=== PATIENT | male | born 1940 | race Caucasian/White ===

== ENCOUNTER 2023-03-18 13:53 | Inpatient (IN) | payer MEDICARE, OTHER, SELFPAY ==
[2023-03-18 13:54] VITALS: BP 126/62; PULSE 81; RESP 16; TEMP 36.4; O2SAT 98; BMI 31.6
--- NOTE | 2023-03-18 14:28 | EDS_ITS ---
HPI History of Present Illness Chief Complaint: Lower Extremity Injury Narrative Narrative: 82-year-old male past medical history of chronic left knee pain, states he is supposed to have surgery by Dr. Marroquin that keeps getting put off, was discharged from rehab in [place] yesterday afternoon. He had been there for few weeks after hospitalization. He states he has chronic left knee pain that is worse with weightbearing. He presents with his nephew because he had called his nephew because he was unable to ambulate and get off the toilet this morning. He denies any fevers or chills, but states he has so much pain in his left knee that he has been having problems even using his walker. While he states that he thinks home health care might be coming tomorrow, there are safety concerns regarding him being at home alone and being able to perform his activities of daily living secondary to his chronic left knee pain. [facility] Medical History (Updated 03/18/23 @ 16:43 by Zechariah Post MD) Asthma Benign prostate hyperplasia Chronic kidney disease COPD (chronic obstructive pulmonary disease) Emphysema lung GERD (gastroesophageal reflux disease) HTN (hypertension) Hypothyroid Major depression Muscle weakness Obesity Obstructive sleep apnea Pulmonary disease Pulmonary fibrosis Pulmonary HTN Home Medications albuterol sulfate 90 mcg/actuation aerosol inhaler 2 puff inhalation Q6H PRN ASTHMA 03/18/23 [History Last Taken Unknown] alfuzosin 10 mg tablet,extended release 24 hr 10 mg PO DAILY 03/18/23 [History Last Taken 03/18/23] atorvastatin 10 mg tablet 10 mg PO QHS 03/18/23 [History Last Taken 03/17/23] carboxymethylcellulose sodium 0.5 % eye drops in a dropperette 1 drp EACH EYE DAILY PRN dry eye(s) 03/18/23 [History Last Taken Unknown] cyanocobalamin (vitamin B-12) 1,000 mcg capsule 2,000 mcg PO DAILY 03/18/23 [History Last Taken 03/18/23] diclofenac sodium 1 % topical gel (Voltaren Arthritis Pain) 2 g topical DAILY 03/18/23 [History Last Taken 03/18/23] ergocalciferol (vitamin D2) 1,250 mcg (50,000 unit) capsule (Drisdol) 1,250 mcg PO QWEEK 03/18/23 [History Last Taken Unknown] finasteride 5 mg tablet 5 mg PO DAILY 03/18/23 [History Last Taken 03/18/23] fluticasone propionate 110 mcg/actuation HFA aerosol inhaler (Flovent HFA) 2 inh inhalation BID 03/18/23 [History Last Taken 03/18/23] hydrochlorothiazide 25 mg tablet 25 mg PO DAILY 03/18/23 [History Last Taken 03/17/23] ipratropium bromide 42 mcg (0.06 %) nasal spray 2 spray intranasal DAILY 03/18/23 [History Last Taken 03/18/23] levothyroxine 50 mcg tablet 50 mcg PO DAILY 03/18/23 [History Last Taken 03/18/23] loratadine 10 mg tablet (Allerclear) 10 mg PO DAILY 03/18/23 [History Last Taken 03/18/23] magnesium hydroxide 400 mg/5 mL oral suspension (Pritchard Milk of MagnEventMama) 30 ml PO DAILY PRN constipation 03/18/23 [History Last Taken Unknown] omeprazole 20 mg capsule,delayed release 20 mg PO DAILY 03/18/23 [History Last Taken 03/18/23] ondansetron 4 mg disintegrating tablet 4 mg PO Q8H PRN nausea and vomiting 03/18/23 [History Last Taken Unknown] polyethylene glycol 3350 17 gram/dose oral powder (ClearLax) 17 g PO DAILY 03/18/23 [History Last Taken 03/18/23] tramadol 50 mg tablet 50 mg PO Q8H PRN pain 03/18/23 [History Last Taken Unknown] Allergy/AdvReac Type Severity Reaction Status Date / Time allopurinol Allergy PT UNSURE Verified 03/18/23 15:10 OF REACTION ciprofloxacin Allergy PT UNSURE Verified 03/18/23 15:10 OF REACTION erythromycin base Allergy PT UNSURE Verified 03/18/23 15:10 OF REACTION levofloxacin Allergy PT UNSURE Verified 03/18/23 15:10 OF REACTION paroxetine Allergy PT UNSURE Verified 03/18/23 15:10 OF REACTION Penicillins Allergy PT UNSURE Verified 03/18/23 15:10 OF REACTION Sulfa (Sulfonamide Allergy PT UNSURE Verified 03/18/23 15:10 Antibiotics) OF REACTION Tetracyclines Allergy PT UNSURE Verified 03/18/23 15:10 OF REACTION Social History Smoking Status: Never smoker ROS ROS ED ROS Narrative Constitutional: No fever, no chills. HEENT: No sore throat. No neck pain. No loss of vision. No rhinorrhea. Cardiovascular: No chest pain. No palpitations. No pedal edema. Respiratory: No cough, no shortness of breath. Abdominal: No abdominal pain. No nausea. No vomiting. Genitourinary: No dysuria. No hematuria. Musculoskeletal: No myalgias. Left knee pain worse with standing and weightbearing. Neurologic: No headaches. No dizziness. No lightheadedness. Skin: No rash. No change in color. Psychiatric: No depression. No anxiety. EXAM Physical Exam Narrative Exam Narrative: Afebrile. Vital signs noted. HEENT: Normocephalic. Atraumatic. PERRL, EOMI. Neck soft and supple. No point tenderness or step off. Cardiovascular: Regular rate and rhythm. No murmurs, rubs, or gallops appreciated. Respiratory: No tachypnea. Lungs clear to auscultation bilaterally. Gastrointestinal: Abdomen soft, nontender, with normoactive bowel sounds. No rebound or guarding. Neurological: Awake. Alert. Nonfocal, nonlateralizing. Skin: No rash. Normal color. No pallor. Musculoskeletal: No pedal edema. Full range of motion extremities. However, range of motion of left knee limited secondary to pain. Flexion extension mechanisms intact bilaterally. Const Vital Signs: 03/18/23 13:54 Temperature 97.5 F L Temperature Source Temporal Pulse Rate 81 Respiratory Rate 16 Blood Pressure 126/62 H Blood Pressure Mean 83 Pulse Ox 98 Oxygen Delivery Method Room Air MDM MDM MDM Narrative Medical decision making narrative: I had a lengthy discussion with the patient and his nephew. They are very concerned about him being at home alone, at least overnight. He is willing to be placed in assisted living or in a rehab facility again. We will check baseline laboratories insofar as a CBC, BMP, and urinalysis. I will also obtain an EKG. Patient will be discussed with the hospitalist for observation. Social work is not available in the emergency department currently. I reviewed his laboratory work from today and he has a leukocytosis slightly elevated at 13.4 with hemoglobin normal at 13.8, platelet count slightly elevated at 552 which may be an acute phase reactant. His electrolyte panel is grossly unremarkable except for anion gap low at 3. BUN and creatinine are normal. Urinalysis is positive for urinary tract infection with 25-50 WBCs. I do not feel x-rays of the knee are indicated as he has had chronic pain. However, given his inability to ambulate and generalized weakness, I do feel that he requires admission. He has multiple allergies to multiple antibiotics. His urine will be sent for culture and he was started on aztreonam intravenously. I discussed patient with Dr. Bridges for admission as he will require placement. He would like him placed on the medical surgical floor full admit given his generalized weakness as well. Disposition is admit in stable condition. History & Record Review Discussion w/independent historian: Patient and Family (Nephew) Additional record(s) reviewed:: Prior ED visit Lab Data Attestation: I reviewed the patient's lab results. Labs: Laboratory Results - last 24 hr 03/18/23 03/18/23 15:15 15:23 WBC 13.4 H RBC 4.73 Hgb 13.8 Hct 42.4 MCV 89.6 MCH 29.2 MCHC 32.5 RDW Std Deviation 43.8 RDW Coeff of Josue 13.2 Plt Count 552 H MPV 8.8 Immature Gran % (Auto) 1.500 H Neut % (Auto) 65.7 Lymph % (Auto) 20.7 [place] % (Auto) 9.5 Eos % (Auto) 1.6 Baso % (Auto) 1.0 Absolute Neuts (auto) 8.8 H Absolute Lymphs (auto) 2.78 Nucleated RBC % 0 Sodium 138 Potassium 3.6 Chloride 105 Carbon Dioxide 30.0 Anion Gap 3 L BUN 14 Creatinine 0.87 Estim Creat Clear Calc 45.50 Est GFR (MDRD) Af Amer 107 Est GFR (MDRD) Non-Af 89 BUN/Creatinine Ratio 16.0 Glucose 91 Calcium 10.0 Urine Color Yellow Urine Clarity Cloudy Urine pH 6.0 Ur Specific [place] 1.015 Urine Protein 100 H Urine Glucose (UA) Normal Urine Ketones Negative Urine Occult Blood 50 H Urine Nitrite Positive H Urine Bilirubin Negative Urine Urobilinogen Normal Ur Leukocyte Esterase 500 H Urine RBC 0-5 SEEN Urine WBC 25-50 SEEN Ur Squamous Epith Cells 0 SEEN Urine Bacteria 1+ Urine Mucus 0 SEEN Discharge Plan Dx/Rx/DC Orders Clinical Impression: Inability to perform activities of daily living, UTI (urinary tract infection), Chronic pain of left knee, Weakness, At risk for falls Disposition Disposition: Acute Care [facility]
--- NOTE | 2023-03-18 14:31 | EKG12_ITS ---
Test Reason : Blood Pressure : / mmHG Vent. Rate : 078 BPM Atrial Rate : 078 BPM P-R Int : 212 ms QRS Dur : 130 ms QT Int : 402 ms P-R-T Axes : 023 -78 019 degrees QTc Int : 458 ms Sinus rhythm with 1st degree A-V block Right bundle branch block Left anterior fascicular block Bifascicular block Abnormal ECG Confirmed by JOHNATHON MOODY, LUCY ([id number]), graphic editor AKIKO ORTEGA ([id number]) on 03/19/2023 10:57:24 AM Referred By: Confirmed By:LUCY DIEGO MD
[2023-03-18 15:23] LABS: Absolute Lymphocyte Count 2.78 X10^3/uL (0.83-4.51); Absolute Neutrophil Count 8.8 X10^3/uL (2.0-7.7); Basophil# 0.13 X10^3/uL; Eosinophil# 0.21 X10^3/uL; Eosinophils% 1.6 % (0-5); Hematocrit 42.4 % (40-54); Hemoglobin 13.8 g/dL (13.0-16.5); Lymphocyte # 2.78 X10^3/ul (0.83-4.51); Lymphocyte % 20.7 % (19-41); Mean Corp Hgb Conc 32.5 g/dL (32-36); Mean Corpuscular Hgb 29.2 pg (27.0-32.0); Mean Corpuscular Volume 89.6 fL (80-94); Mean Platelet Vol. 8.8 fl (6.2-12.0); Monocyte# 1.28 X10^3/uL; Monocyte% 9.5 % (0-10); NRBC Flagged by Analyzer 0 % (0-5); Neutrophil # 8.83 X10^3/uL (2.7-7.7); Neutrophil % 65.7 % (47-70); Platelet Count 552 K/mm3 (150-450); RBC Distribution Width CV 13.2 % (11.6-14.6); RBC Distribution Width SD 43.8 fl (35.1-43.9); Red Blood Count 4.73 M/mm3 (4.6-6.2); White Blood Count 13.4 K/mm3 (4.4-11.0)
[2023-03-18 15:26] LABS: Mucous, Urine 0 SEEN /hpf (<or=2+); Squamous Epithelial Cells - UA 0 SEEN /hpf (0-5)
[2023-03-18 15:29] LABS: Color, Urine Yellow (Yellow); Glucose, Dipstick Normal (Normal); Ketone-Dipstick Negative (Negative); Leukocyte Esterase-Dipstick 500 /ul (Negative); Nitrite-Dipstick Positive (Negative); Occult Blood-Urine 50 /ul (Negative); Protein-Dipstick 100 mg/dl (Negative); Specific Gravity, Urine 1.015 (1.002-1.030); Urine Bilirubin Dipstick Negative (Negative); Urine Clarity Cloudy (Clear); Urine Urobilinogen Normal (Normal)
[2023-03-18 15:37] LABS: Red Blood Cells-Urine 0-5 SEEN /hpf (0-5); White Blood Cells 25-50 SEEN /hpf (0-5)
[2023-03-18 15:38] LABS: Anion Gap 3 (5-15); BUN 14 mg/dL (7-18); Chloride 105 mmol/L (98-107); Creatinine, Serum 0.87 mg/dL (0.70-1.30); EST Glomerular Filtration Rate 89 mL/min (>60); Est Glom Filt Rate - Afr Amer 107 mL/min (>60); Glucose 91 mg/dL (74-106); Potassium 3.6 mmol/L (3.5-5.1); Sodium Level 138 mmol/L (136-145)
[2023-03-18 15:39] LABS: Bacteria 1+ /hpf (None Seen)
[2023-03-18] MEDS: Aztreonam 2 GM in 0.9% Normal Saline (100mL MB+) 100 ML IV (16:19)
--- NOTE | 2023-03-18 16:37 | PCM.HP.STD ---
HPI - General General Date of Admission: 03/18/23 Date of Service: 03/18/23 Chief Complaint: Weakness, left knee pain HPI Narrative VIRAJ CROOKS, is a 82 M who presented to [facility] ED on 03/18/2023 from home with worsening left knee pain and debility. Patient seen at bedside in ED. Sitting comfortably in bed, conversing normally, no acute distress. Patient states that he lives at home by himself. Has had a few recent admissions over at [facility] for his chronic knee pain, was seen by orthopedics there at the end of January and current plan is for left knee replacement in May. States he did need to go to a longterm facility on his most recent discharge from [facility], was released home from there about 1 week ago. States he has continued to feel fairly weak at baseline and continues to have severe knee pain with ambulation, has not been able to do much for himself at home. His nephew brought him to the emergency department today because nephew did not feel comfortable with him being at home by himself. Patient currently reports mild left knee pain at rest. Takes primarily Tylenol to help with the pain, occasionally will take tramadol but limits this as best he can. He also uses Voltaren gel on a daily basis and this is helpful. Patient denies any fevers or chills. Denies any difficulty with urinating or decreased urine output. However, he notes that he has required a catheter on both recent admissions, and he went home with a catheter after his last admission. States he saw urology in the office and they were able to take the catheter out a few weeks ago. He denies any suprapubic pain or discomfort. He denies any chest pain, shortness of breath, abdominal pain or discomfort. No other acute concerns this time. [facility] Medical History Asthma Benign prostate hyperplasia Chronic kidney disease COPD (chronic obstructive pulmonary disease) Emphysema lung GERD (gastroesophageal reflux disease) HTN (hypertension) Hypothyroid Major depression Muscle weakness Obesity Obstructive sleep apnea Pulmonary disease Pulmonary fibrosis Pulmonary HTN Home Medications albuterol sulfate 90 mcg/actuation aerosol inhaler 2 puff inhalation Q6H PRN ASTHMA 03/18/23 [History Last Taken Unknown] alfuzosin 10 mg tablet,extended release 24 hr 10 mg PO DAILY urinary retention 03/18/23 [History Last Taken 03/18/23] atorvastatin 10 mg tablet 10 mg PO QHS cholesterol 03/18/23 [History Last Taken 03/17/23] carboxymethylcellulose sodium 0.5 % eye drops in a dropperette 1 drp EACH EYE DAILY PRN dry eye(s) 03/18/23 [History Last Taken Unknown] cyanocobalamin (vitamin B-12) 1,000 mcg capsule 2,000 mcg PO DAILY suppliment 03/18/23 [History Last Taken 03/18/23] diclofenac sodium 1 % topical gel (Voltaren Arthritis Pain) 2 g topical DAILY 03/18/23 [History Last Taken 03/18/23] ergocalciferol (vitamin D2) 1,250 mcg (50,000 unit) capsule (Drisdol) 1,250 mcg PO QWEEK supplement 03/18/23 [History Last Taken Unknown] finasteride 5 mg tablet 5 mg PO DAILY prostate 03/18/23 [History Last Taken 03/18/23] fluticasone propionate 110 mcg/actuation HFA aerosol inhaler (Flovent HFA) 2 inh inhalation BID asthma 03/18/23 [History Last Taken 03/18/23] hydrochlorothiazide 25 mg tablet 25 mg PO DAILY water pill 03/18/23 [History Last Taken 03/17/23] ipratropium bromide 42 mcg (0.06 %) nasal spray 2 spray intranasal DAILY 03/18/23 [History Last Taken 03/18/23] levothyroxine 50 mcg tablet 50 mcg PO DAILY thyroid 03/18/23 [History Last Taken 03/18/23] loratadine 10 mg tablet (Allerclear) 10 mg PO DAILY allergies 03/18/23 [History Last Taken 03/18/23] magnesium hydroxide 400 mg/5 mL oral suspension (Pritchard Milk of Magnesia) 30 ml PO DAILY PRN constipation 03/18/23 [History Last Taken Unknown] omeprazole 20 mg capsule,delayed release 20 mg PO DAILY gerd 03/18/23 [History Last Taken 03/18/23] ondansetron 4 mg disintegrating tablet 4 mg PO Q8H PRN nausea and vomiting 03/18/23 [History Last Taken Unknown] polyethylene glycol 3350 17 gram/dose oral powder (ClearLax) 17 g PO DAILY laxative 03/18/23 [History Last Taken 03/18/23] tramadol 50 mg tablet 50 mg PO Q8H PRN pain 03/18/23 [History Last Taken Unknown] Allergy/AdvReac Type Severity Reaction Status Date / Time allopurinol Allergy PT UNSURE Verified 03/18/23 15:10 OF REACTION ciprofloxacin Allergy PT UNSURE Verified 03/18/23 15:10 OF REACTION erythromycin base Allergy PT UNSURE Verified 03/18/23 15:10 OF REACTION levofloxacin Allergy PT UNSURE Verified 03/18/23 15:10 OF REACTION paroxetine Allergy PT UNSURE Verified 03/18/23 15:10 OF REACTION Penicillins Allergy PT UNSURE Verified 03/18/23 15:10 OF REACTION Sulfa (Sulfonamide Allergy PT UNSURE Verified 03/18/23 15:10 Antibiotics) OF REACTION Tetracyclines Allergy PT UNSURE Verified 03/18/23 15:10 OF REACTION Social History (Updated 03/18/23 @ 18:06 by Cathy Jensen) history of recent travel: No sexually active: No do you think of yourself as: straight/heterosexual current gender identity: male Smoking Status: Never smoker substance use type: does not use ROS Constitutional Constitutional: Reports fatigue and weakness; Denies change in weight, chills or fever(s) Eyes Eyes: Denies change in vision Cardiovascular Cardiovascular: Denies chest pain, dyspnea on exertion or edema Respiratory/Chest Respiratory/Chest: Denies cough, shortness of breath at rest or wheezing Gastrointestinal Gastrointestinal: Denies abdominal pain, constipation, diarrhea, nausea or vomiting Genitourinary Genitourinary: Denies burning urination, difficulty urinating, dysuria, urinary frequency, urinary hesitancy or urinary urgency Musculoskeletal Musculoskeletal: Reports joint pain and joint stiffness; Denies arthralgias, back pain or joint swelling Neurologic Neurologic: Reports abnormal gait; Denies dizziness, focal weakness, headache(s), numbness or paresthesias Vital Signs Vital Signs Vital Signs: 03/18/23 13:54 Temperature 97.5 F L Temperature Source Temporal Pulse Rate 81 Respiratory Rate 16 Blood Pressure 126/62 H Blood Pressure Mean 83 Pulse Ox 98 Oxygen Delivery Method Room Air Weight Weight: 73.482 kg Body Mass Index (BMI) 31.6 Physical Exam Const alert, oriented x3 and no apparent distress Constitutional Narrative: Elderly male, fairly flat affect, sitting up in bed, conversing normally, no acute distress. General Appearance: cooperative and comfortable HEENT normocephalic, head/scalp atraumatic, hearing grossly normal bilaterally, nasal mucous membranes and turbinates normal and moist oral mucous membranes Eyes PERRL, EOMs intact bilaterally and conjunctivae normal Neck full ROM, no lymphadenopathy and supple Lymph Lymphatic: no lymphadenopathy noted Chest inspection of chest normal Resp normal respiratory effort, normal air movement, no use of accessory muscles and clear to auscultation bilaterally Cardio regular rate, regular rhythm, no murmurs and peripheral pulses 2+ throughout GI normal to inspection, nondistended, normoactive bowel sounds, soft to palpation, non-tender and non-distended Negative for no CVA tenderness or external exam normal Bladder / Kidney Exam: No catheter in place and No bladder normal to palpation Back/Spine normal ROM Extremity normal to inspection and no pedal edema Extremity Narrative: Left knee appears grossly normal, no swelling, erythema or tenderness to palpation. Skin no rashes or lesions noted Neuro moves all extremities and no focal motor deficits Speech: speech normal Psych mental status grossly normal Results Lab / Micro Data 03/18/23 15:15 03/18/23 15:15 Labs: Laboratory Results - last 24 hr 03/18/23 15:15: WBC 13.4 H, RBC 4.73, Hgb 13.8, Hct 42.4, MCV 89.6, MCH 29.2, MCHC 32.5, RDW Std Deviation 43.8, RDW Coeff of Josue 13.2, Plt Count 552 H, MPV 8.8, Immature Gran % (Auto) 1.500 H, Neut % (Auto) 65.7, Lymph % (Auto) 20.7, [place] % (Auto) 9.5, Eos % (Auto) 1.6, Baso % (Auto) 1.0, Absolute Neuts (auto) 8.8 H, Absolute Lymphs (auto) 2.78, Nucleated RBC % 0, Sodium 138, Potassium 3.6, Chloride 105, Carbon Dioxide 30.0, Anion Gap 3 L, BUN 14, Creatinine 0.87, Estim Creat Clear Calc 45.50, Est GFR (MDRD) Af Amer 107, Est GFR (MDRD) Non-Af 89, BUN/Creatinine Ratio 16.0, Glucose 91, Calcium 10.0 03/18/23 15:23: Urine Color Yellow, Urine Clarity Cloudy, Urine pH 6.0, Ur Specific [place] 1.015, Urine Protein 100 H, Urine Glucose (UA) Normal, Urine Ketones Negative, Urine Occult Blood 50 H, Urine Nitrite Positive H, Urine Bilirubin Negative, Urine Urobilinogen Normal, Ur Leukocyte Esterase 500 H, Urine RBC 0-5 SEEN, Urine WBC 25-50 SEEN, Ur Squamous Epith Cells 0 SEEN, Urine Bacteria 1+, Urine Mucus 0 SEEN Assessment & Plan Assessment/Plan (1) Weakness: (2) Chronic pain of left knee: (3) UTI (urinary tract infection): PLAN: Plan Patient is an 82-year-old male who presented to [facility] ED on 03/18/2023 from home with worsening left knee pain and debility. 1. Debility, severe left knee osteoarthritis with chronic pain Patient lives at home by himself in [place]. On review of [facility] records, has had 2 admissions in the past 3 to 4 months, both at [facility] for worsening knee pain and functional decline. Required SNF placement after each admission. Nephew brought him to the ED today because he could not get out of bed. Left knee XR at [facility] in January showed tricompartmental OA worst in the medial compartment and moderate in degree, with diffuse osteopenia. Orthopedics followed there, recommendation was for knee replacement; patient states that is currently scheduled for early May. Pain control for the knee has been adequate but he generally feels weak at baseline. ? Admit under inpatient status to [facility]. PT/OT/case management consulted. Anticipate patient will need SNF placement on discharge. Continue tramadol 50 mg every 8 hours as needed, Tylenol as needed, Voltaren gel daily for pain control for knee. 2. Suspected UTI, history of urinary retention, BPH Patient follows with urology at [facility]. Has required Perry catheter on both recent admissions noted above, and was discharged with Perry catheter in place in late January. Apparently passed voiding trial in outpatient setting, Perry has been out for about 2 weeks now. UA on admit showed 500 leukocyte esterase, positive nitrates, 25-50 WBCs, 1+ bacteria. WBC count 13, otherwise afebrile and hemodynamically stable. Unable to find any urine culture data from previous admissions. ? Patient given 1 dose of aztreonam in the ED due to multiple listed allergies. Will start ceftriaxone tomorrow morning, low concern for severe allergy to cephalosporins. Urine culture pending. Trend CBC. Monitor bladder scans every 8 hours for now, have strong suspicion patient will need a Perry catheter during his admission. Renal/bladder ultrasound ordered. Continue home alfuzosin, finasteride. 3. Asthma/COPD on intermittent 2L NC at home, RICKY on 2L at night, pulmonary fibrosis Information obtained from documentation from recent [facility] admission. Satting in mid 90s on room air in the ED, no increased work of breathing noted. Notably intolerant of CPAP for RICKY per history. ? Continue home 2 L nasal cannula as needed here. Continue home albuterol as needed, fluticasone inhaler twice daily, loratadine. Chronic medical conditions: ? Hypertension: Continue home hydrochlorothiazide. ? Hyperlipidemia: Continue on statin. ? GERD: Continue PPI. ? Hand tremor: Left hand greater than right at baseline. Not on medication for this. ? Obesity: BMI 31 on admit. Complicates care, recovery and prognosis. ? Hypothyroidism: Continue home Synthroid. ? Vitamin B12 deficiency: Continue home supplement. DVT prophylaxis: Lovenox CODE STATUS: Full code, verified Expected disposition: SNF, TBD Total clinical time spent by myself addressing the patient's medical issues, reviewing all the data, and collaborating with patient's care team: 55 minutes. Charges/Coding Visit Charges Inpatient E&M: 90219 Init Hosp L2
[2023-03-18 16:45] VITALS: BP 107/53; PULSE 73; RESP 18; TEMP 36.3; O2SAT 94
[2023-03-18 17:52] VITALS: BMI 31.0
[2023-03-18 18:15] VITALS: BP 135/69; PULSE 80; RESP 14; TEMP 36.4; O2SAT 95
[2023-03-18 20:17] VITALS: BP 124/74; PULSE 78; RESP 16; TEMP 36.9; O2SAT 96
[2023-03-18] MEDS: Fluticasone Propionate 110 MCG AER.W.ADAP 2 PUFF INHALATION (22:05)
[2023-03-18] MEDS: Atorvastatin Calcium 10 MG Tablet PO (22:05)
[2023-03-18] MEDS: Albuterol 2.5 MG/3 ML VIAL.NEB. INHALATION (22:39)
[2023-03-18 22:40] VITALS: PULSE 71; RESP 20
[2023-03-19 01:55] VITALS: BP 121/69; PULSE 80; RESP 16; TEMP 36.7; O2SAT 97
--- NOTE | 2023-03-19 06:00 | US_ITS ---
STUDY: RENAL ULTRASOUND - COMPLETE REASON FOR EXAM: Male, 82 years old. h/o BPH, r/o hydronephrosis TECHNIQUE: Ultrasound evaluation of the kidneys was performed with real-time and static grimaldo-scale imaging. COMPARISON: None. FINDINGS: RIGHT KIDNEY: Normal location of the right kidney, which is normal in size. The right kidney measures 10.6 x 3.7 x 4.9 cm. There is a normal cortex of the right kidney. The renal cortex measures 1.6 cm. There is no right renal mass or cyst. There are no right renal calculi. There is mild hydronephrosis of the right kidney. DISTAL RIGHT URETER: There is non-visualization of the distal right ureter. There is no demonstrated right ureterovesical junction calculus. There is a visualized right ureteral jet. LEFT KIDNEY: Normal location of the left kidney, which is normal in size. The left kidney measures 11.5 x 4.6 x 5.7 cm. There is diffuse thinning of the renal cortex. The renal cortex measures 1.5 cm. There is no left renal mass or cyst. There are no left renal calculi. There is mild hydronephrosis of the left kidney. DISTAL LEFT URETER: There is non-visualization of the distal left ureter. There is no demonstrated left ureterovesical junction calculus. There is a visualized left ureteral jet. BLADDER: The distended urinary bladder has a volume of 461 ml. A small to moderate amount of soft tissue is present in the bladder floor most likely representing debris, however herniated components of the prostate gland can also have a similar appearance. The soft tissue is not vascular and does not appear to represent a malignancy, however urologic evaluation or cystoscopy may be required for definitive diagnosis. There is a normal wall thickness of the distended urinary bladder. There is no demonstrated mass within the urinary bladder. There are no demonstrated bladder calculi. US/Kidney and Bladder IMPRESSION: 1. A small to moderate amount of soft tissue is present in the bladder floor most likely representing debris, however herniated components of the prostate gland can also have a similar appearance. The soft tissue is not vascular and does not appear to represent a malignancy, however urologic evaluation or cystoscopy may be required for definitive diagnosis. 2. Mild bilateral hydronephrosis. Electronically Signed: Dariel Snell MD at 10:00 EST ,
[2023-03-19] MEDS: Levothyroxine 50 MCG Tablet PO (06:37)
[2023-03-19 06:44] LABS: Hematocrit 39.1 % (40-54); Hemoglobin 12.6 g/dL (13.0-16.5); Mean Corp Hgb Conc 32.2 g/dL (32-36); Mean Corpuscular Hgb 29.6 pg (27.0-32.0); Mean Platelet Vol. 8.8 fl (6.2-12.0); Platelet Count 503 K/mm3 (150-450); RBC Distribution Width CV 13.3 % (11.6-14.6); RBC Distribution Width SD 45.6 fl (35.1-43.9); Red Blood Count 4.25 M/mm3 (4.6-6.2)
[2023-03-19 07:21] LABS: Anion Gap 5 (5-15); BUN 15 mg/dL (7-18); BUN/Creat Ratio 18.9 RATIO (10-20); Calcium,Total 9.6 mg/dL (8.5-10.1); Chloride 105 mmol/L (98-107); Creatinine, Serum 0.79 mg/dL (0.70-1.30); EST Glomerular Filtration Rate 99 mL/min (>60); Est Glom Filt Rate - Afr Amer 120 mL/min (>60); Estimated Creatinine Clearance 39.58 ml/min; Glucose 100 mg/dL (74-106); Potassium 4.3 mmol/L (3.5-5.1); Sodium Level 140 mmol/L (136-145)
[2023-03-19 09:54] VITALS: BP 109/77; PULSE 79; RESP 18; TEMP 36.8; O2SAT 96
[2023-03-19] MEDS: Cyanocobalamin 500 MCG Tablet 2000 MCG PO (10:03)
[2023-03-19] MEDS: Loratadine 10 MG Tablet PO (10:03)
[2023-03-19] MEDS: Enoxaparin 40 MG/0.4 ML Syringe SC (10:03)
[2023-03-19] MEDS: Pantoprazole Sodium 20 MG Tablet PO (10:03)
[2023-03-19] MEDS: Tamsulosin HCl 0.4 MG Capsule PO (10:04)
[2023-03-19] MEDS: Fluticasone Propionate 110 MCG AER.W.ADAP 2 PUFF INHALATION ×2 (10:04→21:31)
[2023-03-19] MEDS: Polyethylene Glycol 3350 17 GM PACKET PO (10:05)
[2023-03-19] MEDS: Finasteride 5 MG Tablet PO (10:05)
[2023-03-19] MEDS: hydroCHLOROthiazide 25 MG Tablet PO (10:48)
[2023-03-19] MEDS: 0.9% Saline Lock 10 ML Syringe IV (10:48)
[2023-03-19] MEDS: Ceftriaxone 1 GM/50 ML BAG IV (10:48)
--- NOTE | 2023-03-19 10:50 | NURSING ---
This RN bladder scanned pt around 1015 after pt attempted to void and only voided around 40cc. Pt states he still feels like he has to void. PVR was 547cc. This RN informed Dr. Nurys Schofield and she ordered pt to be st. cathed x1 and lets see if flomax helps. Pt agreeable. This RN st. Cathed pt and obtained 500cc.
--- NOTE | 2023-03-19 12:40 | CASEMGMT ---
RN?CM?BODYBUILDER?CM?to room to meet with patient for initial transition planning/care coordination?assessment.?RN?CM?introduced self and role at [facility].? Pt voices understanding and consents to?assessment?at this time.? Pt sitting up in chair in room in no distress at this time.? Pt is A/O at this time and answers all questions appropriately.?? Care providers, pharmacy, and demographics verified/updated at this time. PCP: Dr Kev Newman Specialists: [facility] B[facility]. Dr Miles/ortho- [facility]. Pt has an appt on 03/27 to discuss upcoming surgery on 05/21. Dr Del Real[facility]. Preferred Pharmacy: [facility] Retail Insurance: [facility], [employer] Prescription Benefit:?Yes, [employer] Living Will/HPOA:?Has done LW and HCPOA, who is his nephewCarlos Eduardo LNOK: Nephew/Carlos Eduardo KEE Living Arrangements: Lives alone in one-story home w/5 steps to enter. Pt states he has been in/out of the hospital and has been to [facility] SNF x 2. He just discharged from [facility] to home on Sunday and was admitted to [facility] on Sunday. Pt states he normally can get around well @ home on his own, but when his knee acts up, then he has a difficult time getting up from chair and walking around. Pt states he generally is able to bath and dress himself and he manages his own medications. His groceries are delivered by [employer]. Transportation:?nephew or lady friend DME: ?States has the following DME:?extended tub bench, walker, rollator (he does not use), nebulizer, pulse ox, O2 @ 2 l/m @ HS from [facility]. ?Pt states no need for further DME at this time.? HHC/SNF: Pt was @ [facility] last year and has been to [facility] twice recently. He states he was just discharged home Sunday afternoon. He states [facility] set up HHC, but he was not sure what agency. He had RN CM check the paperwork from [facility]. Noted pt was set up with [facility]: [phone]. He states they also set up aides to come to his home during the day from [facility]: [phone]. He thinks going to an AL would be beneficial and he is aware it would be private-pay. He states he is a Alphonso prefers to go to [facility], stating, If I run out of money, the Alphonso's will pay the difference but was told they do not have any open AL rooms at this time. He states he keeps pushing the date of the surgery out, as he has been having to go to SNF's and he has been trying to schedule the surgeries to 60 days from last SNF stay for benefits. He states he does not know what to do, stating he does not feel he is safe to return home alone. Fatmata KAMARA, made aware of above. PLAN:??TBD. Redd BSN?RN?CM
[2023-03-19 16:08] VITALS: BP 128/72; PULSE 81; RESP 16; TEMP 36.8; O2SAT 97
--- NOTE | 2023-03-19 16:15 | PCM.PN.HOSP ---
Reason for Visit Reason for Visit: Knee pain/falls Subjective Subjective Mr. Gong is an 82 old white male who presents emergency department at [facility] on 03/18/2023 from home with worsening left knee pain and debility. [facility]. The patient reports he was released yesterday or the day prior and was doing quite well however when he got home he had considerable knee pain with ambulation and felt weak. He had not been able to do much for himself. His nephew brought him into the emergency department on the day of admission as he did not feel comfortable with him being at home by himself. Patient reported mild left knee pain at rest. He is scheduled for total knee arthroplasty to be done in May. He denies any difficulty with urinating or decreased urine output however he has had recent Perry catheters at both admission due to urinary retention. He saw urology as an outpatient and they were able to take his catheter out a few weeks ago. In the emergency department his vital signs were unremarkable. He had an elevated white count at 13.4 with thrombocytosis at 552,000. No left shift was present. His chemistry panel was unremarkable. His UA was suggestive of infection showing positive nitrites, leuk esterase, white cells, and 1+ bacteria. Cultures were sent and he was started on antibiotics for suspected urinary tract infection and admitted to the hospital for placement due to stability with decreased independence at home. This morning he is having some urinary retention. He does indicate he was on Flomax previously but it was not on his admitting med reconciliation. I did discuss with him reinitiating this and he thought this would be a good idea. He is unclear as to why this was discontinued previously. Objective Data Objective Data Vital Signs: Vital Signs Temp Pulse Resp BP Pulse Ox O2 Del Method O2 Flow Rate 98.2 F 81 16 128/72 H 97 Room Air 2 03/19/23 16:08 03/19/23 16:08 03/19/23 16:08 03/19/23 16:08 03/19/23 16:08 03/19/23 16:08 03/19/23 02:00 Oxygen Flow Rate (L/min) 2 Oxygen Delivery Method Room Air Weight: 72.121 kg Body Mass Index (BMI) 31.0 Intake & Output: Intake and Output for Last 24 Hours 12/02/23 12/03/23 12/04/23 23:59 23:59 23:59 Intake Total 340 / 590 860 / 860 Output Total 580 / 580 Balance 340 / 590 280 / 280 Lab / Micro Data 03/19/23 05:50 03/19/23 05:50 Labs: Laboratory Results - last 24 hr 03/19/23 05:50: WBC 12.0 H, RBC 4.25 L, Hgb 12.6 L, Hct 39.1 L, MCV 92.0, MCH 29.6, MCHC 32.2, RDW Std Deviation 45.6 H, RDW Coeff of Josue 13.3, Plt Count 503 H, MPV 8.8, Sodium 140, Potassium 4.3, Chloride 105, Carbon Dioxide 30.0, Anion Gap 5, BUN 15, Creatinine 0.79, Estim Creat Clear Calc 39.58, Est GFR (MDRD) Af Amer 120, Est GFR (MDRD) Non-Af 99, BUN/Creatinine Ratio 18.9, Glucose 100, Calcium 9.6 Micro: Microbiology 03/18/23 15:23 Urine, Clean Catch Urine Culture - Preliminary GNR lactose home management supervisor Radiography Diagnostic Testing: Radiology Impression Renal Ultrasound 03/19/23 06:00 IMPRESSION: 1. A small to moderate amount of soft tissue is present in the bladder floor most likely representing debris, however herniated components of the prostate gland can also have a similar appearance. The soft tissue is not vascular and does not appear to represent a malignancy, however urologic evaluation or cystoscopy may be required for definitive diagnosis. 2. Mild bilateral hydronephrosis. Electronically Signed: Dariel Snell MD at 10:00 EST Reading Location ID and State: [address] [place] [address] , Service support , Physical Exam Const alert, oriented x3, no apparent distress, healthy appearing and well nourished Constitutional Narrative: Obese, elderly, white male, sitting up in bed, nursing at bedside, patient appears comfortable and nontoxic, currently trying to urinate HEENT head/scalp atraumatic and moist oral mucous membranes HEENT Narrative: No thrush Head and Scalp: normocephalic Resp normal respiratory effort, no retractions, no use of accessory muscles and clear to auscultation bilaterally Auscultation: Negative for rales, rhonchi or wheezes Cardio regular rate, regular rhythm, S1 normal heart sound, S2 normal heart sound, no murmurs, no rub, no gallops and no clicks GI normal to inspection, nondistended, normoactive bowel sounds, soft to palpation and non-tender Extremity no clubbing, cyanosis or edema Extremity Narrative: Pedal pulses are 2+ Neuro oriented x3, moves all extremities and no focal motor deficits Neuro Narrative: Increased pain with movement of left lower extremity at the knee joint Speech: speech normal Psych affect normal Psych Narrative: Eye contact is good, patient interacts appropriately Assessment & Plan Assessment/Plan (1) At risk for falls: (2) Weakness: (3) Chronic pain of left knee: (4) UTI (urinary tract infection): (5) Inability to perform activities of daily living: PLAN: Plan Suspected urinary tract infection with urinary retention -Start home Flomax -Continue home Proscar -May need Perry catheter depending on urine output and retention -Continue antibiotics -Urine cultures are pending--> await sensitivities and identification and will narrow antibiotics as able with transition to oral Falls/debility -This seems all related to his left lower extremity knee pain -PT/OT following -Case management/social work following -Patient will need placement at discharge and will need a 3 midnight hospitalization with the earliest date of discharge if medically stable being 03/21/2023 Severe left knee osteoarthritis -Plan is for operative intervention with total knee arthroplasty in May -Encourage patient to keep this scheduled History of asthma/COPD/pulmonary fibrosis -Intermittently uses 2 L nasal cannula at home -As needed a aerosols -Continue home loratadine RICKY -Patient's been intolerant of CPAP previously -Continue nocturnal oxygen at 2 L Hypertension -Continue home hydrochlorothiazide Hyperlipidemia -Continue home statin GERD -Continue PPI Hypothyroidism -Continue home Synthroid Vitamin B12 deficiency -Continue home supplement Constipation -Continue home MiraLAX Obesity -BMI is 31.1 -Recommend weight loss -Complicates treatment, prognosis, outcomes DVT prophylaxis -Continue Lovenox CODE STATUS Full code Charges/Coding Visit Charges Inpatient E&M: 20046 Subs Hosp L2
--- NOTE | 2023-03-19 16:18 | CHAPLAIN ---
Type of Pastoral Visit _x__ Initial Visit ___ Follow-up Visit ___ On-call Visit ___ General Patient Visit ___ Spiritual Assessment ___ Family Conference ___ Bereavement ___ Rapid Response ___ Code Blue ___ Other (describe below) Pastoral Care Referral From _x__ Patient ___ Family ___ Nurse ___ Physician ___ Tree [employer] Sh[employer] Worker ___ Ekg Tech ___ Other (describe below) Sacrament/Intervention _x__ Active listening ___ Anointing ___ Nondenominational ___ Bereavement ___ Communion _x__ Dolores exploration ___ _x__ Life review _x__ Prayer ___ Reconciliation ___ Sacrament of Sick _x__ Supportive presence ___ Wedding ___ Other (describe below) Pastoral Comments patient is welcoming, answers questions, and asks questions; patient relates some life experiences and dolores encounters; pt welcomes presence for someone to talk with and for the prayers
[2023-03-19] MEDS: Acetaminophen 325 MG Tablet 650 MG PO (16:35)
--- NOTE | 2023-03-19 17:30 | CASEMGMT ---
Social Work Handoff received from Latasha TREVINO CM of likely need for placement at time of discharge. Discussions occurred regarding SNF and assisted living. Concern present as patient is within a 100 day benefit period and was just discharged from [facility] on Sunday03.17.23. This mortgage or loan underwriter spoke with Barbara at [facility]. Patient's original admit date was 01.04.23. Used 26 days the first episode, and 27 days the second episode, discharging home on 03.17.23. Patient has 47 days left of 100 day benefit period. Per Barbara, there are no skilled beds available, half-way care is full, as well as assisted living. Patient was given an application for the independent living while he was a skilled resident, but patient did not follow through with the application. Barbara discussed that once someone is part of the living community, those individuals do have some president over community based referrals. Met with patient to review discharge planning. Reviewed what found about about patient's available SNF benefits. Patient reports to be aware of this, but still not sure what to do, as wants to have surgery and would like to have full benefit period for the upcoming surgery. Educated patient to get a new benefit period will need to be out of the hospital as an inpatient or a SNF for 60 days. Discussed assisted living, which patient reports to have money for but reports is not ready to spend it as feels might need the money in the future for intermediate accountant assisted care needs. Broached the independent living application for the [facility], which patient reports to have but has not gotten around to doing as wants someone to scribe for the patient. Patient appeared to have a hard time with making a decision on what to do, but did take the list of SNF options this mortgage or loan underwriter provided from [facility]. Patient's nephew Carlos Eduardo Weir arrived to the room and joined conversation. Carlos Eduardo also looked at the list. Reviewed with Carlos Eduardo the education this mortgage or loan underwriter provided to patient. This mortgage or loan underwriter discussed with patient that is is easy to worry about intermediate accountant needs, but to help make current decision making easier, encouraged the focus to be on the here and now; what does patient feel to need to be safe at time of discharge. Reinforced that cannot change Medicare Rules, and have to work within the constraints of what is available. Patient and Carlos Eduardo indicated need to further discuss. Informed patient would be back tomorrow for choices as will need to continue with discharge planning. Plan: SW to follow up again with patient on 03.20.23 to determine referrals to SNF vs Assisted Living. -CAMERON Minor
[2023-03-19] MEDS: Glycerin/Hypromellose/PEG400 15 ml Bottle 1 DRP EACH EYE ×2 (17:55→21:31)
[2023-03-19] MEDS: Menthol/Lanolin/Calamine/Znox 113 GM Tube 1 APPLIC TOPICAL (21:31)
[2023-03-19] MEDS: Atorvastatin Calcium 10 MG Tablet PO (21:31)
[2023-03-19 21:49] VITALS: BP 112/72; PULSE 78; RESP 18; TEMP 36.5; O2SAT 95
[2023-03-20] MEDS: Glycerin/Hypromellose/PEG400 15 ml Bottle 1 DRP EACH EYE ×6 (02:08→23:40)
[2023-03-20 03:49] VITALS: BP 120/68; PULSE 73; RESP 16; TEMP 36.6; O2SAT 94
[2023-03-20] MEDS: Levothyroxine 50 MCG Tablet PO (05:40)
[2023-03-20 07:29] LABS: Absolute Lymphocyte Count 2.34 X10^3/uL (0.83-4.51); Absolute Neutrophil Count 5.5 X10^3/uL (2.0-7.7); Basophil# 0.08 X10^3/uL; Basophil% 0.9 % (0-1); Eosinophil# 0.29 X10^3/uL; Eosinophils% 3.1 % (0-5); Hematocrit 39.5 % (40-54); Hemoglobin 12.8 g/dL (13.0-16.5); Lymphocyte # 2.34 X10^3/ul (0.83-4.51); Lymphocyte % 25.2 % (19-41); Mean Corp Hgb Conc 32.4 g/dL (32-36); Mean Corpuscular Hgb 29.3 pg (27.0-32.0); Mean Corpuscular Volume 90.4 fL (80-94); Mean Platelet Vol. 8.3 fl (6.2-12.0); Monocyte# 0.94 X10^3/uL; Monocyte% 10.1 % (0-10); NRBC Flagged by Analyzer 0 % (0-5); Neutrophil # 5.54 X10^3/uL (2.7-7.7); Neutrophil % 59.5 % (47-70); Platelet Count 461 K/mm3 (150-450); RBC Distribution Width CV 13.3 % (11.6-14.6); RBC Distribution Width SD 44.6 fl (35.1-43.9); Red Blood Count 4.37 M/mm3 (4.6-6.2); White Blood Count 9.3 K/mm3 (4.4-11.0)
[2023-03-20 08:25] VITALS: BP 110/70; PULSE 77; RESP 18; TEMP 36.9; O2SAT 93
[2023-03-20] MEDS: Enoxaparin 40 MG/0.4 ML Syringe SC (08:29)
[2023-03-20] MEDS: Finasteride 5 MG Tablet PO (08:30)
[2023-03-20] MEDS: Loratadine 10 MG Tablet PO (08:30)
[2023-03-20] MEDS: Menthol/Lanolin/Calamine/Znox 113 GM Tube 1 APPLIC TOPICAL ×2 (08:30→21:04)
[2023-03-20] MEDS: Acetaminophen 325 MG Tablet 650 MG PO ×3 (08:30→21:03)
[2023-03-20] MEDS: Pantoprazole Sodium 20 MG Tablet PO (08:30)
[2023-03-20] MEDS: Polyethylene Glycol 3350 17 GM PACKET PO (08:30)
[2023-03-20] MEDS: hydroCHLOROthiazide 25 MG Tablet PO (08:30)
[2023-03-20] MEDS: Cyanocobalamin 500 MCG Tablet 2000 MCG PO (08:30)
[2023-03-20] MEDS: Tamsulosin HCl 0.4 MG Capsule PO (08:30)
[2023-03-20] MEDS: 0.9% Saline Lock 10 ML Syringe IV ×2 (09:53→16:41)
[2023-03-20] MEDS: Ceftriaxone 1 GM/50 ML BAG IV (09:53)
[2023-03-20] MEDS: Fluticasone Propionate 110 MCG AER.W.ADAP 2 PUFF INHALATION ×2 (10:04→21:03)
--- NOTE | 2023-03-20 10:33 | CASEMGMT ---
RN SHIMA NOTE: Call placed to [facility] @ [phone]. They were notified pt has been admitted to [facility] and that SNF is anticipated @ discharge, but not confirmed. She asks that they be notified once final d/c plan is confirmed. Call placed to [facility] and spoke w/Jade. She states she spoke w/pt on Mar 16 and talked about their rates, but they had not heard back from pt, so no services were set up. Redd BUCKLEY RN CM
--- NOTE | 2023-03-20 11:10 | CASEMGMT ---
Social Work Presented to patient's room to obtain preferences for aftercare. Patient reports has made no choices. Gently reminded patient of the plan for patient and his nephew to discuss choices and this personal lines underwriter would be back today to get said choices. Patient voiced would have to be later today as the nephew is working, and had not had a chance to discuss. Reminded patient this personal lines underwriter left patient and nephew last evening with list and directions to discuss further. Patient agreed this did happen. Patient reported would call the nephew and discuss, and this personal lines underwriter can come back after noon. Patient did comment this is happening fast. Educated that have to work on discharge planning, so it is an expectation that referrals need to be started today. [facility]. During social work visit, patient talkative, quite reflective on life experiences and where patient's purpose in life is at now. Patient processed what it is like to age, and worries about the future. This personal lines underwriter did explore whether patient has thought of suicide. Patient reported has thought of suicide, but not my thing and would not be something patient has an intent to do. Patient denies any history of suicide attempts or intent. Reports to know his nephew and a few cousins would be upset if patient by suicide and would not want to do this to the family. Discussed with patient finding lori in small things each day, which patient reports to still feel able to do. Patient reports though, is at the age where deciding whether would want to be resuscitated if heart stopped beating. Much emotional support provided to patient this visit. Patient voiced knowing that has things to offer others and stated I even fascinated you during the conversation about patient's life and hobbies. Plan: Working on SNF placement and patient knows to provide choices today. -CAMERON Minor
--- NOTE | 2023-03-20 11:29 | PN.HOSP_ITS ---
Reason for Visit Reason for Visit: Debility Subjective Subjective No issues overnight. We did require Perry placement yesterday afternoon secondary to urinary retention. I suspect this is chronic and based on his history he has frequent issues with urinary retention and follows with Dr. Shelly rivas at [facility] for urological issues. Objective Data Objective Data Vital Signs: Vital Signs Temp Pulse Resp BP Pulse Ox O2 Del Method O2 Flow Rate 98.5 F 77 18 110/70 93 Room Air 2 03/20/23 08:25 03/20/23 08:25 03/20/23 08:25 03/20/23 08:25 03/20/23 08:25 03/20/23 08:25 03/19/23 02:00 Oxygen Flow Rate (L/min) 2 Oxygen Delivery Method Room Air Weight: 72.121 kg Body Mass Index (BMI) 31.0 Intake & Output: Intake and Output for Last 24 Hours 03/18/23 03/19/23 03/20/23 23:59 23:59 23:59 Intake Total 340 / 590 1100 / 1100 50 / 50 Output Total 780 / 780 1150 / 1150 Balance 340 / 590 320 / 320 -1100 / -1100 Lab / Micro Data 03/20/23 07:22 03/19/23 05:50 Labs: Laboratory Results - last 24 hr 03/20/23 07:22: WBC 9.3, RBC 4.37 L, Hgb 12.8 L, Hct 39.5 L, MCV 90.4, MCH 29.3, MCHC 32.4, RDW Std Deviation 44.6 H, RDW Coeff of Josue 13.3, Plt Count 461 H, MPV 8.3, Immature Gran % (Auto) 1.200 H, Neut % (Auto) 59.5, Lymph % (Auto) 25.2, Gibson % (Auto) 10.1 H, Eos % (Auto) 3.1, Baso % (Auto) 0.9, Absolute Neuts (auto) 5.5, Absolute Lymphs (auto) 2.34, Nucleated RBC % 0 Micro: Microbiology 03/18/23 15:23 Urine, Clean Catch Urine Culture - Preliminary GNR lactose sap abap developer Physical Exam Const alert, oriented x3, no apparent distress, healthy appearing and well nourished Constitutional Narrative: Obese, elderly, white male, sitting up in bed, watching television, patient appears comfortable and nontoxic HEENT normocephalic, head/scalp atraumatic, hearing grossly normal bilaterally and moist oral mucous membranes Resp normal respiratory effort, normal air movement, no retractions, no use of accessory muscles and clear to auscultation bilaterally Auscultation: Negative for rales, rhonchi or wheezes Cardio regular rate, regular rhythm, S1 normal heart sound, S2 normal heart sound, no murmurs, no rub, no gallops and no clicks GI normal to inspection, nondistended, normoactive bowel sounds, soft to palpation and non-tender Extremity normal to inspection, no clubbing, cyanosis or edema and no pedal edema Extremity Narrative: Pedal pulses are 2+ Neuro oriented x3, moves all extremities and no focal motor deficits Speech: speech normal Psych mental status grossly normal and affect normal Psych Narrative: Eye contact is good, patient interacts appropriately Assessment & Plan Assessment/Plan (1) At risk for falls: (2) Weakness: (3) Chronic pain of left knee: (4) UTI (urinary tract infection): (5) Inability to perform activities of daily living: PLAN: Plan Gram-negative urinary tract infection with urinary retention -Continue Flomax -Continue home Proscar -Perry placed and will discharge with Perry and have him follow-up with Dr. Rashaun cassidy after discharge--> his urologist -Ultrasound did show some mild bilateral hydro with catheter not in place -Cultures thus far growing gram-negative madison lactose sap abap developer with sensitivities and identification is pending -Continue antibiotics as ordered Falls/debility -This seems all related to his left lower extremity knee pain -PT/OT following -Case management/social work following -Patient will need placement at discharge and will need a 3 midnight hospitalization with the earliest date of discharge if medically stable being 03/21/2023 Severe left knee osteoarthritis -Plan is for operative intervention with total knee arthroplasty in May -Encourage patient to keep this scheduled History of asthma/COPD/pulmonary fibrosis -Intermittently uses 2 L nasal cannula at home -As needed a aerosols -Continue home loratadine RICKY -Patient's been intolerant of CPAP previously -Continue nocturnal oxygen at 2 L Hypertension -Continue home hydrochlorothiazide Hyperlipidemia -Continue home statin GERD -Continue PPI Hypothyroidism -Continue home Synthroid Vitamin B12 deficiency -Continue home supplement Constipation -Continue home MiraLAX Obesity -BMI is 31.1 -Recommend weight loss -Complicates treatment, prognosis, outcomes DVT prophylaxis -Continue Lovenox CODE STATUS Full code Charges/Coding Visit Charges Inpatient E&M: 35897 Subs Hosp L2
--- NOTE | 2023-03-20 14:00 | CASEMGMT ---
Social Work - Discharge Planning Received call from Daylin with [facility] inquiring whether patient will be returning home or to a SNF. Informed that DC planning is still in process. Daylin reports will not close out patient's referral with [facility] just yet then. Daylin asks for update on final decision. Call back number is [phone]. Note, during conversation with patient and patient's nephew on 03.19.23, both asked about [facility] and this option for rehab. Updated at that time unsure what bed availability would be like, but this curriculum writer can check. Reinforced at that time, this would be a short term option only. Message left for Radha in TCU of inquiry. This curriculum writer heard back from Radha at [facility] today and patient can be accepted, with a bed available on 03.21.23. Returned to patient's room to finalize choices for SNF. Patient reports talked with the nephew and it would be closer for patient's nephew if patient chose to go with a [place] facility, but patient also thinking of the aftercare needs, and being closer to [place] might be better for follow up. Educated that patient can be accepted to [facility], but reinforced this is short term. Patient vacillated back and forth on this option, initially wanting to do this, and then changing mind that maybe wants to go somewhere and settle in until has surgery in May. Patient reported that he nor the nephew have a lot of knowledge of the facilities and wishes this curriculum writer knew more, such as if the food is good. After discussion, patient asked this curriculum writer to start at the top of the list. Choices are as follows: [facility], [facility] in [place], and then [facility]. Patient does want to know if either of the community based SNFs provide for transportation to appointments. Agreed to inquire on this, but if not would be patient's responsibility to pay for ambulette services. Patient reports to be familiar with this from prior stays at [facility]. Patient reports to have money to pay for things, but trying to be smart with financial choices. Patient talkative and admits to going in tangents in conversation. Patient expressed appreciation for giving patient time to sort through thoughts. Gently discussed with patient that it is a positive thing to be future focused, and wanting to ensure stability for self, but there can be tipping point where this become ruminations and worry, turning into anxiety. Patient agreed that tends to worry. Encouraged patient to focus on one thing at at time, and on most immediate need when thoughts start to become overwhelming with uncertainly on what choices to make. Updated DC medical billing assistant to community based SNF choices, and question about transportation. Plan: Working on SNF and referrals are being sent out today. [facility] but patient's third choice. -CAMERON Minor
--- NOTE | 2023-03-20 14:09 | CASEMGMT ---
Addendum entered by Jaylny Patten 03/20/23 16:54: Discharge Planning Patient has been accepted by [facility]. SW updated. Jaylyn Patten, Discharge Planning Asst. Original Note: [facility] Jaylyn Patten, Discharge Planning Asst.
[2023-03-20 14:31] VITALS: BP 93/67; PULSE 79; RESP 18; TEMP 36.9; O2SAT 95
[2023-03-20 18:44] VITALS: BP 106/64; PULSE 79
[2023-03-20 20:15] VITALS: BP 129/73; PULSE 76; RESP 16; TEMP 36.6; O2SAT 95
[2023-03-20] MEDS: Atorvastatin Calcium 10 MG Tablet PO (21:03)
[2023-03-20] MEDS: traMADol 50 MG Tablet PO (23:57)
[2023-03-21 02:30] VITALS: BP 119/71; PULSE 71; RESP 16; TEMP 36.8; O2SAT 98
[2023-03-21] MEDS: Glycerin/Hypromellose/PEG400 15 ml Bottle 1 DRP EACH EYE ×4 (02:54→14:33)
[2023-03-21] MEDS: Levothyroxine 50 MCG Tablet PO (05:31)
[2023-03-21] MEDS: Acetaminophen 325 MG Tablet 650 MG PO ×2 (05:31→20:16)
[2023-03-21 07:22] VITALS: O2SAT 98
[2023-03-21 07:30] VITALS: BP 139/60; BP 139/80; PULSE 65; RESP 18; TEMP 36.5; O2SAT 100
[2023-03-21 08:48] LABS: Absolute Lymphocyte Count 2.57 X10^3/uL (0.83-4.51); Absolute Neutrophil Count 5.3 X10^3/uL (2.0-7.7); Basophil# 0.08 X10^3/uL; Basophil% 0.8 % (0-1); Eosinophil# 0.32 X10^3/uL; Eosinophils% 3.4 % (0-5); Hematocrit 39.1 % (40-54); Hemoglobin 12.5 g/dL (13.0-16.5); Lymphocyte # 2.57 X10^3/ul (0.83-4.51); Mean Corpuscular Hgb 29.2 pg (27.0-32.0); Mean Corpuscular Volume 91.4 fL (80-94); Mean Platelet Vol. 9.3 fl (6.2-12.0); Monocyte% 11.6 % (0-10); NRBC Flagged by Analyzer 0 % (0-5); Neutrophil # 5.28 X10^3/uL (2.7-7.7); Neutrophil % 55.4 % (47-70); Platelet Count 497 K/mm3 (150-450); RBC Distribution Width CV 13.4 % (11.6-14.6); RBC Distribution Width SD 45.1 fl (35.1-43.9); Red Blood Count 4.28 M/mm3 (4.6-6.2); White Blood Count 9.5 K/mm3 (4.4-11.0)
[2023-03-21 09:17] LABS: Anion Gap 6 (5-15); BUN 12 mg/dL (7-18); Calcium,Total 9.1 mg/dL (8.5-10.1); Chloride 103 mmol/L (98-107); Creatinine, Serum 0.63 mg/dL (0.70-1.30); EST Glomerular Filtration Rate 129 mL/min (>60); Est Glom Filt Rate - Afr Amer 156 mL/min (>60); Estimated Creatinine Clearance 39.58 ml/min; Glucose 95 mg/dL (74-106); Potassium 3.9 mmol/L (3.5-5.1); Sodium Level 135 mmol/L (136-145)
--- NOTE | 2023-03-21 09:25 | TREXTCAR_ITS ---
Diet Diet Order/Speech Therapy: 03/18/23 17:44 Diet: Cardiac - Heart Healthy Food consistency:: Easy to Chew Liquid Consistency:: Regular/Thin Is pt able to select menu?: Yes Routine Orders/Code Status Suppository Type: Dulcolax 10mg Suppository Frequency: Daily PRN Wound(s) Rt swift: Wound Type: Abrasion coccyx: Wound Type: Pressure Injury Therapies Weight Bearing: Weight bearing as tolerated Extremity Affected:: Left Lower Physical Therapy: Eval and Treat Occupational Therapy: Eval and Treat Speech Therapy: Eval and Treat Problem/Diagnosis (1) UTI (urinary tract infection): Status: Acute Code(s): N39.0 - Urinary tract infection, site not specified Allergies/Procedures Done in Hospital Allergies allopurinol Allergy (Verified 03/18/23 15:10) PT UNSURE OF REACTION ciprofloxacin Allergy (Verified 03/18/23 15:10) PT UNSURE OF REACTION erythromycin base Allergy (Verified 03/18/23 15:10) PT UNSURE OF REACTION levofloxacin Allergy (Verified 03/18/23 15:10) PT UNSURE OF REACTION paroxetine Allergy (Verified 03/18/23 15:10) PT UNSURE OF REACTION Penicillins Allergy (Verified 03/18/23 15:10) PT UNSURE OF REACTION Sulfa (Sulfonamide Antibiotics) Allergy (Verified 03/18/23 15:10) PT UNSURE OF REACTION Tetracyclines Allergy (Verified 03/18/23 15:10) PT UNSURE OF REACTION Type of Care/Length of Stay Estimated LOS: Convalescent Care Less Than 30 days Type of Care Needed: Skilled Rehab Potential: Good Prognosis: Good Additional Orders/Day of Discharge Day of Discharge: 03/21/23 Discharge Plan Admission Admit Date/Time: 03/18/23 16:50 Primary Reason for Your Visit: Asymptomatic bacteriuria. Debility due to severe knee arthritis Attending Provider: Yusuf Nelson Primary Care Provider: CARMEN HEAD Consulting Providers: Channing Bridges; Radha Schofield; Will Roque Instructions Additional Instructions / Restrictions: Discharge with Perry catheter. Patient on Flomax. Follow-up outpatient urologi st Dr. Bravo for BPH at [facility] for spontaneous voiding trial. Discharge Orders/Prescriptions Prescriptions: New acetaminophen 325 mg Tablet 650 mg PO Q6H PRN PRN (Reason: Pain 1-10 Or Fever>100.7) Qty: 0 0RF tamsulosin 0.4 mg Capsule 0.4 mg PO DAILY@0830 Qty: 0 0RF Continued albuterol sulfate 90 mcg/actuation HFA aerosol inhaler 2 puff INHALATION Q6H PRN (Reason: ASTHMA) atorvastatin 10 mg tablet 10 mg PO QHS finasteride 5 mg tablet 5 mg PO DAILY ipratropium bromide 42 mcg (0.06 %) spray,non-aerosol 2 spray INTRANASAL DAILY levothyroxine 50 mcg tablet 50 mcg PO DAILY omeprazole 20 mg capsule,delayed release(DR/EC) 20 mg PO DAILY tramadol 50 mg tablet 50 mg PO Q8H PRN (Reason: pain) hydrochlorothiazide 25 mg tablet 25 mg PO DAILY fluticasone propionate [Flovent HFA] 110 mcg/actuation HFA aerosol inhaler 2 inh inhalation BID loratadine [Allerclear] 10 mg tablet 10 mg PO DAILY polyethylene glycol 3350 [ClearLax] 17 gram/dose powder 17 g PO DAILY cyanocobalamin (vitamin B-12) 1,000 mcg capsule 2,000 mcg PO DAILY ergocalciferol (vitamin D2) [Drisdol] 1,250 mcg (50,000 unit) capsule 1,250 mcg PO QWEEK diclofenac sodium [Voltaren Arthritis Pain] 1 % gel 2 g topical DAILY Rx Instructions: TO LEFT KNEE ondansetron 4 mg tablet,disintegrating 4 mg PO Q8H PRN (Reason: nausea and vomiting) carboxymethylcellulose sodium 0.5 % dropperette 1 drp EACH EYE DAILY PRN (Reason: dry eye(s)) Discontinued alfuzosin 10 mg tablet extended release 24 hr 10 mg PO DAILY magnesium hydroxide [Pritchard Milk of Magnesia] 400 mg/5 mL suspension 30 ml PO DAILY PRN (Reason: constipation) Referrals / Follow Up: CARMEN HEAD [Other] - In 1 Week CARMEN HEAD [Other] Disposition Disposition (needs filled in before D/C Order can be placed): [facility]
[2023-03-21] MEDS: Tamsulosin HCl 0.4 MG Capsule PO (09:45)
[2023-03-21] MEDS: Menthol/Lanolin/Calamine/Znox 113 GM Tube 1 APPLIC TOPICAL ×2 (09:45→20:13)
[2023-03-21] MEDS: Fluticasone Propionate 110 MCG AER.W.ADAP 2 PUFF INHALATION ×2 (09:46→20:13)
[2023-03-21] MEDS: Loratadine 10 MG Tablet PO (09:46)
[2023-03-21] MEDS: Enoxaparin 40 MG/0.4 ML Syringe SC (09:47)
[2023-03-21] MEDS: hydroCHLOROthiazide 25 MG Tablet PO (09:47)
[2023-03-21] MEDS: Finasteride 5 MG Tablet PO (09:48)
[2023-03-21] MEDS: Pantoprazole Sodium 20 MG Tablet PO (09:48)
[2023-03-21] MEDS: Polyethylene Glycol 3350 17 GM PACKET PO (09:48)
[2023-03-21] MEDS: Cyanocobalamin 500 MCG Tablet 2000 MCG PO (09:49)
[2023-03-21] MEDS: Ceftriaxone 1 GM/50 ML BAG IV (10:06)
--- NOTE | 2023-03-21 10:42 | CASEMGMT ---
Social Work SW met with pt to discuss advance directives.? Pt confirms he has completed a living will and health care POA naming his nephew Carlos Eduardo Weir.? Pt notified that documents are not on file at [facility] and SW requested they be brought in for scanning into the EMR.? YURI Barajas
--- NOTE | 2023-03-21 10:55 | CASEMGMT ---
Social Work SW met with pt and introduced self and role of SW. SW updated pt that [facility] is able to accept and provide transportation to needed appointments. Pt is agreeable to go to [facility] at time of discharge. Physician updated that pt has an accepting facility and can dc when medically ready. Plan: [facility], when medically ready YURI Barajas
--- NOTE | 2023-03-21 13:22 | CON.PCM.ID_ITS ---
Assessment & Plan Assessment/Plan (1) UTI (urinary tract infection): PLAN: Patient with asymptomatic bacteriuria, at this point be reasonable to hold off on antimicrobial therapy and observe off antibiotics. HPI Consult Data Date of Consult: 03/21/23 HPI Narrative Reason for Consultation: Concern of urinary tract infection with ESBL positive E. coli in the urine HPI Narrative: VIRAJ CROOKS, is a 82 M who presents past medical history of osteoarthritis, BPH with history of urinary retention who was admitted earlier this week with knee pain exacerbation of his osteoarthritis. No fevers or chills. No significant constitutional symptoms. Patient was found to have urinary retention and a Perry catheter was placed. Patient does have underlying BPH and has had Perry catheters in place in the recent past and sees a urologist in [place]. Denies any fevers or chills. No urinary symptoms such as dysuria prior to come to the hospital. Patient is relatively asymptomatic from a standpoint other than his urinary retention. He currently has a Perry catheter still in place since admission. Currently on ceftriaxone. Microbiology data reviewed [facility] Medical History Asthma Benign prostate hyperplasia Chronic kidney disease COPD (chronic obstructive pulmonary disease) Emphysema lung GERD (gastroesophageal reflux disease) HTN (hypertension) Hypothyroid Major depression Muscle weakness Obesity Obstructive sleep apnea Pulmonary disease Pulmonary fibrosis Pulmonary HTN Home Medications albuterol sulfate 90 mcg/actuation aerosol inhaler 2 puff inhalation Q6H PRN ASTHMA 03/18/23 [History Last Taken Unknown] alfuzosin 10 mg tablet,extended release 24 hr 10 mg PO DAILY urinary retention 03/18/23 [History Last Taken 03/18/23] atorvastatin 10 mg tablet 10 mg PO QHS cholesterol 03/18/23 [History Last Taken 03/17/23] carboxymethylcellulose sodium 0.5 % eye drops in a dropperette 1 drp EACH EYE DAILY PRN dry eye(s) 03/18/23 [History Last Taken Unknown] cyanocobalamin (vitamin B-12) 1,000 mcg capsule 2,000 mcg PO DAILY suppliment 03/18/23 [History Last Taken 03/18/23] diclofenac sodium 1 % topical gel (Voltaren Arthritis Pain) 2 g topical DAILY 03/18/23 [History Last Taken 03/18/23] ergocalciferol (vitamin D2) 1,250 mcg (50,000 unit) capsule (Drisdol) 1,250 mcg PO QWEEK supplement 03/18/23 [History Last Taken Unknown] finasteride 5 mg tablet 5 mg PO DAILY prostate 03/18/23 [History Last Taken 07/06] fluticasone propionate 110 mcg/actuation HFA aerosol inhaler (Flovent HFA) 2 inh inhalation BID asthma 03/18/23 [History Last Taken 03/18/23] hydrochlorothiazide 25 mg tablet 25 mg PO DAILY water pill 03/18/23 [History Last Taken 03/17/23] ipratropium bromide 42 mcg (0.06 %) nasal spray 2 spray intranasal DAILY 03/18/23 [History Last Taken 03/18/23] levothyroxine 50 mcg tablet 50 mcg PO DAILY thyroid 03/18/23 [History Last Taken 03/18/23] loratadine 10 mg tablet (Allerclear) 10 mg PO DAILY allergies 03/18/23 [History Last Taken 03/18/23] magnesium hydroxide 400 mg/5 mL oral suspension (Pritchard Milk of [employer] [employer]) 30 ml PO DAILY PRN constipation 03/18/23 [History Last Taken Unknown] omeprazole 20 mg capsule,delayed release 20 mg PO DAILY gerd 03/18/23 [History Last Taken 03/18/23] ondansetron 4 mg disintegrating tablet 4 mg PO Q8H PRN nausea and vomiting 03/18/23 [History Last Taken Unknown] polyethylene glycol 3350 17 gram/dose oral powder (ClearLax) 17 g PO DAILY laxative 03/18/23 [History Last Taken 03/18/23] tramadol 50 mg tablet 50 mg PO Q8H PRN pain 03/18/23 [History Last Taken Unknown] Allergy/AdvReac Type Severity Reaction Status Date / Time allopurinol Allergy PT UNSURE Verified 03/18/23 15:10 OF REACTION ciprofloxacin Allergy PT UNSURE Verified 03/18/23 15:10 OF REACTION erythromycin base Allergy PT UNSURE Verified 03/18/23 15:10 OF REACTION levofloxacin Allergy PT UNSURE Verified 03/18/23 15:10 OF REACTION paroxetine Allergy PT UNSURE Verified 03/18/23 15:10 OF REACTION Penicillins Allergy PT UNSURE Verified 03/18/23 15:10 OF REACTION Sulfa (Sulfonamide Allergy PT UNSURE Verified 03/18/23 15:10 Antibiotics) OF REACTION Tetracyclines Allergy PT UNSURE Verified 03/18/23 15:10 OF REACTION Social History (Updated 03/18/23 @ 18:06 by Cathy Jensen) history of recent travel: No sexually active: No do you think of yourself as: straight/heterosexual current gender identity: male Smoking Status: Never smoker substance use type: does not use ROS ROS Narrative As stated in history of present illness otherwise negative Physical Exam Narrative Alert responsive does not appear toxic lungs are clear heart exam S1-S2 abdomen soft nontender. Perry catheter is in place Lab / Micro Data 03/21/23 07:11 03/21/23 07:11 Labs: Laboratory Results - last 24 hr 03/21/23 07:11: WBC 9.5, RBC 4.28 L, Hgb 12.5 L, Hct 39.1 L, MCV 91.4, MCH 29.2, MCHC 32.0, RDW Std Deviation 45.1 H, RDW Coeff of Josue 13.4, Plt Count 497 H, MPV 9.3, Immature Gran % (Auto) 1.800 H, Neut % (Auto) 55.4, Lymph % (Auto) 27.0, [place] % (Auto) 11.6 H, Eos % (Auto) 3.4, Baso % (Auto) 0.8, Absolute Neuts (auto) 5.3, Absolute Lymphs (auto) 2.57, Nucleated RBC % 0, Sodium 135 L, Potassium 3.9, Chloride 103, Carbon Dioxide 26.0, Anion Gap 6, BUN 12, Creatinine 0.63 L, Estim Creat Clear Calc 39.58, Est GFR (MDRD) Af Amer 156, Est GFR (MDRD) Non-Af 129, BUN/Creatinine Ratio 19.0, Glucose 95, Calcium 9.1 Micro: Microbiology 03/18/23 15:23 Urine, Clean Catch Urine Culture - Final ESBL Klebsiella pneumoniae pne
[2023-03-21 14:13] VITALS: BP 118/70; PULSE 88; RESP 20; TEMP 36.6; O2SAT 95
--- NOTE | 2023-03-21 16:32 | DS.PCM_ITS ---
Providers Date of Admission: 03/18/23 Date of Discharge: 03/21/23 Primary Care Physician: CARMEN HEAD Consultations 03/21/23 12:59 Consult: Infectious Disease Routine Consulting Provider: Will Roque Reason for Consult: ESBL E coli UTI EMERGENT Consult: No MD Notified: Yes Date Notified: 03/21/23 Time Notified: 12:59 Method of Notification: Text Reason For Visit: DEBILITY, UTI Diagnosis Discharge Diagnosis (1) Chronic pain of left knee: Status: Chronic Code(s): M25.562 - Pain in left knee; G89.29 - Other chronic pain (2) Asymptomatic bacteriuria: Status: Acute Code(s): R82.71 - Bacteriuria Plan 82-year-old gentleman with history of chronic left knee pain was supposed to have surgery as an outpatient was admitted for debility for severe left knee pain with weightbearing. Acute on chronic urine retention: Patient required Perry catheter on both recent admission and went home with Perry catheter. He follows outpatient urologist Dr. Bravo. Did he denied fever or decreased urine output with increased frequency or urgency prior to Perry catheterization. No suprapubic discomfort or pain. Urine culture shows more than 100,000 colonies of ESBL E. coli. ID was consulted. Patient does not have symptoms therefore it is asymptomatic bacteriuria and ID suggested against antibiotic/no indication of antibiotic therefore patient was not discharged on antibiotic. Patient on Flomax and Proscar. Patient discharged with Perry catheter and advised to follow-up with urologist. Falls/debility -This seems all related to his left lower extremity knee pain -PT/OT following -Case management/social work following -Patient will need placement at discharge and will need a 3 midnight hospitalization with the earliest date of discharge if medically stable being 03/21/2023 Severe left knee osteoarthritis -Plan is for operative intervention with total knee arthroplasty in May -Encourage patient to keep this scheduled History of asthma/COPD/pulmonary fibrosis -Intermittently uses 2 L nasal cannula at home -As needed a aerosols -Continue home loratadine RICKY -Patient's been intolerant of CPAP previously -Continue nocturnal oxygen at 2 L Hypertension -Continue home hydrochlorothiazide Hyperlipidemia -Continue home statin GERD -Continue PPI Hypothyroidism -Continue home Synthroid Vitamin B12 deficiency -Continue home supplement Constipation -Continue home MiraLAX Obesity -BMI is 31.1 -Recommend weight loss -Complicates treatment, prognosis, outcomes DVT prophylaxis -Continue Lovenox CODE STATUS Full code Discharge medication reconciliation done. Discharge follow-up instructions completed. Discharge process discussed with the patient and all questions were answered to patient's satisfaction. Follow with PCP in 1 to 2 weeks Total time spent, exact 35 minutes on discharge meds reconciliation, examination, coordination of care with nurses and ancillary staff, review of imaging and blood test and discussion with the patient on follow-up instructions. Medications at Discharge Home Medications albuterol sulfate 90 mcg/actuation aerosol inhaler 2 puff inhalation Q6H PRN ASTHMA 03/18/23 atorvastatin 10 mg tablet 10 mg PO QHS cholesterol 03/18/23 carboxymethylcellulose sodium 0.5 % eye drops in a dropperette 1 drp EACH EYE DAILY PRN dry eye(s) 03/18/23 cyanocobalamin (vitamin B-12) 1,000 mcg capsule 2,000 mcg PO DAILY suppliment 03/18/23 diclofenac sodium 1 % topical gel (Voltaren Arthritis Pain) 2 g topical DAILY 03/18/23 ergocalciferol (vitamin D2) 1,250 mcg (50,000 unit) capsule (Drisdol) 1,250 mcg PO QWEEK supplement 03/18/23 finasteride 5 mg tablet 5 mg PO DAILY prostate 03/18/23 fluticasone propionate 110 mcg/actuation HFA aerosol inhaler (Flovent HFA) 2 inh inhalation BID asthma 03/18/23 hydrochlorothiazide 25 mg tablet 25 mg PO DAILY water pill 03/18/23 ipratropium bromide 42 mcg (0.06 %) nasal spray 2 spray intranasal DAILY 03/18/23 levothyroxine 50 mcg tablet 50 mcg PO DAILY thyroid 03/18/23 loratadine 10 mg tablet (Allerclear) 10 mg PO DAILY allergies 03/18/23 omeprazole 20 mg capsule,delayed release 20 mg PO DAILY gerd 03/18/23 ondansetron 4 mg disintegrating tablet 4 mg PO Q8H PRN nausea and vomiting 03/18/23 polyethylene glycol 3350 17 gram/dose oral powder (ClearLax) 17 g PO DAILY laxative 03/18/23 tramadol 50 mg tablet 50 mg PO Q8H PRN pain 03/18/23 acetaminophen 325 mg tablet 650 mg (2 x 325 mg) PO Q6H PRN PRN Pain 1-10 Or Fever>100.7 #0 tabs 03/21/23 tamsulosin 0.4 mg capsule 0.4 mg PO DAILY@0830 #0 caps 03/21/23 Physical Exam Narrative Seen and examined. No acute symptoms of increased frequency urgency burning micturition prior to Perry catheterization. Patient has history of chronic urinary retention and BP H Physical exam General: Alert, Oriented x3, Cooperative HEENT: Atraumatic, PERRLA, EOMI, Normocephalic Oral: No Gingival or Mucosal Lesions/ Ulcerations Neck: Supple, No JVD, Negative Carotid Bruits Lungs: Air entry diminished in bilateral lung bases. No crepitation/rhonchi Cardiovascular: Regular rate, Regular Rhythm, Normal S1, Normal S2, systolic murmur Abdomen: Bowel Sounds Present, Soft, Non Tender, Non-Distended : No dysuria. Perry catheter. Clear urine. No renal angle tenderness. No suprapubic tenderness. Extremities: No edema, Capillary Refill Less than 3 Seconds Skin: No rashes, No breakdown Musculoskeletal: Bilateral degenerative arthritis, left worse than right. ROM restricted. Mild tenderness to deep palpation of left knee. Neurological: Cranial nerves II-XII grossly intact, DTR 2+/4. No acute focal neurological deficit. Psych/Mental Status: Normal Affect, Appropriate. Weight / BMI Weight Weight: 159 lb Body Mass Index (BMI) 31.0 ABG / Lab / Microbiology Data 03/21/23 07:11 03/21/23 07:11 Laboratory: Laboratory Results - last 24 hr 03/21/23 07:11: WBC 9.5, RBC 4.28 L, Hgb 12.5 L, Hct 39.1 L, MCV 91.4, MCH 29.2, MCHC 32.0, RDW Std Deviation 45.1 H, RDW Coeff of Josue 13.4, Plt Count 497 H, MPV 9.3, Immature Gran % (Auto) 1.800 H, Neut % (Auto) 55.4, Lymph % (Auto) 27.0, [place] % (Auto) 11.6 H, Eos % (Auto) 3.4, Baso % (Auto) 0.8, Absolute Neuts (auto) 5.3, Absolute Lymphs (auto) 2.57, Nucleated RBC % 0, Sodium 135 L, Potassium 3.9, Chloride 103, Carbon Dioxide 26.0, Anion Gap 6, BUN 12, Creatinine 0.63 L, Estim Creat Clear Calc 39.58, Est GFR (MDRD) Af Amer 156, Est GFR (MDRD) Non-Af 129, BUN/Creatinine Ratio 19.0, Glucose 95, Calcium 9.1 Microbiology: Microbiology 03/18/23 15:23 Urine, Clean Catch Urine Culture - Final ESBL Klebsiella pneumoniae pne Meaningful Use Info Meaningful Use Diagnoses (Choose all that apply): None applicable Discharge Plan Admission Admit Date/Time: 03/18/23 16:50 Primary Reason for Your Visit: Asymptomatic bacteriuria. Debility due to severe knee arthritis Attending Provider: Yusuf Nelson Primary Care Provider: CARMEN HEAD Consulting Providers: Channing Bridges; Radha Schofield; Will Roque Instructions Additional Instructions / Restrictions: Discharge with Perry catheter. Patient on Flomax. Follow-up outpatient urologist Dr. Bravo for BPH at [facility] for spontaneous voiding trial. Discharge Orders/Prescriptions Prescriptions: New acetaminophen 325 mg Tablet 650 mg PO Q6H PRN PRN (Reason: Pain 1-10 Or Fever>100.7) Qty: 0 0RF tamsulosin 0.4 mg Capsule 0.4 mg PO DAILY@0830 Qty: 0 0RF Continued albuterol sulfate 90 mcg/actuation HFA aerosol inhaler 2 puff INHALATION Q6H PRN (Reason: ASTHMA) atorvastatin 10 mg tablet 10 mg PO QHS finasteride 5 mg tablet 5 mg PO DAILY ipratropium bromide 42 mcg (0.06 %) spray,non-aerosol 2 spray INTRANASAL DAILY levothyroxine 50 mcg tablet 50 mcg PO DAILY omeprazole 20 mg capsule,delayed release(DR/EC) 20 mg PO DAILY tramadol 50 mg tablet 50 mg PO Q8H PRN (Reason: pain) hydrochlorothiazide 25 mg tablet 25 mg PO DAILY fluticasone propionate [Flovent HFA] 110 mcg/actuation HFA aerosol inhaler 2 inh inhalation BID loratadine [Allerclear] 10 mg tablet 10 mg PO DAILY polyethylene glycol 3350 [ClearLax] 17 gram/dose powder 17 g PO DAILY cyanocobalamin (vitamin B-12) 1,000 mcg capsule 2,000 mcg PO DAILY ergocalciferol (vitamin D2) [Drisdol] 1,250 mcg (50,000 unit) capsule 1,250 mcg PO QWEEK diclofenac sodium [Voltaren Arthritis Pain] 1 % gel 2 g topical DAILY Rx Instructions: TO LEFT KNEE ondansetron 4 mg tablet,disintegrating 4 mg PO Q8H PRN (Reason: nausea and vomiting) carboxymethylcellulose sodium 0.5 % dropperette 1 drp EACH EYE DAILY PRN (Reason: dry eye(s)) Discontinued alfuzosin 10 mg tablet extended release 24 hr 10 mg PO DAILY magnesium hydroxide [Pritchard Milk of Magnesia] 400 mg/5 mL suspension 30 ml PO DAILY PRN (Reason: constipation) Referrals / Follow Up: CARMEN HEAD [Other] - In 1 Week CARMEN HEAD [Other] Disposition Disposition (needs filled in before D/C Order can be placed): Detention Facility Charges/Coding Visit Charges Inpatient E&M: 62946 Disch Hosp >30min
[2023-03-21 19:40] VITALS: BP 115/60; PULSE 101; RESP 18; TEMP 36.9; O2SAT 96
[2023-03-21] MEDS: Atorvastatin Calcium 10 MG Tablet PO (20:13)
[2023-03-22 02:13] VITALS: BP 132/84; PULSE 70; RESP 18; TEMP 37.1; O2SAT 97
[2023-03-22] MEDS: Acetaminophen 325 MG Tablet 650 MG PO (04:42)
[2023-03-22] MEDS: Levothyroxine 50 MCG Tablet PO (04:42)
== END 2023-03-22 05:14 | disposition skilled nursing facility (03) | DRG 554 ==
LOC: ED 16:43 → MS3 17:13
PROVIDERS: Internal Medicine; Admitting Provider Hospitalist; Emergency Provider Emergency Medicine; Visit Provider Internal Medicine
DX: M17.12 Unilateral primary osteoarthritis, left knee (principal); Z16.12 Extended spectrum beta lactamase (ESBL) resistance; E03.9 Hypothyroidism, unspecified; J43.9 Emphysema, unspecified; N18.9 Chronic kidney disease, unspecified; I12.9 Hypertensive chronic kidney disease with stage 1 through stage 4 chronic kidney disease, or unspecified chronic kidney disease; J45.909 Unspecified asthma, uncomplicated; E53.8 Deficiency of other specified B group vitamins; E78.5 Hyperlipidemia, unspecified; G47.33 Obstructive sleep apnea (adult) (pediatric); K21.9 Gastro-esophageal reflux disease without esophagitis; K59.00 Constipation, unspecified; E66.9 Obesity, unspecified; R82.71 Bacteriuria; G89.29 Other chronic pain; M85.80 Other specified disorders of bone density and structure, unspecified site; R33.8 Other retention of urine; N40.1 Benign prostatic hyperplasia with lower urinary tract symptoms; R53.81 Other malaise; Z68.31 Body mass index [BMI] 31.0-31.9, adult; Z79.891 Long term (current) use of opiate analgesic; Z79.51 Long term (current) use of inhaled steroids; Z88.1 Allergy status to other antibiotic agents
CPT/HCPCS: 36415; 76770; 80048; 81001; 85025; 85027; 87077; 87086; 87088; 87186; 93005; 94640; 94668; 97116; 97162; 97166; 97530; 97535; 99252; 99284; A4216; G0463

== ENCOUNTER → 2024-07-15 | Outpatient (REF) | payer MEDICARE, SELFPAY ==
[2024-07-15 09:21] LABS: Hematocrit 38.2 % (40-54); Hemoglobin 12.8 g/dL (13.0-16.5); Mean Corp Hgb Conc 33.5 g/dL (32-36); Mean Corpuscular Hgb 28.3 pg (27.0-32.0); Mean Corpuscular Volume 84.5 fL (80-94); Mean Platelet Vol. 9.5 fl (6.2-12.0); Platelet Count 530 K/mm3 (150-450); RBC Distribution Width CV 13.6 % (11.6-14.6); RBC Distribution Width SD 42.1 fl (35.1-43.9); Red Blood Count 4.52 M/mm3 (4.6-6.2); White Blood Count 10.7 K/mm3 (4.4-11.0)
[2024-07-15 09:42] LABS: Anion Gap 10 (5-15); BUN 20 mg/dL (4-19); BUN/Creat Ratio 29.2 RATIO (10-20); Calcium,Total 9.5 mg/dL (7.6-11.0); Carbon Dioxide 27.1 mmol/L (21.0-32.0); Chloride 101 mmol/L (98-108); Creatinine, Serum 0.68 mg/dL (0.70-1.20); EST Glomerular Filtration Rate 92 (>60); Glucose 92 mg/dL (70-99); Potassium 3.7 mmol/L (3.3-5.1); Sodium Level 138 mmol/L (133-145)
== END ==
LOC: OLS.ACH 04:00
PROVIDERS: Referring Provider Internal Medicine; Visit Provider Internal Medicine
DX: E78.5 Hyperlipidemia, unspecified (principal); E03.9 Hypothyroidism, unspecified
CPT/HCPCS: 36415; 80048; 85027

== ENCOUNTER → 2024-08-20 05:00 | Outpatient (REF) | payer MEDICARE, OTHER, SELFPAY ==
[2024-08-20 09:16] LABS: Hematocrit 38.4 % (40-54); Hemoglobin 12.6 g/dL (13.0-16.5); Mean Corp Hgb Conc 32.8 g/dL (32-36); Mean Corpuscular Hgb 27.3 pg (27.0-32.0); Mean Corpuscular Volume 83.1 fL (80-94); Mean Platelet Vol. 9.7 fl (6.2-12.0); Platelet Count 480 K/mm3 (150-450); RBC Distribution Width CV 14.2 % (11.6-14.6); RBC Distribution Width SD 42.4 fl (35.1-43.9); Red Blood Count 4.62 M/mm3 (4.6-6.2); White Blood Count 10.8 K/mm3 (4.4-11.0)
[2024-08-20 09:36] LABS: AST(SGOT) 22 U/L (<=37); Alanine Aminotransfer ALT/SGPT 11 U/L (<=46); Albumin, Serum 3.3 g/dL (3.4-4.8); Alkaline Phosphatase 89 U/L (40-129); Anion Gap 10 (5-15); BUN 14 mg/dL (4-19); BUN/Creat Ratio 24.7 RATIO (10-20); Calcium,Total 9.2 mg/dL (7.6-11.0); Carbon Dioxide 25.9 mmol/L (21.0-32.0); Chloride 98 mmol/L (98-108); Creatinine, Serum 0.56 mg/dL (0.70-1.20); EST Glomerular Filtration Rate 97 (>60); Globulin 3.2 g/dL (2.2-4.2); Glucose 89 mg/dL (70-99); Potassium 3.8 mmol/L (3.3-5.1); Protein, Total 6.5 g/dL (5.9-8.4); Sodium Level 134 mmol/L (133-145); Total Bilirubin 0.45 mg/dL (0.00-1.30)
== END ==
LOC: OLS.ACH 05:00
PROVIDERS: Visit Provider Internal Medicine
DX: J44.9 Chronic obstructive pulmonary disease, unspecified (principal)
CPT/HCPCS: 36415; 80053; 85027

== ENCOUNTER → 2024-09-11 05:00 | Outpatient (REF) | payer MEDICARE, OTHER, SELFPAY ==
[2024-09-11 08:16] LABS: Hematocrit 38.7 % (40-54); Hemoglobin 12.9 g/dL (13.0-16.5); Mean Corp Hgb Conc 33.3 g/dL (32-36); Mean Corpuscular Hgb 27.4 pg (27.0-32.0); Mean Corpuscular Volume 82.3 fL (80-94); Mean Platelet Vol. 9.6 fl (6.2-12.0); Platelet Count 532 K/mm3 (150-450); RBC Distribution Width CV 15.2 % (11.6-14.6); RBC Distribution Width SD 45.1 fl (35.1-43.9); White Blood Count 18.7 K/mm3 (4.4-11.0)
[2024-09-11 08:21] LABS: ALB/GLOB Ratio 1.1 RATIO (0.9-2.4); AST(SGOT) 17 U/L (<=37); Alanine Aminotransfer ALT/SGPT 9 U/L (<=46); Albumin, Serum 3.4 g/dL (3.4-4.8); Alkaline Phosphatase 95 U/L (40-129); Anion Gap 10 (5-15); BUN 14 mg/dL (4-19); BUN/Creat Ratio 22.6 RATIO (10-20); Calcium,Total 9.4 mg/dL (7.6-11.0); Carbon Dioxide 25.5 mmol/L (21.0-32.0); Chloride 99 mmol/L (98-108); EST Glomerular Filtration Rate 95 (>60); Globulin 3.2 g/dL (2.2-4.2); Glucose 104 mg/dL (70-99); Potassium 4.2 mmol/L (3.3-5.1); Protein, Total 6.6 g/dL (5.9-8.4); Sodium Level 134 mmol/L (133-145); Total Bilirubin 0.88 mg/dL (0.00-1.30)
== END ==
LOC: OLS.ACH 05:00
PROVIDERS: Visit Provider Internal Medicine
DX: J44.9 Chronic obstructive pulmonary disease, unspecified (principal); J20.9 Acute bronchitis, unspecified
CPT/HCPCS: 36415; 80053; 85027

== ENCOUNTER → 2024-10-27 04:00 | Outpatient (REF) | payer MEDICARE, OTHER, SELFPAY ==
--- OUTSIDE RECORDS SUMMARY | 2024-10-27 04:11 | XMS RPT_ITS | CCD ---
Author Organization [facility] ion [facility] Care Team Providers Care Dross Puller Name Role Phone Roopa Madera Attending Unavailable Trent, Roopa Referring Unavailable Trent, Roopa Primary Care Unavailable Kathy Ordonez Attending Unavailable Trent, Roopa Referring Unavailable Trent, Roopa Primary Care Unavailable Kathy Ordonez Attending Unavailable Trent, Roopa Referring Unavailable Trent, Roopa Primary Care Unavailable Trent, Roopa Attending Unavailable Trent, Roopa Referring Unavailable Trent, Roopa Primary Care Unavailable Roopa Madera Primary Care Provider Roopa Madera Primary Care Provider Roopa Madera MD Primary Care Provider Roopa Madera MD Primary Care Provider Roopa Madera MD Primary Care Provider Roopa Madera MD Primary Care Provider Roopa Madera MD Primary Care Provider Kathy Ordonez MD Unavailable SAIGE RUSHING Attending Unavailable Roopa Madera MD Primary Care Provider Kathy Ordonez MD Unavailable MD Zechariah Post Emergency Provider ROOPA MADERA Primary Care Provider Dr. Channing Bridges Admit Provider [phone] Dr. Channing Bridges Other Provider [phone] Dr. Radha Schofield Attending Provider Dr. Radha Schofield Other Provider Dr. Yusuf Nelson Attending Provider Dr. Yusuf Nelson Other Provider Dr. Will Roque Other Provider [phone] Shelly MOODY, Kathy Unavailable Roopa Madrea MD Primary Care Provider [phone] ROOPA MADERA Attending Unavailable ROOPA MADERA Primary Care Unavailable Roopa Madera MD Primary Care Provider Yenifer Dc DO Unavailable ANA BLAKE Attending Unavailable TRENT, ROOPA Primary Care Unavailable KATHY ORDONEZ Attending Unavailable TRENT, ROOPA Primary Care Unavailable KATHY JACOME Attending Unavailable TRENT, ROOPA Primary Care Unavailable MARYBETH GLASER Referring Unavailable TRENT, ROOPA Primary Care Unavailable TRENT, ROOPA Primary Care Unavailable CHELLE ENRIQUE Admitting Unavailable YENIFER DC Unavailable YISSEL EASON Attending Unavailable Town Doctor, Out of Primary Care Provider Elvira Ortiz MD, Castillo Attending Provider Unavailable Angel MOODY, Castillo Referring Provider Unavailable Angel OLS, Castillo Attending Unavailable Town Doctor, Out of Primary Care Unavailable Angel HURLEY, Castillo Referring Unavailable Angel HURLEY, Castillo Attending Unavailable Town Doctor, Out of Primary Care Unavailable Angel HURLEY, Castillo Attending Unavailable Town Doctor, Out of Primary Care Unavailable Angel HURLEY, Castillo Referring Unavailable Angel HURLEY, Castillo Attending Unavailable Town Doctor, Out of Primary Care Unavailable Allergies Allergy Classification Reported Allergen(s) Allergy Type Date of Onset Reaction(s) Facility Doxycycline (1 source) Doxycycline Drug Allergy 07-27-19 17 [facility] Macrolides (antibiotic) (1 source) Erythromycin Drug Allergy 07-27-19 17 [facility] Minocycline (1 source) Minocycline Drug Allergy 07-27-19 17 [facility] Penicillins (antibiotic) (1 source) Penicillins Drug Allergy 07-27-19 17 [facility] Quinolones (antibiotic) (1 source) Ciprofloxacin Drug Allergy 05-26-19 20 [facility] Sulfonamides (antibiotic) (1 source) Sulfonamides (Antibiotic) Drug Allergy 07-27-19 17 [facility] (11 sources) Doxycycline Drug Allergy 07-27-19 17 [place], [place] (20 sources) Erythromycin; Translations: [ERYTHROMYCIN] Drug Allergy 11-14-19 13 Unknown [place] (11 sources) Minocycline Drug Allergy 07-27-19 17 [place] (13 sources) Penicillins; Translations: [PENICILLINS] Propensity to adverse reactions to drug 11-14-19 13 [place] (11 sources) Sulfonamides (Antibiotic) Propensity to adverse reactions to drug 07-27-19 17 [place] (12 sources) Tetracyclines & Related Propensity to adverse reactions to drug 07-27-19 17 [place] (20 sources) Ciprofloxacin; Translations: [CIPROFLOXACIN] Drug Allergy 05-26-19 20 Unknown [facility] Work Phone: (20 sources) Allopurinol; Translations: [ALLOPURINOL] Drug Allergy 07-09-[address] [facility] (20 sources) Doxycycline; Translations: [DOXYCYCLINE] Drug Allergy 11-14-19 13 [facility] (20 sources) levoFLOXacin; Translations: [LEVOFLOXACIN] Drug Allergy 10-01-19 21 Other: See Comments, Other [facility] (20 sources) Minocycline; Translations: [MINOCYCLINE] Drug Allergy 07-09-19 14 [facility] (20 sources) PARoxetine; Translations: [PAROXETINE] Drug Allergy 10-01-19 21 Other: See Comments, [facility] (3 sources) Penicillins Drug Allergy 11-14-19 13 [facility] (20 sources) Simvastatin; Translations: [SIMVASTATIN] Drug Allergy 10-01-19 21 Rash, Itching [facility] (20 sources) Sulfacetamide; Translations: [SULFACETAMIDE] Drug Allergy 09-03-19 15 [facility] (20 sources) Sulfonamides (Antibiotic); Translations: [SULFA (SULFONAMIDE ANTIBIOTICS)] Drug Allergy 09-03-19 15 [facility] (20 sources) Tetracycline; Translations: [TETRACYCLINE] Drug Allergy 11-14-[address] [facility] (18 sources) Penicillins Drug Allergy 11-14-19 [address] [facility] (20 sources) Penicillins Drug Allergy 11-14-19 13 Unknown [facility] (20 sources) Tetracycline (class of antibiotic) Drug Intolerance 11-14-19 13 Unknown [facility] (2 sources) Penicillins Allergy to substance 12-03-20 23 PT UNSURE OF REACTION [facility] (2 sources) Sulfonamides (Antibiotic) Allergy to substance 03-18-20 PT UNSURE OF REACTION [facility] (2 sources) Tetracyclines Allergy to substance 03-18-20 PT UNSURE OF REACTION [facility] (9 sources) Omeprazole Drug Allergy 04-07-20 [facility] (1 source) Allopurinol Drug Allergy 03-18-20 [facility] (1 source) Ciprofloxacin Drug Allergy 03-18-20 [facility] (1 source) Erythromycin Drug Allergy 03-18-20 [facility] (1 source) levoFLOXacin Drug Allergy 03-18-20 [facility] (1 source) PARoxetine Drug Allergy 03-18-20 [facility] (1 source) Penicillins Drug allergy (disorder) 03-18-20 [facility] (1 source) Sulfonamides (Antibiotic) Drug allergy (disorder) 03-18-20 [facility] (1 source) Tetracyclines Drug allergy (disorder) 03-18-20 [facility] Medications Current Medications Medication Drug Class(es) Dates Sig (Normalized) Sig (Original) albuterol sulfate HFA 108 (90 Base) MCG/ACT inhaler (6 sources) take 2 puff(s) by inhalation every six hours as needed for wheezing albuterol sulfate HFA 108 (90 Base) MCG/ACT inhaler Inhale 2 puffs into the lungs every 6 hours as needed for Wheezing 0 Active albuterol sulfate HFA 108 (90 Base) MCG/ACT inhaler 2 puff (1 source) Start: take 2 puff(s) by inhalation every six hours as needed for wheezing 2 puff, Inhalation, EVERY 6 HOURS PRN, Wheezing, Starting Sun06/20/19 at 0920 benzocaine 6 mg / menthol 10 mg oral lozenge (1 source) Standardized Chemical Allergen Start: Benzocaine-Menthol (CEPACOL) 1 lozenge carboxymethylcellulose sodium 5 mg/ml ophthalmic solution (20 sources) Start: 024 take 1 drop(s) into the eye(s) twice daily as needed carboxymethylcellulose (Refresh Plus) 0.5 % ophthalmic solution Administer 1 drop into both eyes 2 times daily as needed for dry eyes. 30 mL 2 04/10/2024 Active Start: 03-18-2023 Carboxymethylc ellulose Sodium Active 1 DRP EACH EYE DAILY March 18, 2023 12:00am Start: 02-14-2023 End: 02-19-2023 carboxymethylcellulose PF (R efresh Plus) 0.5 % ophthalmic solution 1 drop End: 04-07-2024 carboxymethylcellulose (Refr esh Plus) 0.5 % ophthalmic solution Administer 1 drop into both eyes if needed for dry eyes. 04/07/2024 Discontinued (Therapy completed) Carboxymethylcellulose Sodium 0.5 % dropperette (1 source) Start: 03-18-2023 Carboxymethylcellulose Sodium 0.5 % dropperette Active 1 NMA EACH EYE DAILY as needed for dry eye(s) March 18, 2023 1:00am chlorpheniramine maleate 4 mg oral tablet (20 sources) Histamine-1 Receptor Antagonist Start: 06-20-2019 End: 10-09-2020 take 4 mg by mouth every six hours as needed 4 mg, Oral, EVERY 6 HOURS PRN, Allergies, for drainage, Starting Sun06/20/19 at 1038 take 4 mg by mouth twice daily C HLORPHENIRAMINE MALEATE ORAL Take 4 mg by mouth twice daily. 0 Active Comment on above: Take 4 mg by mouth t wice daily. chlorpheniramine maleate 4 mg / pseudoephedrine hydrochloride 60 mg oral tablet (5 sources) alpha-Adrenergic Agonist, Histamine-1 Receptor Antagonist take 4-60 mg by mouth once chlorpheniramine-p seudoephedrine 4-60 MG TABS per tablet Take 1 tablet by mouth 3 times daily 0 Active diclofenac sodium 0.01 mg/mg topical gel (20 sources) Nonsteroidal Anti-inflammatory Drug Start: 03-18-20 Diclofenac Sodium (Voltaren Arthritis Pain) 1 % gel Active 2 g TOPICAL DAILY March 18, 2023 1:00am TO LEFT KNEE Start: 02-19-2023 End: 03-05-2023 Diclofenac Sodium (Voltaren) 1 % gel Apply 2 g topically 2 times daily for 7 days. Left knee. 0 02/19/2023 03/05/2023 Start: 02-18-2023 End: 02-19-2023 Diclofenac Sodium (Voltaren) 1 % gel 2 g Start: 11-02-2021 apply 4 g topically four times daily diclofenac (VOLTAREN ARTHRITIS PAIN) 1 % topical gel Apply 4 g to affected area four times daily. 100 g 3 11/02/2021 Active Comment on above: Apply 4 g to affecte d area four times daily. DM-APAP-CPM 10-325-2 MG TABS 1 tablet (1 source) Start: 06-20-2019 take 1 tablet by mouth every twelve hours as needed for cough 1 tablet, Oral, EVERY 12 HOURS PRN, Cough, Starting Sun06/20/19 at 1038 This product is non-formulary Patient/family must supply if needed. doxycycline hyclate 100 mg oral tablet (2 sources) Tetracycline-class Drug Start: 06-22-2019 End: 06-27-2019 take 1 tablet by mouth twice daily doxycycline hyclate (VIBRA-TABS) 100 MG tablet Take 1 tablet by mouth 2 times daily for 5 days 10 tablet 0 06/22/2019 06/27/2019 Active Start: 06-21-2019 End: 06-22-2019 doxycycline hyclate (VIBRAMY AMANDA) capsule 100 mg ergocalciferol 1.25 mg oral capsule (20 sources) Provitamin D2 Compound Start: 04-10-2024 take 1 capsule by mouth every week ergocalciferol (Vitamin D-2) 1.25 MG (01813 UT) capsule Take 1 capsule (1.25 mg) by mouth 1 (one) time per week. 12 capsule 04/10/2024 Active Start: 03-18-2023 Ergocalciferol (Vitamin D2) (Drisdol) 1,250 mcg (50,000 unit) capsule Active 1250 ug PO EVERY WEEK March 18, 2023 1:00am Start: 02-24-2023 End: 04-15-2023 take 1 capsule by mouth every week ergocalciferol (Vitamin D2) 1.25 MG (69828 UT) capsule Take 1 capsule (1.25 mg) by mouth 1 (one) time per week for 8 doses. 0 02/24/2023 04/15/2023 Active Start: 02-17-2023 End: 02-19-2023 ergocalciferol (Vitamin D2) capsule 1.25 mg End: 04-10-2024 take 1 capsule by mouth once daily ergocalciferol (Vitamin D-2) 1.25 MG (76729 UT) capsule Take 1.25 mg by mouth daily. 04/10/2024 Discontinued febuxostat 40 mg oral tablet (5 sources) Xanthine Oxidase Inhibitor Start: 06-20-2019 End: 06-20-2019 take 40 mg by mouth once daily 40 mg, Oral, DAILY, First dose on Sun06/20/19 at 1000 finasteride 5 mg oral tablet (20 sources) 5-alpha Reductase Inhibitor Start: 12-24-2020 End: 04-11-2024 take 1 tablet by mouth once daily Finasteride 5 mg tablet Active 5 mg PO DAILY March 18, 2023 1:00am Start: 10-06-2020 take 1 tablet by alejandro th once daily 5 mg, Oral, DAILY, First dose on Sun10/06/20 at 0900 Women should not handle crushed or broken finasteride tablets when they are or may potentially be , due to potential risk to the fetus. Start: 06-20-2019 End: 06-20-2019 take 1 tablet by mouth once daily 5 mg, Oral, DAILY, First dose on Sun06/20/19 at 1000 Women should not handle crushed or broken finasteride tablets when they are or may potentially be , due to potential risk to the fetus. Comment on above: TAKE 1 TABLET BY ALEJANDRO TH EVERY DAY Fluticasone Propionate (Flovent Hfa) 110 mcg/actuation HFA aerosol inhaler (2 sources) Start: 03-18-2023 Fluticasone Propionate (Flovent Hfa) 110 mcg/actuation HFA aerosol inhaler Active 2 NMA INHALATION TWICE A DAY March 18, 2023 1:00am Start: 03-18-2023 Fluticasone Pr opionate (Flovent Hfa) 110 mcg/actuation HFA aerosol inhaler Active 2 INH INHALATION TWICE A DAY March 18, 2023 12:00am 60 actuat formoterol fumarate 0.005 mg/actuat / mometasone furoate 0.1 mg/actuat metered dose inhaler (2 sources) Corticosteroid, beta2-Adrenergic Agonist Start: 10-09-2020 take 2 puff(s) by inhalation twice daily mometasone-formoterol (DULERA) 100-5 MCG/ACT inhaler Inhale 2 puffs into the lungs 2 times daily 1 Inhaler 3 10/09/2020 Active Start: 10-08-2020 mometasone-for moterol (DULERA) 100-5 MCG/ACT inhaler 2 puff hydroCHLOROthiazide 25 mg oral tablet (20 sources) Thiazide Diuretic Start: 03-05-2021 End: 04-11-2024 take 1 tablet by mouth once daily Hydrochlorothiazide 25 mg tablet Active 25 mg PO DAILY March 18, 2023 1:00am Start: 02-03-2021 take 1 tablet by alejandro th once daily in the morning hydroCHLOROthiazide (HYDRODIURIL) 25 MG tablet Take 1 tablet by mouth every morning 30 tablet 5 02/03/2021 Active ketoconazole 20 mg/ml medicated shampoo (16 sources) Azole Antifungal Start: 11-02-2021 ketoconazole (NIZORAL) 2 % shampoo Apply to affected area three times a week. 120 mL 3 11/02/2021 Active Comment on above: Apply to affected ar ea three times a week. levothyroxine sodium 0.05 mg oral tablet (20 sources) l-Thyroxine Start: 11-22-2021 End: 04-11-2024 take 1 tablet by mouth once daily Levothyroxine 50 mcg tablet Active 50 ug PO DAILY March 18, 2023 1:00am Start: 06-20-2019 levothyroxine (SYNTHROID) 50 mcg tablet TAKE 1 TABLET EVERY DAY 90 tablet 2 02/19/2021 Active Comment on above: TAKE 1 TABLET EVERY DAY TAKE 1 TABLET BY ALEJANDRO TH EVERY DAY loratadine 10 mg oral tablet (16 sources) Start: 03-18-20 take 1 tablet by mouth once daily Loratadine (Allerclear) 10 mg tablet Active 10 mg PO DAILY March 18, 2023 1:00am mecobalamin (20 sources) mecobalamin (B12 ACTIVE ORAL) Take by mouth. 0 Active Comment on above: Take by mouth. melatonin 3 mg / vitamin b6 10 mg oral tablet (7 sources) take 1 tablet by mouth once daily Melatonin 3-10 MG tablet Take 3 mg by mouth Nightly. Active mirtazapine 15 mg oral tablet (2 sources) take 1 tablet by mouth once daily mirtazapine (REMERON) 15 MG tablet Take 15 mg by mouth nightly 0 Active montelukast 10 mg oral tablet (5 sources) Leukotriene Receptor Antagonist Start: 06-20-19 End: 06-20-19 take 10 mg by mouth once daily 10 mg, Oral, NIGHTLY, First dose on Sun06/20/19 at 2100 Naproxen (1 source) Nonsteroidal Anti-inflammatory Drug Naproxen Sodium (ALEVE PO) Take by mouth 0 Active nitrofurantoin, macrocrystals 25 mg / nitrofurantoin, monohydrate 75 mg oral capsule (7 sources) Nitrofuran Antibacterial take 1 capsule by mouth every twelve hours nitrofurantoin, macrocrystal-monohy drate, (Macrobid) 100 MG capsule Take 100 mg by mouth every 12 hours. Active omeprazole 20 mg delayed release oral capsule (20 sources) Proton Pump Inhibitor Start: 03-14-20 take 1 capsule by mouth once daily Omeprazole 20 mg capsule,delayed release(DR/EC) Active 20 mg PO DAILY March 18, 2023 1:00am take 1 capsule by mouth once corey ly omeprazole (PRILOSEC) 20 MG delayed release capsule Take 20 mg by mouth daily 0 Active Comment on above: Take 1 capsule by mo [facility] once daily. ondansetron (ZOFRAN-ODT) disintegrating tablet 4 mg (1 source) Start: ondansetron (ZOFRAN-ODT) disintegrating tablet 4 mg oseltamivir 75 mg oral capsule (4 sources) Neuraminidase Inhibitor Start: End: take 1 capsule by mouth twice daily oseltamivir (TAMIFLU) 75 MG capsule Take 1 capsule by mouth 2 times daily for 10 days 20 capsule 0 06/22/2019 07/02/2019 Active Polyethylene Glycols (5 sources) Polyethylene Gly col 3350 (MIRALAX PO) Take by mouth daily 0 Active predniSONE 20 mg oral tablet (12 sources) Start: 023 End: take 2 tablets by mouth once daily predniSONE (Deltasone) 20 MG tablet Take 2 tablets (40 mg) by mouth daily for 3 doses. Do not start before January 05, 2023. 6 tablet 0 01/05/2023 01/08/2023 Active Start: 01-03-2023 End: 01-04-2023 predniSONE (Deltasone) table t 40 mg Start: 06-22-2019 predniSONE (DE LTASONE) 10 MG tablet Prednisone 40 mg daily for three days, 20 mg daily for three days, 10 mg daily for three days and stop, take with food # 21 tabs of 10 mg 21 tablet 0 06/22/2019 Active Start: 06-22-2019 predniSONE (DE LTASONE) tablet 60 mg Start: 06-20-2019 End: 06-20-2019 predniSONE (DELTASONE) table t 60 mg End: 06-20-2019 take 1 tablet by mouth once daily predniSONE (DELTASONE) 20 MG tablet Take 20 mg by mouth daily 0 06/20/2019 Discontinued (Therapy completed) Promethazine (1 source) Phenothiazine Start: 06-20-2019 promethazine ( PHENERGAN) tablet 12.5 mg sodium chloride flush 0.9 % injection 3 mL (2 sources) Start: 06-05-2021 sodium chlorid e flush 0.9 % injection 3 mL Start: 10-05-2020 sodium chlorid e flush 0.9 % injection 3 mL Completed/Discontinued Medications Medication Drug Class(es) Dates Sig (Normalized) Sig (Original) Acetaminophen (20 sources) Start: 04-07-2024 End: 04-11-2024 take 1 tablet by mouth every six hours as needed for pain and fever acetaminophen (Tylenol) tablet 650 mg Start: 03-21-2023 take 1-10 tablets by mouth every six hours as needed for pain Acetaminophen 325 mg Tablet Active 650 mg PO EVERY 6 HOURS NEEDED as needed for Pain 1-10 Or Fever>100.7 0 March 21, 2023 1:00am Start: 03-21-2023 take 650 mg by mouth every six hours as needed Acetaminophen Active 650 MG PO EVERY 6 HOURS NEEDED 0 March 21, 2023 12:00am Start: 02-19-2023 End: 03-05-2023 take 2 tablets by mouth three times daily acetaminophen (Tylenol) 500 MG tablet Take 2 tablets (1,000 mg) by mouth 3 times daily for 14 days. 0 02/19/2023 03/05/2023 Start: 02-13-2023 End: 02-19-2023 acetaminophen (Tylenol) tabl et 1,000 mg Start: 01-03-2023 End: 01-04-2023 take 1 tablet by mouth every six hours as needed for pain acetaminophen (Tylenol) tablet 650 mg Start: 12-31-2022 End: 12-31-2022 acetaminophen (Tylenol) tabl et 1,000 mg Start: 12-13-2022 End: 12-13-2022 acetaminophen (Tylenol) tabl et 650 mg Start: 10-06-2020 acetaminophen (TYLENOL) tablet 650 mg Start: 10-05-2020 take 1000 mg by mout h every eight hours as needed for pain, then take 4000 mg by mouth every twenty-four hours as needed for pain 1,000 mg, Oral, EVERY 8 HOURS PRN, Pain Mild (1-3), Pain Moderate (4-6), Starting on Sun10/05/20 at 2327 Maximum dose of acetaminophen is 4000 mg from all sources in 24 hours. Start: 06-20-2019 acetaminophen (TYLENOL) tablet 650 mg acetaminophen (T ylenol) 325 MG tablet Take 650 mg by mouth. Active End: 02-19-2023 take 1 tablet by mouth every eight hours as needed acetaminophen 650 mg CR tablet Take 650 mg by mouth every 8 hours as needed. 0 Active take 1 tablet by alejandro th every six hours as needed for pain acetaminophen (TYLENOL) 500 MG tablet Take 500 mg by mouth every 6 hours as needed for Pain 0 Active Comment on above: Take 650 mg by mouth every 8 hours as needed. acetaminophen 325 mg / HYDROcodone bitartrate 5 mg oral tablet (16 sources) Opioid Agonist Start: 12-31-2022 End: 01-04-2023 take 1 tablet by mouth every six hours as needed for pain HYDROcodone-acet aminophen (Floyd) 5-325 MG per tablet 1 tablet Start: 06-05-2021 End: 06-08-2021 take 1 tablet by mouth every six hours as needed for pain HYDROcodone-acetaminophen (NORCO) 5-325 mg per tablet TAKE 1 TABLET BY MOUTH EVERY 6 HOURS NEEDED FOR PAIN FOR UP TO 3 DAYS. 0 06/05/2021 Active Start: 06-20-2019 End: 06-20-2019 take 1 tablet by mouth every six hours as needed for pain 1 tablet, Oral, EVERY 6 HOURS PRN, Pain Severe (7-10), Starting Sun06/20/19 at 0921 Maximum dose of acetaminophen is 4000 mg from all sources in 24 hours. Comment on above: TAKE 1 TABLET BY ALEJANDRO TH EVERY 6 HOURS NEEDED FOR PAIN FOR UP TO 3 DAYS. [id number] 200 actuat albuter ol 0.09 mg/actuat metered dose inhaler (20 sources) beta2-Adrenergic Agonist Start: 04-07-2024 End: 04-11-2024 Start: 03-18-2023 Albuterol Sulf ate 90 mcg/actuation HFA aerosol inhaler Active 2 NMA INHALATION EVERY 6 HOURS as needed for ASTHMA March 18, 2023 1:00am Start: 03-18-2023 take 1 puff(s) by in halation every six hours Albuterol Sulfate Active 2 PUFF INHALATION EVERY 6 HOURS March 18, 2023 12:00am Start: 12-13-2021 End: 02-19-2023 take 2 puff(s) by inhalation every six hours as needed albuterol 108 (90 Base) MCG/ACT inhaler Inhale 2 puffs every 6 hours as needed. 12/13/2021 Active Start: 01-31-2021 End: 01-31-2021 albuterol sulfate HFA 108 (9 0 Base) MCG/ACT inhaler 4 puff Start: 01-19-2021 albuterol (PRO VENTIL) 2.5 mg /3 mL (0.083 %) nebulizer solution Indications: Mild intermittent asthma, uncomplicated Use 3 mL via nebulizer every 6 hours as needed for wheezing/shortness of breath. 150 mL 1 01/19/2021 Active Start: 10-05-2020 take 2 puff(s) by in halation every six hours as needed for wheezing 2 puff, Inhalation, EVERY 6 HOURS PRN, Wheezing, Starting on Sun10/05/20 at 2327 Start: 10-05-2020 2.5 mg, Nebuli zation, EVERY 4 HOURS PRN, Wheezing, Starting on Sun10/05/20 at 2327 take 2 puff(s) by in halation every four to six hours as needed albuterol HFA 90 mcg/actuation HFA Inhale 2 Puffs as instructed. Every 4 to 6 hours prn 0 Active albuterol (PROVE NTIL) (2.5 MG/3ML) 0.083% nebulizer solution Take 2.5 mg by nebulization every 6 hours as needed for Wheezing 0 Active Comment on above: Use 3 mL via nebuliz er every 6 hours as needed for wheezing/shortness of breath. Inhale 2 Puffs as in structed. Every 4 to 6 hours prn albuterol 0.833 mg/ml / ipratropium bromide 0.167 mg/ml inhalation solution (9 sources) Anticholinergic, beta2-Adrenergic Agonist Start: 02-13-2023 End: 02-13-2023 ipratropium-albutero l (Duo-Neb) 0.5-2.5 mg/3 mL nebulizer solution 3 mL Start: 12-31-2022 End: 01-04-2023 ipratropium-albuterol (Duo-N eb) 0.5-2.5 mg/3 mL nebulizer solution 3 mL Start: 12-31-2022 End: 12-31-2022 3 mL (1 ampule), Nebulizatio n, Every 4 hours while awake, First dose on 12/31/22 at 0800 Start: 06-20-2019 1 ampule, Inha lation, EVERY 4 HOURS WHILE AWAKE, First dose on Sun06/20/19 at 1200 Start: 06-20-2019 End: 06-20-2019 ipratropium-albuterol (DUONE B) nebulizer solution 1 ampule 24 hr alfuzosin hydrochloride 10 mg extended release oral tablet (20 sources) alpha-Adrenergic Nick Start: 03-16-2021 End: 03-21-2023 take 1 tablet by mouth once daily Alfuzosin 10 mg tablet extended release 24 hr Discontinued 10 mg PO DAILY March 18, 2023 1:00am March 21, 2023 5:27pm Start: 03-16-2021 End: 09-28-2022 take 1 tablet by mouth every twenty-four hours in the morning alfuzosin ER (Uroxatral) 10 MG 24 hr tablet Take 1 tablet by mouth in the morning. 0 03/16/2021 09/28/2022 Discontinued (Reorder) End: 06-22-2019 take 1 tablet by mouth once daily alfuzosin (UROXATRAL ) 10 MG extended release tablet Take 10 mg by mouth daily 0 Active Comment on above: TAKE 1 TABLET EVERY DAY atorvastatin 10 mg oral tablet (20 sources) HMG-CoA Reductase Inhibitor Start: 03-18-2023 End: 04-11-2024 take 10 mg by mouth once daily 10 mg, Oral, Nightly, First dose (after last modification) on Sun04/07/24 at 2100 Start: 02-13-2023 End: 02-19-2023 10 mg, Oral, Daily, First do se on Tu02/13/23 at 1630, Substituted for simvastatin (Zocor). Start: 10-06-2020 End: 01-04-2023 atorvastatin (Lipitor) table t 10 mg benzonatate 100 mg oral capsule (4 sources) Non-narcotic Antitussive End: 06-20-2019 take 1 capsule by mouth three times daily as needed for cough benzonatate (TESSALON) 100 MG capsule Take 100 mg by mouth 3 times daily as needed for Cough 0 06/20/2019 Discontinued (Therapy completed) bisacodyl 0.333 mg/ml enema (17 sources) Stimulant Laxative End: 02-19-2023 take 10 mg rectal route once bisacodyl (Fleet Bisacodyl) 10 MG/30ML enema Insert 10 mg into the rectum Once. 0 02/19/2023 Discontinued (Stop taking at discharge) 60 actuat budesonide 0.16 mg/actuat / formoterol fumarate 0.0045 mg/actuat metered dose inhaler (7 sources) Corticosteroid, beta2-Adrenergic Agonist Start: 03-16-2021 SYMBICORT 160-4.5 mcg/actuation inhaler Start: 02-03-2021 take 2 puff(s) by in halation twice daily budesonide-formoterol (SYMBICORT) 160-4.5 MCG/ACT AERO Indications: Moderate persistent asthma without complication , Shortness of breath Inhale 2 puffs into the lungs 2 times daily 1 each 3 02/03/2021 Active Start: 11-04-2020 take 2 puff(s) by in halation twice daily budesonide-formoterol (SYMBICORT) 160-4.5 MCG/ACT AERO Indications: Shortness of breath , Moderate persistent asthma without complication Inhale 2 puffs into the lungs 2 times daily 1 Inhaler 3 11/04/2020 Active cefTRIAXone (2 sources) Cephalosporin Antibacterial Start: 04-10-2024 End: 04-11-2024 take 50 mL intravenously every twenty-four hours cefTRIAXone (Rocephin) IVPB 1 g in 50 mL (Mini-Bag Plus) in NS Infuse 1,000 mg into a venous catheter Every 24 hours for 1 day. 1 each 04/10/2024 04/11/2024 Discontinued (Stop taking at discharge) cefTRIAXone (Rocephin) 1,000 mg in sodium chloride 0.9 % 50 mL IVPB Mini-Bag Plus (6 sources) Start: 04-08-2024 End: 04-11-2024 1,000 mg, IntraVENous, at 100 mL/hr, Administer over 30 Minutes, Every 24 hours, First dose (after last reorder) on Sun04/08/24 at 0630, Mini-Bag Plus bag, Suspected Indication (Select all that apply): Urinary Tract Infection Start: 04-07-2024 End: 04-07-2024 1,000 mg, IntraVENous, at 10 0 mL/hr, Administer over 30 Minutes, Once, On Sun04/07/24 at 0540, For 1 dose, Mini-Bag Plus bag, Suspected Indication (Select all that apply): Urinary Tract Infection Start: 02-14-2023 End: 02-18-2023 cefTRIAXone (Rocephin) 1,000 mg in sodium chloride 0.9 % 50 mL IVPB Mini-Bag Plus cetirizine hydrochloride 10 mg oral tablet (4 sources) Histamine-1 Receptor Antagonist Start: 04-07-2024 End: 04-11-2024 5 mg, Oral, Daily, First dose on Sun04/07/24 at 1430, Substituted for Loratadine (CLARITIN). Start: 10-06-2020 take 5 mg by mouth once daily 5 mg, Oral, DAILY, First dose on Sun10/06/20 at 0945 Substituted for Loratadine (CLARITIN). Start: 06-20-2019 cetirizine (ZY RTEC) tablet 10 mg ciprofloxacin 500 mg oral tablet (2 sources) Quinolone Antimicrobial End: 05-26-2019 take 1 tablet by mouth twice daily ciprofloxacin (CIPRO) 500 MG tablet Take 500 mg by mouth 2 times daily 0 05/26/2019 Discontinued (LIST CLEANUP) 1 ml dexamethasone phosphate 4 mg/ml injection (2 sources) Corticosteroid Start: 02-13-2023 End: 02-13-2023 dexAMETHasone (Decadron) injection 4 mg 12 hr dextromethorphan hydrobromide 30 mg / guaiFENesin 600 mg extended release oral tablet (12 sources) Uncompetitive C-zqperb-O-aspartat e Receptor Antagonist, Sigma-1 Agonist Start: 12-31-2022 End: 01-04-2023 take 1 tablet by mouth every twelve hours 1 tablet, Oral, Every 12 hours, First dose on 12/31/22 at 0900 Do not crush, chew, or split. Start: 03-27-2022 End: 01-04-2023 take 1 tablet by mouth every twelve hours Dextromethorphan-guaiFENesin (Mucinex DM ) 30-600 MG tablet sustained-release 12 hour Take 1 tablet by mouth in the morning and 1 tablet in the evening. 28 tablet 0 03/27/2022 01/04/2023 Discontinued (Stop taking at discharge) DM-APAP-CPM (CORICIDIN HBP P O) (3 sources) End: 06-22-2019 DM-APAP-CPM (CORICIDIN HBP P O) Take by mouth every 12 hours as needed 0 06/22/2019 Discontinued (Stop Taking at Discharge) DM-APAP-CPM (COR ICIDIN HBP PO) Take by mouth every 12 hours as needed 0 Active docusate sodium 100 mg oral capsule (7 sources) Start: 06-05-2021 take 1 capsule by mouth twice daily docusate sodium (COLACE) 100 mg capsule Take 100 mg by mouth twice daily. 0 06/05/2021 Active Comment on above: Take 100 mg by mouth twice daily. docusate sodium 50 mg / sennosides, half-way 8.6 mg oral tablet (2 sources) Start: 01-03-2023 End: 01-04-2023 senna-docusate sodium (Senokot-S) 8.6-50 MG tablet 2 tablet 0.4 ml enoxaparin sodium 100 mg/ml prefilled syringe (8 sources) Low Molecular Weight Heparin Start: 04-07-2024 End: 04-11-2024 inject 40 mg by subcutaneous injection every twenty-four hours 40 mg, SubCUTAneous, Every 24 hours scheduled (Daily), First dose on Sun04/07/24 at 1215, Indication of Use: Prophylaxis-DVT/PE, Indications: Prophylaxis of Venous Thromboembolism Start: 02-13-2023 End: 02-19-2023 inject 40 mg by subcutaneous injection every twenty-four hours 40 mg, SubCUTAneous, Every 24 hours scheduled (Daily), First dose on Sun02/13/23 at 1700, Indication of Use: Prophylaxis-DVT/PE, Indications: Prophylaxis of Venous Thromboembolism Start: 12-31-2022 End: 01-04-2023 inject 40 mg by subcutaneous injection every twenty-four hours 40 mg, SubCUTAneous, Every 24 hours scheduled (Daily), First dose on Sun12/31/22 at 0900 Indication of Use: Prophylaxis-DVT/PE Indications: Prophylaxis of Venous Thromboembolism Start: 10-06-2020 inject 40 mg by subc utaneous injection once daily 40 mg, Subcutaneous, DAILY, First dose on Sun10/06/20 at 0945 Start: 06-20-2019 inject 40 mg by subc utaneous injection once daily 40 mg, Subcutaneous, DAILY, First dose on Sun06/20/19 at 1000 escitalopram 20 mg oral tablet (20 sources) Serotonin Reuptake Inhibitor Start: 02-13-2023 End: 02-19-2023 take 10 mg by mouth once daily 10 mg, Oral, Daily, First dose on Sun02/13/23 at 1630 Start: 06-20-2019 End: 06-20-2019 take 5 mg by mouth once daily 5 mg, Oral, DAILY, First dose on Sun06/20/19 at 1000 End: 04-07-2024 take 1 tablet by mouth once daily escitalopram (Lexapro) 10 MG tablet Take 10 mg by mouth daily. 04/07/2024 Discontinued (Therapy completed) End: 06-20-2019 take 5 mg by mouth once daily escitalopram (LEXAPRO) 1 0 MG tablet Take 5 mg by mouth daily 0 06/20/2019 Discontinued (Therapy completed) 120 actuat fluticasone propionate 0.11 mg/actuat metered dose inhaler (20 sources) Corticosteroid Start: 04-07-2024 End: 04-11-2024 take 2 puff(s) by mouth twice daily 2 puff, Inhalation, 2 times daily, First dose on Sun04/07/24 at 2000, Rinse mouth with water after use to reduce aftertaste and incidence of candidiasis. Do not swallow. Start: 01-02-2023 End: 01-04-2023 fluticasone (Flonase) nasal spray 2 spray Start: 05-20-2021 End: 09-06-2022 take 2 puff(s) by inhalation in the morning fluticasone (Flovent) 110 MCG/ACT inhaler Inhale 2 puffs in the morning and 2 puffs before bedtime. 05/20/2021 Active Start: 05-20-2021 End: 01-04-2023 take 2 puff(s) by inhalation twice daily FLOVENT HFA 110 mcg/actuation inhaler Inhale 2 Puffs as instructed twice daily. 0 05/20/2021 Active Start: 05-20-2021 take 2 puff(s) by in halation twice daily FLOVENT HFA 110 mcg/actuation inhaler INHALE 2 PUFFS INTO THE LUNGS TWICE A DAY 0 05/20/2021 Active Start: 04-13-2021 End: 04-13-2022 take 2 puff(s) by inhalation twice daily fluticasone (FLOVENT HFA) 110 MCG/ACT inhaler Inhale 2 puffs into the lungs 2 times daily 12 g 3 04/13/2021 04/13/2022 Active Start: 06-20-2019 fluticasone (F LONASE) 50 MCG/ACT nasal spray 2 spray Comment on above: INHALE 2 PUFFS INTO THE LUNGS TWICE A DAY Inhale 2 Puffs as in structed twice daily. 4 ml furosemide 10 mg/ml injection (3 sources) Loop Diuretic Start: 02-13-2023 End: 02-13-2023 furosemide (Lasix) injection 40 mg Start: 10-06-2020 End: 10-06-2020 furosemide (LASIX) injection 20 mg 12 hr guaiFENesin 600 mg extended release oral tablet (20 sources) Start: 02-14-2023 End: 02-19-2023 guaiFENesin (Mucinex) 12 hr tablet 600 mg Start: 06-20-2019 take 600 mg by mouth twice daily 600 mg, Oral, 2 TIMES DAILY, First dose on Sun06/20/19 at 1100 Start: 02-15-2016 guaiFENesin 20 0 mg tablet GUAIFENESIN TABS as needed GUAIFENESIN TABS [id number] 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 0 02/15/2016 Active End: 06-22-2019 take 10 mg by mouth every twelve hours as needed GUAIFENESIN PO Take 10 mg by mouth every 12 hours as needed 0 06/22/2019 Discontinued (Stop Taking at Discharge) take 10 mg by mouth every twelve hours as needed GUAIFENESIN PO Take 10 mg by mouth every 12 hours as needed 0 Active Comment on above: GUAIFENESIN TABS as needed GUAIFENESIN TABS [id number] 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 ibuprofen 400 mg oral tablet (2 sources) Nonsteroidal Anti-inflammatory Drug Start: End: ibuprofen tablet 200 mg iopamidol (ISOVUE-370) 76 % injection 75 mL (1 source) Start: End: iopamidol (ISOVUE-370) 76 % injection 75 mL iopamidol (Isovue-370) 76 % injection 75 mL (2 sources) Start: End: take 75 mL intravenously once as needed 75 mL, IntraVENous, IMG once PRN, contrast, Starting on Sun04/07/24 at 0540, For 1 dose ipratropium bromide 0.042 mg/actuat metered dose nasal spray (20 sources) Anticholinergic Start: End: take 2 spray(s) nasal route four times daily 2 spray, Each Nostril, 4 times daily, First dose on Sun04/07/24 at 1300 Start: 03-18-2023 Ipratropium Br omide 42 mcg (0.06 %) spray,non-aerosol Active 2 NMA INTRANASAL DAILY March 18, 2023 1:00am Start: 03-18-2023 Ipratropium Br omide Active 2 SPRAY INTRANASAL DAILY March 18, 2023 12:00am Start: 06-15-2021 ipratropium (A trovent) 0.06 % nasal spray Administer 2 sprays into affected nostril(s). 06/15/2021 Active Start: 06-15-2021 End: 11-24-2022 take 2 spray(s) nasal route three times daily ipratropium bromide (ATROVENT) 42 mcg (0.06 %) nasal spray INHALE 2 SPRAYS INTO EACH NOSTRIL THREE TIMES DAILY 45 mL 3 11/24/2022 Active Start: 10-06-2020 2 spray, Nasal , 4 TIMES DAILY, First dose on Sun10/06/20 at 2130 Start: 06-20-2019 2 spray, Nasal , 4 TIMES DAILY, First dose on Sun06/20/19 at 1300 ipratropium (ATR OVENT) 0.06 % nasal spray 2 sprays by Nasal route 4 times daily 0 Active Comment on above: 2 SPRAYS INTO EACH N OSTRIL THREE TIMES DAILY INHALE 2 SPRAYS INTO EACH NOSTRIL THREE TIMES DAILY lidocaine 0.04 mg/mg medicated patch (11 sources) Antiarrhythmic, Amide Local Anesthetic Start: End: apply 1 dose topically once daily, then apply 1 dose topically every twelve hours 1 patch, Topical, Administer over 12 Hours, Daily, First dose on Sun04/07/24 at 1430, Apply patch to back. Patch may remain in place for up to 12 hours in any 24 hour period. Start: 02-13-2023 End: 02-13-2023 lidocaine (Xylocaine) 1 % injection 20 mL apply 1 dose transde rmal route twice daily Lidocaine 4 % patch Place 1 patch on the skin 2 times daily. Removed at bed time Active loperamide hydrochloride 2 mg oral capsule (2 sources) Opioid Agonist Start: 12-31-2022 End: 01-04-2023 loperamide (Imodium) capsule 2 mg Magnesium Hydroxide (20 sources) Start: 03-18-2023 End: 03-21-2023 take 1 mL by mouth once daily as needed for constipation Magnesium Hydroxide ([place] Milk Of Magnesia) 400 mg/5 mL suspension Discontinued 30 mL PO DAILY as needed for constipation March 18, 2023 1:00am March 21, 2023 5:28pm Start: 03-18-2023 End: 03-21-2023 take 1 mL by mouth once daily Magnesium Hydroxide ([place] Milk Of Magnesia) 400 mg/5 mL suspension Discontinued 30 ML PO DAILY March 18, 2023 12:00am March 21, 2023 4:28pm magnesium hydrox charleen (Milk of Magnesia) 800 MG/5ML suspension Take by mouth Daily as needed for constipation. Active melatonin 3 mg oral tablet (4 sources) Start: 04-07-2024 End: 04-11-2024 take 3 mg by mouth once daily 3 mg, Oral, Nightly, First dose on 04/07/24 at 2100 Start: 02-14-2023 End: 02-19-2023 melatonin tablet 5 mg meloxicam (3 sources) Nonsteroidal Anti-inflammatory Drug End: 06-20-2019 MELOXICAM PO Take by mouth every 6 hours as needed 0 06/20/2019 Discontinued (Therapy completed) MELOXICAM PO Myke e by mouth every 6 hours as needed 0 Active methocarbamol 500 mg oral tablet (2 sources) Muscle Relaxant Start: 04-09-2024 End: 04-11-2024 take 1 tablet by mouth every eight hours as needed 500 mg, Oral, Every 8 hours PRN, muscle spasms, Pain, Starting on Sun04/09/24 at 1732 methylPREDNISolone 40 mg injection (2 sources) Corticosteroid Start: 12-31-2022 End: 01-02-2023 take 20 mg intravenously every eight hours methylPREDNISolone sod suc (PF) (SOLU-Medrol) 40 MG injection 20 mg metroNIDAZOLE 500 mg oral tablet (4 sources) Nitroimidazole Antimicrobial End: 06-20-2019 take 1 tablet by mouth three times daily metroNIDAZOLE (FLAGYL) 500 MG tablet Take 500 mg by mouth 3 times daily 0 06/20/2019 Discontinued (Therapy completed) mineral oil 0.319 mg/mg / petrolatum 0.577 mg/mg ophthalmic ointment (2 sources) Start: 04-07-2024 End: 04-11-2024 mometasone furoate 0.05 mg/actuat metered dose nasal spray (4 sources) Corticosteroid End: 06-20-2019 mometasone (NASONEX) 50 MCG/ACT nasal spray 2 sprays by Nasal route daily 0 06/20/2019 Discontinued (Therapy completed) 1 ml morphine sulfate 4 mg/ml injection (1 source) Opioid Agonist Start: 06-05-2021 End: 06-05-2021 morphine sulfate (PF) injection 4 mg 1 ml naloxone hydrochloride 0.4 mg/ml injection (2 sources) Opioid Antagonist Start: 04-07-2024 End: 04-11-2024 0.4 mg, IntraVENous, Every 5 min PRN, opioid reversal, respiratory depression, Starting on Sun04/07/24 at 1423, +++ For RR 2 ml ondansetron 2 mg/ml injection (20 sources) Serotonin-3 Receptor Antagonist Start: 04-07-2024 End: 04-07-2024 4 mg, IntraVENous, Once, On Sun04/07/24 at 0925, For 1 dose Start: 04-07-2024 End: 04-07-2024 4 mg, IntraVENous, Once, On Sun04/07/24 at 0925, For 1 dose Start: 03-18-2023 take 1 tablet by alejandro th every eight hours as needed for nausea and vomiting Ondansetron 4 mg tablet,disintegrating Active 4 mg PO Q8H as needed for nausea and vomiting March 18, 2023 1:00am Start: 06-05-2021 End: 06-05-2021 ondansetron (ZOFRAN) injecti on 4 mg ondansetron ODT (Zofran-ODT) disintegrating tablet 4 mg (6 sources) Start: 04-07-2024 End: 04-11-2024 take 1 tablet by mouth every eight hours as needed for nausea and vomiting ondansetron ODT (Zofran-ODT) disintegrating tablet 4 mg Start: 02-13-2023 End: 02-19-2023 take 1 tablet by mouth every eight hours as needed for nausea and vomiting ondansetron ODT (Zofran-ODT) disintegrating tablet 4 mg Start: 12-31-2022 End: 01-04-2023 take 1 tablet by mouth every eight hours as needed for nausea and vomiting ondansetron ODT (Zofran-ODT) disintegrating tablet 4 mg pantoprazole 40 mg delayed release oral tablet (20 sources) Proton Pump Inhibitor Start: 04-08-2024 End: 04-11-2024 take 40 mg by mouth once daily before breakfast 40 mg, Oral, Daily before breakfast, First dose on Sun04/08/24 at 0600, Substituted for omeprazole (Prilosec). Do not crush, chew, or split. Start: 09-13-2021 End: 02-19-2023 take 1 tablet by mouth once daily pantoprazole (ProtoNix) 40 MG EC tablet TAKE 1 TABLET BY MOUTH ONCE DAILY. 30 MINUTES BEFORE EATING. 0 01/07/2022 02/19/2023 Discontinued (Stop taking at discharge) Start: 04-18-2021 End: 07-17-2021 take 1 tablet by mouth once daily pantoprazole DR (PROTONIX) 40 mg tablet Take 1 tablet by mouth once daily. 30 minutes before eating. 90 tablet 1 04/18/2021 Active Start: 10-06-2020 take 40 mg by mouth once daily before breakfast 40 mg, Oral, DAILY BEFORE BREAKFAST, First dose on Sun10/06/20 at 0700 Do not crush or break. Substituted for Omeprazole (PRILOSEC). Start: 06-20-2019 pantoprazole ( PROTONIX) tablet 20 mg Comment on above: Take 1 tablet by alejandro th once daily. 30 minutes before eating. perflutren lipid microspheres (DEFINITY) injection 1.65 mg (1 source) Start: 1 End: 1 perflutren lipid microspheres (DEFINITY) injection 1.65 mg phenazopyridine hydrochloride 100 mg oral tablet (9 sources) Start: 4 End: 4 take 100 mg by mouth three times daily at mealtime 100 mg, Oral, 3 times daily with meals, First dose on Sun04/07/24 at 1700 take 1 tablet by mouth twice corey ly phenazopyridine (Pyridium) 100 MG tablet Take 100 mg by mouth 2 times daily. Active polyethylene glycol 3350 44683 mg powder for oral solution (20 sources) Osmotic Laxative Start: 03-18-2023 End: 04-11-2024 17 g, Oral, Daily, First dose (after last reorder) on Sun04/07/24 at 1215 Start: 02-13-2023 End: 02-19-2023 take 17 g by mouth every twenty-four hours as needed for constipation 17 g, Oral, Daily PRN, constipation, Starting on Sun02/13/23 at 1616, 1st line for treatment of constipation - give scheduled if no bowel movement in past 24 hours. Start: 12-31-2022 End: 01-04-2023 polyethylene glycol (PEG) 33 50 (Miralax) packet 17 g Start: 10-06-2020 17 g, Oral, DA KEENAN, First dose on Sun10/06/20 at 0945 Start: 06-20-2019 End: 06-22-2019 polyethylene glycol (GLYCOLA X) packet 17 g 100 ml potassium chloride 0. 1 meq/ml injection (8 sources) Start: 04-11-2024 End: 04-11-2024 10 mEq, IntraVENous, at 100 mL/hr, Administer over 1 Hours, Every 1 hour, First dose on Sun04/11/24 at 0815, For 2 doses, Total dose: 20 mEq Start: 04-09-2024 End: 04-09-2024 10 mEq, IntraVENous, at 100 mL/hr, Administer over 1 Hours, Every 1 hour, First dose on Sun04/09/24 at 1800, For 2 doses, Total dose is 20 mEq of potassium chloride Start: 12-31-2022 End: 12-31-2022 potassium chloride CR (Klor- Con M10) ER tablet 10 mEq Start: 12-31-2022 End: 12-31-2022 potassium chloride (Klor-Con ) packet 40 mEq psyllium 3400 mg powder for oral suspension (9 sources) Start: 04-07-2024 End: 04-11-2024 take 3.4 g by mouth once daily 3.4 g of fiber, Oral, Daily, First dose on Sun04/07/24 at 1430 take 1 capsule by mouth once corey ly psyllium (Metamucil) 0.52 g capsule Take 1 capsule by mouth daily. Active sertraline 25 mg oral tablet (9 sources) Serotonin Reuptake Inhibitor Start: 04-08-2024 End: 04-11-2024 take 25 mg by mouth once daily in the morning 25 mg, Oral, Every morning, First dose on Sun04/08/24 at 0900 simethicone 80 mg chewable tablet (2 sources) Start: 04-09-2024 End: 04-11-2024 take 80 mg by mouth four times daily as needed 80 mg, Oral, 4 times daily PRN, flatulence, Starting on Sun04/09/24 at 1733 simvastatin 20 mg oral tablet (20 sources) HMG-CoA Reductase Inhibitor Start: 06-20-2019 End: 04-07-2024 take 1 tablet by mouth in the morning simvastatin (Zocor) 20 MG tablet Take 20 mg by mouth in the morning. 12/08/2021 04/07/2024 Discontinued (Therapy completed) Comment on above: TAKE 1 TABLET EVERY DAY TAKE 1 TABLET BY ALEJANDRO TH EVERY DAY 1000 ml sodium chloride 9 mg/ml injection (20 sources) Start: 04-07-2024 End: 04-11-2024 take 100 mL intravenously every hour 100 mL/hr, IntraVENous, Continuous, Starting on Sun04/07/24 at 1215 Start: 02-13-2023 End: 02-19-2023 10 mL, IntraVENous, Every 12 hours scheduled (2 times per day), First dose on Sun02/13/23 at 2100 Start: 02-13-2023 End: 02-19-2023 take 100 mL intravenously every hour as needed, then take 20 mL intravenously every hour as needed 5-250 mL/hr, IntraVENous, PRN, if patient receiving piggyback infusions and maintenance fluids are not ordered OR KVO fluids to protect IV site / prevent frequent line interruptions/ long duration, Starting on Sun02/13/23 at 1616, For piggyback infusion, administer at same rate as piggyback for a total of 25 mL. Enter 25 mL into dose field and piggyback rate into rate field of order. If piggyback is infusing at a rate less than 100 mL/hr, enter 25 mL into dose field and 100 mL/hr into rate field of order. For KVO fluids, enter rate of 20 mL/hr or less into rate field of order. Start: 02-13-2023 End: 02-19-2023 take 10 mL intravenously once as needed 10 mL, IntraVENous, PRN, line care, Starting on Sun02/13/23 at 1616, After every IV line use Start: 12-31-2022 End: 01-04-2023 10 mL, IntraVENous, Every 12 hours scheduled (2 times per day), First dose on Sun12/31/22 at 0900 Start: 12-31-2022 End: 01-04-2023 5-250 mL/hr, IntraVENous, ID N, if patient receiving piggyback infusions and maintenance fluids are not ordered OR KVO fluids to protect IV site / prevent frequent line interruptions/ long duration, Starting on Sun12/31/22 at 0204 For piggyback infusion, administer at same rate as piggyback for a total of 25 mL. Enter 25 mL into dose field and piggyback rate into rate field of order. If piggyback is infusing at a rate less than 100 mL/hr, enter 25 mL into dose field and 100 mL/hr into rate field of order. For KVO fluids, enter rate of 20 mL/hr or less into rate field of order. Start: 12-31-2022 End: 01-04-2023 take 10 mL intravenously once 10 mL, IntraVENous, PRN, line care, Starting on Sun12/31/22 at 0204 After every IV line use Start: 06-05-2021 0.9 % sodium c hloride infusion Start: 10-06-2020 take 1 dose intraven ously twice daily 5-40 mL, Intravenous, EVERY 12 HOURS SCHEDULED (2 times per day), First dose on Sun10/06/20 at 0945 For Line Patency: Peripheral IV = 5 mL; Midline or Central Line = 10 mL/lumen. If following IV push medication, administer flush at same rate as the IV push. Flush volume is determined by type of infusion therapy being given. For non-viscous solutions use: Peripheral IV = 5 mL Midline or Central Line = 10 mL/lumen For viscous solutions (i.e. blood components, parenteral nutrition, contrast media, or after obtaining blood sample) use: Peripheral IV = 10 mL Midline or Central Line = 20 mL/lumen Start: 10-06-2020 take 25 mL intraveno usly every hour as needed 25 mL, Intravenous, at 100 mL/hr, PRN, If patient receiving piggyback infusions without ordered maintenance IV fluids or with frequent/long duration piggyback infusions, Starting on Sun10/06/20 at 0919 Administer at the same rate as the piggyback being infused. Start: 10-06-2020 take 5-40 mL intrave nously once as needed 5-40 mL, Intravenous, PRN, Line Care, After every IV line use, Starting on Sun10/06/20 at 0919 For Line Patency: Peripheral IV = 5 mL; Midline or Central Line = 10 mL/lumen. If following IV push medication, administer flush at same rate as the IV push. Flush volume is determined by type of infusion therapy being given. For non-viscous solutions use: Peripheral IV = 5 mL Midline or Central Line = 10 mL/lumen For viscous solutions (i.e. blood components, parenteral nutrition, contrast media, or after obtaining blood sample) use: Peripheral IV = 10 mL Midline or Central Line = 20 mL/lumen Start: 06-22-2019 sodium chlorid e (Inhalant) 3 % nebulizer solution 4 mL Start: 06-20-2019 10 mL, Intrave nous, EVERY 12 HOURS SCHEDULED (2 times per day), First dose on Sun06/20/19 at 0945 Start: 06-20-2019 take 10 mL intraveno us route once as needed 10 mL, Intravenous, PRN, Line Care, After every IV line use, Starting Sun06/20/19 at 0924 Start: 05-26-2019 End: 05-26-2019 0.9 % sodium chloride bolus stomahesive in petrolatum (E T Mix) (4 sources) Start: 04-08-2024 End: 04-11-2024 Topical, 3 times daily, Firs t dose on Sun04/08/24 at 1400, Bilateral buttocks: MASD due to bodily fluids -Cleanse with soap and water, pat dry, apply ET mix and leave BUSINESS INTELLIGENCE ENGINEER TID and PRN Start: 04-08-2024 End: 04-11-2024 Topical, PRN, buttocks, Star ting on Sun04/08/24 at 1231, Bilateral buttocks: MASD due to bodily fluids -Cleanse with soap and water, pat dry, apply ET mix and leave MADDISON TID and PRN tamsulosin hydrochloride 0.4 mg oral capsule (20 sources) alpha-Adrenergic Nick Start: 03-21-2023 End: 04-11-2024 take 0.4 mg by mouth once daily 0.4 mg, Oral, Daily, First dose on Sun04/07/24 at 1200, Do not crush, chew, or split. Start: 02-13-2023 End: 11-06-2023 take 0.4 mg by mouth once daily 0.4 mg, Oral, Daily, F irst dose on Tu02/13/23 at 1630, Do not crush, chew, or split. Start: 06-20-2019 End: 01-04-2023 tamsulosin (Flomax) 24 hr ca psule 0.4 mg traMADol hydrochloride 50 mg oral tablet (20 sources) Opioid Agonist Start: 03-18-2023 End: 04-11-2024 take 1 tablet by mouth every eight hours as needed for pain 50 mg, Oral, Every 8 hours PRN, severe pain (7-10), Starting on Sun04/07/24 at 1420, Max of 300 mg daily for patients > 75 years of age. Start: 02-13-2023 End: 02-22-2023 take 1 tablet by mouth every eight hours as needed for pain traMADol (Ultram) 50 MG tablet Indications: Chronic pain of left knee Take 1 tablet (50 mg) by mouth every 8 hours as needed for moderate pain (4-6) or severe pain (7-10) for up to 3 days. 8 tablet 0 02/19/2023 02/22/2023 Start: 07-12-2022 End: 07-19-2022 take 1-2 tablets by mouth every six hours as needed for pain traMADol (ULTRAM) 50 mg tablet Indications: Primary osteoarthritis of left knee Take 1-2 tablets by mouth every 6 hours as needed for pain for up to 7 days. 28 tablet 1 07/12/2022 07/19/2022 Active Start: 06-20-2019 End: 06-20-2019 take 50 mg by mouth every six hours as needed for pain 50 mg, Oral, EVERY 6 HOURS PRN, Pain Moderate (4-6), Starting Sun06/20/19 at 0923 Comment on above: Take 1-2 tablets by mouth every 6 hours as needed for pain for up to 7 days. 1 ml triamcinolone acetonide 40 mg/ml injection (5 sources) Corticosteroid Start: 02-13-2023 End: 02-13-2023 triamcinolone acetonide (Kenalog-40) injection 10 mg Start: 10-23-2022 End: 10-23-2022 triamcinolone acetonide 40 m g injection (KeNALog 40) Start: 06-12-2022 End: 06-12-2022 triamcinolone acetonide 80 m g injection (KeNALog 40) Start: 10-10-2021 End: 10-10-2021 triamcinolone acetonide 80 m g injection (KeNALog 40) vitamin b12 1 mg oral tablet (20 sources) Vitamin B12 Start: 04-07-2024 End: 04-11-2024 take 1000 ug by mouth once daily 1,000 mcg, Oral, Daily, First dose on Sun04/07/24 at 1200 Start: 03-18-2023 take 2 capsules by m outh once daily Cyanocobalamin (Vitamin B-12) 1,000 mcg capsule Active 2000 ug PO DAILY March 18, 2023 1:00am Start: 03-18-2023 take 2000 ug by mout h once daily Cyanocobalamin (Vitamin B-12) Active 2000 MCG PO DAILY March 18, 2023 12:00am Start: 02-13-2023 End: 02-14-2023 take 1000 ug by mouth once daily 1,000 mcg, Oral, Daily, First dose on Sun02/13/23 at 1630 Start: 12-31-2022 End: 01-04-2023 take 1000 ug by mouth once daily 1,000 mcg, Oral, Daily, First dose on 12/31/22 at 0900 Start: 10-07-2020 take 1000 ug by mout h once daily 1,000 mcg, Oral, DAILY, First dose on Debbi 10/07/20 at 0900 Cyanocobalamin ( VITAMIN B-12 PO) Take 1,000 mcg by mouth 0 Active End: 06-22-2019 take 1000 ug by mouth once daily Cyanocobalamin (VITAMIN B 12 PO) Take 1,000 mcg by mouth daily 0 06/22/2019 Discontinued (Stop Taking at Discharge) take 1000 ug by mout h once daily Cyanocobalamin (VITAMIN B 12 PO) Take 1,000 mcg by mouth daily 0 Active Problems Active Problems Problem Classification Problem Date Documented Da te Episodic/Chronic Acute bronchitis (1 source) Acute bronchitis, unspecified; Translations: [Acute bronchitis, unspecified] Onset: 10-03-2024 Episodic Administrative/social admission (2 sources) Patient encounter status; Translations: [Other specified counseling] 06-04-2023 Episodic Anxiety disorders (1 source) Anxiety; Translations: [Anxiety disorder, unspecified] 06-04-2023 Chronic Asthma (20 sources) Unspecified asthma, uncomplicated; Translations: [Acute exacerbation of asthma] Onset: 12-19-2017 06-20-2019 Chronic Calculus of urinary tract (20 sources) Calculus of ureter; Translations: [Calculus of kidney] Onset: 09-28-2016 09-28-2016 Episodic Chronic obstructive pulmonary disease and bronchiectasis (8 sources) Pulmonary emphysema; Translations: [Emphysema, unspecified] Onset: 05-21-2023 Chronic Congestive heart failure; nonhypertensive (2 sources) Chronic diastolic heart failure; Translations: [Chronic diastolic (congestive) heart failure] Onset: 03-08-2021 Resolved: 04-25-2021 04-25-2021 Chronic Disorders of lipid metabolism (3 sources) Hyperlipidemia, unspecified; Translations: [Hyperlipidemia, unspecified] Onset: 12-19-2017 Chronic Diverticulosis and diverticulitis (2 sources) Diverticulosis of intestine, part unspecified, without perforation or abscess without bleeding; Translations: [Dvrtclos of intest, part unsp, w/o perf or abscess w/o bleed] Onset: 11-22-2017 Chronic Esophageal disorders (2 sources) Gastro-esophageal reflux disease without esophagitis; Translations: [Gastro-esophageal reflux disease without esophagitis] Onset: 12-19-2017 Chronic Genitourinary congenital anomalies (20 sources) Hydronephrosis with ureteropelvic junction obstruction; Translations: [Congenital occlusion of ureteropelvic junction] Onset: 09-28-2016 09-28-2016 Chronic Genitourinary symptoms and ill-defined conditions (10 sources) Retention of urine; Translations: [Retention of urine, unspecified] Onset: 02-27-2024 Episodic Hyperplasia of prostate (20 sources) Benign prostatic hyperplasia without lower urinary tract symptoms; Translations: [Benign prostatic hypertrophy with outflow obstruction] Onset: 01-18-2017 08-02-2017 Chronic Malaise and fatigue (20 sources) Asthenia; Translations: [Weakness] Onset: 02-14-2023 12-13-2022 Episodic Nutritional deficiencies (8 sources) Malnutrition (calorie); Translations: [Moderate protein-calorie malnutrition] Onset: 04-09-2024 04-09-2024 Chronic Osteoarthritis (10 sources) Unspecified osteoarthritis, unspecified site; Translations: [Osteoarthritis of left knee joint] Onset: 12-19-2017 Chronic Other aftercare (1 source) Post-discharge follow-up; Translations: [Encounter for follow-up examination after completed treatment for conditions other than malignant neoplasm] 01-18-2023 Episodic Other circulatory disease (2 sources) History of atrial flutter; Translations: [Personal history of other diseases of the circulatory system] 03-05-2023 Episodic Other connective tissue disease (2 sources) Presence of unspecified orthopedic joint implant; Translations: [Presence of unspecified orthopedic joint implant] Onset: 12-19-2017 Chronic Other connective tissue disease (1 source) Pain in hallux; Translations: [Pain in right toe(s)] Episodic Other diseases of kidney and ureters (2 sources) Other specified disorders of kidney and ureter; Translations: [Other specified disorders of kidney and ureter] Onset: 11-22-2017 Chronic Other diseases of kidney and ureters (2 sources) Other obstructive and reflux uropathy; Translations: [Other obstructive and reflux uropathy] Onset: 01-29-2022 Episodic Other infections; including parasitic (1 source) Personal history of other infectious and parasitic diseases; Translations: [History of COVID-19] 05-21-2023 Episodic Other injuries and conditions due to external causes (1 source) Aspiration into respiratory tract; Translations: [Unspecified foreign body in respiratory tract, part unspecified causing other injury, initial encounter] Episodic Other injuries and conditions due to external causes (2 sources) At risk for falls ; Translations: [History of falling] 03-18-2023 Episodic Other injuries and conditions due to external causes (1 source) History of falling; Translations: [History of fall] 03-22-2023 Episodic Other liver diseases (2 sources) Liver disease, unspecified; Translations: [Liver disease, unspecified] Onset: 11-22-2017 Chronic Other lower respiratory disease (1 source) Fibrosis of lung; Translations: [Pulmonary fibrosis, unspecified] Chronic Other lower respiratory disease (2 sources) Interstitial lung disease; Translations: [Interstitial pulmonary disease, unspecified] Chronic Other lower respiratory disease (1 source) Chronic cough; Translations: [Chronic cough] 02-27-2023 Episodic Other lower respiratory disease (1 source) Restrictive lung disease; Translations: [Other disorders of lung] 05-21-2023 Episodic Other nervous system disorders (2 sources) Other chronic pain; Translations: [Other chronic pain] Onset: 12-19-2017 Chronic Other nervous system disorders (1 source) Difficulty walking; Translations: [Difficulty in walking, not elsewhere classified] 12-13-2022 Chronic Other nervous system disorders (20 sources) Unable to walk; Translations: [Difficulty in walking, not elsewhere classified] Onset: 02-13-2023 02-13-2023 Chronic Other non-traumatic joint disorders (5 sources) Pain in left knee; Translations: [Pain in joint, lower leg] 02-13-2023 Episodic Other nutritional; endocrine; and metabolic disorders (2 sources) Body mass index (BMI) 36.0-36.9, adult; Translations: [Body mass index (BMI) 36.0-36.9, adult] Onset: 12-19-2017 Chronic Other nutritional; endocrine; and metabolic disorders (2 sources) Obesity, unspecified; Translations: [Obesity, unspecified] Onset: 12-19-2017 Chronic Other nutritional; endocrine; and metabolic disorders (12 sources) Obesity; Translations: [Other obesity due to excess calories] Onset: 11-04-2020 11-04-2020 Chronic Other nutritional; endocrine; and metabolic disorders (20 sources) Obesity caused by energy imbalance; Translations: [Other obesity due to excess calories] Onset: 11-04-2020 01-29-2022 Chronic Other skin disorders (1 source) Foot callus; Translations: [Corns and callosities] 10-23-2022 Episodic Other upper respiratory disease (1 source) Chronic rhinitis; Translations: [Chronic rhinitis] 02-27-2023 Chronic Pulmonary heart disease (3 sources) Pulmonary hypertension; Translations: [Pulmonary hypertension, unspecified] Onset: 05-21-2023 05-21-2023 Chronic Residual codes; unclassified (4 sources) Obstructive sleep apnea (adult) (pediatric); Translations: [Obstructive sleep apnea (adult) (pediatric)] Onset: 12-19-2017 Chronic Residual codes; unclassified (20 sources) Obstructive sleep apnea syndrome; Translations: [Obstructive sleep apnea (adult) (pediatric)] Onset: 11-04-2020 11-04-2020 Chronic Residual codes; unclassified (2 sources) Edema of lower extremity; Translations: [Localized edema] 12-31-2022 Episodic Residual codes; unclassified (2 sources) Bilateral lower limb edema; Translations: [Localized edema] 02-13-2023 Episodic Residual codes; unclassified (2 sources) Activity of daily living (ADL) alteration; Translations: [Other specified health status] 03-18-2023 Episodic Residual codes; unclassified (1 source) Other specified health status; Translations: [Other specified conditions influencing health status] 03-22-2023 Episodic Residual codes; unclassified (1 source) At risk for constipation; Translations: [Other specified personal risk factors, not elsewhere classified] 06-04-2023 Episodic Respiratory failure; insufficiency; arrest (adult) (6 sources) Dependence on nocturnal oxygen therapy; Translations: [Dependence on supplemental oxygen] Onset: 05-21-2023 03-05-2023 Chronic Spondylosis; intervertebral disc disorders; other back problems (2 sources) Other specified inflammatory spondylopathies, thoracolumbar region; Translations: [Oth inflammatory spondylopathies, thoracolumbar region] Onset: 05-02-2018 Chronic Spondylosis; intervertebral disc disorders; other back problems (2 sources) Acute low back pain; Translations: [Acute left-sided low back pain without sciatica] Episodic Thyroid disorders (1 source) Hypothyroidism, unspecified; Translations: [Hypothyroidism, unspecified] Onset: 09-24-2024 Chronic Unclassified (1 source) Personal history of COVID-19; Translations: [Personal history of COVID-19] Onset: 05-21-2023 Urinary tract infections (20 sources) Urinary tract infectious disease; Translations: [Urinary tract infection, site not specified] Onset: 02-23-2022 06-12-2022 Episodic Past or Other Problems Problem Classification Problem Date Documented Da te Episodic/Chronic Abdominal pain (20 sources) Flank pain; Translations: [Generalized abdominal pain] Onset: 09-28-2016 09-28-2016 Episodic Allergic reactions (6 sources) Allergy status to other drugs, medicaments and biological substances status; Translations: [Allergy status to sulfonamides status] Onset: 12-19-2017 Episodic E Codes: Fall (20 sources) Fall; Translations: [Unspecified fall, initial encounter] Onset: 02-22-2022 02-22-2022 Episodic Genitourinary congenital anomalies (7 sources) Hydronephrosis with ureteropelvic junction obstruction; Translations: [Hydronephrosis with ureteropelvic junction (UPJ) obstruction] Onset: 09-28-2016 09-28-2016 Episodic Influenza (20 sources) Influenza; Translations: [Influenza due to Influenza A virus] Onset: 06-20-2019 06-20-2019 Episodic Other aftercare (20 sources) Polypharmacy ; Translations: [Other middle or intermediate school principal (current) drug therapy] Onset: 02-14-2023 02-14-2023 Episodic Other circulatory disease (2 sources) Personal history of other diseases of the circulatory system; Translations: [Personal history of other diseases of the circulatory system] Onset: 05-21-2023 Episodic Other gastrointestinal disorders (20 sources) Oropharyngeal dysphagia; Translations: [Dysphagia, oropharyngeal phase] Onset: 04-25-2021 04-25-2021 Episodic Other lower respiratory disease (20 sources) Hypoxia; Translations: [Hypoxemia] Onset: 11-04-2020 11-04-2020 Episodic Other lower respiratory disease (20 sources) Dyspnea; Translations: [Shortness of breath] Onset: 10-05-2020 Episodic Other lower respiratory disease (2 sources) Other disorders of lung; Translations: [Other disorders of lung] Onset: 05-21-2023 Episodic Other skin disorders (1 source) Corns and callosities; Translations: [Callus of foot] Onset: 10-23-2022 Episodic Residual codes; unclassified (2 sources) Patient's noncompliance with other medical treatment and regimen; Translations: [Patient's noncompliance w oth medical treatment and regimen] Onset: 12-12-2017 Episodic Residual codes; unclassified (2 sources) Acquired absence of other specified parts of digestive tract; Translations: [Acquired absence of other specified parts of digestive tract] Onset: 12-19-2017 Episodic Residual codes; unclassified (1 source) Procedure and treatment not carried out due to patient leaving prior to being seen by health care provider; Translations: [Patient left after triage] Onset: 01-20-2019 Episodic Residual codes; unclassified (20 sources) H/O: urinary disease; Translations: [Personal history of other specified conditions] Onset: 02-14-2023 02-14-2023 Episodic Residual codes; unclassified (20 sources) At risk of delirium; Translations: [Other specified personal risk factors, not elsewhere classified] Onset: 02-14-2023 02-14-2023 Episodic Thyroid disorders (2 sources) Disorder of thyroid, unspecified; Translations: [Disorder of thyroid, unspecified] Onset: 12-19-2017 Episodic Unclassified (1 source) Personal history of COVID-19; Translations: [Personal history of COVID-19] Onset: 05-21-2023 Results Test Name Value Interpretation Reference Range Facility CBC-Complete Blood Cnt No Di ffon 09-11-2024 Erythrocyte distribution width (RBC) [Ratio] 15.2 % High 11.6-14.6 [facility] Comment on above: Order Comment: 306.1 Performed By: #### L [id number], L100.0500 #### [facility] [address] [place], [address] Hematocrit (Bld) [Volume fraction] 38.7 % Low 40-54 [facility] Comment on above: Order Comment: 306.1 Performed By: #### L [id number], L100.0500 #### [facility] [address] [place], [address] Hemoglobin (Bld) [Mass/Vol] 12.9 g/dL Low 13.0-16.5 [facility] Comment on above: Order Comment: 306.1 Performed By: #### L [id number], L100.0500 #### [facility] [address] [place], [address] MCH (RBC) [Entitic mass] 27.4 pg Normal 27.0-32.0 [facility] Comment on above: Order Comment: 306.1 Performed By: #### L [id number], L100.0500 #### [facility] [address] [place], [address] MCHC (RBC) [Mass/Vol] 33.3 g/dL Normal 32-36 [facility] Comment on above: Order Comment: 306.1 Performed By: #### L [id number], L100.0500 #### [facility] [address] [place], [address] MCV (RBC) [Entitic vol] 82.3 fL Normal 80-94 [facility] Comment on above: Order Comment: 306.1 Performed By: #### L [id number], L100.0500 #### [facility] [address] [place], [address] Platelet mean volume (Bld) [Entitic vol] 9.6 fL Normal 6.2-12.0 [facility] Comment on above: Order Comment: 306.1 Performed By: #### L [id number], L100.0500 #### [facility] [address] [place], [address] Platelets (Bld) [#/Vol] 532 10*3/uL High 150-450 [facility] Comment on above: Order Comment: 306.1 Performed By: #### L [id number], L100.0500 #### [facility] [address] [place], [address] RBC (Bld) [#/Vol] 4.70 10*6/uL Normal 4.6-6.2 [facility] Comment on above: Order Comment: 306.1 Performed By: #### L [id number], L100.0500 #### [facility] [address] [place], [address] RDW SD 45.1 fl High 35.1-43.9 [facility] Comment on above: Order Comment: 306.1 Performed By: #### L [id number], L100.0500 #### [facility] [address] [place], [address] WBC (Bld) [#/Vol] 18.7 10*3/uL High 4.4-11.0 [facility] Comment on above: Order Comment: 306.1 Performed By: #### L [id number], L100.0500 #### [facility] [address] [place], [address] Comprehensive Metabolic Prof nvon 09-11-2024 Albumin [Mass/Vol] 3.4 g/dL Normal 3.4-4.8 [facility] Comment on above: Order Comment: 306.1 Performed By: #### L [id number], L100.0500 #### [facility] [address] [place], [address] Albumin/Globulin [Mass ratio] 1.1 {ratio} Normal 0.9-2.4 [facility] Comment on above: Order Comment: 306.1 Performed By: #### L [id number], L100.0500 #### [facility] [address] [place], [address] ALK PHOS 95 U/L Normal 40-129 [facility] Comment on above: Order Comment: 306.1 Performed By: #### L [id number], L100.0500 #### [facility] [address] [place], [address] ALT [Catalytic activity/Vol] 9 U/L Normal <=46 [facility] Comment on above: Order Comment: 306.1 Performed By: #### L [id number], L100.0500 #### [facility] [address] [place], [address] AST [Catalytic activity/Vol] 17 U/L Normal <=37 [facility] Comment on above: Order Comment: 306.1 Performed By: #### L [id number], L100.0500 #### [facility] [address] [place], [address] Bilirubin [Mass/Vol] 0.88 mg/dL Normal 0.00-1.30 [facility] Comment on above: Order Comment: 306.1 Performed By: #### L [id number], L100.0500 #### [facility] [address] [place], [address] BUN/CRE 22.6 RATIO High 10-20 [facility] Comment on above: Order Comment: 306.1 Performed By: #### L [id number], L100.0500 #### [facility] [address] [place], [address] Calcium [Mass/Vol] 9.4 mg/dL Normal 7.6-11.0 [facility] Comment on above: Order Comment: 306.1 Performed By: #### L [id number], L100.0500 #### [facility] [address] [place], [address] Chloride [Moles/Vol] 99 mmol/L Normal 98-108 [facility] Comment on above: Order Comment: 306.1 Performed By: #### L [id number], L100.0500 #### [facility] [address] [place], [address] CO2 [Moles/Vol] 25.5 mmol/L Normal 21.0-32.0 [facility] Comment on above: Order Comment: 306.1 Performed By: #### L [id number], L100.0500 #### [facility] [address] [place], [address] Creatinine [Mass/Vol] 0.60 mg/dL Low 0.70-1.20 [facility] Comment on above: Order Comment: 306.1 Performed By: #### L [id number], L100.0500 #### [facility] [address] [place], [address] GAP 10 Normal 5-15 [facility] Comment on above: Order Comment: 306.1 Performed By: #### L [id number], L100.0500 #### [facility] [address] [place], [address] GFR/1.73 sq M.predicted among non-blacks MDRD (S/P/Bld) [Vol rate/Area] 95 mL/min/{1.73_m2} Normal >60 [facility] Comment on above: Order Comment: 306.1 Result Comment: mL/m in/1.73m2 CKD-EPI Creatinine Equation (2020) Performed By: #### L [id number], L100.0500 #### [facility] [address] [place], [address] Globulin (S) [Mass/Vol] 3.2 g/dL Normal 2.2-4.2 [facility] Comment on above: Order Comment: 306.1 Performed By: #### L [id number], L100.0500 #### [facility] [address] [place], [address] Glucose [Mass/Vol] 104 mg/dL High 70-99 [facility] Comment on above: Order Comment: 306.1 Performed By: #### L [id number], L100.0500 #### [facility] [address] [place], [address] Potassium [Moles/Vol] 4.2 mmol/L Normal 3.3-5.1 [facility] Comment on above: Order Comment: 306.1 Performed By: #### L [id number], L100.0500 #### [facility] [address] [place], [address] Sodium [Moles/Vol] 134 mmol/L Normal 133-145 [facility] Comment on above: Order Comment: 306.1 Performed By: #### L [id number], L100.0500 #### [facility] [address] [place], [address] T PROT 6.6 g/dL Normal 5.9-8.4 [facility] Comment on above: Order Comment: 306.1 Performed By: #### L [id number], L100.0500 #### [facility] [address] [place], [address] Urea nitrogen [Mass/Vol] 14 mg/dL Normal 4-19 [facility] Comment on above: Order Comment: 306.1 Performed By: #### L [id number], L100.0500 #### [facility] [address] [place], [address] CBC-Complete Blood Cnt No Di ffon 08-20-2024 Erythrocyte distribution width (RBC) [Ratio] 14.2 % Normal 11.6-14.6 [facility] Comment on above: Order Comment: 306.1 Performed By: #### L 100.0500, [id number] #### [facility] [address] [place], [address] Hematocrit (Bld) [Volume fraction] 38.4 % Low 40-54 [facility] Comment on above: Order Comment: 306.1 Performed By: #### L 100.0500, [id number] #### [facility] [address] [place], [address] Hemoglobin (Bld) [Mass/Vol] 12.6 g/dL Low 13.0-16.5 [facility] Comment on above: Order Comment: 306.1 Performed By: #### L 100.0500, [id number] #### [facility] [address] [place], [address] MCH (RBC) [Entitic mass] 27.3 pg Normal 27.0-32.0 [facility] Comment on above: Order Comment: 306.1 Performed By: #### L 100.0500, [id number] #### [facility] [address] [place], [address] MCHC (RBC) [Mass/Vol] 32.8 g/dL Normal 32-36 [facility] Comment on above: Order Comment: 306.1 Performed By: #### L 100.0500, [id number] #### [facility] [address] [place], [address] MCV (RBC) [Entitic vol] 83.1 fL Normal 80-94 [facility] Comment on above: Order Comment: 306.1 Performed By: #### L 100.0500, [id number] #### [facility] [address] [place], [address] Platelet mean volume (Bld) [Entitic vol] 9.7 fL Normal 6.2-12.0 [facility] Comment on above: Order Comment: 306.1 Performed By: #### L 100.0500, [id number] #### [facility] [address] [place], [address] Platelets (Bld) [#/Vol] 480 10*3/uL High 150-450 [facility] Comment on above: Order Comment: 306.1 Performed By: #### L 100.0500, [id number] #### [facility] Laboratory [address] [place], [address] RBC (Bld) [#/Vol] 4.62 10*6/uL Normal 4.6-6.2 [facility] Comment on above: Order Comment: 306.1 Performed By: #### L 100.0500, L500.4050 #### [facility] Laboratory [address] [place], [address] RDW SD 42.4 fl Normal 35.1-43.9 [facility] Comment on above: Order Comment: 306.1 Performed By: #### L 100.0500, L500.4050 #### [facility] Laboratory [address] [place], [address] WBC (Bld) [#/Vol] 10.8 10*3/uL Normal 4.4-11.0 [facility] Comment on above: Order Comment: 306.1 Performed By: #### L 100.0500, L500.4050 #### [facility] Laboratory [address] [place], [address] Comprehensive Metabolic Prof ilon 08-20-2024 Albumin [Mass/Vol] 3.3 g/dL Low 3.4-4.8 [facility] Comment on above: Order Comment: 306.1 Performed By: #### L 100.0500, L500.4050 #### [facility] Laboratory [address] [place], [address] Albumin/Globulin [Mass ratio] 1.0 {ratio} Normal 0.9-2.4 [facility] Comment on above: Order Comment: 306.1 Performed By: #### L 100.0500, L500.4050 #### [facility] Laboratory [address] [place], [address] ALK PHOS 89 U/L Normal 40-129 [facility] Comment on above: Order Comment: 306.1 Performed By: #### L 100.0500, L500.4050 #### [facility] Laboratory [address] [place], [address] ALT [Catalytic activity/Vol] 11 U/L Normal <=46 [facility] Comment on above: Order Comment: 306.1 Performed By: #### L 100.0500, L500.4050 #### [facility] Laboratory [address] [place], [address] AST [Catalytic activity/Vol] 22 U/L Normal <=37 [facility] Comment on above: Order Comment: 306.1 Performed By: #### L 100.0500, L500.4050 #### [facility] Laboratory [address] [place], [address] Bilirubin [Mass/Vol] 0.45 mg/dL Normal 0.00-1.30 [facility] Comment on above: Order Comment: 306.1 Performed By: #### L 100.0500, L500.4050 #### [facility] Laboratory [address] [place], [address] BUN/CRE 24.7 RATIO High 10-20 [facility] Comment on above: Order Comment: 306.1 Performed By: #### L 100.0500, L500.4050 #### [facility] Laboratory [address] [place], [address] Calcium [Mass/Vol] 9.2 mg/dL Normal 7.6-11.0 [facility] Comment on above: Order Comment: 306.1 Performed By: #### L 100.0500, L500.4050 #### [facility] Laboratory [address] [place], [address] Chloride [Moles/Vol] 98 mmol/L Normal 98-108 [facility] Comment on above: Order Comment: 306.1 Performed By: #### L 100.0500, L500.4050 #### [facility] Laboratory [address] [place], [address] CO2 [Moles/Vol] 25.9 mmol/L Normal 21.0-32.0 [facility] Comment on above: Order Comment: 306.1 Performed By: #### L 100.0500, L500.4050 #### [facility] Laboratory [address] [place], [address] Creatinine [Mass/Vol] 0.56 mg/dL Low 0.70-1.20 [facility] Comment on above: Order Comment: 306.1 Performed By: #### L 100.0500, L500.4050 #### [facility] Laboratory [address] [place], [address] GAP 10 Normal 5-15 [facility] Comment on above: Order Comment: 306.1 Performed By: #### L 100.0500, L500.4050 #### [facility] Laboratory [address] [place], [address] GFR/1.73 sq M.predicted among non-blacks MDRD (S/P/Bld) [Vol rate/Area] 97 mL/min/{1.73_m2} Normal >60 [facility] Comment on above: Order Comment: 306.1 Result Comment: mL/m in/1.73m2 CKD-EPI Creatinine Equation (2020) Performed By: #### L 100.0500, L500.4050 #### [facility] Laboratory [address] [place], [address] Globulin (S) [Mass/Vol] 3.2 g/dL Normal 2.2-4.2 [facility] Comment on above: Order Comment: 306.1 Performed By: #### L 100.0500, L500.4050 #### [facility] Laboratory [address] [place], [address] Glucose [Mass/Vol] 89 mg/dL Normal 70-99 [facility] Comment on above: Order Comment: 306.1 Performed By: #### L 100.0500, L500.4050 #### [facility] Laboratory [address] [place], [address] Potassium [Moles/Vol] 3.8 mmol/L Normal 3.3-5.1 [facility] Comment on above: Order Comment: 306.1 Performed By: #### L 100.0500, L500.4050 #### [facility] Laboratory [address] [place], [address] Sodium [Moles/Vol] 134 mmol/L Normal 133-145 [facility] Comment on above: Order Comment: 306.1 Performed By: #### L 100.0500, L500.4050 #### [facility] Laboratory [address] [place], [address] T PROT 6.5 g/dL Normal 5.9-8.4 [facility] Comment on above: Order Comment: 306.1 Performed By: #### L 100.0500, L500.4050 #### [facility] Laboratory [address] [place], [address] Urea nitrogen [Mass/Vol] 14 mg/dL Normal 4-19 [facility] Comment on above: Order Comment: 306.1 Performed By: #### L 100.0500, L500.4050 #### [facility] Laboratory [address] [place], [address] Anion gap in Serum or Plasma Ordered By: Castillo Ortiz on 07-15-2024 Anion gap [Moles/Vol] 10 mmol/L 5-15 [facility] BUN/creatinine ratioOrdered By: Castillo Ortiz on 07-15-2024 Urea nitrogen/Creatinine [Mass ratio] 29.2 mg/mg High 10-20 [facility] Basic Metabolic Profile (BMP )on 07-15-2024 BUN/CRE 29.2 RATIO High 10-20 [facility] Comment on above: Order Comment: 306.1 Performed By: #### L 100.0500, L500.2500 #### [facility] Laboratory [address] [place], [address] Calcium [Mass/Vol] 9.5 mg/dL Normal 7.6-11.0 [facility] Comment on above: Order Comment: 306.1 Performed By: #### L 100.0500, L500.2500 #### [facility] Laboratory [address] [place], [address] Chloride [Moles/Vol] 101 mmol/L Normal 98-108 [facility] Comment on above: Order Comment: 306.1 Performed By: #### L 100.0500, L500.2500 #### [facility] Laboratory [address] [place], [address] CO2 [Moles/Vol] 27.1 mmol/L Normal 21.0-32.0 [facility] Comment on above: Order Comment: 306.1 Performed By: #### L 100.0500, L500.2500 #### [facility] Laboratory [address] [place], [address] Creatinine [Mass/Vol] 0.68 mg/dL Low 0.70-1.20 [facility] Comment on above: Order Comment: 306.1 Performed By: #### L 100.0500, L500.2500 #### [facility] Laboratory [address] [place], [address] GAP 10 Normal 5-15 [facility] Comment on above: Order Comment: 306.1 Performed By: #### L 100.0500, L500.2500 #### [facility] Laboratory [address] [place], [address] GFR/1.73 sq M.predicted among non-blacks MDRD (S/P/Bld) [Vol rate/Area] 92 mL/min/{1.73_m2} Normal >60 [facility] Comment on above: Order Comment: 306.1 Result Comment: mL/m in/1.73m2 CKD-EPI Creatinine Equation (2020) Performed By: #### L 100.0500, L500.2500 #### [facility] Laboratory [address] [place], [address] Glucose [Mass/Vol] 92 mg/dL Normal 70-99 [facility] Comment on above: Order Comment: 306.1 Performed By: #### L 100.0500, L500.2500 #### [facility] Laboratory [address] [place], [address] Potassium [Moles/Vol] 3.7 mmol/L Normal 3.3-5.1 [facility] Comment on above: Order Comment: 306.1 Performed By: #### L 100.0500, L500.2500 #### [facility] Laboratory [address] [place], [address] Sodium [Moles/Vol] 138 mmol/L Normal 133-145 [facility] Comment on above: Order Comment: 306.1 Performed By: #### L 100.0500, L500.2500 #### [facility] Laboratory [address] [place], [address] Urea nitrogen [Mass/Vol] 20 mg/dL High 4-19 [facility] Comment on above: Order Comment: 306.1 Performed By: #### L 100.0500, L500.2500 #### [facility] Laboratory [address] [place], [address] CBC-Complete Blood Cnt No Di ffon 07-15-2024 Erythrocyte distribution width (RBC) [Ratio] 13.6 % Normal 11.6-14.6 [facility] Comment on above: Order Comment: 306.1 Performed By: #### L 100.0500, L500.2500 #### [facility] Laboratory [address] [place], [address] Hematocrit (Bld) [Volume fraction] 38.2 % Low 40-54 [facility] Comment on above: Order Comment: 306.1 Performed By: #### L 100.0500, L500.2500 #### [facility] Laboratory [address] [place], [address] Hemoglobin (Bld) [Mass/Vol] 12.8 g/dL Low 13.0-16.5 [facility] Comment on above: Order Comment: 306.1 Performed By: #### L 100.0500, L500.2500 #### [facility] Laboratory [address] [place], [address] MCH (RBC) [Entitic mass] 28.3 pg Normal 27.0-32.0 [facility] Comment on above: Order Comment: 306.1 Performed By: #### L 100.0500, L500.2500 #### [facility] Laboratory [address] [place], [address] MCHC (RBC) [Mass/Vol] 33.5 g/dL Normal 32-36 [facility] Comment on above: Order Comment: 306.1 Performed By: #### L 100.0500, L500.2500 #### [facility] Laboratory [address] [place], [address] MCV (RBC) [Entitic vol] 84.5 fL Normal 80-94 [facility] Comment on above: Order Comment: 306.1 Performed By: #### L 100.0500, L500.2500 #### [facility] Laboratory [address] [place], [address] Platelet mean volume (Bld) [Entitic vol] 9.5 fL Normal 6.2-12.0 [facility] Comment on above: Order Comment: 306.1 Performed By: #### L 100.0500, L500.2500 #### [facility] Laboratory [address] [place], [address] Platelets (Bld) [#/Vol] 530 10*3/uL High 150-450 [facility] Comment on above: Order Comment: 306.1 Performed By: #### L 100.0500, L500.2500 #### [facility] Laboratory [address] [place], [address] RBC (Bld) [#/Vol] 4.52 10*6/uL Low 4.6-6.2 [facility] Comment on above: Order Comment: 306.1 Performed By: #### L 100.0500, L500.2500 #### [facility] Laboratory [address] [place], [address] RDW SD 42.1 fl Normal 35.1-43.9 [facility] Comment on above: Order Comment: 306.1 Performed By: #### L 100.0500, L500.2500 #### [facility] Laboratory [address] [place], [address] WBC (Bld) [#/Vol] 10.7 10*3/uL Normal 4.4-11.0 [facility] Comment on above: Order Comment: 306.1 Performed By: #### L 100.0500, L500.2500 #### [facility] Laboratory [address] [place], [address] Carbon dioxide, total [Moles /volume] in Central venous bloodOrdered By: Castillo Ortiz on 07-15-2024 CO2 [Moles/Vol] 27.1 mmol/L 21.0-32.0 [facility] Chloride assayOrdered By: Espinoza on 07-15-2024 Chloride [Moles/Vol] 101 mmol/L 98-108 [facility] Erythrocyte distribution wid th (RBC) [Ratio]Ordered By: Castillo Ortiz on 07-15-2024 Erythrocyte distribution width (RBC) [Entitic vol] 42.1 fL 35.1-43.9 [facility] Erythrocyte distribution wid th ratioOrdered By: Castillo Ortiz on 07-15-2024 Erythrocyte distribution width (RBC) [Ratio] 13.6 % 11.6-14.6 [facility] GFR/1.73 sq M.predicted kat g non-blacks MDRD (S/P/Bld) [Vol rate/Area]Ordered By: Castillo Ortiz on 07-15-2024 Estimated GFR (MDRD) Non-Af Amer 92 >60 [facility] Comment on above: mL/min/1.73m2 CKD-EP I Creatinine Equation (2020) Hematocrit Auto (Bld) [Volum e fraction]Ordered By: Castillo Ortiz on 07-15-2024 Hematocrit (Bld) [Volume fraction] 38.2 % Low 40-54 [facility] Hemoglobin measurementOrdere d By: Castillo Ortiz on 07-15-2024 Hemoglobin (Bld) [Mass/Vol] 12.8 g/dL Low 13.0-16.5 [facility] MCV (mean corpuscular volume ) determinationOrdered By: Castillo Ortiz on 07-15-2024 MCV (RBC) [Entitic vol] 84.5 fL 80-94 [facility] Mean corpuscular hemoglobin (MCH) determinationOrdered By: Castillo Ortiz on 07-15-2024 MCH (RBC) [Entitic mass] 28.3 pg 27.0-32.0 [facility] Mean corpuscular hemoglobin concentration (MCHC) determinationOrdered By: Castillo Ortiz on 07-15-2024 MCHC (RBC) [Mass/Vol] 33.5 g/dL 32-36 [facility] Mean platelet volume determi nationOrdered By: Castillo Ortiz on 07-15-2024 Platelet mean volume (Bld) [Entitic vol] 9.5 fL 6.2-12.0 [facility] Platelet countOrdered By: Espinoza on 07-15-2024 Platelets (Bld) [#/Vol] 530 10*3/uL High 150-450 [facility] Potassium (Unsp spec) [Mass/ Vol]Ordered By: Castillo Ortiz on 07-15-2024 Potassium [Moles/Vol] 3.7 mmol/L 3.3-5.1 [facility] RBC Auto (Bld) [#/Vol]Ordere d By: Castillo Ortiz on 07-15-2024 RBC (Bld) [#/Vol] 4.52 10*6/uL Low 4.6-6.2 [facility] Serum creatinine measurement (mass/volume)Ordered By: Castillo Ortiz on 07-15-2024 Creatinine [Mass/Vol] 0.68 mg/dL Low 0.70-1.20 [facility] Serum glucose measurement (m ass/volume)Ordered By: Castillo Ortiz on 07-15-2024 Glucose [Mass/Vol] 92 mg/dL 70-99 [facility] Serum or plasma calcium vinicio urement (mass/volume)Ordered By: Castlilo Ortiz on 07-15-2024 Calcium [Mass/Vol] 9.5 mg/dL 7.6-11.0 [facility] Serum or plasma urea nitroge n measurement (mass/volume)Ordered By: Castillo Ortiz on 07-15-2024 Urea nitrogen [Mass/Vol] 20 mg/dL High 4-19 [facility] Sodium levelOrdered By: Castillo Ortiz on 07-15-2024 Sodium [Moles/Vol] 138 mmol/L 133-145 [facility] White blood cell (WBC) count Ordered By: Castillo Ortiz on 07-15-2024 WBC (Bld) [#/Vol] 10.7 10*3/uL 4.4-11.0 [facility] 29on 04-28-2024 29 Addended by: KATHY JACOME on: 04/28/2024 01:57 PM Modules accepted: Orders Normal [facility] Office Visiton 04-28-2024 Follow-up visit [id number] Crystal Gong 1940 M Date Provider Department Center 04/28/2024 9537-KATHY JACOME [facility] URO None Family History Problem Relation Age of Onset Heart failure Mother Diabetes Mother Family Status - Relation Status Age at Mother Level of Service:21565 ID OFFICE/OUTPATIENT ESTABLISHED MOD MDM 30 MIN Reason for Visit and Comments: Follow-up [519260] - Hospital follow up for retention. Has schwartz in place, denies any issues since catheter placement Normal [facility] Progress Noteon 04-28-2024 Progress Note Kathy Jacome, MSN, PAYROLL REPRESENTATIVE, AGNP-C 04/28/2024 Urology Office Visit [facility] [address] [place] [address], [address] [facility] [id number] PATIENT NAME: Doroteo Gong DATE OF : 1940 REFERRING PROVIDER: No ref. provider found PCP: Roopa Madera MD TODAY'S DATE: 04/28/2024 Visit type: Established patient HPI: Doroteo is a 83 y.o. male who presents today with chief complaints of: incomplete bladder emptying, hydronephrosis, acute cystitis Schwartz placed 04/07/2024 for retention and cystitis in the hospital. Schwartz exchanged 04/28/2023. Urine culture completed. - Treated with Ertapenem 1gm IM x 7 days from 04/28 - 05/05 - Was on Macrobid 100mg BID from 04/22 to 04/29 and Macrobid 100mg BID from 04/09 to 04/11 - Treated with Macrobid, cefuroxime, and Macrobid in the hospital - Culture 04/22 with ESBL Klebsiella PNE Patient is wheelchair bound. Patient resides at the [facility]. 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 Had schwartz removed since and was voiding. Catheter replaced earlier in 2023 for retention. In a wheelchair for mobility. Cystoscopy next appointment. At [facility]. Catheter/voiding trial this appointment. 01/30/2023: Pau OV - follow up for ER visit for SOB and 850ml urine retention. PVR 331ml this day. Review of Systems: All pertinent positives and negatives per HPI as stated above. Past Medical History: Diagnosis Date Arthritis knees hands Asthma Chronic pain GERD (gastroesophageal reflux disease) Hyperlipidemia Kidney stone 2012 Prostate disease Sleep apnea Thyroid disease Past Surgical History: Procedure Laterality Date APPENDECTOMY BACK SURGERY 2014 slipped disc CATARACT EXTRACTION CHOLECYSTECTOMY JOINT REPLACEMENT Right 2014 LITHOTRIPSY 3-4 times OTHER SURGICAL HISTORY hemorroid removed OTHER SURGICAL HISTORY Left 12/19/2017 stent placement, cystoscopy and pyelogram, Laser Lithotripsy SINUS SURGERY Allergies Allergen Reactions Allopurinol Unknown Erythromycin Unknown Penicillins Unknown Patient tolerates cephalosporins Sulfa Antibiotics Unknown Pt does not know reaction Tetracyclines & Related Unknown Levofloxacin Other jittery Omeprazole Ciprofloxacin Unknown Paroxetine Other Fatigue Physical Exam: BP (!) 107/44 Pulse 82 Ht 5' (1.524 m) Wt 156 lb (70.8 kg) BMI 30.47 kg/m? Physical Exam Vitals and nursing note reviewed. Constitutional: General: He is not in acute distress. Appearance: Normal appearance. He is not ill-appearing or toxic-appearing. Pulmonary: Effort: Pulmonary effort is normal. Neurological: Mental Status: He is alert and oriented to person, place, and time. Psychiatric: Behavior: Behavior normal. Judgment: Judgment normal. Pertinent Labs: CBC: Lab Results Component Value Date WBC 7.1 04/11/2024 HGB 9.9 (L) 04/11/2024 HCT 30.4 (L) 04/11/2024 MCV 86.9 04/11/2024 PLT 388 04/11/2024 CMP: Lab Results Component Value Date NA 144 04/11/2024 K 2.8 (L) 04/11/2024 CL 114 (H) 04/11/2024 CO2 20 (L) 04/11/2024 BUN 7 (L) 04/11/2024 CREATININE 0.52 (L) 04/11/2024 GLUCOSE 77 (L) 04/11/2024 ALT 6 04/11/2024 AST 25 04/11/2024 ALKPHOS 53 04/11/2024 Urinalysis: Lab Results Component Value Date COLORU Dark Yellow (A) 04/07/2024 CLARITYU Extra Turbid (A) 04/07/2024 GLUCOSEUR neg 07/01/2020 BILIRUBINUR Negative 06/05/2021 KETONESU Trace (A) 04/07/2024 SPECGRAV 1.020 07/01/2020 RBCUR neg 07/01/2020 PHUR 6.5 07/01/2020 PROTUR 200 (A) 04/07/2024 UROBILINOGEN 3 (A) 04/07/2024 LEUKOCYTESUR 75 (A) 06/05/2021 NITRITE neg 07/01/2020 Urine Culture: Lab Results Component Value Date URINECX 04/07/2024 Multiple species present; probable contamination; repeat suggested Imaging and results/record review: Imaging: === 04/07/24 === CT ABDOMEN PELVIS W CONTRAST - Impression - Impression: 1. Significant nonspecific irregular bladder wall thickening, trabeculation and several diverticula. Underlying obstructive uropathy or bladder wall malignancy not excluded. There is mild distal left hydroureter. Recommend consultation with urology to determine the need for biopsy. 2. Mild nonspecific prostate enlargement with some mass effect on the bladder more inferiorly. This could be a source of obstruction. 3. Multiple hepatic cysts. Some geographic hypodensity within the left hepatic lobe more centrally thought to likely represent focal fatty infiltration. 4. Mild gaseous distention of the large bowel with suggestion of constipation along the sigmoid colon and rectum. 5. Bilateral nonobstructing renal calculi with extrarenal pelvis large in size on the right. Loose calculi within the renal pelvis on the right are at risk for obstruction and measures (more content not included)... Normal [facility] 36on 04-18-2024 36 Okay Normal [facility] PSA,Total - Annual Screenon 04-18-2024 PSA,TOT SCREEN 1.14 ng/mL Normal 0.00-4.00 [facility] Comment on above: Result Comment: This test was performed using the TPSA assay method for the Pressable chemistry system. Values obtained with different assay methods cannot be used interchangably. When changing PSA assays in the course of monitoring a patient, additional sequential testing should be carried out to confirm baseline values. Performed By: #### L 501.9910 #### [facility] Laboratory [address] [place], [address] Screening prostate specific antigen (PSA) measurementOrdered By: Castillo Ortiz on 04-18-2024 Prostate Specific Antigen Screen 1.14 ng/mL 0.00-4.00 [facility] Comment on above: This test was perfor med using the TPSA assay method for thePressable chemistry system. Values obtained with differentassay methods cannot be used interchangably.When changing PSA assays in the course of monitoring apatient, additional sequential testing should be carriedout to confirm baseline values. 36on 04-17-2024 36 Called Micheline back at [facility] ([phone]), this facility has assumed care over the patient after his dc from [facility]. Schwartz placed 04/04 for retention. Given address and apt date/time. Facility doc declined the void trail until pt has his follow up apt with our office. [facility] 36 Name of Caller: Nadya leach- [facility] Contact Reason for Appointment: Micheline is asking if the office wants her staff to do a voiding trial prior to pt's appt Office Name: Uro Medication Refills need, if any: NA Medication Name: NA [facility] [id number] 04-14-2024 [id number] Patient Choice Patient Name: DOROTEO GONG Date of : 1940 [facility] 30on 04-11-2024 30 Problem: Knowledge Deficit Goal: Patient/family/caregive r demonstrates understanding of disease process, treatment plan, medications, and discharge instructions Outcome: Progressing Problem: Potential for Compromised Skin Integrity Goal: Skin Integrity is Maintained or Improved Outcome: Progressing Goal: Nutritional status is improving Outcome: Progressing Problem: Urinary Incontinence Goal: Perineal skin integrity is maintained or improved Outcome: Progressing Problem: Pain - Adult Goal: Verbalizes/displays adequate comfort level or baseline comfort level Outcome: Progressing Problem: Safety - Adult Goal: Free from fall injury Outcome: Progressing Problem: Discharge Planning Goal: Discharge to home or other facility with appropriate resources Outcome: Progressing Problem: Chronic Conditions and Co-morbidities Goal: Patient's chronic conditions and co-morbidity symptoms are monitored and maintained or improved Outcome: Progressing Problem: Problem Interventions Goal: Dietary Supplements Outcome: Progressing Goal: Promote nutritional intake Outcome: Progressing Normal [facility] [id number] 04-11-2024 [id number] Next Site of Care Admission Date: 04/07/2024 04:42 AM Patient Name: DOROTEO GONG Location: [address] Date of : 1940 - Placement Information - Referral Type:Snf/SNF - Return Referral ID:[id number] Provider Name: Address 1: Phone Number: Address 2: Fax Number: City: Selection Factors: State: Referral Type:Snf/SNF - New Referral ID:[id number] Provider Name:[facility] CoSchedule. Address 1:[address] [facility] Address 2: City:[place] Selection Factors:Patient/Family Choice State:[facility] [phone] Discharge med list transmitted to [facility] via Careport per TCC request. [id number] was entered into [employer] for the SNF- Facility is aware [facility] [phone] Asked by [facility] to set transport to [facility]. The [employer] Vehicle you requested for Doroteo Mora in unit/room [facility] [id number] on 04/11/2024 is scheduled to arrive at 1:30pm EST! [employer] is handling this ride and you can contact them at . Pt, Friend Solange, nurse, unit sec, TCC, and facility informed of time. [facility] CBC W Auto Differential pane l (Bld)on 04-11-2024 Basophils (Bld) [#/Vol] 0 10*3/uL 0.0 - 0.2 10*3/[facility] Bas[facility] WBC (Bld) 0.6 % 0.0 - 2.0 % [facility] Eosinophils (Bld) [#/Vol] 0.2 10*3/uL 0.0 - 0.5 10*3/uL [facility] Eosinophils/100 WBC (Bld) 2.7 % 0.0 - 6.0 % [facility] Erythrocyte distribution width (RBC) [Ratio] 14.9 % 11.5 - 15.0 % [facility] Hematocrit (Bld) [Volume fraction] 30.4 % Low 40.0 - 52.0 % [facility] Hemoglobin (Bld) [Mass/Vol] 9.9 g/dL Low 13.0 - 18.0 g/dL [facility] Immature granulocytes (Bld) [#/Vol] 0.1 10*3/uL High NINF - 0.1 10*3/uL [facility] Immature granulocytes/100 WBC (Bld) 1.4 % 0.0 - 2.0 % [facility] Interpretation and review of laboratory results Abnormal [facility] Lymphocytes (Bld) [#/Vol] 1.9 10*3/uL 1.0 - 4.3 10*3/uL [facility] Lymphocytes/100 WBC (Bld) 26.3 % 15.0 - 45.0 % [facility] MCH (RBC) [Entitic mass] 28.3 pg 26. 0 - 34.0 pg [facility] MCHC (RBC) [Mass/Vol] 32.6 % 30.5 - 36.0 % [facility] MCV (RBC) [Entitic vol] 86.9 fL 77.0 - 99.0 fL [facility] Monocytes (Bld) [#/Vol] 0.8 10*3/uL 0.0 - 0.9 10*3/uL [facility] Monocytes/100 WBC (Bld) 10.5 % 5.0 - 13.0 % [facility] Neutrophils (Bld) [#/Vol] 4.2 10*3/uL 1.8 - 7.5 10*3/uL [facility] Neutrophils/100 WBC (Bld) 58.5 % 38.0 - 82.0 % [facility] Nucleated RBC/100 WBC (Bld) [Ratio] 0 % [facility] [employer] Platelet mean volume (Bld) [Entitic vol] 8.9 fL Low 9.0 - 12.7 fL [facility] Platelets (Bld) [#/Vol] 388 10*3/uL 140 - 440 10*3/uL [facility] RBC (Bld) [#/Vol] 3.5 10*6/uL Low 4.40 - 5.9 0 10*6/uL [facility] WBC (Bld) [#/Vol] 7.1 10*3/uL 3.6 - 10.7 10*3/uL [facility] CBC WITH AUTO DIFFERENTIALon 04-11-2024 Basophils (Bld) [#/Vol] 0.0 10*3/uL Normal 0.0-0.2 [facility] Comment on above: Performed By: #### L [id number] ####Black Studies Professor: MAMTA BILLY ([id number])[facility] ([facility])[address] Basophils/100 WBC (Bld) 0.6 % Normal 0.0-2.0 [facility] Comment on above: Performed By: #### L [id number] ####Black Studies Professor: MAMTA BILLY ([id number])[facility] [place] ([facility])[address] Eosinophils (Bld) [#/Vol] 0.2 10*3/uL Normal 0.0-0.5 [facility] Comment on above: Performed By: #### L [id number] ####Black Studies Professor: MAMTA BILLY ([id number])[facility] [place] ([facility])[address] Eosinophils/100 WBC (Bld) 2.7 % Normal 0.0-6.0 [facility] Comment on above: Performed By: #### L [id number] ####Black Studies Professor: MAMTA BILLY ([id number])[facility] [place] ([facility])[address] Erythrocyte distribution width (RBC) [Ratio] 14.9 % Normal 11.5-15.0 [facility] Comment on above: Performed By: #### L [id number] ####Black Studies Professor: MAMTA BILLY ([id number])[facility] [place] ([facility])[address] Hematocrit (Bld) [Volume fraction] 30.4 % Low 40.0-52.0 [facility] Comment on above: Performed By: #### L [id number] ####Black Studies Professor: MAMTA BILLY ([id number])[facility] ([facility])[address] Hemoglobin (Bld) [Mass/Vol] 9.9 g/dL Low 13.0-18.0 [facility] Comment on above: Performed By: #### L [id number] ####Black Studies Professor: MAMTA BILLY ([id number])[facility] ([facility])[address] IMMATURE GRANS % 1.4 % Normal 0.0-2.0 [facility] Comment on above: Performed By: #### L [id number] ####Black Studies Professor: MAMTA BILLY ([id number])[facility] IMMATURE GRANS ABSOLUTE 0.1 10*3/uL High <0.1 [facility] Comment on above: Performed By: #### L [id number] ####Black Studies Professor: MAMTA BILLY ([id number])[facility] (SBAB)[address] [place] [address] [place] Lymphocytes (Bld) [#/Vol] 1.9 10*3/uL Normal 1.0-4.3 [facility] Comment on above: Performed By: #### L [id number] ####Black Studies Professor: MAMTA BILLY ([id number])[facility] ([facility])[address] [place] [address] [place] Lymphocytes/100 WBC (Bld) 26.3 % Normal 15.0-45.0 [facility] Comment on above: Performed By: #### L [id number] ####Black Studies Professor: MAMTA BILLY ([id number])[facility] ([facility])[address] MCH (RBC) [Entitic mass] 28.3 pg Normal 26.0-34.0 [facility] Comment on above: Performed By: #### L [id number] ####Black Studies Professor: MAMTA BILLY ([id number])[facility] ([facility])[address] MCHC 32.6 % Normal 30.5-36.0 [facility] Comment on above: Performed By: #### L [id number] ####Black Studies Professor: MAMTA BILLY ([id number])[facility] ([facility])[address] MCV (RBC) [Entitic vol] 86.9 fL Normal 77.0-99.0 [facility] Comment on above: Performed By: #### L [id number] ####Black Studies Professor: MAMTA BILLY ([id number])[facility] ([facility])[address] Monocytes (Bld) [#/Vol] 0.8 10*3/uL Normal 0.0-0.9 [facility] Comment on above: Performed By: #### L [id number] ####Black Studies Professor: MAMTA BILLY ([id number])[facility] ([facility])[address] [place] [address] Monocytes/100 WBC (Bld) 10.5 % Normal 5.0-13.0 [facility] Comment on above: Performed By: #### L [id number] ####Black Studies Professor: MAMTA BILLY ([id number])[facility] ([facility])[address] [place] [address] NEUTROPHILS ABSOLUTE 4.2 10*3/uL Normal 1.8-7.5 [facility] Comment on above: Performed By: #### L [id number] ####Black Studies Professor: MAMTA BILLY ([id number])[facility] ([facility])[address] Neutrophils/100 WBC (Bld) 58.5 % Normal 38.0-82.0 [facility] Comment on above: Performed By: #### L [id number] ####Black Studies Professor: MAMTA BILLY ([id number])[facility] ([facility])[address] NRBC 0.0 /100 WBCs Normal 0.0-2.0 [facility] Comment on above: Performed By: #### L [id number] ####Black Studies Professor: MAMTA BILLY ([id number])[facility] ([facility])[address] Platelet mean volume (Bld) [Entitic vol] 8.9 fL Low 9.0-12.7 [facility] Comment on above: Performed By: #### L [id number] ####Black Studies Professor: MAMTA BILLY ([id number])[facility] ([facility])[address] Platelets (Bld) [#/Vol] 388 10*3/uL Normal 140-440 [facility] Comment on above: Performed By: #### L [id number] ####Black Studies Professor: MAMTA BILLY ([id number])[facility] ([facility])[address] RBC (Bld) [#/Vol] 3.50 10*6/uL Low 4.40-5.90 [facility] Comment on above: Performed By: #### L [id number] ####Black Studies Professor: MAMTA BILLY ([id number])[facility] ([facility])[address] [place] [address] WBC (Bld) [#/Vol] 7.1 10*3/uL Normal 3.6-10.7 [facility] Comment on above: Performed By: #### L [id number] ####Black Studies Professor: MAMTA BILLY ([id number])[facility] ([facility])[address] COMPREHENSIVE METABOLIC PANE Khris 04-11-2024 Albumin [Mass/Vol] 1.5 g/dL Low 3.4-4.8 [facility] Comment on above: Performed By: #### L [id number] ####Black Studies Professor: MAMTA BILLY ([id number])[facility] ([facility])[address] ALP [Catalytic activity/Vol] 53 U/L Normal 40-150 [facility] Comment on above: Performed By: #### L AB17 ####Black Studies Professor: MAMTA ALBARRANDEBRA ([id number])[facility] ([facility])[address] ALT [Catalytic activity/Vol] 6 U/L Normal <40 [facility] Comment on above: Performed By: #### L AB17 ####Black Studies Professor: MAMTA RAECER ([id number])[facility] ([facility])[address] Anion gap [Moles/Vol] 10 mmol/L Normal 3-13 [facility] Comment on above: Performed By: #### L AB17 ####Black Studies Professor: MAMTA BILLY ([id number])[facility] ([facility])[address] AST [Catalytic activity/Vol] 25 U/L Normal <34 [facility] Comment on above: Performed By: #### L AB17 ####Black Studies Professor: MAMTA ALBARRANDEBRA ([id number])[facility] ([facility])[address] Bilirubin [Mass/Vol] 0.3 mg/dL Normal <1.2 [facility] Comment on above: Performed By: #### L AB17 ####Black Studies Professor: MAMTA BILLY ([id number])[facility] ([facility])[address] Calcium [Mass/Vol] 6.5 mg/dL Low 8.8-10.0 [facility] Comment on above: Performed By: #### L AB17 ####Black Studies Professor: MAMTA BILLY ([id number])[facility] ([facility])[address] [place] [address] [place] Chloride [Moles/Vol] 114 mmol/L High 98-107 [facility] Comment on above: Performed By: #### L AB17 ####Black Studies Professor: MAMTA BILLY ([id number])[facility] ([facility])[address] CO2 [Moles/Vol] 20 mmol/L Low 23-31 [facility] Comment on above: Performed By: #### L AB17 ####Black Studies Professor: MAMTA BILLY ([id number])[facility] (HLAB)[address] Creatinine [Mass/Vol] 0.52 mg/dL Low 0.72-1.25 [facility] Comment on above: Performed By: #### L [id number] ####Black Studies Professor: MAMTA BILLY ([id number])[facility] ([facility])[address] GLOMERULAR FILTRATION RATE ML/MIN/1.73 SQ M.PREDICTED >90.0 Normal >60.0 [facility] Comment on above: Result Comment: Calc ulation based on the Chronic Kidney Disease Epidemiology Collaboration (CKD-EPI) equation refit without adjustment for race Performed By: #### L [id number] ####Black Studies Professor: MAMTA BILLY ([id number])[facility] (HL[facility])[address] Glucose [Mass/Vol] 77 mg/dL Low 82-115 [facility] Comment on above: Performed By: #### L [id number] ####Black Studies Professor: MAMTA BILLY ([id number])[facility] [place] [address] [place] Potassium [Moles/Vol] 2.8 mmol/L Low 3.5-5.1 [facility] Comment on above: Result Comment: [facility] potassium values may be up to 0.5 mmol/L lower than serum values. Performed By: #### L AB17 ####Black Studies Professor: MAMTA BILLY ([id number])[facility] [place] ([facility])[address] Protein [Mass/Vol] 4.2 g/dL Low 6.4-8.3 [facility] Comment on above: Performed By: #### L [id number] ####Black Studies Professor: MAMTA BILLY ([id number])[facility] [place] ([facility])[address] Sodium [Moles/Vol] 144 mmol/L Normal 136-145 [facility] Comment on above: Performed By: #### L [id number] ####Black Studies Professor: MAMTA MARIAJOSE ([id number])[facility] [place] ([facility])[address] Urea nitrogen [Mass/Vol] 7 mg/dL Low 9-23 [facility] Comment on above: Performed By: #### L [id number] ####Black Studies Professor: MAMTA MARIAJOSE ([id number])[facility] (SB[facility])[address] Comprehensive metabolic 1998 panelon 04-11-2024 Albumin [Mass/Vol] 1.5 g/dL Low 3.4 - 4.8 g/dL [facility] ALP [Catalytic activity/Vol] 53 U/L 40 - 150 U/L [facility] ALT [Catalytic activity/Vol] 6 U/L NINF - 40 U/L [facility] Anion gap [Moles/Vol] 10 mmol/L 3 - 13 mmol/L [facility] AST [Catalytic activity/Vol] 25 U/L NINF - 34 U/L [facility] Bilirubin [Mass/Vol] 0.3 mg/dL NINF - 1.2 mg/dL [facility] Calcium [Mass/Vol] 6.5 mg/dL Low 8.8 - 10. 0 mg/dL [facility] Chloride [Moles/Vol] 114 mmol/L High 98 - 10 7 mmol/L [facility] CO2 [Moles/Vol] 20 mmol/L Low 23 - 31 mmol/L [facility] Creatinine [Mass/Vol] 0.52 mg/dL Low 0.72 - 1.25 mg/dL [facility] GFR/1.73 sq M.predicted (S/P/Bld) [Vol rate/Area] - PINF [facility] Comment on above: Calculation based on the Chronic Kidney Disease Epidemiology Collaboration (CKD-EPI) equation refit without adjustment for race Glucose [Mass/Vol] 77 mg/dL Low 82 - 115 mg/dL [facility] Interpretation and review of laboratory results Abnormal [facility] Potassium [Moles/Vol] 2.8 mmol/L Low 3.5 - 5.1 mmol/L [facility] Comment on above: Plasma potassium mera ues may be up to 0.5 mmol/L lower than serum values. Protein [Mass/Vol] 4.2 g/dL Low 6.4 - 8.3 g/dL [facility] Sodium [Moles/Vol] 144 mmol/L 136 - 145 mmol/L [facility] Urea nitrogen [Mass/Vol] 7 mg/dL Low 9 - 23 mg/dL [facility] Nursing Noteon 04-11-2024 Nursing Note Report given to Bishop sultana at [facility]. Normal [facility] Progress Noteon 04-11-2024 Progress Note OCCUPATIONAL THERAPY [facility] Treatment Note Name/MRN: Doroteo Gong ([id number]) Date of : 1940 Age: 83 y.o. Room/Bed: B4461/B4461 A Visit #: 1 out of 7 visits Discharge Recommendation: Intermediate Facility Equipment Needed: No Prior Level of Function Prior Level of ADL Function: Independent (pt questionable historian) per CM note, requires assist Prior Level of Mobility: Independent (pt questionable historian); Device: Front wheeled walker Prior Level of Transfers: Independent (pt questionable historian) Assessment Pt seen for OT this date with a focus on bed mobility and ADL task completion. Pt completed bed mobility with rolling left to right with Max A, Mod A to maintain side lying position. He performed grooming tasks with SBA after set up, Mod A for UE dressing, and dependent for toileting tasks. Pt initially agreeable to OOB activity but then declined after initiating bed mobility. He is limited by increased fatigue, weakness, and confusion this date. Pt would benefit from continued skilled OT services to address the below. OT rec is for SNF upon planned discharge. Subjective Pt supine in bed upon arrival, pleasant and agreeable. Per RN, pt okay to see. Pt initially agreeable to OOB activity, then declines after initiating bed mobility. Pain: Pt denies any current pain. Medical Precautions: No active isolations Proper PPE donned/doffed in accordance with facility standards. Fall Risk: Villanueva Fall Risk Score: 95 (High Risk) Precautions/Restriction s: N/A Family/Caregiver Present: none Objective ADLs Toileting: Dependent Grooming: SBA, after setup UE Dressing: Mod Assist Pt completed grooming tasks while supine in bed with SBA after set up. Mod A for UE dressing to doff/don gown, he required assist for sleeve mgmt. Pt was dependent for bed level toileting hygiene, he completed rolling L/R for draw pad change and hygiene. Pt required constant VC's for initiation/sequencing of tasks throughout all ADL task completion. Bed Mobility Rolling to right: Max Assist Rolling to left: Max Assist Pt performed bed mobility rolling L/R with Max A, he required Max A to initiate and complete roll to each side. Once in side lying position, pt able to assist slightly more with use of bed rail and required Mod A to maintain side lying position. VC's fro sequencing and positioning. Cognition Exceptions - Following commands: follows one step commands with increased time and follows one step commands with repetition - Memory: decreased recall of recent events and decreased short term memory - Safety judgement: decreased awareness of need for assistance and decreased awareness of need for safety - Problem solving: assistance required to generate solutions, assistance required to implement solutions, assistance required to identify errors made, assistance required to correct errors made, and decreased awareness of errors - Insights: decreased awareness of deficits - Initiation: requires cues for some - Sequencing: requires cues for some Plan Continue acute OT per plan of care. Safety/Education Safety Safety Devices in place: All fall risk precautions in place, call light within reach, left in bed, bed alarm in place, gait belt, patient at risk for falls, nurse notified, and no alarms engaged upon entry Restraints: No Education Education Given To: patient Education Provided: OT Role, Plan of Care, ADL Adaptive Strategies, Fall Prevention Education, Discharge Recommendations, and Benefits of Increasing Activity Education Method: Verbal, Demonstration, and Teach Back Barriers to Learning: Cognition Education Outcome: Verbalized Understanding, Demonstrated Understanding, and Continued Education Needed AM-PAC AM-PAC Inpatient Daily Activity Raw Score: 11 ADL Inpatient CMS G-Code Modifier: CL Goals Patient Stated Goal: none stated at this time. Encounter Problems Encounter Problems (Active) Dressing Upper Extremities Patient will complete upper body dressing SBA (Progressing) Start: 04/09/24 Expected End: 04/19/24 Dressings Lower Extremities Patient will dress lower body MIN A (Not Addressed) Start: 04/09/24 Expected End: 04/19/24 Mobility Patient will demonstrate functional mobility as appropraite with FWW and MOD A (Not Addressed) Start: 04/09/24 Expected End: 04/19/24 Toileting Patient will complete toileting tasks at bedside commode with mod assist. (Not Addressed) Start: 04/09/24 Expected End: 04/19/24 Transfers Patient will complete functional transfer with least restrictive device with mod assist in order to prepare for ambulation. (Not Addressed) Start: 04/09/24 Expected End: 04/19/24 Therapy Time Individual Co-treatment Time In 1017 Time Out 1030 Minutes 13 Timed Code Treatment Minutes: 13 Minutes (1 THER ACT) EMY Huerta/Louisa [facility] Progress Note Speech-Language Pathology SPEECH LANGUAGE PATHOLOGY [facility] Dysphagia Treatment Note Patient Name: Doroteo Gong Evaluation Date: 04/11/2024 Date of : 1940 Admission Date: 04/07/2024 4:42 AM Age: 83 y.o. Room[facility] Subjective Patient alert and cooperative. Seen upright in bed. Answers all basic questions with clear vocal quality. Follows all basic commands. No visitors at bedside. Spoke with BELINDA Weller who cleared pt for treatment. Current Diet: Dietary Orders (From admission, onward) Start Ordered 04/09/24 1227 Supplement:Breakfast; Vanilla Ensure Plus Until discontinued Question Answer Comment Frequency Breakfast Select supplement: Vanilla Ensure Plus 04/09/24 1226 04/09/24 1227 Supplement:Lunch; Chocolate Ensure Plus Until discontinued Question Answer Comment Frequency Lunch Select supplement: Chocolate Ensure Plus 04/09/24 1226 04/09/24 1227 Supplement:Dinner; Dorr Ensure Plus Until discontinued Question Answer Comment Frequency Dinner Select supplement: Dorr Ensure Plus 04/09/24 1226 04/09/24 1150 Adult diet Dysphagia - Soft and Bite Sized Diet effective now Question: Diet type Answer: Dysphagia - Soft and Bite Sized 04/09/24 1149 Aspiration Precautions: - Upright positioning for all PO intake - Slow rate of intake - Small bites/sips - 1:1 Assistance Oxygen: Oxygen Therapy: Supplemental oxygen O2 Delivery Method: Nasal cannula O2 Flow Rate (L/min): 2 L/min Pain: Reports Pain everywhere PPE Worn: gloves Objective & Assessment Dysphagia Treatment Dysphagia Activity 1: Assess tolerance of current diet. Patient seen with breakfast tray consisting of scrambled egg and oatmeal. Patient does not have dentures and reports that dentures are ill fitting so that he does not use them at baseline. Patient is receptive for each bolus. Mastication efforts are limited - patient spits textures out onto the napkin - ~ 25% of each bolus. Attempted to offer a liquid chaser bolus. Patient is only partially receptive to same. Noted that the swallow is at times audible with straw drinks of juice. Also noted clinically reduced hyolaryngeal excursion. Posterior lingual tone is subjectively reduced. Patient coughs with oatmeal and scrambled egg particles. Question incomplete oropharyngeal clearance. Even noted mild coating on the soft palate after patient drinking Ensure. Cued patient to use a re-swallow and did eventually clear. Patient had a MBSS in 2021 that did report reduced epiglottic deflection and vallecular residue. Will initiate oropharyngeal strengthening if patient is cooperative. Plan & Recommendations Plan: Please change the diet to Minced and Moist with Thin liquids. Will continue the dysphagia plan of care to ensure patient tolerance of same and introduce oropharyngeal strengthening. Small bolus size Alternate food with liquid Assist with feeding Re-swallow D/C Recommendations: ongoing speech therapy at next level of care Education Education Given: swallowing strategies, diet recommendations Given To: patient, caregiver, and RN Response: patient needs reinforcement Goals Patient Stated Goal: None stated. 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 Time In: 0735 Time Out: 0755 Minutes: 20 JUICE Fowler Normal [facility] 30on 04-10-2024 30 Problem: Knowledge Deficit Goal: Patient/family/caregive r demonstrates understanding of disease process, treatment plan, medications, and discharge instructions Outcome: Progressing Problem: Potential for Compromised Skin Integrity Goal: Skin Integrity is Maintained or Improved Outcome: Progressing Goal: Nutritional status is improving Outcome: Progressing Problem: Urinary Incontinence Goal: Perineal skin integrity is maintained or improved Outcome: Progressing Problem: Pain - Adult Goal: Verbalizes/displays adequate comfort level or baseline comfort level Outcome: Progressing Problem: Safety - Adult Goal: Free from fall injury Outcome: Progressing Problem: Discharge Planning Goal: Discharge to home or other facility with appropriate resources Outcome: Progressing Problem: Chronic Conditions and Co-morbidities Goal: Patient's chronic conditions and co-morbidity symptoms are monitored and maintained or improved Outcome: Progressing Problem: Problem Interventions Goal: Dietary Supplements Outcome: Progressing Goal: Promote nutritional intake Outcome: Progressing Normal [facility] CBC W Auto Differential pane l (Bld)on 04-10-2024 Basophils (Bld) [#/Vol] 0 10*3/uL 0.0 - 0.2 10*3/uL [facility] Basophils/100 WBC (Bld) 0.4 % 0.0 - 2.0 % [facility] Eosinophils (Bld) [#/Vol] 0.2 10*3/uL 0.0 - 0.5 10*3/uL [facility] Eosinophils/100 WBC (Bld) 2.5 % 0.0 - 6.0 % [facility] Erythrocyte distribution width (RBC) [Ratio] 14.6 % 11.5 - 15.0 % [facility] Hematocrit (Bld) [Volume fraction] 32 % Low 40.0 - 52.0 % [facility] Hemoglobin (Bld) [Mass/Vol] 10.5 g/dL Low 13.0 - 18.0 g/dL [facility] Immature granulocytes (Bld) [#/Vol] 0.1 10*3/uL High NINF - 0.1 10*3/uL [facility] [employer] Immature granulocytes/100 WBC (Bld) 1.1 % 0.0 - 2.0 % [facility] Interpretation and review of laboratory results Abnormal [facility] Lymphocytes (Bld) [#/Vol] 1.4 10*3/uL 1.0 - 4.3 10*3/uL [facility] Lymphocytes/100 WBC (Bld) 16.1 % 15.0 - 45.0 % [facility] MCH (RBC) [Entitic mass] 28.5 pg 26. 0 - 34.0 pg [facility] MCHC (RBC) [Mass/Vol] 32.8 % 30.5 - 36.0 % [facility] MCV (RBC) [Entitic vol] 87 fL 77.0 - 99.0 fL [facility] Monocytes (Bld) [#/Vol] 0.9 10*3/uL 0.0 - 0.9 10*3/uL [facility] Monocytes/100 WBC (Bld) 10.4 % 5.0 - 13.0 % [facility] Neutrophils (Bld) [#/Vol] 6.2 10*3/uL 1.8 - 7.5 10*3/uL [facility] Neutrophils/100 WBC (Bld) 69.5 % 38.0 - 82.0 % [facility] Nucleated RBC/100 WBC (Bld) [Ratio] 0 % [facility] Platelet mean volume (Bld) [Entitic vol] 9 fL 9.0 - 12.7 fL [facility] Platelets (Bld) [#/Vol] 429 10*3/uL 140 - 440 10*3/uL [facility] RBC (Bld) [#/Vol] 3.68 10*6/uL Low 4.40 - 5.9 0 10*6/uL [facility] WBC (Bld) [#/Vol] 8.9 10*3/uL 3.6 - 10.7 10*3/uL [facility] CBC WITH AUTO DIFFERENTIALon 04-10-2024 Basophils (Bld) [#/Vol] 0.0 10*3/uL Normal 0.0-0.2 [facility] Comment on above: Performed By: #### L [id number] ####Black Studies Professor: MAMTA BILLY ([id number])[facility] ([facility])[address] [place] [address] Basophils/100 WBC (Bld) 0.4 % Normal 0.0-2.0 [facility] Comment on above: Performed By: #### L [id number] ####Black Studies Professor: MAMTA BILLY ([id number])[facility] [place] ([facility])[address] Eosinophils (Bld) [#/Vol] 0.2 10*3/uL Normal 0.0-0.5 [facility] Comment on above: Performed By: #### L [id number] ####Black Studies Professor: MAMTA ALBARRANDEBRA ([id number])[facility] ([facility])[address] Eosinophils/100 WBC (Bld) 2.5 % Normal 0.0-6.0 [facility] Comment on above: Performed By: #### L [id number] ####Black Studies Professor: MAMTA ALBARRANDEBRA ([id number])[facility] [place] ([facility])[address] Erythrocyte distribution width (RBC) [Ratio] 14.6 % Normal 11.5-15.0 [facility] Comment on above: Performed By: #### L [id number] ####Black Studies Professor: MAMTA ALBARRANDEBRA ([id number])[facility] ([facility])[address] Hematocrit (Bld) [Volume fraction] 32.0 % Low 40.0-52.0 [facility] Comment on above: Performed By: #### L [id number] ####Black Studies Professor: MAMTA BILLY ([id number])[facility] Hemoglobin (Bld) [Mass/Vol] 10.5 g/dL Low 13.0-18.0 [facility] Comment on above: Performed By: #### L [id number] ####Black Studies Professor: MAMTA BILLY ([id number])[facility])[address] IMMATURE GRANS % 1.1 % Normal 0.0-2.0 [facility] Comment on above: Performed By: #### L [id number] ####Black Studies Professor: MAMTA BILLY ([id number])[facility] ([facility])[address] IMMATURE GRANS ABSOLUTE 0.1 10*3/uL High <0.1 [facility] Comment on above: Performed By: #### L [id number] ####Black Studies Professor: MAMTA BILLY ([id number])[facility] ATK[facility] ([facility])[address] Lymphocytes (Bld) [#/Vol] 1.4 10*3/uL Normal 1.0-4.3 [facility] Comment on above: Performed By: #### L [id number] ####Black Studies Professor: MAMTA BILLY ([id number])[facility] ALDANAKarl ([facility])[address] Lymphocytes/100 WBC (Bld) 16.1 % Normal 15.0-45.0 [facility] Comment on above: Performed By: #### L [id number] ####Black Studies Professor: MAMTA BILLY ([id number])[facility] ALDANAK[facility] ([facility])[address] MCH (RBC) [Entitic mass] 28.5 pg Normal 26.0-34.0 [facility] Comment on above: Performed By: #### L [id number] ####Black Studies Professor: MAMTA BILLY ([id number])[facility] ATK[facility] ([facility])[address] MCHC 32.8 % Normal 30.5-36.0 [facility] Comment on above: Performed By: #### L [id number] ####Black Studies Professor: MAMTA BILLY ([id number])[facility] ATKINSEDWARDO ([facility])[address] MCV (RBC) [Entitic vol] 87.0 fL Normal 77.0-99.0 [facility] Comment on above: Performed By: #### L [id number] ####Black Studies Professor: MAMTA BILLY ([id number])[facility] ([facility])[address] Monocytes (Bld) [#/Vol] 0.9 10*3/uL Normal 0.0-0.9 [facility] Comment on above: Performed By: #### L [id number] ####Black Studies Professor: MAMTA BILLY ([id number])[facility] ([facility])[address] Monocytes/100 WBC (Bld) 10.4 % Normal 5.0-13.0 [facility] Comment on above: Performed By: #### L [id number] ####Black Studies Professor: MAMTA BILLY ([id number])[facility] [place] ([facility])[address] NEUTROPHILS ABSOLUTE 6.2 10*3/uL Normal 1.8-7.5 [facility] Comment on above: Performed By: #### L [id number] ####Black Studies Professor: MAMTA BILLY ([id number])[facility] [place] ([facility])[address] Neutrophils/100 WBC (Bld) 69.5 % Normal 38.0-82.0 [facility] Comment on above: Performed By: #### L [id number] ####Black Studies Professor: MAMTA BILLY ([id number])[facility] [place] ([facility])[address] NRBC 0.0 /100 WBCs Normal 0.0-2.0 [facility] Comment on above: Performed By: #### L [id number] ####Black Studies Professor: MAMTA BILLY ([id number])[facility] [place] ([facility])[address] Platelet mean volume (Bld) [Entitic vol] 9.0 fL Normal 9.0-12.7 [facility] Comment on above: Performed By: #### L [id number] ####Black Studies Professor: MAMTA BILLY ([id number])[facility] [place] ([facility])[address] Platelets (Bld) [#/Vol] 429 10*3/uL Normal 140-440 [facility] Comment on above: Performed By: #### L [id number] ####Black Studies Professor: MAMTA BILLY ([id number])[facility] ([facility])[address] RBC (Bld) [#/Vol] 3.68 10*6/uL Low 4.40-5.90 [facility] Comment on above: Performed By: #### L [id number] ####Black Studies Professor: MAMTA BILLY ([id number])[facility] [place] ([facility])[address] WBC (Bld) [#/Vol] 8.9 10*3/uL Normal 3.6-10.7 [facility] Comment on above: Performed By: #### L [id number] ####Black Studies Professor: MAMTA BILLY ([id number])[facility] MILLYNEW [facility] ([facility])[address] COMPREHENSIVE METABOLIC PANE Khris 04-10-2024 Albumin [Mass/Vol] 1.8 g/dL Low 3.4-4.8 [facility] Comment on above: Performed By: #### L [id number] ####Black Studies Professor: MAMTA BILLY ([id number])[facility] [place] ([facility])[address] ALP [Catalytic activity/Vol] 65 U/L Normal 40-150 [facility] Comment on above: Performed By: #### L [id number] ####Black Studies Professor: MAMTA BILLY ([id number])[facility] [place] ([facility])[address] ALT [Catalytic activity/Vol] 10 U/L Normal <40 [facility] Comment on above: Performed By: #### L [id number] ####Black Studies Professor: MAMTA BILLY ([id number])[facility] ([facility])[address] Anion gap [Moles/Vol] 4 mmol/L Normal 3-13 [facility] Comment on above: Performed By: #### L [id number] ####Black Studies Professor: MAMTA BILLY ([id number])[facility] [place] ([facility])[address] AST [Catalytic activity/Vol] 31 U/L Normal <34 [facility] Comment on above: Performed By: #### L [id number] ####Black Studies Professor: MAMTA BILLY ([id number])[facility] ([facility])[address] Bilirubin [Mass/Vol] 0.2 mg/dL Normal <1.2 [facility] Comment on above: Performed By: #### L [id number] ####Black Studies Professor: MAMTA BILLY ([id number])[facility] ([facility])[address] Calcium [Mass/Vol] 7.9 mg/dL Low 8.8-10.0 [facility] Comment on above: Performed By: #### L [id number] ####Black Studies Professor: MAMTA BILLY ([id number])[facility] ([facility])[address] Chloride [Moles/Vol] 111 mmol/L High 98-107 [facility] Comment on above: Performed By: #### L [id number] ####Black Studies Professor: MAMTA BILLY ([id number])[facility] ([facility])[address] [place] [address] [place] CO2 [Moles/Vol] 23 mmol/L Normal 23-31 [facility] Comment on above: Performed By: #### L [id number] ####Black Studies Professor: MAMTA BILLY ([id number])[facility] ([facility])[address] Creatinine [Mass/Vol] 0.62 mg/dL Low 0.72-1.25 [facility] Comment on above: Performed By: #### L [id number] ####Black Studies Professor: MAMTA BILLY ([id number])[facility] ([facility])[address] [place] [address] GLOMERULAR FILTRATION RATE ML/MIN/1.73 SQ M.PREDICTED >90.0 Normal >60.0 [facility] Comment on above: Result Comment: Calc ulation based on the Chronic Kidney Disease Epidemiology Collaboration (CKD-EPI) equation refit without adjustment for race Performed By: #### L [id number] ####Black Studies Professor: MAMTA BILLY ([id number])[facility] ([facility])[address] [place] [address] Glucose [Mass/Vol] 96 mg/dL Normal 82-115 [facility] Comment on above: Performed By: #### L [id number] ####Black Studies Professor: MAMTA BILLY ([id number])[facility] ([facility])[address] [place] [address] Potassium [Moles/Vol] 3.7 mmol/L Normal 3.5-5.1 [facility] Comment on above: Result Comment: [facility] potassium values may be up to 0.5 mmol/L lower than serum values. Performed By: #### L [id number] ####Black Studies Professor: MAMTA BILLY ([id number])[facility] [place] [address] Protein [Mass/Vol] 4.5 g/dL Low 6.4-8.3 [facility] Comment on above: Performed By: #### L [id number] ####Black Studies Professor: MAMTA BILLY ([id number])[facility] [place] [address] Sodium [Moles/Vol] 138 mmol/L Normal 136-145 [facility] Comment on above: Performed By: #### L [id number] ####Black Studies Professor: MAMTA BILLY ([id number])[facility] ([facility])[address] Urea nitrogen [Mass/Vol] 8 mg/dL Low 9-23 [facility] Comment on above: Performed By: #### L [id number] ####Black Studies Professor: MAMTA BILLY ([id number])[facility] ([facility])[address] Comprehensive metabolic 1998 panelon 04-10-2024 Albumin [Mass/Vol] 1.8 g/dL Low 3.4 - 4.8 g/dL [facility] ALP [Catalytic activity/Vol] 65 U/L 40 - 150 U/L [facility] ALT [Catalytic activity/Vol] 10 U/L NINF - 40 U/L [facility] Anion gap [Moles/Vol] 4 mmol/L 3 - 13 mmol/L [facility] AST [Catalytic activity/Vol] 31 U/L NINF - 34 U/L [facility] Bilirubin [Mass/Vol] 0.2 mg/dL NINF - 1.2 mg/dL [facility] Calcium [Mass/Vol] 7.9 mg/dL Low 8.8 - 10. 0 mg/dL [facility] Chloride [Moles/Vol] 111 mmol/L High 98 - 10 7 mmol/L [facility] CO2 [Moles/Vol] 23 mmol/L 23 - 31 mmol/L [facility] Creatinine [Mass/Vol] 0.62 mg/dL Low 0.72 - 1.25 mg/dL [facility] GFR/1.73 sq M.predicted (S/P/Bld) [Vol rate/Area] - PINF [facility] Comment on above: Calculation based on the Chronic Kidney Disease Epidemiology Collaboration (CKD-EPI) equation refit without adjustment for race Glucose [Mass/Vol] 96 mg/dL 82 - 115 mg/dL [facility] Interpretation and review of laboratory results Abnormal [facility] Potassium [Moles/Vol] 3.7 mmol/L 3.5 - 5.1 mmol/L [facility] Comment on above: Plasma potassium mera ues may be up to 0.5 mmol/L lower than serum values. Protein [Mass/Vol] 4.5 g/dL Low 6.4 - 8.3 g/dL [facility] Sodium [Moles/Vol] 138 mmol/L 136 - 145 mmol/L [facility] Urea nitrogen [Mass/Vol] 8 mg/dL Low 9 - 23 mg/dL [facility] Nursing Noteon 04-10-2024 Nursing Note Via secure chat, rep eat urine culture is not needed. Normal [facility] Progress Noteon 04-10-2024 Progress Note Speech-Language Pathology SPEECH LANGUAGE PATHOLOGY [facility] Dysphagia Treatment Note Patient Name: Doroteo Gong Evaluation Date: 04/10/2024 Date of : 1940 Admission Date: 04/07/2024 4:42 AM Age: 83 y.o. [facility] A Subjective Patient alert and not cooperative. Seen semi-upright in bed. Answers all basic questions with clear vocal quality with periods of wettness. Follows some basic commands. No visitors at bedside. Spoke with BELINDA Weller who cleared pt for treatment. Current Diet: Dietary Orders (From admission, onward) Start Ordered 04/09/24 1227 Supplement:Breakfast; Vanilla Ensure Plus Until discontinued Question Answer Comment Frequency Breakfast Select supplement: Vanilla Ensure Plus 04/09/24 1226 04/09/24 1227 Supplement:Lunch; Chocolate Ensure Plus Until discontinued Question Answer Comment Frequency Lunch Select supplement: Chocolate Ensure Plus 04/09/24 1226 04/09/24 1227 Supplement:Dinner; Dorr Ensure Plus Until discontinued Question Answer Comment Frequency Dinner Select supplement: Dorr Ensure Plus 04/09/24 1226 04/09/24 1150 Adult diet Dysphagia - Soft and Bite Sized Diet effective now Question: Diet type Answer: Dysphagia - Soft and Bite Sized 04/09/24 1149 Aspiration Precautions: - Upright positioning for all PO intake - Slow rate of intake - Small bites/sips - 1:1 Assistance Oxygen: Oxygen Therapy: Supplemental oxygen O2 Delivery Method: Nasal cannula O2 Flow Rate (L/min): 2 L/min I can't sit up because my coccyx hurts Pain: Pain in coccyx, RN aware and did previously medicate. Pt was repositioned at end of session. PPE Worn: gloves Objective & Assessment Dysphagia Treatment # of Activities: 1 Dysphagia Activity 1: Assess tolerance of current diet. Advanced diet trials if dentures present. Pt indicated that he does not have his dentures. He thinks they are in the closet or at the previous rehab facility. Noted: they are loose, I've lost weight. Pt took very limited po, only sips of water. Noted some baseline intermittent cough/wetness. Pt deferred any solid textures at this time. No additional information or report on tolerance of current recommended diet of soft and bite sized. Suggest further assessment. Will attempt prandial assessment as pt willing. Plan & Recommendations Plan: Continue assessment of current diet of soft and bite sized. Advanced diet trials if dentures are available. Continue acute [employer]IAL ART[employer] INSTRU[employer] therapy per initial plan of care and established goals. D/C Recommendations: to be determined Education Education Given: swallowing strategies, diet recommendations/availab ility of dentures Given To: patient Response: needs reinforcement Goals Patient Stated Goal: To get comfortable. Encounter Problems Encounter Problems (Active) Swallowing Patient will tolerate the least restrictive diet consistency to allow for safe consumption of daily meals (Initiated) Start: 04/09/24 Expected End: 04/23/24 Patient will tolerate recommended food and liquid consistencies without clinical signs and symptoms of aspirations (Initiated) Start: 04/09/24 Expected End: 04/23/24 Therapy Time [employer] INSTRUCTOR Individual Minutes Time In: 1410 Time Out: 1419 Minutes: 9 Izzy Chavez, [employer] INSTRUCTOR Normal [facility] Bacteria identified Cx Nom ( U)Ordered By: Jaclyn Swanson on 04-09-2024 Interpretation and review of laboratory results Normal [facility] CBC W Auto Differential pane l (Bld)on 04-09-2024 Basophils (Bld) [#/Vol] 0 10*3/uL 0.0 - 0.2 10*3/uL [facility] Basophils/100 WBC (Bld) 0.2 % 0.0 - 2.0 % [facility] Eosinophils (Bld) [#/Vol] 0.1 10*3/uL 0.0 - 0.5 10*3/uL [facility] Eosinophils/100 WBC (Bld) 1.3 % 0.0 - 6.0 % [facility] Erythrocyte distribution width (RBC) [Ratio] 14.4 % 11.5 - 15.0 % [facility] Hematocrit (Bld) [Volume fraction] 32.4 % Low 40.0 - 52.0 % [facility] Hemoglobin (Bld) [Mass/Vol] 10.6 g/dL Low 13.0 - 18.0 g/dL [facility] [employer] Immature granulocytes (Bld) [#/Vol] 0.1 10*3/uL High NINF - 0.1 10*3/uL [facility] Immature granulocytes/100 WBC (Bld) 0.8 % 0.0 - 2.0 % [facility] Interpretation and review of laboratory results Abnormal [facility] Lymphocytes (Bld) [#/Vol] 1.4 10*3/uL 1.0 - 4.3 10*3/uL [facility] Lymphocytes/100 WBC (Bld) 14.6 % Low 15.0 - 45.0 % [facility] MCH (RBC) [Entitic mass] 28.5 pg 26. 0 - 34.0 pg [facility] MCHC (RBC) [Mass/Vol] 32.7 % 30.5 - 36.0 % [facility] MCV (RBC) [Entitic vol] 87.1 fL 77.0 - 99.0 fL [facility] Monocytes (Bld) [#/Vol] 0.9 10*3/uL 0.0 - 0.9 10*3/uL [facility] Monocytes/100 WBC (Bld) 9.2 % 5.0 - 13.0 % [facility] Neutrophils (Bld) [#/Vol] 7.2 10*3/uL 1.8 - 7.5 10*3/uL [facility] Neutrophils/100 WBC (Bld) 73.9 % 38.0 - 82.0 % [facility] Nucleated RBC/100 WBC (Bld) [Ratio] 0 % [facility] Platelet mean volume (Bld) [Entitic vol] 9 fL 9.0 - 12.7 fL [facility] Platelets (Bld) [#/Vol] 447 10*3/uL High 140 - 440 10*3/uL [facility] RBC (Bld) [#/Vol] 3.72 10*6/uL Low 4.40 - 5.9 0 10*6/uL [facility] WBC (Bld) [#/Vol] 9.7 10*3/uL 3.6 - 10.7 10*3/uL [facility] CBC WITH AUTO DIFFERENTIALon 04-09-2024 Basophils (Bld) [#/Vol] 0.0 10*3/uL Normal 0.0-0.2 [facility] Comment on above: Performed By: #### L [id number] ####Black Studies Professor: MAMTA BILLY ([id number])[facility] ([facility])[address] Basophils/100 WBC (Bld) 0.2 % Normal 0.0-2.0 S [facility] Comment on above: Performed By: #### L [id number] ####Black Studies Professor: MAMTA BILLY ([id number])[facility] ([facility])[address] Eosinophils (Bld) [#/Vol] 0.1 10*3/uL Normal 0.0-0.5 [facility] Comment on above: Performed By: #### L [id number] ####Black Studies Professor: MAMTA ALBARRANDEBRA ([id number])[facility] ([facility])[address] Eosinophils/100 WBC (Bld) 1.3 % Normal 0.0-6.0 [facility] Comment on above: Performed By: #### L [id number] ####Black Studies Professor: MAMTA BILLY ([id number])[facility] ([facility])[address] [place] [address] Erythrocyte distribution width (RBC) [Ratio] 14.4 % Normal 11.5-15.0 [facility] Comment on above: Performed By: #### L [id number] ####Black Studies Professor: MAMTA BILLY ([id number])[facility] ([facility])[address] [place] [address] Hematocrit (Bld) [Volume fraction] 32.4 % Low 40.0-52.0 [facility] Comment on above: Performed By: #### L [id number] ####Black Studies Professor: MAMTA BILLY ([id number])[facility] ([facility])[address] [place] [address] Hemoglobin (Bld) [Mass/Vol] 10.6 g/dL Low 13.0-18.0 [facility] Comment on above: Performed By: #### L [id number] ####Black Studies Professor: MATMA BILLY ([id number])[facility] ([facility])[address] IMMATURE GRANS % 0.8 % Normal 0.0-2.0 [facility] Comment on above: Performed By: #### L [id number] ####Black Studies Professor: MAMTA BILLY ([id number])[facility] [place] ([facility])[address] IMMATURE GRANS ABSOLUTE 0.1 10*3/uL High <0.1 [facility] Comment on above: Performed By: #### L [id number] ####Black Studies Professor: MAMTA BILLY ([id number])[facility] ([facility])[address] Lymphocytes (Bld) [#/Vol] 1.4 10*3/uL Normal 1.0-4.3 [facility] Comment on above: Performed By: #### L [id number] ####Black Studies Professor: MAMTA BILLY ([id number])[facility] ([facility])[address] Lymphocytes/100 WBC (Bld) 14.6 % Low 15.0-45.0 [facility] Comment on above: Performed By: #### L [id number] ####Black Studies Professor: MAMTA BILLY ([id number])[facility] ([facility])[address] MCH (RBC) [Entitic mass] 28.5 pg Normal 26.0-34.0 [facility] Comment on above: Performed By: #### L [id number] ####Black Studies Professor: MAMTA BILLY ([id number])[facility] ([facility])[address] MCHC 32.7 % Normal 30.5-36.0 [facility] Comment on above: Performed By: #### L [id number] ####Black Studies Professor: MAMTA BILLY ([id number])[facility] ([facility])[address] MCV (RBC) [Entitic vol] 87.1 fL Normal 77.0-99.0 [facility] Comment on above: Performed By: #### L [id number] ####Black Studies Professor: MAMTA BILLY ([id number])[facility] ([facility])[address] Monocytes (Bld) [#/Vol] 0.9 10*3/uL Normal 0.0-0.9 [facility] Comment on above: Performed By: #### L [id number] ####Black Studies Professor: MAMTA BILLY ([id number])[facility] ([facility])[address] Monocytes/100 WBC (Bld) 9.2 % Normal 5.0-13.0 [facility] Comment on above: Performed By: #### L [id number] ####Black Studies Professor: MAMTA BILLY ([id number])[facility] (SBHLAB)[address] NEUTROPHILS ABSOLUTE 7.2 10*3/uL Normal 1.8-7.5 [facility] Comment on above: Performed By: #### L [id number] ####Black Studies Professor: MAMTA BILLY ([id number])[facility] [place] (SBHLAB)[address] Neutrophils/100 WBC (Bld) 73.9 % Normal 38.0-82.0 [facility] Comment on above: Performed By: #### L [id number] ####Black Studies Professor: MAMTA BILLY ([id number])[facility] (SB[facility])[address] NRBC 0.0 /100 WBCs Normal 0.0-2.0 [facility] Comment on above: Performed By: #### L [id number] ####Black Studies Professor: MAMTA BILLY ([id number])[facility] (SBHLAB)[address] Platelet mean volume (Bld) [Entitic vol] 9.0 fL Normal 9.0-12.7 [facility] Comment on above: Performed By: #### L [id number] ####Black Studies Professor: MAMTA BILLY ([id number])[facility] (SBHLAB)[address] Platelets (Bld) [#/Vol] 447 10*3/uL High 140-440 [facility] Comment on above: Performed By: #### L [id number] ####Black Studies Professor: MAMTA BILLY ([id number])[facility] (SBHLAB)[address] RBC (Bld) [#/Vol] 3.72 10*6/uL Low 4.40-5.90 [facility] Comment on above: Performed By: #### L [id number] ####Black Studies Professor: MAMTA BILLY ([id number])[facility] (SBHLAB)[address] WBC (Bld) [#/Vol] 9.7 10*3/uL Normal 3.6-10.7 [facility] Comment on above: Performed By: #### L [id number] ####Black Studies Professor: MAMTA BILLY ([id number])[facility] ([facility])[address] COMPREHENSIVE METABOLIC PANE Khris 04-09-2024 Albumin [Mass/Vol] 2.0 g/dL Low 3.4-4.8 [facility] Comment on above: Performed By: #### L [id number] ####Black Studies Professor: MAMTA BILLY ([id number])[facility] ([facility])[address] ALP [Catalytic activity/Vol] 76 U/L Normal 40-150 [facility] Comment on above: Performed By: #### L [id number] ####Black Studies Professor: MAMTA BILLY ([id number])[facility] (SB[facility])[address] ALT [Catalytic activity/Vol] 10 U/L Normal <40 [facility] Comment on above: Performed By: #### L AB17 ####Black Studies Professor: MAMTA BILLY ([id number])[facility] (SB[facility]AB)[address] Anion gap [Moles/Vol] 6 mmol/L Normal 3-13 [facility] Comment on above: Performed By: #### L AB17 ####Black Studies Professor: MAMTA BILLY ([id number])[facility] (SBHLAB)[address] AST [Catalytic activity/Vol] 31 U/L Normal <34 [facility] Comment on above: Performed By: #### L [id number] ####Black Studies Professor: MAMTA BILLY ([id number])[facility] (SB[facility])[address] Bilirubin [Mass/Vol] 0.2 mg/dL Normal <1.2 [facility] Comment on above: Performed By: #### L AB17 ####Black Studies Professor: MAMTA BILLY ([id number])[facility] (SBHLAB)[address] Calcium [Mass/Vol] 8.0 mg/dL Low 8.8-10.0 [facility] Comment on above: Performed By: #### L [id number] ####Black Studies Professor: MAMTA BILLY ([id number])[facility] ([facility])[address] Chloride [Moles/Vol] 107 mmol/L Normal 98-107 [facility] Comment on above: Performed By: #### L [id number] ####Black Studies Professor: MAMTA BILLY ([id number])[facility] (SBHLAB)[address] CO2 [Moles/Vol] 22 mmol/L Low 23-31 [facility] Comment on above: Performed By: #### L [id number] ####Black Studies Professor: MAMTA BILLY ([id number])[facility] (SB[facility])[address] Creatinine [Mass/Vol] 0.67 mg/dL Low 0.72-1.25 [facility] Comment on above: Performed By: #### L [id number] ####Black Studies Professor: MAMTA BILLY ([id number])[facility] (SBHLAB)[address] GLOMERULAR FILTRATION RATE ML/MIN/1.73 SQ M.PREDICTED >90.0 Normal >60.0 [facility] Comment on above: Result Comment: Calc ulation based on the Chronic Kidney Disease Epidemiology Collaboration (CKD-EPI) equation refit without adjustment for race Performed By: #### L [id number] ####Black Studies Professor: MAMTA BILLY ([id number])[facility] (SB[facility])[address] Glucose [Mass/Vol] 108 mg/dL Normal 82-115 [facility] Comment on above: Performed By: #### L [id number] ####Black Studies Professor: MAMTA BILLY ([id number])[facility] (SBHLAB)[address] Potassium [Moles/Vol] 3.2 mmol/L Low 3.5-5.1 [facility] Comment on above: Result Comment: [facility] potassium values may be up to 0.5 mmol/L lower than serum values. Performed By: #### L [id number] ####Black Studies Professor: MAMTA BILLY ([id number])[facility] ATKINSNEW [facility] (SBHLAB)[address] Protein [Mass/Vol] 4.9 g/dL Low 6.4-8.3 [facility] Comment on above: Performed By: #### L [id number] ####Black Studies Professor: MAMTA BILLY ([id number])[facility] (SBHLAB)[address] Sodium [Moles/Vol] 135 mmol/L Low 136-145 [facility] Comment on above: Performed By: #### L [id number] ####Black Studies Professor: MAMTA BILLY ([id number])[facility] (SBHLAB)[address] Urea nitrogen [Mass/Vol] 12 mg/dL Normal 9- [facility] Comment on above: Performed By: #### L [id number] ####Black Studies Professor: MAMTA ALBARRANDEBRA ([id number])[facility] (SBAB)[address] [place] [address] Comprehensive metabolic 1998 panelon 04-09-2024 Albumin [Mass/Vol] 2 g/dL Low 3.4 - 4.8 g/dL [facility] ALP [Catalytic activity/Vol] 76 U/L 40 - 150 U/L [facility] ALT [Catalytic activity/Vol] 10 U/L [facility] U/L [facility] Anion gap [Moles/Vol] 6 mmol/L 3 - 13 mmol/L [facility] AST [Catalytic activity/Vol] 31 U/L [facility] - 34 U/L [facility] Bilirubin [Mass/Vol] 0.2 mg/dL NINF - 1.2 mg/dL [facility] Calcium [Mass/Vol] 8 mg/dL Low 8.8 - 10. 0 mg/dL [facility] Chloride [Moles/Vol] 107 mmol/L 98 - 10 7 mmol/L [facility] CO2 [Moles/Vol] 22 mmol/L Low 23 - 31 mmol/L [facility] Creatinine [Mass/Vol] 0.67 mg/dL Low 0.72 - 1.25 mg/dL [facility] GFR/1.73 sq M.predicted (S/P/Bld) [Vol rate/Area] - PINF [facility] Comment on above: Calculation based on the Chronic Kidney Disease Epidemiology Collaboration (CKD-EPI) equation refit without adjustment for race Glucose [Mass/Vol] 108 mg/dL 82 - 115 mg/dL [facility] Interpretation and review of laboratory results Abnormal [facility] Potassium [Moles/Vol] 3.2 mmol/L Low 3.5 - 5.1 mmol/L [facility] Comment on above: Plasma potassium mera ues may be up to 0.5 mmol/L lower than serum values. Protein [Mass/Vol] 4.9 g/dL Low 6.4 - 8.3 g/dL [facility] Sodium [Moles/Vol] 135 mmol/L Low 136 - 145 mmol/L [facility] Urea nitrogen [Mass/Vol] 12 mg/dL 9 - 23 mg/dL [facility] - Microbiology an d Antimicrobial susceptibilityOrdered By: Jaclyn Swanson on 04-09-2024 Bacteria identified Cx Nom (U) Multiple species present; probable contamination; repeat suggested [facility] Progress Noteon 04-09-2024 Progress Note Nutrition Assessment Type and Reason for Visit: Initial, Wound Nutrition Recommendations/Plan: Continue Soft and Bite Sized diet with meds crushed in Puree as recommended by MARTIAL ARTS INSTRUCTOR- Assist in room service participation, and encourage to order nutrient dense meals Per MNT Protocol, added Ensure TID with meals (+350 kcal, 20 g protein, 240 mL/serving) Please document all oral intake in EMR for most accurate nutrient intake assessment As able, please obtain weekly standing scale weights for most accurate anthropometric data and calculation of macronutrient and fluid needs RDN to continue to monitor weekly: fluid accumulation, weight, skin integrity, trends in lab values, tolerance of PO and ONS, changes in clinical status, discharge planning. Malnutrition Assessment: Malnutrition Status: Moderate malnutrition Context: Chronic Illness Findings of the 6 clinical characteristics of malnutrition: Energy Intake: 75% or less estimated energy requirements for 1 month or longer (predicted, per pallaitive care note poor PO x six weeks and relying on Ensure for primary source of nutrition) Weight Loss: Mild weight loss (specify amount and time period) (-13% over 1 year) Body Fat Loss: Severe body fat loss (observed) Orbital, Buccal region Muscle Mass Loss: Severe muscle mass loss (observed) Temples (temporalis), Clavicles (pectoralis & deltoids) Fluid Accumulation: Unable to assess Professor Of Visual Arts Strength: Not Performed Nutrition Assessment: 83 year old man with PMHx: UTIs, nephrolithiasis, GERD, chronic pain, HTN, interstitial lung disease, RICKY, COPD with asthma. Presented to [facility] ED via EMS from SNF with ?altered mental status? and ?repeatedly pressing call light too many times?. A+Ox4 for EMS, patient cites abdominal pain/discomfort. He was most recently on cefuroxime last week, and has been on Macrobid for two days for UTI. Significant labs on admit: Na+(130), K+(3.4), BUN(25), WBC(15.4), Hgb(12.9), Hct(37.5). Adbominal CT showed: ?irregular bladder wall thickening along with some obstructive uropathy- unable to exclude bladder wall malignancy and left hydroureter? suggested gaseous distention of the large bowel suggestive of constipation and bilateral nonobstructing renal calculi?. Urology consulted for obstructive uropathy- checked schwartz placement, felt not in the proper place as + purulent urine drainage after repositioning. Planning to discharge with schwartz. Palliative care consulted and following for GOC, requested DNR-CCA-DNI. Sleeping at time of assesment, did not wake. Bed scale weight obtained: 138.2#, unsure of UBW. MARTIAL ARTS INSTRUCTOR recommending Soft and Bite sized diet. Estimated Daily Nutrient Needs: Energy Requirements Based On: Kcal/kg Weight Used for Energy Requirements: [place] Weight for Energy Calculation (kg): 48 kg Total Energy Requirements (kcals/day): 5397-9963 (25-30 kcal/kg IBW) Weight Used for Protein Requirements: [place] Weight in Kg Used for Protein Requirements: 48 kg Estimated Total Protein (g/day): 48-72 (1.0-1.5 g protein/kg IBW) Estimated Daily Total Fluid (ml/day): per MD Nutrition Related Findings: A+Ox4. +MASD to buttocks, +bm 04/07 and 04/08. PO <50%. Meds: Lipitor, rocephin, synthroid, zoloft, B12, PPI, metamucil. Labs reviewed Wound Type: Moisture Associate Skin Damage (buttocks) Current Nutrition Therapies: Adult diet Dysphagia - Soft and Bite Sized Current Oral Intake Average Meal Intake: 26-50% Average Supplements Intake: None Ordered Anthropometric Measures: Height: 152.4 cm (5') Current Body Weight: 62.7 kg (138 lb 3.7 oz) Weight Source: Bed Scale Admission Body Weight: (NA) Usual Body Weight: 72.1 kg (159 lb) (per EMR 03/18/23) % Weight Change (Calculated): -13.1 [place] Body Weight (lbs) (Calculated): 106 lbs [place] Body Weight (Kg) (Calculated): 48 kg % [place] Body Weight (Calculated): 130.4 % BMI (kg/m2) (Calculated): 27 Weight Adjustment For: No Adjustment Nutrition Diagnosis: Moderate malnutrition, In context of chronic illness related to inadequate protein-energy intake as evidenced by poor intake prior to admission, moderate muscle loss related to as evidenced by Nutrition Interventions: Nutrition Education/Counseling: Education not indicated Coordination of Nutrition Care: Speech Therapy, Continue to monitor while inpatient Plan of Care discussed with: NA Goals: Goals: PO intake 50% or greater Nutrition Monitoring and Evaluation: Behavioral-Environmenta l Outcomes: None Identified Food/Nutrient Intake Outcomes: Food and Nutrient Intake, Supplement Intake Physical Signs/Symptoms Outcomes: Biochemical Data, Chewing or Swallowing, GI Status, Nausea or Vomiting, Fluid Status or Edema, Weight, Skin, Hemodynamic Status, Meal Time Behavior, Nutrition Focused Physical Findings Discharge Planning: Continue current diet, Continue Oral Nutrition Supplement Teri Mar RDN, LDN, Contact: *[phone] [facility] Progress Note Speech-Language Pathology SPEECH LANGUAGE PATHOLOGY [facility] Bedside Swallow Evaluation Patient Name: Doroteo Gong Evaluation Date: 04/09/2024 Date of : 1940 Admission Date: 04/07/2024 4:42 AM Age: 83 y.o. [facility]Bed: [facility] A IMPRESSION: S/s oropharyngeal dysphagia. No overt clinical s/s pulmonary compromise with PO. Risk factors for aspiration include lacking dentition, confusion, abdominal discomfort, patient reports of modified diet at baseline. RECOMMENDATION: Recommend Soft and bite-sized solids and Thin liquids and meds crushed in puree and the following precautions: - Upright positioning for all PO intake - Slow rate of intake - Small bites/sips - 1:1 Assistance Dysphagia NOMS: Level 5: Swallowing is safe with minimal diet restrictions and/or occasionally requires minimal cues to use compensatory strategies. The individual may occasionally self-cue. All nutrition and hydration needs are met by mouth. Pt would benefit from skilled acute MARTIAL ARTS INSTRUCTOR services to address diet tolerance and to determine safest, least restrictive diet. Frequency: 3 days/wk for 2 weeks Barriers: Confusion and discomfort Prognosis: fair D/C Recommendations: to be determined Subjective Patient alert but confused and cooperative. Seen semi-upright in bed - patient would not allow ST to sit him up greater than ~45 degrees due to leg pain and abdominal discomfort. Answers all basic questions with clear, strong vocal quality. Follows some basic commands. No visitors at bedside. Spoke with BELINDA Patterson who cleared pt to be evaluated. Dysphagia History: No history of MARTIAL ARTS INSTRUCTOR services in EMR with retrospective chart review Baseline Diet: Per patient, soft solids. Current Diet: Dietary Orders (From admission, onward) Start Ordered 04/07/24 1200 Adult diet Regular Diet effective now Question: Diet type Answer: Regular 04/07/24 1200 Tube Feeding: no Tracheostomy: no Recent Chest Xray/CT of Chest: XR chest 2 views 04/08/2024 Impression Limited examination. No consolidation. No large pleural effusion. Report Dictated on Electronically Signed By: Roger Cervantes MD Electronically Signed Date/Time: 04/08/2024 8:04 PM EST Oxygen: Oxygen Therapy: Supplemental oxygen O2 Delivery Method: Nasal cannula O2 Flow Rate (L/min): 2 L/min Past Medical History: Past Medical History: Diagnosis Date Arthritis knees hands Asthma Chronic pain GERD (gastroesophageal reflux disease) Hyperlipidemia Kidney stone 2012 Prostate disease Sleep apnea Thyroid disease Past Surgical History: Past Surgical History: Procedure Laterality Date APPENDECTOMY BACK SURGERY 2014 slipped disc CATARACT EXTRACTION CHOLECYSTECTOMY JOINT REPLACEMENT Right 2014 LITHOTRIPSY 3-4 times OTHER SURGICAL HISTORY hemorroid removed OTHER SURGICAL HISTORY Left 12/19/2017 stent placement, cystoscopy and pyelogram, Laser Lithotripsy SINUS SURGERY Admission Diagnosis: Patient Active Problem List Diagnosis Date Noted Urinary tract infection without hematuria, site unspecified 04/07/2024 Debility 02/14/2023 Declining functional status 02/14/2023 History of urinary retention 02/14/2023 At risk for delirium 02/14/2023 Polypharmacy 02/14/2023 Inability to walk 02/13/2023 Influenza A 03/21/2022 UTI (urinary tract infection) 02/23/2022 Fall, initial encounter 02/22/2022 Oropharyngeal dysphagia 04/25/2021 Hypoxia 11/04/2020 RICKY (obstructive sleep apnea) 11/04/2020 Class 2 obesity due to excess calories without serious comorbidity with body mass index (BMI) of 36.0 to 36.9 in adult 11/04/2020 Moderate persistent asthma without complication 11/04/2020 Shortness of breath 10/05/2020 Upper respiratory tract infection due to influenza A virus 06/23/2019 Acute asthma exacerbation 06/20/2019 Ureteral calculus 12/19/2017 Hypertrophy of prostate with urinary obstruction 08/02/2017 Renal calculi 09/28/2016 Hydronephrosis with ureteropelvic junction (UPJ) obstruction 09/28/2016 Flank pain 09/28/2016 History of Present Illness: Doroteo is a 83 y.o. male with past medical history below who presents with chief complaint listed above. Doroteo Gong is a 83 y.o. male with past medical history significant for UTIs, nephrolithiasis, GERD, chronic pain, pulmonary hypertension, interstitial lung disease, RICKY, COPD with asthma who presents to the emergency department per EMS with reported history of altered mental status. He arrived here from [facility], because he was pressing the call light too many times SNF reported the patient was confused, however patient was alert and oriented x 4 for EMS with stable vital signs He complained of abdominal discomfort since today morning which is diffuse and associated with nausea but no vomiting.. Denies any melena or hematochezia. He has had follow-ups with Dr. Ordonez from urology service and (more content not included)... Normal [facility] 30on 04-08-2024 30 Problem: Knowledge Deficit Goal: Patient/family/caregive r demonstrates understanding of disease process, treatment plan, medications, and discharge instructions Outcome: Progressing Problem: Potential for Compromised Skin Integrity Goal: Skin Integrity is Maintained or Improved Outcome: Progressing Normal [facility] [id number] 04-08-2024 [id number] Received a message kenroy VACA that pt's family would like for him to go to [facility] rather than return to [facility]. Referral sent, [facility] is able to accept. Does not need auth, does need 3MN inpatient stay. TCC will continue to follow. [facility] [phone] IA completed with pt at BS. From [facility]. Has cane, WW, and handicapped accessible bathroom. Facility assists with ADLs and IADLs. 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 Awaiting answer from SNF. TCC will continue to follow. The time of this note does not reflect the actual time patient was seen and assessed but instead the time of this documentation. [facility] 36on 04-08-2024 36 PT phone # doesn't work. [phone] Pt admitted to [place] currently. Called pt at hospital in his room. Got new phone # [phone] Scheduled for follow up 04/28/24 @ 130pm with Emory Jacome Sending letter with appt information to patient [facility] BASIC METABOLIC PANELon 03-17 Anion gap [Moles/Vol] 7 mmol/L Normal 3-13 [facility] Comment on above: Performed By: #### L AB15 ####Black Studies Professor: MAMTA BILLY ([id number])[facility] ([facility])[address] [place] [address] Calcium [Mass/Vol] 8.9 mg/dL Normal 8.8-10.0 [facility] Comment on above: Performed By: #### L AB15 ####Black Studies Professor: MAMTA BILLY ([id number])[facility] ([facility])[address] [place] [address] [place] Chloride [Moles/Vol] 100 mmol/L Normal 98-107 [facility] Comment on above: Performed By: #### L AB15 ####Black Studies Professor: MAMTA BILLY ([id number])[facility] ([facility])[address] [place] [address] [place] CO2 [Moles/Vol] 26 mmol/L Normal 23-31 [facility] Comment on above: Performed By: #### L AB15 ####Black Studies Professor: MAMTA BILLY ([id number])[facility] (SBHLAB)[address] Creatinine [Mass/Vol] 0.88 mg/dL Normal 0.72-1.25 [facility] Comment on above: Performed By: #### L AB15 ####Black Studies Professor: MAMTA BILLY ([id number])[facility] (SBHLAB)[address] GLOMERULAR FILTRATION RATE ML/MIN/1.73 SQ M.PREDICTED 84.8 mL/min/1.73m*2 Normal >60.0 [facility] Comment on above: Result Comment: Calc ulation based on the Chronic Kidney Disease Epidemiology Collaboration (CKD-EPI) equation refit without adjustment for race Performed By: #### L AB15 ####Black Studies Professor: MAMTA BILLY ([id number])[facility] (SBHL[facility])[address] Glucose [Mass/Vol] 91 mg/dL Normal 82-115 [facility] Comment on above: Performed By: #### L AB15 ####Black Studies Professor: MAMTA BILLY ([id number])[facility] (HLAB)[address] Potassium [Moles/Vol] 3.8 mmol/L Normal 3.5-5.1 [facility] Comment on above: Result Comment: [facility] potassium values may be up to 0.5 mmol/L lower than serum values. Performed By: #### L AB15 ####Black Studies Professor: MAMTA BILLY ([id number])[facility] (SBHLAB)[address] [place] [address] [place] Sodium [Moles/Vol] 133 mmol/L Low 136-145 [facility] Comment on above: Performed By: #### L AB15 ####Black Studies Professor: MAMTA BILLY ([id number])[facility] (SBHL[facility])[address] [place] [address] [place] Urea nitrogen [Mass/Vol] 28 mg/dL High 9-23 [facility] Comment on above: Performed By: #### L AB15 ####Black Studies Professor: MAMTA BILLY ([id number])[facility] ([facility])[address] [place] [address] Basic metabolic 1998 panelon 04-08-2024 Anion gap [Moles/Vol] 7 mmol/L 3 - 13 mmol/L [facility] Calcium [Mass/Vol] 8.9 mg/dL 8.8 - 10. 0 mg/dL [facility] Chloride [Moles/Vol] 100 mmol/L 98 - 10 7 mmol/L [facility] CO2 [Moles/Vol] 26 mmol/L 23 - 31 mmol/L [facility] Creatinine [Mass/Vol] 0.88 mg/dL 0.72 - 1.25 mg/dL [facility] GFR/1.73 sq M.predicted (S/P/Bld) [Vol rate/Area] 84.8 mL/min - PINF [facility] Comment on above: Calculation based on the Chronic Kidney Disease Epidemiology Collaboration (CKD-EPI) equation refit without adjustment for race Glucose [Mass/Vol] 91 mg/dL 82 - 115 mg/dL [facility] Interpretation and review of laboratory results Abnormal [facility] Potassium [Moles/Vol] 3.8 mmol/L 3.5 - 5.1 mmol/L [facility] Comment on above: Plasma potassium mera ues may be up to 0.5 mmol/L lower than serum values. Sodium [Moles/Vol] 133 mmol/L Low 136 - 145 mmol/L [facility] Urea nitrogen [Mass/Vol] 28 mg/dL High 9 - 23 mg/dL [facility] CBC W Auto Differential pane l (Bld)Ordered By: Valery Claros on 04-08-2024 Erythrocyte distribution width (RBC) [Ratio] 14.1 % 11.5 - 15.0 % [facility] Hematocrit (Bld) [Volume fraction] 36.3 % Low 40.0 - 52.0 % [facility] Hemoglobin (Bld) [Mass/Vol] 12 g/dL Low 13.0 - 18.0 g/dL [facility] MCH (RBC) [Entitic mass] 28.5 pg 26. 0 - 34.0 pg [facility] MCHC (RBC) [Mass/Vol] 33.1 % 30.5 - 36.0 % [facility] MCV (RBC) [Entitic vol] 86.2 fL 77.0 - 99.0 fL [facility] Platelet mean volume (Bld) [Entitic vol] 9.3 fL 9.0 - 12.7 fL [facility] Platelets (Bld) [#/Vol] 524 10*3/uL High 140 - 440 10*3/uL [facility] RBC (Bld) [#/Vol] 4.21 10*6/uL Low 4.40 - 5.9 0 10*6/uL [facility] WBC (Bld) [#/Vol] 20 10*3/uL High 3.6 - 10.7 10*3/uL [facility] CBC WITH AUTO DIFFERENTIALon 04-08-2024 Erythrocyte distribution width (RBC) [Ratio] 14.1 % Normal 11.5-15.0 [facility] Comment on above: Performed By: #### Louisa [id number], [id number] ####Black Studies Professor: MAMTA BILLY ([id number])[facility] ([facility])[address] [place] [address] Hematocrit (Bld) [Volume fraction] 36.3 % Low 40.0-52.0 [facility] Comment on above: Performed By: #### Louisa [id number], [id number] ####Black Studies Professor: MAMTA BILLY ([id number])[facility] ([facility])[address] [place] [address] Hemoglobin (Bld) [Mass/Vol] 12.0 g/dL Low 13.0-18.0 [facility] Comment on above: Performed By: #### L [id number], [id number] ####Black Studies Professor: MAMTA BILLY ([id number])[facility] ([facility])[address] [place] [address] MCH (RBC) [Entitic mass] 28.5 pg Normal 26.0-34.0 [facility] Comment on above: Performed By: #### L [id number], [id number] ####Black Studies Professor: MAMTA BILLY ([id number])[facility] ([facility])[address] MCHC 33.1 % Normal 30.5-36.0 [facility] Comment on above: Performed By: #### L [id number], [id number] ####Black Studies Professor: MAMTA BILLY ([id number])[facility] ([facility])[address] MCV (RBC) [Entitic vol] 86.2 fL Normal 77.0-99.0 [facility] Comment on above: Performed By: #### L [id number], [id number] ####Black Studies Professor: MAMTA ALBARRANDEBRA ([id number])[facility] ([facility])[address] [place] [address] Platelet mean volume (Bld) [Entitic vol] 9.3 fL Normal 9.0-12.7 [facility] Comment on above: Performed By: #### L [id number], [id number] ####Black Studies Professor: MAMTA BILLY ([id number])[facility] ([facility])[address] Platelets (Bld) [#/Vol] 524 10*3/uL High 140-440 [facility] Comment on above: Performed By: #### L [id number], [id number] ####Black Studies Professor: MAMTA BILLY ([id number])[facility] ([facility])[address] RBC (Bld) [#/Vol] 4.21 10*6/uL Low 4.40-5.90 [facility] Comment on above: Performed By: #### L [id number], [id number] ####Black Studies Professor: MAMTA BILLY ([id number])[facility] ([facility])[address] [place] [address] [place] WBC (Bld) [#/Vol] 20.0 10*3/uL High 3.6-10.7 [facility] Comment on above: Performed By: #### L [id number], [id number] ####Black Studies Professor: MAMTA BILLY ([id number])[facility] ([facility])[address] Consulton 04-08-2024 Consult Palliative Care Init ial Consult Chief Complaint: Doroteo Gong is a 83 y.o. male with chief complaint of altered mentation. Palliative Care will follow peripherally, please contact on-call provider for urgent needs Assessment/Plan UTI/obstructive uropathy - schwartz placed, seen by Urology today, note appreciated - per primary: ceftriaxone, tamsulosin HX COPD - O2 2L - mgmt per primary: ipratropium nebs Risk for constipation/hx diarrhea - CT A/P with evidence of constipation - had 2 BM overnight - per primary: polyethylene glycol, psyllium Debility - has resided at [facility] since March 2023 Chronic back pain - prn tramadol with relief, would not adjust this medication as helpful Reduced appetite - tells me better since he is not at the [facility] - albumin marginally low at 2.6 - ate quarter of breakfast today Palliative Care Encounter -full code - consulted for pain and goals of care - Introduced the palliative care service to the patient and/or family. Discussed that we see patients with serious illnesses. Our role is to assist with pain and symptom management and to support the patient and family to promote quality of life. We at times also assist in discussions regarding goals of care and clinical decisions. - tells me he is okay with current medical care, aware treating UTI, does repeat himself, when discussed code status, tells me he would not want chest compressions, defibrillation, intubation or life support and if that happens to make sure he is comfortable and not in any pain. Discussed what DNRCCA-DNI, okay for ICU means here at [facility], agrees with this. Will place order in epic. Asked if he and Harshil talked about that, tells me Harshil doesn't want to talk about that aware I will call him today, thankful - only family is nephew Harshil and cousin Solange - no family at bedside, call to Harshil Murguia at [phone], did not answer times 2, voice mail box is full and cannot accept any more messages - will continue to follow for ongoing monitoring of progression of Anorexia - will continue to evaluate test results related to uti , medication effectiveness for Anorexia, response to treatment of uti -follow peripherally until get in touch with nephew, known to our service at [facility], upon dc if returns there our team can follow there as well, no true need to follow here once I talk with family Total of 60 minutes spent on this encounter including Chart review, Patient visit and exam, Documentation in EHR, Care coordination, Communicating with primary attending or other consultants, Electronic cut order hand of medications, tests or procedures, and Counseling and educating patient/family/caregive r. Discharge planning: Ready for discharge from Palliative Care perspective, outpatient/home/ECF follow-up arranged Patient meets criteria for general inpatient hospice care including the following: N/A - Palliative Care Patient Referrals to: known to ECF palliative care Discussed patient and the plan of care with the other interdisciplinary team (IDT) members of Palliative Care Team, and with Primary Attending, Patient, and Floor Nurse Insert attestation statement here if applicable (.disupervision) or (.npattest) Subjective: Hospital days prior to consult: 0 Trauma Consult: no. (If yes, please add .traumapall dotphrase for tracking purposes.) Subjective/Events Doroteo Gong is a 83 y.o. male living at [facility] for 24 hour care and supervision, PMHx includes: chronic pain, GERD, COPD, HLD, kidney stones, BPH, RICKY, interstitial lung disease, HTN, frequent UTI, prior chronic schwartz removed in February, had been recommended for cystoscopy but refused. Brought to [facility] with abdominal pain. CT A/P 04/07/24: Impression: 1. Significant nonspecific irregular bladder wall thickening, trabeculation and several diverticula. Underlying obstructive uropathy or bladder wall malignancy not excluded. There is mild distal left hydroureter. Recommend consultation with urology to determine the need for biopsy. 2. Mild nonspecific prostate enlargement with some mass effect on the bladder more inferiorly. This could be a source of obstruction. 3. Multiple hepatic cysts. Some geographic hypodensity within the left hepatic lobe more centrally thought to likely represent focal fatty infiltration. 4. Mild gaseous distention of the large bowel with suggestion of constipation along the sigmoid colon and rectum. 5. Bilateral nonobstructing renal calculi with extrarenal pelvis large in size on the right. Loose calculi within the renal pelvis on the right are at risk for obstruction and measures up to 0.4 cm on the right. Admitted with IV abx, urology consult. Since seen by palliative care at [facility] we are consulted for pain and goals of care. Patient awake in bed in NAD, did have back pain and L shoulder pain that is improved post tra (more content not included)... Normal [facility] Consult Yenifer Dc DO 04/08/2024 at 9:22 AM [facility] Urology Inpatient Consultation PATIENT NAME: Doroteo Gong DATE OF : 1940 ADMISSION DATE: 04/07/2024 4:42 AM TODAY'S DATE: 04/08/2024 Reason for Consult: Obstructive uropathy IMPRESSION: Incomplete bladder emptying Left hydroureteronephrosis Gross hematuria Bladder trabeculations, diverticula Leukocytosis PLAN Schwartz catheter position was checked by deflating the balloon and advancing and reinflating. I do believe that the catheter was not quite in the bladder all of the way as there was purulent urine drainage after repositioning Maintain catheter to drainage, he will go home with Schwartz catheter upon discharge Follow-up on cultures, adjust antibiotics as necessary He has previously declined office cystoscopy, due to age and comorbidities it is reasonable to forego cystoscopy (no shiraz hematuria at this time) He has had numerous instances of incomplete emptying, retention requiring Schwartz catheter insertion therefore I do feel that he will likely require indwelling catheter upon discharge We can follow-up in the office to discuss catheter care after he recovers from this hospitalization Thank you for this consultation and allow for participation in this patient's care. Please call /page with questions concerns or changes in patient's urologic status. To contact urology, please use On-Call Finder to locate the appropriate provider on-call Yenifer Dc DO 04/08/24 9:22 AM HISTORY OF PRESENT ILLNESS: Mr. Gong is a 83 y.o. male being seen for obstructive uropathy. Doroteo is known to urology for history of BPH, retention requiring indwelling catheter. He was last seen by Dr. Ordonez on 02/27/2024. Dr. Ordonez recommended he undergo an office cystoscopy at his next visit. Due to his age and other medical conditions he had declined further follow-up Plan as of February 2024 was to continue alfuzosin and Proscar for BPH He underwent catheter removal on 02/27/2024. At that visit he was not able to fully explain why he had a catheter. Per previous encounters and reports it appears that he has had intermittent incomplete bladder emptying with recurrent urinary tract infections. Urology was consulted yesterday 04/07/2024. I did speak with the patient's nurse and also medicine attending and explained that urology would not be able to see him on that date. We discussed placing a catheter secondary to the significant bladder distention seen on his imaging Today 04/08/2024 his white blood cell count is 20,000, up from 15,000 Creatinine is stable at 0.88 from 0.78 Urinalysis was performed which reveals turbid urine with leukocytes, Blood, bacteria and mucus, culture is currently in progress Today he reports he is having penile pain. He is having some bladder pain as well. Catheter is draining Pyridium stained urine that is also quite purulent Catheter catheter position was checked by deflating the balloon, advancing and reinflating the balloon. There was an immediate drainage of purulent urine noted Catheter was secured to the patient's left thigh so that the catheter was no longer on tension Review of Systems: Review of Systems Constitutional: Positive for activity change, appetite change and fatigue. Gastrointestinal: Negative. Genitourinary: Positive for difficulty urinating, dysuria, enuresis, frequency, hematuria and urgency. Musculoskeletal: Positive for arthralgias, back pain and gait problem. Past Medical History: Past Medical History: Diagnosis Date Arthritis knees hands Asthma Chronic pain GERD (gastroesophageal reflux disease) Hyperlipidemia Kidney stone 2013 Prostate disease Sleep apnea Thyroid disease Past Surgical History: Past Surgical History: Procedure Laterality Date APPENDECTOMY BACK SURGERY 2014 slipped disc CATARACT EXTRACTION CHOLECYSTECTOMY JOINT REPLACEMENT Right 2013 LITHOTRIPSY 3-4 times OTHER SURGICAL HISTORY hemorroid removed OTHER SURGICAL HISTORY Left 12/19/2017 stent placement, cystoscopy and pyelogram, Laser Lithotripsy SINUS SURGERY Current Medications: Current Facility-Administered Medications: acetaminophen (Tylenol) tablet 650 mg, 650 mg, Oral, q6h PRN, 650 mg at 04/07/24 1337 OR acetaminophen (Tylenol) suppository 650 mg, 650 mg, Rectal, q6h PRN, Ann-Marie Rodriguez MD albuterol 108 (90 Base) MCG/ACT inhaler 2 puff, 2 puff, Inhalation, q6h PRN, Ann-Marie Rodriguez MD artificial tears (Stye) ophthalmic ointment, , Both Eyes, PRN, Ann-Marie Rodriguez MD atorvastatin (Lipitor) tablet 10 mg, 10 mg, Oral, Nightly, Ann-Marie Rodriguez MD, 10 mg at 04/07/24 2019 cefTRIAXone (Rocephin) 1,000 mg in sodium chloride 0.9 % 50 mL IVPB Mini-Bag Plus, 1,000 mg, IntraVENous, q24h, Ann-Marie Rodriguez MD, Stopped at 04/08/24 0611 cetirizine (ZyrTEC) tablet 5 mg, 5 mg, Oral, Daily, [facility] (more content not included)... Normal [facility] Consult [facility] Wound Care CONSULT Note Doroteo Gong AGE: 83 y.o. GENDER: male : 1940 Subjective: HISTORY of PRESENT ILLNESS HPI Doroteo Gong is a 83 y.o. male who presents for a wound consult for pressure injury. HPI: Patient presented to the emergency department on 04/07 per EMS with reported history of altered mental status. Per EMS and the patient, he was sent to the emergency department because he was pressing his call light too many times at the SNF. SNF reported the patient was confused, however patient was alert and oriented x 4 for EMS with stable vital signs. Upon obtaining further history, patient states he was on his call light because he could not get comfortable and was trying to get the nurse. Reports he has been having abdominal pain since this morning. Pain is diffuse and associated with nausea but no vomiting. Urology consult pending. Patient resting in bed at time of visit. RN at bedside and assisted in turning patient for evaluation of buttocks. He has schwartz catheter. PAST MEDICAL HISTORY Active Ambulatory Problems Diagnosis Date Noted Renal calculi 09/28/2016 Hydronephrosis with ureteropelvic junction (UPJ) obstruction 09/28/2016 Flank pain 09/28/2016 Ureteral calculus 12/19/2017 Upper respiratory tract infection due to influenza A virus 06/23/2019 Acute asthma exacerbation 06/20/2019 Hypoxia 11/04/2020 Shortness of breath 10/05/2020 RICKY (obstructive sleep apnea) 11/04/2020 Class 2 obesity due to excess calories without serious comorbidity with body mass index (BMI) of 36.0 to 36.9 in adult 11/04/2020 Moderate persistent asthma without complication 11/04/2020 Oropharyngeal dysphagia 04/25/2021 Hypertrophy of prostate with urinary obstruction 08/02/2017 Fall, initial encounter 02/22/2022 UTI (urinary tract infection) 02/23/2022 Influenza A 03/21/2022 Inability to walk 02/13/2023 Debility 02/14/2023 Declining functional status 02/14/2023 History of urinary retention 02/14/2023 At risk for delirium 02/14/2023 Polypharmacy 02/14/2023 Resolved Ambulatory Problems Diagnosis Date Noted No Resolved Ambulatory Problems Past Medical History: Diagnosis Date Arthritis Asthma Chronic pain GERD (gastroesophageal reflux disease) Hyperlipidemia Kidney stone 2013 Prostate disease Sleep apnea Thyroid disease PAST SURGICAL HISTORY Past Surgical History: Procedure Laterality Date APPENDECTOMY BACK SURGERY 2014 slipped disc CATARACT EXTRACTION CHOLECYSTECTOMY JOINT REPLACEMENT Right 2014 LITHOTRIPSY 3-4 times OTHER SURGICAL HISTORY hemorroid removed OTHER SURGICAL HISTORY Left 12/19/2017 stent placement, cystoscopy and pyelogram, Laser Lithotripsy SINUS SURGERY FAMILY HISTORY Family History Problem Relation Name Age of Onset Heart failure Mother Diabetes Mother SOCIAL HISTORY Social History Tobacco Use Smoking status: Never Smokeless tobacco: Never Vaping Use Vaping status: Never Used Substance Use Topics Alcohol use: No Drug use: No ALLERGIES Allergies Allergen Reactions Allopurinol Unknown Erythromycin Unknown Penicillins Unknown Patient tolerates cephalosporins Sulfa Antibiotics Unknown Pt does not know reaction Tetracyclines & Related Unknown Levofloxacin Other jittery Omeprazole Ciprofloxacin Unknown Paroxetine Other Fatigue MEDICATIONS No current facility-administered medications on file prior to encounter. Current Outpatient Medications on File Prior to Encounter Medication Sig Dispense Refill atorvastatin (Lipitor) 10 MG tablet Take 10 mg by mouth Nightly. acetaminophen (Tylenol) 325 MG tablet Take 650 mg by mouth. albuterol 108 (90 Base) MCG/ACT inhaler Inhale 2 puffs every 6 hours as needed. alfuzosin ER (Uroxatral) 10 MG 24 hr tablet Take 1 tablet (10 mg) by mouth daily. 90 tablet 3 cyanocobalamin ([employer] Vitamin B-12) 1000 MCG tablet Take 1,000 mcg by mouth. Diclofenac Sodium (Voltaren) 1 % gel Apply topically daily. ergocalciferol (Vitamin D-2) 1.25 MG (48826 UT) capsule Take 1.25 mg by mouth daily. finasteride (Proscar) 5 MG tablet Take 1 tablet (5 mg) by mouth daily. 90 tablet 3 fluticasone (Flovent) 110 MCG/ACT inhaler Inhale 2 puffs in the morning and 2 puffs before bedtime. hydroCHLOROthiazide (HYDRODiuril) 25 MG tablet Take 25 mg by mouth every morning. ipratropium (Atrovent) 0.06 % nasal spray Administer 2 sprays into affected nostril(s). levothyroxine (Synthroid, Levoxyl) 50 MCG tablet Take 50 mcg by mouth in the morning. Lidocaine 4 % patch Place 1 patch on the skin 2 times daily. Removed at bed time loratadine (Claritin) 10 MG tablet Take 10 mg by mouth daily. magnesium hydroxide (Milk of Magnesia) 800 MG/5ML suspension Take by mouth Daily as needed for constipation. Melatonin 3-10 MG tablet Take 3 mg by mouth Nightly. nitrofurantoin, macrocrystal-monohydrat e, (Macrobid) 1 (more content not included)... Normal [facility] Laboratory - Hematology and Cell countson 04-08-2024 Lymphocytes (Bld) [#/Vol] 2 10*3/uL 1.0 - 4.3 10*3/uL [facility] Lymphocytes/100 WBC (Bld) 10 % Low 15 - 45 % [facility] Monocytes (Bld) [#/Vol] 0.8 10*3/uL 0.0 - 0.9 10*3/uL [facility] Monocytes/100 WBC (Bld) 4 % Low 5 - 13 % [facility] Neutrophils (Bld) [#/Vol] 16.8 10*3/uL High 1.8 - 7.5 10*3/uL [facility] Ovalocytes LM Ql (Bld) Slight Abnormal (none) [facility] Poikilocytosis LM Ql (Bld) Slight Abnormal (none) [facility] RBC morphology finding Nom (Bld) abnormal [facility] Segmented neutrophils/100 WBC (Bld) 84 % High 38 - 82 % [facility] Variant lymphocytes (Bld) [#/Vol] 0.4 10*3/uL High NINF - 0.0 10*3/uL [facility] Variant lymphocytes/100 WBC (Bld) 2 % High NINF - 0 % [facility] MANUAL DIFFERENTIAL (CELLAVI LATOSHA)on 04-08-2024 BAND NEUTROPHILS TOTAL PER COUNTED LEUKOCYTES BY MANUAL COUNT Normal [facility] Comment on above: Performed By: #### L [id number], [id number] ####Black Studies Professor: MAMTA BILLY ([id number])[facility] ([facility])[address] [place] [address] [place] BASOPHILS TOTAL PER COUNTED LEUKOCYTES BY MANUAL COUNT Normal [facility] Comment on above: Performed By: #### L [id number], [id number] ####Black Studies Professor: MAMTA BILLY ([id number])[facility] ([facility])[address] [place] [address] [place] BLASTS TOTAL PER COUNTED LEUKOCYTES BY MANUAL COUNT Normal [facility] Comment on above: Performed By: #### L [id number], [id number] ####Black Studies Professor: MAMTA BILLY ([id number])[facility] ([facility])[address] [place] [address] [place] EOSINOPHILS TOTAL PER COUNTED LEUKOCYTES BY MANUAL COUNT Normal [facility] Comment on above: Performed By: #### L [id number], [id number] ####Black Studies Professor: MAMTA BILLY ([id number])[facility] ([facility])[address] [place] [address] [place] LYMPHOCYTE VARIANT/100 LEUKOCYTES IN BLOOD- CELLAVISION 2 % High <=0 [facility] Comment on above: Performed By: #### L [id number], [id number] ####Black Studies Professor: MAMTA BILLY ([id number])[facility] ([facility])[address] [place] [address] [place] LYMPHOCYTES (10*3/UL) IN BLOOD-CELLAVISION 2.0 10*3/uL Normal 1.0-4.3 [facility] Comment on above: Performed By: #### L [id number], [id number] ####Black Studies Professor: MAMTA BILLY ([id number])[facility] ([facility])[address] LYMPHOCYTES TOTAL PER COUNTED LEUKOCYTES BY MANUAL COUNT 10 Normal [facility] Comment on above: Performed By: #### L [id number], [id number] ####Black Studies Professor: MAMTA ALBARRANDBERA ([id number])[facility] ([facility])[address] [place] [address] [place] LYMPHOCYTES/100 LEUKOCYTES IN BLOOD-CELLAVISION 10 % Low 15-45 [facility] Comment on above: Performed By: #### L [id number], [id number] ####Black Studies Professor: MAMTA BILLY ([id number])[facility] ([facility])[address] METAMYELOCYTES TOTAL PER COUNTED LEUKOCYTES BY MANUAL COUNT [facility] Comment on above: Performed By: #### L [id number], [id number] ####Black Studies Professor: MAMTA BILLY ([id number])[facility] ([facility])[address] [place] [address] [place] MONOCYTES (10*3/UL) IN BLOOD-CELLAVISION 0.8 10*3/uL Normal 0.0-0.9 [facility] Comment on above: Performed By: #### L [id number], [id number] ####Black Studies Professor: MAMTA BILLY ([id number])[facility] ([facility])[address] [place] [address] [place] MONOCYTES TOTAL PER COUNTED LEUKOCYTES BY MANUAL COUNT 4 [facility] Comment on above: Performed By: #### L [id number], [id number] ####Black Studies Professor: MAMTA BILLY ([id number])[facility] ([facility])[address] [place] [address] [place] MONOCYTES/100 LEUKOCYTES IN BLOOD-MELODY 4 % Low 5-13 [facility] Comment on above: Performed By: #### L [id number], [id number] ####Black Studies Professor: MAMTA BILLY ([id number])[facility] ([facility])[address] [place] [address] [place] MYELOCYTES COUNTED BY MANUAL COUNT Normal [facility] Comment on above: Performed By: #### L [id number], [id number] ####Black Studies Professor: MAMTA BILLY ([id number])[facility] ([facility])[address] [place] [address] [place] NEUTROPHILS TOTAL PER COUNTED LEUKOCYTES BY MANUAL COUNT 85 Normal [facility] Comment on above: Performed By: #### L [id number], [id number] ####Black Studies Professor: MAMTA BILLY ([id number])[facility] ([facility])[address] [place] [address] [place] OVALOCYTES PRESENCE IN BLOOD BY LIGHT MICROSCOPY Slight Abnormal (none) [facility] Comment on above: Performed By: #### L [id number], [id number] ####Black Studies Professor: MAMTA BILLY ([id number])[facility] ([facility])[address] [place] [address] [place] POIKILOCYTOSIS (PRESENCE) IN BLOOD BY LIGHT MICROSCOPY Slight Abnormal (none) [facility] Comment on above: Performed By: #### L [id number], [id number] ####Black Studies Professor: MAMTA BILLY ([id number])[facility] ([facility])[address] [place] [address] [place] PROMYELOCYTES TOTAL PER COUNTED LEUKOCYTES BY MANUAL COUNT [facility] Comment on above: Performed By: #### L [id number], [id number] ####Black Studies Professor: MAMTA BILLY ([id number])[facility] ([facility])[address] [place] [address] [place] RBC MORPHOLOGY IN BLOOD abnormal Normal [facility] Comment on above: Performed By: #### L [id number], [id number] ####Black Studies Professor: MAMTA BILLY ([id number])[facility] ([facility])[address] [place] [address] [place] SEGMENTED NEUTROPHILS (10*3/UL) IN BLOOD-CELLAVISION 16.8 10*3/uL High 1.8-7.5 [facility] Comment on above: Performed By: #### L [id number], [id number] ####Black Studies Professor: MAMTA BILLY ([id number])[facility] ([facility])[address] [place] [address] [place] SEGMENTED NEUTROPHILS/100 LEUKOCYTES-CE 84 % High 38-82 [facility] Comment on above: Performed By: #### L [id number], [id number] ####Black Studies Professor: MAMTA BILLY ([id number])[facility] ([facility])[address] UNCLASSIFIED CELLS TOTAL PER COUNTED LEUKOCYTES BY MANUAL COUNT Normal [facility] Comment on above: Performed By: #### L [id number], [id number] ####Black Studies Professor: MAMTA BILLY ([phone])[facility] ([facility])[address] VARIANT LYMPHOCYTES (10*3/UL) IN BLOOD-CELLAVISION 0.4 10*3/uL High <=0.0 [facility] Comment on above: Performed By: #### L [id number], [id number] ####Black Studies Professor: MAMTA BILLY ([phone])[facility] ([facility])[address] [place] [address] [place] VARIANT LYMPHOCYTES TOTAL PER COUNTED LEUKOCYTES BY MANUAL COUNT 2 Normal [facility] Comment on above: Performed By: #### L [id number], [id number] ####Black Studies Professor: MAMTA BILLY ([phone])[facility] ([facility])[address] No Panel Informationon 04-08 Atypical Lymphocytes Manual 2 [facility] Bands Manual [facility] Basophils Manual [facility] Blasts [facility] Eosinophils Manual [facility] Lymphocytes Manual 10 [facility] Metamyelocytes Manual [facility] Monocytes Manual 4 [facility] Myelocytes Manual [facility] H ealth Neutrophils Manual 85 [facility] Promyelocytes Manual [facility] Unclassified Cells, Manual [facility] No Panel InformationOrdered By: Valery Claros on 04-08-2024 Interpretation and review of laboratory results Abnormal [facility] XR Chest 2 Viewson Limited examination. No consolidation. No large pleural effusion. Report Dictated on Electronically Signed By: Roger Cervantes MD Electronically Signed Date/Time: 04/08/2024 8:04 PM EST [facility] Patient Name: DOROTEO GNOG : 1940 Exam Date/Time: 04/08/2024 15:01 Procedure: XR CHEST 2 VIEWS Ordering Provider: RODRIGUEZ PADMAJA Reason For Exam: COUGH AND NASAL CONGESTION CHEST: CLINICAL INDICATION: Cough and congestion TECHNIQUE: PA and Lateral COMPARISON: 02/12/[address] abdomen pelvis from one day ago FINDINGS: Lateral view is limited due to underpenetration.The heart is normal in size. There is atherosclerotic calcification and tortuosity of the thoracic aorta. No consolidation or atelectasis clearly identified. Evaluate for pleural effusion is limited on the lateral view. Degenerative change of the thoracic spine is noted. [facility] Roger Cervantes MD - 04/08/2024 Patient Name: DOROTEO GONG : 1940 Exam Date/Time: 04/08/2024 15:01 Procedure: XR CHEST 2 VIEWS Ordering Provider: RODRIGUEZ PADMAJA Reason For Exam: COUGH AND NASAL CONGESTION CHEST: CLINICAL INDICATION: Cough and congestion TECHNIQUE: PA and Lateral COMPARISON: 02/12/[address] abdomen pelvis from one day ago FINDINGS: Lateral view is limited due to underpenetration.The heart is normal in size. There is atherosclerotic calcification and tortuosity of the thoracic aorta. No consolidation or atelectasis clearly identified. Evaluate for pleural effusion is limited on the lateral view. Degenerative change of the thoracic spine is noted. IMPRESSION: Limited examination. No consolidation. No large pleural effusion. Report Dictated on Electronically Signed By: Roger Cervantes MD Electronically Signed Date/Time: 04/08/2024 8:04 PM EST [facility] Radiology Study observation (narrative) [facility]th XR Chest 2 ViewsOrdered By: Rgoer Cervantes on 04-08-2024 [facility] [employer] Work Phone: 30on 04-07-2024 30 Problem: Pain - Adul t Goal: Verbalizes/displays adequate comfort level or baseline comfort level Outcome: Progressing met Flowsheets (Taken 04/07/20241842) Verbalizes/displays adequate comfort level or baseline comfort level: Encourage patient to monitor pain and request assistance Assess pain using appropriate pain scale Problem: Safety - Adult Goal: Free from fall injury Outcome: Progressing met Flowsheets (Taken 04/07/20241842) Free from fall injury: Instruct family/caregiver on patient safety Based on caregiver fall risk screen, instruct family/caregiver to ask for assistance with transferring infant if caregiver noted to have fall risk factors Normal [facility] BLOOD CULTUREon 04-07-2024 Bacteria identified Cx Nom (Bld) BLOOD CULTURE Reference No growth at 5 days ORDER COMMENTS: Blood Collection Site: Right Forearm [ S = SUSCEPTIBLE R = RESISTANT I = INTERMEDIATE S-DD = Susceptible-dose dependent NS = Non-susceptible NO = No Interpretation ] Normal [facility] Comment on above: Performed By: #### L [id number] ####Black Studies Professor: IZZY LIZ ([phone])[address] Bacteria identified Cx Nom (Bld) BLOOD CULTURE Reference No growth at 5 days ORDER COMMENTS: Blood Collection Site: Left Forearm [ S = SUSCEPTIBLE R = RESISTANT I = INTERMEDIATE S-DD = Susceptible-dose dependent NS = Non-susceptible NO = No Interpretation ] Normal [facility] Comment on above: Performed By: #### L [id number] ####Black Studies Professor: IZZY LIZ ([phone])[facility] (SACLAB)[address] [place] [address] CBC W Auto Differential pane l (Bld)on 04-07-2024 Basophils (Bld) [#/Vol] 0 10*3/uL 0.0 - 0.2 10*3/uL [facility] Basophils/100 WBC (Bld) 0.3 % 0.0 - 2.0 % [facility] Eosinophils (Bld) [#/Vol] 0.2 10*3/uL 0.0 - 0.5 10*3/uL [facility] Eosinophils/100 WBC (Bld) 1 % 0.0 - 6.0 % [facility] Erythrocyte distribution width (RBC) [Ratio] 13.6 % 11.5 - 15.0 % [facility] Hematocrit (Bld) [Volume fraction] 37.5 % Low 40.0 - 52.0 % [facility] Hemoglobin (Bld) [Mass/Vol] 12.9 g/dL Low 13.0 - 18.0 g/dL [facility] Immature granulocytes (Bld) [#/Vol] 0.1 10*3/uL High NINF - 0.1 10*3/uL [facility] Immature granulocytes/100 WBC (Bld) 0.5 % 0.0 - 2.0 % [facility] Interpretation and review of laboratory results Abnormal [facility] Lymphocytes (Bld) [#/Vol] 2 10*3/uL 1.0 - 4.3 10*3/uL [facility] Lymphocytes/100 WBC (Bld) 13.1 % Low 15.0 - 45.0 % [facility] MCH (RBC) [Entitic mass] 29 pg 26. 0 - 34.0 pg [facility] MCHC (RBC) [Mass/Vol] 34.4 % 30.5 - 36.0 % [facility] MCV (RBC) [Entitic vol] 84.3 fL 77.0 - 99.0 fL [facility] Monocytes (Bld) [#/Vol] 1.4 10*3/uL High 0.0 - 0.9 10*3/uL [facility] Monocytes/100 WBC (Bld) 9.1 % 5.0 - 13.0 % [facility] Neutrophils (Bld) [#/Vol] 11.7 10*3/uL High 1.8 - 7.5 10*3/uL [facility] Neutrophils/100 WBC (Bld) 76 % 38.0 - 82.0 % [facility] Nucleated RBC/100 WBC (Bld) [Ratio] 0 % [facility] Platelet mean volume (Bld) [Entitic vol] 9.6 fL 9.0 - 12.7 fL [facility] Comment on above: MPV is a calculated measurement using platelet volume ratio Platelets (Bld) [#/Vol] 552 10*3/uL High 140 - 440 10*3/uL [facility] RBC (Bld) [#/Vol] 4.45 10*6/uL 4.40 - 5.9 0 10*6/uL [facility] WBC (Bld) [#/Vol] 15.4 10*3/uL High 3.6 - 10.7 10*3/uL [facility] CBC WITH AUTO DIFFERENTIALon 04-07-2024 Basophils (Bld) [#/Vol] 0.0 10*3/uL Normal 0.0-0.2 [facility] Comment on above: Performed By: #### L [id number] ####Black Studies Professor: IZZY LIZ ([id number])[facility] (SWRLAB)[address] [place] [address] [place] Basophils/100 WBC (Bld) 0.3 % Normal 0.0-2.0 S [facility] Comment on above: Performed By: #### L [id number] ####Black Studies Professor: IZZY LIZ ([phone])[facility] CALLESILYA [facility] (SWRLAB)[address] [place] [address] [place] Eosinophils (Bld) [#/Vol] 0.2 10*3/uL Normal 0.0-0.5 [facility] Comment on above: Performed By: #### L [id number] ####Black Studies Professor: IZZY LIZ ([id number])[facility] ZAVALAILYA [place] (SWRLAB)[address] [place] [address] [place] Eosinophils/100 WBC (Bld) 1.0 % Normal 0.0-6.0 [facility] Comment on above: Performed By: #### L [id number] ####Black Studies Professor: IZZY LIZ ([phone])MIGUELINA CARABALLO [facility] (SWRLAB)[address] [place] [address] Erythrocyte distribution width (RBC) [Ratio] 13.6 % Normal 11.5-15.0 [facility] Comment on above: Performed By: #### L [id number] ####Black Studies Professor: IZZY LIZ ([id number])[facility] CARABALLO [facility] (SWRLAB)[address] [place] [address] Hematocrit (Bld) [Volume fraction] 37.5 % Low 40.0-52.0 [facility] Comment on above: Performed By: #### L [id number] ####Black Studies Professor: IZZY LIZ ([id number])[facility]O [facility] (SWRLAB)[address] [place] [address] Hemoglobin (Bld) [Mass/Vol] 12.9 g/dL Low 13.0-18.0 [facility] Comment on above: Performed By: #### L [id number] ####Black Studies Professor: IZZY LIZ ([id number])[facility]IGUELINA CAR[facility]ALLO [facility] (SWRLAB)[address] [place] [address] IMMATURE GRANS % 0.5 % Normal 0.0-2.0 [facility] Comment on above: Performed By: #### L [id number] ####Black Studies Professor: IZZY LIZ ([id number])[facility] [place]ALLO [facility] (SWRLAB)[address] [place] [address] IMMATURE GRANS ABSOLUTE 0.1 10*3/uL High <0.1 [facility] Comment on above: Performed By: #### L [id number] ####Black Studies Professor: IZZY LIZ ([id number])[facility] (SWRLAB)[address] [place] [address] Lymphocytes (Bld) [#/Vol] 2.0 10*3/uL Normal 1.0-4.3 [facility] Comment on above: Performed By: #### L [id number] ####Black Studies Professor: IZZY LIZ ([id number])MIGUELINA CARABALLO [facility] (SWRLAB)[address] [place] [address] [place] Lymphocytes/100 WBC (Bld) 13.1 % Low 15.0-45.0 [facility] Comment on above: Performed By: #### L [id number] ####Black Studies Professor: IZZY LIZ ([id number])[facility] CARABALLO [facility] (SWRLAB)[address] [place] [address] MCH (RBC) [Entitic mass] 29.0 pg Normal 26.0-34.0 [facility] Comment on above: Performed By: #### L [id number] ####Black Studies Professor: IZZY LIZ ([id number])[facility] [place]O [facility] (SWRLAB)[address] [place] [address] MCHC 34.4 % Normal 30.5-36.0 [facility] Comment on above: Performed By: #### L [id number] ####Black Studies Professor: IZZY LIZ ([id number])[facility] CARABALLO [facility] (SWRLAB)[address] [place] [address] MCV (RBC) [Entitic vol] 84.3 fL Normal 77.0-99.0 S [facility] Comment on above: Performed By: #### L [id number] ####Black Studies Professor: IZZY LIZ ([phone])[facility] [place] (SWRLAB)[address] [place] [address] [place] Monocytes (Bld) [#/Vol] 1.4 10*3/uL High 0.0-0.9 [facility] Comment on above: Performed By: #### L [id number] ####Black Studies Professor: IZZY LIZ ([id number])[facility] [place]ALLO [facility] (SWRLAB)[address] [place] [address] [place] Monocytes/100 WBC (Bld) 9.1 % Normal 5.0-13.0 S [facility] Comment on above: Performed By: #### L [id number] ####Black Studies Professor: IZZY LIZ ([id number])MIGUELINA CARABALLO [facility] (SWRLAB)[address] [place] [address] NEUTROPHILS ABSOLUTE 11.7 10*3/uL High 1.8-7.5 [facility] Comment on above: Performed By: #### L [id number] ####Black Studies Professor: IZZY LIZ ([id number])[facility] CARABALLO [facility] (SWRLAB)[address] [place] [address] Neutrophils/100 WBC (Bld) 76.0 % Normal 38.0-82.0 [facility] Comment on above: Performed By: #### L [id number] ####Black Studies Professor: IZZY LIZ ([id number])[facility] [place] (SWRLAB)[address] [place] [address] NRBC 0.0 /100 WBCs Normal 0.0-2.0 [facility] Comment on above: Performed By: #### L [id number] ####Black Studies Professor: IZZY LIZ ([id number])[facility] [place] (SWRL[facility])[address] [place] [address] Platelet mean volume (Bld) [Entitic vol] 9.6 fL Normal 9.0-12.7 [facility] Comment on above: Result Comment: MPV is a calculated measurement using platelet volume ratio Performed By: #### L [id number] ####Black Studies Professor: IZZY LIZ ([id number])[facility] (SWRL[facility])[address] [place] [address] [place] Platelets (Bld) [#/Vol] 552 10*3/uL High 140-440 [facility] Comment on above: Performed By: #### L [id number] ####Black Studies Professor: IZZY LIZ ([id number])[facility] [place] (SWRLAB)[address] RBC (Bld) [#/Vol] 4.45 10*6/uL Normal 4.40-5.90 [facility] Comment on above: Performed By: #### L [id number] ####Black Studies Professor: IZZY LIZ ([id number])[facility] (SWRL[facility])[address] [place] [address] WBC (Bld) [#/Vol] 15.4 10*3/uL High 3.6-10.7 [facility] Comment on above: Performed By: #### L [id number] ####Black Studies Professor: IZZY LIZ ([id number])[facility] (SWRLAB)[address] [place] [address] COMPLETE URINALYSISon 2023 BACTERIA (#/HPF) IN URINE Many Abnormal Negative [facility] Comment on above: Performed By: #### L [id number] ####Black Studies Professor: IZZY LIZ ([id number])[facility] (SAC[facility])[address] [place] [address] [place]#### [id number] ####Black Studies Professor: IZZY LIZ ([id number])[facility] (SWRLAB)[address] [place] [address] BILIRUBIN, TOTAL PRESENCE IN URINE Negative Normal Negative [facility] Comment on above: Performed By: #### L [id number] ####Black Studies Professor: IZZY LIZ ([id number])[facility] ([facility])[address] [place] [address] [place]#### [id number] ####Black Studies Professor: IZZY LIZ ([id number])[facility] PAETTMAN (SWRLAB)[address] [place] [address] Clarity (U) Extra Turbid Abnormal Clear [facility] Comment on above: Performed By: #### L [id number] ####Black Studies Professor: IZZY LIZ ([id number])[facility] ([facility])[address] [place] [address] [place]#### [id number] ####Black Studies Professor: IZZY LIZ ([id number])[facility] PATETMAN (SWRLAB)[address] [place] [address] Color (U) Dark Yellow Abnormal Lt. Yellow [facility] Comment on above: Performed By: #### L [id number] ####Black Studies Professor: IZZY LIZ ([id number])[facility] ([facility]AC[facility])[address] [place] [address]#### [id number] ####Black Studies Professor: IZZY LIZ ([id number])[facility] ILYA PATETMAN (SWRLAB)[address] [place] [address] GLUCOSE (MG/DL) IN URINE Normal Normal Nor mal (<70) [facility] Comment on above: Performed By: #### L [id number] ####Black Studies Professor: IZZY LIZ ([id number])[facility] ([facility])[address] [place] [address]#### [id number] ####Black Studies Professor: IZZY LIZ ([phone])[facility] ILYA PATETMAN (SWRLAB)[address] [place] [address] HEMOGLOBIN PRESENCE IN URINE 0.03 mg/dL Abnormal Negative [facility] Comment on above: Performed By: #### L [id number] ####Black Studies Professor: IZZY LIZ ([id number])[facility] ([facility])[address] [place] [address] [place]#### [id number] ####Black Studies Professor: IZZY LIZ ([id number])[facility] ILYA PATETMAN (SWRLAB)[address] [place] [address] Ketones Ql (U) Trace Abnormal Negative [facility] Comment on above: Performed By: #### L [id number] ####Black Studies Professor: IZZY LIZ ([id number])[facility] ([facility])[address] [place] [address] [place]#### [id number] ####Black Studies Professor: IZZY LIZ ([id number])[facility] IL[facility] (SWRLAB)[address] [place] [address] LEUKOCYTE ESTERASE PRESENCE IN URINE BY TEST STRIP 500 Pennie/uL Abnormal Negative [facility] Comment on above: Performed By: #### L [id number] ####Black Studies Professor: IZZY LIZ ([id number])[facility] ([facility])[address] [place] [address]#### [id number] ####Black Studies Professor: IZZY LIZ ([id number])[facility] ([facility])[address] [place] [address] MUCUS (#/LPF) IN URINE SEDIMENT Moderate Abnormal Negative [facility] Comment on above: Performed By: #### L [id number] ####Black Studies Professor: IZZY LIZ ([id number])[facility] ([facility])[address] [place] [address]#### [id number] ####Black Studies Professor: IZZY LIZ ([id number])[facility] ([facility]RL[facility])[address] [place] [address] NITRITE PRESENCE IN URINE Negative Normal Negative [facility] Comment on above: Performed By: #### L [id number] ####Black Studies Professor: IZZY LIZ ([id number])[facility] ([facility])[address] [place] [address]#### [id number] ####Black Studies Professor: IZZY LIZ ([phone])[facility] ILYA RITTMAN (SWRLAB)[address] [place] [address] pH (U) 7.5 [pH] Normal 5.0-8.0 [facility] Comment on above: Performed By: #### L [id number] ####Black Studies Professor: IZZY LIZ ([id number])[facility] ([facility])[address] [place] [address]#### [id number] ####Black Studies Professor: IZZY LIZ ([id number])[facility] (SWRL[facility])[address] Protein (U) [Mass/Vol] 200 mg/dL Abnormal Negative [facility] Comment on above: Performed By: #### L [id number] ####Black Studies Professor: IZZY LIZ ([id number])[facility] ([facility])[address] [place] [address]#### [id number] ####Black Studies Professor: IZZY LIZ ([id number])[facility] ILYA [facility]OT[facility] (SWRLAB)[address] [place] [address] RBC (#/HPF) IN URINE SEDIMENT 0-2 Normal 0-2 [facility] Comment on above: Performed By: #### L [id number] ####Black Studies Professor: IZZY LIZ ([id number])[facility] ([facility])[address] [place] [address]#### [id number] ####Black Studies Professor: IZZY LIZ ([id number])[facility] ILYA [facility] (SWRLAB)[address] [place] [address] Specific gravity (U) [Rel density] 1.017 Normal 1.005-1.030 [facility] Comment on above: Performed By: #### L [id number] ####Black Studies Professor: IZZY LIZ ([id number])[facility] ([facility])[address] [place] [address]#### [id number] ####Black Studies Professor: IZZY LIZ ([id number])[facility] (SWRLAB)[address] [place] [address] Specimen volume (U) 12 mL Normal [facility] Comment on above: Performed By: #### L [id number] ####Black Studies Professor: IZZY LIZ ([id number])[facility] ([facility])[address] [place] [address] [place]#### [id number] ####Black Studies Professor: IZZY LIZ ([id number])[facility] ZAVALAILYA R[facility]TMAN (SWRLAB)[address] SQUAMOUS EPITHELIAL CELLS (#/HPF) IN URINE SEDIMENT 0-2 Normal 3-5 [facility] Comment on above: Performed By: #### L [id number] ####Black Studies Professor: IZZY LIZ ([id number])[facility] ([facility])[address] [place] [address]#### [id number] ####Black Studies Professor: IZZY LIZ ([id number])[facility] ILYA [facility]AN (SWRLAB)[address] [place] [address] UROBILINOGEN (MG/DL) IN URINE 3 mg/dL Abnormal Normal (0-1) [facility] Comment on above: Performed By: #### L [id number] ####Black Studies Professor: IZZY LIZ ([id number])[facility] ([facility])[address] [place] [address]#### [id number] ####Black Studies Professor: IZZY LIZ ([id number])[facility] ILYA [facility] (SWRLAB)[address] [place] [address] WBC (LEUKOCYTE) (#/HPF) IN URINE SEDIMENT >100 Abnormal 0-5 [facility] Comment on above: Performed By: #### L [id number] ####Black Studies Professor: IZZY LIZ ([id number])[facility] ([facility])[address] [place] [address]#### [id number] ####Black Studies Professor: IZZY LIZ ([id number])[facility] IL[facility] (SWRLAB)[address] [place] [address] COMPREHENSIVE METABOLIC PANE Khris 04-07-2024 Albumin [Mass/Vol] 2.6 g/dL Low 3.4-4.8 [facility] Comment on above: Performed By: #### L AB99, LAB17 ####Black Studies Professor: IZZY LIZ ([id number])[facility] ILYA [facility]TMAN (SWRLAB)[address] [place] [address] [place] ALP [Catalytic activity/Vol] 103 U/L Normal 40-150 [facility] Comment on above: Performed By: #### L AB99, LAB17 ####Black Studies Professor: IZZY LIZ ([id number])[facility] CARABALLO RITTMAN (SWRLAB)[address] [place] [address] [place] ALT [Catalytic activity/Vol] 6 U/L Normal <40 [facility] Comment on above: Performed By: #### L AB99, LAB17 ####Black Studies Professor: IZZY LIZ ([id number])[facility] CARABALLO R[facility]TM[facility] (SWRLAB)[address] Anion gap [Moles/Vol] 11 mmol/L Normal 3-13 [facility] Comment on above: Performed By: #### L 99, LAB17 ####Black Studies Professor: IZZY LIZ ([phone])[facility] CARABALLO R[facility]TMAN (SWRLAB)[address] [place] [address] [place] AST [Catalytic activity/Vol] 28 U/L Normal <34 [facility] Comment on above: Performed By: #### L AB99, LAB17 ####Black Studies Professor: IZZY LIZ ([id number])[facility] CARABALLO RITTMAN (SWRLAB)[address] [place] [address] [place] Bilirubin [Mass/Vol] 0.6 mg/dL Normal <1.2 [facility] Comment on above: Performed By: #### L AB99, LAB17 ####Black Studies Professor: IZZY LIZ ([id number])[facility] CARABALLO RITTMAN (SWRLAB)[address] [place] [address] [place] Calcium [Mass/Vol] 9.6 mg/dL Normal 8.8-10.0 [facility] Comment on above: Performed By: #### L AB99, LAB17 ####Black Studies Professor: IZZY LIZ ([id number])[facility] ZAVALAILYA RITTMAN (SWRLAB)[address] [place] [address] [place] Chloride [Moles/Vol] 96 mmol/L Low 98-107 [facility] Comment on above: Performed By: #### L 99, LAB17 ####Black Studies Professor: IZZY LIZ ([id number])[facility] CARABALLO RITTMAN (SWRLAB)[address] [place] [address] [place] CO2 [Moles/Vol] 23 mmol/L Normal 23-31 [facility] Comment on above: Performed By: #### L DEBI, LAB17 ####Black Studies Professor: IZZY LIZ ([id number])[facility] CARABALLO RITTMAN (SWRLAB)[address] [place] [address] [place] Creatinine [Mass/Vol] 0.78 mg/dL Normal 0.72-1.25 [facility] Comment on above: Performed By: #### Louisa CARRERA, LAB17 ####Black Studies Professor: IZZY LIZ ([id number])[facility] [address] [employer] (SWRLAB)[address] [place] [address] [place] GLOMERULAR FILTRATION RATE ML/MIN/1.73 SQ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 Discussion participants: pt and provider Interventions reviewed: CPR and life supports Advance Care Planning Documents: Healthcare Power of Aqua Ammonia Operator: Yes Financial Power of Aqua Ammonia Operator: No Living Will: Yes Code Status: Full Code 15 minutes of this encounter was spent in discussion of goals and coordination of care as documented above. Past Medical History: Diagnosis Date Arthritis knees hands Asthma Chronic pain GERD (gastroesophageal reflux disease) Hyperlipidemia Kidney stone 2012 Prostate disease Sleep apnea Thyroid disease Past Surgical History: Procedure Laterality Date APPENDECTOMY BACK SURGERY 2014 slipped disc CATARACT EXTRACTION CHOLECYSTECTOMY JOINT REPLACEMENT Right 2014 LITHOTRIPSY 3-4 times OTHER SURGICAL HISTORY hemorroid removed OTHER SURGICAL HISTORY Left 12/19/2017 stent placement, cystoscopy and pyelogram, Laser Lithotripsy SINUS SURGERY Family History Problem Relation Name Age of Onset Heart failure Mother Diabetes Mother Social History Tobacco Use Smoking status: Never Smokeless tobacco: Never Vaping Use Vaping Use: Never used Substance Use Topics Alcohol use: No Drug use: No Outpatient Med (more content not included)... Normal [facility] 36on 07-03-2023 36 Pt lvm wanting d/t/l of appt. I called the pt and the voice mail box was full, so unable to lvm Normal [facility] Progress Noteon 05-31-2023 Progress Note [facility] Palliative Care Site of Care: [facility] Chief Complaint: Doroteo Gong is a 82 y.o. male with chief complaint of No chief complaint on file.. Assessment/Plan Goals of care Pt is alert and oriented x3 Introduced myself and my role in his care. Explained palliative medicine and how we help with goals and symptoms of chronic disease Full code - did explain to him what a full code is and the potential complications that can arise with the use of CPR. He verbalizes understanding and wishes to remain a full code Goals - he would like to look into getting back home with care givers coming to his home. He is a vet - I will ask SW if he is connected to receive benefits. Left knee pain Using tylenol and tramadol Finds good relief with the current regimen Working with PT/OT 2x week to regain strength Anxiety Is worried he will not get back to him home He understands he would need a caregiver to help him with his needs in the home Reports is a vet but uncertain if he is connected. Will ask SW to look into this. He has a nephew as his only relative - he lives in [place] [facility] At risk for constipation Debility and use of pain medication Miralax po q day prn available to him Debility Working with PT/OT few times a week Sitting in wheelchair Transfers with a 1 assist Discussed the plan of care including addressing questions and concerns with patient 70 minutes in counseling and coordination of care at the bedside regarding goals of care, symptom management, and see above. Follow-up: 6-8 weeks I have discussed the patient's case and plan of care with my collaborating physician Dr. Thomas. Subjective: HPI: 82 year old male in [facility] for therapy seen today in his room. He is sitting up to the wheelchair just finishing his breakfast. He has eaten 90% of meal and drank 100% fluids. I introduced myself and my role in his care. I have explained palliative medicine and the reason for this consult. He shared his knee pains that he has been dealing with for years now. He stated the tylenol and tramadol are effective pain control for him. He reports good bowel movements but will have intermittent constipation. Uses OTC Miralax. He shared his anxiety regarding getting back to his home. He is worried and tells me he looses sleep over not being able to return. He stated he is a vet - unsure if he is connected or not. Will ask SW for help on this to see if there is a plan for him to be able to return home. He is willing to have caregivers come into his home - also uncertain what the finances look like should he require caregiver supports for more than a few hours a day. He does have 1 nephew but he lives in [place] [facility] and not able to live up here with him per pt. I will reach to him to seek more information. He has no sob with talking - currently does not have O2 on and saturating 98%. Appetite is good - had slept well at home but worries a lot here and has not had good sleep. Message left for Harshil pts nephew. Pain Assessment (If Pain Scale >0) Description: aching Nonverbal patients: Grimacing Duration: year(s) Frequency:Daily and Irregularly Location: left knee Alleviating Factors: pain medication Exacerbating Factors: unable to associate with any factor Effect:Interference with Activities Current Symptom Management Medications: tramadol Non-Opiate Adjuvants: Tylenol Non-Medication Treatments: Physical Therapy Previous Medications Trialed: Referrals/Second Opinions if >50 MED: Patient recently discharged from: N/A Nutrition: Weight stable and Good appetite Functional Status: Dependent for ADLs Falls: No Current Interventions: PT and OT Current Assistive Devices: w/c and walker ROS: See palliative care ROS/ESAS below, all other ROS are negative except as noted. Arabi Symptom Assessment Score Arabi Score Pain Score 3 Tiredness Score 0 Nausea Score 0 Depression Score 0 Anxiety Score 1-2 Drowsiness Score 0 Anorexia Score (0= eating well,10= not eating) 0 Wellbeing Score (10= worst sense of well-being) 0 Constipation 0 Dyspnea Score (0= no shortness of breath) 0 Assessed By: patient Goals of care Goals of care: return home with caregiver help, continue current medical tx Code status: full code Advance directives: Health Care Proxy Surrogate: Extended Family Prognosis: unknown Spiritual assessment: No spiritual distress identified Bereavement and grief: Grief Issues Not Identified Social history: Marital status: single, never Children: 0 Living status: alone Work history: worked in a [employer] status: 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 Discussion participants (more content not included)... Normal [facility] Office Visiton 05-21-2023 Follow-up visit [id number] Crystal Gong is Nurys 1940 M Date Provider Department Center 05/21/2023 [id number] None Family History Problem Relation Age of Onset Heart failure Mother Diabetes Mother Family Status - Relation Status Age at Mother Level of Service:[id number] ID OFFICE/OUTPATIENT ESTABLISHED MOD MDM 30 MIN Reason for Visit and Comments: Follow-up [280839] Sleep Apnea [348] Asthma [148] - RICKY Sx -Clearance For Knee Replacement [facility] PATINSon 05-21-2023 PATINS YOUR APPOINTMENT TOJey CASTRO WAS WITH THE [facility] LUNG NODULE CLINIC, COPD CLINIC, PULMONARY AND SLEEP MEDICINE OFFICE. PLEASE CALL OUR OFFICE AT [phone] for our [place] office location or [phone] for our [place] location, IF YOU HAVE NOT RECEIVED YOUR TEST RESULTS 7 DAYS AFTER TESTING IS COMPLETED. PLEASE REMEMBER TO REQUEST REFILLS AT YOUR OFFICE VISITS. PHONE/FAX REQUESTS REQUIRE 48-72 HOURS FOR RESPONSE. A FRIENDLY REMINDER COPAYS ARE DUE AT TIME OF SERVICE. THANK YOU. Our Patients Are Important! We want to improve and you can help. After your visit we want you to feel: Listened to, Respected and have your health care explained. You may receive a survey asking you about your visit. Please complete the survey. We will use your feedback to make improvements. COVID-19 VACCINATION INFORMATION: PH. [phone] [email or web address] VACCINE [facility] Central Scheduling [phone] [facility] Sleep Scheduling [phone] Normal [facility] Progress Noteon 05-21-2023 Progress Note [facility] Pulmonary Medicine [address] [facility] [address] Dept: [phone] Dept Loc: [phone] Date of Service: 05/21/2023 Visit type: An Established patient Chief Complaint/Reason for Referral: Surgery clearance SUBJECTIVE History of Present Illness: Doroteo Gong ( 1940) is a 82 y.o. male patient, with significant PMH of COPD with asthma, obstructive sleep apnea (intolerant of PAP), nocturnal oxygen, pulmonary hypertension, interstitial lung disease, and GERD, being seen for surgery clearance. Doroteo reports he is seeking surgical clearance to undergo knee replacement surgery. He says he has not yet seen his surgeon, but will be seeing Dr. Leigh later this week to discuss his wishes to pursue surgery for left knee replacement. He reports his dyspnea has been stable. Does have some nasal drainage, but denies SOB. Reports he had COVID -19 in the nursing facility about 1-2 months ago, but symptoms were managed outpatient. Functional ability is limited, he says he has been pretty confined to a wheelchair for the last 3 years due to hip and knee issues. Transfers in and out of the wheel chair are difficult. He reports he currently takes Flovent BID as needed, and usually uses albuterol BID which he feels does help his breathing. He is intolerant of PAP therapy, so he uses supplemental O2 while asleep currently. He was previously referred to cardiology during his last OV, but he has not yet been seen. OBJECTIVE MEDICAL HISTORY: Past Medical History: Diagnosis Date Arthritis knees hands Asthma Chronic pain GERD (gastroesophageal reflux disease) Hyperlipidemia Kidney stone 2012 Prostate disease Sleep apnea Thyroid disease SURGICAL HISTORY: Past Surgical History: Procedure Laterality Date APPENDECTOMY BACK SURGERY 2014 slipped disc CATARACT EXTRACTION CHOLECYSTECTOMY JOINT REPLACEMENT Right 2014 LITHOTRIPSY 3-4 times OTHER SURGICAL HISTORY hemorroid removed OTHER SURGICAL HISTORY Left 12/19/2017 stent placement, cystoscopy and pyelogram, Laser Lithotripsy SINUS SURGERY ALLERGIES: Allergies Allergen Reactions Allopurinol Unknown Erythromycin Unknown Penicillins Unknown Patient tolerates cephalosporins Sulfa Antibiotics Unknown Pt does not know reaction Tetracyclines & Related Unknown Levofloxacin Other jittery Ciprofloxacin Unknown Paroxetine Other Fatigue MEDICATIONS: Current Outpatient Medications: acetaminophen (Tylenol) 325 MG tablet, Take 650 mg by mouth., Disp: , Rfl: albuterol 108 (90 Base) MCG/ACT inhaler, Inhale 2 puffs every 6 hours as needed., Disp: , Rfl: alfuzosin ER (Uroxatral) 10 MG 24 hr tablet, Take 1 tablet (10 mg) by mouth daily., Disp: 90 tablet, Rfl: 3 atorvastatin (Lipitor) 10 MG tablet, Take 10 mg by mouth daily., Disp: , Rfl: carboxymethylcellulose (Refresh Plus) 0.5 % ophthalmic solution, Administer 1 drop into both eyes if needed for dry eyes., Disp: , Rfl: cyanocobalamin ([employer] Vitamin B-12) 1000 MCG tablet, Take 1,000 mcg by mouth., Disp: , Rfl: escitalopram (Lexapro) 10 MG tablet, Take 10 mg by mouth daily., Disp: , Rfl: finasteride (Proscar) 5 MG tablet, Take 1 tablet (5 mg) by mouth daily., Disp: 90 tablet, Rfl: 3 hydroCHLOROthiazide (HYDRODiuril) 25 MG tablet, Take 25 mg by mouth every morning., Disp: , Rfl: ipratropium (Atrovent) 0.06 % nasal spray, Administer 2 sprays into affected nostril(s)., Disp: , Rfl: levothyroxine (Synthroid, Levoxyl) 50 MCG tablet, Take 50 mcg by mouth in the morning., Disp: , Rfl: magnesium hydroxide (Milk of Magnesia) 800 MG/5ML suspension, Take by mouth Daily as needed for constipation., Disp: , Rfl: omeprazole (PriLOSEC) [address] capsule, Take 20 mg by mouth in the morning., Disp: , Rfl: ondansetron ODT (Zofran-ODT) 4 MG disintegrating tablet, Take 4 mg by mouth every 8 hours as needed for nausea or vomiting., Disp: , Rfl: polyethylene glycol, PEG, 3350 (Glycolax) 17 GM/SCOOP powder, Take by mouth., Disp: , Rfl: simvastatin (Zocor) 20 MG tablet, Take 20 mg by mouth in the morning., Disp: , Rfl: fluticasone (Flovent) 110 MCG/ACT inhaler, Inhale 2 puffs in the morning and 2 puffs before bedtime., Disp: , Rfl: SOCIAL HISTORY: Social History Tobacco Use Smoking status: Never Smokeless tobacco: Never Substance Use Topics Alcohol use: No FAMILY HISTORY: Family History Problem Relation Name Age of Onset Heart failure Mother Diabetes Mother REVIEW OF SYSTEMS: Review of Systems Constitutional: Positive for activity change and fatigue. HENT: Positive for congestion. Nasal congestion Respiratory: Positive for shortness of breath. Negative for cough, chest tightness and wheezing. Cardiovascular: Positive for leg swelling. Negative for chest pain. Musculoskeletal: Positive for arthralgias, back pain and gait problem. Negative for myalgias. Skin: Negative fo (more content not included)... Normal [facility] 36on 05-11-2023 36 Yasemin with [facility] facility states the patient received a letter from us asking for him to call and schedule an appointment to be seen. Pt is scheduled for 08/06/23 for 6 mos follow up appt. Reconfirmed the appt d/t/l. Yasemin indicated the pt is doing well and didn't need to be seen any time sooner. [facility] DOROTEO GONG ([id number]) 1940 M Date Time Provider Department 04/03/23 ROOPA MADERA [facility] During your visit today, we recorded the following information about you: Kalyani Silveira 04/03/2023 3:47 PM Signed Harshil carr nephew called today. [phone] Reason for call: patient is in the [facility] and feels he is getting pneum. The nephew told him he would call and see if you can call anything in or if you could call him [phone]. They dont have a doctor on staff and one only comes around once in a while. Patient: Doroteo Gong Date of : 1940 (home) ALLERGIES Allergen Reactions Allopurinol Unknown Doxycycline Unknown Erythromycin Unknown Minocycline Unknown Penicillins Unknown Sulfacetamide Unknown Tetracycline Unknown Levaquin [Levofloxa* Other: See Comments jittery Zocor [Simvastatin] Rash, Itching Ciprofloxacin Unknown Paxil [Paroxetine] Other: See Comments Fatigue Sulfa (Sulfonamide * Unknown Last Office Visit Date: 10/23/2022 Last [facility] Visit: Visit date not found Future Appointment: Visit date not found The patients preferred pharmacy has been captured for this encounter? not asked Roopa Márquez MD 04/03/2023 4:14 PM Signed Attempted to call both numbers and got voicemail. Left voice messages on both voicemails and suggested patient be transferred to the emergency room Kalyani Silveira 04/03/2023 4:16 PM Signed Spoke to the Harshil , the nephew and gave him the advice Dr. Madera had given Kalyani Silveira Allergies As of Date: 04/03/2023 Noted Allergy Reaction ALLOPURINOL 07/08/2013 16 - Unknown DOXYCYCLINE 11/13/2012 16 - Unknown ERYTHROMYCIN 11/13/2012 16 - Unknown MINOCYCLINE 07/08/2013 16 - Unknown PENICILLINS 11/13/2012 16 - Unknown SULFACETAMIDE 09/02/2014 16 - Unknown TETRACYCLINE 11/13/2012 16 - Unknown LEVAQUIN (LEVOFLOXACIN) 09/30/2020 14 - Other: See Comments Comments: prince PAIZCOR (SIMVASTATIN) 09/30/2020 2 - Rash 9 - Itching CIPROFLOXACIN 05/26/2019 16 - Unknown PAXIL (PAROXETINE) 09/30/2020 14 - Other: See Comments Comments: Fatigue SULFA (SULFONAMIDE ANTIBIOTICS) 07/26/2016 16 - Unknown Date Reviewed: 10/23/2022 Reviewed by: Adele Landa MA - Fully Assessed Reason for Visit: Patient Question [1477] Prescriptions as of 04/03/2023 - levothyroxine (SYNTHROID) 50 mcg tablet take 1 tablet by mouth every day - ipratropium bromide (ATROVENT) 42 mcg (0.06 %) nasal spray INHALE 2 SPRAYS INTO EACH NOSTRIL THREE TIMES DAILY - omeprazole (PRILOSEC) 20 mg capsule Take 1 capsule by mouth once daily. - simvastatin (ZOCOR) 20 mg tablet TAKE 1 TABLET BY MOUTH EVERY DAY - albuterol HFA 90 mcg/actuation HFA Inhale 2 Puffs as instructed. Every 4 to 6 hours prn - CHLORPHENIRAMINE MALEATE ORAL Take 4 mg by mouth twice daily. - diclofenac (VOLTAREN ARTHRITIS PAIN) 1 % topical gel Apply 4 g to affected area four times daily. - ketoconazole (NIZORAL) 2 % shampoo Apply to affected area three times a week. - FLOVENT HFA 110 mcg/actuation inhaler Inhale 2 Puffs as instructed twice daily. - guaiFENesin 200 mg tablet GUAIFENESIN TABS as needed GUAIFENESIN TABS [id number] 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 - acetaminophen 650 mg CR tablet Take 650 mg by mouth every 8 hours as needed. - mecobalamin (B12 ACTIVE ORAL) Take by mouth. - alfuzosin SR (UROXATRAL) 10 mg 24 hr tablet TAKE 1 TABLET EVERY DAY - albuterol (PROVENTIL) 2.5 mg /3 mL (0.083 %) nebulizer solution Use 3 mL via nebulizer every 6 hours as needed for wheezing/shortness of breath. - finasteride (PROSCAR) 5 mg tablet TAKE 1 TABLET BY MOUTH EVERY DAY Problem List As Of Date 04/03/2023 Noted Resolved Hypertrophy of prostate with urinary obstructio*08/02/2017 Upper respiratory tract infection due to influe*06/23/2019 UTI (urinary tract infection) [N39.0] 02/23/2022 Encounter Status:Closed by KALYANI SILVEIRA on 04/03/23 [facility] Absolute lymphocyte countOrd ered By: Radha Schofield on 03-21-2023 Lymphocytes Auto (Unsp spec) [#/Vol] 2.57 10*3/uL 0.83-4.51 [facility] Basophil percentageOrdered B y: Radha Schofield on 03-21-2023 Basophils/100 WBC (Bld) 0.8 % 0-1 [facility] Chloride [Moles/Vol] 103 mmol/L 98-107 [facility] Eosinophils/100 WBC (Bld) 3.4 % 0-5 [facility] Glucose [Mass/Vol] 95 mg/dL 74-106 [facility] Neutrophils (Bld) [#/Vol] 5.3 10*3/uL 2.0-7.7 [facility] Neutrophils/100 WBC (Bld) 55.4 % 47-70 [facility] Potassium [Moles/Vol] 3.9 mmol/L 3.5-5.1 [facility] Sodium [Moles/Vol] 135 mmol/L 136-145 [facility] WBC (Bld) [#/Vol] 9.5 10*3/uL 4.4-11.0 [facility] Blood erythrocytes count (nu mber/volume)Ordered By: Radha Schofield on 03-21-2023 RBC (Bld) [#/Vol] 4.28 10*6/uL 4.6-6.2 [facility] Blood hemoglobin measurement (mass/volume)Ordered By: Radha Schofield on 03-21-2023 Hemoglobin (Bld) [Mass/Vol] 12.5 g/dL 13.0-16.5 [facility] Blood lymphocytes/100 leukoc ytesOrdered By: Radha Schofield on 12-06-2023 Lymphocytes/100 WBC (Bld) 27.0 % 19-41 [facility] Blood monocytes/100 leukocyt esOrdered By: Radha Schofield on 03-21-2023 Monocytes/100 WBC (Bld) 11.6 % 0-10 [facility] Blood platelet mean volumeOr dered By: Radha Schofield on 03-21-2023 Platelet mean volume (Bld) [Entitic vol] 9.3 fL 6.2-12.0 [facility] Determination of erythrocyte mean corpuscular volume (MCV)Ordered By: Radha Schofield on 03-21-2023 MCV (RBC) [Entitic vol] 91.4 fL 80-94 [facility] Hematocrit Auto (Bld) [Volum e fraction]Ordered By: Radha Schofield on 03-21-2023 Hematocrit (Bld) [Volume fraction] 39.1 % 40-54 [facility] Laboratory - Chemistry and C hemistry - challengeOrdered By: Radha Schofield on 03-21-2023 CO2 [Moles/Vol] 26.0 mmol/L 21.0-32.0 [facility] Urea nitrogen/Creatinine [Mass ratio] 19.0 mg/mg 10-20 [facility] Laboratory - Hematology and Cell countsOrdered By: Radha Schofield on 03-21-2023 Erythrocyte distribution width (RBC) [Entitic vol] 45.1 fL 35.1-43.9 [facility] Erythrocyte distribution width (RBC) [Ratio] 13.4 % 11.6-14.6 [facility] Immature granulocytes/100 WBC (Bld) 1.800 % 0.0-0.9 [facility] Comment on above: IG% - Immature Granu locytes (promyelocytes, myelocytes and metamyelocytes) > 1% indicates that a LEFT SHIFT is Present. MCH (RBC) [Entitic mass] 29.2 pg 27.0-32.0 [facility] Nucleated RBC/100 WBC (Bld) [Ratio] 0 % 0-5 [facility] MCHC Auto (RBC) [Mass/Vol]Or dered By: Radha Schofield on 03-21-2023 MCHC (RBC) [Mass/Vol] 32.0 g/dL 32-36 [facility] No Panel InformationOrdered By: Radha Schofield on 03-21-2023 Estimated Creatinine Clearance Calc 39.58 ml/min [facility] Estimated GFR (MDRD) Amer 156 mL/min >60 [facility] Comment on above: GFR Calc Estimated GFR (MDRD) Non-Af Amer 129 mL/min >60 [facility] Comment on above: Non- GFR Calc Platelets bldOrdered By: Whit Schofield on 03-21-2023 Platelets (Bld) [#/Vol] 497 10*3/uL 150-450 [facility] Serum or plasma calcium vinicio urement (mass/volume)Ordered By: Radha Schofield on 03-21-2023 Calcium [Mass/Vol] 9.1 mg/dL 8.5-10.1 [facility] Serum or plasma creatinine m easurement (mass/volume)Ordered By: Radha Schofield on 03-21-2023 Creatinine [Mass/Vol] 0.63 mg/dL 0.70-1.30 [facility] Comment on above: The validity of the calculated GFR & GFRAA in patients over 70 years has not been determined. Clinical correlation is essential. Serum or plasma urea nitroge n measurement (mass/volume)Ordered By: Radha Schofield on 03-21-2023 Urea nitrogen [Mass/Vol] 12 mg/dL 7-18 [facility] Thin prep Papanicolaou smear with manual screeningOrdered By: Radha Schofield on 03-21-2023 Thin prep Papanicolaou smear with manual screening 6 5-15 [facility] Basophil percentageOrdered B y: Zechariah Post on 03-18-2023 Basophil percentage 25-50 SEEN /hpf 0-5 [facility] Bilirubin Test strip Ql (U)O rdered By: Zechariah Post on 03-18-2023 Bilirubin Ql (U) Negative Negative [facility] [facility] Culture, urineOrdered By: Pedro Post on 03-18-2023 Bacteria identified Cx Nom (U) ESBL Klebsiella pneumoniae pne [facility] Ketones Test strip Ql (U)Ord ered By: Zechariah Post on 03-18-2023 Ketones Ql (U) Negative Negative [facility] Mucus LM Ql (Urine sed)Order ed By: Zechariah Post on 03-18-2023 Mucus Ql (Urine sed) 0 SEEN /hpf [facility] Nitrite Test strip Ql (U)Ord ered By: Zechariah Post on 03-18-2023 Nitrite Ql (U) Positive Negative [facility] Protein Test strip Ql (U)Ord ered By: Zechariah Post on 03-18-2023 Protein Ql (U) 100 mg/dl Negative [facility] Squamous epithelial cells de tection in urine sediment by light microscopyOrdered By: Zechariah Post on 03-18-2023 Epithelial cells.squamous LM Ql (Urine sed) 0 SEEN /hpf 0-5 [facility] Urine blood detectionOrdered By: Zechariah Pots on 03-18-2023 RBC Ql (U) 50 /ul Negative [facility] RBC Ql (U) 0-5 SEEN /hpf 0-5 [facility] Urine clarityOrdered By: Brina Post on 03-18-2023 Clarity (U) Cloudy Clear [facility] Urine color determinationOrd ered By: Zechariah Post on 03-18-2023 Color (U) Yellow Yellow [facility] Urine glucose detectionOrder ed By: Zechariah Post on 03-18-2023 Glucose Ql (U) Normal mg/dl Normal [facility] Urine leukocyte esterase det ection by dipstickOrdered By: Zechariah Post on 03-18-2023 Leukocyte esterase Test strip Ql (U) 500 /ul Negative [facility] Urine pHOrdered By: Zechariah ibarra on 03-18-2023 pH (U) 6.0 [pH] 5.0 - 8.0 [facility] Urine sediment bacteria coun t by microscopy (number/high power field)Ordered By: Zechariah Post on 03-18-2023 Bacteria LM.HPF (Urine sed) [#/Area] 1 /[HPF] None Seen [facility] Urine specific gravity measu rementOrdered By: Zechariah Post on 03-18-2023 Specific gravity (U) [Rel density] 1.015 1.002-1.030 [facility] Urobilinogen Auto test strip Ql (U)Ordered By: Zechariah Post on 03-18-2023 Urobilinogen Ql (U) Normal mg/dl Normal [facility] Bacteria identified Cx Nom ( U)Ordered By: Jennifer August on 02-17-2023 Interpretation and review of laboratory results Abnormal [facility] Basic metabolic 1998 panelon 02-17-2023 Anion gap [Moles/Vol] 9 mmol/L 3 - 13 mmol/L [facility] Calcium [Mass/Vol] 9.4 mg/dL 8.4 - 10. 4 mg/dL [facility] Chloride [Moles/Vol] 98 mmol/L 98 - 10 7 mmol/L [facility] CO2 [Moles/Vol] 27 mmol/L 22 - 30 mmol/L [facility] Creatinine [Mass/Vol] 0.70 mg/dL 0.66 - 1.25 mg/dL [facility] GFR/1.73 sq M.predicted MDRD (S/P/Bld) [Vol rate/Area] - [facility] Comment on above: Calculation based on the Chronic Kidney Disease Epidemiology Collaboration (CKD-EPI) equation refit without adjustment for race Glucose [Mass/Vol] 99 mg/dL 70 - 100 mg/dL [facility] Interpretation and review of laboratory results Abnormal [facility] Potassium [Moles/Vol] 4.5 mmol/L 3.5 - 5.1 mmol/L [facility] Sodium [Moles/Vol] 135 mmol/L 135 - 145 mmol/L [facility] Urea nitrogen [Mass/Vol] 24 mg/dL High 9 - 20 mg/dL [facility] Laboratory - Microbiology an d Antimicrobial susceptibilityOrdered By: Jennifer August on 02-17-2023 Bacteria identified Cx Nom (U) >100,000 CFU/mL Proteus mirabilis Abnormal [facility] metabolic 1998 panelon 02-16-2023 Anion gap [Moles/Vol] 9 mmol/L 3 - 13 mmol/L [facility] Calcium [Mass/Vol] 9.4 mg/dL 8.4 - 10. 4 mg/dL [facility] Chloride [Moles/Vol] 100 mmol/L 98 - 10 7 mmol/L [facility] CO2 [Moles/Vol] 25 mmol/L 22 - 30 mmol/L [facility] Creatinine [Mass/Vol] 0.66 mg/dL 0.66 - 1.25 mg/dL [facility] GFR/1.73 sq M.predicted MDRD (S/P/Bld) [Vol rate/Area] - PINF [facility] Comment on above: Calculation based on the Chronic Kidney Disease Epidemiology Collaboration (CKD-EPI) equation refit without adjustment for race Glucose [Mass/Vol] 120 mg/dL High 70 - 100 mg/dL [facility] Interpretation and review of laboratory results Abnormal [facility] Potassium [Moles/Vol] 4.4 mmol/L 3.5 - 5.1 mmol/L [facility] Sodium [Moles/Vol] 134 mmol/L Low 135 - 145 mmol/L [facility] Urea nitrogen [Mass/Vol] 21 mg/dL High 9 - 20 mg/dL [facility] CNPNon 02-16-2023 CNPN Telephone ([facility]) DOROTEO GONG ([id number]) 1940 M Date Time Provider Department 02/16/23 ROOPA MADERA [facility] During your visit today, we recorded the following information about you: Maximiliano Draper MA 02/16/2023 9:50 AM Signed Kenia ARROYO from [facility] called. They were calling patient to come out to the home. Patient said his left leg was going out and he was going to hospital, so he better not have therapy and hung up phone. Patient went to [facility]. Records are in Care Everywhere. Maximiliano Draper MA Allergies As of Date: 02/16/2023 Noted Allergy Reaction ALLOPURINOL 07/08/2013 16 - Unknown DOXYCYCLINE 11/13/2012 16 - Unknown ERYTHROMYCIN 11/13/2012 16 - Unknown MINOCYCLINE 07/08/2013 16 - Unknown PENICILLINS 11/13/2012 16 - Unknown SULFACETAMIDE 09/02/2014 16 - Unknown TETRACYCLINE 11/13/2012 16 - Unknown LEVAQUIN (LEVOFLOXACIN) 09/30/2020 14 - Other: See Comments Comments: jittery ZOCOR (SIMVASTATIN) 09/30/2020 2 - Rash 9 - Itching CIPROFLOXACIN 05/26/2019 16 - Unknown PAXIL (PAROXETINE) 09/30/2020 14 - Other: See Comments Comments: Fatigue SULFA (SULFONAMIDE ANTIBIOTICS) 07/26/2016 16 - Unknown Date Reviewed: 10/23/2022 Reviewed by: Adele Landa MA - Fully Assessed Reason for Visit: Patient Update [1234] Cmt: Therapy Prescriptions as of 02/19/2023 - levothyroxine (SYNTHROID) 50 mcg tablet take 1 tablet by mouth every day - ipratropium bromide (ATROVENT) 42 mcg (0.06 %) nasal spray INHALE 2 SPRAYS INTO EACH NOSTRIL THREE TIMES DAILY - omeprazole (PRILOSEC) 20 mg capsule Take 1 capsule by mouth once daily. - simvastatin (ZOCOR) 20 mg tablet TAKE 1 TABLET BY MOUTH EVERY DAY - albuterol HFA 90 mcg/actuation HFA Inhale 2 Puffs as instructed. Every 4 to 6 hours prn - CHLORPHENIRAMINE MALEATE ORAL Take 4 mg by mouth twice daily. - diclofenac (VOLTAREN ARTHRITIS PAIN) 1 % topical gel Apply 4 g to affected area four times daily. - ketoconazole (NIZORAL) 2 % shampoo Apply to affected area three times a week. - FLOVENT HFA 110 mcg/actuation inhaler Inhale 2 Puffs as instructed twice daily. - guaiFENesin 200 mg tablet GUAIFENESIN TABS as needed GUAIFENESIN TABS [id number] 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 - acetaminophen 650 mg CR tablet Take 650 mg by mouth every 8 hours as needed. - mecobalamin (B12 ACTIVE ORAL) Take by mouth. - alfuzosin SR (UROXATRAL) 10 mg 24 hr tablet TAKE 1 TABLET EVERY DAY - albuterol (PROVENTIL) 2.5 mg /3 mL (0.083 %) nebulizer solution Use 3 mL via nebulizer every 6 hours as needed for wheezing/shortness of breath. 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 4 mg/dL [facility] Chloride [Moles/Vol] 102 mmol/L 98 - 10 7 mmol/L [facility] CO2 [Moles/Vol] 25 mmol/L 22 - 30 mmol/L [facility] Creatinine [Mass/Vol] 0.64 mg/dL Low 0.66 - 1.25 mg/dL [facility] GFR/1.73 sq M.predicted MDRD (S/P/Bld) [Vol rate/Area] - PIN[facility] Comment on above: Calculation based on the Chronic Kidney Disease Epidemiology Collaboration (CKD-EPI) equation refit without adjustment for race Glucose [Mass/Vol] 120 mg/dL High 70 - 100 mg/dL [facility] Interpretation and review of laboratory results Abnormal [facility] Potassium [Moles/Vol] 4.4 mmol/L 3.5 - 5.1 mmol/L [facility] Sodium [Moles/Vol] 135 mmol/L 135 - 145 mmol/L [facility] Urea nitrogen [Mass/Vol] 22 mg/dL High 9 - 20 mg/dL [facility] 25-hydroxyvitamin D3 [Mass/V ol]on 02-14-2023 Interpretation and review of laboratory results Abnormal [facility] Therapy is based on measurement of Total 25-OHD with the following classification levels: Less than 20 ng/mL: Indicative of Vit D deficiency 20-30 ng/mL: Suggests Vit D insufficiency Optimal: Greater than or equal to 30 ng/mL Test performed by [employer] Immunoassay, measuring Total Vitamin D, not individual fractions. [facility] Basic metabolic 1998 panelon 02-14-2023 Anion gap [Moles/Vol] 10 mmol/L 3 - 13 mmol/L [facility] Calcium [Mass/Vol] 9.2 mg/dL 8.4 - 10. 4 mg/dL [facility] Chloride [Moles/Vol] 104 mmol/L 98 - 10 7 mmol/L [facility] CO2 [Moles/Vol] 22 mmol/L 22 - 30 mmol/L [facility] Creatinine [Mass/Vol] 0.71 mg/dL 0.66 - 1.25 mg/dL [facility] GFR/1.73 sq M.predicted MDRD (S/P/Bld) [Vol rate/Area] - PINF [facility] Comment on above: Calculation based on the Chronic Kidney Disease Epidemiology Collaboration (CKD-EPI) equation refit without adjustment for race Glucose [Mass/Vol] 126 mg/dL High 70 - 100 mg/dL [facility] Interpretation and review of laboratory results Abnormal [facility] Potassium [Moles/Vol] 4.6 mmol/L 3.5 - 5.1 mmol/L [facility] Sodium [Moles/Vol] 136 mmol/L 135 - 145 mmol/L [facility] Urea nitrogen [Mass/Vol] 17 mg/dL 9 - 20 mg/dL [facility] CBC W Auto Differential pane l (Bld)Ordered By: Roopa Randall on 02-14-2023 Basophils (Bld) [#/Vol] 0.0 10*3/uL 0.0 - 0.2 10*3/uL [facility] Basophils/100 WBC (Bld) 0.3 % 0.0 - 2.0 % [facility] Eosinophils (Bld) [#/Vol] 0.0 10*3/uL 0.0 - 0.5 10*3/uL [facility] Eosinophils/100 WBC (Bld) 0.1 % Low 1.0 - 6.0 % [facility] Erythrocyte distribution width (RBC) [Ratio] 13.9 % 11.5 - 14.5 % [facility] Hematocrit (Bld) [Volume fraction] 39.0 % Low 40.0 - 52.0 % [facility] Hemoglobin (Bld) [Mass/Vol] 12.7 g/dL Low 13.0 - 18.0 g/dL [facility] Interpretation and review of laboratory results Abnormal [facility] Lymphocytes (Bld) [#/Vol] 1.8 10*3/uL 1.0 - 4.3 10*3/uL [facility] Lymphocytes/100 WBC (Bld) 18.7 % Low 20.0 - 40.0 % [facility] MCH (RBC) [Entitic mass] 30.0 pg 26. 0 - 34.0 pg [facility] MCHC (RBC) [Mass/Vol] 32.5 % 32.0 - 36.0 % [facility] MCV (RBC) [Entitic vol] 92.2 fL 80.0 - 98.0 fL [facility] Monocytes (Bld) [#/Vol] 0.7 10*3/uL 0.0 - 0.8 10*3/uL [facility] Monocytes/100 WBC (Bld) 7.3 % 2.0 - 10.0 % [facility] Neutrophils (Bld) [#/Vol] 7.2 10*3/uL High 1.8 - 7.0 10*3/uL [facility] Neutrophils/100 WBC (Bld) 73.6 % 40.0 - 80.0 % [facility] Nucleated RBC/100 WBC (Bld) [Ratio] 0.0 % [facility] Platelet mean volume (Bld) [Entitic vol] 7.7 fL 7.4 - 12.4 fL [facility] Platelets (Bld) [#/Vol] 406 10*3/uL 140 - 440 10*3/uL [facility] RBC (Bld) [#/Vol] 4.23 10*6/uL Low 4.40 - 5.9 0 10*6/uL [facility] WBC (Bld) [#/Vol] 9.8 10*3/uL 3.6 - 10.7 10*3/uL [facility] Cobalamin (Vitamin B12) [Mas s/Vol]on 02-14-2023 Interpretation and review of laboratory results Abnormal [facility] Folate [Mass/Vol]on 02-15-20 23 Interpretation and review of laboratory results Normal [facility] Free T4 [Mass/Vol]on 023 Free T4 Dialysis [Mass/Vol] 1.01 ng/dL 0.78 - 2.19 ng/dL [facility] Interpretation and review of laboratory results Normal [facility] Laboratory - Chemistry and C hemistry - challengeon 02-14-2023 25-hydroxyvitamin D3 [Mass/Vol] ng/mL Low 30 - 100 ng/mL [facility] Cobalamin (Vitamin B12) [Mass/Vol] 974 pg/mL High 239 - 931 pg/mL [facility] Folate [Mass/Vol] 5.0 ng/mL 2.9 - PINF ng/mL [facility] TSH Qn 0.616 m[IU]/L [facility] No Panel Informationon 02-14 No evidence of deep vein or superficial vein thrombosis in the right lower extremity. Vessels demonstrate normal compressibility, color filling, and phasic and spontaneous flow. No evidence of deep vein or superficial vein thrombosis in the left lower extremity. Vessels demonstrate normal compressibility, color filling, and phasic and spontaneous flow. Right Lower Venous No evidence of deep vein or superficial vein thrombosis. The common femoral, saphenofemoral junction, femoral, popliteal, gastrocnemius, soleal, greater saphenous, posterior tibial, and peroneal veins were imaged in the transverse view and showed normal compressibility. The common femoral, middle femoral, and popliteal veins were imaged in the longitudinal view and showed normal color filling and normal phasic and spontaneous flow. Left Lower Venous No evidence of deep vein or superficial vein thrombosis. The common femoral, saphenofemoral junction, femoral, popliteal, gastrocnemius, soleal, greater saphenous, posterior tibial, and peroneal veins were imaged in the transverse view and showed normal compressibility. The common femoral, middle femoral, and popliteal veins were imaged in the longitudinal view and showed normal color filling and normal phasic and spontaneous flow. [employer] A boyd scale, color Doppler imaging and spectral Doppler analysis ultrasound was performed. During the study longitudinal and transverse views were obtained. Pulsed wave doppler was performed. The exam was performed with the patient in the supine position. Overall the study quality was adequate. Study was technically difficult due to: Slightly limited visualization in both calves. Some lymphedema noted, fabiana in left leg. . CV CPACS [facility] TSH Qnon 02-14-2023 Interpretation and review of laboratory results Normal [facility] Urinalysis complete panel (U )Ordered By: Candi Zamorano on 02-14-2023 Bacteria LM.HPF (Urine sed) [#/Area] Moderate Abnormal Negative /HPF [facility] Bilirubin Ql (U) Negative Negative mg/dL [facility] Clarity (U) Extra Turbid Abnormal Clear [facility] h Color (U) Light Yellow Lt. Yellow [facility] Epithelial cells.squamous LM.HPF (Urine sed) [#/Area] 0-2 [facility] Glucose Ql (U) Normal Normal (<70) mg/dL [facility] Hemoglobin Ql (U) 1.0 mg/dL [facility] Hyaline casts Auto (Urine sed) [#/Area] Negative Negative /LPF [facility] Interpretation and review of laboratory results Abnormal [facility] Ketones (U) [Mass/Vol] Negative Negat stephen mg/dL [facility] Leukocyte esterase Test strip Ql (U) 500 Abnormal Negative Pennie/uL [facility] Mucus LM.HPF (Urine sed) [#/Area] Few Negative /LPF [facility] Nitrite Ql (U) Positive Abnormal Negative [facility] pH (U) 7.5 [pH] 5.0 - 8.0 pH [facility] Protein (U) [Mass/Vol] 100 mg/dL Abnormal Negative [facility] RBC LM.HPF (Urine sed) [#/Area] 6-10 Abnormal [facility] Specific gravity (U) [Rel density] 1.013 1.005 - 1.030 [facility] Urobilinogen (U) [Mass/Vol] Normal Normal (0-1) mg/dL [facility] WBC LM.HPF (Urine sed) [#/Area] /[HPF] Abnormal [facility] Basic metabolic 1998 panelon 02-13-2023 Anion gap [Moles/Vol] 10 mmol/L 3 - 13 mmol/L [facility] Calcium [Mass/Vol] 8.9 mg/dL 8.4 - 10. 4 mg/dL [facility] Chloride [Moles/Vol] 106 mmol/L 98 - 10 7 mmol/L [facility] CO2 [Moles/Vol] 22 mmol/L 22 - 30 mmol/L [facility] Creatinine [Mass/Vol] 0.89 mg/dL 0.66 - 1.25 mg/dL [facility] GFR/1.73 sq M.predicted MDRD (S/P/Bld) [Vol rate/Area] 85.0 mL/min/{1.73_m2} - PINF [facility] Comment on above: Calculation based on the Chronic Kidney Disease Epidemiology Collaboration (CKD-EPI) equation refit without adjustment for race Glucose [Mass/Vol] 114 mg/dL High 70 - 100 mg/dL [facility] Interpretation and review of laboratory results Abnormal [facility] Potassium [Moles/Vol] 4.3 mmol/L 3.5 - 5.1 mmol/L [facility] Sodium [Moles/Vol] 138 mmol/L 135 - 145 mmol/L [facility] Urea nitrogen [Mass/Vol] 17 mg/dL 9 - 20 mg/dL [facility] CBC W Auto Differential pane l (Bld)Ordered By: Erica Marrero on 02-13-2023 Basophils (Bld) [#/Vol] 0.1 10*3/uL 0.0 - 0.2 10*3/uL [facility] Basophils/100 WBC (Bld) 0.8 % 0.0 - 2.0 % [facility] Eosinophils (Bld) [#/Vol] 0.4 10*3/uL 0.0 - 0.5 10*3/uL [facility] Eosinophils/100 WBC (Bld) 4.0 % 1.0 - 6.0 % [facility] Erythrocyte distribution width (RBC) [Ratio] 13.8 % 11.5 - 14.5 % [facility] Hematocrit (Bld) [Volume fraction] 38.8 % Low 40.0 - 52.0 % [facility] Hemoglobin (Bld) [Mass/Vol] 13.1 g/dL 13.0 - 18.0 g/dL [facility] Immature granulocytes (Bld) [#/Vol] 0.0 10*3/uL NINF - 0.0 10*3/uL [facility] Immature granulocytes/100 WBC (Bld) 0.3 % High NINF - 0.0 % [facility] Interpretation and review of laboratory results Abnormal [facility] Lymphocytes (Bld) [#/Vol] 2.1 10*3/uL 1.0 - 4.3 10*3/uL [facility] Lymphocytes/100 WBC (Bld) 21.6 % 20.0 - 40.0 % [facility] MCH (RBC) [Entitic mass] 30.4 pg 26. 0 - 34.0 pg [facility] MCHC (RBC) [Mass/Vol] 33.8 % 32.0 - 36.0 % [facility] MCV (RBC) [Entitic vol] 90.0 fL 80.0 - 98.0 fL [facility] Monocytes (Bld) [#/Vol] 1.2 10*3/uL High 0.0 - 0.8 10*3/uL [facility] Monocytes/100 WBC (Bld) 12.8 % High 2.0 - 10.0 % [facility] Neutrophils (Bld) [#/Vol] 5.8 10*3/uL 1.8 - 7.0 10*3/uL [facility] Neutrophils/100 WBC (Bld) 60.5 % 40.0 - 80.0 % [facility] Platelet mean volume (Bld) [Entitic vol] 9.9 fL 7.4 - 12.4 fL [facility] Comment on above: MPV is a calculated measurement using platelet volume ratio Platelets (Bld) [#/Vol] 455 10*3/uL High 140 - 440 10*3/uL [facility] RBC (Bld) [#/Vol] 4.31 10*6/uL Low 4.40 - 5.9 0 10*6/uL [facility] WBC (Bld) [#/Vol] 9.6 10*3/uL 3.6 - 10.7 10*3/uL [facility] Laboratory - Chemistry and C hemistry - challengeon 02-13-2023 CK [Catalytic activity/Vol] 43 U/L 30 - 170 U/L [facility] Magnesium [Mass/Vol] 2.0 mg/dL 1.6 - 2 .3 mg/dL [facility] Troponin I.cardiac [Mass/Vol] ng/mL NINF - 0.034 ng/mL [facility] Natriuretic peptide B [Mass/ Vol]on 02-13-2023 Natriuretic peptide B (Bld) [Mass/Vol] 223 pg/mL <20 - 300 [facility] No Panel Informationon 02-13 P [place] degrees [facility] ID Interval ms [facility] QRS [place] -82 degrees [facility] QRSD Interval 140 ms [facility] QT Interval 408 ms [facility] QTC Interval 453 ms [facility] T Wave [place] 42 degrees [facility] EKG shows rate controlled atrial flutter with sawtooth wave appearance between QRS complexes. Left axis deviation. Cannot calculate ID interval. QRS prolonged, QTc within normal limits. No STEMI, no LVH, no SVT. Previous EKG showed sinus rhythm. Electronically Signed On 02-13-2023 2:31:22 EDT by Ramiro Rodríguez MD - 02/13/2023 IMPRESSION: EKG shows rate controlled atrial flutter with sawtooth wave appearance between QRS complexes. Left axis deviation. Cannot calculate ID interval. QRS prolonged, QTc within normal limits. No STEMI, no LVH, no SVT. Previous EKG showed sinus rhythm. Electronically Signed On 02-13-2023 2:31:22 EDT by Ramiro Baird [facility] Interpretation and review of laboratory results Normal [facility] Slight Hemolysis [facility] Troponin I.cardiac [Mass/Vol ]on 02-13-2023 Patients with high levels of Biotin oral intake (ie >5 mg/day) may have falsely decreased Troponin levels. [facility] Vital signson 02-13-2023 Heart rate 74 /min bpm [facility] XR Chest Single viewon 02-13 See findings. Report Dictated on Electronically Signed By: Kranthi Uribe MD Electronically Signed Date/Time: 02/13/2023 1:42 AM EDT [facility] [employer] [facility] Patient Name: DOROTEO GONG : 1940 Exam Date/Time: 02/13/2023 01:29 Procedure: XR CHEST 1 VIEW Ordering Provider: BAIRD DOUGLAS Reason For Exam: bibasilar crackles. bilateral leg edema. off lasix. chf or copd or both CHEST RADIOGRAPH CLINICAL INDICATION: Congestive heart failure TECHNIQUE: AP COMPARISON: 12/30/2022 chest radiograph FINDINGS: Cardiomediastinal: Cardiomediastinal silhouette is normal in size and configuration. Lungs: Increased interstitial lung markings bilaterally likely representing chronic lung changes, superimposed edema or inflammatory/infectious process is not entirely excluded. No sizable pleural effusion, focal consolidation or pneumothorax. Osseous structures: No acute osseous abnormality. [facility] Kranthi Uribe MD - 02/13/2023 Patient Name: DOROTEO GONG : 1940 Exam Date/Time: 02/13/2023 01:29 Procedure: XR CHEST 1 VIEW Ordering Provider: BAIRD DOUGLAS Reason For Exam: bibasilar crackles. bilateral leg edema. off lasix. chf or copd or both CHEST RADIOGRAPH CLINICAL INDICATION: Congestive heart failure TECHNIQUE: AP COMPARISON: 12/30/2022 chest radiograph FINDINGS: Cardiomediastinal: Cardiomediastinal silhouette is normal in size and configuration. Lungs: Increased interstitial lung markings bilaterally likely representing chronic lung changes, superimposed edema or inflammatory/infectious process is not entirely excluded. No sizable pleural effusion, focal consolidation or pneumothorax. Osseous structures: No acute osseous abnormality. IMPRESSION: See findings. 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 Diffuse osteopenia. Report Dictated on Electronically Signed By: Kranthi Uribe MD Electronically Signed Date/Time: 02/13/2023 1:44 AM EDT [employer] Patient Name: DOROTEO GONG : 1940 Exam Date/Time: 02/13/2023 01:30 Procedure: XR KNEE 1-2 VIEWS LEFT Ordering Provider: BAIRD DOUGLAS Reason For Exam: left knee pain, stiff. fracture vs arthritis LEFT KNEE: CLINICAL INDICATION: Pain. TECHNIQUE: Two views of the left knee were obtained. COMPARISON: None FINDINGS: There is no evidence for fracture or dislocation. 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 Diffuse osteopenia. Diffuse vascular calcifications. No significant suprapatellar joint effusion. [facility] Kranthi Uribe MD - 02/13/2023 Patient Name: DOROTEO GONG : 1940 Exam Date/Time: 02/13/2023 01:30 Procedure: XR KNEE 1-2 VIEWS LEFT Ordering Provider: BAIRD DOUGLAS Reason For Exam: left knee pain, stiff. fracture vs arthritis LEFT KNEE: CLINICAL INDICATION: Pain. TECHNIQUE: Two views of the left knee were obtained. COMPARISON: None FINDINGS: There is no evidence for fracture or dislocation. 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 Diffuse osteopenia. Diffuse vascular calcifications. No significant suprapatellar joint effusion. 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 Diffuse osteopenia. Report Dictated on Electronically Signed By: Kranthi Uribe MD Electronically Signed Date/Time: 02/13/2023 1:44 AM EDT [facility] Radiology Study observation (narrative) [facility] XR Knee - left 1 or 2 ViewsO rdered By: Kranthi Uribe on 02-13-2023 [facility] Work Phone: Bacteria identified Cx Nom ( U)Ordered By: Jennifer August on 01-04-2023 Interpretation and review of laboratory results Normal [facility] CBC W Auto Differential pane l (Bld)on 01-04-2023 Basophils (Bld) [#/Vol] 0.1 10*3/uL 0.0 - 0.2 10*3/uL [facility] Basophils/100 WBC (Bld) 0.5 % 0.0 - 2.0 % [facility] Eosinophils (Bld) [#/Vol] 0.0 10*3/uL 0.0 - 0.5 10*3/uL [facility] Eosinophils/100 WBC (Bld) 0.2 % Low 1.0 - 6.0 % [facility] Erythrocyte distribution width (RBC) [Ratio] 13.4 % 11.5 - 14.5 % [facility] Hematocrit (Bld) [Volume fraction] 40.7 % 40.0 - 52.0 % [facility] Hemoglobin (Bld) [Mass/Vol] 13.7 g/dL 13.0 - 18.0 g/dL [facility] Interpretation and review of laboratory results Abnormal [facility] Lymphocytes (Bld) [#/Vol] 1.8 10*3/uL 1.0 - 4.3 10*3/uL [facility] Lymphocytes/100 WBC (Bld) 14.7 % Low 20.0 - 40.0 % [facility] MCH (RBC) [Entitic mass] 30.3 pg 26. 0 - 34.0 pg [facility] MCHC (RBC) [Mass/Vol] 33.6 % 32.0 - 36.0 % [facility] MCV (RBC) [Entitic vol] 90.0 fL 80.0 - 98.0 fL [facility] Monocytes (Bld) [#/Vol] 1.5 10*3/uL High 0.0 - 0.8 10*3/uL [facility] Monocytes/100 WBC (Bld) 12.1 % High 2.0 - 10.0 % [facility] Neutrophils (Bld) [#/Vol] 8.8 10*3/uL High 1.8 - 7.0 10*3/uL [facility] Neutrophils/100 WBC (Bld) 72.5 % 40.0 - 80.0 % [facility] Nucleated RBC/100 WBC (Bld) [Ratio] 0.1 % [facility] Platelet mean volume (Bld) [Entitic vol] 7.8 fL 7.4 - 12.4 fL [facility] Platelets (Bld) [#/Vol] 398 10*3/uL 140 - 440 10*3/uL [facility] RBC (Bld) [#/Vol] 4.52 10*6/uL 4.40 - 5.9 0 10*6/uL [facility] WBC (Bld) [#/Vol] 12.2 10*3/uL High 3.6 - 10.7 10*3/uL [facility] CNP[facility] 01-04-2023 [facility] Telephone ([facility]) DOROTEO GONG ([id number]) 1940 M Date Time Provider Department 01/04/23 ROOPA MADERA [facility] During your visit today, we recorded the following information about you: Tasha Ottoa 01/04/2023 12:59 PM Signed FYI: Pt called to say he was admitted to [facility] December 30 and [facility] being [facility] Roopa Bingham MD 01/04/2023 3:27 PM Signed Message reviewed. Roopa Madera MD Allergies As of Date: 01/04/2023 Noted Allergy Reaction ALLOPURINOL 07/08/2013 16 - Unknown DOXYCYCLINE 11/13/2012 16 - Unknown ERYTHROMYCIN 11/13/2012 16 - Unknown MINOCYCLINE 07/08/2013 16 - Unknown PENICILLINS 11/13/2012 16 - Unknown SULFACETAMIDE 09/02/2014 16 - Unknown TETRACYCLINE 11/13/2012 16 - Unknown LEVAQUIN (LEVOFLOXACIN) 09/30/2020 14 - Other: See Comments Comments: jittery ZOCOR (SIMVASTATIN) 09/30/2020 2 - Rash 9 - Itching CIPROFLOXACIN 05/26/2019 16 - Unknown PAXIL (PAROXETINE) 09/30/2020 14 - Other: See Comments Comments: Fatigue SULFA (SULFONAMIDE ANTIBIOTICS) 07/26/2016 16 - Unknown Date Reviewed: 10/23/2022 Reviewed by: Adele Landa MA - Fully Assessed Reason for Visit: Patient Update [1234] Prescriptions as of 01/15/2023 - simvastatin (ZOCOR) 20 mg tablet TAKE 1 TABLET BY MOUTH EVERY DAY - ipratropium bromide (ATROVENT) 42 mcg (0.06 %) nasal spray INHALE 2 SPRAYS INTO EACH NOSTRIL THREE TIMES DAILY - omeprazole (PRILOSEC) 20 mg capsule Take 1 capsule by mouth once daily. - levothyroxine (SYNTHROID) 50 mcg tablet TAKE 1 TABLET BY MOUTH EVERY DAY - albuterol HFA 90 mcg/actuation HFA Inhale 2 Puffs as instructed. Every 4 to 6 hours prn - CHLORPHENIRAMINE MALEATE ORAL Take 4 mg by mouth twice daily. - diclofenac (VOLTAREN ARTHRITIS PAIN) 1 % topical gel Apply 4 g to affected area four times daily. - ketoconazole (NIZORAL) 2 % shampoo Apply to affected area three times a week. - FLOVENT HFA 110 mcg/actuation inhaler Inhale 2 Puffs as instructed twice daily. - guaiFENesin 200 mg tablet GUAIFENESIN TABS as needed GUAIFENESIN TABS [id number] 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 - acetaminophen 650 mg CR tablet Take 650 mg by mouth every 8 hours as needed. - mecobalamin (B12 ACTIVE ORAL) Take by mouth. - alfuzosin SR (UROXATRAL) 10 mg 24 hr tablet TAKE 1 TABLET EVERY DAY - albuterol (PROVENTIL) 2.5 mg /3 mL (0.083 %) nebulizer solution Use 3 mL via nebulizer every 6 hours as needed for wheezing/shortness of breath. 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 Upper respiratory tract infection due to influe*06/23/2019 UTI (urinary tract infection) [N39.0] 02/23/2022 Encounter Status:Closed by RIRI OTTO on 01/15/23 Normal [facility] Comprehensive metabolic 1998 panelon 01-04-2023 Albumin [Mass/Vol] 3.8 g/dL 3.5 - 5.0 g/dL [facility] ALP [Catalytic activity/Vol] 48 U/L 38 - 126 U/L [facility] ALT [Catalytic activity/Vol] 19 U/L 0 - 49 U/L [facility] Anion gap [Moles/Vol] 8 mmol/L 3 - 13 mmol/L [facility] AST [Catalytic activity/Vol] 28 U/L 15 - 46 U/L [facility] Bilirubin [Mass/Vol] 0.4 mg/dL 0.2 - 1 .3 mg/dL [facility] Calcium [Mass/Vol] 9.3 mg/dL 8.4 - 10. 4 mg/dL [facility] Chloride [Moles/Vol] 100 mmol/L 98 - 10 7 mmol/L [facility] CO2 [Moles/Vol] 27 mmol/L 22 - 30 mmol/L [facility] Creatinine [Mass/Vol] 0.67 mg/dL 0.66 - 1.25 mg/dL [facility] GFR/1.73 sq M.predicted MDRD (S/P/Bld) [Vol rate/Area] - PINF [facility] Comment on above: Calculation based on the Chronic Kidney Disease Epidemiology Collaboration (CKD-EPI) equation refit without adjustment for race Glucose [Mass/Vol] 114 mg/dL High 70 - 100 mg/dL [facility] Interpretation and review of laboratory results Abnormal [facility] Potassium [Moles/Vol] 4.2 mmol/L 3.5 - 5.1 mmol/L [facility] Protein [Mass/Vol] 6.4 g/dL 6.3 - 8.2 g/dL [facility] Sodium [Moles/Vol] 135 mmol/L 135 - 145 mmol/L [facility] Urea nitrogen [Mass/Vol] 27 mg/dL High 9 - 20 mg/dL [facility] Laboratory - Microbiology an d Antimicrobial susceptibilityOrdered By: Jennifer August on 01-04-2023 Bacteria identified Cx Nom (U) Insignificant growth based on current clinical guidelines [facility] CBC W Auto Differential pane l (Bld)on 01-03-2023 Erythrocyte distribution width (RBC) [Ratio] 13.4 % 11.5 - 14.5 % [facility] Hematocrit (Bld) [Volume fraction] 42.4 % 40.0 - 52.0 % [facility] Hemoglobin (Bld) [Mass/Vol] 14.0 g/dL 13.0 - 18.0 g/dL [facility] MCH (RBC) [Entitic mass] 30.5 pg 26. 0 - 34.0 pg [facility] MCHC (RBC) [Mass/Vol] 33.0 % 32.0 - 36.0 % [facility] MCV (RBC) [Entitic vol] 92.3 fL 80.0 - 98.0 fL [facility] Nucleated RBC/100 WBC (Bld) [Ratio] 0.1 % [facility] Platelet mean volume (Bld) [Entitic vol] 8.0 fL 7.4 - 12.4 fL [facility] Platelets (Bld) [#/Vol] 429 10*3/uL 140 - 440 10*3/uL [facility] RBC (Bld) [#/Vol] 4.59 10*6/uL 4.40 - 5.9 0 10*6/uL [facility] WBC (Bld) [#/Vol] 17.0 10*3/uL High 3.6 - 10.7 10*3/uL [facility] Comprehensive metabolic 1998 panelon 01-03-2023 Albumin [Mass/Vol] 3.9 g/dL 3.5 - 5.0 g/dL [facility] ALP [Catalytic activity/Vol] 49 U/L 38 - 126 U/L [facility] ALT [Catalytic activity/Vol] 14 U/L 0 - 49 U/L [facility] Anion gap [Moles/Vol] 5 mmol/L 3 - 13 mmol/L [facility] AST [Catalytic activity/Vol] 28 U/L 15 - 46 U/L [facility] Bilirubin [Mass/Vol] 0.6 mg/dL 0.2 - 1 .3 mg/dL [facility] Calcium [Mass/Vol] 9.8 mg/dL 8.4 - 10. 4 mg/dL [facility] Chloride [Moles/Vol] 103 mmol/L 98 - 10 7 mmol/L [facility] CO2 [Moles/Vol] 26 mmol/L 22 - 30 mmol/L [facility] Creatinine [Mass/Vol] 0.84 mg/dL 0.66 - 1.25 mg/dL [facility] GFR/1.73 sq M.predicted MDRD (S/P/Bld) [Vol rate/Area] 86.5 mL/min/{1.73_m2} - PINF [facility] Comment on above: Calculation based on the Chronic Kidney Disease Epidemiology Collaboration (CKD-EPI) equation refit without adjustment for race Glucose [Mass/Vol] 100 mg/dL 70 - 100 mg/dL [facility] Interpretation and review of laboratory results Abnormal [facility] Potassium [Moles/Vol] 4.0 mmol/L 3.5 - 5.1 mmol/L [facility] Protein [Mass/Vol] 6.5 g/dL 6.3 - 8.2 g/dL [facility] Sodium [Moles/Vol] 135 mmol/L 135 - 145 mmol/L [facility] Urea nitrogen [Mass/Vol] 29 mg/dL High 9 - 20 mg/dL [facility] Laboratory - Chemistry and C hemistry - challengeon 01-03-2023 Alpha 1 antitrypsin [Mass/Vol] 143 mg/dL 90 - 200 mg/dL [facility] Comment on above: To convert to umol/L , multiply mg/dL by 0.185 Performed By: [employer] [address] [place] [id number] Wharf Worker: Chelle Hewitt MD, PhD [place] Number: [id number] Manual differential performe d Ql (Bld)on 01-03-2023 Basophils (Bld) [#/Vol] 0.0 10*3/uL 0.0 - 0.2 10*3/uL [facility] [employer] Basophils Manual 0 [facility] alth Basophils/100 WBC (Bld) 0 % 0 - 2 % [facility] Cells Counted Total (Bld) [#] 99 {cells} [facility] [employer] Differential Method Automated differenti al reported after manual slide review [facility] [employer] Eosinophils (Bld) [#/Vol] 0.0 10*3/uL 0.0 - 0.5 10*3/uL [facility] [employer] Eosinophils Manual 0 0 - 1 [facility] [employer] Eosinophils/100 WBC (Bld) 0 % Low 1 - 6 % [facility] Leukocyte morphology finding Nom (Bld) Normal [facility] [employer] Lymphocytes (Bld) [#/Vol] 2.6 10*3/uL 1.0 - 4.3 10*3/uL [facility] [employer] Lymphocytes Manual 15 [facility] Lymphocytes/100 WBC (Bld) 15 % Low 20 - 40 % [facility] [employer] Monocytes (Bld) [#/Vol] 1.9 10*3/uL High 0.0 - 0.8 10*3/uL [facility] [employer] Monocytes Manual 11 [facility] Monocytes/100 WBC (Bld) 11 % High 2 - 10 % [facility] Neutrophils (Bld) [#/Vol] 12.5 10*3/uL High 1.8 - 7.0 10*3/uL [facility] [employer] Neutrophils Manual 73 [facility] [employer] Platelet morphology finding Nom (Bld) Normal [facility] [employer] RBC morphology finding Nom (Bld) Normal [facility] Segmented neutrophils/100 WBC (Bld) 74 % 40 - 80 % [facility] [employer] WBC corrected for nucl RBC (Bld) [#/Vol] 17.0 10*3/uL High 3.6 - 10.7 10*3/uL [facility] No Panel Informationon 01-03 [facility] [employer] Interpretation and review of laboratory results Abnormal [facility] [facility] US Retroperitoneumon 023 No hydronephrosis. Left-sided nephrolithiasis. Enlarged prostate. Report Dictated on Electronically Signed By: Dennise Canchola MD Electronically Signed Date/Time: 01/03/2023 12:33 PM EDT [facility] Patient Name: DOROTEO GONG : 1940 Exam Date/Time: 01/03/2023 12:25 Procedure: US RETROPERITONEAL Ordering Provider: VERNON MELISSA Reason For Exam: urinary retention Exam type: Ultrasound Renal Complete EXAM DATE AND TIME: 01/03/2023 12:25 PM EDT INDICATION: 82 years Male with urinary retention COMPARISON: Retroperitoneal ultrasound from 06/30/2021. Technique: Grayscale sonographic images were obtained of the kidneys and bladder. Color Doppler was utilized. FINDINGS: RIGHT KIDNEY: Size: 9.3 cm in craniocaudal dimension Echogenicity: Normal Parenchymal thickness: Normal Contour: Smooth Pelvicalyceal dilatation: Stable moderate fullness of the right extrarenal pelvis. No caliectasis. Calculus: none Mass: none Cyst: none LEFT KIDNEY: Size: 10.9 cm in craniocaudal dimension Echogenicity: Normal Parenchymal thickness: Normal Contour: Smooth Pelvicalyceal dilatation: Stable mild fullness of the left extrarenal pelvis. No caliectasis. Calculus: Nonobstructing left renal calculi, measuring up to 4 mm. Mass: none Cyst: none Bladder: Incompletely distended. Schwartz catheter within the bladder lumen. No definite bladder filling defect. The prostate bulges into the base of the urinary bladder. Prostate measures 5.3 x 3.8 x 3.9 cm. [facility] Dennise Canchola M D - 01/03/2023 Patient Name: DOROTEO GONG : 1940 Exam Date/Time: 01/03/2023 12:25 Procedure: US RETROPERITONEAL Ordering Provider: VERNON MELISSA Reason For Exam: urinary retention Exam type: Ultrasound Renal Complete EXAM DATE AND TIME: 01/03/2023 12:25 PM EDT INDICATION: 82 years Male with urinary retention COMPARISON: Retroperitoneal ultrasound from 06/30/2021. Technique: Grayscale sonographic images were obtained of the kidneys and bladder. Color Doppler was utilized. FINDINGS: RIGHT KIDNEY: Size: 9.3 cm in craniocaudal dimension Echogenicity: Normal Parenchymal thickness: Normal Contour: Smooth Pelvicalyceal dilatation: Stable moderate fullness of the right extrarenal pelvis. No caliectasis. Calculus: none Mass: none Cyst: none LEFT KIDNEY: Size: 10.9 cm in craniocaudal dimension Echogenicity: Normal Parenchymal thickness: Normal Contour: Smooth Pelvicalyceal dilatation: Stable mild fullness of the left extrarenal pelvis. No caliectasis. Calculus: Nonobstructing left renal calculi, measuring up to 4 mm. Mass: none Cyst: none Bladder: Incompletely distended. Schwartz catheter within the bladder lumen. No definite bladder filling defect. The prostate bulges into the base of the urinary bladder. Prostate measures 5.3 x 3.8 x 3.9 cm. IMPRESSION: No hydronephrosis. Left-sided nephrolithiasis. Enlarged prostate. Report Dictated on Electronically Signed By: Dennise Canchola MD Electronically Signed Date/Time: 01/03/2023 12:33 PM EDT [facility] Radiology Study observation (narrative) [facility]th US RetroperitoneumOrdered By : Dennise Canchola on 01-03-2023 [facility] [employer] Work Phone: Bacteria identified Aer cx N om (Lower resp)Ordered By: Ricardo Fleming on 01-02-2023 Gram Stain Result Moderate Epithelial cells per low power field Abnormal [facility] Gram Stain Result Few Polymorphonuclea r leukocytes per low power field Abnormal [facility] Gram Stain Result Positive Abnormal [facility] ealth Gram Stain Result Negative Abnormal [facility] ealt Gram Stain Result Smear contains >= 15 squamous cells per low power field, suggestive of poor quality. Culture not performed. Please re-collect if clinically indicated. Abnormal [facility] Interpretation and review of laboratory results Abnormal [facility] CBC W Auto Differential pane l (Bld)Ordered By: Anni Llanes on 01-02-2023 Basophils (Bld) [#/Vol] 0.1 10*3/uL 0.0 - 0.2 10*3/uL [facility] Basophils/100 WBC (Bld) 0.3 % 0.0 - 2.0 % [facility] Eosinophils (Bld) [#/Vol] 0.0 10*3/uL 0.0 - 0.5 10*3/uL [facility] Eosinophils/100 WBC (Bld) 0.0 % Low 1.0 - 6.0 % [facility] Erythrocyte distribution width (RBC) [Ratio] 13.8 % 11.5 - 14.5 % [facility] Hematocrit (Bld) [Volume fraction] 41.1 % 40.0 - 52.0 % [facility] Hemoglobin (Bld) [Mass/Vol] 13.9 g/dL 13.0 - 18.0 g/dL [facility] Interpretation and review of laboratory results Abnormal [facility] Lymphocytes (Bld) [#/Vol] 1.0 10*3/uL 1.0 - 4.3 10*3/uL [facility] Lymphocytes/100 WBC (Bld) 4.9 % Low 20.0 - 40.0 % [facility] MCH (RBC) [Entitic mass] 30.9 pg 26. 0 - 34.0 pg [facility] MCHC (RBC) [Mass/Vol] 33.8 % 32.0 - 36.0 % [facility] MCV (RBC) [Entitic vol] 91.4 fL 80.0 - 98.0 fL [facility] Monocytes (Bld) [#/Vol] 0.4 10*3/uL 0.0 - 0.8 10*3/uL [facility] Monocytes/100 WBC (Bld) 2.2 % 2.0 - 10.0 % [facility] Neutrophils (Bld) [#/Vol] 18.8 10*3/uL High 1.8 - 7.0 10*3/uL [facility] Neutrophils/100 WBC (Bld) 92.6 % High 40.0 - 80.0 % [facility] Nucleated RBC/100 WBC (Bld) [Ratio] 0.0 % [facility] Platelet mean volume (Bld) [Entitic vol] 7.5 fL 7.4 - 12.4 fL [facility] Platelets (Bld) [#/Vol] 437 10*3/uL 140 - 440 10*3/uL [facility] RBC (Bld) [#/Vol] 4.50 10*6/uL 4.40 - 5.9 0 10*6/uL [facility] WBC (Bld) [#/Vol] 20.3 10*3/uL High 3.6 - 10.7 10*3/uL [facility] Comprehensive metabolic 1998 panelon 01-02-2023 Albumin [Mass/Vol] 4.1 g/dL 3.5 - 5.0 g/dL [facility] ALP [Catalytic activity/Vol] 50 U/L 38 - 126 U/L [facility] ALT [Catalytic activity/Vol] 14 U/L 0 - 49 U/L [facility] Anion gap [Moles/Vol] 10 mmol/L 3 - 13 mmol/L [facility] AST [Catalytic activity/Vol] 21 U/L 15 - 46 U/L [facility] Bilirubin [Mass/Vol] 0.2 mg/dL 0.2 - 1 .3 mg/dL [facility] Calcium [Mass/Vol] 10.0 mg/dL 8.4 - 10. 4 mg/dL [facility] Chloride [Moles/Vol] 104 mmol/L 98 - 10 7 mmol/L [facility] CO2 [Moles/Vol] 24 mmol/L 22 - 30 mmol/L [facility] Creatinine [Mass/Vol] 0.82 mg/dL 0.66 - 1.25 mg/dL [facility] GFR/1.73 sq M.predicted MDRD (S/P/Bld) [Vol rate/Area] 87.2 mL/min/{1.73_m2} [facility] Comment on above: Calculation based on the Chronic Kidney Disease Epidemiology Collaboration (CKD-EPI) equation refit without adjustment for race Glucose [Mass/Vol] 161 mg/dL High 70 - 100 mg/dL [facility] Interpretation and review of laboratory results Abnormal [facility] Potassium [Moles/Vol] 4.5 mmol/L 3.5 - 5.1 mmol/L [facility] Protein [Mass/Vol] 6.8 g/dL 6.3 - 8.2 g/dL [facility] Sodium [Moles/Vol] 138 mmol/L 135 - 145 mmol/L [facility] Urea nitrogen [Mass/Vol] 22 mg/dL High 9 - 20 mg/dL [facility] - Microbiology an d Antimicrobial susceptibilityOrdered By: Ricardo Fleming on 01-02-2023 Bacteria identified Aer cx Nom (Lower resp) Culture canceled due to poor specimen quality. Recollect if clinically indicated. [facility] Urinalysis complete panel (U )Ordered By: Kathy Shah on 01-02-2023 Bacteria LM.HPF (Urine sed) [#/Area] Negative Negative /HPF [facility] Bilirubin Ql (U) Negative Negative mg/dL [facility] Clarity (U) Clear Clear [facility] Color (U) Light Yellow Lt. Yellow [facility] Epithelial cells.squamous LM.HPF (Urine sed) [#/Area] Negative [facility] h Glucose Ql (U) Normal Normal (<70) mg/dL [facility] Hemoglobin Ql (U) >1.0 Abnormal Negative mg/dL [facility] Hyaline casts Auto (Urine sed) [#/Area] 0-2 Abnormal Negative /LPF [facility] Interpretation and review of laboratory results Abnormal [facility] Ketones (U) [Mass/Vol] Negative Negat stephen mg/dL [facility] Leukocyte esterase Test strip Ql (U) 25 Abnormal Negative Pennie/uL [facility] Mucus LM.HPF (Urine sed) [#/Area] Few Negative /LPF [facility] Nitrite Ql (U) Negative Negative [facility] th pH (U) 6.0 [pH] 5.0 - 8.0 pH [facility] Protein (U) [Mass/Vol] Negative Negat stephen mg/dL [facility] RBC LM.HPF (Urine sed) [#/Area] 26-50 Abnormal [facility] Specific gravity (U) [Rel density] 1.010 1.005 - 1.030 [facility] Urobilinogen (U) [Mass/Vol] Normal Normal (0-1) mg/dL [facility] WBC LM.HPF (Urine sed) [#/Area] 6-10 Abnormal [facility] CBC W Auto Differential pane l (Bld)Ordered By: Zechariah Francis on 01-01-2023 Basophils (Bld) [#/Vol] 0.0 10*3/uL 0.0 - 0.2 10*3/uL [facility] Basophils/100 WBC (Bld) 0.5 % 0.0 - 2.0 % [facility] Eosinophils (Bld) [#/Vol] 0.0 10*3/uL 0.0 - 0.5 10*3/uL [facility] Eosinophils/100 WBC (Bld) 0.0 % Low 1.0 - 6.0 % [facility] Erythrocyte distribution width (RBC) [Ratio] 13.7 % 11.5 - 14.5 % [facility] Hematocrit (Bld) [Volume fraction] 42.6 % 40.0 - 52.0 % [facility] Hemoglobin (Bld) [Mass/Vol] 14.4 g/dL 13.0 - 18.0 g/dL [facility] Interpretation and review of laboratory results Abnormal [facility] Lymphocytes (Bld) [#/Vol] 0.6 10*3/uL Low 1.0 - 4.3 10*3/uL [facility] Lymphocytes/100 WBC (Bld) 9.3 % Low 20.0 - 40.0 % [facility] MCH (RBC) [Entitic mass] 30.9 pg 26. 0 - 34.0 pg [facility] MCHC (RBC) [Mass/Vol] 33.8 % 32.0 - 36.0 % [facility] MCV (RBC) [Entitic vol] 91.5 fL 80.0 - 98.0 fL [facility] Monocytes (Bld) [#/Vol] 0.1 10*3/uL 0.0 - 0.8 10*3/uL [facility] Monocytes/100 WBC (Bld) 1.1 % Low 2.0 - 10.0 % [facility] Neutrophils (Bld) [#/Vol] 6.1 10*3/uL 1.8 - 7.0 10*3/uL [facility] Neutrophils/100 WBC (Bld) 89.1 % High 40.0 - 80.0 % [facility] Nucleated RBC/100 WBC (Bld) [Ratio] 0.0 % [facility] Platelet mean volume (Bld) [Entitic vol] 7.8 fL 7.4 - 12.4 fL [facility] Platelets (Bld) [#/Vol] 423 10*3/uL 140 - 440 10*3/uL [facility] RBC (Bld) [#/Vol] 4.66 10*6/uL 4.40 - 5.9 0 10*6/uL [facility] WBC (Bld) [#/Vol] 6.8 10*3/uL 3.6 - 10.7 10*3/uL [facility] Comprehensive metabolic 1998 panelOrdered By: Valery Claros on 01-01-2023 Albumin [Mass/Vol] 4.4 g/dL 3.5 - 5.0 g/dL [facility] ALP [Catalytic activity/Vol] 48 U/L 38 - 126 U/L [facility] ALT [Catalytic activity/Vol] 17 U/L 0 - 49 U/L [facility] Anion gap [Moles/Vol] 12 mmol/L 3 - 13 mmol/L [facility] AST [Catalytic activity/Vol] 29 U/L 15 - 46 U/L [facility] Bilirubin [Mass/Vol] 0.5 mg/dL 0.2 - 1 .3 mg/dL [facility] Calcium [Mass/Vol] 9.9 mg/dL 8.4 - 10. 4 mg/dL [facility] Chloride [Moles/Vol] 103 mmol/L 98 - 10 7 mmol/L [facility] CO2 [Moles/Vol] 22 mmol/L 22 - 30 mmol/L [facility] Creatinine [Mass/Vol] 0.71 mg/dL 0.66 - 1.25 mg/dL [facility] GFR/1.73 sq M.predicted MDRD (S/P/Bld) [Vol rate/Area] - PINF [facility] Comment on above: Calculation based on the Chronic Kidney Disease Epidemiology Collaboration (CKD-EPI) equation refit without adjustment for race Glucose [Mass/Vol] 149 mg/dL High 70 - 100 mg/dL [facility] Interpretation and review of laboratory results Abnormal [facility] Potassium [Moles/Vol] 4.7 mmol/L 3.5 - 5.1 mmol/L [facility] Protein [Mass/Vol] 7.1 g/dL 6.3 - 8.2 g/dL [facility] Sodium [Moles/Vol] 137 mmol/L 135 - 145 mmol/L [facility] Urea nitrogen [Mass/Vol] 12 mg/dL 9 - 20 mg/dL [facility] No Panel Informationon 01-01 No evidence of deep vein and superficial thrombosis in the right lower extremity. No evidence of deep vein or superficial vein thrombosis in the left lower extremity. Vessels demonstrate normal compressibility, color filling, and phasic and spontaneous flow. Right Lower Venous No evidence of deep vein and superficial thrombosis in the right lower extremity. Common Femoral Vein: Continuous flow and fully compressible. Greater Saphenous Vein: Fully compressible. Small Saphenous Vein: Fully compressible. Proximal Femoral Vein: Fully compressible. Middle Femoral Vein: Continuous flow and fully compressible. Distal Femoral Vein: Fully compressible. Popliteal Vein: Continuous flow and fully compressible. Gastrocnemius Vein: Fully compressible. Soleal Vein: Fully compressible. Posterior Tibial Vein: Fully compressible. Peroneal Vein: Fully compressible. Left Lower Venous No evidence of deep vein or superficial vein thrombosis. The common femoral, saphenofemoral junction, femoral, popliteal, gastrocnemius, soleal, greater saphenous, posterior tibial, and peroneal veins were imaged in the transverse view and showed normal compressibility. The common femoral, middle femoral, and popliteal veins were imaged in the longitudinal view and showed normal color filling and normal phasic and spontaneous flow. [employer] Details A boyd scale, color Doppler imaging and spectral Doppler analysis ultrasound was performed. During the study longitudinal and transverse views were obtained. Pulsed wave doppler was performed. The exam was performed with the patient in the supine position. Overall the study quality was good. CV CPA Comprehensive metabolic 1998 panelon 12-31-2022 Albumin [Mass/Vol] 3.6 g/dL 3.5 - 5.0 g/dL [facility] ALP [Catalytic activity/Vol] 37 U/L Low 38 - 126 U/L [facility] ALT [Catalytic activity/Vol] 12 U/L 0 - 49 U/L [facility] Anion gap [Moles/Vol] 6 mmol/L 3 - 13 mmol/L [facility] AST [Catalytic activity/Vol] 23 U/L 15 - 46 U/L [facility] Bilirubin [Mass/Vol] 0.4 mg/dL 0.2 - 1 .3 mg/dL [facility] Calcium [Mass/Vol] 8.9 mg/dL 8.4 - 10. 4 mg/dL [facility] Chloride [Moles/Vol] 108 mmol/L High 98 - 10 7 mmol/L [facility] CO2 [Moles/Vol] 26 mmol/L 22 - 30 mmol/L [facility] Creatinine [Mass/Vol] 0.56 mg/dL Low 0.66 - 1.25 mg/dL [facility] GFR/1.73 sq M.predicted MDRD (S/P/Bld) [Vol rate/Area] - PINF [facility] Comment on above: Calculation based on the Chronic Kidney Disease Epidemiology Collaboration (CKD-EPI) equation refit without adjustment for race Glucose [Mass/Vol] 86 mg/dL 70 - 100 mg/dL [facility] Interpretation and review of laboratory results Abnormal [facility] Potassium [Moles/Vol] 3.4 mmol/L Low 3.5 - 5.1 mmol/L [facility] Protein [Mass/Vol] 6.0 g/dL Low 6.3 - 8.2 g/dL [facility] Sodium [Moles/Vol] 140 mmol/L 135 - 145 mmol/L [facility] Urea nitrogen [Mass/Vol] 14 mg/dL 9 - 20 mg/dL [facility] Fibrin D-dimer FEU (PPP) [Ma ss/Vol]on 12-31-2022 Interpretation and review of laboratory results Normal [facility] D-Dimer values of <0.50 mg/L FEU can be used in combination with a pre-test probability model (e.g. Well's) to exclude pulmonary embolism (PE) disease, as well as an aid in the diagnosis of deep vein thrombosis (DVT). [facility] - Chemistry and C hemistry - challengeon 12-31-2022 Magnesium [Mass/Vol] 1.9 mg/dL 1.6 - 2 .3 mg/dL [facility] Troponin I.cardiac [Mass/Vol] ng/mL 0.000 - 0.034 ng/mL [facility] Troponin I.cardiac [Mass/Vol] ng/mL 0.000 - 0.034 ng/mL [facility] - Coagulationon 0 12-31-2022 Fibrin D-dimer FEU (PPP) [Mass/Vol] 0.47 mg/L NINF - 0.50 mg/L [facility] - Microbiology an d Antimicrobial susceptibilityon 12-31-2022 FLUAV RNA JANIE+probe Ql (Resp) Not detected Not Detected [facility] FLUBV RNA JANIE+probe Ql (Resp) Not detected Not Detected [facility] RSV RNA JANIE+probe Ql (Resp) Not detected Not Detected [facility] SARS-CoV-2 (COVID-19) RNA JANIE+probe Ql (Resp) Not detected Not Detected [facility] SARS-CoV-2 (COVID-19) RNA JANIE+probe Ql (Unsp spec) Methodology: real-time, RT-PCR The SARS-CoV-2, Flu A/B, and RSV Combo assay is intended for in vitro diagnostic use under the FDA Emergency Use Authorization (EUA). This test has not been FDA cleared or approved. In compliance with this authorization, please visit www.fda.gov/media/43255 5/download or www.fda.gov/media/02934 6/download to access the applicable information sheets. [employer] Magnesium [Mass/Vol]on 12-31 Interpretation and review of laboratory results Normal [facility] [employer] No Panel InformationOrdered By: Darlene Valiente on 12-31-2022 Interpretation and review of laboratory results Normal [facility] [employer] Legionella pneumophila Ag Not detected Not Detected [facility] [employer] Streptococcus pneumoniae Ag Not detected Not Detected [facility] [employer] Methodology: Lateral flow enzyme immunoassay This assay is approved for detection of antigens to Streptococcus pneumoniae and Legionella pneumophila serogroup 1; however, other L. pneumophila serogroups may also be detected. [facility] [employer] No Panel Informationon 12-31 Extra Tube Hold for add-ons. [facility] ealt Comment on above: Auto resulted. [facility] [employer] P [place] 2 degrees [facility] ID Interval 209 ms [facility] [employer] QRS [place] -77 degrees [facility] [employer] QRSD [facility]val [facility]val 432 ms [facility] [employer] QTC Interval 441 ms [facility] [employer] T Wave [place] -5 degrees [facility] Sinus rhythm RBBB and LAFB Compared to ECG 12/12/2022 23:46:27 No significant changes compared to 12/12/2022 Electronically Signed On 12-31-2022 0:48:46 EDT by Tara Ames MD - 12/31/2022 IMPRESSION: Sinus rhythm RBBB and LAFB Compared to ECG 12/12/2022 23:46:27 No significant changes compared to 12/12/2022 Electronically Signed On 12-31-2022 0:48:46 EDT by Tara Burns [facility] Respiratory pathogens DNA an d RNA panel JANIE+non-probe (Nph)on 12-31-2022 Adenovirus Not detected Not Detected [facility] B. pertussis DNA JANIE+probe Ql (Unsp spec) Not detected Not Detected [facility] Bordetella parapertussis Not detected Not Detected [facility] Chlamydia pneumoniae Not detected Not Detected [facility] Coronavirus 229E Not detected Not Detected [facility] Coronavirus HKU1 Not detected Not Detected [facility] Coronavirus NL63 Not detected Not Detected [facility] Coronavirus OC43 Not detected Not Detected [facility] FLUAV RNA JANIE+non-probe Ql (Nph) Not detected Not Detected [facility] FLUBV RNA JANIE+non-probe Ql (Nph) Not detected Not Detected [facility] Human Metapneumovirus Not detected Not Detected [facility] Human Rhinovirus/Enterovirus Not detected Not Detected [facility] Interpretation and review of laboratory results Normal [facility] Mycoplasma pneumoniae Not detected Not Detected [facility] Parainfluenza 1 Not detected Not Detected [facility] Parainfluenza 2 Not detected Not Detected [facility] Parainfluenza 3 Not detected Not Detected [facility] Parainfluenza 4 Not detected Not Detected [facility] Respiratory Syncytial Virus Not detected Not Detected [facility] SARS-CoV-2 (COVID-19) RNA JANIE+non-probe Ql (Nph) Not detected Not Detected [facility] Methodology: Multipl ex PCR [facility] SARS-CoV-2, Flu A/B, and RSV Comboon 12-31-2022 Interpretation and review of laboratory results Normal [facility] Troponin I.cardiac [Mass/Vol ]on 12-31-2022 Interpretation and review of laboratory results Normal [facility] Patients with high levels of Biotin oral intake (ie >5 mg/day) may have falsely decreased Troponin levels. [facility] Interpretation and review of laboratory results Normal [facility] Patients with high levels of Biotin oral intake (ie >5 mg/day) may have falsely decreased Troponin levels. [facility] Vital signson 12-31-2022 Heart rate 63 /min bpm [facility] XR Foot - left 2 Viewson Patient Name: DOROTEO GONG : 1940 Exam Date/Time: 12/31/2022 18:04 Procedure: XR FOOT 1-2 VIEWS LEFT Ordering Provider: ENCINAS MAHAVEER Reason For Exam: Foot pain, chronic, osseous injury suspected LEFT FOOT 2 VIEWS CLINICAL INDICATION: Foot pain, chronic, osseous injury suspected TECHNIQUE: 2 views of the left foot. COMPARISON: None. FINDINGS: Dorsiflexion and valgus angulation of great toe, which is superimposed on structures limit its visualization or evaluation. Underlying fracture not excluded. Diffuse osteopenia. No other acute fracture or dislocation. Degenerative change in the great toe MTP joint. Mild, diffuse dorsal soft tissue edema. Peripheral vascular calcifications noted. [facility] Michele Briseno MD - 12/31/2022 Patient Name: DOROTE[facility]ONG : 1940 [id number] Exam Date/Time: 12/31/2022 18:04 Procedure: XR FOOT 1-2 VIEWS LEFT Ordering Provider: ENCINAS MAHAVEER Reason For Exam: Foot pain, chronic, osseous injury suspected LEFT FOOT 2 VIEWS CLINICAL INDICATION: Foot pain, chronic, osseous injury suspected TECHNIQUE: 2 views of the left foot. COMPARISON: None. FINDINGS: Dorsiflexion and valgus angulation of great toe, which is superimposed on structures limit its visualization or evaluation. Underlying fracture not excluded. Diffuse osteopenia. No other acute fracture or dislocation. Degenerative change in the great toe MTP joint. Mild, diffuse dorsal soft tissue edema. Peripheral vascular calcifications noted. IMPRESSION: 1. Limited visualization or evaluation of great toe distal phalanx, as reported. Follow-up as indicated. 2. No other, acute osseous abnormality. 3. Degenerative change and soft tissue edema. Report Dictated on Electronically Signed By: Michele Briseno MD Electronically Signed Date/Time: 12/31/2022 6:48 PM EDT [facility] Radiology Study observation (narrative) [facility] frida Basic metabolic 1998 panelon 12-30-2022 Anion gap [Moles/Vol] 7 mmol/L 3 - 13 mmol/L [facility] Calcium [Mass/Vol] 9.7 mg/dL 8.4 - 10. 4 mg/dL [facility] Chloride [Moles/Vol] 105 mmol/L 98 - 10 7 mmol/L [facility] [employer] CO2 [Moles/Vol] 27 mmol/L 22 - 30 mmol/L [facility] [employer] Creatinine [Mass/Vol] 0.62 mg/dL Low 0.66 - 1.25 mg/dL [facility] GFR/1.73 sq M.predicted MDRD (S/P/Bld) [Vol rate/Area] - PINF [facility] Comment on above: Calculation based on the Chronic Kidney Disease Epidemiology Collaboration (CKD-EPI) equation refit without adjustment for race Glucose [Mass/Vol] 90 mg/dL 70 - 100 mg/dL [facility] Interpretation and review of laboratory results Abnormal [facility] Potassium [Moles/Vol] 4.1 mmol/L 3.5 - 5.1 mmol/L [facility] Sodium [Moles/Vol] 139 mmol/L 135 - 145 mmol/L [facility] Urea nitrogen [Mass/Vol] 18 mg/dL 9 - 20 mg/dL [facility] CBC W Auto Differential pane l (Bld)Ordered By: Natalya Lucas on 12-30-2022 Basophils (Bld) [#/Vol] 0.1 10*3/uL 0.0 - 0.2 10*3/uL [facility] Basophils/100 WBC (Bld) 1.2 % 0.0 - 2.0 % [facility] Eosinophils (Bld) [#/Vol] 0.5 10*3/uL 0.0 - 0.5 10*3/uL [facility] Eosinophils/100 WBC (Bld) 6.5 % High 1.0 - 6.0 % [facility] Erythrocyte distribution width (RBC) [Ratio] 13.7 % 11.5 - 14.5 % [facility] Hematocrit (Bld) [Volume fraction] 42.5 % 40.0 - 52.0 % [facility] Hemoglobin (Bld) [Mass/Vol] 14.7 g/dL 13.0 - 18.0 g/dL [facility] Interpretation and review of laboratory results Abnormal [facility] Lymphocytes (Bld) [#/Vol] 2.6 10*3/uL 1.0 - 4.3 10*3/uL [facility] Lymphocytes/100 WBC (Bld) 31.0 % 20.0 - 40.0 % [facility] MCH (RBC) [Entitic mass] 31.6 pg 26. 0 - 34.0 pg [facility] MCHC (RBC) [Mass/Vol] 34.6 % 32.0 - 36.0 % [facility] MCV (RBC) [Entitic vol] 91.4 fL 80.0 - 98.0 fL [facility] Monocytes (Bld) [#/Vol] 0.9 10*3/uL High 0.0 - 0.8 10*3/uL [facility] Monocytes/100 WBC (Bld) 10.6 % High 2.0 - 10.0 % [facility] Neutrophils (Bld) [#/Vol] 4.2 10*3/uL 1.8 - 7.0 10*3/uL [facility] Neutrophils/100 WBC (Bld) 50.7 % 40.0 - 80.0 % [facility] Nucleated RBC/100 WBC (Bld) [Ratio] 0.1 % [facility] Platelet mean volume (Bld) [Entitic vol] 7.7 fL 7.4 - 12.4 fL [facility] Platelets (Bld) [#/Vol] 427 10*3/uL 140 - 440 10*3/uL [facility] RBC (Bld) [#/Vol] 4.65 10*6/uL 4.40 - 5.9 0 10*6/uL [facility] WBC (Bld) [#/Vol] 8.3 10*3/uL 3.6 - 10.7 10*3/uL [facility] - Chemistry and C hemistry - challengeon 12-30-2022 Troponin I.cardiac [Mass/Vol] ng/mL 0.000 - 0.034 ng/mL [facility] Magnesium [Mass/Vol] 2.1 mg/dL 1.6 - 2 .3 mg/dL [facility] Magnesium [Mass/Vol]on 12-30 Interpretation and review of laboratory results Normal [facility] Natriuretic peptide B [Mass/ Vol]on 12-30-2022 Natriuretic peptide B (Bld) [Mass/Vol] 260 pg/mL <20 - 300 [facility] No Panel Informationon 12-30 Interpretation and review of laboratory results Normal [facility] Troponin I.cardiac [Mass/Vol ]on 12-30-2022 Patients with high levels of Biotin oral intake (ie >5 mg/day) may have falsely decreased Troponin levels. [facility] XR Chest Single viewon 12-30 1. No acute findings. Report Dictated on Electronically Signed By: Michele Briseno MD Electronically Signed Date/Time: 12/30/2022 10:45 PM EDT [facility] Patient Name: DOROTEO GONG : 1940 Exam Date/Time: 12/30/2022 22:44 Procedure: XR CHEST 1 VIEW Ordering Provider: FRAZIER PRISCA Reason For Exam: sob CHEST PORTABLE CLINICAL INDICATION: sob TECHNIQUE: Portable chest x-ray(s). COMPARISON: November,. FINDINGS: Cardiac and mediastinal silhouette within normal limits. Tortuous thoracic aorta again noted. Lungs are grossly clear. No significant vascular congestion. No apparent pneumothorax. Degenerative change again noted in the thoracic spine. [facility] Michele Briseno MD - 12/30/2022 Patient Name: DOROTEO GONG : 1940 Exam Date/Time: 12/30/2022 22:44 Procedure: XR CHEST 1 VIEW Ordering Provider: FRAIZER PRISCA Reason For Exam: sob CHEST PORTABLE CLINICAL INDICATION: sob TECHNIQUE: Portable chest x-ray(s). COMPARISON: November,. FINDINGS: Cardiac and mediastinal silhouette within normal limits. Tortuous thoracic aorta again noted. Lungs are grossly clear. No significant vascular congestion. No apparent pneumothorax. Degenerative change again noted in the thoracic spine. IMPRESSION: 1. No acute findings. Report Dictated on Electronically Signed By: Michele Briseno MD Electronically Signed Date/Time: 12/30/2022 10:45 PM EDT [facility] Radiology Study observation (narrative) [facility] XR Chest Single viewOrdered By: Michele Briseno on 12-30-2022 [facility] [employer] Work Phone: Idris 12-25-2022 [facility] Telephone ([facility]) DOROTEO GONG ([id number]) 1940 M Date Time Provider Department 12/25/22 ROOPA MADERA [facility] During your visit today, we recorded the following information about you: Riri Otto 12/25/2022 10:24 AM Signed Pt called requesting a return call. He has three issues/concerns. 1) Medicine discussion 2) At home physical therapy 3) And what vaccines is he due for Pt's phone number is: [phone] Roopa Bingham MD 12/25/2022 11:08 AM Signed Please call patient to obtain more information. I did review his chart and I would recommend in addition to a flu shot this year that he get the latest COVID booster that is going to be coming out in a few weeks and an updated pneumonia shot called Prevnar 20. Riri Otto 12/25/2022 2:40 PM Signed Called pt back. He was a little more forthcoming this time around. 1) Medicine discussion Side effect to the tramadol. He normally doesn't take it before bedtime. He woke up foggy minded AND dizzy - a little surreal feeling. It took several hours to wear off. It only has happened once, but really concerned him. 2) Pt has an appt with a [facility] surgeon in two weeks to discuss hip/knee surgeries. He is not walking well. He is requesting help at home as he feels he is loosing ground. So physical therapy or any type of assistance would be helpful. 3) Advised him to go to the pharmacy to get the recommending shots due to his insurance. Roopa Bingham MD 12/25/2022 3:[address] order for home health visit to assess for physical therapy. Diagnosis DJD knees DJD hips Adele Landa MA 12/25/2022 4:19 PM Signed Order placed SID Naik Nicole, MA 12/26/2022 11:27 AM Signed Spoke with patiet: All info and demo sheet and orders/office notes [facility] (P) [phone] (F) [phone] He didn't have anything to write info down- he said he will call back if he doesn't hear anything or wants the info Adele Landa CMA Allergies As of Date: 12/25/2022 Noted Allergy Reaction ALLOPURINOL 07/08/2013 16 - Unknown DOXYCYCLINE 11/13/2012 16 - Unknown ERYTHROMYCIN 11/13/2012 16 - Unknown MINOCYCLINE 07/08/2013 16 - Unknown PENICILLINS 11/13/2012 16 - Unknown SULFACETAMIDE 09/02/2014 16 - Unknown TETRACYCLINE 11/13/2012 16 - Unknown LEVAQUIN (LEVOFLOXACIN) 09/30/2020 14 - Other: See Comments Comments: jittery ZOCOR (SIMVASTATIN) 09/30/2020 2 - Rash 9 - Itching CIPROFLOXACIN 05/26/2019 16 - Unknown PAXIL (PAROXETINE) 09/30/2020 14 - Other: See Comments Comments: Fatigue SULFA (SULFONAMIDE ANTIBIOTICS) 07/26/2016 16 - Unknown Date Reviewed: 10/23/2022 Reviewed by: Adele Landa MA - Fully Assessed Reason for Visit: Patient Question [1267] Primary Visit Diagnosis:Osteoarthriti s of both knees, unspecified osteoarthritis type [M17.0] Other Visit Diagnosis:Osteoarthriti s of both hips, unspecified osteoarthritis type [M16.0] Order(s):CONSULT TO HOME HEALTH CARE [2583256] Order #: [id number]: 1 Prescriptions as of 12/26/2022 - simvastatin (ZOCOR) 20 mg tablet TAKE 1 TABLET BY MOUTH EVERY DAY - ipratropium bromide (ATROVENT) 42 mcg (0.06 %) nasal spray INHALE 2 SPRAYS INTO EACH NOSTRIL THREE TIMES DAILY - omeprazole (PRILOSEC) 20 mg capsule Take 1 capsule by mouth once daily. - levothyroxine (SYNTHROID) 50 mcg tablet TAKE 1 TABLET BY MOUTH EVERY DAY - albuterol HFA 90 mcg/actuation HFA Inhale 2 Puffs as instructed. Every 4 to 6 hours prn - CHLORPHENIRAMINE MALEATE ORAL Take 4 mg by mouth twice daily. - diclofenac (VOLTAREN ARTHRITIS PAIN) 1 % topical gel Apply 4 g to affected area four times daily. - ketoconazole (NIZORAL) 2 % shampoo Apply to affected area three times a week. - FLOVENT HFA 110 mcg/actuation inhaler Inhale 2 Puffs as instructed twice daily. - guaiFENesin 200 mg tablet GUAIFENESIN TABS as needed GUAIFENESIN TABS [id number] Anny Lloydloni 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 - acetaminophen 650 mg CR tablet Take 650 mg by mouth every 8 hours as needed. - mecobalamin (B12 ACTIVE ORAL) Take by mouth. - alfuzosin SR (UROXATRAL) 10 mg 24 hr tablet TAKE 1 TABLET EVERY DAY - albuterol (PROVENTIL) 2.5 mg /3 mL (0.083 %) nebulizer solution Use 3 mL via nebulizer every 6 hours as needed for wheezing/shortness of breath. 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 4 mg/dL [facility] [employer] Chloride [Moles/Vol] 105 mmol/L 98 - 10 7 mmol/L [facility] CO2 [Moles/Vol] 28 mmol/L 22 - 30 mmol/L [facility] Creatinine [Mass/Vol] 0.64 mg/dL Low 0.66 - 1.25 mg/dL [facility] GFR/1.73 sq M.predicted MDRD (S/P/Bld) [Vol rate/Area] - PINF [facility] Comment on above: Calculation based on the Chronic Kidney Disease Epidemiology Collaboration (CKD-EPI) equation refit without adjustment for race Glucose [Mass/Vol] 87 mg/dL 70 - 100 mg/dL [facility] Interpretation and review of laboratory results Abnormal [facility] Potassium [Moles/Vol] 3.7 mmol/L 3.5 - 5.1 mmol/L [facility] Sodium [Moles/Vol] 138 mmol/L 135 - 145 mmol/L [facility] Urea nitrogen [Mass/Vol] 21 mg/dL High 9 - 20 mg/dL [facility] CBC W Auto Differential pane l (Bld)Ordered By: Anni Llanes on 12-13-2022 Basophils (Bld) [#/Vol] 0.1 10*3/uL 0.0 - 0.2 10*3/uL [facility] Basophils/100 WBC (Bld) 1.2 % 0.0 - 2.0 % [facility] Eosinophils (Bld) [#/Vol] 0.4 10*3/uL 0.0 - 0.5 10*3/uL [facility] Eosinophils/100 WBC (Bld) 6.6 % High 1.0 - 6.0 % [facility] Erythrocyte distribution width (RBC) [Ratio] 13.5 % 11.5 - 14.5 % [facility] Hematocrit (Bld) [Volume fraction] 39.7 % Low 40.0 - 52.0 % [facility] Hemoglobin (Bld) [Mass/Vol] 13.5 g/dL 13.0 - 18.0 g/dL [facility] Interpretation and review of laboratory results Abnormal [facility] Lymphocytes (Bld) [#/Vol] 1.9 10*3/uL 1.0 - 4.3 10*3/uL [facility] Lymphocytes/100 WBC (Bld) 29.8 % 20.0 - 40.0 % [facility] MCH (RBC) [Entitic mass] 31.1 pg 26. 0 - 34.0 pg [facility] MCHC (RBC) [Mass/Vol] 33.9 % 32.0 - 36.0 % [facility] MCV (RBC) [Entitic vol] 91.7 fL 80.0 - 98.0 fL [facility] Monocytes (Bld) [#/Vol] 0.8 10*3/uL 0.0 - 0.8 10*3/uL [facility] Monocytes/100 WBC (Bld) 12.6 % High 2.0 - 10.0 % [facility] Neutrophils (Bld) [#/Vol] 3.2 10*3/uL 1.8 - 7.0 10*3/uL [facility] Neutrophils/100 WBC (Bld) 49.8 % 40.0 - 80.0 % [facility] Nucleated RBC/100 WBC (Bld) [Ratio] 0.1 % [facility] Platelet mean volume (Bld) [Entitic vol] 7.8 fL 7.4 - 12.4 fL [facility] Platelets (Bld) [#/Vol] 352 10*3/uL 140 - 440 10*3/uL [facility] RBC (Bld) [#/Vol] 4.33 10*6/uL Low 4.40 - 5.9 0 10*6/uL [facility] WBC (Bld) [#/Vol] 6.4 10*3/uL 3.6 - 10.7 10*3/uL [facility] ECG 12 leadOrdered By: Pierre Walden on 12-13-2022 Heart rate 67 /min bpm [facility] Work Phone: P [place] 9 degrees [facility] Work Phone: ID Interval 205 ms [facility] Work Phone: QRS [place] -69 degrees [facility] Work Phone: QRSD Interval [address] [facility] Work Phone: QT Interval 444 ms [facility] Work Phone: QTC Interval 469 ms [facility] Work Phone: T Wave [place] 9 degrees [facility] Work Phone: [facility] Work Phone: ECG 12 leadon 12-13-2022 Sinus rhythm RBBB Electronically Signed On 12-13-2022 7:54:53 EDT by Jaya Tanner, - 12/13/2022 IMPRESSION: Sinus rhythm RBBB Electronically Signed On 12-13-2022 7:54:53 EDT by Jaya Walden [facility] Troponin Ion 12-13-2022 Troponin I.cardiac [Mass/Vol] ng/mL 0.000 - 0.034 ng/mL [facility] Troponin I.cardiac [Mass/Vol ]on 12-13-2022 Interpretation and review of laboratory results Normal [facility] Patients with high levels of Biotin oral intake (ie >5 mg/day) may have falsely decreased Troponin levels. [facility] XR Chest Single viewon 12-13 No acute cardiopulmonary abnormality. Report Dictated on Electronically Signed By: Dennise Canchola MD Electronically Signed Date/Time: 12/13/2022 2:17 AM EDT [facility] Patient Name: DOROTEO GONG DOB: 1940 Exam Date/Time: 12/13/2022 00:25 Procedure: XR CHEST 1 VIEW Ordering Provider: DALY JOSHUA Reason For Exam: EXTREMITY WEAKNESS CHEST CLINICAL INDICATION: EXTREMITY WEAKNESS TECHNIQUE: AP portable chest COMPARISON: Chest radiograph from 03/21/2022 FINDINGS: SUPPORT DEVICES: None HEART AND MEDIASTINUM: Calcification of the thoracic aorta. Cardiac silhouette is normal in size. LUNGS AND PLEURA: No focal consolidation. No sizable pleural effusion . No pneumothorax is identified. OSSEOUS STRUCTURES: Degenerative change of the spine. Bilateral acromioclavicular joint DJD.. [facility] Dennise Canchola M D - 12/13/2022 Patient Name: DOROTEO GONG : 1940 Exam Date/Time: 12/13/2022 00:25 Procedure: XR CHEST 1 VIEW Ordering Provider: DALY JOSHUA Reason For Exam: EXTREMITY WEAKNESS CHEST CLINICAL INDICATION: EXTREMITY WEAKNESS TECHNIQUE: AP portable chest COMPARISON: Chest radiograph from 03/21/2022 FINDINGS: SUPPORT DEVICES: None HEART AND MEDIASTINUM: Calcification of the thoracic aorta. Cardiac silhouette is normal in size. LUNGS AND PLEURA: No focal consolidation. No sizable pleural effusion . No pneumothorax is identified. OSSEOUS STRUCTURES: Degenerative change of the spine. Bilateral acromioclavicular joint DJD.. IMPRESSION: No acute cardiopulmonary abnormality. Report Dictated on Electronically Signed By: Dennise Canchola MD Electronically Signed Date/Time: 12/13/2022 2:17 AM EDT [facility] Radiology [facility]narrative[facility] Single viewOrdered By: Dennise Canchola on 12-13-2022 [employer] Work Phone: CNPNon [facility] DOROTEO GONG ([id number]) 1940 M Date Time Provider Department 11/20/22 ROOPA MADERA [facility] During your visit today, we recorded the following information about you: Riri Otto 11/20/2022 10:46 AM Signed Pt called requesting a return call. He wants to discuss medication. Pt's phone number is: [phone] Roopa Bingham MD 11/20/2022 11:51 AM Signed Spoke with patient. He has noticed some tremor that he wondered if it was due to switching brands of omeprazole. I suggest that is probably more likely due to his albuterol. Allergies As of Date: 11/20/2022 Noted Allergy Reaction ALLOPURINOL 07/08/2013 16 - Unknown DOXYCYCLINE 11/13/2012 16 - Unknown ERYTHROMYCIN 11/13/2012 16 - Unknown MINOCYCLINE 07/08/2013 16 - Unknown PENICILLINS 11/13/2012 16 - Unknown SULFACETAMIDE 09/02/2014 16 - Unknown TETRACYCLINE 11/13/2012 16 - Unknown LEVAQUIN (LEVOFLOXACIN) 09/30/2020 14 - Other: See Comments Comments: prince JAMISON (SIMVASTATIN) 09/30/2020 2 - Rash 9 - Itching CIPROFLOXACIN 05/26/2019 16 - Unknown PAXIL (PAROXETINE) 09/30/2020 14 - Other: See Comments Comments: Fatigue SULFA (SULFONAMIDE ANTIBIOTICS) 07/26/2016 16 - Unknown Date Reviewed: 10/23/2022 Reviewed by: Adele Landa MA - Fully Assessed Reason for Visit: Patient Question [9427] Prescriptions as of 11/20/2022 - simvastatin (ZOCOR) 20 mg tablet TAKE 1 TABLET BY MOUTH EVERY DAY - omeprazole (PRILOSEC) 20 mg capsule Take 1 capsule by mouth once daily. - levothyroxine (SYNTHROID) 50 mcg tablet TAKE 1 TABLET BY MOUTH EVERY DAY - albuterol HFA 90 mcg/actuation HFA Inhale 2 Puffs as instructed. Every 4 to 6 hours prn - CHLORPHENIRAMINE MALEATE ORAL Take 4 mg by mouth twice daily. - diclofenac (VOLTAREN ARTHRITIS PAIN) 1 % topical gel Apply 4 g to affected area four times daily. - ketoconazole (NIZORAL) 2 % shampoo Apply to affected area three times a week. - FLOVENT HFA 110 mcg/actuation inhaler Inhale 2 Puffs as instructed twice daily. - guaiFENesin 200 mg tablet GUAIFENESIN TABS as needed GUAIFENESIN TABS [id number] 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 - ipratropium bromide (ATROVENT) 42 mcg (0.06 %) nasal spray 2 SPRAYS INTO EACH NOSTRIL THREE TIMES DAILY - acetaminophen 650 mg CR tablet Take 650 mg by mouth every 8 hours as needed. - mecobalamin (B12 ACTIVE ORAL) Take by mouth. - alfuzosin SR (UROXATRAL) 10 mg 24 hr tablet TAKE 1 TABLET EVERY DAY - albuterol (PROVENTIL) 2.5 mg /3 mL (0.083 %) nebulizer solution Use 3 mL via nebulizer every 6 hours as needed for wheezing/shortness of breath. - finasteride (PROSCAR) 5 mg tablet TAKE 1 TABLET BY MOUTH EVERY DAY Problem List As Of Date 11/20/2022 Noted Resolved Hypertrophy of prostate with urinary obstructio*08/02/2017 Upper respiratory tract infection due to influe*06/23/2019 UTI (urinary tract infection) [N39.0] 02/23/2022 Encounter Status:Closed by RIRI OTTO on 11/20/22 [facility] 11-08-2022 [facility] Telephone ([facility]) DOROTEO GONG ([id number]) 1940 M Date Time Provider Department 11/08/22 ROOPA MADERA [facility] During your visit today, we recorded the following information about you: Maximiliano Draper MA 11/08/2022 2:00 PM Signed Patient called stating that he was having some irregular heart beats. He felt it thumping like 1,2,3,4 ... 1,2,3,4. No other symptoms, his pulse ox is 94-97. He could not explain any other details to me. Explained Dr. Madera is out of the office. He called the cardiology department he had been to in the past. And they were no help to him. What to do? BREA Lindo Michael Alex, MD 11/08/2022 2:27 PM Signed Okay for appointment, however if he is experiencing any chest pain lightheadedness or shortness of breath, I would direct him to the ER Maximiliano Draper MA 11/08/2022 4:11 PM Signed Spoke to patient. He is not having any of those symptoms, but he did understand that he will need to go to ER if they do develop. He states symptoms come and go. If he can find a ride and someone to bring him he will try to get in. Maximiliano Draper MA Allergies As of Date: 11/08/2022 Noted Allergy Reaction ALLOPURINOL 07/08/2013 16 - Unknown DOXYCYCLINE 11/13/2012 16 - Unknown ERYTHROMYCIN 11/13/2012 16 - Unknown MINOCYCLINE 07/08/2013 16 - Unknown PENICILLINS 11/13/2012 16 - Unknown SULFACETAMIDE 09/02/2014 16 - Unknown TETRACYCLINE 11/13/2012 16 - Unknown LEVAQUIN (LEVOFLOXACIN) 09/30/2020 14 - Other: See Comments Comments: prnice PAIZCOR (SIMVASTATIN) 09/30/2020 2 - Rash 9 - Itching CIPROFLOXACIN 05/26/2019 16 - Unknown PAXIL (PAROXETINE) 09/30/2020 14 - Other: See Comments Comments: Fatigue SULFA (SULFONAMIDE ANTIBIOTICS) 07/26/2016 16 - Unknown Date Reviewed: 10/23/2022 Reviewed by: Adele Landa MA - Fully Assessed Reason for Visit: Patient Question [1477] Prescriptions as of 11/08/2022 - simvastatin (ZOCOR) 20 mg tablet TAKE 1 TABLET BY MOUTH EVERY DAY - omeprazole (PRILOSEC) 20 mg capsule Take 1 capsule by mouth once daily. - levothyroxine (SYNTHROID) 50 mcg tablet TAKE 1 TABLET BY MOUTH EVERY DAY - albuterol HFA 90 mcg/actuation HFA Inhale 2 Puffs as instructed. Every 4 to 6 hours prn - CHLORPHENIRAMINE MALEATE ORAL Take 4 mg by mouth twice daily. - diclofenac (VOLTAREN ARTHRITIS PAIN) 1 % topical gel Apply 4 g to affected area four times daily. - ketoconazole (NIZORAL) 2 % shampoo Apply to affected area three times a week. - FLOVENT HFA 110 mcg/actuation inhaler Inhale 2 Puffs as instructed twice daily. - guaiFENesin 200 mg tablet GUAIFENESIN TABS as needed GUAIFENESIN TABS [id number] 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 - ipratropium bromide (ATROVENT) 42 mcg (0.06 %) nasal spray 2 SPRAYS INTO EACH NOSTRIL THREE TIMES DAILY - acetaminophen 650 mg CR tablet Take 650 mg by mouth every 8 hours as needed. - mecobalamin (B12 ACTIVE ORAL) Take by mouth. - alfuzosin SR (UROXATRAL) 10 mg 24 hr tablet TAKE 1 TABLET EVERY DAY - albuterol (PROVENTIL) 2.5 mg /3 mL (0.083 %) nebulizer solution Use 3 mL via nebulizer every 6 hours as needed for wheezing/shortness of breath. 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 Gong is a 81 year old male who presents for chief complaint of some left hip left knee and right foot pain. The hip and knee pain is intermittent and previously diagnosed as osteoarthritis. The right toe pain is more recent and is on the medial aspect of the great toe. He does see a assembly machine tool setter for nail care. Review of Systems noncontributory PAST MEDICAL HISTORY Diagnosis Date Allergic rhinitis Anxiety and depression Arthritis Asthma B12 deficiency Elevated PSA Hiatal hernia Hyperlipidemia IBS (irritable bowel syndrome) Kidney stones RICKY (obstructive sleep apnea) Osteoarthritis of right hip Rosacea Thyroid condition PAST SURGICAL HISTORY Procedure Laterality Date CHOLECYSTECTOMY 2009 PAST SURGICAL HISTORY OF Sinus Surgery PAST SURGICAL HISTORY OF 2014,2018 Kidney Stones PAST SURGICAL HISTORY OF 2013 Back; Disc Removed PAST SURGICAL HISTORY OF 2013 Right Hip Replacement FAMILY HISTORY Problem Relation Age of Onset Hypothyroidism Other Social History Tobacco Use Smoking status: Never Passive exposure: Never Smokeless tobacco: Never Vaping Use Vaping Use: Never used Substance Use Topics Alcohol use: Never Drug use: Never Current Meds simvastatin (ZOCOR) 20 mg tablet TAKE 1 TABLET BY MOUTH EVERY DAY omeprazole (PRILOSEC) 20 mg capsule Take 1 capsule by mouth once daily. levothyroxine (SYNTHROID) 50 mcg tablet TAKE 1 TABLET BY MOUTH EVERY DAY albuterol HFA 90 mcg/actuation HFA Inhale 2 Puffs as instructed. Every 4 to 6 hours prn CHLORPHENIRAMINE MALEATE ORAL Take 4 mg by mouth twice daily. diclofenac (VOLTAREN ARTHRITIS PAIN) 1 % topical gel Apply 4 g to affected area four times daily. ketoconazole (NIZORAL) 2 % shampoo Apply to affected area three times a week. FLOVENT HFA 110 mcg/actuation inhaler Inhale 2 Puffs as instructed twice daily. guaiFENesin 200 mg tablet GUAIFENESIN TABS as needed GUAIFENESIN TABS [id number] 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 ipratropium bromide (ATROVENT) 42 mcg (0.06 %) nasal spray 2 SPRAYS INTO EACH NOSTRIL THREE TIMES DAILY acetaminophen 650 mg CR tablet Take 650 mg by mouth every 8 hours as needed. mecobalamin (B12 ACTIVE ORAL) Take by mouth. alfuzosin SR (UROXATRAL) 10 mg 24 hr tablet TAKE 1 TABLET EVERY DAY albuterol (PROVENTIL) 2.5 mg /3 mL (0.083 %) nebulizer solution Use 3 mL via nebulizer every 6 hours as needed for wheezing/shortness of breath. finasteride (PROSCAR) 5 mg tablet TAKE 1 TABLET BY MOUTH EVERY DAY BP 130/70 Pulse 71 Temp 98.4 Ht 5' 2 (1.58m) SpO2 96% Physical Exam Patient is afebrile and well-appearing. Examination of the right great toe reveals a very large callus with the posterior inferior aspect partially torn away from the underlying skin. PROCEDURE NOTE: With verbal informed consent we carefully shaved down the callus including the torn area until we got down to normal skin. We saw no evidence of underlying infection or purulence. Examination of the left knee reveals some tenderness and mild swelling but no warmth or erythema PROCEDURE NOTE: With verbal informed consent we injected 2 cc of Kenalog and 1 of lidocaine into the left knee using sterile anterolateral approach. The patient tolerated the procedure well No visits with results within 1 Day(s) from this visit. Latest known visit with results is: Office Visit on 03/18/2021 Component Date Value Ref Range Status Protein, Total 03/18/2021 6.7 6.3 - 8.0 g/dL Final Albumin 03/18/2021 4.4 3.9 - 4.9 g/dL Final Calcium, Total 03/18/2021 9.6 8.5 - 10.2 mg/dL Final Bilirubin, Total 03/18/2021 0.6 0.2 - 1.3 mg/dL Final Alkaline Phosphatase 03/18/2021 57 38 - 113 U/L Final AST 03/18/2021 23 14 - 40 U/L Final ALT 03/18/2021 22 10 - 54 U/L Final Glucose 03/18/2021 95 74 - 99 mg/dL Final The [place] [employer] (ADA) provides guidance for cutoff values for fasting glucose and random glucose. The ADA defines fasting as no caloric intake for at least 8 hours. Fasting plasma glucose results between 100 to 125 mg/dL indicate increased risk for diabetes (prediabetes). Fasting plasma glucose results greater than or equal to 126 mg/dL meet the criteria for diagnosis of diabetes. In the absence of unequivocal hyperglycemia, results should be confirmed by repeat testing. In a patient with classic symptoms of hyperglycemia or hyperglycemic crisis, random plasma glucose results greater than or equal to 200 mg/dL meet the criteria for diagnosis of diabetes. Re (more content not included)... Normal [facility] 09-08-2022 [facility] Telephone ([facility]) DOROTEO GONG ([id number]) 1940 M Date Time Provider Department 09/08/22 ROOPA MADERA [facility] During your visit today, we recorded the following information about you: iRri Otto 09/08/2022 1:16 PM Signed Pt knows Dr Madera out until September 12. This can wait until then. Pt called with an update on his arm as you requested. He advised his arm is much better. Riri Madera MD 09/11/2022 8:09 AM Signed Message reviewed. Roopa Madera MD Allergies As of Date: 09/08/2022 Noted Allergy Reaction ALLOPURINOL 07/08/2013 16 - Unknown DOXYCYCLINE 11/13/2012 16 - Unknown ERYTHROMYCIN 11/13/2012 16 - Unknown MINOCYCLINE 07/08/2013 16 - Unknown PENICILLINS 11/13/2012 16 - Unknown SULFACETAMIDE 09/02/2014 16 - Unknown TETRACYCLINE 11/13/2012 16 - Unknown LEVAQUIN (LEVOFLOXACIN) 09/30/2020 14 - Other: See Comments Comments: jittery ZOCOR (SIMVASTATIN) 09/30/2020 2 - Rash 9 - Itching CIPROFLOXACIN 05/26/2019 16 - Unknown PAXIL (PAROXETINE) 09/30/2020 14 - Other: See Comments Comments: Fatigue SULFA (SULFONAMIDE ANTIBIOTICS) 07/26/2016 16 - Unknown Date Reviewed: 07/31/2022 Reviewed by: Adele Landa MA - Fully Assessed Reason for Visit: Patient Update [1234] Prescriptions as of 09/18/2022 - simvastatin (ZOCOR) 20 mg tablet TAKE 1 TABLET BY MOUTH EVERY DAY - pantoprazole DR (PROTONIX) 40 mg tablet TAKE 1 TABLET BY MOUTH ONCE DAILY. 30 MINUTES BEFORE EATING. - levothyroxine (SYNTHROID) 50 mcg tablet TAKE 1 TABLET BY MOUTH EVERY DAY - albuterol HFA 90 mcg/actuation HFA Inhale 2 Puffs as instructed. Every 4 to 6 hours prn - CHLORPHENIRAMINE MALEATE ORAL Take 4 mg by mouth twice daily. - diclofenac (VOLTAREN ARTHRITIS PAIN) 1 % topical gel Apply 4 g to affected area four times daily. - ketoconazole (NIZORAL) 2 % shampoo Apply to affected area three times a week. - FLOVENT HFA 110 mcg/actuation inhaler Inhale 2 Puffs as instructed twice daily. - guaiFENesin 200 mg tablet GUAIFENESIN TABS as needed GUAIFENESIN TABS [id number] 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 - ipratropium bromide (ATROVENT) 42 mcg (0.06 %) nasal spray 2 SPRAYS INTO EACH NOSTRIL THREE TIMES DAILY - acetaminophen 650 mg CR tablet Take 650 mg by mouth every 8 hours as needed. - mecobalamin (B12 ACTIVE ORAL) Take by mouth. - alfuzosin SR (UROXATRAL) 10 mg 24 hr tablet TAKE 1 TABLET EVERY DAY - albuterol (PROVENTIL) 2.5 mg /3 mL (0.083 %) nebulizer solution Use 3 mL via nebulizer every 6 hours as needed for wheezing/shortness of breath. - finasteride (PROSCAR) 5 mg tablet TAKE 1 TABLET BY MOUTH EVERY DAY Problem List As Of Date 09/08/2022 Noted Resolved Hypertrophy of prostate with urinary obstructio*08/02/2017 Upper respiratory tract infection due to influe*06/23/2019 UTI (urinary tract infection) [N39.0] 02/23/2022 Encounter Status:Closed by RIRI OTTO on 09/18/22 [facility] 09-01-2022 [facility] Telephone ([facility]) DOROTEO GONG ([id number]) 1940 M Date Time Provider Department 09/01/22 ROOPA MADERA [facility] During your visit today, we recorded the following information about you: Kalyani Silveira 09/01/2022 11:42 AM Signed Patient called today. Reason for call: patient would like to speak to you he has some right arm pain , no SOB or other sx. He didn't pull it that he remembers tried to get more info. However he stated you know the right questions to ask to determine an idea of what is going on. Patient: Doroteo Gong Date of : 1940 (home) ALLERGIES Allergen Reactions Allopurinol Unknown Doxycycline Unknown Erythromycin Unknown Minocycline Unknown Penicillins Unknown Sulfacetamide Unknown Tetracycline Unknown Levaquin [Levofloxa* Other: See Comments jittery Zocor [Simvastatin] Rash, Itching Ciprofloxacin Unknown Paxil [Paroxetine] Other: See Comments Fatigue Sulfa (Sulfonamide * Unknown Last Office Visit Date: 07/31/2022 Last [facility] Visit: Visit date not found Future Appointment: Visit date not found The patients preferred pharmacy has been captured for this encounter? not asked Kalyani Madera MD 09/01/2022 5:03 PM Signed Called patient to discuss he does have some pain with placing his hand behind his head or his hand behind the small of his back. No history of trauma. We will treat him as a possible rotator cuff tendinitis 2 Aleve twice daily with food watch for GI upset call in a week either way. Allergies As of Date: 09/01/2022 Noted Allergy Reaction ALLOPURINOL 07/08/2013 16 - Unknown DOXYCYCLINE 11/13/2012 16 - Unknown ERYTHROMYCIN 11/13/2012 16 - Unknown MINOCYCLINE 07/08/2013 16 - Unknown PENICILLINS 11/13/2012 16 - Unknown SULFACETAMIDE 09/02/2014 16 - Unknown TETRACYCLINE 11/13/2012 16 - Unknown LEVAQUIN (LEVOFLOXACIN) 09/30/2020 14 - Other: See Comments Comments: jittery ZOCOR (SIMVASTATIN) 09/30/2020 2 - Rash 9 - Itching CIPROFLOXACIN 05/26/2019 16 - Unknown PAXIL (PAROXETINE) 09/30/2020 14 - Other: See Comments Comments: Fatigue SULFA (SULFONAMIDE ANTIBIOTICS) 07/26/2016 16 - Unknown Date Reviewed: 07/31/2022 Reviewed by: Adele Landa MA - Fully Assessed Reason for Visit: Patient Question [8497] Prescriptions as of 09/05/2022 - simvastatin (ZOCOR) 20 mg tablet TAKE 1 TABLET BY MOUTH EVERY DAY - pantoprazole DR (PROTONIX) 40 mg tablet TAKE 1 TABLET BY MOUTH ONCE DAILY. 30 MINUTES BEFORE EATING. - levothyroxine (SYNTHROID) 50 mcg tablet TAKE 1 TABLET BY MOUTH EVERY DAY - albuterol HFA 90 mcg/actuation HFA Inhale 2 Puffs as instructed. Every 4 to 6 hours prn - CHLORPHENIRAMINE MALEATE ORAL Take 4 mg by mouth twice daily. - diclofenac (VOLTAREN ARTHRITIS PAIN) 1 % topical gel Apply 4 g to affected area four times daily. - ketoconazole (NIZORAL) 2 % shampoo Apply to affected area three times a week. - FLOVENT HFA 110 mcg/actuation inhaler Inhale 2 Puffs as instructed twice daily. - guaiFENesin 200 mg tablet GUAIFENESIN TABS as needed GUAIFENESIN TABS [id number] 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 - ipratropium bromide (ATROVENT) 42 mcg (0.06 %) nasal spray 2 SPRAYS INTO EACH NOSTRIL THREE TIMES DAILY - acetaminophen 650 mg CR tablet Take 650 mg by mouth every 8 hours as needed. - mecobalamin (B12 ACTIVE ORAL) Take by mouth. - alfuzosin SR (UROXATRAL) 10 mg 24 hr tablet TAKE 1 TABLET EVERY DAY - albuterol (PROVENTIL) 2.5 mg /3 mL (0.083 %) nebulizer solution Use 3 mL via nebulizer every 6 hours as needed for wheezing/shortness of breath. - finasteride (PROSCAR) 5 mg tablet TAKE 1 TABLET BY MOUTH EVERY DAY Problem List As Of Date 09/01/2022 Noted Resolved Hypertrophy of prostate with urinary obstructio*08/02/2017 Upper respiratory tract infection due to influe*06/23/2019 UTI (urinary tract infection) [N39.0] 02/23/2022 Encounter Status:Closed by KALYANI SILVEIRA on 09/05/[address] [facility] [address] Chest WO contraston 07-11 Addendum by Roger Villalta MD on 07/14/2022 3:50 PM EDT Patient Name: DOROTEO GONG : 1940 Exam Date/Time: 07/07/2022 12:20 Procedure: CT CHEST WO IV CONTRAST Ordering Provider: MADERA DAVID Reason For Exam: interstitial lung disease ADDENDUM #1 Additional prone images are now acquired. No dependent pulmonary changes are appreciated. No change from the previous report. Report Dictated on Electronically Signed By: Roger Villalta Electronically Signed Date/Time: 07/14/2022 3:50 PM EDT ORIGINAL REPORT CLINICAL INFORMATION: Shortness of breath. Interstitial lung disease. 1 mm cuts are obtained through the chest without IV contrast. Dose reduction was employed with automated exposure control. The examination is compared to a previous study dated 10/08/2020. FINDINGS: Mild emphysematous changes are noted diffusely. Subpleural fibrosis is evident in both lung bases, slightly more pronounced on the left than that seen on the right. The pattern is unchanged. There are no focal infiltrates. There are no pathologic pulmonary nodules. The heart size is normal. 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 This courses posterior to both the trachea and esophagus. The pulmonary arteries are enlarged consistent with chronic pulmonary hypertension. There is no significant mediastinal lymphadenopathy. Stable hepatic cysts are present. Upper cuts of the abdomen included on the examination are otherwise grossly normal on this unenhanced scan. IMPRESSION: 1. COPD is evidence of chronic pulmonary hypertension. 2. 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 3. No pathologic pulmonary nodules. Report Dictated on Electronically Signed By: Roger Villalta Electronically Signed Date/Time: 07/11/2022 4:08 PM T [facility] [employer] 1. COPD is evidence of chronic pulmonary hypertension. 2. 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 3. No pathologic pulmonary nodules. Report Dictated on Electronically Signed By: Roger Villalta Electronically Signed Date/Time: 07/11/2022 4:08 PM [facility] [employer] RADIOLOGY SYSTEM Patient Name: DOROTEO GONG : 1940 Exam Date/Time: 07/07/2022 12:20 Procedure: CT CHEST WO IV CONTRAST Ordering Provider: MADERA DAVID Reason For Exam: interstitial lung disease CLINICAL INFORMATION: Shortness of breath. Interstitial lung disease. 1 mm cuts are obtained through the chest without IV contrast. Dose reduction was employed with automated exposure control. The examination is compared to a previous study dated 10/08/2020. FINDINGS: Mild emphysematous changes are noted diffusely. Subpleural fibrosis is evident in both lung bases, slightly more pronounced on the left than that seen on the right. The pattern is unchanged. There are no focal infiltrates. There are no pathologic pulmonary nodules. The heart size is normal. 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 This courses posterior to both the trachea and esophagus. The pulmonary arteries are enlarged consistent with chronic pulmonary hypertension. There is no significant mediastinal lymphadenopathy. Stable hepatic cysts are present. Upper cuts of the abdomen included on the examination are otherwise grossly normal on this unenhanced scan. [facility] Roger Villalta MD - 07/11/2022 Patient Name: DOROTEO GONG : 1940 Exam Date/Time: 07/07/2022 12:20 Procedure: CT CHEST WO IV CONTRAST Ordering Provider: MADERA DAVID Reason For Exam: interstitial lung disease CLINICAL INFORMATION: Shortness of breath. Interstitial lung disease. 1 mm cuts are obtained through the chest without IV contrast. Dose reduction was employed with automated exposure control. The examination is compared to a previous study dated 10/08/2020. FINDINGS: Mild emphysematous changes are noted diffusely. Subpleural fibrosis is evident in both lung bases, slightly more pronounced on the left than that seen on the right. The pattern is unchanged. There are no focal infiltrates. There are no pathologic pulmonary nodules. The heart size is normal. 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 This courses posterior to both the trachea and esophagus. The pulmonary arteries are enlarged consistent with chronic pulmonary hypertension. There is no significant mediastinal lymphadenopathy. Stable hepatic cysts are present. Upper cuts of the abdomen included on the examination are otherwise grossly normal on this unenhanced scan. IMPRESSION: 1. COPD is evidence of chronic pulmonary hypertension. 2. 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 3. No pathologic pulmonary nodules. Report Dictated on Electronically Signed By: Roger Villalta Electronically Signed Date/Time: 07/11/2022 4:[address] [address] Chest WO contrastOrdered By: Roger Villalta on 07-11-2022 [employer] Work Phone: CT Chest WO contraston 07-07 Radiology Study observation (narrative) [facility] CR Abdomen APon 09-02-2021 CR Abdomen AP Patient Name: DOROTEO GONG Diagnostic Radiology ACCESSION EXAM DATE/TIME PROCEDURE ORDERING PROVIDER [id number] 09/02/2021 14:45 EDT CR Abdomen AP WENDY LEGGETT, NERY L CPT code 87461 Reason For Exam (CR Abdomen AP) renal calculi Report Examination: Abdomen 1 view, 2 images Indication: renal calculi Comparison: CT from May 2021 Findings: There are no significantly dilated small bowel bowel loops. Probable small lower pole renal calculus is present on the right Small to moderate osteophytes of the spine are present at multiple levels, with minimal scoliosis. There is posterior spinal [place] and pedicle screw fixation at L4/L5 with laminectomy. Total right hip arthroplasty is present. 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 Impression: Small lower pole renal calculus on the right. Report Dictated on Final Dictating Physician: MD AKBAR KRIKOR Signed Date and Time: 09/04/2021 7:39 pm Signed by: MD AKBAR KRIKOR Transcribed Date and Time: 09/04/2021 7:40 Normal [facility] US RETROPERITONEAL COMPLETEo n 06-30-2021 Patient Name: DOROTEO GONG Ultrasound ACCESSION EXAM DATE/TIME PROCEDURE ORDERING PROVIDER [id number] 06/30/2021 14:08 EDT US Retroperitoneal WENDY LEGGETT, Complete NERY L CPT code 87249 Reason For Exam (US Retroperitoneal Complete) Calculus of kidney Report CLINICAL INFORMATION: Renal stone. Retroperitoneal ultrasound exam. The right kidney measures 11.9 x 6.0 x 5.4 cm. 5 mm lower pole nonobstructing renal stone. 9 mm cystic lesion in the superior pole of the right kidney is too small to characterize further. There is a prominent extrarenal pelves. No caliectasis The left kidney measures 10.0 x 6.4 x 5.4 cm. Prominent extrarenal pelves noted. No caliectasis. No hydronephrosis of either kidney. No perirenal fluid collections. Renal parenchymal echotexture is within normal limits. Survey of the urinary bladder shows no urinary bladder stones. There is elevation of the bladder floor related to prostatic enlargement. IMPRESSION: Normal size kidneys without hydronephrosis. 9 mm cystic lesion in the superior pole of the right kidney is too small to characterize further. 5 mm nonobstructing right renal stone noted. Prostatic enlargement with elevation of the bladder floor. Report Dictated on --- Final --- Dictating Physician: MD ROBERTS LAURA Signed Date and Time: 06/30/2021 4:11 pm Signed by: MD ROBERTS LAURA Transcribed Date and Time: 06/30/2021 4:12 [facility] RAD Mamta Roberts MD - 06/30/2021 Patient Name: DOROTEO GONG Ultrasound ACCESSION EXAM DATE/TIME PROCEDURE ORDERING PROVIDER [id number] 06/30/2021 14:08 EDT US Retroperitoneal WENDY LEGGETT, Complete NERY L CPT code 56324 Reason For Exam (US Retroperitoneal Complete) Calculus of kidney Report CLINICAL INFORMATION: Renal stone. Retroperitoneal ultrasound exam. The right kidney measures 11.9 x 6.0 x 5.4 cm. 5 mm lower pole nonobstructing renal stone. 9 mm cystic lesion in the superior pole of the right kidney is too small to characterize further. There is a prominent extrarenal pelves. No caliectasis The left kidney measures 10.0 x 6.4 x 5.4 cm. Prominent extrarenal pelves noted. No caliectasis. No hydronephrosis of either kidney. No perirenal fluid collections. Renal parenchymal echotexture is within normal limits. Survey of the urinary bladder shows no urinary bladder stones. There is elevation of the bladder floor related to prostatic enlargement. IMPRESSION: Normal size kidneys without hydronephrosis. 9 mm cystic lesion in the superior pole of the right kidney is too small to characterize further. 5 mm nonobstructing right renal stone noted. Prostatic enlargement with elevation of the bladder floor. Report Dictated on --- Final --- Dictating Physician: MD ROBERTS LAURA Signed Date and Time: 06/30/2021 4:11 pm Signed by: MD ROBERTS LAURA Transcribed Date and Time: 06/30/2021 4:12 [facility] Work Phone: Radiology Study observation (narrative) [facility] Work Phone: US RETROPERITONEAL COMPLETEO rdered By: Mamta Roberts on 06-30-2021 [facility] Work Phone: US Retroperitoneal Completeo n 06-30-2021 US Retroperitoneal Complete Patient Name: DOROTEO GONG Ultrasound ACCESSION EXAM DATE/TIME PROCEDURE ORDERING PROVIDER [id number] 06/30/2021 14:08 EDT US Retroperitoneal WENDY LEGGETT, Complete NERY L CPT code 22497 Reason For Exam (US Retroperitoneal Complete) Calculus of kidney Report CLINICAL INFORMATION: Renal stone. Retroperitoneal ultrasound exam. The right kidney measures 11.9 x 6.0 x 5.4 cm. 5 mm lower pole nonobstructing renal stone. 9 mm cystic lesion in the superior pole of the right kidney is too small to characterize further. There is a prominent extrarenal pelves. No caliectasis The left kidney measures 10.0 x 6.4 x 5.4 cm. Prominent extrarenal pelves noted. No caliectasis. No hydronephrosis of either kidney. No perirenal fluid collections. Renal parenchymal echotexture is within normal limits. Survey of the urinary bladder shows no urinary bladder stones. There is elevation of the bladder floor related to prostatic enlargement. IMPRESSION: Normal size kidneys without hydronephrosis. 9 mm cystic lesion in the superior pole of the right kidney is too small to characterize further. 5 mm nonobstructing right renal stone noted. Prostatic enlargement with elevation of the bladder floor. Report Dictated on Final Dictating Physician: MD ROBERTS LAURA Signed Date and Time: 06/30/2021 4:11 pm Signed by: MD ROBERTS LAURA Transcribed Date and Time: 06/30/2021 4:12 Normal [facility] CULTURE URINEon 06-07-2021 CULTURE URINE CULTURE URINE --> Status: F Normal urogenital alex present. Normal [facility] Comment on above: Performed By: #### C /UR #### [facility] [address] [place] [address] NM Myocardial Perf Imaging M ulti Specton 06-07-2021 NM Myocardial Perf Imaging Multi Spect Patient Name: DOROTEO GONG Nuclear Medicine ACCESSION EXAM DATE/TIME PROCEDURE ORDERING PROVIDER [id number] 06/07/2021 10:50 EST NM Myocardial Perf [employer] Imaging Multi Spect CPT code 47573 [id number] [id number] Reason For Exam (NM Myocardial Perf Imaging Multi Spect) Shortness of breath Report Nuclear Stress Myocardial Perfusion Study Regadenoson Protocol Gated SPECT Patient: Doroteo Gong Height: (60 in) Weight: (190.1 lb) : 1940 Age: 80 Gender: M Study Date: 06/07/2021 Accession#: Patient Room #: *ORDERING PHYSICIAN: * Lawson Law MD *SUPERVISING PHYSICIAN: * Yifan, *RN: * Petty Sawyer,RN Wili *RADIOLOGIST: * Tk Mauro MD *NUCLEAR TECH: * Good Nieto V. *READING PHYSICIAN: * Chelle Rubio MD -- Indications: Sob. -- Summary: 1. Stress ECG conclusions: The sensitivity of this test is limited by baseline right bundle branch block. No stress induced ECG changes suggestive of ischemia. 2. Myocardial Perfusion Imaging: No inducible ischemic changes. Radiologist Confirmation: This is a combined report. The ECG portion of the study was interpreted and reported by the multimedia author and the perfusion imaging portion of the study was interpreted and reported by Tk Mauro MD on 06/07/2021 02:39 PM. -- History: RICKY on CPAP. Exertional dyspnea. Medications: Albuterol. Simvastatin (Zocor). Allergies: See EPIC allergy. Dyslipidemia. Nuclear Medicine Report Asthma. Medication list reviewed with patient and no contraindicated medications have been taken. -- Study data: Bra or chest circumference is 46 in. The patient's lungs are clear to auscultation. Heart auscultation by RN revealed a regular rate and rhythm. Pre pain assessment is 0 out of 10. Post pain assessment is 0 out of 10. Patient status: Outpatient. Gated SPECT; rest/stress. One-day Sestamibi. Consent: The procedure was reviewed with the patient and the patient voices understanding. Study completion: The patient tolerated the procedure well. There were no complications. Administered medications: Regadenoson. Discharge: Discharge instruction given. The patient was discharged to home while ambulatory. -- Procedure data: Initial setup. The patient was brought to the laboratory. A baseline ECG was recorded. Surface ECG leads and blood pressure measurements were monitored. 1 attempts for IV access. IV access per Magalys Sawyer. IV access verified #[id number] RAC. IV patent, site benign. IV discontinued, site benign. Regadenoson stress test. Stress testing was performed, with regadenoson by intravenous bolus at one minute into the protocol, for a total dose of 0.4mgover 10.00 sec, followed by a 5 ml saline flush. Exercise for 4 minutes completed by hand cafe assistant. The infusion was terminated due to end of protocol. A pharmacologic approach was used because the patient was physically unable to exercise. -- Baseline ECG: Normal sinus rhythm with right bundle branch block. No ST segment changes. Stress protocol: + +--+----- -------+ + +Stage +HR+BP +Symptoms + + +--+----- -------+ + +Rest +75+148/90 (109)+No symptoms.+ + +--+----- -------+ + +Peak stress +90+120/71 (87) +No symptoms.+ + +--+----- -------+ + +Recovery +91+127/72 (90) +No symptoms.+ + +--+----- -------+ + +Late recovery+89+133/74 (94) +No symptoms.+ + +--+----- -------+ + Stress results: Peak heart rate during stress was 91 bpm. (65% of maximal predicted heart rate). The maximal predicted heart rate was 139 bpm.The heart rate response to stress is normal. There is resting hypertension with an appropriate response to stress. Peak blood pressure achieved during test: 120/71 The rate-pressure product for the peak heart rate and blood pressure was 57209 mm Hg/min. Stress testing did not produce any symptoms suggestive of coronary artery disease. Stress ECG: There are no stress arrhythmias or conduction abnormalities. The sensitivity of this test is limited by baseline right bundle branch block. No stress induced ECG changes suggestive of ischemia. Isotope administration: + +------- ---------+ + +Stage +Rest +Stress + + +------- ---------+ + +Agent +Tc-99m sestamibi+Tc-99m sestamibi + + +------- ---------+-------- (more content not included)... Normal [facility] [employer] [facility] Rad Signatureon 2 [place] Rad Signature Patient Name: DOROTEO GONG Nuclear Medicine ACCESSION EXAM DATE/TIME PROCEDURE ORDERING PROVIDER [id number] 06/07/2021 12:35 EST NM Rad Signature SIGNATURE, RAD [place] Reason For Exam ([place] Rad Signature) rad signature Report _ Indications: Sob. -- Summary: 1. Stress ECG conclusions: The sensitivity of this test is limited by baseline right bundle branch block. No stress induced ECG changes suggestive of ischemia. 2. Myocardial Perfusion Imaging: No inducible ischemic changes. Radiologist Confirmation: This is a combined report. The ECG portion of the study was interpreted and reported by the multimedia author and the perfusion imaging portion of the study was interpreted and reported by Tk Mauro MD on 06/07/2021 02:39 PM. -- History: RICKY on CPAP. Exertional dyspnea. Medications: Albuterol. Simvastatin (Zocor). Allergies: See EPIC allergy. Dyslipidemia. Asthma. Medication list reviewed with patient and no contraindicated medications have been taken. -- Study data: Bra or chest circumference is 46 in. The patient's lungs are clear to auscultation. Heart auscultation by RN revealed a regular rate and rhythm. Pre pain assessment is 0 out of 10. Post pain assessment is 0 out of 10. Patient status: Outpatient. Gated SPECT; rest/stress. One-day Sestamibi. Consent: The procedure was reviewed with the patient and the patient voices understanding. Study completion: The patient tolerated the procedure well. There were no complications. Administered medications: Regadenoson. Discharge: Discharge instruction given. The patient was discharged to home while ambulatory. -- Procedure data: Initial setup. The patient was brought to the laboratory. A baseline ECG was recorded. Surface ECG leads and blood pressure measurements were monitored. 1 attempts for IV access. IV access per Magalys Sawyer. IV access verified #22 RAC. IV patent, site benign. IV discontinued, site benign. Regadenoson stress test. Stress testing was performed, with regadenoson by intravenous bolus at one minute into the protocol, for a total dose of 0.4mgover 10.00 sec, followed by a 5 ml saline flush. Exercise for 4 minutes completed by hand cafe assistant. The infusion was terminated due to end of protocol. A pharmacologic approach was used because the patient was physically unable to exercise. -- Baseline ECG: Normal sinus rhythm with right bundle branch block. No ST segment changes. Nuclear Medicine Report Stress protocol: + +--+----- -------+ + +Stage +HR+BP +Symptoms + + +--+----- -------+ + +Rest +75+148/90 (109)+No symptoms.+ + +--+----- -------+ + +Peak stress +90+120/71 (87) +No symptoms.+ + +--+----- -------+ + +Recovery +91+127/72 (90) +No symptoms.+ + +--+----- -------+ + +Late recovery+89+133/74 (94) +No symptoms.+ + +--+----- -------+ + Stress results: Peak heart rate during stress was 91 bpm. (65% of maximal predicted heart rate). The maximal predicted heart rate was 139 bpm.The heart rate response to stress is normal. There is resting hypertension with an appropriate response to stress. Peak blood pressure achieved during test: 120/71 The rate-pressure product for the peak heart rate and blood pressure was 95903 mm Hg/min. Stress testing did not produce any symptoms suggestive of coronary artery disease. Stress ECG: There are no stress arrhythmias or conduction abnormalities. The sensitivity of this test is limited by baseline right bundle branch block. No stress induced ECG changes suggestive of ischemia. Isotope administration: + +------- ---------+ + +Stage +Rest +Stress + + +------- ---------+ + +Agent +Tc-99m sestamibi+Tc-99m sestamibi + + +------- ---------+ + +Injected dose +9.2 mCi +33.0 mCi + + +------- ---------+ + +Date +06/07/2021 +06/07/2021 + + +------- ---------+ + +Injection time+08:07 AM +09:23 AM + + +------- ---------+ + +Injection at + +Peak pharmacologic stress+ + +------- ---------+ + +Injected by +B Maco FRUIT BUYING GRADER +Divine Nieto FRUIT BUYING GRADER + + +------- ---------+ + Image properties: Imaging information: The study was gated and motion correction used. The patient was (more content not included)... [facility] RF Swallowing Function w/ Vi andrew 06-07-2021 RF Swallowing Function w/ Video Patient Name: DOROTEO GONG Fluoroscopy ACCESSION EXAM DATE/TIME PROCEDURE ORDERING PROVIDER [id number] 06/07/2021 11:20 EST RF Swallowing Function [employer] w/ Video CPT code 58795 Reason For Exam (RF Swallowing Function w/ Video) dysphagia Report MODIFIED BARIUM SWALLOW (COOKIE SWALLOW) Clinical indications: Dysphagia. Fluoroscopy time: 1.50 minutes Fluoroscopy loops obtained: 17 Technique: The procedure was performed in conjunction with speech therapy. Barium mixtures of various consistencies were given under fluoroscopy with the patient in the sitting lateral position. FINDINGS: Preparatory and oral phases of swallowing are within functional limits. Pharyngeal phase shows increased residuals in the valleculae with thin, nectar, pudding and barium cookie consistencies. There is coating of the pharyngeal guajardo with pudding and thin barium consistencies. There is decreased epiglottic deflection with no vocal cord penetration or airway aspiration. Upper esophageal sphincter is difficult to visualize due to patient shoulders. The remaining esophagus is also not visualized for proper evaluation. IMPRESSION: Abnormal findings as described above. Please refer to the speech pathologist's report for additional comments and recommendations. Report Dictated on Final Dictating Physician: MD JOHNSON AHMAD Signed Date and Time: 06/07/2021 2:03 pm Signed by: MD JOHNSON AHMAD Transcribed Date and Time: 06/07/2021 2:04 Normal [facility] MARTIAL ARTS INSTRUCTOR Modified Barium Swallow Studyon 06-07-2021 MARTIAL ARTS INSTRUCTOR Modified Barium Swallow Study Patient [facility]: [id number] Fluoroscopy ACCESSION EXAM DATE/TIME PROCEDURE ORDERING PROVIDER [id number] 06/07/2021 11:20 EST MARTIAL ARTS INSTRUCTOR Modified Barium [employer] Swallow Study Reason For Exam (MARTIAL ARTS INSTRUCTOR Modified Barium Swallow Study) Shortness of breath Report Patient Date of : 1940 Date: 06/07/2021 2:14 PM EST Onset Date: Approximately February 2021 Diagnosis: Oral pharyngeal dysphagia Reason for Referral: Patient with complaint of food sticking on the left in my throat. Pills sometimes get stuck and he indicates that he has to bring them back up in swallow them again. PMHX: Shortness of breath, obstructive sleep apnea, restrictive lung disease, diverticulosis. Patient with recent increased left back/left flank pain. Patient continues to complain of same. Recent visits to ER recently. Patient noted increased weakness over the last month or 2, as well as right-sided lip/facial droop with some drooling, weakness in protecting his voice, increased difficulty with mobility. Any medication allergies, food allergy to corn Oxygen Requirement: Room air Current Diet: Regular Thickness of liquid: Thin Textures tested: Varibar pudding, yelena cracker coated with Varibar pudding Varibar Loomis presented via cup. Varibar Thin Liquid presented via cup/straw Patient position: Seated/Lateral; difficulty with visualizing top of airway and esophagus due to shoulder occlusion despite repositioning. Subjective: Patient alert and pleasant. Provided history for today's evaluation. Concern with increased weakness. CURRENT TEST RESULTS: Oral Phase: Oral phase of swallow is grossly unremarkable. Patient with mildly prolonged mastication however functional oral clearing in control. Pharyngeal Phase: Noted decreased epiglottic deflection, decreased pharyngeal wall constriction and anterior rocking of the hyolaryngeal complex; these deficits resulted in consistent vallecular residuals with thin, nectar thick, pudding, cracker consistency. Increase viscosity resulted in greater residual. Trace to mild residuals with thin and nectar, mild to moderate with puree and Fluoroscopy Report cracker. Reswallows were effective to reduce residual as well as alternating liquids and solids. Patient did present with lateral and posterior pharyngeal wall residuals after pudding and intermittently with thin liquid chasers. Patient did not demonstrate any airway penetration or aspiration during the study. Consideration for decreased epiglottic deflection related to close proximity of epiglottis and posterior pharyngeal wall. Pharyngeal Weakness/Impairment: Reduced epiglottic deflection, decreased anterior rocking of hyolaryngeal complex, reduced pharyngeal wall constriction. Esophageal Phase: No esophageal deficits observed, not clearly visualized due to shoulder occlusion for evaluation (even at level of UES). General Impressions: Oral phase of swallow is grossly unremarkable. Patient demonstrates decreased epiglottic deflection, reduced pharyngeal wall constriction and reduced anterior hyoid laryngeal excursion resulting in increased residuals with increased viscosity mild with liquids mild to moderate with solids. Patient did benefit and reduce residuals with a re-swallow and/or liquid chaser. Limited area results were discussed with patient at conclusion of evaluation. Patient indicated he has been alternating liquids throughout meals. He has attempted meds in food but will revisit this. Patient also indicated concern with right-sided lip droop and weakness resulting in some drooling. Did not visualize during this evaluation. Diet Recommendations / Strategies: Regular/thin. Alternate liquids and solids. Reswallows. Trial. If medications in food or liquid chaser. Recommended Consultations / Follow Up: Consideration for neurological follow-up with patient's concern for right-sided facial weakness and drooling, concern for increased ability. Goals: Patient will tolerate recommended diet without evidence of dysphagia or airway penetration. Patient will implement swallowing strategies with minimal cues. Patient will improve swallowing function through oropharyngeal strengthening exercises. Prior MBS date and results: not applicable Radiologist: Dr. Radha Johnson MD Radiologist Senior Manufacturing Technician: ILSA Yost Report Dictated on Final Dictating Physician: BREA CHAVEZ, GERBER/IZZY BOSE Signed Date and Time: 06/07/2021 2:44 pm Signed by: BREA CHAVEZ, GERBER/IZZY BOSE Transcribed Date and Time: 06/07/2021 2:45 Normal [facility] CBC with Auto Differentialon 06-05-2021 Absolute Baso # 0.1 10*3/uL 0.0 - 0.2 10*3/uL [facility] Absolute Neut # 6.1 10*3/uL 1.8 - 7.0 10*3/uL [facility] Basophils/100 WBC (Bld) 1.0 % 0.0 - 2.0 % [facility] Eosinophils (Bld) [#/Vol] 0.3 10*3/uL 0.0 - 0.5 10*3/uL [facility] Eosinophils/100 WBC (Bld) 2.6 % 1.0 - 6.0 % [facility] Granulocytes/100 WBC (Bld) 62.6 % 40.0 - 80.0 % [facility] Hematocrit (Bld) [Volume fraction] 43.4 % 40.0 - 52.0 % [facility] Hemoglobin.gastrointesti nal spec 1 Ql (Stl) 14.8 g/dL 13.0 - 18.0 g/dL [facility] Interpretation and review of laboratory results Abnormal [facility] Lymphocytes (Bld) [#/Vol] 2.1 10*3/uL 1.0 - 4.3 10*3/uL [facility] Lymphocytes/100 WBC (Bld) 22.0 % 20.0 - 40.0 % [facility] MCH (RBC) [Entitic mass] 30.2 pg 26. 0 - 34.0 pg [facility] MCHC (RBC) [Mass/Vol] 34.0 % 32.0 - 36.0 % [facility] MCV (RBC) [Entitic vol] 88.8 fL 80.0 - 98.0 fL [facility] Monocytes (Bld) [#/Vol] 1.1 10*3/uL High 0.0 - 0.8 10*3/uL [facility] Monocytes/100 WBC (Bld) 11.8 % High 2.0 - 10.0 % [facility] Platelet distribution width (Bld) [Ratio] 13.8 % 11.5 - 14.5 % [facility] Platelet mean volume (Bld) [Entitic vol] 7.6 fL 7.4 - 10.4 fL [facility] Platelets (Bld) [#/Vol] 417 10*3/uL 140 - 440 10*3/uL [facility] RBC (Bld) [#/Vol] 4.88 10*6/uL 4.40 - 5.9 0 10*6/uL [facility] WBC (Bld) [#/Vol] 9.7 10*3/uL 3.6 - 10.7 10*3/uL [facility] Test Performed by [facility], [address] [place], [place] [id number] [place] [address] [facility] [address] Abdomen Pelvis Wo Contras ton 06-05-2021 Patient Name: DOROTEO GONG Computed Tomography ACCESSION EXAM DATE/TIME PROCEDURE ORDERING PROVIDER [id number] 06/05/2021 19:[address] Abdomen/Pelvis (No LITO, AIRCRAFT LAUNCH AND REC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, TONO M PO, No IV) CPT code 98752 Reason For Exam (CT Abdomen/Pelvis (No PO, No IV)) left flank pain Report CT ABDOMEN AND PELVIS WITHOUT CONTRAST CLINICAL INDICATION: left flank pain TECHNIQUE: CT scan of the abdomen and pelvis, without IV contrast. Multiplanar reformations. COMPARISON: May,. FINDINGS: Abdomen: Solid organ evaluation limited due to lack of IV contrast. Visualized lung bases grossly unremarkable. Gallbladder surgically absent. 2-3 mm calcification again noted in the right kidney. Moderate right pelviectasis or extrarenal pelvis, about the same. Mild left pelviectasis or extra-axial pelvis, also similar. No significant hydronephrosis or abnormal perinephric fluid collection. Multiple round and ovoid, hypoattenuating foci scattered in the liver suggesting cysts. Largest is located in the medial segment measuring 2.7 cm, unchanged. Remainder of abdominal parenchyma grossly unremarkable. Pelvis: No apparent calcifications or significant dilatation in the distal ureters. Marked, nonspecific prostatic enlargement. Diverticular change scattered about the colon, most pronounced in the sigmoid region. Remainder of bowel grossly unremarkable. Appendix not confidently identified. No significant, free peritoneal fluid or loculated fluid collection. Abdominal aorta is nonaneurysmal. Computed Tomography Report Degenerative change in the thoracic and lumbar spine. Postsurgical change and fixation hardware noted in the lumbar spine. Status post right total hip arthroplasty and associated beam hardening artifact again noted and obscures surrounding soft tissues. Small, fat-containing umbilical hernia. IMPRESSION: 1. Nonobstructing, right renal calcification. No significant hydronephrosis 2. Nonspecific prostatomegaly. 3. Probable hepatic cysts. 4. Colonic diverticulosis without evidence of diverticulitis. Report Dictated on Workstation: [id number] --- Final --- Dictating Physician: MD BRISENO WENDELL Signed Date and Time: 06/05/2021 7:31 pm Signed by: MD BRISENO WENDELL Transcribed Date and Time: 06/05/2021 7:32 [facility] Michele Briseno MD - 06/05/2021 Patient Name: DOROTEO GONG Computed Tomography ACCESSION EXAM DATE/TIME PROCEDURE ORDERING PROVIDER [id number] 06/05/2021 19:[address] Abdomen/Pelvis (No LITO, KENDRICK, TONO M PO, No IV) CPT code 67093 Reason For Exam (CT Abdomen/Pelvis (No PO, No IV)) left flank pain Report CT ABDOMEN AND PELVIS WITHOUT CONTRAST CLINICAL INDICATION: left flank pain TECHNIQUE: CT scan of the abdomen and pelvis, without IV contrast. Multiplanar reformations. COMPARISON: May,. FINDINGS: Abdomen: Solid organ evaluation limited due to lack of IV contrast. Visualized lung bases grossly unremarkable. Gallbladder surgically absent. 2-3 mm calcification again noted in the right kidney. Moderate right pelviectasis or extrarenal pelvis, about the same. Mild left pelviectasis or extra-axial pelvis, also similar. No significant hydronephrosis or abnormal perinephric fluid collection. Multiple round and ovoid, hypoattenuating foci scattered in the liver suggesting cysts. Largest is located in the medial segment measuring 2.7 cm, unchanged. Remainder of abdominal parenchyma grossly unremarkable. Pelvis: No apparent calcifications or significant dilatation in the distal ureters. Marked, nonspecific prostatic enlargement. Diverticular change scattered about the colon, most pronounced in the sigmoid region. Remainder of bowel grossly unremarkable. Appendix not confidently identified. No significant, free peritoneal fluid or loculated fluid collection. Abdominal aorta is nonaneurysmal. Computed Tomography Report Degenerative change in the thoracic and lumbar spine. Postsurgical change and fixation hardware noted in the lumbar spine. Status post right total hip arthroplasty and associated beam hardening artifact again noted and obscures surrounding soft tissues. Small, fat-containing umbilical hernia. IMPRESSION: 1. Nonobstructing, right renal calcification. No significant hydronephrosis 2. Nonspecific prostatomegaly. 3. Probable hepatic cysts. 4. Colonic diverticulosis without evidence of diverticulitis. Report Dictated on Workstation: [id number] --- Final --- Dictating Physician: MD BRISENO WENDELL Signed Date and Time: 06/05/2021 7:31 pm Signed by: MD BRISENO WENDELL Transcribed Date and Time: 06/05/2021 7:32 [facility] Work Phone: Radiology Study observation (narrative) [facility] Work Phone: CT Abdomen Pelvis Wo Contras tOrdered By: Michele Briseno on 06-05-2021 [facility] Work Phone: CT Abdomen/Pelvis w/o Contra ston 06-05-2021 CT Abdomen/Pelvis w/o Contrast Patient Name: DOROTEO GONG Computed Tomography ACCESSION EXAM DATE/TIME PROCEDURE ORDERING PROVIDER [id number] 06/05/2021 19:[address] Abdomen/Pelvis (No LITO, 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, TONO M PO, No IV) CPT code 55238 Reason For Exam (CT Abdomen/Pelvis (No PO, No IV)) left flank pain Report CT ABDOMEN AND PELVIS WITHOUT CONTRAST CLINICAL INDICATION: left flank pain TECHNIQUE: CT scan of the abdomen and pelvis, without IV contrast. Multiplanar reformations. COMPARISON: May,. FINDINGS: Abdomen: Solid organ evaluation limited due to lack of IV contrast. Visualized lung bases grossly unremarkable. Gallbladder surgically absent. 2-3 mm calcification again noted in the right kidney. Moderate right pelviectasis or extrarenal pelvis, about the same. Mild left pelviectasis or extra-axial pelvis, also similar. No significant hydronephrosis or abnormal perinephric fluid collection. Multiple round and ovoid, hypoattenuating foci scattered in the liver suggesting cysts. Largest is located in the medial segment measuring 2.7 cm, unchanged. Remainder of abdominal parenchyma grossly unremarkable. Pelvis: No apparent calcifications or significant dilatation in the distal ureters. Marked, nonspecific prostatic enlargement. Diverticular change scattered about the colon, most pronounced in the sigmoid region. Remainder of bowel grossly unremarkable. Appendix not confidently identified. No significant, free peritoneal fluid or loculated fluid collection. Abdominal aorta is nonaneurysmal. Computed Tomography Report Degenerative change in the thoracic and lumbar spine. Postsurgical change and fixation hardware noted in the lumbar spine. Status post right total hip arthroplasty and associated beam hardening artifact again noted and obscures surrounding soft tissues. Small, fat-containing umbilical hernia. IMPRESSION: 1. Nonobstructing, right renal calcification. No significant hydronephrosis 2. Nonspecific prostatomegaly. 3. Probable hepatic cysts. 4. Colonic diverticulosis without evidence of diverticulitis. Report Dictated on Workstation: [id number] Final Dictating Physician: MD BRISENO WENDELL Signed Date and Time: 06/05/2021 7:31 pm Signed by: MD BRISENO WENDELL Transcribed Date and Time: 06/05/2021 7:32 Normal [facility] Comp Metabolic Panelon 06-05 Calcium [Mass/Vol] 9.8 mg/dL Normal 8.4-10.4 [facility] Comment on above: Performed By: #### H EMOG #### [facility] [address] [place] [address] ALP [Catalytic activity/Vol] 53 U/L Normal 38-126 [facility] Comment on above: Performed By: #### H EMOG #### [facility] [address] [place] [address] ALT [Catalytic activity/Vol] 20 U/L Normal 0-49 [facility] Comment on above: Result Comment: The ALT test is performed by an updated assay method. Please note that the reference intervals have been changed and are now sex specific. Performed By: #### H EMOG #### [facility] [address] [place] [address] Anion gap [Moles/Vol] 9 mmol/L Normal 3-13 [facility] Comment on above: Performed By: #### H EMOG #### [facility] [address] [place] [address] AST [Catalytic activity/Vol] 35 U/L Normal 15-46 [facility] Comment on above: Performed By: #### H EMOG #### [facility] [address] [place] [address] Bilirubin [Mass/Vol] 0.9 mg/dL Normal 0.2-1.3 [facility] Comment on above: Performed By: #### H EMOG #### [facility] [address] [place] [address] CO2 [Moles/Vol] 24 mmol/L Normal 22-30 [facility] Comment on above: Performed By: #### H EMOG #### [facility] [address] [place] [address] Creatinine [Mass/Vol] 0.92 mg/dL Normal 0.52-1.25 [facility] Comment on above: Performed By: #### H EMOG #### [place] [address] [place] [address] GFR/1.73 sq M.predicted among blacks MDRD (S/P/Bld) [Vol rate/Area] 89.7 mL/min/{1.73_m2} Normal >60 [facility] Comment on above: Performed By: #### H EMOG #### [facility] [address] [place] [address] GFR/1.73 sq M.predicted among non-blacks MDRD (S/P/Bld) [Vol rate/Area] 77.4 mL/min/{1.73_m2} Normal >60 [facility] Comment on above: Result Comment: KDIG O guidelines provide the following GFR categories: Stage GFR(ml/min/1.73 m2) Terms G1 >=90 Normal or high G2 60-89 Mildly decreased* G3a 45-59 Mildly to moderately decreased G3b 30-44 Moderately to severely decreased G4 15-29 Severely decreased G5 <15 Kidney failure *Relative to young adult level. In the absence of evidence of kidney damage, neither GFR category G1 nor G2 fulfill the criteria for CKD. The CKD-EPI equation is validated in individuals 18 years of age and older. Currently the best equation for estimating glomerular filtration rate (GFR) from serum creatinine in children is the Bedside Adorno equation. It is less accurate in patients with extremes of muscle mass, restriction of dietary protein, ingestion of creatine, extra-renal metabolism of creatinine, or treatment with medications that affect renal tubular creatinine secretion. Performed By: #### H EMOG #### [facility] [address] [place] [address] Glucose [Mass/Vol] 98 mg/dL Normal 70-100 [facility] Comment on above: Performed By: #### H EMOG #### [facility] [address] [place] [address] Protein [Mass/Vol] 7.1 g/dL Normal 6.3-8.2 [facility] Comment on above: Performed By: #### H EMOG #### [facility] [address] [place] [address] Urea nitrogen [Mass/Vol] 9 mg/dL Normal 7-17 [facility] Comment on above: Performed By: #### H EMOG #### [facility] [address] [place] [address] Potassium [Moles/Vol] 4.0 mmol/L Normal 3.5-5.1 [facility] Comment on above: Performed By: #### H EMOG #### [facility] [address] [place] [address] Albumin [Mass/Vol] 4.2 g/dL Normal 3.5-5.0 [facility] Comment on above: Performed By: #### H EMOG #### [facility] [address] [place] [address] Chloride [Moles/Vol] 101 mmol/L Normal 98-107 [facility] Comment on above: Performed By: #### H EMOG #### [facility] [address] [place] [address] Sodium [Moles/Vol] 134 mmol/L Low 135-145 [facility] Comment on above: Performed By: #### H EMOG #### [facility] [address] [place] [address] Complete Urinalysison 2021 Appearance (U) Clear Normal [facility] Comment on above: Result Comment: . Performed By: #### C UA2 #### [facility] [address] [place] [address] Bacteria LM.HPF (Urine sed) [#/Area] Negative Normal Negative [facility] Comment on above: Result Comment: . Performed By: #### C UA2 #### [facility] [address] [place] [address] Bilirubin,Urine Negative Normal Negative [facility] Comment on above: Result Comment: . Performed By: #### C UA2 #### [facility] [address] [place] [address] Cast, Hyaline 11 - 25 Abnormal Negative [facility] Comment on above: Result Comment: . Performed By: #### C UA2 #### [facility] [address] [place] [address] Color (U) Light-Yellow Normal Lt. Yellow [facility] Comment on above: Result Comment: . Performed By: #### C UA2 #### [facility] [address] [place] [address] Glucose Ql (U) Normal Normal Normal (<70) [facility] Comment on above: Result Comment: . Performed By: #### C UA2 #### [facility] [address] [place] [address] Ketone,Urine Negative Normal Negative [facility] Comment on above: Result Comment: . Performed By: #### C UA2 #### [facility] [address] [place] [address] Leukocytes,Urine 75 Pennie/uL Abnormal Negative [facility] Comment on above: Result Comment: . Performed By: #### C UA2 #### [facility] [address] [place] [address] Mucous Threads Few Normal [facility] Comment on above: Result Comment: . Performed By: #### C UA2 #### [place] [address] [place] [address] Nitrites,Urine Negative Normal Negative [facility] Comment on above: Result Comment: . Performed By: #### C UA2 #### [facility] [address] [place] [address] Occult Blood,Urine Negative Normal Negative [facility] Comment on above: Result Comment: . Performed By: #### C UA2 #### [facility] [address] [place] [address] pH,Urine 6.5 Normal 5.0-8.0 [facility] Comment on above: Result Comment: . Performed By: #### C UA2 #### [place] [address] [place] [address] Protein (U) [Mass/Vol] 20 mg/dL Abnormal Negative [facility] Comment on above: Result Comment: . Performed By: #### C UA2 #### [place] [address] [place] [address] RBC, Urine 0 - 2 Normal 0-2 [facility] Comment on above: Result Comment: . Performed By: #### C UA2 #### [place] [address] [place] [address] Specific [place],Urine 1.014 Normal 1.005 - 1.030 [facility] Comment on above: Result Comment: . Performed By: #### C UA2 #### [facility] [address] [place] [address] Squamous Epithelial 0 - 2 Normal 3-5 [facility] Comment on above: Result Comment: . Performed By: #### C UA2 #### [facility] [address] [place] [address] Urobilinogen,Urine Normal Normal Normal (0-1) [facility] Comment on above: Result Comment: . Performed By: #### C UA2 #### [facility] [address] [place] [address] WBC, Urine 3 - 5 Normal 0-5 [facility] Comment on above: Result Comment: . Performed By: #### C UA2 #### [facility] [address] [place] [address] Comprehensive Metabolic Pane khris 06-05-2021 Albumin [Mass/Vol] 4.2 g/dL 3.5 - 5.0 g/dL [facility] ALP (Bld) [Catalytic activity/Vol] 53 U/L 38 - 126 U/L [facility] ALT [Catalytic activity/Vol] 20 U/L 0 - 49 U/L [facility] Comment on above: The ALT test is perf ormed by an updated assay method. Please note that the reference intervals have been changed and are now sex specific. Anion gap [Moles/Vol] 9 mmol/L 3 - 13 mmol/L [facility] AST [Catalytic activity/Vol] 35 U/L 15 - 46 U/L [facility] Bilirubin [Mass/Vol] 0.9 mg/dL 0.2 - 1 .3 mg/dL [facility] Calcium [Mass/Vol] 9.8 mg/dL 8.4 - 10. 4 mg/dL [facility] Chloride [Moles/Vol] 101 mmol/L 98 - 10 7 mmol/L [facility] CO2 [Moles/Vol] 24 mmol/L 22 - 30 mmol/L [facility] Creatinine [Mass/Vol] 0.92 mg/dL 0.52 - 1.25 mg/dL [facility] EGFR IF NonAfrican Georgian 77.4 mL/min >60 [facility] Comment on above: KDIGO guidelines pro vide the following GFR categories: Stage GFR(ml/min/1.73 m2) Terms G1 >=90 Normal or high G2 60-89 Mildly decreased* G3a 45-59 Mildly to moderately decreased G3b 30-44 Moderately to severely decreased G4 15-29 Severely decreased G5 <15 Kidney failure *Relative to young adult level. In the absence of evidence of kidney damage, neither GFR category G1 nor G2 fulfill the criteria for CKD. The CKD-EPI equation is validated in individuals 18 years of age and older. Currently the best equation for estimating glomerular filtration rate (GFR) from serum creatinine in children is the Bedside Adorno equation. It is less accurate in patients with extremes of muscle mass, restriction of dietary protein, ingestion of creatine, extra-renal metabolism of creatinine, or treatment with medications that affect renal tubular creatinine secretion. Free PSA/Total PSA [Mass fraction] 7.1 g/dL 6.3 - 8.2 g/dL [facility] GFR/1.73 sq M.predicted among blacks MDRD (S/P/Bld) [Vol rate/Area] 89.7 mL/min/{1.73_m2} >60 [facility] Glucose [Mass/Vol] 98 mg/dL 70 - 100 mg/dL [facility] Interpretation and review of laboratory results Abnormal [facility] Potassium [Moles/Vol] 4.0 mmol/L 3.5 - 5.1 mmol/L [facility] Sodium [Moles/Vol] 134 mmol/L Low 135 - 145 mmol/L [facility] Urea nitrogen (BldV) [Mass/Vol] 9 mg/dL 7 - 17 mg/dL [facility] ED Provider Noteon ED Provider Note Emergency Department Encounter [facility] Patient: Doroteo Gong : 1940 Date of Evaluation: 06/05/2021 ED Supervising Physician: DAIANA SCHREIBER MD I independently examined and evaluated Doroteo Gong. I wore a N95 mask, gloves, and goggles for the entirety of this encounter. In brief, Doroteo Gong is a 80 y.o. male that presents to the emergency department for evaluation of left-sided back pain. Patient states that he started having this pain on Sunday but it is gotten worse since around noon today. Goes up towards the left flank. States it is worse whenever he bends over. Whenever he is laying and not moving he rates it at most a 1 out of 10. He is able to walk with his cane without difficulty up until today when it became more difficult. States that he feels that most whenever he tries to sit up or move. Denies any pain down the legs. Denies loss of bowel or bladder control. Denies numbness or tingling in the groin. Denies abdominal pain nausea vomiting fevers or chills. Denies chest pain or shortness of breath. Patient states he has had some noticed decreased urine output over the weekend. Focused exam: General appearance: Well-appearing, no acute distress. Psych: Awake alert and oriented ?3. Pleasant and cooperative. Skin: Warm and dry. Neck: Supple. Cardiovascular: Regular rate and rhythm, normal S1-S2 no murmurs rubs or gallops. Lungs: Clear to auscultation bilaterally, no accessory muscle use, tachypnea, or retractions. Abdomen: Soft, nontender, and nondistended, no rebound, rigidity, or guarding, positive bowel sounds 4 quadrants. No CVA tenderness no pulsatile mass Back: No midline tenderness step-offs or crepitus there is left paraspinal tenderness reproducing patient's pain in the lumbar region Extremities: Warm and well perfused. NROM and SILT throughout upper and lower extermities. Negative straight leg raise 5 out of 5 musculoskeletal strength to plantar flexion dorsiflexion knee flexion extension and hip flexion Brief ED course/MDM: Patient evaluated with blood work urinalysis was CT scan of the abdomen pelvis. Patient appears well hemodynamically stable All diagnostic, treatment, and disposition decisions were made by myself in conjunction with the KEREN/Resident. I also supervised carrizales portions of any procedures performed by the KEREN/Resident. For all further details of the patient's emergency department visit, please see their documentation. This will serve as my supervisory note and shared attestation. I did perform a substantial portion of the visit including all aspects of the medical decision making. (Please note that portions of this note may have been completed with a voice recognition program. Efforts were made to edit the dictations but occasionally words are mis-transcribed.) DAIANA SCHREIBER MD Acute Care [facility] Daiana Schreiber MD 06/05/212005 [facility] ED Provider Note [facility] ED eMERGENCY dEPARTMENT eNCOUnter Pt Name: Doroteo Gong Birthdate 1940 Date of evaluation: 06/05/2021 Provider: Tono Lassiter APRN - KENDRICK This patient was seen in conjunction with Dr. Schreiber CHIEF COMPLAINT Chief Complaint Patient presents with ? Flank Pain left kidney/flank pain that began sunday, no n/v, some problems urinating. hx of kidney stones. HISTORY OF PRESENT ILLNESS (Location/Symptom, Timing/Onset,Context/Se tting, Quality, Duration, Modifying Factors, Severity) Note limiting factors. HPI Doroteo Gong is a 80 y.o. male who presents to the emergency department with left flank pain and left-sided low back pain. Patient's had this for the last 3 to 4 days feels kind of similar to when he had a kidney stone in the past. Tells me has had multiple kidney stones in the past has had had lithotripsy and had stone removed in the past. Denies nausea vomiting or diarrhea denies any urinary symptoms. He states he did have back surgery about 10 years ago because he had a herniated disc states this does not feel like that. Denies bowel or bladder incontinence saddle anesthesia or difficulty moving the bowel or bladder. Denies radicular symptoms on the leg denies any falls or injury. Nursing Notes were reviewed. REVIEW OF SYSTEMS (2+ for4; 10+ for level 5) Review of Systems Constitutional: Negative for activity change, appetite change, chills and fever. HENT: Negative for congestion, ear discharge, ear pain, hearing loss, postnasal drip, rhinorrhea and sore throat. Eyes: Negative for discharge and redness. Respiratory: Negative for chest tightness and shortness of breath. Cardiovascular: Negative for chest pain. Gastrointestinal: Negative for abdominal pain, diarrhea, nausea and vomiting. Genitourinary: Positive for flank pain. Negative for dysuria, genital sores, hematuria, penile pain, penile swelling, scrotal swelling, testicular pain and urgency. Musculoskeletal: Negative for arthralgias and myalgias. Skin: Negative for color change. Neurological: Negative for dizziness, tremors, weakness, light-headedness and headaches. Hematological: Negative for adenopathy. Psychiatric/Behavioral: Negative for agitation and confusion. All other systems reviewed and are negative. PAST MEDICAL HISTORY Past Medical History: Diagnosis Date ? Arthritis knees hands ? Asthma ? Chronic pain ? GERD (gastroesophageal reflux disease) ? Hyperlipidemia ? Kidney stone 2012 ? Prostate disease ? Sleep apnea ? Thyroid disease SURGICALHISTORY Past Surgical History: Procedure Laterality Date ? APPENDECTOMY ? BACK SURGERY 2013 slipped disc ? CHOLECYSTECTOMY ? JOINT REPLACEMENT Right 2013 ? LITHOTRIPSY 3-4 times ? OTHER SURGICAL HISTORY hemorroid removed ? OTHER SURGICAL HISTORY Left 12/19/2017 stent placement, cystoscopy and pyelogram, Laser Lithotripsy ? SINUS SURGERY CURRENT MEDICATIONS Previous Medications ACETAMINOPHEN (TYLENOL) 500 MG TABLET Take 500 mg by mouth every 6 hours as needed for Pain ALBUTEROL (PROVENTIL) (2.5 MG/3ML) 0.083% NEBULIZER SOLUTION Take 2.5 mg by nebulization every 6 hours as needed for Wheezing ALBUTEROL SULFATE HFA 108 (90 BASE) MCG/ACT INHALER Inhale 2 puffs into the lungs every 6 hours as needed for Wheezing ALFUZOSIN (UROXATRAL) 10 MG EXTENDED RELEASE TABLET Take 10 mg by mouth daily CHLORPHENIRAMINE-PSEUDO EPHEDRINE 4-60 MG TABS PER TABLET Take 1 tablet by mouth 3 times daily CYANOCOBALAMIN (VITAMIN B-12 PO) Take 1,000 mcg by mouth FINASTERIDE (PROSCAR) 5 MG TABLET Take 5 mg by mouth daily FLUTICASONE (FLOVENT HFA) 110 MCG/ACT INHALER Inhale 2 puffs into the lungs 2 times daily IPRATROPIUM (ATROVENT) 0.06 % NASAL SPRAY 2 sprays by Nasal route 4 times daily LEVOTHYROXINE (SYNTHROID) 50 MCG TABLET Take 50 mcg by mouth Daily PANTOPRAZOLE (PROTONIX) 40 MG TABLET Take 40 mg by mouth daily POLYETHYLENE GLYCOL 3350 (MIRALAX PO) Take by mouth daily SIMVASTATIN (ZOCOR) 20 MG TABLET Take 20 mg by mouth nightly TAMSULOSIN (FLOMAX) 0.4 MG CAPSULE Take 0.4 mg by mouth daily as needed Ciprofloxacin, Erythromycin, Minocin [minocycline hcl], Penicillins, Sulfa antibiotics, Tetracyclines & related, and Vibramycin [doxycycline calcium] FAMILY HISTORY Family History Problem Relation Age of Onset ? Diabetes Mother ? Heart Failure Mother SOCIAL HISTORY Social History Socioeconomic History ? Marital status: Single Spouse name: None ? Number of children: None ? Years of education: None ? Highest education level: None Occupational History ? None Tobacco Use ? Smoking status: Never Smoker ? Smokeless tobacco: Never Used Vaping Use ? Vaping Use: Never used Substance and Sexual Activity ? Alcohol use: No Comment: gave up 1995 ? Drug use: No Comment: Caffeine use: occasional cola ? Sexual activity: None Other Topics Concern ? None Social History (more content not included)... Normal [facility] Hemogram w/ Autodiffon 06-05 Abs Baso Cnt 0.1 10*3/uL Normal 0.0-0.2 [facility] Comment on above: Performed By: #### H EMOG #### [facility] [address] [place] [address] Abs Neutrophile Cnt 6.1 10*3/uL Normal 1.8-7.0 [facility] Comment on above: Performed By: #### H EMOG #### [facility] [address] [place] [address] Basophils/100 WBC (Bld) 1.0 % Normal 0.0-2.0 [facility] Comment on above: Performed By: #### H EMOG #### [facility] [address] [place] [address] Eosinophils (Bld) [#/Vol] 0.3 10*3/uL Normal 0.0-0.5 [facility] Comment on above: Performed By: #### H EMOG #### [facility] [address] [place] [address] Eosinophils/100 WBC (Bld) 2.6 % Normal 1.0-6.0 [facility] Comment on above: Performed By: #### H EMOG #### [facility] [address] [place] [address] Erythrocyte distribution width (RBC) [Ratio] 13.8 % Normal 11.5-14.5 [facility] Comment on above: Performed By: #### H EMOG #### [facility] [address] [place] [address] Granulocytes/100 WBC (Bld) 62.6 % Normal 40.0-80.0 [facility] Comment on above: Performed By: #### H EMOG #### [facility] [address] [place] [place] [address] Hematocrit (Bld) [Volume fraction] 43.4 % Normal 40.0-52.0 [facility] Comment on above: Performed By: #### H EMOG #### [facility] [address] [place] [address] Hemoglobin (Bld) [Mass/Vol] 14.8 g/dL Normal 13.0-18.0 [facility] Comment on above: Performed By: #### H EMOG #### [facility] [address] [place] [address] Lymphocytes (Bld) [#/Vol] 2.1 10*3/uL Normal 1.0-4.3 [facility] Comment on above: Performed By: #### H EMOG #### [facility] [address] [place] [address] Lymphocytes/100 WBC (Bld) 22.0 % Normal 20.0-40.0 [facility] Comment on above: Performed By: #### H EMOG #### [facility] [address] [place] [address] MCH (RBC) [Entitic mass] 30.2 pg Normal 26.0-34.0 [facility] Comment on above: Performed By: #### H EMOG #### [facility] [address] [place] [address] MCHC 34.0 % Normal 32.0-36.0 [facility] Comment on above: Performed By: #### H EMOG #### [facility] [address] [place] [address] MCV (RBC) [Entitic vol] 88.8 fL Normal 80.0-98.0 S [facility] Comment on above: Performed By: #### H EMOG #### [facility] [address] [place] [address] Monocytes (Bld) [#/Vol] 1.1 10*3/uL High 0.0-0.8 [facility] Comment on above: Performed By: #### H EMOG #### [facility] [address] [place] [address] Monocytes/100 WBC (Bld) 11.8 % High 2.0-10.0 [facility] Comment on above: Performed By: #### H EMOG #### [facility] [address] [place] [address] Platelet mean volume (Bld) [Entitic vol] 7.6 fL Normal 7.4-10.4 [facility] Comment on above: Performed By: #### H EMOG #### [facility] [address] [place] [address] Platelets (Bld) [#/Vol] 417 10*3/uL Normal 140-440 [facility] Comment on above: Performed By: #### H EMOG #### [facility] [address] [place] [address] RBC (Bld) [#/Vol] 4.88 10*6/uL Normal 4.40-5.90 [facility] Comment on above: Performed By: #### H EMOG #### [facility] [address] [place] [address] WBC (Bld) [#/Vol] 9.7 10*3/uL Normal 3.6-10.7 [facility] Comment on above: Performed By: #### H [facility] #### [facility] [address] [place] [address] Lipaseon 06-05-2021 Lipase [Catalytic activity/Vol] 40 U/L Normal 23-300 [facility] Comment on above: Performed By: #### H EMO #### [facility] [address] [place] [address] Lipase [Catalytic activity/Vol] 40 U/L 23 - 300 U/L [facility] No Panel Informationon 06-05 Test Performed by [facility], [address] [place], [place] [address] [facility] Urinalysison 06-05-2021 Appearance (U) Clear Clear NA [facility] Comment on above: . Bacteria, UA Negative Negative /[HPF] [facility] Comment on above: . Bilirubin Urine Negative Negative mg/dL [facility] Comment on above: . Color (U) Light-Yellow Lt. Yellow NA [facility] Comment on above: . Glucose, Ur Normal Normal (<70) mg/dL [facility] Comment on above: . Hyaline Casts, UA 11-25 Abnormal Negative /[LPF] [facility] Comment on above: . Interpretation and review of laboratory results Abnormal [facility] Ketones Ql (U) Negative Negative mg/dL [facility] Comment on above: . LEUKOCYTES, UA 75 Abnormal Negative Pennie/uL [facility] Comment on above: . Mucous Threads Few Negative /[LPF] [facility] Comment on above: . Nitrite, Urine Negative Negative NA [facility] Comment on above: . Occult Blood,Urine Negative Negative mg/dL [facility] Comment on above: . pH (U) 6.5 [pH] [facility] Comment on above: . Protein (U) [Mass/Vol] 20 mg/dL Abnormal Negative [facility] Comment on above: . RBC, UA 0-2 0 - 2 /[HPF] [facility] Comment on above: . Specific [place], Urine [address] [facility] Comment on above: . Squam Epithel, UA 0-2 3 - 5 /[HPF] [facility] Comment on above: . Urobilinogen, Urine Normal Normal (0-1) mg/dL [facility] Comment on above: . WBC, UA 3-5 0 - 5 /[HPF] [facility] Comment on above: . Test Performed by [facility], [address], [place], [place] [id number] [place] [address] LAB [facility] CR Chest PA/LATon 02-25-2021 CR Chest PA/LAT Patient Name: DOROTEO GONG Diagnostic Radiology ACCESSION EXAM DATE/TIME PROCEDURE ORDERING PROVIDER [id number] 02/25/2021 11:47 EST CR Chest PA and LAT [id number] -SUSANNE THRASHER CPT code 10448 Reason For Exam (CR Chest PA and LAT) aspirated foreign body Report EXAMINATION: PA and Lateral Chest. COMPARISON: 02/11/2021. REASON FOR STUDY: Aspirated foreign body. FINDINGS: Cardiac silhouette is enlarged. Aorta is atherosclerotic and ectatic. Lungs are diminished in volume. No abnormal pleuroparenchymal opacity is observed. No radiopaque foreign body is identified. Osseous structures appear intact. There is a right convex curvature of the thoracic spine with associated multilevel degenerative changes. CONCLUSION(S): 1. No evidence of acute chest pathology or radiopaque foreign body. 2. Cardiomegaly. 3. Atherosclerotic and ectatic aorta. Report Dictated on Final Dictating Physician: MD BARRETT B NELSON Signed Date and Time: 02/25/2021 12:21 pm Signed by: MD BARRETT B NELSON Transcribed Date and Time: 02/25/2021 12:22 Normal [facility] ED Provider Noteon ED Provider Note [facility] ED eMERGENCY dEPARTMENT eNCOUnter Pt Name: Doroteo Gong Birthdate 1940 Date of evaluation: 02/25/2021 Provider: Susanne Thrasher MD CHIEF COMPLAINT No chief complaint on file. HISTORY OF PRESENT ILLNESS (Location/Symptom, Timing/Onset,Context/Se tting, Quality, Duration, Modifying Factors, Severity) Note limiting factors. HPI Doroteo Gong is a 80 y.o. male who presents to the emergency department complaining of shortness of breath after possibly aspirating a hydrochlorothiazide tablet. Patient states he had coughing and shortness of breath after swallowing the tablet. Nursing Notes were reviewed. REVIEW OF SYSTEMS (2+ for4; 10+ for level 5) Review of Systems Constitutional: Negative for chills and fever. HENT: Negative for congestion, sinus pain, sore throat and trouble swallowing. Eyes: Negative for photophobia, pain, redness and visual disturbance. Respiratory: Positive for shortness of breath. Negative for cough, chest tightness, wheezing and stridor. Cardiovascular: Negative for chest pain, palpitations and leg swelling. Gastrointestinal: Negative for abdominal distention, abdominal pain, diarrhea, nausea and vomiting. Genitourinary: Negative for decreased urine volume, difficulty urinating, dysuria, flank pain, frequency and urgency. Musculoskeletal: Negative for back pain and neck pain. Skin: Negative for pallor, rash and wound. Neurological: Negative for seizures, syncope, speech difficulty, weakness, light-headedness, numbness and headaches. Psychiatric/Behavioral: Negative for confusion, hallucinations and self-injury. PAST MEDICAL HISTORY Past Medical History: Diagnosis Date ? Arthritis knees hands ? Asthma ? Chronic pain ? GERD (gastroesophageal reflux disease) ? Hyperlipidemia ? Kidney stone 2012 ? Prostate disease ? Sleep apnea ? Thyroid disease SURGICALHISTORY Past Surgical History: Procedure Laterality Date ? APPENDECTOMY ? BACK SURGERY 2013 slipped disc ? CHOLECYSTECTOMY ? JOINT REPLACEMENT Right 2013 ? LITHOTRIPSY 3-4 times ? OTHER SURGICAL HISTORY hemorroid removed ? OTHER SURGICAL HISTORY Left 12/19/2017 stent placement, cystoscopy and pyelogram, Laser Lithotripsy ? SINUS SURGERY CURRENT MEDICATIONS Discharge Medication List as of 02/25/2021 1:16 PM CONTINUE these medications which have NOT CHANGED Details budesonide-formoterol (SYMBICORT) 160-4.5 MCG/ACT AERO Inhale 2 puffs into the lungs 2 times daily, Disp-1 each, R-3Normal hydroCHLOROthiazide (HYDRODIURIL) 25 MG tablet Take 1 tablet by mouth every morning, Disp-30 tablet, R-5Normal !! acetaminophen (TYLENOL) 500 MG tablet Take 500 mg by mouth every 6 hours as neededHistorical Med chlorpheniramine-pseudo ephedrine 4-60 MG TABS per tablet Take 1 tablet by mouth 3 times dailyHistorical Med alfuzosin (UROXATRAL) 10 MG extended release tablet Take 10 mg by mouth dailyHistorical Med Polyethylene Glycol 3350 (MIRALAX PO) Take by mouth daily Historical Med Cyanocobalamin (VITAMIN B-12 PO) Take 1,000 mcg by mouthHistorical Med albuterol (PROVENTIL) (2.5 MG/3ML) 0.083% nebulizer solution Take 2.5 mg by nebulization every 6 hours as needed for WheezingHistorical Med finasteride (PROSCAR) 5 MG tablet Take 5 mg by mouth dailyHistorical Med tamsulosin (FLOMAX) 0.4 MG capsule Take 0.4 mg by mouth daily as neededHistorical Med albuterol sulfate HFA 108 (90 Base) MCG/ACT inhaler Inhale 2 puffs into the lungs every 6 hours as needed for WheezingHistorical Med !! acetaminophen (TYLENOL) 500 MG tablet Take 500 mg by mouth every 6 hours as needed for PainHistorical Med simvastatin (ZOCOR) 20 MG tablet Take 20 mg by mouth nightlyHistorical Med levothyroxine (SYNTHROID) 50 MCG tablet Take 50 mcg by mouth DailyHistorical Med ipratropium (ATROVENT) 0.06 % nasal spray 2 sprays by Nasal route 4 times dailyHistorical Med omeprazole (PRILOSEC) 20 MG delayed release capsule Take 20 mg by mouth dailyHistorical Med !! - Potential duplicate medications found. Please discuss with provider. Ciprofloxacin, Erythromycin, Minocin [minocycline hcl], Penicillins, Sulfa antibiotics, Tetracyclines & related, and Vibramycin [doxycycline calcium] FAMILY HISTORY Family History Problem Relation Age of Onset ? Diabetes Mother ? Heart Failure Mother SOCIAL HISTORY Social History Socioeconomic History ? Marital status: Single Spouse name: None ? Number of children: None ? Years of education: None ? Highest education level: None Occupational History ? None Tobacco Use ? Smoking status: Never Smoker ? Smokeless tobacco: Never Used Vaping Use ? Vaping Use: Never used Substance and Sexual Activity ? Alcohol use: No ? Drug use: No ? Sexual activity: None Other Topics Concern ? None Social History Narrative ? None Social Determinants of Health Financial Resource Strain: ? Difficulty of Paying Living Expen (more content not included)... Normal [facility] [employer] XR CHEST (2 VW)on 02-25-2021 Patient Name: DOROTEO BELTRÁN Diagnostic Radiology ACCESSION EXAM DATE/TIME PROCEDURE ORDERING PROVIDER [id number] 02/25/2021 11:47 EST CR Chest PA & LAT [id number] -SUSANNE THRASHER CPT code 81698 Reason For Exam (CR Chest PA & LAT) aspirated foreign body Report EXAMINATION: PA and Lateral Chest. COMPARISON: 02/11/2021. REASON FOR STUDY: Aspirated foreign body. FINDINGS: Cardiac silhouette is enlarged. Aorta is atherosclerotic and ectatic. Lungs are diminished in volume. No abnormal pleuroparenchymal opacity is observed. No radiopaque foreign body is identified. Osseous structures appear intact. There is a right convex curvature of the thoracic spine with associated multilevel degenerative changes. CONCLUSION(S): 1. No evidence of acute chest pathology or radiopaque foreign body. 2. Cardiomegaly. 3. Atherosclerotic and ectatic aorta. Report Dictated on --- Final --- Dictating Physician: MD BARRETT B NELSON Signed Date and Time: 02/25/2021 12:21 pm Signed by: MD BARRETT B NELSON Transcribed Date and Time: 02/25/2021 12:22 [facility] Teddy Barrett M D - 02/25/2021 Patient Name: DOROTEO GONG Diagnostic Radiology ACCESSION EXAM DATE/TIME PROCEDURE ORDERING PROVIDER [id number] 02/25/2021 11:47 EST CR Chest PA & LAT [id number] -SUSANNE THRASHER CPT code 86162 Reason For Exam (CR Chest PA & LAT) aspirated foreign body Report EXAMINATION: PA and Lateral Chest. COMPARISON: 02/11/2021. REASON FOR STUDY: Aspirated foreign body. FINDINGS: Cardiac silhouette is enlarged. Aorta is atherosclerotic and ectatic. Lungs are diminished in volume. No abnormal pleuroparenchymal opacity is observed. No radiopaque foreign body is identified. Osseous structures appear intact. There is a right convex curvature of the thoracic spine with associated multilevel degenerative changes. CONCLUSION(S): 1. No evidence of acute chest pathology or radiopaque foreign body. 2. Cardiomegaly. 3. Atherosclerotic and ectatic aorta. Report Dictated on --- Final --- Dictating Physician: MD BARRETT B NELSON Signed Date and Time: 02/25/2021 12:21 pm Signed by: MD BARRETT B NELSON Transcribed Date and Time: 02/25/2021 12:22 [facility] Work Phone: Radiology Study observation (narrative) [facility] Work Phone: XR CHEST (2 VW)Ordered By: Pia Barrett on 02-25-2021 [facility] Work Phone: CR Chest PA/LATon 02-11-2021 CR Chest PA/LAT [facility]: [id number] Diagnostic Radiology ACCESSION EXAM DATE/TIME PROCEDURE ORDERING PROVIDER [id number] 02/11/2021 16:29 EDT CR Chest PA and LAT JOANN KLINE CPT code 95329 Reason For Exam (CR Chest PA and LAT) sob Report CHEST (Frontal and lateral) History: Dyspnea, chest pain Comparison: 10/05/2020 Findings: Frontal and lateral chest views show mild hyperaeration with interstitial prominence and small bilateral basal linear atelectasis. There are no acute infiltrate or congestion. The heart is normal in size. There are atherosclerotic calcifications. There is no mediastinal widening or pleural effusion. There is spondylosis. IMPRESSION: Chronic changes. No acute pulmonary process. . Report Dictated on Final Dictating Physician: MD JOHNSON AHMAD Signed Date and Time: 02/11/2021 5:13 pm Signed by: MD JOHNSON AHMAD Transcribed Date and Time: 02/11/2021 5:14 Normal [facility] Complete PFT Study Pre and P ost BronchodilatorOrdered By: Joann Kline on 01-31-2021 Name: DOROTEO GONG PatientID: [id number] Gender: Male Birthdate: 1940 Study Date: 01/31/2021 1:07:45 Age: 80 Race: White or Height: 60.0 in, 152.4 cm Weight: 189.0 lbs, 85.9 kg Smoke Status: Never Pack Years: Tbco Prod: Cigarettes Ordering Physician: [id number] Interpreting Physician: [id number] Clinical Team Manager: GABI Han Location: [facility] Diagnosis: SOB Spirometry Units Pred PreDrug Pre%Pred Post Post%Pred %Change FVC L,btps 2.42 1.75 72. 1.92 79. 10. FEV1 L,btps 1.64 1.31 80. 1.45 88. 10. FEV1/FVC (%) % 71. 75. 105. 75. 106. 0. UOA84-60% L/s 1.06 0.98 93. 1.20 114. 23. FEFmax L/s 5.01 4.95 99. 5.40 108. 9. MVV in,btps 77.69 49.76 64. Lung Volumes (Body Box) Units Pred PreDrug Pre%Pred TLC L,btps 4.97 VC L,btps 2.42 IC L,btps 1.77 FRC L,btps 3.21 ERV L,btps 0.66 RV L,btps 2.55 RV/TLC (%) % 51. VTG L,btps RAW H2O/L/s 1.44 SGaw cmH2O/L 0.22 Diffusion (DLCO) Units Pred PreDrug Pre%Pred DLCO ml/min/mmHg,stpd 19.64 11.41 58. DLCOHb ml/min/mmHg,stpd 19.64 11.41 58. VAsb L,btps 4.86 2.63 54. D/VAsb ml/min/mmHg/L,stpd 4.04 4.34 107. D/VAsbHb ml/min/mmHg/L,stpd 4.04 4.34 107. VInsp L 2.02 Hgb g/dl 14.60 COHb % Nitrogen Washout Units Pred PreDrug Pre%Pred TLC L,btps 4.97 4.14 83. VC L,btps 2.42 2.34 97. FRC L,btps 3.21 2.16 67. IC L,btps 1.77 1.98 112. ERV L,btps 0.66 0.36 54. RV L,btps 2.55 1.80 71. RV/TLC (%) % 51. 43. 85. Lung Mechanics Units Pred PreDrug Pre%Pred PImax /MIP cmH2O -58.57 PEmax /MEP cmH2O 106.29 [facility] NOTES Good Patient effort. Consistent results. Best results reported.Persistent coughing throughout testing.Calibration check passed with acceptable system performance. The patient performed all pre-test requirements. Not all quality indicators met for acceptability during N2 Washout testing. Effort with largest TLC selected. Pt has sob with any exertion. Pt has a moist pc through out the day frequently. Pt needed several breaks to rest due to coughing. Pt was given an Albuterol MDI x4 puffs via a spacer that was instructed and dispensed. [address]- PRE/[place] [address]- DLCO 61345- FRC GAS Tests to perform: [id number] - FULL PFT STUDY WITH BRONCHODILATOR PHYSICIAN INTERPRETATION Mild restrictive ventilatory impairment with moderately decrease in gas Exchange may be compatible with the Dx of restrictive lung disease Total lung Capacity is normal Border line response to BD therapy [facility] Work Phone: [place], [facility] Incoming Cardiology Results From [facility] - 01/31/2021 10:34 PM EDT Name: DOROTEO GONG PatientID: [id number] Gender: Male Birthdate: 1940 Study Date: 01/31/2021 1:07:45 Age: 80 Race: White or Height: 60.0 in, 152.4 cm Weight: 189.0 lbs, 85.9 kg Smoke Status: Never Pack Years: Tbco Prod: Cigarettes Ordering Physician: [id number] Interpreting Physician: [id number] Clinical Team Manager: GABI Testing Location: [facility] Diagnosis: SOB Spirometry Units Pred PreDrug Pre%Pred Post Post%Pred %Change FVC L,btps 2.42 1.75 72. 1.92 79. 10. FEV1 L,btps 1.64 1.31 80. 1.45 88. 10. FEV1/FVC (%) % 71. 75. 105. 75. 106. 0. EVB84-64% L/s 1.06 0.98 93. 1.20 114. 23. FEFmax L/s 5.01 4.95 99. 5.40 108. 9. MVV in,btps 77.69 49.76 64. Lung Volumes (Body Box) Units Pred PreDrug Pre%Pred TLC L,btps 4.97 VC L,btps 2.42 IC L,btps 1.77 FRC L,btps 3.21 ERV L,btps 0.66 RV L,btps 2.55 RV/TLC (%) % 51. VTG L,btps RAW H2O/L/s 1.44 SGaw cmH2O/L 0.22 Diffusion (DLCO) Units Pred PreDrug Pre%Pred DLCO ml/min/mmHg,stpd 19.64 11.41 58. DLCOHb ml/min/mmHg,stpd 19.64 11.41 58. VAsb L,btps 4.86 2.63 54. D/VAsb ml/min/mmHg/L,stpd 4.04 4.34 107. D/VAsbHb ml/min/mmHg/L,stpd 4.04 4.34 107. VInsp L 2.02 Hgb g/dl 14.60 COHb % Nitrogen Washout Units Pred PreDrug Pre%Pred TLC L,btps 4.97 4.14 83. VC L,btps 2.42 2.34 97. FRC L,btps 3.21 2.16 67. IC L,btps 1.77 1.98 112. ERV L,btps 0.66 0.36 54. RV L,btps 2.55 1.80 71. RV/TLC (%) % 51. 43. 85. Lung Mechanics Units Pred PreDrug Pre%Pred PImax /MIP cmH2O -58.57 PEmax /MEP cmH2O 106.29 [employer] NOTES Good Patient effort. Consistent results. Best results reported.Persistent coughing throughout testing.Calibration check passed with acceptable system performance. The patient performed all pre-test requirements. Not all quality indicators met for acceptability during N2 Washout testing. Effort with largest TLC selected. Pt has sob with any exertion. Pt has a moist pc through out the day frequently. Pt needed several breaks to rest due to coughing. Pt was given an Albuterol MDI x4 puffs via a spacer that was instructed and dispensed. 18808- PRE/[place] [address]- DLCO 99003- FRC GAS Tests to perform: [id number] - FULL PFT STUDY WITH BRONCHODILATOR PHYSICIAN INTERPRETATION Mild restrictive ventilatory impairment with moderately decrease in gas Exchange may be compatible with the Dx of restrictive lung disease Total lung Capacity is normal Border line response to BD therapy [facility] Work Phone: [facility] Work Phone: CT CHEST W CONTRASTOrdered B y: Jesse Sobia on 10-08-2020 Patient [facility]: [facility] [id number] Computed Tomography ACCESSION EXAM DATE/TIME PROCEDURE ORDERING PROVIDER [id number] 10/08/2020 10:[address] Thorax w/ Contrast MD RAMSAY ARIFA CPT code 15696 Q9967 Reason For Exam (CT Thorax w/ Contrast) SOB/ Pulmonary fibrosis Report Indication: Pulmonary fibrosis. Shortness of breath. CT examination of thorax with contrast. 75 mL of Isovue-370 contrast agent utilized. COMPARISON: Chest radiograph dated 06/20/2019. Linear markings the right and left lower lungs are compatible with linear atelectasis or scarring. Mild peribronchial thickening of the right and left lower lungs. No focal areas of consolidation. No pleural effusions. Right and left upper lungs appear normally aerated. No mediastinal, hilar or axillary adenopathy. An apparent right subclavian artery noted. Atherosclerotic calcifications of the thoracic aorta and coronary arteries noted. Normal heart size. No pericardial effusion. Images of the upper abdomen show no adrenal lesions. Fatty infiltration of the liver parenchyma noted. 1.7 x 0.9 cm low-density lesion in the medial inferior aspect right lobe is similar to the prior examination dated 05/26/2019. 2.7 cm low-density lesion in the left lobe of the liver is stable Bridging anterior osteophytes noted in the dorsal spine. IMPRESSION: Mild linear fibrotic changes versus linear atelectasis in the right and left lower lungs. Peribronchial thickening in the right and left lower lungs. Upper lungs are normally aerated. Report Dictated on --- Final --- Dictating Physician: MD ROBERTS LAURA Signed Date and Time: 10/08/2020 10:59 am Signed by: MD ROBERTS LAURA Transcribed Date and Time: 10/08/2020 11:00 [facility] Work Phone: [place], [facility] Incoming Radiology Results From [facility] - 10/08/2020 11:00 AM EDT Patient Name: [facility] [id number] Computed Tomography ACCESSION EXAM DATE/TIME PROCEDURE ORDERING PROVIDER [id number] 10/08/2020 10:[address] Thorax w/ Contrast MD SOBIA, [facility] CPT code 56946 Q9967 Reason For Exam (CT Thorax w/ Contrast) SOB/ Pulmonary fibrosis Report Indication: Pulmonary fibrosis. Shortness of breath. CT examination of thorax with contrast. 75 mL of Isovue-370 contrast agent utilized. COMPARISON: Chest radiograph dated 06/20/2019. Linear markings the right and left lower lungs are compatible with linear atelectasis or scarring. Mild peribronchial thickening of the right and left lower lungs. No focal areas of consolidation. No pleural effusions. Right and left upper lungs appear normally aerated. No mediastinal, hilar or axillary adenopathy. An apparent right subclavian artery noted. Atherosclerotic calcifications of the thoracic aorta and coronary arteries noted. Normal heart size. No pericardial effusion. Images of the upper abdomen show no adrenal lesions. Fatty infiltration of the liver parenchyma noted. 1.7 x 0.9 cm low-density lesion in the medial inferior aspect right lobe is similar to the prior examination dated 05/26/2019. 2.7 cm low-density lesion in the left lobe of the liver is stable Bridging anterior osteophytes noted in the dorsal spine. IMPRESSION: Mild linear fibrotic changes versus linear atelectasis in the right and left lower lungs. Peribronchial thickening in the right and left lower lungs. Upper lungs are normally aerated. Report Dictated on --- Final --- Dictating Physician: MD ROBERTS LAURA Signed Date and Time: 10/08/2020 10:59 am Signed by: MD ROBERTS LAURA Transcribed Date and Time: 10/08/2020 11:00 [facility] Work Phone: [facility] Work Phone: CT Chest w/ Contraston 10-08 CT Chest w/ Contrast Patient Name: DOROTEO BELTRÁN [facility]#: [id number] Computed Tomography ACCESSION EXAM DATE/TIME PROCEDURE ORDERING PROVIDER [id number] 10/08/2020 10:[address] Thorax w/ Contrast MD SOBIA, JESSE CPT code 44618 Q9967 Reason For Exam (CT Thorax w/ Contrast) SOB/ Pulmonary fibrosis Report Indication: Pulmonary fibrosis. Shortness of breath. CT examination of thorax with contrast. 75 mL of Isovue-370 contrast agent utilized. COMPARISON: Chest radiograph dated 06/20/2019. Linear markings the right and left lower lungs are compatible with linear atelectasis or scarring. Mild peribronchial thickening of the right and left lower lungs. No focal areas of consolidation. No pleural effusions. Right and left upper lungs appear normally aerated. No mediastinal, hilar or axillary adenopathy. An apparent right subclavian artery noted. Atherosclerotic calcifications of the thoracic aorta and coronary arteries noted. Normal heart size. No pericardial effusion. Images of the upper abdomen show no adrenal lesions. Fatty infiltration of the liver parenchyma noted. 1.7 x 0.9 cm low-density lesion in the medial inferior aspect right lobe is similar to the prior examination dated 05/26/2019. 2.7 cm low-density lesion in the left lobe of the liver is stable Bridging anterior osteophytes noted in the dorsal spine. IMPRESSION: Mild linear fibrotic changes versus linear atelectasis in the right and left lower lungs. Peribronchial thickening in the right and left lower lungs. Upper lungs are normally aerated. Report Dictated on Final Dictating Physician: MD ROBERTS LAURA Signed Date and Time: 10/08/2020 10:59 am Signed by: MD ROBERTS LAURA Transcribed Date and Time: 10/08/2020 11:00 Normal [facility] CBCOrdered By: Tono figueroa 10-07-2020 Hematocrit (Bld) [Volume fraction] 43.5 % 40.0 - 52.0 % [facility] Work Phone: Hemoglobin.gastrointesti nal spec 1 Ql (Stl) 15.2 g/dL 13.0 - 18.0 g/dL [facility] Work Phone: MCH (RBC) [Entitic mass] 30.7 pg 26. 0 - 34.0 pg [facility] Work Phone: MCHC (RBC) [Mass/Vol] 35.0 % 32.0 - 36.0 % [facility] Work Phone: MCV (RBC) [Entitic vol] 87.7 fL 80.0 - 98.0 fL [facility] Work Phone: Platelet distribution width (Bld) [Ratio] 14.3 % 11.5 - 14.5 % [facility] Work Phone: Platelet mean volume (Bld) [Entitic vol] 7.8 fL 7.4 - 10.4 fL [facility] Work Phone: Platelets (Bld) [#/Vol] 390 10*3/uL 140 - 440 10*3/uL [facility] Work Phone: RBC (Bld) [#/Vol] 4.96 10*6/uL 4.40 - 5.9 0 10*6/uL [facility] Work Phone: WBC (Bld) [#/Vol] 7.6 10*3/uL 3.6 - 10.7 10*3/uL [facility] Work Phone: Test Performed by [address] [address] [facility] Work Phone: [facility] Work Phone: CBC Auto DifferentialOrdered By: Tono Strong on 10-07-2020 Absolute Baso # 0.1 10*3/uL 0.0 - 0.2 10*3/uL [facility] Work Phone: Absolute Neut # 3.3 10*3/uL 1.8 - 7.0 10*3/uL [facility] Work Phone: Basophils/100 WBC (Bld) 1.2 % 0.0 - 2.0 % [facility] Work Phone: Eosinophils (Bld) [#/Vol] 0.4 10*3/uL 0.0 - 0.5 10*3/uL [facility] Work Phone: 1 Eosinophils/100 WBC (Bld) 5.5 % 1.0 - 6.0 % [facility] Work Phone: 1 Granulocytes/100 WBC (Bld) 44.4 % 40.0 - 80.0 % [facility] Work Phone: Hematocrit (Bld) [Volume fraction] 43.2 % 40.0 - 52.0 % [facility] Work Phone: Hemoglobin.gastrointesti nal spec 1 Ql (Stl) 15.1 g/dL 13.0 - 18.0 g/dL [facility] Work Phone: 1 Interpretation and review of laboratory results Abnormal [facility] Work Phone: Lymphocytes (Bld) [#/Vol] 2.6 10*3/uL 1.0 - 4.3 10*3/uL [facility] Work Phone: Lymphocytes/100 WBC (Bld) 34.3 % 20.0 - 40.0 % [facility] Work Phone: 1 MCH (RBC) [Entitic mass] 30.5 pg 26. 0 - 34.0 pg [facility] Work Phone: MCHC (RBC) [Mass/Vol] 34.8 % 32.0 - 36.0 % [facility] Work Phone: MCV (RBC) [Entitic vol] 87.5 fL 80.0 - 98.0 fL [facility] Work Phone: Monocytes (Bld) [#/Vol] 1.1 10*3/uL High 0.0 - 0.8 10*3/uL [facility] Work Phone: 1 Monocytes/100 WBC (Bld) 14.6 % High 2.0 - 10.0 % [facility] Work Phone: Platelet distribution width (Bld) [Ratio] 14.3 % 11.5 - 14.5 % [facility] Work Phone: Platelet mean volume (Bld) [Entitic vol] 7.6 fL 7.4 - 10.4 fL [facility] Work Phone: [phone] Platelets (Bld) [#/Vol] 410 10*3/uL 140 - 440 10*3/uL [facility] Work Phone: [phone] RBC (Bld) [#/Vol] 4.94 10*6/uL 4.40 - 5.9 0 10*6/uL [facility] Work Phone: [phone] WBC (Bld) [#/Vol] 7.5 10*3/uL 3.6 - 10.7 10*3/uL [facility] Work Phone: [phone] Test Performed by [facility], [address] [place] [address] [facility] Work Phone: [phone] [facility] Work Phone: [phone] Comp Metabolic Panelon 10-07 ALP [Catalytic activity/Vol] 45 U/L Normal 38-126 [facility] Comment on above: Performed By: #### H EMOG #### [facility] [address] [place] [address] ALT [Catalytic activity/Vol] 21 U/L Normal 0-49 [facility] Comment on above: Result Comment: The ALT test is performed by an updated assay method. Please note that the reference intervals have been changed and are now sex specific. Performed By: #### H EMOG #### [facility] [address] [place] [address] Anion gap [Moles/Vol] 6 mmol/L Normal 3-13 [facility] Comment on above: Performed By: #### H EMOG #### [facility] [address] [place] [address] AST [Catalytic activity/Vol] 38 U/L Normal 15-46 [facility] Comment on above: Performed By: #### H EMOG #### [facility] [address] [place] [address] Calcium [Mass/Vol] 9.4 mg/dL Normal 8.4-10.4 [facility] Comment on above: Performed By: #### H EMOG #### [facility] [address] [place] [address] CO2 [Moles/Vol] 24 mmol/L Normal 22-30 [facility] Comment on above: Performed By: #### H EMOG #### [facility] [address] [place] [address] Glucose [Mass/Vol] 91 mg/dL Normal 70-100 [facility] Comment on above: Performed By: #### H EMOG #### [facility] [address] [place] [address] Protein [Mass/Vol] 6.5 g/dL Normal 6.3-8.2 [facility] Comment on above: Performed By: #### H EMOG #### [facility] [address] [place] [address] Urea nitrogen [Mass/Vol] 9 mg/dL Normal 7-20 [facility] Comment on above: Performed By: #### H EMOG #### [facility] [address] [place] [address] Bilirubin [Mass/Vol] 1.0 mg/dL Normal 0.2-1.3 [facility] Comment on above: Performed By: #### H EMOG #### [facility] [address] [place] [address] Creatinine [Mass/Vol] 0.69 mg/dL Normal 0.52-1.25 [facility] Comment on above: Performed By: #### H EMOG #### [facility] [address] [place] [address] GFR/1.73 sq M.predicted among blacks MDRD (S/P/Bld) [Vol rate/Area] mL/min/{1.73_m2} Normal >60 [facility] Comment on above: Performed By: #### H EMOG #### [facility] [address] [place] [address] GFR/1.73 sq M.predicted among non-blacks MDRD (S/P/Bld) [Vol rate/Area] 89.1 mL/min/{1.73_m2} Normal >60 [facility] Comment on above: Result Comment: KDIG O guidelines provide the following GFR categories: Stage GFR(ml/min/1.73 m2) Terms G1 >=90 Normal or high G2 60-89 Mildly decreased* G3a 45-59 Mildly to moderately decreased G3b 30-44 Moderately to severely decreased G4 15-29 Severely decreased G5 <15 Kidney failure *Relative to young adult level. In the absence of evidence of kidney damage, neither GFR category G1 nor G2 fulfill the criteria for CKD. The CKD-EPI equation is validated in individuals 18 years of age and older. Currently the best equation for estimating glomerular filtration rate (GFR) from serum creatinine in children is the Bedside Adorno equation. It is less accurate in patients with extremes of muscle mass, restriction of dietary protein, ingestion of creatine, extra-renal metabolism of creatinine, or treatment with medications that affect renal tubular creatinine secretion. Performed By: #### H EMOG #### [facility] [address] [place] [address] Albumin [Mass/Vol] 4.0 g/dL Normal 3.5-5.0 [facility] Comment on above: Performed By: #### H EMOG #### [facility] [address] [place] [address] Chloride [Moles/Vol] 98 mmol/L Normal 98-107 [facility] Comment on above: Performed By: #### H EMOG #### [facility] [address] [place] [address] Potassium [Moles/Vol] 3.9 mmol/L Normal 3.5-5.1 [facility] Comment on above: Performed By: #### H EMOG #### [facility] [address] [place] [address] Sodium [Moles/Vol] 129 mmol/L Low 135-145 [facility] Comment on above: Performed By: #### H EMOG #### [facility] [address] [place] [address] Comprehensive Metabolic Pane lOrdered By: Tono Strong on 10-07-2020 Albumin [Mass/Vol] 4.0 g/dL 3.5 - 5.0 g/dL [facility] Work Phone: ALP (Bld) [Catalytic activity/Vol] 45 U/L 38 - 126 U/L [facility] Work Phone: ALT [Catalytic activity/Vol] 21 U/L 0 - 49 U/L [facility] Work Phone: Comment on above: The ALT test is perf ormed by an updated assay method. Please note that the reference intervals have been changed and are now sex specific. Anion gap [Moles/Vol] 6 mmol/L 3 - 13 mmol/L [facility] Work Phone: AST [Catalytic activity/Vol] 38 U/L 15 - 46 U/L [facility] Work Phone: Bilirubin [Mass/Vol] 1.0 mg/dL 0.2 - 1 .3 mg/dL [facility] Work Phone: Calcium [Mass/Vol] 9.4 mg/dL 8.4 - 10. 4 mg/dL [facility] Work Phone: Chloride [Moles/Vol] 98 mmol/L 98 - 10 7 mmol/L [facility] Work Phone: CO2 [Moles/Vol] 24 mmol/L 22 - 30 mmol/L [facility] Work Phone: Creatinine [Mass/Vol] 0.69 mg/dL 0.52 - 1.25 mg/dL [facility] Work Phone: EGFR IF NonAfrican [place]ian 89.1 mL/min >60 [facility] Work Phone: Comment on above: KDIGO guidelines pro vide the following GFR categories: Stage GFR(ml/min/1.73 m2) Terms G1 >=90 Normal or high G2 60-89 Mildly decreased* G3a 45-59 Mildly to moderately decreased G3b 30-44 Moderately to severely decreased G4 15-29 Severely decreased G5 <15 Kidney failure *Relative to young adult level. In the absence of evidence of kidney damage, neither GFR category G1 nor G2 fulfill the criteria for CKD. The CKD-EPI equation is validated in individuals 18 years of age and older. Currently the best equation for estimating glomerular filtration rate (GFR) from serum creatinine in children is the Bedside Adorno equation. It is less accurate in patients with extremes of muscle mass, restriction of dietary protein, ingestion of creatine, extra-renal metabolism of creatinine, or treatment with medications that affect renal tubular creatinine secretion. Free PSA/Total PSA [Mass fraction] 6.5 g/dL 6.3 - 8.2 g/dL [facility] Work Phone: GFR/1.73 sq M.predicted among blacks MDRD (S/P/Bld) [Vol rate/Area] mL/min/{1.73_m2} >60 mL/min [facility] Work Phone: Glucose [Mass/Vol] 91 mg/dL 70 - 100 mg/dL [facility] Work Phone: Interpretation and review of laboratory results Abnormal [facility] Work Phone: Potassium [Moles/Vol] 3.9 mmol/L 3.5 - 5.1 mmol/L [facility] Work Phone: Sodium [Moles/Vol] 129 mmol/L Low 135 - 145 mmol/L [facility] Work Phone: Urea nitrogen (BldV) [Mass/Vol] 9 mg/dL 7 - 20 mg/dL [facility] Work Phone: ECHO Complete 2D W Doppler W ColorOrdered By: Tono Strong on 10-07-2020 TRANSTHORACIC ECHOCARDIOGRAM PATIENT: Doroteo Gong STUDY DATE: 10/07/2020 : 1940 AGE: 79 HT/WT: 152.4 cm (60 81.7 kg in) (179.6 lb) GENDER: M BP: 133 / 78 LOCATION: [facility] PATIENT [facility] STATUS: *ORDERING PHYSICIAN: * Tono Strong *READING PHYSICIAN: * Lawson Guy, *MARKETING CONTENT COORDINATOR: * Jenni Mo MD -- INDICATIONS: Suspected CHF. -- CONCLUSIONS SUMMARY: 1. Left ventricle: Systolic function is normal by visual assessment. The estimated ejection fraction is 55%. There are no regional wall motion abnormalities. Doppler parameters are consistent with abnormal left ventricular relaxation (grade 1 diastolic dysfunction). 2. Right ventricle: The cavity size is normal. Systolic function is mildly decreased by visual assessment. Right ventricular systolic pressure is within the normal range. The RV pressure during systole by Doppler is 29 mm Hg. 3. Right atrium: Central venous pressure (est): 3 mm Hg. 4. No significant valve disease. -- STUDY DATA: Complete transthoracic echocardiogram. Procedure: Image quality was poor. The study was technically limited due to poor acoustic window availability, body habitus, and respiratory interference. Intravenous imaging enhancement (Definity) was administered to opacify the chamber. Definity lot #: [id number]. M-mode, complete 2D, complete spectral Doppler, and color flow Doppler images were acquired and archived for permanent storage and are available for subsequent review. Study status: Routine. Patient status: Inpatient. ECG RHYTHM: NSR -- FINDINGS LEFT VENTRICLE: Not well visualized. The cavity size is normal. Wall thickness is normal. Systolic function is normal by visual assessment. The estimated ejection fraction is 55%. There are no regional wall motion abnormalities. There is an increased relative contribution of atrial contraction to ventricular filling. The tissue Doppler parameters are abnormal. Doppler parameters are consistent with abnormal left ventricular relaxation (grade 1 diastolic dysfunction). E/e' average: 9.9 RIGHT VENTRICLE: Not well visualized. The cavity size is normal. Systolic function is mildly decreased by visual assessment. Right ventricular systolic pressure is within the normal range. VENTRICULAR SEPTUM: There is no evidence of a ventricular septal defect. LEFT ATRIUM: Not well visualized. The atrium is normal in size. RIGHT ATRIUM: Not well visualized. ATRIAL SEPTUM: Color Doppler shows no shunt. MITRAL VALVE: Structurally normal valve. Doppler: There is no significant regurgitation. AORTIC VALVE: Not well visualized. Probably trileaflet; mildly thickened leaflets. Doppler: There is no significant regurgitation. The peak systolic gradient is 5 mm Hg. The peak systolic velocity is 1.1 m/sec. TRICUSPID VALVE: Structurally normal valve. Doppler: There is trivial, less than 1+ regurgitation. PULMONIC VALVE: Structurally normal valve. Doppler: There is trivial, less than 1+ regurgitation. AORTA: The aorta is poorly visualized and normal. PULMONARY ARTERY: Main pulmonary artery: Normal. PERICARDIUM: There is no pericardial effusion. SYSTEMIC VEINS: Inferior vena cava: The vessel is normal. The IVC collapses by greater than 50% with inspiration. -- Measurements Value Reference Aortic root ID 3.6 cm <4.1 Aortic root ID, STJ, ED 2.9 cm 2.3 - 3.5 Aortic root ID/bsa, STJ, ED 1.5 cm/m^2 1.1 - 1.9 Value Reference Ascending aorta ID 3.6 cm 2.2 - 3.8 Ascending aorta ID/bsa, A-P 1.9 cm/m^2 1.1 - 1.9 Ascending aorta ID, A-P, S 3.6 cm Ascending aorta ID/bsa, A-P, S 1.9 cm/m^2 Left ventricle Value Reference Stroke volume/bsa, 1-p A2C 15.7 ml/m^2 LV end-diastolic volume, 1-p A4C 74 ml 69 - 185 LV end-systolic volume, 1-p A4C 42 ml 22 - 78 LV end-diastolic volume, 2-p 65 ml 62 - 150 LV end-systolic volume, 2-p 35 ml 21 - 61 LV ejection fraction, 2-p (L) 47 % 52 - 72 LV E/e', lateral 7.9 LV E/e', medial (more content not included)... [facility] Work Phone: [place], [facility] Incoming Cardiology Results From Kadeem/Andrew - 10/07/2020 1:27 PM EDT TRANSTHORACIC ECHOCARDIOGRAM PATIENT: Doroteo Gong STUDY DATE: 10/07/2020 : 1940 AGE: 79 HT/WT: 152.4 cm (60 81.7 kg in) (179.6 lb) GENDER: M BP: 133 / 78 LOCATION: [facility] PATIENT Inpatient [facility] STATUS: *ORDERING PHYSICIAN: * Tono Strong *READING PHYSICIAN: * Lawson Guy, *MARKETING CONTENT COORDINATOR: * Jenni Mo MD -- INDICATIONS: Suspected CHF. -- CONCLUSIONS SUMMARY: 1. Left ventricle: Systolic function is normal by visual assessment. The estimated ejection fraction is 55%. There are no regional wall motion abnormalities. Doppler parameters are consistent with abnormal left ventricular relaxation (grade 1 diastolic dysfunction). 2. Right ventricle: The cavity size is normal. Systolic function is mildly decreased by visual assessment. Right ventricular systolic pressure is within the normal range. The RV pressure during systole by Doppler is 29 mm Hg. 3. Right atrium: Central venous pressure (est): 3 mm Hg. 4. No significant valve disease. -- STUDY DATA: Complete transthoracic echocardiogram. Procedure: Image quality was poor. The study was technically limited due to poor acoustic window availability, body habitus, and respiratory interference. Intravenous imaging enhancement (Definity) was administered to opacify the chamber. Definity lot #: [id number]. M-mode, complete 2D, complete spectral Doppler, and color flow Doppler images were acquired and archived for permanent storage and are available for subsequent review. Study status: Routine. Patient status: Inpatient. ECG RHYTHM: NSR -- FINDINGS LEFT VENTRICLE: Not well visualized. The cavity size is normal. Wall thickness is normal. Systolic function is normal by visual assessment. The estimated ejection fraction is 55%. There are no regional wall motion abnormalities. There is an increased relative contribution of atrial contraction to ventricular filling. The tissue Doppler parameters are abnormal. Doppler parameters are consistent with abnormal left ventricular relaxation (grade 1 diastolic dysfunction). E/e' average: 9.9 RIGHT VENTRICLE: Not well visualized. The cavity size is normal. Systolic function is mildly decreased by visual assessment. Right ventricular systolic pressure is within the normal range. VENTRICULAR SEPTUM: There is no evidence of a ventricular septal defect. LEFT ATRIUM: Not well visualized. The atrium is normal in size. RIGHT ATRIUM: Not well visualized. ATRIAL SEPTUM: Color Doppler shows no shunt. MITRAL VALVE: Structurally normal valve. Doppler: There is no significant regurgitation. AORTIC VALVE: Not well visualized. Probably trileaflet; mildly thickened leaflets. Doppler: There is no significant regurgitation. The peak systolic gradient is 5 mm Hg. The peak systolic velocity is 1.1 m/sec. TRICUSPID VALVE: Structurally normal valve. Doppler: There is trivial, less than 1+ regurgitation. PULMONIC VALVE: Structurally normal valve. Doppler: There is trivial, less than 1+ regurgitation. AORTA: The aorta is poorly visualized and normal. PULMONARY ARTERY: Main pulmonary artery: Normal. PERICARDIUM: There is no pericardial effusion. SYSTEMIC VEINS: Inferior vena cava: The vessel is normal. The IVC collapses by greater than 50% with inspiration. -- Measurements Value Reference Aortic root ID 3.6 cm <4.1 Aortic root ID, STJ, ED 2.9 cm 2.3 - 3.5 Aortic root ID/bsa, STJ, ED 1.5 cm/m^2 1.1 - 1.9 Value Reference Ascending aorta ID 3.6 cm 2.2 - 3.8 Ascending aorta ID/bsa, A-P 1.9 cm/m^2 1.1 - 1.9 Ascending aorta ID, A-P, S 3.6 cm Ascending aorta ID/bsa, A-P, S 1.9 cm/m^2 Left ventricle Value Reference Stroke volume/bsa, 1-p A2C 15.7 ml/m^2 LV end-diastolic volume, 1-p A4C 74 ml 69 - 185 LV end-systolic volume, 1-p A4C 42 ml 22 - 78 LV end-diastolic volume, 2-p 65 ml 62 - 150 LV end-systolic volume, 2-p 35 ml 21 - 61 LV ejection fraction, 2-p (L) 47 % 52 - 72 LV E/e', lateral 7.9 LV E/e', medial 13.3 LV E/e', average 9.9 LVOT Value Reference LVOT ID, A-P 1.9 cm LVOT mean velocity, S 0.7 m/sec LVOT peak gradient, S 5 mm Hg Stroke volume (SV), LVOT DP 64 ml Stroke index (SV/bsa), LVOT DP 34 ml/m^2 Aortic valve Value Reference Aortic valve peak v (more content not included)... [facility] Work Phone: [facility] Work Phone: Echo Complete w/wo Contrasto n 10-07-2020 Echo Complete w/wo Contrast Patient Name: DOROTEO GONG Ultrasound ACCESSION EXAM DATE/TIME PROCEDURE ORDERING PROVIDER [id number] 10/07/2020 11:25 EDT Echo Complete w/wo [id number] -TONO STRONG Reason For Exam (Echo Complete w/wo Contrast) suspected chf Report TRANSTHORACIC ECHOCARDIOGRAM PATIENT: Doroteo Gong STUDY DATE: 10/07/2020 : 1940 AGE: 79 HT/WT: 152.4 cm (60 81.7 kg in) (179.6 lb) GENDER: M BP: 133 / 78 LOCATION: [facility] PATIENT [facility] STATUS: *ORDERING PHYSICIAN: * Tono Strong *READING PHYSICIAN: * Lawson Guy, *MARKETING CONTENT COORDINATOR: * Jenni Mo MD -- INDICATIONS: Suspected CHF. -- CONCLUSIONS SUMMARY: 1. Left ventricle: Systolic function is normal by visual assessment. The estimated ejection fraction is 55%. There are no regional wall motion abnormalities. Doppler parameters are consistent with abnormal left ventricular relaxation (grade 1 diastolic dysfunction). 2. Right ventricle: The cavity size is normal. Systolic function is mildly decreased by visual assessment. Right ventricular systolic pressure is within the normal range. The RV pressure during systole by Doppler is 29 mm Hg. 3. Right atrium: Central venous pressure (est): 3 mm Hg. 4. No significant valve disease. -- STUDY DATA: Complete transthoracic echocardiogram. Procedure: Image quality was poor. The study was technically limited due to poor acoustic window availability, body habitus, and respiratory interference. Intravenous imaging enhancement (Definity) was administered to opacify the chamber. Definity lot #: [id number]. M-mode, complete 2D, complete spectral Doppler, and color flow Doppler images were acquired and archived for permanent storage and are available for subsequent review. Study status: Routine. Patient status: Inpatient. ECG RHYTHM: NSR Ultrasound Report -- FINDINGS LEFT VENTRICLE: Not well visualized. The cavity size is normal. Wall thickness is normal. Systolic function is normal by visual assessment. The estimated ejection fraction is 55%. There are no regional wall motion abnormalities. There is an increased relative contribution of atrial contraction to ventricular filling. The tissue Doppler parameters are abnormal. Doppler parameters are consistent with abnormal left ventricular relaxation (grade 1 diastolic dysfunction). E/e' average: 9.9 RIGHT VENTRICLE: Not well visualized. The cavity size is normal. Systolic function is mildly decreased by visual assessment. Right ventricular systolic pressure is within the normal range. VENTRICULAR SEPTUM: There is no evidence of a ventricular septal defect. LEFT ATRIUM: Not well visualized. The atrium is normal in size. RIGHT ATRIUM: Not well visualized. ATRIAL SEPTUM: Color Doppler shows no shunt. MITRAL VALVE: Structurally normal valve. Doppler: There is no significant regurgitation. AORTIC VALVE: Not well visualized. Probably trileaflet; mildly thickened leaflets. Doppler: There is no significant regurgitation. The peak systolic gradient is 5 mm Hg. The peak systolic velocity is 1.1 m/sec. TRICUSPID VALVE: Structurally normal valve. Doppler: There is trivial, less than 1+ regurgitation. PULMONIC VALVE: Structurally normal valve. Doppler: There is trivial, less than 1+ regurgitation. AORTA: The aorta is poorly visualized and normal. PULMONARY ARTERY: Main pulmonary artery: Normal. PERICARDIUM: There is no pericardial effusion. SYSTEMIC VEINS: Inferior vena cava: The vessel is normal. The IVC collapses by greater than 50% with inspiration. -- Measurements Value Reference Aortic root ID 3.6 cm <4.1 Aortic root ID, STJ, ED 2.9 cm 2.3 - 3.5 Aortic root ID/bsa, STJ, ED 1.5 cm/m^2 1.1 - 1.9 Value Reference Ascending aorta ID 3.6 cm 2.2 - 3.8 Ascending aorta ID/bsa, A-P 1.9 cm/m^2 1.1 - 1.9 Ascending aorta ID, A-P, S 3.6 cm Ascending aorta ID/bsa, A-P, S 1.9 cm/m^2 Left ventricle Value Reference Stroke volume/bsa, 1-p A2C 15.7 ml/m^2 LV end-diastolic volume, 1-p A4C 74 ml 69 - 185 LV end-systolic volume, 1-p A4C 42 ml 22 - 78 LV end-diastolic volume, 2-p 65 ml 62 - 150 LV end-systolic volume, 2-p 35 ml 21 - 61 LV ejection fraction, 2-p (L) 47 % 52 - 72 LV E/e', lateral 7.9 LV E/e', medial 13.3 LV E/e', average 9.9 LVOT Value Reference Ultrasound Report LVOT ID, A-P 1.9 cm LVOT mean velocity, S 0.7 m/sec LVOT peak (more content not included)... Normal [facility] Glucose,Bedsideon 10-07-2020 Glucose [Mass/Vol] 98 mg/dL Normal 70-100 [facility] Comment on above: Result Comment: Test performed by glucose meter. Results may be 10%-15% lower than serum/plasma values. (CLIA ID [id number]) Performed By: #### H EMOG #### [facility] [address] [place] [address] Hemogramon 10-07-2020 Erythrocyte distribution width (RBC) [Ratio] 14.3 % Normal 11.5-14.5 [facility] Comment on above: Performed By: #### H EMOG #### [facility] [address] [place] [address] Hematocrit (Bld) [Volume fraction] 43.5 % Normal 40.0-52.0 [facility] Comment on above: Performed By: #### H EMOG #### [facility] [address] [place] [address] Hemoglobin (Bld) [Mass/Vol] 15.2 g/dL Normal 13.0-18.0 [facility] Comment on above: Performed By: #### H EMOG #### [facility] [address] [place] [address] MCH (RBC) [Entitic mass] 30.7 pg Normal 26.0-34.0 [facility] Comment on above: Performed By: #### H EMOG #### [facility] [address] [place] [address] MCHC 35.0 % Normal 32.0-36.0 [facility] Comment on above: Performed By: #### H EMOG #### [facility] [address] [place] [address] MCV (RBC) [Entitic vol] 87.7 fL Normal 80.0-98.0 S [facility] Comment on above: Performed By: #### H EMOG #### [facility] [address] [place] [address] Platelet mean volume (Bld) [Entitic vol] 7.8 fL Normal 7.4-10.4 [facility] Comment on above: Performed By: #### H EMOTriston #### [facility] [address] [place] [address] Platelets (Bld) [#/Vol] 390 10*3/uL Normal 140-440 [facility] Comment on above: Performed By: #### H EMOTriston #### [facility] [address] [place] [address] RBC (Bld) [#/Vol] 4.96 10*6/uL Normal 4.40-5.90 [facility] Comment on above: Performed By: #### H EMOTriston #### [place] [address] [place] [address] WBC (Bld) [#/Vol] 7.6 10*3/uL Normal 3.6-10.7 [facility] Comment on above: Performed By: #### H EMOTriston #### [facility] [address] [place] [address] Hemogram w/ Autodiffon 10-07 Abs Baso Cnt 0.1 10*3/uL Normal 0.0-0.2 [facility] Comment on above: Performed By: #### C MP3, HEMDF, TROPN #### [facility] [address] [place] [address] Abs Neutrophile Cnt 3.3 10*3/uL Normal 1.8-7.0 [facility] Comment on above: Performed By: #### C MP3, HEMDF, TROPN #### [facility] [address] [place] [address] Basophils/100 WBC (Bld) 1.2 % Normal 0.0-2.0 S [facility] Comment on above: Performed By: #### C MP3, HEMDF, TROPN #### [facility] [address] [place] [address] Eosinophils (Bld) [#/Vol] 0.4 10*3/uL Normal 0.0-0.5 [facility] Comment on above: Performed By: #### C MP3, HEMDF, TROPN #### [facility] [address] [place] [address] Eosinophils/100 WBC (Bld) 5.5 % Normal 1.0-6.0 [facility] Comment on above: Performed By: #### C MP3, HEMDF, TROPN #### [facility] [address] [place] [address] Erythrocyte distribution width (RBC) [Ratio] 14.3 % Normal 11.5-14.5 [facility] Comment on above: Performed By: #### C MP3, HEMDF, TROPN #### [facility] [address] [place] [address] Granulocytes/100 WBC (Bld) 44.4 % Normal 40.0-80.0 [facility] Comment on above: Performed By: #### C MP3, HEMDF, TROPN #### [facility] [address] [place] [address] Hematocrit (Bld) [Volume fraction] 43.2 % Normal 40.0-52.0 [facility] Comment on above: Performed By: #### C MP3, HEMDF, TROPN #### [facility] [address] [place] [address] Hemoglobin (Bld) [Mass/Vol] 15.1 g/dL Normal 13.0-18.0 [facility] Comment on above: Performed By: #### C MP3, HEMDF, TROPN #### [facility] [address] [place] [address] Lymphocytes (Bld) [#/Vol] 2.6 10*3/uL Normal 1.0-4.3 [facility] Comment on above: Performed By: #### C MP3, HEMDF, TROPN #### [facility] [address] [place] [address] Lymphocytes/100 WBC (Bld) 34.3 % Normal 20.0-40.0 [facility] Comment on above: Performed By: #### C MP3, HEMDF, TROPN #### [facility] [address] [place] [address] MCH (RBC) [Entitic mass] 30.5 pg Normal 26.0-34.0 [facility] Comment on above: Performed By: #### C MP3, HEMDF, TROPN #### [facility] [address] [place] [address] MCHC 34.8 % Normal 32.0-36.0 [facility] Comment on above: Performed By: #### C MP3, HEMDF, TROPN #### [facility] [address] [place] [address] MCV (RBC) [Entitic vol] 87.5 fL Normal 80.0-98.0 [facility] Comment on above: Performed By: #### C MP3, HEMDF, TROPN #### [facility] [address] [place] [address] Monocytes (Bld) [#/Vol] 1.1 10*3/uL High 0.0-0.8 [facility] Comment on above: Performed By: #### C MP3, HEMDF, TROPN #### [facility] [address] [place] [address] Monocytes/100 WBC (Bld) 14.6 % High 2.0-10.0 S [facility] Comment on above: Performed By: #### C MP3, HEMDF, TROPN #### [facility] [address] [place] [address] Platelet mean volume (Bld) [Entitic vol] 7.6 fL Normal 7.4-10.4 [facility] Comment on above: Performed By: #### C MP3, HEMDF, TROPN #### [facility] [address] [place] [address] Platelets (Bld) [#/Vol] 410 10*3/uL Normal 140-440 [facility] Comment on above: Performed By: #### C MP3, HEMDF, TROPN #### [facility] [address] [place] [address] RBC (Bld) [#/Vol] 4.94 10*6/uL Normal 4.40-5.90 [facility] Comment on above: Performed By: #### C MP3, HEMDF, TROPN #### [facility] [address] [place] [address] WBC (Bld) [#/Vol] 7.5 10*3/uL Normal 3.6-10.7 [facility] Comment on above: Performed By: #### C MP3, HEMDF, TROPN #### [facility] [address] [place] [address] MAGNESIUMOrdered By: Tono Strong on 10-07-2020 Magnesium [Mass/Vol] 1.7 mg/dL 1.6 - 2 .3 mg/dL [facility] Work Phone: Magnesiumon 10-07-2020 Magnesium [Mass/Vol] 1.7 mg/dL Normal 1.6-2.3 [facility] Comment on above: Performed By: #### H EMOG #### [facility] [address] [place] [address] No Panel InformationOrdered By: Tono Strong on 10-07-2020 Test Performed by [facility], [facility] [address] [place] [address] [facility] Work Phone: [facility] Work Phone: POCT GlucoseOrdered By: Emory Daly on 10-07-2020 Glucose [Mass/Vol] 98 mg/dL 70 - 100 mg/dL [facility] Work Phone: Comment on above: Test performed by ucose meter. Results may be 10%-15% lower than serum/plasma values. (CLIA ID [id number]) Test Performed by [facility], [address] [place] [address] [facility] Work Phone: [facility] Work Phone: Brain Natriuretic PeptideOrd ered By: Tono Strong on 10-06-2020 Natriuretic peptide B (Bld) [Mass/Vol] 79 pg/mL 0 - 450 pg/mL [facility] Work Phone: COVID and Resp PCR Panelon 0 10-06-2020 SARS-CoV-2 (COVID-19) RNA JANIE+probe Ql (Unsp spec) COVID and Resp PCR Panel --> Status: F NEGATIVE: No targets were detected by the [employer] Upper Respiratory Pathogens PCR Panel. _ Expected Result: Not Detected The [employer] Upper Respiratory Pathogens PCR Panel can detect the following targets: SARS-CoV-2, Adenovirus, Coronavirus 229E, Coronavirus HKU1, Coronavirus NL63, Coronavirus OC43, Human Metapneumovirus, Human Rhinovirus/Enterovirus, Influenza A, Influenza B, Parainfluenza Virus 1, Parainfluenza Virus 2, Parainfluenza Virus 3, Parainfluenza Virus 4, Respiratory Syncytial Virus, Bordetella pertussis, Bordetella parapertussis, Chlamydia pneumoniae, Mycoplasma pneumoniae. Negative results do not preclude SARS-CoV-2 infection and should not be used as the sole basis for treatment or other patient management decisions. This assay was developed by [employer] and distributed under an Emergency Use Authorization (EUA) granted by the FDA for the qualitative detection of SARS-CoV-2 nucleic acid. Provider and patient fact sheets can be found at https://www.fda.gov/med ia/295778/download and https://www.fda.gov/med ia/903284/download. Respiratory Pathogens PCR Panel. _ Expected Result: Not Detected The [employer] Upper Respiratory Pathogens PCR Panel can detect the following targets: SARS-CoV-2, Adenovirus, Coronavirus 229E, Coronavirus HKU1, Coronavirus NL63, Coronavirus OC43, Human Metapneumovirus, Human Rhinovirus/Enterovirus, Influenza A, Influenza B, Parainfluenza Virus 1, Parainfluenza Virus 2, Parainfluenza Virus 3, Parainfluenza Virus 4, Respiratory Syncytial Virus, Bordetella pertussis, Bordetella parapertussis, Chlamydia pneumoniae, Mycoplasma pneumoniae. Negative results do not preclude SARS-CoV-2 infection and should not be used as the sole basis for treatment or other patient management decisions. This assay was developed by [employer] and distributed under an Emergency Use Authorization (EUA) granted by the FDA for the qualitative detection of SARS-CoV-2 nucleic acid. Provider and patient fact sheets can be found at https://www.fda.gov/med ia/155974/download and https://www.fda.gov/med ia/390391/download. Normal [facility] Comment on above: Performed By: #### B FRP2 #### [address] [address] CR Abdomen APon 10-06-2020 CR Abdomen AP Patient Name: DOROTEO GONG Diagnostic Radiology ACCESSION EXAM DATE/TIME PROCEDURE ORDERING PROVIDER [id number] 10/06/2020 05:04 EDT CR Abdomen AP Alonso QUEZADAANDAROOPA CPT code 46601 Reason For Exam (CR Abdomen AP) constipation Report Indication: Constipation. Findings and impression: Frontal abdomen. There is increased gas within bowel, nonspecific. No free air. Lung bases clear. The findings may reflect constipation in the appropriate setting. Consider follow-up. Report Dictated on Workstation: [employer] Final Dictating Physician: MD MAURO JOHN Signed Date and Time: 10/06/2020 5:46 am Signed by: MD MAURO JOHN Transcribed Date and Time: 10/06/2020 5:47 Normal [facility] EKG 12 Lead - Chest PainOrde red By: Garima Rivero on 10-06-2020 [facility] Test Date: 2020-10-05 Pat Name: DOROTEO GONG Department: 01 Room: 254 Gender: M Clinical Team Manager: TODD : 1940 Requested By: GARIMA RIVERO Order Number: [id number] Reading MD: Mark Marrero Measurements Intervals [place] Rate: 88 P: 20 ID: [id number] QRS: -87 QRSD: 138 T: 1 QT: 388 QTc: 470 Interpretive Statements SINUS RHYTHM RIGHT BUNDLE BRANCH BLOCK LAFB Electronically Signed On 10-06-2020 13:42:23 EDT by Mark MCINTYRE Work Phone: [place], [facility] Incoming Cardiology Results From [facility] - 10/06/2020 1:43 PM EDT [facility] Test Date: 2020-10-05 Pat Name: DOROTEO GONG Department: 01 Room: 254 Gender: M Clinical Team Manager: TODD : 1940 Requested By: GARIMA RIVERO Order Number: [id number] Reading MD: Mark Marrero Measurements Intervals [place] Rate: 88 P: 20 ID: [id number] QRS: -87 QRSD: 138 T: 1 QT: 388 QTc: 470 Interpretive Statements SINUS RHYTHM RIGHT BUNDLE BRANCH BLOCK LAFB Electronically Signed On 10-06-2020 13:42:23 EDT by Mark Marrero [facility] Work Phone: [phone] [facility] Work Phone: [phone] NT pro BNPon 10-06-2020 Natriuretic peptide B (Bld) [Mass/Vol] 79 pg/mL Normal 0-450 [facility] Comment on above: Order Comment: SLIGH T HEMOLYSIS Performed By: #### C MP3, HEMDF, TROPN #### [facility] [address] [place] [address] No Panel InformationOrdered By: Tono Strong on 10-06-2020 Test Performed by [facility], [address] [place], [place] [address] SLIGHT HEMOLYSIS [facility] Work Phone: [phone] [facility] Work Phone: [phone] Respiratory Panel, Molecular , with COVID-19 (Restricted: peds pts or suitable admitted adults)Ordered By: Garima Rivero on 10-06-2020 Respiratory Panel Molecular, with COVID NEGATIVE: No targets were detected by the [employer] Upper Respiratory Pathogens PCR Panel. _ Expected Result: Not Detected The [employer] Upper Respiratory Pathogens PCR Panel can detect the following targets: SARS-CoV-2, Adenovirus, Coronavirus 229E, Coronavirus HKU1, Coronavirus NL63, Coronavirus OC43, Human Metapneumovirus, Human Rhinovirus/Enterovirus, Influenza A, Influenza B, Parainfluenza Virus 1, Parainfluenza Virus 2, Parainfluenza Virus 3, Parainfluenza Virus 4, Respiratory Syncytial Virus, Bordetella pertussis, Bordetella parapertussis, Chlamydia pneumoniae, Mycoplasma pneumoniae. Negative results do not preclude SARS-CoV-2 infection and should not be used as the sole basis for treatment or other patient management decisions. This assay was developed by [employer] and distributed under an Emergency Use Authorization (EUA) granted by the FDA for the qualitative detection of SARS-CoV-2 nucleic acid. Provider and patient fact sheets can be found at https://www.fda.gov/med ia/795130/download and https://www.fda.gov/med ia/939809/download. [employer] Work Phone: Test Performed by [address] [address] [facility] Work Phone: [facility] Work Phone: TroponinOrdered By: Tono oliver on 10-06-2020 Troponin I.cardiac [Mass/Vol] ng/mL 0.000 - 0.034 ng/mL [facility] Work Phone: Comment on above: . Troponin Ion 10-06-2020 Troponin I.cardiac [Mass/Vol] ng/mL Normal 0.000-0.034 [facility] Comment on above: Order Comment: SLIGH T HEMOLYSIS Result Comment: . Performed By: #### C MP3, HEMDF, TROPN #### [facility] [address] [place] [address] XR ABDOMEN (KUB) (SINGLE AP VIEW)Ordered By: Roopa Alegria on 10-06-2020 Patient Name: DOROTEO GONG Diagnostic Radiology ACCESSION EXAM DATE/TIME PROCEDURE ORDERING PROVIDER [id number] 10/06/2020 05:04 EDT CR Abdomen AP 5816 -ROOPA ALEGRIA CPT code 63187 Reason For Exam (CR Abdomen AP) constipation Report Indication: Constipation. Findings and impression: Frontal abdomen. There is increased gas within bowel, nonspecific. No free air. Lung bases clear. The findings may reflect constipation in the appropriate setting. Consider follow-up. Report Dictated on Workstation: [employer] --- Final --- Dictating Physician: MD MAURO JOHN Signed Date and Time: 10/06/2020 5:46 am Signed by: MD MAURO JOHN Transcribed Date and Time: 10/06/2020 5:47 [facility] Work Phone: [place], [facility] Incoming Radiology Results From [facility] - 10/06/2020 5:47 AM EDT Patient Name: DOROTEO GONG Diagnostic Radiology ACCESSION EXAM DATE/TIME PROCEDURE ORDERING PROVIDER [id number] 10/06/2020 05:04 EDT CR Abdomen AP ROOPA BACON CPT code 42305 Reason For Exam (CR Abdomen AP) constipation Report Indication: Constipation. Findings and impression: Frontal abdomen. There is increased gas within bowel, nonspecific. No free air. Lung bases clear. The findings may reflect constipation in the appropriate setting. Consider follow-up. Report Dictated on --- Final --- Dictating Physician: MD MAURO JOHN Signed Date and Time: 10/06/2020 5:46 am Signed by: MD MAURO JOHN Transcribed Date and Time: 10/06/2020 5:47 [facility] Work Phone: [facility] Work Phone: COVID-19, RapidOrdered By: Donald Rivero on 10-05-2020 SARS-CoV-2 (COVID-19) RNA JANIE+probe Ql (Unsp spec) see below [facility] Work Phone: Comment on above: Not Detected Expected Result: Not Detected _ Isothermal nucleic acid amplification performed on the [employer] Now System by the [facility] Laboratory Negative results do not preclude SARS-CoV-2 infection and should not be used as the sole basis for treatment or other patient management decisions. This assay was developed by [employer] and distributed under an Emergency Use Authorization (EUA) granted by the FDA for the qualitative detection of SARS-CoV-2 nucleic acid. Provider and patient fact sheets can be found at https://www.fda.gov/media/773025/download and https://www.[employer]azmir.gov/media/694430/download. Test Performed by [facility], [address] [place], [place] [address] ORDER WAS CANCELLED 10/05/20 19:51, lab will order. [facility] Work Phone: [phone] [facility] Work Phone: CR Chest Portableon 10-06-19 21 CR Chest Portable Patient Name: [facility]ONG [facility] Rapid[facility]#: [id number] Diagnostic Radiology ACCESSION EXAM DATE/TIME PROCEDURE ORDERING PROVIDER [id number] 10/05/2020 17:46 EDT CR Chest Portable [id number] GARIMA LEÓN CPT code 17769 Reason For Exam (CR Chest Portable) Shortness of breath Report EXAM TYPE: RADIOLOGIC EXAMINATION, CHEST, SINGLE VIEW FRONTAL (CXR SINGLE VIEW) EXAM DATE AND TIME: 10/05/2020 5:46 PM EDT INDICATION: Shortness of breath COMPARISON: Chest radiograph on 06/20/2019 TECHNIQUE: A single frontal view of the thorax was obtained and reviewed. Special views: None. FINDINGS/IMPRESSION: 1. Lines/Tubes/Devices/Mane dware: None. 2. Lungs: Low lung volumes. Bibasilar atelectasis. Mild interstitial prominence, may be on the basis of mild edema, chronic fibrotic change or interstitial pneumonitis. No focal consolidation. 3. Pleura: No pneumothorax or large pleural effusions. 4. Heart and mediastinum: Normal heart size. Tortuous, atheromatous aorta. Report Dictated on Final Dictating Physician: MD MCCORMICK NEIL Signed Date and Time: 10/05/2020 6:05 pm Signed by: MD MCCORMCIK NEIL Transcribed Date and Time: 10/05/2020 6:06 Normal [facility] Comp Metabolic Panelon 10-05 ALP [Catalytic activity/Vol] 45 U/L Normal 38-126 [facility] Comment on above: Performed By: #### C MP3, HEMDF, TROPN #### [facility] [address] [place] [address] ALT [Catalytic activity/Vol] 22 U/L Normal 0-49 [facility] Comment on above: Result Comment: The ALT test is performed by an updated assay method. Please note that the reference intervals have been changed and are now sex specific. Performed By: #### C MP3, HEMDF, TROPN #### [facility] [address] [place] [address] Calcium [Mass/Vol] 9.8 mg/dL Normal 8.4-10.4 [facility] Comment on above: Performed By: #### C MP3, HEMDF, TROPN #### [facility] [address] [place] [address] Glucose [Mass/Vol] 82 mg/dL Normal 70-100 [facility] Comment on above: Performed By: #### C MP3, HEMDF, TROPN #### [facility] [address] [place] [address] Urea nitrogen [Mass/Vol] 9 mg/dL Normal 7-20 [facility] Comment on above: Performed By: #### C MP3, HEMDF, TROPN #### [facility] [address] [place] [address] Anion gap [Moles/Vol] 8 mmol/L Normal 3-13 [facility] Comment on above: Performed By: #### C MP3, HEMDF, TROPN #### [facility] [address] [place] [address] AST [Catalytic activity/Vol] 36 U/L Normal 15-46 [facility] Comment on above: Performed By: #### C MP3, HEMDF, TROPN #### [facility] [address] [place] [address] Bilirubin [Mass/Vol] 1.1 mg/dL Normal 0.2-1.3 [facility] Comment on above: Performed By: #### C MP3, HEMDF, TROPN #### [facility] [address] [place] [address] CO2 [Moles/Vol] 22 mmol/L Normal 22-30 [facility] Comment on above: Performed By: #### C MP3, HEMDF, TROPN #### [facility] [address] [place] [address] Creatinine [Mass/Vol] 0.81 mg/dL Normal 0.52-1.25 [facility] Comment on above: Performed By: #### C MP3, HEMDF, TROPN #### [facility] [address] [place] [address] GFR/1.73 sq M.predicted among blacks MDRD (S/P/Bld) [Vol rate/Area] mL/min/{1.73_m2} Normal >60 [facility] Comment on above: Performed By: #### C MP3, HEMDF, TROPN #### [facility] [address] [place] [address] GFR/1.73 sq M.predicted among non-blacks MDRD (S/P/Bld) [Vol rate/Area] 83.4 mL/min/{1.73_m2} Normal >60 [facility] Comment on above: Result Comment: KDIG O guidelines provide the following GFR categories: Stage GFR(ml/min/1.73 m2) Terms G1 >=90 Normal or high G2 60-89 Mildly decreased* G3a 45-59 Mildly to moderately decreased G3b 30-44 Moderately to severely decreased G4 15-29 Severely decreased G5 <15 Kidney failure *Relative to young adult level. In the absence of evidence of kidney damage, neither GFR category G1 nor G2 fulfill the criteria for CKD. The CKD-EPI equation is validated in individuals 18 years of age and older. Currently the best equation for estimating glomerular filtration rate (GFR) from serum creatinine in children is the Bedside Adorno equation. It is less accurate in patients with extremes of muscle mass, restriction of dietary protein, ingestion of creatine, extra-renal metabolism of creatinine, or treatment with medications that affect renal tubular creatinine secretion. Performed By: #### C MP3, HEMDF, TROPN #### [facility] [address] [place] [address] Protein [Mass/Vol] 7.2 g/dL Normal 6.3-8.2 [facility] Comment on above: Performed By: #### C MP3, HEMDF, TROPN #### [facility] [address] [place] [address] Chloride [Moles/Vol] 100 mmol/L Normal 98-107 [facility] Comment on above: Performed By: #### C MP3, HEMDF, TROPN #### [facility] [address] [place] [address] Potassium [Moles/Vol] 4.2 mmol/L Normal 3.5-5.1 [facility] Comment on above: Performed By: #### C MP3, HEMDF, TROPN #### [facility] [address] [place] [address] Sodium [Moles/Vol] 130 mmol/L Low 135-145 [facility] Comment on above: Performed By: #### C MP3, HEMDF, TROPN #### [facility] [address] [place] [address] Albumin [Mass/Vol] 4.5 g/dL Normal 3.5-5.0 [facility] Comment on above: Performed By: #### C MP3, HEMDF, TROPN #### [facility] [address] [place] [address] Comprehensive Metabolic Pane lOrdered By: Garima Rivero on 10-05-2020 Albumin [Mass/Vol] 4.5 g/dL 3.5 - 5.0 g/dL [facility] Work Phone: [phone] ALP (Bld) [Catalytic activity/Vol] 45 U/L 38 - 126 U/L [facility] Work Phone: [phone] ALT [Catalytic activity/Vol] 22 U/L 0 - 49 U/L [facility] Work Phone: [phone] Comment on above: The ALT test is perf ormed by an updated assay method. Please note that the reference intervals have been changed and are now sex specific. Anion gap [Moles/Vol] 8 mmol/L 3 - 13 mmol/L [facility] Work Phone: [phone] AST [Catalytic activity/Vol] 36 U/L 15 - 46 U/L [facility] Work Phone: [phone] Bilirubin [Mass/Vol] 1.1 mg/dL 0.2 - 1 .3 mg/dL [facility] Work Phone: [phone] Calcium [Mass/Vol] 9.8 mg/dL 8.4 - 10. 4 mg/dL [facility] Work Phone: [phone] Chloride [Moles/Vol] 100 mmol/L 98 - 10 7 mmol/L [facility] Work Phone: [phone] [Moles/Vol] 22 mmol/L 22 - 30 mmol/L [facility] Work Phone: [phone] Creatinine [Mass/Vol] 0.81 mg/dL 0.52 - 1.25 mg/dL [facility] Work Phone: [phone] EGFR IF NonAfrican [place]ian 83.4 mL/min >60 [facility] Work Phone: [phone] Comment on above: KDIGO guidelines pro vide the following GFR categories: Stage GFR(ml/min/1.73 m2) Terms G1 >=90 Normal or high G2 60-89 Mildly decreased* G3a 45-59 Mildly to moderately decreased G3b 30-44 Moderately to severely decreased G4 15-29 Severely decreased G5 <15 Kidney failure *Relative to young adult level. In the absence of evidence of kidney damage, neither GFR category G1 nor G2 fulfill the criteria for CKD. The CKD-EPI equation is validated in individuals 18 years of age and older. Currently the best equation for estimating glomerular filtration rate (GFR) from serum creatinine in children is the Bedside Adorno equation. It is less accurate in patients with extremes of muscle mass, restriction of dietary protein, ingestion of creatine, extra-renal metabolism of creatinine, or treatment with medications that affect renal tubular creatinine secretion. Free PSA/Total PSA [Mass fraction] 7.2 g/dL 6.3 - 8.2 g/dL [facility] Work Phone: [phone] GFR/1.73 sq M.predicted among blacks MDRD (S/P/Bld) [Vol rate/Area] mL/min/{1.73_m2} >60 mL/min [facility] Work Phone: [phone] Glucose [Mass/Vol] 82 mg/dL 70 - 100 mg/dL [facility] Work Phone: [phone] Interpretation and review of laboratory results Abnormal [facility] Work Phone: [phone] Potassium [Moles/Vol] 4.2 mmol/L 3.5 - 5.1 mmol/L [facility] Work Phone: [phone] Sodium [Moles/Vol] 130 mmol/L Low 135 - 145 mmol/L [facility] Work Phone: Urea nitrogen (BldV) [Mass/Vol] 9 mg/dL 7 - 20 mg/dL [facility] Work Phone: [phone] Test Performed by [facility], [address], [place], [place] [address] [facility] Work Phone: [facility] Work Phone: ED Provider Noteon 1 ED Provider Note Emergency DepartmentEncounter [facility] ED Patient: Doroteo Gong : 1940 Date of Evaluation: 10/05/2020 ED KEREN Provider: ABEBA Michel EDcare was supervised by Dr. Kathy Daly MD who independently examined and evaluated the patient. Please see their attestation note for further details. Chief Complaint Chief Complaint Patient presents with ? Shortness of Breath RAMPART I was wearing a N95 mask, gloves, surgical mask for the entirety of this encounter. Does this patient come from an ECF, SNF, Rehab, Custodial or other Congregate setting: no (If yes to above patient needs a Covid-19 test) Doroteo Gong is a 79 y.o. male whopresents to the emergency department for shortness of breath. Patient states that he has chronic shortness of breath over the years however states that it is worsening over the last month. Patient states that nothing happened significantly today that made him come in states overall it is worsening. Patient states that he does have asthma does use albuterol inhalers as needed has been using his albuterol inhalers. Patient states that he is not having any fevers. Patient states that he has been vaccinated for COVID-19 states his second dose of the Covid vaccine was in May. Patient denies any cough congestion. Patient states that shortness of breath is worse with ambulating. States shortness of breath is not positional. Patient states he is not having any chest pain today. However intermittently has had chest pain the last month. Patient states that he does have hyperlipidemia no history of heart attacks no hypertension no history of diabetes mellitus does not smoke. States that he does not have renal failure. Does not take any water pills. States that he does not have CHF Patient denies fevers, fatigue, chills, sweats, headaches, dizziness, lightheadedness, palpitations, leg swelling, abdominal pain, nausea, vomiting, constipation, diarrhea, dysuria, hematuria. ROS: At least 10 systems reviewed and otherwise acutely negative except as in the RAMPART. Past History Past Medical History: Diagnosis Date ? Arthritis knees hands ? Asthma ? Chronic pain ? GERD (gastroesophageal reflux disease) ? Hyperlipidemia ? Kidney stone 2012 ? Prostate disease ? Sleep apnea ? Thyroid disease Past Surgical History: Procedure Laterality Date ? APPENDECTOMY ? BACK SURGERY 2014 slipped disc ? CHOLECYSTECTOMY ? JOINT REPLACEMENT Right 2013 ? LITHOTRIPSY 3-4 times ? OTHER SURGICAL HISTORY hemorroid removed ? OTHER SURGICAL HISTORY Left 12/19/2017 stent placement, cystoscopy and pyelogram, Laser Lithotripsy ? SINUS SURGERY Social History Socioeconomic History ? Marital status: Single Spouse name: None ? Number of children: None ? Years of education: None ? Highest education level: None Occupational History ? None Tobacco Use ? Smoking status: Never Smoker ? Smokeless tobacco: Never Used Vaping Use ? Vaping Use: Never used Substance and Sexual Activity ? Alcohol use: No ? Drug use: No ? Sexual activity: None Other Topics Concern ? None Social History Narrative ? None Social Determinants of Health Financial Resource Strain: ? Difficulty of Paying Living Expenses: Food Insecurity: ? Worried About Running Out of Food in the Last Year: ? Ran Out of Food in the Last Year: Transportation Needs: ? Lack of Transportation (Medical): ? Lack of Transportation (Non-Medical): Physical Activity: ? Days of Exercise per Week: ? Minutes of Exercise per Session: Stress: ? Feeling of Stress : Social Connections: ? Frequency of Communication with Friends and Family: ? Frequency of Social Gatherings with Friends and Family: ? Attends Jainism Services: ? Active Member of Clubs or Organizations: ? Attends Club or Organization Meetings: ? Marital Status: Intimate Partner Violence: ? Fear of Current or Ex-Partner: ? Emotionally Abused: ? Physically Abused: ? Sexually Abused: Medications/Allergies Previous Medications ACETAMINOPHEN (TYLENOL) 500 MG TABLET Take 500 mg by mouth every 6 hours as needed for Pain ALBUTEROL (PROVENTIL) (2.5 MG/3ML) 0.083% NEBULIZER SOLUTION Take 2.5 mg by nebulization every 6 hours as needed for Wheezing ALBUTEROL SULFATE HFA 108 (90 BASE) MCG/ACT INHALER Inhale 2 puffs into the lungs every 6 hours as needed for Wheezing ALFUZOSIN (UROXATRAL) 10 MG EXTENDED RELEASE TABLET Take 10 mg by mouth daily CHLORPHENIRAMINE (CHLOR-TRIMETON) 4 MG TABLET Take 4 mg by mouth every 6 hours as needed for Allergies (for drainage) CYANOCOBALAMIN (VITAMIN B-12 PO) Take 1,000 mcg by mouth FINASTERIDE (PROSCAR) 5 MG TABLET Take 5 mg by mouth daily IPRATROPIUM (ATROVENT) 0.06 % NASAL SPRAY 2 sprays by Nasal route 4 times daily LEVOTHYROXINE (SYNTHROID) 50 MCG TABLET Take 50 mcg by mouth Daily LORATADINE (CLARITIN) 10 MG TABLET Take 10 mg by alejandro (more content not included)... Normal [facility] ED Provider Note Emergency Department Encounter [facility] ED Patient: Doroteo Gong : 1940 Date of Evaluation: 10/05/2020 ED Supervising Physician: Kathy Daly MD I independently examined and evaluated Doroteo Gong. In brief, Doroteo Gong is a 79 y.o. male that presents to the emergency department complaining of worsening shortness of breath over the last 30 days. Patient states that he has chronic shortness of breath due to chronic asthma. He states he does not normally wear oxygen at home. He denies cough, chest pain, fever. No recent injuries or illnesses. He states that the shortness of breath is exacerbated with minimal exertion to include ambulation. He states he has been using his albuterol inhalers more frequently but they only help momentarily. Focused exam: Awake, alert, in no apparent distress. Resting comfortably bed. Heart and lung sounds are normal. Abdomen is soft, nondistended, nontender with no masses. Brief ED course/MDM: Patient presents complaining of worsening shortness of breath over the last 30 days and increase use of his albuterol inhalers at home. Denies any cough or systemic symptoms. Work-up in the ED shows no clear etiology. Patient was ambulated in the ED and desaturated to 90 to 91% on room air. Given his subjective shortness of breath and desaturation he will be admitted for continued observation. All diagnostic, treatment, and disposition decisions were made by myself in conjunction with the KEREN. For all further details of the patient's emergency department visit, please see their documentation. (Please note that portions of this note may have been completed with a voice recognition program. Efforts were made to edit the dictations but occasionally words are mis-transcribed.) Kathy Daly MD Acute [facility] Kathy Daly MD 10/05/20 2351 Normal [facility] Hemogram (CBC) w/Auto DiffOr dered By: Garima Rivero on 10-05-2020 Absolute Baso # 0.1 10*3/uL 0.0 - 0.2 10*3/uL [facility] Work Phone: [phone] Absolute Neut # 3.8 10*3/uL 1.8 - 7.0 10*3/uL [facility] Work Phone: 1 Basophils/100 WBC (Bld) 1.2 % 0.0 - 2.0 % [facility] Work Phone: Eosinophils (Bld) [#/Vol] 0.2 10*3/uL 0.0 - 0.5 10*3/uL [facility] Work Phone: 1 22 Eosinophils/100 WBC (Bld) 3.1 % 1.0 - 6.0 % [facility] Work Phone: 1 22 Granulocytes/100 WBC (Bld) 54.3 % 40.0 - 80.0 % [facility] Work Phone: Hematocrit (Bld) [Volume fraction] 46.7 % 40.0 - 52.0 % [facility] Work Phone: 22 Hemoglobin.gastrointesti nal spec 1 Ql (Stl) 16.3 g/dL 13.0 - 18.0 g/dL [facility] Work Phone: [phone] Interpretation and review of laboratory results Abnormal [facility] Work Phone: 22 Lymphocytes (Bld) [#/Vol] 2.0 10*3/uL 1.0 - 4.3 10*3/uL [facility] Work Phone: 1 22 Lymphocytes/100 WBC (Bld) 28.1 % 20.0 - 40.0 % [facility] Work Phone: 1( MCH (RBC) [Entitic mass] 30.9 pg 26. 0 - 34.0 pg [facility] Work Phone: MCHC (RBC) [Mass/Vol] 34.9 % 32.0 - 36.0 % [facility] Work Phone: MCV (RBC) [Entitic vol] 88.4 fL 80.0 - 98.0 fL [facility] Work Phone: Monocytes (Bld) [#/Vol] 0.9 10*3/uL High 0.0 - 0.8 10*3/uL [facility] Work Phone: Monocytes/100 WBC (Bld) 13.3 % High 2.0 - 10.0 % [facility] Work Phone: Platelet distribution width (Bld) [Ratio] 14.2 % 11.5 - 14.5 % [facility] Work Phone: Platelet mean volume (Bld) [Entitic vol] 7.5 fL 7.4 - 10.4 fL [facility] Work Phone: Platelets (Bld) [#/Vol] 416 10*3/uL 140 - 440 10*3/uL [facility] Work Phone: RBC (Bld) [#/Vol] 5.28 10*6/uL 4.40 - 5.9 0 10*6/uL [facility] Work Phone: WBC (Bld) [#/Vol] 7.1 10*3/uL 3.6 - 10.7 10*3/uL [facility] Work Phone: Test Performed by [facility] [employer], [address], [place], [place] [address] [facility] Work Phone: [facility] Work Phone: Hemogram w/ Autodiffon 10-05 Abs Baso Cnt 0.1 10*3/uL Normal 0.0-0.2 [facility] Comment on above: Performed By: #### C MP3, HEMDF, TROPN #### [facility] [address] [place] [address] Abs Neutrophile Cnt 3.8 10*3/uL Normal 1.8-7.0 [facility] Comment on above: Performed By: #### C MP3, HEMDF, TROPN #### [facility] [address] [place] [address] Basophils/100 WBC (Bld) 1.2 % Normal 0.0-2.0 S [facility] Comment on above: Performed By: #### C MP3, HEMDF, TROPN #### [facility] [address] [place] [address] Eosinophils (Bld) [#/Vol] 0.2 10*3/uL Normal 0.0-0.5 [facility] Comment on above: Performed By: #### C MP3, HEMDF, TROPN #### [facility] [address] [place] [address] Eosinophils/100 WBC (Bld) 3.1 % Normal 1.0-6.0 [facility] Comment on above: Performed By: #### C MP3, HEMDF, TROPN #### [facility] [address] [place] [address] Erythrocyte distribution width (RBC) [Ratio] 14.2 % Normal 11.5-14.5 [facility] Comment on above: Performed By: #### C MP3, HEMDF, TROPN #### [facility] [address] [place] [address] Granulocytes/100 WBC (Bld) 54.3 % Normal 40.0-80.0 [facility] Comment on above: Performed By: #### C MP3, HEMDF, TROPN #### [facility] [address] [place] [address] Hematocrit (Bld) [Volume fraction] 46.7 % Normal 40.0-52.0 [facility] Comment on above: Performed By: #### C MP3, HEMDF, TROPN #### [facility] [address] [place] [address] Hemoglobin (Bld) [Mass/Vol] 16.3 g/dL Normal 13.0-18.0 [facility] Comment on above: Performed By: #### C MP3, HEMDF, TROPN #### [facility] [address] [place] [address] Lymphocytes (Bld) [#/Vol] 2.0 10*3/uL Normal 1.0-4.3 [facility] Comment on above: Performed By: #### C MP3, HEMDF, TROPN #### [facility] [address] [place] [address] Lymphocytes/100 WBC (Bld) 28.1 % Normal 20.0-40.0 [facility] Comment on above: Performed By: #### C MP3, HEMDF, TROPN #### [facility] [address] [place] [address] MCH (RBC) [Entitic mass] 30.9 pg Normal 26.0-34.0 [facility] Comment on above: Performed By: #### C MP3, HEMDF, TROPN #### [facility] [address] [place] [address] MCHC 34.9 % Normal 32.0-36.0 [facility] Comment on above: Performed By: #### C MP3, HEMDF, TROPN #### [facility] [address] [place] [address] MCV (RBC) [Entitic vol] 88.4 fL Normal 80.0-98.0 [facility] Comment on above: Performed By: #### C MP3, HEMDF, TROPN #### [facility] [address] [place] [address] Monocytes (Bld) [#/Vol] 0.9 10*3/uL High 0.0-0.8 [facility] Comment on above: Performed By: #### C MP3, HEMDF, TROPN #### [facility] [address] [place] [address] Monocytes/100 WBC (Bld) 13.3 % High 2.0-10.0 [facility] Comment on above: Performed By: #### C MP3, HEMDF, TROPN #### [facility] [address] [place] [address] Platelet mean volume (Bld) [Entitic vol] 7.5 fL Normal 7.4-10.4 [facility] Comment on above: Performed By: #### C MP3, HEMDF, TROPN #### [facility] [address] [place] [address] Platelets (Bld) [#/Vol] 416 10*3/uL Normal 140-440 [facility] Comment on above: Performed By: #### C MP3, HEMDF, TROPN #### [facility] [address] [place] [address] RBC (Bld) [#/Vol] 5.28 10*6/uL Normal 4.40-5.90 [facility] Comment on above: Performed By: #### C MP3, HEMDF, TROPN #### [facility] [address] [place] [address] WBC (Bld) [#/Vol] 7.1 10*3/uL Normal 3.6-10.7 [facility] Comment on above: Performed By: #### C MP3, HEMDF, TROPN #### [facility] [address] [place] [address] SARS-CoV-2 (LAB DEPT)on 09-15 SARS-CoV-2 (COVID-19) RNA JANIE+probe Ql (Unsp spec) see below Normal [facility] Comment on above: Order Comment: ORDER WAS CANCELLED 10/05/20 19:51, lab will order. Result Comment: Not Detected Expected Result: Not Detected _ Isothermal nucleic acid amplification performed on the [employer] Now System by the [facility] Laboratory Negative results do not preclude SARS-CoV-2 infection and should not be used as the sole basis for treatment or other patient management decisions. This assay was developed by [employer] and distributed under an Emergency Use Authorization (EUA) granted by the FDA for the qualitative detection of SARS-CoV-2 nucleic acid. Provider and patient fact sheets can be found at https://www.fda.gov/media/526346/download and https://www.fda.gov/media/303912/download. Performed By: #### C VCCL #### [facility] [address] [place] [address] Troponin Ion 10-05-2020 Troponin I.cardiac [Mass/Vol] ng/mL Normal 0.000-0.034 [facility] Comment on above: Result Comment: . Performed By: #### C MP3, HEMDF, TROPN #### [facility] [address] [place] [address] Troponin [id number] By: Jose Rivero on 10-05-2020 Troponin I.cardiac [Mass/Vol] ng/mL 0.000 - 0.034 ng/mL [facility] Work Phone: [phone] Comment on above: . Test Performed by [facility], [address] [place], [place] [address] [facility] Work Phone: [phone] [facility] Work Phone: XR CHEST PORTABLEOrdered By: Garima Rivero on 10-05-2020 [id number] Diagnostic Radiology ACCESSION EXAM DATE/TIME PROCEDURE ORDERING PROVIDER [id number] 10/05/2020 17:46 EDT CR Chest Portable [id number] GARIMA LEÓN CPT code 52706 Reason For Exam (CR Chest Portable) Shortness of breath Report EXAM TYPE: RADIOLOGIC EXAMINATION, CHEST, SINGLE VIEW FRONTAL (CXR SINGLE VIEW) EXAM DATE AND TIME: 10/05/2020 5:46 PM EDT INDICATION: Shortness of breath COMPARISON: Chest radiograph on 06/20/2019 TECHNIQUE: A single frontal view of the thorax was obtained and reviewed. Special views: None. FINDINGS/IMPRESSION: 1. Lines/Tubes/Devices/Mane dware: None. 2. Lungs: Low lung volumes. Bibasilar atelectasis. Mild interstitial prominence, may be on the basis of mild edema, chronic fibrotic change or interstitial pneumonitis. No focal consolidation. 3. Pleura: No pneumothorax or large pleural effusions. 4. Heart and mediastinum: Normal heart size. Tortuous, atheromatous aorta. Report Dictated on --- Final --- Dictating Physician: MD MCCORMICK NEIL Signed Date and Time: 10/05/2020 6:05 pm Signed by: MD MCCORMICK NEIL Transcribed Date and Time: 10/05/2020 6:06 [facility] Work Phone: [place], [facility] Incoming Radiology Results From [facility] - 10/05/2020 6:07 PM EDT [facility]: [id number] Diagnostic Radiology ACCESSION EXAM DATE/TIME PROCEDURE ORDERING PROVIDER [id number] 10/05/2020 17:46 EDT CR Chest Portable [id number] CristianJOSE RIVEROEN CPT code 27206 Reason For Exam (CR Chest Portable) Shortness of breath Report EXAM TYPE: RADIOLOGIC EXAMINATION, CHEST, SINGLE VIEW FRONTAL (CXR SINGLE VIEW) EXAM DATE AND TIME: 10/05/2020 5:46 PM EDT INDICATION: Shortness of breath COMPARISON: Chest radiograph on 06/20/2019 TECHNIQUE: A single frontal view of the thorax was obtained and reviewed. Special views: None. FINDINGS/IMPRESSION: 1. Lines/Tubes/Devices/Mane dware: None. 2. Lungs: Low lung volumes. Bibasilar atelectasis. Mild interstitial prominence, may be on the basis of mild edema, chronic fibrotic change or interstitial pneumonitis. No focal consolidation. 3. Pleura: No pneumothorax or large pleural effusions. 4. Heart and mediastinum: Normal heart size. Tortuous, atheromatous aorta. Report Dictated on --- Final --- Dictating Physician: MD MCCORMICK NEIL Signed Date and Time: 10/05/2020 6:05 pm Signed by: MD MCCORMICK NEIL Transcribed Date and Time: 10/05/2020 6:06 [facility] Work Phone: [facility] Work Phone: CT LUMBAR SPINE WO CONTRASTo n 10-10-2019 Patient Name: DOROTEO GONG ---CT--- Exam Date/Time 10/10/2019 15:27:[address] Spine Lumbar w/o Contrast Ordering Physician KENDRICK AUGUSTINE BRANDY M Accession Number [id number] CPT4 Codes 10924 () Reason For Exam lumbar stenosis Report Reasons for examination: Bilateral leg pain. Axial scans of the lumbar spine performed from T11 to the sacrum, with sagittal and coronal reconstructions. There is normal alignment of the lumbar vertebral bodies on the sagittal reconstructions with mild scoliosis coronal reconstructions. There is no evidence of fracture or subluxation in the lumbar spine. The paravertebral soft-tissues show dilated right renal pelvis and two a lesser degree left (both were present on MRI in 2015) with small calyceal calculus on the right with aortoiliac atherosclerosis. Distended urinary bladder with mild wall thickening. Right THR Degenerative disc disease changes are seen at every level with asymmetric disc space collapse at L3-L4 (right greater than left). Prior fusion at L4-L5 with pedicle screws and large laminectomy defect L3- L4 to L4-L5 IMPRESSION: 1. Degenerative disc disease at every level with posterior ridging and bulging throughout the lower lumbar spine with mild scoliosis. No definite bony central canal stenosis is seen, however soft tissue detail is limited in this patient with prior surgery with lack of epidural fat and large patient size. Consider MRI to compare to prior exam in 2015 for further evaluation as clinically dictated 2. No evidence of lumbar spine fracture or dislocation. 3. Chronic dilatations of renal pelvis bilaterally with small nonobstructing right renal calculus, generalized calcific atherosclerosis, prostatic enlargement with distended slightly thick-walled urinary bladder, right THR with degenerative joint disease left hip Report Dictated on --- Final --- Dictating Physician: MD CARBALLO WILLIAM Signed Date and Time: 10/10/2019 8:51 pm Signed by: MD CARBALLO WILLIAM Transcribed Date and Time: 10/10/2019 8:52 [facility], [place] [facility] Incoming Radiology Results From [facility] - 10/10/2019 8:52 PM EDT Patient Name: DOROTEO GONG ---CT--- Exam Date/Time 10/10/2019 15:27:[address] Spine Lumbar w/o Contrast Ordering Physician KENDRICK AUGUSTINE BRANDY M Accession Number [id number] CPT4 Codes 45887 () Reason For Exam lumbar stenosis Report Reasons for examination: Bilateral leg pain. Axial scans of the lumbar spine performed from T11 to the sacrum, with sagittal and coronal reconstructions. There is normal alignment of the lumbar vertebral bodies on the sagittal reconstructions with mild scoliosis coronal reconstructions. There is no evidence of fracture or subluxation in the lumbar spine. The paravertebral soft-tissues show dilated right renal pelvis and two a lesser degree left (both were present on MRI in 2015) with small calyceal calculus on the right with aortoiliac atherosclerosis. Distended urinary bladder with mild wall thickening. Right THR Degenerative disc disease changes are seen at every level with asymmetric disc space collapse at L3-L4 (right greater than left). Prior fusion at L4-L5 with pedicle screws and large laminectomy defect L3- L4 to L4-L5 IMPRESSION: 1. Degenerative disc disease at every level with posterior ridging and bulging throughout the lower lumbar spine with mild scoliosis. No definite bony central canal stenosis is seen, however soft tissue detail is limited in this patient with prior surgery with lack of epidural fat and large patient size. Consider MRI to compare to prior exam in 2015 for further evaluation as clinically dictated 2. No evidence of lumbar spine fracture or dislocation. 3. Chronic dilatations of renal pelvis bilaterally with small nonobstructing right renal calculus, generalized calcific atherosclerosis, prostatic enlargement with distended slightly thick-walled urinary bladder, right THR with degenerative joint disease left hip Report Dictated on --- Final --- Dictating Physician: MD CARBALLO WILLIAM Signed Date and Time: 10/10/2019 8:51 pm Signed by: MD CARBALLO WILLIAM Transcribed Date and Time: 10/10/2019 8:52 [place], [place] XR HIP LEFT (2-3 VIEWS)on Patient Name: DOROTEO GONG ---Diagnostic Radiology--- Exam Date/Time 09/24/2019 13:25:00 EDT Exam CR Hip w/ Pelvis 2 or 3 Views Left n Ordering Physician MD TRENT, ROOPA EISENBERG Accession Number [id number] CPT4 Codes 21107 () Reason For Exam djd left hip Report LEFT HIP JOINT History: Hip pain Findings: Two views of the left hip joint and additional frontal view of the pelvis were obtained. The left hip joint shows mild osteoarthritic changes with narrowed joint space and marginal spurs without acute fracture, dislocation, or periosteal reaction. There is incompletely visualized right hip arthroplasty of unremarkable alignment as shown. The bilateral sacroiliac joints spaces are maintained. The ischiopubic bones are unremarkable. There is spondylosis with partial laminectomy and surgical hardware the partially visualized lower lumbar spine. There are atherosclerotic calcifications. IMPRESSION: Mild left hip osteoarthritis. No acute process. Spondylosis. Postsurgical changes. Report Dictated on Workstation: [facility] --- Final --- Dictating Physician: MD JOHNSON AHMAD Signed Date and Time: 09/24/2019 3:55 pm Signed by: MD JOHNSON AHMAD Transcribed Date and Time: 09/24/2019 3:56 [place], [place] [facility], [facility] Incoming Radiology Results From [facility] - 09/24/2019 3:56 PM EDT Patient Name: DOROTEO GONG ---Diagnostic Radiology--- Exam Date/Time 09/24/2019 13:25:00 EDT Exam CR Hip w/ Pelvis 2 or 3 Views Left n Ordering Physician MD TRENT, ROOPA EISENBERG Accession Number [id number] CPT4 Codes 47977 () Reason For Exam djd left hip Report LEFT HIP JOINT History: Hip pain Findings: Two views of the left hip joint and additional frontal view of the pelvis were obtained. The left hip joint shows mild osteoarthritic changes with narrowed joint space and marginal spurs without acute fracture, dislocation, or periosteal reaction. There is incompletely visualized right hip arthroplasty of unremarkable alignment as shown. The bilateral sacroiliac joints spaces are maintained. The ischiopubic bones are unremarkable. There is spondylosis with partial laminectomy and surgical hardware the partially visualized lower lumbar spine. There are atherosclerotic calcifications. IMPRESSION: Mild left hip osteoarthritis. No acute process. Spondylosis. Postsurgical changes. Report Dictated on --- Final --- Dictating Physician: MD JOHNSON AHMAD Signed Date and Time: 09/24/2019 3:55 pm Signed by: MD JOHNSON AHMAD Transcribed Date and Time: 09/24/2019 3:56 [place], [place] XR Spine Thoracic 3 VWon Patient Name: DOROTEO GONG ---Diagnostic Radiology--- Exam Date/Time 06/27/2019 14:54:06 EDT Exam CR Spine Thoracic 3 Views Ordering Physician MD MADERA DAVID LANCE Accession Number [id number] CPT4 Codes 23408 () Reason For Exam thoracic spine pain Report THORACIC SPINE 3 VIEWS CLINICAL INDICATION: thoracic spine pain TECHNIQUE: Three views of the thoracic spine. COMPARISON: 05/02/2018 FINDINGS: Mild disc space narrowing and extensive endplate osteophytes throughout the thoracic spine. No acute fracture seen. No focal malalignment. Partially visualized lumbar fusion. IMPRESSION: 1. Multilevel degenerative changes. No acute finding. Report Dictated on --- Final --- Dictating Physician: MD MATTHEWS JOHN R Signed Date and Time: 06/27/2019 7:40 pm Signed by: MD MATTHEWS JOHN R Transcribed Date and Time: 06/27/2019 7:41 [facility], [place] Incoming Radiology Results From [facility] - 06/27/2019 7:41 PM EDT Patient Name: DOROTEO GONG ---Diagnostic Radiology--- Exam Date/Time 06/27/2019 14:54:06 EDT Exam CR Spine Thoracic 3 Views Ordering Physician MD MADERA DAVID LANCE Accession Number [id number] CPT4 Codes 31850 () Reason For Exam thoracic spine pain Report THORACIC SPINE 3 VIEWS CLINICAL INDICATION: thoracic spine pain TECHNIQUE: Three views of the thoracic spine. COMPARISON: 05/02/2018 FINDINGS: Mild disc space narrowing and extensive endplate osteophytes throughout the thoracic spine. No acute fracture seen. No focal malalignment. Partially visualized lumbar fusion. IMPRESSION: 1. Multilevel degenerative changes. No acute finding. Report Dictated on --- Final --- Dictating Physician: MD MATTHEWS JOHN R Signed Date and Time: 06/27/2019 7:40 pm Signed by: MD MATTHEWS JOHN R Transcribed Date and Time: 06/27/2019 7:41 [place], [place] Basic Metabolic Panel w/ Ref castro to MGon 06-22-2019 Anion gap [Moles/Vol] 13 mmol/L [place] Calcium [Mass/Vol] 9.6 mg/dL 8.4 - 10. 4 mg/dL [place] Chloride [Moles/Vol] 99 mmol/L 98 - 10 7 mmol/L [place] CO2 [Moles/Vol] 23 mmol/L 22 - 30 mmol/L [place] Creatinine [Mass/Vol] 0.81 mg/dL 0.52 - 1.25 mg/dL [place] EGFR IF NonAfrican Georgian >60.0 >60 mL/min [place] Comment on above: Source- MDRD equatio n with creatinine calibration to IDMS(NKDEP) eGFR not recommended for drug dose adjustment GFR/1.73 sq M predicted among blacks MDRD (S/P/Bld) [Vol rate/Area] mL/min/{1.73_m2} >60 mL/min [place] Glucose [Mass/Vol] 151 mg/dL High 70 - 100 mg/dL [place] Interpretation and review of laboratory results Abnormal [place] Potassium [Moles/Vol] 4.2 mmol/L 3.5 - 5.1 mmol/L [place] Sodium [Moles/Vol] 135 mmol/L 135 - 145 mmol/L [place] Urea nitrogen [Mass/Vol] 17 mg/dL 7 - 20 mg/dL [place] Test Performed by [facility], [address] [place], [place] [address] [place] CBCon 06-22-2019 Erythrocyte distribution width (RBC) [Ratio] 14.5 % 11.5 - 14.5 % [place] Hematocrit (Bld) [Volume fraction] 44.7 % 40 - 52 % [place] Hemoglobin (Bld) [Mass/Vol] 14.9 g/dL 13 - 18 g/dL [place] Interpretation and review of laboratory results Abnormal [place] MCH (RBC) [Entitic mass] 28.5 pg 26 - 34 pg [place] MCHC (RBC) [Mass/Vol] 33.3 % 32 - 36 % [place] MCV (RBC) [Entitic vol] 85.6 fL 80 - 98 fL [place], [place] Platelet mean volume (Bld) [Entitic vol] 8.1 fL 7.4 - 10.4 fL [place] Platelets (Bld) [#/Vol] 418 10*3/uL 140 - 440 10*3/uL [place] RBC (Bld) [#/Vol] 5.21 10*6/uL 4.4 - 5.9 10*6/uL [place] WBC (Bld) [#/Vol] 20.2 10*3/uL High 3.6 - 10.7 10*3/uL [place] Test Performed by [facility], [address] [place], [place] [id number] [place] [address] Basic Metabolic Panel w/ Ref castro to MGon 06-21-2019 Anion gap [Moles/Vol] 13 mmol/L [place] Calcium [Mass/Vol] 9.9 mg/dL 8.4 - 10. 4 mg/dL [place] Chloride [Moles/Vol] 95 mmol/L Low 98 - 10 7 mmol/L [place] CO2 [Moles/Vol] 26 mmol/L 22 - 30 mmol/L [place] Creatinine [Mass/Vol] 0.69 mg/dL 0.52 - 1.25 mg/dL [place] EGFR IF NonAfrican Georgian >60.0 >60 mL/min [place] Comment on above: Source- MDRD equatio n with creatinine calibration to IDMS(NKDEP) eGFR not recommended for drug dose adjustment GFR/1.73 sq M predicted among blacks MDRD (S/P/Bld) [Vol rate/Area] mL/min/{1.73_m2} >60 mL/min [place] Glucose [Mass/Vol] 167 mg/dL High 70 - 100 mg/dL [place] Interpretation and review of laboratory results Abnormal [place] Potassium [Moles/Vol] 5.1 mmol/L 3.5 - 5.1 mmol/L [place] Sodium [Moles/Vol] 134 mmol/L Low 135 - 145 mmol/L [place] Urea nitrogen [Mass/Vol] 9 mg/dL 7 - 20 mg/dL [place] Test Performed by [facility], [address] [place], [place], [place] [id number] [place] [address] CBCon 06-21-2019 Erythrocyte distribution width (RBC) [Ratio] 14.5 % 11.5 - 14.5 % [place] Hematocrit (Bld) [Volume fraction] 47.0 % 40 - 52 % [place] Hemoglobin (Bld) [Mass/Vol] 15.9 g/dL 13 - 18 g/dL [place] MCH (RBC) [Entitic mass] 28.7 pg 26 - 34 pg [place] MCHC (RBC) [Mass/Vol] 33.8 % 32 - 36 % [place] MCV (RBC) [Entitic vol] 85.1 fL 80 - 98 fL [place], [place] Platelet mean volume (Bld) [Entitic vol] 7.7 fL 7.4 - 10.4 fL [place] Platelets (Bld) [#/Vol] 409 10*3/uL 140 - 440 10*3/uL [place] RBC (Bld) [#/Vol] 5.52 10*6/uL 4.4 - 5.9 10*6/uL [place] WBC (Bld) [#/Vol] 10.5 10*3/uL 3.6 - 10.7 10*3/uL [place] Test Performed by [facility], [address] [place], [place], [place] [address] [place] Basic Metabolic Panelon Anion gap [Moles/Vol] 13 mmol/L [place] Calcium [Mass/Vol] 9.0 mg/dL 8.4 - 10. 4 mg/dL [place] Chloride [Moles/Vol] 99 mmol/L 98 - 10 7 mmol/L [place] CO2 [Moles/Vol] 23 mmol/L 22 - 30 mmol/L [place] Creatinine [Mass/Vol] 0.67 mg/dL 0.52 - 1.25 mg/dL [place] EGFR IF NonAfrican Georgian >60.0 >60 mL/min [place] Comment on above: Source- MDRD equatio n with creatinine calibration to IDMS(NKDEP) eGFR not recommended for drug dose adjustment GFR/1.73 sq M predicted among blacks MDRD (S/P/Bld) [Vol rate/Area] mL/min/{1.73_m2} >60 mL/min [place] Glucose [Mass/Vol] 107 mg/dL High 70 - 100 mg/dL [place] Interpretation and review of laboratory results Abnormal [place] Potassium [Moles/Vol] 4.1 mmol/L 3.5 - 5.1 mmol/L [place] Sodium [Moles/Vol] 134 mmol/L Low 135 - 145 mmol/L [place] Urea nitrogen [Mass/Vol] 7 mg/dL 7 - 20 mg/dL [place] Test Performed by [facility], [address] [place], [place] [address] [place] CBC Auto Differentialon 03-0 Absolute Baso # 0.0 10*3/uL 0 - 0.2 10*3/uL [place] Absolute Neut # 1.9 10*3/uL 1.8 - 7 10*3/uL [place] Basophils/100 WBC (Bld) 0.6 % 0 - 2 % [place] Eosinophils (Bld) [#/Vol] 0.3 10*3/uL 0 - 0.5 10*3/uL [place] Eosinophils/100 WBC (Bld) 5.2 % 1 - 6 % [place] Erythrocyte distribution width (RBC) [Ratio] 14.6 % High 11.5 - 14.5 % [place] Granulocytes/100 WBC (Bld) 35.4 % Low 40 - 80 % [place] Hematocrit (Bld) [Volume fraction] 46.0 % 40 - 52 % [place] Hemoglobin (Bld) [Mass/Vol] 15.5 g/dL 13 - 18 g/dL [place] Interpretation and review of laboratory results Abnormal [place] Lymphocytes (Bld) [#/Vol] 2.5 10*3/uL 1 - 4.3 10*3/uL [place] Lymphocytes/100 WBC (Bld) 47.1 % High 20 - 40 % [place] MCH (RBC) [Entitic mass] 28.7 pg 26 - 34 pg [place] MCHC (RBC) [Mass/Vol] 33.6 % 32 - 36 % [place] MCV (RBC) [Entitic vol] 85.5 fL 80 - 98 fL [place] Monocytes (Bld) [#/Vol] 0.6 10*3/uL 0 - 0.8 10*3/uL [place] Monocytes/100 WBC (Bld) 11.7 % High 2 - 10 % [place] Platelet mean volume (Bld) [Entitic vol] 8.0 fL 7.4 - 10.4 fL [place] Platelets (Bld) [#/Vol] 345 10*3/uL 140 - 440 10*3/uL [place] RBC (Bld) [#/Vol] 5.39 10*6/uL 4.4 - 5.9 10*6/uL [place] WBC (Bld) [#/Vol] 5.3 10*3/uL 3.6 - 10.7 10*3/uL [place] EKG 12 Leadon 06-20-2019 [facility], [facility] Incoming Cardiology Results From [facility] - 06/20/2019 2:12 PM [facility] Test Date: 2019-06-20 Pat Name: Doroteo Gong Department: Room: 257 Gender: M Clinical Team Manager: HC : 1940 Requested By: MICHAEL GILES Order Number: [id number] Reading : Jaya Montoya Measurements Intervals [place] Rate: 87 P: 47 ID: [id number] QRS: -78 QRSD: 144 T: 34 QT: 404 QTc: 486 Interpretive Statements SINUS 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 Electronically Signed On 06-20-2019 14:11:49 EST by [facility] Test Date: 2019-06-20 Pat Name: Doroteo Gong Department: 01 Room: 257 Gender: M Clinical Team Manager: HC : 1940 Requested By: MICHAEL GILES Order Number: [id number] Reading : Jaya Montoya Measurements Intervals [place] Rate: 87 P: 47 ID: [id number] QRS: -78 QRSD: 144 T: 34 QT: 404 QTc: 486 Interpretive Statements SINUS 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, [place], [place] [address] [place] RBC MORPHOLOGYon 06-20-2019 Anisocytosis Ql (Bld) Slight [place], [place] RBC morphology finding Nom (Bld) ABNORMAL [place] Rapid influenza A/B antigens on 06-20-2019 INFLUENZA A Detected Abnormal Not Detected NA [place] INFLUENZA B Not Detected Not Detected NA [place] Comment on above: Method: Isothermal n ucleic acid amplification technology. Interpretation and review of laboratory results Abnormal [place] Test Performed by [facility], [address], [place], [place] [address] [place] Respiratory Virus PCR Panelo n 06-20-2019 Respiratory Panel PCR NEGATIVE: No targe ts were detected by the [employer] Upper Respiratory Pathogens PCR Panel. PLEASE NOTE: This assay DOES NOT detect SARS-CoV-2/COVID-19. _ The [employer] Upper Respiratory Pathogens PCR Panel can detect the following targets: Adenovirus, Coronavirus 229E, Coronavirus HKU1, Coronavirus NL63, Coronavirus OC43, Human Metapneumovirus, Human Rhinovirus/Enterovirus, Influenza A, Influenza B, Parainfluenza Virus 1, Parainfluenza Virus 2, Parainfluenza Virus 3, Parainfluenza Virus 4, Respiratory Syncytial Virus, Bordetella pertussis, Bordetella parapertussis, Chlamydia pneumoniae, Mycoplasma pneumoniae [place] Test Performed by [facility], [address] [place] [address] Specimen Source Comment:Nasopharyngeal [place] Interpretation and review of laboratory results Abnormal [place] Respiratory Panel PCR POSITIVE: Influenz a A DETECTED. PLEASE NOTE: This assay DOES NOT detect SARS-CoV-2/COVID-19. _ The [employer] Upper Respiratory Pathogens PCR Panel can detect the following targets: Adenovirus, Coronavirus 229E, Coronavirus HKU1, Coronavirus NL63, Coronavirus OC43, Human Metapneumovirus, Human Rhinovirus/Enterovirus, Influenza A, Influenza B, Parainfluenza Virus 1, Parainfluenza Virus 2, Parainfluenza Virus 3, Parainfluenza Virus 4, Respiratory Syncytial Virus, Bordetella pertussis, Bordetella parapertussis, Chlamydia pneumoniae, Mycoplasma pneumoniae Abnormal [place] Test Performed by [facility], [address] [place] [address] Specimen Source Comment:Nasopharyngeal [place] Troponinon 06-20-2019 Troponin I.cardiac [Mass/Vol] ng/mL 0 - 0.034 ng/mL [place] Comment on above: . Test Performed by [facility], [address], [place] [id number] [place] [address] XR CHEST PORTABLEon 06-20-19 20 [facility] Incoming Radiology Results From [facility] - 06/20/2019 6:25 AM EST Patient Name: DOROTEO GONG ---Diagnostic Radiology--- Exam Date/Time 06/20/2019 05:47:11 EST Exam CR Chest Portable Ordering Physician MICHAEL PABON Accession Number [id number] CPT4 Codes 97671 () Reason For Exam SOB, h/o asthma, also some chronic leg edema Report PORTABLE CHEST CLINICAL INDICATION: Shortness of breath, history of asthma TECHNIQUE: Portable AP COMPARISON: 08/25/2018 FINDINGS: No focal consolidation or pulmonary edema. No pleural effusions or pneumothorax. The heart is normal in size. There is calcification and tortuosity of the thoracic aorta. Degenerative change of the thoracic spine is noted. IMPRESSION: No focal consolidation or pulmonary edema. Report Dictated on Workstation: [id number] --- Final --- Dictating Physician: MD KELLEY KEVIN Signed Date and Time: 06/20/2019 6:24 am Signed by: MD KELLEY KEVIN Transcribed Date and Time: 06/20/2019 6:25 [place] Patient Name: DOROTEO GONG ---Diagnostic Radiology--- Exam Date/Time 06/20/2019 05:47:11 EST Exam CR Chest Portable Ordering Physician MICHAEL PABON Accession Number [id number] CPT4 Codes 86875 () Reason For Exam SOB, h/o asthma, also some chronic leg edema Report PORTABLE CHEST CLINICAL INDICATION: Shortness of breath, history of asthma TECHNIQUE: Portable AP COMPARISON: 08/25/2018 FINDINGS: No focal consolidation or pulmonary edema. No pleural effusions or pneumothorax. The heart is normal in size. There is calcification and tortuosity of the thoracic aorta. Degenerative change of the thoracic spine is noted. IMPRESSION: No focal consolidation or pulmonary edema. Report Dictated on Workstation: [id number] --- Final --- Dictating Physician: MD KELLEY KEVIN Signed Date and Time: 06/20/2019 6:24 am Signed by: MD KELLEY KEVIN Transcribed Date and Time: 06/20/2019 6:25 [place] XR ABDOMEN (KUB) (SINGLE AP VIEW)on 06-09-2019 Patient Name: DOROTEO GONG ---Diagnostic Radiology--- Exam Date/Time 06/09/2019 14:49:24 EST Exam CR Abdomen AP Ordering Physician MD ORDONEZ JOSHUA B Accession Number [id number] CPT4 Codes 30723 () Reason For Exam Calculus of kidney Report EXAM: CR Abdomen AP INDICATION: Calculus of kidney VIEWS: AP COMPARISON: 07/08/2018; CT abdomen and pelvis 05/26/2019 TIME: 14:44 FINDINGS: Right total hip arthroplasty, partially visualized. L4-L5 bipedicle screw fixation with posterior laminectomy, stable. The bone mineralization is decreased. The bowel gas pattern is nonspecific and nonobstructive. There is a 1.0 cm oval radiopaque density overlying the left upper quadrant likely representing an intraluminal bowel process. IMPRESSION: 1. Postsurgical changes, as above. 2. Nonspecific bowel gas pattern. 3. The punctate right renal nonobstructive calculus on imaging performed 14 days ago is not well characterized on this exam. Report Dictated on --- Final --- Dictating Physician: MD SNIDER JENNIFER R Signed Date and Time: 06/09/2019 8:13 pm Signed by: MD SNIDER JENNIFER R Transcribed Date and Time: 06/09/2019 8:14 [facility], [place] Incoming Radiology Results From [facility] - 06/09/2019 8:14 PM EST Patient Name: DOROTEO GONG ---Diagnostic Radiology--- Exam Date/Time 06/09/2019 14:49:24 EST Exam CR Abdomen AP Ordering Physician MD ORDONEZ JOSHUA B Accession Number [id number] CPT4 Codes 04343 () Reason For Exam Calculus of kidney Report EXAM: CR Abdomen AP INDICATION: Calculus of kidney VIEWS: AP COMPARISON: 07/08/2018; CT abdomen and pelvis 05/26/2019 TIME: 14:44 FINDINGS: Right total hip arthroplasty, partially visualized. L4-L5 bipedicle screw fixation with posterior laminectomy, stable. The bone mineralization is decreased. The bowel gas pattern is nonspecific and nonobstructive. There is a 1.0 cm oval radiopaque density overlying the left upper quadrant likely representing an intraluminal bowel process. IMPRESSION: 1. Postsurgical changes, as above. 2. Nonspecific bowel gas pattern. 3. The punctate right renal nonobstructive calculus on imaging performed 14 days ago is not well characterized on this exam. Report Dictated on --- Final --- Dictating Physician: MD SNIDER JENNIFER R Signed Date and Time: 06/09/2019 8:13 pm Signed by: MD SNIDER JENNIFER R Transcribed Date and Time: 06/09/2019 8:14 [facility], [place] CBC Auto Differentialon 05-17 Absolute Baso # 0.1 10*3/uL 0 - 0.2 10*3/uL [facility] Work Phone: 1 [phone] Absolute Neut # 5.5 10*3/uL 1.8 - 7 10*3/uL [facility] Work Phone: 1 [phone] Basophils/100 WBC (Bld) 1.3 % 0 - 2 % [facility] Work Phone: 1 Eosinophils (Bld) [#/Vol] 0.2 10*3/uL 0 - 0.5 10*3/uL [facility] Work Phone: 1 [phone] Eosinophils/100 WBC (Bld) 2.5 % 1 - 6 % [facility] Work Phone: 1 Erythrocyte distribution width (RBC) [Ratio] 14.3 % 11.5 - 14.5 % [facility] Work Phone: 1 22 Granulocytes/100 WBC (Bld) 64.6 % 40 - 80 % [facility] Work Phone: Hematocrit (Bld) [Volume fraction] 46.0 % 40 - 52 % [facility] Work Phone: 1 22 Hemoglobin (Bld) [Mass/Vol] 15.8 g/dL 13 - 18 g/dL [facility] Work Phone: [phone] Interpretation and review of laboratory results Abnormal [facility] Work Phone: [phone] Lymphocytes (Bld) [#/Vol] 1.4 10*3/uL 1 - 4.3 10*3/uL [facility] Work Phone: 1 [phone] Lymphocytes/100 WBC (Bld) 17.1 % Low 20 - 40 % [facility] Work Phone: [phone] MCH (RBC) [Entitic mass] 29.1 pg 26 - 34 pg [facility] Work Phone: [phone] MCHC (RBC) [Mass/Vol] 34.4 % 32 - 36 % [facility] Work Phone: [phone] MCV (RBC) [Entitic vol] 84.8 fL 80 - [address] [facility] Work Phone: [phone] Monocytes (Bld) [#/Vol] 1.2 10*3/uL High 0 - 0.8 10*3/uL [facility] Work Phone: [phone] Monocytes/100 WBC (Bld) 14.5 % High 2 - 10 % [facility] Work Phone: [phone] Platelet mean volume (Bld) [Entitic vol] 7.7 fL 7.4 - 10.4 fL [facility] Work Phone: [phone] Platelets (Bld) [#/Vol] 450 10*3/uL High 140 - 440 10*3/uL [facility] Work Phone: [phone] RBC (Bld) [#/Vol] 5.43 10*6/uL 4.4 - 5.9 10*6/uL [facility] Work Phone: [phone] WBC (Bld) [#/Vol] 8.5 10*3/uL 3.6 - 10.7 10*3/uL [facility] Work Phone: [phone] Test Performed by [facility], [address] [place] [id number] [place] [address] Work Phone: [phone] CT Abdomen Pelvis Wo Contras ton 05-26-2019 [place] Incoming Radiology Results From [facility] - 05/26/2019 9:18 AM EST Patient Name: DOROTEO GONG ---CT--- Exam Date/Time 05/26/2019 09:02:[address] Abdomen/Pelvis (No PO, No IV) Ordering Physician MD ELIDA, KEE Silva Accession Number [id number] CPT4 Codes 99171 (CT Abdomen/Pelvis (No PO, No IV)) Reason For Exam Abdominal pain and flank pain right-sided Report CT ABDOMEN AND PELVIS WITHOUT CONTRAST CLINICAL INDICATION: Abdominal pain and flank pain right-sided Serial axial CT images of the abdomen and pelvis were acquired without intravenous contrast. Oral contrast was not given for this study. COMPARISON: CT abdomen and pelvis dated 08/25/2018 FINDINGS: There is a tiny 2 mm nonobstructive stone within the lower pole of the right kidney which is unchanged when compared to the prior examination. No ureteral stones are seen. There is dilatation of the right and left renal pelvis series, which is similar to the prior examination. There is no hydroureter or hydronephrosis. The urinary bladder appears grossly normal. The prostate appears enlarged, with the apex of the prostate likely bulging into the inferior aspect of the urinary bladder, similar to the prior examination. Evaluation of the solid organs is limited by the lack of intravenous contrast. There are several hypodense lesions scattered within the liver which likely represent cysts, similar in size and number to the contrast-enhanced examination dated 08/25/2018. The gallbladder has been removed. The spleen, pancreas, and adrenal glands appear grossly normal on this noncontrast study. The abdominal aorta is normal in caliber. Scattered vascular calcium dictation is present. There is no retroperitoneal, pelvic, or inguinal lymphadenopathy. The appendix has been removed. Large and small bowel loops otherwise appear within normal limits without evidence of wall thickening or dilatation. There is no free fluid within the abdomen or the pelvis. There is no free air under the diaphragm. The visualized portion of the lung bases are grossly clear. No lytic or blastic lesions are seen on the bone windows. A right hip arthroplasty is noted. There is also laminectomy and fusion changes within the lower lumbar spine. The right L5 transpedicular screw is fractured, not significantly changed when compared with prior plain films dating back to at least 2014. IMPRESSION: Tiny nonobstructive right renal calculus. No ureteral stones are seen. There is no hydronephrosis or hydroureter. Enlarged prostate. Multiple hypodensities within the liver likely represent cysts, similar to the prior examination. The right L5 transpedicular screw is fractured, not appreciably changed when compared with plain films dating back to at least 2014. Report Dictated on --- Final --- Dictating Physician: MD RASHEED JONATHAN R Signed Date and Time: 05/26/2019 9:17 am Signed by: MD RASHEED JONATHAN R Transcribed Date and Time: 05/26/2019 9:18 [facility] Work Phone: Patient Name: DOROTEO GONG ---CT--- Exam Date/Time 05/26/2019 09:02:[address] Abdomen/Pelvis (No PO, No IV) Ordering Physician MD MARRERO GREGORY M Accession Number [id number] CPT4 Codes 72537 (CT Abdomen/Pelvis (No PO, No IV)) Reason For Exam Abdominal pain and flank pain right-sided Report CT ABDOMEN AND PELVIS WITHOUT CONTRAST CLINICAL INDICATION: Abdominal pain and flank pain right-sided Serial axial CT images of the abdomen and pelvis were acquired without intravenous contrast. Oral contrast was not given for this study. COMPARISON: CT abdomen and pelvis dated 08/25/2018 FINDINGS: There is a tiny 2 mm nonobstructive stone within the lower pole of the right kidney which is unchanged when compared to the prior examination. No ureteral stones are seen. There is dilatation of the right and left renal pelvis series, which is similar to the prior examination. There is no hydroureter or hydronephrosis. The urinary bladder appears grossly normal. The prostate appears enlarged, with the apex of the prostate likely bulging into the inferior aspect of the urinary bladder, similar to the prior examination. Evaluation of the solid organs is limited by the lack of intravenous contrast. There are several hypodense lesions scattered within the liver which likely represent cysts, similar in size and number to the contrast-enhanced examination dated 08/25/2018. The gallbladder has been removed. The spleen, pancreas, and adrenal glands appear grossly normal on this noncontrast study. The abdominal aorta is normal in caliber. Scattered vascular calcium dictation is present. There is no retroperitoneal, pelvic, or inguinal lymphadenopathy. The appendix has been removed. Large and small bowel loops otherwise appear within normal limits without evidence of wall thickening or dilatation. There is no free fluid within the abdomen or the pelvis. There is no free air under the diaphragm. The visualized portion of the lung bases are grossly clear. No lytic or blastic lesions are seen on the bone windows. A right hip arthroplasty is noted. There is also laminectomy and fusion changes within the lower lumbar spine. The right L5 transpedicular screw is fractured, not significantly changed when compared with prior plain films dating back to at least 2014. IMPRESSION: Tiny nonobstructive right renal calculus. No ureteral stones are seen. There is no hydronephrosis or hydroureter. Enlarged prostate. Multiple hypodensities within the liver likely represent cysts, similar to the prior examination. The right L5 transpedicular screw is fractured, not appreciably changed when compared with plain films dating back to at least 2014. Report Dictated on --- Final --- Dictating Physician: MD RASHEED JONATHAN R Signed Date and Time: 05/26/2019 9:17 am Signed by: MD RASHEED JONATHAN R Transcribed Date and Time: 05/26/2019 9:18 [facility] Work Phone: [phone] Comprehensive Metabolic Pane khris 05-26-2019 Albumin [Mass/Vol] 4.3 g/dL 3.5 - 5 g/dL [facility] Work Phone: [phone] ALP [Catalytic activity/Vol] 55 U/L 38 - 126 U/L [facility] Work Phone: [phone] ALT [Catalytic activity/Vol] 34 U/L 13 - 69 U/L [facility] Work Phone: [phone] Anion gap [Moles/Vol] 13 mmol/L [facility] Work Phone: [phone] AST [Catalytic activity/Vol] 32 U/L 15 - 46 U/L [facility] Work Phone: [phone] Bilirubin Ql (U) 0.9 mg/dL 0.2 - 1.3 mg/dL [facility] Work Phone: [phone] Calcium [Mass/Vol] 9.7 mg/dL 8.4 - 10. 4 mg/dL [facility] Work Phone: [phone] Chloride [Moles/Vol] 92 mmol/L Low 98 - 10 7 mmol/L [facility] Work Phone: [phone] [Moles/Vol] 22 mmol/L 22 - 30 mmol/L [facility] Work Phone: [phone] Creatinine [Mass/Vol] 0.75 mg/dL 0.52 - 1.25 mg/dL [facility] Work Phone: EGFR IF NonAfrican Georgian >60.0 >60 mL/min [facility] Work Phone: [phone] Comment on above: Source- MDRD equatio n with creatinine calibration to IDMS(NKDEP) eGFR not recommended for drug dose adjustment GFR/1.73 sq M predicted among blacks MDRD (S/P/Bld) [Vol rate/Area] mL/min/{1.73_m2} >60 mL/min [facility] Work Phone: 1 Glucose [Mass/Vol] 108 mg/dL High 70 - 100 mg/dL [facility] Work Phone: [phone] Interpretation and review of laboratory results Abnormal [facility] Work Phone: 1 Potassium [Moles/Vol] 3.9 mmol/L 3.5 - 5.1 mmol/L [facility] Work Phone: 1 Protein [Mass/Vol] 7.2 g/dL 6.3 - 8.2 g/dL [facility] Work Phone: 1 Sodium [Moles/Vol] 127 mmol/L Low 135 - 145 mmol/L [facility] Work Phone: 1 Urea nitrogen [Mass/Vol] 6 mg/dL Low 7 - 20 mg/dL [facility] Work Phone: 1 Test Performed by [facility] [employer] [facility], [address] [place], [place] [address] [employer] Work Phone: [phone] Lipaseon 05-26-2019 Lipase [Catalytic activity/Vol] 73 U/L 23 - 300 U/L [facility] Work Phone: [phone] Test Performed by [facility] [employer] [facility], [address] [place], [place] [address] [employer] Work Phone: [phone] Influenza A/B Antigens on 05-26-2019 INFLUENZA A Not Detected Not Detected NA [employer] Work Phone: [phone] INFLUENZA B Not Detected Not Detected NA [facility] Work Phone: [phone] Comment on above: Method: Isothermal n ucleic acid amplification technology. Test Performed by [facility] [employer] [facility], [address] [place], [place] [address] [employer] Work Phone: [phone] Urinalysison 05-26-2019 Appearance (U) Clear Clear NA [employer] Work Phone: [phone] Bilirubin Urine Negative Negative mg/dL [facility] Work Phone: [phone] Color (U) Light-Yellow Lt. Yellow NA [employer] Work Phone: [phone] Glucose, Ur Normal Normal (<70) mg/dL [facility] Work Phone: [phone] Ketones Ql (U) Negative Negative mg/dL [facility] Work Phone: [phone] LEUKOCYTES, UA Negative Negative Pennie/uL [facility] Work Phone: [phone] Nitrite, Urine Negative Negative NA [employer] Work Phone: [phone] Occult Blood,Urine Negative Negative mg/dL [facility] Work Phone: [phone] pH (U) 7.0 [pH] [facility] Work Phone: [phone] Protein (U) [Mass/Vol] Negative Negat stephen mg/dL [facility] Work Phone: [phone] Specific [place], Urine 1.007 S [facility] Work Phone: [phone] Urobilinogen, Urine Normal Normal (0-1) mg/dL [facility] Work Phone: [phone] Test Performed by [facility], [address] [place] [id number] [place], [place] [address] Work Phone: CT SINUS LIMITED WO CONTRAST on 12-26-2018 Patient Name: DOROTEO GONG ---CT--- Exam Date/Time 12/26/2018 13:48:[address] Sinus Study Limited Ordering Physician DO HARRY CASSIE N Accession Number [id number] CPT4 Codes 03520 () Reason For Exam chronic sinusitis Report CT scan sinus: 12/26/2018. CLINICAL INFORMATION: Chronic sinusitis. FINDINGS: CT scans of the paranasal sinuses were performed at thin section imaging in the axial plane with sagittal and coronal reconstructions. Comparison was made to a prior study 6 04/30. There has been a right antrectomy. There is minimal mucosal thickening along the right maxillary antrum. There is minimal mucosal thickening along the floor of each maxillary sinus. The paranasal sinuses are otherwise well aerated without mucosal thickening or air-fluid levels. IMPRESSION: Minimal mucosal thickening as described above. Prior right antrectomy. No other abnormalities identified. Report Dictated on --- Final --- Dictated: 12/26/2018 1:51 pm Dictating Physician: MD KENNEDY RISA Signed Date and Time: 12/26/2018 1:53 pm Signed by: MD KENNEDY RISA Transcribed Date and Time: 12/26/2018 1:51 [facility], [place], [facility] Incoming Radiology Results From [facility] - 12/26/2018 1:54 PM EDT Patient Name: DOROTEO GONG ---CT--- Exam Date/Time 12/26/2018 13:48:[address] Sinus Study Limited Ordering Physician DO HARRY CASSIE N Accession Number [id number] CPT4 Codes 76148 () Reason For Exam chronic sinusitis Report CT scan sinus: 12/26/2018. CLINICAL INFORMATION: Chronic sinusitis. FINDINGS: CT scans of the paranasal sinuses were performed at thin section imaging in the axial plane with sagittal and coronal reconstructions. Comparison was made to a prior study 6 04/30. There has been a right antrectomy. There is minimal mucosal thickening along the right maxillary antrum. There is minimal mucosal thickening along the floor of each maxillary sinus. The paranasal sinuses are otherwise well aerated without mucosal thickening or air-fluid levels. IMPRESSION: Minimal mucosal thickening as described above. Prior right antrectomy. No other abnormalities identified. Report Dictated on --- Final --- Dictated: 12/26/2018 1:51 pm Dictating Physician: MD KENNEDY RISA Signed Date and Time: 12/26/2018 1:53 pm Signed by: MD KENNEDY RISA Transcribed Date and Time: 12/26/2018 1:51 [facility], [facility] CT Sinus Study Limitedon CT Sinus Study Limited Patient Name: DOROTEO GRAY CT Exam Date/Time 12/26/2018 13:48:[address] Sinus Study Limited Ordering Physician DO HARRY CASSIE N Accession Number [id number] CPT4 Codes 32120 () Reason For Exam chronic sinusitis Report CT scan sinus: 12/26/2018. CLINICAL INFORMATION: Chronic sinusitis. FINDINGS: CT scans of the paranasal sinuses were performed at thin section imaging in the axial plane with sagittal and coronal reconstructions. Comparison was made to a prior study 6 04/30. There has been a right antrectomy. There is minimal mucosal thickening along the right maxillary antrum. There is minimal mucosal thickening along the floor of each maxillary sinus. The paranasal sinuses are otherwise well aerated without mucosal thickening or air-fluid levels. IMPRESSION: Minimal mucosal thickening as described above. Prior right antrectomy. No other abnormalities identified. Report Dictated on Final Dictated: 12/26/2018 1:51 pm Dictating Physician: MD KENNEDY RISA Signed Date and Time: 12/26/2018 1:53 pm Signed by: MD KENNEDY RISA Transcribed Date and Time: 12/26/2018 1:51 Normal [facility] CR Spine Lumbosacral Complet e w/ Bending min 6 vwson 11-05-2018 CR Spine Lumbosacral Complete w/ Bending min 6 vws Patient Name: DOROTEO GONG Diagnostic Radiology Exam Date/Time 11/04/2018 16:17:06 EDT Exam CR Spine Lumbosacral Complete w/ Bending Ordering Physician MD ARSALAN, ANALY Accession Number [id number] CPT4 Codes 96101 () Reason For Exam intervetebral degeneration Report CLINICAL INFORMATION: Low back pain. Frontal, bilateral oblique , L5/S1 spot view and lateral views of the lumbar spine were obtained. Flexion and extension lateral views also performed. There are 5 lumbar type vertebrae. Bone density appears normal. The vertebral heights are within normal limits. Evidence of lumbar fusion at L4 and L5 with intrapedicular screws and posterior stabilization bars. With flexion, there is 0.4 cm of anterolisthesis of L4 in reference to L5. Alignment is maintained with neutral and extension lateral views. Severe disc space narrowing L2-L3 and L3-L4. Moderate disc space narrowing at L4-L5 and L5-S1. Laminectomy defect at L4. Hardware is intact. Right hip arthroplasty noted. No acute fracture is noted. IMPRESSION: Posterior fusion of L4 and L5. Mild anterolisthesis of L4 in reference L5 with flexion only. Multilevel degenerative disc and endplate changes. Report Dictated on Final Dictated: 11/05/2018 9:11 am Dictating Physician: MD ROEBRTS LAURA Signed Date and Time: 11/05/2018 9:16 am Signed by: MD ROBERTS LAURA Transcribed Date and Time: 11/05/2018 9:11 Normal [facility] CR Sacroiliac Joints 3+ View son 11-04-2018 CR Sacroiliac Joints 3+ Views Patient Name: DOROTEO GONG Diagnostic Radiology Exam Date/Time 11/04/2018 16:16:56 EDT Exam CR Sacroiliac Joints 3+ Views Ordering Physician MD ARSALAN, ANALY Accession Number [id number] CPT4 Codes 38240 () Reason For Exam intervetebral degeneration Report Indication: Bilateral leg pain. AP and oblique views of the sacroiliac joints. Sacroiliac joints are symmetrical and normal in width. There is mild sclerosis along the iliac aspects of the sacroiliac joints. Mild erosive changes are present on the right sacroiliac joint. Osseous structures are demineralized. Right hip arthroplasty noted. 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 Suspect mild erosive changes of the right sacroiliac joint. Report Dictated on Final Dictated: 11/04/2018 4:44 pm Dictating Physician: MD ROBERTS LAURA Signed Date and Time: 11/04/2018 4:46 pm Signed by: MD ROBERTS LAURA Transcribed Date and Time: 11/04/2018 4:44 Normal [facility] CR Spine Thoracic 2 Viewson 05-02-2018 CR Spine Thoracic 2 Views Patient Name: DOROTEO GONG Diagnostic Radiology Exam Date/Time 05/02/2018 14:56:21 EST Exam CR Spine Thoracic 2 Views Ordering Physician MD TRENT, ROOPA EISENBERG Accession Number [id number] CPT4 Codes 43291 () Reason For Exam mid thoracic pain Report THORACIC SPINE: INDICATION: Mid thoracic spine pain COMPARISON: No previous studies are available for comparison. AP, swimmers and lateral views of the thoracic spine demonstrate no evidence of acute fracture or subluxation. The intervertebral discs are well maintained. The bone mineral density is normal. The pedicles are intact. There is no paraspinal mass. IMPRESSION: Arthritic changes of the thoracolumbar spine. Report Dictated on Final Dictated: 05/02/2018 3:06 pm Dictating Physician: DO CARRANZA ALFRED Signed Date and Time: 05/02/2018 3:06 pm Signed by: DO CARRANZA ALFRED Transcribed Date and Time: 05/02/2018 3:06 Normal [facility] Vital Signs Date Time Vital Sign Value Performing Clinician Facility 04-28-2024 13:25-0500 Body height 152.4 cm Kathy Jacome [employer]YROLL REPRESENTATIVE - [employer]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 Work Phone: [facility] [employer] 04-28-2024 13:25-0500 Body mass index (BMI) [Ratio] 30.47 kg/m2 Kathy Jacome PAYROLL REPRESENTATIVE - [employer]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 Work Phone: [facility] [employer] 04-28-2024 13:25-0500 Body weight 70.76 kg Kathy Jacome PAYROLL REPRESENTATIVE - [employer] REC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 Work Phone: [facility] 04-28-2024 13:25-0500 Diastolic blood pressure 44 mm[Hg] Kathy Jacome PAYROLL REPRESENTATIVE - [employer] REC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 Work Phone: [facility] [employer] 04-28-2024 13:25-0500 Heart rate 82 /min Kathy Jacome PAYROLL REPRESENTATIVE - [employer] REC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 Work Phone: [facility] [employer] 04-28-2024 13:25-0500 Systolic blood pressure 107 mm[Hg] Kathy Jacome PAYROLL REPRESENTATIVE - [employer] REC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 Work Phone: [facility] [employer] 04-11-2024 07:56-0500 Body temperature 97.59 [degF] Marybeth Glaser DO Work Phone: [facility] [employer] 04-11-2024 07:56-0500 Diastolic blood pressure 66 mm[Hg] Marybeth Glaser DO Work Phone: [facility] [employer] 04-11-2024 07:56-0500 Heart rate 71 /min Marybeth Glaser DO Work Phone: [facility] [employer] 04-11-2024 07:56-0500 Respiratory rate 18 /min Marybeth Glaser DO Work Phone: [facility] [employer] 04-11-2024 07:56-0500 SaO2% (BldA) [Mass fraction] 94 % Marybeth Glaser DO Work Phone: [facility] [employer] 04-11-2024 07:56-0500 Systolic blood pressure 122 mm[Hg] Marybeth Glaser DO Work Phone: [facility] [employer] 04-09-2024 12:11-0500 Body height 152.4 cm Marybeth Glaser DO Work Phone: [facility] [employer] 05-21-2023 10:25-0500 Body height 152.4 cm Ana Blake APRN Work Phone: [facility] [employer] 05-21-2023 10:25-0500 Body temperature 97.81 [degF] Ana Blake APRN Work Phone: [employer] 05-21-2023 10:25-0500 Diastolic blood pressure 63 mm[Hg] Ana Blake APRN Work Phone: [employer] 05-21-2023 10:25-0500 Heart rate 78 /min Ana Blake APRN Work Phone: [employer] 05-21-2023 10:25-0500 SaO2% (BldA) [Mass fraction] 93 % Ana Blake APRN Work Phone: [employer] 05-21-2023 10:25-0500 Systolic blood pressure 106 mm[Hg] Ana Hayden PAYROLL REPRESENTATIVE Work Phone: [facility] 03-22-2023 02:13-0500 Body temperature 98.8 [degF] MD Zechariah Post Work Phone: [facility] 03-22-2023 02:13-0500 Diastolic blood pressure 84 mm[Hg] MD Zechariah Post Work Phone: [facility] 03-22-2023 02:13-0500 Heart rate 70 /min MD Zechariah Post Work Phone: [facility] 03-22-2023 02:13-0500 Respiratory rate 18 /min MD Zechariah Post Work Phone: [facility] 03-22-2023 02:13-0500 SaO2% (BldA) [Mass fraction] 97 % MD Zechariah Post Work Phone: [facility] 03-22-2023 02:13-0500 Systolic blood pressure 132 mm[Hg] MD Zechariah Post Work Phone: [facility] 03-21-2023 07:30-0500 Inhaled oxygen flow rate 2 L/min MD Zechariah Post Work Phone: [facility] 03-18-2023 17:52-0500 Body height 152.4 cm MD Zechariah Post Work Phone: [facility] 03-18-2023 17:52-0500 Body mass index (BMI) [Ratio] 31 kg/m2 MD Zechariah Post Work Phone: [facility] 03-18-2023 17:52-0500 Body weight 72.12 kg MD Zechariah Post Work Phone: [facility] 03-05-2023 13:22-0500 Body height 152.4 cm Jaylyn Ortiz PAYROLL REPRESENTATIVE - [employer]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 Work Phone: [facility] 03-05-2023 13:22-0500 Body mass index (BMI) [Ratio] 30.58 kg/m2 Jaylyn Ortiz PAYROLL REPRESENTATIVE - [employer] REC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 Work Phone: [facility] 03-05-2023 13:22-0500 Body temperature 96.8 [degF] Jaylyn Ortiz PAYROLL REPRESENTATIVE - [employer] REC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 Work Phone: [facility] [employer] 03-05-2023 13:22-0500 Body weight 71.03 kg Jaylyn Salazarat PAYROLL REPRESENTATIVE - [employer] REC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 Work Phone: [facility] [employer] 03-05-2023 13:22-0500 Diastolic blood pressure 80 mm[Hg] Jaylyn Salazarat PAYROLL REPRESENTATIVE - [employer] REC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 Work Phone: [facility] [employer] 03-05-2023 13:22-0500 Heart rate 76 /min Jaylyn Salazarat PAYROLL REPRESENTATIVE - [employer] REC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 Work Phone: [facility] [employer] 03-05-2023 13:22-0500 SaO2% (BldA) [Mass fraction] 94 % Jaylyn Salazarat PAYROLL REPRESENTATIVE - [employer] REC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 Work Phone: [facility] [employer] 03-05-2023 13:22-0500 Systolic blood pressure 129 mm[Hg] Jaylyn Ortiz PAYROLL REPRESENTATIVE - [employer] REC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 Work Phone: [facility] [employer] 02-27-2023 11:45-0500 Body height 152.4 cm Bipin Pierson DO Work Phone: [facility] [employer] 02-27-2023 11:45-0500 Body mass index (BMI) [Ratio] 32.22 kg/m2 Bipin Pierson DO Work Phone: [facility] [employer] 02-27-2023 11:45-0500 Body weight 74.84 kg Bipin Pierson DO Work Phone: [facility] [employer] 02-19-2023 08:05-0500 Body temperature 97.39 [degF] Ramiro Baird MD Work Phone: [facility] [employer] 02-19-2023 08:05-0500 Diastolic blood pressure 70 mm[Hg] Ramiro Baird MD Work Phone: [facility] [employer] 02-19-2023 08:05-0500 Heart rate 63 /min Ramiro Baird MD Work Phone: [facility] [employer] 02-19-2023 08:05-0500 Respiratory rate 18 /min Ramiro Baird MD Work Phone: [facility] [employer] 02-19-2023 08:05-0500 SaO2% (BldA) [Mass fraction] 96 % Ramiro Baird MD Work Phone: [facility] [employer] 02-19-2023 08:05-0500 Systolic blood pressure 145 mm[Hg] Ramiro Baird MD Work Phone: [facility] [employer] 01-30-2023 11:32-0400 Body height 152.4 cm Kimberley Rorar PAYROLL REPRESENTATIVE - [employer] REC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 Work Phone: [facility] [employer] 01-30-2023 11:32-0400 Body mass index (BMI) [Ratio] 32.22 kg/m2 Kimberley Guzmánar PAYROLL REPRESENTATIVE - [employer] REC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 Work Phone: [facility] [employer] 01-30-2023 11:32-0400 Body weight 74.84 kg Kimberleymonika Guzmánar PAYROLL REPRESENTATIVE - [employer] REC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 Work Phone: [facility] [employer] 01-30-2023 11:32-0400 Diastolic blood pressure 53 mm[Hg] Kimberley Guzmánar PAYROLL REPRESENTATIVE - [employer] REC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 Work Phone: [facility] [employer] 01-30-2023 11:32-0400 Heart rate 79 /min Kimberley Guzmánar PAYROLL REPRESENTATIVE - [employer] REC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 Work Phone: [facility] [employer] 01-30-2023 11:32-0400 Systolic blood pressure 98 mm[Hg] Kimberley Rorar PAYROLL REPRESENTATIVE - [employer] REC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 Work Phone: [facility] [employer] 01-18-2023 08:49-0400 Body height 152.4 cm Jaylyn Falat PAYROLL REPRESENTATIVE - [employer] REC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 Work Phone: [facility] [employer] 01-18-2023 08:49-0400 Body temperature 97.7 [degF] Jaylyn Falat PAYROLL REPRESENTATIVE - [employer] REC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 Work Phone: [facility] [employer] 01-18-2023 08:49-0400 Diastolic blood pressure 71 mm[Hg] Jaylyn Falat PAYROLL REPRESENTATIVE - [employer] REC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 Work Phone: [facility] [employer] 01-18-2023 08:49-0400 Heart rate 71 /min Jaylyn Ortiz PAYROLL REPRESENTATIVE - [employer] REC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 Work Phone: [facility] [employer] 01-18-2023 08:49-0400 SaO2% (BldA) [Mass fraction] 93 % Jaylyn Ortiz PA[employer]ROLL REPRESENTATIVE - [employer] REC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 Work Phone: [facility] [employer] 01-18-2023 08:49-0400 Systolic blood pressure 114 mm[Hg] Jaylyn Ortiz PAYROLL REPRESENTATIVE - [employer] REC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 Work Phone: [facility] [employer] 01-04-2023 09:18-0400 Heart rate 78 /min Tara Frazier MD Work Phone: [facility] [employer] 01-04-2023 09:18-0400 Respiratory rate 18 /min Tara Frazier MD Work Phone: [facility] [employer] 01-04-2023 09:18-0400 SaO2% (BldA) [Mass fraction] 97 % Tara Frazier MD Work Phone: [facility] [employer] 01-04-2023 08:47-0400 Body temperature 97.59 [degF] Tara Frazier MD Work Phone: [facility] [employer] 01-04-2023 08:47-0400 Diastolic blood pressure 74 mm[Hg] Tara Frazier MD Work Phone: [facility] [employer] 01-04-2023 08:47-0400 Systolic blood pressure 131 mm[Hg] Tara Frazier MD Work Phone: [facility] [employer] 12-31-2022 03:11-0400 Body height 152.4 cm Tara Frazier MD Work Phone: [facility] [employer] 12-31-2022 03:11-0400 Body mass index (BMI) [Ratio] 32.33 kg/m2 Tara Frazier MD Work Phone: [facility] [employer] 12-31-2022 03:11-0400 Body weight 75.1 kg Tara Frazire MD Work Phone: [facility] [employer] 12-13-2022 10:30-0400 Diastolic blood pressure 56 mm[Hg] Kathy Daly MD Work Phone: [facility] [employer] 12-13-2022 10:30-0400 Heart rate 84 /min Kathy Daly MD Work Phone: [facility] [employer] 12-13-2022 10:30-0400 Respiratory rate 18 /min Kathy Daly MD Work Phone: [facility] [employer] 12-13-2022 10:30-0400 SaO2% (BldA) [Mass fraction] 96 % Kathy Daly MD Work Phone: [facility] [employer] 12-13-2022 10:30-0400 Systolic blood pressure 146 mm[Hg] Kathy Daly MD Work Phone: [facility] [employer] 12-13-2022 06:43-0400 Body temperature 97.5 [degF] Kathy Daly MD Work Phone: [facility] [employer] 12-12-2022 23:26-0400 Body height 152.4 cm Kathy Daly MD Work Phone: [facility] [employer] 12-12-2022 23:26-0400 Body mass index (BMI) [Ratio] 32.61 kg/m2 Kathy Daly MD Work Phone: [facility] [employer] 12-12-2022 23:26-0400 Body weight 75.75 kg Kathy Daly MD Work Phone: [facility] 10-23-2022 14:38-0400 Body height 157.5 cm Roopa Madera MD Work Phone: [facility] 10-23-2022 14:38-0400 Body temperature 98.4 [degF] Roopa Mdaera MD Work Phone: [facility] 10-23-2022 14:38-0400 Diastolic blood pressure 70 mm[Hg] Roopa Madera MD Work Phone: [facility] 10-23-2022 14:38-0400 Heart rate 71 /min Roopa Madera MD Work Phone: [facility] 10-23-2022 14:38-0400 SaO2% (BldA) [Mass fraction] 96 % Roopa Madera MD Work Phone: [facility] 10-23-2022 14:38-0400 Systolic blood pressure 130 mm[Hg] Roopa Madera MD Work Phone: [facility] 07-31-2022 15:37-0400 Body height 157.5 cm Roopa Madera MD Work Phone: [facility] 07-31-2022 15:37-0400 Body temperature 97.9 [degF] Roopa Madera MD Work Phone: [facility] 07-31-2022 15:37-0400 Body weight 78.02 kg Roopa Madera MD Work Phone: [facility] 07-31-2022 15:37-0400 Diastolic blood pressure 60 mm[Hg] Roopa Madera MD Work Phone: [facility] 07-31-2022 15:37-0400 Systolic blood pressure 120 mm[Hg] Roopa Madera MD Work Phone: [facility] 06-12-2022 13:37-0500 Body height 157.5 cm Roopa Madera MD Work Phone: [facility] 06-12-2022 13:37-0500 Body temperature 96.8 [degF] Roopa Madera MD Work Phone: [facility] 06-12-2022 13:37-0500 Body weight 72.58 kg Roopa Madera MD Work Phone: [facility] 06-12-2022 13:37-0500 Diastolic blood pressure 68 mm[Hg] Roopa Madera MD Work Phone: [facility] 06-12-2022 13:37-0500 Systolic blood pressure 130 mm[Hg] Roopa Madera MD Work Phone: [facility] 10-10-2021 13:59-0400 Body height 157.5 cm Roopa Madera MD Work Phone: [facility] 10-10-2021 13:59-0400 Body temperature 97.59 [degF] Roopa Madera MD Work Phone: [facility] 10-10-2021 13:59-0400 Body weight 79.83 kg Roopa Madera MD Work Phone: [facility] 10-10-2021 13:59-0400 Diastolic blood pressure 70 mm[Hg] Roopa Madera MD Work Phone: [facility] 10-10-2021 13:59-0400 Systolic blood pressure 114 mm[Hg] Roopa Madera MD Work Phone: [facility] 06-05-2021 20:45-0500 Diastolic blood pressure 65 mm[Hg] Daiana Schreiber MD Work Phone: [facility] 06-05-2021 20:45-0500 Heart rate 94 /min Daiana Schreiber MD Work Phone: [facility] 06-05-2021 20:45-0500 Respiratory rate 18 /min Daiana Schreiber MD Work Phone: [facility] 06-05-2021 20:45-0500 SaO2% (BldA) [Mass fraction] 95 % Daiana Schreiber MD Work Phone: [facility] 06-05-2021 20:45-0500 Systolic blood pressure 126 mm[Hg] Daiana Schreiber MD Work Phone: [facility] 06-05-2021 17:51-0500 Body temperature 98.29 [degF] Daiana Schreiber MD Work Phone: [facility] 02-25-2021 13:42-0500 Diastolic blood pressure 78 mm[Hg] Susanne Thrasher MD Work Phone: [facility] 02-25-2021 13:42-0500 Heart rate 87 /min Susanne Thrasher MD Work Phone: [facility] 02-25-2021 13:42-0500 Respiratory rate 18 /min Susanne Thrasher MD Work Phone: [facility] 02-25-2021 13:42-0500 SaO2% (BldA) [Mass fraction] 98 % Susanne Thrasher MD Work Phone: [facility] 02-25-2021 13:42-0500 Systolic blood pressure 127 mm[Hg] Susanne Thrasher MD Work Phone: [facility] 02-25-2021 11:36-0500 Body temperature 98.1 [degF] Susanne Thrasher MD Work Phone: [facility] 01-31-2021 13:07-0400 Heart rate 86 /min Joann Kline MD Work Phone: [facility] Work Phone: 01-31-2021 13:07-0400 Respiratory rate 20 /min Joann Kline MD Work Phone: [facility] Work Phone: 01-31-2021 13:07-0400 SaO2% (BldA) [Mass fraction] 96 % Joann Kline MD Work Phone: [facility] Work Phone: 10-09-2020 08:20-0400 Body temperature 96.4 [degF] Kathy Daly MD Work Phone: [facility] Work Phone: 10-09-2020 08:20-0400 Diastolic blood pressure 76 mm[Hg] Kathy Daly MD Work Phone: [facility] Work Phone: 10-09-2020 08:20-0400 Heart rate 64 /min Kathy Daly MD Work Phone: [facility] Work Phone: 10-09-2020 08:20-0400 Respiratory rate 22 /min Kathy Daly MD Work Phone: [facility] Work Phone: 10-09-2020 08:20-0400 SaO2% (BldA) [Mass fraction] 94 % Kathy Daly MD Work Phone: [employer] Work Phone: 10-09-2020 08:20-0400 Systolic blood pressure 144 mm[Hg] Kathy Daly MD Work Phone: [facility] Work Phone: 10-06-2020 08:00-0400 Body height 152.4 cm Kathy Daly MD Work Phone: [facility] Work Phone: 10-06-2020 07:59-0400 Body mass index (BMI) [Ratio] 35.15 kg/m2 Kathy Daly MD Work Phone: [facility] Work Phone: 10-06-2020 07:59-0400 Body weight 81.65 kg Kathy Daly MD Work Phone: [employer] Work Phone: 06-22-2019 09:00-0400 Pulse Oximetry 93 % [facility] , [place] 06-22-2019 09:00-0400 Respiratory Rate 20 /min [facility], [place] 06-22-2019 07:57-0400 BP Diastolic 74 mm[Hg] [facility] , [place] 06-22-2019 07:57-0400 BP Systolic 132 mm[Hg] [facility] , [place] 06-22-2019 07:57-0400 Pulse (Heart Rate) 74 /min [facility], [place] 06-21-2019 23:19-0500 Body Temperature 97.9 [degF] [facility] [place] 06-20-2019 08:32-0500 BMI (Body Mass Index) 35.51 kg/m2 [facility], [place] 06-20-2019 08:32-0500 Body weight 82.46 kg [facility] , [place] 06-20-2019 05:45-0500 Height 152.4 cm Michael [facility] , [place] 05-26-2019 10:53-0500 BP Diastolic 78 mm[Hg] Kee MCINTYRE Work Phone: 05-26-2019 10:53-0500 BP Systolic 141 mm[Hg] Kee MCINTYRE Work Phone: 05-26-2019 10:53-0500 Pulse (Heart Rate) 81 /min Kee MCINTYRE Work Phone: 05-26-2019 10:53-0500 Pulse Oximetry 94 % Kee MCINTYRE Work Phone: 05-26-2019 10:53-0500 Respiratory Rate 20 /min Kee MCINTYRE Work Phone: 05-26-2019 07:32-0500 Body Temperature 97.59 [degF] Kee MCINTYRE Work Phone: Encounters Encounter Date Encounter Type Care Provider Facility Start: 09-11-2024 ambulatory Castillo Palacios ty:[facility] Start: 08-20-2024 ambulatory Castillo Palacios ty:[facility] Start: 07-15-2024 End: 07-15-2024 ambulatory Out of Town Doctor [facility] Work Phone: Start: 07-15-2024 End: 07-15-2024 Departed Referred Castillo Ortiz MD 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); Incomplete bladder emptying; Nephrolithiasis Start: 04-28-2024 End: 04-28-2024 ambulatory [facility] Start: 04-18-2024 ambulatory Castillo Palacios ty:[facility] Start: 04-18-2024 Registered Referred Castillo Angel [facility] Start: 04-17-2024 End: 04-17-2024 Telephone encounter Kathy Foster CNP [facility] Comment on above: Other (Patient updat e, apt confirmation) Start: 04-08-2024 End: 04-08-2024 Telephone encounter Yenifer A Dao DO Work Phone: [facility] [place] Comment on above: Hospital Follow-up Start: 04-07-2024 End: 04-07-2024 Subsequent hospital visit by physician [facility] [address] Exam Room [address] [facility] [address] Comment on above: Arrived Start: 04-07-2024 End: 04-07-2024 Emergency department patient visit MARYBETHGERMAN GLASER [facility] Start: 04-07-2024 End: 04-11-2024 Evaluation and management of inpatient Marybeth Glaser DO Work Phone: [facility] Medical Surgical Unit MSU 4S Comment on above: Urinary tract infect ion without hematuria, site unspecified (Primary Dx) Start: 02-27-2024 End: 02-27-2024 ambulatory KATHYCRISTINA AGUILARPACAR [facility] Start: 02-27-2024 End: 02-27-2024 Office outpatient visit 25 minutes Kathy Ordonez MD Work Phone: [facility] Ilya Comment on above: 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); Incomplete bladder emptying Start: 12-27-2023 End: 12-27-2023 Office outpatient visit 25 minutes Lashawn Figueroa PAYROLL REPRESENTATIVE - [employer]CH AND REC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 Work Phone: [facility] [place] Start: 08-30-2023 Office outpatient vi sit 10 minutes Lashawnninfa Figueroa PAYROLL REPRESENTATIVE - AIRCRA[employer] LAUNCH AND REC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 Work Phone: [facility] Start: 08-10-2023 Telephone encounter Roopa Espinoza MD Work Phone: [facility] Comment on above: Referral Request Start: 07-12-2023 Office outpatient vi sit 40 minutes Lashawnninfa Skinneryre PAYROLL REPRESENTATIVE - AIRCRA[employer] LAUNCH AND REC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 Work Phone: [facility] Start: 07-03-2023 Telephone encounter Kimberley Mai PAYROLL REPRESENTATIVE - [employer]UNCH AND REC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 Work Phone: [facility] Comment on above: Appointment Request Start: 05-31-2023 Office outpatient vi sit 40 minutes Lashawn Figueroa PAYROLL REPRESENTATIVE - AIR[employer] LAUNCH AND REC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 Work Phone: [facility] Comment on above: Goals of care, couns eling/discussion (Primary Dx); Anxiety; Debility; At risk for constipation; Palliative care encounter Start: 05-21-2023 End: 05-21-2023 Office outpatient visit 25 minutes Ana Hayden ORLANDO Work Phone: [facility] Comment on above: Encounter for preope rative pulmonary examination (Primary Dx); Pulmonary emphysema, unspecified emphysema type (HCC); Restrictive lung disease; RICKY (obstructive sleep apnea); Chronic hypoxic respiratory failure, on home oxygen therapy (HCC); Pulmonary HTN (HCC); History of atrial flutter; History of COVID-19 Start: 05-21-2023 End: 05-21-2023 Patient encounter status Ana Blake DARION Work Phone: [facility] [employer] Work Phone: Start: 05-21-2023 End: 05-21-20[facility] Start: 05-21-2023 End: 05-21-2023 Encounter for preprocedural respiratory examination ANA BLAKE [facility] Start: 05-11-2023 Telephone encounter Kimberley Mai PAYROLL REPRESENTATIVE - [employer]CH AND REC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 Work Phone: [facility] Start: 03-21-2023 Non-patient / Non-visit MD Brina Post Work Phone: [facility] Work Phone: Start: 03-20-2023 Non-patient / Non-visit MD Brina Post Work Phone: [facility] Work Phone: Start: 03-19-2023 Non-patient / Non-visit MD Brina Post Work Phone: [facility] Work Phone: Start: 03-18-2023 End: 03-22-2023 Evaluation and management of inpatient MD [facility]iah [facility] Work Phone: Start: 03-05-2023 End: 03-05-2023 Office outpatient visit 25 minutes Jaylyn Ortiz PAYROLL REPRESENTATIVE - AIR[employer] LAUNCH AND REC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 Work Phone: [facility] Comment on above: History of atrial fl utter (Primary Dx); 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) ; RICKY (obstructive sleep apnea); Dependence on nocturnal oxygen therapy Start: 02-27-2023 End: 02-27-2023 Office outpatient new 30 minutes Bipin Pierson DO Work Phone: [facility] ENT Comment on above: Chronic cough (Prima ry Dx); Chronic rhinitis Start: 02-19-2023 Telephone encounter Tk ulloa MD Work Phone: [facility] Start: 02-16-2023 Telephone encounter Roopa Espinoza MD Work Phone: [facility] Comment on above: Patient Update (Ther apy) Start: 02-13-2023 End: 02-13-2023 Subsequent hospital visit by physician [facility] [employer] [facility] Radiology Comment on above: Arrived Start: 02-12-2023 End: 02-19-2023 Evaluation and management of inpatient Ramiro Baird MD Work Phone: [facility] Medical Unit 4N Comment on above: Inability to walk (P rimary Dx); Chronic pain of left knee; Bilateral leg edema; Chronic obstructive pulmonary disease, unspecified COPD type (HCC); Osteoarthritis of left knee, unspecified osteoarthritis type Start: 02-09-2023 End: 02-09-2023 Subsequent hospital visit by physician Kimberley Mai PAYROLL REPRESENTATIVE - [employer] LA[employer]CH AND REC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 Work Phone: [facility] Comment on above: 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 Start: 02-03-2023 Refill Roopa reynoso MD Work Phone: [facility] Comment on above: Refill Request Start: 01-30-2023 End: 01-30-2023 Office outpatient visit 15 minutes Kimberley Mai PAYROLL REPRESENTATIVE - [employer] LA[employer]CH AND REC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 Work Phone: [facility] Comment on above: 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 Start: 01-18-2023 End: 01-18-2023 Office outpatient visit 40 minutes Jaylyn Ortiz PAYROLL REPRESENTATIVE - [employer] LAUNCH AND REC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 Work Phone: [facility] Comment on above: Moderate persistent asthma without complication (Primary Dx); Hospital discharge follow-up; RICKY (obstructive sleep apnea) Start: 12-30-2022 End: 01-04-2023 Evaluation and management of inpatient Tara Frazier MD Work Phone: [facility] 4S TELEMETRY Comment on above: Shortness of breath (Primary Dx); Edema leg Start: 12-12-2022 End: 12-13-2022 Emergency department patient visit Kathy Daly MD Work Phone: [facility] ED Comment on above: Difficulty in walkin g (Primary Dx); Generalized weakness Start: 11-23-2022 Refill Roopa reynoso MD Work Phone: [facility] Comment on above: Refill Request Start: 11-08-2022 Telephone encounter Roopa Espinoza MD Work Phone: [facility] Comment on above: Patient Question Start: 10-23-2022 End: 10-23-2022 ambulatory ROOPA MADERA Facility:[facility] Start: 10-23-2022 End: 10-23-2022 Patient encounter procedure Roopa Madera MD Work Phone: [facility] Comment on above: Primary osteoarthrit is of both knees (Primary Dx); Callus of foot Start: 09-30-2022 Refill Roopa reynoso MD Work Phone: [facility] Comment on above: Med Change Request Start: 09-28-2022 End: 09-28-2022 Office outpatient visit 15 minutes Denise Holley PAYROLL REPRESENTATIVE - [employer] LA[employer]CH AND REC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 Work Phone: [facility] Comment on above: 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) Start: 09-15-2022 End: 09-15-2022 Subsequent hospital visit by physician Kathy Ordonez MD Work Phone: [facility] Radiology Comment on above: Kidney stone Start: 09-08-2022 Telephone encounter Roopa Espinoza MD Work Phone: [facility] Comment on above: Patient Update Start: 07-31-2022 End: 07-31-2022 Patient encounter procedure Roopa Madera MD Work Phone: [facility] Comment on above: Pulmonary emphysema, unspecified emphysema type (HCC) (Primary Dx); Osteoarthritis, unspecified osteoarthritis type, unspecified site; Pain of right great toe Start: 07-24-2022 Refill Roopa reynoso MD Work Phone: [facility] Comment on above: Refill Request Start: 07-21-2022 Telephone encounter Roopa Espinoza MD Work Phone: [facility] Comment on above: Results (CT) Start: 07-17-2022 Telephone encounter Denise Holley PAYROLL REPRESENTATIVE - AIR[employer] LAUNCH AND REC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 Work Phone: [facility] Start: 07-14-2022 Refill Roopa reynoso MD Work Phone: [facility] Comment on above: Refill Request Start: 02-28-2023 Transcribe Orders Roopa salazar MD Work Phone: [facility] Comment on above: Interstitial lung di sease (HCC) (Primary Dx) Start: 06-12-2022 End: 06-12-2022 Patient encounter procedure Roopa Madera MD Work Phone: [facility] Comment on above: Pulmonary fibrosis ( HCC) (Primary Dx); Interstitial pulmonary disease (HCC); Primary osteoarthritis of left knee Start: 12-16-2021 Telephone encounter Roopa Espinoza MD Work Phone: [facility] Comment on above: Patient Question Start: 11-24-2021 Telephone encounter Roopa Espinoza MD Work Phone: [facility] Comment on above: Patient Update Start: 11-21-2021 Refill Roopa reynoso MD Work Phone: [facility] Comment on above: Refill Request Start: 10-21-2021 Telephone encounter Roopa Espinoza MD Work Phone: [facility] Comment on above: Patient Update Start: 10-10-2021 End: 10-10-2021 Patient encounter procedure Roopa Madera MD Work Phone: [facility] Comment on above: Primary osteoarthrit is of left knee (Primary Dx); Primary osteoarthritis of right knee Start: 09-12-2021 Refill Roopa reynoso MD Work Phone: [facility] Comment on above: Refill Request Start: 08-30-2021 Telephone encounter Roopa Espinoza MD Work Phone: [facility] Comment on above: Constipation Start: 07-19-2021 Refill Roopa reynoso MD Work Phone: [facility] Comment on above: Refill Request Start: 06-30-2021 End: 06-30-2021 Subsequent hospital visit by physician Nery Leggett PA-C Work Phone: [facility] Comment on above: Renal calculi; Incomplete bladder emptying Start: 06-05-2021 End: 06-05-2021 Emergency department patient visit Daiana Schreiber MD Work Phone: [facility] ED Comment on above: Left flank pain (Veronique ian Dx); Acute left-sided low back pain without sciatica; Retention of urine; Benign prostatic hyperplasia with urinary hesitancy Start: 02-25-2021 End: 02-25-2021 Emergency department patient visit Susanne Thrasher MD Work Phone: [facility] ED Comment on above: Aspiration of foreig n body, initial encounter (Primary Dx) Start: 01-31-2021 End: 01-31-2021 Subsequent hospital visit by physician Joann Kline MD Work Phone: [facility] Pulm Function Test Comment on above: Shortness of breath Start: 10-05-2020 End: 10-09-2020 Evaluation and management of inpatient Kathy Daly MD Work Phone: [facility] 2E TELEMETRY Comment on above: Shortness of breath (Primary Dx) Start: 10-10-2019 End: 10-10-2019 Subsequent hospital visit by physician Lnida Augustine Work Phone: [facility] Comment on above: Arrived Start: 09-24-2019 End: 09-24-2019 Subsequent hospital visit by physician Roopa Madera Work Phone: [facility] Start: 06-27-2019 End: 06-27-2019 Subsequent hospital visit by physician Roopa Madera Work Phone: [facility] Start: 06-20-2019 End: 06-22-2019 Evaluation and management of inpatient Michael Giles Work Phone: [facility] 2E TELEMETRY Comment on above: Influenza with respi ratory manifestation other than pneumonia (Primary Dx); Exacerbation of asthma, unspecified asthma severity, unspecified whether persistent; Hypoxia Start: 06-09-2019 End: 06-09-2019 Subsequent hospital visit by physician Kathy Ordonez Work Phone: [facility] Comment on above: Renal calculi Start: 05-26-2019 End: 05-26-2019 Emergency department patient visit Kee Marrero Work Phone: [facility] Comment on above: Generalized abdomina l pain (Primary Dx); Acute low back pain without sciatica, unspecified back pain laterality Start: 01-20-2019 End: 01-21-2019 ambulatory SAIGE RUSHING [facility] Start: 12-26-2018 End: 12-26-2018 Subsequent hospital visit by physician Elissa Harry Work Phone: [facility] Comment on above: Arrived Start: 05-02-2018 Patient encounter procedure [facility] Start: 12-19-2017 Patient encounter procedure [facility] Start: 12-12-2017 Encounter for other preprocedural examination [facility] Start: 12-12-2017 Patient encounter procedure [facility] Start: 11-22-2017 Patient encounter procedure [facility] Encounter for other preprocedural examination [facility] Procedures Date Procedure Procedure Detail Performing Clinician Start: 04-11-2024 Comprehensive metabo lic panel Yissel Eason MD Work Phone: Start: 04-10-2024 Comprehensive metabo lic panel Yissel Eason MD Work Phone: Start: 04-09-2024 Comprehensive metabo lic panel Yissel Eason MD Work Phone: Start: 04-08-2024 Radiologic exam ches t 2 views Ann-Marie Rodriguez MD Work Phone: Start: 04-08-2024 Basic metabolic pane l calcium total Ann-Marie Rodriguez MD Work Phone: Start: 04-08-2024 Manual Differential panel - Blood Ann-Marie Rodriguez MD Work Phone: Start: 04-07-2024 Radex hip unilateral with pelvis 2-3 views Ann-Marie Rodriguez MD Work Phone: Start: 04-07-2024 Ct abdomen & pelvis w/contrast material Marybeth Glaser DO Work Phone: Start: 04-07-2024 Bacteria identified in Blood by Culture Marybeth Glaser DO Work Phone: Start: 04-07-2024 Culture bacterial quanttative colony count urine Marybeth Glaser DO Work Phone: Start: 04-07-2024 Urinalysis complete panel - Urine Marybeth Glaser DO Work Phone: Start: 04-07-2024 End: 04-07-2024 Comprehensive metabolic panel Marybeth Glaser DO Work Phone: Start: 06-15-2023 Thyrotropin [Units/v olume] in Serum or Plasma [facility] 1 Start: 03-19-2023 US urinary tract MD Brina Post Work Phone: Start: 03-18-2023 Urine culture MD Zechariah mcfadden Work Phone: Start: 02-17-2023 OXYGEN THERAPY Ramiro Baird MD Work Phone: Start: 02-17-2023 OXYGEN THERAPY Ramiro Baird MD Work Phone: Start: 02-17-2023 Basic metabolic pane l calcium total Channing Jjalia Work Phone: Start: 02-16-2023 OXYGEN THERAPY Ramiro Baird MD Work Phone: Start: 02-16-2023 Basic metabolic pane l calcium total Channing Diana Jjalia Work Phone: Start: 02-15-2023 OXYGEN THERAPY Ramiro Baird MD Work Phone: Start: 02-15-2023 Basic metabolic pane l calcium total Channing Diana Jjalia Work Phone: Start: 02-14-2023 Culture bacterial quanttative colony count urine Channing Bridges Work Phone: Start: 02-14-2023 Urinalysis complete panel - Urine Channing Bridges Work Phone: Start: 02-14-2023 Dup-scan xtr veins c omplete bilateral study Jose Alfredo Chambers DO Work Phone: Start: 02-14-2023 Thyrotropin [Units/v olume] in Serum or Plasma [facility] Port[facility] Start: 02-14-2023 Basic metabolic pane l calcium total Jose Alfredo Chambers DO Work Phone: Start: 02-13-2023 OXYGEN THERAPY Ramiro Baird MD Work Phone: Start: 02-13-2023 OXYGEN THERAPY Ramiro Baird MD Work Phone: Start: 02-13-2023 OXYGEN THERAPY Ramiro Baird MD Work Phone: Start: 02-13-2023 Radiologic examinati on knee 1/2 views Ramiro Baird MD Work Phone: Start: 02-13-2023 Radiologic exam ches t single view Ramiro Baird MD Work Phone: Start: 02-13-2023 Basic metabolic pane l calcium total Ramiro Baird MD Work Phone: Start: 02-13-2023 Ecg routine ecg w/le ast 12 lds trcg only w/o i&r Ramiro Baird MD Work Phone: Start: 01-04-2023 Comprehensive metabo lic panel Jonathan Nickerson MD Work Phone: Start: 01-03-2023 Us retroperitoneal r eal time w/image complete Anni Vernon PAYROLL REPRESENTATIVE - [employer]CH AND REC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 Work Phone: Start: 01-03-2023 Comprehensive metabo lic panel Jonathan Nickerson MD Work Phone: Start: 01-03-2023 Manual differential performed [Presence] in Blood Jonathan Nickerson MD Work Phone: Start: 01-02-2023 Urinalysis complete panel - Urine Jonathan Nickerson MD Work Phone: Start: 01-02-2023 End: 01-02-2023 Culture bacterial quanttative colony count urine Jeanie Doyle MD Work Phone: Start: 01-02-2023 Smr prim src gram/gi emsa stain bct fungi/cell Jonathan Nickerson MD Work Phone: Start: 01-02-2023 Comprehensive metabo lic panel Jonathan Nickerson MD Work Phone: Start: 01-01-2023 Dup-scan xtr veins c omplete bilateral study Jonathan Nickerson MD Work Phone: Start: 01-01-2023 Comprehensive metabo lic panel Jonathan Nickerson MD Work Phone: Start: 12-31-2022 Radiologic examinati on foot 2 views Unique Encinas MD Work Phone: Start: 12-31-2022 Comprehensive metabo lic panel Jonathan Nickerson MD Work Phone: Start: 12-31-2022 EXTRA TUBES Jonathan echols MD Work Phone: Start: 12-31-2022 Fibrin dgradj produc ts d-dimer quantitative Jonathan Nickerson MD Work Phone: Start: 12-31-2022 Iaad ia mult step me thod nos each organism Jonathan Nickerson MD Work Phone: Start: 12-31-2022 LIGHT GREEN TOP Jonathan Nickerson MD Work Phone: Start: 12-30-2022 Iadna respiratry pro be & rev trnscr 12-25 target Jonathan Nickerson MD Work Phone: Start: 12-30-2022 SARS-COV-2, FLU A/B, AND RSV COMBO Tara Frazier MD Work Phone: Start: 12-30-2022 Basic metabolic pane l calcium total Tara Frazier MD Work Phone: Start: 12-30-2022 Ecg routine ecg w/le ast 12 lds trcg only w/o i&r Tara Frazier MD Work Phone: Start: 12-30-2022 Radiologic exam ches t single view Tara Frazier MD Work Phone: Start: 12-13-2022 Radiologic exam ches t single view Kathy Daly MD Work Phone: Start: 12-12-2022 Basic metabolic pane l calcium total Kathy Daly MD Work Phone: Start: 12-12-2022 Ecg routine ecg w/le ast 12 lds trcg only w/o i&r Kathy Daly MD Work Phone: Start: 02-24-2022 Thyrotropin [Units/v olume] in Serum or Plasma Denise Holley PAYROLL REPRESENTATIVE - [employer] REC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 Work Phone: Start: 06-30-2021 Us retroperitoneal r eal time w/image complete Nery Leggett PA-C Work Phone: Start: 06-05-2021 Urnls dip stick/tabl et rgnt auto w/o microscopy Tono Lassiter APRN - [facility] Work Phone: Start: 06-05-2021 Comprehensive metabo lic panel Tono Lassiter APRN - [employer]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 Work Phone: Start: 06-05-2021 Ct abdomen & pelvis w/o contrast material Tono Lassiter APRN - [facility] Work Phone: Start: 02-25-2021 Radiologic exam ches t 2 views Susanne Thrasher MD Work Phone: Start: 02-25-2021 Ecg routine ecg w/le ast 12 lds w/i&r Susanne Thrasher MD Work Phone: Start: 01-31-2021 Brncdilat rspse spmt ry pre&post-brncdilat admn Joann Kline MD Work Phone: Start: 10-09-2020 HOME O2 EVAL (DESATU RATION SCREEN) Jesse Ramsay MD Work Phone: Start: 10-08-2020 Ct thorax w/contrast material Jesse Ramsay MD Work Phone: Start: 10-07-2020 Echo tthrc r-t 2d w/wom-mode compl spec&colr d Tono Strong MD Work Phone: Start: 10-07-2020 Gluc bld gluc mntr d ev cleared fda spec home use Kathy Daly MD Work Phone: Start: 10-07-2020 End: 10-07-2020 Comprehensive metabolic panel Tono Strong MD Work Phone: Start: 10-06-2020 Natriuretic peptide Juan Manuel thomasl Donald Strong MD Work Phone: Start: 10-06-2020 Radiologic exam abdo men 1 view Roopa Alegria MD Work Phone: Start: 10-05-2020 COVID-19, RAPID [facility] Start: 10-05-2020 RESPIRATORY PANEL, MOLECULAR, WITH COVID-19 [facility] Start: 10-05-2020 Comprehensive metabo lic panel [facility] Start: 10-05-2020 Radiologic exam ches t single view [facility] Start: 10-05-2020 Ecg routine ecg w/le ast 12 lds w/i&r [facility] Start: 10-10-2019 Ct lumbar spine w/o contrast material Linda Augustine Work Phone: Start: 09-24-2019 Radex hip unilateral with pelvis 2-3 views Roopa Madera Work Phone: Start: 06-27-2019 Radex spine thoracic 3 views Roopa Madera Work Phone: Start: 06-22-2019 HOME O2 EVAL (DESATU RATION SCREEN) [facility] Work Phone: Start: 06-22-2019 BASIC METABOLIC PANE L W/ REFLEX TO MG FOR LOW K [facility] Work Phone: Start: 06-22-2019 Blood count complete automated [facility] Work Phone: Start: 06-21-2019 BASIC METABOLIC PANE L W/ REFLEX TO MG FOR LOW K [employer] [facility] Work Phone: Start: 06-21-2019 Blood count complete automated [facility] Work Phone: Start: 06-20-2019 Iadna respiratry pro be & rev trnscr 12-25 target [employer] Work Phone: Start: 06-20-2019 Iaadiadoo influenza Ingrid nt D Tisha Work Phone: Start: 06-20-2019 Iadna respiratry pro be & rev trnscr 12-25 target Michael D Tisha Work Phone: Start: 06-20-2019 Assay of troponin quantitative Michael Jey Tisha Work Phone: Start: 06-20-2019 Basic metabolic pane l calcium total Michael D Tisha Work Phone: Start: 06-20-2019 Blood count complete auto&auto difrntl wbc Michael D Tisha Work Phone: Start: 06-20-2019 RBC morphology findi ng Nom (Bld) Michael Jey Giles Work Phone: Start: 06-20-2019 Radiologic exam ches t single view Michael D Tisha Work Phone: Start: 06-20-2019 Ecg routine ecg w/le ast 12 lds w/i&r Michael D Tisha Work Phone: Start: 06-09-2019 Radiologic exam abdo men 1 view Kathy Stephanhicar Work Phone: Start: 05-26-2019 Iaadiadoo influenza Gre radha Marrero Work Phone: Start: 05-26-2019 Urnls dip stick/tabl et rgnt auto w/o microscopy Kee Marrero Work Phone: Start: 05-26-2019 Ct abdomen & pelvis w/o contrast material Kee Marrero Work Phone: Start: 05-26-2019 Assay of lipase Kee Marrero Work Phone: Start: 05-26-2019 Blood count complete auto&auto difrntl wbc Kee Marrero Work Phone: Start: 05-26-2019 Comprehensive metabo lic panel Kee Marrero Work Phone: Start: 12-26-2018 Ct maxillofacial w/o contrast material Elissa Harry Work Phone: Plan of Treatment Date Care Activity Detail Author Start: 02-17-2026 Diabetes Screening Diabetes Screening [facility] Start: 04-11-2025 [email or web address] Start: 04-11-2025 Potassium measurement Potassium Level [facility] Start: 04-08-2025 Creatinine measurement Creatinine Level [facility] Start: 04-08-2025 Potassium measurement Potassium Level [facility] Start: 10-26-2024 End: 04-28-2025 XR Abdomen Single view XR abdomen 1 view Imaging Routine Nephrolithiasis Expected: 10/26/2024, Expires: 04/28/2025 [facility] Work Phone: Comment on above: Expected: 10/26/2024, Expires: Start: 06-14-2024 Thyroid stimulating hormone measurement TSH Level [facility] Start: 04-28-2024 End: 04-28-2024 Patient encounter procedure 04/28/2024 1:30 PM EST Office Visit [facility] [place] [address] [place] [phone] Kathy Jacome APRN - [employer] REC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 [address] [place] [address] [facility] [place] Start: 03-18-2024 DIABETES SCREEN DIABETES SCREEN [facility] Start: 03-18-2024 Diabetes Screening Diabetes Screening [facility] Start: 02-18-2024 Creatinine measurement Creatinine Level [facility] Start: 02-18-2024 Potassium measurement Potassium Level [facility] Start: 02-15-2024 Creatinine measurement Creatinine Level [facility] Start: 02-15-2024 Potassium measurement Potassium Level [facility] Start: 02-15-2024 Thyroid stimulating hormone measurement TSH Level [facility] Start: 01-05-2024 Creatinine measurement Creatinine Level [facility] Start: 01-05-2024 Potassium measurement Potassium Level [facility] Start: 12-16-2023 COVID-19 Vaccine ( season) COVID-19 Vaccine () [facility] Start: 12-16-2023 COVID-19 Vaccine () COVID-19 Vaccine () [facility] Start: 12-16-2023 COVID-19 Vaccine () COVID-19 Vaccine () [facility] Start: 12-16-2023 Influenza vaccination Influenza Vaccine (#1) [facility] Start: 12-13-2023 Creatinine measurement Creatinine Level [facility] Start: 12-13-2023 Potassium measurement Potassium Level [facility] Start: 10-09-2023 End: 10-09-2023 Patient encounter procedure 10/09/2023 1:00 PM EDT Office Visit [facility] [address] [place] [address] Denise Holley, PAYROLL REPRESENTATIVE - [employer]CH AND REC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 [address] [place] [address] [facility] Start: 10-09-2023 End: 10-09-2023 Telemedicine consultation with patient 10/09/2023 1:00 PM EDT Telemedicine [facility] [address] [place] [address] Denise Holley, PAYROLL REPRESENTATIVE - [employer]CH AND REC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 [address] [place] [address] [facility] Start: 09-20-2023 End: 09-20-2023 Patient encounter procedure 09/20/2023 1:40 PM EDT Office Visit [facility] [address] [place] [phone] Brenda Andrade PAYROLL REPRESENTATIVE - [employer]CH AND REC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 [address] [place] [address] [facility] Start: 08-06-2023 End: 08-06-2023 Patient encounter procedure 08/06/2023 1:40 PM EDT Office Visit [facility] [address] [place] [phone] Kimberley Mai, PAYROLL REPRESENTATIVE - [employer] REC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 [address] [place] [address] [facility] Start: 06-25-2023 End: 06-25-2023 Patient encounter procedure 06/25/2023 10:30 AM EDT Office Visit [facility] Pulmonary Medicine [address] [place] [address] [place] [address] Joann Kline MD [address] [place] [address] [facility] Start: 05-21-2023 End: 05-21-2024 XR Chest 2 Views XR chest 2 views Imaging Routine History of COVID-19 Expected: 05/21/2023, Expires: 05/21/2024 [facility] Work Phone: Comment on above: Expected: 05/21/2023, Expires: Start: 05-10-2023 End: 05-10-2023 Patient encounter procedure 05/10/2023 11:45 AM EST Office Visit [facility] [address] [place], [place] [id number] Joann Kline MD [address] [place], [place] [id number] [facility] Start: 04-16-2023 Advance Directive Discussion Advance Directive Discussion [facility] Start: 04-16-2023 Behavioral Health Screening Behavioral Health Screening [facility] Start: 03-27-2023 Creatinine measurement Creatinine Level [facility] Start: 03-27-2023 Potassium measurement Potassium Level [facility] Start: 03-21-2023 Consultation [facility] Start: 03-21-2023 Patient discharge [facility] Start: 03-19-2023 Introduction of urinary catheter [facility] Start: 03-18-2023 Following clinical pathway protocol [facility] Start: 03-18-2023 Ambulation without limitation [facility] Start: 03-18-2023 Assessment of risk of venous thromboembolism [facility] Start: 03-18-2023 Insertion of catheter into peripheral vein [facility] Start: 03-18-2023 Oxygen therapy [facility] Start: 03-18-2023 Providing care according to standard [facility] Start: 03-18-2023 Referral to occupational therapist [facility] Start: 03-18-2023 Referral to service [facility] Start: 03-18-2023 [facility] Start: 03-18-2023 Admission procedure [facility] Start: 03-18-2023 Inhalation therapy procedure [facility] Start: 03-05-2023 End: 03-05-2023 Patient encounter procedure 03/05/2023 1:20 PM EST Office Visit [facility] [address] [place] [address] Jaylyn Ortiz, PAYROLL REPRESENTATIVE - [facility] [address] [place] [address] [facility] Start: 02-27-2023 End: 02-27-2023 Patient encounter procedure 02/27/2023 11:15 AM EST Office Visit [facility] ENT [address] [place] [phone] Bipin Pierson DO [address] [place] [address] [facility] Start: 02-24-2023 Thyroid stimulating hormone measurement TSH Level [facility] Start: 02-09-2023 End: 02-09-2023 Patient encounter procedure 02/09/2023 2:30 PM EDT Appointment [facility] [address] [place] [phone] Kimberley Mai, PAYROLL REPRESENTATIVE - [employer] AND REC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 [address] [place] [address] [facility] Start: 01-30-2023 End: 01-31-2024 Creatinine [Mass/volume] in Serum or Plasma Creatinine, Serum Lab Routine Hypertrophy of prostate with urinary obstruction Expected: 01/30/2023 (Approximate), Expires: 01/31/2024 [facility] Work Phone: Comment on above: Expected: 01/30/2023 (Approximate), Expi res: 01/31/2024 Start: 01-30-2023 End: 01-31-2024 US Retroperitoneum US retroperitoneum Imaging Routine Hypertrophy of prostate with urinary obstruction Expected: 01/30/2023, Expires: 01/31/2024 [facility] Comment on above: Expected: 01/30/2023, Expires: Start: 01-30-2023 End: 01-30-2023 Patient encounter procedure 01/30/2023 11:30 AM EDT Office Visit [facility] [address] [place] [phone] Kimberley Mai, PAYROLL REPRESENTATIVE - [employer] AND REC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 [address] [place] [address] [facility] Start: 01-09-2023 End: 01-09-2023 Patient encounter procedure 01/09/2023 10:45 AM EDT Office Visit [facility] [address] [place] [address] Joann Kline MD [address] [place] [address] [facility] Start: 12-15-2022 Covid-19 Vaccine ( season) Covid-19 Vaccine () [facility] Start: 12-15-2022 Influenza vaccination [facility] Start: 09-28-2022 End: 09-28-2022 Patient encounter procedure 09/28/2022 Office Visit Urology [facility] Robertson, PAYROLL REPRESENTATIVE - [employer] AND REC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 [address] [place] [address] [facility] Start: 06-13-2022 COVID-19 VACCINE (6 - Moderna series) COVID-19 VACCINE (6 - Moderna series) [facility] Start: 04-16-2022 ADVANCE DIRECTIVE DISCUSSION ADVANCE DIRECTIVE DISCUSSION [facility] Start: 04-16-2022 DEPRESSION ASSESSMENT DEPRESSION ASSESSMENT [facility] Start: 03-08-2022 Depression Screen Depression Screen [facility] Start: 12-15-2021 Influenza vaccination INFLUENZA (#1) [facility] Start: 10-07-2021 Creatinine measurement Creatinine monitoring [facility] Start: 10-07-2021 Potassium monitoring Potassium monitoring [facility] Start: 09-13-2021 End: 09-13-2021 Patient encounter [facility] Start: 08-11-2021 COVID-19 VACCINE (4 - Booster for Moderna series) COVID-19 VACCINE (4 - Booster for Moderna series) [facility] Start: 07-07-2021 End: 07-07-2021 Patient encounter procedure [facility] Start: 06-30-2021 End: 06-30-2021 Patient encounter procedure [facility] Start: 06-07-2021 End: 06-07-2021 Patient encounter procedure 06/07/2021 Appointment Radiology [facility] Start: 06-07-2021 Subsequent hospital visit by physician 06/07/2021 Hospital Encounter Radiology Lawson Law MD [address] [place] [address] [facility] Start: 04-16-2021 ADVANCE DIRECTIVE DISCUSSION ADVANCE DIRECTIVE DISCUSSION [facility] Start: 03-08-2021 End: 03-08-2021 Patient encounter procedure 03/08/2021 Office Visit Pulmonology Joann Kline MD [address] [place] [address] [facility] Start: 02-03-2021 End: 02-03-2021 Patient encounter procedure 02/03/2021 Office Visit Pulmonology Joann Kline MD [address] [place] [address] [phone] [facility] Start: 12-15-2020 Influenza vaccination Flu vaccine (Season Ended) [facility] Work Phone: Start: 12-08-2020 COVID-19 Vaccine (3 - Booster for Moderna series) COVID-19 Vaccine (3 - Booster for Moderna series) [facility] Start: 11-07-2020 COVID-19 Vaccine (3 - Booster for Moderna series) COVID-19 Vaccine (3 - Booster for Moderna series) [facility] Start: 01-30-2020 Pneumococcal 65+ years Vaccine (2 of 2 - PPSV23) Pneumococcal 65+ years Vaccine (2 of 2 - PPSV23) [facility] Start: 01-30-2020 Pneumococcal Vaccine: 65+ (2 - PPSV23 or PCV20) Pneumococcal Vaccine: 65+ (2 - PPSV23 or PCV20) [facility] Start: 01-30-2020 Pneumococcal Vaccine: 65+ (2 of 2 - PPSV23 or PCV20) Pneumococcal Vaccine: 65+ (2 of 2 - PPSV23 or PCV20) [facility] Start: 01-30-2020 Pneumococcal Vaccine: 65+ Years (2 - PPSV23 if available, else PCV20) Pneumococcal Vaccine: 65+ Years (2 - PPSV23 if available, else PCV20) [facility] Start: 01-30-2020 PNEUMOCOCCAL: 65+ (2 - PPSV23 if available, else PCV20) PNEUMOCOCCAL: 65+ (2 - PPSV23 if available, else PCV20) [facility] Start: 01-30-2020 PNEUMOCOCCAL: 65+ (2 - PPSV23 or PCV20) PNEUMOCOCCAL: 65+ (2 - PPSV23 or PCV20) [facility] Start: 12-18-2019 End: 12-18-2019 Office Visit 12/18/2019 Office Visit Deborah Oviedo PA-C [address] [place] [address] [phone] [facility] Start: 12-16-2019 Influenza vaccination Flu vaccine (Season Ended) [facility] Start: 07-17-2019 End: 07-17-2019 Office Visit 07/17/2019 Office Visit Deborah Oviedo PA-C [address] [place] [address] [phone] [facility] Start: 06-12-2019 End: 06-12-2019 Office Visit 06/12/2019 Office Visit Deborah Oviedo PA-C [address] [place] [address] [phone] [facility] Start: 03-26-2019 Pneumococcal Vaccine: 50+ Years (2 of 2 - PPSV23) Pneumococcal Vaccine: 50+ Years (2 of 2 - PPSV23) [facility] Start: 03-26-2019 Pneumococcal Vaccine: 65+ Years (2 - PPSV23 if available, else PCV20) Pneumococcal Vaccine: 65+ Years (2 - PPSV23 if available, else PCV20) [facility] Start: 03-26-2019 Pneumococcal Vaccine: 65+ Years (2 - PPSV23 or PCV20) Pneumococcal Vaccine: 65+ Years (2 - PPSV23 or PCV20) [facility] Start: 03-26-2019 Pneumococcal Vaccine: 65+ Years (2 of 2 - PPSV23 or PCV20) Pneumococcal Vaccine: 65+ Years (2 of 2 - PPSV23 or PCV20) [facility] Start: 12-15-2018 Influenza vaccination Flu vaccine (#1) [facility] Start: 10-06-2018 Annual Wellness Visit (AWV) Annual Wellness Visit (AWV) [facility] Start: 11-09-2014 RSV Immunization for Adults (1 - 1-dose 75+ series) RSV Immunization for Adults (1 - 1-dose 75+ series) [facility] Start: 11-09-2004 Pneumococcal 65+ years Vaccine (1 of 1 - PPSV23) Pneumococcal 65+ years Vaccine (1 of 1 - PPSV23) [facility] Work Phone: Start: 11-09-2004 Pneumococcal 65+ years Vaccine (1 of 2 - PCV13) Pneumococcal 65+ years Vaccine (1 of 2 - PCV13) [place] Start: 11-09-2004 Pneumococcal 65+ years Vaccine (2 of 2 - PPSV23) Pneumococcal 65+ years Vaccine (2 of 2 - PPSV23) [facility] Work Phone: Start: 11-09-2004 PNEUMOVAX AGE 65 AND OVER WITH 5YR LOOKBACK (#1) PNEUMOVAX AGE 65 AND OVER WITH 5YR LOOKBACK (#1) [facility] Start: 1999 RSV Immunization aged 60 or older (1 - 1-dose 60+ series) RSV Immunization aged 60 or older (1 - 1-dose 60+ series) [facility] Start: 1999 RSV Vaccine (1 - 1-dose 60+ series) RSV Vaccine (1 - 1-dose 60+ series) [facility] Start: 11-09-1989 Shingles Vaccine (1 of 2) Shingles Vaccine (1 of 2) [facility] Start: 11-09-1989 SHINGRIX VACCINE (1 of 2) SHINGRIX VACCINE (1 of 2) [facility] Start: 11-09-1989 Zoster Vaccines (1 of 2) Zoster Vaccines (1 of 2) [facility] Start: 11-09-1958 DTaP/Tdap/Td vaccine (1 - Tdap) DTaP/Tdap/Td vaccine (1 - Tdap) [facility] Start: 11-09-1958 DTaP/Tdap/Td Vaccines (1 - Tdap) DTaP/Tdap/Td Vaccines (1 - Tdap) [facility] Start: 11-09-1958 Urine microalbumin profile [facility] Start: 11-09-1957 Diabetes mellitus screening Diabetes Screening [facility] Start: 1951 Depression Monitoring Depression Monitoring [facility] Start: 1951 Depression Screening Depression Screening [facility] Start: 11-09-1950 DTaP/Tdap/Td vaccine (1 - Tdap) DTaP/Tdap/Td vaccine (1 - Tdap) [facility] Work Phone: Start: 11-09-1949 Lipid panel Lipid screen [facility] Start: 11-09-1949 Lipid screen Lipid screen [facility] Work Phone: Start: 1939 Echocardiography Echocardiogram [facility] Start: 1939 Hepatitis B Vaccines (1 of 3 - 3-dose series) Hepatitis B Vaccines (1 of 3 - 3-dose series) [facility] Start: 1939 Lipid panel Lipid Panel [facility] Start: 1939 Medicare Annual Wellness (AWV) Medicare Annual Wellness (AWV) [facility] Bacteria [facility] Work Phone: End: 04-10-2024 Bacteria identified in Urine by Culture [facility] Work Phone: Comment on above: Once (Lab) for 1 Occurrences starting until 04/10/2024 Once for 1 Occurrenc es starting 04/10/2024 until 04/10/2024 End: 06-25-2019 Basic Metabolic Panel w/ Reflex to MG Basic Metabolic Panel w/ Reflex to MG Lab Routine Daily for 5 Occurrences starting 06/21/2019 until 06/25/2019, 2 completed [facility] Comment on above: Daily for 5 Occurrences starting 020 until 06/25/2019, 2 completed End: 06-25-2019 CBC CBC Lab Routine Daily for 5 Occurrences starting 06/21/2019 until 06/25/2019, 2 completed [facility] Comment on above: Daily for 5 Occurrences starting 020 until 06/25/2019, 2 completed End: 02-25-2021 Comprehensive metabolic 2000 panel - Serum or Plasma Comprehensive Metabolic Panel Lab STAT One Time for 1 Occurrences starting 02/25/2021 until 02/25/2021 [facility] Work Phone: Comment on above: One Time for 1 Occurrences starting 02/14 until 02/25/2021 End: 07-12-2023 Ct thorax w/o contrast material CT CHEST WO IVCON Radiology Routine Interstitial pulmonary disease (HCC) 1 Occurrences starting 06/12/2022 until 07/12/2023 [facility] Work Phone: Comment on above: 1 Occurrences starting 06/12/2022 until 07/12/2023 End: 06-21-2019 Culture, Respiratory Culture, Respiratory Microbiology Routine One Time for 1 Occurrences starting 06/21/2019 until 06/21/2019 [facility] Comment on above: One Time for 1 Occurrences starting 10/2019 until 06/21/2019 End: 06-05-2021 Culture, Urine [facility] Work Phone: Comment on above: One Time for 1 Occurrences starting 05/18 until 06/05/2021 EKG 12 Lead - Chest Pain EKG 12 Lead - Chest Pain ECG STAT 02/25/2021 11:29 AM EST [facility] Work Phone: End: 02-25-2021 Hemogram (CBC) w/Auto Diff Hemogram (CBC) w/Auto Diff Lab STAT One Time for 1 Occurrences starting 02/25/2021 until 02/25/2021 [facility] Work Phone: Comment on above: One Time for 1 Occurrences starting 02/14 until 02/25/2021 HHN Treatment HHN Treatment Respiratory Care Routine BID until discontinued starting 06/22/2019 [facility] Comment on above: BID until discontinued starting 06/22/19 20 Initiate Oxygen Ther apy Protocol Initiate Oxygen Therapy Protocol Respiratory Care Routine Daily until discontinued starting 06/20/2019 [facility] Comment on above: Daily until discontinued starting 2019 End: 06-21-2019 Microscopic observation Gram stain Nom (Unsp spec) Gram Stain Microbiology Routine One Time for 1 Occurrences starting 06/21/2019 until 06/21/2019 [facility] Comment on above: One Time for 1 Occurrences starting 10/2019 until 06/21/2019 OUTSIDE PROCEDURE SCAN OUTSIDE P ROCEDURE SCAN Procedures Ordered: 09/15/2022 [facility] Comment on above: Ordered: 09/15/2022 OUTSIDE PROCEDURE SCAN OUTSIDE P ROCEDURE SCAN Procedures Ordered: 02/08/2023 [facility] Comment on above: Ordered: 02/08/2023 Oxygen therapy [[facility] Data Set] Initiate Oxygen Therapy Protocol Respiratory Care Routine Daily until discontinued starting 10/06/2020 Obvious Work Phone: Comment on above: Daily until discontinued starting 2020 Patient referral [facility] Work Phone: End: 12-31-2022 Respiratory pathogens DNA and RNA panel - Nasopharynx by JANIE with non-probe detection SARS-CoV-2 and Respiratory PCR Panel Microbiology STAT Once (Lab) for 1 Occurrences starting 12/31/2022 until 12/31/2022 [facility] [employer] Work Phone: Comment on above: Once (Lab) for 1 Occurrences starting until 12/31/2022 End: 04-10-2024 Urine Hold Cup Urine Hold Cup Lab Routine Once for 1 Occurrences starting 04/10/2024 until 04/10/2024 [facility] [employer] Comment on above: Once for 1 Occurrences starting 04/10/20 until 04/10/2024 End: 02-09-2023 US Retroperitoneum [facility] [employer] [facility] Work Phone: Comment on above: Once for 1 Occurrences starting 02/10/20 until 02/09/2023 End: 09-15-2022 [facility]R [facility]domen [email or web address] Work Phone: Comment on above: Once for 1 Occurrences starting 09/16/19 until 09/15/2022 End: 11-09-2022 XR KNEE GENERAL 4V AP BOTH/PA BOTH/LAT/MERC LEFT XR KNEE GENERAL 4V AP BOTH/PA BOTH/LAT/MERC LEFT Radiology Routine Primary osteoarthritis of left knee 1 Occurrences starting 10/10/2021 until 11/09/2022 [facility] Work Phone: Comment on above: 1 Occurrences starting 10/10/2021 until 11/09/2022 [facility] Immunizations Immunization Date Immunization Notes Care Provider Joann patricio 04-08-2024 influenza vaccine A& B surf ant adjuvanted (Fluad) HIGH-DOSE injection 0.5 mL Marybeth Glaser DO Work Phone: [facility] 02-23-2023 Influenza, high dose seasonal [place] Doctor [facility] 02-23-2023 influenza, high dose seasonal, preservative-free MD Zechariah Post Work Phone: [facility] 02-23-2023 influenza virus vaccine, unspecified formulation Lashawn Figueroa PAYROLL REPRESENTATIVE - AIRCRAFT LAUNCH AND REC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 Work Phone: [facility] 01-04-2023 pneumococcal vaccine , unspecified formulation Tara Frazier MD Work Phone: [facility] 04-12-2021 COVID-19 vaccine, booster dose (MODERNA) Ropoa Madera MD Work Phone: [facility] 12-27-2020 influenza, high-dose , quadrivalent vaccine (FLUZONE HIGH DOSE QUADRIVALENT) Roopa Madera MD Work Phone: [facility] 12-27-2020 influenza virus vaccine, unspecified formulation Hugobruno Kishan PAYROLL REPRESENTATIVE - AIRCRAFT LAUNCH AND REC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 Work Phone: [facility] 06-10-2020 COVID-19, Moderna, P F, 100mcg/0.5mL Kathy Daly MD Work Phone: [facility] 05-13-2020 COVID-19, Moderna, P F, 100mcg/0.5mL Kathy Daly MD Work Phone: [facility] 01-29-2019 pneumococcal conjuga te vaccine, 13 valent Roopa Madera MD Work Phone: [facility] NEGATED: Highlighted row has not occurred!02-17-2023 Influenza, Seasonal, Quadrivalent, Adjuvanted Tk Wynne MD Work Phone: [facility] Comment on above: Deferred: Patient Re fused NEGATED: Highlighted row has not occurred!01-04-2023 Influenza, Seasonal, Quadrivalent, Adjuvanted Tara Frazier MD Work Phone: [facility] Comment on above: Deferred: Other - Dc d, modified Payers Date Payer Category Payer Self-pay 2021 Medicare supplementa l policy (as second payer) MMO MEDICARE SUPPLEMENT [id number] 2019 Unknown 2019 Unknown MMO MMO MEDICARE SUPPLEMENT [id number] 2019-Present [phone] [address] [place] [address] Indemnity [id number] 2014 Medicare MEDICARE MEDICAR E PART A AND B xxxxxxxxxxx 2014-Present [phone] [place] [address] xxxxxxxxxxx [id number] 2014 Unknown MEDICAL MUTUAL M EDICAL MUTUAL [employer] - EXCHANGE xxxxxxxxxxxx 2014-Present [phone] [address] [place] [address] xxxxxxxxxxxx [id number] 2014 Unknown [id number] 2004 Medicare 2004 Medicare MEDICARE MEDICAR E A AND B [id number] 2004-Present [phone] [place] [address] Medicare [id number] 2004 Medicare [id number] 1939 Unknown [id number] 1940 Unknown [id number] 1940 Unknown [id number] 1940 Unknown [id number] Unknown [id number] Unknown [id number] Unknown [id number] Social History Date Type Detail Facility Start: 08-25-2018 End: 03-18-2023 Tobacco smoking status NHIS Never smoker [place], [place] Start: 08-25-2018 End: 12-31-2022 Alcohol intake No [facility] Start: 1940 Sex Assigned At Not on file [place] Start: 05-26-2019 End: 04-28-2024 Alcohol intake Current non-drinker of alcohol (finding) [facility] Work Phone: Start: 10-08-2020 End: 10-23-2022 Tobacco use and exposure Never used [facility] Start: 09-30-2021 End: 12-31-2022 Exposure to SARS-CoV-2 (event) Not sure [facility] Start: 04-25-2021 History SDOH Alcohol Comment gave up 1995 [facility] Work Phone: Start: 06-16-2021 End: 10-23-2022 Alcohol intake Lifetime non-drinker (finding) [facility] Start: 01-20-2019 End: 03-23-2022 History SDOH Alcohol Frequency [address] [facility] Start: 03-23-2022 History SDOH Alcohol Std Drinks 0 [facility] Start: 03-23-2022 History SDOH IPV Fear 2 [facility] Start: 03-23-2022 End: 12-31-2022 History of Social function [facility] Within the last year , have you been afraid of your partner or ex-partner? No [facility] How often to you hav e a drink containing alcohol? Never [facility] How many standard drinks containing alcohol do you have on a typical day? Patient does not drink [facility] Within the last year , have you been afraid of your partner or ex-partner? Yes [facility] Start: 03-18-2023 Tobacco smoking stat us FLIS Unknown if ever smoked [facility] Start: 1940 Sex Assigned At Male W [facility] Start: 11-14-2021 End: 08-05-2024 Sex Male (finding) [facility] NEGATED: Highlighted rowStart: NINF History of tobacco use Passive smoker [facility] Goals Date Patient Goal Desired Activity /State Functional Status Date Assessment Result Facility 03-22-2023 Functional status Chair [facility] Work Phone: 02-24-2022 Are you deaf, or do you have serious difficulty hearing No 02/24/2022 3:56 PM Dinah Agustin RN No [facility] 02-24-2022 Are you blind, or do you have serious difficulty seeing, even when wearing glasses No 02/24/2022 3:56 PM Dinah Agustin RN No [facility] 02-24-2022 Do you have serious difficulty walking or climbing stairs No 02/24/2022 3:56 PM Dinah Agustin RN No [facility] 02-24-2022 Do you have difficul ty dressing or bathing No 02/24/2022 3:56 PM Dinah Agustin RN No [facility] 02-24-2022 Because of a physica l, mental, or emotional condition, do you have difficulty doing errands alone such as visiting a physician's office or shopping No 02/24/2022 3:56 PM Dinah Agustin RN No [facility] Mental Status Date Assessment Result Facility 03-22-2023 Cognitive function Level Of Cons ciousness Drowsy [facility] Work Phone: 03-21-2023 Cognitive function Appropriate;Cooperativ e [facility] Work Phone: 03-21-2023 Cognitive function Arousable To Voice/Nam e [facility] Work Phone: 02-24-2022 Because of a physica l, mental, or emotional condition, do you have serious difficulty concentrating, remembering, or making decisions No 02/24/2022 3:56 PM JORGE Becerril DinahBELINDA No [facility] Clinical Notes 10-09-2020 to 04-28-2024 Kathy Jacome APRN - [facility] - 04/28/2024 1:30 PM ESTAddendum Note - Kathy Jacome APRN - [place] - 04/28/2024 1:30 PM ESTAddendum Note - Kathy Jacome APRN - [facility] - 04/28/2024 1:30 PM ESTDischarge Instr - HARDEEP Note Date & Type Note Facility 04-28-2024 History of Present illness Narrative Images from the original note were not included. Kathy Jacome, MSN, PAYROLL REPRESENTATIVE, AGNP-C 04/28/[address] [facility] [address] [facility] [address] [facility] [address] PATIENT NAME: Doroteo Gong DATE OF : 1940 REFERRING PROVIDER: No ref. provider found PCP: Roopa Madera MD TODAY'S DATE: 04/28/2024 Visit type: Established patient HPI: Doroteo is a 83 y.o. male who presents today with chief complaints of: incomplete bladder emptying, hydronephrosis, acute cystitis Schwartz placed 04/07/2024 for retention and cystitis in the hospital. Schwartz exchanged 04/28/2023. Urine culture completed. - Treated with Ertapenem 1gm IM x 7 days from 04/28 - 05/05 - Was on Macrobid 100mg BID from 04/22 to 04/29 and Macrobid 100mg BID from 04/09 to 04/11 - Treated with Macrobid, cefuroxime, and Macrobid in the hospital - Culture 04/22 with ESBL Klebsiella PNE Patient is wheelchair bound. Patient resides at the [facility]. 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 Had schwartz removed since and was voiding. Catheter replaced earlier in 2023 for retention. In a wheelchair for mobility. Cystoscopy next appointment. At [facility]. Catheter/voiding trial this appointment. 01/30/2023: Pau OV - follow up for ER visit for SOB and 850ml urine retention. PVR 331ml this day. Review of Systems: All pertinent positives and negatives per HPI as stated above. Past Medical History: Diagnosis Date Arthritis knees hands Asthma Chronic pain GERD (gastroesophageal reflux disease) Hyperlipidemia Kidney stone 2012 Prostate disease Sleep apnea Thyroid disease Past Surgical History: Procedure Laterality Date APPENDECTOMY BACK SURGERY 2013 slipped disc CATARACT EXTRACTION CHOLECYSTECTOMY JOINT REPLACEMENT Right 2014 LITHOTRIPSY 3-4 times OTHER SURGICAL HISTORY hemorroid removed OTHER SURGICAL HISTORY Left 12/19/2017 stent placement, cystoscopy and pyelogram, Laser Lithotripsy SINUS SURGERY Allergies Allergen Reactions Allopurinol Unknown Erythromycin Unknown Penicillins Unknown Patient tolerates cephalosporins Sulfa Antibiotics Unknown Pt does not know reaction Tetracyclines & Related Unknown Levofloxacin Other jittery Omeprazole Ciprofloxacin Unknown Paroxetine Other Fatigue Physical Exam: BP (!) 107/44 Pulse 82 Ht 5' (1.524 m) Wt 156 lb (70.8 kg) BMI 30.47 kg/m Physical Exam Vitals and nursing note reviewed. Constitutional: General: He is not in acute distress. Appearance: Normal appearance. He is not ill-appearing or toxic-appearing. Pulmonary: Effort: Pulmonary effort is normal. Neurological: Mental Status: He is alert and oriented to person, place, and time. Psychiatric: Behavior: Behavior normal. Judgment: Judgment normal. Pertinent Labs: CBC: Lab Results Component Value Date WBC 7.1 04/11/2024 HGB 9.9 (L) 04/11/2024 HCT 30.4 (L) 04/11/2024 MCV 86.9 04/11/2024 PLT 388 04/11/2024 CMP: Lab Results Component Value Date NA 144 04/11/2024 K 2.8 (L) 04/11/2024 CL 114 (H) 04/11/2024 CO2 20 (L) 04/11/2024 BUN 7 (L) 04/11/2024 CREATININE 0.52 (L) 04/11/2024 GLUCOSE 77 (L) 04/11/2024 ALT 6 04/11/2024 AST 25 04/11/2024 ALKPHOS 53 04/11/2024 Urinalysis: Lab Results Component Value Date COLORU Dark Yellow (A) 04/07/2024 CLARITYU Extra Turbid (A) 04/07/2024 GLUCOSEUR neg 07/01/2020 BILIRUBINUR Negative 06/05/2021 KETONESU Trace (A) 04/07/2024 SPECGRAV 1.020 07/01/2020 RBCUR neg 07/01/2020 PHUR 6.5 07/01/2020 PROTUR 200 (A) 04/07/2024 UROBILINOGEN 3 (A) 04/07/2024 LEUKOCYTESUR 75 (A) 06/05/2021 NITRITE neg 07/01/2020 Urine Culture: Lab Results Component Value Date URINECX 04/07/2024 Multiple species present; probable contamination; repeat suggested Imaging and results/record review: Imaging: === 04/07/24 === CT ABDOMEN PELVIS W CONTRAST - Impression - Impression: 1. Significant nonspecific irregular bladder wall thickening, trabeculation and several diverticula. Underlying obstructive uropathy or bladder wall malignancy not excluded. There is mild distal left hydroureter. Recommend consultation with urology to determine the need for biopsy. 2. Mild nonspecific prostate enlargement with some mass effect on the bladder more inferiorly. This could be a source of obstruction. 3. Multiple hepatic cysts. Some geographic hypodensity within the left hepatic lobe more centrally thought to likely represent focal fatty infiltration. 4. Mild gaseous distention of the large bowel with suggestion of constipation along the sigmoid colon and rectum. 5. Bilateral nonobstructing renal calculi with extrarenal pelvis large in size on the right. Loose calculi within the renal pelvis on the right are at risk for obstruction and measures up to 0.4 cm on the right. Report Dictated on Electronically Signed By: Storm Yepez MD Electronically Signed Date/Time: 04/07/2024 7:23 AM EST ---- === 02/09/23 === US RETROPERITONEAL - Impression - 1. No shiraz hydronephrosis with mild dilatation renal pelvis bilaterally (similar to CT of 06/05/2021). 2. Renal size: RIGHT: 10.3 x 6.3 x 4.8 cm. 0.9 cm cortical cyst (small renal calculus was seen on CT of 06/05/2021) LEFT: 12.4 x 4.7 x 5.5 cm. Probable small renal calculi. 3. Moderate prostatic enlargement with calcifications with mild generalized bladder wall thickening with some irregularity. Report Dictated on Electronically Signed By: Axel Carballo MD Electronically Signed Date/Time: 02/11/2023 3:51 PM EDT Other results/records reviewed: ER records Assessment and Plan: Diagnosis Plan 1. Hypertrophy of prostate with urinary obstruction 2. Incomplete bladder emptying 3. Nephrolithiasis Diagnosis 1: Obstructive uropathy/BPH/incomplete emptying (chronic/unstable/progression) Patient needs scheduled for in office cystoscopy with Dr. Ordonez. Given patient has had multiple chronic bouts of retention. Patient has historically denied cystoscopy. Discussed with patient that malignancy can not be excluded based off of imaging. Discussed with patient if he wants to do cystoscopy to have facility reach out. Would need to be on COT. Change catheter every 30 days with similar catheter. To be done at facility he resides at. Hand irrigation - Flush catheter with saline (60ml) every other day, and as needed for sediment/blood. Hand irrigation should be done by disconnecting catheter from drainage tubing. Once disconnected, using a piston/Chelle syringe (60mL), sterile water should be used to irrigate bladder through catheter tubing. This can be done 2-3 times in one setting. Would avoid treated asymptomatic bacteruria per guidelines. Would not culture, just to culture. Diagnosis 2: Non-obstructing kidney stones (acute/stable) Largest stone measures 4mm. Give that patient is asymptomatic at this point. Would elect to monitor these stones. KUB in 6 months. Can be done at facility patient resides at. Send results to us. Discussed emergent kidney stone symptoms - fever over 100.4, severe flank pain, flank swelling. All patient questions answered. Patient voiced understanding. Patient agreed with treatment plan. Discussed adverse effects and side effects of medication treatment. Follow Up: Follow up if symptoms worsen or fail to improve. Kathy Jacome, MSN, PAYROLL REPRESENTATIVE, AGNP-C [facility] Urology Please note that portions of this chart were dictated using [employer] voice recognition software. It is possible that typos and/or omissions and/or substitutions of words and/or phrases may exist, which may alter the intended meaning of the dictating provider. documented in this encounter [facility] [employer] 04-28-2024 Miscellaneous Notes Addended by: KATHY JACOME on: 04/28/2024 01:57 PM Modules accepted: Orders documented in this encounter [facility] [employer] 04-28-2024 Note Addended by: KATHY JACOME on: 04/28/2024 01:57 PM Modules accepted: Orders [facility] [employer] 04-28-2024 Note Addended by: KATHY JACOME on: 04/28/2024 01:57 PM Modules accepted: Orders [facility] [employer] 04-18-2024 Telephone encounter Note Dana [facility] [employer] Work Phone: 04-18-2024 Miscellaneous Notes Okay Called Micheline back at [facility] ([phone]), this facility has assumed care over the patient after his dc from [place] admission. Schwartz placed 04/04 for retention. Given address and apt date/time. Facility doc declined the void trail until pt has his follow up apt with our office. [facility] Reason for Appointment: Micheline is asking if the office wants her staff to do a voiding trial prior to pt's appt Office Name: Uro Medication Refills need, if any: NA Medication Name: NA documented in this encounter [facility] 04-17-2024 Telephone encounter Note Called Micheline back at [facility] ([phone]), this facility has assumed care over the patient after his dc from [place] admission. Schwartz placed 04/04 for retention. Given address and apt date/time. Facility doc declined the void trail until pt has his follow up apt with our office. [facility] 04-17-2024 Telephone encounter Note [facility] Reason for Appointment: Micheline is asking if the office wants her staff to do a voiding trial prior to pt's appt Office Name: Uro Medication Refills need, if any: NA Medication Name: NA [facility] 04-11-2024 Nurse Note Report given to Katty at [facility]. [facility] 04-11-2024 Nurse Note Report given to Katty at [facility]. Via secure chat, repeat urine culture is not needed. documented in this encounter [facility] 04-11-2024 Miscellaneous Notes Patient Choice Patient Name: DOROTEO GONG Date of : 1940 All Providers Sent [facility]: [phone] Address: [address] [place] [address] Discharge med list transmitted to [facility] via Careport per TCC request. [id number] was entered into [facility] for the SNF- Facility is aware Asked by [facility] to set transport to [facility]. The [employer] Vehicle you requested for Doroteo Mora in unit/room [facility] [id number] on 04/11/2024 is scheduled to arrive at 1:30pm EST! [employer] is handling this ride and you can contact them at . Pt, Friend Solange, nurse, unit sec, TCC, and facility informed of time. Problem: Knowledge Deficit Goal: Patient/family/caregiver demonstrates understanding of disease process, treatment plan, medications, and discharge instructions Outcome: Progressing Problem: Potential for Compromised Skin Integrity Goal: Skin Integrity is Maintained or Improved Outcome: Progressing Goal: Nutritional status is improving Outcome: Progressing Problem: Urinary Incontinence Goal: Perineal skin integrity is maintained or improved Outcome: Progressing Problem: Pain - Adult Goal: Verbalizes/displays adequate comfort level or baseline comfort level Outcome: Progressing Problem: Safety - Adult Goal: Free from fall injury Outcome: Progressing Problem: Discharge Planning Goal: Discharge to home or other facility with appropriate resources Outcome: Progressing Problem: Chronic Conditions and Co-morbidities Goal: Patient's chronic conditions and co-morbidity symptoms are monitored and maintained or improved Outcome: Progressing Problem: Problem Interventions Goal: Dietary Supplements Outcome: Progressing Goal: Promote nutritional intake Outcome: Progressing Problem: Knowledge Deficit Goal: Patient/family/caregiver demonstrates understanding of disease process, treatment plan, medications, and discharge instructions Outcome: Progressing Problem: Potential for Compromised Skin Integrity Goal: Skin Integrity is Maintained or Improved Outcome: Progressing Goal: Nutritional status is improving Outcome: Progressing Problem: Urinary Incontinence Goal: Perineal skin integrity is maintained or improved Outcome: Progressing Problem: Pain - Adult Goal: Verbalizes/displays adequate comfort level or baseline comfort level Outcome: Progressing Problem: Safety - Adult Goal: Free from fall injury Outcome: Progressing Problem: Discharge Planning Goal: Discharge to home or other facility with appropriate resources Outcome: Progressing Problem: Chronic Conditions and Co-morbidities Goal: Patient's chronic conditions and co-morbidity symptoms are monitored and maintained or improved Outcome: Progressing Problem: Problem Interventions Goal: Dietary Supplements Outcome: Progressing Goal: Promote nutritional intake Outcome: Progressing Received a message from Rene VACA that pt's family would like for him to go to [facility] rather than return to [facility]. Referral sent, [facility] is able to accept. Does not need auth, does need 3MN inpatient stay. TCC will continue to follow. Referral placed to [facility] via Careport per TCC request. Await review and response regarding ability to accept. TCC notified. Family Communication Number Called: [phone] Name of Designated Family School Social Worker: Harshil Murguia nephstevenson I spoke with the individual listed above Family School Social Worker Updated on the Following: medical updates, confirms Solange is HCPOA, they do not want him to return to , but at [place] go to [facility] for care. Agrees with DNRCCA-DNI. At facility he had CP, was treated for covid/pna 6 weeks ago, continues with congestion, worried if needs treated for this as well, aware I will update primary team. Asked me to call Solange and provided her number will add to contacts Family Communication Number Called: [phone] Name of Designated Family School Social Worker: Solange Cousin/HCPOA I spoke with the individual listed above Family School Social Worker Updated on the Following: medical updates, confirms Solange is HCPOA she will email me this and I told her I would print and place on chart, they do not want him to return to , but at [place] go to [facility] for care. Agrees with DNRCCA-DNI. At facility he had CP, was treated for covid/pna 6 weeks ago, continues with congestion, worried if needs treated for this as well, aware I will update primary team. He has had diarrhea for weeks, had only been taking in ensure at facility it sounds like per Doroteo. Thankful for call and care IA completed with pt at [facility]. From [facility]. Has cane, WW, and handicapped accessible bathroom. Facility assists with ADLs and IADLs. 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 Awaiting answer from SNF. TCC will continue to follow. The time of this note does not reflect the actual time patient was seen and assessed but instead the time of this documentation. Referral placed to return back to [facility] via Careport per TCC request. Await review and response regarding ability to accept. TCC notified. Problem: Knowledge Deficit Goal: Patient/family/caregiver demonstrates understanding of disease process, treatment plan, medications, and discharge instructions Outcome: Progressing Problem: Potential for Compromised Skin Integrity Goal: Skin Integrity is Maintained or Improved Outcome: Progressing Problem: Pain - Adult Goal: Verbalizes/displays adequate comfort level or baseline comfort level Outcome: Progressing met Flowsheets (Taken 04/07/2024 1843) Verbalizes/displays adequate comfort level or baseline comfort level: Encourage patient to monitor pain and request assistance Assess pain using appropriate pain scale Problem: Safety - Adult Goal: Free from fall injury Outcome: Progressing met Flowsheets (Taken 04/07/2024 1843) Free from fall injury: Instruct family/caregiver on patient safety Based on caregiver fall risk screen, instruct family/caregiver to ask for assistance with transferring if caregiver noted to have fall risk factors documented in this encounter [facility] 04-11-2024 Note Formatting of this n ote might be different from the original. Patient Choice Patient Name: DOROTEO GONG Date of : 1940 All Providers Sent Referral Name: Citra Style. Phone: [phone] Address: [address] [place] [id number] [facility] 04-11-2024 Note Formatting of this n ote might be different from the original. Patient Choice Patient Name: DOROTEO GONG Date of : 1940 All Providers Sent Referral Name: Citra Style. Phone: [phone] Address: [address] [place] [id number] [facility] 04-11-2024 Note Formatting of this n ote might be different from the original. Discharge med list transmitted to [facility] via [facility]port per TCC request. 7000 was entered into [facility] for the [facility]- Facility is aware [facility] 04-11-2024 Note Formatting of this n ote might be different from the original. Discharge med list transmitted to [facility] via [facility]port per TCC request. 7000 was entered into [facility] for the [facility]- Facility is aware [facility] 04-11-2024 Note Discharge Summary Doroteo Gong : 1940 ADMIT DATE: 04/07/2024 DISCHARGE DATE: 04/12/2024 PRIMARY CARE PHYSICIAN: Roopa Madera VISIT STATUS: Admission CODE STATUS: Prior DISCHARGE DIAGNOSES: Principal Problem: Urinary tract infection without hematuria, site unspecified Active Problems: Moderate malnutrition (CMS/HCC) (FORMERLY [facility]) HOSPITAL COURSE: Doroteo Gong is a 83 y.o. male with past medical history significant for UTIs, nephrolithiasis, GERD, chronic pain, pulmonary hypertension, interstitial lung disease, RICKY, COPD with asthma who presents to the emergency department per EMS with reported history of altered mental status. Pt arrived from [facility], because he was pressing the call light too many times SNF reported the patient was confused, however patient was alert and oriented x 4 for EMS with stable vital signs He complained of abdominal discomfort associated with nausea but no vomiting.. CT scan of the abdomen showed irregular bladder wall thickening along with some obstructive uropathy with unable to exclude bladder wall malignancy and left hydroureter. Pt was started on IV Ceftriaxone. Urology consulted who recommended maintaining schwartz catheter to drainage and to go home with Schwartz catheter upon discharge MARTIAL ARTS INSTRUCTOR cleared the pt for Soft and bite-sized solids and Thin liquids and meds crushed in puree with precautions. On 04/11, the pt completed the Ceftriaxone course and was deemed ready for DC. SIGNIFICANT DIAGNOSTIC STUDIES: CT A\P CONSULTANTS: Urology Pal Med ([facility]) RECOMMENDED NEXT STEPS: Follow up with PCP Physical Exam Vitals and nursing note reviewed. HENT: Mouth/Throat: Pharynx: Oropharynx is clear. Eyes: Conjunctiva/sclera: Conjunctivae normal. Cardiovascular: Rate and Rhythm: Normal rate. Pulmonary: Effort: Pulmonary effort is normal. No respiratory distress. Abdominal: General: Bowel sounds are normal. Skin: General: Skin is warm. Capillary Refill: Capillary refill takes less than 2 seconds. Neurological: Mental Status: Pt is alert. DISCHARGE MEDICATIONS: Medication List CHANGE how you take these medications carboxymethylcellulose 0.5 % ophthalmic solution Commonly known as: Refresh Plus Administer 1 drop into both eyes 2 times daily as needed for dry eyes. What changed: when to take this ergocalciferol 1.25 MG (02187 UT) capsule Commonly known as: Vitamin D-2 Take 1 capsule (1.25 mg) by mouth 1 (one) time per week. What changed: when to take this CONTINUE taking these medications acetaminophen 325 MG tablet Commonly known as: Tylenol albuterol 108 (90 Base) MCG/ACT inhaler alfuzosin ER 10 MG 24 hr tablet Commonly known as: Uroxatral Take 1 tablet (10 mg) by mouth daily. atorvastatin 10 MG tablet Commonly known as: Lipitor [facility] Vitamin B-12 1000 MCG tablet Generic drug: cyanocobalamin Diclofenac Sodium 1 % gel Commonly known as: Voltaren finasteride 5 MG tablet Commonly known as: Proscar Take 1 tablet (5 mg) by mouth daily. fluticasone 110 MCG/ACT inhaler Commonly known as: Flovent hydroCHLOROthiazide 25 MG tablet Commonly known as: HYDRODiuril ipratropium 0.06 % nasal spray Commonly known as: Atrovent levothyroxine 50 MCG tablet Commonly known as: Synthroid, Levoxyl Lidocaine 4 % patch loratadine 10 MG tablet Commonly known as: Claritin magnesium hydroxide 800 MG/5ML suspension Commonly known as: Milk of Magnesia Melatonin 3-10 MG tablet nitrofurantoin (macrocrystal-monohydrate) 100 MG capsule Commonly known as: Macrobid omeprazole [address] capsule Commonly known as: PriLOSEC ondansetron ODT 4 MG disintegrating tablet Commonly known as: Zofran-ODT phenazopyridine 100 MG tablet Commonly known as: Pyridium polyethylene glycol (PEG) 3350 17 GM/SCOOP powder Commonly known as: Glycolax psyllium 0.52 g capsule Commonly known as: Metamucil sertraline 25 MG tablet Commonly known as: Zoloft tamsulosin 0.4 MG 24 hr capsule Commonly known as: Flomax traMADol 50 MG tablet Commonly known as: Ultram Where to Get Your Medications You can get these medications from any pharmacy Bring a paper prescription for each of these medications carboxymethylcellulose 0.5 % ophthalmic solution ergocalciferol 1.25 MG (30104 UT) capsule DIET: No diet orders on file ACTIVITY: Up with assist COMPLEXITY OF FOLLOW UP: [] Moderate Complexity: follow up within 7-14 calendar days (29953) [] Severe Complexity: follow up within 7 calendar days (54563) FOLLOW UP TESTING, PENDING RESULTS OR REFERRALS AT TRANSITIONAL CARE VISIT: [] Yes [] No PENDING STUDIES: None DISPOSITION: Skilled Facility FACILITY/HOME CARE AGENCY NAME: [facility] Follow up with Roopa Madera MD [id number] [place] [phone] [place] (more content not included)... [facility] 04-11-2024 History of Present illness Narrative Images from the original note were not included. OCCUPATIONAL THERAPY [facility] Treatment Note Name/MRN: Doroteo Gong ([id number]) Date of : 1940 Age: 83 y.o. Room/Bed: B4461/B4461 A Visit #: 1 out of 7 visits Discharge Recommendation: Intermediate Facility Equipment Needed: No Prior Level of Function Prior Level of ADL Function: Independent (pt questionable historian) per CM note, requires assist Prior Level of Mobility: Independent (pt questionable historian); Device: Front wheeled walker Prior Level of Transfers: Independent (pt questionable historian) Assessment Pt seen for OT this date with a focus on bed mobility and ADL task completion. Pt completed bed mobility with rolling left to right with Max A, Mod A to maintain side lying position. He performed grooming tasks with SBA after set up, Mod A for UE dressing, and dependent for toileting tasks. Pt initially agreeable to OOB activity but then declined after initiating bed mobility. He is limited by increased fatigue, weakness, and confusion this date. Pt would benefit from continued skilled OT services to address the below. OT rec is for SNF upon planned discharge. Subjective Pt supine in bed upon arrival, pleasant and agreeable. Per RN, pt okay to see. Pt initially agreeable to OOB activity, then declines after initiating bed mobility. Pain: Pt denies any current pain. Medical Precautions: No active isolations Proper PPE donned/doffed in accordance with facility standards. Fall Risk: Villanueva Fall Risk Score: 95 (High Risk) Precautions/Restrictions: N/A Family/Caregiver Present: none Objective ADLs Toileting: Dependent Grooming: SBA, after setup UE Dressing: Mod Assist Pt completed grooming tasks while supine in bed with SBA after set up. Mod A for UE dressing to doff/don gown, he required assist for sleeve mgmt. Pt was dependent for bed level toileting hygiene, he completed rolling L/R for draw pad change and hygiene. Pt required constant VC's for initiation/sequencing of tasks throughout all ADL task completion. Bed Mobility Rolling to right: Max Assist Rolling to left: Max Assist Pt performed bed mobility rolling L/R with Max A, he required Max A to initiate and complete roll to each side. Once in side lying position, pt able to assist slightly more with use of bed rail and required Mod A to maintain side lying position. VC's fro sequencing and positioning. Cognition Exceptions - Following commands: follows one step commands with increased time and follows one step commands with repetition - Memory: decreased recall of recent events and decreased short term memory - Safety judgement: decreased awareness of need for assistance and decreased awareness of need for safety - Problem solving: assistance required to generate solutions, assistance required to implement solutions, assistance required to identify errors made, assistance required to correct errors made, and decreased awareness of errors - Insights: decreased awareness of deficits - Initiation: requires cues for some - Sequencing: requires cues for some Plan Continue acute OT per plan of care. Safety/Education Safety Safety Devices in place: All fall risk precautions in place, call light within reach, left in bed, bed alarm in place, gait belt, patient at risk for falls, nurse notified, and no alarms engaged upon entry Restraints: No Education Education Given To: patient Education Provided: OT Role, Plan of Care, ADL Adaptive Strategies, Fall Prevention Education, Discharge Recommendations, and Benefits of Increasing Activity Education Method: Verbal, Demonstration, and Teach Back Barriers to Learning: Cognition Education Outcome: Verbalized Understanding, Demonstrated Understanding, and Continued Education Needed AM-PAC AM-PAC Inpatient Daily Activity Raw Score: 11 ADL Inpatient CMS G-Code Modifier: CL Goals Patient Stated Goal: none stated at this time. Encounter Problems Encounter Problems (Active) Dressing Upper Extremities Patient will complete upper body dressing SBA (Progressing) Start: 04/09/24 Expected End: 04/19/24 Dressings Lower Extremities Patient will dress lower body MIN A (Not Addressed) Start: 04/09/24 Expected End: 04/19/24 Mobility Patient will demonstrate functional mobility as appropraite with FWW and MOD A (Not Addressed) Start: 04/09/24 Expected End: 04/19/24 Toileting Patient will complete toileting tasks at bedside commode with mod assist. (Not Addressed) Start: 04/09/24 Expected End: 04/19/24 Transfers Patient will complete functional transfer with least restrictive device with mod assist in order to prepare for ambulation. (Not Addressed) Start: 04/09/24 Expected End: 04/19/24 Therapy Time Individual Co-treatment Time In 1017 Time Out 1030 Minutes 13 Timed Code Treatment Minutes: 13 Minutes (1 THER ACT) TACO Huerta Cosigned by Mike Lemon OT at 04/11/2024 1:02 PM EST Images from the original note were not included. Speech-Language Pathology SPEECH LANGUAGE PATHOLOGY [facility] Dysphagia Treatment Note Patient Name: Doroteo Gong Evaluation Date: 04/11/2024 Date of : 1940 Admission Date: 04/07/2024 4:42 AM Age: 83 y.o. Room[facility]: [facility] Subjective Patient alert and cooperative. Seen upright in bed. Answers all basic questions with clear vocal quality. Follows all basic commands. No visitors at bedside. Spoke with BELINDA Weller who cleared pt for treatment. Current Diet: Dietary Orders (From admission, onward) Start Ordered 04/09/24 1227 Supplement:Breakfast; Vanilla Ensure Plus Until discontinued Question Answer Comment Frequency Breakfast Select supplement: Vanilla Ensure Plus 04/09/24 1226 04/09/24 1227 Supplement:Lunch; Chocolate Ensure Plus Until discontinued Question Answer Comment Frequency Lunch Select supplement: Chocolate Ensure Plus 04/09/24 1226 04/09/24 1227 Supplement:Dinner; Dorr Ensure Plus Until discontinued Question Answer Comment Frequency Dinner Select supplement: Dorr Ensure Plus 04/09/24 1226 04/09/24 1150 Adult diet Dysphagia - Soft and Bite Sized Diet effective now Question: Diet type Answer: Dysphagia - Soft and Bite Sized 04/09/24 1149 Aspiration Precautions: - Upright positioning for all PO intake - Slow rate of intake - Small bites/sips - 1:1 Assistance Oxygen: Oxygen Therapy: Supplemental oxygen O2 Delivery Method: Nasal cannula O2 Flow Rate (L/min): 2 L/min Pain: Reports Pain everywhere PPE Worn: gloves Objective & Assessment Dysphagia Treatment Dysphagia Activity 1: Assess tolerance of current diet. Patient seen with breakfast tray consisting of scrambled egg and oatmeal. Patient does not have dentures and reports that dentures are ill fitting so that he does not use them at baseline. Patient is receptive for each bolus. Mastication efforts are limited - patient spits textures out onto the napkin - ~ 25% of each bolus. Attempted to offer a liquid chaser bolus. Patient is only partially receptive to same. Noted that the swallow is at times audible with straw drinks of juice. Also noted clinically reduced hyolaryngeal excursion. Posterior lingual tone is subjectively reduced. Patient coughs with oatmeal and scrambled egg particles. Question incomplete oropharyngeal clearance. Even noted mild coating on the soft palate after patient drinking Ensure. Cued patient to use a re-swallow and did eventually clear. Patient had a MBSS in 2021 that did report reduced epiglottic deflection and vallecular residue. Will initiate oropharyngeal strengthening if patient is cooperative. Plan & Recommendations Plan: Please change the diet to Minced and Moist with Thin liquids. Will continue the dysphagia plan of care to ensure patient tolerance of same and introduce oropharyngeal strengthening. Small bolus size Alternate food with liquid Assist with feeding Re-swallow D/C Recommendations: ongoing speech therapy at next level of care Education Education Given: swallowing strategies, diet recommendations Given To: patient, caregiver, and RN Response: patient needs reinforcement Goals Patient Stated Goal: None stated. 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 Time In: 734 Time Out: 0755 Minutes: 20 JUICE Fowler Images from the original note were not included. Speech-Language Pathology SPEECH LANGUAGE PATHOLOGY [facility] Dysphagia Treatment Note Patient Name: Doroteo Gong Evaluation Date: 04/10/2024 Date of : 1940 Admission Date: 04/07/2024 4:42 AM Age: 83 y.o. Room[facility]Bed: [facility] A Subjective Patient alert and not cooperative. Seen semi-upright in bed. Answers all basic questions with clear vocal quality with periods of wettness. Follows some basic commands. No visitors at bedside. Spoke with BELINDA Weller who cleared pt for treatment. Current Diet: Dietary Orders (From admission, onward) Start Ordered 04/09/24 1227 Supplement:Breakfast; Vanilla Ensure Plus Until discontinued Question Answer Comment Frequency Breakfast Select supplement: Vanilla Ensure Plus 04/09/24 1226 04/09/24 1227 Supplement:Lunch; Chocolate Ensure Plus Until discontinued Question Answer Comment Frequency Lunch Select supplement: Chocolate Ensure Plus 04/09/24 1226 04/09/24 1227 Supplement:Dinner; Dorr Ensure Plus Until discontinued Question Answer Comment Frequency Dinner Select supplement: Dorr Ensure Plus 04/09/24 1226 04/09/24 1150 Adult diet Dysphagia - Soft and Bite Sized Diet effective now Question: Diet type Answer: Dysphagia - Soft and Bite Sized 04/09/24 1149 Aspiration Precautions: - Upright positioning for all PO intake - Slow rate of intake - Small bites/sips - 1:1 Assistance Oxygen: Oxygen Therapy: Supplemental oxygen O2 Delivery Method: Nasal cannula O2 Flow Rate (L/min): 2 L/min I can't sit up because my coccyx hurts Pain: Pain in coccyx, RN aware and did previously medicate. Pt was repositioned at end of session. PPE Worn: gloves Objective & Assessment Dysphagia Treatment # of Activities: 1 Dysphagia Activity 1: Assess tolerance of current diet. Advanced diet trials if dentures present. Pt indicated that he does not have his dentures. He thinks they are in the closet or at the previous rehab facility. Noted: they are loose, I've lost weight. Pt took very limited po, only sips of water. Noted some baseline intermittent cough/wetness. Pt deferred any solid textures at this time. No additional information or report on tolerance of current recommended diet of soft and bite sized. Suggest further assessment. Will attempt prandial assessment as pt willing. Plan & Recommendations Plan: Continue assessment of current diet of soft and bite sized. Advanced diet trials if dentures are available. Continue acute MARTIAL ARTS INSTRUCTOR therapy per initial plan of care and established goals. D/C Recommendations: to be determined Education Education Given: swallowing strategies, diet recommendations/availability of dentures Given To: patient Response: needs reinforcement Goals Patient Stated Goal: To get comfortable. Encounter Problems Encounter Problems (Active) Swallowing Patient will tolerate the least restrictive diet consistency to allow for safe consumption of daily meals (Initiated) Start: 04/09/24 Expected End: 04/23/24 Patient will tolerate recommended food and liquid consistencies without clinical signs and symptoms of aspirations (Initiated) Start: 04/09/24 Expected End: 04/23/24 Therapy Time MARTIAL ARTS INSTRUCTOR Individual Minutes Time In: 1410 Time Out: 1419 Minutes: 9 JUICE Mckeon Hospitalist Progress Note 04/10/2024 [phone]: Please page me ([phone]) for patient care issues. [phone]: Please page [facility] Hospitalist for any issues. Subjective: Admit Date: 04/07/2024 PCP: Roopa Madera MD Room#: B4-400/B4-393 Jak Gong is a 83 y.o. male who presents with Urinary tract infection without hematuria, site unspecified Interval History: Pt was seen and examined at bedside No acute events overnight Pt feels better today and reports that his stomach discomfort is mild this AM Pt remains HDS, afebrile, satting well on 2L NC - BLCX are [employer]GT[employer] sponsorship manager the pt for ECF with PT. OT skilled the pt for SNF MARTIAL ARTS INSTRUCTOR cleared the pt for Soft and bite-sized solids and Thin liquids and meds crushed in puree with precautions. Case and plan discussed with patient and the assigned nurse. All questions answered. Adult diet Dysphagia - Soft and Bite Sized 24HR INTAKE/OUTPUT: Intake/Output Summary (Last 24 hours) at 04/10/2024 1238 Last data filed at 04/10/2024 0627 Gross per 24 hour Intake 3226.67 ml Output 850 ml Net 2376.67 ml LABS: CBC: Recent Labs 04/08/24 0109 04/09/24 1614 04/10/24 0644 WBC 20.0* 9.7 8.9 RBC 4.21* 3.72* 3.68* HGB 12.0* 10.6* 10.5* HCT 36.3* 32.4* 32.0* MCV 86.2 87.1 87.0 RDW 14.1 14.4 14.6 PLT 524* 447* 429 BMP: Recent Labs 04/08/24 0109 04/09/24 1614 04/10/24 0644 NA 133* 135* 138 K 3.8 3.2* 3.7 CL 100 107 111* CO2 26 22* 23 BUN 28* 12 8* CREATININE 0.88 0.67* 0.62* GLUCOSE 91 108 96 CALCIUM 8.9 8.0* 7.9* ANIONGAP 7 6 4 LIVER PROFILE: Recent Labs 04/09/24 1614 04/10/24 0644 AST 31 31 ALT 10 10 BILITOT 0.2 0.2 ALKPHOS 76 65 PROT 4.9* 4.5* PT/INR: No results for input(s): PROTIME, INR in the last 72 hours. CARDIAC ENZYMES: No results for input(s): TROPONINI in the last 72 hours. Procalcitonin: No results found for: PROCAL @RISRSLTSPECIALTY@ Objective: Vitals: BP 110/53 Pulse 71 Temp 36.2 C (97.2 F) (Temporal) Resp 20 Ht 5' (1.524 m) SpO2 93% BMI 30.58 kg/m Pulse Ox: SpO2 Av.5 % Min: 93 % Max: 96 % Supplemental O2: O2 Flow Rate (L/min): 2 L/min 04/10/2024 General appearance: Appears in anxious and mild distress, appears stated age, AAOX3 Oral: Tongue is semi-moist Cardiovascular: S1/S2 heard, RRR Respiratory: Diminished breath sounds abdomen: Soft, obese, non-tender, non-distended bowel sounds positive Musculoskeletal: No obvious deformities seen, mild ankle edema Skin: No rash no lesions Medications: sodium chloride, 100 mL/hr, Last Rate: 100 mL/hr (04/10/24 0559) atorvastatin, 10 mg, Oral, Nightly cefTRIAXone, 1,000 mg, IntraVENous, q24h cetirizine, 5 mg, Oral, Daily cyanocobalamin, 1,000 mcg, Oral, Daily enoxaparin, 40 mg, SubCUTAneous, Daily finasteride, 5 mg, Oral, Daily fluticasone, 2 puff, Inhalation, BID [Held by provider] hydroCHLOROthiazide, 25 mg, Oral, q AM influenza, 0.5 mL, IntraMUSCular, Prior to discharge ipratropium, 2 spray, Each Nostril, 4x daily levothyroxine, 50 mcg, Oral, Daily Lidocaine, 1 patch, Topical, Daily melatonin, 3 mg, Oral, Nightly pantoprazole, 40 mg, Oral, qAM AC phenazopyridine, 100 mg, Oral, TID WC polyethylene glycol (PEG) 3350, 17 g, Oral, Daily psyllium, 3.4 g of fiber, Oral, Daily sertraline, 25 mg, Oral, q AM stomahesive in petrolatum, , Topical, TID tamsulosin, 0.4 mg, Oral, Daily PRN medications: acetaminophen OR acetaminophen, albuterol, artificial tears, methocarbamol, naloxone, ondansetron ODT OR ondansetron, polyethylene glycol (PEG) 3350, simethicone, stomahesive in petrolatum, traMADol Assessment Left hydroureter and bladder wall thickening with abdominal pain-previously declined cystoscopy, Schwartz catheter was replaced Benign prostatic hypertrophy-continue alfuzosin Bilateral nonobstructing renal calculi, Possible UTI-cover with ceftriaxone, await urine culture Hypokalemia Chronic problems Asthma-albuterol as needed GERD Hyperlipidemia-continue atorvastatin Sleep apnea, noncompliant with CPAP Anxiety-continue sertraline Hypothyroidism-continue levothyroxine Obesity (BMI 30 - 39) Moderate malnutrition Plan Reviewed CBC BMP and ordered CBC BMP in a.m. Continue ceftriaxone (one more dose needed, it ends on 04/11) Will check with the facility if the pt could go there with PIV while still need one more dose of IV Abx Continue Robaxin prn & Simethicone prn Patient's family does not want him to go back to [facility]. Instead they would like him to go to [facility], for which he needs 3 midnight stay -am labs, replace lytes prn -increase activity Diet Adult diet Dysphagia - Soft and Bite Sized DVT Prophylaxis [x] Lovenox, [] Heparin, [] SCDs, [] Ambulation [] Already on Anticoagulation GI Prophylaxis [x] PPI, [] H2 Nick, [] Carafate, [] Diet/Tube Feeds Code Status DNR-CCA Disposition Patient requires continued admission due to hematuria and left hydroureter MDM [] Low, [] Moderate,[x] High Patient's risk as above Total time spent (which include face to face and non face to face encounters) : 50 minutes Toxic drug monitoring/narrow therapeutic index drug monitoring : # Drug name : Ceftriaxone # Route administered : Intravenous # Method of monitoring : Daily labs Extended Emergency Contact Information Primary Emergency Contact: Solange Rodriguez Relation: Other Secondary Emergency Contact: Harshil Murguia Mobile Relation: Nephew Advance Directive: DNR-CCA Discharge planning: TBD Yissel Eason MD Division of Hospitalist Medicine Inpatient Medical Services/[facility] [place] \ Images from the original note were not included. [facility] Wound Care Progress Note Doroteo Gong AGE: 83 y.o. GENDER: male : 1940 Subjective: HISTORY of PRESENT ILLNESS HPI Doroteo Gong is a 83 y.o. male who presents for a wound care follow up. HPI: Patient presented to the emergency department on 04/07 per EMS with reported history of altered mental status. Per EMS and the patient, he was sent to the emergency department because he was pressing his call light too many times at the SNF. SNF reported the patient was confused, however patient was alert and oriented x 4 for EMS with stable vital signs. Upon obtaining further history, patient states he was on his call light because he could not get comfortable and was trying to get the nurse. Reports he has been having abdominal pain since this morning. Pain is diffuse and associated with nausea but no vomiting. Urology consult pending. Patient resting in bed at time of visit. Treatment applied. Denies further needs. PAST MEDICAL HISTORY Active Ambulatory Problems Diagnosis Date Noted Renal calculi 09/28/2016 Hydronephrosis with ureteropelvic junction (UPJ) obstruction 09/28/2016 Flank pain 09/28/2016 Ureteral calculus 12/19/2017 Upper respiratory tract infection due to influenza A virus 06/23/2019 Acute asthma exacerbation 06/20/2019 Hypoxia 11/04/2020 Shortness of breath 10/05/2020 RICKY (obstructive sleep apnea) 11/04/2020 Class 2 obesity due to excess calories without serious comorbidity with body mass index (BMI) of 36.0 to 36.9 in adult 11/04/2020 Moderate persistent asthma without complication 11/04/2020 Oropharyngeal dysphagia 04/25/2021 Hypertrophy of prostate with urinary obstruction 08/02/2017 Fall, initial encounter 02/22/2022 UTI (urinary tract infection) 02/23/2022 Influenza A 03/21/2022 Inability to walk 02/13/2023 Debility 02/14/2023 Declining functional status 02/14/2023 History of urinary retention 02/14/2023 At risk for delirium 02/14/2023 Polypharmacy 02/14/2023 Resolved Ambulatory Problems Diagnosis Date Noted No Resolved Ambulatory Problems Past Medical History: Diagnosis Date Arthritis Asthma Chronic pain GERD (gastroesophageal reflux disease) Hyperlipidemia Kidney stone 2012 Prostate disease Sleep apnea Thyroid disease PAST SURGICAL HISTORY Past Surgical History: Procedure Laterality Date APPENDECTOMY BACK SURGERY 2014 slipped disc CATARACT EXTRACTION CHOLECYSTECTOMY JOINT REPLACEMENT Right 2014 LITHOTRIPSY 3-4 times OTHER SURGICAL HISTORY hemorroid removed OTHER SURGICAL HISTORY Left 12/19/2017 stent placement, cystoscopy and pyelogram, Laser Lithotripsy SINUS SURGERY FAMILY HISTORY Family History Problem Relation Name Age of Onset Heart failure Mother Diabetes Mother SOCIAL HISTORY Social History Tobacco Use Smoking status: Never Smokeless tobacco: Never Vaping Use Vaping status: Never Used Substance Use Topics Alcohol use: No Drug use: No ALLERGIES Allergies Allergen Reactions Allopurinol Unknown Erythromycin Unknown Penicillins Unknown Patient tolerates cephalosporins Sulfa Antibiotics Unknown Pt does not know reaction Tetracyclines & Related Unknown Levofloxacin Other jittery Omeprazole Ciprofloxacin Unknown Paroxetine Other Fatigue MEDICATIONS No current facility-administered medications on file prior to encounter. Current Outpatient Medications on File Prior to Encounter Medication Sig Dispense Refill atorvastatin (Lipitor) 10 MG tablet Take 10 mg by mouth Nightly. acetaminophen (Tylenol) 325 MG tablet Take 650 mg by mouth. albuterol 108 (90 Base) MCG/ACT inhaler Inhale 2 puffs every 6 hours as needed. alfuzosin ER (Uroxatral) 10 MG 24 hr tablet Take 1 tablet (10 mg) by mouth daily. 90 tablet 3 cyanocobalamin ([employer] Vitamin B-12) 1000 MCG tablet Take 1,000 mcg by mouth. Diclofenac Sodium (Voltaren) 1 % gel Apply topically daily. ergocalciferol (Vitamin D-2) 1.25 MG (62019 UT) capsule Take 1.25 mg by mouth daily. finasteride (Proscar) 5 MG tablet Take 1 tablet (5 mg) by mouth daily. 90 tablet 3 fluticasone (Flovent) 110 MCG/ACT inhaler Inhale 2 puffs in the morning and 2 puffs before bedtime. hydroCHLOROthiazide (HYDRODiuril) 25 MG tablet Take 25 mg by mouth every morning. ipratropium (Atrovent) 0.06 % nasal spray Administer 2 sprays into affected nostril(s). levothyroxine (Synthroid, Levoxyl) 50 MCG tablet Take 50 mcg by mouth in the morning. Lidocaine 4 % patch Place 1 patch on the skin 2 times daily. Removed at bed time loratadine (Claritin) 10 MG tablet Take 10 mg by mouth daily. magnesium hydroxide (Milk of Magnesia) 800 MG/5ML suspension Take by mouth Daily as needed for constipation. Melatonin 3-10 MG tablet Take 3 mg by mouth Nightly. nitrofurantoin, macrocrystal-monohydrate, (Macrobid) 100 MG capsule Take 100 mg by mouth every 12 hours. omeprazole (PriLOSEC) [address] capsule Take 20 mg by mouth in the morning. ondansetron ODT (Zofran-ODT) 4 MG disintegrating tablet Take 4 mg by mouth every 8 hours as needed for nausea or vomiting. phenazopyridine (Pyridium) 100 MG tablet Take 100 mg by mouth 2 times daily. polyethylene glycol, PEG, 3350 (Glycolax) 17 GM/SCOOP powder Take by mouth. psyllium (Metamucil) 0.52 g capsule Take 1 capsule by mouth daily. sertraline (Zoloft) 25 MG tablet Take 25 mg by mouth every morning. tamsulosin (Flomax) 0.4 MG 24 hr capsule Take 0.4 mg by mouth Nightly. traMADol (Ultram) 50 MG tablet Take 50 mg by mouth every 8 hours as needed for severe pain (7-10). [DISCONTINUED] carboxymethylcellulose (Refresh Plus) 0.5 % ophthalmic solution Administer 1 drop into both eyes if needed for dry eyes. [DISCONTINUED] escitalopram (Lexapro) 10 MG tablet Take 10 mg by mouth daily. [DISCONTINUED] simvastatin (Zocor) 20 MG tablet Take 20 mg by mouth in the morning. REVIEW OF SYSTEMS Pertinent items are noted in HPI. Objective: BP 110/53 Pulse 71 Temp 36.2 C (97.2 F) (Temporal) Resp 20 Ht 1.524 m (5') SpO2 93% BMI 30.58 kg/m PHYSICAL EXAM General appearance: in no apparent distress, in no respiratory distress and acyanotic, alert, and cooperative Skin: warm and dry Pulmonary: Normal effort, no respiratory distress, no cyanosis, O2 via NC Extremities: no cyanosis, clubbing or edema, heel foams in place Bilateral buttocks: Dark pink, blanchable erythema. No open areas nor drainage noted. (Photo 04/08/24) LABS CBC: Lab Results Component Value Date WBC 8.9 04/10/2024 HGB 10.5 (L) 04/10/2024 HCT 32.0 (L) 04/10/2024 MCV 87.0 04/10/2024 PLT 429 04/10/2024 BMP: Lab Results Component Value Date NA 138 04/10/2024 K 3.7 04/10/2024 CL 111 (H) 04/10/2024 CO2 23 04/10/2024 BUN 8 (L) 04/10/2024 CREATININE 0.62 (L) 04/10/2024 PT/INR: No results found for: PROTIME, INR Prealbumin: No results found for: PREALBUMIN Albumin:No components found for: LABALBU Sed Rate:No results found for: SEDRATE Micro: No components found for: BC Assessment/Plan: Bilateral buttocks: MASD due to bodily fluids -Cleanse with soap and water, pat dry, apply ET mix and leave BUSINESS INTELLIGENCE ENGINEER TID and PRN -Turn and reposition [id number] -Incontinence checks [id number] Nutritional support Wound care to follow Recommend to follow up at [facility] Outpatient wound care center after hospital discharge. Thank you for the consult! I personally obtained the carrizales and critical portions of the history and physical exam. I reviewed the labs, imaging studies, and electronic medical record. I reviewed the chart documentation and discussed the patient with treatment team members. I have edited the note to reflect my clinical findings and my assessment and plan. Please note, the time of this note does not reflect the time I saw this patient today, but the time of this documentaton. Portions of this note including HPI, ROS, impression/plan, and examination may have been copied forward from admission to today as to provide important historical information essential in contributing to medical decision making. Documentation has been reviewed and edited as necessary to support clinical decision making for today's visit and to reflect my own independent evaluation of this patient. Decision making for today's visit and to reflect my own independent evaluation of this patient. Images from the original note were not included. Palliative Care Progress Note Chief Complaint: Doroteo Gong is a 83 y.o. male with chief complaint of altered mentation. Palliative Care is signing off, please re-consult if needed. (add SIGNOFFTRANSITION dotphrase below) Assessment/Plan UTI/obstructive uropathy - schwartz placed, seen by Urology today, note appreciated - per primary: ceftriaxone--to complete tomorrow, tamsulosin HX COPD - O2 2L - mgmt per primary: ipratropium nebs Risk for constipation/hx diarrhea - CT A/P with evidence of constipation - last BM 04/10/24 - per primary: polyethylene glycol, psyllium Debility - has resided at [facility] since March 2023--[facility] [place] Chronic back pain - prn tramadol with relief, would not adjust this medication as helpful Reduced appetite - tells me better since he is not at the [facility] - albumin marginally low at 2.6 - per documentation eating half of meals Palliative Care Encounter -DNRCCA-DNI - filled out [place] DNR form and placed on chart, also emailed copy to SIMBA Rodriguez, she had emailed me SIMBA paperwork, printed and placed on paper chart today - consulted for pain and goals of care - goals clear, without symptoms will sign off at this time - call to [employer] at [phone], provided updates, she received and printed the dnr form and has it with all her paperwork, aware upon dc will go to [facility], thankful for call and care Doroteo Gong has been seen in consultation by [facility] Palliative Care during their admission to [facility]. They currently have no uncontrolled symptoms and have established goals of care and we have signed off of their case. The patient has established follow-up with [facility] . Total of 30 minutes spent on this encounter including Chart review, Patient visit and exam, Documentation in EHR, Care coordination, Communicating with primary attending or other consultants, and Counseling and educating patient/family/caregiver. Discharge planning: Signing off, discharge disposition per primary team Patient meets criteria for general inpatient hospice care including the following: N/A - Palliative Care Patient Referrals to: none Discussed patient and the plan of care with the other interdisciplinary team (IDT) members of Palliative Care Team, and with Primary Attending, Patient, Family, and Floor Nurse Insert attestation statement here if applicable (.disupervision) or (.npattest) Subjective: Subjective/Events Since last seen: plan to complete abx. Appetite appears improved eating about half of meals, awake in bed in NAD, last BM 04/08/24 Doroteo Gong is a 83 y.o. male living at [facility] for 24 hour care and supervision, PMHx includes: chronic pain, GERD, COPD, HLD, kidney stones, BPH, RICKY, interstitial lung disease, HTN, frequent UTI, prior chronic schwartz removed in February, had been recommended for cystoscopy but refused. Brought to [facility] with abdominal pain. CT A/P 04/07/24: Impression: 1. Significant nonspecific irregular bladder wall thickening, trabeculation and several diverticula. Underlying obstructive uropathy or bladder wall malignancy not excluded. There is mild distal left hydroureter. Recommend consultation with urology to determine the need for biopsy. 2. Mild nonspecific prostate enlargement with some mass effect on the bladder more inferiorly. This could be a source of obstruction. 3. Multiple hepatic cysts. Some geographic hypodensity within the left hepatic lobe more centrally thought to likely represent focal fatty infiltration. 4. Mild gaseous distention of the large bowel with suggestion of constipation along the sigmoid colon and rectum. 5. Bilateral nonobstructing renal calculi with extrarenal pelvis large in size on the right. Loose calculi within the renal pelvis on the right are at risk for obstruction and measures up to 0.4 cm on the right. Admitted with IV abx, urology consult. Since seen by palliative care at [facility] we are consulted for pain and goals of care. Goals of care:Continue Current Management Functional Assessment: PPS: 40% Advance Directives: DNR-CCA Surrogate: SIMBA Prognosis: uncertain at this time Spiritual assessment: No spiritual distress identified Bereavement and grief: Grief Issues Not Identified Review of Systems ROS: See palliative care ROS/ESAS below; All other systems were reviewed and are negative. Arabi Symptom Assessment Score Arabi Score Pain Score 2 Tiredness Score 0 Nausea Score 0 Depression Score 0 Anxiety Score 0 Drowsiness Score 0 Anorexia Score (0= eating well, 10= not eating) 5 Wellbeing Score (10= worst sense of well-being) 0 Constipation 0 Dyspnea Score (0= no shortness of breath) 0 FLACC Scale (For Pain Assessment of the Non-Verbal Patient) Patient is verbal Assessed by: patient and provider. 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 Constitutional: Appearance: He is ill-appearing. HENT: Head: Normocephalic and atraumatic. Mouth/Throat: Mouth: Mucous membranes are moist. Eyes: General: Right eye: No discharge. Left eye: No discharge. Pulmonary: Effort: Pulmonary effort is normal. Genitourinary: Comments: Schwartz to gravity Neurological: Mental Status: He is confused. Psychiatric: Comments: No agitation Current Medications: Inpatient medications reviewed: yes Home medications reviewed: yes OARRS Reviewed: see initial consult 24 Hour PRN Meds: tylenol times 1, tramadol times 1 Results/Verification of Data Review Objective data reviewed (be specific which labs, imaging reports with dates reviewed): MAR/vitals/labs reviewed 04/10/24 Data in Support of Terminal Illness: Is patient hospice appropriate? No Hospitalist Progress Note 04/09/[phone]: Please page wa ([phone]) for patient care issues. [phone]: Please page [facility] Hospitalist for any issues. Subjective: Admit Date: 04/07/2024 PCP: Roopa Madera MD Room#: [id number] Jak Gong is a 83 y.o. male who presents with Urinary tract infection without hematuria, site unspecified Interval History: Pt was seen and examined at bedside No acute events overnight Pt reports diffuse joints pain and stomach pain sponsorship manager the pt for ECF with PT. OT skilled the pt for SNF MARTIAL ARTS INSTRUCTOR cleared the pt for Soft and bite-sized solids and Thin liquids and meds crushed in puree with precautions. - Ucx and BLCX are NGTD Case and plan discussed with patient and the assigned nurse. All questions answered. Adult diet Dysphagia - Soft and Bite Sized 24HR INTAKE/OUTPUT: Intake/Output Summary (Last 24 hours) at 04/09/2024 1734 Last data filed at 04/09/2024 1300 Gross per 24 hour Intake 420 ml Output 1200 ml Net -780 ml LABS: CBC: Recent Labs 04/07/24 0453 04/08/24 0109 04/09/24 1614 WBC 15.4* 20.0* 9.7 RBC 4.45 4.21* 3.72* HGB 12.9* 12.0* 10.6* HCT 37.5* 36.3* 32.4* MCV 84.3 86.2 87.1 RDW 13.6 14.1 14.4 PLT 552* 524* 447* BMP: Recent Labs 04/07/24 0453 04/08/24 0109 04/09/24 1614 NA 130* 133* 135* K 3.4* 3.8 3.2* CL 96* 100 107 CO2 23 26 22* BUN 25* 28* 12 CREATININE 0.78 0.88 0.67* GLUCOSE 93 91 108 CALCIUM 9.6 8.9 8.0* ANIONGAP 11 7 6 LIVER PROFILE: Recent Labs 04/07/24 0453 04/09/24 1614 AST 28 31 ALT 6 10 BILITOT 0.6 0.2 ALKPHOS 103 76 PROT 6.6 4.9* PT/INR: No results for input(s): PROTIME, INR in the last 72 hours. CARDIAC ENZYMES: No results for input(s): TROPONINI in the last 72 hours. Procalcitonin: No results found for: PROCAL @RISRSLTSPECIALTY@ Objective: Vitals: BP (!) 104/49 Pulse 67 Temp 36.4 C (97.6 F) (Temporal) Resp 16 Ht 5' (1.524 m) SpO2 94% BMI 30.58 kg/m Pulse Ox: SpO2 Av % Min: 94 % Max: 96 % Supplemental O2: O2 Flow Rate (L/min): 2 L/min 04/09/2024 General appearance: Appears in anxious and mild distress, appears stated age, AAOX3 Oral: Tongue is semi-moist Cardiovascular: S1/S2 heard, RRR Respiratory: Diminished breath sounds abdomen: Soft, obese, non-tender, non-distended bowel sounds positive Musculoskeletal: No obvious deformities seen, mild ankle edema Skin: No rash no lesions Medications: sodium chloride, 100 mL/hr, Last Rate: 100 mL/hr (04/09/24 0537) atorvastatin, 10 mg, Oral, Nightly cefTRIAXone, 1,000 mg, IntraVENous, q24h cetirizine, 5 mg, Oral, Daily cyanocobalamin, 1,000 mcg, Oral, Daily enoxaparin, 40 mg, SubCUTAneous, Daily finasteride, 5 mg, Oral, Daily fluticasone, 2 puff, Inhalation, BID [Held by provider] hydroCHLOROthiazide, 25 mg, Oral, q AM influenza, 0.5 mL, IntraMUSCular, Prior to discharge ipratropium, 2 spray, Each Nostril, 4x daily levothyroxine, 50 mcg, Oral, Daily Lidocaine, 1 patch, Topical, Daily melatonin, 3 mg, Oral, Nightly pantoprazole, 40 mg, Oral, qAM AC phenazopyridine, 100 mg, Oral, TID WC polyethylene glycol (PEG) 3350, 17 g, Oral, Daily psyllium, 3.4 g of fiber, Oral, Daily sertraline, 25 mg, Oral, q AM stomahesive in petrolatum, , Topical, TID tamsulosin, 0.4 mg, Oral, Daily PRN medications: acetaminophen OR acetaminophen, albuterol, artificial tears, methocarbamol, naloxone, ondansetron ODT OR ondansetron, polyethylene glycol (PEG) 3350, simethicone, stomahesive in petrolatum, traMADol Assessment Left hydroureter and bladder wall thickening with abdominal pain-previously declined cystoscopy, Schwartz catheter was replaced Benign prostatic hypertrophy-continue alfuzosin Bilateral nonobstructing renal calculi, Possible UTI-cover with ceftriaxone, await urine culture Hypokalemia Chronic problems Asthma-albuterol as needed GERD Hyperlipidemia-continue atorvastatin Sleep apnea, noncompliant with CPAP Anxiety-continue sertraline Hypothyroidism-continue levothyroxine Plan Reviewed CBC BMP and ordered CBC BMP in a.m. Robaxin prn Simethicone prn IV KCL Continue ceftriaxone and await urine cultures, patient will go home with Schwartz catheter and follow-up Patient's family does not want him to go back to [facility]. Instead they would like him to go to [facility], for which he needs 3 midnight stay -am labs, replace lytes prn -increase activity Diet Adult diet Dysphagia - Soft and Bite Sized DVT Prophylaxis [x] Lovenox, [] Heparin, [] SCDs, [] Ambulation [] Already on Anticoagulation GI Prophylaxis [x] PPI, [] H2 Nick, [] Carafate, [] Diet/Tube Feeds Code Status DNR-CCA Disposition Patient requires continued admission due to hematuria and left hydroureter MDM [] Low, [] Moderate,[x] High Patient's risk as above Total time spent (which include face to face and non face to face encounters) : 45 minutes Toxic drug monitoring/narrow therapeutic index drug monitoring : # Drug name : Ceftriaxone # Route administered : Intravenous # Method of monitoring : Daily labs Extended Emergency Contact Information Primary Emergency Contact: Solange Rodriguez Relation: Other Secondary Emergency Contact: Harshil Murguia Mobile Relation: Nephew Advance Directive: DNR-CCA Discharge planning: TBD Yissel Eason MD Division of Hospitalist Medicine Inpatient Medical Services/[facility] [place] \ Nutrition Assessment Type and Reason for Visit: Initial, Wound Nutrition Recommendations/Plan: Continue Soft and Bite Sized diet with meds crushed in Puree as recommended by MARTIAL ARTS INSTRUCTOR- Assist in room service participation, and encourage to order nutrient dense meals Per MNT Protocol, added Ensure TID with meals (+350 kcal, 20 g protein, 240 mL/serving) Please document all oral intake in EMR for most accurate nutrient intake assessment As able, please obtain weekly standing scale weights for most accurate anthropometric data and calculation of macronutrient and fluid needs RDN to continue to monitor weekly: fluid accumulation, weight, skin integrity, trends in lab values, tolerance of PO and ONS, changes in clinical status, discharge planning. Malnutrition Assessment: Malnutrition Status: Moderate malnutrition Context: Chronic Illness Findings of the 6 clinical characteristics of malnutrition: Energy Intake: 75% or less estimated energy requirements for 1 month or longer (predicted, per pallaitive care note poor PO x six weeks and relying on Ensure for primary source of nutrition) Weight Loss: Mild weight loss (specify amount and time period) (-13% over 1 year) Body Fat Loss: Severe body fat loss (observed) Orbital, Buccal region Muscle Mass Loss: Severe muscle mass loss (observed) Temples (temporalis), Clavicles (pectoralis & deltoids) Fluid Accumulation: Unable to assess Professor Of Visual Arts Strength: Not Performed Nutrition Assessment: 83 year old man with PMHx: UTIs, nephrolithiasis, GERD, chronic pain, HTN, interstitial lung disease, RICKY, COPD with asthma. Presented to [facility] ED via EMS from SNF with altered mental status and repeatedly pressing call light too many times . A+Ox4 for EMS, patient cites abdominal pain/discomfort. He was most recently on cefuroxime last week, and has been on Macrobid for two days for UTI. Significant labs on admit: Na+(130), K+(3.4), BUN(25), WBC(15.4), Hgb(12.9), Hct(37.5). Adbominal CT showed: irregular bladder wall thickening along with some obstructive uropathy- unable to exclude bladder wall malignancy and left hydroureter suggested gaseous distention of the large bowel suggestive of constipation and bilateral nonobstructing renal calculi . Urology consulted for obstructive uropathy- checked schwartz placement, felt not in the proper place as + purulent urine drainage after repositioning. Planning to discharge with schwartz. Palliative care consulted and following for GOC, requested DNR-CCA-DNI. Sleeping at time of assesment, did not wake. Bed scale weight obtained: 138.2#, unsure of UBW. MARTIAL ARTS INSTRUCTOR recommending Soft and Bite sized diet. Estimated Daily Nutrient Needs: Energy Requirements Based On: Kcal/kg Weight Used for Energy Requirements: [place] Weight for Energy Calculation (kg): 48 kg Total Energy Requirements (kcals/day): 4020-6256 (25-30 kcal/kg IBW) Weight Used for Protein Requirements: [place] Weight in Kg Used for Protein Requirements: 48 kg Estimated Total Protein (g/day): 48-72 (1.0-1.5 g protein/kg IBW) Estimated Daily Total Fluid (ml/day): per MD Nutrition Related Findings: A+Ox4. +MASD to buttocks, +bm 04/07 and 04/08. PO <50%. Meds: Lipitor, rocephin, synthroid, zoloft, B12, PPI, metamucil. Labs reviewed Wound Type: Moisture Associate Skin Damage (buttocks) Current Nutrition Therapies: Adult diet Dysphagia - Soft and Bite Sized Current Oral Intake Average Meal Intake: 26-50% Average Supplements Intake: None Ordered Anthropometric Measures: Height: 152.4 cm (5') Current Body Weight: 62.7 kg (138 lb 3.7 oz) Weight Source: Bed Scale Admission Body Weight: (NA) Usual Body Weight: 72.1 kg (159 lb) (per EMR 03/18/23) % Weight Change (Calculated): -13.1 [place] Body Weight (lbs) (Calculated): 106 lbs [place] Body Weight (Kg) (Calculated): 48 kg % [place] Body Weight (Calculated): 130.4 % BMI (kg/m2) (Calculated): 27 Weight Adjustment For: No Adjustment Nutrition Diagnosis: Moderate malnutrition, In context of chronic illness related to inadequate protein-energy intake as evidenced by poor intake prior to admission, moderate muscle loss related to as evidenced by Nutrition Interventions: Nutrition Education/Counseling: Education not indicated Coordination of Nutrition Care: Speech Therapy, Continue to monitor while inpatient Plan of Care discussed with: LEO Goals: Goals: PO intake 50% or greater Nutrition Monitoring and Evaluation: Behavioral-Environmental Outcomes: None Identified Food/Nutrient Intake Outcomes: Food and Nutrient Intake, Supplement Intake Physical Signs/Symptoms Outcomes: Biochemical Data, Chewing or Swallowing, GI Status, Nausea or Vomiting, Fluid Status or Edema, Weight, Skin, Hemodynamic Status, Meal Time Behavior, Nutrition Focused Physical Findings Discharge Planning: Continue current diet, Continue Oral Nutrition Supplement Teri Mar RDN, LDN, Contact: *[phone] Images from the original note were not included. Speech-Language Pathology SPEECH LANGUAGE PATHOLOGY [facility] Bedside Swallow Evaluation Patient Name: Doroteo Gong Evaluation Date: 04/09/2024 Date of : 1940 Admission Date: 04/07/2024 4:42 AM Age: 83 y.o. [facility]: [facility] IMPRESSION: S/s oropharyngeal dysphagia. No overt clinical s/s pulmonary compromise with PO. Risk factors for aspiration include lacking dentition, confusion, abdominal discomfort, patient reports of modified diet at baseline. RECOMMENDATION: Recommend Soft and bite-sized solids and Thin liquids and meds crushed in puree and the following precautions: - Upright positioning for all PO intake - Slow rate of intake - Small bites/sips - 1:1 Assistance Dysphagia NOMS: Level 5: Swallowing is safe with minimal diet restrictions and/or occasionally requires minimal cues to use compensatory strategies. The individual may occasionally self-cue. All nutrition and hydration needs are met by mouth. Pt would benefit from skilled acute [employer] services to address diet tolerance and to determine safest, least restrictive diet. Frequency: 3 days/wk for 2 weeks Barriers: Confusion and discomfort Prognosis: fair D/C Recommendations: to be determined Subjective Patient alert but confused and cooperative. Seen semi-upright in bed - patient would not allow ST to sit him up greater than ~45 degrees due to leg pain and abdominal discomfort. Answers all basic questions with clear, strong vocal quality. Follows some basic commands. No visitors at bedside. Spoke with BELINDA Patterson who cleared pt to be evaluated. Dysphagia History: No history of [employer] services in EMR with retrospective chart review Baseline Diet: Per patient, soft solids. Current Diet: Dietary Orders (From admission, onward) Start Ordered 04/07/24 1200 Adult diet Regular Diet effective now Question: Diet type Answer: Regular 04/07/24 1200 Tube Feeding: no Tracheostomy: no Recent Chest Xray/CT of Chest: XR chest 2 views 04/08/2024 Impression Limited examination. No consolidation. No large pleural effusion. Report Dictated on Electronically Signed By: Roger Cervantes MD Electronically Signed Date/Time: 04/08/2024 8:04 PM EST Oxygen: Oxygen Therapy: Supplemental oxygen O2 Delivery Method: Nasal cannula O2 Flow Rate (L/min): 2 L/min Past Medical History: Past Medical History: Diagnosis Date Arthritis knees hands Asthma Chronic pain GERD (gastroesophageal reflux disease) Hyperlipidemia Kidney stone 2012 Prostate disease Sleep apnea Thyroid disease Past Surgical History: Past Surgical History: Procedure Laterality Date APPENDECTOMY BACK SURGERY 2014 slipped disc CATARACT EXTRACTION CHOLECYSTECTOMY JOINT REPLACEMENT Right 2014 LITHOTRIPSY 3-4 times OTHER SURGICAL HISTORY hemorroid removed OTHER SURGICAL HISTORY Left 12/19/2017 stent placement, cystoscopy and pyelogram, Laser Lithotripsy SINUS SURGERY Admission Diagnosis: Patient Active Problem List Diagnosis Date Noted Urinary tract infection without hematuria, site unspecified 04/07/2024 Debility 02/14/2023 Declining functional status 02/14/2023 History of urinary retention 02/14/2023 At risk for delirium 02/14/2023 Polypharmacy 02/14/2023 Inability to walk 02/13/2023 Influenza A 03/21/2022 UTI (urinary tract infection) 02/23/2022 Fall, initial encounter 02/22/2022 Oropharyngeal dysphagia 04/25/2021 Hypoxia 11/04/2020 RICKY (obstructive sleep apnea) 11/04/2020 Class 2 obesity due to excess calories without serious comorbidity with body mass index (BMI) of 36.0 to 36.9 in adult 11/04/2020 Moderate persistent asthma without complication 11/04/2020 Shortness of breath 10/05/2020 Upper respiratory tract infection due to influenza A virus 06/23/2019 Acute asthma exacerbation 06/20/2019 Ureteral calculus 12/19/2017 Hypertrophy of prostate with urinary obstruction 08/02/2017 Renal calculi 09/28/2016 Hydronephrosis with ureteropelvic junction (UPJ) obstruction 09/28/2016 Flank pain 09/28/2016 History of Present Illness: Doroteo is a 83 y.o. male with past medical history below who presents with chief complaint listed above. Doroteo Gong is a 83 y.o. male with past medical history significant for UTIs, nephrolithiasis, GERD, chronic pain, pulmonary hypertension, interstitial lung disease, RICKY, COPD with asthma who presents to the emergency department per EMS with reported history of altered mental status. He arrived here from [facility], because he was pressing the call light too many times SNF reported the patient was confused, however patient was alert and oriented x 4 for EMS with stable vital signs He complained of abdominal discomfort since today morning which is diffuse and associated with nausea but no vomiting.. Denies any melena or hematochezia. He has had follow-ups with Dr. Ordonez from urology service and has been refusing cystoscopy. . He did have a CT scan of the abdomen today which showed irregular bladder wall thickening along with some obstructive uropathy with unable to exclude bladder wall malignancy and left hydroureter. CT also suggested gaseous distention of the large bowel suggestive of constipation and bilateral nonobstructing renal calculi. Hence the inpatient admission Has multiple UTIs in the past and had a Schwartz catheter which was removed couple of weeks ago. And he has refused cystoscopy for surveillance Denies chest pain, sob, , diarrhea, constipation, fevers, or chills. Will admit for further evaluation and management. Patient Complaint: Feels like he needs to have a bowel movement but is unable to. Pain: RN managing pain. 0-10 pain scale: 3/10 Location: leg, abdomen PPE Worn: gloves Objective Bedside swallow eval completed. Oral Motor Mechanism Adequate structure, strength, and ROM in lingual, labial, and buccal musculature. Timely volitional swallow. Edentulous at time of evaluation, however states he does have dentures. Oral Hygiene: moist, clean Swallowing Examination PO Trials - thin liquid, (cup edge, straw) - puree, (teaspoon) - soft and bite sized solids Oral Phase Patient presents with adequate oral receipt of each bolus. There is no anterior bolus loss. There is appropriate bolus containment for each tested texture in the oral cavity. Mastication appeared complete, organized, and prolonged. Oral transit time appears WFL. There is mild oral residue which clears with a liquid wash. Pharyngeal Phase Hyolaryngeal excursion clinically appears adequate and timely per palpation. 1-2 swallows palpated per bolus, likely indicative of adequate pharyngeal clearance. No overt clinical s/s airway penetration as evidenced by no cough, no throat clear, and no change in vocal quality. Education Education Given: safety, swallowing strategies, diet recommendations Given To: patient and RN Response: verbalizes understanding Goals Patient Stated Goal: To lay back down and to have a bowel movement soon. Encounter Problems Encounter Problems (Active) Swallowing Patient will tolerate the least restrictive diet consistency to allow for safe consumption of daily meals (Initiated) Start: 04/09/24 Expected End: 04/23/24 Patient will tolerate recommended food and liquid consistencies without clinical signs and symptoms of aspirations (Initiated) Start: 04/09/24 Expected End: 04/23/24 Therapy Time [employer] Individual Minutes Time In: 1104 Time Out: 1116 Minutes: 12 Aleisha Zurita CCC-[employer]STRUCTOR Images from the original note were not included. OCCUPATIONAL THERAPY [facility] Initial Evaluation Name/MRN: Doroteo Gong ([id number]) Evaluation Date: 04/09/2024 Date of : 1940 Admission Date: 04/07/2024 4:42 AM Age: 83 y.o. Room[facility]Bed: [facility] A Discharge Recommendation: Intermediate Facility Equipment Needed: No Assessment IMPRESSION: Pt in 04/07 with c/o confusion, abdominal discomfort, and UTI. Patient is a questionable historian this date however reports he was previously independent for functional transfer/mobility and ADL tasks. He is currently max to dependent for lower body ADLs, mod assist to min assist for upper body ADLs, and max assist for bed mobility this date. Patient unsafe to attempt transfers at this time secondary to poor static sitting balance. He is limited by increased fatigue, weakness, and confusion this date. He would benefit from skilled OT services to address the below. Recommend plan discharge for SNF at this time. Admitting Diagnosis: Confusion, abdominal discomfort, UTI Performance Deficits /Impairments: Decreased Functional Mobility, Decreased ADL status, Decreased Strength, Decreased Endurance, Decreased Balance, and Decreased High Level IADLs Prognosis: Fair Decision Making: Medium Complexity Subjective Cooperative with OT evaluation. Okay to see per RN. Agreeable to therapy evaluation Pain: Pt denies any current pain. Past Medical History: Past Medical History: Diagnosis Date Arthritis knees hands Asthma Chronic pain GERD (gastroesophageal reflux disease) Hyperlipidemia Kidney stone 2012 Prostate disease Sleep apnea Thyroid disease Past Surgical History: Past Surgical History: Procedure Laterality Date APPENDECTOMY BACK SURGERY 2013 slipped disc CATARACT EXTRACTION CHOLECYSTECTOMY JOINT REPLACEMENT Right 2014 LITHOTRIPSY 3-4 times OTHER SURGICAL HISTORY hemorroid removed OTHER SURGICAL HISTORY Left 12/19/2017 stent placement, cystoscopy and pyelogram, Laser Lithotripsy SINUS SURGERY Admission Diagnosis: Patient Active Problem List Diagnosis Date Noted Urinary tract infection without hematuria, site unspecified 04/07/2024 Debility 02/14/2023 Declining functional status 02/14/2023 History of urinary retention 02/14/2023 At risk for delirium 02/14/2023 Polypharmacy 02/14/2023 Inability to walk 02/13/2023 Influenza A 03/21/2022 UTI (urinary tract infection) 02/23/2022 Fall, initial encounter 02/22/2022 Oropharyngeal dysphagia 04/25/2021 Hypoxia 11/04/2020 RICKY (obstructive sleep apnea) 11/04/2020 Class 2 obesity due to excess calories without serious comorbidity with body mass index (BMI) of 36.0 to 36.9 in adult 11/04/2020 Moderate persistent asthma without complication 11/04/2020 Shortness of breath 10/05/2020 Upper respiratory tract infection due to influenza A virus 06/23/2019 Acute asthma exacerbation 06/20/2019 Ureteral calculus 12/19/2017 Hypertrophy of prostate with urinary obstruction 08/02/2017 Renal calculi 09/28/2016 Hydronephrosis with ureteropelvic junction (UPJ) obstruction 09/28/2016 Flank pain 09/28/2016 Medical Precautions: No active isolations Proper PPE donned/doffed in accordance with facility standards. Fall Risk: Villanueva Fall Risk Score: 75 (High Risk) Precautions/Restrictions: N/A Family/Caregiver Present: none Overall Cognitive Status: Exceptions - Following commands: follows one step commands with increased time and follows one step commands with repetition - Memory: decreased recall of recent events and decreased short term memory - Safety judgement: decreased awareness of need for assistance and decreased awareness of need for safety - Problem solving: assistance required to generate solutions, assistance required to implement solutions, assistance required to identify errors made, assistance required to correct errors made, and decreased awareness of errors - Insights: decreased awareness of deficits - Initiation: requires cues for some - Sequencing: requires cues for some Overall Orientation Status: Oriented to Place, Oriented to Time, and Oriented to Person Social/Functional History [facility] . Assistive Equipment: front wheeled walker Prior Level of Function Prior Level of ADL Function: Independent (pt questionable historian) per CM note, requires assist Prior Level of Mobility: Independent (pt questionable historian); Device: Front wheeled walker Prior Level of Transfers: Independent (pt questionable historian) Objective ADLs LE Dressing: Dependent UE Dressing: Mod Assist Patient limited by increased fatigue, weakness, instability, and poor static sitting balance at this time for dissipation ADL tasks. He requires dependent level assist to don bilateral socks both in sitting and in supine this date. No true loss of balance noted with static sitting balance however patient does demo heavy right sided lean during static sitting balance. Patient requires min to mod assist overall to maintain static balance. While in sitting at edge of bed RN providing trunk support while therapist assisting with upper body dressing requiring mod assist overall secondary to increased weakness and limited functional mobility of left upper extremity. Patient declined further ADLs at this time. Upper Extremity Assessment AROM: Exceptions: RUE grossly WFL this date, LUE < 90 shoulder flexion, WFL elbow flexion / extension PROM: Not assessed this session Strength: Exceptions: RUE grossly 4-/5, LUE 3+/5 within observed range. BUE gross corporate administrator strength 4/5 Vision: not assessed this session Hearing: appears WFL Bed Mobility Supine to sit: Max Assist Sit to supine: Max Assist Scooting: Max Assist Head of bed elevated. Denies dizziness with positional changes. Max assist overall for supine to sit and sit to supine mobility this date with increased assist for trunk control and bilateral lower extreme management at this time. Denies dizziness or positional changes. Once in sitting patient requires min to mod assist for static sitting balance with noted right sided lean throughout. Heavy reliance on bed rails this date to maintain upright sitting at edge of bed. Transfers/Functional Mobility Unsafe to attempt transfers this date secondary to poor static sitting balance and increased fatigue and weakness this date. Device(s) used: N/T AM-PAC AM-PAC Inpatient Daily Activity Raw Score: 11 ADL Inpatient CMS G-Code Modifier: CL Plan Pt would benefit from skilled acute OT services to address Strengthening, Balance Training, Self-Care/ADL Training, Functional Mobility Training, Endurance Training, Safety Education and Training, Pain Management, Equipment Evaluation/Education, and Patient/Caregiver Training. Frequency: 7 visits during current hospital admission or until additional recommendations are made Barriers: Impaired balance, Lower extremity weakness, Upper extremity weakness, Decreased endurance, Limited safety awareness, Confusion, Cognitive deficit, and Limited participation Safety/Education Safety Safety Devices in place: All fall risk precautions in place, call light within reach, left in bed, bed alarm in place, gait belt, patient at risk for falls, and nurse notified Restraints: No Education Education Given To: patient Education Provided: OT Role, Plan of Care, ADL Adaptive Strategies, Transfer Training, Equipment, Fall Prevention Education, Discharge Recommendations, and Benefits of Increasing Activity Education Method: Verbal, Demonstration, and Teach Back Barriers to Learning: Cognition Education Outcome: Continued Education Needed Goals Patient Stated Goal: none stated at this time. Encounter Problems Encounter Problems (Active) Dressing Upper Extremities Patient will complete upper body dressing SBA Start: 04/09/24 Expected End: 04/19/24 Dressings Lower Extremities Patient will dress lower body MIN A Start: 04/09/24 Expected End: 04/19/24 Mobility Patient will demonstrate functional mobility as appropraite with FWW and MOD A Start: 04/09/24 Expected End: 04/19/24 Toileting Patient will complete toileting tasks at bedside commode with mod assist. Start: 04/09/24 Expected End: 04/19/24 Transfers Patient will complete functional transfer with least restrictive device with mod assist in order to prepare for ambulation. Start: 04/09/24 Expected End: 04/19/24 Therapy Time Individual Co-Treatment Co-Evaluation Time In 0839 Time Out 0900 Minutes 21 Mike Lemon OT Patient's Occupational Therapy Plan of Care supervision is transferred to a [facility] Occupational Therapist. Goals and/or treatment plan was established in collaboration with patient/family/other representatives. Hospitalist Progress Note 04/08/[id number]: Please page me ([phone]) for patient care issues. [phone]: Please page [facility] Hospitalist for any issues. Subjective: Admit Date: 04/07/2024 PCP: Roopa Madera MD Room#: B4-461/B4-461 Jak Gong is a 83 y.o. male who presents with Urinary tract infection without hematuria, site unspecified Interval History: Sitting at bedside, awake alert oriented x 2 Complains of pain in the lower back from a pressure wound Denies chest pain, sob, abdominal pain, nausea, vomiting, diarrhea, constipation, fevers, or chills. Adult diet Regular 24HR INTAKE/OUTPUT: Intake/Output Summary (Last 24 hours) at 04/08/2024 1418 Last data filed at 04/08/2024 0845 Gross per 24 hour Intake 1183.33 ml Output -- Net 1183.33 ml LABS: CBC: Recent Labs 04/07/24 0453 04/08/24 0109 WBC 15.4* 20.0* RBC 4.45 4.21* HGB 12.9* 12.0* HCT 37.5* 36.3* MCV 84.3 86.2 RDW 13.6 14.1 PLT 552* 524* BMP: Recent Labs 04/07/24 0453 04/08/24 0109 NA 130* 133* K 3.4* 3.8 CL 96* 100 CO2 23 26 BUN 25* 28* CREATININE 0.78 0.88 GLUCOSE 93 91 CALCIUM 9.6 8.9 ANIONGAP 11 7 LIVER PROFILE: Recent Labs 04/07/24 0453 AST 28 ALT 6 BILITOT 0.6 ALKPHOS 103 PROT 6.6 PT/INR: No results for input(s): PROTIME, INR in the last 72 hours. CARDIAC ENZYMES: No results for input(s): TROPONINI in the last 72 hours. Procalcitonin: No results found for: PROCAL @RISRSLTSPECIALTY@ Objective: Vitals: BP (!) 91/48 (BP Location: Left arm, Patient Position: Lying) Pulse 74 Temp 36.4 C (97.6 F) (Temporal) Resp 16 SpO2 97% Pulse Ox: SpO2 Av.3 % Min: 96 % Max: 97 % Supplemental O2: O2 Flow Rate (L/min): 2 L/min 04/08/2024 General appearance: Appears in anxious and mild distress, appears stated age, AAOX3 Oral: Tongue is semi-moist Cardiovascular: S1/S2 heard, RRR Respiratory: Diminished breath sounds abdomen: Soft, obese, non-tender, non-distended bowel sounds positive Musculoskeletal: No obvious deformities seen, mild ankle edema Skin: No rash no lesions Medications: sodium chloride, 100 mL/hr, Last Rate: 100 mL/hr (04/08/24 1010) atorvastatin, 10 mg, Oral, Nightly cefTRIAXone, 1,000 mg, IntraVENous, q24h cetirizine, 5 mg, Oral, Daily cyanocobalamin, 1,000 mcg, Oral, Daily enoxaparin, 40 mg, SubCUTAneous, Daily finasteride, 5 mg, Oral, Daily fluticasone, 2 puff, Inhalation, BID [Held by provider] hydroCHLOROthiazide, 25 mg, Oral, q AM influenza, 0.5 mL, IntraMUSCular, Prior to discharge ipratropium, 2 spray, Each Nostril, 4x daily levothyroxine, 50 mcg, Oral, Daily Lidocaine, 1 patch, Topical, Daily melatonin, 3 mg, Oral, Nightly pantoprazole, 40 mg, Oral, qAM AC phenazopyridine, 100 mg, Oral, TID WC polyethylene glycol (PEG) 3350, 17 g, Oral, Daily psyllium, 3.4 g of fiber, Oral, Daily sertraline, 25 mg, Oral, q AM stomahesive in petrolatum, , Topical, TID tamsulosin, 0.4 mg, Oral, Daily PRN medications: acetaminophen OR acetaminophen, albuterol, artificial tears, naloxone, ondansetron ODT OR ondansetron, polyethylene glycol (PEG) 3350, stomahesive in petrolatum, traMADol Assessment Left hydroureter and bladder wall thickening with abdominal pain-previously declined cystoscopy, Schwartz catheter was replaced Benign prostatic hypertrophy-continue alfuzosin Bilateral nonobstructing renal calculi, Possible UTI-cover with ceftriaxone, await urine culture Chronic problems Asthma-albuterol as needed GERD Hyperlipidemia-continue atorvastatin Sleep apnea, noncompliant with CPAP Anxiety-continue sertraline Hypothyroidism-continue levothyroxine Plan Reviewed CBC BMP and ordered CBC BMP in a.m. Continue ceftriaxone and await urine cultures, patient will go home with Schwartz catheter and follow-up Patient's family does not want him to go back to [facility]. Instead they would like him to go to [facility], for which he needs 3 midnight stay -am labs, replace lytes prn -increase activity Diet Adult diet Regular DVT Prophylaxis [x] Lovenox, [] Heparin, [] SCDs, [] Ambulation [] Already on Anticoagulation GI Prophylaxis [x] PPI, [] H2 Nick, [] Carafate, [] Diet/Tube Feeds Code Status DNR-CCA Disposition Patient requires continued admission due to hematuria and left hydroureter MDM [] Low, [] Moderate,[x] High Patient's risk as above Total time spent (which include face to face and non face to face encounters) : minutes Toxic drug monitoring/narrow therapeutic index drug monitoring : # Drug name : Ceftriaxone # Route administered : Intravenous # Method of monitoring : Daily labs Extended Emergency Contact Information Primary Emergency Contact: Solange Rodriguez Relation: Other Secondary Emergency Contact: Harshil Murguia Mobile Relation: Nephew Advance Directive: DNR-CCA Discharge planning: TBD Ann-Marie Rodriguez MD Division of Hospitalist Medicine Inpatient Medical Services/[facility] [place] \ Images from the original note were not included. PHYSICAL THERAPY [facility] Initial Evaluation Name/MRN: Doroteo Gong ([id number]) Evaluation Date: 04/08/2024 Date of : 1940 Admission Date: 04/07/2024 4:42 AM Age: 83 y.o. Room/Bed: B4461/B4461 A Discharge Recommendation: ECF with PT Equipment Needed: No Assessment IMPRESSION: Pt is an 83 y.o. male admitted 04/07 with AMS. Found to have Left hydroureter and bladder wall thickening with abdominal pain. Pt questionable historian, reports he was independent with functional mobility with FWW however RN reports pt w/c bound. Pt is currently requiring max A x1 for bed mobility, CGA to min A for sitting balance. Pt is currently limited by weakness, fatigue and will benefit from acute skilled PT to address current deficits. Recommend return to ECF with PT. Admitting Diagnosis: admitted 04/07 with AMS. Found to have Left hydroureter and bladder wall thickening with abdominal pain Prognosis: fair Performance Deficits /Impairments: Increased Pain, Decreased Functional Mobility, Decreased Strength, Decreased Endurance, Decreased Balance, and Decreased ROM Decision Making: Medium Complexity Subjective Pt agreeable to therapy session Per RN okay for therapy Pain: pt reports central line pain does not rate Past Medical History: Past Medical History: Diagnosis Date Arthritis knees hands Asthma Chronic pain GERD (gastroesophageal reflux disease) Hyperlipidemia Kidney stone 2012 Prostate disease Sleep apnea Thyroid disease Past Surgical History: Past Surgical History: Procedure Laterality Date APPENDECTOMY BACK SURGERY 2014 slipped disc CATARACT EXTRACTION CHOLECYSTECTOMY JOINT REPLACEMENT Right 2014 LITHOTRIPSY 3-4 times OTHER SURGICAL HISTORY hemorroid removed OTHER SURGICAL HISTORY Left 12/19/2017 stent placement, cystoscopy and pyelogram, Laser Lithotripsy SINUS SURGERY Admission Diagnosis: Patient Active Problem List Diagnosis Date Noted Urinary tract infection without hematuria, site unspecified 04/07/2024 Debility 02/14/2023 Declining functional status 02/14/2023 History of urinary retention 02/14/2023 At risk for delirium 02/14/2023 Polypharmacy 02/14/2023 Inability to walk 02/13/2023 Influenza A 03/21/2022 UTI (urinary tract infection) 02/23/2022 Fall, initial encounter 02/22/2022 Oropharyngeal dysphagia 04/25/2021 Hypoxia 11/04/2020 RICKY (obstructive sleep apnea) 11/04/2020 Class 2 obesity due to excess calories without serious comorbidity with body mass index (BMI) of 36.0 to 36.9 in adult 11/04/2020 Moderate persistent asthma without complication 11/04/2020 Shortness of breath 10/05/2020 Upper respiratory tract infection due to influenza A virus 06/23/2019 Acute asthma exacerbation 06/20/2019 Ureteral calculus 12/19/2017 Hypertrophy of prostate with urinary obstruction 08/02/2017 Renal calculi 09/28/2016 Hydronephrosis with ureteropelvic junction (UPJ) obstruction 09/28/2016 Flank pain 09/28/2016 Medical Precautions: No active isolations Proper PPE donned/doffed in accordance with facility standards. Fall Risk: Villanueva Fall Risk Score: 75 (High Risk) Precautions/Restrictions: N/A Family/Caregiver Present: none Overall Cognitive Status: Exceptions - Following commands: follows one step commands with increased time and follows one step commands with repetition - Memory: decreased recall of recent events and decreased short term memory - Safety judgement: decreased awareness of need for assistance and decreased awareness of need for safety - Problem solving: assistance required to generate solutions, assistance required to implement solutions, assistance required to identify errors made, assistance required to correct errors made, and decreased awareness of errors - Insights: decreased awareness of deficits - Initiation: requires cues for some - Sequencing: requires cues for some Overall Orientation Status: Oriented to Place, Oriented to Time, and Oriented to Person Vision: not assessed this session Hearing: normal Social/Functional History [facility] . Assistive Equipment: front wheeled walker Prior Level of Function Prior Level of ADL Function: Other- per CM note, requires assist Prior Level of Mobility: Independent (however pt questionable historian); Device: Front wheeled walker Prior Level of Transfers: Independent (however, pt questionable historian) Objective Lower Extremity Assessment AROM: Exceptions: L knee flexion contracture noted Strength: Exceptions: decreased in BLE noted with functional mobility Bed Mobility: Supine to sit: Max Assist Sit to supine: Max Assist Pt completes supine->sit requiring max A x1 for trunk and BLE management. Cues provided for technique with limited carryover. Pt requires max A x1 for trunk and BLE management to return to supine. Transfers Unsafe to attempt-poor sitting tolerance Ambulation Did not assess this session. Balance During Session: Posture: fair Sitting - Static: SBA, Min Assist Pt sits EOB ~2 minutes requiring cues for upright posture and initial min A for lateral weightshift to midline. Pt able to progress to SBA however requests return to supine. Outcome Measures AM-PAC How much HELP from another person do you currently need Turning from your back to your side while in a flat bed without using bedrails?: A Lot Moving from lying on your back to sitting on the side of a flat bed without using bedrails?: A Lot Moving to and from a bed to a chair (including a wheelchair)?: Total Standing up from a chair using your arms (wheelchair or bedside chair)?: Total Walking in a hospital room?: Total Stair climbing assessed?: No AM-PAC Inpatient Mobility Raw Score (No Stairs) : 7 Plan Pt would benefit from skilled acute PT services to address Strengthening, ROM, Gait Training, Balance Training, Functional Mobility Training, Endurance Training, Safety Education and Training, Pain Management, Equipment Evaluation/Education, Patient/Caregiver Training, and Positioning. Frequency: 5 visits during current hospital admission or until additional recommendations are made Barriers: Pain, Impaired balance, Lower extremity weakness, Upper extremity weakness, Decreased endurance, and Limited participation Safety/Education Safety Safety Devices in place: All fall risk precautions in place, call light within reach, left in bed, bed alarm in place, patient at risk for falls, and nurse notified Restraints: N/A Education Education Given To: patient Education Provided: PT Role, PT Goals, Plan of Care, and Benefits of Increasing Activity Education Method: Verbal and Demonstration Barriers to Learning: Cognition Education Outcome: Verbalized Understanding and Continued Education Needed Goals Patient Stated Goal: Pt did not state Encounter Problems Encounter Problems (Active) Exercise Patient will complete lower extremity exercises for 1-2 sets / 5-10 reps in order to improve strength and activity tolerance for mobility. Start: 04/08/24 Expected End: 04/15/24 Mobility Patient will ambulate 5 feet with mod assist and rolling walker in order to improve safety and independence with mobility. Start: 04/08/24 Expected End: 04/15/24 Pain - Adult Transfers Patient will perform bed mobility with min A in order to improve independence and prepare for out of bed mobility. Start: 04/08/24 Expected End: 04/15/24 Patient will complete functional transfer with least restrictive device with mod assist in order to prepare for ambulation. Start: 04/08/24 Expected End: 04/15/24 Therapy Time Individual Co-Treatment Co-Evaluation Time In 1221 Time Out 1230 Minutes 9 Lolis Carballo PT Patient's Physical Therapy Plan of Care supervision is transferred to a [facility] Physical Therapist. Goals and/or treatment plan was established in collaboration with patient/family/other representatives. documented in this encounter [facility] 04-11-2024 Note Formatting of this n ote might be different from the original. Asked by [facility] to set transport to [facility]. The BLS Vehicle you requested for Doroteo Mora in unit/room [place] [id number] on 04/11/2024 is scheduled to arrive at 1:30pm EST! Jeff Kahn is handling this ride and you can contact them at . Pt, Alisha Narvaez, nurse, unit sec, TCC, and facility informed of time. [facility] 04-11-2024 Note Formatting of this n ote might be different from the original. Asked by [facility] to set transport to [facility]. The BLS Vehicle you requested for Doroteo Mora in unit/room [place] [id number] on 04/11/2024 is scheduled to arrive at 1:30pm EST! Jeff Kahn is handling this ride and you can contact them at . Pt, Alisha Narvaez, nurse, unit sec, TCC, and facility informed of time. [facility] 04-11-2024 Plan of care note Problem: Knowledge Deficit Goal: Patient/family/caregiver demonstrates understanding of disease process, treatment plan, medications, and discharge instructions Outcome: Progressing Problem: Potential for Compromised Skin Integrity Goal: Skin Integrity is Maintained or Improved Outcome: Progressing Goal: Nutritional status is improving Outcome: Progressing Problem: Urinary Incontinence Goal: Perineal skin integrity is maintained or improved Outcome: Progressing Problem: Pain - Adult Goal: Verbalizes/displays adequate comfort level or baseline comfort level Outcome: Progressing Problem: Safety - Adult Goal: Free from fall injury Outcome: Progressing Problem: Discharge Planning Goal: Discharge to home or other facility with appropriate resources Outcome: Progressing Problem: Chronic Conditions and Co-morbidities Goal: Patient's chronic conditions and co-morbidity symptoms are monitored and maintained or improved Outcome: Progressing Problem: Problem Interventions Goal: Dietary Supplements Outcome: Progressing Goal: Promote nutritional intake Outcome: Progressing [facility] 04-10-2024 Plan of care note Problem: Knowledge Deficit Goal: Patient/family/caregiver demonstrates understanding of disease process, treatment plan, medications, and discharge instructions Outcome: Progressing Problem: Potential for Compromised Skin Integrity Goal: Skin Integrity is Maintained or Improved Outcome: Progressing Goal: Nutritional status is improving Outcome: Progressing Problem: Urinary Incontinence Goal: Perineal skin integrity is maintained or improved Outcome: Progressing Problem: Pain - Adult Goal: Verbalizes/displays adequate comfort level or baseline comfort level Outcome: Progressing Problem: Safety - Adult Goal: Free from fall injury Outcome: Progressing Problem: Discharge Planning Goal: Discharge to home or other facility with appropriate resources Outcome: Progressing Problem: Chronic Conditions and Co-morbidities Goal: Patient's chronic conditions and co-morbidity symptoms are monitored and maintained or improved Outcome: Progressing Problem: Problem Interventions Goal: Dietary Supplements Outcome: Progressing Goal: Promote nutritional intake Outcome: Progressing [facility] 04-10-2024 Nurse Note Via secure chat, repeat urine culture is not needed. [facility] 04-10-2024 Hospital Discharge instructions Janee Roland RN - 04/10/2024 1:02 PM EST Images from the original note were not included. Continuity of Care Form Patient Name: Doroteo Gong : 1940 Admit date: 04/07/2024 Discharge date: 04/11/2024 Code Status Order: DNR-CCA Advance Directives: N Admitting Physician: Chelle Enrique DO PCP: Roopa Madera MD Discharging Nurse: Janee Discharging Hospital Unit/Room#: B4-461/B4-461 A Discharging Unit Phone Number: [phone] Emergency Contact: Extended Emergency Contact Information Primary Emergency Contact: Solange Rodriguez Relation: Other Secondary Emergency Contact: Harshil Murguia Mobile Relation: Nephew Past Surgical History: Past Surgical History: Procedure Laterality Date APPENDECTOMY BACK SURGERY 2014 slipped disc CATARACT EXTRACTION CHOLECYSTECTOMY JOINT REPLACEMENT Right 2014 LITHOTRIPSY 3-4 times OTHER SURGICAL HISTORY hemorroid removed OTHER SURGICAL HISTORY Left 12/19/2017 stent placement, cystoscopy and pyelogram, Laser Lithotripsy SINUS SURGERY Immunization History: Immunization History Administered Date(s) Administered Moderna SARS-CoV-2 Vaccination 05/13/2020, 06/10/2020, 04/12/2021, 11/07/2021 Active Problems: Medical Problems Problem List * (Principal) Urinary tract infection without hematuria, site unspecified Fall, initial encounter UTI (urinary tract infection) Influenza A Inability to walk Debility Declining functional status History of urinary retention At risk for delirium Polypharmacy Moderate malnutrition (CMS/HCC) (HCC) (Chronic) Renal calculi Hydronephrosis with ureteropelvic junction (UPJ) obstruction Flank pain Ureteral calculus Upper respiratory tract infection due to influenza A virus Acute asthma exacerbation Hypoxia Shortness of breath RICKY (obstructive sleep apnea) Class 2 obesity due to excess calories without serious comorbidity with body mass index (BMI) of 36.0 to 36.9 in adult Moderate persistent asthma without complication Oropharyngeal dysphagia Hypertrophy of prostate with urinary obstruction Overview Signed 01/29/2022 10:19 AM by Interface, Incoming Problems- [facility] Conversion Updating Deprecated Diagnoses Isolation/Infection: No active isolations No active infections Nurse Assessment: Last Vital Signs: BP 110/53 Pulse 71 Temp 36.2 C (97.2 F) (Temporal) Resp 20 Ht 1.524 m (5') SpO2 93% BMI 30.58 kg/m Last documented pain score (0-10 scale): Last Weight: Wt Readings from Last 1 Encounters: 03/05/23 71 kg (156 lb 9.6 oz) Mental Status: HARDEEP Patient Mental Status: oriented IV Access: HARDEEP IV Access: None Nursing Mobility/ADLs: Walking Total assistance Transfer Total assistance Bathing Total assistance Dressing Total assistance Toileting Total assistance Feeding Minimal assistance Dining Room Coordinator Minimal assistance Med Delivery yes Wound Care Documentation and Therapy: Wound/Incision 04/07/24 Pressure Injury Buttock Medial (Active) Site Assessment [place];Red 04/09/24 0800 Orly-Wound Assessment Intact 04/09/24 0800 Odor None 04/09/24 0800 Drainage Amount None 04/09/24 0800 Treatments Moisture barrier ointment 04/09/24 0800 Primary Dressing Open to air 04/09/24 1940 Number of days: 3 Elimination: Continence: Bowel: no Bladder: no Urinary Catheter: Insertion date: 04/07/24 Indication for use of catheter: Acute urinary retention/obstruction Colostomy/Ileostomy/Ileal Conduit: None Date of Last BM: 04/10/24 Intake/Output Summary (Last 24 hours) at 04/10/2024 1300 Last data filed at 04/10/2024 0627 Gross per 24 hour Intake 3106.67 ml Output 500 ml Net 2606.67 ml I/O last 3 completed shifts: In: 3286.7 [P.O.:300; I.V.:2936.7; IV Piggyback:50] Out: 1250 [Urine:1250] Safety Concerns: at risk for falls and aspiration risk Impairments/Disabilities: none Nutrition Therapy: Current Nutrition Therapy: Oral diet: dysphagia 2 mechanically altered Routes of Feeding: oral Liquids: thin liquids Daily Fluid Restriction: no Last Modified Barium Swallow with Video (Video Swallowing Test): not done Treatments at the Time of Hospital Discharge: Respiratory Treatments: PRN Oxygen Therapy: is on oxygen at 2 L/min per nasal cannula. Ventilator: No ventilator support Rehab Therapies: nursing and aide Weight Bearing Status/Restrictions: no restriction Other Medical Equipment (for information only, NOT a DME order): wheelchair Other Treatments: NA Patient's personal belongings (please select all that are sent with patient): clothes RN SIGNATURE: MANAGEMENT/SOCIAL WORK SECTION Inpatient Status Date: Discharging to Facility/ Agency Name: [facility] Address: [address] Fax: Dialysis Facility (if applicable) Name: Address: Dialysis Schedule: Phone: Fax: Senior Lead Developer/Social Sciences Lecturer signature: ICIAN SECTION Name: Doroteo Gong Prognosis: good Condition at Discharge: stable Rehab Potential (if transferring to Rehab): good Recommended Labs or Other Treatments After Discharge: CMP CBC The individual is being admitted to a nursing facility directly from an [facility] or a unit of a [facility] that is not operated by or licensed by [facility] under section 5119.14 or 5160-3-15.1 5 The individual requires the level of services provided by a nursing facility for the condition for which he or she was treated in the hospital and, Physician Certification: I certify the above information and transfer of Doroteo Gong is necessary for the continuing treatment of the diagnosis listed and that he requires [facility] facility for less than 30 days. Update Admission H&P: No change in H&P PHYSICIAN SIGNATURE: documented in this encounter [facility] 04-10-2024 Note Hospitalist Progress Note 04/10/2024 [phone]: Please page me ([phone]) for patient care issues. [phone]: Please page [facility] night Hospitalist for any issues. Subjective: Admit Date: 04/07/2024 PCP: Roopa Madera MD Room#: O0-461/S7-465 Jak Gong is a 83 y.o. male who presents with Urinary tract infection without hematuria, site unspecified Interval History: Pt was seen and examined at bedside No acute events overnight Pt feels better today and reports that his stomach discomfort is mild this AM Pt remains HDS, afebrile, satting well on 2L NC - BLCX are NGT[employer] sponsorship manager the pt for ECF with PT. OT skilled the pt for SNF MARTIAL ARTS INSTRUCTOR cleared the pt for Soft and bite-sized solids and Thin liquids and meds crushed in puree with precautions. Case and plan discussed with patient and the assigned nurse. All questions answered. Adult diet Dysphagia - Soft and Bite Sized 24HR INTAKE/OUTPUT: Intake/Output Summary (Last 24 hours) at 04/10/2024 1238 Last data filed at 04/10/2024 0627 Gross per 24 hour Intake 3226.67 ml Output 850 ml Net 2376.67 ml LABS: CBC: Recent Labs 04/08/24 0109 04/09/24 1614 04/10/24 0644 WBC 20.0* 9.7 8.9 RBC 4.21* 3.72* 3.68* HGB 12.0* 10.6* 10.5* HCT 36.3* 32.4* 32.0* MCV 86.2 87.1 87.0 RDW 14.1 14.4 14.6 PLT 524* 447* 429 BMP: Recent Labs 04/08/24 01004/09/24 1614 04/10/24 0644 NA 133* 135* 138 K 3.8 3.2* 3.7 CL 100 107 111* CO2 26 22* 23 BUN 28* 12 8* CREATININE 0.88 0.67* 0.62* GLUCOSE 91 108 96 CALCIUM 8.9 8.0* 7.9* ANIONGAP 7 6 4 LIVER PROFILE: Recent Labs 04/09/24 1614 04/10/24 0644 AST 31 31 ALT 10 10 BILITOT 0.2 0.2 ALKPHOS 76 65 PROT 4.9* 4.5* PT/INR: No results for input(s): PROTIME, INR in the last 72 hours. CARDIAC ENZYMES: No results for input(s): TROPONINI in the last 72 hours. Procalcitonin: No results found for: PROCAL @RISRSLTSPECIALTY@ Objective: Vitals: BP 110/53 Pulse 71 Temp 36.2 ?C (97.2 ?F) (Temporal) Resp 20 Ht 5' (1.524 m) SpO2 93% BMI 30.58 kg/m? Pulse Ox: SpO2 Av.5 % Min: 93 % Max: 96 % Supplemental O2: O2 Flow Rate (L/min): 2 L/min 04/10/2024 General appearance: Appears in anxious and mild distress, appears stated age, AAOX3 Oral: Tongue is semi-moist Cardiovascular: S1/S2 heard, RRR Respiratory: Diminished breath sounds abdomen: Soft, obese, non-tender, non-distended bowel sounds positive Musculoskeletal: No obvious deformities seen, mild ankle edema Skin: No rash no lesions Medications: sodium chloride, 100 mL/hr, Last Rate: 100 mL/hr (04/10/24 0559) atorvastatin, 10 mg, Oral, Nightly cefTRIAXone, 1,000 mg, IntraVENous, q24h cetirizine, 5 mg, Oral, Daily cyanocobalamin, 1,000 mcg, Oral, Daily enoxaparin, 40 mg, SubCUTAneous, Daily finasteride, 5 mg, Oral, Daily fluticasone, 2 puff, Inhalation, BID [Held by provider] hydroCHLOROthiazide, 25 mg, Oral, q AM influenza, 0.5 mL, IntraMUSCular, Prior to discharge ipratropium, 2 spray, Each Nostril, 4x daily levothyroxine, 50 mcg, Oral, Daily Lidocaine, 1 patch, Topical, Daily melatonin, 3 mg, Oral, Nightly pantoprazole, 40 mg, Oral, qAM AC phenazopyridine, 100 mg, Oral, TID WC polyethylene glycol (PEG) 3350, 17 g, Oral, Daily psyllium, 3.4 g of fiber, Oral, Daily sertraline, 25 mg, Oral, q AM stomahesive in petrolatum, , Topical, TID tamsulosin, 0.4 mg, Oral, Daily PRN medications: acetaminophen OR acetaminophen, albuterol, artificial tears, methocarbamol, naloxone, ondansetron ODT OR ondansetron, polyethylene glycol (PEG) 3350, simethicone, stomahesive in petrolatum, traMADol Assessment Left hydroureter and bladder wall thickening with abdominal pain-previously declined cystoscopy, Schwartz catheter was replaced Benign prostatic hypertrophy-continue alfuzosin Bilateral nonobstructing renal calculi, Possible UTI-cover with ceftriaxone, await urine culture Hypokalemia Chronic problems Asthma-albuterol as needed GERD Hyperlipidemia-continue atorvastatin Sleep apnea, noncompliant with CPAP Anxiety-continue sertraline Hypothyroidism-continue levothyroxine Obesity (BMI 30 - 39) Moderate malnutrition Plan Reviewed CBC BMP and ordered CBC BMP in a.m. Continue ceftriaxone (one more dose needed, it ends on 04/11) Will check with the facility if the pt could go there with PIV while still need one more dose of IV Abx Continue Robaxin prn & Simethicone prn Patient's family does not want him to go back to [facility]. Instead they would like him to go to [facility], for which he needs 3 midnight stay -am labs, replace lytes prn -increase activity Diet Adult diet Dysphagia - Soft and Bite Sized DVT Prophylaxis [x] Lovenox, [] Heparin, [] SCDs, [] Ambulation [] Already on Anticoagulation GI Prophylaxis [x] PPI, [] H2 Nick, [] Carafate, [] Diet/Tube Feeds Code Status DNR-CCA Disposition Patient require (more content not included)... [facility] 04-10-2024 Note [facility] Wound Care Progress Note Doroteo Gong AGE: 83 y.o. GENDER: male : 1940 Subjective: HISTORY of PRESENT ILLNESS HPI Doroteo Gong is a 83 y.o. male who presents for a wound care follow up. HPI: Patient presented to the emergency department on 04/07 per EMS with reported history of altered mental status. Per EMS and the patient, he was sent to the emergency department because he was pressing his call light too many times at the SNF. SNF reported the patient was confused, however patient was alert and oriented x 4 for EMS with stable vital signs. Upon obtaining further history, patient states he was on his call light because he could not get comfortable and was trying to get the nurse. Reports he has been having abdominal pain since this morning. Pain is diffuse and associated with nausea but no vomiting. Urology consult pending. Patient resting in bed at time of visit. Treatment applied. Denies further needs. PAST MEDICAL HISTORY Active Ambulatory Problems Diagnosis Date Noted Renal calculi 09/28/2016 Hydronephrosis with ureteropelvic junction (UPJ) obstruction 09/28/2016 Flank pain 09/28/2016 Ureteral calculus 12/19/2017 Upper respiratory tract infection due to influenza A virus 06/23/2019 Acute asthma exacerbation 06/20/2019 Hypoxia 11/04/2020 Shortness of breath 10/05/2020 RICKY (obstructive sleep apnea) 11/04/2020 Class 2 obesity due to excess calories without serious comorbidity with body mass index (BMI) of 36.0 to 36.9 in adult 11/04/2020 Moderate persistent asthma without complication 11/04/2020 Oropharyngeal dysphagia 04/25/2021 Hypertrophy of prostate with urinary obstruction 08/02/2017 Fall, initial encounter 02/22/2022 UTI (urinary tract infection) 02/23/2022 Influenza A 03/21/2022 Inability to walk 02/13/2023 Debility 02/14/2023 Declining functional status 02/14/2023 History of urinary retention 02/14/2023 At risk for delirium 02/14/2023 Polypharmacy 02/14/2023 Resolved Ambulatory Problems Diagnosis Date Noted No Resolved Ambulatory Problems Past Medical History: Diagnosis Date Arthritis Asthma Chronic pain GERD (gastroesophageal reflux disease) Hyperlipidemia Kidney stone 2012 Prostate disease Sleep apnea Thyroid disease PAST SURGICAL HISTORY Past Surgical History: Procedure Laterality Date APPENDECTOMY BACK SURGERY 2014 slipped disc CATARACT EXTRACTION CHOLECYSTECTOMY JOINT REPLACEMENT Right 2014 LITHOTRIPSY 3-4 times OTHER SURGICAL HISTORY hemorroid removed OTHER SURGICAL HISTORY Left 12/19/2017 stent placement, cystoscopy and pyelogram, Laser Lithotripsy SINUS SURGERY FAMILY HISTORY Family History Problem Relation Name Age of Onset Heart failure Mother Diabetes Mother SOCIAL HISTORY Social History Tobacco Use Smoking status: Never Smokeless tobacco: Never Vaping Use Vaping status: Never Used Substance Use Topics Alcohol use: No Drug use: No ALLERGIES Allergies Allergen Reactions Allopurinol Unknown Erythromycin Unknown Penicillins Unknown Patient tolerates cephalosporins Sulfa Antibiotics Unknown Pt does not know reaction Tetracyclines & Related Unknown Levofloxacin Other jittery Omeprazole Ciprofloxacin Unknown Paroxetine Other Fatigue MEDICATIONS No current facility-administered medications on file prior to encounter. Current Outpatient Medications on File Prior to Encounter Medication Sig Dispense Refill atorvastatin (Lipitor) 10 MG tablet Take 10 mg by mouth Nightly. acetaminophen (Tylenol) 325 MG tablet Take 650 mg by mouth. albuterol 108 (90 Base) MCG/ACT inhaler Inhale 2 puffs every 6 hours as needed. alfuzosin ER (Uroxatral) 10 MG 24 hr tablet Take 1 tablet (10 mg) by mouth daily. 90 tablet 3 cyanocobalamin ([employer] Vitamin B-12) 1000 MCG tablet Take 1,000 mcg by mouth. Diclofenac Sodium (Voltaren) 1 % gel Apply topically daily. ergocalciferol (Vitamin D-2) 1.25 MG (08316 UT) capsule Take 1.25 mg by mouth daily. finasteride (Proscar) 5 MG tablet Take 1 tablet (5 mg) by mouth daily. 90 tablet 3 fluticasone (Flovent) 110 MCG/ACT inhaler Inhale 2 puffs in the morning and 2 puffs before bedtime. hydroCHLOROthiazide (HYDRODiuril) 25 MG tablet Take 25 mg by mouth every morning. ipratropium (Atrovent) 0.06 % nasal spray Administer 2 sprays into affected nostril(s). levothyroxine (Synthroid, Levoxyl) 50 MCG tablet Take 50 mcg by mouth in the morning. Lidocaine 4 % patch Place 1 patch on the skin 2 times daily. Removed at bed time loratadine (Claritin) 10 MG tablet Take 10 mg by mouth daily. magnesium hydroxide (Milk of Magnesia) 800 MG/5ML suspension Take by mouth Daily as needed for constipation. Melatonin 3-10 MG tablet Take 3 mg by mouth Nightly. nitrofurantoin, macrocrystal-monohydrate, (Macrobid) 100 MG capsule Take 100 mg by mouth every 12 hours. omeprazole (Veronique (more content not included)... [facility] 04-10-2024 Note Palliative Care Prog ress Note Chief Complaint: Doroteo Gong is a 83 y.o. male with chief complaint of altered mentation. Palliative Care is signing off, please re-consult if needed. (add SIGNOFFTRANSITION dotphrase below) Assessment/Plan UTI/obstructive uropathy - schwartz placed, seen by Urology today, note appreciated - per primary: ceftriaxone--to complete tomorrow, tamsulosin HX COPD - O2 2L - mgmt per primary: ipratropium nebs Risk for constipation/hx diarrhea - CT A/P with evidence of constipation - last BM 04/10/24 - per primary: polyethylene glycol, psyllium Debility - has resided at [facility] since March 2023--[facility] [place] Chronic back pain - prn tramadol with relief, would not adjust this medication as helpful Reduced appetite - tells me better since he is not at the [facility] - albumin marginally low at 2.6 - per documentation eating half of meals Palliative Care Encounter -DNRCCA-DNI - filled out [place] DNR form and placed on chart, also emailed copy to SIMBA Rodriguez, she had emailed me SIMBA paperwork, printed and placed on paper chart today - consulted for pain and goals of care - goals clear, without symptoms will sign off at this time - call to Solange at [phone], provided updates, she received and printed the dnr form and has it with all her paperwork, aware upon dc [facility], thankful for call and care Doroteo K Beltran has been seen in consultation by [facility]iative [facility] during their admission to [facility]. They currently have no uncontrolled symptoms and have established goals of care and we have signed off of their case. The patient has established follow-up with [facility] . Total of 30 minutes spent on this encounter including Chart review, Patient visit and exam, Documentation in EHR, Care coordination, Communicating with primary attending or other consultants, and Counseling and educating patient/family/caregiver. Discharge planning: Signing off, discharge disposition per primary team Patient meets criteria for general inpatient hospice care including the following: N/A - Palliative Care Patient Referrals to: none Discussed patient and the plan of care with the other interdisciplinary team (IDT) members of Palliative Care Team, and with Primary Attending, Patient, Family, and Floor Nurse Insert attestation statement here if applicable (.disupervision) or (.npattest) Subjective: Subjective/Events Since last seen: plan to complete abx. Appetite appears improved eating about half of meals, awake in bed in NAD, last BM 04/08/24 Doroteo Gong is a 83 y.o. male living at [facility] for 24 hour care and supervision, PMHx includes: chronic pain, GERD, COPD, HLD, kidney stones, BPH, RICKY, interstitial lung disease, HTN, frequent UTI, prior chronic schwartz removed in February, had been recommended for cystoscopy but refused. Brought to [facility] with abdominal pain. CT A/P 04/07/24: Impression: 1. Significant nonspecific irregular bladder wall thickening, trabeculation and several diverticula. Underlying obstructive uropathy or bladder wall malignancy not excluded. There is mild distal left hydroureter. Recommend consultation with urology to determine the need for biopsy. 2. Mild nonspecific prostate enlargement with some mass effect on the bladder more inferiorly. This could be a source of obstruction. 3. Multiple hepatic cysts. Some geographic hypodensity within the left hepatic lobe more centrally thought to likely represent focal fatty infiltration. 4. Mild gaseous distention of the large bowel with suggestion of constipation along the sigmoid colon and rectum. 5. Bilateral nonobstructing renal calculi with extrarenal pelvis large in size on the right. Loose calculi within the renal pelvis on the right are at risk for obstruction and measures up to 0.4 cm on the right. Admitted with IV abx, urology consult. Since seen by palliative care at [facility] we are consulted for pain and goals of care. Goals of care:Continue Current Management Functional Assessment: PPS: 40% Advance Directives: DNR-CCA Surrogate: HCPOA Prognosis: uncertain at this time Spiritual assessment: No spiritual distress identified Bereavement and grief: Grief Issues Not Identified Review of Systems ROS: See palliative care ROS/ESAS below; All other systems were reviewed and are negative. Arabi Symptom Assessment Score Arabi Score Pain Score 2 Tiredness Score 0 Nausea Score 0 Depression Score 0 Anxiety Score 0 Drowsiness Score 0 Anorexia Score (0= eating well, 10= not eating) 5 Wellbeing Score (10= worst sense of well-being) 0 Constipation 0 Dyspnea Score (0= no shortness of breath) 0 FLACC Scale (For Pain Assessment of the Non-Verbal Patient) Patient is verbal Assessed by: patient and provider. Social history: [place] status: yes- (more content not included)... [facility] 04-09-2024 Note Hospitalist Progress Note 04/09/2024 [phone]: Please page me ([phone]) for patient care issues. [phone]: Please page [facility] Hospitalist for any issues. Subjective: Admit Date: 04/07/2024 PCP: Roopa Madera MD Room#: [id number] Jak Gong is a 83 y.o. male who presents with Urinary tract infection without hematuria, site unspecified Interval History: Pt was seen and examined at bedside No acute events overnight Pt reports diffuse joints pain and stomach pain sponsorship manager the pt for ECF with PT. OT skilled the pt for SNF [employer] IN[employer] cleared the pt for Soft and bite-sized solids and Thin liquids and meds crushed in puree with precautions. - Ucx and BLCX are NGTD Case and plan discussed with patient and the assigned nurse. All questions answered. Adult diet Dysphagia - Soft and Bite Sized 24HR INTAKE/OUTPUT: Intake/Output Summary (Last 24 hours) at 04/09/2024 1734 Last data filed at 04/09/2024 1300 Gross per 24 hour Intake 420 ml Output 1200 ml Net -780 ml LABS: CBC: Recent Labs 04/07/24 0453 04/08/24 0109 04/09/24 1614 WBC 15.4* 20.0* 9.7 RBC 4.45 4.21* 3.72* HGB 12.9* 12.0* 10.6* HCT 37.5* 36.3* 32.4* MCV 84.3 86.2 87.1 RDW 13.6 14.1 14.4 PLT 552* 524* 447* BMP: Recent Labs 04/07/24 0453 04/08/24 0109 04/09/24 1614 NA 130* 133* 135* K 3.4* 3.8 3.2* CL 96* 100 107 CO2 23 26 22* BUN 25* 28* 12 CREATININE 0.78 0.88 0.67* GLUCOSE 93 91 108 CALCIUM 9.6 8.9 8.0* ANIONGAP 11 7 6 LIVER PROFILE: Recent Labs 04/07/24 0453 04/09/24 1614 AST 28 31 ALT 6 10 BILITOT 0.6 0.2 ALKPHOS 103 76 PROT 6.6 4.9* PT/INR: No results for input(s): PROTIME, INR in the last 72 hours. CARDIAC ENZYMES: No results for input(s): TROPONINI in the last 72 hours. Procalcitonin: No results found for: PROCAL @RISRSLTSPECIALTY@ Objective: Vitals: BP (!) 104/49 Pulse 67 Temp 36.4 ?C (97.6 ?F) (Temporal) Resp 16 Ht 5' (1.524 m) SpO2 94% BMI 30.58 kg/m? Pulse Ox: SpO2 Av % Min: 94 % Max: 96 % Supplemental O2: O2 Flow Rate (L/min): 2 L/min 04/09/2024 General appearance: Appears in anxious and mild distress, appears stated age, AAOX3 Oral: Tongue is semi-moist Cardiovascular: S1/S2 heard, RRR Respiratory: Diminished breath sounds abdomen: Soft, obese, non-tender, non-distended bowel sounds positive Musculoskeletal: No obvious deformities seen, mild ankle edema Skin: No rash no lesions Medications: sodium chloride, 100 mL/hr, Last Rate: 100 mL/hr (04/09/24 0537) atorvastatin, 10 mg, Oral, Nightly cefTRIAXone, 1,000 mg, IntraVENous, q24h cetirizine, 5 mg, Oral, Daily cyanocobalamin, 1,000 mcg, Oral, Daily enoxaparin, 40 mg, SubCUTAneous, Daily finasteride, 5 mg, Oral, Daily fluticasone, 2 puff, Inhalation, BID [Held by provider] hydroCHLOROthiazide, 25 mg, Oral, q AM influenza, 0.5 mL, IntraMUSCular, Prior to discharge ipratropium, 2 spray, Each Nostril, 4x daily levothyroxine, 50 mcg, Oral, Daily Lidocaine, 1 patch, Topical, Daily melatonin, 3 mg, Oral, Nightly pantoprazole, 40 mg, Oral, qAM AC phenazopyridine, 100 mg, Oral, TID WC polyethylene glycol (PEG) 3350, 17 g, Oral, Daily psyllium, 3.4 g of fiber, Oral, Daily sertraline, 25 mg, Oral, q AM stomahesive in petrolatum, , Topical, TID tamsulosin, 0.4 mg, Oral, Daily PRN medications: acetaminophen OR acetaminophen, albuterol, artificial tears, methocarbamol, naloxone, ondansetron ODT OR ondansetron, polyethylene glycol (PEG) 3350, simethicone, stomahesive in petrolatum, traMADol Assessment Left hydroureter and bladder wall thickening with abdominal pain-previously declined cystoscopy, Schwartz catheter was replaced Benign prostatic hypertrophy-continue alfuzosin Bilateral nonobstructing renal calculi, Possible UTI-cover with ceftriaxone, await urine culture Hypokalemia Chronic problems Asthma-albuterol as needed GERD Hyperlipidemia-continue atorvastatin Sleep apnea, noncompliant with CPAP Anxiety-continue sertraline Hypothyroidism-continue levothyroxine Plan Reviewed CBC BMP and ordered CBC BMP in a.m. Robaxin prn Simethicone prn IV KCL Continue ceftriaxone and await urine cultures, patient will go home with Schwartz catheter and follow-up Patient's family does not want him to go back to [facility]. Instead they would like him to go to [facility], for which he needs 3 midnight stay -am labs, replace lytes prn -increase activity Diet Adult diet Dysphagia - Soft and Bite Sized DVT Prophylaxis [x] Lovenox, [] Heparin, [] SCDs, [] Ambulation [] Already on Anticoagulation GI Prophylaxis [x] PPI, [] H2 Nick, [] Carafate, [] Diet/Tube Feeds Code Status DNR-CCA Disposition Patient requires continued admission due to hematuria and left hydroureter MDM [] Low, [] Moderate,[x] High Patient's risk as above Total time spent (which include face to face and non face to fa (more content not included)... [facility] 04-09-2024 Note OCCUPATIONAL THERAPY [facility] Initial Evaluation Name/MRN: Doroteo Gong ([id number]) Evaluation Date: 04/09/2024 Date of : 1940 Admission Date: 04/07/2024 4:42 AM Age: 83 y.o. Room/Bed: B4461/B4461 A Discharge Recommendation: Intermediate Facility Equipment Needed: No Assessment IMPRESSION: Pt in 04/07 with c/o confusion, abdominal discomfort, and UTI. Patient is a questionable historian this date however reports he was previously independent for functional transfer/mobility and ADL tasks. He is currently max to dependent for lower body ADLs, mod assist to min assist for upper body ADLs, and max assist for bed mobility this date. Patient unsafe to attempt transfers at this time secondary to poor static sitting balance. He is limited by increased fatigue, weakness, and confusion this date. He would benefit from skilled OT services to address the below. Recommend plan discharge for SNF at this time. Admitting Diagnosis: Confusion, abdominal discomfort, UTI Performance Deficits /Impairments: Decreased Functional Mobility, Decreased ADL status, Decreased Strength, Decreased Endurance, Decreased Balance, and Decreased High Level IADLs Prognosis: Fair Decision Making: Medium Complexity Subjective Cooperative with OT evaluation. Okay to see per RN. Agreeable to therapy evaluation Pain: Pt denies any current pain. Past Medical History: Past Medical History: Diagnosis Date Arthritis knees hands Asthma Chronic pain GERD (gastroesophageal reflux disease) Hyperlipidemia Kidney stone 2012 Prostate disease Sleep apnea Thyroid disease Past Surgical History: Past Surgical History: Procedure Laterality Date APPENDECTOMY BACK SURGERY 2014 slipped disc CATARACT EXTRACTION CHOLECYSTECTOMY JOINT REPLACEMENT Right 2013 LITHOTRIPSY 3-4 times OTHER SURGICAL HISTORY hemorroid removed OTHER SURGICAL HISTORY Left 12/19/2017 stent placement, cystoscopy and pyelogram, Laser Lithotripsy SINUS SURGERY Admission Diagnosis: Patient Active Problem List Diagnosis Date Noted Urinary tract infection without hematuria, site unspecified 04/07/2024 Debility 02/14/2023 Declining functional status 02/14/2023 History of urinary retention 02/14/2023 At risk for delirium 02/14/2023 Polypharmacy 02/14/2023 Inability to walk 02/13/2023 Influenza A 03/21/2022 UTI (urinary tract infection) 02/23/2022 Fall, initial encounter 02/22/2022 Oropharyngeal dysphagia 04/25/2021 Hypoxia 11/04/2020 RICKY (obstructive sleep apnea) 11/04/2020 Class 2 obesity due to excess calories without serious comorbidity with body mass index (BMI) of 36.0 to 36.9 in adult 11/04/2020 Moderate persistent asthma without complication 11/04/2020 Shortness of breath 10/05/2020 Upper respiratory tract infection due to influenza A virus 06/23/2019 Acute asthma exacerbation 06/20/2019 Ureteral calculus 12/19/2017 Hypertrophy of prostate with urinary obstruction 08/02/2017 Renal calculi 09/28/2016 Hydronephrosis with ureteropelvic junction (UPJ) obstruction 09/28/2016 Flank pain 09/28/2016 Medical Precautions: No active isolations Proper PPE donned/doffed in accordance with facility standards. Fall Risk: Villanueva Fall Risk Score: 75 (High Risk) Precautions/Restrictions: N/A Family/Caregiver Present: none Overall Cognitive Status: Exceptions - Following commands: follows one step commands with increased time and follows one step commands with repetition - Memory: decreased recall of recent events and decreased short term memory - Safety judgement: decreased awareness of need for assistance and decreased awareness of need for safety - Problem solving: assistance required to generate solutions, assistance required to implement solutions, assistance required to identify errors made, assistance required to correct errors made, and decreased awareness of errors - Insights: decreased awareness of deficits - Initiation: requires cues for some - Sequencing: requires cues for some Overall Orientation Status: Oriented to Place, Oriented to Time, and Oriented to Person Social/Functional History [facility] from [facility] . Assistive Equipment: front wheeled walker Prior Level of Function Prior Level of ADL Function: Independent (pt questionable historian) per CM note, requires assist Prior Level of Mobility: Independent (pt questionable historian); Device: Front wheeled walker Prior Level of Transfers: Independent (pt questionable historian) Objective ADLs LE Dressing: Dependent UE Dressing: Mod Assist Patient limited by increased fatigue, weakness, instability, and poor static sitting balance at this time for dissipation ADL tasks. He requires dependent level assist to don bilateral socks both in sitting and in supine this date. No true loss of balance noted with static sitting balance however patient does demo heavy right sided lean during (more content not included)... [facility] 04-08-2024 Note Formatting of this n ote might be different from the original. Received a message from Rene VACA that pt's family would like for him to go to [facility] rather than return to [facility]. Referral sent, [facility] is able to accept. Does not need auth, does need 3MN inpatient stay. TCC will continue to follow. [facility] 04-08-2024 Note Formatting of this n ote might be different from the original. Received a message from Rene VACA that pt's family would like for him to go to [facility] rather than return to [facility]. Referral sent, [facility] is able to accept. Does not need auth, does need 3MN inpatient stay. TCC will continue to follow. [facility] 04-08-2024 Note Hospitalist Progress Note 04/08/2024 [phone]: Please page wa ([phone]) for patient care issues. [phone]: Please page [facility] Hospitalist for any issues. Subjective: Admit Date: 04/07/2024 PCP: Roopa Madera MD Room#: [facility] Jak Gong is a 83 y.o. male who presents with Urinary tract infection without hematuria, site unspecified Interval History: Sitting at bedside, awake alert oriented x 2 Complains of pain in the lower back from a pressure wound Denies chest pain, sob, abdominal pain, nausea, vomiting, diarrhea, constipation, fevers, or chills. Adult diet Regular 24HR INTAKE/OUTPUT: Intake/Output Summary (Last 24 hours) at 04/08/2024 1418 Last data filed at 04/08/2024 0845 Gross per 24 hour Intake 1183.33 ml Output -- Net 1183.33 ml LABS: CBC: Recent Labs 04/07/24 0453 04/08/24 0109 WBC 15.4* 20.0* RBC 4.45 4.21* HGB 12.9* 12.0* HCT 37.5* 36.3* MCV 84.3 86.2 RDW 13.6 14.1 PLT 552* 524* BMP: Recent Labs 04/07/24 0453 04/08/24 0109 NA 130* 133* K 3.4* 3.8 CL 96* 100 CO2 23 26 BUN 25* 28* CREATININE 0.78 0.88 GLUCOSE 93 91 CALCIUM 9.6 8.9 ANIONGAP 11 7 LIVER PROFILE: Recent Labs 04/07/24 0453 AST 28 ALT 6 BILITOT 0.6 ALKPHOS 103 PROT 6.6 PT/INR: No results for input(s): PROTIME, INR in the last 72 hours. CARDIAC ENZYMES: No results for input(s): TROPONINI in the last 72 hours. Procalcitonin: No results found for: PROCAL @RISRSLTSPECIALTY@ Objective: Vitals: BP (!) 91/48 (BP Location: Left arm, Patient Position: Lying) Pulse 74 Temp 36.4 ?C (97.6 ?F) (Temporal) Resp 16 SpO2 97% Pulse Ox: SpO2 Av.3 % Min: 96 % Max: 97 % Supplemental O2: O2 Flow Rate (L/min): 2 L/min 04/08/2024 General appearance: Appears in anxious and mild distress, appears stated age, AAOX3 Oral: Tongue is semi-moist Cardiovascular: S1/S2 heard, RRR Respiratory: Diminished breath sounds abdomen: Soft, obese, non-tender, non-distended bowel sounds positive Musculoskeletal: No obvious deformities seen, mild ankle edema Skin: No rash no lesions Medications: sodium chloride, 100 mL/hr, Last Rate: 100 mL/hr (04/08/24 1010) atorvastatin, 10 mg, Oral, Nightly cefTRIAXone, 1,000 mg, IntraVENous, q24h cetirizine, 5 mg, Oral, Daily cyanocobalamin, 1,000 mcg, Oral, Daily enoxaparin, 40 mg, SubCUTAneous, Daily finasteride, 5 mg, Oral, Daily fluticasone, 2 puff, Inhalation, BID [Held by provider] hydroCHLOROthiazide, 25 mg, Oral, q AM influenza, 0.5 mL, IntraMUSCular, Prior to discharge ipratropium, 2 spray, Each Nostril, 4x daily levothyroxine, 50 mcg, Oral, Daily Lidocaine, 1 patch, Topical, Daily melatonin, 3 mg, Oral, Nightly pantoprazole, 40 mg, Oral, qAM AC phenazopyridine, 100 mg, Oral, TID WC polyethylene glycol (PEG) 3350, 17 g, Oral, Daily psyllium, 3.4 g of fiber, Oral, Daily sertraline, 25 mg, Oral, q AM stomahesive in petrolatum, , Topical, TID tamsulosin, 0.4 mg, Oral, Daily PRN medications: acetaminophen OR acetaminophen, albuterol, artificial tears, naloxone, ondansetron ODT OR ondansetron, polyethylene glycol (PEG) 3350, stomahesive in petrolatum, traMADol Assessment Left hydroureter and bladder wall thickening with abdominal pain-previously declined cystoscopy, Schwartz catheter was replaced Benign prostatic hypertrophy-continue alfuzosin Bilateral nonobstructing renal calculi, Possible UTI-cover with ceftriaxone, await urine culture Chronic problems Asthma-albuterol as needed GERD Hyperlipidemia-continue atorvastatin Sleep apnea, noncompliant with CPAP Anxiety-continue sertraline Hypothyroidism-continue levothyroxine Plan Reviewed CBC BMP and ordered CBC BMP in a.m. Continue ceftriaxone and await urine cultures, patient will go home with Schwartz catheter and follow-up Patient's family does not want him to go back to [facility]. Instead they would like him to go to [facility], for which he needs 3 midnight stay -am labs, replace lytes prn -increase activity Diet Adult diet Regular DVT Prophylaxis [x] Lovenox, [] Heparin, [] SCDs, [] Ambulation [] Already on Anticoagulation GI Prophylaxis [x] PPI, [] H2 Nick, [] Carafate, [] Diet/Tube Feeds Code Status DNR-CCA Disposition Patient requires continued admission due to hematuria and left hydroureter MDM [] Low, [] Moderate,[x] High Patient's risk as above Total time spent (which include face to face and non face to face encounters) : minutes Toxic drug monitoring/narrow therapeutic index drug monitoring : # Drug name : Ceftriaxone # Route administered : Intravenous # Method of monitoring : Daily labs Extended Emergency Contact Information Primary Emergency Contact: Solange Rodriguez Relation: Other Secondary Emergency Contact: DestinHarshil Mobile Relation: Nephew Advance Directive: DNR-CCA Discha (more content not included)... [facility] 04-08-2024 Note Formatting of this n ote might be different from the original. Referral placed to [facility] via [facility] per [facility] request. Await review and response regarding ability to accept. TCC notified. [facility] 04-08-2024 Note Formatting of this n ote might be different from the original. Referral placed to [facility] via [facility] per [facility] request. Await review and response regarding ability to accept. TCC notified. [facility] 04-08-2024 Note Referral placed to [facility] via [facility] per [facility] request. Await review and response regarding ability to accept. TCC notified. [facility] 04-08-2024 Note PHYSICAL THERAPY [facility] Initial Evaluation Name/MRN: Doroteo Gong ([id number]) Evaluation Date: 04/08/2024 Date of : 1940 Admission Date: 04/07/2024 4:42 AM Age: 83 y.o. Room/Bed: [facility] A Discharge Recommendation: ECF with PT Equipment Needed: No Assessment IMPRESSION: Pt is an 83 y.o. male admitted 04/07 with AMS. Found to have Left hydroureter and bladder wall thickening with abdominal pain. Pt questionable historian, reports he was independent with functional mobility with FWW however RN reports pt w/c bound. Pt is currently requiring max A x1 for bed mobility, CGA to min A for sitting balance. Pt is currently limited by weakness, fatigue and will benefit from acute skilled PT to address current deficits. Recommend return to ECF with PT. Admitting Diagnosis: admitted 04/07 with AMS. Found to have Left hydroureter and bladder wall thickening with abdominal pain Prognosis: fair Performance Deficits /Impairments: Increased Pain, Decreased Functional Mobility, Decreased Strength, Decreased Endurance, Decreased Balance, and Decreased ROM Decision Making: Medium Complexity Subjective Pt agreeable to therapy session Per RN okay for therapy Pain: pt reports central line pain does not rate Past Medical History: Past Medical History: Diagnosis Date Arthritis knees hands Asthma Chronic pain GERD (gastroesophageal reflux disease) Hyperlipidemia Kidney stone 2012 Prostate disease Sleep apnea Thyroid disease Past Surgical History: Past Surgical History: Procedure Laterality Date APPENDECTOMY BACK SURGERY 2013 slipped disc CATARACT EXTRACTION CHOLECYSTECTOMY JOINT REPLACEMENT Right 2014 LITHOTRIPSY 3-4 times OTHER SURGICAL HISTORY hemorroid removed OTHER SURGICAL HISTORY Left 12/19/2017 stent placement, cystoscopy and pyelogram, Laser Lithotripsy SINUS SURGERY Admission Diagnosis: Patient Active Problem List Diagnosis Date Noted Urinary tract infection without hematuria, site unspecified 04/07/2024 Debility 02/14/2023 Declining functional status 02/14/2023 History of urinary retention 02/14/2023 At risk for delirium 02/14/2023 Polypharmacy 02/14/2023 Inability to walk 02/13/2023 Influenza A 03/21/2022 UTI (urinary tract infection) 02/23/2022 Fall, initial encounter 02/22/2022 Oropharyngeal dysphagia 04/25/2021 Hypoxia 11/04/2020 RICKY (obstructive sleep apnea) 11/04/2020 Class 2 obesity due to excess calories without serious comorbidity with body mass index (BMI) of 36.0 to 36.9 in adult 11/04/2020 Moderate persistent asthma without complication 11/04/2020 Shortness of breath 10/05/2020 Upper respiratory tract infection due to influenza A virus 06/23/2019 Acute asthma exacerbation 06/20/2019 Ureteral calculus 12/19/2017 Hypertrophy of prostate with urinary obstruction 08/02/2017 Renal calculi 09/28/2016 Hydronephrosis with ureteropelvic junction (UPJ) obstruction 09/28/2016 Flank pain 09/28/2016 Medical Precautions: No active isolations Proper PPE donned/doffed in accordance with facility standards. Fall Risk: Villanueva Fall Risk Score: 75 (High Risk) Precautions/Restrictions: N/A Family/Caregiver Present: none Overall Cognitive Status: Exceptions - Following commands: follows one step commands with increased time and follows one step commands with repetition - Memory: decreased recall of recent events and decreased short term memory - Safety judgement: decreased awareness of need for assistance and decreased awareness of need for safety - Problem solving: assistance required to generate solutions, assistance required to implement solutions, assistance required to identify errors made, assistance required to correct errors made, and decreased awareness of errors - Insights: decreased awareness of deficits - Initiation: requires cues for some - Sequencing: requires cues for some Overall Orientation Status: Oriented to Place, Oriented to Time, and Oriented to Person Vision: not assessed this session Hearing: normal Social/Functional History Patient admitted from [facility] . Assistive Equipment: front wheeled walker Prior Level of Function Prior Level of ADL Function: Other- per CM note, requires assist Prior Level of Mobility: Independent (however pt questionable historian); Device: Front wheeled walker Prior Level of Transfers: Independent (however, pt questionable historian) Objective Lower Extremity Assessment AROM: Exceptions: L knee flexion contracture noted Strength: Exceptions: decreased in BLE noted with functional mobility Bed Mobility: Supine to sit: Max Assist Sit to supine: Max Assist Pt completes supine->sit requiring max A x1 for trunk and BLE management. Cues provided for technique with limited carryover. Pt requires max A x1 for trunk and BLE management to return to supine. Transfers Unsafe to attempt-poor sitting tolerance Ambulation (more content not included)... [facility] 04-08-2024 Note Formatting of this n ote might be different from the original. Family Communication Number Called: [phone] Name of Designated Family School Social Worker: Harshil Murguia nephew I spoke with the individual listed above Family School Social Worker Updated on the Following: medical updates, confirms Solange is HCPOA, they do not want him to return to , but at [place] go to [facility] for care. Agrees with DNRCCA-DNI. At facility he had CP, was treated for covid/pna 6 weeks ago, continues with congestion, worried if needs treated for this as well, aware I will update primary team. Asked me to call Solange and provided her number will add to contacts Family Communication Number Called: [phone] Name of Designated Family School Social Worker: Solange Cousin/HCPOA I spoke with the individual listed above Family School Social Worker Updated on the Following: medical updates, confirms Solange is HCPOA she will email me this and I told her I would print and place on chart, they do not want him to return to [facility], but at dc go to [facility] for care. Agrees with DNRCCA-DNI. At facility he had CP, was treated for covid/pna 6 weeks ago, continues with congestion, worried if needs treated for this as well, aware I will update primary team. He has had diarrhea for weeks, had only been taking in ensure at facility it sounds like per Doroteo. Thankful for call and care [facility] 04-08-2024 Note Formatting of this n ote might be different from the original. Family Communication Number Called: [phone] Name of Designated Family School Social Worker: Harshil Murguia nephew I spoke with the individual listed above Family School Social Worker Updated on the Following: medical updates, confirms Solange is HCPOA, they do not want him to return to , but at [place] go to [facility] for care. Agrees with DNRCCA-DNI. At facility he had CP, was treated for covid/pna 6 weeks ago, continues with congestion, worried if needs treated for this as well, aware I will update primary team. Asked me to call Solange and provided her number will add to contacts Family Communication Number Called: [phone] Name of Designated Family School Social Worker: Solange Cousin/HCPOA I spoke with the individual listed above Family School Social Worker Updated on the Following: medical updates, confirms Solange is HCPOA she will email me this and I told her I would print and place on chart, they do not want him to return to [facility], but at [place] go to [facility] for care. Agrees with DNRCCA-DNI. At facility he had CP, was treated for covid/pna 6 weeks ago, continues with congestion, worried if needs treated for this as well, aware I will update primary team. He has had diarrhea for weeks, had only been taking in ensure at facility it sounds like per Doroteo. Thankful for call and care [facility] 04-08-2024 Note Family Communication Number Called: [phone] Name of Designated Family School Social Worker: Harshil Murguia nephew I spoke with the individual listed above Family School Social Worker Updated on the Following: medical updates, confirms Solange is HCPOA, they do not want him to return to , but [place] [facility]. Agrees with DNRCCA-DNI. At facility he had CP, was treated for covid/pna 6 weeks ago, continues with congestion, worried if needs treated for this as well, aware I will update primary team. Asked me to call Solange and provided her number will add to contacts Family Communication Number Called: [phone] Name of Designated Family School Social Worker: Solange Cousin/HCPOA I spoke with the individual listed above Family School Social Worker Updated on the Following: medical updates, confirms Solange is HCPOA she will email me this and I told her I would print and place on chart, they do not want him to return to , but [facility] [place] [facility]. Agrees with DNRCCA-DNI. At facility he had CP, was treated for covid/pna 6 weeks ago, continues with congestion, worried if needs treated for this as well, aware I will update primary team. He has had diarrhea for weeks, had only been taking in ensure at facility it sounds like per Doroteo. Thankful for call and care [facility] 04-08-2024 Note Formatting of this n ote might be different from the original. IA completed with pt at [facility]. From [facility]/ECF. Has cane, WW, and handicapped accessible bathroom. Facility assists with ADLs and IADLs. 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 Awaiting answer from SNF. TCC will continue to follow. The time of this note does not reflect the actual time patient was seen and assessed but instead the time of this documentation. [facility] 04-08-2024 Note Formatting of this n ote might be different from the original. IA completed with pt at . From [facility]. Has cane, WW, and handicapped accessible bathroom. Facility assists with ADLs and IADLs. 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 Awaiting answer from SNF. TCC will continue to follow. The time of this note does not reflect the actual time patient was seen and assessed but instead the time of this documentation. [facility] 04-08-2024 Note Formatting of this n ote might be different from the original. Referral placed to return back to [facility] via [facility] per TCC request. Await review and response regarding ability to accept. TCC notified. [facility] 04-08-2024 Note Formatting of this n ote might be different from the original. Referral placed to return back to [facility] via [facility] per TCC request. Await review and response regarding ability to accept. TCC notified. [facility] 04-08-2024 Note Referral placed to r eturn back to [facility] via [facility] per TCC request. Await review and response regarding ability to accept. TCC notified. [facility] 04-08-2024 Telephone encounter Note PT phone # doesn't work. [phone] Pt admitted to [facility] currently. Called pt at hospital in his room. Got new phone # [phone] Scheduled for follow up 04/28/24 @ 130pm with Emory Jacome Sending letter with appt information to patient [facility] 04-08-2024 Miscellaneous Notes PT phone # doesn't work. [phone] Pt admitted to [facility] currently. Called pt at hospital in his room. Got new phone # [phone] Scheduled for follow up 04/28/24 @ 130pm with Emory Jacome Sending letter with appt information to patient Patient was seen on consultation at [facility] on 04/08/2024 He is known to the practice, last seen by Dr. Ordonez approximately 1 month ago At that time catheter had been removed He presented with incomplete emptying, acute cystitis, hydronephrosis He will be discharged home with a catheter Please schedule follow-up visit with KEREN or Dr. Ordonez, routine follow-up can be in several weeks documented in this encounter [facility] 04-08-2024 Consult note Associated Order (s): IP CONSULT TO PALLIATIVE CARE Images from the original note were not included. Palliative Care Initial Consult Chief Complaint: Doroteo Gong is a 83 y.o. male with chief complaint of altered mentation. Palliative Care will follow peripherally, please contact on-call provider for urgent needs Assessment/Plan UTI/obstructive uropathy - schwartz placed, seen by Urology today, note appreciated - per primary: ceftriaxone, tamsulosin HX COPD - O2 2L - mgmt per primary: ipratropium nebs Risk for constipation/hx diarrhea - CT A/P with evidence of constipation - had 2 BM overnight - per primary: polyethylene glycol, psyllium Debility - has resided at [facility] since March 2023 Chronic back pain - prn tramadol with relief, would not adjust this medication as helpful Reduced appetite - tells me better since he is not [facility] - albumin marginally low at 2.6 - ate quarter of breakfast today Palliative Care Encounter -full code - consulted for pain and goals of care - Introduced the palliative care service to the patient and/or family. Discussed that we see patients with serious illnesses. Our role is to assist with pain and symptom management and to support the patient and family to promote quality of life. We at times also assist in discussions regarding goals of care and clinical decisions. - tells me he is okay with current medical care, aware treating UTI, does repeat himself, when discussed code status, tells me he would not want chest compressions, defibrillation, intubation or life support and if that happens to make sure he is comfortable and not in any pain. Discussed what DNRCCA-DNI, okay for ICU means here at [facility], agrees with this. Will place order in epic. Asked if he and Harshil talked about that, tells me Harshil doesn't want to talk about that aware I will call him today, thankful - only family is nephew Harshil and cousin Solange - no family at bedside, call to Harshil Murguia at [phone], did not answer times 2, voice mail box is full and cannot accept any more messages - will continue to follow for ongoing monitoring of progression of Anorexia - will continue to evaluate test results related to uti , medication effectiveness for Anorexia, response to treatment of uti -follow peripherally until get in touch with nephew, known to our service at [facility], upon dc if returns there our team can follow there as well, no true need to follow here once I talk with family Total of 60 minutes spent on this encounter including Chart review, Patient visit and exam, Documentation in EHR, Care coordination, Communicating with primary attending or other consultants, Electronic cut order hand of medications, tests or procedures, and Counseling and educating patient/family/caregiver. Discharge planning: Ready for discharge from Palliative Care perspective, outpatient/home/ECF follow-up arranged Patient meets criteria for general inpatient hospice care including the following: N/A - Palliative Care Patient Referrals to: known to ECF palliative care Discussed patient and the plan of care with the other interdisciplinary team (IDT) members of Palliative Care Team, and with Primary Attending, Patient, and Floor Nurse Insert attestation statement here if applicable (.disupervision) or (.npattest) Subjective: Hospital days prior to consult: 0 Trauma Consult: no. (If yes, please add .joyce chang for tracking purposes.) Subjective/Events Doroteo Gong is a 83 y.o. male living at [facility] for 24 hour care and supervision, PMHx includes: chronic pain, GERD, COPD, HLD, kidney stones, BPH, RICKY, interstitial lung disease, HTN, frequent UTI, prior chronic schwartz removed in February, had been recommended for cystoscopy but refused. Brought to [facility] with abdominal pain. CT A/P 04/07/24: Impression: 1. Significant nonspecific irregular bladder wall thickening, trabeculation and several diverticula. Underlying obstructive uropathy or bladder wall malignancy not excluded. There is mild distal left hydroureter. Recommend consultation with urology to determine the need for biopsy. 2. Mild nonspecific prostate enlargement with some mass effect on the bladder more inferiorly. This could be a source of obstruction. 3. Multiple hepatic cysts. Some geographic hypodensity within the left hepatic lobe more centrally thought to likely represent focal fatty infiltration. 4. Mild gaseous distention of the large bowel with suggestion of constipation along the sigmoid colon and rectum. 5. Bilateral nonobstructing renal calculi with extrarenal pelvis large in size on the right. Loose calculi within the renal pelvis on the right are at risk for obstruction and measures up to 0.4 cm on the right. Admitted with IV abx, urology consult. Since seen by palliative care at [facility] we are consulted for pain and goals of care. Patient awake in bed in NAD, did have back pain and L shoulder pain that is improved post tramadol given this morning, no CP, abdominal pain, did have bladder cramping but subsided since schwartz repositioning, breathing easy, no nausea, vomiting, had 2 BM overnight. Pain Assessment (If Pain Scale >0) Description: aching and dull Nonverbal patients: none Duration: year(s) Frequency:Daily--intermittent Location: back, L shoulder Alleviating Factors: pain medication Exacerbating Factors: unable to associate with any factor Effect:Change in Function, Interference with Activities, and Mood Goals of care:Continue Current Management Functional Assessment: PPS: 30% Advance Directives: DNR-CCA Surrogate: Extended Family Prognosis: uncertain at this time Spiritual assessment: No spiritual distress identified Bereavement and grief: Grief Issues Not Identified Past Medical History: Diagnosis Date Arthritis knees hands Asthma Chronic pain GERD (gastroesophageal reflux disease) Hyperlipidemia Kidney stone 2013 Prostate disease Sleep apnea Thyroid disease Past Surgical History: Procedure Laterality Date APPENDECTOMY BACK SURGERY 2014 slipped disc CATARACT EXTRACTION CHOLECYSTECTOMY JOINT REPLACEMENT Right 2014 LITHOTRIPSY 3-4 times OTHER SURGICAL HISTORY hemorroid removed OTHER SURGICAL HISTORY Left 12/19/2017 stent placement, cystoscopy and pyelogram, Laser Lithotripsy SINUS SURGERY Family History Problem Relation Name Age of Onset Heart failure Mother Diabetes Mother Unable to obtain family history due to N/A- family history available Allergies Allergen Reactions Allopurinol Unknown Erythromycin Unknown Penicillins Unknown Patient tolerates cephalosporins Sulfa Antibiotics Unknown Pt does not know reaction Tetracyclines & Related Unknown Levofloxacin Other jittery Omeprazole Ciprofloxacin Unknown Paroxetine Other Fatigue Review of Systems ROS: See palliative care ROS/ESAS below; All other systems were reviewed and are negative. Arabi Symptom Assessment Score Arabi Score Pain Score 2 Tiredness Score 0 Nausea Score 0 Depression Score 0 Anxiety Score 0 Drowsiness Score 0 Anorexia Score (0= eating well, 10= not eating) 5 Wellbeing Score (10= worst sense of well-being) 0 Constipation 0 Dyspnea Score (0= no shortness of breath) 1 FLACC Scale (For Pain Assessment of the Non-Verbal Patient) Patient is verbal Assessed by: patient and provider. 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 Constitutional: Appearance: He is ill-appearing. HENT: Head: Normocephalic and atraumatic. Nose: Nose normal. Mouth/Throat: Mouth: Mucous membranes are moist. Eyes: General: Right eye: No discharge. Left eye: No discharge. Pupils: Pupils are equal, round, and reactive to light. Cardiovascular: Rate and Rhythm: Normal rate and regular rhythm. Pulses: Normal pulses. Heart sounds: Normal heart sounds. No murmur heard. Comments: No edema B post tib/dorsalis pedis palpable Pulmonary: Effort: Pulmonary effort is normal. Breath sounds: Normal breath sounds. Abdominal: General: Bowel sounds are normal. There is no distension. Palpations: Abdomen is soft. There is no mass. Genitourinary: Comments: Schwartz to gravity Musculoskeletal: Cervical back: Normal range of motion and neck supple. Right lower leg: No edema. Left lower leg: No edema. Skin: General: Skin is warm and dry. Comments: fragile Neurological: General: No focal deficit present. Mental Status: He is alert and oriented to person, place, and time. Comments: Makes confused statement at times Psychiatric: Mood and Affect: Mood normal. Behavior: Behavior normal. Behavior is cooperative. Comments: No agitation Current Medications: Inpatient medications reviewed: yes Home medications reviewed: yes OARRS Reviewed: Yes-tramadol 24 Hour PRN Meds: tramadol times 2 Results/Verification of Data Review Objective data reviewed (be specific which labs, imaging reports with dates reviewed): MAR/vitals/labs reviewed 04/08/24 As above Data in Support of Terminal Illness: Is patient hospice appropriate? No Transition Note Initiated: yes. Cosigned by Janeth Catalan MD at 04/08/2024 12:25 PM EST [facility] 04-08-2024 Consult note Associated Order (s): IP CONSULT TO PALLIATIVE CARE Images from the original note were not included. Palliative Care Initial Consult Chief Complaint: Doroteo Gong is a 83 y.o. male with chief complaint of altered mentation. Palliative Care will follow peripherally, please contact on-call provider for urgent needs Assessment/Plan UTI/obstructive uropathy - schwartz placed, seen by Urology today, note appreciated - per primary: ceftriaxone, tamsulosin HX COPD - O2 2L - mgmt per primary: ipratropium nebs Risk for constipation/hx diarrhea - CT A/P with evidence of constipation - had 2 BM overnight - per primary: polyethylene glycol, psyllium Debility - has resided at [facility] since March 2023 Chronic back pain - prn tramadol with relief, would not adjust this medication as helpful Reduced appetite - tells me better since [facility] - albumin marginally low at 2.6 - ate quarter of breakfast today Palliative Care Encounter -full code - consulted for pain and goals of care - Introduced the palliative care service to the patient and/or family. Discussed that we see patients with serious illnesses. Our role is to assist with pain and symptom management and to support the patient and family to promote quality of life. We at times also assist in discussions regarding goals of care and clinical decisions. - tells me he is okay with current medical care, aware treating UTI, does repeat himself, when discussed code status, tells me he would not want chest compressions, defibrillation, intubation or life support and if that happens to make sure he is comfortable and not in any pain. Discussed what DNRCCA-DNI, okay for ICU means here at [facility], agrees with this. Will place order in [place]. Asked if he and Harshil talked about that, tells me Harshil doesn't want to talk about that aware I will call him today, thankful - only family is nephew Harshil and cousin Solange - no family at bedside, call to Harshil Murguia at [phone], did not answer times 2, voice mail box is full and cannot accept any more messages - will continue to follow for ongoing monitoring of progression of Anorexia - will continue to evaluate test results related to uti , medication effectiveness for Anorexia, response to treatment of uti -follow peripherally until get in touch with nephew, known to our service at [facility], upon dc if returns there our team can follow there as well, no true need to follow here once I talk with family Total of 60 minutes spent on this encounter including Chart review, Patient visit and exam, Documentation in EHR, Care coordination, Communicating with primary attending or other consultants, Electronic cut order hand of medications, tests or procedures, and Counseling and educating patient/family/caregiver. Discharge planning: Ready for discharge from Palliative Care perspective, outpatient/home/ECF follow-up arranged Patient meets criteria for general inpatient hospice care including the following: N/A - Palliative Care Patient Referrals to: known to [facility] palliative care Discussed patient and the plan of care with the other interdisciplinary team (IDT) members of Palliative Care Team, and with Primary Attending, Patient, and Floor Nurse Insert attestation statement here if applicable (.disupervision) or (.npattest) Subjective: Hospital days prior to consult: 0 Trauma Consult: no. (If yes, please add .[email or web address] chang for tracking purposes.) Subjective/Events Doroteo Gong is a 83 y.o. male living at [facility] for 24 hour care and supervision, PMHx includes: chronic pain, GERD, COPD, HLD, kidney stones, BPH, RICKY, interstitial lung disease, HTN, frequent UTI, prior chronic schwartz removed in February, had been recommended for cystoscopy but refused. Brought to [facility] with abdominal pain. CT A/P 04/07/24: Impression: 1. Significant nonspecific irregular bladder wall thickening, trabeculation and several diverticula. Underlying obstructive uropathy or bladder wall malignancy not excluded. There is mild distal left hydroureter. Recommend consultation with urology to determine the need for biopsy. 2. Mild nonspecific prostate enlargement with some mass effect on the bladder more inferiorly. This could be a source of obstruction. 3. Multiple hepatic cysts. Some geographic hypodensity within the left hepatic lobe more centrally thought to likely represent focal fatty infiltration. 4. Mild gaseous distention of the large bowel with suggestion of constipation along the sigmoid colon and rectum. 5. Bilateral nonobstructing renal calculi with extrarenal pelvis large in size on the right. Loose calculi within the renal pelvis on the right are at risk for obstruction and measures up to 0.4 cm on the right. Admitted with IV abx, urology consult. Since seen by palliative care at [facility] we are consulted for pain and goals of care. Patient awake in bed in NAD, did have back pain and L shoulder pain that is improved post tramadol given this morning, no CP, abdominal pain, did have bladder cramping but subsided since schwartz repositioning, breathing easy, no nausea, vomiting, had 2 BM overnight. Pain Assessment (If Pain Scale >0) Description: aching and dull Nonverbal patients: none Duration: year(s) Frequency:Daily--intermittent Location: back, L shoulder Alleviating Factors: pain medication Exacerbating Factors: unable to associate with any factor Effect:Change in Function, Interference with Activities, and Mood Goals of care:Continue Current Management Functional Assessment: PPS: 30% Advance Directives: DNR-CCA Surrogate: Extended Family Prognosis: uncertain at this time Spiritual assessment: No spiritual distress identified Bereavement and grief: Grief Issues Not Identified Past Medical History: Diagnosis Date Arthritis knees hands Asthma Chronic pain GERD (gastroesophageal reflux disease) Hyperlipidemia Kidney stone 2013 Prostate disease Sleep apnea Thyroid disease Past Surgical History: Procedure Laterality Date APPENDECTOMY BACK SURGERY 2014 slipped disc CATARACT EXTRACTION CHOLECYSTECTOMY JOINT REPLACEMENT Right 2014 LITHOTRIPSY 3-4 times OTHER SURGICAL HISTORY hemorroid removed OTHER SURGICAL HISTORY Left 12/19/2017 stent placement, cystoscopy and pyelogram, Laser Lithotripsy SINUS SURGERY Family History Problem Relation Name Age of Onset Heart failure Mother Diabetes Mother Unable to obtain family history due to N/A- family history available Allergies Allergen Reactions Allopurinol Unknown Erythromycin Unknown Penicillins Unknown Patient tolerates cephalosporins Sulfa Antibiotics Unknown Pt does not know reaction Tetracyclines & Related Unknown Levofloxacin Other jittery Omeprazole Ciprofloxacin Unknown Paroxetine Other Fatigue Review of Systems ROS: See palliative care ROS/ESAS below; All other systems were reviewed and are negative. Arabi Symptom Assessment Score Arabi Score Pain Score 2 Tiredness Score 0 Nausea Score 0 Depression Score 0 Anxiety Score 0 Drowsiness Score 0 Anorexia Score (0= eating well, 10= not eating) 5 Wellbeing Score (10= worst sense of well-being) 0 Constipation 0 Dyspnea Score (0= no shortness of breath) 1 FLACC Scale (For Pain Assessment of the Non-Verbal Patient) Patient is verbal Assessed by: patient and provider. 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 Constitutional: Appearance: He is ill-appearing. HENT: Head: Normocephalic and atraumatic. Nose: Nose normal. Mouth/Throat: Mouth: Mucous membranes are moist. Eyes: General: Right eye: No discharge. Left eye: No discharge. Pupils: Pupils are equal, round, and reactive to light. Cardiovascular: Rate and Rhythm: Normal rate and regular rhythm. Pulses: Normal pulses. Heart sounds: Normal heart sounds. No murmur heard. Comments: No edema B post tib/dorsalis pedis palpable Pulmonary: Effort: Pulmonary effort is normal. Breath sounds: Normal breath sounds. Abdominal: General: Bowel sounds are normal. There is no distension. Palpations: Abdomen is soft. There is no mass. Genitourinary: Comments: Schwartz to gravity Musculoskeletal: Cervical back: Normal range of motion and neck supple. Right lower leg: No edema. Left lower leg: No edema. Skin: General: Skin is warm and dry. Comments: fragile Neurological: General: No focal deficit present. Mental Status: He is alert and oriented to person, place, and time. Comments: Makes confused statement at times Psychiatric: Mood and Affect: Mood normal. Behavior: Behavior normal. Behavior is cooperative. Comments: No agitation Current Medications: Inpatient medications reviewed: yes Home medications reviewed: yes OARRS Reviewed: Yes-tramadol 24 Hour PRN Meds: tramadol times 2 Results/Verification of Data Review Objective data reviewed (be specific which labs, imaging reports with dates reviewed): MAR/vitals/labs reviewed 04/08/24 As above Data in Support of Terminal Illness: Is patient hospice appropriate? No Transition Note Initiated: yes. Cosigned by Janeth Catalan MD at 04/08/2024 12:25 PM EST Associated Order(s): IP CONSULT TO UROLOGY Images from the original note were not included. Yenifer Dc DO 04/08/2024 at 9:22 AM [facility] Urology Inpatient Consultation PATIENT NAME: Doroteo Gong DATE OF : 1940 ADMISSION DATE: 04/07/2024 4:42 AM TODAY'S DATE: 04/08/2024 Reason for Consult: Obstructive uropathy IMPRESSION: Incomplete bladder emptying Left hydroureteronephrosis Gross hematuria Bladder trabeculations, diverticula Leukocytosis PLAN Schwartz catheter position was checked by deflating the balloon and advancing and reinflating. I do believe that the catheter was not quite in the bladder all of the way as there was purulent urine drainage after repositioning Maintain catheter to drainage, he will go home with Schwartz catheter upon discharge Follow-up on cultures, adjust antibiotics as necessary He has previously declined office cystoscopy, due to age and comorbidities it is reasonable to forego cystoscopy (no shiraz hematuria at this time) He has had numerous instances of incomplete emptying, retention requiring Schwartz catheter insertion therefore I do feel that he will likely require indwelling catheter upon discharge We can follow-up in the office to discuss catheter care after he recovers from this hospitalization Thank you for this consultation and allow for participation in this patient's care. Please call /page with questions concerns or changes in patient's urologic status. To contact urology, please use On-Call Finder to locate the appropriate provider on-call Yenifer Dc DO 04/08/24 9:22 AM HISTORY OF PRESENT ILLNESS: Mr. Gong is a 83 y.o. male being seen for obstructive uropathy. Doroteo is known to urology for history of BPH, retention requiring indwelling catheter. He was last seen by Dr. Ordonez on 02/27/2024. Dr. Ordonez recommended he undergo an office cystoscopy at his next visit. Due to his age and other medical conditions he had declined further follow-up Plan as of February 2024 was to continue alfuzosin and Proscar for BPH He underwent catheter removal on 02/27/2024. At that visit he was not able to fully explain why he had a catheter. Per previous encounters and reports it appears that he has had intermittent incomplete bladder emptying with recurrent urinary tract infections. Urology was consulted yesterday 04/07/2024. I did speak with the patient's nurse and also medicine attending and explained that urology would not be able to see him on that date. We discussed placing a catheter secondary to the significant bladder distention seen on his imaging Today 04/08/2024 his white blood cell count is 20,000, up from 15,000 Creatinine is stable at 0.88 from 0.78 Urinalysis was performed which reveals turbid urine with leukocytes, Blood, bacteria and mucus, culture is currently in progress Today he reports he is having penile pain. He is having some bladder pain as well. Catheter is draining Pyridium stained urine that is also quite purulent Catheter catheter position was checked by deflating the balloon, advancing and reinflating the balloon. There was an immediate drainage of purulent urine noted Catheter was secured to the patient's left thigh so that the catheter was no longer on tension Review of Systems: Review of Systems Constitutional: Positive for activity change, appetite change and fatigue. Gastrointestinal: Negative. Genitourinary: Positive for difficulty urinating, dysuria, enuresis, frequency, hematuria and urgency. Musculoskeletal: Positive for arthralgias, back pain and gait problem. Past Medical History: Past Medical History: Diagnosis Date Arthritis knees hands Asthma Chronic pain GERD (gastroesophageal reflux disease) Hyperlipidemia Kidney stone 2012 Prostate disease Sleep apnea Thyroid disease Past Surgical History: Past Surgical History: Procedure Laterality Date APPENDECTOMY BACK SURGERY 2013 slipped disc CATARACT EXTRACTION CHOLECYSTECTOMY JOINT REPLACEMENT Right 2013 LITHOTRIPSY 3-4 times OTHER SURGICAL HISTORY hemorroid removed OTHER SURGICAL HISTORY Left 12/19/2017 stent placement, cystoscopy and pyelogram, Laser Lithotripsy SINUS SURGERY Current Medications: Current Facility-Administered Medications: acetaminophen (Tylenol) tablet 650 mg, 650 mg, Oral, q6h PRN, 650 mg at 04/07/24 1337 OR acetaminophen (Tylenol) suppository 650 mg, 650 mg, Rectal, q6h PRN, Ann-Marie Rodriguez MD albuterol 108 (90 Base) MCG/ACT inhaler 2 puff, 2 puff, Inhalation, q6h PRN, Ann-Marie Rodriguez MD artificial tears (Stye) ophthalmic ointment, , Both Eyes, PRN, Ann-Marie Rodriguez MD atorvastatin (Lipitor) tablet 10 mg, 10 mg, Oral, Nightly, Ann-Marie Rodriguez MD, 10 mg at 04/07/242018 cefTRIAXone (Rocephin) 1,000 mg in sodium chloride 0.9 % 50 mL IVPB Mini-Bag Plus, 1,000 mg, IntraVENous, q24h, Ann-Marie Rodriguez MD, Stopped at 04/08/24 0611 cetirizine (ZyrTEC) tablet 5 mg, 5 mg, Oral, Daily, Ann-Marie Rodriguez MD, 5 mg at 04/08/24 09 cyanocobalamin (Vitamin B-12) tablet 1,000 mcg, 1,000 mcg, Oral, Daily, Ann-Marie Rodriguez MD, 1,000 mcg at 04/08/24 0905 enoxaparin (Lovenox) syringe 40 mg, 40 mg, SubCUTAneous, Daily, Ann-Marie Rodriguez MD, 40 mg at 04/08/24 09 finasteride (Proscar) tablet 5 mg, 5 mg, Oral, Daily, Ann-Marie Rodriguez MD, 5 mg at 04/08/24 09 fluticasone (Flovent) 110 MCG/ACT inhaler 2 puff, 2 puff, Inhalation, BID, Ann-Marie Rodriguez MD, 2 puff at 04/08/24 09 [Held by provider] hydroCHLOROthiazide (HYDRODiuril) tablet 25 mg, 25 mg, Oral, q AM, Ann-Marie Rodriguez MD influenza vaccine A&B surf ant adjuvanted (Fluad) HIGH-DOSE injection 0.5 mL, 0.5 mL, IntraMUSCular, Prior to discharge, Ann-Marie Rodriguez MD ipratropium (Atrovent) 0.06 % nasal spray 2 spray, 2 spray, Each Nostril, 4x daily, Ann-Marie Rodriguez MD, 2 spray at 04/08/24 09 levothyroxine (Synthroid, Levoxyl) tablet 50 mcg, 50 mcg, Oral, Daily, Ann-Marie Rodriguez MD, 50 mcg at 04/08/24 09 Lidocaine 4 % patch 1 patch, 1 patch, Topical, Daily, Ann-Marie Rodriguez MD, 1 patch at 04/08/24 0908 melatonin tablet 3 mg, 3 mg, Oral, Nightly, Ann-Marie Rodriguez MD, 3 mg at 04/07/24 2019 naloxone (Narcan) injection 0.4 mg, 0.4 mg, IntraVENous, q5 min PRN, Ann-Marie Rodriguez MD ondansetron ODT (Zofran-ODT) disintegrating tablet 4 mg, 4 mg, Oral, q8h PRN OR ondansetron (Zofran) injection 4 mg, 4 mg, IntraVENous, q6h PRN, Ann-Marie Rodriguez MD pantoprazole (ProtoNix) EC tablet 40 mg, 40 mg, Oral, qAM AC, Ann-Marie Rodriguez MD, 40 mg at 04/08/24 0535 phenazopyridine (Pyridium) tablet 100 mg, 100 mg, Oral, TID WC, Ann-Marie Rodriguez MD, 100 mg at 04/08/24 0911 polyethylene glycol (PEG) 3350 (Miralax) packet 17 g, 17 g, Oral, Daily PRN, Ann-Marie Rodriguez MD polyethylene glycol (PEG) 3350 (Miralax) packet 17 g, 17 g, Oral, Daily, Ann-Marie Rodriguez MD psyllium (Metamucil) 51.7 % packet 3.4 g of fiber, 3.4 g of fiber, Oral, Daily, Ann-Marie Rodriguez MD, 3.4 g of fiber at 04/07/24 1528 sertraline (Zoloft) tablet 25 mg, 25 mg, Oral, q AM, Ann-Marie Rodriguez MD, 25 mg at 04/08/24 0905 sodium chloride 0.9 % infusion, 100 mL/hr, IntraVENous, Continuous, Ann-Marie Rodriguez MD, Last Rate: 100 mL/hr at 04/08/24 0024, 100 mL/hr at 04/08/24 0024 tamsulosin (Flomax) 24 hr capsule 0.4 mg, 0.4 mg, Oral, Daily, Ann-Marie Rodriguez MD, 0.4 mg at 04/08/24 0905 traMADol (Ultram) tablet 50 mg, 50 mg, Oral, q8h PRN, Ann-Marie Rodriguez MD, 50 mg at 04/08/24 0535 Allergies: Allopurinol, Erythromycin, Penicillins, Sulfa antibiotics, Tetracyclines & related, Levofloxacin, Omeprazole, Ciprofloxacin, and Paroxetine Social History: Social History Socioeconomic History Marital status: Single Spouse name: Not on file Number of children: Not on file Years of education: Not on file Highest education level: Not on file Occupational History Not on file Tobacco Use Smoking status: Never Smokeless tobacco: Never Vaping Use Vaping status: Never Used Substance and Sexual Activity Alcohol use: No Drug use: No Sexual activity: Not on file Other Topics Concern Not on file Social History Narrative Not on file Social Drivers of Health Financial Resource Strain: Not on file Food Insecurity: Not on file Transportation Needs: Unmet Transportation Needs (12/31/2022) PRAPARE - Transportation Lack of Transportation (Medical): Yes Lack of Transportation (Non-Medical): Yes Physical Activity: Not on file Stress: Not on file Social Connections: Not on file Intimate Partner Violence: Not At Risk (04/07/2024) Humiliation, Afraid, Rape, and Kick questionnaire Fear of Current or Ex-Partner: No Emotionally Abused: No Physically Abused: No Sexually Abused: No Housing Stability: Unknown (12/31/2022) Housing Stability Vital Sign Unable to Pay for Housing in the Last Year: No Number of Places Lived in the Last Year: Not on file Unstable Housing in the Last Year: No Family History: Family History Problem Relation Name Age of Onset Heart failure Mother Diabetes Mother PHYSICAL EXAM: VITALS: BP (!) 91/48 (BP Location: Left arm, Patient Position: Lying) Pulse 74 Temp 36.4 C (97.6 F) (Temporal) Resp 16 SpO2 97% Physical Exam Constitutional: General: He is not in acute distress. Appearance: He is ill-appearing. He is not toxic-appearing or diaphoretic. Pulmonary: Effort: Pulmonary effort is normal. Abdominal: General: There is no distension. Palpations: Abdomen is soft. Genitourinary: Comments: Circumcised, hidden penis, Schwartz catheter in place with Pyridium stained urine. Schwartz catheter advanced into bladder, secured to left thigh. Testicles descended bilaterally no masses nontender Neurological: Mental Status: He is alert. 24HR INTAKE/OUTPUT: I/O last 3 completed shifts: In: 1063.3 [I.V.:1063.3] Out: - DATA: CBC: Recent Labs 04/07/24 0453 04/08/24 0109 WBC 15.4* 20.0* HGB 12.9* 12.0* HCT 37.5* 36.3* PLT 552* 524* BMP: Recent Labs 04/07/24 0453 04/08/24 0109 NA 130* 133* K 3.4* 3.8 CL 96* 100 CO2 23 26 BUN 25* 28* CREATININE 0.78 0.88 GLUCOSE 93 91 Hepatic: Recent Labs 04/07/24 0453 AST 28 ALT 6 BILITOT 0.6 ALKPHOS 103 Mag: No results for input(s): MG in the last 72 hours. Phos: No results for input(s): PHOS in the last 72 hours. INR: No results for input(s): INR in the last 72 hours. PSA: @LASTLABX(psa)@ UC: No components found for: LABURIN Radiology Review: === 04/07/24 === CT ABDOMEN PELVIS W CONTRAST - Impression - Impression: 1. Significant nonspecific irregular bladder wall thickening, trabeculation and several diverticula. Underlying obstructive uropathy or bladder wall malignancy not excluded. There is mild distal left hydroureter. Recommend consultation with urology to determine the need for biopsy. 2. Mild nonspecific prostate enlargement with some mass effect on the bladder more inferiorly. This could be a source of obstruction. 3. Multiple hepatic cysts. Some geographic hypodensity within the left hepatic lobe more centrally thought to likely represent focal fatty infiltration. 4. Mild gaseous distention of the large bowel with suggestion of constipation along the sigmoid colon and rectum. 5. Bilateral nonobstructing renal calculi with extrarenal pelvis large in size on the right. Loose calculi within the renal pelvis on the right are at risk for obstruction and measures up to 0.4 cm on the right. Report Dictated on Electronically Signed By: Storm Yepez MD Electronically Signed Date/Time: 04/07/2024 7:23 AM EST Independent review of imaging reveals significantly distended bladder, enlarged prostate indenting the base of the bladder. Bladder wall is severely thickened with trabeculations and diverticula. There is a left hydroureteronephrosis down to the level of the bladder. 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 The right ureter is not dilated. documented in this encounter [facility] 04-08-2024 Note Patient was seen on consultation at [facility] on 04/08/2024 He is known to the practice, last seen by Dr. Ordonez approximately 1 month ago At that time catheter had been removed He presented with incomplete emptying, acute cystitis, hydronephrosis He will be discharged home with a catheter Please schedule follow-up visit with EKREN or Dr. Ordonez, routine follow-up can be in several weeks [facility] 04-08-2024 Telephone encounter Note Patient was seen on consultation at [facility] on 04/08/2024 He is known to the practice, last seen by Dr. Ordonez approximately 1 month ago At that time catheter had been removed He presented with incomplete emptying, acute cystitis, hydronephrosis He will be discharged home with a catheter Please schedule follow-up visit with KEREN or Dr. Ordonez, routine follow-up can be in several weeks [facility] 04-08-2024 Consult note Associated Order (s): IP CONSULT TO UROLOGY Images from the original note were not included. Yenifer Dc DO 04/08/2024 at 9:22 AM [facility] Urology Inpatient Consultation PATIENT NAME: Doroteo Gong DATE OF : 1940 ADMISSION DATE: 04/07/2024 4:42 AM TODAY'S DATE: 04/08/2024 Reason for Consult: Obstructive uropathy IMPRESSION: Incomplete bladder emptying Left hydroureteronephrosis Gross hematuria Bladder trabeculations, diverticula Leukocytosis PLAN Schwartz catheter position was checked by deflating the balloon and advancing and reinflating. I do believe that the catheter was not quite in the bladder all of the way as there was purulent urine drainage after repositioning Maintain catheter to drainage, he will go home with Schwartz catheter upon discharge Follow-up on cultures, adjust antibiotics as necessary He has previously declined office cystoscopy, due to age and comorbidities it is reasonable to forego cystoscopy (no shiraz hematuria at this time) He has had numerous instances of incomplete emptying, retention requiring Schwartz catheter insertion therefore I do feel that he will likely require indwelling catheter upon discharge We can follow-up in the office to discuss catheter care after he recovers from this hospitalization Thank you for this consultation and allow for participation in this patient's care. Please call /page with questions concerns or changes in patient's urologic status. To contact urology, please use On-Call Finder to locate the appropriate provider on-call Yenifer Dc DO 04/08/24 9:22 AM HISTORY OF PRESENT ILLNESS: Mr. Gong is a 83 y.o. male being seen for obstructive uropathy. Doroteo is known to urology for history of BPH, retention requiring indwelling catheter. He was last seen by Dr. Ordonez on 02/27/2024. Dr. Ordonez recommended he undergo an office cystoscopy at his next visit. Due to his age and other medical conditions he had declined further follow-up Plan as of February 2024 was to continue alfuzosin and Proscar for BPH He underwent catheter removal on 02/27/2024. At that visit he was not able to fully explain why he had a catheter. Per previous encounters and reports it appears that he has had intermittent incomplete bladder emptying with recurrent urinary tract infections. Urology was consulted yesterday 04/07/2024. I did speak with the patient's nurse and also medicine attending and explained that urology would not be able to see him on that date. We discussed placing a catheter secondary to the significant bladder distention seen on his imaging Today 04/08/2024 his white blood cell count is 20,000, up from 15,000 Creatinine is stable at 0.88 from 0.78 Urinalysis was performed which reveals turbid urine with leukocytes, Blood, bacteria and mucus, culture is currently in progress Today he reports he is having penile pain. He is having some bladder pain as well. Catheter is draining Pyridium stained urine that is also quite purulent Catheter catheter position was checked by deflating the balloon, advancing and reinflating the balloon. There was an immediate drainage of purulent urine noted Catheter was secured to the patient's left thigh so that the catheter was no longer on tension Review of Systems: Review of Systems Constitutional: Positive for activity change, appetite change and fatigue. Gastrointestinal: Negative. Genitourinary: Positive for difficulty urinating, dysuria, enuresis, frequency, hematuria and urgency. Musculoskeletal: Positive for arthralgias, back pain and gait problem. Past Medical History: Past Medical History: Diagnosis Date Arthritis knees hands Asthma Chronic pain GERD (gastroesophageal reflux disease) Hyperlipidemia Kidney stone 2012 Prostate disease Sleep apnea Thyroid disease Past Surgical History: Past Surgical History: Procedure Laterality Date APPENDECTOMY BACK SURGERY 2014 slipped disc CATARACT EXTRACTION CHOLECYSTECTOMY JOINT REPLACEMENT Right 2014 LITHOTRIPSY 3-4 times OTHER SURGICAL HISTORY hemorroid removed OTHER SURGICAL HISTORY Left 12/19/2017 stent placement, cystoscopy and pyelogram, Laser Lithotripsy SINUS SURGERY Current Medications: Current Facility-Administered Medications: acetaminophen (Tylenol) tablet 650 mg, 650 mg, Oral, q6h PRN, 650 mg at 04/07/24 1337 OR acetaminophen (Tylenol) suppository 650 mg, 650 mg, Rectal, q6h PRN, Ann-Marie Rodriguez MD albuterol 108 (90 Base) MCG/ACT inhaler 2 puff, 2 puff, Inhalation, q6h PRN, Ann-Marie Rodriguez MD artificial tears (Stye) ophthalmic ointment, , Both Eyes, PRN, Ann-Marie Rodriguez MD atorvastatin (Lipitor) tablet 10 mg, 10 mg, Oral, Nightly, Ann-Marie Rodriguez MD, 10 mg at 04/07/242018 cefTRIAXone (Rocephin) 1,000 mg in sodium chloride 0.9 % 50 mL IVPB Mini-Bag Plus, 1,000 mg, IntraVENous, q24h, Ann-Marie Rodriguez MD, Stopped at 04/08/24 0611 cetirizine (ZyrTEC) tablet 5 mg, 5 mg, Oral, Daily, Ann-Marie Rodriguez MD, 5 mg at 04/08/24 0905 cyanocobalamin (Vitamin B-12) tablet 1,000 mcg, 1,000 mcg, Oral, Daily, Ann-Marie Rodriguez MD, 1,000 mcg at 04/08/24 0905 enoxaparin (Lovenox) syringe 40 mg, 40 mg, SubCUTAneous, Daily, Ann-Marie Rodriguez MD, 40 mg at 04/08/24 0907 finasteride (Proscar) tablet 5 mg, 5 mg, Oral, Daily, Ann-Marie Rodriguez MD, 5 mg at 04/08/24 0905 fluticasone (Flovent) 110 MCG/ACT inhaler 2 puff, 2 puff, Inhalation, BID, Ann-Marie Rodriguez MD, 2 puff at 04/08/24 0908 [Held by provider] hydroCHLOROthiazide (HYDRODiuril) tablet 25 mg, 25 mg, Oral, q AM, Ann-Marie Rodriguez MD influenza vaccine A&B surf ant adjuvanted (Fluad) HIGH-DOSE injection 0.5 mL, 0.5 mL, IntraMUSCular, Prior to discharge, Ann-Marie Rodriguez MD ipratropium (Atrovent) 0.06 % nasal spray 2 spray, 2 spray, Each Nostril, 4x daily, Ann-Marie Rodriguez MD, 2 spray at 04/08/24 0907 levothyroxine (Synthroid, Levoxyl) tablet 50 mcg, 50 mcg, Oral, Daily, Ann-Marie Rodriguez MD, 50 mcg at 04/08/24 0905 Lidocaine 4 % patch 1 patch, 1 patch, Topical, Daily, Ann-Marie Rodriguez MD, 1 patch at 04/08/24 0908 melatonin tablet 3 mg, 3 mg, Oral, Nightly, Ann-Marie Rodriguez MD, 3 mg at 04/07/242018 naloxone (Narcan) injection 0.4 mg, 0.4 mg, IntraVENous, q5 min PRN, Ann-Marie Rodriguez MD ondansetron ODT (Zofran-ODT) disintegrating tablet 4 mg, 4 mg, Oral, q8h PRN OR ondansetron (Zofran) injection 4 mg, 4 mg, IntraVENous, q6h PRN, Ann-Marie Rodriguez MD pantoprazole (ProtoNix) EC tablet 40 mg, 40 mg, Oral, qAM AC, Ann-Marie Rodriguez MD, 40 mg at 04/08/24 0535 phenazopyridine (Pyridium) tablet 100 mg, 100 mg, Oral, TID WC, Ann-Marie Rodriguez MD, 100 mg at 04/08/24 0911 polyethylene glycol (PEG) 3350 (Miralax) packet 17 g, 17 g, Oral, Daily PRN, Ann-Marie Rodriguez MD polyethylene glycol (PEG) 3350 (Miralax) packet 17 g, 17 g, Oral, Daily, Ann-Marie Rodriguez MD psyllium (Metamucil) 51.7 % packet 3.4 g of fiber, 3.4 g of fiber, Oral, Daily, Ann-Marie Rodriguez MD, 3.4 g of fiber at 04/07/24 1528 sertraline (Zoloft) tablet 25 mg, 25 mg, Oral, q AM, Ann-Marie Rodriguez MD, 25 mg at 04/08/24 0905 sodium chloride 0.9 % infusion, 100 mL/hr, IntraVENous, Continuous, Ann-Marie Rodriguez MD, Last Rate: 100 mL/hr at 04/08/24 0024, 100 mL/hr at 04/08/24 0024 tamsulosin (Flomax) 24 hr capsule 0.4 mg, 0.4 mg, Oral, Daily, Ann-Marie Rodriguez MD, 0.4 mg at 04/08/24 0905 traMADol (Ultram) tablet 50 mg, 50 mg, Oral, q8h PRN, Ann-Marie Rodriguez MD, 50 mg at 04/08/24 0535 Allergies: Allopurinol, Erythromycin, Penicillins, Sulfa antibiotics, Tetracyclines & related, Levofloxacin, Omeprazole, Ciprofloxacin, and Paroxetine Social History: Social History Socioeconomic History Marital status: Single Spouse name: Not on file Number of children: Not on file Years of education: Not on file Highest education level: Not on file Occupational History Not on file Tobacco Use Smoking status: Never Smokeless tobacco: Never Vaping Use Vaping status: Never Used Substance and Sexual Activity Alcohol use: No Drug use: No Sexual activity: Not on file Other Topics Concern Not on file Social History Narrative Not on file Social Drivers of Health Financial Resource Strain: Not on file Food Insecurity: Not on file Transportation Needs: Unmet Transportation Needs (12/31/2022) PRAPARE - Transportation Lack of Transportation (Medical): Yes Lack of Transportation (Non-Medical): Yes Physical Activity: Not on file Stress: Not on file Social Connections: Not on file Intimate Partner Violence: Not At Risk (04/07/2024) Humiliation, Afraid, Rape, and Kick questionnaire Fear of Current or Ex-Partner: No Emotionally Abused: No Physically Abused: No Sexually Abused: No Housing Stability: Unknown (12/31/2022) Housing Stability Vital Sign Unable to Pay for Housing in the Last Year: No Number of Places Lived in the Last Year: Not on file Unstable Housing in the Last Year: No Family History: Family History Problem Relation Name Age of Onset Heart failure Mother Diabetes Mother PHYSICAL EXAM: VITALS: BP (!) 91/48 (BP Location: Left arm, Patient Position: Lying) Pulse 74 Temp 36.4 C (97.6 F) (Temporal) Resp 16 SpO2 97% Physical Exam Constitutional: General: He is not in acute distress. Appearance: He is ill-appearing. He is not toxic-appearing or diaphoretic. Pulmonary: Effort: Pulmonary effort is normal. Abdominal: General: There is no distension. Palpations: Abdomen is soft. Genitourinary: Comments: Circumcised, hidden penis, Schwartz catheter in place with Pyridium stained urine. Schwartz catheter advanced into bladder, secured to left thigh. Testicles descended bilaterally no masses nontender Neurological: Mental Status: He is alert. 24HR INTAKE/OUTPUT: I/O last 3 completed shifts: In: 1063.3 [I.V.:1063.3] Out: - DATA: CBC: Recent Labs 04/07/24 0453 04/08/24 0109 WBC 15.4* 20.0* HGB 12.9* 12.0* HCT 37.5* 36.3* PLT 552* 524* BMP: Recent Labs 04/07/24 0453 04/08/24 0109 NA 130* 133* K 3.4* 3.8 CL 96* 100 CO2 23 26 BUN 25* 28* CREATININE 0.78 0.88 GLUCOSE 93 91 Hepatic: Recent Labs 04/07/24 0453 AST 28 ALT 6 BILITOT 0.6 ALKPHOS 103 Mag: No results for input(s): MG in the last 72 hours. Phos: No results for input(s): PHOS in the last 72 hours. INR: No results for input(s): INR in the last 72 hours. PSA: @LASTLABX(psa)@ UC: No components found for: LABURIN Radiology Review: === 04/07/24 === CT ABDOMEN PELVIS W CONTRAST - Impression - Impression: 1. Significant nonspecific irregular bladder wall thickening, trabeculation and several diverticula. Underlying obstructive uropathy or bladder wall malignancy not excluded. There is mild distal left hydroureter. Recommend consultation with urology to determine the need for biopsy. 2. Mild nonspecific prostate enlargement with some mass effect on the bladder more inferiorly. This could be a source of obstruction. 3. Multiple hepatic cysts. Some geographic hypodensity within the left hepatic lobe more centrally thought to likely represent focal fatty infiltration. 4. Mild gaseous distention of the large bowel with suggestion of constipation along the sigmoid colon and rectum. 5. Bilateral nonobstructing renal calculi with extrarenal pelvis large in size on the right. Loose calculi within the renal pelvis on the right are at risk for obstruction and measures up to 0.4 cm on the right. Report Dictated on Electronically Signed By: Storm Yepez MD Electronically Signed Date/Time: 04/07/2024 7:23 AM EST Independent review of imaging reveals significantly distended bladder, enlarged prostate indenting the base of the bladder. Bladder wall is severely thickened with trabeculations and diverticula. There is a left hydroureteronephrosis down to the level of the bladder. 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 The right ureter is not dilated. [employer] Work Phone: 04-08-2024 Plan of care note Problem: Knowledge Deficit Goal: Patient/family/caregiver demonstrates understanding of disease process, treatment plan, medications, and discharge instructions Outcome: Progressing Problem: Potential for Compromised Skin Integrity Goal: Skin Integrity is Maintained or Improved Outcome: Progressing [facility] 04-07-2024 Plan of care note Problem: Pain - Adult Goal: Verbalizes/displays adequate comfort level or baseline comfort level Outcome: Progressing met Flowsheets (Taken 04/07/20241842) Verbalizes/displays adequate comfort level or baseline comfort level: Encourage patient to monitor pain and request assistance Assess pain using appropriate pain scale Problem: Safety - Adult Goal: Free from fall injury Outcome: Progressing met Flowsheets (Taken 04/07/2024 1843) Free from fall injury: Instruct family/caregiver on patient safety Based on caregiver fall risk screen, instruct family/caregiver to ask for assistance with transferring infant if caregiver noted to have fall risk factors [facility] 04-07-2024 History and physical note Attending History and Physical Admit Date: 04/07/2024 PCP: Roopa Madera MD CHIEF COMPLAINT: Abdominal pain Reason for Admission: Hydronephrosis History Obtained From: patient HISTORY OF PRESENT ILLNESS: Doroteo is a 83 y.o. male with past medical history below who presents with chief complaint listed above. Doroteo Gong is a 83 y.o. male with past medical history significant for UTIs, nephrolithiasis, GERD, chronic pain, pulmonary hypertension, interstitial lung disease, RICKY, COPD with asthma who presents to the emergency department per EMS with reported history of altered mental status. He arrived here from [facility], because he was pressing the call light too many times SNF reported the patient was confused, however patient was alert and oriented x 4 for EMS with stable vital signs He complained of abdominal discomfort since today morning which is diffuse and associated with nausea but no vomiting.. Denies any melena or hematochezia. He has had follow-ups with Dr. Ordonez from urology service and has been refusing cystoscopy. . He did have a CT scan of the abdomen today which showed irregular bladder wall thickening along with some obstructive uropathy with unable to exclude bladder wall malignancy and left hydroureter. CT also suggested gaseous distention of the large bowel suggestive of constipation and bilateral nonobstructing renal calculi. Hence the inpatient admission Has multiple UTIs in the past and had a Schwartz catheter which was removed couple of weeks ago. And he has refused cystoscopy for surveillance Denies chest pain, sob, , diarrhea, constipation, fevers, or chills. Will admit for further evaluation and management. Past Medical History: Past Medical History: Diagnosis Date Arthritis knees hands Asthma Chronic pain GERD (gastroesophageal reflux disease) Hyperlipidemia Kidney stone 2012 Prostate disease Sleep apnea Thyroid disease Past Surgical History: Past Surgical History: Procedure Laterality Date APPENDECTOMY BACK SURGERY 2014 slipped disc CATARACT EXTRACTION CHOLECYSTECTOMY JOINT REPLACEMENT Right 2014 LITHOTRIPSY 3-4 times OTHER SURGICAL HISTORY hemorroid removed OTHER SURGICAL HISTORY Left 12/19/2017 stent placement, cystoscopy and pyelogram, Laser Lithotripsy SINUS SURGERY Social History: Social History Socioeconomic History Marital status: Single Spouse name: Not on file Number of children: Not on file Years of education: Not on file Highest education level: Not on file Occupational History Not on file Tobacco Use Smoking status: Never Smokeless tobacco: Never Vaping Use Vaping status: Never Used Substance and Sexual Activity Alcohol use: No Drug use: No Sexual activity: Not on file Other Topics Concern Not on file Social History Narrative Not on file Social Drivers of Health Financial Resource Strain: Not on file Food Insecurity: Not on file Transportation Needs: Unmet Transportation Needs (12/31/2022) PRAPARE - Transportation Lack of Transportation (Medical): Yes Lack of Transportation (Non-Medical): Yes Physical Activity: Not on file Stress: Not on file Social Connections: Not on file Intimate Partner Violence: Not At Risk (04/07/2024) Humiliation, Afraid, Rape, and Kick questionnaire Fear of Current or Ex-Partner: No Emotionally Abused: No Physically Abused: No Sexually Abused: No Housing Stability: Unknown (12/31/2022) Housing Stability Vital Sign Unable to Pay for Housing in the Last Year: No Number of Places Lived in the Last Year: Not on file Unstable Housing in the Last Year: No Family History: Family History Problem Relation Name Age of Onset Heart failure Mother Diabetes Mother Medications Prior to Admission: No current facility-administered medications on file prior to encounter. Current Outpatient Medications on File Prior to Encounter Medication Sig Dispense Refill acetaminophen (Tylenol) 325 MG tablet Take 650 mg by mouth. albuterol 108 (90 Base) MCG/ACT inhaler Inhale 2 puffs every 6 hours as needed. alfuzosin ER (Uroxatral) 10 MG 24 hr tablet Take 1 tablet (10 mg) by mouth daily. 90 tablet 3 atorvastatin (Lipitor) 10 MG tablet Take 10 mg by mouth daily. carboxymethylcellulose (Refresh Plus) 0.5 % ophthalmic solution Administer 1 drop into both eyes if needed for dry eyes. cyanocobalamin ([employer] Vitamin B-12) 1000 MCG tablet Take 1,000 mcg by mouth. escitalopram (Lexapro) 10 MG tablet Take 10 mg by mouth daily. finasteride (Proscar) 5 MG tablet Take 1 tablet (5 mg) by mouth daily. 90 tablet 3 fluticasone (Flovent) 110 MCG/ACT inhaler Inhale 2 puffs in the morning and 2 puffs before bedtime. hydroCHLOROthiazide (HYDRODiuril) 25 MG tablet Take 25 mg by mouth every morning. ipratropium (Atrovent) 0.06 % nasal spray Administer 2 sprays into affected nostril(s). levothyroxine (Synthroid, Levoxyl) 50 MCG tablet Take 50 mcg by mouth in the morning. magnesium hydroxide (Milk of Magnesia) 800 MG/5ML suspension Take by mouth Daily as needed for constipation. omeprazole (PriLOSEC) [address] capsule Take 20 mg by mouth in the morning. ondansetron ODT (Zofran-ODT) 4 MG disintegrating tablet Take 4 mg by mouth every 8 hours as needed for nausea or vomiting. polyethylene glycol, PEG, 3350 (Glycolax) 17 GM/SCOOP powder Take by mouth. simvastatin (Zocor) 20 MG tablet Take 20 mg by mouth in the morning. Allergies: Allergies Allergen Reactions Allopurinol Unknown Erythromycin Unknown Penicillins Unknown Patient tolerates cephalosporins Sulfa Antibiotics Unknown Pt does not know reaction Tetracyclines & Related Unknown Levofloxacin Other jittery Ciprofloxacin Unknown Paroxetine Other Fatigue REVIEW OF SYSTEMS: Constitutional: Negative for fever, chills, positive for activity change HEENT: Negative for congestion, postnasal drip and sneezing. , Has hearing aids but does not have them with him Eyes: Negative for itching and visual disturbance. Respiratory: Negative for apnea, cough, choking, chest tightness, shortness of breath, wheezing and stridor. Cardiovascular: Negative for chest pain. Gastrointestinal: Positive for nausea and vomiting, and positive for abdominal discomfort genitourinary: Negative for dysuria, frequency and flank pain. Denies any hematuria Musculoskeletal: Negative for myalgias and joint swelling. Skin: Negative for rash. Neurological: Negative for dizziness, tremors, seizures, syncope, facial asymmetry, speech difficulty, weakness, numbness and headaches. Psychiatric/Behavioral: Negative for suicidal ideas, behavioral problems, self-injury and dysphoric mood. Vitals: BP 93/64 (BP Location: Left arm, Patient Position: Lying) Pulse 114 Temp 36.9 C (98.4 F) (Temporal) Resp 16 SpO2 94% BMI Classification: Morbidly Obese (>40.0) Pulse Ox: SpO2 Av.5 % Min: 92 % Max: 100 % Supplemental O2: O2 Flow Rate (L/min): 2 L/min PHYSICAL EXAM: General appearance: No apparent distress, appears stated age and cooperative with exam. HEENT: Normal cephalic, atraumatic without obvious deformity. Pupils equal, round, and reactive to light. Extra ocular muscles intact. Conjunctivae/corneas clear. Neck: Supple, with full range of motion. Respiratory: Diminished breath sounds bilaterally aterally without Rales/Wheezes/Rhonchi. Cardiovascular: Regular rate and rhythm with normal S1/S2 without murmurs, rubs or gallops. Abdomen: Soft, mild abdominal discomfort no rebound or guarding. Musculoskeletal: No clubbing, cyanosis or edema bilaterally. Full range of motion without deformity, +2 peripheral pulses in all extremities. Skin: Skin color, texture, turgor normal. No rashes or lesions. Neurologic: Neurovascularly intact without any focal sensory/motor deficits. Cranial nerves: II-XII intact, grossly non-focal. Psychiatric: Alert and oriented, thought content appropriate, normal insight. DATA: CBC: Recent Labs 04/07/24 0453 WBC 15.4* RBC 4.45 HGB 12.9* HCT 37.5* MCV 84.3 RDW 13.6 PLT 552* BMP: Recent Labs 04/07/24 0453 NA 130* K 3.4* CL 96* CO2 23 BUN 25* CREATININE 0.78 GLUCOSE 93 CALCIUM 9.6 ANIONGAP 11 LIVER PROFILE: Recent Labs 04/07/24 0453 AST 28 ALT 6 BILITOT 0.6 ALKPHOS 103 PROT 6.6 PT/INR: No results for input(s): PROTIME, INR in the last 72 hours. CARDIAC ENZYMES: No results for input(s): TROPONINI in the last 72 hours. Procalcitonin: No results found for: PROCAL Urine Culture: Results for orders placed or performed during the hospital encounter of 02/12/23 Urine culture Collection Time: 02/14/23 1:48 PM Specimen: Urine, Clean Catch Result Value Ref Range Urine Culture >100,000 CFU/mL Proteus mirabilis (A) Susceptibility Proteus mirabilis - BROTH MICRODILUTION Amoxicillin / Clavulanate <=2 Susceptible ug/ml Ampicillin <=2 Susceptible ug/ml Ampicillin / Sulbactam <=2 Susceptible ug/ml Aztreonam <=1 Susceptible ug/ml Cefazolin <=4 Susceptible ug/ml Cefepime <=1 Susceptible ug/ml Ceftriaxone <=1 Susceptible ug/ml Ciprofloxacin <=0.25 Susceptible ug/ml Gentamicin <=1 Susceptible ug/ml Meropenem <=0.25 Susceptible ug/ml Nitrofurantoin Resistant Piperacillin / Tazobactam <=4 Susceptible ug/ml Trimethoprim / Sulfamethoxazole <=20 Susceptible ug/ml COVID-19 PCR: No results for input(s): COVID19 in the last 72 hours. I reviewed: [x] laboratory results [x] radiographic results At the time of today's encounter. Pt was advised of the results. IMPRESSION: Left hydroureter and bladder wall thickening with abdominal pain Benign prostatic hypertrophy-continue alfuzosin Bilateral nonobstructing renal calculi Possible UTI-cover with ceftriaxone Asthma-albuterol as needed GERD Hyperlipidemia-continue atorvastatin Sleep apnea, noncompliant with CPAP Anxiety-continue sertraline Hypothyroidism-continue levothyroxine Medical Decision Making: -83-year-old male admitted from a halfway with history of altered mental state but on admission appears awake alert oriented x 4 Patient complains of abdominal discomfort and a CT of the abdomen done shows bladder wall thickening and left hydroureter with some nonobstructing renal calculi. He has been following up with urology service as outpatient and has refused cystoscopy in the past . He is unsure of his CODE STATUS and would like to have me leave it at full code, he does follow-up with palliative care in the halfway so would get a palliative consult Discussed with the ER physician and agree with inpatient admission Will place Schwartz catheter, urology consult and cover UTI with ceftriaxone and get a urine culture Will also get a palliative care consult since they were following as outpatient -PT/OT eval/increase activity -am labs, replace lytes prn -vitals per routine -home meds as ordered -DVT prophylaxis: [] Lovenox [] Heparin [] SCDs [x] Encourage ambulation [] Already on Anticoagulation Anticipated Discharge - Date - 04/09/2024 - Location - Skilled Facility - Pending the following -improvement in the hydroureter and urology workup Total time spent (which include face to face and non face to face encounters) : minutes Toxic drug monitoring/narrow therapeutic index drug monitoring : # Drug name : Ceftriaxone # Route administered : IV # Method of monitoring : Daily monitoring Extended Emergency Contact Information Primary Emergency Contact: Harshil Murguia Mobile Relation: Nephew Code status: Full Code -see below for additional orders, further recommendations to follow Orders Placed This Encounter Procedures Urine culture Blood culture Site #1 - Suspected Infection Blood culture Site #2 - Suspected Infection CT abdomen pelvis w contrast Comprehensive metabolic panel CBC auto differential Urinalysis complete with reflex to Culture Lipase Complete Urinalysis Lactic acid with reflex CBC auto differential Basic Metabolic Panel w/ Mg Reflex Adult diet Regular Straight cath if unable to void Vital Signs Notify patient's primary care provider of admission Activity Up With Assistance Full code Initiate Oxygen Therapy Protocol Admit to inpatient Please forward a copy of this H&P to the patient's PCP. Thank you. [facility] Doroteo Gong : 1940 Primary Care Physician: Roopa Madera MD The patient and/or family/surrogate voluntarily agreed to participate in ACP services. Patient s cognitive capacity: Alert and oriented Code Status: [x] [FULL CODE - Continue all advanced life support: CPR,intubation,invasive procedures] [_] [DNR-CCA - DO NOT do CPR, intubation] [_] [DNR-JOB CHECKER - Comfort care only] [_] DNR form [was/was not] signed Summary of discussion: The patient health care POA/ surrogate is the following: He is not sure, but thinks it could be his nephew Harshil. [Condition that instigated the ACP on this DOS, relevant PMH, functional status, goals of care, and whom this was discussed with including names and relationship to the patient, and any relevant advance care documentation discussion] I answered all the patient/family questions that I could within the range and scope of the current medical situation. We discussed the medical conditions, risks, benefits, outcomes, and goals of care at this time for the patient's medical issues at hand in the face of the patient's chronic issues and current presentation. Total time spent: minutes were spent discussing the patient's resuscitation status, advance care planning, and end of life care, with patient and/or family/surrogate. Ann-Marie Rodriguez MD Acute care [facility] 04/07/2024, 5:45 PM [facility] 04-07-2024 History and physical note Attending History and Physical Admit Date: 04/07/2024 PCP: Roopa Madera MD CHIEF COMPLAINT: Abdominal pain Reason for Admission: Hydronephrosis History Obtained From: patient HISTORY OF PRESENT ILLNESS: Dortoeo is a 83 y.o. male with past medical history below who presents with chief complaint listed above. Doroteo Gong is a 83 y.o. male with past medical history significant for UTIs, nephrolithiasis, GERD, chronic pain, pulmonary hypertension, interstitial lung disease, RICKY, COPD with asthma who presents to the emergency department per EMS with reported history of altered mental status. He arrived here from [facility], because he was pressing the call light too many times SNF reported the patient was confused, however patient was alert and oriented x 4 for EMS with stable vital signs He complained of abdominal discomfort since today morning which is diffuse and associated with nausea but no vomiting.. Denies any melena or hematochezia. He has had follow-ups with Dr. Ordonez from urology service and has been refusing cystoscopy. . He did have a CT scan of the abdomen today which showed irregular bladder wall thickening along with some obstructive uropathy with unable to exclude bladder wall malignancy and left hydroureter. CT also suggested gaseous distention of the large bowel suggestive of constipation and bilateral nonobstructing renal calculi. Hence the inpatient admission Has multiple UTIs in the past and had a Schwartz catheter which was removed couple of weeks ago. And he has refused cystoscopy for surveillance Denies chest pain, sob, , diarrhea, constipation, fevers, or chills. Will admit for further evaluation and management. Past Medical History: Past Medical History: Diagnosis Date Arthritis knees hands Asthma Chronic pain GERD (gastroesophageal reflux disease) Hyperlipidemia Kidney stone 2012 Prostate disease Sleep apnea Thyroid disease Past Surgical History: Past Surgical History: Procedure Laterality Date APPENDECTOMY BACK SURGERY 2014 slipped disc CATARACT EXTRACTION CHOLECYSTECTOMY JOINT REPLACEMENT Right 2014 LITHOTRIPSY 3-4 times OTHER SURGICAL HISTORY hemorroid removed OTHER SURGICAL HISTORY Left 12/19/2017 stent placement, cystoscopy and pyelogram, Laser Lithotripsy SINUS SURGERY Social History: Social History Socioeconomic History Marital status: Single Spouse name: Not on file Number of children: Not on file Years of education: Not on file Highest education level: Not on file Occupational History Not on file Tobacco Use Smoking status: Never Smokeless tobacco: Never Vaping Use Vaping status: Never Used Substance and Sexual Activity Alcohol use: No Drug use: No Sexual activity: Not on file Other Topics Concern Not on file Social History Narrative Not on file Social Drivers of Health Financial Resource Strain: Not on file Food Insecurity: Not on file Transportation Needs: Unmet Transportation Needs (12/31/2022) PRAPARE - Transportation Lack of Transportation (Medical): Yes Lack of Transportation (Non-Medical): Yes Physical Activity: Not on file Stress: Not on file Social Connections: Not on file Intimate Partner Violence: Not At Risk (04/07/2024) Humiliation, Afraid, Rape, and Kick questionnaire Fear of Current or Ex-Partner: No Emotionally Abused: No Physically Abused: No Sexually Abused: No Housing Stability: Unknown (12/31/2022) Housing Stability Vital Sign Unable to Pay for Housing in the Last Year: No Number of Places Lived in the Last Year: Not on file Unstable Housing in the Last Year: No Family History: Family History Problem Relation Name Age of Onset Heart failure Mother Diabetes Mother Medications Prior to Admission: No current facility-administered medications on file prior to encounter. Current Outpatient Medications on File Prior to Encounter Medication Sig Dispense Refill acetaminophen (Tylenol) 325 MG tablet Take 650 mg by mouth. albuterol 108 (90 Base) MCG/ACT inhaler Inhale 2 puffs every 6 hours as needed. alfuzosin ER (Uroxatral) 10 MG 24 hr tablet Take 1 tablet (10 mg) by mouth daily. 90 tablet 3 atorvastatin (Lipitor) 10 MG tablet Take 10 mg by mouth daily. carboxymethylcellulose (Refresh Plus) 0.5 % ophthalmic solution Administer 1 drop into both eyes if needed for dry eyes. cyanocobalamin ([employer] Vitamin B-12) 1000 MCG tablet Take 1,000 mcg by mouth. escitalopram (Lexapro) 10 MG tablet Take 10 mg by mouth daily. finasteride (Proscar) 5 MG tablet Take 1 tablet (5 mg) by mouth daily. 90 tablet 3 fluticasone (Flovent) 110 MCG/ACT inhaler Inhale 2 puffs in the morning and 2 puffs before bedtime. hydroCHLOROthiazide (HYDRODiuril) 25 MG tablet Take 25 mg by mouth every morning. ipratropium (Atrovent) 0.06 % nasal spray Administer 2 sprays into affected nostril(s). levothyroxine (Synthroid, Levoxyl) 50 MCG tablet Take 50 mcg by mouth in the morning. magnesium hydroxide (Milk of Magnesia) 800 MG/5ML suspension Take by mouth Daily as needed for constipation. omeprazole (PriLOSEC) [address] capsule Take 20 mg by mouth in the morning. ondansetron ODT (Zofran-ODT) 4 MG disintegrating tablet Take 4 mg by mouth every 8 hours as needed for nausea or vomiting. polyethylene glycol, PEG, 3350 (Glycolax) 17 GM/SCOOP powder Take by mouth. simvastatin (Zocor) 20 MG tablet Take 20 mg by mouth in the morning. Allergies: Allergies Allergen Reactions Allopurinol Unknown Erythromycin Unknown Penicillins Unknown Patient tolerates cephalosporins Sulfa Antibiotics Unknown Pt does not know reaction Tetracyclines & Related Unknown Levofloxacin Other jittery Ciprofloxacin Unknown Paroxetine Other Fatigue REVIEW OF SYSTEMS: Constitutional: Negative for fever, chills, positive for activity change HEENT: Negative for congestion, postnasal drip and sneezing. , Has hearing aids but does not have them with him Eyes: Negative for itching and visual disturbance. Respiratory: Negative for apnea, cough, choking, chest tightness, shortness of breath, wheezing and stridor. Cardiovascular: Negative for chest pain. Gastrointestinal: Positive for nausea and vomiting, and positive for abdominal discomfort genitourinary: Negative for dysuria, frequency and flank pain. Denies any hematuria Musculoskeletal: Negative for myalgias and joint swelling. Skin: Negative for rash. Neurological: Negative for dizziness, tremors, seizures, syncope, facial asymmetry, speech difficulty, weakness, numbness and headaches. Psychiatric/Behavioral: Negative for suicidal ideas, behavioral problems, self-injury and dysphoric mood. Vitals: BP 93/64 (BP Location: Left arm, Patient Position: Lying) Pulse 114 Temp 36.9 C (98.4 F) (Temporal) Resp 16 SpO2 94% BMI Classification: Morbidly Obese (>40.0) Pulse Ox: SpO2 Av.5 % Min: 92 % Max: 100 % Supplemental O2: O2 Flow Rate (L/min): 2 L/min PHYSICAL EXAM: General appearance: No apparent distress, appears stated age and cooperative with exam. HEENT: Normal cephalic, atraumatic without obvious deformity. Pupils equal, round, and reactive to light. Extra ocular muscles intact. Conjunctivae/corneas clear. Neck: Supple, with full range of motion. Respiratory: Diminished breath sounds bilaterally aterally without Rales/Wheezes/Rhonchi. Cardiovascular: Regular rate and rhythm with normal S1/S2 without murmurs, rubs or gallops. Abdomen: Soft, mild abdominal discomfort no rebound or guarding. Musculoskeletal: No clubbing, cyanosis or edema bilaterally. Full range of motion without deformity, +2 peripheral pulses in all extremities. Skin: Skin color, texture, turgor normal. No rashes or lesions. Neurologic: Neurovascularly intact without any focal sensory/motor deficits. Cranial nerves: II-XII intact, grossly non-focal. Psychiatric: Alert and oriented, thought content appropriate, normal insight. DATA: CBC: Recent Labs 04/07/24 0453 WBC 15.4* RBC 4.45 HGB 12.9* HCT 37.5* MCV 84.3 RDW 13.6 PLT 552* BMP: Recent Labs 04/07/24 0453 NA 130* K 3.4* CL 96* CO2 23 BUN 25* CREATININE 0.78 GLUCOSE 93 CALCIUM 9.6 ANIONGAP 11 LIVER PROFILE: Recent Labs 04/07/24 0453 AST 28 ALT 6 BILITOT 0.6 ALKPHOS 103 PROT 6.6 PT/INR: No results for input(s): PROTIME, INR in the last 72 hours. CARDIAC ENZYMES: No results for input(s): TROPONINI in the last 72 hours. Procalcitonin: No results found for: PROCAL Urine Culture: Results for orders placed or performed during the hospital encounter of 02/12/23 Urine culture Collection Time: 02/14/23 1:48 PM Specimen: Urine, Clean Catch Result Value Ref Range Urine Culture >100,000 CFU/mL Proteus mirabilis (A) Susceptibility Proteus mirabilis - BROTH MICRODILUTION Amoxicillin / Clavulanate <=2 Susceptible ug/ml Ampicillin <=2 Susceptible ug/ml Ampicillin / Sulbactam <=2 Susceptible ug/ml Aztreonam <=1 Susceptible ug/ml Cefazolin <=4 Susceptible ug/ml Cefepime <=1 Susceptible ug/ml Ceftriaxone <=1 Susceptible ug/ml Ciprofloxacin <=0.25 Susceptible ug/ml Gentamicin <=1 Susceptible ug/ml Meropenem <=0.25 Susceptible ug/ml Nitrofurantoin Resistant Piperacillin / Tazobactam <=4 Susceptible ug/ml Trimethoprim / Sulfamethoxazole <=20 Susceptible ug/ml COVID-19 PCR: No results for input(s): COVID19 in the last 72 hours. I reviewed: [x] laboratory results [x] radiographic results At the time of today's encounter. Pt was advised of the results. IMPRESSION: Left hydroureter and bladder wall thickening with abdominal pain Benign prostatic hypertrophy-continue alfuzosin Bilateral nonobstructing renal calculi Possible UTI-cover with ceftriaxone Asthma-albuterol as needed GERD Hyperlipidemia-continue atorvastatin Sleep apnea, noncompliant with CPAP Anxiety-continue sertraline Hypothyroidism-continue levothyroxine Medical Decision Making: -83-year-old male admitted from a halfway with history of altered mental state but on admission appears awake alert oriented x 4 Patient complains of abdominal discomfort and a CT of the abdomen done shows bladder wall thickening and left hydroureter with some nonobstructing renal calculi. He has been following up with urology service as outpatient and has refused cystoscopy in the past . He is unsure of his CODE STATUS and would like to have me leave it at full code, he does follow-up with palliative care in the halfway so would get a palliative consult Discussed with the ER physician and agree with inpatient admission Will place Schwartz catheter, urology consult and cover UTI with ceftriaxone and get a urine culture Will also get a palliative care consult since they were following as outpatient -PT/OT eval/increase activity -am labs, replace lytes prn -vitals per routine -home meds as ordered -DVT prophylaxis: [] Lovenox [] Heparin [] SCDs [x] Encourage ambulation [] Already on Anticoagulation Anticipated Discharge - Date - 04/09/2024 - Location - Skilled Facility - Pending the following -improvement in the hydroureter and urology workup Total time spent (which include face to face and non face to face encounters) : minutes Toxic drug monitoring/narrow therapeutic index drug monitoring : # Drug name : Ceftriaxone # Route administered : IV # Method of monitoring : Daily monitoring Extended Emergency Contact Information Primary Emergency Contact: Harshil Murguia Mobile Relation: Nephew Code status: Full Code -see below for additional orders, further recommendations to follow Orders Placed This Encounter Procedures Urine culture Blood culture Site #1 - Suspected Infection Blood culture Site #2 - Suspected Infection CT abdomen pelvis w contrast Comprehensive metabolic panel CBC auto differential Urinalysis complete with reflex to Culture Lipase Complete Urinalysis Lactic acid with reflex CBC auto differential Basic Metabolic Panel w/ Mg Reflex Adult diet Regular Straight cath if unable to void Vital Signs Notify patient's primary care provider of admission Activity Up With Assistance Full code Initiate Oxygen Therapy Protocol Admit to inpatient Please forward a copy of this H&P to the patient's PCP. Thank you. [facility] Doroteo Gong : 1940 Primary Care Physician: Roopa Madera MD The patient and/or family/surrogate voluntarily agreed to participate in ACP services. Patient s cognitive capacity: Alert and oriented Code Status: [x] [FULL CODE - Continue all advanced life support: CPR,intubation,invasive procedures] [_] [DNR-CCA - DO NOT do CPR, intubation] [_] [DNR-JOB CHECKER - Comfort care only] [_] DNR form [was/was not] signed Summary of discussion: The patient health care POA/ surrogate is the following: He is not sure, but thinks it could be his nephew Harshil. [Condition that instigated the ACP on this DOS, relevant PMH, functional status, goals of care, and whom this was discussed with including names and relationship to the patient, and any relevant advance care documentation discussion] I answered all the patient/family questions that I could within the range and scope of the current medical situation. We discussed the medical conditions, risks, benefits, outcomes, and goals of care at this time for the patient's medical issues at hand in the face of the patient's chronic issues and current presentation. Total time spent: minutes were spent discussing the patient's resuscitation status, advance care planning, and end of life care, with patient and/or family/surrogate. Ann-Marie Rodriguez MD Acute care [facility] 04/07/2024, 5:45 PM documented in this encounter [facility] 04-07-2024 Note Attending History an d Physical Admit Date: 04/07/2024 PCP: Roopa Madera MD CHIEF COMPLAINT: Abdominal pain Reason for Admission: Hydronephrosis History Obtained From: patient HISTORY OF PRESENT ILLNESS: Doroteo is a 83 y.o. male with past medical history below who presents with chief complaint listed above. Doroteo Gong is a 83 y.o. male with past medical history significant for UTIs, nephrolithiasis, GERD, chronic pain, pulmonary hypertension, interstitial lung disease, RICKY, COPD with asthma who presents to the emergency department per EMS with reported history of altered mental status. He arrived here from [facility], because he was pressing the call light too many times SNF reported the patient was confused, however patient was alert and oriented x 4 for EMS with stable vital signs He complained of abdominal discomfort since today morning which is diffuse and associated with nausea but no vomiting.. Denies any melena or hematochezia. He has had follow-ups with Dr. Ordonez from urology service and has been refusing cystoscopy. . He did have a CT scan of the abdomen today which showed irregular bladder wall thickening along with some obstructive uropathy with unable to exclude bladder wall malignancy and left hydroureter. CT also suggested gaseous distention of the large bowel suggestive of constipation and bilateral nonobstructing renal calculi. Hence the inpatient admission Has multiple UTIs in the past and had a Schwartz catheter which was removed couple of weeks ago. And he has refused cystoscopy for surveillance Denies chest pain, sob, , diarrhea, constipation, fevers, or chills. Will admit for further evaluation and management. Past Medical History: Past Medical History: Diagnosis Date Arthritis knees hands Asthma Chronic pain GERD (gastroesophageal reflux disease) Hyperlipidemia Kidney stone 2012 Prostate disease Sleep apnea Thyroid disease Past Surgical History: Past Surgical History: Procedure Laterality Date APPENDECTOMY BACK SURGERY 2014 slipped disc CATARACT EXTRACTION CHOLECYSTECTOMY JOINT REPLACEMENT Right 2014 LITHOTRIPSY 3-4 times OTHER SURGICAL HISTORY hemorroid removed OTHER SURGICAL HISTORY Left 12/19/2017 stent placement, cystoscopy and pyelogram, Laser Lithotripsy SINUS SURGERY Social History: Social History Socioeconomic History Marital status: Single Spouse name: Not on file Number of children: Not on file Years of education: Not on file Highest education level: Not on file Occupational History Not on file Tobacco Use Smoking status: Never Smokeless tobacco: Never Vaping Use Vaping status: Never Used Substance and Sexual Activity Alcohol use: No Drug use: No Sexual activity: Not on file Other Topics Concern Not on file Social History Narrative Not on file Social Drivers of Health Financial Resource Strain: Not on file Food Insecurity: Not on file Transportation Needs: Unmet Transportation Needs (12/31/2022) PRAPARE - Transportation Lack of Transportation (Medical): Yes Lack of Transportation (Non-Medical): Yes Physical Activity: Not on file Stress: Not on file Social Connections: Not on file Intimate Partner Violence: Not At Risk (04/07/2024) Humiliation, Afraid, Rape, and Kick questionnaire Fear of Current or Ex-Partner: No Emotionally Abused: No Physically Abused: No Sexually Abused: No Housing Stability: Unknown (12/31/2022) Housing Stability Vital Sign Unable to Pay for Housing in the Last Year: No Number of Places Lived in the Last Year: Not on file Unstable Housing in the Last Year: No Family History: Family History Problem Relation Name Age of Onset Heart failure Mother Diabetes Mother Medications Prior to Admission: No current facility-administered medications on file prior to encounter. Current Outpatient Medications on File Prior to Encounter Medication Sig Dispense Refill acetaminophen (Tylenol) 325 MG tablet Take 650 mg by mouth. albuterol 108 (90 Base) MCG/ACT inhaler Inhale 2 puffs every 6 hours as needed. alfuzosin ER (Uroxatral) 10 MG 24 hr tablet Take 1 tablet (10 mg) by mouth daily. 90 tablet 3 atorvastatin (Lipitor) 10 MG tablet Take 10 mg by mouth daily. carboxymethylcellulose (Refresh Plus) 0.5 % ophthalmic solution Administer 1 drop into both eyes if needed for dry eyes. cyanocobalamin ([employer] Vitamin B-12) 1000 MCG tablet Take 1,000 mcg by mouth. escitalopram (Lexapro) 10 MG tablet Take 10 mg by mouth daily. finasteride (Proscar) 5 MG tablet Take 1 tablet (5 mg) by mouth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 SOAPP given no SOAPP score: Red Flags for Abuse or Diversion: Results/Verification of Data Review Objective data reviewed: reviewed provider notes from 03-18-2023 to date Documentation in Support of Terminal Illness Is patient hospice appropriate? no documented in this encounter [facility] 07-12-2023 Telephone encounter Note Name of Caller: Doroteo Contact Reason for Appointment: pt is asking if he can be seen sooner at the same office. Please assist. Thank you Office Name: urology [facility] 07-12-2023 Miscellaneous Notes Name of Caller: Doroteo Contact Reason for Appointment: pt is asking if he can be seen sooner at the same office. Please assist. Thank you Office Name: urology Pt lvm wanting d/t/l of appt. I called the pt and the voice mail box was full, so unable to lvm documented in this encounter [facility] 07-03-2023 Telephone encounter Note Pt lvm wanting d/t/l of appt. I called the pt and the voice mail box was full, so unable to lvm [facility] 07-03-2023 Miscellaneous Notes Pt lvm wanting d/t/l of appt. I called the pt and the voice mail box was full, so unable to lvm documented in this encounter [facility] 05-31-2023 History of Present illness Narrative Images from the original note were not included. [facility] Palliative Care Site of Care: [facility] Chief Complaint: Doroteo Gong is a 82 y.o. male with chief complaint of No chief complaint on file.. Assessment/Plan Goals of care Pt is alert and oriented x3 Introduced myself and my role in his care. Explained palliative medicine and how we help with goals and symptoms of chronic disease Full code - did explain to him what a full code is and the potential complications that can arise with the use of CPR. He verbalizes understanding and wishes to remain a full code Goals - he would like to look into getting back home with care givers coming to his home. He is a vet - I will ask SW if he is connected to receive benefits. Left knee pain Using tylenol and tramadol Finds good relief with the current regimen Working with PT/OT 2x week to regain strength Anxiety Is worried he will not get back to him home He understands he would need a caregiver to help him with his needs in the home Reports is a vet but uncertain if he is connected. Will ask SW to look into this. He has a nephew as his only relative - he lives in [facility] At risk for constipation Debility and use of pain medication Miralax po q day prn available to him Debility Working with PT/OT few times a week Sitting in wheelchair Transfers with a 1 assist Discussed the plan of care including addressing questions and concerns with patient 70 minutes in counseling and coordination of care at the bedside regarding goals of care, symptom management, and see above. Follow-up: 6-8 weeks I have discussed the patient's case and plan of care with my collaborating physician Dr. Thomas. Subjective: HPI: 82 year old male in [facility] for therapy seen today in his room. He is sitting up to the wheelchair just finishing his breakfast. He has eaten 90% of meal and drank 100% fluids. I introduced myself and my role in his care. I have explained palliative medicine and the reason for this consult. He shared his knee pains that he has been dealing with for years now. He stated the tylenol and tramadol are effective pain control for him. He reports good bowel movements but will have intermittent constipation. Uses OTC Miralax. He shared his anxiety regarding getting back to his home. He is worried and tells me he looses sleep over not being able to return. He stated he is a vet - unsure if he is connected or not. Will ask SW for help on this to see if there is a plan for him to be able to return home. He is willing to have caregivers come into his home - also uncertain what the finances look like should he require caregiver supports for more than a few hours a day. He does have 1 nephew but he lives in [facility] and not able to live up here with him per pt. I will reach to him to seek more information. He has no sob with talking - currently does not have O2 on and saturating 98%. Appetite is good - had slept well at home but worries a lot here and has not had good sleep. Message left for Harshil pts nephew. Pain Assessment (If Pain Scale >0) Description: aching Nonverbal patients: Grimacing Duration: year(s) Frequency:Daily and Irregularly Location: left knee Alleviating Factors: pain medication Exacerbating Factors: unable to associate with any factor Effect:Interference with Activities Current Symptom Management Medications: tramadol Non-Opiate Adjuvants: Tylenol Non-Medication Treatments: Physical Therapy Previous Medications Trialed: Referrals/Second Opinions if >50 MED: Patient recently discharged from: N/A Nutrition: Weight stable and Good appetite Functional Status: Dependent for ADLs Falls: No Current Interventions: PT and OT Current Assistive Devices: w/c and walker ROS: See palliative care ROS/ESAS below, all other ROS are negative except as noted. Arabi Symptom Assessment Score Arabi Score Pain Score 3 Tiredness Score 0 Nausea Score 0 Depression Score 0 Anxiety Score 1-2 Drowsiness Score 0 Anorexia Score (0= eating well,10= not eating) 0 Wellbeing Score (10= worst sense of well-being) 0 Constipation 0 Dyspnea Score (0= no shortness of breath) 0 Assessed By: patient Goals of care Goals of care: return home with caregiver help, continue current medical tx Code status: full code Advance directives: Health Care Proxy Surrogate: Extended Family Prognosis: unknown Spiritual assessment: No spiritual distress identified Bereavement and grief: Grief Issues Not Identified Social history: Marital status: single, never Children: 0 Living status: alone Work history: worked in a [employer] status: 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 Discussion participants: pt and provider Interventions reviewed: CPR and life supports Advance Care Planning Documents: Healthcare Power of Aqua Ammonia Operator: Yes Financial Power of Aqua Ammonia Operator: No Living Will: Yes Code Status: Full Code 15 minutes of this encounter was spent in discussion of goals and coordination of care as documented above. Past Medical History: Diagnosis Date Arthritis knees hands Asthma Chronic pain GERD (gastroesophageal reflux disease) Hyperlipidemia Kidney stone 2012 Prostate disease Sleep apnea Thyroid disease Past Surgical History: Procedure Laterality Date APPENDECTOMY BACK SURGERY 2014 slipped disc CATARACT EXTRACTION CHOLECYSTECTOMY JOINT REPLACEMENT Right 2014 LITHOTRIPSY 3-4 times OTHER SURGICAL HISTORY hemorroid removed OTHER SURGICAL HISTORY Left 12/19/2017 stent placement, cystoscopy and pyelogram, Laser Lithotripsy SINUS SURGERY Family History Problem Relation Name Age of Onset Heart failure Mother Diabetes Mother Social History Tobacco Use Smoking status: Never Smokeless tobacco: Never Vaping Use Vaping Use: Never used Substance Use Topics Alcohol use: No Drug use: No Outpatient Medications Prior to Visit Medication Sig Dispense Refill acetaminophen (Tylenol) 325 MG tablet Take 650 mg by mouth. albuterol 108 (90 Base) MCG/ACT inhaler Inhale 2 puffs every 6 hours as needed. alfuzosin ER (Uroxatral) 10 MG 24 hr tablet Take 1 tablet (10 mg) by mouth daily. 90 tablet 3 atorvastatin (Lipitor) 10 MG tablet Take 10 mg by mouth daily. carboxymethylcellulose (Refresh Plus) 0.5 % ophthalmic solution Administer 1 drop into both eyes if needed for dry eyes. cyanocobalamin ([employer]S Vitamin B-12) 1000 MCG tablet Take 1,000 mcg by mouth. escitalopram (Lexapro) 10 MG tablet Take 10 mg by mouth daily. finasteride (Proscar) 5 MG tablet Take 1 tablet (5 mg) by mouth daily. 90 tablet 3 fluticasone (Flovent) 110 MCG/ACT inhaler Inhale 2 puffs in the morning and 2 puffs before bedtime. hydroCHLOROthiazide (HYDRODiuril) 25 MG tablet Take 25 mg by mouth every morning. ipratropium (Atrovent) 0.06 % nasal spray Administer 2 sprays into affected nostril(s). levothyroxine (Synthroid, Levoxyl) 50 MCG tablet Take 50 mcg by mouth in the morning. magnesium hydroxide (Milk of Magnesia) 800 MG/5ML suspension Take by mouth Daily as needed for constipation. omeprazole (PriLOSEC) [address] capsule Take 20 mg by mouth in the morning. ondansetron ODT (Zofran-ODT) 4 MG disintegrating tablet Take 4 mg by mouth every 8 hours as needed for nausea or vomiting. polyethylene glycol, PEG, 3350 (Glycolax) 17 GM/SCOOP powder Take by mouth. simvastatin (Zocor) 20 MG tablet Take 20 mg by mouth in the morning. No facility-administered medications prior to visit. Allergies Allergen Reactions Allopurinol Unknown Erythromycin Unknown Penicillins Unknown Patient tolerates cephalosporins Sulfa Antibiotics Unknown Pt does not know reaction Tetracyclines & Related Unknown Levofloxacin Other jittery Ciprofloxacin Unknown Paroxetine Other Fatigue Objective: 161/80, 74, 18, 98% room air Physical Exam Vitals reviewed. Constitutional: General: He is awake. Appearance: He is well-developed. HENT: Head: Atraumatic. Right Ear: External ear normal. Left Ear: External ear normal. Nose: Nose normal. Mouth/Throat: Mouth: Mucous membranes are moist. Pharynx: Oropharynx is clear. Eyes: General: Right eye: No discharge. Left eye: No discharge. Conjunctiva/sclera: Conjunctivae normal. Cardiovascular: Rate and Rhythm: Normal rate. Pulses: Normal pulses. Pulmonary: Effort: Pulmonary effort is normal. Breath sounds: Normal breath sounds. Abdominal: General: Bowel sounds are normal. Palpations: Abdomen is soft. Comments: 4 bowel sounds, reports daily bowel movements Musculoskeletal: Cervical back: Normal range of motion. Right lower leg: No edema. Left lower leg: No edema. Skin: General: Skin is warm and dry. Neurological: Mental Status: He is alert and oriented to person, place, and time. Psychiatric: Mood and Affect: Mood normal. Behavior: Behavior normal. Behavior is cooperative. Thought Content: Thought content normal. Judgment: Judgment normal. Opiate Prescribing (If prescribing, add dot phrase .OPIATEPRESCRIBING) Opiate Risk Assessment Tool SOAPP given no SOAPP score: Red Flags for Abuse or Diversion: Results/Verification of Data Review Objective data reviewed: reviewed provider notes from 03-18-2023 to date Documentation in Support of Terminal Illness Is patient hospice appropriate? no documented in this encounter [facility] 05-21-2023 History of Present illness Narrative Images from the original note were not included. [facility] Pulmonary Medicine [address] [facility] [address] Dept: [phone] Dept Loc: [phone] Date of Service: 05/21/2023 Visit type: An Established patient Chief Complaint/Reason for Referral: Surgery clearance SUBJECTIVE History of Present Illness: Doroteo Gong ( 1940) is a 82 y.o. male patient, with significant PMH of COPD with asthma, obstructive sleep apnea (intolerant of PAP), nocturnal oxygen, pulmonary hypertension, interstitial lung disease, and GERD, being seen for surgery clearance. Doroteo reports he is seeking surgical clearance to undergo knee replacement surgery. He says he has not yet seen his surgeon, but will be seeing Dr. Leigh later this week to discuss his wishes to pursue surgery for left knee replacement. He reports his dyspnea has been stable. Does have some nasal drainage, but denies SOB. Reports he had COVID -19 in the nursing facility about 1-2 months ago, but symptoms were managed outpatient. Functional ability is limited, he says he has been pretty confined to a wheelchair for the last 3 years due to hip and knee issues. Transfers in and out of the wheel chair are difficult. He reports he currently takes Flovent BID as needed, and usually uses albuterol BID which he feels does help his breathing. He is intolerant of PAP therapy, so he uses supplemental O2 while asleep currently. He was previously referred to cardiology during his last OV, but he has not yet been seen. OBJECTIVE MEDICAL HISTORY: Past Medical History: Diagnosis Date Arthritis knees hands Asthma Chronic pain GERD (gastroesophageal reflux disease) Hyperlipidemia Kidney stone 2012 Prostate disease Sleep apnea Thyroid disease SURGICAL HISTORY: Past Surgical History: Procedure Laterality Date APPENDECTOMY BACK SURGERY 2013 slipped disc CATARACT EXTRACTION CHOLECYSTECTOMY JOINT REPLACEMENT Right 2013 LITHOTRIPSY 3-4 times OTHER SURGICAL HISTORY hemorroid removed OTHER SURGICAL HISTORY Left 12/19/2017 stent placement, cystoscopy and pyelogram, Laser Lithotripsy SINUS SURGERY ALLERGIES: Allergies Allergen Reactions Allopurinol Unknown Erythromycin Unknown Penicillins Unknown Patient tolerates cephalosporins Sulfa Antibiotics Unknown Pt does not know reaction Tetracyclines & Related Unknown Levofloxacin Other jittery Ciprofloxacin Unknown Paroxetine Other Fatigue MEDICATIONS: Current Outpatient Medications: acetaminophen (Tylenol) 325 MG tablet, Take 650 mg by mouth., Disp: , Rfl: albuterol 108 (90 Base) MCG/ACT inhaler, Inhale 2 puffs every 6 hours as needed., Disp: , Rfl: alfuzosin ER (Uroxatral) 10 MG 24 hr tablet, Take 1 tablet (10 mg) by mouth daily., Disp: 90 tablet, Rfl: 3 atorvastatin (Lipitor) 10 MG tablet, Take 10 mg by mouth daily., Disp: , Rfl: carboxymethylcellulose (Refresh Plus) 0.5 % ophthalmic solution, Administer 1 drop into both eyes if needed for dry eyes., Disp: , Rfl: cyanocobalamin ([employer] Vitamin B-12) 1000 MCG tablet, Take 1,000 mcg by mouth., Disp: , Rfl: escitalopram (Lexapro) 10 MG tablet, Take 10 mg by mouth daily., Disp: , Rfl: finasteride (Proscar) 5 MG tablet, Take 1 tablet (5 mg) by mouth daily., Disp: 90 tablet, Rfl: 3 hydroCHLOROthiazide (HYDRODiuril) 25 MG tablet, Take 25 mg by mouth every morning., Disp: , Rfl: ipratropium (Atrovent) 0.06 % nasal spray, Administer 2 sprays into affected nostril(s)., Disp: , Rfl: levothyroxine (Synthroid, Levoxyl) 50 MCG tablet, Take 50 mcg by mouth in the morning., Disp: , Rfl: magnesium hydroxide (Milk of Magnesia) 800 MG/5ML suspension, Take by mouth Daily as needed for constipation., Disp: , Rfl: omeprazole (PriLOSEC) [address] capsule, Take 20 mg by mouth in the morning., Disp: , Rfl: ondansetron ODT (Zofran-ODT) 4 MG disintegrating tablet, Take 4 mg by mouth every 8 hours as needed for nausea or vomiting., Disp: , Rfl: polyethylene glycol, PEG, 3350 (Glycolax) 17 GM/SCOOP powder, Take by mouth., Disp: , Rfl: simvastatin (Zocor) 20 MG tablet, Take 20 mg by mouth in the morning., Disp: , Rfl: fluticasone (Flovent) 110 MCG/ACT inhaler, Inhale 2 puffs in the morning and 2 puffs before bedtime., Disp: , Rfl: SOCIAL HISTORY: Social History Tobacco Use Smoking status: Never Smokeless tobacco: Never Substance Use Topics Alcohol use: No FAMILY HISTORY: Family History Problem Relation Name Age of Onset Heart failure Mother Diabetes Mother REVIEW OF SYSTEMS: Review of Systems Constitutional: Positive for activity change and fatigue. HENT: Positive for congestion. Nasal congestion Respiratory: Positive for shortness of breath. Negative for cough, chest tightness and wheezing. Cardiovascular: Positive for leg swelling. Negative for chest pain. Musculoskeletal: Positive for arthralgias, back pain and gait problem. Negative for myalgias. Skin: Negative for color change and rash. Psychiatric/Behavioral: The patient is not nervous/anxious. All other systems reviewed and are negative. VITAL SIGNS: BP 106/63 Pulse 78 Temp 36.6 C (97.8 F) (Temporal) Ht 5' (1.524 m) SpO2 93% BMI 30.58 kg/m PHYSICAL EXAM: Physical Exam Vitals reviewed. Constitutional: General: He is not in acute distress. Appearance: He is obese. Comments: Sitting in wheelchair HENT: Head: Normocephalic and atraumatic. Nose: Nose normal. Eyes: Pupils: Pupils are equal, round, and reactive to light. Cardiovascular: Rate and Rhythm: Normal rate and regular rhythm. Heart sounds: Normal heart sounds. No murmur heard. No friction rub. Pulmonary: Effort: Pulmonary effort is normal. No respiratory distress. Breath sounds: Decreased air movement present. No stridor. No wheezing, rhonchi or rales. Musculoskeletal: Right lower leg: Edema (2+) present. Left lower leg: Edema (2+) present. Skin: General: Skin is warm and dry. Capillary Refill: Capillary refill takes less than 2 seconds. Neurological: Mental Status: He is alert and oriented to person, place, and time. Motor: Tremor present. Psychiatric: Thought Content: Thought content normal. DATA REVIEWED: PFT's--01/2021 Units Pred PreDrug Pre%Pred Post Post%Pred %Change FVC L,btps 2.42 1.75 72. 1.92 79. 10. FEV1 L,btps 1.64 1.31 80. 1.45 88. 10. FEV1/FVC (%) % 71. 75. 105. 75. 106. 0. EQT38-23% L/s 1.06 0.98 93. 1.20 114. 23. FEFmax L/s 5.01 4.95 99. 5.40 108. 9. MVV in,btps 77.69 49.76 64. Lung Volumes (Body Box) Units Pred PreDrug Pre%Pred TLC L,btps 4.97 VC L,btps 2.42 IC L,btps 1.77 FRC L,btps 3.21 ERV L,btps 0.66 RV L,btps 2.55 RV/TLC (%) % 51. VTG L,btps RAW H2O/L/s 1.44 SGaw cmH2O/L 0.22 Diffusion (DLCO) Units Pred PreDrug Pre%Pred DLCO ml/min/mmHg,stpd 19.64 11.41 58. DLCOHb ml/min/mmHg,stpd 19.64 11.41 58. VAsb L,btps 4.86 2.63 54. D/VAsb ml/min/mmHg/L,stpd 4.04 4.34 107. D/VAsbHb ml/min/mmHg/L,stpd 4.04 4.34 107. VInsp L 2.02 Hgb g/dl 14.60 COHb % Nitrogen Washout Units Pred PreDrug Pre%Pred TLC L,btps 4.97 4.14 83. VC L,btps 2.42 2.34 97. FRC L,btps 3.21 2.16 67. IC L,btps 1.77 1.98 112. ERV L,btps 0.66 0.36 54. RV L,btps 2.55 1.80 71. RV/TLC (%) % 51. 43. 85. PHYSICIAN INTERPRETATION Mild restrictive ventilatory impairment with moderately decrease in gas Exchange may be compatible with the Dx of restrictive lung disease Total lung Capacity is normal Border line response to BD therapy CT chest--07/07/22 ADDENDUM #1 Additional prone images are now acquired. No dependent pulmonary changes are appreciated. No change from the previous report. ORIGINAL REPORT CLINICAL INFORMATION: Shortness of breath. Interstitial lung disease. 1 mm cuts are obtained through the chest without IV contrast. Dose reduction was employed with automated exposure control. The examination is compared to a previous study dated 10/08/2020. FINDINGS: Mild emphysematous changes are noted diffusely. Subpleural fibrosis is evident in both lung bases, slightly more pronounced on the left than that seen on the right. The pattern is unchanged. There are no focal infiltrates. There are no pathologic pulmonary nodules. The heart size is normal. 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 This courses posterior to both the trachea and esophagus. The pulmonary arteries are enlarged consistent with chronic pulmonary hypertension. There is no significant mediastinal lymphadenopathy. Stable hepatic cysts are present. Upper cuts of the abdomen included on the examination are otherwise grossly normal on this unenhanced scan. IMPRESSION: 1. COPD is evidence of chronic pulmonary hypertension. 2. 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 3. No pathologic pulmonary nodules. ECHO--09/2020 1. Left ventricle: Systolic function is normal by visual assessment. The estimated ejection fraction is 55%. There are no regional wall motion abnormalities. Doppler parameters are consistent with abnormal left ventricular relaxation (grade 1 diastolic dysfunction). 2. Right ventricle: The cavity size is normal. Systolic function is mildly decreased by visual assessment. Right ventricular systolic pressure is within the normal range. The RV pressure during systole by Doppler is 29 mm Hg. 3. Right atrium: Central venous pressure (est): 3 mm Hg. 4. No significant valve disease. ASSESSMENT and PLAN Encounter for preoperative pulmonary examination -patient is high risk for pulmonary complications if proceeding with knee replacement surgery. I encouraged patient to discuss non-surgical options to treat his knee pain and mobility issues Emphysema in non-smoker -Mild findings on CT chest. PFTs without obstruction. His Alpha-1 was normal. -Continue to monitor oxygenation. Keep SPO2 88% or greater. Use supplemental O2 to keep pulse ox >88% Restrictive lung disease/ILD -Chronic interstitial changes on imaging, PFT from 2020 with mild restrictive impairment. Consider this is from chronic aspiration? however MBS 2021 was negative for aspiration. Recommend ongoing aspiration precautions -No dyspnea complaints but his activity is essentially limited Obesity/RICKY, intolerant of CPAP -intolerant of CPAP. Continue nocturnal O2. We discussed that supplemental O2 is not treatment for RICKY, but can help to decrease severity of hypoxic episodes. Suspected Pulmonary hypertension -Evidence of enlarged PA on imaging, could be group 2 or 3? -ECHO from 2020 RV pressure 29 -referral to cardiology placed again Aflutter -Noted on EKG in ED, looks rate controlled. -referral to cardiology was placed, but patient has not been seen -may be secondary to untreated RICKY -referral to cardiology placed again COVID-19 Patient reports having COVID-19 about 1-2 months ago. Recommended CXR to follow up, however, patient reports he had CXR done at the nursing facility. I have requested records to review imaging that was done. Clinically stable. FOLLOW UP: [address] Darrel Blake APRN Pulmonary & Sleep Medicine documented in this encounter [facility] 05-21-2023 Instructions Shazia Aguilar - 05/21/2023 10:40 AM EST YOUR APPOINTMENT TODAY WAS WITH THE [facility] L[facility]G [facility], COPD CLINIC, PULMONARY AND SLEEP MEDICINE OFFICE. PLEASE CALL OUR OFFICE AT [phone] for our [place] office location or [phone] for our [place] location, IF YOU HAVE NOT RECEIVED YOUR TEST RESULTS 7 DAYS AFTER TESTING IS COMPLETED. PLEASE REMEMBER TO REQUEST REFILLS AT YOUR OFFICE VISITS. PHONE/FAX REQUESTS REQUIRE 48-72 HOURS FOR RESPONSE. A FRIENDLY REMINDER COPAYS ARE DUE AT TIME OF SERVICE. THANK YOU. Our Patients Are Important! We want to improve and you can help. After your visit we want you to feel: Listened to, Respected and have your health care explained. You may receive a survey asking you about your visit. Please complete the survey. We will use your feedback to make improvements. COVID-19 VACCINATION INFORMATION: . [phone] [email or web address] [facility] Central Scheduling [phone] [facility] Sleep Scheduling [phone] documented in this encounter [facility] 05-11-2023 Telephone encounter Note Yasemin with [facility] facility states the patient received a letter from us asking for him to call and schedule an appointment to be seen. Pt is scheduled for 08/06/23 for 6 mos follow up appt. Reconfirmed the appt d/t/calvin Hazel indicated the pt is doing well and didn't need to be seen any time sooner. [facility] 05-11-2023 Miscellaneous Notes Yasemin with [facility] facility states the patient received a letter from us asking for him to call and schedule an appointment to be seen. Pt is scheduled for 08/06/23 for 6 mos follow up appt. Reconfirmed the appt d/t/calvin Hazel indicated the pt is doing well and didn't need to be seen any time sooner. documented in this encounter [facility] 03-30-2023 Telephone encounter Note Called pt. No answer. Mailing appt letter with office info. Closing this TE. [facility] 03-30-2023 Miscellaneous Notes Called pt. No answer. Mailing appt letter with office info. Closing this TE. Called pt and LM informing pt we have been trying to reach him to sched an appt for a VT. Informed on vmail to please call the office either way and let us know if he has a cath or not still. Informed on vmail that we are sending pt a letter as well. Called pt and LM to call back to sched VT appointment. Also informed pt to please call back either way if he doesn't have the catheter so we are aware. Called pt and LVM to return office call to schedule VT if still needed Called pt and LM to call back for VT Patient was seen in the hospital with acute urinary retention. He has had multiple episodes of this over the past several months and always required a schwartz for resolution. Needs to be seen for void trial and then will also need an appointment for discussions of future management of chronic retention. documented in this encounter [facility] 03-29-2023 Telephone encounter Note Called pt and LM informing pt we have been trying to reach him to sched an appt for a VT. Informed on vmail to please call the office either way and let us know if he has a cath or not still. Informed on vmail that we are sending pt a letter as well. [facility] 03-29-2023 Miscellaneous Notes Called pt and LM informing pt we have been trying to reach him to sched an appt for a VT. Informed on vmail to please call the office either way and let us know if he has a cath or not still. Informed on vmail that we are sending pt a letter as well. Called pt and LM to call back to sched VT appointment. Also informed pt to please call back either way if he doesn't have the catheter so we are aware. Called pt and LVM to return office call to schedule VT if still needed Called pt and LM to call back for VT Patient was seen in the hospital with acute urinary retention. He has had multiple episodes of this over the past several months and always required a schwartz for resolution. Needs to be seen for void trial and then will also need an appointment for discussions of future management of chronic retention. documented in this encounter [facility] 03-28-2023 Telephone encounter Note Called pt and LM to call back to sched VT appointment. Also informed pt to please call back either way if he doesn't have the catheter so we are aware. [facility] 03-28-2023 Miscellaneous Notes Called pt and LM to call back to sched VT appointment. Also informed pt to please call back either way if he doesn't have the catheter so we are aware. Called pt and LVM to return office call to schedule VT if still needed Called pt and LM to call back for VT Patient was seen in the hospital with acute urinary retention. He has had multiple episodes of this over the past several months and always required a schwartz for resolution. Needs to be seen for void trial and then will also need an appointment for discussions of future management of chronic retention. documented in this encounter [facility] 03-27-2023 Telephone encounter Note Called pt and LVM to return office call to schedule VT if still needed [facility] 03-27-2023 Miscellaneous Notes Called pt and LVM to return office call to schedule VT if still needed Called pt and LM to call back for VT Patient was seen in the hospital with acute urinary retention. He has had multiple episodes of this over the past several months and always required a schwartz for resolution. Needs to be seen for void trial and then will also need an appointment for discussions of future management of chronic retention. documented in this encounter [facility] 03-21-2023 Discharge summary Note Date/Time March 21, 2023 4:38pm [facility] Medical Records Department [address] [place] [address] Discharge Summary 03/21/23 1632 MR#: [id number] Acct: [id number] Name: DOROTEO GONG Rep #:[id number] : 1940 82 From: Yusuf Khanna PCP: ROOPA MADERA Status:ADM IN Location: [facility] [id number] Providers Date of Admission: 03/18/23 Date of Discharge: 03/21/23 Primary Care Physician: ROOPA MADERA Consultations 03/21/23 12:59 Consult: Infectious Disease Routine Consulting Provider: Will Roque Reason for Consult: ESBL E coli UTI EMERGENT Consult: No MD Notified: Yes Date Notified: 03/21/23 Time Notified: 12:59 Method of Notification: Text Reason For Visit: DEBILITY, UTI Diagnosis Discharge Diagnosis (1) Chronic pain of left knee: Status: Chronic Code(s): M25.562 - Pain in left knee; G89.29 - Other chronic pain (2) Asymptomatic bacteriuria: Status: Acute Code(s): R82.71 - Bacteriuria Plan 82-year-old gentleman with history of chronic left knee pain was supposed to have surgery as an outpatient was admitted for debility for severe left knee pain with weightbearing. Acute on chronic urine retention: Patient required Schwartz catheter on both recentadmission and went home with Schwartz catheter. He follows outpatient urologist Dr. Ordonez. Did he denied fever or decreased urine output with increased frequency or urgency prior to Schwartz catheterization. No suprapubic discomfort or pain. Urine culture shows more than 100,000 colonies of ESBL E. coli. ID was consulted. Patient does not have symptoms therefore it is asymptomatic bacteriuria and ID suggested against antibiotic/no indication of antibiotic therefore patient was not discharged on antibiotic. Patient on Flomax and Proscar. Patient discharged with Schwartz catheter and advised to follow-up with urologist. Falls/debility -This seems all related to his left lower extremity knee pain -PT/OT following -Case management/social work following -Patient will need placement at discharge and will need a 3 midnight hospitalization with the earliest date of discharge if medically stable being 03/21/2023 Severe left knee osteoarthritis -Plan is for operative intervention with total knee arthroplasty in May -Encourage patient to keep this scheduled History of asthma/COPD/pulmonary fibrosis -Intermittently uses 2 L nasal cannula at home -As needed a aerosols -Continue home loratadine RICKY -Patient's been intolerant of CPAP previously -Continue nocturnal oxygen at 2 L Hypertension -Continue home hydrochlorothiazide Hyperlipidemia -Continue home statin GERD -Continue PPI Hypothyroidism -Continue home Synthroid Vitamin B12 deficiency -Continue home supplement Constipation -Continue home MiraLAX Obesity -BMI is 31.1 -Recommend weight loss -Complicates treatment, prognosis, outcomes DVT prophylaxis -Continue Lovenox CODE STATUS Full code Discharge medication reconciliation done. Discharge follow-up instructions completed. Discharge process discussed with the patient and all questions wereanswered to patient's satisfaction. Follow with PCP in 1 to 2 weeks Total time spent, exact 35 minutes on discharge meds reconciliation, examination, coordination of care with nurses and ancillary staff, review of imaging and blood test and discussion with the patient on follow-up instructions. Medications at Discharge Home Medications albuterol sulfate 90 mcg/actuation aerosol inhaler 2 puff inhalation Q6H PRN ASTHMA 03/18/23 atorvastatin 10 mg tablet 10 mg PO QHS cholesterol 03/18/23 carboxymethylcellulose sodium 0.5 % eye drops in a dropperette 1 drp EACH EYE DAILY PRN dry eye(s) 03/18/23 cyanocobalamin (vitamin B-12) 1,000 mcg capsule 2,000 mcg PO DAILY suppliment 03/18/23 diclofenac sodium 1 % topical gel (Voltaren Arthritis Pain) 2 g topical DAILY 03/18/23 ergocalciferol (vitamin D2) 1,250 mcg (50,000 unit) capsule (Drisdol) 1,250 mcg PO QWEEK supplement 03/18/23 finasteride 5 mg tablet 5 mg PO DAILY prostate 03/18/23 fluticasone propionate 110 mcg/actuation HFA aerosol inhaler (Flovent HFA) 2 inhinhalation BID asthma 03/18/23 hydrochlorothiazide 25 mg tablet 25 mg PO DAILY water pill 03/18/23 ipratropium bromide 42 mcg (0.06 %) nasal spray 2 spray intranasal DAILY 03/18/23 levothyroxine 50 mcg tablet 50 mcg PO DAILY thyroid 03/18/23 loratadine 10 mg tablet (Allerclear) 10 mg PO DAILY allergies 03/18/23 omeprazole 20 mg capsule,delayed release 20 mg PO DAILY gerd 03/18/23 ondansetron 4 mg disintegrating tablet 4 mg PO Q8H PRN nausea and vomiting 03/18/23 polyethylene glycol 3350 17 gram/dose oral powder (ClearLax) 17 g PO DAILY laxative 03/18/23 tramadol 50 mg tablet 50 mg PO Q8H PRN pain 03/18/23 acetaminophen 325 mg tablet 650 mg (2 x 325 mg) PO Q6H PRN PRN Pain 1-10 Or Fever>100.7 #0 tabs 03/21/23 tamsulosin 0.4 mg capsule 0.4 mg PO DAILY@0830 #0 caps 03/21/23 Physical Exam Narrative Seen and examined. No acute symptoms of increased frequency urgency burning micturition prior to Schwartz catheterization. Patient has history of chronic urinary retention and BPH Physical exam General: Alert, Oriented x3, Cooperative HEENT: Atraumatic, PERRLA, EOMI, Normocephalic Oral: No Gingival or Mucosal Lesions/ Ulcerations Neck: Supple, No JVD, Negative Carotid Bruits Lungs: Air entry diminished in bilateral lung bases. No crepitation/rhonchi Cardiovascular: Regular rate, Regular Rhythm, Normal S1, Normal S2, systolic murmur Abdomen: Bowel Sounds Present, Soft, Non Tender, Non-Distended : No dysuria. Schwartz catheter. Clear urine. No renal angle tenderness. No suprapubic tenderness. Extremities: No edema, Capillary Refill Less than 3 Seconds Skin: No rashes, No breakdown Musculoskeletal: Bilateral degenerative arthritis, left worse than right. ROM restricted. Mild tenderness to deep palpation of left knee. Neurological: Cranial nerves II-XII grossly intact, DTR 2+/4. No acute focal neurological deficit. Psych/Mental Status: Normal Affect, Appropriate. Weight / BMI Weight Weight: 159 lb Body Mass Index (BMI) 31.0 ABG / Lab / Microbiology Data 03/21/23 07:11 03/21/23 07:11 Laboratory: Laboratory Results - last 24 hr 03/21/23 07:11: WBC 9.5, RBC 4.28 L, Hgb 12.5 L, Hct 39.1 L, MCV 91.4, MCH 29.2,MCHC 32.0, RDW Std Deviation 45.1 H, RDW Coeff of Josue 13.4, Plt Count 497 H, MPV9.3, Immature Gran % (Auto) 1.800 H, Neut % (Auto) 55.4, Lymph % (Auto) 27.0, Nuckolls % (Auto) 11.6 H, Eos % (Auto) 3.4, Baso % (Auto) 0.8, Absolute Neuts (auto)5.3, Absolute Lymphs (auto) 2.57, Nucleated RBC % 0, Sodium 135 L, Potassium 3.9, Chloride 103, Carbon Dioxide 26.0, Anion Gap 6, BUN 12, Creatinine 0.63 L, Estim Creat Clear Calc 39.58, Est GFR (MDRD) Af Amer 156, Est GFR (MDRD) Non-Af 129, BUN/Creatinine Ratio 19.0, Glucose 95, Calcium 9.1 Microbiology: Microbiology 03/18/23 15:23 Urine, Clean Catch Urine Culture - Final ESBL Klebsiella pneumoniae pne Meaningful Use Info Meaningful Use Diagnoses (Choose all that apply): None applicable Discharge Plan Admission Admit Date/Time: 03/18/23 16:50 Primary Reason for Your Visit: Asymptomatic bacteriuria. Debility due to severeknee arthritis Attending Provider: Yusuf Nelson Primary Care Provider: ROOPA MADERA Consulting Providers: Channing Bridges; Radha Schofield; Will Roque Instructions Additional Instructions / Restrictions: Discharge with Schwartz catheter. Patient on Flomax. Follow-up outpatient urologist Dr. Ordonez for BPH at [facility] for spontaneous voiding trial. Discharge Orders/Prescriptions Prescriptions: New acetaminophen 325 mg Tablet 650 mg PO Q6H PRN PRN (Reason: Pain 1-10 Or Fever>100.7) Qty: 0 0RF tamsulosin 0.4 mg Capsule 0.4 mg PO DAILY@0830 Qty: 0 0RF Continued albuterol sulfate 90 mcg/actuation HFA aerosol inhaler 2 puff INHALATION Q6H PRN (Reason: ASTHMA) atorvastatin 10 mg tablet 10 mg PO QHS finasteride 5 mg tablet 5 mg PO DAILY ipratropium bromide 42 mcg (0.06 %) spray,non-aerosol 2 spray INTRANASAL DAILY levothyroxine 50 mcg tablet 50 mcg PO DAILY omeprazole 20 mg capsule,delayed release(DR/EC) 20 mg PO DAILY tramadol 50 mg tablet 50 mg PO Q8H PRN (Reason: pain) hydrochlorothiazide 25 mg tablet 25 mg PO DAILY fluticasone propionate [Flovent HFA] 110 mcg/actuation HFA aerosol inhaler 2 inh inhalation BID loratadine [Allerclear] 10 mg tablet 10 mg PO DAILY polyethylene glycol 3350 [ClearLax] 17 gram/dose powder 17 g PO DAILY cyanocobalamin (vitamin B-12) 1,000 mcg capsule 2,000 mcg PO DAILY ergocalciferol (vitamin D2) [Drisdol] 1,250 mcg (50,000 unit) capsule 1,250 mcg PO QWEEK diclofenac sodium [Voltaren Arthritis Pain] 1 % gel 2 g topical DAILY Rx Instructions: TO LEFT KNEE ondansetron 4 mg tablet,disintegrating 4 mg PO Q8H PRN (Reason: nausea and vomiting) carboxymethylcellulose sodium 0.5 % dropperette 1 drp EACH EYE DAILY PRN (Reason: dry eye(s)) Discontinued alfuzosin 10 mg tablet extended release 24 hr 10 mg PO DAILY magnesium hydroxide [Pritchard Milk of Magnesia] 400 mg/5 mL suspension 30 ml PO DAILY PRN (Reason: constipation) Referrals / Follow Up: ROOPA MADERA [Other] - In 1 Week ROOPA MADERA [Other] Disposition Disposition (needs filled in before D/C Order can be placed): Intermediate Facility Charges/Coding Visit Charges Inpatient E&M: 65973 Disch Hosp >30min 03/21/23 1638 <Electronically signed by Yusuf Nelson MD> Cosigner Signature (if applicable): CC: ROOPA MADERA; Dr. Yusuf Nelson MD~ Signed [facility] Work Phone: [phone]) 183-218012-06-2023 Discharge summary Author Yusuf Nelson [facility] March 21, 2023 4:31pm Note Date/Time March 21, 2023 4 :26pm [facility] Medical Records Department [address] [place] [address] Transfer to [facility] MR#: [id number] Acct: [id number] Name: BELTRANDOROTEO METZITH Rep #:[id number] : 1940 82 From: Yusuf Khanna PCP: ROOPA MADERA Status:ADM IN Certification of patient admission REQUIRED AT TIME OF ADMISSION. I CERTIFY THAT POST-HOSPITAL ECF SERVICES ARE REQUIRED TO BE GIVEN ON AN IN-PATIENT BASIS BECAUSE OF THE ABOVE NAMED PATIENT'S NEED FOR SENIOR CARE CARE ON A CONTINUING BASIS FOR THE CONDITION(S) FOR WHICH HE/SHE WAS RECEIVING IN-PATIENT HOSPITAL SERVICES PRIOR TO HIS/HER TRANSFER TO THE ECF. 03/21/23 1631<Electronically signed by Yusuf Nelson MD> Diet Diet Order/Speech Therapy: 03/18/23 17:44 Diet: Cardiac - Heart Healthy Food consistency:: Easy to Chew Liquid Consistency:: Regular/Thin Is pt able to select menu?: Yes Routine Orders/Code Status Suppository Type: Dulcolax 10mg Suppository Frequency: Daily PRN Wound(s) Rt swift: Wound Type: Abrasion coccyx: Wound Type: Pressure Injury Therapies Weight Bearing: Weight bearing as tolerated Extremity Affected:: Left Lower Physical Therapy: Eval and Treat Occupational Therapy: Eval and Treat Speech Therapy: Eval and Treat Problem/Diagnosis (1) UTI (urinary tract infection): Status: Acute Code(s): N39.0 - Urinary tract infection, site not specified Allergies/Procedures Done in Hospital Allergies allopurinol Allergy (Verified 03/18/23 15:10) PT UNSURE OF REACTION ciprofloxacin Allergy (Verified 03/18/23 15:10) PT UNSURE OF REACTION erythromycin base Allergy (Verified 03/18/23 15:10) PT UNSURE OF REACTION levofloxacin Allergy (Verified 03/18/23 15:10) PT UNSURE OF REACTION paroxetine Allergy (Verified 03/18/23 15:10) PT UNSURE OF REACTION Penicillins Allergy (Verified 03/18/23 15:10) PT UNSURE OF REACTION Sulfa (Sulfonamide Antibiotics) Allergy (Verified 03/18/23 15:10) PT UNSURE OF REACTION Tetracyclines Allergy (Verified 03/18/23 15:10) PT UNSURE OF REACTION Type of Care/Length of Stay Estimated LOS: Convalescent Care Less Than 30 days Type of Care Needed: Skilled Rehab Potential: Good Prognosis: Good Additional Orders/Day of Discharge Day of Discharge: 03/21/23 Discharge Plan Admission Admit Date/Time: 03/18/23 16:50 Primary Reason for Your Visit: Asymptomatic bacteriuria. Debility due to severeknee arthritis Attending Provider: Yusuf Nelson Primary Care Provider: ROOPA MADERA Consulting Providers: Channing Bridges; Radha Schofield; Will Roque Instructions Additional Instructions / Restrictions: Discharge with Schwartz catheter. Patient on Flomax. Follow-up outpatient urologist Dr. Ordonez for BPH at [facility] for spontaneous voiding trial. Discharge Orders/Prescriptions Prescriptions: New acetaminophen 325 mg Tablet 650 mg PO Q6H PRN PRN (Reason: Pain 1-10 Or Fever>100.7) Qty: 0 0RF tamsulosin 0.4 mg Capsule 0.4 mg PO DAILY@0830 Qty: 0 0RF Continued albuterol sulfate 90 mcg/actuation HFA aerosol inhaler 2 puff INHALATION Q6H PRN (Reason: ASTHMA) atorvastatin 10 mg tablet 10 mg PO QHS finasteride 5 mg tablet 5 mg PO DAILY ipratropium bromide 42 mcg (0.06 %) spray,non-aerosol 2 spray INTRANASAL DAILY levothyroxine 50 mcg tablet 50 mcg PO DAILY omeprazole 20 mg capsule,delayed release(DR/EC) 20 mg PO DAILY tramadol 50 mg tablet 50 mg PO Q8H PRN (Reason: pain) hydrochlorothiazide 25 mg tablet 25 mg PO DAILY fluticasone propionate [Flovent HFA] 110 mcg/actuation HFA aerosol inhaler 2 inh inhalation BID loratadine [Allerclear] 10 mg tablet 10 mg PO DAILY polyethylene glycol 3350 [ClearLax] 17 gram/dose powder 17 g PO DAILY cyanocobalamin (vitamin B-12) 1,000 mcg capsule 2,000 mcg PO DAILY ergocalciferol (vitamin D2) [Drisdol] 1,250 mcg (50,000 unit) capsule 1,250 mcg PO QWEEK diclofenac sodium [Voltaren Arthritis Pain] 1 % gel 2 g topical DAILY Rx Instructions: TO LEFT KNEE ondansetron 4 mg tablet,disintegrating 4 mg PO Q8H PRN (Reason: nausea and vomiting) carboxymethylcellulose sodium 0.5 % dropperette 1 drp EACH EYE DAILY PRN (Reason: dry eye(s)) Discontinued alfuzosin 10 mg tablet extended release 24 hr 10 mg PO DAILY magnesium hydroxide [Pritchard Milk of Magnesia] 400 mg/5 mL suspension 30 ml PO DAILY PRN (Reason: constipation) Referrals / Follow Up: ROOPA MADERA [Other] - In 1 Week ROOPA MADERA [Other] Disposition Disposition (needs filled in before D/C Order can be placed): Intermediate Facility 03/21/23 1631 <Electronically signed by Yusuf Nelson MD> Cosigner Signature (if applicable): CC: ROOPA MADERA; Dr. Channing Bridges DO; Dr. Radha Schofield DO; Dr. Will Roque MD ~ [facility] Work Phone: [phone] Consult note Author Will Roque [facility] March 21, 2023 1:24pm Note Date/Time March 21, 2023 1 :25pm [facility] Medical Records Department [address] [place] [address] Consultation - Infectious Dx 03/21/23 1322 MR#: [id number] Acct: [id number] Name: DOROTEO GONG Rep #:[id number] : 1940 82 From: Will Roque MD PCP: ROOPA MADERA Status:ADM IN Location: [place] [address] Assessment & Plan Assessment/Plan (1) UTI (urinary tract infection): PLAN: Patient with asymptomatic bacteriuria, at this point be reasonable to holdoff on antimicrobial therapy and observe off antibiotics. HPI Consult Data Date of Consult: 03/21/23 HPI Narrative Reason for Consultation: Concern of urinary tract infection with ESBL positive E. coli in the urine HPI Narrative: DOROTEO GONG, is a 82 M who presents past medical history of osteoarthritis, BPH with history of urinary retention who was admitted earlier this week with knee pain exacerbation of his osteoarthritis. No fevers or chills. No significant constitutional symptoms. Patient was found to have urinary retention and a Schwartz catheter was placed. Patient does have underlying BPH andhas had Schwartz catheters in place in the recent past and sees a urologist in [place]. Denies any fevers or chills. No urinary symptoms such as dysuria prior to come to the hospital. Patient is relatively asymptomatic from a standpoint other than his urinary retention. He currently has a Schwartz catheter still in place since admission. Currently on ceftriaxone. Microbiology data reviewed [facility] Medical History Asthma Benign prostate hyperplasia Chronic kidney disease COPD (chronic obstructive pulmonary disease) Emphysema lung GERD (gastroesophageal reflux disease) HTN (hypertension) Hypothyroid Major depression Muscle weakness Obesity Obstructive sleep apnea Pulmonary disease Pulmonary fibrosis Pulmonary HTN Home Medications albuterol sulfate 90 mcg/actuation aerosol inhaler 2 puff inhalation Q6H PRN ASTHMA 03/18/23 [History Last Taken Unknown] alfuzosin 10 mg tablet,extended release 24 hr 10 mg PO DAILY urinary retention 03/18/23 [History Last Taken 03/18/23] atorvastatin 10 mg tablet 10 mg PO QHS cholesterol 03/18/23 [History Last Taken 03/17/23] carboxymethylcellulose sodium 0.5 % eye drops in a dropperette 1 drp EACH EYE DAILY PRN dry eye(s) 03/18/23 [History Last Taken Unknown] cyanocobalamin (vitamin B-12) 1,000 mcg capsule 2,000 mcg PO DAILY suppliment 03/18/23 [History Last Taken 03/18/23] diclofenac sodium 1 % topical gel (Voltaren Arthritis Pain) 2 g topical DAILY 03/18/23 [History Last Taken 03/18/23] ergocalciferol (vitamin D2) 1,250 mcg (50,000 unit) capsule (Drisdol) 1,250 mcg PO QWEEK supplement 03/18/23 [History Last Taken Unknown] finasteride 5 mg tablet 5 mg PO DAILY prostate 03/18/23 [History Last Taken 03/18/23] fluticasone propionate 110 mcg/actuation HFA aerosol inhaler (Flovent HFA) 2 inhinhalation BID asthma 03/18/23 [History Last Taken 03/18/23] hydrochlorothiazide 25 mg tablet 25 mg PO DAILY water pill 03/18/23 [History Last Taken 03/17/23] ipratropium bromide 42 mcg (0.06 %) nasal spray 2 spray intranasal DAILY 03/18/23 [History Last Taken 03/18/23] levothyroxine 50 mcg tablet 50 mcg PO DAILY thyroid 03/18/23 [History Last Taken 03/18/23] loratadine 10 mg tablet (Allerclear) 10 mg PO DAILY allergies 03/18/23 [History Last Taken 03/18/23] magnesium hydroxide 400 mg/5 mL oral suspension (Pritchard Milk of Magnesia) 30 ml PO DAILY PRN constipation 03/18/23 [History Last Taken Unknown] omeprazole 20 mg capsule,delayed release 20 mg PO DAILY gerd 03/18/23 [History Last Taken 03/18/23] ondansetron 4 mg disintegrating tablet 4 mg PO Q8H PRN nausea and vomiting 03/18/23 [History Last Taken Unknown] polyethylene glycol 3350 17 gram/dose oral powder (ClearLax) 17 g PO DAILY laxative 03/18/23 [History Last Taken 03/18/23] tramadol 50 mg tablet 50 mg PO Q8H PRN pain 03/18/23 [History Last Taken Unknown] Allergy/AdvReac Type Severity Reaction Status Date / Time allopurinol Allergy PT UNSURE Verified 03/18/23 15:10 OF REACTION ciprofloxacin Allergy PT UNSURE Verified 03/18/23 15:10 OF REACTION erythromycin base Allergy PT UNSURE Verified 03/18/23 15:10 OF REACTION levofloxacin Allergy PT UNSURE Verified 03/18/23 15:10 OF REACTION paroxetine Allergy PT UNSURE Verified 03/18/23 15:10 OF REACTION Penicillins Allergy PT UNSURE Verified 03/18/23 15:10 OF REACTION Sulfa (Sulfonamide Allergy PT UNSURE Verified 03/18/23 15:10 Antibiotics) OF REACTION Tetracyclines Allergy PT UNSURE Verified 03/18/23 15:10 OF REACTION Social History (Updated 03/18/23 @ 18:06 by Cathy Jensen) history of recent travel: No sexually active: No do you think of yourself as: straight/heterosexual current gender identity: male Smoking Status: Never smoker substance use type: does not use ROS ROS Narrative As stated in history of present illness otherwise negative Physical Exam Narrative Alert responsive does not appear toxic lungs are clear heart exam S1-S2 abdomen soft nontender. Schwartz catheter is in place Lab / Micro Data 03/21/23 07:11 03/21/23 07:11 Labs: Laboratory Results - last 24 hr 03/21/23 07:11: WBC 9.5, RBC 4.28 L, Hgb 12.5 L, Hct 39.1 L, MCV 91.4, MCH 29.2,MCHC 32.0, RDW Std Deviation 45.1 H, RDW Coeff of Josue 13.4, Plt Count 497 H, MPV9.3, Immature Gran % (Auto) 1.800 H, Neut % (Auto) 55.4, Lymph % (Auto) 27.0, Nuckolls % (Auto) 11.6 H, Eos % (Auto) 3.4, Baso % (Auto) 0.8, Absolute Neuts (auto)5.3, Absolute Lymphs (auto) 2.57, Nucleated RBC % 0, Sodium 135 L, Potassium 3.9, Chloride 103, Carbon Dioxide 26.0, Anion Gap 6, BUN 12, Creatinine 0.63 L, Estim Creat Clear Calc 39.58, Est GFR (MDRD) Af Amer 156, Est GFR (MDRD) Non-Af 129, BUN/Creatinine Ratio 19.0, Glucose 95, Calcium 9.1 Micro: Microbiology 03/18/23 15:23 Urine, Clean Catch Urine Culture - Final ESBL Klebsiella pneumoniae pne 03/21/23 1324 <Electronically signed by Will Roque MD> Cosigner Signature (if applicable): CC: ROOPA MADERA; Dr. Channing Bridges DO; Dr. Radha Schofield DO; Dr. Will Roque MD~ Signed [facility] Work Phone: [phone]) 688-175412-05-2023 Progress note Author Radha Schofield [facility] March 20, 2023 11:39am Note Date/Time March 20, 2023 1 1:33am [facility] Medical Records Department [address] [place] [id number] Progress Note - Hospitalist 03/20/23 1129 MR#: [id number] Acct: [id number] Name: DOROTEO GONG Rep #:[id number] : 1940 82 From: Radha Schofield DO PCP: ROOPA MADERA Status:ADM IN [facility] Reason for Visit Reason for Visit: Debility Subjective Subjective No issues overnight. We did require Schwartz placement yesterday afternoon secondary to urinary retention. I suspect this is chronic and based on his history he has frequent issues with urinary retention and follows with Dr. Shelly rivas at [facility] for urological issues. Objective Data Objective Data Vital Signs: Vital Signs Temp Pulse Resp BP Pulse Ox O2 Del Method O2 Flow Rate 98.5 F 77 18 110/70 93 Room Air 2 03/20/23 08:25 03/20/23 08:25 03/20/23 08:25 03/20/23 08:25 03/20/23 08:25 03/20/23 08:25 03/19/23 02:00 Oxygen Flow Rate (L/min) 2 Oxygen Delivery Method Room Air Weight: 72.121 kg Body Mass Index (BMI) 31.0 Intake & Output: Intake and Output for Last 24 Hours 03/18/23 03/19/23 03/20/23 23:59 23:59 23:59 Intake Total 340 / 590 1100 / 1100 50 / 50 Output Total 780 / 780 1150 / 1150 Balance 340 / 590 320 / 320 -1100 / -1100 Lab / Micro Data 03/20/23 07:22 03/19/23 05:50 Labs: Laboratory Results - last 24 hr 03/20/23 07:22: WBC 9.3, RBC 4.37 L, Hgb 12.8 L, Hct 39.5 L, MCV 90.4, MCH 29.3,MCHC 32.4, RDW Std Deviation 44.6 H, RDW Coeff of Josue 13.3, Plt Count 461 H, MPV8.3, Immature Gran % (Auto) 1.200 H, Neut % (Auto) 59.5, Lymph % (Auto) 25.2, Nuckolls % (Auto) 10.1 H, Eos % (Auto) 3.1, Baso % (Auto) 0.9, Absolute Neuts (auto)5.5, Absolute Lymphs (auto) 2.34, Nucleated RBC % 0 Micro: Microbiology 03/18/23 15:23 Urine, Clean Catch Urine Culture - Preliminary GNR lactose thread separator Physical Exam Const alert, oriented x3, no apparent distress, healthy appearing and well nourished Constitutional Narrative: Obese, elderly, white male, sitting up in bed, watching television, patient appears comfortable and nontoxic HEENT normocephalic, head/scalp atraumatic, hearing grossly normal bilaterally and moist oral mucous membranes Resp normal respiratory effort, normal air movement, no retractions, no use of accessory muscles and clear to auscultation bilaterally Auscultation: Negative for rales, rhonchi or wheezes Cardio regular rate, regular rhythm, S1 normal heart sound, S2 normal heart sound, no murmurs, no rub, no gallops and no clicks GI normal to inspection, nondistended, normoactive bowel sounds, soft to palpation and non-tender Extremity normal to inspection, no clubbing, cyanosis or edema and no pedal edema Extremity Narrative: Pedal pulses are 2+ Neuro oriented x3, moves all extremities and no focal motor deficits Speech: speech normal Psych mental status grossly normal and affect normal Psych Narrative: Eye contact is good, patient interacts appropriately Assessment & Plan Assessment/Plan (1) At risk for falls: (2) Weakness: (3) Chronic pain of left knee: (4) UTI (urinary tract infection): (5) Inability to perform activities of daily living: PLAN: Plan Gram-negative urinary tract infection with urinary retention -Continue Flomax -Continue home Proscar -Schwartz placed and will discharge with Schwartz and have him follow-up with Dr. Ordonez after discharge--> his urologist -Ultrasound did show some mild bilateral hydro with catheter not in place -Cultures thus far growing gram-negative madison lactose thread separator with sensitivities and identification is pending -Continue antibiotics as ordered Falls/debility -This seems all related to his left lower extremity knee pain -PT/OT following -Case management/social work following -Patient will need placement at discharge and will need a 3 midnight hospitalization with the earliest date of discharge if medically stable being 03/21/2023 Severe left knee osteoarthritis -Plan is for operative intervention with total knee arthroplasty in May -Encourage patient to keep this scheduled History of asthma/COPD/pulmonary fibrosis -Intermittently uses 2 L nasal cannula at home -As needed a aerosols -Continue home loratadine RICKY -Patient's been intolerant of CPAP previously -Continue nocturnal oxygen at 2 L Hypertension -Continue home hydrochlorothiazide Hyperlipidemia -Continue home statin GERD -Continue PPI Hypothyroidism -Continue home Synthroid Vitamin B12 deficiency -Continue home supplement Constipation -Continue home MiraLAX Obesity -BMI is 31.1 -Recommend weight loss -Complicates treatment, prognosis, outcomes DVT prophylaxis -Continue Lovenox CODE STATUS Full code Charges/Coding Visit Charges Inpatient E&M: 95413 Subs Hosp L2 03/20/23 6739 <Electronically signed by Radha Schofield DO> Cosigner Signature (if applicable): CC: ~ Signed [facility] Work Phone: 1(164) 491-185812-04-2023 Progress note Author Radha Schofield [facility] March 19, 2023 4:23pm Note Date/Time March 19, 2023 4 :23pm [facility] Medical Records Department [address] [place] [address] Progress Note - Hospitalist 03/19/23 1615 MR#: [id number] Acct: [id number] Name: DOROTEO GONG Rep #:[id number] : 1940 82 From: Radha Schofield DO PCP: ROOPA MADERA Status:ADM IN Location: [id number] Reason for Visit Reason for Visit: Knee pain/falls Subjective Subjective Mr. Gong is an 82 old white male who presents emergency department at [facility] on 03/18/2023 from home with worsening left knee pain and debility. Patient had a recent hospitalization over at [facility] and was sent to a nursing facility over in [place]. The patient reports he was released yesterdayor the day prior and was doing quite well however when he got home he had considerable knee pain with ambulation and felt weak. He had not been able to do much for himself. His nephew brought him into the emergency department on the day of admission as he did not feel comfortable with him being at home by himself. Patient reported mild left knee pain at rest. He is scheduled for total knee arthroplasty to be done in May. He denies any difficulty with urinating or decreased urine output however [facility]. He saw urology as an outpatient and they were able to take his catheter out a few weeks ago. In the emergency department his vital signs were unremarkable. He had an elevated white count at13.4 with thrombocytosis at 552,000. No left shift was present. His chemistry panel was unremarkable. His UA was suggestive of infection showing positive nitrites, leuk esterase, white cells, and 1+ bacteria. Cultures were sent and he was started on antibiotics for suspected urinary tract infection and admittedto the hospital for placement due to stability with decreased independence at home. This morning he is having some urinary retention. He does indicate he was on Flomax previously but it was not on his admitting med reconciliation. I did discuss with him reinitiating this and he thought this would be a good idea. Heis unclear as to why this was discontinued previously. Objective Data Objective Data Vital Signs: Vital Signs Temp Pulse Resp BP Pulse Ox O2 Del Method O2 Flow Rate 98.2 F 81 16 128/72 H 97 Room Air 2 03/19/23 16:08 03/19/23 16:08 03/19/23 16:08 03/19/23 16:08 03/19/23 16:08 03/19/23 16:08 03/19/23 02:00 Oxygen Flow Rate (L/min) 2 Oxygen Delivery Method Room Air Weight: 72.121 kg Body Mass Index (BMI) 31.0 Intake & Output: Intake and Output for Last 24 Hours 03/17/23 03/18/23 03/19/23 23:59 23:59 23:59 Intake Total 340 / 590 860 / 860 Output Total 580 / 580 Balance 340 / 590 280 / 280 Lab / Micro Data 03/19/23 05:50 03/19/23 05:50 Labs: Laboratory Results - last 24 hr 03/19/23 05:50: WBC 12.0 H, RBC 4.25 L, Hgb 12.6 L, Hct 39.1 L, MCV 92.0, MCH 29.6, MCHC 32.2, RDW Std Deviation 45.6 H, RDW Coeff of Josue 13.3, Plt Count 503 H, MPV 8.8, Sodium 140, Potassium 4.3, Chloride 105, Carbon Dioxide 30.0, Anion Gap 5, BUN 15, Creatinine 0.79, Estim Creat Clear Calc 39.58, Est GFR (MDRD) Af Amer 120, Est GFR (MDRD) Non-Af 99, BUN/Creatinine Ratio 18.9, Glucose 100, Calcium 9.6 Micro: Microbiology 03/18/23 15:23 Urine, Clean Catch Urine Culture - Preliminary GNR lactose thread separator Radiography Diagnostic Testing: Radiology Impression Renal Ultrasound 03/19/23 06:00 IMPRESSION: 1. A small to moderate amount of soft tissue is present in the bladder floor most likely representing debris, however herniated components of the prostate gland can also have a similar appearance. The soft tissue is not vascular and does not appear to represent a malignancy, however urologic evaluation or cystoscopy may be required for definitive diagnosis. 2. Mild bilateral hydronephrosis. Electronically Signed: Dariel Snell MD at 10:00 EST Reading Location ID and State: [address] [place] [address] , Service support , Physical Exam Const alert, oriented x3, no apparent distress, healthy appearing and well nourished Constitutional Narrative: Obese, elderly, white male, sitting up in bed, nursing at bedside, patient appears comfortable and nontoxic, currently trying to urinate HEENT head/scalp atraumatic and moist oral mucous membranes HEENT Narrative: No thrush Head and Scalp: normocephalic Resp normal respiratory effort, no retractions, no use of accessory muscles and clearto auscultation bilaterally Auscultation: Negative for rales, rhonchi or wheezes Cardio regular rate, regular rhythm, S1 normal heart sound, S2 normal heart sound, no murmurs, no rub, no gallops and no clicks GI normal to inspection, nondistended, normoactive bowel sounds, soft to palpation and non-tender Extremity no clubbing, cyanosis or edema Extremity Narrative: Pedal pulses are 2+ Neuro oriented x3, moves all extremities and no focal motor deficits Neuro Narrative: Increased pain with movement of left lower extremity at the knee joint Speech: speech normal Psych affect normal Psych Narrative: Eye contact is good, patient interacts appropriately Assessment & Plan Assessment/Plan (1) At risk for falls: (2) Weakness: (3) Chronic pain of left knee: (4) UTI (urinary tract infection): (5) Inability to perform activities of daily living: PLAN: Plan Suspected urinary tract infection with urinary retention -Start home Flomax -Continue home Proscar -May need Schwartz catheter depending on urine output and retention -Continue antibiotics -Urine cultures are pending--> await sensitivities and identification and will narrow antibiotics as able with transition to oral Falls/debility -This seems all related to his left lower extremity knee pain -PT/OT following -Case management/social work following -Patient will need placement at discharge and will need a 3 midnight hospitalization with the earliest date of discharge if medically stable being 03/21/2023 Severe left knee osteoarthritis -Plan is for operative intervention with total knee arthroplasty in May -Encourage patient to keep this scheduled History of asthma/COPD/pulmonary fibrosis -Intermittently uses 2 L nasal cannula at home -As needed a aerosols -Continue home loratadine RICKY -Patient's been intolerant of CPAP previously -Continue nocturnal oxygen at 2 L Hypertension -Continue home hydrochlorothiazide Hyperlipidemia -Continue home statin GERD -Continue PPI Hypothyroidism -Continue home Synthroid Vitamin B12 deficiency -Continue home supplement Constipation -Continue home MiraLAX Obesity -BMI is 31.1 -Recommend weight loss -Complicates treatment, prognosis, outcomes DVT prophylaxis -Continue Lovenox CODE STATUS Full code Charges/Coding Visit Charges Inpatient E&M: 73330 Subs Hosp L2 03/19/23 1623 <Electronically signed by Radha Schofield DO> Cosigner Signature (if applicable): CC: ~ Signed [facility] Work Phone: [phone] [id number] History and physical note Author Channing Bridges [facility] March 18, 2023 9:00pm Note Date/Time March 18, 2023 4 :50pm [facility] Medical Records Department [address] [place] [address] H&P Exam - Hospitalist 03/18/23 1637 MR#: [id number] Acct: [id number] Name: DOROTEO GONG Rep #:[id number] : 1940 82 From: Channing gonzales DO PCP: ROOPA MADERA Status:ADM IN Location: [facility] LV371-8 HPI - General General Date of Admission: 03/18/23 Date of Service: 03/18/23 Chief Complaint: Weakness, left knee pain HPI Narrative DOROTEO GONG, is a 82 M who presented to [facility] ED on 03/18/2023 from home with worsening left knee pain and debility. Patient seen atbedside in ED. Sitting comfortably in bed, conversing normally, no acute distress. Patient states that he lives at home by himself. Has had a few recent admissions over at [facility] for his chronic knee pain, was seen by orthopedics there at the end of January and current plan is for left knee replacement in May. States he did need to go [facility] a [facility] facility[facility] his most recent discharge from [facility], was released home from there about 1 week ago. States he has continued to feel fairly weak at baseline and continues to have severe knee pain with ambulation, has not been able to do much for himself at home. His nephew brought him to the emergency department today because nephew did not feel comfortable with him being at home by himself. Patient currently reports mild left knee pain at rest. Takes primarily Tylenol to help with the pain, occasionally will take tramadol but limits this as best he can. He also uses Voltaren gel on a daily basis and this is helpful. Patient denies any fevers or chills. Denies any difficulty with urinating or decreased urine output. However, he notes that he has required a catheter on both recent admissions, and he went home with a catheter after his last admission. States he saw urology in the office and they were able to take the catheter out a few weeks ago. He denies any suprapubic pain or discomfort. He denies any chest pain, shortness of breath, abdominal pain or discomfort. No other acute concerns this time. [facility] Medical History Asthma Benign prostate hyperplasia Chronic kidney disease COPD (chronic obstructive pulmonary disease) Emphysema lung GERD (gastroesophageal reflux disease) HTN (hypertension) Hypothyroid Major depression Muscle weakness Obesity Obstructive sleep apnea Pulmonary disease Pulmonary fibrosis Pulmonary HTN Home Medications albuterol sulfate 90 mcg/actuation aerosol inhaler 2 puff inhalation Q6H PRN ASTHMA 03/18/23 [History Last Taken Unknown] alfuzosin 10 mg tablet,extended release 24 hr 10 mg PO DAILY urinary retention 03/18/23 [History Last Taken 03/18/23] atorvastatin 10 mg tablet 10 mg PO QHS cholesterol 03/18/23 [History Last Taken 03/17/23] carboxymethylcellulose sodium 0.5 % eye drops in a dropperette 1 drp EACH EYE DAILY PRN dry eye(s) 03/18/23 [History Last Taken Unknown] cyanocobalamin (vitamin B-12) 1,000 mcg capsule 2,000 mcg PO DAILY suppliment 03/18/23 [History Last Taken 03/18/23] diclofenac sodium 1 % topical gel (Voltaren Arthritis Pain) 2 g topical DAILY 03/18/23 [History Last Taken 03/18/23] ergocalciferol (vitamin D2) 1,250 mcg (50,000 unit) capsule (Drisdol) 1,250 mcg PO QWEEK supplement 03/18/23 [History Last Taken Unknown] finasteride 5 mg tablet 5 mg PO DAILY prostate 03/18/23 [History Last Taken 03/18/23] fluticasone propionate 110 mcg/actuation HFA aerosol inhaler (Flovent HFA) 2 inhinhalation BID asthma 03/18/23 [History Last Taken 03/18/23] hydrochlorothiazide 25 mg tablet 25 mg PO DAILY water pill 03/18/23 [History Last Taken 03/17/23] ipratropium bromide 42 mcg (0.06 %) nasal spray 2 spray intranasal DAILY 03/18/23 [History Last Taken 03/18/23] levothyroxine 50 mcg tablet 50 mcg PO DAILY thyroid 03/18/23 [History Last Taken 03/18/23] loratadine 10 mg tablet (Allerclear) 10 mg PO DAILY allergies 03/18/23 [History Last Taken 03/18/23] magnesium hydroxide 400 mg/5 mL oral suspension (Pritchard Milk of Magnesia) 30 ml PO DAILY PRN constipation 03/18/23 [History Last Taken Unknown] omeprazole 20 mg capsule,delayed release 20 mg PO DAILY gerd 03/18/23 [History Last Taken 03/18/23] ondansetron 4 mg disintegrating tablet 4 mg PO Q8H PRN nausea and vomiting 03/18/23 [History Last Taken Unknown] polyethylene glycol 3350 17 gram/dose oral powder (ClearLax) 17 g PO DAILY laxative 03/18/23 [History Last Taken 03/18/23] tramadol 50 mg tablet 50 mg PO Q8H PRN pain 03/18/23 [History Last Taken Unknown] Allergy/AdvReac Type Severity Reaction Status Date / Time allopurinol Allergy PT UNSURE Verified 03/18/23 15:10 OF REACTION ciprofloxacin Allergy PT UNSURE Verified 03/18/23 15:10 OF REACTION erythromycin base Allergy PT UNSURE Verified 03/18/23 15:10 OF REACTION levofloxacin Allergy PT UNSURE Verified 03/18/23 15:10 OF REACTION paroxetine Allergy PT UNSURE Verified 03/18/23 15:10 OF REACTION Penicillins Allergy PT UNSURE Verified 03/18/23 15:10 OF REACTION Sulfa (Sulfonamide Allergy PT UNSURE Verified 03/18/23 15:10 Antibiotics) OF REACTION Tetracyclines Allergy PT UNSURE Verified 03/18/23 15:10 OF REACTION Social History (Updated 03/18/23 @ 18:06 by Cathy Jensen) history of recent travel: No sexually active: No do you think of yourself as: straight/heterosexual current gender identity: male Smoking Status: Never smoker substance use type: does not use ROS Constitutional Constitutional: Reports fatigue and weakness; Denies change in weight, chills orfever(s) Eyes Eyes: Denies change in vision Cardiovascular Cardiovascular: Denies chest pain, dyspnea on exertion or edema Respiratory/Chest Respiratory/Chest: Denies cough, shortness of breath at rest or wheezing Gastrointestinal Gastrointestinal: Denies abdominal pain, constipation, diarrhea, nausea or vomiting Genitourinary Genitourinary: Denies burning urination, difficulty urinating, dysuria, urinary frequency, urinary hesitancy or urinary urgency Musculoskeletal Musculoskeletal: Reports joint pain and joint stiffness; Denies arthralgias, back pain or joint swelling Neurologic Neurologic: Reports abnormal gait; Denies dizziness, focal weakness, headache(s), numbness or paresthesias Vital Signs Vital Signs Vital Signs: 03/18/23 13:54 Temperature 97.5 F L Temperature Source Temporal Pulse Rate 81 Respiratory Rate 16 Blood Pressure 126/62 H Blood Pressure Mean 83 Pulse Ox 98 Oxygen Delivery Method Room Air Weight Weight: 73.482 kg Body Mass Index (BMI) 31.6 Physical Exam Const alert, oriented x3 and no apparent distress Constitutional Narrative: Elderly male, fairly flat affect, sitting up in bed, conversing normally, no acute distress. General Appearance: cooperative and comfortable HEENT normocephalic, head/scalp atraumatic, hearing grossly normal bilaterally, nasal mucous membranes and turbinates normal and moist oral mucous membranes Eyes PERRL, EOMs intact bilaterally and conjunctivae normal Neck full ROM, no lymphadenopathy and supple Lymph Lymphatic: no lymphadenopathy noted Chest inspection of chest normal Resp normal respiratory effort, normal air movement, no use of accessory muscles and clear to auscultation bilaterally Cardio regular rate, regular rhythm, no murmurs and peripheral pulses 2+ throughout GI normal to inspection, nondistended, normoactive bowel sounds, soft to palpation,non-tender and non-distended Negative for no CVA tenderness or external exam normal Bladder / Kidney Exam: No catheter in place and No bladder normal to palpation Back/Spine normal ROM Extremity normal to inspection and no pedal edema Extremity Narrative: Left knee appears grossly normal, no swelling, erythema or tenderness to palpation. Skin no rashes or lesions noted Neuro moves all extremities and no focal motor deficits Speech: speech normal Psych mental status grossly normal Results Lab / Micro Data 03/18/23 15:15 03/18/23 15:15 Labs: Laboratory Results - last 24 hr 03/18/23 15:15: WBC 13.4 H, RBC 4.73, Hgb 13.8, Hct 42.4, MCV 89.6, MCH 29.2, MCHC 32.5, RDW Std Deviation 43.8, RDW Coeff of Josue 13.2, Plt Count 552 H, MPV 8.8, Immature Gran % (Auto) 1.500 H, Neut % (Auto) 65.7, Lymph % (Auto) 20.7, Nuckolls % (Auto) 9.5, Eos % (Auto) 1.6, Baso % (Auto) 1.0, Absolute Neuts (auto) 8.8 H, Absolute Lymphs (auto) 2.78, Nucleated RBC % 0, Sodium 138, Potassium 3.6, Chloride 105, Carbon Dioxide 30.0, Anion Gap 3 L, BUN 14, Creatinine 0.87, Estim Creat Clear Calc 45.50, Est GFR (MDRD) Af Amer 107, Est GFR (MDRD) Non-Af 89, BUN/Creatinine Ratio 16.0, Glucose 91, Calcium 10.0 03/18/23 15:23: Urine Color Yellow, Urine Clarity Cloudy, Urine pH 6.0, Ur Specific Hamlet 1.015, Urine Protein 100 H, Urine Glucose (UA) Normal, Urine Ketones Negative, Urine Occult Blood 50 H, Urine Nitrite Positive H, Urine Bilirubin Negative, Urine Urobilinogen Normal, Ur Leukocyte Esterase 500 H, Urine RBC 0-5 SEEN, Urine WBC 25-50 SEEN, Ur Squamous Epith Cells 0 SEEN, Urine Bacteria 1+, Urine Mucus 0 SEEN Assessment & Plan Assessment/Plan (1) Weakness: (2) Chronic pain of left knee: (3) UTI (urinary tract infection): PLAN: Plan Patient is an 82-year-old male who presented to [facility] ED on03/18/2023 from home with worsening left knee pain and debility. 1. Debility, severe left knee osteoarthritis with chronic pain Patient lives at home by himself in [place]. On review of [facility] records, has had 2 admissions in the past 3 to 4 months, both at [facility] for worsening kneepain and functional decline. Required SNF placement after each admission. Nephew brought him to the ED today because he could not get out of bed. Left knee XR at [facility] in January showed tricompartmental OA worst in the medial compartment and moderate in degree, with diffuse osteopenia. Orthopedics followed there, recommendation was for knee replacement; patient states that is currently scheduled for early May. Pain control for the knee has been adequate but he generally feels weak at baseline. ? Admit under inpatient status to [facility]. PT/OT/case management consulted. Anticipate patient will need SNF placement on discharge. Continue tramadol 50 mg every 8 hours as needed, Tylenol as needed, Voltaren gel daily for pain control for knee. 2. Suspected UTI, history of urinary retention, BPH Patient follows with urology at [facility]. Has required Schwartz catheter on both recent admissions noted above, and was discharged with Schwartz catheter in place in late January. Apparently passed voiding trial in outpatient setting, Schwartz has been out for about 2 weeks now. UA on admit showed 500 leukocyte esterase, positive nitrates, 25-50 WBCs, 1+ bacteria. WBC count 13, otherwise afebrile and hemodynamically stable. Unable to find any urine culture data from previousadmissions. ? Patient given 1 dose of aztreonam in the ED due to multiple listed allergies. Will start ceftriaxone tomorrow morning, low concern for severe allergy to cephalosporins. Urine culture pending. Trend CBC. Monitor bladder scans every8 hours for now, have strong suspicion patient will need a Schwartz catheter duringhis admission. Renal/bladder ultrasound ordered. Continue home alfuzosin, finasteride. 3. Asthma/COPD on intermittent 2L NC at home, RICKY on 2L at night, pulmonary fibrosis Information obtained from documentation from recent [facility] admission. Satting inmid 90s on room air in the ED, no increased work of breathing noted. Notably intolerant of CPAP for RICKY per history. ? Continue home 2 L nasal cannula as needed here. Continue home albuterol as needed, fluticasone inhaler twice daily, loratadine. Chronic medical conditions: ? Hypertension: Continue home hydrochlorothiazide. ? Hyperlipidemia: Continue on statin. ? GERD: Continue PPI. ? Hand tremor: Left hand greater than right at baseline. Not on medication for this. ? Obesity: BMI 31 on admit. Complicates care, recovery and prognosis. ? Hypothyroidism: Continue home Synthroid. ? Vitamin B12 deficiency: Continue home supplement. DVT prophylaxis: Lovenox CODE STATUS: Full code, verified Expected disposition: SNF, TBD Total clinical time spent by myself addressing the patient's medical issues, reviewing all the data, and collaborating with patient's care team: 55 minutes. Charges/Coding Visit Charges Inpatient E&M: 00655 Init Hosp L2 03/18/23 2100 <Electronically signed by Channing Bridges DO> Cosigner Signature (if applicable): CC: ROOPA MADERA; Dr. Channing Bridges DO~ Signed [facility] Work Phone: 1(620) 102-411512-03-2023 Discharge summary Author Zechariah Post [facility] March 18, 2023 5:24pm Note Date/Time March 18, 2023 2 :31pm [facility] Medical Records Department [address] [place] [address] Emergency Department Summary 03/18/23 MR#: [id number] Acct: [id number] Name: DOROTEO GONG Rep #:[id number] : 1940 82 From: Zechariah Post MD PCP: ROOPA MADERA Status:ADM IN Location: [facility] [id number] HPI History of Present Illness Chief Complaint: Lower Extremity Injury Narrative Narrative: 82-year-old male past medical history of chronic left knee pain, states he is supposed to have surgery by Dr. Marroquin that keeps getting put off, was discharged from rehab in [place] yesterday afternoon. He had been there for few weeks after hospitalization. He states he has chronic left knee pain that is worse with weightbearing. He presents with his nephew because he had called hisnephew because he was unable to ambulate and get off the toilet this morning. He denies any fevers or chills, but states he has so much pain in his left knee that he has been having problems even using his walker. While he states that hethinks home health care might be coming tomorrow, there are safety concerns regarding him being at home alone and being able to perform his activities of daily living secondary to his chronic left knee pain. [facility] Medical History (Updated 03/18/23 @ 16:43 by Zechariah Post MD) Asthma Benign prostate hyperplasia Chronic kidney disease COPD (chronic obstructive pulmonary disease) Emphysema lung GERD (gastroesophageal reflux disease) HTN (hypertension) Hypothyroid Major depression Muscle weakness Obesity Obstructive sleep apnea Pulmonary disease Pulmonary fibrosis Pulmonary HTN Home Medications albuterol sulfate 90 mcg/actuation aerosol inhaler 2 puff inhalation Q6H PRN ASTHMA 03/18/23 [History Last Taken Unknown] alfuzosin 10 mg tablet,extended release 24 hr 10 mg PO DAILY 03/18/23 [History Last Taken 03/18/23] atorvastatin 10 mg tablet 10 mg PO QHS 03/18/23 [History Last Taken 03/17/23] carboxymethylcellulose sodium 0.5 % eye drops in a dropperette 1 drp EACH EYE DAILY PRN dry eye(s) 03/18/23 [History Last Taken Unknown] cyanocobalamin (vitamin B-12) 1,000 mcg capsule 2,000 mcg PO DAILY 03/18/23 [History Last Taken 03/18/23] diclofenac sodium 1 % topical gel (Voltaren Arthritis Pain) 2 g topical DAILY 03/18/23 [History Last Taken 03/18/23] ergocalciferol (vitamin D2) 1,250 mcg (50,000 unit) capsule (Drisdol) 1,250 mcg PO QWEEK 03/18/23 [History Last Taken Unknown] finasteride 5 mg tablet 5 mg PO DAILY 03/18/23 [History Last Taken 03/18/23] fluticasone propionate 110 mcg/actuation HFA aerosol inhaler (Flovent HFA) 2 inhinhalation BID 03/18/23 [History Last Taken 03/18/23] hydrochlorothiazide 25 mg tablet 25 mg PO DAILY 03/18/23 [History Last Taken 03/17/23] ipratropium bromide 42 mcg (0.06 %) nasal spray 2 spray intranasal DAILY 03/18/23 [History Last Taken 03/18/23] levothyroxine 50 mcg tablet 50 mcg PO DAILY 03/18/23 [History Last Taken 03/18/23] loratadine 10 mg tablet (Allerclear) 10 mg PO DAILY 03/18/23 [History Last Taken 03/18/23] magnesium hydroxide 400 mg/5 mL oral suspension (Pritchard Milk of Magnesia) 30 ml PO DAILY PRN constipation 03/18/23 [History Last Taken Unknown] omeprazole 20 mg capsule,delayed release 20 mg PO DAILY 03/18/23 [History Last Taken 03/18/23] ondansetron 4 mg disintegrating tablet 4 mg PO Q8H PRN nausea and vomiting 03/18/23 [History Last Taken Unknown] polyethylene glycol 3350 17 gram/dose oral powder (ClearLax) 17 g PO DAILY 03/18/23 [History Last Taken 03/18/23] tramadol 50 mg tablet 50 mg PO Q8H PRN pain 03/18/23 [History Last Taken Unknown] Allergy/AdvReac Type Severity Reaction Status Date / Time allopurinol Allergy PT UNSURE Verified 03/18/23 15:10 OF REACTION ciprofloxacin Allergy PT UNSURE Verified 03/18/23 15:10 OF REACTION erythromycin base Allergy PT UNSURE Verified 03/18/23 15:10 OF REACTION levofloxacin Allergy PT UNSURE Verified 03/18/23 15:10 OF REACTION paroxetine Allergy PT UNSURE Verified 03/18/23 15:10 OF REACTION Penicillins Allergy PT UNSURE Verified 03/18/23 15:10 OF REACTION Sulfa (Sulfonamide Allergy PT UNSURE Verified 03/18/23 15:10 Antibiotics) OF REACTION Tetracyclines Allergy PT UNSURE Verified 03/18/23 15:10 OF REACTION Social History Smoking Status: Never smoker ROS ROS ED ROS Narrative Constitutional: No fever, no chills. HEENT: No sore throat. No neck pain. No loss of vision. No rhinorrhea. Cardiovascular: No chest pain. No palpitations. No pedal edema. Respiratory: No cough, no shortness of breath. Abdominal: No abdominal pain. No nausea. No vomiting. Genitourinary: No dysuria. No hematuria. Musculoskeletal: No myalgias. Left knee pain worse with standing and weightbearing. Neurologic: No headaches. No dizziness. No lightheadedness. Skin: No rash. No change in color. Psychiatric: No depression. No anxiety. EXAM Physical Exam Narrative Exam Narrative: Afebrile. Vital signs noted. HEENT: Normocephalic. Atraumatic. PERRL, EOMI. Neck soft and supple. No pointtenderness or step off. Cardiovascular: Regular rate and rhythm. No murmurs, rubs, or gallops appreciated. Respiratory: No tachypnea. Lungs clear to auscultation bilaterally. Gastrointestinal: Abdomen soft, nontender, with normoactive bowel sounds. No rebound or guarding. Neurological: Awake. Alert. Nonfocal, nonlateralizing. Skin: No rash. Normal color. No pallor. Musculoskeletal: No pedal edema. Full range of motion extremities. However, range of motion of left knee limited secondary to pain. Flexion extension mechanisms intact bilaterally. Const Vital Signs: 03/18/23 13:54 Temperature 97.5 F L Temperature Source Temporal Pulse Rate 81 Respiratory Rate 16 Blood Pressure 126/62 H Blood Pressure Mean 83 Pulse Ox 98 Oxygen Delivery Method Room Air MDM MDM MDM Narrative Medical decision making narrative: I had a lengthy discussion with the patient and his nephew. They are very concerned about him being at home alone, at least overnight. He is willing to be placed in assisted living or in a rehab facility again. We will check baseline laboratories insofar as a CBC, BMP, and urinalysis. I will also obtain an EKG. Patient will be discussed with the hospitalist for observation. Socialwork is not available in the emergency department currently. I reviewed his laboratory work from today and he has a leukocytosis slightly elevated at 13.4 with hemoglobin normal at 13.8, platelet count slightly elevated at 552 which may be an acute phase reactant. His electrolyte panel is grossly unremarkable except for anion gap low at 3. BUN and creatinine are normal. Urinalysis is positive for urinary tract infection with 25-50 WBCs. I do not feel x-rays of the knee are indicated as he has had chronic pain. However, given his inability to ambulate and generalized weakness, I do feel that he requires admission. He has multiple allergies to multiple antibiotics. His urine will be sent for culture and he was started on aztreonam intravenously. I discussed patient with Dr. Bridges for admission as he will require placement. He would like him placed on the medical surgical floor full admit given his generalized weakness as well. Disposition is admit in stable condition. History & Record Review Discussion w/independent historian: Patient and Family (Nephew) Additional record(s) reviewed:: Prior ED visit Lab Data Attestation: I reviewed the patient's lab results. Labs: Laboratory Results - last 24 hr 03/18/23 03/18/23 15:15 15:23 WBC 13.4 H RBC 4.73 Hgb 13.8 Hct 42.4 MCV 89.6 MCH 29.2 MCHC 32.5 RDW Std Deviation 43.8 RDW Coeff of Josue 13.2 Plt Count 552 H MPV 8.8 Immature Gran % (Auto) 1.500 H Neut % (Auto) 65.7 Lymph % (Auto) 20.7 Nuckolls % (Auto) 9.5 Eos % (Auto) 1.6 Baso % (Auto) 1.0 Absolute Neuts (auto) 8.8 H Absolute Lymphs (auto) 2.78 Nucleated RBC % 0 Sodium 138 Potassium 3.6 Chloride 105 Carbon Dioxide 30.0 Anion Gap 3 L BUN 14 Creatinine 0.87 Estim Creat Clear Calc 45.50 Est GFR (MDRD) Af Amer 107 Est GFR (MDRD) Non-Af 89 BUN/Creatinine Ratio 16.0 Glucose 91 Calcium 10.0 Urine Color Yellow Urine Clarity Cloudy Urine pH 6.0 Ur Specific Hamlet 1.015 Urine Protein 100 H Urine Glucose (UA) Normal Urine Ketones Negative Urine Occult Blood 50 H Urine Nitrite Positive H Urine Bilirubin Negative Urine Urobilinogen Normal Ur Leukocyte Esterase 500 H Urine RBC 0-5 SEEN Urine WBC 25-50 SEEN Ur Squamous Epith Cells 0 SEEN Urine Bacteria 1+ Urine Mucus 0 SEEN Discharge Plan Dx/Rx/DC Orders Clinical Impression: Inability to perform activities of daily living, UTI (urinary tract infection),Chronic pain of left knee, Weakness, At risk for falls Disposition Disposition: Acute Care Hospital [facility] What to do if you have Problems For any increased pain, shortness of breath, bleeding, nausea or vomiting, chestpain, or any unexpected problems, contact your Primary Care Provider. Call [facility] ([phone]) or report to the closest Emergency Room. Call 911 if necessary. 03/18/23 1645 <Electronically signed by Zechariah Post MD> Cosigner Signature (if applicable): CC: ROOPA MADERA ~ Signed ADDENDUM by Dr. Zechariah Post MD on 03/18/23 at 1724 EKG was obtained and interpreted by myself independently as normal sinus rhythm at 78 bpm without ectopy or acute ST changes. There is a right bundle branch block. 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 03/18/23 1724<Electronically signed by Zechariah Post MD> Cosigner Signature (if applicable): cc: ROOPA MADERA ~* Signed [facility] Work Phone: 1(550) 901-209311-20-2023 History of Present illness Narrative* Jaylyn Ortiz, [employer] REPRESENTATIVE - [employer] AND REC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 - 03/05/2023 1:20 PM EST Images from the original note were not included. [facility] Pulmonary Medicine [address] [facility] [address] Dept: [phone] Dept Loc: [phone] Date of Service: 03/05/2023 Visit type: An Established patient Chief Complaint/Reason for Referral: One month follow up SUBJECTIVE History of Present Illness: Doroteo Gong ( 1940) is a 82 y.o. male patient, with significant PMH of COPD with asthma, obstructive sleep apnea not on CPAP, nocturnal oxygen, pulmonary hypertension, interstitial lung disease, GERD being seen for one month follow up for dyspnea. He is here today in a wheelchair, currently in rehab at [facility]. His onlycomplaint is nasal congestion. He denies any shortness of breath, coughing or wheezing. He is 94% on room air today and uses oxygen at night instead of a CPAP. Recent imaging shows diffuse mild emphysema with subpleural fibrosis in the bases. He uses Flovent twice a day and nebulizers as needed. He was recently in the hospital for his leg giving out and hoping to have a knee replacement at theend of April. He had an EKG during ER visit reflecting atrial flutter. He has occasional chest pain, no heart palpitations. He has chronic lower extremity swelling, which is improved since last visit. He is asking for clearance to have a knee replacement at the end of April. Patient is his own decision-maker. OBJECTIVE MEDICAL HISTORY: Past Medical History: Diagnosis Date Arthritis knees hands Asthma Chronic pain GERD (gastroesophageal reflux disease) Hyperlipidemia Kidney stone 2012 Prostate disease Sleep apnea Thyroid disease SURGICAL HISTORY: Past Surgical History: Procedure Laterality Date APPENDECTOMY BACK SURGERY 2013 slipped disc CATARACT EXTRACTION CHOLECYSTECTOMY JOINT REPLACEMENT Right 2014 LITHOTRIPSY 3-4 times OTHER SURGICAL HISTORY hemorroid removed OTHER SURGICAL HISTORY Left 12/19/2017 stent placement, cystoscopy and pyelogram, Laser Lithotripsy SINUS SURGERY ALLERGIES: Allergies Allergen Reactions Allopurinol Unknown Erythromycin Unknown Penicillins Unknown Patient tolerates cephalosporins Sulfa Antibiotics Unknown Pt does not know reaction Tetracyclines & Related Unknown Levofloxacin Other jittery Ciprofloxacin Unknown Paroxetine Other Fatigue MEDICATIONS: Current Outpatient Medications: acetaminophen (Tylenol) 500 MG tablet, Take 2 tablets (1,000 mg) by mouth 3 times daily for 14 days., Disp: , Rfl: albuterol 108 (90 Base) MCG/ACT inhaler, Inhale 2 puffs every 6 hours as needed., Disp: , Rfl: alfuzosin ER (Uroxatral) 10 MG 24 hr tablet, Take 1 tablet (10 mg) by mouth daily., Disp: 90 tablet, Rfl: 3 atorvastatin (Lipitor) 10 MG tablet, Take 10 mg by mouth daily., Disp: , Rfl: carboxymethylcellulose (Refresh Plus) 0.5 % ophthalmic solution, Administer 1 drop into both eyes if needed for dry eyes., Disp: , Rfl: cyanocobalamin (CVS Vitamin B-12) 1000 MCG tablet, Take 1,000 mcg by mouth., Disp: , Rfl: Diclofenac Sodium (Voltaren) 1 % gel, Apply 2 g topically 2 times daily for 7 days. Left knee., Disp: , Rfl: ergocalciferol (Vitamin D2) 1.25 MG (53160 UT) capsule, Take 1 capsule (1.25 mg) by mouth 1 (one) time per week for 8 doses., Disp: , Rfl: escitalopram (Lexapro) 10 MG tablet, Take 10 mg by mouth daily., Disp: , Rfl: finasteride (Proscar) 5 MG tablet, Take 1 tablet (5 mg) by mouth daily., Disp: 90 tablet, Rfl: 3 fluticasone (Flovent) 110 MCG/ACT inhaler, Inhale 2 puffs in the morning and 2 puffs before bedtime., Disp: , Rfl: hydroCHLOROthiazide (HYDRODiuril) 25 MG tablet, Take 25 mg by mouth every morning., Disp: , Rfl: ipratropium (Atrovent) 0.06 % nasal spray, Administer 2 sprays into affected nostril(s)., Disp: , Rfl: levothyroxine (Synthroid, Levoxyl) 50 MCG tablet, Take 50 mcg by mouth in the morning., Disp: , Rfl: magnesium hydroxide (Milk of Magnesia) 800 MG/5ML suspension, Take by mouth Daily as needed for constipation., Disp: , Rfl: omeprazole (PriLOSEC) [address] capsule, Take 20 mg by mouth in the morning., Disp: , Rfl: ondansetron ODT (Zofran-ODT) 4 MG disintegrating tablet, Take 4 mg by mouth every 8 hours as neededfor nausea or vomiting., Disp: , Rfl: polyethylene glycol, PEG, 3350 (Glycolax) 17 GM/SCOOP powder, Take by mouth., Disp: , Rfl: simvastatin (Zocor) 20 MG tablet, Take 20 mg by mouth in the morning., Disp: , Rfl: SOCIAL HISTORY: Social History Tobacco Use Smoking status: Never Smokeless tobacco: Never Substance Use Topics Alcohol use: No FAMILY HISTORY: Family History Problem Relation Name Age of Onset Heart failure Mother Diabetes Mother REVIEW OF SYSTEMS: Review of Systems Constitutional: Positive for activity change and fatigue. HENT: Positive for congestion. Nasal congestion Respiratory: Negative for cough, chest tightness, shortness of breath and wheezing. Cardiovascular: Positive for leg swelling. Negative for chest pain. Musculoskeletal: Positive for arthralgias, back pain and gait problem. Negative for myalgias. Skin: Negative for color change and rash. Psychiatric/Behavioral: The patient is not nervous/anxious. All other systems reviewed and are negative. VITAL SIGNS: BP 129/80 Pulse 76 Temp 36 C (96.8 F) (Temporal) Ht 5' (1.524 m) Wt 156 lb 9.6 oz (71 kg) SpO2 94% BMI 30.58 kg/m PHYSICAL EXAM: Physical Exam Vitals reviewed. Constitutional: General: He is not in acute distress. Appearance: He is obese. He is ill-appearing. HENT: Head: Normocephalic and atraumatic. Nose: Nose normal. Eyes: Pupils: Pupils are equal, round, and reactive to light. Cardiovascular: Rate and Rhythm: Normal rate and regular rhythm. Heart sounds: Normal heart sounds. No murmur heard. No friction rub. Pulmonary: Effort: Pulmonary effort is normal. No respiratory distress. Breath sounds: No stridor. No wheezing, rhonchi or rales. Comments: Diminished Musculoskeletal: Right lower leg: Edema present. Left lower leg: Edema present. Comments: +2 LE edema Skin: General: Skin is warm and dry. Capillary Refill: Capillary refill takes less than 2 seconds. Neurological: Mental Status: He is alert. Comments: Oriented x3, appears to have somewhat of a gaze/stare when speaking to him Psychiatric: Thought Content: Thought content normal. DATA REVIEWED: PFT's--01/2021 Units Pred PreDrug Pre%Pred Post Post%Pred %Change FVC L,btps 2.42 1.75 72. 1.92 79. 10. FEV1 L,btps 1.64 1.31 80. 1.45 88. 10. FEV1/FVC (%) % 71. 75. 105. 75. 106. 0. OXA47-34% L/s 1.06 0.98 93. 1.20 114. 23. FEFmax L/s 5.01 4.95 99. 5.40 108. 9. MVV in,btps 77.69 49.76 64. Lung Volumes (Body Box) Units Pred PreDrug Pre%Pred TLC L,btps 4.97 VC L,btps 2.42 IC L,btps 1.77 FRC L,btps 3.21 ERV L,btps 0.66 RV L,btps 2.55 RV/TLC (%) % 51. VTG L,btps RAW H2O/L/s 1.44 SGaw cmH2O/L 0.22 Diffusion (DLCO) Units Pred PreDrug Pre%Pred DLCO ml/min/mmHg,stpd 19.64 11.41 58. DLCOHb ml/min/mmHg,stpd 19.64 11.41 58. VAsb L,btps 4.86 2.63 54. D/VAsb ml/min/mmHg/L,stpd 4.04 4.34 107. D/VAsbHb ml/min/mmHg/L,stpd 4.04 4.34 107. VInsp L 2.02 Hgb g/dl 14.60 COHb % Nitrogen Washout Units Pred PreDrug Pre%Pred TLC L,btps 4.97 4.14 83. VC L,btps 2.42 2.34 97. FRC L,btps 3.21 2.16 67. IC L,btps 1.77 1.98 112. ERV L,btps 0.66 0.36 54. RV L,btps 2.55 1.80 71. RV/TLC (%) % 51. 43. 85. PHYSICIAN INTERPRETATION Mild restrictive ventilatory impairment with moderately decrease in gas Exchange may be compatible with the Dx of restrictive lung disease Total lung Capacity is normal Border line response to BD therapy CT chest (07/07/22) IMPRESSION: 1. COPD is evidence of chronic pulmonary hypertension. 2. 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 3. No pathologic pulmonary nodules. ECHO 09/2020 1. Left ventricle: Systolic function is normal by visual assessment. The estimated ejection fraction is 55%. There are no regional wall motion abnormalities. Doppler parameters are consistent with abnormal left ventricular relaxation (grade 1 diastolic dysfunction). 2. Right ventricle: The cavity size is normal. Systolic function is mildly decreased by visual assessment. Right ventricular systolic pressure is within the normal range. The RV pressure during systole by Doppler is 29 mm Hg. 3. Right atrium: Central venous pressure (est): 3 mm Hg. 4. No significant valve disease. ASSESSMENT and PLAN Emphysema in non-smoker -Mild findings on CT chest. His Alpha-1 was normal. -Monitor oxygenation. 93% today on RA. Keep SPO2 88% or greater. Doesn't typically use O2 during the day-only at night. Restrictive lung disease/ILD -Chronic interstitial changes on imaging. Consider this is from chronic aspiration?however MBS 2021was negative for aspiration. Needs ongoing aspiration precautions. --No dyspnea complaints but his activity is essentially limited Obesity/RICKY, intolerant of CPAP -continue nocturnal O2 -new finding of Aflutter on ER report but HR regular rate/rhythm today Suspected Pulmonary hypertension -Evidence of enlarged PA on imaging, could be group 2 or 3? -ECHO from 2020 RV pressure was 29 New Aflutter? -Noted on EKG in ED, looks rate controlled. -Recommend seeing cardiology in setting of possible upcoming knee surgery Pre-op clearance - Planning for knee replacement at [facility] at the end of April. He is high risk for surgery and will need to optimize volume status. -We will need to see back with pulmonary prior to clearance but would advise against this at this time due tohis co-morbid conditions. He is currently at [facility] for rehab which is in [place]. Referral placed for cardiology for repeat EKG for possible a flutter and volume optimization. Need to call rehab facility to schedule appointment with coordinator. Has nephew that is POA (?). FOLLOW UP: 8 weeks with DARION Orosco CNP Pulmonary & Sleep Medicine documented in this [facility]11-20-2023 Instructions* Patient Instructions* Shazia Aguilar - 03/05/2023 1:20 PM EST YOUR APPOINTMENT TODAY WAS WITH THE [facility] L[facility], COPD CLINIC, PULMONARY AND SLEEP MEDICINE OFFICE. PLEASE CALL OUR OFFICE AT [phone] for our [place] office location or [phone] for our [place] location, IF YOU HAVE NOT RECEIVED YOUR TEST RESULTS 7 DAYS AFTER TESTING IS COMPLETED. PLEASE REMEMBER TO REQUEST REFILLS AT YOUR OFFICE VISITS. PHONE/FAX REQUESTS REQUIRE 48-72 HOURS FOR RESPONSE. A FRIENDLY REMINDER COPAYS ARE DUE AT TIME OF SERVICE. THANK YOU. Our Patients Are Important! We want to improve and you can help. After your visit we want you to feel: Listened to, Respected and have your health care explained. You may receive a survey asking you about your visit. Please complete the survey. We will use your feedback to make improvements. COVID-19 VACCINATION INFORMATION: . [phone] [email or web address] [facility] Central Scheduling [phone] [facility] Sleep Scheduling [phone] documented in this [facility]11-15-2023 Telephone encounter Note* Telephone Encounter - Ayanna Romeo - 02/28/2023 8:49 AM EST Called pt and LM to call back for [phone] Miscellaneous Notes* Telephone Encounter - Ayanna Romeo - 02/28/2023 8:49 AM EST Called pt and LM to call back for VT * Telephone Encounter - Tk Wynne MD - 02/19/2023 11:10 AM EST Patient was seen in the hospital with acute urinary retention. He has had multiple episodes of thisover the past several months and always required a schwartz for resolution. Needs to be seen for void trial and then will also need an appointment for discussions of future management of chronic retention. documented in this [facility]11-14-2023 History of Present illness Narrative* Bipin Pierson, - 02/27/2023 11:15 AM EST [facility] [address] [facility] [id number] Dept: [phone] Dept Loc: [phone] Assessment and Recommendations Doroteo was seen today for new patient. Diagnoses and all orders for this visit: Chronic cough (Primary) Chronic rhinitis Suspect his chronic cough is related to his extensive pulmonary history. No history of smoking. Cancontinue Flonase and Atrovent for his chronic rhinitis symptoms. Follow up PRN. Subjective: Patient: Doroteo Gong is a 82 y.o. male HPI Doroteo Gong is a 82 y.o. male who presents to clinic today for evaluation of chronic cough. Patient states he has had his cough forever and has not noticed that it is worsening. PMH of asthma/COPD, RICYK on 2L O2 (reportedly does not tolerate CPAP), pulmonary fibrosis. He follows with pulmonology. Also has a history of GERD and is currently on Prilosec. He also reports history of chronic rhinorrhea for which he uses Flonase and Atrovent nasal sprays. No history of smoking. Review of Systems 14 point review of systems completed and all negative except as noted in HPI. Allergies Allergen Reactions Allopurinol Unknown Erythromycin Unknown Penicillins Unknown Patient tolerates cephalosporins Sulfa Antibiotics Unknown Pt does not know reaction Tetracyclines & Related Unknown Levofloxacin Other jittery Ciprofloxacin Unknown Paroxetine Other Fatigue Current Outpatient Medications Medication Sig Dispense Refill acetaminophen (Tylenol) 500 MG tablet Take 2 tablets (1,000 mg) by mouth 3 times daily for 14 days. albuterol 108 (90 Base) MCG/ACT inhaler Inhale 2 puffs every 6 hours as needed. alfuzosin ER (Uroxatral) 10 MG 24 hr tablet Take 1 tablet (10 mg) by mouth daily. 90 tablet 3 carboxymethylcellulose (Refresh Plus) 0.5 % ophthalmic solution Administer 1 drop into both eyes ifneeded for dry eyes. cyanocobalamin (CVS Vitamin B-12) 1000 MCG tablet Take 1,000 mcg by mouth. ergocalciferol (Vitamin D2) 1.25 MG (92209 UT) capsule Take 1 capsule (1.25 mg) by mouth 1 (one) time per week for 8 doses. escitalopram (Lexapro) 10 MG tablet Take 10 mg by mouth daily. finasteride (Proscar) 5 MG tablet Take 1 tablet (5 mg) by mouth daily. 90 tablet 3 fluticasone (Flovent) 110 MCG/ACT inhaler Inhale 2 puffs in the morning and 2 puffs before bedtime. hydroCHLOROthiazide (HYDRODiuril) 25 MG tablet Take 25 mg by mouth every morning. ipratropium (Atrovent) 0.06 % nasal spray Administer 2 sprays into affected nostril(s). levothyroxine (Synthroid, Levoxyl) 50 MCG tablet Take 50 mcg by mouth in the morning. magnesium hydroxide (Milk of Magnesia) 800 MG/5ML suspension Take by mouth Daily as needed for constipation. omeprazole (PriLOSEC) [address] capsule Take 20 mg by mouth in the morning. ondansetron ODT (Zofran-ODT) 4 MG disintegrating tablet Take 4 mg by mouth every 8 hours as needed for nausea or vomiting. polyethylene glycol, PEG, 3350 (Glycolax) 17 GM/SCOOP powder Take by mouth. simvastatin (Zocor) 20 MG tablet Take 20 mg by mouth in the morning. No current facility-administered medications for this visit. Past Medical History: Diagnosis Date Arthritis knees hands Asthma Chronic pain GERD (gastroesophageal reflux disease) Hyperlipidemia Kidney stone 2013 Prostate disease Sleep apnea Thyroid disease Past Surgical History: Procedure Laterality Date APPENDECTOMY BACK SURGERY 2014 slipped disc CATARACT EXTRACTION CHOLECYSTECTOMY JOINT REPLACEMENT Right 2014 LITHOTRIPSY 3-4 times OTHER SURGICAL HISTORY hemorroid removed OTHER SURGICAL HISTORY Left 12/19/2017 stent placement, cystoscopy and pyelogram, Laser Lithotripsy SINUS SURGERY Family History Problem Relation Name Age of Onset Heart failure Mother Diabetes Mother Social History Tobacco Use Smoking status: Never Smokeless tobacco: Never Substance Use Topics Alcohol use: No Objective: Ht 5' (1.524 m) Wt 165 lb (74.8 kg) BMI 32.22 kg/m Physical Exam General: Patient is not in acute distress. Appearance: Patient is well-developed. Eyes: Conjunctiva/sclera: Conjunctivae normal. Pupils: Pupils are equal, round, and reactive to light. HENT: Jaw: No trismus. Ears: Microscope brought in for exam. Bilateral external ears normal. Right EAC normal, TM clear with normal middle ear landmarks. Left EAC normal, TM clear with normal middle ear landmarks Nose: No nasal deformity, mucosal edema or rhinorrhea. Mouth: Mucous membranes are not pale, not dry and not cyanotic. No oral lesions. Pharynx: Uvula midline. No oropharyngeal exudate or uvula swelling. Tonsils: No tonsillar exudate. No abnormal masses or lesions Neck: No lymphadenopathy Thyroid: No significant thyromegaly. Trachea: Trachea and phonation normal. No tracheal deviation. Pulmonary: Effort: Pulmonary effort is normal. No respiratory distress. Breath sounds: No stridor. Musculoskeletal: Head: Normocephalic and atraumatic. Neck: Full passive range of motion without pain, neck supple. Skin: General: Skin is warm and dry. Findings: No erythema or rash. Neurological: Cranial Nerves: No cranial nerve deficit. Sensory: No sensory deficit. Coordination: Coordination normal. Extremities: No significant peripheral edema or varicosities Psychiatric: Mood and Affect: Mood and affect normal. Cognition and Memory: Cognition and memory normal. documented in this [facility]11-06-2023 Nurse Note* Augusta Boudreaux RN - 02/19/2023 12:37 PM EST IV taken out. Gathered pts belongings. Called report to [facility]. Jeff vera transported pt to facility in [facility]. Schwartz went with pt per MD [phone] Nurse Note* Augusta Boudreaux RN - 02/19/2023 12:37 PM EST IV taken out. Gathered pts belongings. Called report to [facility]. Jeff vera transported pt to facility in [facility]. Schwartz went with pt per MD * Augusta Boudreaux RN - 02/19/2023 9:59 AM EST Spoke with MD urology, and director of casework department, per MD per urology note the recommendation was for voiding trial included requirements that needed to be met -- one of them was ambulating regularly, which he has not been doing per my daily progress note ever since then I have mentioned that he has not met criteria for the voiding trial (and thus would discharge with the Schwartz in place). Voiding trial not started at this time. Pt to leave with schwartz in place. at10:00 AM * Taisha Merino RN - 02/17/2023 12:12 AM EDT Pt resting in bed with eyes closed sleeping. Schwartz is draining and below abdomin. Pt appears comfortable at this time. Will continue to monitor. 0530- No acute issues over night pt resting in bed with cont pulse ox, schwartz draining below abdominand denies any pain at this time. * PURNIMA YOUNG - 02/14/2023 6:52 PM EDT RN notified Dr. Bridges of bladder scan results of 650 ml. * PURNIMA YOUNG - 02/14/2023 4:20 PM EDT Patient sat up in chair for approximately 15 minutes, then requested to go back to bed for dinner. RN encouraged patient to stay in chair for dinner, but patient was not interested. Two Rns for transfer back to bed. * PURNIMA YOUNG - 02/14/2023 12:27 PM EDT RN bladder scanned patient post void, 824ml noted. Dr. Bridges aware and spoke with patient. Orders for straight cath x1, recheck post void residual in 6 hours. documented in this [facility]11-06-2023 Miscellaneous Notes* Care Coordination - Unknown Case Management - 02/19/2023 11:51 AM EST Patient Choice Patient Name: DOROTEO GONG Date of : 1940 All Providers Sent Referral Name: [facility], [facility]. Phone: [phone] Address: [address] [place], [place] [id number] Name: [facility] Address: [address] [place] [address] [facility] Phone: [phone] Address: [address] [place] [id number] * Care Coordination - Jaylyn Patel - 02/19/2023 11:49 AM EST Discharge med list transmitted to [facility] via RegisterPatient per TCC request. 7000 was entered into [employer] for the [facility]. * Care Coordination - YURI Davis - 02/19/2023 11:17 AM EST Social work coverage today. Requested to arrange transport for discharge to [facility] . Reviewed chart, met with patient. He feels can go by ambulette. Discussed cost to be billed. Arranged ambulette with Jeff Milan for 1 pm. Notified TCC, RN, patient, [place], and Molecular Biologist. Patient notified his relative-Harshil Murguia. * Care Plan - Augusta Boudreaux RN - 02/19/2023 11:15 AM EST Problem: Knowledge Deficit Goal: Patient/family/caregiver demonstrates understanding of disease process, treatment plan, medications, and discharge instructions 02/19/2023 1115 by Augusta Boudreaux RN Outcome: Adequate for Discharge 02/19/2023 1024 by Augusta Boudreaux RN Outcome: Progressing Problem: Potential for Compromised Skin Integrity Goal: Skin Integrity is Maintained or Improved 02/19/2023 1115 by Augusta Boudreaux RN Outcome: Adequate for Discharge 02/19/2023 1024 by Augusta Boudreaux RN Outcome: Progressing Goal: Nutritional status is improving 02/19/2023 1115 by Augusta Boudreaux RN Outcome: Adequate for Discharge 02/19/2023 1024 by Augusta Boudreaux RN Outcome: Progressing Problem: Urinary Incontinence Goal: Perineal skin integrity is maintained or improved 02/19/2023 1115 by Augusta Boudreaux RN Outcome: Adequate for Discharge 02/19/2023 1024 by Augusta Boudreaux RN Outcome: Progressing The patient is Moderately Stable - Low risk of patient condition declining or worsening * Care Plan - Augusta Boudreaux RN - 02/19/2023 10:25 AM EST Problem: Knowledge Deficit Goal: Patient/family/caregiver demonstrates understanding of disease process, treatment plan, medications, and discharge instructions Outcome: Progressing Problem: Potential for Compromised Skin Integrity Goal: Skin Integrity is Maintained or Improved Outcome: Progressing Goal: Nutritional status is improving Outcome: Progressing Problem: Urinary Incontinence Goal: Perineal skin integrity is maintained or improved Outcome: Progressing The patient is Moderately Stable - Low risk of patient condition declining or worsening The patient's goals for the shift include safety The clinical goals for the shift include safety * Care Coordination - Cheli Solis RN - 02/19/2023 9:36 AM EST [facility] DOES have a bed avail and able to accept pt today. Phys updated for discharge orders. Per urology 02/15, pt needs voiding trial-bedside RN aware for completion. HARDEEP complete. * Care Coordination - Cheli Solis RN - 02/19/2023 8:50 AM EST Images from the original note were not included. Care Management Progress Note Medically stable for discharge once facility determined. Spoke with pt this am- if [facility] has a bed that would still be his first choice but agreeable to Ilya morton if no bed avail at first choice. Message to [facility] this am about bed avail- awaiting response. Will need voiding trial prior to discharge per urology notes last week. Will NOT need auth. Discharge Milestones and Delays Expected Date/Time: 02/19/[address] discharge order Complete med reconciliation Case mgmt discharge readiness Clinical Stability Diagnsotic Workup Expected Discharge History Expected Date/Time Set By Reviewed At 02/19/2023 Cheli Solis RN 02/19/2023 8:15 AM placement 02/19/2023 Cheli Solis RN 02/16/2023 8:10 AM placement, IV atb 02/16/2023 Cheli Solis RN 02/15/2023 8:12 AM poss placement 02/16/2023 Cheli Solis RN 02/14/2023 8:29 AM PT/OT vasc US 02/16/2023 Ramiro Baird MD 02/13/2023 3:37 PM 02/15/2023 Ramiro Baird MD 02/13/2023 2:38 AM Length of Stay (Days): 6 GMLOS: 2.8 * Care Plan - Petty Hernandez LPN - 02/18/2023 11:15 AM EST Problem: Knowledge Deficit Goal: Patient/family/caregiver demonstrates understanding of disease process, treatment plan, medications, and discharge instructions Outcome: Progressing Problem: Potential for Compromised Skin Integrity Goal: Skin Integrity is Maintained or Improved Outcome: Progressing Goal: Nutritional status is improving Outcome: Progressing Problem: Urinary Incontinence Goal: Perineal skin integrity is maintained or improved Outcome: Progressing * Care Plan - Taisha Merino RN - 02/16/2023 9:16 PM EDT Problem: Knowledge Deficit Goal: Patient/family/caregiver demonstrates understanding of disease process, treatment plan, medications, and discharge instructions Outcome: Progressing Problem: Potential for Compromised Skin Integrity Goal: Skin Integrity is Maintained or Improved Outcome: Progressing Goal: Nutritional status is improving Outcome: Progressing Problem: Urinary Incontinence Goal: Perineal skin integrity is maintained or improved Outcome: Progressing * Care Plan - Augusta Boudreaux RN - 02/16/2023 2:23 PM EDT Problem: Knowledge Deficit Goal: Patient/family/caregiver demonstrates understanding of disease process, treatment plan, medications, and discharge instructions Outcome: Progressing Problem: Potential for Compromised Skin Integrity Goal: Skin Integrity is Maintained or Improved Outcome: Progressing Goal: Nutritional status is improving Outcome: Progressing Problem: Urinary Incontinence Goal: Perineal skin integrity is maintained or improved Outcome: Progressing The patient is Moderately Stable - Low risk of patient condition declining or worsening The patient's goals for the shift include safety The clinical goals for the shift include safety * Care Coordination - Jaylyn Patel - 02/16/2023 1:29 PM EDT Referral placed to [facility] via [facility] per TCC request. Await review and response regarding ability to accept. TCC notified. * Care Coordination - Cheli Solis RN - 02/16/2023 12:15 PM EDT Images from the original note were not included. Care Management Progress Note Met with pt for alternate SNF choices- requesting [facility]. Admin assist to send referrals. Also messaged first choice- [facility] to see when a bed would be avail-awaiting response. Remains on IV rocephin. Will need voiding trial prior to discharge per urology. Does NOT need auth for placement and has had 3 midnights with medicare. Discharge Milestones and Delays Expected Date/Time: 02/19/[address] discharge order Complete med reconciliation Case mgmt discharge readiness Clinical Stability Diagnsotic Workup Expected Discharge History Expected Date/Time Set By Reviewed At 02/19/2023 Cheli Solis RN 02/16/2023 8:10 AM placement, IV atb 02/16/2023 Cheli Solis RN 02/15/2023 8:12 AM poss placement 02/16/2023 Cheli Solis RN 02/14/2023 8:29 AM PT/OT vasc US 02/16/2023 Ramiro Baird MD 02/13/2023 3:37 PM 02/15/2023 Ramiro Baird MD 02/13/2023 2:38 AM Length of Stay (Days): 3 GMLOS: 2.8 * Care Coordination - Cheli Solis RN - 02/15/2023 2:57 PM EDT [facility] does not have a bed avail. Attempted to meet with pt for alternate choice fromlist provide this am however pt sleeping soundly. Will follow in am. * Care Coordination - Jaylyn Patel - 02/15/2023 10:47 AM EDT Referral placed to [facility] per TCC request. Await review and response regarding ability to accept. TCC notified. * Care Coordination - Cheli Solis RN - 02/15/2023 10:43 AM EDT Care Managment Initial Assessment Date: 02/15/2023 Patient Name: Doroteo Gong : 1940 Patient Information Source of Information: Patient Cognition/Language: WFL - Within Functional Limits Permission given to speak with patient bilingual sales representative/caregiver as indicated: Confirmation of Payer with patient/family: Yes Payer Name: medicare : Yes Confirmation of Primary Care Physician: Confirmed PCP Name: roopa madera Seen in last 2 years?: Yes Primary Caregiver: Self If assistance needed, confirmed caregiver ready, willing and able to care for patient at discharge: Confirmed with: Living Arrangements Current Residence: House Number of Floors Number of Entry Steps: 1 (5) Bed/Bath Levels: Both first floor Facility: Facility Name: Plan to Return: Lives with: Alone Support Systems: Family members, Friends/neighbors, Home care staff Activities of Daily Living Ambulation: Independent (uses cane and walker) Bathing/Dressing: Independent Elimination/Continence/Toileting: Independent Feeding: Independent Who Assists with Activities of Daily Living: Instrumental Activities of Daily Living Prescription Coverage: Yes Pharmacy Used: [facility] Medication Management: Independent Transportation/Shopping: Assistance Provider Transportation/Shopping Assistance Provider Name: friend/nephew Transportation Mode: Car Needs Assistance with Transportation at Discharge: No Meal Preparation: Independent Laundry/Cleaning: Assistance Provider Finances/Bill Paying: Independent Communication: Independent Types of Care Services/Equipment Utilized Care Services: Skilled Home Health Services Care Services Provider Name: pt does not know name- checking with [facility] Dialysis Type: NA Durable Medical Equipment: Cane, Walker, Shower Seat, Nebulizer, Oxygen (Continuous or prn) Oxygen Flow Rate: wears 2L at HS and prn Patient's Goal/Discharge Plan Patient expects to be discharged to: SNF Discharge Planning Actions: Continue to follow, Intermediate Facility referral indicated [place] of choice: [facility] [place] of choice discussed, Choice list provided Patient's Choice Rights and [employer] and Collaborative Relationships Disclosed as Indicated for Post-Acute Care: Yes Interdisciplinary Team Engagement: PT/OT, Home Health Care Social Work Referral for: Additional Information: Pt adm for tx/evaluation of bilateral leg edema/inability to walk. Receiving IV rocephin. Geriatrics following. PT eval yesterday- recommends SNF. Met with pt- introduced self and role. Pt from home alone- assist from lady friend and nephew prn. Pt has active HC- checking with [employer] for company name/coverage. Pt uses walker and cane at baseline. Wears oxygen at HS and prn. Discussed discharge plan and therapy recommendation- pt is agreeable to SNF and asking to go back to [facility] if able- admin assist to send referral. Provided SNF list for review for alternate choices should bednot be avail. Pt will not need auth and has had 3 midnights under medicare for adm. Cheli Solis RN documented in this [place] [id number] Note* Care Coordination - Unknown Case Management - 02/19/2023 11:51 AM EST Patient Choice Patient Name: DOROTEO GONG Date of : 1940 All Providers Sent Referral Name: [facility] Phone: [phone] Address: [address] [place], [place] [id number] Name: [facility] Address: [address] [place], [place] [id number] Name: Ilya Foster CPAN Member Phone: [phone] Address: [address] [place] [address] [place] [address]-06-2023 Note* Care Coordination - Unknown Case Management - 02/19/2023 11:51 AM EST Patient Choice Patient Name: DOROTEO GONG Date of : 1940 All Providers Sent Referral Name: [facility] Phone: [phone] Address: [address] [place], [place] [id number] Name: [facility] Address: [address] [place] [address] Name: Ilya Foster CPAN Member Phone: [phone] Address: [address] [place] [id number] [place] [address]-06-2023 Note* Care Coordination - Jaylyn Patel - 02/19/2023 11:49 AM EST Discharge med list transmitted to [facility] via [facility] per TCC request. [id number] was entered into [employer] for the [facility]. [id number] Note* Care Coordination - Jaylyn Patel - 02/19/2023 11:49 AM EST Discharge med list transmitted to [facility] via [employer] per TCC request. [id number] was entered into [employer] for the [facility]. [id number] Hospital course Narrative* Ez Velázquez MD - 02/19/2023 11:24 AM EST Discharge Summary Doroteo Gong : 1940 ADMIT DATE: 02/12/2023 DISCHARGE DATE: 02/19/2023 PRIMARY CARE PHYSICIAN: ROOPA MADERA VISIT STATUS: Admission CODE STATUS: Full Code DISCHARGE DIAGNOSES: Principal Problem: Inability to walk Active Problems: Debility Declining functional status History of urinary retention At risk for delirium Polypharmacy HOSPITAL COURSE: Patient admitted 02/12/2023 for functional decline with inability to ambulate. 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 Initially presented with knee pain, difficulty walking, and functional decline. He had been discharged to home from [facility] two weeks prior, but due toliving alone with worsening knee pain & difficulty ambulating he returned to the ED. Evaluated by ortho and received L- knee CSI (02/13). Did have significant urinary retention during admission, so Schwartz was placed; found to have UTI so retention likely combination of longstanding BPH with LUTS + recent reduced ambulation + acute UTI. He did require a Schwartz during his prior admission in but was able to pass an outpatient voiding trial after discharge. SIGNIFICANT DIAGNOSTIC STUDIES: CXR portable: Increased interstitial lung markings bilaterally likely representing chronic lung changes, superimposed edema or inflammatory/infectious process is not entirely excluded. No sizable pleural effusion,focal consolidation or pneumothorax. XR L Knee: Tricompartmental osteoarthrosis worst in the medial compartment and moderate in degree. Diffuse osteopenia. CONSULTANTS: Orthopedics Geriatrics Urology RECOMMENDED NEXT STEPS: discharging with Schwartz in place due to recurrent urinary retention --> continue tamsulosin, encourage ambulation, monitor for (and treat aggressively) and constipation, and follow-up with urology for voiding trial PT/OT DISCHARGE MEDICATIONS: Medication List START taking these medications acetaminophen 500 MG tablet Commonly known as: Tylenol Take 2 tablets (1,000 mg) by mouth 3 times daily for 14 days. Replaces: acetaminophen 650 MG ER tablet Diclofenac Sodium 1 % gel Commonly known as: Voltaren Apply 2 g topically 2 times daily for 7 days. Left knee. ergocalciferol 1.25 MG (49656 UT) capsule Commonly known as: Vitamin D2 Take 1 capsule (1.25 mg) by mouth 1 (one) time per week for 8 doses. Start taking on: February 24, 2023 traMADol 50 MG tablet Commonly known as: Ultram Take 1 tablet (50 mg) by mouth every 8 hours as needed for moderate pain (4-6) or severe pain (7-10) for up to 3 days. CONTINUE taking these medications albuterol 108 (90 Base) MCG/ACT inhaler alfuzosin ER 10 MG 24 hr tablet Commonly known as: Uroxatral Take 1 tablet (10 mg) by mouth daily. carboxymethylcellulose 0.5 % ophthalmic solution Commonly known as: Refresh Plus [facility] Vitamin B-12 1000 MCG tablet Generic drug: cyanocobalamin escitalopram 10 MG tablet Commonly known as: Lexapro finasteride 5 MG tablet Commonly known as: Proscar Take 1 tablet (5 mg) by mouth daily. fluticasone 110 MCG/ACT inhaler Commonly known as: Flovent hydroCHLOROthiazide 25 MG tablet Commonly known as: HYDRODiuril ipratropium 0.06 % nasal spray Commonly known as: Atrovent levothyroxine 50 MCG tablet Commonly known as: Synthroid, Levoxyl magnesium hydroxide 800 MG/5ML suspension Commonly known as: Milk of Magnesia omeprazole [address] capsule Commonly known as: PriLOSEC ondansetron ODT 4 MG disintegrating tablet Commonly known as: Zofran-ODT polyethylene glycol (PEG) 3350 17 GM/SCOOP powder Commonly known as: Glycolax simvastatin 20 MG tablet Commonly known as: Zocor STOP taking these medications acetaminophen 650 MG ER tablet Commonly known as: Tylenol 8 Hour Replaced by: acetaminophen 500 MG tablet bisacodyl 10 MG/30ML enema Commonly known as: Fleet Bisacodyl pantoprazole 40 MG EC tablet Commonly known as: ProtoNix Where to Get Your Medications You can get these medications from any pharmacy Bring a paper prescription for each of these medications traMADol 50 MG tablet Information about where to get these medications is not yet available Ask your nurse or doctor about these medications acetaminophen 500 MG tablet Diclofenac Sodium 1 % gel ergocalciferol 1.25 MG (20391 UT) capsule DIET: Adult diet Regular ACTIVITY: Up with assist DISPOSITION: Skilled Facility FACILITY/HOME CARE AGENCY NAME: [facility] Follow up with Keshav Leigh MD [address] [facility] [address] [facility] [id number] Follow up Follow up with Dr. Leigh DISCHARGE TIME: 32 minutes SIGNED: Ez Velázquez MD 02/19/2023, 11:24 AM PHYSICAL EXAM: Vitals: BP (!) 145/70 (BP Location: Right arm, Patient Position: Sitting) Pulse 63 Temp 36.3 C (97.4 F) (Temporal) Resp 18 SpO2 96% Respiratory: Bibasilar crackles. Normal effort. NC in place at 2L. Cardiovascular: RRR. No M/R/G. No pedal edema. Abdomen: NBS. Soft. NT/ND. Schwartz in place. documented in this [facility]11-06-2023 Note* Care Coordination - YURI Davis - 02/19/2023 11:17 AM EST Social work coverage today. Requested to arrange transport for discharge to [facility] . Reviewed chart, met with patient. He feels can go by ambulette. Discussed cost to be billed. Arranged ambulette with Jeffehsan Mattsonens for 1 pm. Notified JIHAN RN, patient, [place], and Molecular Biologist. Patient notified his relative-Harshil Murguia. [id number] Note* Care Coordination - YURI Davis - 02/19/2023 11:17 AM EST Social work coverage today. Requested to arrange transport for discharge to [facility] . Reviewed chart, met with patient. He feels can go by ambulette. Discussed cost to be billed. Arranged ambulette with Jeff Milan for 1 pm. Notified JIHAN RN, patient, [place], and Molecular Biologist. Patient notified his relative-Harshil Murguia. [id number] Plan of care note* Care Plan - Augusta Boudreaux RN - 02/19/2023 11:15 AM EST Problem: Knowledge Deficit Goal: Patient/family/caregiver demonstrates understanding of disease process, treatment plan, medications, and discharge instructions 02/19/2023 1115 by Augusta Boudreaux RN Outcome: Adequate for Discharge 02/19/2023 1024 by Augusta Boudreaux RN Outcome: Progressing Problem: Potential for Compromised Skin Integrity Goal: Skin Integrity is Maintained or Improved 02/19/2023 1115 by Augusta Boudreaux RN Outcome: Adequate for Discharge 02/19/2023 1024 by Augusta Boudreaux RN Outcome: Progressing Goal: Nutritional status is improving 02/19/2023 1115 by Augusta Boudreaux RN Outcome: Adequate for Discharge 02/19/2023 1024 by Augusta Boudreaux RN Outcome: Progressing Problem: Urinary Incontinence Goal: Perineal skin integrity is maintained or improved 02/19/2023 1115 by Augusta Boudreaux RN Outcome: Adequate for Discharge 02/19/2023 1024 by Augusta Boudreaux RN Outcome: Progressing The patient is Moderately Stable - Low risk of patient condition declining or worsening [id number] Telephone encounter Note* Telephone Encounter - Tk Wynne MD - 02/19/2023 11:10 AM EST Patient was seen in the hospital with acute urinary retention. He has had multiple episodes of thisover the past several months and always required a schwartz for resolution. Needs to be seen for void trial and then will also need an appointment for discussions of future management of chronic retention. [facility] [id number] Miscellaneous Notes* Telephone Encounter - Tk Wynne MD - 02/19/2023 11:10 AM EST Patient was seen in the hospital with acute urinary retention. He has had multiple episodes of thisover the past several months and always required a schwartz for resolution. Needs to be seen for void trial and then will also need an appointment for discussions of future management of chronic retention. documented in this [facility]11-06-2023 Plan of care note* Care Plan - Augusta Boudreaux RN - 02/19/2023 10:25 AM EST Problem: Knowledge Deficit Goal: Patient/family/caregiver demonstrates understanding of disease process, treatment plan, medications, and discharge instructions Outcome: Progressing Problem: Potential for Compromised Skin Integrity Goal: Skin Integrity is Maintained or Improved Outcome: Progressing Goal: Nutritional status is improving Outcome: Progressing Problem: Urinary Incontinence Goal: Perineal skin integrity is maintained or improved Outcome: Progressing The patient is Moderately Stable - Low risk of patient condition declining or worsening The patient's goals for the shift include safety The clinical goals for the shift include safety [facility] [id number] Nurse Note* Augusta Boudreaux RN - 02/19/2023 9:59 AM EST Spoke with MD urology, and director of casework department, per MD per urology note the recommendation was for voiding trial included requirements that needed to be met -- one of them was ambulating regularly, which he has not been doing per my daily progress note ever since then I have mentioned that he has not met criteria for the voiding trial (and thus would discharge with the Schwartz in place). Voiding trial not started at this time. Pt to leave with schwartz in place. at10:00 AM [facility] [id number] Note* Care Coordination - Cheli Solis RN - 02/19/2023 9:36 AM EST [facility] DOES have a bed avail and able to accept pt today. Phys updated for discharge orders. Per urology 02/15, pt needs voiding trial-bedside RN aware for completion. HARDEEP complete. [facility] [id number] Note* Care Coordination - Cheli Solis RN - 02/19/2023 9:36 AM EST [facility] DOES have a bed avail and able to accept pt today. Phys updated for discharge orders. Per urology 02/15, pt needs voiding trial-bedside RN aware for completion. HARDEEP complete. [facility] [id number] History of Present illness Narrative* Estela Bazzi, PT - 02/19/2023 9:10 AM EST Images from the original note were not included. PHYSICAL THERAPY [facility] Treatment Note Name/MRN: Doroteo Gogn ([id number]) Date of : 1940 Age: 82 y.o. Room/Bed: N4-462/N4-462 A Discharge Recommendation: SNF Equipment Needed: TBD at next level of care Prior Level of Function ADL Assistance: Independent Ambulation Assistance: Independent Device(s) used: front wheeled walker Transfer Assistance: Independent Assessment Doroteo Gong was in bed supine upon entering the room. He was willing to get up to the chair with PT. He states his left knee and hip need to be replaced, and they are supposed to do that in April. He had been home for 2 weeks from a SNF , had to return to the hospital. He was unable to ambulate, unable to care for himself. He lives alone, has much difficulty with transfers and ambulation. His balance in standing is poor. He is requiring moderate assist with these activities. Recommend SNF upon discharge from hospital. Subjective In bed supine, finishing his breakfast. Willing to get up to the chair, doesn't know if he can ambulate yet. During transfer, audible crepitus was noted. Pain: RN managing pain. Medical Precautions: No active isolations Proper PPE donned/doffed in accordance with facility standards. Fall Risk: Villanueva Fall Risk Score: 85 (High Risk) Precautions/Restrictions: Left LE Weight Bearing: Weight Bearing As Tolerated Lines/Drains/Airways: tele, 2L O2 NC Overall Cognitive Status: WFL Overall Orientation Status: Oriented to Place, Oriented to Situation, and Oriented to Person Family/Caregiver Present: none Objective Ambulation Ambulation 1 Assistive device(s) used: none Assist level: Mod Assist Distance (ft): 4' Quality of gait: antalgic, slow lisbeth, path deviations, instability through all phases Transfers/Mobility Sit to stand: Mod Assist Stand to sit: Mod Assist Stand step: Mod Assist Unsteady on his feet Device(s) used: none, rollator, grab bars, and bear hug with arms around patient for support. He held onto the arm of the chair, reaching for the distant arm of the chair. Exercises Exercises Heelslides: x 10 Hip Flexion: x 10 Knee Long Arc Quad: x 10 Ankle Pumps: x 10 Upper Extremity: punching out in front of him x 10 at varying levels, lifting arms overhead x 10 Bed Mobility Supine to sit: Mod Assist Rolling to right: Mod Assist Scooting: Max Assist Plan Continue acute PT per plan of care. Safety/Education Safety Safety Devices in place: call light within reach, left in chair, patient at risk for falls, nurse notified, and no alarms engaged upon entry Restraints: No Education Education Given To: patient Education Provided: PT Role, Gait Training, Plan of Care, and Discharge Recommendations Education Method: Verbal, Demonstration, and Teach Back Barriers to Learning: Hearing Education Outcome: Continued Education Needed Outcome Measures AM-PAC AM-PAC Inpatient Mobility Raw Score (No Stairs) : 10 JH-HLM JH-HLM Score: Transferred to chair/commode Goals Patient Stated Goal: To get stronger Encounter Problems Encounter Problems (Active) Mobility Patient will ambulate 30 feet with CGA and rolling walker in order to improve safety and independence with mobility. (Progressing) Start: 02/14/23 Expected End: 02/28/23 Transfers Patient will perform bed mobility with SBA in order to improve independence and prepare for out of bed mobility. (Progressing) Start: 02/14/23 Expected End: 02/28/23 Patient will complete functional transfer with rolling walker with SBA in order to prepare for ambulation. (Progressing) Start: 02/14/23 Expected End: 02/28/23 Therapy Time Individual Co-treatment Time In 0840 Time Out 0905 Minutes 25 Timed Code Treatment Minutes: 25 Minutes Estela Bazzi PT * Kayla Peña - 02/19/2023 8:08 AM EST Nutrition rescreen completed. Patient referred to the Dietitian due to LOS. LENNY Cabrales * Ez Velázquez MD - 02/18/2023 9:28 AM EST Images from the original note were not included. Hospitalist Progress Note 02/18/2023 [id number]: Please page [facility] night Hospitalist for any issues. Admit Date: 02/12/2023 PCP: ROOPA MADERA MD Room#: N4-462/N4-462 A Brief hospital course: Patient admitted 02/12/2023 for functional decline with inability to ambulate. 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 Initially presented with knee pain, difficulty walking, and functional decline. He had been discharged to home from SNF two weeks prior, but due to living alone with worsening knee pain & difficulty ambulating he returned to the ED. Evaluated by ortho and received L-knee CSI (02/13). Did have significant urinary retention during admission, so Schwartz was placed; found to have UTI so retention likely combination of longstanding BPH with LUTS + recent reduced ambulation + acute UTI: he required a Schwartz during his prior admission in Sep but was able to pass an outpatient voiding trial. Subjective: Interval History: No overnight issues. Recently placed an ice pack on his knee, reports that this is feeling good and at the present time has no concerns. Adult diet Regular 24HR INTAKE/OUTPUT: Intake/Output Summary (Last 24 hours) at 02/18/2023 0928 Last data filed at 02/18/2023 0342 Gross per 24 hour Intake -- Output 2075 ml Net -2075 ml Past Medical History: Past Medical History: Diagnosis Date Arthritis knees hands Asthma Chronic pain GERD (gastroesophageal reflux disease) Hyperlipidemia Kidney stone 2012 Prostate disease Sleep apnea Thyroid disease Objective: Vitals: BP 134/75 (BP Location: Right arm, Patient Position: Lying) Pulse 63 Temp 36.8 C (98.3 F) (Temporal) Resp 18 SpO2 97% Pulse Ox: SpO2 Av % Min: 94 % Max: 98 % Supplemental O2: NC 2L Respiratory: Bibasilar crackles. Normal effort. Cardiovascular: RRR. No M/R/G. No pedal edema. Abdomen: NBS. Soft. NT/ND. Schwartz. Musculoskeletal: Ice pack in place anterior L knee. Labs/Studies: The following labs and/or studies were reviewed by me as part of today's encounter. HEME: No results for input(s): WBC, RBC, HGB, HCT, MCV, RDW, PLT in the last 72 hours. CHEM: Recent Labs 02/15/23 1111 02/16/23 0122 02/17/23 0106 NA 135 134* 135 K 4.4 4.4 4.5 CL 102 100 98 CO2 25 25 27 BUN 22* 21* 24* CREATININE 0.64* 0.66 0.70 EGFR >90.0 >90.0 >90.0 GLUCOSE 120* 120* 99 CALCIUM 9.5 9.4 9.4 ANIONGAP 9 9 9 (MG, CRP, SEDRATE, and CKTOTAL are separate not part of a panel; PHOS may be separate or part of a RENAL panel) LIVER: No results for input(s): AST, ALT, BILITOT, BILIDIR, ALKPHOS, ALBUMIN, PROT, LIPASE, GGT in the last 72 hours.(on any date where BILIDIR is present then there is a full hepatic panel, not a CMP; lipase & GGT are separate labs not part of a panel) COAG: No results for input(s): PROTIME, INR, PTT in the last 72 hours. CARDIAC: No results for input(s): TROPONINI in the last 72 hours. NT PRO BNP Date Value Ref Range Status 02/13/2023 223 <20 - 300 pg/mL Final 12/30/2022 260 <20 - 300 pg/mL Final 10/06/2020 79 0 - 450 pg/mL Final No results for input(s): POCGLU in the last 72 hours. No results for input(s): LACTATE in the last 72 hours. No results found for: DDIMER, PROCAL, COVID19, HGBA1C, TSH, XFYRMVPT25, FOLATE, VITD25, CHOL, TRIG, HDL, LDLCALC Urine Culture: Results for orders placed or performed during the hospital encounter of 02/12/23 Urine culture Specimen: Urine, Clean Catch Result Value Ref Range Urine Culture >100,000 CFU/mL Proteus mirabilis (A) Susceptibility Proteus mirabilis - BROTH MICRODILUTION Amoxicillin / Clavulanate <=2 Susceptible ug/ml Ampicillin <=2 Susceptible ug/ml Ampicillin / Sulbactam <=2 Susceptible ug/ml Aztreonam <=1 Susceptible ug/ml Cefazolin <=4 Susceptible ug/ml Cefepime <=1 Susceptible ug/ml Ceftriaxone <=1 Susceptible ug/ml Ciprofloxacin <=0.25 Susceptible ug/ml Gentamicin <=1 Susceptible ug/ml Meropenem <=0.25 Susceptible ug/ml Nitrofurantoin Resistant Piperacillin / Tazobactam <=4 Susceptible ug/ml Trimethoprim / Sulfamethoxazole <=20 Susceptible ug/ml Blood Culture: Results for orders placed or performed during the hospital encounter of 03/21/22 Blood culture #2 - Suspected Infection Specimen: Blood, Venous Result Value Ref Range Blood Culture No growth at 5 days Blood culture #1 - Suspected Infection Specimen: Blood, Venous Result Value Ref Range Blood Culture No growth at 5 days Currently Ordered Medications: Current Facility-Administered Medications: acetaminophen (Tylenol) tablet 1,000 mg, 1,000 mg, Oral, TID, 1,000 mg at 02/17/232007 OR [DISCONTINUED] acetaminophen (Tylenol) suppository 650 mg, 650 mg, Rectal, q6h PRN, Jose Alfredo Chambers DO albuterol 108 (90 Base) MCG/ACT inhaler 2 puff, 2 puff, Inhalation, q6h PRN, Jose Alfredo Chambers DO, 2 puff at 02/15/23 0822 atorvastatin (Lipitor) tablet 10 mg, 10 mg, Oral, Daily, Jose Alfredo Chambers DO, 10 mg at 02/17/23 0826 carboxymethylcellulose PF (Refresh Plus) 0.5 % ophthalmic solution 1 drop, 1 drop, Both Eyes, TID PRN, Kishan Carl MD, 1 drop at 02/15/23 1545 cefTRIAXone (Rocephin) 1,000 mg in sodium chloride 0.9 % 50 mL IVPB Mini-Bag Plus, 1,000 mg, IntraVENous, q24h, [place], Stopped at 02/17/23 1656 enoxaparin (Lovenox) syringe 40 mg, 40 mg, SubCUTAneous, Daily, Jose Alfredo Chambers DO, 40 mg at ergocalciferol (Vitamin D2) capsule 1.25 mg, 1.25 mg, Oral, Weekly, Ez Velázquez MD escitalopram (Lexapro) tablet 10 mg, 10 mg, Oral, Daily, Jose Alfredo Chambers DO, 10 mg at 02/17/23 0828 finasteride (Proscar) tablet 5 mg, 5 mg, Oral, Daily, Jose Alfredo Chambers DO, 5 mg at 02/17/2330 guaiFENesin (Mucinex) 12 hr tablet 600 mg, 600 mg, Oral, BID, Kishan Carl MD, 600 mg at 02/17/232008 hydroCHLOROthiazide (HYDRODiuril) tablet 25 mg, 25 mg, Oral, q AM, Jose Alfredo Chambers DO, 25 mg at 02/17/23 0831 levothyroxine (Synthroid, Levoxyl) tablet 50 mcg, 50 mcg, Oral, Daily, Jose Alfredo Chambers DO, 50 mcg at 02/17/2331 melatonin tablet 5 mg, 5 mg, Oral, Nightly, Keny Willis MD, 5 mg at 02/17/232008 ondansetron ODT (Zofran-ODT) disintegrating tablet 4 mg, 4 mg, Oral, q8h PRN, 4 mg at 02/16/23 1122OR ondansetron (Zofran) injection 4 mg, 4 mg, IntraVENous, q6h PRN, Jose Alfredo Chambers DO pantoprazole (ProtoNix) EC tablet 40 mg, 40 mg, Oral, qAM AC, Jose Alfredo Chambers DO, 40 mg at 02/17/23 0530 polyethylene glycol (PEG) 3350 (Miralax) packet 17 g, 17 g, Oral, Daily PRN, Jose Alfredo Chambers DO, 17 gat 02/15/23 0820 sodium chloride 0.9 % infusion, 5-250 mL/hr, IntraVENous, PRN, Jose Alfredo Chambers DO sodium chloride 0.9% (NS) flush 10 mL, 10 mL, IntraVENous, 2 times per day, Jose Alfredo Chambers DO, 10 mLat 02/17/232099 sodium chloride 0.9% (NS) flush 10 mL, 10 mL, IntraVENous, PRN, Jose Alfredo Chambers DO tamsulosin (Flomax) 24 hr capsule 0.4 mg, 0.4 mg, Oral, Daily, Jose Alfredo Chambers DO, 0.4 mg at traMADol (Ultram) tablet 50 mg, 50 mg, Oral, q8h PRN, Jose Alfredo Chambers DO, 50 mg at 02/17/232102 Medical Decision Making: Acute, acute on chronic, unstable/uncontrolled chronic problems: Functional decline with inability to ambulate Worsening L knee pain / OA contributory to #1 Acute recurrent urinary retention UTI Stable chronic problems affecting care, new non-acute diagnoses: Asthma/COPD/Pulmonary fibrosis RICKY on O2 (does not tolerate CPAP) Chronic pain HTN BPH with LUTS Advanced OA Vit D def As a result of the above findings & factors, the following mgmt was pursued: - PT/OT - CTX (02/14-02/18) - given lack of ambulation, unlikely to meet urology criteria for DTV trial prior to discharge - delirium precautions: increase activity, schedule melatonin at bedtime, limit nighttime disturbances, and avoid anticholinergic meds, benzos, etc - DVT prophylaxis: enoxaparin and encourage ambulation Data: (CAT1) Reviewed 0 or N/A notes from different specialty or health system (each=1). (Note: labs/studies can only be counted once--either when ordered or when reviewed--not both.) Advance Directive: Full Code Anticipated Discharge - Date - any - Location - Skilled Facility - Pending the following - placement/auth Ez Velázquez MD Division of Hospitalist Medicine Inpatient Medical Services/[facility] [place] Data: Straightforward Complexity: Chronic illness with mild to moderate exacerbation, progression, or side effect of tx (MOD). Risk: Low risk diagnostic testing or treatment (LOW). Estimated MDM: Low ([id number]) or higher Note: the above MDM determinations are made by me for my own use to estimate my end-of-day billing codes. However, documentation is reviewed by professional coders; following their review of documentation, and in accordance with current AMA CPT, CMS, and ACDIS guidelines, the actual billing code(s)may differ from my estimate. * Ez Velázquez MD - 02/17/2023 9:24 AM EDT Images from the original note were not included. Hospitalist Progress Note 02/17/[phone]: Please page [facility] night Hospitalist for any issues. Admit Date: 02/12/2023 PCP: ROOPA MADERA MD Room#: [id number] Brief hospital course: Patient admitted 02/12/2023 for functional decline with inability to ambulate. 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 Initially presented with knee pain, difficulty walking, and functional decline. He had been discharged to home from SNF two weeks prior, but due to living alone with worsening knee pain & difficulty ambulating he returned to the ED. Evaluated by ortho and received L-knee CSI (02/13). Did have significant urinary retention during admission, so Schwartz was placed; found to have UTI so retention likely combination of longstanding BPH with LUTS + recent reduced ambulation + acute UTI: he required a Schwartz during his prior admission in Sep but was able to pass an outpatient voiding trial. Subjective: Interval History: No overnight issues. Has a continuous pulse ox on and he is unsure why. Feels unchanged from yesterday. Adult diet Regular 24HR INTAKE/OUTPUT: Intake/Output Summary (Last 24 hours) at 02/17/2023 0924 Last data filed at 02/17/2023 0407 Gross per 24 hour Intake 10 ml Output 875 ml Net -865 ml Past Medical History: Past Medical History: Diagnosis Date Arthritis knees hands Asthma Chronic pain GERD (gastroesophageal reflux disease) Hyperlipidemia Kidney stone 2012 Prostate disease Sleep apnea Thyroid disease Objective: Vitals: BP 136/69 (BP Location: Right arm, Patient Position: Lying) Pulse 60 Temp 36.5 C (97.7 F) (Temporal) Resp 20 SpO2 97% Pulse Ox: SpO2 Av % Min: 95 % Max: 97 % Supplemental O2: NC 2L Respiratory: Bibasilar crackles. Normal effort. Continuous pulse ox sensor on L index. Cardiovascular: RRR. No M/R/G. No pedal edema. Abdomen: NBS. Soft. NT/ND. Schwartz. Neurologic: Alert. Answering questions & following directions appropriately. Labs/Studies: The following labs and/or studies were reviewed by me as part of today's encounter. HEME: No results for input(s): WBC, RBC, HGB, HCT, MCV, RDW, PLT in the last 72 hours. CHEM: Recent Labs 02/15/23 1111 02/16/23 0122 02/17/23 0106 NA 135 134* 135 K 4.4 4.4 4.5 CL 102 100 98 CO2 25 25 27 BUN 22* 21* 24* CREATININE 0.64* 0.66 0.70 EGFR >90.0 >90.0 >90.0 GLUCOSE 120* 120* 99 CALCIUM 9.5 9.4 9.4 ANIONGAP 9 9 9 (MG, CRP, SEDRATE, and CKTOTAL are separate not part of a panel; PHOS may be separate or part of a RENAL panel) LIVER: No results for input(s): AST, ALT, BILITOT, BILIDIR, ALKPHOS, ALBUMIN, PROT, LIPASE, GGT in the last 72 hours.(on any date where BILIDIR is present then there is a full hepatic panel, not a CMP; lipase & GGT are separate labs not part of a panel) COAG: No results for input(s): PROTIME, INR, PTT in the last 72 hours. CARDIAC: No results for input(s): TROPONINI in the last 72 hours. NT PRO BNP Date Value Ref Range Status 02/13/2023 223 <20 - 300 pg/mL Final 12/30/2022 260 <20 - 300 pg/mL Final 10/06/2020 79 0 - 450 pg/mL Final No results for input(s): POCGLU in the last 72 hours. No results for input(s): LACTATE in the last 72 hours. No results found for: DDIMER, PROCAL, COVID19, HGBA1C, TSH, OCKGOLSW64, FOLATE, VITD25, CHOL, TRIG, HDL, LDLCALC Urine Culture: Results for orders placed or performed during the hospital encounter of 02/12/23 Urine culture Specimen: Urine, Clean Catch Result Value Ref Range Urine Culture >100,000 CFU/mL Proteus mirabilis (A) Susceptibility Proteus mirabilis - BROTH MICRODILUTION Amoxicillin / Clavulanate <=2 Susceptible ug/ml Ampicillin <=2 Susceptible ug/ml Ampicillin / Sulbactam <=2 Susceptible ug/ml Aztreonam <=1 Susceptible ug/ml Cefazolin <=4 Susceptible ug/ml Cefepime <=1 Susceptible ug/ml Ceftriaxone <=1 Susceptible ug/ml Ciprofloxacin <=0.25 Susceptible ug/ml Gentamicin <=1 Susceptible ug/ml Meropenem <=0.25 Susceptible ug/ml Nitrofurantoin Resistant Piperacillin / Tazobactam <=4 Susceptible ug/ml Trimethoprim / Sulfamethoxazole <=20 Susceptible ug/ml Blood Culture: Results for orders placed or performed during the hospital encounter of 03/21/22 Blood culture #2 - Suspected Infection Specimen: Blood, Venous Result Value Ref Range Blood Culture No growth at 5 days Blood culture #1 - Suspected Infection Specimen: Blood, Venous Result Value Ref Range Blood Culture No growth at 5 days Currently Ordered Medications: Current Facility-Administered Medications: acetaminophen (Tylenol) tablet 1,000 mg, 1,000 mg, Oral, TID, 1,000 mg at 02/17/23 0825 OR [DISCONTINUED] acetaminophen (Tylenol) suppository 650 mg, 650 mg, Rectal, q6h PRN, Jose Alfredo Chambers DO albuterol 108 (90 Base) MCG/ACT inhaler 2 puff, 2 puff, Inhalation, q6h PRN, Jose Alfredo Chambers DO, 2 puff at 02/15/23 0822 atorvastatin (Lipitor) tablet 10 mg, 10 mg, Oral, Daily, Jose Alfredo Chambers DO, 10 mg at 02/17/23 0826 carboxymethylcellulose PF (Refresh Plus) 0.5 % ophthalmic solution 1 drop, 1 drop, Both Eyes, TID PRN, Kishan Carl MD, 1 drop at 02/15/23 1545 cefTRIAXone (Rocephin) 1,000 mg in sodium chloride 0.9 % 50 mL IVPB Mini-Bag Plus, 1,000 mg, IntraVENous, q24h, [place], Stopped at 02/16/23 175 enoxaparin (Lovenox) syringe 40 mg, 40 mg, SubCUTAneous, Daily, Jose Alfredo Chambers DO, 40 mg at 721 ergocalciferol (Vitamin D2) capsule 1.25 mg, 1.25 mg, Oral, Weekly, Ez Velázquez MD escitalopram (Lexapro) tablet 10 mg, 10 mg, Oral, Daily, Jose Alfredo Chambers DO, 10 mg at 02/17/23827 finasteride (Proscar) tablet 5 mg, 5 mg, Oral, Daily, Jose Alfredo Chambers DO, 5 mg at 02/17/23829 guaiFENesin (Mucinex) 12 hr tablet 600 mg, 600 mg, Oral, BID, Kishan Carl MD, 600 mg at 02/17/23829 hydroCHLOROthiazide (HYDRODiuril) tablet 25 mg, 25 mg, Oral, q AM, Jose Alfredo Chambers DO, 25 mg at 02/17/23830 Influenza Vac A&B SA Adj quadrivalent (Fluad) vaccine 0.5 mL, 0.5 mL, IntraMUSCular, Once, Jose Alfredo Chambers DO levothyroxine (Synthroid, Levoxyl) tablet 50 mcg, 50 mcg, Oral, Daily, Jose Alfredo Chambers DO, 50 mcg at 02/17/23830 melatonin tablet 5 mg, 5 mg, Oral, Nightly, Keny Willis MD, 5 mg at 02/16/232049 ondansetron ODT (Zofran-ODT) disintegrating tablet 4 mg, 4 mg, Oral, q8h PRN, 4 mg at 02/16/23 112OR ondansetron (Zofran) injection 4 mg, 4 mg, IntraVENous, q6h PRN, Jose Alfredo Chambers DO pantoprazole (ProtoNix) EC tablet 40 mg, 40 mg, Oral, qAM AC, Jose Alfredo Chambers DO, 40 mg at 02/17/23 0530 polyethylene glycol (PEG) 3350 (Miralax) packet 17 g, 17 g, Oral, Daily PRN, Jose Alfredo Chambers DO, 17 gat 02/15/23 0820 sodium chloride 0.9 % infusion, 5-250 mL/hr, IntraVENous, PRN, Jose Alfredo Chambers DO sodium chloride 0.9% (NS) flush 10 mL, 10 mL, IntraVENous, 2 times per day, Jose Alfredo Chambers DO, 10 mLat 02/17/23 0841 sodium chloride 0.9% (NS) flush 10 mL, 10 mL, IntraVENous, PRN, Jose Alfredo Chambers DO tamsulosin (Flomax) 24 hr capsule 0.4 mg, 0.4 mg, Oral, Daily, Jose Alfredo Chambers DO, 0.4 mg at 832 traMADol (Ultram) tablet 50 mg, 50 mg, Oral, q8h PRN, Jose Alfredo Chambers DO, 50 mg at 02/16/23 1740 Medical Decision Making: Acute, acute on chronic, unstable/uncontrolled chronic problems: Functional decline with inability to ambulate Worsening L knee pain / OA contributory to #1 Acute recurrent urinary retention UTI Stable chronic problems affecting care, new non-acute diagnoses: Asthma/COPD/Pulmonary fibrosis RICKY on O2 (does not tolerate CPAP) Chronic pain HTN BPH with LUTS Advanced OA Vit D def As a result of the above findings & factors, the following mgmt was pursued: - PT/OT - CTX (02/14-02/18), will plan to switch to cefdinir at discharge to complete a 5- day course - given lack of ambulation, unlikely to meet urology criteria for DTV trial prior to discharge - vit D 50k units qweek starting 02/16 - BP at age-appropriate goal w/o any hypotensive readings, continue the HCTZ without any modification - reviewed orders, no continuous pulse ox order present to discontinue - delirium precautions: increase activity, schedule melatonin at bedtime, limit nighttime disturbances, and avoid anticholinergic meds, benzos, etc - DVT prophylaxis: enoxaparin and encourage ambulation Data: (CAT1) Reviewed 1 labs/studies previously ordered by me not previously counted (each=1, panels count as 1). (Note: labs/studies can only be counted once--either when ordered or when reviewed--not both.) Advance Directive: Full Code Anticipated Discharge - Date - any - Location - Skilled Facility - Pending the following - placement/auth Ez Velázquez MD Division of Hospitalist Medicine Inpatient Medical Services/[facility] [place] Data: Straightforward Complexity: Chronic illness with mild to moderate exacerbation, progression, or side effect of tx (MOD). Risk: Prescription drug/IVF/colloid was initiated, discontinued, adjusted; or reviewed with decision to maintain current orders (MOD). Estimated MDM: Medium (88063/93375) or higher Note: the above MDM determinations are made by me for my own use to estimate my end-of-day billing codes. However, documentation is reviewed by professional coders; following their review of documentation, and in accordance with current AMA CPT, CMS, and ACDIS guidelines, the actual billing code(s)may differ from my estimate. * Ez Velázquez MD - 02/16/2023 8:26 AM EDT Images from the original note were not included. Hospitalist Progress Note 02/16/2023 [phone]: Please page [facility] night Hospitalist for any issues. Admit Date: 02/12/2023 PCP: ROOPA MADERA MD Room#: [id number] Brief hospital course: Patient admitted 02/12/2023 for functional decline with inability to ambulate. 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 Initially presented with knee pain, difficulty walking, and functional decline. He had been discharged to home from SNF two weeks prior, but due to living alone with worsening knee pain & difficulty ambulating he returned to the ED. Evaluated by ortho and received L-knee CSI (02/13). Did have significant urinary retention during admission, so Schwartz was placed; found to have UTI so retention likely combination of longstanding BPH with LUTS + recent reduced ambulation + acute UTI: he required a Schwartz during his prior admission in Sep but was able to pass an outpatient voiding trial. Subjective: Interval History: No overnight issues. Reports that nobody has looked at his knee at-all while he'sbeen admitted, voices frustration regarding this. Mentioned that he was seen by ortho and patient stated that they never examined his knee (they did do a CSI in his knee on HD #2). Adult diet Regular 24HR INTAKE/OUTPUT: Intake/Output Summary (Last 24 hours) at 02/16/2023 0826 Last data filed at 02/16/2023 0450 Gross per 24 hour Intake 550 ml Output 2950 ml Net -2400 ml Past Medical History: Past Medical History: Diagnosis Date Arthritis knees hands Asthma Chronic pain GERD (gastroesophageal reflux disease) Hyperlipidemia Kidney stone 2013 Prostate disease Sleep apnea Thyroid disease Objective: Vitals: BP 132/68 (BP Location: Left arm, Patient Position: Sitting) Pulse 62 Temp 36.6 C (97.8F) (Temporal) Resp 18 SpO2 92% Pulse Ox: SpO2 Av.2 % Min: 92 % Max: 97 % Supplemental O2: NC 2L Respiratory: Bibasilar crackles. Normal effort. Cardiovascular: RRR. No M/R/G. No pedal edema. Abdomen: NBS. Soft. NT/ND. Schwartz. Musculoskeletal: L knee with mild prepatellar effusion, slight TTP in this area and medially, no abnormal warmth or erythema. Neurologic: Alert. Answering questions & following directions appropriately. Labs/Studies: The following labs and/or studies were reviewed by me as part of today's encounter. HEME: Recent Labs 02/14/23 0126 WBC 9.8 RBC 4.23* HGB 12.7* HCT 39.0* MCV 92.2 RDW 13.9 PLT 406 CHEM: Recent Labs 02/14/23 0126 02/15/23 1111 02/16/23 0122 NA 136 135 134* K 4.6 4.4 4.4 CL 104 102 100 CO2 22 25 25 BUN 17 22* 21* CREATININE 0.71 0.64* 0.66 EGFR >90.0 >90.0 >90.0 GLUCOSE 126* 120* 120* CALCIUM 9.2 9.5 9.4 ANIONGAP 10 9 9 (MG, CRP, SEDRATE, and CKTOTAL are separate not part of a panel; PHOS may be separate or part of a RENAL panel) LIVER: No results for input(s): AST, ALT, BILITOT, BILIDIR, ALKPHOS, ALBUMIN, PROT, LIPASE, GGT in the last 72 hours.(on any date where BILIDIR is present then there is a full hepatic panel, not a CMP; lipase & GGT are separate labs not part of a panel) COAG: No results for input(s): PROTIME, INR, PTT in the last 72 hours. CARDIAC: No results for input(s): TROPONINI in the last 72 hours. NT PRO BNP Date Value Ref Range Status 02/13/2023 223 <20 - 300 pg/mL Final 12/30/2022 260 <20 - 300 pg/mL Final 10/06/2020 79 0 - 450 pg/mL Final No results for input(s): POCGLU in the last 72 hours. No results for input(s): LACTATE in the last 72 hours. Lab Results Component Value Date TSH 0.616 02/14/2023 [id number] 974 (H) 02/14/2023 FOLATE 5.0 02/14/2023 VITD25 <13 (L) 02/14/2023 Urine Culture: Results for orders placed or performed during the hospital encounter of 12/30/22 Urine culture Specimen: Urine, Clean Catch Result Value Ref Range Urine Culture Insignificant growth based on current clinical guidelines Blood Culture: Results for orders placed or performed during the hospital encounter of 03/21/22 Blood culture #2 - Suspected Infection Specimen: Blood, Venous Result Value Ref Range Blood Culture No growth at 5 days Blood culture #1 - Suspected Infection Specimen: Blood, Venous Result Value Ref Range Blood Culture No growth at 5 days Currently Ordered Medications: Current Facility-Administered Medications: acetaminophen (Tylenol) tablet 1,000 mg, 1,000 mg, Oral, TID, 1,000 mg at 02/15/233 OR [DISCONTINUED] acetaminophen (Tylenol) suppository 650 mg, 650 mg, Rectal, q6h PRN, Jose Alfredo Chambers DO albuterol 108 (90 Base) MCG/ACT inhaler 2 puff, 2 puff, Inhalation, q6h PRN, Jose Alfredo Chambers DO, 2 puff at 02/15/23 0822 atorvastatin (Lipitor) tablet 10 mg, 10 mg, Oral, Daily, Jose Alfredo Chambers DO, 10 mg at 02/15/23 0823 carboxymethylcellulose PF (Refresh Plus) 0.5 % ophthalmic solution 1 drop, 1 drop, Both Eyes, TID PRN, Kishan Carl MD, 1 drop at 02/15/23 1545 cefTRIAXone (Rocephin) 1,000 mg in sodium chloride 0.9 % 50 mL IVPB Mini-Bag Plus, 1,000 mg, IntraVENous, q24h, [place], Stopped at 02/15/23 161 enoxaparin (Lovenox) syringe 40 mg, 40 mg, SubCUTAneous, Daily, Jose Alfredo Chambers DO, 40 mg at escitalopram (Lexapro) tablet 10 mg, 10 mg, Oral, Daily, Jose Alfredo Chambers DO, 10 mg at 02/15/23819 finasteride (Proscar) tablet 5 mg, 5 mg, Oral, Daily, Jose Alfredo Chambers DO, 5 mg at 02/15/23820 guaiFENesin (Mucinex) 12 hr tablet 600 mg, 600 mg, Oral, BID, Kishan Carl MD, 600 mg at 02/15/232132 hydroCHLOROthiazide (HYDRODiuril) tablet 25 mg, 25 mg, Oral, q AM, Jose Alfredo Chambers DO, 25 mg at 02/15/23820 Influenza Vac A&B SA Adj quadrivalent (Fluad) vaccine 0.5 mL, 0.5 mL, IntraMUSCular, Once, Jose Alfredo Chambers DO levothyroxine (Synthroid, Levoxyl) tablet 50 mcg, 50 mcg, Oral, Daily, Jose Alfredo Chambers DO, 50 mcg at 02/15/23819 LORazepam (Ativan) tablet 0.5 mg, 0.5 mg, Oral, Once, Kishan Carl MD melatonin tablet 5 mg, 5 mg, Oral, Nightly, Keny Willis MD, 5 mg at 02/15/232132 ondansetron ODT (Zofran-ODT) disintegrating tablet 4 mg, 4 mg, Oral, q8h PRN OR ondansetron (Zofran) injection 4 mg, 4 mg, IntraVENous, q6h PRN, Jose Alfredo Chambers DO pantoprazole (ProtoNix) EC tablet 40 mg, 40 mg, Oral, qAM AC, Jose Alfredo Chambers DO, 40 mg at 02/16/23 05 polyethylene glycol (PEG) 3350 (Miralax) packet 17 g, 17 g, Oral, Daily PRN, Jose Alfredo Chambers DO, 17 gat 02/15/23 0820 sodium chloride 0.9 % infusion, 5-250 mL/hr, IntraVENous, PRN, Jose Alfredo Chambers DO sodium chloride 0.9% (NS) flush 10 mL, 10 mL, IntraVENous, 2 times per day, Jose Alfredo Chambers DO, 10 mLat 02/15/232132 sodium chloride 0.9% (NS) flush 10 mL, 10 mL, IntraVENous, PRN, Jose Alfredo Chambers DO tamsulosin (Flomax) 24 hr capsule 0.4 mg, 0.4 mg, Oral, Daily, Jose Alfredo Chambers DO, 0.4 mg at 822 traMADol (Ultram) tablet 50 mg, 50 mg, Oral, q8h PRN, Jose Alfredo Chambers DO, 50 mg at 02/14/23 1704 Medical Decision Making: Acute, acute on chronic, unstable/uncontrolled chronic problems: Functional decline with inability to ambulate Worsening L knee pain / OA contributory to #1 Acute recurrent urinary retention UTI Stable chronic problems affecting care, new non-acute diagnoses: Asthma/COPD/Pulmonary fibrosis RICKY on O2 (does not tolerate CPAP) Chronic pain HTN BPH with LUTS Advanced OA Vit D def As a result of the above findings & factors, the following mgmt was pursued: - PT/OT - CTX (02/14-02/18), will plan to switch to cefdinir at discharge to complete a 5- day course - given lack of ambulation, unlikely to meet urology criteria for DTV trial prior to discharge - vit D 50k units qweek starting today - delirium precautions: increase activity, schedule melatonin at bedtime, limit nighttime disturbances, and avoid anticholinergic meds, benzos, etc - DVT prophylaxis: enoxaparin and encourage ambulation Data: (CAT1) Reviewed 2 notes from different specialty or health system (each=1). (CAT1) Reviewed 3 or more labs/studies ordered by another provider not previously counted (each=1, panels count as 1). (Note: labs/studies can only be counted once--either when ordered or when reviewed--not both.) Advance Directive: Full Code Anticipated Discharge - Date - any - Location - Skilled Facility - Pending the following - placement/auth Ez Velázquez MD Division of Hospitalist Medicine Inpatient Medical Services/[facility] [place] Data: Moderate (3x CAT1 -OR- 1x CAT2 -OR- 1x CAT3) Complexity: Chronic illness with mild to moderate exacerbation, progression, or side effect of tx (MOD). Risk: Prescription drug/IVF/colloid was initiated, discontinued, adjusted; or reviewed with decision to maintain current orders (MOD). Estimated MDM: Medium (80696/32462) or higher Note: the above MDM determinations are made by me for my own use to estimate my end-of-day billing codes. However, documentation is reviewed by professional coders; following their review of documentation, and in accordance with current AMA CPT, CMS, and ACDIS guidelines, the actual billing code(s)may differ from my estimate. * Saúl Pagan RCP - 02/15/2023 9:15 PM EDT [facility] Respiratory Care Department Progress Note Comment or reasoning for refusal: Patient was seen in attempts to fulfill CPAP/BiPAP/AutoPAP order. Patient refused PAP therapy/studyat this time. Patient was educated on medical need and reasoning for physician order to ensure patient was making an informed medical decision. All of the patient's questions were answered at this time and patient was informed that if the patient changes their mind regarding wearing PAP to hit their call light or inform their nurse to contact Respiratory. A second, consecutive night of refusing PAP therapy/study results in order completion in the EMR. If future CPAP/BiPAP/AutoPAP therapy or study is indicated please place another order in the EMR and the assigned Respiratory Therapist will reattempt to fulfill orders. Thank you for involving Respiratory in the care of this patient, * Channing Bridges - 02/15/2023 11:40 AM EDT Hospitalist Progress Note 02/15/[id number]: Please secure chat me for patient care issues. [phone]: Please secure chat [facility] Hospitalist for any issues. Subjective: Admit Date: 02/12/2023 PCP: ROOPA MADERA MD Room#: N4-462/N4-462 A Interval History: Patient unfortunately had significant urinary retention yesterday evening and hadFoley catheter placed at that time. Patient seen at bedside this morning. Sitting comfortably in bed, conversing normally, no acute distress. Patient is tolerating the Schwartz catheter fine at this time, but is still unhappy that it had to be placed. Patient states he has not been out of bed at this morning. His left knee pain is improved this morning. Continues to feel overall weak and fatigued. Denies any chest pain, shortness of breath, fevers or chills. No other acute concerns this time. Adult diet Regular @[id number]@ 24HR INTAKE/OUTPUT: Intake/Output Summary (Last 24 hours) at 02/15/2023 1140 Last data filed at 02/14/2023 2100 Gross per 24 hour Intake 600 ml Output 1800 ml Net -1200 ml Past Medical History: Past Medical History: Diagnosis Date Arthritis knees hands Asthma Chronic pain GERD (gastroesophageal reflux disease) Hyperlipidemia Kidney stone 2012 Prostate disease Sleep apnea Thyroid disease LABS: CBC: Recent Labs 02/13/2310902/14/23125 WBC 9.6 9.8 RBC 4.31* 4.23* HGB 13.1 12.7* HCT 38.8* 39.0* MCV 90.0 92.2 RDW 13.8 13.9 PLT 455* 406 BMP: Recent Labs 02/13/2310902/14/2312502/15/23 1111 NA 138 136 135 K 4.3 4.6 4.4 CL 106 104 102 CO2 22 22 25 BUN 17 17 22* CREATININE 0.89 0.71 0.64* GLUCOSE 114* 126* 120* CALCIUM 8.9 9.2 9.5 ANIONGAP 10 10 9 LIVER PROFILE:No results for input(s): AST, ALT, BILITOT, ALKPHOS, PROT in the last 72 hours. No lab exists for component: LABALBU PT/INR: No results for input(s): PROTIME, INR in the last 72 hours. CARDIAC ENZYMES: Recent Labs 02/13/23109 TROPONINI <0.012 Procalcitonin: No results found for: PROCAL COVID-19 PCR: No results for input(s): COVID19 in the last 72 hours. Objective: Vitals: BP (!) 147/84 (BP Location: Right arm, Patient Position: Sitting) Pulse 68 Temp 36.8 C (98.2 F) (Temporal) Resp 17 SpO2 93% Pulse Ox: SpO2 Av.4 % Min: 93 % Max: 97 % Physical Exam Constitutional: General: He is not in acute distress. Appearance: He is not ill-appearing. HENT: Mouth/Throat: Mouth: Mucous membranes are moist. Pharynx: Oropharynx is clear. Cardiovascular: Rate and Rhythm: Normal rate and regular rhythm. Pulses: Normal pulses. Heart sounds: Normal heart sounds. Pulmonary: Effort: Pulmonary effort is normal. Breath sounds: Normal breath sounds. Abdominal: General: Abdomen is flat. There is no distension. Palpations: Abdomen is soft. Tenderness: There is no abdominal tenderness. Genitourinary: Comments: Schwartz catheter in place, draining dark yellow urine. Musculoskeletal: General: No swelling. Skin: General: Skin is warm and dry. Neurological: Mental Status: He is alert. Psychiatric: Mood and Affect: Mood normal. Behavior: Behavior normal. Thought Content: Thought content normal. Medications: acetaminophen, 1,000 mg, Oral, TID atorvastatin, 10 mg, Oral, Daily cefTRIAXone, 1,000 mg, IntraVENous, q24h enoxaparin, 40 mg, SubCUTAneous, Daily escitalopram, 10 mg, Oral, Daily finasteride, 5 mg, Oral, Daily guaiFENesin, 600 mg, Oral, BID hydroCHLOROthiazide, 25 mg, Oral, q AM influenza, 0.5 mL, IntraMUSCular, Once levothyroxine, 50 mcg, Oral, Daily LORazepam, 0.5 mg, Oral, Once melatonin, 5 mg, Oral, Nightly pantoprazole, 40 mg, Oral, qAM AC sodium chloride 0.9%, 10 mL, IntraVENous, 2 times per day tamsulosin, 0.4 mg, Oral, Daily Assessment and Plan Debility, functional decline: With multiple comorbidities, recent hospitalization last month with discharge to SNF. Reports worsening weakness and worsening left knee pain at home. Lives alone. - Geriatrics following. PT/OT/SW following. Planning for SNF placement on discharge. Moderate to severe left knee OA: Orthopedics evaluated on admission, noted that patient had undergone prior left knee steroid injections with improved relief of pain. - S/p steroid injection by orthopedics at bedside on 02/13. PT/OT following as above. Urinary retention: Known history of urinary retention. Urology followed on previous admission. Patient required Schwartz catheter on previous discharge. Passed outpatient voiding trial after discharge. Now with recurrent retention on admission. S/p Schwartz placement at bedside on evening of 02/14. - Continue home Flomax and Proscar. Continue Schwartz catheter for now. Urology consulted for consideration of chronic catheter placement. UTI: Presumed secondary to urinary retention. UA consistent with UTI. - Start ceftriaxone for now, follow-up urine cultures. Vitamin D deficiency: Vitamin D level less than 13 on 02/14. - Start vitamin D supplementation. Hand tremor: Chronic. Bilateral, worse on the right. Seems to be worse with breathing treatments. Notably was taking vitamin B12 2-3 times per week with breathing treatments, however vitamin B12 level elevated on admission. - Geriatrics following as above. Continue to hold vitamin B12 for now. Monitor hand tremor, could consider alternative medication as needed. Chronic medical conditions: - Asthma/COPD: Continue albuterol as needed. - Pulmonary fibrosis - RICKY: Continue home BiPAP. - GERD: Continue home PPI. - Hyperlipidemia: Continue home statin. - Depression: Continue home Lexapro. - Hypothyroidism: Continue home Synthroid. -DVT prophylaxis: [x] Lovenox [] Heparin [] SCDs [x] Encourage ambulation [] Already on Anticoagulation Anticipated Discharge - Date -TBD - Location - Skilled Facility - Pending the following -clinical course Total time spent (which include face to face and non face to face encounters) : 35 minutes Extended Emergency Contact Information Primary Emergency Contact: Harshil Murguia Mobile Relation: Relative Channing Bridges Division of Hospitalist Medicine Acute care [facility] PAGER: Epic chat * Deborah Myers RRT - 02/15/2023 2:23 AM EDT [facility] Respiratory Care Department Progress Note Comment or reasoning for refusal: Patient was seen in attempts to fulfill CPAP/BiPAP/AutoPAP order. Patient refused PAP therapy/studyat this time. Patient was educated on medical need and reasoning for physician order to ensure patient was making an informed medical decision. All of the patient's questions were answered at this time and patient was informed that if the patient changes their mind regarding wearing PAP to hit their call light or inform their nurse to contact Respiratory. A second, consecutive night of refusing PAP therapy/study results in order completion in the EMR. If future CPAP/BiPAP/AutoPAP therapy or study is indicated please place another order in the EMR and the assigned Respiratory Therapist will reattempt to fulfill orders. Thank you for involving Respiratory in the care of this patient, * Channing Bridges - 02/14/2023 3:47 PM EDT Images from the original note were not included. Hospitalist Progress Note 02/14/[id number]: Please secure chat me for patient care issues. [phone]: Please secure chat [facility] Hospitalist for any issues. Subjective: Admit Date: 02/12/2023 PCP: ROOPA MADERA MD Room#: N4-462/N4-462 A Interval History: No acute events overnight. Patient seen at bedside this morning. Laying comfortably in bed, conversing normally. Patient reports continued left knee pain this morning, mildly improved from yesterday after his injection with orthopedics but still remains painful. Has not tried getting out of bed yet this morning. Continues to feel fatigued and weak this morning. Also reports mildlower abdominal/suprapubic pain. Otherwise denies any chest pain, shortness of breath, fevers or chills. No other acute concerns at this time. Adult diet Regular @[id number]@ 24HR INTAKE/OUTPUT: Intake/Output Summary (Last 24 hours) at 02/14/2023 1547 Last data filed at 02/14/2023 1338 Gross per 24 hour Intake -- Output 1700 ml Net -1700 ml Past Medical History: Past Medical History: Diagnosis Date Arthritis knees hands Asthma Chronic pain GERD (gastroesophageal reflux disease) Hyperlipidemia Kidney stone 2012 Prostate disease Sleep apnea Thyroid disease LABS: CBC: Recent Labs 02/13/23 0110 02/14/23 0126 WBC 9.6 9.8 RBC 4.31* 4.23* HGB 13.1 12.7* HCT 38.8* 39.0* MCV 90.0 92.2 RDW 13.8 13.9 PLT 455* 406 BMP: Recent Labs 02/13/23 0110 02/14/23 0126 NA 138 136 K 4.3 4.6 CL 106 104 CO2 22 22 BUN 17 17 CREATININE 0.89 0.71 GLUCOSE 114* 126* CALCIUM 8.9 9.2 ANIONGAP 10 10 LIVER PROFILE:No results for input(s): AST, ALT, BILITOT, ALKPHOS, PROT in the last 72 hours. No lab exists for component: LABALBU PT/INR: No results for input(s): PROTIME, INR in the last 72 hours. CARDIAC ENZYMES: Recent Labs 02/13/23 0110 TROPONINI <0.012 Procalcitonin: No results found for: PROCAL COVID-19 PCR: No results for input(s): COVID19 in the last 72 hours. Objective: Vitals: BP 108/62 Pulse 77 Temp 36.9 C (98.5 F) (Temporal) Resp 18 SpO2 95% Pulse Ox: SpO2 Av.2 % Min: 95 % Max: 96 % Physical Exam Constitutional: General: He is not in acute distress. Appearance: He is not ill-appearing. HENT: Mouth/Throat: Mouth: Mucous membranes are moist. Pharynx: Oropharynx is clear. Cardiovascular: Rate and Rhythm: Normal rate and regular rhythm. Pulses: Normal pulses. Heart sounds: Normal heart sounds. Pulmonary: Effort: Pulmonary effort is normal. Breath sounds: Normal breath sounds. Abdominal: General: Abdomen is flat. There is no distension. Palpations: Abdomen is soft. Tenderness: There is no abdominal tenderness. Musculoskeletal: General: No swelling. Skin: General: Skin is warm and dry. Neurological: Mental Status: He is alert. Psychiatric: Mood and Affect: Mood normal. Behavior: Behavior normal. Thought Content: Thought content normal. Medications: acetaminophen, 1,000 mg, Oral, TID atorvastatin, 10 mg, Oral, Daily cefTRIAXone, 1,000 mg, IntraVENous, q24h enoxaparin, 40 mg, SubCUTAneous, Daily escitalopram, 10 mg, Oral, Daily finasteride, 5 mg, Oral, Daily guaiFENesin, 600 mg, Oral, BID hydroCHLOROthiazide, 25 mg, Oral, q AM influenza, 0.5 mL, IntraMUSCular, Once levothyroxine, 50 mcg, Oral, Daily LORazepam, 0.5 mg, Oral, Once melatonin, 5 mg, Oral, Nightly pantoprazole, 40 mg, Oral, qAM AC sodium chloride 0.9%, 10 mL, IntraVENous, 2 times per day tamsulosin, 0.4 mg, Oral, Daily Assessment and Plan Debility, functional decline: With multiple comorbidities, recent hospitalization last month with discharge to SNF. Reports worsening weakness and worsening left knee pain at home. Lives alone. - Geriatrics following. PT/OT/SW following. Will likely require SNF placement on discharge. Moderate to severe left knee OA: Orthopedics evaluated on admission, noted that patient had undergone prior left knee steroid injections with improved relief of pain. - S/p steroid injection by orthopedics at bedside on 02/13. PT/OT following as above. Urinary retention: Known history of urinary retention. Urology followed on previous admission. Patient required Schwartz catheter on previous discharge. Passed outpatient voiding trial after discharge. Now with recurrent retention on admission. - Continue home Flomax and Proscar. Bladder scans, straight cath as needed for now. Suspect patientwill require Schwartz catheter during this admission. Patient notably very opposed to Schwartz catheter placement, will need to discuss with patient further. May need urology referral for possible chronic catheter placement. UTI: Presumed secondary to urinary retention. UA consistent with UTI. - Start ceftriaxone for now, follow-up urine cultures. Vitamin D deficiency: Vitamin D level less than 13 on 02/14. - Start vitamin D supplementation. Chronic medical conditions: - Asthma/COPD: Continue albuterol as needed. - Pulmonary fibrosis - RICKY: Continue home BiPAP. - GERD: Continue home PPI. - Hyperlipidemia: Continue home statin. - Depression: Continue home Lexapro. - Hypothyroidism: Continue home Synthroid. -DVT prophylaxis: [x] Lovenox [] Heparin [] SCDs [x] Encourage ambulation [] Already on Anticoagulation Anticipated Discharge - Date -TBD - Location - Skilled Facility - Pending the following -therapy evaluation, geriatrics recommendations Total time spent (which include face to face and non face to face encounters) : 35 minutes Extended Emergency Contact Information Primary Emergency Contact: Harshil Murguia Mobile Relation: Relative Channing Bridges Division of Hospitalist Medicine [employer] PAGER: Epic chat * Mine Costa, PT - 02/14/2023 3:42 PM EDT Images from the original note were not included. PHYSICAL THERAPY [facility] Initial Evaluation Name/MRN: Doroteo Gong ([id number]) Evaluation Date: 02/14/2023 Date of : 1940 Admission Date: 02/12/2023 11:58 PM Age: 82 y.o. Room/Bed: N4-462/N4-462 A Discharge Recommendation: SNF Equipment Needed: TBD at next level of care Assessment IMPRESSION: Patient is an 82 yo male admitted due to BLE edema, OA L knee and inability to ambulate. Patient is most limited by L knee and back pain, general weakness and decreased activity tolerance. He required mod A for supine <> sit, sit <> stand and stand-step transfers. Noted crepitus throughout low back, L knee and L hip. Patient is not safe to return home. Recommend SNF level t herapies at discharge. Patient states he prefers [facility]. Diagnosis: BLE edema, OA L knee and inability to ambulate Prognosis: good Performance Deficits /Impairments: Increased Pain, Decreased Functional Mobility, Decreased ADL status, Decreased Strength, Decreased Endurance, and Decreased Balance Decision Making: Medium Complexity Subjective RN cleared patient for PT eval. Patient awake in bed, agreeable to therapy, requesting to use BSC. Pain: Heller-Herron Pain Ratin = Hurts even more Pain Location: L knee, back Past Medical History: Past Medical History: Diagnosis Date Arthritis knees hands Asthma Chronic pain GERD (gastroesophageal reflux disease) Hyperlipidemia Kidney stone 2012 Prostate disease Sleep apnea Thyroid disease Past Surgical History: Past Surgical History: Procedure Laterality Date APPENDECTOMY BACK SURGERY 2014 slipped disc CATARACT EXTRACTION CHOLECYSTECTOMY JOINT REPLACEMENT Right 2014 LITHOTRIPSY 3-4 times OTHER SURGICAL HISTORY hemorroid removed OTHER SURGICAL HISTORY Left 12/19/2017 stent placement, cystoscopy and pyelogram, Laser Lithotripsy SINUS SURGERY Admission Diagnosis: Patient Active Problem List Diagnosis Date Noted Debility 02/14/2023 Declining functional status 02/14/2023 History of urinary retention 02/14/2023 At risk for delirium 02/14/2023 Polypharmacy 02/14/2023 Inability to walk 02/13/2023 Influenza A 03/21/2022 UTI (urinary tract infection) 02/23/2022 Fall, initial encounter 02/22/2022 Oropharyngeal dysphagia 04/25/2021 Hypoxia 11/04/2020 RICKY (obstructive sleep apnea) 11/04/2020 Class 2 obesity due to excess calories without serious comorbidity with body mass index (BMI) of 36.0 to 36.9 in adult 11/04/2020 Moderate persistent asthma without complication 11/04/2020 Shortness of breath 10/05/2020 Upper respiratory tract infection due to influenza A virus 06/23/2019 Acute asthma exacerbation 06/20/2019 Ureteral calculus 12/19/2017 Hypertrophy of prostate with urinary obstruction 08/02/2017 Renal calculi 09/28/2016 Hydronephrosis with ureteropelvic junction (UPJ) obstruction 09/28/2016 Flank pain 09/28/2016 Medical Precautions: No active isolations Proper PPE donned/doffed in accordance with facility standards. Fall Risk: Villanueva Fall Risk Score: 60 (High Risk) Precautions/Restrictions: Left LE Weight Bearing: Weight Bearing As Tolerated Lines/Drains/Airways: tele, 2L O2 NC Family/Caregiver Present: none Overall Cognitive Status: WNL Overall Orientation Status: Oriented x4 Vision: wears glasses at all times and and are being used during the eval Hearing: normal Social/Functional History Patient admitted from home. Lives With: Alone Type of Home: single family home Home Layout: Single Level Home Home Access: Stairs to Enter with Rails (# of stairs: 5) Home Equipment: front wheeled walker and cane Homemaking Responsibilities: Independent Receives Help From: None Active Cofounder: Yes Prior Level of Function ADL Assistance: Independent Ambulation Assistance: Independent Device(s) used: front wheeled walker Transfer Assistance: Independent Objective Lower Extremity Assessment AROM: WFL PROM: WFL Strength: WFL (LLE grossly 3+/5, RLE grossly 4/5) Bed Mobility: Supine to sit: Mod Assist HOB elevated, increased time to complete using bed rail, required mod A to move BLE over EOB using glide sheet and mod A to elevate trunk. Transfers Sit to stand: Mod Assist Stand to sit: Mod Assist Stand step: Mod Assist Sit <> stand from EOB x1 and BSC x1, cues for hand placement, demonstrates slow velocity. Performed stand-step from bed <> BSC and from BSC <> recliner, noted crepitus throughout low back, L hip and L knee, noted decreased weight acceptance through LLE. Ambulation Did not assess this session. Balance: Static seated balance at EOB with BUE support and SBA. Static stance with UE support on bed rail while RN performed pericare and donned brief, min A needed. Posture: fair Outcome Measures AM-PAC How much HELP from another person do you currently need Turning from your back to your side while in a flat bed without using bedrails?: A Little Moving from lying on your back to sitting on the side of a flat bed without using bedrails?: A Lot Moving to and from a bed to a chair (including a wheelchair)?: A Lot Standing up from a chair using your arms (wheelchair or bedside chair)?: A Lot Walking in a hospital room?: Total Stair climbing assessed?: No AM-PAC Inpatient Mobility Raw Score (No Stairs) : 10 JH-HLM -HLM Score: Transferred to chair/commode Plan Pt would benefit from skilled acute PT services to address Strengthening, ROM, Balance Training, Functional Mobility Training, Gait Training, Stair Training, Safety Education and Training, Patient/Caregiver Training, Equipment Evaluation/Education, and HEP . Frequency: 2x/week for 2 weeks Barriers: Pain Safety/Education Safety Safety Devices in place: call light within reach, left in chair, gait belt, patient at risk for falls, and nurse notified Restraints: N/A Education Education Given To: patient Education Provided: PT Role, PT Goals, Plan of Care, Transfer Training, and Discharge Recommendations Education Method: Verbal Barriers to Learning: None Education Outcome: Verbalized Understanding and Continued Education Needed Goals Patient Stated Goal: To get stronger Encounter Problems Encounter Problems (Active) Mobility Patient will ambulate 30 feet with CGA and rolling walker in order to improve safety and independence with mobility. Start: 02/14/23 Expected End: 02/28/23 Transfers Patient will perform bed mobility with SBA in order to improve independence and prepare for out of bed mobility. Start: 02/14/23 Expected End: 02/28/23 Patient will complete functional transfer with rolling walker with SBA in order to prepare for ambulation. Start: 02/14/23 Expected End: 02/28/23 Therapy Time Individual Co-treatment Time In 1502 Time Out 1535 Minutes 33 Timed Code Treatment Minutes: 8 Minutes (FA) Variance: 6 (toileting) Mine Costa PT Patient's Physical Therapy Plan of Care supervision is transferred to a [facility] Services Physical Therapist. Goals and/or treatment plan was established in collaboration with patient/family/other representatives. This provider wore appropriate PPE throughout session per facility guidelines. * Kayla Peña - 02/14/2023 8:38 AM EDT Nutrition rescreen completed. Chart reviewed. Patient to be monitored and followed by the diet smog technician. LENNY Cabrales documented in this [facility]11-06-2023 Note* Care Coordination - Cheli Solis RN - 02/19/2023 8:50 AM EST Images from the original note were not included. Care Management Progress Note Medically stable for discharge once facility determined. Spoke with pt this am- if [facility] has a bed that would still be his first choice but agreeable to Ilya selene if no bed avail at first choice. Message to RIA Longoria this am about bed avail- awaiting response. Will need voiding trial prior to discharge per urology notes last week. Will NOT need auth. Discharge Milestones and Delays Expected Date/Time: 02/19/[address] discharge order Complete med reconciliation Case mgmt discharge readiness Clinical Stability Diagnsotic Workup Expected Discharge History Expected Date/Time Set By Reviewed At 02/19/2023 Cheli Solis RN 02/19/2023 8:15 AM placement 02/19/2023 Cheli Solis RN 02/16/2023 8:10 AM placement, IV atb 02/16/2023 Cheli Solis RN 02/15/2023 8:12 AM poss placement 02/16/2023 Cheli Solis RN 02/14/2023 8:29 AM PT/OT vasc US 02/16/2023 Ramiro Baird MD 02/13/2023 3:37 PM 02/15/2023 Ramiro Baird MD 02/13/2023 2:38 AM Length of Stay (Days): 6 GMLOS: 2.8 [facility]11-06-2023 Note* Care Coordination - Cheli Solis RN - 02/19/2023 8:50 AM EST Images from the original note were not included. Care Management Progress Note Medically stable for discharge once facility determined. Spoke with pt this am- if [facility] Long[facility] has a bed that would still be his first choice but agreeable to Ilya morton if no bed avail at first choice. Message to RIA Longoria this am about bed avail- awaiting response. Will need voiding trial prior to discharge per urology notes last week. Will NOT need auth. Discharge Milestones and Delays Expected Date/Time: 02/19/[address] discharge order Complete med reconciliation Case mgmt discharge readiness Clinical Stability Diagnsotic Workup Expected Discharge History Expected Date/Time Set By Reviewed At 02/19/2023 Cheli Solis RN 02/19/2023 8:15 AM placement 02/19/2023 Cheli Solis RN 02/16/2023 8:10 AM placement, IV atb 02/16/2023 Cheli Solis RN 02/15/2023 8:12 AM poss placement 02/16/2023 Cheli Solis RN 02/14/2023 8:29 AM PT/OT vasc US 02/16/2023 Ramiro Baird MD 02/13/2023 3:37 PM 02/15/2023 Ramiro Baird MD 02/13/2023 2:38 AM Length of Stay (Days): 6 GMLOS: 2.8 [id number] Plan of care note* Care Plan - Petty Hernandez LPN - 02/18/2023 11:15 AM EST Problem: Knowledge Deficit Goal: Patient/family/caregiver demonstrates understanding of disease process, treatment plan, medications, and discharge instructions Outcome: Progressing Problem: Potential for Compromised Skin Integrity Goal: Skin Integrity is Maintained or Improved Outcome: Progressing Goal: Nutritional status is improving Outcome: Progressing Problem: Urinary Incontinence Goal: Perineal skin integrity is maintained or improved Outcome: Progressing [id number]* Taisha Merino RN - 02/17/2023 12:12 AM EDT Pt resting in bed with eyes closed sleeping. Schwartz is draining and below abdomin. Pt appears comfortable at this time. Will continue to monitor. 0530- No acute issues over night pt resting in bed with cont pulse ox, schwartz draining below abdominand denies any pain at this time. [id number] Plan of care note* Care Plan - Taisha Merino RN - 02/16/2023 9:16 PM EDT Problem: Knowledge Deficit Goal: Patient/family/caregiver demonstrates understanding of disease process, treatment plan, medications, and discharge instructions Outcome: Progressing Problem: Potential for Compromised Skin Integrity Goal: Skin Integrity is Maintained or Improved Outcome: Progressing Goal: Nutritional status is improving Outcome: Progressing Problem: Urinary Incontinence Goal: Perineal skin integrity is maintained or improved Outcome: Progressing [place] [id number] Plan of care note* Care Plan - Augusta Boudreaux RN - 02/16/2023 2:23 PM EDT Problem: Knowledge Deficit Goal: Patient/family/caregiver demonstrates understanding of disease process, treatment plan, medications, and discharge instructions Outcome: Progressing Problem: Potential for Compromised Skin Integrity Goal: Skin Integrity is Maintained or Improved Outcome: Progressing Goal: Nutritional status is improving Outcome: Progressing Problem: Urinary Incontinence Goal: Perineal skin integrity is maintained or improved Outcome: Progressing The patient is Moderately Stable - Low risk of patient condition declining or worsening The patient's goals for the shift include safety The clinical goals for the shift include safety [id number]* Care Coordination - Jaylyn Patel - 02/16/2023 1:29 PM EDT Referral placed to [facility] via Careport per TCC request. Await review and response regarding ability to accept. TCC notified. [id number] Note* Care Coordination - Jaylyn Patel - 02/16/2023 1:29 PM EDT Referral placed to [facility] via Careport per TCC request. Await review and response regarding ability to accept. TCC notified. [id number] Note* Care Coordination - Cheli Solis RN - 02/16/2023 12:15 PM EDT Images from the original note were not included. Care Management Progress Note Met with pt for alternate [facility] choices- requesting [facility]. Admin assist to send referrals. Also messaged first choice- [facility] to see when a bed would be avail-awaiting response. Remains on IV rocephin. Will need voiding trial prior to discharge per urology. Does NOT need auth for placement and has had 3 midnights with medicare. Discharge Milestones and Delays Expected Date/Time: 02/19/[address] discharge order Complete med reconciliation Case mgmt discharge readiness Clinical Stability Diagnsotic Workup Expected Discharge History Expected Date/Time Set By Reviewed At 02/19/2023 Cheli Solis RN 02/16/2023 8:10 AM placement, IV atb 02/16/2023 Cheli Solis RN 02/15/2023 8:12 AM poss placement 02/16/2023 Cheli Solis RN 02/14/2023 8:29 AM PT/OT vasc US 02/16/2023 Ramiro Baird MD 02/13/2023 3:37 PM 02/15/2023 Ramiro Baird MD 02/13/2023 2:38 AM Length of Stay (Days): 3 GMLOS: 2.8 [id number] Note* Care Coordination - Cheli Solis RN - 02/16/2023 12:15 PM EDT Images from the original note were not included. Care Management Progress Note Met with pt for alternate SNF choices- requesting [facility]. Admin assist to send referrals. Also messaged first choice- [facility] to see when a bed would be avail-awaiting response. Remains on IV rocephin. Will need voiding trial prior to discharge per urology. Does NOT need auth for placement and has had 3 midnights with medicare. Discharge Milestones and Delays Expected Date/Time: 02/19/[address] discharge order Complete med reconciliation Case mgmt discharge readiness Clinical Stability Diagnsotic Workup Expected Discharge History Expected Date/Time Set By Reviewed At 02/19/2023 Cheli Solis RN 02/16/2023 8:10 AM placement, IV atb 02/16/2023 Cheli Solis RN 02/15/2023 8:12 AM poss placement 02/16/2023 Cheli Solis RN 02/14/2023 8:29 AM PT/OT vasc 02/16/2023 Ramiro Baird MD 02/13/2023 3:37 PM 02/15/2023 Ramiro Baird MD 02/13/2023 2:38 AM Length of Stay (Days): 3 GMLOS: 2.8 [facility] [id number] Miscellaneous Notes* Telephone Encounter - Maximiliano Draper MA - 02/16/2023 9:46 AM EDT Kenia ARROYO from [facility] called. They were calling patient to come out to the home. Patient said his left leg was going out and he was going to hospital, so he better not have therapy and hung up phone. Patient went to [facility]. Records are in Care Everywhere. Maximiliano Draper MA documented in [facility]23 Consult note* Jonathan Bryan MD - 02/15/2023 3:32 PM EDTAssociated Order(s): IP CONSULT TO UROLOGY Urology Inpatient Consultation 02/12/2023 HISTORY OF PRESENT ILLNESS: The patient is a 82 y.o. male with past medical history significant for asthma, GERD, HLD, osteoarthritis, and BPH admitted for L. Knee pain who is here with acute urinary retention. According to thepatient he has struggled with urinary retention in the past requiring schwartz catheter placements. Heestimates that it has happened around 5 times or so. He states that he is able to void spontaneously but has to go frequently. He denies fevers, chills, nausea, vomiting, flank pain, dysuria, hematuria, suprapubic tenderness, or spinal injury. He has no history of neurologic disorder and is motor and sensory intact in his lower extremities. On evaluation, he is AF and HDS. Lab work is outlined below. On his previous admission in December, urology was consulted at that time for acute urinary retention as well at which time he was discharged with a schwartz catheter which was removed after passing a void trial outpatient. Urology consulted for evaluation and management and consideration of chronic indwelling catheter. ED/Hospital workup Cr 0.64 WBC 9.8 HGB 12.7 UA > 100 WBC, 6-10 RBC, nitrite positive Ucx (p) 14Fr schwartz PAST MEDICAL HISTORY: Past Medical History: Diagnosis Date Arthritis knees hands Asthma Chronic pain GERD (gastroesophageal reflux disease) Hyperlipidemia Kidney stone 2012 Prostate disease Sleep apnea Thyroid disease PAST SURGICAL HISTORY: Past Surgical History: Procedure Laterality Date APPENDECTOMY BACK SURGERY 2014 slipped disc CATARACT EXTRACTION CHOLECYSTECTOMY JOINT REPLACEMENT Right 2014 LITHOTRIPSY 3-4 times OTHER SURGICAL HISTORY hemorroid removed OTHER SURGICAL HISTORY Left 12/19/2017 stent placement, cystoscopy and pyelogram, Laser Lithotripsy SINUS SURGERY ALLERGIES: Allergies Allergen Reactions Allopurinol Unknown Erythromycin Unknown Penicillins Unknown Patient tolerates cephalosporins Sulfa Antibiotics Unknown Pt does not know reaction Tetracyclines & Related Unknown Levofloxacin Other jittery Ciprofloxacin Unknown Paroxetine Other Fatigue HOME MEDICATIONS: Medications Prior to Admission Medication Sig Dispense Refill Last Dose acetaminophen (Tylenol 8 Hour) 650 MG ER tablet Take 650 mg by mouth every 8 hours as needed. albuterol 108 (90 Base) MCG/ACT inhaler Inhale 2 puffs every 6 hours as needed. alfuzosin ER (Uroxatral) 10 MG 24 hr tablet Take 1 tablet (10 mg) by mouth daily. 90 tablet 3 bisacodyl (Fleet Bisacodyl) 10 MG/30ML enema Insert 10 mg into the rectum Once. carboxymethylcellulose (Refresh Plus) 0.5 % ophthalmic solution Administer 1 drop into both eyes ifneeded for dry eyes. cyanocobalamin (CVS Vitamin B-12) 1000 MCG tablet Take 1,000 mcg by mouth. escitalopram (Lexapro) 10 MG tablet Take 10 mg by mouth daily. finasteride (Proscar) 5 MG tablet Take 1 tablet (5 mg) by mouth daily. 90 tablet 3 fluticasone (Flovent) 110 MCG/ACT inhaler Inhale 2 puffs in the morning and 2 puffs before bedtime. hydroCHLOROthiazide (HYDRODiuril) 25 MG tablet Take 25 mg by mouth every morning. ipratropium (Atrovent) 0.06 % nasal spray Administer 2 sprays into affected nostril(s). levothyroxine (Synthroid, Levoxyl) 50 MCG tablet Take 50 mcg by mouth in the morning. magnesium hydroxide (Milk of Magnesia) 800 MG/5ML suspension Take by mouth Daily as needed for constipation. omeprazole (PriLOSEC) [address] capsule Take 20 mg by mouth in the morning. ondansetron ODT (Zofran-ODT) 4 MG disintegrating tablet Take 4 mg by mouth every 8 hours as needed for nausea or vomiting. pantoprazole (ProtoNix) 40 MG EC tablet TAKE 1 TABLET BY MOUTH ONCE DAILY. 30 MINUTES BEFORE EATING. polyethylene glycol, PEG, 3350 (Glycolax) 17 GM/SCOOP powder Take by mouth. simvastatin (Zocor) 20 MG tablet Take 20 mg by mouth in the morning. FAMILY HISTORY: Family History Problem Relation Name Age of Onset Heart failure Mother Diabetes Mother Social History: Social History Tobacco Use Smoking Status Never Smokeless Tobacco Never Social History Substance and Sexual Activity Alcohol Use No ROS: Constitutional: negative for chills and fevers HEENT: no blurry vision or eye redness Respiratory: negative for hemoptysis and shortness of breath Cardiovascular: negative for dyspnea and syncope Gastrointestinal: negative for jaundice, nausea and vomiting Genitourinary: see HPI Hematologic/lymphatic: negative for bleeding Integumentary: no new bruises or lesions Musculoskeletal:negative for muscle weakness Neurological: negative for coordination problems and seizures All other systems negative PHYSICAL EXAM: VITALS: Vitals: 02/14/23 2356 02/15/23 0419 02/15/23 0811 02/15/23 1230 BP: (!) 141/78 (!) 143/69 (!) 147/84 137/72 BP Location: Right arm Left arm Right arm Right arm Patient Position: Sitting Sitting Pulse: 65 64 68 73 Resp: 20 16 17 17 Temp: 36.6 C (97.9 F) 36 C (96.8 F) 36.8 C (98.2 F) 36.9 C (98.4 F) TempSrc: Temporal Temporal Temporal Temporal SpO2: 97% 97% 93% 94% General: Alert, in no acute distress Head: Normocephalic, atraumatic Neck: supple, trachea is midline, no obvious masses Respiratory: normal effort, no audible wheezes Cardiovascular: regular pulse and no cyanosis Musculoskeletal: moving all extremities, normal tone Skin: warm and dry Psych: normal mood and affect, oriented Abdomen: soft, non distended, non tender, no organomegaly, no hernias : Right flank/CVA NTTP, L flank NTTP, no suprapubic ttp 14Fr schwartz in place draining yellow urine DATA: LABS: BMP: Lab Results Component Value Date NA 135 02/15/2023 K 4.4 02/15/2023 CL 102 02/15/2023 CO2 25 02/15/2023 BUN 22 (H) 02/15/2023 CREATININE 0.64 (L) 02/15/2023 CALCIUM 9.5 02/15/2023 GLUCOSE 120 (H) 02/15/2023 CBC: Lab Results Component Value Date WBC 9.8 02/14/2023 HGB 12.7 (L) 02/14/2023 HCT 39.0 (L) 02/14/2023 MCV 92.2 02/14/2023 PLT 406 02/14/2023 Urinalysis: No results found for: UA Urine Culture: No components found for: UCX RADIOLOGY: US on Vascular US lower extremity venous duplex bilateral No evidence of deep vein or superficial vein thrombosis in the right lower extremity. Vessels demonstrate normal compressibility, color filling, and phasic and spontaneous flow. No evidence of deep vein or superficial vein thrombosis in the left lower extremity. Vessels demonstrate normal compressibility, color filling, and phasic and spontaneous flow. IMPRESSION: 82 y.o. male with urinary retention PLAN: - No acute urologic surgical intervention indicated at this time - Maintain catheter to straight drain - continue finasteride 5 and Alfuzosin - Bowel regimen per primary service - UA with signs of infection - Check urine culture, treat per results - Cr wnl, continue to monitor - after extensive discussion with patient regarding schwartz placement for recurrent retention, he does not desire a permanent schwartz. - most recent FRANCINE on 01/30 outpatient showed no signs of hydronephrosis - outpatient PVRs 330 at last visit but he endorses no pain or discomfort - would recommend void trial prior to discharge if: having regular bowel movements, ambulating regularly, on Flomax, and schwartz has been in place >48h - [facility] mental health professional resident opto mechanical technician of anticipated discharge for void trial instructions - continue to follow up with Urology as outpatient - remainder of care per primary team Tk Wynne MD 02/15/2023 3:32 PM The history and physical has been reviewed. The pertinent findings from the history of present illness, past medical history, family history, social history, review of systems have been noted and confirmed that are unchanged. Discussed with the urology resident. Agree with assessment and plan [place] Phone: [phone] 378-269611-02-2023 Consult note* Jonathan Bryan MD - 02/15/2023 3:32 PM EDTAssociated Order(s): IP CONSULT TO UROLOGY Urology Inpatient Consultation 02/12/2023 HISTORY OF PRESENT ILLNESS: The patient is a 82 y.o. male with past medical history significant for asthma, GERD, HLD, osteoarthritis, and BPH admitted for L. Knee pain who is here with acute urinary retention. According to thepatient he has struggled with urinary retention in the past requiring schwartz catheter placements. Heestimates that it has happened around 5 times or so. He states that he is able to void spontaneously but has to go frequently. He denies fevers, chills, nausea, vomiting, flank pain, dysuria, hematuria, suprapubic tenderness, or spinal injury. He has no history of neurologic disorder and is motor and sensory intact in his lower extremities. On evaluation, he is AF and HDS. Lab work is outlined below. On his previous admission in December, urology was consulted at that time for acute urinary retention as well at which time he was discharged with a schwartz catheter which was removed after passing a void trial outpatient. Urology consulted for evaluation and management and consideration of chronic indwelling catheter. ED/Hospital workup Cr 0.64 WBC 9.8 HGB 12.7 UA > 100 WBC, 6-10 RBC, nitrite positive Ucx (p) 14Fr schwartz PAST MEDICAL HISTORY: Past Medical History: Diagnosis Date Arthritis knees hands Asthma Chronic pain GERD (gastroesophageal reflux disease) Hyperlipidemia Kidney stone 2012 Prostate disease Sleep apnea Thyroid disease PAST SURGICAL HISTORY: Past Surgical History: Procedure Laterality Date APPENDECTOMY BACK SURGERY 2014 slipped disc CATARACT EXTRACTION CHOLECYSTECTOMY JOINT REPLACEMENT Right 2014 LITHOTRIPSY 3-4 times OTHER SURGICAL HISTORY hemorroid removed OTHER SURGICAL HISTORY Left 12/19/2017 stent placement, cystoscopy and pyelogram, Laser Lithotripsy SINUS SURGERY ALLERGIES: Allergies Allergen Reactions Allopurinol Unknown Erythromycin Unknown Penicillins Unknown Patient tolerates cephalosporins Sulfa Antibiotics Unknown Pt does not know reaction Tetracyclines & Related Unknown Levofloxacin Other jittery Ciprofloxacin Unknown Paroxetine Other Fatigue HOME MEDICATIONS: Medications Prior to Admission Medication Sig Dispense Refill Last Dose acetaminophen (Tylenol 8 Hour) 650 MG ER tablet Take 650 mg by mouth every 8 hours as needed. albuterol 108 (90 Base) MCG/ACT inhaler Inhale 2 puffs every 6 hours as needed. alfuzosin ER (Uroxatral) 10 MG 24 hr tablet Take 1 tablet (10 mg) by mouth daily. 90 tablet 3 bisacodyl (Fleet Bisacodyl) 10 MG/30ML enema Insert 10 mg into the rectum Once. carboxymethylcellulose (Refresh Plus) 0.5 % ophthalmic solution Administer 1 drop into both eyes ifneeded for dry eyes. cyanocobalamin (CVS Vitamin B-12) 1000 MCG tablet Take 1,000 mcg by mouth. escitalopram (Lexapro) 10 MG tablet Take 10 mg by mouth daily. finasteride (Proscar) 5 MG tablet Take 1 tablet (5 mg) by mouth daily. 90 tablet 3 fluticasone (Flovent) 110 MCG/ACT inhaler Inhale 2 puffs in the morning and 2 puffs before bedtime. hydroCHLOROthiazide (HYDRODiuril) 25 MG tablet Take 25 mg by mouth every morning. ipratropium (Atrovent) 0.06 % nasal spray Administer 2 sprays into affected nostril(s). levothyroxine (Synthroid, Levoxyl) 50 MCG tablet Take 50 mcg by mouth in the morning. magnesium hydroxide (Milk of Magnesia) 800 MG/5ML suspension Take by mouth Daily as needed for constipation. omeprazole (PriLOSEC) [address] capsule Take 20 mg by mouth in the morning. ondansetron ODT (Zofran-ODT) 4 MG disintegrating tablet Take 4 mg by mouth every 8 hours as needed for nausea or vomiting. pantoprazole (ProtoNix) 40 MG EC tablet TAKE 1 TABLET BY MOUTH ONCE DAILY. 30 MINUTES BEFORE EATING. polyethylene glycol, PEG, 3350 (Glycolax) 17 GM/SCOOP powder Take by mouth. simvastatin (Zocor) 20 MG tablet Take 20 mg by mouth in the morning. FAMILY HISTORY: Family History Problem Relation Name Age of Onset Heart failure Mother Diabetes Mother Social History: Social History Tobacco Use Smoking Status Never Smokeless Tobacco Never Social History Substance and Sexual Activity Alcohol Use No ROS: Constitutional: negative for chills and fevers HEENT: no blurry vision or eye redness Respiratory: negative for hemoptysis and shortness of breath Cardiovascular: negative for dyspnea and syncope Gastrointestinal: negative for jaundice, nausea and vomiting Genitourinary: see HPI Hematologic/lymphatic: negative for bleeding Integumentary: no new bruises or lesions Musculoskeletal:negative for muscle weakness Neurological: negative for coordination problems and seizures All other systems negative PHYSICAL EXAM: VITALS: Vitals: 02/14/23 2356 02/15/23 0419 02/15/23 0811 02/15/23 1230 BP: (!) 141/78 (!) 143/69 (!) 147/84 137/72 BP Location: Right arm Left arm Right arm Right arm Patient Position: Sitting Sitting Pulse: 65 64 68 73 Resp: 20 16 17 17 Temp: 36.6 C (97.9 F) 36 C (96.8 F) 36.8 C (98.2 F) 36.9 C (98.4 F) TempSrc: Temporal Temporal Temporal Temporal SpO2: 97% 97% 93% 94% General: Alert, in no acute distress Head: Normocephalic, atraumatic Neck: supple, trachea is midline, no obvious masses Respiratory: normal effort, no audible wheezes Cardiovascular: regular pulse and no cyanosis Musculoskeletal: moving all extremities, normal tone Skin: warm and dry Psych: normal mood and affect, oriented Abdomen: soft, non distended, non tender, no organomegaly, no hernias : Right flank/CVA NTTP, L flank NTTP, no suprapubic ttp 14Fr schwartz in place draining yellow urine DATA: LABS: BMP: Lab Results Component Value Date NA 135 02/15/2023 K 4.4 02/15/2023 CL 102 02/15/2023 CO2 25 02/15/2023 BUN 22 (H) 02/15/2023 CREATININE 0.64 (L) 02/15/2023 CALCIUM 9.5 02/15/2023 GLUCOSE 120 (H) 02/15/2023 CBC: Lab Results Component Value Date WBC 9.8 02/14/2023 HGB 12.7 (L) 02/14/2023 HCT 39.0 (L) 02/14/2023 MCV 92.2 02/14/2023 PLT 406 02/14/2023 Urinalysis: No results found for: UA Urine Culture: No components found for: UCX RADIOLOGY: US on Vascular US lower extremity venous duplex bilateral No evidence of deep vein or superficial vein thrombosis in the right lower extremity. Vessels demonstrate normal compressibility, color filling, and phasic and spontaneous flow. No evidence of deep vein or superficial vein thrombosis in the left lower extremity. Vessels demonstrate normal compressibility, color filling, and phasic and spontaneous flow. IMPRESSION: 82 y.o. male with urinary retention PLAN: - No acute urologic surgical intervention indicated at this time - Maintain catheter to straight drain - continue finasteride 5 and Alfuzosin - Bowel regimen per primary service - UA with signs of infection - Check urine culture, treat per results - Cr wnl, continue to monitor - after extensive discussion with patient regarding schwartz placement for recurrent retention, he does not desire a permanent schwartz. - most recent FRANCINE on 01/30 outpatient showed no signs of hydronephrosis - outpatient PVRs 330 at last visit but he endorses no pain or discomfort - would recommend void trial prior to discharge if: having regular bowel movements, ambulating regularly, on Flomax, and schwartz has been in place >48h - [facility] mental health professional resident opto mechanical technician of anticipated discharge for void trial instructions - continue to follow up with Urology as outpatient - remainder of care per primary team Tk Wynne MD 02/15/2023 3:32 PM The history and physical has been reviewed. The pertinent findings from the history of present illness, past medical history, family history, social history, review of systems have been noted and confirmed that are unchanged. Discussed with the urology resident. Agree with assessment and plan * Keny Willis MD - 02/14/2023 8:56 AM EDTAssociated Order(s): IP CONSULT TO GERIATRICS [facility] Geriatric Medicine Inpatient Consult Service Admission Date: 02/12/2023 Admission Status: INPATIENT Chief Complaint: Chief Complaint Patient presents with Extremity Weakness Reason for Appointment Geriatrics consulted for Functional Decline Assessment/Plan Principal Problem: Inability to walk Active Problems: Debility Declining functional status History of urinary retention At risk for delirium Polypharmacy Debility with functional decline/knee OA 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 - Vitamin D level is pending - patient will likely benefit from stay at a physical rehab facility. - PT/OT. - management per Ortho. s/p knee injection last evening, symptoms improved - consider scheduled acetaminophen for pain, topical lidocaine (pt agreeable, ordered) or can consider topical diclofenac gel Tremor - managed by PCP -worse with breathing treatment per patient - using rescue inhalers regular ?if titration of medications may decrease use of the rescue inhaler and improve tremor. Urinary retention - patient has had urinary retention in the past - consider obtaining a PVR At risk for delirium --Risk factors: pain and advanced age --Encourage PO intake, time up in chair, family visits, and sleep hygiene --If agitated, assess for and consider treating for pain --QTc= 453 --No antipsychotic unless patient is danger to self/others/treatment --Start scheduled melatonin at HS --Monitor for constipation/urinary retention - last BM unknown Cognitive changes MMSE was 27 with a CDT of 6 - these are both normal for age and level of education. - follow up PRN. - TSH was wnl - as below Polypharmacy: On more than 5 meds at home. - B12 was elevated at 974 - consider discontinuing and follow levels on an OP basis. DW patient - reports taking vitamin B12 2-3 times a day related to his tremor. Finds it effective. Generally low risk for complications associated with supratherapeutic levels of B12 with normal renal function. Recommend follow up with PCP Remaining management per primary team. Subjective: HPI 82 y.o. year-old male presented from home for inability to walk 2/2 left leg giving out. Patient states that on Sunday night, his leg froze up on him, and he was not able to move. Patient then called 911 and was brought to [facility] ED. While at the ED, his left leg started hurting. Prior to this incident, he had been leaning on guajardo to walk. He was also using a walker while leaning on the wall, prior to arrival. He has not had anything like this before. Patient just got out of PT 2 weeksago at [facility]. He was also supposed to have PT come to the house on Sunday, but had to cancel, as he had to come to the hospital. He reports his left hip and left knee have been hurting. 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 Initially, patient had 8/10 pain. Currently pain is a 2/10. He received a knee injection yesterday - states that it helped. No numbness or tingling. No radiation. Patient lives in a single story house with a basement and an attic in [place]. He has not been to the basement or the attic in over a year. He has not been driving for one year 2/2 being in rehab off and on for one year. Geriatrics ED screen positive for: Not done Conversation with caregiver: Tried to call Harshil - patient's nephew - went to . Advance Care Planning Healthcare Power ofAttorney: Yes, Harshil Financial Power of Aqua Ammonia Operator: Yes, Harshil Living Will:Yes Code Status: Full Code. Allergies Allergen Reactions Allopurinol Unknown Erythromycin Unknown Penicillins Unknown Sulfa Antibiotics Unknown Pt does not know reaction Tetracyclines & Related Unknown Levofloxacin Other jittery Ciprofloxacin Unknown Paroxetine Other Fatigue Current Facility-Administered Medications: acetaminophen (Tylenol) tablet 1,000 mg, 1,000 mg, Oral, TID, 1,000 mg at 02/14/23 0853 OR [DISCONTINUED] acetaminophen (Tylenol) suppository 650 mg, 650 mg, Rectal, q6h PRN, Jose Alfredo Chambers DO albuterol 108 (90 Base) MCG/ACT inhaler 2 puff, 2 puff, Inhalation, q6h PRN, Jose Alfredo Chambers DO, 2 puff at 02/14/23 0904 atorvastatin (Lipitor) tablet 10 mg, 10 mg, Oral, Daily, Jose Alfredo Chambers DO, 10 mg at 02/14/23 0854 carboxymethylcellulose PF (Refresh Plus) 0.5 % ophthalmic solution 1 drop, 1 drop, Both Eyes, TID PRN, Kishan Carl MD cyanocobalamin (Vitamin B-12) tablet 1,000 mcg, 1,000 mcg, Oral, Daily, Jose Alfredo Chambers DO, 1,000 mcgat 02/14/23 0854 enoxaparin (Lovenox) syringe 40 mg, 40 mg, SubCUTAneous, Daily, Jose Alfredo Chambers DO, 40 mg at 816 escitalopram (Lexapro) tablet 10 mg, 10 mg, Oral, Daily, Jose Alfredo Chambers DO, 10 mg at 02/14/23 0854 finasteride (Proscar) tablet 5 mg, 5 mg, Oral, Daily, Jose Alfredo Chambers DO, 5 mg at 02/13/23 181 guaiFENesin (Mucinex) 12 hr tablet 600 mg, 600 mg, Oral, BID, Kishan Carl MD, 600 mg at 02/14/23 0854 hydroCHLOROthiazide (HYDRODiuril) tablet 25 mg, 25 mg, Oral, q AM, Jose Alfredo Chambers DO Influenza Vac A&B SA Adj quadrivalent (Fluad) vaccine 0.5 mL, 0.5 mL, IntraMUSCular, Once, Jose Alfredo Chambers DO levothyroxine (Synthroid, Levoxyl) tablet 50 mcg, 50 mcg, Oral, Daily, Jose Alfredo Chambers DO, 50 mcg at 02/14/23 0855 LORazepam (Ativan) tablet 0.5 mg, 0.5 mg, Oral, Once, Kishan Carl MD ondansetron ODT (Zofran-ODT) disintegrating tablet 4 mg, 4 mg, Oral, q8h PRN OR ondansetron (Zofran) injection 4 mg, 4 mg, IntraVENous, q6h PRN, Jose Alfredo Chambers DO pantoprazole (ProtoNix) EC tablet 40 mg, 40 mg, Oral, qAM AC, Jose Alfredo Chambers DO, 40 mg at 02/14/23 0528 polyethylene glycol (PEG) 3350 (Miralax) packet 17 g, 17 g, Oral, Daily PRN, Jose Alfredo Chambers DO sodium chloride 0.9 % infusion, 5-250 mL/hr, IntraVENous, PRN, Jose Alfredo Chambers DO sodium chloride 0.9% (NS) flush 10 mL, 10 mL, IntraVENous, 2 times per day, Jose Alfredo Chambers DO, 10 mLat 02/14/23 0856 sodium chloride 0.9% (NS) flush 10 mL, 10 mL, IntraVENous, PRN, Jose Alfredo Chambers DO tamsulosin (Flomax) 24 hr capsule 0.4 mg, 0.4 mg, Oral, Daily, Jose Alfredo Chambers DO, 0.4 mg at 854 traMADol (Ultram) tablet 50 mg, 50 mg, Oral, q8h PRN, Jose Alfredo Chambers DO Past Medical History: Diagnosis Date Arthritis knees hands Asthma Chronic pain GERD (gastroesophageal reflux disease) Hyperlipidemia Kidney stone 2012 Prostate disease Sleep apnea Thyroid disease Past Surgical History: Procedure Laterality Date APPENDECTOMY BACK SURGERY 2013 slipped disc CATARACT EXTRACTION CHOLECYSTECTOMY JOINT REPLACEMENT Right 2014 LITHOTRIPSY 3-4 times OTHER SURGICAL HISTORY hemorroid removed OTHER SURGICAL HISTORY Left 12/19/2017 stent placement, cystoscopy and pyelogram, Laser Lithotripsy SINUS SURGERY Social History Social History Tobacco Use Smoking status: Never Smokeless tobacco: Never Substance Use Topics Alcohol use: No Social History Social History Narrative Not on file Patient Currently Lives: house Level of FamilySupport: some - nephew lives in the area Community Resources: yesHome PT Elder Abuse: no Education Level: College Degree in Communications . Family History Family History Problem Relation Name Age of Onset Heart failure Mother Diabetes Mother Family Status Relation Name Status Mother (Not Specified) Family history reviewed as above Review of Systems Constitutional: Negative for chills and fever. HENT: Negative for ear discharge, ear pain, rhinorrhea and sore throat. Eyes: Negative for pain and discharge. Respiratory: Negative for cough, chest tightness and shortness of breath. Cardiovascular: Negative for chest pain, palpitations and leg swelling. Gastrointestinal: Negative for abdominal pain, constipation, diarrhea, nausea and vomiting. Genitourinary: Negative for dysuria, frequency, hematuria and urgency. Musculoskeletal: Positive for arthralgias (left knee and hip) and gait problem. Skin: Negative for pallor and rash. Neurological: Negative for seizures, syncope, facial asymmetry and headaches. Psychiatric/Behavioral: Negative for agitation and confusion. The patient is not nervous/anxious. Depression Screening: PHQ-2 Over the past 2 weeks, how often have you been botheredby any of the following problems? 1) Little interest or pleasure in doing things: No 2)Felling down, depressed, or hopeless: No Functional Status (I: Independent, A: Assisted, D: Dependent) ADLs I A D Notes Bathing [x] [] [] Dressing [x] [] [] Toileting [x] [] [] Transfers [x] [] [] Feeding [x] [] [] Ambulation [] [x] [] Assistive devices: walker IADLs I A D { Telephone [x] [] [] Transportation [] [] [x] Driving safety concerns: Has not driven for one year 2/2 knee pain - has difficulty getting in and out of the car. Shopping [] [x] [] Meal prep [x] [] [] Housework [] [] [x] Medications [x] [] [] Finances [x] [] [] Objective: BP (!) 99/48 (BP Location: Left arm) Pulse 63 Temp 36.9 C (98.5 F) (Temporal) Resp 18 SpO2 95% Intake/Output Summary (Last 24 hours) at 02/14/2023 1041 Last data filed at 02/14/2023 0400 Gross per 24 hour Intake -- Output 400 ml Net -400 ml Wt Readings from Last 3 Encounters: 01/30/23 165 lb (74.8 kg) 12/31/22 165 lb 9.1 oz (75.1 kg) 12/12/22 167 lb (75.8 kg) Physical Exam Constitutional: Appearance: Normal appearance. HENT: Head: Normocephalic and atraumatic. Right Ear: External ear normal. Left Ear: External ear normal. Nose: Nose normal. Mouth/Throat: Mouth: Mucous membranes are moist. Eyes: General: Right eye: No discharge. Left eye: No discharge. Cardiovascular: Rate and Rhythm: Normal rate and regular rhythm. Heart sounds: Normal heart sounds. No murmur heard. No friction rub. No gallop. Pulmonary: Effort: Pulmonary effort is normal. No respiratory distress. Breath sounds: Normal breath sounds. No stridor. No wheezing, rhonchi or rales. Abdominal: General: Abdomen is flat. There is no distension. Palpations: Abdomen is soft. There is no mass. Tenderness: There is no abdominal tenderness. There is no guarding or rebound. Musculoskeletal: Cervical back: Normal range of motion and neck supple. Right lower leg: No edema. Left lower leg: No edema. Comments: Minimal swelling left knee. Bandage present at the left knee site of injection - CDI - nosigns of infection. Skin: General: Skin is warm and dry. Capillary Refill: Capillary refill takes less than 2 seconds. Neurological: General: No focal deficit present. Mental Status: He is alert and oriented to person, place, and time. Psychiatric: Behavior: Behavior normal. Mini-Mental Status Exam: Domains Points Correct Oriented to: Year, Season, Month, Day, and Date STATE, COUNTY, TOWN, HOSPITAL, and FLOOR 10 Registration (immediate recall) Apple, Table, Sully # of Trials: 1 3 Serial 7s Use if 8th grade education or better 93, 86, 79, 72, 65 3 WORLD Backwards Use if <8th grade education D L R O W Not used Delayed 3 item recall Apple, Table, Sully 2 Repetition Repeat after me: NO IFS, ANDS, OR BUTS 1 3 Step Command Take paper in right hand, fold it in half, & set on floor 3 Naming Watch Pen 2 Reading Read & Obey Present: Close your eyes 1 Write a sentence 1 Copy Design (overlapping pentagons) 1 MMSE Score: 27/30 Clock Drawing Test: Correct Elements (1 pt each): Numbers 1-12 only included, Numbers are drawn inside the clock [place], Numbers are equally spaced from each other, hour hand points to correct number, minute hand points to correct number, and there are only 2 clock hands Total Score 6/7 Time Instructions: Twothirty-five Scores < 5 out of 7 correlate with significantly more driving errors J Gen Blade Worker Med 2005; 20:240-244 Labs and Imaging: Recent Results (from the past 24 hour(s)) CBC auto differential Collection Time: 02/14/23 1:26 AM Result Value Ref Range Auto WBC 9.8 3.6 - 10.7 10*3/uL RBC 4.23 (L) 4.40 - 5.90 10*6/uL Hemoglobin 12.7 (L) 13.0 - 18.0 g/dL Hematocrit 39.0 (L) 40.0 - 52.0 % MCV 92.2 80.0 - 98.0 fL MCH 30.0 26.0 - 34.0 pg MCHC 32.5 32.0 - 36.0 % RDW 13.9 11.5 - 14.5 % Platelets 406 140 - 440 10*3/uL MPV 7.7 7.4 - 12.4 fL nRBC 0.0 0.0 - 2.0 /100 WBCs Neutrophils Relative 73.6 40.0 - 80.0 % Lymphocytes Relative 18.7 (L) 20.0 - 40.0 % Monocytes Relative 7.3 2.0 - 10.0 % Eosinophils Relative 0.1 (L) 1.0 - 6.0 % Basophils Relative 0.3 0.0 - 2.0 % Neutrophils Absolute 7.2 (H) 1.8 - 7.0 10*3/uL Lymphocytes Absolute 1.8 1.0 - 4.3 10*3/uL Monocytes Absolute 0.7 0.0 - 0.8 10*3/uL Eosinophils Absolute 0.0 0.0 - 0.5 10*3/uL Basophils Absolute 0.0 0.0 - 0.2 10*3/uL Vitamin B12 Collection Time: 02/14/23 1:26 AM Result Value Ref Range VITAMIN B12 974 (H) 239 - 931 pg/mL TSH Collection Time: 02/14/23 1:26 AM Result Value Ref Range THYROID STIMULATING HORMONE 0.616 0.465 - 4.680 uIU/mL Folate Collection Time: 02/14/23 1:26 AM Result Value Ref Range FOLATE 5.0 >=2.9 ng/mL T4, free Collection Time: 02/14/23 1:26 AM Result Value Ref Range FREE T4 1.01 0.78 - 2.19 ng/dL Basic metabolic panel Collection Time: 02/14/23 1:26 AM Result Value Ref Range SODIUM 136 135 - 145 mmol/L POTASSIUM 4.6 3.5 - 5.1 mmol/L CHLORIDE 104 98 - 107 mmol/L CARBON DIOXIDE 22 22 - 30 mmol/L UREA NITROGEN 17 9 - 20 mg/dL CREATININE 0.71 0.66 - 1.25 mg/dL GLUCOSE 126 (H) 70 - 100 mg/dL CALCIUM 9.2 8.4 - 10.4 mg/dL ANION GAP 10 3 - 13 mmol/L eGFR >90.0 >60.0 mL/min/1.73m*2 Lab Results Component Value Date TSH 0.616 02/14/2023 No components found for: B12 No results found for: VITD25 Reviewed: active problem list, medication list, allergies, family history, social history, notes from last encounter, lab results, imaging Follow-up: prn Communication of Consult Recommendations: Assessment and recommendations communicated to primary service - via note. Keny Willis MD PGY4 Geriatric fellow. Associated attestation - Cady Aquino DO - 02/14/2023 2:33 PM EDT I have independently seen and evaluated the patient and agree with the Fellow, Dr. Willis. I have edited note as needed, please see edits in blue as needed. 82 yo male who presented from home with weakness and development of knee pain. Denies recent trauma. Was recently hospitalized and discharged to SNF. Returned home about 2 weeks ago per aptient. He reports that he has been doing well until Sunday. Leg got weaker and he was having to use the wall for support. He lives alone and was worried about falling so called 911. Knee pain - worse in last year, schedule for replacement in April. He's not convinced the knee OAwas the cause of his symptoms yesterday. Worries about having had a stroke at some point because hefeels that his right side has gotten weaker over the past 3-4 months, finds himself leaning more. Had knee injection yesterday and helped with symptoms. Hand tremor - bilateral, worse on the left and then to the right. States he thinks it is worse/fromthe breathing treatments. Has been taking B12 2-3 times per day and finds this helpful. Reports resp therapist at one point told him he should be taking it with his breathing treatments. Breathing - wears oxygen only at night, didn't do well with CPAP/BiPAP - had difficulty with settings. Lives along. Nephew helps out. Agreeable to return to SNF if recommended - states he doesn't feel confident yet to return home. On exam - alert, talkative, good historian of events and medical hsitory. RRR, lungs are clear anteriorly, abd soft. + edema R>L leg. Sensation intact. 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 + L>R hand tremor at rest and with activity. Sensation intact throughout A/P Fall 02/12/23, functional decline, oa Tremor B12 - levels elevated Signed electronically by Cady Aquino DO on 02/14/2023 at 2:22 PM * Layo Staples MD - 02/13/2023 8:04 PM EDTAssociated Order(s): IP CONSULT TO ORTHOPAEDIC SURGERY Images from the original note were not included. Ortho Consult Patient: Doroteo Gong Date of : 1940 Acct: [id number] PCP: ROOPA MADERA MD Date of Admission: 02/12/2023 Date of Service: Pt seen/examined on 02/13/2023 Chief Complaint: Left knee pain History Of Present Illness: This is a 82 y.o. male with past medical history of left knee osteoarthritis presenting to [facility] with acute on chronic left knee pain. Patient has previouslybeen seen and evaluated for his left knee pain by Dr. Leigh who performed his right BUDDY ~10 years ago. Patient reports his left knee has been bothering him for over a year and it started acutely wo rsening on 02/12 making it difficult for him to ambulate. Patient denies recent trauma or injury tohis left knee. Denies any recent fevers, chills or feelings of malaise. Patient reports that he has undergone prior left knee steroid injections by Dr. Madera his primarycare physician as well as by Dr. Leigh. He has gained significant relief from these prior steroid injections. Presently patient reports that he is scheduled for a left TKA with Dr. Leigh on 05/15/2023. Patient ambulation status: walker Antiplatelets/Anticoagulation includes: none Hx from chart and/or Pt. Past Medical History: Past Medical History: Diagnosis Date Arthritis knees hands Asthma Chronic pain GERD (gastroesophageal reflux disease) Hyperlipidemia Kidney stone 2013 Prostate disease Sleep apnea Thyroid disease Past Surgical History: Past Surgical History: Procedure Laterality Date APPENDECTOMY BACK SURGERY 2014 slipped disc CATARACT EXTRACTION CHOLECYSTECTOMY JOINT REPLACEMENT Right 2014 LITHOTRIPSY 3-4 times OTHER SURGICAL HISTORY hemorroid removed OTHER SURGICAL HISTORY Left 12/19/2017 stent placement, cystoscopy and pyelogram, Laser Lithotripsy SINUS SURGERY Home Medications: Prior to Admission medications Medication Sig Start Date End Date Taking? Authorizing Provider acetaminophen (Tylenol 8 Hour) 650 MG ER tablet Take 650 mg by mouth every 8 hours as needed. Historical Provider, albuterol 108 (90 Base) MCG/ACT inhaler Inhale 2 puffs every 6 hours as needed. 12/13/21 Historical Provider, alfuzosin ER (Uroxatral) 10 MG 24 hr tablet Take 1 tablet (10 mg) by mouth daily. 01/30/23 DARION Breen CNP bisacodyl (Fleet Bisacodyl) 10 MG/30ML enema Insert 10 mg into the rectum Once. Historical Provider, carboxymethylcellulose (Refresh Plus) 0.5 % ophthalmic solution Administer 1 drop into both eyes ifneeded for dry eyes. Historical Provider, cyanocobalamin ([employer] Vitamin B-12) 1000 MCG tablet Take 1,000 mcg by mouth. Historical Provider, escitalopram (Lexapro) 10 MG tablet Take 10 mg by mouth daily. Historical Provider, finasteride (Proscar) 5 MG tablet Take 1 tablet (5 mg) by mouth daily. 01/30/23 DARION Breen CNP fluticasone (Flovent) 110 MCG/ACT inhaler Inhale 2 puffs in the morning and 2 puffs before bedtime.05/20/21 01/18/23 Historical Provider, hydroCHLOROthiazide (HYDRODiuril) 25 MG tablet Take 25 mg by mouth every morning. 03/05/21 Historical Provider, ipratropium (Atrovent) 0.06 % nasal spray Administer 2 sprays into affected nostril(s). 06/15/21 Historical Provider, levothyroxine (Synthroid, Levoxyl) 50 MCG tablet Take 50 mcg by mouth in the morning. 11/22/21 Historical Provider, magnesium hydroxide (Milk of Magnesia) 800 MG/5ML suspension Take by mouth Daily as needed for constipation. Historical Provider, omeprazole (PriLOSEC) [address] capsule Take 20 mg by mouth in the morning. 03/14/21 Historical Provider, ondansetron ODT (Zofran-ODT) 4 MG disintegrating tablet Take 4 mg by mouth every 8 hours as needed for nausea or vomiting. Historical Provider, pantoprazole (ProtoNix) 40 MG EC tablet TAKE 1 TABLET BY MOUTH ONCE DAILY. 30 MINUTES BEFORE EATING. 01/07/22 Historical Provider, polyethylene glycol, PEG, 3350 (Glycolax) 17 GM/SCOOP powder Take by mouth. Historical Provider, simvastatin (Zocor) 20 MG tablet Take 20 mg by mouth in the morning. 12/08/21 Historical Provider, Current Hospital Medications: Current Facility-Administered Medications: acetaminophen (Tylenol) tablet 1,000 mg, 1,000 mg, Oral, TID, 1,000 mg at 02/13/232000 OR [DISCONTINUED] acetaminophen (Tylenol) suppository 650 mg, 650 mg, Rectal, q6h PRN, Jose Alfredo Chambers DO albuterol 108 (90 Base) MCG/ACT inhaler 2 puff, 2 puff, Inhalation, q6h PRN, Jose Alfredo Chambers DO, 2 puff at 02/13/23 1800 atorvastatin (Lipitor) tablet 10 mg, 10 mg, Oral, Daily, Jose Alfredo Chambers DO, 10 mg at 02/13/231815 cyanocobalamin (Vitamin B-12) tablet 1,000 mcg, 1,000 mcg, Oral, Daily, Jose Alfredo Chambers DO, 1,000 mcgat 02/13/231815 enoxaparin (Lovenox) syringe 40 mg, 40 mg, SubCUTAneous, Daily, Jose Alfredo Chambers DO, 40 mg at escitalopram (Lexapro) tablet 10 mg, 10 mg, Oral, Daily, Jose Alfredo Chambers DO finasteride (Proscar) tablet 5 mg, 5 mg, Oral, Daily, Jose Alfredo Chambers DO, 5 mg at 02/13/231815 [START ON 02/14/2023] hydroCHLOROthiazide (HYDRODiuril) tablet 25 mg, 25 mg, Oral, q AM, Jose Alfredo Chambers DO [START ON 02/14/2023] Influenza Vac A&B SA Adj quadrivalent (Fluad) vaccine 0.5 mL, 0.5 mL, IntraMUSCular, Once, Jose Alfredo Chambers DO levothyroxine (Synthroid, Levoxyl) tablet 50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 and he may also have COPD superimposed on top of this. Our workup consisted of ordering/reviewing: Chest x-ray, left knee x-ray, Decadron and nebulizers for the COPD, Lasix for the bilateral lower extremity edema, metabolic work-up. To aid in management, I performed an independent interpretation of EKG(s) see below Xray(s) see below Blood work, see below. I also reviewed external records from patient's previous discharge summary from the hospital and last echocardiogram. The patient will be Admitted. The patient requires hospitalization due to Inability to care for self or adequate perform activities of daily living The patient needs Med/surg level of care and not appropriate for a lower acuity location of care due to inability to walk, not safe on his own at home - no family to assist him Patient is in agreement with this plan. Patient's care was impacted by chronic arthritis and stiffness in the left leg, patient walks with a walker, patient unable to ambulate at home. PROCEDURES: Unless otherwise noted below, none Procedures EKG: I read and interpreted this EKG. My interpretation can be found in the [employer] EKG system. EKG shows rate controlled atrial flutter with sawtooth wave appearance between QRS complexes. Left axis deviation. Cannot calculate ID interval. QRS prolonged, QTc within normal limits. No STEMI, no LVH, no SVT. Rhythm strip shows rate controlled atrial flutter. Previous EKG showed sinus rhythm. Interpreted by me. Metabolic panel shows no metabolic acidosis, good kidney function, glucose within normal limits Potassium is slightly hemolyzed but still within normal limits at 4.3 CK negative at 43. Argues against rhabdomyolysis Troponin negative BNP negative at 223. Despite significant bilateral lower extremity edema does not appear to be consistent with overt congestive heart failure Normal white blood cell count Mild anemia Thrombocytosis present Chest x-ray shows increased interstitial lung markings bilaterally which may reflect chronic lung changes but radiology cannot rule out superimposed edema or infectious process. No sizable pleural effusion or pneumonia or pneumothorax. Given bilateral lower extremity edema and the fact the patient used to be on Lasix and no longer has access to them, patient was started on IV Lasix here in the emergency department especially given suggestion of superimposed pulmonary edema. Interpreted by me. Left knee x-ray shows tricompartmental osteoarthrosis worst in the medial compartment and moderate in degree. Diffuse osteopenia. No fracture or dislocation. This may explain why the left knee constantly appears to give out on the patient and is very stiff and has reduced range of motion. It is not erythematous it is not hot to the touch, it is not locked in, it is not clinically consistent with a septic joint. X-ray interpreted by me. All labs and imaging reviewed. Patient is not septic or toxic. Left knee does not appear to be infected. Patient exhibits no indication for noninvasive positive pressure ventilation for the relatively mild pulmonary edema noted on chest x-ray. Given patient's inability to walk, patient will need rodney hospitalized for PT OT and possible rehab. Patient informed me that [facility] Mad[facility] and with [facility] orthopedics as they are considering a knee replacement for his left knee but this has been pushed back to April 2023. Patient may need to see orthopedics as part of his inpatient hospital stay. Patient informed of results of work-up and plan of care and agrees to admission. Hospitalist paged for admission Disposition: IMS admit to Dr. Carl CRITICAL CARE TIME FINAL IMPRESSION 1. Inability to walk 2. Chronic pain of left knee 3. Bilateral leg edema 4. Chronic obstructive pulmonary disease, unspecified COPD type (HCC) 5. Osteoarthritis of left knee, unspecified osteoarthritis type DISPOSITION Admit 02/13/2023 12:50:36 AM PATIENT REFERRED TO: No follow-up provider specified. DISCHARGE MEDICATIONS: New Prescriptions No medications on file (Comment: Please note this report has been produced using speech recognition software and may contain errors related to that system including errors in grammar, punctuation, and spelling, as well as words and phrases that may be inappropriate. If there are any questions or concerns please feel freeto contact the dictating provider for clarification.) Ramiro Baird MD (electronically signed) Emergency Medicine Provider Ramiro Baird MD 02/13/23 0239 [id number] Miscellaneous Notes* Telephone Encounter - Nguyen Senior MA - 02/05/2023 7:56 AM EDT Pharmacy faxed requesting the following refill Refill(s) Requested: Requested Prescriptions Pending Prescriptions Disp Refills levothyroxine (SYNTHROID) 50 mcg tablet [Pharmacy Med Name: LEVOTHYROXINE 50 MCG TABLET] 90 tablet 2 Sig: take 1 tablet by mouth every day ALLERGIES Allergen Reactions Allopurinol Unknown Doxycycline Unknown Erythromycin Unknown Minocycline Unknown Penicillins Unknown Sulfacetamide Unknown Tetracycline Unknown Levaquin [Levofloxa* Other: See Comments jittery Zocor [Simvastatin] Rash, Itching Ciprofloxacin Unknown Paxil [Paroxetine] Other: See Comments Fatigue Sulfa (Sulfonamide * Unknown (home) Last Office Visit Date: 10/23/2022 Last [facility] Visit: Visit date not found Future Appointment: Visit date not found The patients preferred pharmacy has been captured for this encounter? yes Request is for script(s) to be escript to pharmacy. Nguyen Senior MA [facility] History of Present illness Narrative* DARION Breen CNP - 01/30/2023 11:30 AM EDT Images from the original note were not included. DARION Gordon CNP 01/30/2023 at 11:51 AM Urology Office Visit PATIENT NAME: Doroteo Gong DATE OF : 1940 TODAY'S DATE: 01/30/2023 CHIEF COMPLAINT: Chief Complaint Patient presents with Other Patient here for voiding trial. Patient schwartz removed 2 weeks ago Subjective: Mr. Gong is a 82 y.o. male who presents to the office regarding urinary retention. He recently presented to [facility] 12/30/2022 for shortness of breath however during his hospital admission, he was noted to be in urinary retention. A indwelling schwartz catheter was placed with return of 850 ml of urine. He is currently on Alfuzosin 10 mg daily and finasteride 5 mg daily Today he reports that his catheter was removed about 2-3 weeks ago at [facility]. He only reports to having pain in his left leg. He believes he is voiding well. Patient presents today for schwartz removal and trial of voiding. Prior to AUR: Voids q 2 hrs. Nocturia x 3. Urgency: Yes. UUI: Sometimes. SHAILESH: Denies. Dysuria: Denies. Hematuria: Denies. Stream is weak-moderate. Review of Systems Constitutional: Negative for chills and fever. Gastrointestinal: Negative for abdominal pain. Genitourinary: Positive for frequency and urgency. Negative for difficulty urinating, dysuria, flank pain and hematuria. Past Medical History: Past Medical History: Diagnosis Date Arthritis knees hands Asthma Chronic pain GERD (gastroesophageal reflux disease) Hyperlipidemia Kidney stone 2012 Prostate disease Sleep apnea Thyroid disease Past Surgical History: No surgery found Medications Prior to Admission medications Medication Sig Start Date End Date Taking? Authorizing Provider acetaminophen (Tylenol 8 Hour) 650 MG ER tablet Take 650 mg by mouth every 8 hours as needed. Historical Provider, albuterol 108 (90 Base) MCG/ACT inhaler Inhale 2 puffs every 6 hours as needed. 12/13/21 Historical Provider, alfuzosin ER (Uroxatral) 10 MG 24 hr tablet Take 1 tablet (10 mg) by mouth daily. 10/16/22 Anson Arceo APRN - [place] bisacodyl (Fleet Bisacodyl) 10 MG/30ML enema Insert 10 mg into the rectum Once. Historical Provider, carboxymethylcellulose (Refresh Plus) 0.5 % ophthalmic solution Administer 1 drop into both eyes ifneeded for dry eyes. Historical Provider, cyanocobalamin (CVS Vitamin B-12) 1000 MCG tablet Take 1,000 mcg by mouth. Historical Provider, escitalopram (Lexapro) 10 MG tablet Take 10 mg by mouth daily. Historical Provider, finasteride (Proscar) 5 MG tablet Take 1 tablet (5 mg) by mouth daily. 10/16/22 Anson Arceo APRN - [facility] fluticasone (Flovent) 110 MCG/ACT inhaler Inhale 2 puffs in the morning and 2 puffs before bedtime.05/20/21 01/18/23 Historical Provider, hydroCHLOROthiazide (HYDRODiuril) 25 MG tablet Take 25 mg by mouth every morning. 03/05/21 Historical Provider, ipratropium (Atrovent) 0.06 % nasal spray Administer 2 sprays into affected nostril(s). 06/15/21 Historical Provider, levothyroxine (Synthroid, Levoxyl) 50 MCG tablet Take 50 mcg by mouth in the morning. 11/22/21 Historical Provider, magnesium hydroxide (Milk of Magnesia) 800 MG/5ML suspension Take by mouth Daily as needed for constipation. Historical Provider, omeprazole (PriLOSEC) [address] capsule Take 20 mg by mouth in the morning. 03/14/21 Historical Provider, ondansetron ODT (Zofran-ODT) 4 MG disintegrating tablet Take 4 mg by mouth every 8 hours as needed for nausea or vomiting. Historical Provider, pantoprazole (ProtoNix) 40 MG EC tablet TAKE 1 TABLET BY MOUTH ONCE DAILY. 30 MINUTES BEFORE EATING. 01/07/22 Historical Provider, polyethylene glycol, PEG, 3350 (Glycolax) 17 GM/SCOOP powder Take by mouth. Historical Provider, simvastatin (Zocor) 20 MG tablet Take 20 mg by mouth in the morning. 12/08/21 Historical Provider, Vitals: BP 98/53 Pulse 79 Ht 5' (1.524 m) Wt 165 lb (74.8 kg) BMI 32.22 kg/m Physical Exam Constitutional: General: He is not in acute distress. Appearance: He is not ill-appearing. Comments: Patient presents in wheelchair with aide Abdominal: General: Abdomen is flat. Palpations: Abdomen is soft. Tenderness: There is no right CVA tenderness or left CVA tenderness. Neurological: Mental Status: He is alert and oriented to person, place, and time. Labs: Hemoglobin Date Value Ref Range Status 01/04/2023 13.7 13.0 - 18.0 g/dL Final 01/03/2023 14.0 13.0 - 18.0 g/dL Final 01/02/2023 13.9 13.0 - 18.0 g/dL Final Hematocrit Date Value Ref Range Status 01/04/2023 40.7 40.0 - 52.0 % Final 01/03/2023 42.4 40.0 - 52.0 % Final 01/02/2023 41.1 40.0 - 52.0 % Final Lab Results Component Value Date CREATININE 0.67 01/04/2023 Procedure: PVR- 331 ml Impression/Plan Diagnoses and all orders for this visit: Hypertrophy of prostate with urinary obstruction - Creatinine, Serum; Future - US retroperitoneum; Future - finasteride (Proscar) 5 MG tablet; Take 1 tablet (5 mg) by mouth daily. - alfuzosin ER (Uroxatral) 10 MG 24 hr tablet; Take 1 tablet (10 mg) by mouth daily. - Here for hospital follow up - PVR 331 ml - Patient currently denies any pain or discomfort - Rx refilled for Alfuzosin 10mg and Finasteride 5 mg daily at this time - Order placed for creatinine, will call with results - Renal ultrasound ordered at this time, will call with results - The patient was instructed to call the office or go to the nearest ER if worsening symptoms such as fever > 101F, inability to urinate, intractable nausea or vomiting, or uncontrolled pain. The patient verbalizes understanding. - Follow up with results Follow Up: Follow up in about 6 months (around 08/01/2023), or if symptoms worsen or fail to improve, for PVR check. --Kimberley Mai CNP, APRN on 01/30/2023 at 11:51 AM An electronic signature was used to authenticate this note. documented in this [facility]10-05-2023 History of Present illness Narrative* Shazia Aguilar - 01/18/2023 8:50 AM EDT AGNESIUM hYDROXIDE * Jaylyn Ortiz, PAYROLL REPRESENTATIVE - AIRCRAFT LAUNCH AND REC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 - 01/18/2023 8:50 AM EDT Images from the original note were not included. [facility] [address] [facility] [id number] Dept: [phone] Dept Loc: [phone] Date of Service: 01/18/2023 Visit type: An Established patient Chief Complaint/Reason for Referral: Hospital Follow-up and Asthma SUBJECTIVE History of Present Illness: Doroteo Gong ( 1940) is a 82 y.o. male patient, with significant PMH of asthma, obstructive sleep apnea not on CPAP, nocturnal oxygen, interstitial lung disease, GERD being seen for hospital follow-up. He was admitted 12/30 to 01/04 for shortness of breath secondary to asthma exacerbation. He was treated with steroids and bronchodilators with improvement. His imaging was consistent with subpleural fibrosis bilateral, mild emphysema and enlarged pulmonary artery in a non-smoker. Alpha 1 antitrypsin was normal. He is here in a wheelchair today with no accompanying him, coming from [facility] where he is in rehab. He is alert, oriented x 3, reports his breathing is fine. He typically lives in his own home alone but has a lady that drives him to appointments and a nephew who also helps. He reports no coughing or wheezing and is not requiring oxygen today as he is 93% on room air. He does have oxygen at home for nighttime due to CPAP intolerance but has not used it at rehab. At rehab he reports being in a wheelchair 50% of the time he is working with therapy and unable to tell me if he has any shortness ofbreath. He is using Flovent at the rehab. He is a poor historian. OBJECTIVE MEDICAL HISTORY: Past Medical History: Diagnosis Date Arthritis knees hands Asthma Chronic pain GERD (gastroesophageal reflux disease) Hyperlipidemia Kidney stone 2012 Prostate disease Sleep apnea Thyroid disease SURGICAL HISTORY: Past Surgical History: Procedure Laterality Date APPENDECTOMY BACK SURGERY 2014 slipped disc CATARACT EXTRACTION CHOLECYSTECTOMY JOINT REPLACEMENT Right 2014 LITHOTRIPSY 3-4 times OTHER SURGICAL HISTORY hemorroid removed OTHER SURGICAL HISTORY Left 12/19/2017 stent placement, cystoscopy and pyelogram, Laser Lithotripsy SINUS SURGERY ALLERGIES: Allergies Allergen Reactions Allopurinol Unknown Erythromycin Unknown Penicillins Unknown Sulfa Antibiotics Unknown Pt does not know reaction Tetracyclines & Related Unknown Levofloxacin Other jittery Ciprofloxacin Unknown Paroxetine Other Fatigue MEDICATIONS: Current Outpatient Medications: acetaminophen (Tylenol 8 Hour) 650 MG ER tablet, Take 650 mg by mouth every 8 hours as needed., Disp: , Rfl: albuterol 108 (90 Base) MCG/ACT inhaler, Inhale 2 puffs every 6 hours as needed., Disp: , Rfl: alfuzosin ER (Uroxatral) 10 MG 24 hr tablet, Take 1 tablet (10 mg) by mouth daily., Disp: 90 tablet, Rfl: 3 cyanocobalamin (CVS Vitamin B-12) 1000 MCG tablet, Take 1,000 mcg by mouth., Disp: , Rfl: finasteride (Proscar) 5 MG tablet, Take 1 tablet (5 mg) by mouth daily., Disp: 90 tablet, Rfl: 3 fluticasone (Flovent) 110 MCG/ACT inhaler, Inhale 2 puffs in the morning and 2 puffs before bedtime., Disp: , Rfl: hydroCHLOROthiazide (HYDRODiuril) 25 MG tablet, Take 25 mg by mouth every morning., Disp: , Rfl: ipratropium (Atrovent) 0.06 % nasal spray, Administer 2 sprays into affected nostril(s)., Disp: , Rfl: levothyroxine (Synthroid, Levoxyl) 50 MCG tablet, Take 50 mcg by mouth in the morning., Disp: , Rfl: omeprazole (PriLOSEC) [address] capsule, Take 20 mg by mouth in the morning., Disp: , Rfl: pantoprazole (ProtoNix) 40 MG EC tablet, TAKE 1 TABLET BY MOUTH ONCE DAILY. 30 MINUTES BEFORE EATING., Disp: , Rfl: polyethylene glycol, PEG, 3350 (Glycolax) 17 GM/SCOOP powder, Take by mouth., Disp: , Rfl: simvastatin (Zocor) 20 MG tablet, Take 20 mg by mouth in the morning., Disp: , Rfl: SOCIAL HISTORY: Social History Tobacco Use Smoking status: Never Smokeless tobacco: Never Substance Use Topics Alcohol use: No FAMILY HISTORY: Family History Problem Relation Name Age of Onset Heart failure Mother Diabetes Mother REVIEW OF SYSTEMS: Review of Systems Constitutional: Positive for activity change and fatigue. HENT: Negative for congestion. Respiratory: Negative for cough, chest tightness, shortness of breath and wheezing. Cardiovascular: Negative for chest pain and leg swelling. Musculoskeletal: Positive for arthralgias, back pain and gait problem. Negative for myalgias. Skin: Negative for color change and rash. Psychiatric/Behavioral: The patient is not nervous/anxious. All other systems reviewed and are negative. VITAL SIGNS: Ht 5' (1.524 m) BMI 32.33 kg/m PHYSICAL EXAM: Physical Exam Vitals reviewed. Constitutional: General: He is not in acute distress. Appearance: He is obese. He is ill-appearing. HENT: Head: Normocephalic and atraumatic. Nose: Nose normal. Eyes: Pupils: Pupils are equal, round, and reactive to light. Cardiovascular: Rate and Rhythm: Normal rate and regular rhythm. Heart sounds: Normal heart sounds. No murmur heard. No friction rub. Pulmonary: Effort: Pulmonary effort is normal. No respiratory distress. Breath sounds: No stridor. No wheezing, rhonchi or rales. Comments: Diminished Musculoskeletal: Right lower leg: Edema present. Left lower leg: Edema present. Comments: +2 LE edema Skin: General: Skin is warm and dry. Capillary Refill: Capillary refill takes less than 2 seconds. Neurological: Mental Status: He is alert. Comments: Oriented x3, appears to have somewhat of a gaze/stare when speaking to him Psychiatric: Thought Content: Thought content normal. DATA REVIEWED: PFT's--01/2021 Units Pred PreDrug Pre%Pred Post Post%Pred %Change FVC L,btps 2.42 1.75 72. 1.92 79. 10. FEV1 L,btps 1.64 1.31 80. 1.45 88. 10. FEV1/FVC (%) % 71. 75. 105. 75. 106. 0. CWU47-34% L/s 1.06 0.98 93. 1.20 114. 23. FEFmax L/s 5.01 4.95 99. 5.40 108. 9. MVV in,btps 77.69 49.76 64. Lung Volumes (Body Box) Units Pred PreDrug Pre%Pred TLC L,btps 4.97 VC L,btps 2.42 IC L,btps 1.77 FRC L,btps 3.21 ERV L,btps 0.66 RV L,btps 2.55 RV/TLC (%) % 51. VTG L,btps RAW H2O/L/s 1.44 SGaw cmH2O/L 0.22 Diffusion (DLCO) Units Pred PreDrug Pre%Pred DLCO ml/min/mmHg,stpd 19.64 11.41 58. DLCOHb ml/min/mmHg,stpd 19.64 11.41 58. VAsb L,btps 4.86 2.63 54. D/VAsb ml/min/mmHg/L,stpd 4.04 4.34 107. D/VAsbHb ml/min/mmHg/L,stpd 4.04 4.34 107. VInsp L 2.02 Hgb g/dl 14.60 COHb % Nitrogen Washout Units Pred PreDrug Pre%Pred TLC L,btps 4.97 4.14 83. VC L,btps 2.42 2.34 97. FRC L,btps 3.21 2.16 67. IC L,btps 1.77 1.98 112. ERV L,btps 0.66 0.36 54. RV L,btps 2.55 1.80 71. RV/TLC (%) % 51. 43. 85. PHYSICIAN INTERPRETATION Mild restrictive ventilatory impairment with moderately decrease in gas Exchange may be compatible with the Dx of restrictive lung disease Total lung Capacity is normal Border line response to BD therapy CT chest (07/07/22) IMPRESSION: 1. COPD is evidence of chronic pulmonary hypertension. 2. 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 3. No pathologic pulmonary nodules. ECHO 09/2020 1. Left ventricle: Systolic function is normal by visual assessment. The estimated ejection fraction is 55%. There are no regional wall motion abnormalities. Doppler parameters are consistent with abnormal left ventricular relaxation (grade 1 diastolic dysfunction). 2. Right ventricle: The cavity size is normal. Systolic function is mildly decreased by visual assessment. Right ventricular systolic pressure is within the normal range. The RV pressure during systole by Doppler is 29 mm Hg. 3. Right atrium: Central venous pressure (est): 3 mm Hg. 4. No significant valve disease. ASSESSMENT and PLAN Acute exacerbation of COPD/Asthma -Resolved. He has no respiratory complaints today. -His Prior PFTs were more consistent with restriction but he clinically improved with steroids and bronchodilators. -He will continue Flovent and prn albuterol. -Holding off on any additional testing for now due to his debility and cognitive deficits? and willtreat symptoms Emphysema in non-smoker -Mild findings on CT chest. His Alpha-1 was normal. -Monitor oxygenation. 93% today on RA. Keep SPO2 88% or greater. Restrictive lung disease/ILD -Chronic interstitial changes on imaging. Consider this is from chronic aspiration?however MBS 2021was negative for aspiration. Needs ongoing aspiration precautions. Obesity/RICKY, intolerant of CPAP -continue nocturnal O2 Suspected Pulmonary hypertension -Evidence of enlarged PA on imaging. -ECHO from 2020 RV pressure was 29 FOLLOW UP: One month to ensure stability of breathing. DARION Romero CNP Pulmonary & Sleep Medicine documented in this [facility]10-05-2023 Instructions* Patient Instructions* Shazia Aguilar - 01/18/2023 8:50 AM EDT YOUR APPOINTMENT TODAY WAS WITH THE [facility], COPD CLINIC, PULMONARY AND SLEEP MEDICINE OFFICE. PLEASE CALL OUR OFFICE AT [phone] for our [place] office location or [phone] for our [place] location, IF YOU HAVE NOT RECEIVED YOUR TEST RESULTS 7 DAYS AFTER TESTING IS COMPLETED. PLEASE REMEMBER TO REQUEST REFILLS AT YOUR OFFICE VISITS. PHONE/FAX REQUESTS REQUIRE 48-72 HOURS FOR RESPONSE. A FRIENDLY REMINDER COPAYS ARE DUE AT TIME OF SERVICE. THANK YOU. Our Patients Are Important! We want to improve and you can help. After your visit we want you to feel: Listened to, Respected and have your health care explained. You may receive a survey asking you about your visit. Please complete the survey. We will use your feedback to make improvements. COVID-19 VACCINATION INFORMATION: PH. [phone] [email or web address] [facility] Central Scheduling [phone] [facility] Sleep Scheduling [phone] documented in this [facility]09-21-2023 Miscellaneous Notes* Care Coordination - Unknown Case Management - 01/04/2023 11:37 AM EDT Patient Choice Patient Name: DOROTEO GONG Date of : 1940 All Providers Sent [facility] Phone: [phone] Address: [address] [place] [address] * Care Coordination - Tho Echevarria - 01/04/2023 11:36 AM EDT Discharge med list transmitted to [facility] via [facility] per TCC request. 7000 was entered into [employer] for the SNF- Facility is aware. * Care Coordination - YURI Mccarthy - 01/04/2023 9:54 AM EDT Transportation arranged through [facility] by wheelchair van set for 1 pm. Notified RN and TCC of this via [employer] secure chat. Will update patient at bedside. SW remains available if any other needs or concerns arise. * Care Coordination - Tho Echevarria - 01/03/2023 11:47 AM EDT [facility]. Await review and response regarding ability to accept. TCC notified. * Care Coordination - Kaitlin Ibarra RN - 01/03/2023 9:13 AM EDT Images from the original note were not included. Care Management Progress Note Patient remains on 4S s/p SOB. Clinical updates: Has now developed urinary retention resulting in Schwartz catheter placement and Urology Consult Discharge plan: SNF vs Home with [facility] Discharge obstacles: Awaiting Urology recommendations, awaiting family decision on SNF TCC will continue to follow. Discharge Milestones and Delays Expected Date/Time: 01/03/[address] discharge order Complete med reconciliation Case mgmt discharge readiness Clinical Stability Diagnsotic Workup Expected Discharge History Expected Date/Time Set By Reviewed At 01/03/2023 YURI Mccarthy 01/02/2023 9:47 AM PT/OT 01/03/2023 YURI Mccarthy 01/01/2023 10:06 AM 01/03/2023 Tara Frazier MD 12/31/2022 2:38 AM 01/02/2023 Tara Frazier MD 12/31/2022 1:25 AM Length of Stay (Days): 3 GMLOS: 2.8 * Significant Event - Jeanie Doyle MD - 01/03/2023 6:04 AM EDT Recurrent urinary retention overnight requiring multiple straight cath. Schwartz placed given recurrent retention. He is already on finasteride and uroxatral. UA only mild WBC, no bacteria, will obtain culture. Will also place on bowel regimen. Urology consulted for further recommendations. * Care Coordination - Ian Boyer RN - 01/02/2023 2:36 PM EDT Spoke with patient at bedside about therapy recommendations of snf . Did provide with snf list. Patient stated did they tell you I [facility]. States he will discuss with his nephew Harshil. Did call and speak with his nephew Harshil [phone] and he is in agreement of facility based therapy.. He stated he is hoping he and some other family members will be able to convince patient to go to facility for therapy for a few weeks upon discharge. Did provide with covering TCC contact information and requested that they contact TCC with choices should patient agree to go snf. Home care following. Should patient not agree to go to snf, Will need school social worker added to home care ser vices.. * Care Coordination - Ian Boyer RN - 01/02/2023 8:51 AM EDT Images from the original note were not included. Care Management Progress Note US of lower ext negative for dvt. Pt/ot evals are ordered and pending. On po prednisone. Requiring o2 at 2 liters. Wears prn at home. . May need snf at discharge. Awaiting therapy evals and recommendations. Tentative discharge plan snf vs hhc. Discharge Milestones and Delays Expected Date/Time: 01/03/[address] discharge order Complete med reconciliation Case mgmt discharge readiness Clinical Stability Diagnsotic Workup Expected Discharge History Expected Date/Time Set By Reviewed At 01/03/2023 YURI Mccarthy 01/01/2023 10:06 AM 01/03/2023 Tara Frazier MD 12/31/2022 2:38 AM 01/02/2023 Tara Frazier MD 12/31/2022 1:25 AM Length of Stay (Days): 2 GMLOS: 2.8 .. * Care Coordination - Kaitlin Ibarra RN - 01/01/2023 1:09 PM EDT Images from the original note were not included. Care Management Progress Note Patient remains on 4S for SOB Clinical updates: Remains on O2, patient is admittedly non-compliant with PAP at home. Discharge plan: Already active with HHC, [facility] is checking to see which one Discharge obstacles: Awaiting clinical stability TCC will continue to follow. Discharge Milestones and Delays Expected Date/Time: 01/03/[address] discharge order Complete med reconciliation Case mgmt discharge readiness Clinical Stability Diagnsotic Workup Expected Discharge History Expected Date/Time Set By Reviewed At 01/03/2023 YURI Mccarthy 01/01/2023 10:06 AM 01/03/2023 Tara Frazier MD 12/31/2022 2:38 AM 01/02/2023 Tara Frazier MD 12/31/2022 1:25 AM Length of Stay (Days): 1 GMLOS: No GMLOS Documented * Home Care - Oumou Willams RN - 01/01/2023 11:33 AM EDT Patient is currently active with [facility]. The patients current certification period will on unknown. . The patient is currently receiving PT. services through the agency. Will follow andupdate [facility] of discharge plans in [facility]. Medical Scientist to continue to follow. * Care Coordination - Ian Boyer RN - 12/31/2022 1:42 PM EDT Care Managment Initial Assessment Date: 12/31/2022 Patient Name: Doroteo Gong : 1940 Patient Information Source of Information: Patient Name/Contact Information: HARSHIL MURGUIA NEPHSTEVENSON [phone] Cognition/Language: WFL - Within Functional Limits Permission given to speak with patient bilingual sales representative/caregiver as indicated: Yes Confirmation of Payer with patient/family: Yes Payer Name: MEDICARE AND MMO [place]: Yes Confirmation of Primary Care Physician: Confirmed PCP Name: DR. MADERA Seen in last 2 years?: Yes Primary Caregiver: Self If assistance needed, confirmed caregiver ready, willing and able to care for patient at discharge:Yes Confirmed with: PER PATIENT HIS NEPHEW HARSHIL Living Arrangements Current Residence: House Number of Floors 1 Number of Entry Steps: 5 or more Bed/Bath Levels: Both first floor Facility: Facility Name: [facility] Plan to Return: Yes Lives with: Alone Support Systems: Family members (NEPHEW) Activities of Daily Living Ambulation: Independent (CANE AND FWW) Bathing/Dressing: Independent Elimination/Continence/Toileting: Independent Feeding: Independent Who Assists with Activities of Daily Living: Instrumental Activities of Daily Living Prescription Coverage: Yes [facility] Used[facility] Medication Management: Prescription pick-up Who assists with medication securing and setup?: HAS LADY FRIEND OR NEPHEW [employer] RECRUITER Transportation/Shopping: Assistance Provider Transportation/Shopping Assistance Provider Name: NEPHEW OR HIS LADY FRIEND Transportation Mode: Car Needs Assistance with Transportation at Discharge: No (NEPHEW) Meal Preparation: Independent Laundry/Cleaning: Assistance Provider Laundry/Cleaning Assistance Provider Name: STATES IS WORKING ON GETTING SOMEONE Finances/Bill Paying: Independent Communication: Independent Types of Care Services/Equipment Utilized Care Services: Skilled Home Health Services Care Services Provider Name: PATIENT IS UNSURE OF AGENCY Dialysis Type: NA Durable Medical Equipment: Cane, Walker, Shower Seat, Nebulizer, Oxygen (Continuous or prn) Oxygen Flow Rate: 2 LITERS CONT AT HS AND PRN DURING THE DAY DME Provider: YUE Patient's Goal/Discharge Plan Patient expects to be discharged to: HOME WITH [facility] Discharge Planning Actions: Continue to follow Patient's Choice Rights and [employer] and Collaborative Relationships Disclosed as Indicated for Post-Acute Care: NA Interdisciplinary Team Engagement: Home Health Care, PT/OT Social Work Referral for: Additional Information: Inpatient status from home with SOB. Admitted pulmonology consulted. Cxr clear. Started on aerosols, US of lower exts ordered and pending, pt/ot. Discharge preparation checklist reviewed with patient. He lives at home alone. He uses cane or FWW to get around at home. States he is independent in hisadls. Per nursing, when he was admitted they did have to clean up dry stool off of his skin. Stateshas nephew and lady friend that assist with obtaining his meds and driving tasks. States he is in the middle of interviewing people for assistance with household tasks and providing care. States he called his pcp and requested some home health care,but he is not certain which agency it is . Did review care everywhere and appears referral was made to [facility] [phone]. Updated home care consultant of this in [facility]. Did request that aide services and school social worker be added if not already active . Wears oxygen at 2 liters at hs and has nebulizer machine that he uses albuterol aerosols with if needed. Says he has cpap at home, but it is in the attic and he has not worn it for deca daria. Will need to monitor for therapy and oxygen needs upon discharge. Tentative discharge plan is home with hhc vs snf when medically stable. . Ian Boyer RN * Care Plan - Chaparrita Lr RN - 12/31/2022 6:41 AM EDT Problem: Knowledge Deficit Goal: Patient/family/caregiver demonstrates understanding of disease process, treatment plan, medications, and discharge instructions Outcome: Progressing Flowsheets (Taken 12/31/2022 0641) Patient/family/caregiver demonstrates understanding of disease process, treatment plan, medications, and discharge instructions: Complete learning assessment and assess knowledge base Provide teaching via preferred learning methods Provide teaching at level of understanding The patient is Moderately Stable - Low risk of patient condition declining or worsening The patient's goals for the shift include rest The clinical goals for the shift include safety Over the shift, the patient did not make progress toward the following goals. Barriers to progression include documented in this encounterSHolzer Health [id number] Note* Care Coordination - Unknown Case Management - 01/04/2023 11:37 AM EDT Patient Choice Patient Name: DOROTEO GONG Date of : 1940 All Providers Sent Referral Name: [facility] Phone: [phone] Address: [address] [place], [place] [id number] [id number]* Care Coordination - Unknown Case Management - 01/04/2023 11:37 AM EDT Patient Choice Patient Name: DOROTEO GONG Date of : 1940 All Providers Sent Referral Name: [facility] Phone: [phone] Address: [address] [place], [place] [id number] [id number] Note* Care Coordination - Tho Echevarria - 01/04/2023 11:36 AM EDT Discharge med list transmitted to [facility] via RegisterPatient per TCC request. [id number] was entered into [employer] for the [facility]- Facility is aware. [facility] [id number] Note* Care Coordination - Tho Echevarria - 01/04/2023 11:36 AM EDT Discharge med list transmitted to [facility] via Careport per TCC request. [id number] was entered into [employer] [facility] is aware. [facility] [id number] History of Present illness Narrative* Anni Vernon, PAYROLL REPRESENTATIVE - AIRCRA[employer] LAUNCH AND REC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 - 01/04/2023 11:26 AM EDT Images from the original note were not included. [facility] Urology Inpatient Progress Note 01/04/2023 at 11:26 AM PATIENT NAME: Doroteo Gong DATE OF : 1940 ADMISSION DATE: 12/30/2022 10:19 PM Room#: B4-467/B4-467 A Subjective: Interval History: No overnight issues. Schwartz catheter patent draining clear yellow urine. Patient resting comfortably. No distress noted. WBC 12.2-downtrending. Creatinine 0.67, GFR >90. Renal ultrasound-negative for hydronephrosis. Left 4 mm renal calculi, enlarged prostate. Denies chest pain, sob, abdominal pain, nausea, vomiting, diarrhea, constipation, fevers, or chills. Past Medical History: Past Medical History: Diagnosis Date Arthritis knees hands Asthma Chronic pain GERD (gastroesophageal reflux disease) Hyperlipidemia Kidney stone 2012 Prostate disease Sleep apnea Thyroid disease Objective: Vitals: BP 131/74 (BP Location: Left arm, Patient Position: Lying) Pulse 78 Temp 36.4 C (97.6 F) (Temporal) Resp 18 Ht 1.524 m (5') Wt 75.1 kg (165 lb 9.1 oz) SpO2 97% BMI 32.33 kg/m Physical Exam Constitutional: Appearance: Normal appearance. Eyes: Pupils: Pupils are equal, round, and reactive to light. Cardiovascular: Rate and Rhythm: Normal rate. Pulmonary: Effort: Pulmonary effort is normal. Abdominal: General: Abdomen is flat. Palpations: Abdomen is soft. Genitourinary: Comments: 16 German Schwartz catheter patent draining clear yellow urine. Neurological: General: No focal deficit present. Mental Status: He is alert and oriented to person, place, and time. LABS: CBC: Recent Labs 01/02/23 0231 01/03/23 0110 01/04/23 0154 WBC 20.3* 17.0* 12.2* HGB 13.9 14.0 13.7 HCT 41.1 42.4 40.7 PLT 437 429 398 No results found for: LACTATE, PROCAL BMP: Recent Labs 01/02/23 0231 01/03/23 0110 01/04/23 0154 NA 138 135 135 K 4.5 4.0 4.2 CL 104 103 100 CO2 24 26 27 BUN 22* 29* 27* CREATININE 0.82 0.84 0.67 GLUCOSE 161* 100 114* CALCIUM 10.0 9.8 9.3 ANIONGAP 10 5 8 PT/INR: No results for input(s): PROTIME, INR in the last 72 hours. Urine culture: Lab Results Component Value Date URINECX 01/02/2023 Insignificant growth based on current clinical guidelines COVID-19 PCR: No results for input(s): COVID19 in the last 72 hours. Medications: Current Facility-Administered Medications: acetaminophen (Tylenol) tablet 650 mg, 650 mg, Oral, q6h PRN, Jonathan Nickerson MD, 650 mg at 01/03/23 09 [Held by provider] alfuzosin ER (Uroxatral) 24 hr tablet 10 mg, 10 mg, Oral, Daily, Jonathan Nickerson MD atorvastatin (Lipitor) tablet 10 mg, 10 mg, Oral, Daily, Jonathan Nickerson MD, 10 mg at 01/04/23944 cyanocobalamin (Vitamin B-12) tablet 1,000 mcg, 1,000 mcg, Oral, Daily, Jonathan Nickerson MD, 1,000 mcgat 01/04/23944 enoxaparin (Lovenox) syringe 40 mg, 40 mg, SubCUTAneous, Daily, Jonathan Nickerson MD, 40 mg at finasteride (Proscar) tablet 5 mg, 5 mg, Oral, Daily, Jonathan Nickerson MD, 5 mg at 01/04/23944 fluticasone (Flonase) nasal spray 2 spray, 2 spray, Each Nostril, Daily, Ana Blake APRN, 2 sprayat 01/04/23946 fluticasone (Flovent) 110 MCG/ACT inhaler 2 puff, 2 puff, Inhalation, BID, Jonathan Nickerson MD, 2 puffat 01/04/23946 hydroCHLOROthiazide (HYDRODiuril) tablet 25 mg, 25 mg, Oral, q AM, Jonathan Nickerson MD, 25 mg at 01/04/23 0945 HYDROcodone-acetaminophen (Floyd) 5-325 MG per tablet 1 tablet, 1 tablet, Oral, q6h PRN, Unique Encinas MD, 1 tablet at 01/02/23 0058 Influenza Vac A&B SA Adj quadrivalent (Fluad) vaccine 0.5 mL, 0.5 mL, IntraMUSCular, Once, Jonathan Nickerson MD ipratropium-albuterol (Duo-Neb) 0.5-2.5 mg/3 mL nebulizer solution 3 mL, 1 ampule, Nebulization, TID, Unique Encinas MD, 3 mL at 01/04/23 0918 levothyroxine (Synthroid, Levoxyl) tablet 50 mcg, 50 mcg, Oral, Daily, Jonathan Nickerson MD, 50 mcg at 01/04/23 0600 loperamide (Imodium) capsule 2 mg, 2 mg, Oral, 4x daily PRN, Unique Encinas MD, 2 mg at 12/31/22 1629 Mucinex DM 30-600 MG tablet 1 tablet, 1 tablet, Oral, q12h, Jonathan Nickerson MD, 1 tablet at 01/04/23 0945 ondansetron ODT (Zofran-ODT) disintegrating tablet 4 mg, 4 mg, Oral, q8h PRN OR ondansetron (Zofran) injection 4 mg, 4 mg, IntraVENous, q6h PRN, Jonathan Nickerson MD pantoprazole (ProtoNix) EC tablet 40 mg, 40 mg, Oral, qAM AC, Jonathan Nickerson MD, 40 mg at 01/04/23 0600 pneumococcal polysaccharide (Pneumovax 23) 25 MCG/0.5ML vaccine 0.5 mL, 0.5 mL, IntraMUSCular, Prior to discharge, Jonathan Nickerson MD polyethylene glycol (PEG) 3350 (Miralax) packet 17 g, 17 g, Oral, Daily PRN, Jonathan Nickerson MD, 17 gat 01/03/23 211 polyethylene glycol (PEG) 3350 (Miralax) packet 17 g, 17 g, Oral, Daily, Jeanie Doyle MD, 17 g at 01/04/23 0945 predniSONE (Deltasone) tablet 40 mg, 40 mg, Oral, Daily, Jonathan Nickerson MD, 40 mg at 01/04/23 0945 senna-docusate sodium (Senokot-S) 8.6-50 MG tablet 2 tablet, 2 tablet, Oral, BID, Jeanie Doyle MD, 2 tablet at 01/04/23 0945 sodium chloride 0.9 % infusion, 5-250 mL/hr, IntraVENous, PRN, Jonathan Nickerson MD sodium chloride 0.9% (NS) flush 10 mL, 10 mL, IntraVENous, 2 times per day, Jonathan Nickerson MD, 10 mLat 01/04/23 0949 sodium chloride 0.9% (NS) flush 10 mL, 10 mL, IntraVENous, PRN, Jonathan Nickerson MD tamsulosin (Flomax) 24 hr capsule 0.4 mg, 0.4 mg, Oral, Daily, Jonathan Nickerson MD, 0.4 mg at Imaging: [facility] Name[facility]ONG : 1940 [id number] Exam Date/Time: 01/03/2023 12:25 Procedure: US RETROPERITONEAL Ordering Provider: VERNON MELISSA Reason For Exam: urinary retention Exam type: Ultrasound Renal Complete EXAM DATE AND TIME: 01/03/2023 12:25 PM EDT INDICATION: 82 years Male with urinary retention COMPARISON: Retroperitoneal ultrasound from 06/30/2021. Technique: Grayscale sonographic images were obtained of the kidneys and bladder. Color Doppler wasutilized. FINDINGS: RIGHT KIDNEY: Size: 9.3 cm in craniocaudal dimension Echogenicity: Normal Parenchymal thickness: Normal Contour: Smooth Pelvicalyceal dilatation: Stable moderate fullness of the right extrarenal pelvis. No caliectasis. Calculus: none Mass: none Cyst: none LEFT KIDNEY: Size: 10.9 cm in craniocaudal dimension Echogenicity: Normal Parenchymal thickness: Normal Contour: Smooth Pelvicalyceal dilatation: Stable mild fullness of the left extrarenal pelvis. No caliectasis. Calculus: Nonobstructing left renal calculi, measuring up to 4 mm. Mass: none Cyst: none Bladder: Incompletely distended. Schwartz catheter within the bladder lumen. No definite bladder filling defect. The prostate bulges into the base of the urinary bladder. Prostate measures 5.3 x 3.8 x 3.9 cm. IMPRESSION: No hydronephrosis. Left-sided nephrolithiasis. Enlarged prostate. Assessment PT is an 82 year old male who presented to the hospital for a complaint of shortness of breath and poor mobility Urology consulted for urinary Retention Plan Urinary Retention Maintain schwartz catheter to straight drain 16F Straight Keep catheter upon discharge given high output 850cc output with placement Renal US Negative for hydronephrosis. Prostamegaly Left nonobstructing renal calculi Continue to trend labs Continue Proscar and Uroxatrol May transition Uroxatrol to Flomax 0.4mg No acute surgical intervention at this time. Follow up after discharge 2-3 weeks for voiding trial with KEREN Given poor mobility and high residuals in past if patient should fail recommend chronic catheter. If pt proceeds with chronic catheter as outpatient Discontinue flomax and continue proscar. Urology to sign off at this time Thank you for this consultation and allow for participation in this patient's care. Please call /page with questions concerns or changes in patient's urologic status. Anni Vernon APRN [facility] [place] Urology Office: [phone] An electronic signature was used to authenticate this note. Please note that portions of this chart were dictated using [employer] electronic voice recognition software. It is possible that typos and/or omissions and/or substitutions of words and/or phrases may exist, which may alter the intended meaning of the dictating provider. On this date 01/04/2023 I have spent 35 minutes [id number] time, reviewing previous notes, test results and discussing the diagnosis and importance of compliance with the treatment plan as well as documenting on the day of the visit. * Jonathan Nickerson MD - 01/03/2023 2:26 PM EDT Hospitalist Progress Note 01/03/[id number]: Please secure chat me for patient care issues. [phone]: Please secure chat [facility] Hospitalist for any issues. Subjective: Admit Date: 12/30/2022 PCP: ROOPA MADERA MD Room#: [id number]/C1-687 A Interval History: Seen and examined. Schwartz placed overnight . Leucocytosis improved. UA normal Was not getting proscar- start flomax while in house Has placement ready, DC in am Adult diet Regular @HRXF1LSHKMC@ 24HR INTAKE/OUTPUT: Intake/Output Summary (Last 24 hours) at 01/03/2023 1426 Last data filed at 01/03/2023 0854 Gross per 24 hour Intake 10 ml Output 2150 ml Net -2140 ml Past Medical History: Past Medical History: Diagnosis Date Arthritis knees hands Asthma Chronic pain GERD (gastroesophageal reflux disease) Hyperlipidemia Kidney stone 2012 Prostate disease Sleep apnea Thyroid disease LABS: CBC: Recent Labs 01/01/23 0126 01/02/23 0231 01/03/23 0110 WBC 6.8 20.3* 17.0* RBC 4.66 4.50 4.59 HGB 14.4 13.9 14.0 HCT 42.6 41.1 42.4 MCV 91.5 91.4 92.3 RDW 13.7 13.8 13.4 PLT 423 437 429 BMP: Recent Labs 01/01/23 0126 01/02/23 0231 01/03/23 0110 NA 137 138 135 K 4.7 4.5 4.0 CL 103 104 103 CO2 22 24 26 BUN 12 22* 29* CREATININE 0.71 0.82 0.84 GLUCOSE 149* 161* 100 CALCIUM 9.9 10.0 9.8 ANIONGAP 12 10 5 LIVER PROFILE: Recent Labs 01/01/23 0126 01/02/23 0231 01/03/23 0110 AST 29 21 28 ALT 17 14 14 BILITOT 0.5 0.2 0.6 ALKPHOS 48 50 49 PROT 7.1 6.8 6.5 PT/INR: No results for input(s): PROTIME, INR in the last 72 hours. CARDIAC ENZYMES: No results for input(s): TROPONINI in the last 72 hours. Procalcitonin: No results found for: PROCAL COVID-19 PCR: No results for input(s): COVID19 in the last 72 hours. Objective: Vitals: BP 119/70 Pulse 85 Temp 36.1 C (97 F) (Temporal) Resp 18 Ht 5' (1.524 m) Wt 165 lb 9.1 oz (75.1 kg) SpO2 95% BMI 32.33 kg/m Pulse Ox: SpO2 Av.8 % Min: 95 % Max: 97 % Physical Exam Constitutional: Appearance: Normal appearance. Cardiovascular: Rate and Rhythm: Normal rate and regular rhythm. Heart sounds: Normal heart sounds. Pulmonary: Effort: Pulmonary effort is normal. Breath sounds: Normal breath sounds. Abdominal: General: Bowel sounds are normal. Palpations: Abdomen is soft. Genitourinary: Comments: Schwartz in place Musculoskeletal: Right lower leg: Edema present. Left lower leg: Edema present. Comments: Trace edema Neurological: Mental Status: He is alert. Psychiatric: Mood and Affect: Mood normal. Medications: [Held by provider] alfuzosin ER, 10 mg, Oral, Daily atorvastatin, 10 mg, Oral, Daily cyanocobalamin, 1,000 mcg, Oral, Daily enoxaparin, 40 mg, SubCUTAneous, Daily finasteride, 5 mg, Oral, Daily fluticasone, 2 spray, Each Nostril, Daily fluticasone, 2 puff, Inhalation, BID hydroCHLOROthiazide, 25 mg, Oral, q AM influenza, 0.5 mL, IntraMUSCular, Once ipratropium-albuterol, 1 ampule, Nebulization, TID levothyroxine, 50 mcg, Oral, Daily Mucinex DM, 1 tablet, Oral, q12h pantoprazole, 40 mg, Oral, qAM AC polyethylene glycol (PEG) 3350, 17 g, Oral, Daily predniSONE, 40 mg, Oral, Daily senna-docusate sodium, 2 tablet, Oral, BID sodium chloride 0.9%, 10 mL, IntraVENous, 2 times per day tamsulosin, 0.4 mg, Oral, Daily Assessment Dyspnea COPD Pulmonary fibrosis RICKY, non compliant HTN Debility and weakness Leukocytosis - likely from steroid Urinary retention Medical Decision Making Seen and examined. Schwartz placed Urology consult appreciated. Flomax Plan for DC in am. -am labs, replace lytes prn -increase activity -DVT prophylaxis: [] Lovenox [] Heparin [] SCDs [x] Encourage ambulation [] Already on Anticoagulation Anticipated Discharge - Date - tomorrow - Location - - Pending the following - clinical improvement Total time spent (which include face to face and non face to face encounters) : 35 minutes Toxic drug monitoring/narrow therapeutic index drug monitoring : # Drug name : # Route administered : # Method of monitoring : Extended Emergency Contact Information Primary Emergency Contact: Harshil Murguia Mobile Relation: Relative Jonathan Nickerson MD Division of Hospitalist Medicine [facility] PAGER: Epic chat * Adele Mathew, PT - 01/02/2023 11:56 AM EDT Physical Therapy Facility/Department: [address] Physical Therapy Initial Evaluation NAME: Doroteo Gong : 1940 Date of Service: 01/02/2023 Discharge Recommendations: Intermediate Facility PT Equipment Recommendations Other: TBD at next level of care Assessment Requires PT Follow-Up: Yes Assessment: Pt presents with decreased functional mobility, decreased strength, decreased safety awareness, decreased endurance and impaired balance. Pt has decreased standing balance, poor activity tolerance, decreased safety awareness and weakness requiring physical assist of 1 person in order tosafely complete minimal OOB mobility placing him at a high risk of falling. Pt could benefit from skilled PT in order to address his decreased functional mobility, strength, balance and safety. Performance Deficits/Impairments: Decreased functional mobility , Decreased strength, Decreased safe awareness, Decreased endurance, Decreased balance, Decreased posture Decision Making: Medium Complexity History: Pt admitted with SOB, weakness and difficulty ambulating. Exam: AM-PAC Clinical Presentation: Pt admitted with SOB, weakness and difficulty ambulating. Pt has medical history as listed below that that contributes to his clinical presentation. At baseline patient is functionally independent with a cane or FWW. Currently patient is unsafe to return home secondary to hisincreased need for assist and fall risks with mobility. Activity Tolerance Activity Tolerance: Patient limited by fatigue, Patient limited by endurance Patient Diagnosis(es): The primary encounter diagnosis was Shortness of breath. A diagnosis of Edema leg was also pertinent to this visit. has a past medical history of Arthritis, Asthma, Chronic pain, GERD (gastroesophageal reflux disease), Hyperlipidemia, Kidney stone (2012), Prostate disease, Sleep apnea, and Thyroid disease. has a past surgical history that includes Lithotripsy; Other surgical history; Back surgery (2013);Other surgical history (Left, 12/19/2017); Sinus surgery; Appendectomy; Cholecystectomy; Joint replacement (Right, 2014); and Cataract extraction. Restrictions Restrictions/Precautions Restrictions/Precautions: General Precautions, Fall Risk Required Braces or Orthoses?: No Vision/Hearing Vision: Within Functional Limits Hearing: Functional/adequate for paticipation in therapy Cognition/Orientation Attention Span: Attends with cues to redirect, Difficulty dividing attention Safety Judgement: Decreased awareness of need for assistance, Decreased awareness of need for safety Problem Solving: Decreased awareness of errors Sequencing: Requires cues for some Overall Orientation Status: Within Functional Limits Subjective General Chart Reviewed: Yes Patient Assessed for Rehabilitation Services: Yes Family / Caregiver Present: No General Comment Comments: Per RN patient okay for therapy. Co-eval with OT. Subjective Subjective: Pt pleasant and agreeable to therapy. Pt verbose and tangential. Patient Stated Goal: Patient states he wants to get stronger and get home. Pain Assessment Pain Assessment: No/denies pain Social/Functional History Social/Functional History Lives With: Alone Type of Home: House Home Layout: Two level, Able to Live on Main level with bedroom/bathroom Home Access: Stairs to enter with rails Entrance Stairs - Number of Steps: 5 Bathroom Shower/Tub: Tub/Shower unit Bathroom Toilet: Standard Bathroom Equipment: Grab bars in shower, Shower chair, Grab bars around toilet Home Equipment: Cane, Rolling walker ADL Assistance: Independent Homemaking Assistance: Independent Homemaking Responsibilities: Yes Ambulation Assistance: Independent With device?: Yes Device: straight cane, rolling walker Transfer Assistance: Independent Active Cofounder: No Mode of Transportation: Friends Objective Observation/Palpation Posture: Fair Observation: R lateral lean in supine - not noted in sitting, 2L O2 intact, tele intact, external cath intact Gross Assessment: Yes AROM: Within functional limits PROM: Within functional limits Strength: Grossly decreased, non-functional Coordination: Within functional limits Tone: Normal Sensation: Intact Bed mobility Supine to Sit: Moderate assistance (modA for B LE management and significant use of bed rails to upright trunk) Sit to Supine: (NT patient sitting EOB end of session) Scooting: Moderate assistance (to EOB) Comment: Denies dizziness with positional changes. Okay to leave patient sitting EOB end of sessionper RN. Transfers Sit to Stand: Moderate Assistance (to FWW from EOB) Stand to sit: Moderate Assistance Lateral Transfers: Moderate Assistance (with FWW for lateral stepping ~3 steps along EOB with B LE posting) Comment: Denies dizziness on initial stance. Significant B LE posting and flexed posture throughoutall standing tasks. Ambulation Ambulation: No (secondary to safety concerns with rapid fatigue and need for B LE posting for support) Balance Posture: Fair Sitting - Static: Fair, + Sitting - Dynamic: Fair Standing - Static: Poor, + Standing - Dynamic: Poor Plan # of visits: 7 visits Current Treatment Recommendations: Strengthening, Balance Training, Functional Mobility Training, Transfer Training, Endurance Training, Gait Training, Stair training, Neuromuscular Re-education, Pain Management, Home Exercise Program, Safety Education & Training, Patient/Caregiver Education & Training, Equipment Evaluation, Education, & procurement, Positioning Plan Comment: Goals and/or treatment plan were established in collaboration with patient. Safety Safety Devices Safety Devices in Place: Yes Type of Devices: All fall risk precautions in place, Call light within reach, Gait belt, Patient atrisk for falls, Left in bed, Nurse notified, No alarms engaged upon entry into room, Patient left seated EOB AM-PAC Score AM-PAC Inpatient Mobility Raw Score (No Stairs) : 10 Goals Encounter Problems Encounter Problems (Active) Balance Patient will maintain dynamic standing balance for 5 minutes with modified independence in order todemonstrate decreased risk of falling. Start: 01/02/23 Expected End: 01/09/23 Exercise Patient will complete lower extremity exercises for 1-2 sets / 10 reps in order to improve strengthand activity tolerance for mobility. Start: 01/02/23 Expected End: 01/09/23 Mobility Patient will ambulate 50 feet with modified independence and rolling walker in order to improve safety and independence with mobility. Start: 01/02/23 Expected End: 01/09/23 Patient will ascend and descend 5 stairs with one railing and SBA in order to safely negotiate home. Start: 01/02/23 Expected End: 01/09/23 Transfers Patient will perform bed mobility with modified independence in order to improve independence and prepare for out of bed mobility. Start: 01/02/23 Expected End: 01/09/23 Patient will complete functional transfers with least restrictive device and rolling walker with modified independence in order to prepare for ambulation. Start: 01/02/23 Expected End: 01/09/23 Education Education Given To: Patient Education Provided: Goals, PT Role, Plan of Care, Discharge recommendations, Transfer Training, General Safety, Equipment, Gait Training, Injury Prevention, Functional Mobility Training Education Method: Demonstration, Verbal Barriers to Learning: Cognition Education Outcome: Verbalized understanding, Demonstrated understanding, Continued education needed Therapy Time Individual Co-treatment Time In 1021 Time Out 1053 Minutes 32 Adele Mathew PT * Jonathan Nickerson MD - 01/02/2023 11:49 AM EDT Images from the original note were not included. Hospitalist Progress Note 01/02/[id number]: Please secure chat me for patient care issues. [phone]: Please secure chat [facility] Hospitalist for any issues. Subjective: Admit Date: 12/30/2022 PCP: ROOPA MADERA MD Room#: B4-67/[facility] A Interval History: Seen and examined. Feeling better. Wants to go home tomorrow. Adult diet Regular @[id number]@ 24HR INTAKE/OUTPUT: Intake/Output Summary (Last 24 hours) at 01/02/2023 1150 Last data filed at 01/02/2023 0500 Gross per 24 hour Intake -- Output 400 ml Net -400 ml Past Medical History: Past Medical History: Diagnosis Date Arthritis knees hands Asthma Chronic pain GERD (gastroesophageal reflux disease) Hyperlipidemia Kidney stone 2012 Prostate disease Sleep apnea Thyroid disease LABS: CBC: Recent Labs 12/30/22 2300 01/01/23 0126 01/02/23 0231 WBC 8.3 6.8 20.3* RBC 4.65 4.66 4.50 HGB 14.7 14.4 13.9 HCT 42.5 42.6 41.1 MCV 91.4 91.5 91.4 RDW 13.7 13.7 13.8 PLT 427 423 437 BMP: Recent Labs 12/31/22 0449 01/01/23 0126 01/02/23 0231 NA 140 137 138 K 3.4* 4.7 4.5 CL 108* 103 104 CO2 26 22 24 BUN 14 12 22* CREATININE 0.56* 0.71 0.82 GLUCOSE 86 149* 161* CALCIUM 8.9 9.9 10.0 ANIONGAP 6 12 10 LIVER PROFILE: Recent Labs 12/31/22 0449 01/01/23 0126 01/02/23 0231 AST 23 29 21 ALT 12 17 14 BILITOT 0.4 0.5 0.2 ALKPHOS 37* 48 50 PROT 6.0* 7.1 6.8 PT/INR: No results for input(s): PROTIME, INR in the last 72 hours. CARDIAC ENZYMES: Recent Labs 12/30/22 2300 12/31/22 0208 12/31/22 0449 TROPONINI <0.012 <0.012 <0.012 Procalcitonin: No results found for: PROCAL COVID-19 PCR: No results for input(s): COVID19 in the last 72 hours. Objective: Vitals: BP 137/76 (BP Location: Right arm, Patient Position: Lying) Pulse 72 Temp 36.5 C (97.7 F) (Temporal) Resp 20 Ht 5' (1.524 m) Wt 165 lb 9.1 oz (75.1 kg) SpO2 96% BMI 32.33 kg/m Pulse Ox: SpO2 Av.4 % Min: 96 % Max: 97 % Physical Exam Constitutional: Appearance: Normal appearance. Cardiovascular: Rate and Rhythm: Normal rate and regular rhythm. Heart sounds: Normal heart sounds. Pulmonary: Effort: Pulmonary effort is normal. Breath sounds: Normal breath sounds. Abdominal: General: Bowel sounds are normal. Palpations: Abdomen is soft. Musculoskeletal: Left lower leg: No edema. Comments: Trace edema Neurological: Mental Status: He is alert. Psychiatric: Mood and Affect: Mood normal. Medications: alfuzosin ER, 10 mg, Oral, Daily atorvastatin, 10 mg, Oral, Daily cyanocobalamin, 1,000 mcg, Oral, Daily enoxaparin, 40 mg, SubCUTAneous, Daily finasteride, 5 mg, Oral, Daily fluticasone, 2 spray, Each Nostril, Daily fluticasone, 2 puff, Inhalation, BID hydroCHLOROthiazide, 25 mg, Oral, q AM influenza, 0.5 mL, IntraMUSCular, Once ipratropium-albuterol, 1 ampule, Nebulization, TID levothyroxine, 50 mcg, Oral, Daily Mucinex DM, 1 tablet, Oral, q12h pantoprazole, 40 mg, Oral, qAM AC [START ON 01/03/2023] predniSONE, 40 mg, Oral, Daily sodium chloride 0.9%, 10 mL, IntraVENous, 2 times per day Assessment Dyspnea COPD Pulmonary fibrosis RICKY, non compliant HTN Debility and weakness Leukocytosis - likely from steroid Medical Decision Making Seen and examined On 2 lit Home oxygen evaluation before discharge Leucocytosis - likely from steroid, afebrile Change steroid to prednisone CBC in am DC in am -am labs, replace lytes prn -increase activity -DVT prophylaxis: [] Lovenox [] Heparin [] SCDs [x] Encourage ambulation [] Already on Anticoagulation Anticipated Discharge - Date - tomorrow - Location - home with [facility] - Pending the following - clinical improvement Total time spent (which include face to face and non face to face encounters) : 35 minutes Toxic drug monitoring/narrow therapeutic index drug monitoring : # Drug name : # Route administered : # Method of monitoring : Extended Emergency Contact Information Primary Emergency Contact: DestinHarshil Mobile Relation: Relative Jonathan Nickerson MD Division of Hospitalist Medicine [employer] care [employer] PAGER: [employer] chat * Cady Saldivar RCP - 01/02/2023 11:44 AM EDT Pt wears 2 liters of oxygen at home * Mike Lemon OT - 01/02/2023 11:42 AM EDT Images from the original note were not included. Occupational Therapy OCCUPATIONAL THERAPY [facility] Initial Evaluation Name/MRN: Doroteo Gong ([id number]) Evaluation Date: 01/02/2023 Date of : 1940 Admission Date: 12/30/2022 10:19 PM Age: 82 y.o. Room/Bed: [facility] A Discharge Recommendation: SNF Equipment Needed: TBD at next level of care Assessment IMPRESSION: Pt in 12/30 with c.o SOB and difficulty ambulating. He was previously IND for ADLs, IADLs, and functional transfers / mobility. He is currently. MAX A for LB ADLS, MIN A for UB ADLs, and MOD A for functional transfers / mobility with a FWW. He is limited by diminished endurance and balance at this time. He would benefit from skilled OT services to address the below. Recommend planned discharge for SNF. Performance Deficits /Impairments: Decreased Functional Mobility, Decreased ADL status, Decreased Strength, Decreased Endurance, Decreased Balance, Decreased High Level IADLs, and Decreased Posture Prognosis: Fair Decision Making: Medium Complexity Subjective Pleasant and cooperative. Ok to see per RN. Purewick and tele intact and in place. Pain: Pt denies any current pain. Past Medical History: Past Medical History: Diagnosis Date Arthritis knees hands Asthma Chronic pain GERD (gastroesophageal reflux disease) Hyperlipidemia Kidney stone 2012 Prostate disease Sleep apnea Thyroid disease Past Surgical History: Past Surgical History: Procedure Laterality Date APPENDECTOMY BACK SURGERY 2014 slipped disc CATARACT EXTRACTION CHOLECYSTECTOMY JOINT REPLACEMENT Right 2013 LITHOTRIPSY 3-4 times OTHER SURGICAL HISTORY hemorroid removed OTHER SURGICAL HISTORY Left 12/19/2017 stent placement, cystoscopy and pyelogram, Laser Lithotripsy SINUS SURGERY Admission Diagnosis: Patient Active Problem List Diagnosis Date Noted Influenza A 03/21/2022 UTI (urinary tract infection) 02/23/2022 Fall, initial encounter 02/22/2022 Oropharyngeal dysphagia 04/25/2021 Hypoxia 11/04/2020 RICKY (obstructive sleep apnea) 11/04/2020 Class 2 obesity due to excess calories without serious comorbidity with body mass index (BMI) of 36.0 to 36.9 in adult 11/04/2020 Moderate persistent asthma without complication 11/04/2020 Shortness of breath 10/05/2020 Upper respiratory tract infection due to influenza A virus 06/23/2019 Acute asthma exacerbation 06/20/2019 Ureteral calculus 12/19/2017 Hypertrophy of prostate with urinary obstruction 08/02/2017 Renal calculi 09/28/2016 Hydronephrosis with ureteropelvic junction (UPJ) obstruction 09/28/2016 Flank pain 09/28/2016 Medical Precautions: No active isolations Proper PPE donned/doffed in accordance with facility standards. Fall Risk: Villanueva Fall Risk Score: 85 (High Risk) Precautions/Restrictions: N/A Family/Caregiver Present: none Overall Cognitive Status: WFL Overall Orientation Status: Oriented x4 Social/Functional History Pt lives alone in a 2 story house with a bed and bath on the main floor. He has 5 steps to enter. He has a tub shower unit with a standard toilet, grab bars in the shower and around the toilet, and ashower chair. He has a cane and FWW at home and was previously IND for ADLs, IADLs, and functional transfers / mobility with a cane / FWW as needed. Prior Level of Function ADL Assistance: Independent Ambulation Assistance: Independent Transfer Assistance: Independent Objective ADLs Pt required total assist to adjust sotero socks at bed level at this time. He demos diminished functional reach, balance, strength, and endurance at this time for participation in ADL tasks. He demos diminished stability and endurance with OOB activity, requiring return to sitting for rest break following short mobility tasks. Based on functional observations, anticipate pt requires MAX A for LB ADLs and MIN A for UB ADLs with MOD I for feeding. Upper Extremity Assessment AROM: Exceptions: ~ 90 BUE shoulder flexion functionally observed PROM: Not assessed this session Strength: Exceptions: > +3/5 BUE grossly observed with functional activity. Tremors: no Coordination: Not assessed this session Tone: Not assessed this session Sensation: WFL Vision: wears glasses at all times and and are being used during the eval Hearing: normal Hand dominance: N/A Bed Mobility Supine to sit: Mod Assist Scooting: Mod Assist HOB elevated, increased time required to complete. Denies dizziness with positional changes. Increased reliance on bed rails for completion with MOD A for BLE management. Pt required MOD A to square hips to EOB. Pt seated at EOB following session. RN aware. Transfers/Functional Mobility Sit to stand: Mod Assist Stand to sit: Mod Assist Sitting balance: Supervision Standing balance: Mod Assist Functional mobility: Mod Assist Functional Transfers: Pt completed sit<>stands from EOB with use of FWW. Denies dizziness with positional change. MOD A for lift into standing and for controlled descent. No true LOB noted at this time. Increased cueing for proper hand placement. Pt with posterior lean against bed throughout with extended time to complete. Functional Mobility: Few side steps at EOB with initial cueing for sequencing required. Cueing for proper device management. No true LOB, however continues to demo posterior lean against bed frame throughout mobility. Pt fatigues quickly with short mobility, requiring return to sitting for rest break. Device(s) used: front wheeled walker AM-PAC AM-PAC Inpatient Daily Activity Raw Score: 16 ADL Inpatient CMS G-Code Modifier: CK Plan Pt would benefit from skilled acute OT services to address Strengthening, ROM, Balance Training, Functional Mobility Training, Endurance Training, Safety Education and Training, Patient/Caregiver Training, Equipment Evaluation/Education, Positioning, and Self-Care/ADL Training. Frequency: 7 of visits during current hospital admission or until additional recommendations are made Barriers: Decreased endurance, Upper extremity weakness, and Lower extremity weakness Prognosis: good Safety/Education Safety Safety Devices in place: All fall risk precautions in place, call light within reach, gait belt, patient at risk for falls, nurse notified, no alarms engaged upon entry, and patient left sitting EOB Restraints: No Education Education Given To: patient Education Provided: OT Role, Plan of Care, Transfer Training, Equipment, and Fall Prevention Education Education Method: Demonstration and Verbal Barriers to Learning: None Education Outcome: Verbalized Understanding, Demonstrated Understanding, and Continued Education Needed Goals Patient Stated Goal: to return home. Encounter Problems Encounter Problems (Active) Dressing Upper Extremities Patient will complete upper body dressing SBA Start: 01/02/23 Expected End: 01/12/23 Dressings Lower Extremities Patient will dress lower body CGA Start: 01/02/23 Expected End: 01/12/23 Mobility Patient will demonstrate functional mobility with SBA and FWW Start: 01/02/23 Expected End: 01/12/23 Toileting Patient will complete toileting tasks at standard toilet with SBA. Start: 01/02/23 Expected End: 01/12/23 Transfers Patient will complete functional transfer with rolling walker with SBA in order to prepare for ambulation. Start: 01/02/23 Expected End: 01/12/23 Therapy Time Individual Co-treatment Time In 1021 (OT / PT coeval) Time Out 1053 Minutes 32 Mike Lemon OT Patient's Occupational Therapy Plan of Care supervision is transferred to a [facility] Therapy Services Occupational Therapist. Goals and/or treatment plan was established in collaboration with patient/family/other representatives. * Ana Blake APRN - 01/02/2023 11:10 AM EDT Images from the original note were not included. [facility] [place] Pulmonary Medicine [address] [place] [id number] Patient - Doroteo Gong, Age - 82 y.o. - 1940 Room Number - [id number] A Consulting - Jonathan Nickerson MD Primary Care Physician - ROOPA MADERA MD [facility] # - [id number] Date of Admission - 12/30/2022 10:19 PM Hospital Day - 2 Chief Complaint Doroteo Gong is a 82 y.o. male who pulmonary is following for shortness of breath. Interval History Pulmonary following for dyspnea and possible asthma exacerbation. Today, patient reports he is feeling better overall, but did have another episode last night withSOB. He reports he gets occasions where he feels his breathing out of his nose is blocked off. Hereports he can breathe out of his mouth fine. Reports he saw ENT years ago for similar complaints, and work up negative apparently. He reports he uses 2L O2 at night only, and not during the day at all. Coughing up scant amounts of phlegm intermittently. Reports he wheezes at times, which is baseline for him. All other systems reviewed and negative unless otherwise stated in HPI. Objective Vitals: BP 137/76 (BP Location: Right arm, Patient Position: Lying) Pulse 72 Temp 36.5 C (97.7 F) (Temporal) Resp 24 Ht 5' (1.524 m) Wt 165 lb 9.1 oz (75.1 kg) SpO2 96% BMI 32.33 kg/m Pulse Ox: SpO2 Av.5 % Min: 96 % Max: 97 % Supplemental O2: O2 Flow Rate (L/min): 2 L/min I/O 24HR INTAKE/OUTPUT: Intake/Output Summary (Last 24 hours) at 01/02/2023 1110 Last data filed at 01/02/2023 0500 Gross per 24 hour Intake -- Output 400 ml Net -400 ml Exam General appearance: Awake, alert, no acute distress. On 2 liters/min NC HEENT: Normocephalic, atraumatic. No scleral icterus, no right/left eye discharge. Conjunctivae normal. Pupils equal round and reactive to light. Right external ear normal, Left external ear normal. No congestion. Mouth: mucous membranes moist. Pharynx, Oropharynx is clear. No oropharyngeal exudate. Neck: ROM normal, No thyromegaly. No cervical lymphadenopathy Cardiovascular: Regular rate and rhythm. Heart sounds normal. Negative for murmur, friction rub, orgallop. Pulmonary: Effort normal, no respiratory distress. No stridor. Lungs with some faint rhonchi in LLL; no wheezing or rales noted Abdomen: Soft, no distention, no abdominal tenderness. No guarding. No masses. Musculoskeletal: ROM normal. Skin: Warm and dry. Skin is not jaundiced. No rash Extremities: No clubbing or cyanosis. 1+ pitting edema to BLE Neurological: No focal deficits. Alert and oriented x person, place and time. Mental status is at baseline. No motor weakness. Psychiatric: Mood, behavior, thought content normal. Cooperative with exam. Medications Current Medications alfuzosin ER, 10 mg, Oral, Daily atorvastatin, 10 mg, Oral, Daily cyanocobalamin, 1,000 mcg, Oral, Daily enoxaparin, 40 mg, SubCUTAneous, Daily finasteride, 5 mg, Oral, Daily fluticasone, 2 puff, Inhalation, BID hydroCHLOROthiazide, 25 mg, Oral, q AM influenza, 0.5 mL, IntraMUSCular, Once ipratropium-albuterol, 1 ampule, Nebulization, TID levothyroxine, 50 mcg, Oral, Daily Mucinex DM, 1 tablet, Oral, q12h pantoprazole, 40 mg, Oral, qAM AC [START ON 01/03/2023] predniSONE, 40 mg, Oral, Daily sodium chloride 0.9%, 10 mL, IntraVENous, 2 times per day PRN Mediations PRN medications: HYDROcodone - acetaminophen, loperamide, ondansetron ODT OR ondansetron, polyethylene glycol (PEG) 3350, sodium chloride, sodium chloride 0.9% IV Drips/Infusions Labs CBC Results from last 7 days Lab Units 01/02/23 0231 WBC AUTO 10*3/uL 20.3* HEMOGLOBIN g/dL 13.9 HEMATOCRIT % 41.1 PLATELETS AUTO 10*3/uL 437 BMP: Results from last 7 days Lab Units 01/02/23 0231 01/01/23 0126 12/31/22 0449 SODIUM mmol/L 138 137 140 POTASSIUM mmol/L 4.5 4.7 3.4* CHLORIDE mmol/L 104 103 108* CO2 mmol/L 24 22 26 BUN mg/dL 22* 12 14 CREATININE mg/dL 0.82 0.71 0.56* GLUCOSE mg/dL 161* 149* 86 CALCIUM mg/dL 10.0 9.9 8.9 ABG: LIVER PROFILE Results from last 7 days Lab Units 01/02/23 0231 01/01/23 0126 12/31/22 0449 ALK PHOS U/L 50 48 37* BILIRUBIN TOTAL mg/dL 0.2 0.5 0.4 PROTEIN TOTAL g/dL 6.8 7.1 6.0* ALT U/L 14 17 12 AST U/L 21 29 23 INR No lab exists for component: PT PTT No results found for: PTT PFT (01/31/21) Absolute Value % Predicted Z-score FEV1/FVC 75% FEV1 1.48 88 FVC 1.92 79 TLC 4.14 83 RV/TLC 43 85 DLCO 11.41 58 My personal interpretation: Normal spirometry. Normal lung volumes. Isolated reduction in gas transfer is non-specific and may be related to any parenchymal, interstitial, or pulmonary vascular disorder. Cultures Respiratory PCR panel (12/30/22): negative Radiology All relevant/recent imaging was personally reviewed by me. Please see official radiology report fordetails. CXR, 1 view (12/30/22) IMPRESSION: 1. No acute findings. CT chest (07/07/22) IMPRESSION: 1. COPD is evidence of chronic pulmonary hypertension. 2. 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 3. No pathologic pulmonary nodules. Assessment 1. Acute hypoxic respiratory failure 2. Acute exacerbation of COPD/asthma 3. Emphysema on imaging, mild 4. ILD on imaging, mild 5. RICKY not compliant with CPAP 6. Obesity, class I Recommendations Prior PFT showed normal spirometry and patient claims to be a never-smoker, however there is radiographic evidence of emphysema (although mild, ?second-hand smoke exposure). Apha-1 antitrypsin level pending Manage as acute asthma exacerbation; switched to PO steroids for total of 5 days treatment Patient reports most difficulty with nasal breathing. Recommend OP ENT evaluation. For now, can usenasal steroids and evaluate clinical response. Flonase ordered Chronic basilar interstitial/fibrotic changes on imaging are quite mild and may in fact be related to chronic aspiration. MBS completed 05/2021 negative for aspiration at that time Continue home ICS, continue scheduled Duonebs Wean supplemental O2 for goal SpO2 > 92%. Patient using 2L O2 at night only at home. Recommend treatment with PAP therapy for RICKY; can discuss again in OP follow up No additional pulmonary recommendations at this time. Pulm will sign off at this time, but please reach out if additional pulmonary needs arise. OP follow up has been arranged with Dr. Kline on 01/09. * Sera Bae OT - 01/01/2023 1:46 PM EDT Images from the original note were not included. Occupational Therapy OCCUPATIONAL THERAPY [facility] Initial Evaluation Name/MRN: Doroteo Gong ([id number]) Evaluation Date: 01/01/2023 Date of : 1940 Admission Date: 12/30/2022 10:19 PM Age: 82 y.o. Room/Bed: [facility] A OT evaluation orders received. Pt with LE venous duplex completed and results pending. Will continue to follow and attempt once results are complete. Sera Bae OT Patient's Occupational Therapy Plan of Care supervision is transferred to a [facility] Therapy Services Occupational Therapist. Goals and/or treatment plan was established in collaboration with patient/family/other representatives. * Lolita Paulino PT - 01/01/2023 1:42 PM EDT Physical Therapy Facility/Department: [facility] Physical Therapy Initial Evaluation NAME: Doroteo Gong : 1940 Date of Service: 01/01/2023 PT evaluation orders received. Pt with LE venous duplex completed and results pending. Will continue to follow and attempt once results are complete. Lolita Paulino PT * Unique Encinas MD - 01/01/2023 12:11 PM EDT Images from the original note were not included. Hospitalist Progress Note 01/01/[id number]: Please secure chat me for patient care issues. [phone]: Please secure chat [facility] Hospitalist for any issues. Subjective: Admit Date: 12/30/2022 PCP: ROOPA MADERA MD Room#: [id number] A Chief Complaint : Dyspnea-not worsening, feels weak denies any severe cough Interval History: No overnight issues. Denies chest pain, abdominal pain, nausea, vomiting, diarrhea, constipation, fevers, or chills. Adult diet Regular @[id number]@ 24HR INTAKE/OUTPUT: Intake/Output Summary (Last 24 hours) at 01/01/2023 1211 Last data filed at 01/01/2023 0500 Gross per 24 hour Intake 240 ml Output 700 ml Net -460 ml Past Medical History: Past Medical History: Diagnosis Date Arthritis knees hands Asthma Chronic pain GERD (gastroesophageal reflux disease) Hyperlipidemia Kidney stone 2012 Prostate disease Sleep apnea Thyroid disease LABS: CBC: Recent Labs 12/30/22229901/01/23 012 WBC 8.3 6.8 RBC 4.65 4.66 HGB 14.7 14.4 HCT 42.5 42.6 MCV 91.4 91.5 RDW 13.7 13.7 PLT 427 423 BMP: Recent Labs 12/30/22229912/31/22 0449 01/01/23 0126 NA 139 140 137 K 4.1 3.4* 4.7 CL 105 108* 103 CO2 27 26 22 BUN 18 14 12 CREATININE 0.62* 0.56* 0.71 GLUCOSE 90 86 149* CALCIUM 9.7 8.9 9.9 ANIONGAP 7 6 12 LIVER PROFILE: Recent Labs 12/31/2244801/01/23 0126 AST 23 29 ALT 12 17 BILITOT 0.4 0.5 ALKPHOS 37* 48 PROT 6.0* 7.1 PT/INR: No results for input(s): PROTIME, INR in the last 72 hours. CARDIAC ENZYMES: Recent Labs 12/30/22229923 0208 12/31/22 0449 TROPONINI <0.012 <0.012 <0.012 Procalcitonin: No results found for: PROCAL COVID-19 PCR: No results for input(s): COVID19 in the last 72 hours. Objective: Vitals: BP (!) 147/70 (BP Location: Right arm, Patient Position: Lying) Pulse 86 Temp 36.4 C (97.6 F) (Temporal) Resp 18 Ht 5' (1.524 m) Wt 165 lb 9.1 oz (75.1 kg) SpO2 97% BMI 32.33 kg/m Pulse Ox: SpO2 Av.8 % Min: 95 % Max: 99 % Physical Exam Constitutional: Appearance: He is obese. He is ill-appearing. Cardiovascular: Rate and Rhythm: Normal rate and regular rhythm. Pulmonary: Effort: Tachypnea present. Breath sounds: Decreased air movement present. Abdominal: General: Bowel sounds are normal. Palpations: Abdomen is soft. Tenderness: There is abdominal tenderness. Musculoskeletal: Comments: Bilateral pitting edema 1+ of the legs Medications: alfuzosin ER, 10 mg, Oral, Daily atorvastatin, 10 mg, Oral, Daily cyanocobalamin, 1,000 mcg, Oral, Daily enoxaparin, 40 mg, SubCUTAneous, Daily finasteride, 5 mg, Oral, Daily fluticasone, 2 puff, Inhalation, BID hydroCHLOROthiazide, 25 mg, Oral, q AM influenza, 0.5 mL, IntraMUSCular, Once ipratropium-albuterol, 1 ampule, Nebulization, TID levothyroxine, 50 mcg, Oral, Daily methylPREDNISolone sod suc (PF), 20 mg, IntraVENous, q8h Mucinex DM, 1 tablet, Oral, q12h pantoprazole, 40 mg, Oral, qAM AC sodium chloride 0.9%, 10 mL, IntraVENous, 2 times per day Assessment Acute asthma exacerbation on background of lung fibrosis Acute hypoxic respiratory insufficiency due to above Obstructive sleep apnea Obesity hypoventilation syndrome Obesity Chronic problems: Hypothyroidism Benign prostatic hyperplasia Essential hypertension Medical Decision Making Patient is an 82-year-old gentleman who was admitted for acute dyspnea and minimal cough, and generalized weakness looks like a combination of asthma exacerbation and sleep apnea he has pulmonary fibrosis and emphysema features on CAT scan, patient not a smoker, echo showed left ventricular ejection fraction of 55% Pulmonology following, patient on Flovent/methylprednisolone 20 mg IV 3 times daily and DuoNebs, sputum culture to be obtained, PT and OT evaluations ordered, can be discharged tomorrow if better with outpatient follow-up with pulmonology, needs home O2 evaluation -am labs, replace lytes prn -increase activity -DVT prophylaxis: [x] Lovenox [] Heparin [] SCDs [x] Encourage ambulation [] Already on Anticoagulation Anticipated Discharge - Date -January 02 or - Location -location Home or SNF - Pending the following -medical improvement Total time spent (which include face to face and non face to face encounters) : 36 minutes Toxic drug monitoring/narrow therapeutic index drug monitoring : # Drug name : # Route administered : # Method of monitoring : Extended Emergency Contact Information Primary Emergency Contact: Harshil Murguia Mobile Relation: Relative UNIQUE ENCINAS MD, MD Division of Hospitalist Medicine Acute [facility] PAGER: [employer] chat * Brisa Amezcua MD - 01/01/2023 10:26 AM EDT Images from the original note were not included. [facility] [place] Pulmonary Medicine [address] [place], [place] [id number] Patient - Doroteo Gong, Age - 82 y.o. - 1940 Room Number - [id number] A Consulting - Unique Encinas MD Primary Care Physician - ROOPA MADERA MD Date of Admission - 12/30/2022 10:19 PM Hospital Day - 1 Chief Complaint Doroteo Gong is a 82 y.o. male who pulmonary is following for shortness of breath. Interval History Pulmonary following for dyspnea and possible asthma exacerbation. He is on room air baseline, currently requiring 2 LPM supplemental O2 (reportedly room air on initial presentation). Patient is a very poor historian. He is a never smoker, and he is not compliant with PAP therapy for RICKY. States breathing is improved compared to admission. He has an occasional cough, phlegm gets stuck in throat however. He denies fever, chills, chest pain, hemoptysis, abdominal pain, nausea, vomiting, diarrhea, constipation, lightheadedness, dizziness, dysuria, hematuria, melena, hematochezia, leg pain, leg swelling. He is hemodynamically stable and in no acute distress. All other systems reviewed and negative unless otherwise stated in HPI. Objective Vitals: BP 133/71 (BP Location: Right arm, Patient Position: Lying) Pulse 96 Temp 36.9 C (98.4 F) (Temporal) Resp 16 Ht 5' (1.524 m) Wt 165 lb 9.1 oz (75.1 kg) SpO2 97% BMI 32.33 kg/m Pulse Ox: SpO2 Av.8 % Min: 95 % Max: 99 % Supplemental O2: O2 Flow Rate (L/min): 2 L/min I/O 24HR INTAKE/OUTPUT: Intake/Output Summary (Last 24 hours) at 01/01/2023 1543 Last data filed at 01/01/2023 0500 Gross per 24 hour Intake -- Output 700 ml Net -700 ml Exam General appearance: Awake, alert, no acute distress. On 2 liters/min NC. Tremulous. HEENT: Normocephalic, atraumatic. No scleral icterus, no right/left eye discharge. Conjunctivae normal. Pupils equal round and reactive to light. Right external ear normal, Left external ear normal. No congestion. Mouth: mucous membranes moist. Pharynx, Oropharynx is clear. No oropharyngeal exudate. Neck: ROM normal, No thyromegaly. No cervical lymphadenopathy Cardiovascular: Regular rate and rhythm. Heart sounds normal. Negative for murmur, friction rub, orgallop. Pulmonary: Effort normal, no respiratory distress. No stridor. Mild expiratory wheezing. No crackles. Abdomen: Soft, no distention, no abdominal tenderness. No guarding. No masses. Musculoskeletal: ROM normal. Skin: Warm and dry. Skin is not jaundiced. No rash Extremities: No clubbing or cyanosis. No lower extremity edema. Neurological: No focal deficits. Alert and oriented x person, place and time. Mental status is at baseline. No motor weakness. Psychiatric: Mood, behavior, thought content normal. Cooperative with exam. Medications Current Medications alfuzosin ER, 10 mg, Oral, Daily atorvastatin, 10 mg, Oral, Daily cyanocobalamin, 1,000 mcg, Oral, Daily enoxaparin, 40 mg, SubCUTAneous, Daily finasteride, 5 mg, Oral, Daily fluticasone, 2 puff, Inhalation, BID hydroCHLOROthiazide, 25 mg, Oral, q AM influenza, 0.5 mL, IntraMUSCular, Once ipratropium-albuterol, 1 ampule, Nebulization, TID levothyroxine, 50 mcg, Oral, Daily methylPREDNISolone sod suc (PF), 20 mg, IntraVENous, q8h Mucinex DM, 1 tablet, Oral, q12h pantoprazole, 40 mg, Oral, qAM AC sodium chloride 0.9%, 10 mL, IntraVENous, 2 times per day PRN Mediations PRN medications: HYDROcodone - acetaminophen, loperamide, ondansetron ODT OR ondansetron, polyethylene glycol (PEG) 3350, sodium chloride, sodium chloride 0.9% IV Drips/Infusions Labs CBC Results from last 7 days Lab Units 01/01/23 012 WBC AUTO 10*3/uL 6.8 HEMOGLOBIN g/dL 14.4 HEMATOCRIT % 42.6 PLATELETS AUTO 10*3/uL 423 BMP: Results from last 7 days Lab Units 01/01/23 0126 12/31/22 04412/30/22 2300 SODIUM mmol/L 137 140 139 POTASSIUM mmol/L 4.7 3.4* 4.1 CHLORIDE mmol/L 103 108* 105 CO2 mmol/L 22 26 27 BUN mg/dL 12 14 18 CREATININE mg/dL 0.71 0.56* 0.62* GLUCOSE mg/dL 149* 86 90 CALCIUM mg/dL 9.9 8.9 9.7 ABG: LIVER PROFILE Results from last 7 days Lab Units 01/01/23 01212/31/22448 ALK PHOS U/L 48 37* BILIRUBIN TOTAL mg/dL 0.5 0.4 PROTEIN TOTAL g/dL 7.1 6.0* ALT U/L 17 12 AST U/L 29 23 INR No lab exists for component: PT PTT No results found for: PTT PFT (01/31/21) Absolute Value % Predicted Z-score FEV1/FVC 75% FEV1 1.48 88 FVC 1.92 79 TLC 4.14 83 RV/TLC 43 85 DLCO 11.41 58 My personal interpretation: Normal spirometry. Normal lung volumes. Isolated reduction in gas transfer is non-specific and may be related to any parenchymal, interstitial, or pulmonary vascular disorder. Cultures Respiratory PCR panel (12/30/22): negative Radiology All relevant/recent imaging was personally reviewed by me. Please see official radiology report fordetails. CXR, 1 view (12/30/22) IMPRESSION: 1. No acute findings. CT chest (07/07/22) IMPRESSION: 1. COPD is evidence of chronic pulmonary hypertension. 2. 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 3. No pathologic pulmonary nodules. Assessment 1. Acute hypoxic respiratory failure 2. Acute exacerbation of COPD/asthma 3. Emphysema on imaging, mild 4. ILD on imaging, mild 5. RICKY not compliant with CPAP 6. Obesity, class I Recommendations Although prior PFT showed normal spirometry and patient claims to be a never- smoker, there is radiographic evidence of emphysema (although mild, ?second-hand smoke exposure), check alpha-1 antitrypsin level Manage as acute asthma exacerbation for now, recommend switching steroids to PO prednisone 40 mg daily for a total of 5 days of steroids Chronic basilar interstitial/fibrotic changes on imaging are quite mild and may in fact be related to chronic aspiration, consider further evaluation with MBS Continue home ICS, continue scheduled Duonebs Wean supplemental O2 for goal SpO2 > 92% Counseled on weight loss, counseled on using PAP therapy outpatient, he does not seem interested unfortunately Pulmonary will continue to follow Brisa Amezcua MD Pulmonary & Critical Care Medicine Obesity Medicine Specialist [facility] * Angelika Valiente - 01/01/2023 7:56 AM EDT Nutrition rescreen complete. Pt assigned a level one for nutrition care. * Ian Frost RCP - 12/31/2022 3:35 PM EDT [facility] Respiratory Care Department Progress Note As part of the Respiratory Assessment Program (RAP), the following Respiratory Therapist evaluationhas been completed, including a chart review and clinical/physical assessment. Respiratory Therapist RAP Evaluation Guideline Points 0 1 2 3 4 Points Strongly Consider History Factor No Pulmonary conditions Stable Pulmonary condition(s) Surgery or Intervention that may impact Pulmonary system (at risk) Surgery or Intervention that is impacting Pulmonary system Active Exacerbation of Pulmonary Condition 1 Respiratory Pattern Regular, RR= 12-18 CAMPOS or Increased RR= 19-24 Irregular, or RR= 25-30 SOB, talk in short sentences, or RR= 31-35 Severe SOB, accessory muscle use, one word answers, or RR>35 03 Aerosol Med(s), High Flow O2 Breath Sounds Clear Diminished in 1 lobe Diminished in ? 2 lobes Adventitious breath sounds Coarse crackles, Wheezes, or Diminished in >2 lobes 2 Aerosol Med(s), Bronchial Hygiene, Hyperinflation Cough & Sputum Strong cough, no secretion retention or production Weak cough, no secretion retention or production Weak cough, w/ production (less often than Q2hr), or secretion retention No cough, w/ secretion retention or production (less often than Q2hr) Significant secretion production (more often than Q2hr) or mucus plug 1 Aerosol Med(s), Bronchial Hygiene, Hyperinflation Level of Activity Ambulatory Ambulatory with Assist Up in chair or edge of bed (dangle) Non-ambulatory, bedridden with active ROM Completely paralyzed or without active ROM 0 Triage 5 0-2 Triage 4 3-5 Triage 3 6-10 Triage 2 11-14 Triage 1 ?15 Total 3 Triage Score = 3 TRIAGE SCORING - SUGGESTED FREQUENCIES Aerosol Therapy Bronchial Hygiene Hyperinflation Triage Score Q4h & PRN 1 Q4hWA (QID) & PRN 2 TID & PRN 3 BID & PRN 4 PRN 5 Therapy(s) Indicated Yes/No Aerosol Medication Y Hyperinflation N Bronchial Hygiene N High Flow Oxygen N Flow Rates PEF (L/Sec) IVC FVC FEV1 FEV1/FVC Patient instructed and returned demonstration on use of MDI (with spacer, as appropriate) None RT to enter/modify frequency of treatment order in EMR/EHR to match this RAP evaluation. Based on this RAP evaluation the following therapy is being initiated: N At the following frequency: N Comments: TID Thank you for involving Respiratory in the care of this patient, * Unique Encinas MD - 12/31/2022 2:09 PM EDT Patient is seen and examined, admitted early a.m. by the repacker, see H&P for details. Orders reviewed and updated. 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 * Lolis Carballo PT - 12/31/2022 8:56 AM EDT Physical Therapy Facility/Department: [address] Physical Therapy Initial Evaluation NAME: Doroteo Gong : 1940 Date of Service: 12/31/2022 PT orders received. Chart reviewed. Per chart review, pt has BLE duplex pending. Will await resultsand anticoagulation as needed prior to initiating mobility. Will continue to follow and re-attempt as pt appropriate and schedule permits. Lolis Carballo PT documented in this [facility]09-21-2023 Hospital course Narrative* Jonatahn Nickerson MD - 01/04/2023 10:45 AM EDT Discharge Summary Doroteo Gong : 1940 ADMIT DATE: 12/30/2022 DISCHARGE DATE: 01/04/2023 PRIMARY CARE PHYSICIAN: ROOPA MADERA VISIT STATUS: Admission CODE STATUS: Full Code DISCHARGE DIAGNOSES: Principal Problem: Shortness of breath Dyspnea - secondary to underlying COPD and pulmonary fibrosis - pulmonology consulted, improved. - DC on short course of prednisone COPD with mild exacerbation Pulmonary fibrosis RICKY, non compliant HTN Debility and weakness Leukocytosis - likely from steroid Urinary retention - urology consulted, schwartz placed. - follow up with urology as an outpatient for voiding trial HOSPITAL COURSE: Admitted for SOB with h/o COPD, lung fibrosis and RICKY. Pulmonology consulted. Improved with BD steroid. DC on short course of prednisone to follow up with pulmonology as an outpatient. Non compliant with CPAP and uses oxygen during night at home. Hospital course complicated by urinary retention. Schwartz placed. Urology consulted. Would follow up with urology as an outpatient for voiding trial. Discharged SNF in stable condition. SIGNIFICANT DIAGNOSTIC STUDIES: US retroperitoneum: Impression: No hydronephrosis. Left-sided nephrolithiasis. Enlarged prostate. CONSULTANTS: Pulmonology, urology RECOMMENDED NEXT STEPS: Follow up with pulmonology, ENT, urology , PCP as an outpatient . Voiding trial in 2-3 weeks Exam: BP 131/74 (BP Location: Left arm, Patient Position: Lying) Pulse 78 Temp 36.4 C (97.6 F) (Temporal) Resp 18 Ht 5' (1.524 m) Wt 165 lb 9.1 oz (75.1 kg) SpO2 97% BMI 32.33 kg/m General: alert, awake Chest : b/l equal air entry, decreased on bases CVS: s1, s2, MO PA: soft, NT, BS+ Ext: trace edema Neuro; alert, awake appropriate, no focal lateralizing signs noted. DISCHARGE MEDICATIONS: Medication List START taking these medications predniSONE 20 MG tablet Commonly known as: Deltasone Take 2 tablets (40 mg) by mouth daily for 3 doses. Do not start before January 05, 2023. Start taking on: January 05, 2023 CONTINUE taking these medications acetaminophen 650 MG ER tablet Commonly known as: Tylenol 8 Hour albuterol 108 (90 Base) MCG/ACT inhaler alfuzosin ER 10 MG 24 hr tablet Commonly known as: Uroxatral Take 1 tablet (10 mg) by mouth daily. [facility] Vitamin B-12 1000 MCG tablet Generic drug: cyanocobalamin finasteride 5 MG tablet Commonly known as: Proscar Take 1 tablet (5 mg) by mouth daily. fluticasone 110 MCG/ACT inhaler Commonly known as: Flovent hydroCHLOROthiazide 25 MG tablet Commonly known as: HYDRODiuril ipratropium 0.06 % nasal spray Commonly known as: Atrovent levothyroxine 50 MCG tablet Commonly known as: Synthroid, Levoxyl omeprazole [address] capsule Commonly known as: PriLOSEC pantoprazole 40 MG EC tablet Commonly known as: ProtoNix polyethylene glycol (PEG) 3350 17 GM/SCOOP powder Commonly known as: Glycolax simvastatin 20 MG tablet Commonly known as: Zocor STOP taking these medications Mucinex DM 30-600 MG tablet sustained-release 12 hour Where to Get Your Medications These medications were sent to [facility] [address] [place] [id number] Hours: Sunday to Sunday 10 am to 6 pm predniSONE 20 MG tablet DIET: Adult diet Regular ACTIVITY: No restriction. COMPLEXITY OF FOLLOW UP: [x] Moderate Complexity: follow up within 7-14 calendar days (60032) [] Severe Complexity: follow up within 7 calendar days (08080) FOLLOW UP TESTING, PENDING RESULTS OR REFERRALS AT TRANSITIONAL CARE VISIT: [x] Yes [] No PENDING STUDIES: DISPOSITION: Skilled Facility FACILITY/HOME CARE AGENCY NAME: Follow up with Joann Kline MD [address] [facility] [address] Follow up A hospital follow up appt has been arranged on 01/[address] Kline at 10:45 am Please call [phone] to reschedule if needed [facility] ENT [address] [facility] [address] [facility] [phone] Call Recommend ENT evaluation outpatient. Please call to arrange an appt after discharge. Roopa Madera MD [address] [facility] [address] Follow up in 1 week(s) Kathy Ordonez MD [address] [facility] [address] [facility] [address] Follow up 2-3 weeks for voiding trial. on INSTRUCTIONS TO MA/SW: Please call patient on day after discharge (must document patient contacted within 2 business days of discharge). FOLLOW UP QUESTIONS FOR MA/SW: 1. Did you get medications filled and taking them as instructed from discharge? 2. Are you following your discharge instructions from your hospital stay? 3. Please confirm patient is scheduled for a follow up appointment within the above time frame. DISCHARGE TIME: 40 min. SIGNED: Jonathan Nickerson MD 01/04/2023, 10:45 AM documented in this [facility]09-21-2023 Hospital Discharge instructions* Discharge Instr - HARDEEP* Amanda Steel RN - 01/04/2023 10:37 AM EDT Continuity of Care Form Patient Name: Doroteo Gong : 1940 Admit date: 12/30/2022 Discharge date: 01/04/2023 Code Status Order: Full Code Advance Directives: N Admitting Physician: Jonathan Nickerson MD PCP: ROOPA MADERA MD Discharging Nurse: Amanda Steel RN Discharging Hospital Unit/Room#: B7-315/[id number] A Discharging Unit Emergency Contact: Extended Emergency Contact Information Primary Emergency Contact: Harshil Murguia Mobile Relation: Relative Past Surgical History: Past Surgical History: Procedure Laterality Date APPENDECTOMY BACK SURGERY 2014 slipped disc CATARACT EXTRACTION CHOLECYSTECTOMY JOINT REPLACEMENT Right 2014 LITHOTRIPSY 3-4 times OTHER SURGICAL HISTORY hemorroid removed OTHER SURGICAL HISTORY Left 12/19/2017 stent placement, cystoscopy and pyelogram, Laser Lithotripsy SINUS SURGERY Immunization History: Immunization History Administered Date(s) Administered Moderna SARS-CoV-2 Vaccination 05/13/2020, 06/10/2020, 04/12/2021, 11/07/2021 Active Problems: Medical Problems Problem List * (Principal) Shortness of breath Fall, initial encounter UTI (urinary tract infection) Influenza A Renal calculi Hydronephrosis with ureteropelvic junction (UPJ) obstruction Flank pain Ureteral calculus Upper respiratory tract infection due to influenza A virus Acute asthma exacerbation Hypoxia RICKY (obstructive sleep apnea) Class 2 obesity due to excess calories without serious comorbidity with body mass index (BMI) of 36.0 to 36.9 in adult Moderate persistent asthma without complication Oropharyngeal dysphagia Hypertrophy of prostate with urinary obstruction Overview Signed 01/29/2022 10:19 AM by Interface, Incoming Problems- [employer] Conversion Updating Deprecated Diagnoses Isolation/Infection: No active isolations No active infections Nurse Assessment: Last Vital Signs: BP 131/74 (BP Location: Left arm, Patient Position: Lying) Pulse 78 Temp 36.4C (97.6 F) (Temporal) Resp 18 Ht 5' (1.524 m) Wt 165 lb 9.1 oz (75.1 kg) SpO2 97% BMI 32.33 kg/m Last documented pain score (0-10 scale): Last Weight: Wt Readings from Last 1 Encounters: 12/31/22 165 lb 9.1 oz (75.1 kg) Mental Status: HARDEEP Patient Mental Status: oriented, alert, coherent, logical, thought processes intact, and able to concentrate and follow conversation IV Access: HARDEEP IV Access: None Nursing Mobility/ADLs: Walking Minimal assistance Transfer Independent Bathing Minimal assistance Dressing Independent Toileting Minimal assistance Feeding Independent Dining Room Coordinator Minimal assistance Med Delivery no Wound Care Documentation and Therapy: Elimination: Continence: Bowel: yes Bladder: yes Urinary Catheter: Insertion date: 12/31/2022 Indication for use of catheter: Acute urinary retention/obstruction Colostomy/Ileostomy/Ileal Conduit: None Date of Last BM: 01/01/2023 Intake/Output Summary (Last 24 hours) at 01/04/2023 1037 Last data filed at 01/04/2023 0646 Gross per 24 hour Intake -- Output 1900 ml Net -1900 ml I/O last 3 completed shifts: In: 10 (0.1 mL/kg) [I.V.:10 (0.1 mL/kg)] Out: 4050 (53.9 mL/kg) [Urine:4050 (1.5 mL/kg/hr)] Weight: 75.1 kg Safety Concerns: at risk for falls Impairments/Disabilities: hearing Nutrition Therapy: Current Nutrition Therapy: Oral diet: general Routes of Feeding: oral Liquids: thin liquids Daily Fluid Restriction: no Last Modified Barium Swallow with Video (Video Swallowing Test): not done Treatments at the Time of Hospital Discharge: Respiratory Treatments: DuoNebs Oxygen Therapy: is on oxygen at 2 L/min per nasal cannula. Ventilator: No ventilator support Rehab Therapies: physical therapy and occupational therapy Weight Bearing Status/Restrictions: no restriction Other Medical Equipment (for information only, NOT a DME order): none Other Treatments: Patient's personal belongings (please select all that are sent with patient): dentures lower and jewelry RN SIGNATURE: MANAGEMENT/SOCIAL WORK SECTION Inpatient Status Date: Readmission Risk Assessment Score: @READMISSIONRISKDETAILS@ Discharging to Facility/ Agency Name: Address: Phone: Fax: Dialysis Facility (if applicable) Name: Address: Dialysis Schedule: Phone: Fax: Senior Lead Developer/Social Sciences Lecturer signature: {E-signature:[id number]} PHYSICIAN SECTION Prognosis: fair Condition at Discharge: stable Rehab Potential (if transferring to Rehab): fair Recommended Labs or Other Treatments After Discharge: Cbc/BMP in 1 week. Follow up with urology in 2-3 weeks for voiding trial . Follow up with urology and ENT as an outpatient. Physician Certification: I certify the above information and transfer of Doroteo Gong is necessary for the continuing treatment of the diagnosis listed and that he requires [facility] facility for less than 30 days. Update Admission H&P: No change in H&P PHYSICIAN SIGNATURE: documented in this [facility]09-21-2023 Note* Care Coordination - YURI Mccarthy - 01/04/2023 9:54 AM EDT Transportation arranged through [facility] by wheelchair van set for 1 pm. Notified RN and TCC of this via [employer] secure chat. Will update patient at bedside. SW remains available if any other needs or concerns arise. [id number]* Care Coordination - YURI Mccarthy - 01/04/2023 9:54 AM EDT Transportation arranged through [facility] by wheelchair van set for 1 pm. Notified RN and TCC of this via [employer] secure chat. Will update patient at bedside. SW remains available if any other needs or concerns arise. [id number] Note* Care Coordination - Tho Echevarria - 01/03/2023 11:47 AM EDT Referral placed to [facility] via [facility]port per TCC request. Await review and response regarding ability to accept. TCC notified. [id number] Note* Care Coordination - Tho Echevarria - 01/03/2023 11:47 AM EDT Referral placed to [facility] via [facility]port per TCC request. Await review and response regarding ability to accept. TCC notified. [id number] Consult note* Jonathan Bryan MD - 01/03/2023 9:35 AM EDT Associated Order(s): IP CONSULT TO UROLOGY Images from the original note were not included. Anni Vernon APRN - [facility] 01/03/2023 at 9:35 AM [facility] Urology Inpatient Consultation PATIENT NAME: Doroteo Gong DATE OF : 1940 ADMISSION DATE: 12/30/2022 10:19 PM TODAY'S DATE: 01/03/2023 Consultation requested by: Jeanie Mora Reason for Consult: Urinary Retention IMPRESSION: PT is an 82 year old male who presented to the hospital for a complaint of shortness of breath and poor mobility Urology consulted for urinary Retention PLAN Urinary Retention Maintain schwartz catheter to straight drain 16F Straight Keep catheter upon discharge given high output 850cc output with placement Renal US ordered due to high residual Continue to trend labs UA-26-50 RBC/HPF, WBC/HPF 6-10 WBC- 17.0, Creat-0.84, GFR- 86.5 Continue Proscar and Uroxatrol May transition Uroxatrol to Flomax 0.4mg No acute surgical intervention at this time. Follow up after discharge 2-3 weeks for voiding trial with KEREN Given poor mobility and high residuals in past if patient should fail recommend chronic catheter. If pt proceeds with chronic catheter as outpatient Discontinue flomax and continue proscar. Thank you for this consultation and allow for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 cervical or axillary lymphadenopathy Psychiatric: Mood, behavior, thought content normal. Cooperative with exam. Labs CBC Results from last 7 days Lab Units 12/30/22 2300 WBC AUTO 10*3/uL 8.3 HEMOGLOBIN g/dL 14.7 HEMATOCRIT % 42.5 PLATELETS AUTO 10*3/uL 427 BMP: Results from last 7 days Lab Units 12/31/22 0449 12/30/22 2300 SODIUM mmol/L 140 139 POTASSIUM mmol/L 3.4* 4.1 CHLORIDE mmol/L 108* 105 CO2 mmol/L 26 27 BUN mg/dL 14 18 CREATININE mg/dL 0.56* 0.62* GLUCOSE mg/dL 86 90 CALCIUM mg/dL 8.9 9.7 ABG: LIVER PROFILE Results from last 7 days Lab Units 12/31/22 0449 ALK PHOS U/L 37* BILIRUBIN TOTAL mg/dL 0.4 PROTEIN TOTAL g/dL 6.0* ALT U/L 12 AST U/L 23 INR No lab exists for component: PT PTT No results found for: PTT Cultures Sputum culture pending Pulmonary function tests (PFT's) Last PFT reviewed Mild restrictive disease with moderately decreased diffusing capacity With borderline response to bronchodilator therapy Sleep History History of obstructive sleep apnea hypoxemia noncompliant with CPAP uses oxygen only Radiology Chest x-ray reviewed interpreted as above Assessment & Recommendations -Shortness of breath Likely multifactorial including wheezing bronchospasm underlying asthma pulmonary fibrosis and deconditioning Suspicious for pulmonary embolism low as patient is not tachycardic not tachypneic D-dimer within normal limits Bronchodilator therapy with albuterol and Atrovent -Chronic respiratory failure/obstructive sleep apnea/noncompliant with CPAP Patient not using CPAP machine will use oxygen especially during night Does not seems to be receptive of using CPAP anymore Titrate FiO2 keep sat above 92 percentile -History of bronchial asthma/currently wheezing Likely acute flareup of asthma Bronchodilator therapy On inhaled steroid Low-dose of systemic steroid Patient never smoked cigarettes -History of pulmonary fibrosis on CAT scan of June 2022 Continue oxygen supplement 6 minutes walk prior to discharge to assess need for portable oxygen Follow-up in pulmonary clinic as an outpatient May need repeat CT chest without contrast Advance Directive: Full Code Case discussed with nurse and patient Questions and concerns addressed. Total time 60 minutes on this day of encounter includes counseling, coordinating plan of care, record and documentation review before and after visit including documentation and time not explicitly included on EMR time stamp for accounting for open encounter. Portions of the information within this encounter were entered using an electronic dictation system. Best attempts were made to edit/proofread the information prior to note completion. Despite the review of information, some errors may remain. If there are questions related to the information contained within the note please contact the signing provider directly. [id number] Plan of care note* Care Plan - Chaparrita Lr RN - 12/31/2022 6:41 AM EDT Problem: Knowledge Deficit Goal: Patient/family/caregiver demonstrates understanding of disease process, treatment plan, medications, and discharge instructions Outcome: Progressing Flowsheets (Taken 12/31/2022 0641) Patient/family/caregiver demonstrates understanding of disease process, treatment plan, medications, and discharge instructions: Complete learning assessment and assess knowledge base Provide teaching via preferred learning methods Provide teaching at level of understanding The patient is Moderately Stable - Low risk of patient condition declining or worsening The patient's goals for the shift include rest The clinical goals for the shift include safety Over the shift, the patient did not make progress toward the following goals. Barriers to progression include [id number] History and physical note* Jonathan Nickerson MD - 12/31/2022 2:01 AM EDT Images from the original note were not included. Attending History and Physical Admit Date: 12/30/2022 PCP: ROOPA MADERA MD CHIEF COMPLAINT: SOB Difficulty with ambulation Reason for Admission: same. History Obtained From: patient HISTORY OF PRESENT ILLNESS: Doroteo is a 82 y.o. male with past medical history below who presents with chief complaint listed above. Says woke up this morning with SOB, more with exertion. Has chronic cough, not change, not much expectoration. No fever or chills. No chest pain. Has leg swelling which he says is not worse than usual. Has sever OA of knee and hip, more on left limiting his mobility. He has surgery scheduled for leftknee in February. On review of chart, SOB has been there for months and is worked up by cardiology and pulmonology. Recent CT chest , 2-3 months ago with COPD with pulmonary HTN and mild pulmonary fibrotic changes. No abdominal pain, nausea or vomiting. No urinary symptoms . No focal weakness. Past Medical History: Past Medical History: Diagnosis Date Arthritis knees hands Asthma Chronic pain GERD (gastroesophageal reflux disease) Hyperlipidemia Kidney stone 2012 Prostate disease Sleep apnea Thyroid disease Past Surgical History: Past Surgical History: Procedure Laterality Date APPENDECTOMY BACK SURGERY 2014 slipped disc CATARACT EXTRACTION CHOLECYSTECTOMY JOINT REPLACEMENT Right 2014 LITHOTRIPSY 3-4 times OTHER SURGICAL HISTORY hemorroid removed OTHER SURGICAL HISTORY Left 12/19/2017 stent placement, cystoscopy and pyelogram, Laser Lithotripsy SINUS SURGERY Social History: Social History Socioeconomic History Marital status: Single Spouse name: Not on file Number of children: Not on file Years of education: Not on file Highest education level: Not on file Occupational History Not on file Tobacco Use Smoking status: Never Smokeless tobacco: Never Vaping Use Vaping Use: Never used Substance and Sexual Activity Alcohol use: No Drug use: No Sexual activity: Not on file Other Topics Concern Not on file Social History Narrative Not on file Social Determinants of Health Financial Resource Strain: Not on file Food Insecurity: Not on file Transportation Needs: Not on file Physical Activity: Not on file Stress: Not on file Social Connections: Not on file Intimate Partner Violence: Not At Risk (03/23/2022) Humiliation, Afraid, Rape, and Kick questionnaire Fear of Current or Ex-Partner: No Emotionally Abused: No Physically Abused: No Sexually Abused: No Housing Stability: Not on file Family History: Family History Problem Relation Name Age of Onset Heart failure Mother Diabetes Mother Medications Prior to Admission: No current facility-administered medications on file prior to encounter. Current Outpatient Medications on File Prior to Encounter Medication Sig Dispense Refill acetaminophen (Tylenol 8 Hour) 650 MG ER tablet Take 650 mg by mouth every 8 hours as needed. albuterol 108 (90 Base) MCG/ACT inhaler Inhale 2 puffs every 6 hours as needed. alfuzosin ER (Uroxatral) 10 MG 24 hr tablet Take 1 tablet (10 mg) by mouth daily. 90 tablet 3 cyanocobalamin (CVS Vitamin B-12) 1000 MCG tablet Take 1,000 mcg by mouth. Dextromethorphan-guaiFENesin (Mucinex DM) 30-600 MG tablet sustained-release 12 hour Take 1 tablet by mouth in the morning and 1 tablet in the evening. 28 tablet 0 finasteride (Proscar) 5 MG tablet Take 1 tablet (5 mg) by mouth daily. 90 tablet 3 fluticasone (Flovent) 110 MCG/ACT inhaler Inhale 2 puffs in the morning and 2 puffs before bedtime. hydroCHLOROthiazide (HYDRODiuril) 25 MG tablet Take 25 mg by mouth every morning. ipratropium (Atrovent) 0.06 % nasal spray Administer 2 sprays into affected nostril(s). levothyroxine (Synthroid, Levoxyl) 50 MCG tablet Take 50 mcg by mouth in the morning. omeprazole (PriLOSEC) [address] capsule Take 20 mg by mouth in the morning. pantoprazole (ProtoNix) 40 MG EC tablet TAKE 1 TABLET BY MOUTH ONCE DAILY. 30 MINUTES BEFORE EATING. polyethylene glycol, PEG, 3350 (Glycolax) 17 GM/SCOOP powder Take by mouth. simvastatin (Zocor) 20 MG tablet Take 20 mg by mouth in the morning. Allergies: Allergies Allergen Reactions Allopurinol Unknown Erythromycin Unknown Penicillins Unknown Sulfa Antibiotics Unknown Tetracyclines & Related Unknown Levofloxacin Other jittery Ciprofloxacin Unknown Paroxetine Other Fatigue REVIEW OF SYSTEMS: 10 point ROS done, negative other than HPI Vitals: BP (!) 150/83 (BP Location: Left arm, Patient Position: Lying) Pulse 65 Temp 36.9 C (98.5 F) (Oral) Resp 20 SpO2 98% BMI Classification: Pulse Ox: SpO2 Av % Min: 98 % Max: 98 % Supplemental O2: PHYSICAL EXAM: Physical Exam Constitutional: Appearance: Normal appearance. Cardiovascular: Rate and Rhythm: Normal rate and regular rhythm. Pulses: Normal pulses. Heart sounds: Normal heart sounds. Pulmonary: Effort: Pulmonary effort is normal. Breath sounds: Normal breath sounds. Abdominal: General: Abdomen is flat. Bowel sounds are normal. Palpations: Abdomen is soft. Musculoskeletal: Right lower leg: Edema present. Left lower leg: Edema present. Skin: General: Skin is warm. Neurological: General: No focal deficit present. Mental Status: He is alert. Mental status is at baseline. Comments: Power b/l LE 3+/4 /5. Left LE mobility limited due to OA knee /hip. DATA: CBC: Recent Labs 12/30/22 2300 WBC 8.3 RBC 4.65 HGB 14.7 HCT 42.5 MCV 91.4 RDW 13.7 PLT 427 BMP: Recent Labs 12/30/22 2300 NA 139 K 4.1 CL 105 CO2 27 BUN 18 CREATININE 0.62* GLUCOSE 90 CALCIUM 9.7 ANIONGAP 7 LIVER PROFILE:No results for input(s): AST, ALT, BILITOT, ALKPHOS, PROT in the last 72 hours. No lab exists for component: LABALBU PT/INR: No results for input(s): PROTIME, INR in the last 72 hours. CARDIAC ENZYMES: Recent Labs 12/30/22 2300 TROPONINI <0.012 Procalcitonin: No results found for: PROCAL Urine Culture: Results for orders placed or performed during the hospital encounter of 02/22/22 Urine culture Specimen: Urine, Clean Catch Result Value Ref Range Urine Culture Normal urogenital alex present COVID-19 PCR: No results for input(s): COVID19 in the last 72 hours. I reviewed: [x] laboratory results [x] radiographic results At the time of today's encounter. Pt was advised of the results. IMPRESSION: SOB- - likely secondary to underlying COPD and pulmonary fibrosis along with pulmonary HTN/right heart failure and RICKY( non compliant with CPAP- does not tolerate it) A/P - EKG- sinus rhythm, RBBB and LAFB, similar to previous EKG - troponin - 1 set negative - BNP - normal - CXR normal - COVID /flu negative Plan: - continue with inhalers - cycle troponin - BD - d dimer, CTA chest if D dimer elevated - pulmonology consult. 2. LE edema - likley venous stasis due to decreased mobility - might have a component of right heart failure /pulm HTN - continue with HCZ - venous duplex. - compression stockings - does not look volume overloaded, BNP- normal. 3. Debility and weakness - due to OA - PT/OT 4. COPD /moderate persistent asthma 5. RICKY 6. HTN Medical Decision Making: - admit to F -Discussed with ED provider and agree with their plan for admission - as above - follow d dimer, troponin and venous duplex. -PT/OT - Lovenox for DVT prophylaxis. -PT/OT eval/increase activity -am labs, replace lytes prn -vitals per routine -home meds as ordered -DVT prophylaxis: [x] Lovenox [] Heparin [] SCDs [x] Encourage ambulation [] Already on Anticoagulation Anticipated Discharge - Date - - Location - - Pending the following - clinical improvement Total time spent (which include face to face and non face to face encounters) : 40 minutes Toxic drug monitoring/narrow therapeutic index drug monitoring : # Drug name : # Route administered : # Method of monitoring : Extended Emergency Contact Information Primary Emergency Contact: Harshil Murguia Mobile Relation: Relative Code status: Prior -see below for additional orders, further recommendations to follow Orders Placed This Encounter Procedures SARS-CoV-2, Flu A/B, and RSV Combo SARS-CoV-2 and Respiratory PCR Panel SARS-CoV-2 and Respiratory PCR Panel XR chest 1 view Basic metabolic panel Magnesium CBC auto differential NT PRO BNP Troponin, with Serial Reflex Troponin I Troponin I Check Pulse Oximetry while ambulating ECG 12 lead Admit to inpatient Please forward a copy of this H&P to the patient's PCP. Thank you. [id number] History and physical note* Jonathan Nickerson MD - 12/31/2022 2:01 AM EDT Images from the original note were not included. Attending History and Physical Admit Date: 12/30/2022 PCP: ROOPA MADERA MD CHIEF COMPLAINT: SOB Difficulty with ambulation Reason for Admission: same. History Obtained From: patient HISTORY OF PRESENT ILLNESS: Doroteo is a 82 y.o. male with past medical history below who presents with chief complaint listed above. Says woke up this morning with SOB, more with exertion. Has chronic cough, not change, not much expectoration. No fever or chills. No chest pain. Has leg swelling which he says is not worse than usual. Has sever OA of knee and hip, more on left limiting his mobility. He has surgery scheduled for leftknee in February. On review of chart, SOB has been there for months and is worked up by cardiology and pulmonology. Recent CT chest , 2-3 months ago with COPD with pulmonary HTN and mild pulmonary fibrotic changes. No abdominal pain, nausea or vomiting. No urinary symptoms . No focal weakness. Past Medical History: Past Medical History: Diagnosis Date Arthritis knees hands Asthma Chronic pain GERD (gastroesophageal reflux disease) Hyperlipidemia Kidney stone 2012 Prostate disease Sleep apnea Thyroid disease Past Surgical History: Past Surgical History: Procedure Laterality Date APPENDECTOMY BACK SURGERY 2013 slipped disc CATARACT EXTRACTION CHOLECYSTECTOMY JOINT REPLACEMENT Right 2014 LITHOTRIPSY 3-4 times OTHER SURGICAL HISTORY hemorroid removed OTHER SURGICAL HISTORY Left 12/19/2017 stent placement, cystoscopy and pyelogram, Laser Lithotripsy SINUS SURGERY Social History: Social History Socioeconomic History Marital status: Single Spouse name: Not on file Number of children: Not on file Years of education: Not on file Highest education level: Not on file Occupational History Not on file Tobacco Use Smoking status: Never Smokeless tobacco: Never Vaping Use Vaping Use: Never used Substance and Sexual Activity Alcohol use: No Drug use: No Sexual activity: Not on file Other Topics Concern Not on file Social History Narrative Not on file Social Determinants of Health Financial Resource Strain: Not on file Food Insecurity: Not on file Transportation Needs: Not on file Physical Activity: Not on file Stress: Not on file Social Connections: Not on file Intimate Partner Violence: Not At Risk (03/23/2022) Humiliation, Afraid, Rape, and Kick questionnaire Fear of Current or Ex-Partner: No Emotionally Abused: No Physically Abused: No Sexually Abused: No Housing Stability: Not on file Family History: Family History Problem Relation Name Age of Onset Heart failure Mother Diabetes Mother Medications Prior to Admission: No current facility-administered medications on file prior to encounter. Current Outpatient Medications on File Prior to Encounter Medication Sig Dispense Refill acetaminophen (Tylenol 8 Hour) 650 MG ER tablet Take 650 mg by mouth every 8 hours as needed. albuterol 108 (90 Base) MCG/ACT inhaler Inhale 2 puffs every 6 hours as needed. alfuzosin ER (Uroxatral) 10 MG 24 hr tablet Take 1 tablet (10 mg) by mouth daily. 90 tablet 3 cyanocobalamin ([employer]S Vitamin B-12) 1000 MCG tablet Take 1,000 mcg by mouth. Dextromethorphan-guaiFENesin (Mucinex DM) 30-600 MG tablet sustained-release 12 hour Take 1 tablet by mouth in the morning and 1 tablet in the evening. 28 tablet 0 finasteride (Proscar) 5 MG tablet Take 1 tablet (5 mg) by mouth daily. 90 tablet 3 fluticasone (Flovent) 110 MCG/ACT inhaler Inhale 2 puffs in the morning and 2 puffs before bedtime. hydroCHLOROthiazide (HYDRODiuril) 25 MG tablet Take 25 mg by mouth every morning. ipratropium (Atrovent) 0.06 % nasal spray Administer 2 sprays into affected nostril(s). levothyroxine (Synthroid, Levoxyl) 50 MCG tablet Take 50 mcg by mouth in the morning. omeprazole (PriLOSEC) [address] capsule Take 20 mg by mouth in the morning. pantoprazole (ProtoNix) 40 MG EC tablet TAKE 1 TABLET BY MOUTH ONCE DAILY. 30 MINUTES BEFORE EATING. polyethylene glycol, PEG, 3350 (Glycolax) 17 GM/SCOOP powder Take by mouth. simvastatin (Zocor) 20 MG tablet Take 20 mg by mouth in the morning. Allergies: Allergies Allergen Reactions Allopurinol Unknown Erythromycin Unknown Penicillins Unknown Sulfa Antibiotics Unknown Tetracyclines & Related Unknown Levofloxacin Other jittery Ciprofloxacin Unknown Paroxetine Other Fatigue REVIEW OF SYSTEMS: 10 point ROS done, negative other than HPI Vitals: BP (!) 150/83 (BP Location: Left arm, Patient Position: Lying) Pulse 65 Temp 36.9 C (98.5 F) (Oral) Resp 20 SpO2 98% BMI Classification: Pulse Ox: SpO2 Av % Min: 98 % Max: 98 % Supplemental O2: PHYSICAL EXAM: Physical Exam Constitutional: Appearance: Normal appearance. Cardiovascular: Rate and Rhythm: Normal rate and regular rhythm. Pulses: Normal pulses. Heart sounds: Normal heart sounds. Pulmonary: Effort: Pulmonary effort is normal. Breath sounds: Normal breath sounds. Abdominal: General: Abdomen is flat. Bowel sounds are normal. Palpations: Abdomen is soft. Musculoskeletal: Right lower leg: Edema present. Left lower leg: Edema present. Skin: General: Skin is warm. Neurological: General: No focal deficit present. Mental Status: He is alert. Mental status is at baseline. Comments: Power b/l LE 3+/4 /5. Left LE mobility limited due to OA knee /hip. DATA: CBC: Recent Labs 12/30/222299 WBC 8.3 RBC 4.65 HGB 14.7 HCT 42.5 MCV 91.4 RDW 13.7 PLT 427 BMP: Recent Labs 12/30/220 NA 139 K 4.1 CL 105 CO2 27 BUN 18 CREATININE 0.62* GLUCOSE 90 CALCIUM 9.7 ANIONGAP 7 LIVER PROFILE:No results for input(s): AST, ALT, BILITOT, ALKPHOS, PROT in the last 72 hours. No lab exists for component: LABALBU PT/INR: No results for input(s): PROTIME, INR in the last 72 hours. CARDIAC ENZYMES: Recent Labs 12/30/222299 TROPONINI <0.012 Procalcitonin: No results found for: PROCAL Urine Culture: Results for orders placed or performed during the hospital encounter of 02/22/22 Urine culture Specimen: Urine, Clean Catch Result Value Ref Range Urine Culture Normal urogenital alex present COVID-19 PCR: No results for input(s): COVID19 in the last 72 hours. I reviewed: [x] laboratory results [x] radiographic results At the time of today's encounter. Pt was advised of the results. IMPRESSION: SOB- - likely secondary to underlying COPD and pulmonary fibrosis along with pulmonary HTN/right heart failure and RICKY( non compliant with CPAP- does not tolerate it) A/P - EKG- sinus rhythm, RBBB and LAFB, similar to previous EKG - troponin - 1 set negative - BNP - normal - CXR normal - COVID /flu negative Plan: - continue with inhalers - cycle troponin - BD - d dimer, CTA chest if D dimer elevated - pulmonology consult. 2. LE edema - likley venous stasis due to decreased mobility - might have a component of right heart failure /pulm HTN - continue with HCZ - venous duplex. - compression stockings - does not look volume overloaded, BNP- normal. 3. Debility and weakness - due to OA - PT/OT 4. COPD /moderate persistent asthma 5. RICKY 6. HTN Medical Decision Making: - admit to F -Discussed with ED provider and agree with their plan for admission - as above - follow d dimer, troponin and venous duplex. -PT/OT - Lovenox for DVT prophylaxis. -PT/OT eval/increase activity -am labs, replace lytes prn -vitals per routine -home meds as ordered -DVT prophylaxis: [x] Lovenox [] Heparin [] SCDs [x] Encourage ambulation [] Already on Anticoagulation Anticipated Discharge - Date - - Location - - Pending the following - clinical improvement Total time spent (which include face to face and non face to face encounters) : 40 minutes Toxic drug monitoring/narrow therapeutic index drug monitoring : # Drug name : # Route administered : # Method of monitoring : Extended Emergency Contact Information Primary Emergency Contact: Harshil Murguia Mobile Relation: Relative Code status: Prior -see below for additional orders, further recommendations to follow Orders Placed This Encounter Procedures SARS-CoV-2, Flu A/B, and RSV Combo SARS-CoV-2 and Respiratory PCR Panel SARS-CoV-2 and Respiratory PCR Panel XR chest 1 view Basic metabolic panel Magnesium CBC auto differential NT PRO BNP Troponin, with Serial Reflex Troponin I Troponin I Check Pulse Oximetry while ambulating ECG 12 lead Admit to inpatient Please forward a copy of this H&P to the patient's PCP. Thank you. documented in this [facility]09-16-2023 Emergency department Note* Estela Rodriguez RN - 12/30/2022 10:19 PM EDT Bed: 12 Expected date: 12/30/22 Expected time: Means of arrival: Comments: Aaron Rodriguez RN 12/30/22 [id number] [id number] Emergency department Note* Tara Frazier MD - 12/30/2022 10:19 PM EDT EMERGENCY DEPARTMENT ENCOUNTER Pt Name: Doroteo Gong Birthdate 1940 Date of evaluation: 12/30/2022 ED Provider: Tara Frazier MD CHIEF COMPLAINT Chief Complaint Patient presents with Shortness of Breath HISTORY OF PRESENT ILLNESS (Location/Symptom, Timing/Onset, Context/Setting, Quality, Duration, Modifying Factors, Severity) Note limiting factors. I wore appropriate PPE for the entirety of this encounter. HPI Doroteo Gong is a 82 y.o. male has medical history significant for GERD, kidney disease, asthma,and sleep apnea who presents to the emergency department for evaluation for shortness of breath. Patient states has been having shortness of breath for the last few days with difficulty ambulating. He states the difficulty ambulating is due to arthritis in his knee and hip on the left side. He states he has also been having chills. He denies fever. He denies sick contacts. He also denies chest pain, abdominal pain or nausea and vomiting. Patient states tonight he could hardly catch his breath. Lower extremity edema but states that this is chronic. Nursing Notes were reviewed. Limitations to history: None Outside historians: None REVIEW OF SYSTEMS Review of Systems Constitutional: Negative for chills and fever. HENT: Negative for ear pain and sore throat. Eyes: Negative for pain and visual disturbance. Respiratory: Positive for shortness of breath. Negative for cough. Cardiovascular: Positive for leg swelling. Negative for chest pain and palpitations. Gastrointestinal: Negative for abdominal pain, nausea and vomiting. Genitourinary: Negative for dysuria and hematuria. Musculoskeletal: Positive for arthralgias (left knee and hip). Negative for back pain. Skin: Negative for color change and rash. Neurological: Negative for seizures and syncope. Psychiatric/Behavioral: Negative for confusion. All other systems reviewed and are negative. PAST MEDICAL HISTORY Past Medical History: Diagnosis Date Arthritis knees hands Asthma Chronic pain GERD (gastroesophageal reflux disease) Hyperlipidemia Kidney stone 2013 Prostate disease Sleep apnea Thyroid disease SURGICAL HISTORY Past Surgical History: Procedure Laterality Date APPENDECTOMY BACK SURGERY 2014 slipped disc CATARACT EXTRACTION CHOLECYSTECTOMY JOINT REPLACEMENT Right 2014 LITHOTRIPSY 3-4 times OTHER SURGICAL HISTORY hemorroid removed OTHER SURGICAL HISTORY Left 12/19/2017 stent placement, cystoscopy and pyelogram, Laser Lithotripsy SINUS SURGERY CURRENT MEDICATIONS Previous Medications ACETAMINOPHEN (TYLENOL 8 HOUR) 650 MG ER TABLET Take 650 mg by mouth every 8 hours as needed. ALBUTEROL 108 (90 BASE) MCG/ACT INHALER Inhale 2 puffs every 6 hours as needed. ALFUZOSIN ER (UROXATRAL) 10 MG 24 HR TABLET Take 1 tablet (10 mg) by mouth daily. CYANOCOBALAMIN (CVS VITAMIN B-12) 1000 MCG TABLET Take 1,000 mcg by mouth. DEXTROMETHORPHAN-GUAIFENESIN (MUCINEX DM) 30-600 MG TABLET SUSTAINED-RELEASE 12 HOUR Take 1 tablet by mouth in the morning and 1 tablet in the evening. FINASTERIDE (PROSCAR) 5 MG TABLET Take 1 tablet (5 mg) by mouth daily. FLUTICASONE (FLOVENT) 110 MCG/ACT INHALER Inhale 2 puffs in the morning and 2 puffs before bedtime. HYDROCHLOROTHIAZIDE (HYDRODIURIL) 25 MG TABLET Take 25 mg by mouth every morning. IPRATROPIUM (ATROVENT) 0.06 % NASAL SPRAY Administer 2 sprays into affected nostril(s). LEVOTHYROXINE (SYNTHROID, LEVOXYL) 50 MCG TABLET Take 50 mcg by mouth in the morning. OMEPRAZOLE (PRILOSEC) [address] CAPSULE Take 20 mg by mouth in the morning. PANTOPRAZOLE (PROTONIX) 40 MG EC TABLET TAKE 1 TABLET BY MOUTH ONCE DAILY. 30 MINUTES BEFORE EATING. POLYETHYLENE GLYCOL, PEG, 3350 (GLYCOLAX) 17 GM/SCOOP POWDER Take by mouth. SIMVASTATIN (ZOCOR) 20 MG TABLET Take 20 mg by mouth in the morning. ALLERGIES Allopurinol, Erythromycin, Penicillins, Sulfa antibiotics, Tetracyclines & related, Levofloxacin, Ciprofloxacin, and Paroxetine FAMILY HISTORY Family History Problem Relation Name Age of Onset Heart failure Mother Diabetes Mother SOCIAL HISTORY Social History Socioeconomic History Marital status: Single Tobacco Use Smoking status: Never Smokeless tobacco: Never Vaping Use Vaping Use: Never used Substance and Sexual Activity Alcohol use: No Drug use: No Social Determinants of Health Intimate Partner Violence: Not At Risk (03/23/2022) Humiliation, Afraid, Rape, and Kick questionnaire Fear of Current or Ex-Partner: No Emotionally Abused: No Physically Abused: No Sexually Abused: No SCREENINGS PHYSICAL EXAM ED Triage Vitals [12/30/222226] Temp Heart Rate Resp BP 36.9 C (98.5 F) 65 20 (!) 150/83 SpO2 Temp Source Heart Rate Source Patient Position 98 % Oral Monitor Lying BP Location FiO2 (%) Left arm -- Physical Exam Vitals and nursing note reviewed. Constitutional: General: He is not in acute distress. Appearance: He is well-developed. He is not ill-appearing. HENT: Head: Normocephalic and atraumatic. Eyes: Conjunctiva/sclera: Conjunctivae normal. Cardiovascular: Rate and Rhythm: Normal rate and regular rhythm. Heart sounds: No murmur heard. Pulmonary: Effort: Pulmonary effort is normal. No respiratory distress. Breath sounds: Examination of the right-lower field reveals decreased breath sounds. Examination ofthe left-lower field reveals decreased breath sounds. Decreased breath sounds present. Chest: Chest wall: No tenderness. Abdominal: Palpations: Abdomen is soft. Tenderness: There is no abdominal tenderness. Musculoskeletal: General: No swelling. Cervical back: Neck supple. Skin: General: Skin is warm and dry. Capillary Refill: Capillary refill takes less than 2 seconds. Neurological: Mental Status: He is alert. Psychiatric: Mood and Affect: Mood normal. DIAGNOSTIC RESULTS RADIOLOGY (Per Emergency Physician): Interpretation per the Radiologist below, if available at the time of this note: XR chest 1 view Final Result 1. No acute findings. Report Dictated on Electronically Signed By: Michele Briseno MD Electronically Signed Date/Time: 12/30/2022 10:45 PM EDT LABS: Labs Reviewed BASIC METABOLIC PANEL - Abnormal Result Value SODIUM 139 POTASSIUM 4.1 CHLORIDE 105 CARBON DIOXIDE 27 UREA NITROGEN 18 CREATININE 0.62 (*) GLUCOSE 90 CALCIUM 9.7 ANION GAP 7 eGFR >90.0 CBC WITH AUTO DIFFERENTIAL - Abnormal Auto WBC 8.3 RBC 4.65 Hemoglobin 14.7 Hematocrit 42.5 MCV 91.4 MCH 31.6 MCHC 34.6 RDW 13.7 Platelets 427 MPV 7.7 nRBC 0.1 Neutrophils Relative 50.7 Lymphocytes Relative 31.0 Monocytes Relative 10.6 (*) Eosinophils Relative 6.5 (*) Basophils Relative 1.2 Neutrophils Absolute 4.2 Lymphocytes Absolute 2.6 Monocytes Absolute 0.9 (*) Eosinophils Absolute 0.5 Basophils Absolute 0.1 SARS-COV-2, FLU A/B, AND RSV COMBO - Normal SARS-CoV-2 Not Detected Respiratory Syncytial Virus Not Detected Influenza A Not Detected Influenza B Not Detected Narrative: Methodology: real-time, RT-PCR The SARS-CoV-2, Flu A/B, and RSV Combo assay is intended for in vitro diagnostic use under the FDA Emergency Use Authorization (EUA). This test has not been FDA cleared or approved. In compliance with this authorization, please visit www.fda.gov/media/065672/download or www.fda.gov/media/176844/download to access the applicable information sheets. MAGNESIUM - Normal MAGNESIUM 2.1 NT PRO BNP - Normal NT PRO BNP 260 TROPONIN, WITH SERIAL REFLEX - Normal TROPONIN I <0.012 Narrative: Patients with high levels of Biotin oral intake (ie >5 mg/day) may have falsely decreased Troponin levels. SARS-COV-2 AND RESPIRATORY PCR PANEL TROPONIN I TROPONIN I All other labs were within normal range or not returned as of this dictation. EMERGENCY DEPARTMENT COURSE and DIFFERENTIAL DIAGNOSIS/MDM: Vitals: Vitals: 12/30/22 2227 BP: (!) 150/83 BP Location: Left arm Patient Position: Lying Pulse: 65 Resp: 20 Temp: 36.9 C (98.5 F) TempSrc: Oral SpO2: 98% Medications acetaminophen (Tylenol) tablet 1,000 mg (1,000 mg Oral Given 12/31/22 0044) ED Course as of 12/31/22 0125 Sun Dec 31, 2022 0046 EKG sinus rhythm with a rate of 63. Patient with no ST elevations or depressions concerning for STEMI. EKG with left axis deviation. Intervals within normal limits. EKG with no significant change from previous EKG from 12/12/2022. EKG interpreted by myself. [PK] ED Course User Index [PK] Tara Frazier MD Diagnoses as of 12/31/22 012 Shortness of breath Presenting for evaluation for shortness of breath with lower extremity edema. Presentation is concerning for fluid overload versus dependent edema versus respiratory infection versus asthma exacerbation. Patient unlikely with pneumonia. A cardiac etiology is unlikely. Work-up in the department with no leukocytosis, no anemia, no electrolyte abnormalities, no renal function impairment, BNP of 260, negative troponin, EKG as noted above, with a negative COVID, RSV and influenza test. Patient with knee pain. Received acetaminophen 1000 mg. Obtained a chest x-ray on the patient. Chest x-ray revealed no infiltrates or consolidations. Patient with no effusions. Mild costophrenic angle blunting appreciated on the left side. Attempted to ambulate the patient in the emergency department unsuccessfully. Patient cannot bear weight even with max assist. Discussed lab and imaging results with the patient. Discussed with the patient plan for admission for PT OT evaluation and further evaluation and management of shortness of breath. He verbalized understanding of information given and agreed to plan. Was discussed with the inpatient admitting provider who accepted patient for admission. Was admitted in stable condition. Given patient with chronic arthritis that is already known and no acute traumas or worsening of pain to the left lower extremity with replacement surgery is scheduled in February in May I do notfeel the patient at this time requires emergent imaging of his left lower extremity. As a result noimaging obtained in the emergency department. PROCEDURES: Unless otherwise noted below, none Procedures FINAL IMPRESSION 1. Shortness of breath DISPOSITION Admit 12/31/2022 01:25:06 AM PATIENT REFERRED TO: No follow-up provider specified. DISCHARGE MEDICATIONS: New Prescriptions No medications on file (Comment: Please note this report has been produced using speech recognition software and may contain errors related to that system including errors in grammar, punctuation, and spelling, as well as words and phrases that may be inappropriate. If there are any questions or concerns please feel freeto contact the dictating provider for clarification.) Tara Frazier MD (electronically signed) Emergency Medicine Provider Tara Frazier MD 12/31/22 0125 * Logan Aranda RN - 12/30/2022 10:19 PM EDT From home by EMS for c/o difficulty breathing. Hx asthma, did not use inhaler. States cool air outside when put in ambulance helped. No distress upon arrival. VSS * Estela Rodriguez RN - 12/30/2022 10:19 PM EDT Bed: 12 Expected date: 12/30/22 Expected time: Means of arrival: Comments: Aaron Rodriguez RN 12/30/22 3120 documented in this [facility]09-16-2023 Emergency department Triage note* Logan Aranda RN - 12/30/2022 10:19 PM EDT From home by EMS for c/o difficulty breathing. Hx asthma, did not use inhaler. States cool air outside when put in ambulance helped. No distress upon arrival. [id number] Emergency department Note* Tara Frazier MD - 12/30/2022 10:19 PM EDT EMERGENCY DEPARTMENT ENCOUNTER Pt Name: Doroteo Gong Birthdate 1940 Date of evaluation: 12/30/2022 ED Provider: Tara Frazire MD CHIEF COMPLAINT Chief Complaint Patient presents with Shortness of Breath HISTORY OF PRESENT ILLNESS (Location/Symptom, Timing/Onset, Context/Setting, Quality, Duration, Modifying Factors, Severity) Note limiting factors. I wore appropriate PPE for the entirety of this encounter. HPI Doroteo Gong is a 82 y.o. male has medical history significant for GERD, kidney disease, asthma,and sleep apnea who presents to the emergency department for evaluation for shortness of breath. Patient states has been having shortness of breath for the last few days with difficulty ambulating. He states the difficulty ambulating is due to arthritis in his knee and hip on the left side. He states he has also been having chills. He denies fever. He denies sick contacts. He also denies chest pain, abdominal pain or nausea and vomiting. Patient states tonight he could hardly catch his breath. Lower extremity edema but states that this is chronic. Nursing Notes were reviewed. Limitations to history: None Outside historians: None REVIEW OF SYSTEMS Review of Systems Constitutional: Negative for chills and fever. HENT: Negative for ear pain and sore throat. Eyes: Negative for pain and visual disturbance. Respiratory: Positive for shortness of breath. Negative for cough. Cardiovascular: Positive for leg swelling. Negative for chest pain and palpitations. Gastrointestinal: Negative for abdominal pain, nausea and vomiting. Genitourinary: Negative for dysuria and hematuria. Musculoskeletal: Positive for arthralgias (left knee and hip). Negative for back pain. Skin: Negative for color change and rash. Neurological: Negative for seizures and syncope. Psychiatric/Behavioral: Negative for confusion. All other systems reviewed and are negative. PAST MEDICAL HISTORY Past Medical History: Diagnosis Date Arthritis knees hands Asthma Chronic pain GERD (gastroesophageal reflux disease) Hyperlipidemia Kidney stone 2012 Prostate disease Sleep apnea Thyroid disease SURGICAL HISTORY Past Surgical History: Procedure Laterality Date APPENDECTOMY BACK SURGERY 2014 slipped disc CATARACT EXTRACTION CHOLECYSTECTOMY JOINT REPLACEMENT Right 2014 LITHOTRIPSY 3-4 times OTHER SURGICAL HISTORY hemorroid removed OTHER SURGICAL HISTORY Left 12/19/2017 stent placement, cystoscopy and pyelogram, Laser Lithotripsy SINUS SURGERY CURRENT MEDICATIONS Previous Medications ACETAMINOPHEN (TYLENOL 8 HOUR) 650 MG ER TABLET Take 650 mg by mouth every 8 hours as needed. ALBUTEROL 108 (90 BASE) MCG/ACT INHALER Inhale 2 puffs every 6 hours as needed. ALFUZOSIN ER (UROXATRAL) 10 MG 24 HR TABLET Take 1 tablet (10 mg) by mouth daily. CYANOCOBALAMIN ([employer]S VITAMIN B-12) 1000 MCG TABLET Take 1,000 mcg by mouth. DEXTROMETHORPHAN-GUAIFENESIN (MUCINEX DM) 30-600 MG TABLET SUSTAINED-RELEASE 12 HOUR Take 1 tablet by mouth in the morning and 1 tablet in the evening. FINASTERIDE (PROSCAR) 5 MG TABLET Take 1 tablet (5 mg) by mouth daily. FLUTICASONE (FLOVENT) 110 MCG/ACT INHALER Inhale 2 puffs in the morning and 2 puffs before bedtime. HYDROCHLOROTHIAZIDE (HYDRODIURIL) 25 MG TABLET Take 25 mg by mouth every morning. IPRATROPIUM (ATROVENT) 0.06 % NASAL SPRAY Administer 2 sprays into affected nostril(s). LEVOTHYROXINE (SYNTHROID, LEVOXYL) 50 MCG TABLET Take 50 mcg by mouth in the morning. OMEPRAZOLE (PRILOSEC) [address] CAPSULE Take 20 mg by mouth in the morning. PANTOPRAZOLE (PROTONIX) 40 MG EC TABLET TAKE 1 TABLET BY MOUTH ONCE DAILY. 30 MINUTES BEFORE EATING. POLYETHYLENE GLYCOL, PEG, 3350 (GLYCOLAX) 17 GM/SCOOP POWDER Take by mouth. SIMVASTATIN (ZOCOR) 20 MG TABLET Take 20 mg by mouth in the morning. ALLERGIES Allopurinol, Erythromycin, Penicillins, Sulfa antibiotics, Tetracyclines & related, Levofloxacin, Ciprofloxacin, and Paroxetine FAMILY HISTORY Family History Problem Relation Name Age of Onset Heart failure Mother Diabetes Mother SOCIAL HISTORY Social History Socioeconomic History Marital status: Single Tobacco Use Smoking status: Never Smokeless tobacco: Never Vaping Use Vaping Use: Never used Substance and Sexual Activity Alcohol use: No Drug use: No Social Determinants of Health Intimate Partner Violence: Not At Risk (03/23/2022) Humiliation, Afraid, Rape, and Kick questionnaire Fear of Current or Ex-Partner: No Emotionally Abused: No Physically Abused: No Sexually Abused: No SCREENINGS PHYSICAL EXAM ED Triage Vitals [12/30/227] Temp Heart Rate Resp BP 36.9 C (98.5 F) 65 20 (!) 150/83 SpO2 Temp Source Heart Rate Source Patient Position 98 % Oral Monitor Lying BP Location FiO2 (%) Left arm -- Physical Exam Vitals and nursing note reviewed. Constitutional: General: He is not in acute distress. Appearance: He is well-developed. He is not ill-appearing. HENT: Head: Normocephalic and atraumatic. Eyes: Conjunctiva/sclera: Conjunctivae normal. Cardiovascular: Rate and Rhythm: Normal rate and regular rhythm. Heart sounds: No murmur heard. Pulmonary: Effort: Pulmonary effort is normal. No respiratory distress. Breath sounds: Examination of the right-lower field reveals decreased breath sounds. Examination ofthe left-lower field reveals decreased breath sounds. Decreased breath sounds present. Chest: Chest wall: No tenderness. Abdominal: Palpations: Abdomen is soft. Tenderness: There is no abdominal tenderness. Musculoskeletal: General: No swelling. Cervical back: Neck supple. Skin: General: Skin is warm and dry. Capillary Refill: Capillary refill takes less than 2 seconds. Neurological: Mental Status: He is alert. Psychiatric: Mood and Affect: Mood normal. DIAGNOSTIC RESULTS RADIOLOGY (Per Emergency Physician): Interpretation per the Radiologist below, if available at the time of this note: XR chest 1 view Final Result 1. No acute findings. Report Dictated on Electronically Signed By: Michele Briseno MD Electronically Signed Date/Time: 12/30/2022 10:45 PM EDT LABS: Labs Reviewed BASIC METABOLIC PANEL - Abnormal Result Value SODIUM 139 POTASSIUM 4.1 CHLORIDE 105 CARBON DIOXIDE 27 UREA NITROGEN 18 CREATININE 0.62 (*) GLUCOSE 90 CALCIUM 9.7 ANION GAP 7 eGFR >90.0 CBC WITH AUTO DIFFERENTIAL - Abnormal Auto WBC 8.3 RBC 4.65 Hemoglobin 14.7 Hematocrit 42.5 MCV 91.4 MCH 31.6 MCHC 34.6 RDW 13.7 Platelets 427 MPV 7.7 nRBC 0.1 Neutrophils Relative 50.7 Lymphocytes Relative 31.0 Monocytes Relative 10.6 (*) Eosinophils Relative 6.5 (*) Basophils Relative 1.2 Neutrophils Absolute 4.2 Lymphocytes Absolute 2.6 Monocytes Absolute 0.9 (*) Eosinophils Absolute 0.5 Basophils Absolute 0.1 SARS-COV-2, FLU A/B, AND RSV COMBO - Normal SARS-CoV-2 Not Detected Respiratory Syncytial Virus Not Detected Influenza A Not Detected Influenza B Not Detected Narrative: Methodology: real-time, RT-PCR The SARS-CoV-2, Flu A/B, and RSV Combo assay is intended for in vitro diagnostic use under the FDA Emergency Use Authorization (EUA). This test has not been FDA cleared or approved. In compliance with this authorization, please visit www.fda.gov/media/841255/download or www.fda.gov/media/383831/download to access the applicable information sheets. MAGNESIUM - Normal MAGNESIUM 2.1 NT PRO BNP - Normal NT PRO BNP 260 TROPONIN, WITH SERIAL REFLEX - Normal TROPONIN I <0.012 Narrative: Patients with high levels of Biotin oral intake (ie >5 mg/day) may have falsely decreased Troponin levels. SARS-COV-2 AND RESPIRATORY PCR PANEL TROPONIN I TROPONIN I All other labs were within normal range or not returned as of this dictation. EMERGENCY DEPARTMENT COURSE and DIFFERENTIAL DIAGNOSIS/MDM: Vitals: Vitals: 12/30/22 2227 BP: (!) 150/83 BP Location: Left arm Patient Position: Lying Pulse: 65 Resp: 20 Temp: 36.9 C (98.5 F) TempSrc: Oral SpO2: 98% Medications acetaminophen (Tylenol) tablet 1,000 mg (1,000 mg Oral Given 12/31/22 0044) ED Course as of 12/31/22124 [place] Dec 31, 2022 004 EKG sinus rhythm with a rate of 63. Patient with no ST elevations or depressions concerning for STEMI. EKG with left axis deviation. Intervals within normal limits. EKG with no significant change from previous EKG from 12/12/2022. EKG interpreted by myself. [PK] ED Course User Index [PK] Tara Frazier MD Diagnoses as of 12/31/22 0125 Shortness of breath Presenting for evaluation for shortness of breath with lower extremity edema. Presentation is concerning for fluid overload versus dependent edema versus respiratory infection versus asthma exacerbation. Patient unlikely with pneumonia. A cardiac etiology is unlikely. Work-up in the department with no leukocytosis, no anemia, no electrolyte abnormalities, no renal function impairment, BNP of 260, negative troponin, EKG as noted above, with a negative COVID, RSV and influenza test. Patient with knee pain. Received acetaminophen 1000 mg. Obtained a chest x-ray on the patient. Chest x-ray revealed no infiltrates or consolidations. Patient with no effusions. Mild costophrenic angle blunting appreciated on the left side. Attempted to ambulate the patient in the emergency department unsuccessfully. Patient cannot bear weight even with max assist. Discussed lab and imaging results with the patient. Discussed with the patient plan for admission for PT OT evaluation and further evaluation and management of shortness of breath. He verbalized understanding of information given and agreed to plan. Was discussed with the inpatient admitting provider who accepted patient for admission. Was admitted in stable condition. Given patient with chronic arthritis that is already known and no acute traumas or worsening of pain to the left lower extremity with replacement surgery is scheduled in February in May I do notfeel the patient at this time requires emergent imaging of his left lower extremity. As a result noimaging obtained in the emergency department. PROCEDURES: Unless otherwise noted below, none Procedures FINAL IMPRESSION 1. Shortness of breath DISPOSITION Admit 12/31/2022 01:25:06 AM PATIENT REFERRED TO: No follow-up provider specified. DISCHARGE MEDICATIONS: New Prescriptions No medications on file (Comment: Please note this report has been produced using speech recognition software and may contain errors related to that system including errors in grammar, punctuation, and spelling, as well as words and phrases that may be inappropriate. If there are any questions or concerns please feel freeto contact the dictating provider for clarification.) Tara Frazier MD (electronically signed) Emergency Medicine Provider Tara Frazier MD 12/31/22 0125 [id number] Emergency [facility] Note* Omayra Hidalgo RN - 12/13/2022 7:45 AM EDT Pt was not able to leave in wheelchair due to not able to go up his home stairs. Physicians called to change wheelchair into a cot. Omayra Hidalgo RN 12/13/22 0746 [id number] Emergency [facility] Note* Omayra Hidalgo RN - 12/13/2022 7:45 AM EDT Pt was not able to leave in wheelchair due to not able to go up his home stairs. Physicians called to change wheelchair into a cot. Omayra Hidalgo RN 12/13/22 0746 * Cady Marshall RN - 12/13/2022 2:43 AM EDT Pt does not have transport home at this time. Licensed Weigher called physicians for ambulette/WC transport home with 0700 ETA to ED for shrimp picker. Cady Marshall RN 12/13/22 0244 * Cady Marshall RN - 12/13/2022 12:22 AM EDT Portable XR at bedside Cady Marshall RN 12/13/22 0022 * Kathy Daly MD - 12/12/2022 11:20 PM EDT EMERGENCY DEPARTMENT ENCOUNTER Pt Name: Doroteo K Beltran Birthdate 1940 Date of evaluation: 12/12/2022 ED Provider: Kathy Daly MD CHIEF COMPLAINT Chief Complaint Patient presents with Weakness, Gen Fall HISTORY OF PRESENT ILLNESS (Location/Symptom, Timing/Onset, Context/Setting, Quality, Duration, Modifying Factors, Severity) Note limiting factors. I wore appropriate PPE for the entirety of this encounter. HPI Doroteo Gong is a 82 y.o. who presents to the emergency department for evaluation after an incident where his walker got too far in front of him leading to a situation where he had to lower himself down onto his knees, then to his bottom onto his kitchen floor. Patient states he was too weak to get up on his own and had to call EMS for a lift assist. They subsequently brought him into the ED for evaluation. Patient states he feels like he has been getting somewhat weaker than baseline over the last week. He states his medication frequently cause some tremors for which she has been prescribed B12 that he takes twice a day. He states he was overdue for his evening dose and believes that having a slight uptake in his tremors after not taking his B12 may have also contributed. He denies any injuries in the fall. He estimates he was on the floor for approximately 15 minutes before EMS helped him off of the ground. He denies any chest pain, palpitations, lightheadedness, or other prodromal symptoms, strictly states that his walker got out too far in front of him. He does report some worsening arthritis pain in the left knee and hip. He states that he has been advised to have replacements of both of these joints but he has not yet. Denies any fever, chills, nausea, vomiting. No change in bowel or bladder habits. No change in appetite. Nursing Notes were reviewed. Limitations to history: None Outside historians: None REVIEW OF SYSTEMS Review of Systems All other systems reviewed and are negative. Pertinent positives and negatives as per HPI. PAST MEDICAL HISTORY Past Medical History: Diagnosis Date Arthritis knees hands Asthma Chronic pain GERD (gastroesophageal reflux disease) Hyperlipidemia Kidney stone 2012 Prostate disease Sleep apnea Thyroid disease SURGICAL HISTORY Past Surgical History: Procedure Laterality Date APPENDECTOMY BACK SURGERY 2014 slipped disc CATARACT EXTRACTION CHOLECYSTECTOMY JOINT REPLACEMENT Right 2014 LITHOTRIPSY 3-4 times OTHER SURGICAL HISTORY hemorroid removed OTHER SURGICAL HISTORY Left 12/19/2017 stent placement, cystoscopy and pyelogram, Laser Lithotripsy SINUS SURGERY CURRENT MEDICATIONS Previous Medications ACETAMINOPHEN (TYLENOL 8 HOUR) 650 MG ER TABLET Take 650 mg by mouth every 8 hours as needed. ALBUTEROL 108 (90 BASE) MCG/ACT INHALER Inhale 2 puffs every 6 hours as needed. ALFUZOSIN ER (UROXATRAL) 10 MG 24 HR TABLET Take 1 tablet (10 mg) by mouth daily. CYANOCOBALAMIN ([employer]S VITAMIN B-12) 1000 MCG TABLET Take 1,000 mcg by mouth. DEXTROMETHORPHAN-GUAIFENESIN (MUCINEX DM) 30-600 MG TABLET SUSTAINED-RELEASE 12 HOUR Take 1 tablet by mouth in the morning and 1 tablet in the evening. FINASTERIDE (PROSCAR) 5 MG TABLET Take 1 tablet (5 mg) by mouth daily. FLUTICASONE (FLOVENT) 110 MCG/ACT INHALER Inhale 2 puffs in the morning and 2 puffs before bedtime. HYDROCHLOROTHIAZIDE (HYDRODIURIL) 25 MG TABLET Take 25 mg by mouth every morning. IPRATROPIUM (ATROVENT) 0.06 % NASAL SPRAY Administer 2 sprays into affected nostril(s). LEVOTHYROXINE (SYNTHROID, LEVOXYL) 50 MCG TABLET Take 50 mcg by mouth in the morning. OMEPRAZOLE (PRILOSEC) [address] CAPSULE Take 20 mg by mouth in the morning. PANTOPRAZOLE (PROTONIX) 40 MG EC TABLET TAKE 1 TABLET BY MOUTH ONCE DAILY. 30 MINUTES BEFORE EATING. POLYETHYLENE GLYCOL, PEG, 3350 (GLYCOLAX) 17 GM/SCOOP POWDER Take by mouth. SIMVASTATIN (ZOCOR) 20 MG TABLET Take 20 mg by mouth in the morning. ALLERGIES Allopurinol, Erythromycin, Penicillins, Sulfa antibiotics, Tetracyclines & related, Levofloxacin, Ciprofloxacin, and Paroxetine FAMILY HISTORY Family History Problem Relation Name Age of Onset Heart failure Mother Diabetes Mother SOCIAL HISTORY Social History Socioeconomic History Marital status: Single Tobacco Use Smoking status: Never Smokeless tobacco: Never Vaping Use Vaping Use: Never used Substance and Sexual Activity Alcohol use: No Drug use: No Social Determinants of Health Intimate Partner Violence: Not At Risk (03/23/2022) Humiliation, Afraid, Rape, and Kick questionnaire Fear of Current or Ex-Partner: No Emotionally Abused: No Physically Abused: No Sexually Abused: No SCREENINGS [place] Coma Scale Best Eye Response: Spontaneous Best Verbal Response: Oriented Best Motor Response: Follows commands [place] Coma Scale Score: 15 PHYSICAL EXAM ED Triage Vitals [12/12/22 2322] Temp Heart Rate Resp BP 36.6 C (97.9 F) 71 17 (!) 155/88 SpO2 Temp Source Heart Rate Source Patient Position 100 % Oral Monitor Sitting BP Location FiO2 (%) Left arm -- Physical Exam Vitals and nursing note reviewed. Constitutional: General: He is not in acute distress. Appearance: Normal appearance. He is not ill-appearing or diaphoretic. HENT: Head: Normocephalic and atraumatic. Right Ear: Tympanic membrane normal. Left Ear: Tympanic membrane normal. Nose: Nose normal. No congestion or rhinorrhea. Eyes: General: No scleral icterus. Extraocular Movements: Extraocular movements intact. Conjunctiva/sclera: Conjunctivae normal. Pupils: Pupils are equal, round, and reactive to light. Cardiovascular: Rate and Rhythm: Normal rate and regular rhythm. Pulses: Normal pulses. Heart sounds: Normal heart sounds. Pulmonary: Effort: Pulmonary effort is normal. No respiratory distress. Breath sounds: Normal breath sounds. Abdominal: General: There is no distension. Palpations: Abdomen is soft. Tenderness: There is no abdominal tenderness. There is no guarding. Musculoskeletal: General: No swelling or deformity. Normal range of motion. Cervical back: Normal range of motion and neck supple. No tenderness. Skin: General: Skin is warm and dry. Capillary Refill: Capillary refill takes less than 2 seconds. Neurological: General: No focal deficit present. Mental Status: He is alert and oriented to person, place, and time. Psychiatric: Mood and Affect: Mood normal. Behavior: Behavior normal. DIAGNOSTIC RESULTS Procedures/EKG: EKG was reviewed by myself. Physician EKG interpretation can be found in [facility] RADIOLOGY (Per Emergency Physician): Interpretation per the Radiologist below, if available at the time of this note: XR chest 1 view (Results Pending) ED BEDSIDE ULTRASOUND: Performed by ED Physician - none LABS: Labs Reviewed BASIC METABOLIC PANEL - Abnormal Result Value SODIUM 138 POTASSIUM 3.7 CHLORIDE 105 CARBON DIOXIDE 28 UREA NITROGEN 21 (*) CREATININE 0.64 (*) GLUCOSE 87 CALCIUM 9.4 ANION GAP 4 eGFR >90.0 CBC WITH AUTO DIFFERENTIAL - Abnormal Auto WBC 6.4 RBC 4.33 (*) Hemoglobin 13.5 Hematocrit 39.7 (*) MCV 91.7 MCH 31.1 MCHC 33.9 RDW 13.5 Platelets 352 MPV 7.8 nRBC 0.1 Neutrophils Relative 49.8 Lymphocytes Relative 29.8 Monocytes Relative 12.6 (*) Eosinophils Relative 6.6 (*) Basophils Relative 1.2 Neutrophils Absolute 3.2 Lymphocytes Absolute 1.9 Monocytes Absolute 0.8 Eosinophils Absolute 0.4 Basophils Absolute 0.1 TROPONIN I - Normal TROPONIN I <0.012 Narrative: Patients with high levels of Biotin oral intake (ie >5 mg/day) may have falsely decreased Troponin levels. All other labs were within normal range or not returned as of this dictation. EMERGENCY DEPARTMENT COURSE and DIFFERENTIAL DIAGNOSIS/MDM: Vitals: Vitals: 12/12/22 2322 12/12/22 2326 12/12/22 2339 12/13/22 0034 BP: (!) 155/88 (!) 147/85 (!) 154/87 BP Location: Left arm Right arm Right arm Patient Position: Sitting Sitting Sitting Pulse: 71 70 67 Resp: 17 18 15 Temp: 36.6 C (97.9 F) TempSrc: Oral SpO2: 100% 98% 98% Weight: 75.8 kg (167 lb) Height: 1.524 m (5') Patient presents after having to lower himself down onto the kitchen floor earlier in the day whileambulating with his walker. He states the walker got out too far in front of him and he did not want to fall so he lowered himself down to the floor. He was on the floor approximately 15 minutes prior to EMS arrival for a lift assist. Patient did divulge that he was feeling a bit weaker than baseline over the last week and thought this may have contributed to the fall. He also reports frequent tremors which has been told by his physician are likely caused by his medications. He has been prescribed B12 for these. He felt that his tremors also contributed to his event today as he was overdue for his medication and felt his tremors were a little bit worse than baseline. Patient had no other specific complaints. Broad work-up was initiated with CBC, BMP, troponin to search for possible cause of weakness. CBC is unremarkable as is BMP and troponin. EKG per my interpretation shows sinus rhythm with right bundle branch block, left anterior fascicular block, no ST elevations or depressions, no arrhythmia or ectopy, normal intervals, no evidence of acute ischemia or infarction. I did discusswith the patient that I had a concern that being that he lives alone and has been feeling weaker that he may have more events where he is unable to ambulate properly and may fall or fine himself in asituation where he cannot get up and be able to reach anybody for assistance. Patient insists that he is safe to return home and would prefer to follow-up with his primary care physician to see if rosa isela perhaps get some home health care and possibly physical therapy in the home. I for the patient we can help arrange this with a brief admission and evaluation with physical therapy however patientis consistent in his choice to be discharged home. He does have capacity to make medical decisions and does appear otherwise well. Patient discharged back to his home per his wishes. I recommended beckyall his primary care physician, Dr. Madera, first thing in the morning to schedule appropriate follow-up. I also encouraged the patient to return to the emergency department should he change his mind and decide to be admitted for further evaluation to include PT/OT. Diagnoses as of 12/13/22202 Difficulty in walking Generalized weakness Medications acetaminophen (Tylenol) tablet 650 mg (has no administration in time range) REVAL: CRITICAL CARE TIME None CONSULTS: None PROCEDURES: Unless otherwise noted below, none Procedures Patients symptoms are consistent with sepsis, severe sepsis, or septic shock (If yes use .sepsiscoremeasure): Now FINAL IMPRESSION 1. Difficulty in walking 2. Generalized weakness DISPOSITION PATIENT REFERRED TO: No follow-up provider specified. DISCHARGE MEDICATIONS: New Prescriptions No medications on file (Comment: Please note this report has been produced using speech recognition software and may contain errors related to that system including errors in grammar, punctuation, and spelling, as well as words and phrases that may be inappropriate. If there are any questions or concerns please feel freeto contact the dictating provider for clarification.) Kathy Daly MD (electronically signed) Emergency Medicine Provider Kathy Daly MD 12/13/22202 * Sasha Bahena RN - 12/12/2022 11:20 PM EDT Pt present to ED via EMS after calling them to assist him off the floor. Pt was walking with his walker and the walker got too far ahead and patient lowered himself to the ground. Pt c/o increased shakiness and weakness. Denies any injuries. Pt has pain to left hip and knee, chronic pain. * Cady Marshall RN - 12/12/2022 11:20 PM EDT Bed: 13 Expected date: Expected time: Means of arrival: Comments: Ilya Marshall RN 12/12/222320 documented in this [facility]08-30-2023 Emergency department Note* Cady Marshall RN - 12/13/2022 2:43 AM EDT Pt does not have transport home at this time. Licensed Weigher called physicians for ambulette/WC transport home with 0700 ETA to ED for shrimp picker. Cady Marshall RN 12/13/22 0244 [id number]* Cady Marshall RN - 12/13/2022 12:22 AM EDT Portable XR at bedside Cady Marshall RN 12/13/22 0022 [address]22-2226 Emergency department Note* Cady Marshall RN - 12/12/2022 11:20 PM EDT Bed: 13 Expected date: Expected time: Means of arrival: Comments: Ilya Marshall RN 12/12/22 232 [id number] Triage [facility]* Sasha Bahena RN - 12/12/2022 11:20 PM EDT Pt present to ED via EMS after calling them to assist him off the floor. Pt was walking with his walker and the walker got too far ahead and patient lowered himself to the ground. Pt c/o increased shakiness and weakness. Denies any injuries. Pt has pain to left hip and knee, chronic pain. [id number] Emergency [facility] Note* Kathy Daly MD - 12/12/2022 11:20 PM EDT EMERGENCY DEPARTMENT ENCOUNTER Pt Name: Doroteo Gong Birthdate 1940 Date of evaluation: 12/12/2022 ED Provider: Kathy Daly MD CHIEF COMPLAINT Chief Complaint Patient presents with Weakness, Gen Fall HISTORY OF PRESENT ILLNESS (Location/Symptom, Timing/Onset, Context/Setting, Quality, Duration, Modifying Factors, Severity) Note limiting factors. I wore appropriate PPE for the entirety of this encounter. HPI Doroteo Gong is a 82 y.o. who presents to the emergency department for evaluation after an incident where his walker got too far in front of him leading to a situation where he had to lower himself down onto his knees, then to his bottom onto his kitchen floor. Patient states he was too weak to get up on his own and had to call EMS for a lift assist. They subsequently brought him into the ED for evaluation. Patient states he feels like he has been getting somewhat weaker than baseline over the last week. He states his medication frequently cause some tremors for which she has been prescribed B12 that he takes twice a day. He states he was overdue for his evening dose and believes that having a slight uptake in his tremors after not taking his B12 may have also contributed. He denies any injuries in the fall. He estimates he was on the floor for approximately 15 minutes before EMS helped him off of the ground. He denies any chest pain, palpitations, lightheadedness, or other prodromal symptoms, strictly states that his walker got out too far in front of him. He does report some worsening arthritis pain in the left knee and hip. He states that he has been advised to have replacements of both of these joints but he has not yet. Denies any fever, chills, nausea, vomiting. No change in bowel or bladder habits. No change in appetite. Nursing Notes were reviewed. Limitations to history: None Outside historians: None REVIEW OF SYSTEMS Review of Systems All other systems reviewed and are negative. Pertinent positives and negatives as per HPI. PAST MEDICAL HISTORY Past Medical History: Diagnosis Date Arthritis knees hands Asthma Chronic pain GERD (gastroesophageal reflux disease) Hyperlipidemia Kidney stone 2012 Prostate disease Sleep apnea Thyroid disease SURGICAL HISTORY Past Surgical History: Procedure Laterality Date APPENDECTOMY BACK SURGERY 2013 slipped disc CATARACT EXTRACTION CHOLECYSTECTOMY JOINT REPLACEMENT Right 2014 LITHOTRIPSY 3-4 times OTHER SURGICAL HISTORY hemorroid removed OTHER SURGICAL HISTORY Left 12/19/2017 stent placement, cystoscopy and pyelogram, Laser Lithotripsy SINUS SURGERY CURRENT MEDICATIONS Previous Medications ACETAMINOPHEN (TYLENOL 8 HOUR) 650 MG ER TABLET Take 650 mg by mouth every 8 hours as needed. ALBUTEROL 108 (90 BASE) MCG/ACT INHALER Inhale 2 puffs every 6 hours as needed. ALFUZOSIN ER (UROXATRAL) 10 MG 24 HR TABLET Take 1 tablet (10 mg) by mouth daily. CYANOCOBALAMIN ([employer] VITAMIN B-12) 1000 MCG TABLET Take 1,000 mcg by mouth. DEXTROMETHORPHAN-GUAIFENESIN (MUCINEX DM) 30-600 MG TABLET SUSTAINED-RELEASE 12 HOUR Take 1 tablet by mouth in the morning and 1 tablet in the evening. FINASTERIDE (PROSCAR) 5 MG TABLET Take 1 tablet (5 mg) by mouth daily. FLUTICASONE (FLOVENT) 110 MCG/ACT INHALER Inhale 2 puffs in the morning and 2 puffs before bedtime. HYDROCHLOROTHIAZIDE (HYDRODIURIL) 25 MG TABLET Take 25 mg by mouth every morning. IPRATROPIUM (ATROVENT) 0.06 % NASAL SPRAY Administer 2 sprays into affected nostril(s). LEVOTHYROXINE (SYNTHROID, LEVOXYL) 50 MCG TABLET Take 50 mcg by mouth in the morning. OMEPRAZOLE (PRILOSEC) [address] CAPSULE Take 20 mg by mouth in the morning. PANTOPRAZOLE (PROTONIX) 40 MG EC TABLET TAKE 1 TABLET BY MOUTH ONCE DAILY. 30 MINUTES BEFORE EATING. POLYETHYLENE GLYCOL, PEG, 3350 (GLYCOLAX) 17 GM/SCOOP POWDER Take by mouth. SIMVASTATIN (ZOCOR) 20 MG TABLET Take 20 mg by mouth in the morning. ALLERGIES Allopurinol, Erythromycin, Penicillins, Sulfa antibiotics, Tetracyclines & related, Levofloxacin, Ciprofloxacin, and Paroxetine FAMILY HISTORY Family History Problem Relation Name Age of Onset Heart failure Mother Diabetes Mother SOCIAL HISTORY Social History Socioeconomic History Marital status: Single Tobacco Use Smoking status: Never Smokeless tobacco: Never Vaping Use Vaping Use: Never used Substance and Sexual Activity Alcohol use: No Drug use: No Social Determinants of Health Intimate Partner Violence: Not At Risk (03/23/2022) Humiliation, Afraid, Rape, and Kick questionnaire Fear of Current or Ex-Partner: No Emotionally Abused: No Physically Abused: No Sexually Abused: No SCREENINGS [place] Coma Scale Best Eye Response: Spontaneous Best Verbal Response: Oriented Best Motor Response: Follows commands [place] Coma Scale Score: 15 PHYSICAL EXAM ED Triage Vitals [12/12/22 2322] Temp Heart Rate Resp BP 36.6 C (97.9 F) 71 17 (!) 155/88 SpO2 Temp Source Heart Rate Source Patient Position 100 % Oral Monitor Sitting BP Location FiO2 (%) Left arm -- Physical Exam Vitals and nursing note reviewed. Constitutional: General: He is not in acute distress. Appearance: Normal appearance. He is not ill-appearing or diaphoretic. HENT: Head: Normocephalic and atraumatic. Right Ear: Tympanic membrane normal. Left Ear: Tympanic membrane normal. Nose: Nose normal. No congestion or rhinorrhea. Eyes: General: No scleral icterus. Extraocular Movements: Extraocular movements intact. Conjunctiva/sclera: Conjunctivae normal. Pupils: Pupils are equal, round, and reactive to light. Cardiovascular: Rate and Rhythm: Normal rate and regular rhythm. Pulses: Normal pulses. Heart sounds: Normal heart sounds. Pulmonary: Effort: Pulmonary effort is normal. No respiratory distress. Breath sounds: Normal breath sounds. Abdominal: General: There is no distension. Palpations: Abdomen is soft. Tenderness: There is no abdominal tenderness. There is no guarding. Musculoskeletal: General: No swelling or deformity. Normal range of motion. Cervical back: Normal range of motion and neck supple. No tenderness. Skin: General: Skin is warm and dry. Capillary Refill: Capillary refill takes less than 2 seconds. Neurological: General: No focal deficit present. Mental Status: He is alert and oriented to person, place, and time. Psychiatric: Mood and Affect: Mood normal. Behavior: Behavior normal. DIAGNOSTIC RESULTS Procedures/EKG: EKG was reviewed by myself. [facility] RAD[facility]OLOGY (Per Emergency Physician): Interpretation per the Radiologist below, if available at the time of this note: XR chest 1 view (Results Pending) ED BEDSIDE ULTRASOUND: Performed by ED Physician - none LABS: Labs Reviewed BASIC METABOLIC PANEL - Abnormal Result Value SODIUM 138 POTASSIUM 3.7 CHLORIDE 105 CARBON DIOXIDE 28 UREA NITROGEN 21 (*) CREATININE 0.64 (*) GLUCOSE 87 CALCIUM 9.4 ANION GAP 4 eGFR >90.0 CBC WITH AUTO DIFFERENTIAL - Abnormal Auto WBC 6.4 RBC 4.33 (*) Hemoglobin 13.5 Hematocrit 39.7 (*) MCV 91.7 MCH 31.1 MCHC 33.9 RDW 13.5 Platelets 352 MPV 7.8 nRBC 0.1 Neutrophils Relative 49.8 Lymphocytes Relative 29.8 Monocytes Relative 12.6 (*) Eosinophils Relative 6.6 (*) Basophils Relative 1.2 Neutrophils Absolute 3.2 Lymphocytes Absolute 1.9 Monocytes Absolute 0.8 Eosinophils Absolute 0.4 Basophils Absolute 0.1 TROPONIN I - Normal TROPONIN I <0.012 Narrative: Patients with high levels of Biotin oral intake (ie >5 mg/day) may have falsely decreased Troponin levels. All other labs were within normal range or not returned as of this dictation. EMERGENCY DEPARTMENT COURSE and DIFFERENTIAL DIAGNOSIS/MDM: Vitals: Vitals: 12/12/22 2322 12/12/22 2326 12/12/22 2339 12/13/22 0034 BP: (!) 155/88 (!) 147/85 (!) 154/87 BP Location: Left arm Right arm Right arm Patient Position: Sitting Sitting Sitting Pulse: 71 70 67 Resp: 17 18 15 Temp: 36.6 C (97.9 F) TempSrc: Oral SpO2: 100% 98% 98% Weight: 75.8 kg (167 lb) Height: 1.524 m (5') Patient presents after having to lower himself down onto the kitchen floor earlier in the day whileambulating with his walker. He states the walker got out too far in front of him and he did not want to fall so he lowered himself down to the floor. He was on the floor approximately 15 minutes prior to EMS arrival for a lift assist. Patient did divulge that he was feeling a bit weaker than baseline over the last week and thought this may have contributed to the fall. He also reports frequent tremors which has been told by his physician are likely caused by his medications. He has been prescribed B12 for these. He felt that his tremors also contributed to his event today as he was overdue for his medication and felt his tremors were a little bit worse than baseline. Patient had no other specific complaints. Broad work-up was initiated with CBC, BMP, troponin to search for possible cause of weakness. CBC is unremarkable as is BMP and troponin. EKG per my interpretation shows sinus rhythm with right bundle branch block, left anterior fascicular block, no ST elevations or depressions, no arrhythmia or ectopy, normal intervals, no evidence of acute ischemia or infarction. I did discusswith the patient that I had a concern that being that he lives alone and has been feeling weaker that he may have more events where he is unable to ambulate properly and may fall or fine himself in asituation where he cannot get up and be able to reach anybody for assistance. Patient insists that he is safe to return home and would prefer to follow-up with his primary care physician to see if rosa isela perhaps get some home health care and possibly physical therapy in the home. I for the patient we can help arrange this with a brief admission and evaluation with physical therapy however patientis consistent in his choice to be discharged home. He does have capacity to make medical decisions and does appear otherwise well. Patient discharged back to his home per his wishes. I recommended tania his primary care physician, Dr. Madera, first thing in the morning to schedule appropriate follow-up. I also encouraged the patient to return to the emergency department should he change his mind and decide to be admitted for further evaluation to include PT/OT. Diagnoses as of 12/13/22 0203 Difficulty in walking Generalized weakness Medications acetaminophen (Tylenol) tablet 650 mg (has no administration in time range) REVAL: CRITICAL CARE TIME None CONSULTS: None PROCEDURES: Unless otherwise noted below, none Procedures Patients symptoms are consistent with sepsis, severe sepsis, or septic shock (If yes use .sepsiscoremeasure): Now FINAL IMPRESSION 1. Difficulty in walking 2. Generalized weakness DISPOSITION PATIENT REFERRED TO: No follow-up provider specified. DISCHARGE MEDICATIONS: New Prescriptions No medications on file (Comment: Please note this report has been produced using speech recognition software and may contain errors related to that system including errors in grammar, punctuation, and spelling, as well as words and phrases that may be inappropriate. If there are any questions or concerns please feel freeto contact the dictating provider for clarification.) Kathy Daly MD (electronically signed) Emergency Medicine Provider Kathy Daly MD 12/13/22202 [id number] Miscellaneous Notes* Telephone Encounter - Shyann Bazzi MA - 11/24/2022 7:54 AM EDT Pharmacy came in to the clinic requesting the following refill Refill(s) Requested: Requested Prescriptions Pending Prescriptions Disp Refills ipratropium bromide (ATROVENT) 42 mcg (0.06 %) nasal spray [Pharmacy Med Name: IPRATROPIUM 0.06% SPRAY] 45 mL 3 Sig: INHALE 2 SPRAYS INTO EACH NOSTRIL THREE TIMES DAILY ALLERGIES Allergen Reactions Allopurinol Unknown Doxycycline Unknown Erythromycin Unknown Minocycline Unknown Penicillins Unknown Sulfacetamide Unknown Tetracycline Unknown Levaquin [Levofloxa* Other: See Comments jittery Zocor [Simvastatin] Rash, Itching Ciprofloxacin Unknown Paxil [Paroxetine] Other: See Comments Fatigue Sulfa (Sulfonamide * Unknown (home) Last Office Visit Date: 10/23/2022 Last Distance Health Visit: Visit date not found Future Appointment: Visit date not found The patients preferred pharmacy has been captured for this encounter? yes Request is for script(s) to be escript to pharmacy. Shyann Bazzi MA documented in this encounter[facility] Miscellaneous Notes* Telephone Encounter - Maximiliano Draper MA - 11/08/2022 4:08 PM EDT Spoke to patient. He is not having any of those symptoms, but he did understand that he will need to go to ER if they do develop. He states symptoms come and go. If he can find a ride and someone to bring him he will try to get in. Maximiliano Draper MA * Telephone Encounter - Zacarias Lambert MD - 11/08/2022 2:27 PM EDT Okay for appointment, however if he is experiencing any chest pain lightheadedness or shortness of breath, I would direct him to the ER * Telephone Encounter - Maximiliano Draper MA - 11/08/2022 1:42 PM EDT Patient called stating that he was having some irregular heart beats. He felt it thumping like 1,2,3,4 ... 1,2,3,4. No other symptoms, his pulse ox is 94-97. He could not explain any other details tome. Explained Dr. Madera is out of the office. He called the cardiology department he had been to in the past. And they were no help to him. What to do? Maximiliano Draper MA documented in this encounterUniversity Hospitals St. [facility]07-10-2023 NoteHNO ID: [id number] Author: Roopa Madera MD Service: ? Author Type: Physician Type: Progress Notes Filed: 10/23/2022 7:57 PM Note Text: HPI: Mr. Gong is a 81 year old male who presents for chief complaint of some left hip left knee and right foot pain. The hip and knee pain is intermittent and previously diagnosed as osteoarthritis. The right toe pain is more recent and is on the medial aspect of the great toe. He does see a assembly machine tool setter for nail care. Review of Systems noncontributory PAST MEDICAL HISTORY Diagnosis Date Allergic rhinitis Anxiety and depression Arthritis Asthma B12 deficiency Elevated PSA Hiatal hernia Hyperlipidemia IBS (irritable bowel syndrome) Kidney stones RICKY (obstructive sleep apnea) Osteoarthritis of right hip Rosacea Thyroid condition PAST SURGICAL HISTORY Procedure Laterality Date CHOLECYSTECTOMY 2010 PAST SURGICAL HISTORY OF Sinus Surgery PAST SURGICAL HISTORY OF 2014,2018 Kidney Stones PAST SURGICAL HISTORY OF 2014 Back; Disc Removed PAST SURGICAL HISTORY OF 2014 Right Hip Replacement FAMILY HISTORY Problem Relation Age of Onset Hypothyroidism Other Social History Tobacco Use Smoking status: Never Passive exposure: Never Smokeless tobacco: Never Vaping Use Vaping Use: Never used Substance Use Topics Alcohol use: Never Drug use: Never Current Meds simvastatin (ZOCOR) 20 mg tablet TAKE 1 TABLET BY MOUTH EVERY DAY omeprazole (PRILOSEC) 20 mg capsule Take 1 capsule by mouth once daily. levothyroxine (SYNTHROID) 50 mcg tablet TAKE 1 TABLET BY MOUTH EVERY DAY albuterol HFA 90 mcg/actuation HFA Inhale 2 Puffs as instructed. Every 4 to 6 hours prn CHLORPHENIRAMINE MALEATE ORAL Take 4 mg by mouth twice daily. diclofenac (VOLTAREN ARTHRITIS PAIN) 1 % topical gel Apply 4 g to affected area four times daily. ketoconazole (NIZORAL) 2 % shampoo Apply to affected area three times a week. FLOVENT HFA 110 mcg/actuation inhaler Inhale 2 Puffs as instructed twice daily. 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 mecobalamin (B12 ACTIVE ORAL) Take by mouth. alfuzosin SR (UROXATRAL) 10 mg 24 hr tablet TAKE 1 TABLET EVERY DAY albuterol (PROVENTIL) 2.5 mg /3 mL (0.083 %) nebulizer solution Use 3 mL via nebulizer every 6 hours as needed for wheezing/shortness of breath. finasteride (PROSCAR) 5 mg tablet TAKE 1 TABLET BY MOUTH EVERY DAY BP 130/70 Pulse 71 Temp 98.4 Ht 5' 2 (1.58m) SpO2 96% Physical Exam Patient is afebrile and well-appearing. Examination of the right great toe reveals a very large callus with the posterior inferior aspect partially torn away from the underlying skin. PROCEDURE NOTE: With verbal informed consent we carefully shaved down the callus including the torn area until we got down to normal skin. We saw no evidence of underlying infection or purulence. Examination of the left knee reveals some tenderness and mild swelling but no warmth or erythema PROCEDURE NOTE: With verbal informed consent we injected 2 cc of Kenalog and 1 of lidocaine into the left knee using sterile anterolateral approach. The patient tolerated the procedure well No visits with results within 1 Day(s) from this visit. Latest known visit with results is: Office Visit on 03/18/2021 Component Date Value Ref Range Status Protein, Total 03/18/2021 6.7 6.3 - 8.0 g/dL Final Albumin 03/18/2021 4.4 3.9 - 4.9 g/dL Final Calcium, Total 03/18/2021 9.6 8.5 - 10.2 mg/dL Final Bilirubin, Total 03/18/2021 0.6 0.2 - 1.3 mg/dL Final Alkaline Phosphatase 03/18/2021 57 38 - 113 U/L Final AST 03/18/2021 23 14 - 40 U/L Final ALT 03/18/2021 22 10 - 54 U/L Final Glucose 03/18/2021 95 74 - 99 mg/dL Final The [place] [employer] (ADA) provides guidance for cutoff values for fasting glucose and random glucose. The ADA defines fasting as no caloric intake for at least 8 hours. Fasting plasma glucose results between 100 to 125 mg/dL indicate increased risk for diabetes (prediabetes). Fasting plasma glucose results greater than or equal to 126 mg/dL meet the criteria for diagnosis of diabetes. In the absence of unequivocal hyperglycemia, results should be confirmed by repeat testing. In a patient with classic symptoms of hyperglycemia or hyperglycemic crisis, random plasma glucose results greater than or equal to 200 mg/dL meet the criteria for diagnosis of diabetes. Reference: Standards of Medical Care in Diabetes 2016, [place] [employer]. Diabetes Care. 2016.39(Suppl 1). BUN 03/18/2021 11 9 - 24 mg/dL Final Creatinine 03/18/2021 0.76 0.73 - 1.22 mg/dL Final Sodium 03/18/2021 132 (L) 136 - 144 mmol/L Final P (more content not included)...[facility]07-10-2023 History of Present illness Narrative* Roopa Madera MD - 10/23/2022 7:54 PM EDT HPI: Mr. Gong is a 81 year old male who presents for chief complaint of some left hip left knee and right foot pain. The hip and knee pain is intermittent and previously diagnosed as osteoarthritis. The right toe pain is more recent and is on the medial aspect of the great toe. He does see a assembly machine tool setter for nail care. Review of Systems noncontributory PAST MEDICAL HISTORY Diagnosis Date Allergic rhinitis Anxiety and depression Arthritis Asthma B12 deficiency Elevated PSA Hiatal hernia Hyperlipidemia IBS (irritable bowel syndrome) Kidney stones RICKY (obstructive sleep apnea) Osteoarthritis of right hip Rosacea Thyroid condition PAST SURGICAL HISTORY Procedure Laterality Date CHOLECYSTECTOMY 2009 PAST SURGICAL HISTORY OF Sinus Surgery PAST SURGICAL HISTORY OF 2014,2018 Kidney Stones PAST SURGICAL HISTORY OF 2013 Back; Disc Removed PAST SURGICAL HISTORY OF 2013 Right Hip Replacement FAMILY HISTORY Problem Relation Age of Onset Hypothyroidism Other Social History Tobacco Use Smoking status: Never Passive exposure: Never Smokeless tobacco: Never Vaping Use Vaping Use: Never used Substance Use Topics Alcohol use: Never Drug use: Never Current Meds simvastatin (ZOCOR) 20 mg tablet TAKE 1 TABLET BY MOUTH EVERY DAY omeprazole (PRILOSEC) 20 mg capsule Take 1 capsule by mouth once daily. levothyroxine (SYNTHROID) 50 mcg tablet TAKE 1 TABLET BY MOUTH EVERY DAY albuterol HFA 90 mcg/actuation HFA Inhale 2 Puffs as instructed. Every 4 to 6 hours prn CHLORPHENIRAMINE MALEATE ORAL Take 4 mg by mouth twice daily. diclofenac (VOLTAREN ARTHRITIS PAIN) 1 % topical gel Apply 4 g to affected area four times daily. ketoconazole (NIZORAL) 2 % shampoo Apply to affected area three times a week. FLOVENT HFA 110 mcg/actuation inhaler Inhale 2 Puffs as instructed twice daily. 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 mecobalamin (B12 ACTIVE ORAL) Take by mouth. alfuzosin SR (UROXATRAL) 10 mg 24 hr tablet TAKE 1 TABLET EVERY DAY albuterol (PROVENTIL) 2.5 mg /3 mL (0.083 %) nebulizer solution Use 3 mL via nebulizer every 6 hours as needed for wheezing/shortness of breath. finasteride (PROSCAR) 5 mg tablet TAKE 1 TABLET BY MOUTH EVERY DAY BP 130/70 Pulse 71 Temp 98.4 Ht 5' 2 (1.58m) SpO2 96% Physical Exam Patient is afebrile and well-appearing. Examination of the right great toe reveals a very large callus with the posterior inferior aspect partially torn away from the underlying skin. PROCEDURE NOTE: With verbal informed consent we carefully shaved down the callus including the torn area until we got down to normal skin. We saw no evidence of underlying infection or purulence. Examination of the left knee reveals some tenderness and mild swelling but no warmth or erythema PROCEDURE NOTE: With verbal informed consent we injected 2 cc of Kenalog and 1 of lidocaine into the left knee using sterile anterolateral approach. The patient tolerated the procedure well No visits with results within 1 Day(s) from this visit. Latest known visit with results is: Office Visit on 03/18/2021 Component Date Value Ref Range Status Protein, Total 03/18/2021 6.7 6.3 - 8.0 g/dL Final Albumin 03/18/2021 4.4 3.9 - 4.9 g/dL Final Calcium, Total 03/18/2021 9.6 8.5 - 10.2 mg/dL Final Bilirubin, Total 03/18/2021 0.6 0.2 - 1.3 mg/dL Final Alkaline Phosphatase 03/18/2021 57 38 - 113 U/L Final AST 03/18/2021 23 14 - 40 U/L Final ALT 03/18/2021 22 10 - 54 U/L Final Glucose 03/18/2021 95 74 - 99 mg/dL Final The [place] [employer] (ADA) provides guidance for cutoff values for fasting glucose andrandom glucose. The ADA defines fasting as no caloric intake for at least 8 hours. Fasting plasma glucose results between 100 to 125 mg/dL indicate increased risk for diabetes (prediabetes). Fasting plasma glucose results greater than or equal to 126 mg/dL meet the criteria for diagnosis of diabetes. In the absence of unequivocal hyperglycemia, results should be confirmed by repeat testing. In a patient with classic symptoms of hyperglycemia or hyperglycemic crisis, random plasma glucose results greater than or equal to 200 mg/dL meet the criteria for diagnosis of diabetes. Reference: Standards of Medical Care in Diabetes 2016, [place] [employer]. Diabetes Care. 2016.39(Suppl 1). BUN 03/18/2021 11 9 - 24 mg/dL Final Creatinine 03/18/2021 0.76 0.73 - 1.22 mg/dL Final Sodium 03/18/2021 132 (L) 136 - 144 mmol/L Final Potassium 03/18/2021 4.3 3.7 - 5.1 mmol/L Final Chloride 03/18/2021 96 (L) 97 - 105 mmol/L Final CO2 03/18/2021 24 22 - 30 mmol/L Final Anion Gap 03/18/2021 12 9 - 18 mmol/L Final eGFR- 03/18/2021 >60 Final eGFR-All Other Races 03/18/2021 >60 Final eGFR (Estimated GFR) Units of measure: mL/min/1.73 meters squared eGFR is derived from the reexpressed MDRD Study equation using the following parameters: serum creatinine, age, gender and race. The creatinine assay has been calibrated to be traceable to IDMS. An eGFR <60 mL/min/1.73m2 for >3 months is consistent with chronic kidney disease. Refer to KDOQI guidelines for clinical interpretation. In patients with unstable renal function, e.g. those with acute kidney injury, the eGFR may not accurately reflect actual GFR. Cholesterol, Total 03/18/2021 146 <200 mg/dL Final <200 mg/dL, Desirable 200-239 mg/dL, Borderline high >239 mg/dL, High Triglyceride 03/18/2021 119 <150 mg/dL Final <150 mg/dL, Normal 150-199 mg/dL, Borderline high 200-499 mg/dL, High >499 mg/dL, Very high HDL Cholesterol 03/18/2021 40 >39 mg/dL Final 40-59 mg/dL, Acceptable >59 mg/dL, High: Negative risk factor for coronary heart disease <40 mg/dL, Low: Positive risk factor for coronary heart disease Non HDL Cholesterol 03/18/2021 106 <130 mg/dL Final <130 mg/dL, Optimal 130-159 mg/dL, Near optimal/above optimal 160-189 mg/dL, Borderline high 190-219 mg/dL, High >219 mg/dL, Very high Secondary prevention optimal non HDL Cholesterol levels are recommended to be <100 mg/dL Fasting Time 03/18/2021 10 hrs Final VLDL Cholesterol 03/18/2021 24 <30 mg/dL Final TC:HDL Ratio 03/18/2021 3.65 <5.10 Final LDL Cholesterol 03/18/2021 82 <100 mg/dL Final <100 mg/dL, Optimal 100-129 mg/dL, Near optimal/above optimal 130-159 mg/dL, Borderline high 160-189 mg/dL, High >189 mg/dL, Very high Secondary prevention optimal LDL Cholesterol levels are recommended to be < 70 mg/dL LDL:HDL Ratio 03/18/2021 2.05 <2.54 Final Reference: 1. National Cholesterol Education Program ATP III Guideline At-A-Glance Quick Desk Reference: National Heart, Lung, and Blood [employer]. National Institutes of Health. 2001: NIH Publication No. 01-3305. 2. An International Atherosclerosis Society position paper: global recommendations for the management of dyslipidemia: executive summary, Atherosclerosis. 2014: 232(2):410-413. WBC 03/18/2021 9.28 3.70 - 11.00 k/uL Final RBC 03/18/2021 5.13 4.20 - 6.00 m/uL Final Hemoglobin 03/18/2021 15.3 13.0 - 17.0 g/dL Final Hematocrit 03/18/2021 45.6 39.0 - 51.0 % Final MCV 03/18/2021 88.9 80.0 - 100.0 fL Final MCH 03/18/2021 29.8 26.0 - 34.0 pg Final MCHC 03/18/2021 33.6 30.5 - 36.0 g/dL Final RDW-CV 03/18/2021 13.0 11.5 - 15.0 % Final Platelet Count 03/18/2021 471 (H) 150 - 400 k/uL Final MPV 03/18/2021 9.6 9.0 - 12.7 fL Final Neutrophils % 03/18/2021 60.3 % Final Abs Neut 03/18/2021 5.59 1.45 - 7.50 k/uL Final Lymphocytes % 03/18/2021 24.0 % Final Abs Lymph 03/18/2021 2.23 1.00 - 4.00 k/uL Final Monocytes % 03/18/2021 11.5 % Final Abs Nuckolls 03/18/2021 1.07 (H) <0.87 k/uL Final Eosinophils % 03/18/2021 3.0 % Final Abs Eosin 03/18/2021 0.28 <0.46 k/uL Final Basophils % 03/18/2021 0.9 % Final Abs Baso 03/18/2021 0.08 <0.11 k/uL Final Immature Granulocytes % 03/18/2021 0.3 % Final Abs Immature Gran 03/18/2021 0.03 <0.10 k/uL Final NRBC 03/18/2021 0.0 0.0 /100 WBC Final Absolute nRBC 03/18/2021 <0.01 <0.01 k/uL Final Diff Type 03/18/2021 Auto Final TSH 03/18/2021 1.020 0.270 - 4.200 uU/mL Final Lipase 03/18/2021 22 16 - 61 U/L Final Vitamin B12 03/18/2021 567 232-1,245 pg/mL Final Assessment and Plan Encounter Diagnosis ICD-10-CM 1. Primary osteoarthritis of both knees M17.0 PARKING FOR HANDICAPPED triamcinolone acetonide 40 mg injection (KeNALog 40) 2. Callus of foot L84 PLAN: 1. Primary osteoarthritis of both knees. Patient is using Tylenol as needed. Status post corticosteroid injection left knee. (See procedure note above). He will call as needed. 2. Right great toe pain secondary to partially avulsed callus status post shaving. (See procedure note above) patient will call as needed. No follow-ups on file. I have confirmed and edited as necessary the past medical, family and social histories, HPI, and ROS obtained by others. I spent a total of 25 minutes on the date of the service which included preparing to see the patient, [id number] patient care, completing clinical documentation, obtaining and/or reviewing separately obtained history, performing a medically appropriate examination, counseling and educating the pat ient/family/caregiver, and ordering medications, tests, or procedures Roopa Madera MD. documented in this encounterUniversity [facility]als St. [facility]06-[facility]-2023 Miscellaneous Notes* Telephone Encounter - Adele Landa MA - 10/02/2022 8:17 AM EDT Patient asking for Omeprazole a lower paying cost for him. Please send if ok Adele Landa CMA documented in this encounterUniversity Hospitals St. [facility]06-15-2023 History of Present illness Narrative* DARION Balderas CNP - 09/28/2022 3:00 PM EDT Images from the original note were not included. DARION Elena CNP 09/28/2022 at 3:36 PM Urology Telehealth Visit PATIENT NAME: Doroteo Gong DATE OF : 1940 TODAY'S DATE: 09/28/2022 CHIEF COMPLAINT: Chief Complaint Patient presents with Benign Prostatic Hypertrophy Nephrolithiasis The patient, Mr. Gong is a 81 y.o. male. Their identity was verified by name and date of . Those on the call: Patient Doroteo Gong has consented to this virtual visit telehealth encounter. Patient was seen today via Telehealth by agreement and consent in light of the current COVID-19 pandemic. I used the following Telehealth technology: AUDIO capability only. Total length of call 20 minutes. This patient encounter is appropriate and reasonable under the circumstances given the patient's particular presentation at this time. The patient has been advised of the potential risks and limitations of this mode of treatment (including but not limited to the absence of in-person examination) and has agreed to be treated in a remote fashion in spite of them. Any and all of the patient's/patient's family's questions on this issue have been answered and I have made no promises or guarantees to the patient. The patient has also been advised to contact this office for worsening conditions or problems, and seek emergency medical treatment and/or call 911 if the patient deems either necessary. Subjective: Mr. Gong is a 81 y.o. male who presents for telehealth visit regarding DOC and BPH with LUTS. Hx of BPH, on Finasteride and Alfluzosin. Hx of DOC, but has not been bothered by LUTs He was last seen virtually on 09/08/2021. Hx of stones He feels well today. Denies flank pain. States that he feels he is voiding well. Voids q 2-3 hrs. Nocturia x 2 Urgency: none, only if he waits too long UUI: none SHAILESH: none Dysuria: none Hematuria: none Stream is good, no hesitancy. Had a fall last year and was in the hospital for 12 days and went to rehab afterwards. In compliance with current guidelines related to COVID-19 transmission, to limit patient contact and exposure, this note/recommendations were completed via a thorough chart review and history from patient via telephone. Review of Systems: Review of Systems Constitutional: Negative for chills and fever. Genitourinary: Negative for decreased urine volume, difficulty urinating, dysuria, flank pain, frequency, hematuria and urgency. Past Medical History: Past Medical History: Diagnosis Date Arthritis knees hands Asthma Chronic pain GERD (gastroesophageal reflux disease) Hyperlipidemia Kidney stone 2012 Prostate disease Sleep apnea Thyroid disease Past Surgical History: Past Surgical History: Procedure Laterality Date APPENDECTOMY BACK SURGERY 2014 slipped disc CATARACT EXTRACTION CHOLECYSTECTOMY JOINT REPLACEMENT Right 2013 LITHOTRIPSY 3-4 times OTHER SURGICAL HISTORY hemorroid removed OTHER SURGICAL HISTORY Left 12/19/2017 stent placement, cystoscopy and pyelogram, Laser Lithotripsy SINUS SURGERY Medications Prior to Admission medications Medication Sig Start Date End Date Taking? Authorizing Provider acetaminophen (Tylenol 8 Hour) 650 MG ER tablet Take 650 mg by mouth every 8 hours as needed. Historical Provider, albuterol 108 (90 Base) MCG/ACT inhaler Inhale 2 puffs every 6 hours as needed. 12/13/21 Historical Provider, alfuzosin ER (Uroxatral) 10 MG 24 hr tablet Take 1 tablet by mouth in the morning. 03/16/21 Historical Provider, cyanocobalamin ([employer] Vitamin B-12) 1000 MCG tablet Take 1,000 mcg by mouth. Historical Provider, Dextromethorphan-guaiFENesin (Mucinex DM) 30-600 MG tablet sustained-release 12 hour Take 1 tablet by mouth in the morning and 1 tablet in the evening. 03/27/22 Chelle Enrique DO finasteride (Proscar) 5 MG tablet Take 1 tablet by mouth in the morning. 12/24/20 Historical Provider, fluticasone (Flovent) 110 MCG/ACT inhaler Inhale 2 puffs in the morning and 2 puffs before bedtime.05/20/21 09/06/22 Historical Provider, hydroCHLOROthiazide (HYDRODiuril) 25 MG tablet Take 25 mg by mouth every morning. 03/05/21 Historical Provider, ipratropium (Atrovent) 0.06 % nasal spray Administer 2 sprays into affected nostril(s). 06/15/21 Historical Provider, levothyroxine (Synthroid, Levoxyl) 50 MCG tablet Take 50 mcg by mouth in the morning. 11/22/21 Historical Provider, omeprazole (PriLOSEC) [address] capsule Take 20 mg by mouth in the morning. 03/14/21 Historical Provider, pantoprazole (ProtoNix) 40 MG EC tablet TAKE 1 TABLET BY MOUTH ONCE DAILY. 30 MINUTES BEFORE EATING. 01/07/22 Historical Provider, polyethylene glycol, PEG, 3350 (Glycolax) 17 GM/SCOOP powder Take by mouth. Historical Provider, simvastatin (Zocor) 20 MG tablet Take 20 mg by mouth in the morning. 12/08/21 Historical Provider, Labs: Hemoglobin Date/Time Value Ref Range Status 03/27/2022 04:26 AM 13.9 13.0 - 18.0 g/dL Final Lab Results Component Value Date WBC 14.6 (H) 03/27/2022 HGB 13.9 03/27/2022 HCT 41.6 03/27/2022 MCV 85.2 03/27/2022 PLT 524 (H) 03/27/2022 Lab Results Component Value Date GLUCOSE 93 03/27/2022 CALCIUM 8.6 03/27/2022 NA 135 03/27/2022 K 3.9 03/27/2022 CO2 28 03/27/2022 CL 102 03/27/2022 BUN 23 (H) 03/27/2022 CREATININE 0.72 03/27/2022 No components found for: LABURIN Radiology Review: Exam Date/Time: 09/15/2022 14:47 Procedure: XR ABDOMEN 1 VIEW Ordering Provider: ORDONEZ JOSHUA Reason For Exam: kidney stone EXAM TYPE: XR ABDOMEN 1 VIEW EXAM DATE AND TIME: 09/15/2022 2:47 PM EDT INDICATION: 81 years Male with history of known calculus COMPARISON: 09/02/2021 TECHNIQUE: AP supine radiograph of the abdomen and pelvis was obtained. FINDINGS: The bowel gas pattern is unremarkable. Limited evaluation for free air or air- fluid levels on supine-only imaging. Unchanged punctate right renal calculus. Degenerative changes in the spine and left hip. Postsurgical changes at L4-L5 and in the right hip.The visualized lung bases are unremarkable. IMPRESSION: Punctate right renal calculus. Impression/Plan Diagnoses and all orders for this visit: Hypertrophy of prostate with urinary obstruction - alfuzosin ER (Uroxatral) 10 MG 24 hr tablet; Take 1 tablet (10 mg) by mouth daily. - finasteride (Proscar) 5 MG tablet; Take 1 tablet (5 mg) by mouth daily. - seen for a f/u - hx of BPH, DOC. He denies LUTS, is happy with urinary symptoms - I reviewed the images and reiterated that the KUB revealed the same punctate right renal calculus. - Discussed behavioral modification that can be beneficial for his lower urinary tract symptoms including double voiding, timed voiding, avoidance of caffeine, alcohol and other diuretics, as well asnight-time fluid restriction. - Discussed general dietary recommendations to assist in stone prevention including: - Oral hydration to achieve urine volume of at least 2.5 liters/day. Oral hydration should ideally be with water and fluids high in citrate (e.g. Lemonade, orange juice, etc). - Trying to limit food/beverages high in oxalate including but not limited to: spinach, tea, dark sodas, chocolate, nuts, etc. Handout given for low oxalate diet. - Limiting sodium in foods/beverages to <2,000mg per day. - Moderate calcium intake (1,000-1,200 mg/day). The patient was instructed to call the office or go to the nearest ER if worsening symptoms such asfever > 101F, inability to urinate, intractable nausea or vomiting, or uncontrolled pain. The patient verbalizes understanding. Follow up in a year Follow Up: Follow up in about 1 year (around 09/29/2023), or if symptoms worsen or fail to improve. Patient and/or family/guardian verbalizes understanding of and agreement with treatment recommendations and plan: Yes Length of Visit: I affirm this is a visit with an established patient who has not had a related appointment within my department in the past 7 days or scheduled within the next 24 hours. Total Time: 20 mins were spent on the digital evaluation and management of this patient. DARION Elena CNP 09/28/22 3:36 PM * Evangelina Cruz - 09/28/2022 3:00 PM EDT Mailed to pt documented in this [facility]06-15-[facility] History of Present illness Narrative* DARION Balderas CNP - 09/28/2022 3:00 PM EDT Images from the original note were not included. DARION Elena CNP 09/28/2022 at 3:36 PM Urology Telehealth Visit PATIENT NAME: Doroteo Gong DATE OF : 1940 TODAY'S DATE: 09/28/2022 CHIEF COMPLAINT: Chief Complaint Patient presents with Benign Prostatic Hypertrophy Nephrolithiasis The patient, Mr. Gong is a 81 y.o. male. Their identity was verified by name and date of . Those on the call: Patient Doroteo Gong has consented to this virtual visit telehealth encounter. Patient was seen today via Telehealth by agreement and consent in light of the current COVID-19 pandemic. I used the following Telehealth technology: AUDIO capability only. Total length of call 20 minutes. This patient encounter is appropriate and reasonable under the circumstances given the patient's particular presentation at this time. The patient has been advised of the potential risks and limitations of this mode of treatment (including but not limited to the absence of in-person examination) and has agreed to be treated in a remote fashion in spite of them. Any and all of the patient's/patient's family's questions on this issue have been answered and I have made no promises or guarantees to the patient. The patient has also been advised to contact this office for worsening conditions or problems, and seek emergency medical treatment and/or call 911 if the patient deems either necessary. Subjective: Mr. Gong is a 81 y.o. male who presents for telehealth visit regarding DOC and BPH with LUTS. Hx of BPH, on Finasteride and Alfluzosin. Hx of DOC, but has not been bothered by LUTs He was last seen virtually on 09/08/2021. Hx of stones He feels well today. Denies flank pain. States that he feels he is voiding well. Voids q 2-3 hrs. Nocturia x 2 Urgency: none, only if he waits too long UUI: none SHAILESH: none Dysuria: none Hematuria: none Stream is good, no hesitancy. Had a fall last year and was in the hospital for 12 days and went to rehab afterwards. In compliance with current guidelines related to COVID-19 transmission, to limit patient contact and exposure, this note/recommendations were completed via a thorough chart review and history from patient via telephone. Review of Systems: Review of Systems Constitutional: Negative for chills and fever. Genitourinary: Negative for decreased urine volume, difficulty urinating, dysuria, flank pain, frequency, hematuria and urgency. Past Medical History: Past Medical History: Diagnosis Date Arthritis knees hands Asthma Chronic pain GERD (gastroesophageal reflux disease) Hyperlipidemia Kidney stone 2013 Prostate disease Sleep apnea Thyroid disease Past Surgical History: Past Surgical History: Procedure Laterality Date APPENDECTOMY BACK SURGERY 2014 slipped disc CATARACT EXTRACTION CHOLECYSTECTOMY JOINT REPLACEMENT Right 2013 LITHOTRIPSY 3-4 times OTHER SURGICAL HISTORY hemorroid removed OTHER SURGICAL HISTORY Left 12/19/2017 stent placement, cystoscopy and pyelogram, Laser Lithotripsy SINUS SURGERY Medications Prior to Admission medications Medication Sig Start Date End Date Taking? Authorizing Provider acetaminophen (Tylenol 8 Hour) 650 MG ER tablet Take 650 mg by mouth every 8 hours as needed. Historical Provider, albuterol 108 (90 Base) MCG/ACT inhaler Inhale 2 puffs every 6 hours as needed. 12/13/21 Historical Provider, alfuzosin ER (Uroxatral) 10 MG 24 hr tablet Take 1 tablet by mouth in the morning. 03/16/21 Historical Provider, cyanocobalamin ([employer] Vitamin B-12) 1000 MCG tablet Take 1,000 mcg by mouth. Historical Provider, Dextromethorphan-guaiFENesin (Mucinex DM) 30-600 MG tablet sustained-release 12 hour Take 1 tablet by mouth in the morning and 1 tablet in the evening. 03/27/22 Chelle Enrique DO finasteride (Proscar) 5 MG tablet Take 1 tablet by mouth in the morning. 12/24/20 Historical Provider, fluticasone (Flovent) 110 MCG/ACT inhaler Inhale 2 puffs in the morning and 2 puffs before bedtime.05/20/21 09/06/22 Historical Provider, hydroCHLOROthiazide (HYDRODiuril) 25 MG tablet Take 25 mg by mouth every morning. 03/05/21 Historical Provider, ipratropium (Atrovent) 0.06 % nasal spray Administer 2 sprays into affected nostril(s). 06/15/21 Historical Provider, levothyroxine (Synthroid, Levoxyl) 50 MCG tablet Take 50 mcg by mouth in the morning. 11/22/21 Historical Provider, omeprazole (PriLOSEC) [address] capsule Take 20 mg by mouth in the morning. 03/14/21 Historical Provider, pantoprazole (ProtoNix) 40 MG EC tablet TAKE 1 TABLET BY MOUTH ONCE DAILY. 30 MINUTES BEFORE EATING. 01/07/22 Historical Provider, polyethylene glycol, PEG, 3350 (Glycolax) 17 GM/SCOOP powder Take by mouth. Historical Provider, simvastatin (Zocor) 20 MG tablet Take 20 mg by mouth in the morning. 12/08/21 Historical Provider, Labs: Hemoglobin Date/Time Value Ref Range Status 03/27/2022 04:26 AM 13.9 13.0 - 18.0 g/dL Final Lab Results Component Value Date WBC 14.6 (H) 03/27/2022 HGB 13.9 03/27/2022 HCT 41.6 03/27/2022 MCV 85.2 03/27/2022 PLT 524 (H) 03/27/2022 Lab Results Component Value Date GLUCOSE 93 03/27/2022 CALCIUM 8.6 03/27/2022 NA 135 03/27/2022 K 3.9 03/27/2022 CO2 28 03/27/2022 CL 102 03/27/2022 BUN 23 (H) 03/27/2022 CREATININE 0.72 03/27/2022 No components found for: LABURIN Radiology Review: Exam Date/Time: 09/15/2022 14:47 Procedure: XR ABDOMEN 1 VIEW Ordering Provider: ORDONEZ JOSHUA Reason For Exam: kidney stone EXAM TYPE: XR ABDOMEN 1 VIEW EXAM DATE AND TIME: 09/15/2022 2:47 PM EDT INDICATION: 81 years Male with history of known calculus COMPARISON: 09/02/2021 TECHNIQUE: AP supine radiograph of the abdomen and pelvis was obtained. FINDINGS: The bowel gas pattern is unremarkable. Limited evaluation for free air or air- fluid levels on supine-only imaging. Unchanged punctate right renal calculus. Degenerative changes in the spine and left hip. Postsurgical changes at L4-L5 and in the right hip.The visualized lung bases are unremarkable. IMPRESSION: Punctate right renal calculus. Impression/Plan Diagnoses and all orders for this visit: Hypertrophy of prostate with urinary obstruction - alfuzosin ER (Uroxatral) 10 MG 24 hr tablet; Take 1 tablet (10 mg) by mouth daily. - finasteride (Proscar) 5 MG tablet; Take 1 tablet (5 mg) by mouth daily. - seen for a f/u - hx of BPH, DOC. He denies LUTS, is happy with urinary symptoms - I reviewed the images and reiterated that the KUB revealed the same punctate right renal calculus. - Discussed behavioral modification that can be beneficial for his lower urinary tract symptoms including double voiding, timed voiding, avoidance of caffeine, alcohol and other diuretics, as well asnight-time fluid restriction. - Discussed general dietary recommendations to assist in stone prevention including: - Oral hydration to achieve urine volume of at least 2.5 liters/day. Oral hydration should ideally be with water and fluids high in citrate (e.g. Lemonade, orange juice, etc). - Trying to limit food/beverages high in oxalate including but not limited to: spinach, tea, dark sodas, chocolate, nuts, etc. Handout given for low oxalate diet. - Limiting sodium in foods/beverages to <2,000mg per day. - Moderate calcium intake (1,000-1,200 mg/day). The patient was instructed to call the office or go to the nearest ER if worsening symptoms such asfever > 101F, inability to urinate, intractable nausea or vomiting, or uncontrolled pain. The patient verbalizes understanding. Follow up in a year Follow Up: Follow up in about 1 year (around 09/29/2023), or if symptoms worsen or fail to improve. Patient and/or family/guardian verbalizes understanding of and agreement with treatment recommendations and plan: Yes Length of Visit: I affirm this is a visit with an established patient who has not had a related appointment within my department in the past 7 days or scheduled within the next 24 hours. Total Time: 20 mins were spent on the digital evaluation and management of this patient. DARION Elena CNP 09/28/22 3:36 PM * Evangelina Cruz - 09/28/2022 3:00 PM EDT Mailed to pt * Evangelina Cruz - 09/28/2022 3:00 PM EDT Scheduled 10-09-23, mailed to pt documented in this [facility]05-29-2023 Miscellaneous Notes* Telephone Encounter - Roopa Madera MD - 09/11/2022 8:09 AM EDT Message reviewed. Roopa Madera MD * Telephone Encounter - Riri Otto - 09/08/2022 1:15 PM EDT Pt knows Dr Madera out until September 12. This can wait until then. Pt called with an update on his arm as you requested. He advised his arm is much better. Riri Otto documented in this encounterUniversity [facility]als [facility] History of Present illness Narrative* Roopa Madera MD - 07/31/2022 5:55 PM EDT HPI: Mr. Gong is a 81 year old male who presents for chief complaint of some right great toe pain it is intermittent usually when he has his shoes on. In addition he has his chronic pain of his hips andknees. He reports his breathing is not quite as good as he likes but a little bit better since he started using his Flovent twice a day. Review of Systems noncontributory. PAST MEDICAL HISTORY Diagnosis Date Allergic rhinitis Anxiety and depression Arthritis Asthma B12 deficiency Elevated PSA Hiatal hernia Hyperlipidemia IBS (irritable bowel syndrome) Kidney stones RICKY (obstructive sleep apnea) Osteoarthritis of right hip Rosacea Thyroid condition PAST SURGICAL HISTORY Procedure Laterality Date CHOLECYSTECTOMY 2009 PAST SURGICAL HISTORY OF Sinus Surgery PAST SURGICAL HISTORY OF 2014,2018 Kidney Stones PAST SURGICAL HISTORY OF 2014 Back; Disc Removed PAST SURGICAL HISTORY OF 2014 Right Hip Replacement FAMILY HISTORY Problem Relation Age of Onset Hypothyroidism Other Social History Tobacco Use Smoking status: Never Smokeless tobacco: Never Vaping Use Vaping Use: Never used Substance Use Topics Alcohol use: Never Drug use: Never Current Meds simvastatin (ZOCOR) 20 mg tablet TAKE 1 TABLET BY MOUTH EVERY DAY pantoprazole DR (PROTONIX) 40 mg tablet TAKE 1 TABLET BY MOUTH ONCE DAILY. 30 MINUTES BEFORE EATING. levothyroxine (SYNTHROID) 50 mcg tablet TAKE 1 TABLET BY MOUTH EVERY DAY albuterol HFA 90 mcg/actuation HFA Inhale 2 Puffs as instructed. Every 4 to 6 hours prn CHLORPHENIRAMINE MALEATE ORAL Take 4 mg by mouth twice daily. diclofenac (VOLTAREN ARTHRITIS PAIN) 1 % topical gel Apply 4 g to affected area four times daily. ketoconazole (NIZORAL) 2 % shampoo Apply to affected area three times a week. FLOVENT HFA 110 mcg/actuation inhaler Inhale 2 Puffs as instructed twice daily. guaiFENesin 200 mg tablet GUAIFENESIN TABS as needed GUAIFENESIN TABS [id number] Anny Gabinoloni [employer] REPRESENTATIVE[employer] LA[employer] AND [employer]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 ipratropium bromide (ATROVENT) 42 mcg (0.06 %) nasal spray 2 SPRAYS INTO EACH NOSTRIL THREE TIMES DAILY acetaminophen 650 mg CR tablet Take 650 mg by mouth every 8 hours as needed. mecobalamin (B12 ACTIVE ORAL) Take by mouth. alfuzosin SR (UROXATRAL) 10 mg 24 hr tablet TAKE 1 TABLET EVERY DAY albuterol (PROVENTIL) 2.5 mg /3 mL (0.083 %) nebulizer solution Use 3 mL via nebulizer every 6 hours as needed for wheezing/shortness of breath. finasteride (PROSCAR) 5 mg tablet TAKE 1 TABLET BY MOUTH EVERY DAY BP 120/60 Temp 97.9 Ht 5' 2 (1.58m) Wt 172 lb (78.0kg) BMI 31.45 kg/(m^2). Physical Exam Patient is in no distress. Speaking in normal sentences. Blood pressure 120/60 Heart tones are normal Patient with chronic crackles one third of the way up to the base. Extremities without edema. He does have mycotic toenails on the right foot with his right great toenail probably 8 to 10 mm extending above the cutaneous surface. There is no evidence of first MTP arthritis or cutaneous lesions other than a callus on the medial aspect of the great toe distal phalanx. No visits with results within 1 Day(s) from this visit. Latest known visit with results is: Office Visit on 03/18/2021 Component Date Value Ref Range Status Protein, Total 03/18/2021 6.7 6.3 - 8.0 g/dL Final Albumin 03/18/2021 4.4 3.9 - 4.9 g/dL Final Calcium, Total 03/18/2021 9.6 8.5 - 10.2 mg/dL Final Bilirubin, Total 03/18/2021 0.6 0.2 - 1.3 mg/dL Final Alkaline Phosphatase 03/18/2021 57 38 - 113 U/L Final AST 03/18/2021 23 14 - 40 U/L Final ALT 03/18/2021 22 10 - 54 U/L Final Glucose 03/18/2021 95 74 - 99 mg/dL Final The [place] Diabetes Association (ADA) provides guidance for cutoff values for fasting glucose andrandom glucose. The ADA defines fasting as no caloric intake for at least 8 hours. Fasting plasma glucose results between 100 to 125 mg/dL indicate increased risk for diabetes (prediabetes). Fasting plasma glucose results greater than or equal to 126 mg/dL meet the criteria for diagnosis of diabetes. In the absence of unequivocal hyperglycemia, results should be confirmed by repeat testing. In a patient with classic symptoms of hyperglycemia or hyperglycemic crisis, random plasma glucose results greater than or equal to 200 mg/dL meet the criteria for diagnosis of diabetes. Reference: Standards of Medical Care in Diabetes 2016, [place] [employer]. Diabetes Care. 2016.39(Suppl 1). BUN 03/18/2021 11 9 - 24 mg/dL Final Creatinine 03/18/2021 0.76 0.73 - 1.22 mg/dL Final Sodium 03/18/2021 132 (A) 136 - 144 mmol/L Final Potassium 03/18/2021 4.3 3.7 - 5.1 mmol/L Final Chloride 03/18/2021 96 (A) 97 - 105 mmol/L Final CO2 03/18/2021 24 22 - 30 mmol/L Final Anion Gap 03/18/2021 12 9 - 18 mmol/L Final eGFR- 03/18/2021 >60 Final eGFR-All Other Races 03/18/2021 >60 Final eGFR (Estimated GFR) Units of measure: mL/min/1.73 meters squared eGFR is derived from the reexpressed MDRD Study equation using the following parameters: serum creatinine, age, gender and race. The creatinine assay has been calibrated to be traceable to IDMS. An eGFR <60 mL/min/1.73m2 for >3 months is consistent with chronic kidney disease. Refer to KDOQI guidelines for clinical interpretation. In patients with unstable renal function, e.g. those with acute kidney injury, the eGFR may not accurately reflect actual GFR. Cholesterol, Total 03/18/2021 146 <200 mg/dL Final <200 mg/dL, Desirable 200-239 mg/dL, Borderline high >239 mg/dL, High Triglyceride 03/18/2021 119 <150 mg/dL Final <150 mg/dL, Normal 150-199 mg/dL, Borderline high 200-499 mg/dL, High >499 mg/dL, Very high HDL Cholesterol 03/18/2021 40 >39 mg/dL Final 40-59 mg/dL, Acceptable >59 mg/dL, High: Negative risk factor for coronary heart disease <40 mg/dL, Low: Positive risk factor for coronary heart disease Non HDL Cholesterol 03/18/2021 106 <130 mg/dL Final <130 mg/dL, Optimal 130-159 mg/dL, Near optimal/above optimal 160-189 mg/dL, Borderline high 190-219 mg/dL, High >219 mg/dL, Very high Secondary prevention optimal non HDL Cholesterol levels are recommended to be <100 mg/dL Fasting Time 03/18/2021 10 hrs Final VLDL Cholesterol 03/18/2021 24 <30 mg/dL Final TC:HDL Ratio 03/18/2021 3.65 <5.10 Final LDL Cholesterol 03/18/2021 82 <100 mg/dL Final <100 mg/dL, Optimal 100-129 mg/dL, Near optimal/above optimal 130-159 mg/dL, Borderline high 160-189 mg/dL, High >189 mg/dL, Very high Secondary prevention optimal LDL Cholesterol levels are recommended to be < 70 mg/dL LDL:HDL Ratio 03/18/2021 2.05 <2.54 Final Reference: 1. National Cholesterol Education Program ATP III Guideline At-A-Glance Quick Desk Reference: National Heart, Lung, and Blood Morgan. National Institutes of Health. 2001: NIH Publication No. 01-3305. 2. An International Atherosclerosis Society position paper: global recommendations for the management of dyslipidemia: executive summary, Atherosclerosis. 2014: 232(2):410-413. WBC 03/18/2021 9.28 3.70 - 11.00 k/uL Final RBC 03/18/2021 5.13 4.20 - 6.00 m/uL Final Hemoglobin 03/18/2021 15.3 13.0 - 17.0 g/dL Final Hematocrit 03/18/2021 45.6 39.0 - 51.0 % Final MCV 03/18/2021 88.9 80.0 - 100.0 fL Final MCH 03/18/2021 29.8 26.0 - 34.0 pg Final MCHC 03/18/2021 33.6 30.5 - 36.0 g/dL Final RDW-CV 03/18/2021 13.0 11.5 - 15.0 % Final Platelet Count 03/18/2021 471 (A) 150 - 400 k/uL Final MPV 03/18/2021 9.6 9.0 - 12.7 fL Final Neutrophils % 03/18/2021 60.3 % Final Abs Neut 03/18/2021 5.59 1.45 - 7.50 k/uL Final Lymphocytes % 03/18/2021 24.0 % Final Abs Lymph 03/18/2021 2.23 1.00 - 4.00 k/uL Final Monocytes % 03/18/2021 11.5 % Final Abs Nuckolls 03/18/2021 1.07 (A) <0.87 k/uL Final Eosinophils % 03/18/2021 3.0 % Final Abs Eosin 03/18/2021 0.28 <0.46 k/uL Final Basophils % 03/18/2021 0.9 % Final Abs Baso 03/18/2021 0.08 <0.11 k/uL Final Immature Granulocytes % 03/18/2021 0.3 % Final Abs Immature Gran 03/18/2021 0.03 <0.10 k/uL Final NRBC 03/18/2021 0.0 0.0 /100 WBC Final Absolute nRBC 03/18/2021 <0.01 <0.01 k/uL Final Diff Type 03/18/2021 Auto Final TSH 03/18/2021 1.020 0.270 - 4.200 uU/mL Final Lipase 03/18/2021 22 16 - 61 U/L Final Vitamin B12 03/18/2021 567 232-1,245 pg/mL Final Assessment and Plan Encounter Diagnosis ICD-10-CM 1. Pulmonary emphysema, unspecified emphysema type (HCC) J43.9 2. Osteoarthritis, unspecified osteoarthritis type, unspecified site M19.90 3. Pain of right great toe M79.674 PLAN: 1. COPD. Probable component of interstitial fibrosis. He will continue his current therapy albuterol Flovent. 2. Multiple sites of osteoarthritis. Primarily his hip and knee. With his age and general weakness I am not sure that he would be a good candidate for joint replacement right now. We have encouraged him to use his tramadol and Tylenol on a program every 6 hours basis. He will try that and let us know. 3. Pain in his right great toe I think it is mechanical due to this large mycotic toenail. I recommended toenail removal. My main concern will be as postop care since he is not able to really get down to that toe in too much with it. I suggested that if he can arrange a ride 3 days in a row I can do the surgery and then do dressing changes. He will try to work that out and let us know. No follow-ups on file. I have confirmed and edited as necessary the past medical, family and social histories, HPI, and ROS obtained by others. I spent a total of 25 minutes on the date of the service which included preparing to see the patient, [id number] patient care, completing clinical documentation, obtaining and/or reviewing separately obtained history, performing a medically appropriate examination, counseling and educating the pat ient/family/caregiver, and ordering medications, tests, or procedures Roopa Madera MD. documented in this encounterUniversity Hospitals St. [facility]04-11-2023 Miscellaneous Notes* Telephone Encounter - Adele Landa MA - 07/25/2022 8:41 AM EDT Pharmacy faxed requesting the following refill Refill(s) Requested: Requested Prescriptions Pending Prescriptions Disp Refills simvastatin (ZOCOR) 20 mg tablet [Pharmacy Med Name: SIMVASTATIN 20 MG TABLET] 90 tablet 3 Sig: TAKE 1 TABLET BY MOUTH EVERY DAY ALLERGIES Allergen Reactions Allopurinol Unknown Doxycycline Unknown Erythromycin Unknown Minocycline Unknown Penicillins Unknown Sulfacetamide Unknown Tetracycline Unknown Levaquin [Levofloxa* Other: See Comments jittery Zocor [Simvastatin] Rash, Itching Ciprofloxacin Unknown Paxil [Paroxetine] Other: See Comments Fatigue Sulfa (Sulfonamide * Unknown (home) Last Office Visit Date: 06/12/2022 Last Distance [facility] Visit: Visit date not found Future Appointment: 07/31/2022 The patients preferred pharmacy has been captured for this encounter? yes Request is for script(s) to be escript to pharmacy. Adele Landa MA documented in this encounterUniversity Hospitals St. [facility]04-07-2023 Miscellaneous Notes* Telephone Encounter - Roopa Madera MD - 07/21/2022 2:32 PM EDT No change in additional report. 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 Discussed with patient * Telephone Encounter - Maximiliano Draper MA - 07/21/2022 2:18 PM EDT Patient had the CT repeated since they messed up the first one. Patient just wanted to make sure that you weren't going to make any changes after seeing the second CT. Maximiliano Draper MA documented in this encounterUniversity Hospitals St. [facility]04-07-2023 Telephone encounter Note * Telephone Encounter - Ro Amaya - 07/21/2022 12:16 PM EDT [id number] Miscellaneous Notes* Telephone Encounter - Ro Amaya - 07/21/2022 12:16 PM EDT error * Telephone Encounter - Eunice Walker - 07/17/2022 12:33 PM EDT Name of caller: Doroteo Contact phone number: [phone] Relationship to Patient: Patient Provider: Denise Holley Practice: Urology Chief Complaint/Reason for Call: Doroteo called in stating that the appt he has in September needs to be r/s. Please advise and follow up with Doroteo Best time of day caller can be reached: Any Patient advised that office/PCP has 24-48 business hours to return their call: No documented in this encounterSHolzer Health [id number] Telephone encounter Note* Telephone Encounter - Eunice Walker - 07/17/2022 12:33 PM EDT Name of caller: Doroteo Contact phone number: [phone] Relationship to Patient: Patient Provider: Denise Holley Practice: Urology Chief Complaint/Reason for Call: Doroteo called in stating that the appt he has in September needs to be r/s. Please advise and follow up with Doroteo Best time of day caller can be reached: Any Patient advised that office/PCP has 24-48 business hours to return their call: No [id number] Miscellaneous Notes* Telephone Encounter - Adele Landa MA - 07/14/2022 10:57 AM EDT Pharmacy faxed requesting the following refill Refill(s) Requested: Requested Prescriptions Pending Prescriptions Disp Refills pantoprazole DR (PROTONIX) 40 mg tablet [Pharmacy Med Name: PANTOPRAZOLE SOD DR 40 MG TAB] 90 tablet 1 Sig: TAKE 1 TABLET BY MOUTH ONCE DAILY. 30 MINUTES BEFORE EATING. ALLERGIES Allergen Reactions Allopurinol Unknown Doxycycline Unknown Erythromycin Unknown Minocycline Unknown Penicillins Unknown Sulfacetamide Unknown Tetracycline Unknown Levaquin [Levofloxa* Other: See Comments jittery Zocor [Simvastatin] Rash, Itching Ciprofloxacin Unknown Paxil [Paroxetine] Other: See Comments Fatigue Sulfa (Sulfonamide * Unknown (home) Last Office Visit Date: 06/12/2022 Last [facility] Visit: Visit date not found Future Appointment: Visit date not found The patients preferred pharmacy has been captured for this encounter? yes Request is for script(s) to be escript to pharmacy. Adele Landa MA documented in this encounterUniversity Hospitals St. [facility] Center02-27-2023 History of Present illness Narrative* Roopa Madera MD - 06/12/2022 5:13 PM EST HPI: Mr. Gong is a 81 year old male who presents for essentially chief complaint of left knee. He has [id number] arthritis. He has visited with his orthopedic surgeon Dr. Leigh about this. He reports he was being scheduled for surgery when he had a fall which resulted in some disability and a several week rehab stay. Patient reports his orthopedic surgeon was somewhat concerned about whether ornot he would be a good surgical candidate for total knee replacement on the left. Primarily becauseof respiratory issues. Patient wears O2 at night for sleep apnea. He has a pulse ox he states generally he is at 92-93 during the day. Review of Systems directed review of systems negative. PAST MEDICAL HISTORY Diagnosis Date Allergic rhinitis Anxiety and depression Arthritis Asthma B12 deficiency Elevated PSA Hiatal hernia Hyperlipidemia IBS (irritable bowel syndrome) Kidney stones RICKY (obstructive sleep apnea) Osteoarthritis of right hip Rosacea Thyroid condition PAST SURGICAL HISTORY Procedure Laterality Date CHOLECYSTECTOMY 2009 PAST SURGICAL HISTORY OF Sinus Surgery PAST SURGICAL HISTORY OF 2014,2018 Kidney Stones PAST SURGICAL HISTORY OF 2014 Back; Disc Removed PAST SURGICAL HISTORY OF 2014 Right Hip Replacement FAMILY HISTORY Problem Relation Age of Onset Hypothyroidism Other Social History Tobacco Use Smoking status: Never Smokeless tobacco: Never Vaping Use Vaping Use: Never used Substance Use Topics Alcohol use: Never Drug use: Never Current Meds levothyroxine (SYNTHROID) 50 mcg tablet TAKE 1 TABLET BY MOUTH EVERY DAY albuterol HFA 90 mcg/actuation HFA Inhale 2 Puffs as instructed. Every 4 to 6 hours prn CHLORPHENIRAMINE MALEATE ORAL Take 4 mg by mouth twice daily. diclofenac (VOLTAREN ARTHRITIS PAIN) 1 % topical gel Apply 4 g to affected area four times daily. ketoconazole (NIZORAL) 2 % shampoo Apply to affected area three times a week. pantoprazole DR (PROTONIX) 40 mg tablet TAKE 1 TABLET BY MOUTH ONCE DAILY. 30 MINUTES BEFORE EATING. simvastatin (ZOCOR) 20 mg tablet TAKE 1 TABLET EVERY DAY FLOVENT HFA 110 mcg/actuation inhaler INHALE 2 PUFFS INTO THE LUNGS TWICE A DAY guaiFENesin 200 mg tablet GUAIFENESIN TABS as needed GUAIFENESIN TABS [id number] 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 HYDROcodone-acetaminophen (NORCO) 5-325 mg per tablet TAKE 1 TABLET BY MOUTH EVERY 6 HOURS NEEDED FOR PAIN FOR UP TO 3 DAYS. ipratropium bromide (ATROVENT) 42 mcg (0.06 %) nasal spray 2 SPRAYS INTO EACH NOSTRIL THREE TIMES DAILY acetaminophen 650 mg CR tablet Take 650 mg by mouth every 8 hours as needed. mecobalamin (B12 ACTIVE ORAL) Take by mouth. alfuzosin SR (UROXATRAL) 10 mg 24 hr tablet TAKE 1 TABLET EVERY DAY albuterol (PROVENTIL) 2.5 mg /3 mL (0.083 %) nebulizer solution Use 3 mL via nebulizer every 6 hours as needed for wheezing/shortness of breath. finasteride (PROSCAR) 5 mg tablet TAKE 1 TABLET BY MOUTH EVERY DAY BP 130/68 Temp 96.8 Ht 5' 2 (1.58m) Wt 160 lb (72.6kg) BMI 29.26 kg/(m^2). Physical Exam Patient appears in no distress. He is speaking in complete sentences. His heart tones are normal His lungs have fairly coarse crackles in all lung riley. Left knee is swollen there is no erythema or warmth. RADIOLOGY FINDINGS: X-rays reviewed from [facility] at the end of last year mention interstitial infiltrates in both lungs. PROCEDURE NOTE: With verbal informed consent the left knee was sterilely prepared. Patient was injected with 2 cc of Kenalog and 1 cc of lidocaine using a sterile anterolateral approach. The patient tolerated the procedure without any apparent difficulty. A sterile dressing was then applied. No visits with results within 1 Day(s) from this visit. Latest known visit with results is: Office Visit on 03/18/2021 Component Date Value Ref Range Status Protein, Total 03/18/2021 6.7 6.3 - 8.0 g/dL Final Albumin 03/18/2021 4.4 3.9 - 4.9 g/dL Final Calcium, Total 03/18/2021 9.6 8.5 - 10.2 mg/dL Final Bilirubin, Total 03/18/2021 0.6 0.2 - 1.3 mg/dL Final Alkaline Phosphatase 03/18/2021 57 38 - 113 U/L Final AST 03/18/2021 23 14 - 40 U/L Final ALT 03/18/2021 22 10 - 54 U/L Final Glucose 03/18/2021 95 74 - 99 mg/dL Final The [place] Diabetes Association (ADA) provides guidance for cutoff values for fasting glucose andrandom glucose. The ADA defines fasting as no caloric intake for at least 8 hours. Fasting plasma glucose results between 100 to 125 mg/dL indicate increased risk for diabetes (prediabetes). Fasting plasma glucose results greater than or equal to 126 mg/dL meet the criteria for diagnosis of diabetes. In the absence of unequivocal hyperglycemia, results should be confirmed by repeat testing. In a patient with classic symptoms of hyperglycemia or hyperglycemic crisis, random plasma glucose results greater than or equal to 200 mg/dL meet the criteria for diagnosis of diabetes. Reference: Standards of Medical Care in Diabetes 2016, [place] [employer]. Diabetes Care. 2016.39(Suppl 1). BUN 03/18/2021 11 9 - 24 mg/dL Final Creatinine 03/18/2021 0.76 0.73 - 1.22 mg/dL Final Sodium 03/18/2021 132 (A) 136 - 144 mmol/L Final Potassium 03/18/2021 4.3 3.7 - 5.1 mmol/L Final Chloride 03/18/2021 96 (A) 97 - 105 mmol/L Final CO2 03/18/2021 24 22 - 30 mmol/L Final Anion Gap 03/18/2021 12 9 - 18 mmol/L Final eGFR- 03/18/2021 >60 Final eGFR-All Other Races 03/18/2021 >60 Final eGFR (Estimated GFR) Units of measure: mL/min/1.73 meters squared eGFR is derived from the reexpressed MDRD Study equation using the following parameters: serum creatinine, age, gender and race. The creatinine assay has been calibrated to be traceable to IDMS. An eGFR <60 mL/min/1.73m2 for >3 months is consistent with chronic kidney disease. Refer to KDOQI guidelines for clinical interpretation. In patients with unstable renal function, e.g. those with acute kidney injury, the eGFR may not accurately reflect actual GFR. Cholesterol, Total 03/18/2021 146 <200 mg/dL Final <200 mg/dL, Desirable 200-239 mg/dL, Borderline high >239 mg/dL, High Triglyceride 03/18/2021 119 <150 mg/dL Final <150 mg/dL, Normal 150-199 mg/dL, Borderline high 200-499 mg/dL, High >499 mg/dL, Very high HDL Cholesterol 03/18/2021 40 >39 mg/dL Final 40-59 mg/dL, Acceptable >59 mg/dL, High: Negative risk factor for coronary heart disease <40 mg/dL, Low: Positive risk factor for coronary heart disease Non HDL Cholesterol 03/18/2021 106 <130 mg/dL Final <130 mg/dL, Optimal 130-159 mg/dL, Near optimal/above optimal 160-189 mg/dL, Borderline high 190-219 mg/dL, High >219 mg/dL, Very high Secondary prevention optimal non HDL Cholesterol levels are recommended to be <100 mg/dL Fasting Time 03/18/2021 10 hrs Final VLDL Cholesterol 03/18/2021 24 <30 mg/dL Final TC:HDL Ratio 03/18/2021 3.65 <5.10 Final LDL Cholesterol 03/18/2021 82 <100 mg/dL Final <100 mg/dL, Optimal 100-129 mg/dL, Near optimal/above optimal 130-159 mg/dL, Borderline high 160-189 mg/dL, High >189 mg/dL, Very high Secondary prevention optimal LDL Cholesterol levels are recommended to be < 70 mg/dL LDL:HDL Ratio 03/18/2021 2.05 <2.54 Final Reference: 1. National Cholesterol Education Program ATP III Guideline At-A-Glance Quick Desk Reference: National Heart, Lung, and Blood Morgan. National Institutes of Health. 2001: NIH Publication No. 01-3305. 2. An International Atherosclerosis Society position paper: global recommendations for the management of dyslipidemia: executive summary, Atherosclerosis. 2014: 232(2):410-413. WBC 03/18/2021 9.28 3.70 - 11.00 k/uL Final RBC 03/18/2021 5.13 4.20 - 6.00 m/uL Final Hemoglobin 03/18/2021 15.3 13.0 - 17.0 g/dL Final Hematocrit 03/18/2021 45.6 39.0 - 51.0 % Final MCV 03/18/2021 88.9 80.0 - 100.0 fL Final MCH 03/18/2021 29.8 26.0 - 34.0 pg Final MCHC 03/18/2021 33.6 30.5 - 36.0 g/dL Final RDW-CV 03/18/2021 13.0 11.5 - 15.0 % Final Platelet Count 03/18/2021 471 (A) 150 - 400 k/uL Final MPV 03/18/2021 9.6 9.0 - 12.7 fL Final Neut% 03/18/2021 60.3 % Final Abs Neut 03/18/2021 5.59 1.45 - 7.50 k/uL Final Lymph% 03/18/2021 24.0 % Final Abs Lymph 03/18/2021 2.23 1.00 - 4.00 k/uL Final Nuckolls% 03/18/2021 11.5 % Final Abs Nuckolls 03/18/2021 1.07 (A) <0.87 k/uL Final Eosin% 03/18/2021 3.0 % Final Abs Eosin 03/18/2021 0.28 <0.46 k/uL Final Baso% 03/18/2021 0.9 % Final Abs Baso 03/18/2021 0.08 <0.11 k/uL Final Immature Gran % 03/18/2021 0.3 % Final Abs Immature Gran 03/18/2021 0.03 <0.10 k/uL Final NRBC 03/18/2021 0.0 0.0 /100 WBC Final Absolute nRBC 03/18/2021 <0.01 <0.01 k/uL Final Diff Type 03/18/2021 Auto Final TSH 03/18/2021 1.020 0.270 - 4.200 uU/mL Final Lipase 03/18/2021 22 16 - 61 U/L Final Vitamin B12 03/18/2021 567 232-1,245 pg/mL Final Assessment and Plan Encounter Diagnosis ICD-10-CM 1. Pulmonary fibrosis (HCC) J84.10 2. Interstitial pulmonary disease (HCC) J84.9 CT CHEST WO IVCON 3. Primary osteoarthritis of left knee M17.12 triamcinolone acetonide 80 mg injection (KeNALog 40) PLAN: 1. Pulmonary fibrosis suspected. Will obtain high-resolution CT to better delineate the process andprobably reconsult his time study technician. 2. Interstitial pulmonary disease on previous x-rays. Suspect may be pulmonary fibrosis see above. 3. Primary osteoarthritis of left knee. Patient does have an orthopedic surgeon however we need to resolve the pulmonary issue before we will proceed with total knee replacement. Patient did request and was given intra-articular steroid injection today. (See procedure note above.) No follow-ups on file. I have confirmed and edited as necessary the past medical, family and social histories, HPI, and ROS obtained by others. I spent a total of 25 minutes on the date of the service which included preparing to see the patient, [id number] patient care, completing clinical documentation, obtaining and/or reviewing separately obtained history, performing a medically appropriate examination, counseling and educating the pat ient/family/caregiver, and ordering medications, tests, or procedures Roopa Madera MD. documented in this encounterUniversity Hospitals St. [facility]09-02-2022 Miscellaneous Notes* Telephone Encounter - Roopa Madera MD - 12/16/2021 11:49 AM EDT Spoke with patient. He is still having pain but he also is having what he describes as trouble getting up and getting down and getting started with his walking. It sounds almost like he is describingbradykinesia. We will evaluate him for possible parkinsonism when we see him at his next visit. DJ * Telephone Encounter - Kalyani Silveira MA - 12/16/2021 10:10 AM EDT Patient called today. Reason for call: patient would like to speak to you about the recent cataract surgery and how it went, along with some leg pain he has had . Patient: Doroteo Gong Date of : 1940 (home) ALLERGIES Allergen Reactions Allopurinol Unknown Doxycycline Unknown Erythromycin Unknown Minocycline Unknown Penicillins Unknown Sulfacetamide Unknown Tetracycline Unknown Levaquin [Levofloxa* Other: See Comments jittery Zocor [Simvastatin] Rash, Itching Ciprofloxacin Unknown Paxil [Paroxetine] Other: See Comments Fatigue Sulfa (Sulfonamide * Unknown Last Office Visit Date: 11/02/2021 Last [facility] Visit: Visit date not found Future Appointment: Visit date not found The patients preferred pharmacy has been captured for this encounter? not asked Kalyani Silveira MA documented in this encounterUniversity Hospitals St. [facility]08-11-2022 Miscellaneous Notes* Telephone Encounter - Roopa Madera MD - 11/24/2021 5:10 PM EDT Patient reports he is doing well managing his pain with Tylenol he has not yet used. Jada gel. He will call if there is any setbacks. He is scheduled for cataract surgery towards 15 December. DJ * Telephone Encounter - Shyann Bazzi MA - 11/24/2021 3:18 PM EDT Patient called to give an update after his last visit with you. Patient did request to speak with you and did not want to give any information about his up date. After office is okay with the patient. Shyann Bazzi CMA documented in this encounterUniversity Hospitals St. John [facility]08-09-2022 Miscellaneous Notes* Telephone Encounter - Adele Landa MA - 11/22/2021 8:09 AM EDT Pharmacy faxed requesting the following refill Refill(s) Requested: Pending Prescriptions Disp Refills LEVOTHYROXINE 50 MCG TABLET 90 tablet 2 Sig: TAKE 1 TABLET BY MOUTH EVERY DAY PRICILA: Yes ALLERGIES Allergen Reactions Allopurinol Unknown Doxycycline Unknown Erythromycin Unknown Minocycline Unknown Penicillins Unknown Sulfacetamide Unknown Tetracycline Unknown Levaquin [Levofloxa* Other: See Comments jittery Zocor [Simvastatin] Rash, Itching Ciprofloxacin Unknown Paxil [Paroxetine] Other: See Comments Fatigue Sulfa (Sulfonamide * Unknown (home) Last Office Visit Date: 11/02/2021 Last [facility] Visit: Visit date not found Future Appointment: Visit date not found The patients preferred pharmacy has been captured for this encounter? yes Request is for script(s) to be escript to pharmacy. Adele Landa MA documented in this encounterUniversity Hospitals St. [facility]07-08-2022 Miscellaneous Notes* Telephone Encounter - Kalyani Silveira MA - 10/21/2021 12:46 PM EDT Left detailed messaged on voicemail, patient already has appt for 11/02/21 Kalyani Silveira MA * Telephone Encounter - Roopa Madera MD - 10/21/2021 11:37 AM EDT Let patient know I am glad to hear he got some relief. If the pain seems like it is returning we can do a second injection a week or 2 after the first. Okay to schedule him and if he wants to do that. DJ * Telephone Encounter - Kalyani Silveira MA - 10/21/2021 11:13 AM EDT Patient called today. Reason for call: update since the shot in knee, the knee felt better by the end of last week. Now there is slight pain returning to the knee. Patient: Doroteo Gong Date of : 1940 (home) ALLERGIES Allergen Reactions Allopurinol Unknown Doxycycline Unknown Erythromycin Unknown Minocycline Unknown Penicillins Unknown Sulfacetamide Unknown Tetracycline Unknown Ciprofloxacin Unknown Levaquin [Levofloxa* Other: See Comments jittery Paxil [Paroxetine] Other: See Comments Fatigue Sulfa (Sulfonamide * Unknown Zocor [Simvastatin] Rash, Itching Last Office Visit Date: 10/10/2021 Last [facility] Visit: Visit date not found Future Appointment: 11/02/2021 The patients preferred pharmacy has been captured for this encounter? not asked Kalyani Silveira MA documented in this encounterUniversity Hospitals St. [facility]06-27-2022 History of Present illness Narrative* Roopa Madera MD - 10/10/2021 10:18 PM EDT SUBJECTIVE: Patient presents with pain in both knees. Left greater than right. He describes some grinding and pain of the patella on the femur. OBJECTIVE: Right knee has some tenderness along the medial joint line minimal swelling. Left knee has more tenderness along the medial joint line with patellofemoral crepitus. ASSESSMENT/PLAN: 1. Primary osteoarthritis right knee. Patient will continue using Tylenol. 2. Primary osteoarthritis left knee. Procedure note With verbal informed consent we injected 2 cc of Kenalog and 1 of lidocaine using a sterile anterolateral approach. Patient tolerated the procedure well. If he does not improve in the next 3 to 5 days he has an order to obtain weightbearing x-rays of both knees with extra views of the left knee. Roopa Madera MD documented in this encounterUniversity Hospitals St. John [facility]05-31-2022 Miscellaneous Notes* Telephone Encounter - Cathy Cee MA - 09/13/2021 8:27 AM EDT Pharmacy faxed requesting the following refill Refill(s) Requested: Pending Prescriptions Disp Refills PANTOPRAZOLE 40 MG TABLET,DELAYED RELEASE 90 tablet 1 Sig: TAKE 1 TABLET BY MOUTH ONCE DAILY. 30 MINUTES BEFORE EATING. PRICILA: Yes ALLERGIES Allergen Reactions Allopurinol Unknown Doxycycline Unknown Erythromycin Unknown Minocycline Unknown Penicillins Unknown Sulfacetamide Unknown Tetracycline Unknown Ciprofloxacin Unknown Levaquin [Levofloxa* Other: See Comments jittery Paxil [Paroxetine] Other: See Comments Fatigue Sulfa (Sulfonamide * Unknown Zocor [Simvastatin] Rash, Itching (home) Last Office Visit Date: 06/16/2021 Last [facility] Visit: Visit date not found Future Appointment: Visit date not found The patients preferred pharmacy has been captured for this encounter? yes Request is for script(s) to be escript to pharmacy. Cathy Cee MA documented in this encounterUniversity Hospitals St. [facility]05-17-2022 Miscellaneous Notes* Telephone Encounter - Adele Landa MA - 08/30/2021 11:24 AM EDT Patient was advised on instructions Adele Landa CMA * Telephone Encounter - Roopa Madera MD - 08/30/2021 11:17 AM EDT I have 2 things that we usually try in this situation. 1 is an oral dose of magnesium citrate whichis available [id number] at the drugstore. 2 is fleets enemas from below before the magnesium citrate. Have him try this today. DJ * Telephone Encounter - Nguyen Senior MA - 08/30/2021 10:04 AM EDT Pt called said he has had constipation since Sunday. Has tried Murelax and prune juice with no help. What to do now? Nguyen Senior CMA documented in this encounterUniversity Hospitals St. [facility]04-05-2022 Miscellaneous Notes* Telephone Encounter - Shyann Bazzi MA - 07/19/2021 1:08 PM EDT Pharmacy faxed requesting the following refill Refill(s) Requested: Pending Prescriptions Disp Refills SIMVASTATIN 20 MG TABLET 90 tablet 3 Sig: TAKE 1 TABLET EVERY DAY PRICILA: Yes ALLERGIES Allergen Reactions Allopurinol Unknown Doxycycline Unknown Erythromycin Unknown Minocycline Unknown Penicillins Unknown Sulfacetamide Unknown Tetracycline Unknown Ciprofloxacin Unknown Levaquin [Levofloxa* Other: See Comments jittery Paxil [Paroxetine] Other: See Comments Fatigue Sulfa (Sulfonamide * Unknown Zocor [Simvastatin] Rash, Itching (home) Last Office Visit Date: 06/16/2021 Last [facility] Visit: Visit date not found Future Appointment: Visit date not found The patients preferred pharmacy has been captured for this encounter? yes Request is for script(s) to be escript to pharmacy. Shyann Bazzi MA documented in this encounterUniversity Hospitals St. [facility]06-26-2021 History of Present illness Narrative* Ian Frost RCP - 10/09/2020 1:16 PM EDT [facility] Respiratory Care Department Progress Note SpO2 at rest on RA = 93 HR at rest = 60 SpO2 with ambulation on RA = 92 Peak HR = 79 Distance Walked = Recovery SpO2 with ambulation = 94 Recovery HR = 79 Recovery SpO2 with lpm with ambulation (if needed) = Qualify for home O2 Y/N = No Patient mobile at home Y/N = Yes * Diane Garcia RCP - 10/09/2020 6:18 AM EDT Nocturnal desaturation study started on RA. Pt sats dropped per RN and placed him on 2L NC then weaned down to 1L NC. Report placed in pt chart. * Mansi Mckeon RD, LD - 10/08/2020 3:35 PM EDT Nutrition rescreen completed. Pt assigned a level one for nutrition care. Will refer to DT for continued nutrition monitoring. RD available upon consult. * Lolita Paulino, PT - 10/08/2020 3:11 PM EDT Physical Therapy Facility/Department: [facility] 2E TELEMETRY Daily Treatment Note NAME: Doroteo Gong : 1940 Date of Service: 10/08/2020 Discharge Recommendations: Home with assist PRN, Home with Home health PT Assessment Body structures, Functions, Activity limitations: Decreased functional mobility ;Decreased ADL status;Decreased strength;Decreased safe awareness;Decreased balance;Decreased endurance Assessment: Patient continues to be limited by decreased endurance. He presents this session with slight increase in functional mobility and increased distance with ambulation. Patient CGA for stair negotiation and demonstrated increased safey awareness with education. Patient should benefit from continued therapy to increase endurance, strength and independence for home going. Recommend [facility] PT and assist PRN upon acute care discharge. Patient is agreeable to this plan and states that his nephew would be able to assist at home. Exam: [facility] PT Education: Goals;PT Role;Plan of Care;Gait Training;General Safety;Functional Mobility Training;Energy Conservation;Transfer Training;Equipment REQUIRES PT FOLLOW UP: Yes Activity Tolerance Activity Tolerance: Patient limited by fatigue;Patient limited by endurance Patient Diagnosis(es): The encounter diagnosis was Shortness of breath. has a past medical history of Arthritis, Asthma, Chronic pain, GERD (gastroesophageal reflux disease), Hyperlipidemia, Kidney stone, Prostate disease, Sleep apnea, and Thyroid disease. has a past surgical history that includes Appendectomy; Cholecystectomy; back surgery (2013); sinussurgery; other surgical history; joint replacement (Right, 2013); Lithotripsy; and other surgical history (Left, 12/19/2017). Restrictions Restrictions/Precautions Restrictions/Precautions: Fall Risk, General Precautions (2L O2) Required Braces or Orthoses?: No Subjective General Chart Reviewed: Yes Family / Caregiver Present: No Subjective Subjective: Pt agreeable to therapy. General Comment Comments: Pt ok for therapy per RN. Pain Screening Patient Currently in Pain: Denies Vital Signs Patient Currently in Pain: Denies Objective Bed mobility Supine to Sit: Stand by assistance Sit to Supine: Minimal assistance (BLE) Scooting: Contact guard assistance Comment: HOB elevated for supine to sit and flattened when returning to supine. Denies dizziness with positional change. SpO2 96% sitting EOB prior to ambulation. Transfers Sit to Stand: Contact guard assistance (cane) Stand to sit: Contact guard assistance (cane) Comment: Patient requires CGA for safety and denies dizziness with positional changes. Patient withincreased time to position himself EOB due to short stature. Ambulation Ambulation?: Yes Ambulation 1 Surface: level tile Device: Single point cane Assistance: Contact guard assistance Quality of Gait: reciprocal stepping with lateral swaying but no true LOB Gait Deviations: Slow Lisbeth;Increased DILCIA;Decreased step length;Decreased step height Distance: 100' Comments: Pt limited by SOB and fatigue. SpO2 read 97% post ambulation. Stairs/Curb Stairs?: Yes Stairs # Steps : 5 Stairs Height: 6 Rails: Right ascending Device: No Device Assistance: Contact guard assistance Comment: Patient educated on safety with stair negotiation and use of handrail with cane. Patient requires CGA for safety due to unsteadiness with no true LOB or buckling. Patient c/o increased left hip pain that is chronic. AM-PAC Score AM-PAC Inpatient Mobility Raw Score : 19 (10/08/201510) AM-PAC Inpatient T-Scale Score : 45.44 (10/08/201510) Mobility Inpatient CMS 0-100% Score: 41.77 (10/08/201510) Mobility Inpatient CMS G-Code Modifier : CK (10/08/201510) Goals Short term goals Time Frame for Short term goals: 5 visits Short term goal 1: Doroteo to perform bed mobility mod ind to improve function. (progressing) Short term goal 2: Doroteo to perform transfers mod ind to improve strength and function. (progressing) Short term goal 3: Doroteo to ambulate 100' with cane and SBA w/o SpO2 levels dropping to improve safety and endurance. (progressing) Short term goal 4: Doroteo to negotiate 5 steps with bilateral rail and SBA w/o SpO2 levels droppingto improve safety and endurance. (progressing) Short term goal 5: Doroteo to perform 1-2 sets of 5-10 reps w/o SpO2 levels dropping to improve ROM and strength. (N/A) Patient Goals Patient goals : to return home Plan Plan Times per week: 6 visits Times per day: Daily Current Treatment Recommendations: Strengthening, ROM, Balance Training, Functional Mobility Training, ADL/Self-care Training, Transfer Training, Endurance Training, Gait Training, Stair training, Safety Education & Training, Home Exercise Program, Equipment Evaluation, Education, & procurement, Patient/Caregiver Education & Training Plan Comment: Goals and/or treatment plan were established in collaboration with patient Safety Devices Type of devices: All fall risk precautions in place, Call light within reach, Gait belt, Nurse notified, Left in bed, Patient at risk for falls Restraints Initially in place: No Therapy Time Individual Concurrent Group Co-treatment Time In 2 Time Out 1359 Minutes 27 Timed Code Treatment Minutes: 23 Minutes (1 GT, 1 TA) Lolita Paulino PT * Adonay Lizbeth Louisa, OT - 10/08/2020 2:56 PM EDT Occupational Therapy Occupational Therapy Initial Assessment Date: 10/08/2020 Patient Name: Doroteo Gong : 1940 Date of Service: 10/08/2020 Discharge Recommendations: Home with assist PRN, Home with Home health OT OT Equipment Recommendations Equipment Needed: No Assessment Performance deficits / Impairments: Decreased functional mobility ;Decreased ADL status;Decreased strength;Decreased balance;Decreased endurance;Decreased high- level IADLs Assessment: OT eval complete. Pt presents with the above deficits limiting functional independence.Based on functional observation pt is modif indep to min assist for dressing bathing grooming toileting. Pt should benefit from continued OT to improve occupational participation. Recommend home withassist PRN and home OT upon discharge. Prognosis: Good Decision Making: Medium Complexity History: Pt admitted with SOB. PMH is listed below. Exam: [facility] OT Education: OT Role;Plan of Care REQUIRES OT FOLLOW UP: Yes Activity Tolerance Activity Tolerance: Patient limited by fatigue Safety Devices Safety Devices in place: Yes Type of devices: All fall risk precautions in place;Call light within reach;Gait belt;Patient at risk for falls;Left in bed;Nurse notified Restraints Initially in place: No Patient Diagnosis(es): The encounter diagnosis was Shortness of breath. has a past medical history of Arthritis, Asthma, Chronic pain, GERD (gastroesophageal reflux disease), Hyperlipidemia, Kidney stone, Prostate disease, Sleep apnea, and Thyroid disease. has a past surgical history that includes Appendectomy; Cholecystectomy; back surgery (2013); sinussurgery; other surgical history; joint replacement (Right, 2013); Lithotripsy; and other surgical history (Left, 12/19/2017). Restrictions Restrictions/Precautions Restrictions/Precautions: Fall Risk, General Precautions (2L O2) Required Braces or Orthoses?: No Subjective General Chart Reviewed: Yes Patient assessed for rehabilitation services?: Yes Family / Caregiver Present: No Subjective Subjective: Pt supine in bed. Agreeable to OT eval. General Comment Comments: Per RN therapy okay. 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 States his nephew comes rarely and neighbors are old and likehe is) ADL Assistance: Independent Homemaking Assistance: Independent Homemaking Responsibilities: Yes Ambulation Assistance: Independent (uses cane) Transfer Assistance: Independent Active Cofounder: Yes Mode of Transportation: Car Education: [employer] Occupation: Retired Type of occupation: [place] Leisure & Hobbies: NA IADL Comments: Pt reports at baseline he uses AE (sock aid/shoe horn/regulatory lead) to assist with dressing. Additional Comments: Pt states he gets his groceries delivered to his house. Has difficulty gettinginto house with the 5 steps d/t fatigue and weakness. Objective Vision: Within Functional Limits Hearing: Within functional limits Orientation Overall Orientation Status: Within Functional Limits Observation/Palpation Posture: Fair Observation: 2L O2 Balance Sitting Balance: Independent Standing Balance: Stand by assistance Standing Balance Activity: static standing Comment: with cane, no LOB Functional Mobility Functional - Mobility Device: Cane Activity: Other Assist Level: Contact guard assistance Functional Mobility Comments: Pt ambulated (amb) in hallway with cane. No true LOB, however slightly unsteady on feet. ADL Feeding: Independent Grooming: Stand by assistance UE Bathing: Modified independent LE Bathing: Minimal assistance UE Dressing: Modified independent LE Dressing: Minimal assistance Toileting: Stand by assistance Additional Comments: At baseline pt uses AE for LB dressing. Bed mobility Supine to Sit: Stand by assistance Sit to Supine: Minimal assistance (BLE) Scooting: Contact guard assistance Comment: HOB elevated for supine to sit and flattened when returning to supine. Denies dizziness with positional change. SpO2 96% sitting EOB prior to ambulation. Transfers Sit to stand: Contact guard assistance Stand to sit: Contact guard assistance Cognition Overall Cognitive Status: WFL Sensation Overall Sensation Status: WFL (denies numbness/tingling) LUE AROM (degrees) LUE AROM : WFL RUE AROM (degrees) RUE AROM : WFL LUE Strength LUE Strength Comment: >3/5 observed functionally RUE Strength RUE Strength Comment: >3/5 observed functionally Plan Plan Times per week: 5 visits Current Treatment Recommendations: Strengthening, ROM, Balance Training, Functional Mobility Training, Endurance Training, Safety Education & Training, Positioning, Home Management Training, Self-Care / ADL, Equipment Evaluation, Education, & procurement, Patient/Caregiver Education & Training Plan Comment: POC and goals were made in collaboration with pt. AM-PAC Score AM-PAC Inpatient Daily Activity Raw Score: 22 (10/08/201455) AM-PAC Inpatient ADL T-Scale Score : 47.1 (10/08/201455) ADL Inpatient CMS 0-100% Score: 25.8 (10/08/201455) ADL Inpatient CMS G-Code Modifier : CJ (10/08/201455) Goals Short term goals Time Frame for Short term goals: 6 visits Short term goal 1: Modif indep functional transfers/mobility using LRD. Short term goal 2: Modif indep full body ADL using AE PRN. Short term goal 3: Modif indep toileting including toilet transfer. Short term goal 4: Modif indep grooming. Patient Goals Patient goals : None stated Therapy Time Individual Concurrent Group Co-treatment Time In 1332 Time Out 1359 Minutes 27 Lizbeth Urias OT * Jesse Ramsay MD - 10/08/2020 10:12 AM EDT Images from the original note were not included. Hospitalist Progress Note 10/08/2020 10:12 AM Subjective: Admit Date: 10/05/2020 PCP: ROOPA MADERA MD Room#: [id number] Patient seen and examined. He is sitting up on the bed. Still complaining of SOB. On 2 l of oxygen. ADULT DIET; Regular Patient Vitals for the past 96 hrs (Last 3 readings): Weight 06/23/21 0759 180 lb (81.6 kg) 10/05/20 1638 170 lb (77.1 kg) 24HR INTAKE/OUTPUT: No intake or output data in the 24 hours ending 10/08/20 1012 Medications: sodium chloride cetirizine 5 mg Oral Daily polyethylene glycol 17 g Oral Daily sodium chloride flush 5-40 mL Intravenous 2 times per day enoxaparin 40 mg Subcutaneous Daily vitamin B-12 1,000 mcg Oral Daily ipratropium 2 spray Nasal 4x Daily sodium chloride flush 3 mL Intravenous Q8H finasteride 5 mg Oral Daily levothyroxine 50 mcg Oral Daily pantoprazole 40 mg Oral QAM AC atorvastatin 10 mg Oral Daily tamsulosin 0.4 mg Oral Daily LABS: CBC: Recent Labs 10/05/20174310/07/20 0319 10/07/20 0354 WBC 7.1 7.6 7.5 RBC 5.28 4.96 4.94 HGB 16.3 15.2 15.1 HCT 46.7 43.5 43.2 MCV 88.4 87.7 87.5 RDW 14.2 14.3 14.3 PLT 416 390 410 BMP: Recent Labs 10/05/20 1744 10/07/20 0354 NA 130* 129* K 4.2 3.9 CL 100 98 CO2 22 24 BUN 9 9 CREATININE 0.81 0.69 GLUCOSE 82 91 CALCIUM 9.8 9.4 ANIONGAP 8 6 LIVER PROFILE: Recent Labs 10/05/20 1744 10/07/20 0354 AST 36 38 ALT 22 21 BILITOT 1.1 1.0 ALKPHOS 45 45 LABALBU 4.5 4.0 PROT 7.2 6.5 PT/INR: No results for input(s): PROTIME, INR in the last 72 hours. CARDIAC ENZYMES: Recent Labs 10/05/20 1744 10/06/20 0643 TROPONINI <0.012 <0.012 Procalcitonin: No results found for: PROCAL Objective: Vitals: BP 130/79 Pulse 64 Temp 97 F (36.1 C) (Temporal) Resp 17 Ht 5' (1.524 m) Wt 180 lb (81.6 kg) SpO2 96% BMI 35.15 kg/m Pulse Ox: SpO2 Av.7 % Min: 95 % Max: 99 % Supplemental O2: O2 Flow Rate (L/min): 2 L/min Assessment/Plan SOB: pt with increasing SOB over several weeks, trial of steroids. Ct scan reviewed. Mild atelectasis/ linear fibrosis? Patient iasked on seeing a '' lung doctor'' 1. Chest pain: initial troponin negative, will trend with another. Pt currently asymptomatic 2. Asthma: cont home inhalers. Stable on RA, pt does not wear O2 at home. 3. Mild hyponatremia: cont to monitor. 4. HTN: cont home meds 5. BPH: cont flomax and proscar 6. Hypothyroidism: cont synthroid 7. RICKY, non-compliant with CPAP -am labs, replace lytes prn -increase activity -DVT prophylaxis: [x] Lovenox [] Heparin [] SCDs [x] Encourage ambulation [] Already on Anticoagulation Advance Directive: Full Code Discharge planning: TBD Signed: JESSE RAMSAY MD Inpatient Medical Services 10/08/2020, 10:12 AM * Lizbeth Urias OT - 10/07/2020 2:07 PM EDT Occupational Therapy Occupational Therapy Initial Assessment Date: 10/07/2020 Patient Name: Doroteo Gong : 1940 Date of Service: 10/07/2020 OT eval and treat orders received. Chart reviewed. Per RN therapy okay. OT eval attempted. Introduced self and role to pt. Pt declining therapy at this time d/t feeling SOB. Pt SpO2 was 96%. Pt offered multiple options for therapy, however, continued to decline. RN notified of pt requesting to speak with nursing. Will re-attempt at later day/time as schedule permits. Lizbeth Urias OT * Jesse Ramasy MD - 10/07/2020 10:37 AM EDT Images from the original note were not included. Hospitalist Progress Note 10/07/2020 10:37 AM Subjective: Admit Date: 10/05/2020 PCP: ROOPA MADERA MD Room#: 254/2541 Patient seen and examined. He is laying in bed. Echo in progress. He complains of SOB that is ongoing. He asks about seeing a lung doctor. ADULT DIET; Regular Patient Vitals for the past 96 hrs (Last 3 readings): Weight 10/06/20 0759 180 lb (81.6 kg) 10/05/20 1638 170 lb (77.1 kg) 24HR INTAKE/OUTPUT: Intake/Output Summary (Last 24 hours) at 10/07/2020 1037 Last data filed at 10/07/2020 0616 Gross per 24 hour Intake Output 350 ml Net -350 ml Medications: sodium chloride cetirizine 5 mg Oral Daily polyethylene glycol 17 g Oral Daily sodium chloride flush 5-40 mL Intravenous 2 times per day enoxaparin 40 mg Subcutaneous Daily vitamin B-12 1,000 mcg Oral Daily ipratropium 2 spray Nasal 4x Daily sodium chloride flush 3 mL Intravenous Q8H finasteride 5 mg Oral Daily levothyroxine 50 mcg Oral Daily pantoprazole 40 mg Oral QAM AC atorvastatin 10 mg Oral Daily tamsulosin 0.4 mg Oral Daily LABS: CBC: Recent Labs 10/05/20 17410/07/20 0319 10/07/20 0354 WBC 7.1 7.6 7.5 RBC 5.28 4.96 4.94 HGB 16.3 15.2 15.1 HCT 46.7 43.5 43.2 MCV 88.4 87.7 87.5 RDW 14.2 14.3 14.3 PLT 416 390 410 BMP: Recent Labs 10/05/20 1744 10/07/20 0354 NA 130* 129* K 4.2 3.9 CL 100 98 CO2 22 24 BUN 9 9 CREATININE 0.81 0.69 GLUCOSE 82 91 CALCIUM 9.8 9.4 ANIONGAP 8 6 LIVER PROFILE: Recent Labs 10/05/20 1744 10/07/20 0354 AST 36 38 ALT 22 21 BILITOT 1.1 1.0 ALKPHOS 45 45 LABALBU 4.5 4.0 PROT 7.2 6.5 PT/INR: No results for input(s): PROTIME, INR in the last 72 hours. CARDIAC ENZYMES: Recent Labs 10/05/20 1744 10/06/20 0643 TROPONINI <0.012 <0.012 Procalcitonin: No results found for: PROCAL Objective: Vitals: BP 133/78 Pulse 68 Temp 97.2 F (36.2 C) (Temporal) Resp 15 Ht 5' (1.524 m) Wt 180lb (81.6 kg) SpO2 95% BMI 35.15 kg/m Pulse Ox: SpO2 Av % Min: 92 % Max: 95 % Supplemental O2: Assessment/Plan 1. SOB: pt with increasing SOB over several weeks, mild asthma exacerbation. Echo pending. Stable on RA. Check CT scan to r/o Pulmonary Fibrosis. Symptom duration does not favour asthma or CHF exacerbation. Weeks of months history. 2. Chest pain: initial troponin negative, will trend with another. Pt currently asymptomatic 3. Asthma: cont home inhalers. Stable on RA, pt does not wear O2 at home. 4. Mild hyponatremia: cont to monitor. 5. HTN: cont home meds 6. BPH: cont flomax and proscar 7. Hypothyroidism: cont synthroid 8. RICKY, non-compliant with CPAP -am labs, replace lytes prn -increase activity -DVT prophylaxis: [x] Lovenox [] Heparin [] SCDs [x] Encourage ambulation [] Already on Anticoagulation Advance Directive: Full Code Discharge planning: TBD Signed: JESSE RAMSAY MD Inpatient Medical Services 10/07/2020, 10:37 AM * Angelika Valiente DTR - 10/07/2020 7:41 AM EDT Nutrition rescreen completed. Pt referred to RD. * Marisol Trevino, PT - 10/06/2020 2:05 PM EDT Physical Therapy Facility/Department: [facility] 2E TELEMETRY Initial Assessment NAME: Doroteo Gong : 1940 Date of Service: 10/06/2020 Discharge Recommendations: Continue to assess pending progress (facility based rehab) PT Equipment Recommendations Equipment Needed: (TBD, may benefit from grab bars in bathroom) Assessment Body structures, Functions, Activity limitations: Decreased functional mobility ;Decreased ADL status;Decreased strength;Decreased safe awareness;Decreased balance;Decreased endurance Assessment: Patient limited by the above impairments. Pt presents to hospital with SOB and chest pain. Able to ambulate 15'x2 w/cane and CGA w/o any episodes of LOB. Pt limited by fatigue and SOB with SpO2 at 92% post ambulation. Educated pt on breathing techniques d/t abnormal breathing patterns at rest. Patient currently unsafe to return home alone, will benefit from continued skilled therapy to improve strength, endurance, and safety. Recommend continued assessment and facility based rehab. Prognosis: Good Decision Making: Medium Complexity History: Presents to hospital w/ SOB and chest pain. PMH listed below. Exam: [facility] Clinical Presentation: At baseline, pt lives alone with 5 steps to get into house with bilat handrails. Pt uses cane at all times and is independent with ADLs, driving, and transfers and gets groceries delivered to house. Currently, pt unable to ambulate further than 15' x2 d/t SOB and fatigue. Patient currently unsafe to return home alone, will benefit from continued skilled therapy to improve strength, endurance, and safety. Recommend continued assessment and facility based rehab. PT Education: Goals;PT Role;Plan of Care;Gait Training;General Safety;Functional Mobility Training;Energy Conservation;Transfer Training;Equipment Patient Education: Pt educated on breathing techniques Barriers to Learning: none REQUIRES PT FOLLOW UP: Yes Activity Tolerance Activity Tolerance: Patient limited by fatigue;Patient limited by endurance Activity Tolerance: Pt limited by SOB and weakness Patient Diagnosis(es): The encounter diagnosis was Shortness of breath. has a past medical history of Arthritis, Asthma, Chronic pain, GERD (gastroesophageal reflux disease), Hyperlipidemia, Kidney stone, Prostate disease, Sleep apnea, and Thyroid disease. has a past surgical history that includes Appendectomy; Cholecystectomy; back surgery (2013); sinussurgery; other surgical history; joint replacement (Right, 2013); Lithotripsy; and other surgical history (Left, 12/19/2017). Restrictions Restrictions/Precautions Restrictions/Precautions: Fall Risk Required Braces or Orthoses?: No Vision/Hearing Vision: Within Functional Limits Hearing: Within functional limits Subjective General Chart Reviewed: Yes Patient assessed for rehabilitation services?: Yes Family / Caregiver Present: No Follows Commands: Within Functional Limits General Comment Comments: Pt ok for therapy per RN. Subjective Subjective: Pt agreeable to therapy. Pain Screening Patient Currently in Pain: Yes Pain Assessment Pain Assessment: 0-10 Pain Level: 3 Pain Location: Chest Pain Orientation: Left Pain Frequency: Intermittent Vital Signs Patient Currently in Pain: Yes Pre Treatment Pain Screening Comments / Details: Pt states he has had intermittent chest pains for the past few days, but none currently. Orientation Orientation Overall Orientation Status: Within Functional Limits Social/Functional History Social/Functional History Lives With: Alone Type of Home: House Home Layout: Two level, Laundry in basement Home Access: Stairs to enter with rails Entrance Stairs - Number of Steps: 5 Entrance Stairs - Rails: Both Bathroom Shower/Tub: Tub/Shower unit Bathroom Toilet: Standard Bathroom Equipment: Tub transfer bench Bathroom Accessibility: Accessible Home Equipment: Cane Receives Help From: (no one. States his nephew comes rarely and neighbors are old and likehe is) ADL Assistance: Independent Homemaking Assistance: Independent Homemaking Responsibilities: Yes Ambulation Assistance: Independent (uses cane) Transfer Assistance: Independent Active Cofounder: Yes Mode of Transportation: Car Occupation: Retired Type of occupation: [employer] Additional Comments: Pt states he gets his groceries delivered to his house. Has difficulty gettinginto house with the 5 steps d/t fatigue and weakness. Cognition Cognition Overall Cognitive Status: WFL Objective Observation/Palpation Posture: Fair Observation: no lines or tubes. AROM RLE (degrees) RLE AROM: WFL AROM LLE (degrees) LLE AROM : WFL Strength RLE Strength RLE: WFL Strength LLE Strength LLE: WFL Strength RUE Strength RUE: WFL Strength LUE Strength LUE: WFL Sensation Overall Sensation Status: WFL (denies numbness/tingling) Bed mobility Supine to Sit: Contact guard assistance Sit to Supine: Minimal assistance (requires assistance with BLE to get into bed d/t weakness) Scooting: Contact guard assistance Comment: Pt denies dizziness, but reports fatigue and SOB upon position change. SpO2 reads 92% sitting EOB. Transfers Sit to Stand: Stand by assistance Stand to sit: Stand by assistance Comment: Pt denies dizziness upon position changes. Performs 1 transfer from EOB and 1 transfer from standard toilet requiring grab bars. Ambulation Ambulation?: Yes More Ambulation?: No Ambulation 1 Surface: level tile Device: Single point cane Gait Deviations: Slow Lisbeth;Increased DILCIA;Decreased step length;Decreased step height Distance: 15' x 2 Comments: Pt limited by SOB and fatigue. SpO2 read 92% post ambulation. Stairs/Curb Stairs?: No Balance Posture: Fair Sitting - Static: Fair Sitting - Dynamic: Fair Standing - Static: Fair Standing - Dynamic: Fair;- Plan Plan Times per week: 6 visits Times per day: Daily Current Treatment Recommendations: Strengthening, ROM, Balance Training, Functional Mobility Training, ADL/Self-care Training, Transfer Training, Endurance Training, Gait Training, Stair training, Neuromuscular Re-education, Safety Education & Training, Home Exercise Program, Equipment Evaluation, Education, & procurement, Patient/Caregiver Education & Training Plan Comment: Goals and/or treatment plan were established in collaboration with patient Safety Devices Type of devices: All fall risk precautions in place, Call light within reach, Gait belt, Nurse notified, Left in bed, Patient at risk for falls Restraints Initially in place: No AM-PAC Score AM-PAC Inpatient Mobility Raw Score : 16 (10/06/20 1406) AM-PAC Inpatient T-Scale Score : 40.78 (10/06/20 1406) Mobility Inpatient CMS 0-100% Score: 54.16 (10/06/20 1406) Mobility Inpatient [facility] G-Code Modifier : CK (10/06/20 140) Goals Short term goals Time Frame for Short term goals: 6 visits Short term goal 1: Doroteo to perform bed mobility mod ind to improve function. Short term goal 2: Doroteo to perform transfers mod ind to improve strength and function. Short term goal 3: Doroteo to ambulate 100' with cane and SBA w/o SpO2 levels dropping to improve safety and endurance. Short term goal 4: Doroteo to negotiate 5 steps with bilateral rail and SBA w/o SpO2 levels droppingto improve safety and endurance. Short term goal 5: Doroteo to perform 1-2 sets of 5-10 reps w/o SpO2 levels dropping to improve ROM and strength. Patient Goals Patient goals : to return home Therapy Time Individual Concurrent Group Co-treatment Time In 1312 Time Out 1329 Minutes 17 Marisol Trevino PT Plan of care supervision transferred to Rehab Services Department Physical Therapist. * Kathia Ward PA-C - 10/06/2020 12:51 PM EDT Images from the original note were not included. Hospitalist Progress Note 10/06/2020 12:51 PM Subjective: Admit Date: 10/05/2020 PCP: ROOPA MADERA MD Room#: 254/2541 Interval History: Follow up note on patient admitted after midnight ADULT DIET; Regular Patient Vitals for the past 96 hrs (Last 3 readings): Weight 10/06/20 0759 180 lb (81.6 kg) 10/05/20 1638 170 lb (77.1 kg) 24HR INTAKE/OUTPUT: Intake/Output Summary (Last 24 hours) at 10/06/2020 1251 Last data filed at 10/06/2020 0811 Gross per 24 hour Intake 240 ml Output Net 240 ml Medications: sodium chloride cetirizine 5 mg Oral Daily polyethylene glycol 17 g Oral Daily sodium chloride flush 5-40 mL Intravenous 2 times per day enoxaparin 40 mg Subcutaneous Daily sodium chloride flush 3 mL Intravenous Q8H finasteride 5 mg Oral Daily levothyroxine 50 mcg Oral Daily pantoprazole 40 mg Oral QAM AC atorvastatin 10 mg Oral Daily tamsulosin 0.4 mg Oral Daily LABS: CBC: Recent Labs 10/05/20 1744 WBC 7.1 RBC 5.28 HGB 16.3 HCT 46.7 MCV 88.4 RDW 14.2 PLT 416 BMP: Recent Labs 10/05/20 1744 NA 130* K 4.2 CL 100 CO2 22 BUN 9 CREATININE 0.81 GLUCOSE 82 CALCIUM 9.8 ANIONGAP 8 LIVER PROFILE: Recent Labs 10/05/20 1744 AST 36 ALT 22 BILITOT 1.1 ALKPHOS 45 LABALBU 4.5 PROT 7.2 PT/INR: No results for input(s): PROTIME, INR in the last 72 hours. CARDIAC ENZYMES: Recent Labs 10/05/20 1744 10/06/20 0643 TROPONINI <0.012 <0.012 Procalcitonin: No results found for: PROCAL Objective: Vitals: BP (!) 140/82 Pulse 73 Temp 97.5 F (36.4 C) (Temporal) Resp 20 Ht 5' (1.524 m) Wt180 lb (81.6 kg) SpO2 93% BMI 35.15 kg/m Pulse Ox: SpO2 Av.5 % Min: 93 % Max: 96 % Supplemental O2: Assessment/Plan 1. SOB: pt with increasing SOB over several weeks, concern for CHF exacerbation vs mild asthma exacerbation. Echo pending. Stable on RA. 2. Chest pain: initial troponin negative, will trend with another. Pt currently asymptomatic 3. Asthma: cont home inhalers. Stable on RA, pt does not wear O2 at home. 4. Mild hyponatremia: cont to monitor. 5. HTN: cont home meds 6. BPH: cont flomax and proscar 7. Hypothyroidism: cont synthroid 8. RICKY, non-compliant with CPAP -am labs, replace lytes prn -increase activity -DVT prophylaxis: [x] Lovenox [] Heparin [] SCDs [x] Encourage ambulation [] Already on Anticoagulation Advance Directive: Full Code Discharge planning: TBD Signed: Kathia Ward PA-C Inpatient Medical Services 10/06/2020, 12:51 PM documented in this [facility] Work Phone: 1(927) 877-921206-26-2021 NoteHospitalist Discharge Summary Doroteo Gong : 1940 Admit date: 10/05/2020 Discharge date: 10/09/20 Admitting Physician: Tono Strong MD Primary Care Physician: ROOPA MADERA MD Discharge Diagnosis: Shortness of breath/ mild bronchitis. Bibasilar atelectasis. Untreated OPSA. Mild Hyponatremia. Hospital Course: Doroteo Gong is a 79 y.o. male admitted for chief complaint of shortness of breath. States he has been having shortness of breath for the last 10-12 days. SOB worse with exertional activity. He denies chest pain, abdominal pain, nausea, vomiting, fever or chills. Denies any peripheral leg edema. Has occasional cough which he reports is mainly from sinus drainage. Denies any recent sick contacts. Has been using his PRN Albuterol inhaler at home. Has received both of his COVID vaccines, last dose in May. Currently on 2 liters NC. Patient was admitted. NC Oxygen started. Pulmonary was consulted. Patient discharged on hoem O2. ADULT DIET; Regular Vitals: BP (!) 152/84 Pulse 67 Temp 97.4 ?F (36.3 ?C) (Temporal) Resp 20 Ht 5' (1.524 m) Wt 180 lb (81.6 kg) SpO2 98% BMI 35.15 kg/m? General appearance: alert and cooperative with exam Lungs: clear to auscultation bilaterally Heart: regular rate and rhythm, S1, S2 normal, no murmur, click, rub or gallop Abdomen: soft, non-tender; bowel sounds normal; no masses, no organomegaly Extremities: extremities normal, atraumatic, no cyanosis or edema Neurologic: No obvious focal neurologic deficits. Recent Labs 10/07/20 0319 10/07/20 0354 WBC 7.6 7.5 HGB 15.2 15.1 PLT 390 410 Recent Labs 10/07/20 0354 NA 129* K 3.9 CL 98 CO2 24 BUN 9 CREATININE 0.69 GLUCOSE 91 Recent Labs 10/07/20 0354 AST 38 ALT 21 BILITOT 1.0 ALKPHOS 45 Significant Diagnostic Studies: ECHO Complete 2D W Doppler W Color Result Date: 10/07/2020 TRANSTHORACIC ECHOCARDIOGRAM PATIENT: Doroteo Gong STUDY DATE: 10/07/2020 : 1940 AGE: 79 HT/WT: 152.4 cm (60 81.7 kg in) (179.6 lb) GENDER: M BP: 133 / 78 LOCATION: [facility] PATIENT Inpatient [facility] STATUS: *ORDERING PHYSICIAN: * Tono Strong *READING PHYSICIAN: * Lawson Guy, *MARKETING CONTENT COORDINATOR: * Jenni Mo MD INDICATIONS: Suspected CHF. CONCLUSIONS SUMMARY: 1. Left ventricle: Systolic function is normal by visual assessment. The estimated ejection fraction is 55%. There are no regional wall motion abnormalities. Doppler parameters are consistent with abnormal left ventricular relaxation (grade 1 diastolic dysfunction). 2. Right ventricle: The cavity size is normal. Systolic function is mildly decreased by visual assessment. Right ventricular systolic pressure is within the normal range. The RV pressure during systole by Doppler is 29 mm Hg. 3. Right atrium: Central venous pressure (est): 3 mm Hg. 4. No significant valve disease. STUDY DATA: Complete transthoracic echocardiogram. Procedure: Image quality was poor. The study was technically limited due to poor acoustic window availability, body habitus, and respiratory interference. Intravenous imaging enhancement (Definity) was administered to opacify the chamber. Definity lot #: [id number]. M-mode, complete 2D, complete spectral Doppler, and color flow Doppler images were acquired and archived for permanent storage and are available for subsequent review. Study status: Routine. Patient status: Inpatient. ECG RHYTHM: NSR FINDINGS LEFT VENTRICLE: Not well visualized. The cavity size is normal. Wall thickness is normal. Systolic function is normal by visual assessment. The estimated ejection fraction is 55%. There are no regional wall motion abnormalities. There is an increased relative contribution of atrial contraction to ventricular filling. The tissue Doppler parameters are abnormal. Doppler parameters are consistent with abnormal left ventricular relaxation (grade 1 diastolic dysfunction). E/e' average: 9.9 RIGHT VENTRICLE: Not well visualized. The cavity size is normal. Systolic function is mildly decreased by visual assessment. Right ventricular systolic pressure is within the normal range. VENTRICULAR SEPTUM: There is no evidence of a ventricular septal defect. LEFT ATRIUM: Not well visualized. The atrium is normal in size. RIGHT ATRIUM: Not well visualized. ATRIAL SEPTUM: Color Doppler shows no shunt. MITRAL VALVE: Structurally normal valve. Doppler: There is no significant regurgitation. AORTIC VALVE: Not well visualized. Probably trileaflet; mildly thickened leaflets. Doppler: There is no significant (more content not included)...[facility]06-26-2021 Hospital Discharge instructions* Discharge Instr - Activity* Guerda Jo RN - 10/09/2020 12:06 PM EDT Up as tolerated * Discharge Instr - Diet* Guerda Jo RN - 10/09/2020 12:06 PM EDT Good nutrition is important when healing from an illness, injury, or surgery. Follow any nutrition recommendations given to you during your hospital stay. If you were given an oral nutrition supplement while in the hospital, continue to take this supplement at home. You can take it with meals, in-between meals, and/or before bedtime. These supplements can be purchased at most local grocery stores, pharmacies, and chain [employer]-stores. If you have any questions about your diet or nutrition, call the hospital and ask for the dietitian. * Discharge Instr - Lab* Oumou Willams RN - 10/08/2020 5:49 PM EDT Your physician has ordered skilled home care services for you. Your home care will be provided by: [facility] [phone] * Discharge Instr - HARDEEP* Guerda Jo RN - 10/09/2020 12:06 PM EDT Continuity of Care Form Patient Name: Doroteo Gong : 1940 Admit date: 10/05/2020 Discharge date: Code Status Order: Full Code Advance Directives: Advance Care Flowsheet Documentation Date/Time Healthcare Directive Type of Healthcare Directive Copy in Chart Healthcare Agent Appointed Healthcare Agent's Name Healthcare Agent's Phone Number 10/06/20 0801 Yes, patient has an advance directive for healthcare treatment Durable power of litigation attorney for health care;Living will No, copy requested from family Next of kin Harshil Murguia [phone] Admitting Physician: Tono Strong MD PCP: ROOPA MADERA MD Discharging Nurse: Discharging Hospital Unit/Room#: 254/2541 Discharging Unit Phone Number: Emergency Contact: Extended Emergency Contact Information Primary Emergency Contact: Harshil Murguia [facility] Relation: Niece/Nephew Past Surgical History: Past Surgical History: Procedure Laterality Date APPENDECTOMY BACK SURGERY 2013 slipped disc CHOLECYSTECTOMY JOINT REPLACEMENT Right 2013 LITHOTRIPSY 3-4 times OTHER SURGICAL HISTORY hemorroid removed OTHER SURGICAL HISTORY Left 12/19/2017 stent placement, cystoscopy and pyelogram, Laser Lithotripsy SINUS SURGERY Immunization History: Immunization History Administered Date(s) Administered COVID-19, Moderna, PF, 100mcg/0.5mL 05/13/2020, 06/10/2020 Active Problems: Patient Active Problem List Diagnosis Code 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 Renal calculi N20.0 Flank pain R10.9 Hypertrophy of prostate with urinary obstruction N40.1, N13.8 Ureteral calculus N20.1 Upper respiratory tract infection due to influenza A virus J10.1 Acute asthma exacerbation J45.901 Shortness of breath R06.02 Isolation/Infection: Isolation No Isolation Patient Infection Status Infection Onset Added Last Indicated Last Indicated By Review Planned Expiration Resolved Resolved By None active Resolved COVID-19 Rule Out 10/05/20 10/05/20 10/05/20 COVID-19, Rapid (Ordered) 10/05/20 Rule-Out Test Resulted INFLUENZA 06/20/19 06/20/19 Aure Wilson RN 06/21/19 Grant Kay RN 06/20/2019 Influenza A 06/21/2019 Afebrile for greater than 24 hours, may discontinue droplet precautions. Received 2 doses of Tamiflu. 2 E notified to dc isolation. Nurse Assessment: Last Vital Signs: BP (!) 144/76 Pulse 64 Temp 96.4 F (35.8 C) (Temporal) Resp 22 Ht 5' (1.524 m) Wt 180 lb (81.6 kg) SpO2 94% BMI 35.15 kg/m Last documented pain score (0-10 scale): Pain Level: 2 Last Weight: Wt Readings from Last 1 Encounters: 10/06/20 180 lb (81.6 kg) Mental Status: {IP PT MENTAL STATUS:} IV Access: {[facility] IV ACCESS:645360760} Nursing Mobility/ADLs: Walking {CHP DME ADLs:331720897} Transfer {CHP DME ADLs:917425679} Bathing {CHP DME ADLs:759133093} Dressing {CHP DME ADLs:867657578} Toileting {CHP DME ADLs:459525955} Feeding {CHP DME ADLs:428381846} Dining Room Coordinator {P DME ADLs:132010063} Med Delivery { HARDEEP MED Delivery:144596489} Wound Care Documentation and Therapy: Elimination: Continence: Bowel: {YES / NO:} Bladder: {YES / NO:} Urinary Catheter: {Urinary Catheter:257577732} Colostomy/Ileostomy/Ileal Conduit: {YES / NO:} Date of Last BM: Intake/Output Summary (Last 24 hours) at 10/09/2020 1206 Last data filed at 10/09/2020 0820 Gross per 24 hour Intake 360 ml Output Net 360 ml I/O last 3 completed shifts: In: 360 [P.O.:360] Out: - Safety Concerns: { HARDEEP Safety Concerns:774325889} Impairments/Disabilities: { HARDEEP Impairments/Disabilities:321389799} Nutrition Therapy: Current Nutrition Therapy: { HARDEEP Diet List:054919349} Routes of Feeding: {[facility] DME Other Feedings:977967938} Liquids: {[facility] liquid thickness:55753} Daily Fluid Restriction: {P DME Yes amt example:393535169} Last Modified Barium Swallow with Video (Video Swallowing Test): {Done Not Done Date:} Treatments at the Time of Hospital Discharge: Respiratory Treatments: Oxygen Therapy: {Therapy; copd oxygen:13632} Ventilator: { CC Vent List:[id number]} Rehab Therapies: {THERAPEUTIC INTERVENTION:4840204526} Weight Bearing Status/Restrictions: {[facility] Weight Bearin} Other Medical Equipment (for information only, NOT a DME order): {EQUIPMENT:784516939} Other Treatments: Patient's personal belongings (please select all that are sent with patient): {[facility] DME Belongings:880172172} RN SIGNATURE: {Esignature:969878098} CASE MANAGEMENT/SOCIAL WORK SECTION Inpatient Status Date: Readmission Risk Assessment Score: Readmission Risk Risk of Unplanned Readmission: 8 Discharging to Facility/ Agency Name: Address: Phone: Fax: Dialysis Facility (if applicable) Name: Address: Dialysis Schedule: Phone: Fax: Senior Lead Developer/Social Sciences Lecturer signature: {Esignature:254784409} PHYSICIAN SECTION Prognosis: {Prognosis:4891659176} Condition at Discharge: {[facility] Patient Condition:443561900} Rehab Potential (if transferring to Rehab): {Prognosis:6560474295} Recommended Labs or Other Treatments After Discharge: Physician Certification: I certify the above information and transfer of Doroteo Gong is necessary for the continuing treatment of the diagnosis listed and that he requires {Admit to Appropriate Level of Care:86192} for {GREATER/LESS:439531958} 30 days. Update Admission H&P: {[facility] DME Changes in HandP:343592905} PHYSICIAN SIGNATURE: {Esignature:449512449} * Additional Instructions* Guerda Jo RN - 10/09/2020 [facility] phone number [phone] [facility]* Diagnosis Shortness of breath- Primary documented in this encounter [facility] Work Phone: Evaluation note* Diagnosis Shortness of breath documented in this encounter [facility] Work Phone: Evaluation note* Diagnosis Aspiration of foreign body, initial encounter- Primary documented in this encounter [facility] Work Phone: Evaluation note* Diagnosis Left flank pain- Primary Abdominal pain, unspecified site Acute left-sided low back pain without sciatica Retention of urine Retention of urine, unspecified Benign prostatic hyperplasia with urinary hesitancy documented in this encounter [facility] Work Phone: Evaluation note* Diagnosis Renal calculi Calculus of kidney Incomplete bladder emptying documented in this encounter [facility] Work Phone: Evaluation note* Diagnosis Primary osteoarthritis of left knee- Primary Primary localized osteoarthrosis, lower leg Primary osteoarthritis of right knee Primary localized osteoarthrosis, lower leg documented in this encounter [facility] note* Diagnosis 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 of left knee Primary localized osteoarthrosis, lower leg documented in this encounter [facility] note* Diagnosis Pulmonary emphysema, unspecified emphysema type (HCC)- Primary Osteoarthritis, unspecified osteoarthritis type, unspecified site Pain of right great toe documented in this encounter [facility] note* Diagnosis Interstitial lung disease (HCC)- Primary Postinflammatory pulmonary fibrosis Interstitial lung disease (HCC) Postinflammatory pulmonary fibrosis [facility] Diagnosis Kidney stone Calculus of kidney [facility]* Diagnosis Hypertrophy of prostate with urinary obstruction- Primary Hypertrophy of prostate with urinary obstruction and other lower urinary tract symptoms (LUTS) [facility]* Diagnosis Hypertrophy of prostate with urinary obstruction- Primary Hypertrophy of prostate with urinary obstruction and other lower urinary tract symptoms (LUTS) [facility]* Diagnosis Primary osteoarthritis of both knees- Primary Primary localized osteoarthrosis, lower leg Callus of foot Corns and callosities [facility]* Diagnosis Difficulty in walking- Primary Generalized weakness [facility]* Diagnosis Shortness of breath- Primary Shortness of breath Edema leg Edema [facility]* Diagnosis Moderate persistent asthma without complication- Primary Hospital discharge follow-up Other follow-up examination RICKY (obstructive sleep apnea) Obstructive sleep apnea (adult) (pediatric) documented in this encounter [facility] note* Diagnosis 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 and other lower urinary tract symptoms (LUTS) [facility]* Diagnosis 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 and other lower urinary tract symptoms (LUTS) [facility] Diagnosis Inability to walk- Primary Difficulty in walking Inability to walk Difficulty in walking Chronic pain of left knee Bilateral leg edema Edema Chronic obstructive pulmonary disease, unspecified COPD type (HCC) Osteoarthritis of left knee, unspecified osteoarthritis type Debility Unspecified debility Declining functional status History of urinary retention At risk for delirium Polypharmacy Issue of repeat prescriptions documented in this encounter [facility]* Diagnosis Chronic cough- Primary Cough Chronic rhinitis documented in this encounter [facility]* Diagnosis History of atrial flutter- Primary Personal history of other diseases of circulatory system 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) RICKY (obstructive sleep apnea) Obstructive sleep apnea (adult) (pediatric) Dependence on nocturnal oxygen therapy documented in this encounter [facility]* Diagnosis Onset Date Resolution Status Asymptomatic bacteriuria acu te At risk for falls acute Inability to perform activities of daily living acute Weakness acute Chronic pain of left knee [facility] Work Phone: Evaluation note* Diagnosis Encounter for preoperative pulmonary examination- Primary Pulmonary emphysema, unspecified emphysema type (HCC) Restrictive lung disease Other diseases of lung, not elsewhere classified RICKY (obstructive sleep apnea) Obstructive sleep apnea (adult) (pediatric) Chronic hypoxic respiratory failure, on home oxygen therapy (HCC) Pulmonary HTN (HCC) History of atrial flutter Personal history of other diseases of circulatory system History of COVID-19 documented in this encounter [facility]* Diagnosis Goals of care, counseling/discussion- Primary Anxiety Anxiety state, unspecified Debility Unspecified debility At risk for constipation Palliative care encounter documented in this encounter [facility]* Diagnosis Hypertrophy of prostate with urinary obstruction- Primary Hypertrophy of prostate with urinary obstruction and other lower urinary tract symptoms (LUTS) Incomplete bladder emptying [facility]* Diagnosis Urinary tract infection without hematuria, site unspecified- Primary Urinary tract infection without hematuria, site unspecified Moderate malnutrition (CMS/HCC) (HCC) documented in this encounter [facility]* Diagnosis Hypertrophy of prostate with urinary obstruction- Primary Hypertrophy of prostate with urinary obstruction and other lower urinary tract symptoms (LUTS) Incomplete bladder emptying Nephrolithiasis Calculus of kidney documented in this encounter [facility] noteNo assessment information availableWACMC Healthcare System Work Phone: Hospital Discharge instructions* Instructions* Susanne Thrasher MD - 02/25/2021 Follow-up with your doctor on Sunday for reevaluation. Return to the emergency department for new or worsening symptoms or seeing a doctor. [facility] Work Phone: Hospital Discharge instructions* Attachments The following attachments cannot be sent through Care Everywhere. * Low Back Pain: Exercises (Icelandic) * Low Back Pain: General Info (Icelandic) * Urinary Retention (Icelandic) [facility] Work [facility]: Hospital Discharge instructions* Attachments The following attachments cannot be sent through Care Everywhere. * Generalized Weakness (Icelandic) * Preventing Falls in Older Adults (Icelandic) * Getting Up From a Fall (Icelandic) [facility] Diagnostic Procedure Only (Routine) - Pending Review Specialty Diagnoses / Procedures Referred By Contac t Referred To Contact XR IMAGING Diagnoses Primary osteoarthritis of left knee Procedures XR KNEE GENERAL 4V AP BOTH/PA BOTH/LAT/MERC LEFT RADIOLOGIC EXAM KNEE COMPLETE 4/MORE VIEWS Roopa Madera MD [facility] [place] [address] Xr Imaging Referral ID Status Reason Start Date Expiration Date Visits Requested Visits Authorized [id number] Pending Review Auto-Generat ed Referral 10/10/2021 11/09/2022 1 1 [facility] for referral (narrative)* Consultation (Routine) - Pending Review Specialty Diagnoses / Procedures Referred By Gloria payan Referred To Contact Cardiology Diagnoses History of atrial flutter Procedures ID OFFICE/OUTPATIENT NEW HIGH MDM 60-74 MINUTES Jaylyn Ortiz APRN - AIRCRAFT LAUNCH AND REC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 [facility] [facility] [address] [place] [address] Aguilar Ordaz MD [address] [facility] [address] [place] [address] Referral ID Status Reason Start Date Expiration Date Visits Requested Visits Authorized [id number] Pending Review Specialty Services Required 3 03/04/2024 1 1 [facility] Consultation (Routine) - Authorized Specialty Diagnoses / Procedures Referred By Contac t Referred To Contact Cardiology Diagnoses Chronic hypoxic respiratory failure, on home oxygen therapy (HCC) Pulmonary HTN (HCC) History of atrial flutter Procedures ID OFFICE/OUTPATIENT NEW HIGH MDM 60 MINUTES Ana Blake APRN [address], [place] [address] [address] [place] [address] Referral ID Status Reason Start Date Expiration Date Visits Requested Visits Authorized [id number] Authorized Specialty Services Required 05/21/2023 05/20/2024 1 1 [facility]No reason for referral information availableWACMC Healthcare System Work Phone: Reason for visit Narrative* Auth/Cert (Routine) Specialty Diagnoses / Procedures Referred By Contac t Referred To Contact Diagnoses Urinary tract infection without hematuria, site unspecified Procedures n39.0 Chelle Enrique DO [address] [place] [address] Phone: tel: fax: [facility] [address] [place] [address] Phone: tel: Referral ID Status Reason Start Date Expiration Date Visits Re quested Visits Authorized [id number] 1 1 [facility] Summary Purpose Family History No Family History Records FoundNo Family History Records FoundNo Family History Records FoundNo Family History Records FoundNo Family History Records FoundNo Family History Records FoundNo Family History Records Found Advance Directives No Advanced Directives Records Found Date Activated Date Inactivated Comments 04/08/2024 11:32 AM 04/11/2024 3:35 PM Question Answer Comments ICU transfer: Yes Intubation: No Date Activated Date Inactivated Comments 04/07/2024 12:00 PM 04/08/2024 11:32 AM Date Activated Date Inactivated Comments 02/13/2023 4:17 PM 02/19/2023 3:13 PM Date Activated Date Inactivated Comments 12/31/2022 2:04 AM 01/04/2023 3:28 PM Date Activated Date Inactivated Comments 03/21/2022 8:37 AM 03/27/2022 5:16 PM Healthcare Agents on File Name Relationship Healthcare Agent Marcellawi daphne Communication Solange Rodriguez Other Health Care Agent Harshil Liang Alternate Health Care Agent Documents on File Type Date Recorded 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 Advance Directives and Living Will Power of Aqua Ammonia Operator Latest Code Status on File Code Status Date Activated Date Inactivated Comments Full Code 12/19/2017 6:26 PM 12/20/2017 7:59 PM Full Code 12/19/2017 8:36 AM 12/19/2017 5:43 PM Latest Code Status on File Code Status Date Activated Date Inactivated Comments Full Code 06/20/2019 9:26 AM Full Code 12/19/2017 6:26 PM 12/20/2017 7:59 PM Latest Code Status on File Code Status Date Activated Date Inactivated Comments Full Code 06/20/2019 9:26 AM 06/22/2019 4:47 PM Documents on File Type Date Recorded 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 ACP-Advance Directive ACP-Power of Aqua Ammonia Operator Latest Code Status on File Code Status Date Activated Date Inactivated Comments Full Code 10/06/2020 9:21 AM Full Code 06/20/2019 9:26 AM 06/22/2019 4:47 PM Latest Code Status on File Code Status Date Activated Date Inactivated Comments Full Code 10/06/2020 9:21 AM 10/09/2020 7:02 PM Documents on File Type Date Recorded 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 ACP-Advance Directive ACP-Power of Aqua Ammonia Operator Latest Code Status on File Code Status Date Activated Date Inactivated Comments Full Code 10/06/2020 9:21 AM 10/09/2020 7:02 PM Full Code 06/20/2019 9:26 AM 06/22/2019 4:47 PM Full Code 12/19/2017 6:26 PM 12/20/2017 7:59 PM Full Code 12/19/2017 8:36 AM 12/19/2017 5:43 PM Latest Code Status on File Code Status Date Activated Date Inactivated Comments Full Code 03/21/2022 8:37 AM 03/27/2022 5:16 PM Code Status History Code Status Date Activated Date Inactivated Comments Full Code 02/23/2022 8:01 PM 02/28/2022 8:06 PM Latest Code Status on File Code Status Date Activated Date Inactivated Comments Full Code 03/21/2022 8:37 AM 03/27/2022 5:16 PM Code Status History Code Status Date Activated Date Inactivated Comments Full Code 02/23/2022 8:01 PM 02/28/2022 8:06 PM Latest Code Status on File Code Status Date Activated Date Inactivated Comments Full Code 12/31/2022 2:04 AM 01/04/2023 3:28 PM Code Status History Code Status Date Activated Date Inactivated Comments Full Code 03/21/2022 8:37 AM 03/27/2022 5:16 PM Full Code 02/23/2022 8:01 PM 02/28/2022 8:06 PM Latest Code Status on File Code Status Date Activated Date Inactivated Comments Full Code 02/13/2023 4:17 PM Code Status History Code Status Date Activated Date Inactivated Comments Full Code 12/31/2022 2:04 AM 01/04/2023 3:28 PM Full Code 03/21/2022 8:37 AM 03/27/2022 5:16 PM Full Code 02/23/2022 8:01 PM 02/28/2022 8:06 PM Latest Code Status on File Code Status Date Activated Date Inactivated Comments Full Code 02/13/2023 4:17 PM 02/19/2023 3:13 PM Code Status History Code Status Date Activated Date Inactivated Comments Full Code 12/31/2022 2:04 AM 01/04/2023 3:28 PM Full Code 03/21/2022 8:37 AM 03/27/2022 5:16 PM Full Code 02/23/2022 8:01 PM 02/28/2022 8:06 PM Latest Code Status on File Code Status Date Activated Date Inactivated Comments Full Code 02/13/2023 4:17 PM 02/19/2023 3:13 PM Advance Directive Response Recorded Date/ Time Name of Medical Power of Aqua Ammonia Operator NASIR MURGUIA March 18, 2023 6:08pm Living Will Yes March 18 6:08pm Power of Aqua Ammonia Operator Yes March 18, 2023 6:08pm Date Activated Date Inactivated Comments 02/13/2023 4:17 PM 02/19/2023 3:13 PM Date Activated Date Inactivated Comments 12/31/2022 2:04 AM 01/04/2023 3:28 PM Date Activated Date Inactivated Comments 03/21/2022 8:37 AM 03/27/2022 5:16 PM Date Activated Date Inactivated Comments 02/23/2022 8:01 PM 02/28/2022 8:06 PM Date Activated Date Inactivated Comments 04/07/2024 12:00 PM Date Activated Date Inactivated Comments 02/13/2023 4:17 PM 02/19/2023 3:13 PM Date Activated Date Inactivated Comments 12/31/2022 2:04 AM 01/04/2023 3:28 PM Date Activated Date Inactivated Comments 03/21/2022 8:37 AM 03/27/2022 5:16 PM Date Activated Date Inactivated Comments 02/23/2022 8:01 PM 02/28/2022 8:06 PM Healthcare Agents on File Name Relationship Healthcare Agent Relationshi p Communication Harshil Rai 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 Do not stop any medications and to discuss this with her primary care physician. * Attachments The following attachments cannot be sent through Care Everywhere. * Back Pain (Icelandic) * Abdominal Pain (Icelandic) documented in this encounter Assessments Diagnosis Generalized abdominal pain- Primary Abdominal pain, generalized Acute low back pain without sciatica, unspecified back pain laterality Diagnosis Renal calculi Calculus of kidney Diagnosis Influenza with respiratory manifestation other than pneumonia Influenza with other respiratory manifestations Exacerbation of asthma, unspecified asthma severity, unspecified whether persistent Hypoxia Hypoxemia Influenza A Influenza with other respiratory manifestations Acute asthma exacerbation Unspecified asthma, with exacerbation History of Present Illness * Lyssa Smith RCP - 06/22/2019 2:18 PM EDT Spoke to RN regarding cancelled hypertonic saline dose and that it is a Respiratory therapy medication and RT will document RT medications and work collaboratively with nursing regarding our medications. * Lyssa Smith RCP - 06/22/2019 1:03 PM EDT [facility] Respiratory Care Department Progress Note SpO2 at rest on RA = 93 HR at rest = 86 SpO2 with ambulation on RA = 90 Peak HR = 92 Distance Walked = 50 Recovery SpO2 with ambulation = 93 Recovery HR = 87 Recovery SpO2 with 0lpm with ambulation (if needed) = 93 Qualify for home O2 Y/N = No Patient mobile at home Y/N = Yes * Unique Encinas MD - 06/21/2019 12:58 PM EST Hospitalist Progress Note 06/21/2019 12:58 PM [phone]: Please page wa @ [phone] for patient care issues. [phone]: Please page [facility] night Hospitalist for any issues. Subjective: Admit Date: 06/20/2019 PCP: ROOPA MADERA MD No overnight issues. Breathing improved slightly, has pain in the right neck Denies chest pain, abdominal pain, nausea, vomiting, diarrhea, constipation, fevers, or chills. DIET GENERAL; Dietary Nutrition Supplements: Clear Liquid Oral Supplement Patient Vitals for the past 96 hrs (Last 3 readings): Weight 06/20/19 0832 181 lb 12.8 oz (82.5 kg) 06/20/19 0545 186 lb (84.4 kg) Medications: doxycycline hyclate 100 mg Oral BID febuxostat 40 mg Oral Daily finasteride 5 mg Oral Daily ipratropium 2 spray Nasal 4x Daily levothyroxine 50 mcg Oral Daily montelukast 10 mg Oral Nightly simvastatin 20 mg Oral Nightly sodium chloride flush 10 mL Intravenous 2 times per day enoxaparin 40 mg Subcutaneous Daily ipratropium-albuterol 1 ampule Inhalation Q4H WA methylPREDNISolone 40 mg Intravenous Q6H Followed by [START ON 06/22/2019] predniSONE 40 mg Oral Daily oseltamivir 75 mg Oral BID fluticasone 2 spray Each Nostril Daily pantoprazole 20 mg Oral QAM AC tamsulosin 0.4 mg Oral Daily guaiFENesin 600 mg Oral BID polyethylene glycol 17 g Oral Daily LABS: CBC: Recent Labs 06/20/19 0602 06/21/19 0330 WBC 5.3 10.5 RBC 5.39 5.52 HGB 15.5 15.9 HCT 46.0 47.0 MCV 85.5 85.1 RDW 14.6* 14.5 PLT 345 409 BMP: Recent Labs 06/20/19 0602 06/21/19 0330 NA 134* 134* K 4.1 5.1 CL 99 95* CO2 23 26 BUN 7 9 CREATININE 0.67 0.69 GLUCOSE 107* 167* CALCIUM 9.0 9.9 ANIONGAP 13 13 LIVER PROFILE:No results for input(s): AST, ALT, BILITOT, ALKPHOS, LABALBU, PROT in the last 72 hours. PT/INR: No results for input(s): PROTIME, INR in the last 72 hours. CARDIAC ENZYMES: Recent Labs 06/20/19 0602 TROPONINI <0.012 Procalcitonin: No results found for: PROCAL Objective: Vitals: BP 125/76 Pulse 82 Temp 98.5 F (36.9 C) (Temporal) Resp 20 Ht 5' (1.524 m) Wt 181lb 12.8 oz (82.5 kg) SpO2 94% BMI 35.51 kg/m Pulse Ox: SpO2 Av.3 % Min: 93 % Max: 96 % Supplemental O2: O2 Flow Rate (L/min): 3.5 L/min(decreased to 3) General appearance: No apparent distress, appears stated age and cooperative with exam HEENT: Normal cephalic, atraumatic without obvious deformity. Pupils equal, round, and reactive to light. Extra ocular muscles intact. Conjunctivae/corneas clear. Tenderness of the right eustachian tube area Neck: Supple, with full range of motion. No jugular venous distention. Trachea midline. No lymphadenopathy. Respiratory: Increasedl respiratory effort. Improved AE since yesterday, using accessory muscles ofresp Cardiovascular: Regular rate and rhythm with normal S1/S2 without murmurs, rubs or gallops. Abdomen: Soft, non-tender, non-distended with normal bowel sounds. No rebound or guarding. Musculoskeletal: No clubbing, cyanosis or edema bilaterally. Full range of motion without deformity. Skin: Skin color, texture, turgor normal. No rashes or lesions. Neurologic: Neurovascularly intact without any focal sensory/motor deficits. Cranial nerves: II-XIIintact, grossly non-focal. Assessment and Plan: # Influenza A viral associated bronchitis - tamiflu # Right salpingitis - tenderness of the eustachian tube, has productive yellow sputum, start levaquin, patient allergic to penicillin (only rash, nausea but declined it) sputum will be sent for gram stain and C&S # Acute hypoxic resp failure - O2 supplementation # Acute asthma exacerbation - bronchodilators and steroids # Class 2 obesity All test and lab results reviewed Consult notes reviewed Am labs, replace lytes prn PT/OT -DVT prophylaxis: [] Lovenox [] Heparin [] SCDs [x] Encourage ambulation [] Already on Anticoagulation Advance Directive: Full Code Discharge planning: TBD UNIQUE ENCINAS MD, Division of Hospitalist Medicine Inpatient Medical Services This report was created using the [employer] Speaking voice- activated system. Despiteprompt dictation and careful editorial review, there may be subtle contextual errors in this report, due to misrecognition of the spoken word. * Lolita Bowen, RD, LD - 06/21/2019 9:24 AM EST Nutrition Assessment Type and Reason for Visit: Initial, Positive Nutrition Screen Nutrition Recommendations: 1. Continue with General diet. 2. Pt wants to avoid milky ONS at this time. Pt agreed to trial Ensure clear once daily. Will send with lunch per MNT protocol. Ensure Clear provides 240 kcals, 8 g protein per serving. 3. Please document pt's PO intakes via flowsheet to accurately assess PO intake adequacy. 4. Glucose elevated likely with Solu Medrol. No noted hx of DM. 5. Monitor intakes, wts, and labs. RD will follow. Nutrition Assessment: Pt admit for influenza A. Pt reports decreased appetite for >1 week. Pt reports that he was at one point trying to lose some wt, hence wt loss in the past 6 months. Pt statesthat he sometimes has difficulty chewing. Pt wears dentures. Pt selects softer textures; denies difficulty swallowing. Pt wants to avoid dairy; pt states he has mucus. Malnutrition Assessment: Malnutrition Status: At risk for malnutrition Context: Acute illness or injury Findings of the 6 clinical characteristics of malnutrition (Minimum of 2 out of 6 clinical characteristics is required to make the diagnosis of moderate or severe Protein Calorie Malnutrition based on AND/ASPEN Guidelines): 1. Energy Intake-Less than or equal to 75% of estimated energy requirement, Greater than or equal to 7 days 2. Weight Loss-(PT reports intentional 7% wt loss in 6 months based on CBW 181# and wt of 194# (12/2018)), 3. Fat Loss-Unable to assess, 4. Muscle Loss-Unable to assess, 5. 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 Signs and symptoms: as evidenced by Diet history of poor intake, Patient report of Objective Information: Nutrition-Focused Physical Findings: +2 RLE edema; NA 134, K+ 5.1 from 4.1, Cl 95, glucose 167, 107, H/H wnl, GFR >60 Wound Type: (left upper arm abrasion) Current Nutrition Therapies: Oral Diet Orders: General Oral Diet intake: 76-100%(Eats small meals; pt still reporting decreased appetite) Oral Nutrition Supplement (ONS) Orders: None Anthropometric Measures: Ht: (Pt confirmed height of 60 in) Current Body Wt: 181 lb (82.1 kg) Admission Body Wt: 181 lb (82.1 kg) Usual Body Wt: 194 lb (88 kg)(01/09/19) % Weight Change: , PT reports intentional 7% wt loss in 6 months based on CBW 181# and wt of 194# (12/2018) [place] Body Wt: 106 lb (48.1 kg), % [place] Body 171% BMI Classification: BMI 35.0 - 39.9 Obese Class II Nutrition Interventions: Continue current diet, Start ONS Continued Inpatient Monitoring Nutrition Evaluation: Evaluation: Goals set Goals: Pt will receive >75% of meals/supplements Monitoring: Meal Intake, Supplement Intake, Diet Tolerance, I&O, Weight, Pertinent Labs, Monitor Bowel Function Contact Number: [phone] * Saida Angeles RN - 06/20/2019 8:35 PM EST Patient stated that he does not take mirtazipine at home anymore. Patient also stated that he does not take lexapro at home either; upsets my stomach. Will contact [facility] to discuss medications. Will continue to monitor patient. Patient is sitting quietly at the side of the bed, no complaints of pain. 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 [address] [place] [address] [facility] [address] [place] [id number] Referral ID Status Reason Start Date Expiration Date V isits Requested Visits Authorized [id number] Open Specialty Services Required 06/05/2021 06/05/2022 1 1 Scheduling Instructions [facility] [place] [facility] - [place] [address] [place] [address] 3 [place] [address] Specialty Diagnoses / Procedures Referred By Contac t Referred To Contact Radiology Diagnoses Renal calculi Incomplete bladder emptying Procedures US RETROPERITONEAL COMPLETE Nery Leggett PA-C [address] [address] Referral ID Status Reason Start Date Expiration Date V isits Requested Visits Authorized [id number] Pending Review 06/14/2021 06/14/2022 1 1 Specialty Diagnoses / Procedures Referred By Contac t Referred To Contact CT IMAGING Diagnoses Interstitial pulmonary disease (HCC) Procedures CT CHEST WO IVCON DIAGNOSTIC COMPUTED TOMOGRAPHY THORAX W/O CNTRST Roopa Madera MD [address] [place] [address] [place] [address] Ct Imaging Referral ID Status Reason Start Date Expiration Date Visits Requested Visits Authorized [id number] Pending Review Auto-Generat ed Referral 06/12/2022 07/12/2023 1 1 Specialty Diagnoses / Procedures Referred By Contac t Referred To Contact Radiology Diagnoses Interstitial lung disease (HCC) Procedures CT chest wo IV contrast Roopa Madera MD [address] [place] [address] Referral ID Status Reason Start Date Expiration Date Visits Re quested Visits Authorized [id number] Closed 06/13/2022 12/10/2022 1 1 Specialty Diagnoses / Procedures Referred By Contac t Referred To Contact Diagnoses Chronic pain of left knee Ez Velázquez MD [address] [place] [address] Referral ID Status Reason Start Date Expiration Date Visits Re quested Visits Authorized [id number] Closed 1 1 Medications Administered Section Inactive Administered Medications - up to 3 most recent administrations Medication Order MAR Action Action Date Dose Rate Site triamcinolone acetonide 80 mg injection (KeNALog 40) 80 mg, INTRA-ARTICULAR, ONCE, 1 dose, On 10/10/21 at 1430 Given by LIP 10/10/2021 2:35 PM EDT 80 mg Kn ee, Left Inactive Administered Medications - up to 3 most recent administrations Medication Order MAR Action Action Date Dose Rate Site triamcinolone acetonide 80 mg injection (KeNALog 40) 80 mg, INTRA-ARTICULAR, ONCE, 1 dose, On Sun06/12/22 at 1430 Given by [facility] 06/12/2022 2:20 PM EST 80 mg Kn ee, Right Inactive Administered Medications - up to 3 most recent administrations Medication Order MAR Action Action Date Dose Rate Site triamcinolone acetonide 40 mg injection (KeNALog 40) 40 mg, INTRA-ARTICULAR, ONCE, 1 dose, On Sun10/23/22 at 1530 Given by [facility] 10/23/2022 3:18 PM EDT 40 mg Kn ee, Left Chief Complaint and Reason for Visit Chief Complaint DEBILITY, UTI DEBILITY, UTI DEBILITY, UTI DEBILITY, UTI Reason for Visit Asymptomatic bacteri uria At risk for falls Inability to perform activities of daily living Weakness Chronic pain of left knee Chief Complaint Admit Date LAB WORK April 18, 2024 6: 25am SENIOR CARE LAB WORK July 15, 2024 4: 00am Additional Source Comments (unrecognized sect ion and content) No Status Records FoundNo Status Records FoundNo Status Records FoundNo Status Records FoundNo Status Records FoundNo Status Records FoundNo Status Records Found INFORMATION SOURCE (unrecogn ized section and content) DATE CREATED AUTHOR 05/19/2018 [facility] [employer] DATE CREATED AUTHOR AUTHOR'S ORGANIZ ATION 12/26/2018 [facility] [employer] DATE CREATED AUTHOR AUTHOR'S ORGANIZ ATION 09/08/2021 [facility] DATE CREATED AUTHOR AUTHOR'S ORGANIZ ATION 09/24/2022 [facility] DATE CREATED AUTHOR AUTHOR'S ORGANIZ ATION 08/14/2023 [facility] DATE CREATED AUTHOR AUTHOR'S ORGANIZ ATION 05/01/2024 [facility] DATE CREATED AUTHOR AUTHOR'S ORGANIZ ATION 10/06/2024 [facility] Reason for Visit (unrecogniz ed section and content) Reason Comments Extremity Weakness Specialty Diagnoses / Procedures Referred By Contgela t Referred To Contact Diagnoses Inability to walk Procedures .. Kishan Carl MD [address] [address] [facility] Emergency Dept [address] [place] [address] Referral ID Status Reason Start Date Expiration Date Visits Re quested Visits Authorized [id number] 1 1 Reason Comments Shortness of Breath Specialty Diagnoses / Procedures Referred By Gloria t Referred To Contact Diagnoses Shortness of breath Edema leg Procedures . Jonathan Nickerson MD [address] [facility], [address] [place] [address] [facility] 4s Telemetry [address] [place] [address] Referral ID Status Reason Start Date Expiration Date Visits Re quested Visits Authorized [id number] 1 1 Reason Comments Abdominal Pain Reason Comments Flank Pain left kidney/flank pa in that began sunday, no n/v, some problems urinating. hx of kidney stones. Reason Comments Refill Request Reason Comments Constipation Reason Comments Bilateral Knee Pain left knee is worse Voice Disorder Reason Comments Patient Update Reason Comments Patient Question Reason Comments Knee Pain right Reason Onset Date Comments Cancelled Appointment 07/17/2022 Error (VOID this visit) 07/17/[address] Reason Comments Pain Bilateral feet Reason Comments Benign Prostatic Hypertrophy Nephrolithiasis Reason Comments Med Change Request Reason Comments Leg Pain Left thigh pain Toe Pain (Toe) Right big toe Reason Comments Weakness, Gen Fall Reason Comments Hospital Follow-up Asthma Reason Comments Other Patient here for keke eysenia trial. Patient schwartz removed 2 weeks ago Reason Comments Patient Update Therapy Reason Comments New Patient Chronic cough Reason Comments Follow-up Sleep Apnea Asthma 1-MONTH APPT.-[facility] ONIC RHINITISCHRONIC COUGH Reason Comments Follow-up Sleep Apnea Asthma [facility] -Clearance For Knee Replacement Reason Onset Date Comments Appointment Request 07/03/2023 Reason Comments Referral Request Reason Comments Benign Prostatic Hypertrophy Chronic ind welling catheter Changes performed by SNF Reason Onset Date Comments Hospital Follow-up 04/08/2024 Reason Comments Abdominal Pain Mid Lower Abdomen Specialty Diagnoses / Procedures Referred By Gloria t Referred To Contact Diagnoses Urinary tract infection without hematuria, site unspecified Procedures n39.0 Chelle Enrique DO [address] [place] [address] Phone: tel: fax: [facility] Medical Surgical Unit [facility] [address] [place] [address] Phone: tel: Referral ID Status Reason Start Date Expiration Date Visits Re quested Visits Authorized [id number] 1 1 Reason Onset Date Comments Other 04/17/2024 Patient update, apt confirmation Reason Comments Follow-up Hospital follow up f or retention. Has schwartz in place, denies any issues since catheter placement Ordered Prescriptions (unrec ognized section and content) Prescription Sig Dispensed Refills Start Date End Da te mometasone-formoterol (DULERA) 100-5 MCG/ACT inhaler Inhale 2 puffs into the lungs 2 times daily 1 Inhaler 3 10/09/2020 Prescription Sig Dispensed Refills Start Date End Da te docusate sodium (COLACE) 100 MG capsule Take 1 capsule by mouth 2 times daily 30 capsule 0 06/05/2021 HYDROcodone-acetaminophe n (NORCO) 5-325 MG per tabletIndications:Left flank pain,Acute left-sided low back pain without sciatica Take 1 tablet by mouth every 6 hours as needed for Pain for up to 3 days. 9 tablet 0 06/05/2021 06/08/2021 Scheduled Active and Recently Administ ered Medications (unrecognized section and content) Medication Order 10/07/2020 10/08/2020 10/09/2020 atorvastatin (LIPITOR) tablet 10 mg 10 mg, Oral, DAILY, First dose on Sun10/06/20 at 0900, Substituted for Simvastatin (ZOCOR). 0844 (Given - Provider: Kristi Kwong RN) 0836 (Given - Provider: Nery Valiente RN) 0928 (Given - Provider: Guerda Jo, BELINDA) cetirizine (ZYRTEC) tablet 5 mg 5 mg, Oral, DAILY, First dose on Sun10/06/20 at 0945, Substituted for Loratadine (CLARITIN). 0844 (Given - Provider: Kristi Kwong RN) 0835 (Given - Provider: Nery Valiente RN) 0928 (Given - Provider: Guerda Jo, BELINDA) enoxaparin (LOVENOX) injection 40 mg 40 mg, Subcutaneous, DAILY, First dose on Sun10/06/20 at 0945 0844 (Given - Provider: Kristi Kwong RN) 0834 (Given - Provider: Nery Valiente RN) 0929 (Given - Provider: Guerda Jo, BELINDA) finasteride (PROSCAR) tablet 5 mg 5 mg, Oral, DAILY, First dose on Sun10/06/20 at 0900, Women should not handle crushed or broken finasteride tablets when they are or may potentially be , due to potential risk to the fetus. 0844 (Given - Provider: Kristi Kwong RN) 0835 (Given - Provider: Nery Valiente RN) 0928 (Given - Provider: Guerda Jo RN) ipratropium (ATROVENT) 0.06 % nasal spray 2 spray 2 spray, Nasal, 4 TIMES DAILY, First dose on Sun10/06/20 at 2130 0845 (Given - Provider: Kristi Kwong RN)1249 (Given - Provider: Kristi Kwong RN)1749 (Not Given - Provider: Kristi Kwong RN - Reason: Patient/family refused)2018 (Given - Provider: Kathryn Amado RN) 0836 (Given - Provider: Nery Valiente RN)1540 (Given - Provider: Nery Valiente RN)1834 (Given - Provider: Nery Valiente RN)2046 (Not Given - Provider: Kathryn Amado RN - Reason: Other) 0927 (Given - Provider: Guerda Jo RN)1300 (Due)1700 (Due)2100 (Due) levothyroxine (SYNTHROID) tablet 50 mcg 50 mcg, Oral, DAILY, First dose on Sun10/06/20 at 0700, Tube feeding (TF) interaction, obtain physician order to manage, recommend holding TF for 30 minutes before and after dose. 0603 (Given - Provider: Kathryn Amado RN) 0555 (Given - Provider: Kathryn Amado RN) 0553 (Given - Provider: Kathryn Amado RN) mometasone-formoterol (DULERA) 100-5 MCG/ACT inhaler 2 puff 2 puff, Inhalation, 2 TIMES DAILY, First dose on Sun10/08/20 at 1245, Rinse mouth out with water (without swallowing) after every dose. 1353 (Not Given - Provider: Kaitlin Masters RCP - Reason: Medication not available)2235 (Given - Provider: Diane Garcia RCP) 0800 (Due)1999 (Due) pantoprazole (PROTONIX) tablet 40 mg 40 mg, Oral, DAILY BEFORE BREAKFAST, First dose on Sun10/06/20 at 0700, Do not crush or break. Substituted for Omeprazole (PRILOSEC). 0603 (Given - Provider: Kathryn Amado RN) 0555 (Given - Provider: Kathryn Amado RN) 0553 (Given - Provider: Kathryn Amado RN) polyethylene glycol (GLYCOLAX) packet 17 g 17 g, Oral, DAILY, First dose on Sun10/06/20 at 0945 0844 (Given - Provider: Kristi Kwong RN) 0834 (Given - Provider: Nery Valiente RN) 0929 (Given - Provider: Guerda Jo RN) sodium chloride flush 0.9 % injection 3 mL(Linked Group 1) 3 mL, Intravenous, EVERY 8 HOURS, First dose on Sun10/05/20 at 1731, Flush line with 3-5 mL 0026 (Not Given - Provider: Kathryn Amado RN - Reason: Other)0850 (Canceled Entry - Provider: Kristi Kwong RN - Comment: duplicate)1832 (Not Given - Provider: Kristi Kwong RN - Reason: Other) 0102 (Not Given - Provider: Kathryn Amado RN - Reason: Other)0837 (Canceled Entry - Provider: Nery Valiente RN)1749 (Canceled Entry - Provider: Nery Valiente RN)2339 (Not Given - Provider: Kathryn Amado RN - Reason: Other) 0934 (Given - Provider: Guerda Jo RN)1731 (Due) sodium chloride flush 0.9 % injection 5-40 mL 5-40 mL, Intravenous, EVERY 12 HOURS SCHEDULED (2 times per day), First dose on Sun10/06/20 at 0945, For Line Patency: Peripheral IV = 5 mL; Midline or Central Line = 10 mL/lumen. If following IV push medication, administer flush at same rate as the IV push. Flush volume is determined by type of infusion therapy being given. For non-viscous solutions use: Peripheral IV = 5 mL Midline or Central Line = 10 mL/lumen For viscous solutions (i.e. blood components, parenteral nutrition, contrast media, or after obtaining blood sample) use: Peripheral IV = 10 mL Midline or Central Line = 20 mL/lumen 0850 (Given - Provider: Kristi Kwong RN)2018 (Given - Provider: Kathryn Amado RN) 0836 (Given - Provider: Nery Valiente RN)2109 (Not Given - Provider: Kathryn Amado RN - Reason: Other) 0934 (Not Given - Provider: Guerda Jo RN - Reason: Other - Comment: duplicate order)2099 (Due) tamsulosin (FLOMAX) capsule 0.4 mg 0.4 mg, Oral, DAILY, First dose on Sun10/06/20 at 0900, Do not crush or break. 0844 (Given - Provider: Kristi Kwong RN) 0836 (Given - Provider: Nery Valiente RN) 0928 (Given - Provider: Guerda Jo RN) vitamin B-12 (CYANOCOBALAMIN) tablet 1,000 mcg 1,000 mcg, Oral, DAILY, First dose on Debbi 10/07/20 at 0900 0844 (Given - Provider: Kristi Kwong RN) 0835 (Given - Provider: Nery Valiente RN) 0928 (Given - Provider: Guerda Jo RN) PRN Medication Order 10/07/2020 10/08/2020 10/09/2020 0.9 % sodium chloride infusion 25 mL, Intravenous, at 100 mL/hr, PRN, If patient receiving piggyback infusions without ordered maintenance IV fluids or with frequent/long duration piggyback infusions, Starting on Sun10/06/20 at 0919, Administer at the same rate as the piggyback being infused. acetaminophen (TYLENOL) suppository 650 mg(Linked Group 2) 650 mg, Rectal, EVERY 6 HOURS PRN, Pain Mild (1-3), Fever, For temp greater than 100.4 F (38 C), Starting on Sun10/06/20 at 0919, Administer if oral route cannot be used. 2345 (See Alternative - Provider: Kathryn Amado RN) acetaminophen (TYLENOL) tablet 1,000 mg 1,000 mg, Oral, EVERY 8 HOURS PRN, Pain Mild (1-3), Pain Moderate (4-6), Starting on Sun10/05/20 at 2327, Maximum dose of acetaminophen is 4000 mg from all sources in 24 hours. 1245 (Given - Provider: Kristi Kwong RN) 0835 (Given - Provider: Nery Valiente RN)1540 (Given - Provider: Nery Valiente RN) 0557 (Given - Provider: Kathryn Amado RN) acetaminophen (TYLENOL) tablet 650 mg(Linked Group 2) 650 mg, Oral, EVERY 6 HOURS PRN, Pain Mild (1-3), Fever, For temp greater than 100.4 F (38 C), Starting on Sun10/06/20 at 0919, Maximum dose of acetaminophen is 4000 mg from all sources in 24 hours. 2345 (Given - Provider: Kathryn Amado RN) albuterol (PROVENTIL) nebulizer solution 2.5 mg 2.5 mg, Nebulization, EVERY 4 HOURS PRN, Wheezing, Starting on Sun10/05/20 at 2327 albuterol sulfate HFA 108 (90 Base) MCG/ACT inhaler 2 puff 2 puff, Inhalation, EVERY 6 HOURS PRN, Wheezing, Starting on Sun10/05/20 at 2327 iopamidol (ISOVUE-370) 76 % injection 75 mL (COMPLETED) 75 mL, Other, IMG ONCE PRN, Other, Starting on Sun10/07/20 at 1407, For 1 dose 1011 (Given - Provider: Lolis Saldivar) ondansetron (ZOFRAN) injection 4 mg(Linked Group 3) 4 mg, Intravenous, EVERY 6 HOURS PRN, Nausea, Vomiting, Starting on Sun10/06/20 at 0919, Administer if oral route cannot be used. ondansetron (ZOFRAN-ODT) disintegrating tablet 4 mg(Linked Group 3) 4 mg, Oral, EVERY 8 HOURS PRN, Nausea, Vomiting, Starting on Sun10/06/20 at 0919 perflutren lipid microspheres (DEFINITY) injection 1.65 mg 1.65 mg (1.5 mL), Intravenous, IMG ONCE PRN, Other, Suboptimal Echo Image, Starting on Sun10/06/20 at 0551, For 72 hours, Administer up to 1.65 mg via slow IVP for suboptimal echocardiogram enhancement. May administer as concentrated dose or diluted in 8.5 mL of 0.9% sodium chloride for a total volume of 10 mL. May administer as divided doses to reach optimal image enhancement. 1107 (Given - Provider: Kristi Kwong RN) polyethylene glycol (GLYCOLAX) packet 17 g 17 g, Oral, DAILY PRN, Constipation, Starting on Sun10/06/20 at 0919, First line therapy for constipation sodium chloride flush 0.9 % injection 5-40 mL 5-40 mL, Intravenous, PRN, Line Care, Per Courtesy Bus Driver Request, Starting on Sun10/06/20 at 0551, For 72 hours, May use order for Line Care after every IV line use and Agitated Saline Bubble Study. Administration for Bubble Study per street worker request for only. Remove 1 mL 0.9% sodium chloride from 10 mL syringe for creating agitated saline. If following IV push medication, administer flush at same rate as the IV push. Flush volume is determined by type of infusion therapy being given. , For non-viscous solutions use: Peripheral IV = 5 mL Midline or Central Line = 10 mL/lumen For viscous solutions (i.e. blood components, parenteral nutrition, contrast media, or after obtaining blood sample) use: Peripheral IV = 10 mL Midline or Central Line = 20 mL/lumen sodium chloride flush 0.9 % injection 5-40 mL 5-40 mL, Intravenous, PRN, Line Care, After every IV line use, Starting on Sun10/06/20 at 0919, For Line Patency: Peripheral IV = 5 mL; Midline or Central Line = 10 mL/lumen. If following IV push medication, administer flush at same rate as the IV push. Flush volume is determined by type of infusion therapy being given. For non-viscous solutions use: Peripheral IV = 5 mL Midline or Central Line = 10 mL/lumen For viscous solutions (i.e. blood components, parenteral nutrition, contrast media, or after obtaining blood sample) use: Peripheral IV = 10 mL Midline or Central Line = 20 mL/lumen Linked Groups Order Group 1: Saline lock IV (COMPLETED) Routine, CONTINUOUS, Starting on Sun10/05/20 at 1730, Until Specified And sodium chloride flush 0.9 % injection 3 mLJump to med 3 mL, Intravenous, EVERY 8 HOURS, First dose on Sun10/05/20 at 1731
Flush line with 3-5 mL
Group 2: acetaminophen (TYLENOL) tablet 650 mgJump to med 650 mg, Oral, EVERY 6 HOURS PRN, Pain Mild (1-3), Fever, For temp greater than 100.4 F (38 C), Starting on Sun10/06/20 at 0919
Maximum dose of acetaminophen is 4000 mg from all sources in 24 hours.
Or acetaminophen (TYLENOL) suppository 650 mgJump to med 650 mg, Rectal, EVERY 6 HOURS PRN, Pain Mild (1-3), Fever, For temp greater than 100.4 F (38 C), Starting on Sun10/06/20 at 0919
Administer if oral route cannot be used.
Group 3: ondansetron (ZOFRAN-ODT) disintegrating tablet 4 mgJump to med 4 mg, Oral, EVERY 8 HOURS PRN, Nausea, Vomiting, Starting on Sun10/06/20 at 0919 Or ondansetron (ZOFRAN) injection 4 mgJump to med 4 mg, Intravenous, EVERY 6 HOURS PRN, Nausea, Vomiting, Starting on Sun10/06/20 at 0919
Administer if oral route cannot be used.
Scheduled Medication Order 06/03/2021 06/04/2021 06/05/2021 HYDROcodone-acetaminophen (NORCO) 5-325 MG per tablet 1 tablet 1 tablet, Oral, ONCE, On 06/05/21 at 2132, For 1 dose 2200 (Not Given - Pr ovider: Candi Barragan RN - Reason: Patient/family refused) morphine sulfate (PF) injection 4 mg (COMPLETED) 4 mg, IntraVENous, ONCE, On 06/05/21 at 1807, For 1 dose, If oral and IV narcotics ordered, use oral first and only use IV if oral is ineffective or cannot take oral. Do Not give oral and IV within 1 hour of each other unless specifically ordered. 1854 (Given - Provid er: Radha Tejeda RN) ondansetron (ZOFRAN) injection 4 mg (COMPLETED) 4 mg, IntraVENous, ONCE, On 06/05/21 at 1807, For 1 dose 1850 (Given - Provid er: Radha Tejeda, BELINDA) sodium chloride flush 0.9 % injection 3 mL(Linked Group 1) 3 mL, IntraVENous, EVERY 8 HOURS, First dose on 06/05/21 at 1807, Flush line with 3-5 mL 1905 (Not Given - Pr ovider: Radha Tejeda RN - Reason: IV Fluid Infusing) Continuous Medication Order 06/03/2021 06/04/2021 06/05/2021 0.9 % sodium chloride infusion IntraVENous, at 125 mL/hr, CONTINUOUS, Starting on 06/05/21 at 1807 1850 (New Bag - Prov ider: Radha Tejeda, BELINDA)2200 (Stopped - Provider: Candi Barragan RN) Linked Groups Order Group 1: Saline lock IV (COMPLETED) Routine, CONTINUOUS, Starting on 06/05/21 at 1815, Until Specified And sodium chloride flush 0.9 % injection 3 mLJump to med 3 mL, IntraVENous, EVERY 8 HOURS, First dose on 06/05/21 at 1807
Flush line with 3-5 mL
Scheduled Medication Order 12/11/2022 12/12/2022 12/13/2022 acetaminophen (Tylenol) tablet 650 mg (COMPLETED) 650 mg, Oral, Once, On Sun12/13/22 at 0205, For 1 dose, Maximum dose of acetaminophen is 4000 mg from all sources in 24 hours. 0254 (Given - Provid er: Cady Marshall RN) Scheduled Medication Order 01/02/2023 01/03/2023 01/04/2023 alfuzosin ER (Uroxatral) 24 hr tablet 10 mg 10 mg, Oral, Daily, First dose on 12/31/22 at 0900, Patient own med unless [place] allergy rxn clarified to substitute with Flomax Do not crush, chew, or split. 0900 (Not Given - Provider: Cleopatra Garber - Reason: Medication not available) 0840 (Held by provider - Provider: Jonathan Nickerson MD - Reason: Other)0900 (Dose Auto Held - Provider: Jonathan Nickerson MD) 0900 (Not Given - Provider: Amanda Steel RN - Reason: Other - Comment: Held by provider)1528 (Unheld by provider - Provider: Automatic Discharge Provider) atorvastatin (Lipitor) tablet 10 mg 10 mg, Oral, Daily, First dose on 12/31/22 at 0900 1007 (Given - Provider: Cleopatra Garber) 0851 (Given - Provider: Janee Roland RN) 0945 (Given - Provider: Amanda Steel RN) cyanocobalamin (Vitamin B-12) tablet 1,000 mcg 1,000 mcg, Oral, Daily, First dose on 12/31/22 at 0900 1006 (Given - Provider: Cleopatra Garber) 0851 (Given - Provider: Janee Roland RN) 0945 (Given - Provider: Amanda Steel RN) enoxaparin (Lovenox) syringe 40 mg 40 mg, SubCUTAneous, Every 24 hours scheduled (Daily), First dose on 12/31/22 at 0900, Indication of Use: Prophylaxis-DVT/PE, Indications: Prophylaxis of Venous Thromboembolism 1007 (Given - Provider: Cleopatra Garber) 0852 (Given - Provider: Janee Roland RN) 0945 (Given - Provider: Amanda Steel RN) finasteride (Proscar) tablet 5 mg 5 mg, Oral, Daily, First dose on 12/31/22 at 0900, Women should not handle crushed or broken finasteride tablets when they are or may potentially be , due to potential risk to the fetus. Do not crush, chew, or split. 1006 (Given - Provider: Cleopatra Garber) 0851 (Given - Provider: Janee Roland RN) 0945 (Given - Provider: Amanda Steel RN) fluticasone (Flonase) nasal spray 2 spray 2 spray, Each Nostril, Daily, First dose on Sun01/02/23 at 1145, Shake gently. Before first use, prime pump (press 6 times until fine spray appears). After use, clean tip and replace cap. 1145 (Not Given - Provider: Carmenza Villalpando RN - Reason: Medication not available) 1123 (Given - Provider: Candi Fernandez) 0947 (Given - Provider: Amanda Steel RN) fluticasone (Flovent) 110 MCG/ACT inhaler 2 puff 2 puff, Inhalation, 2 times daily, First dose on 12/31/22 at 0205, Rinse mouth with water after use to reduce aftertaste and incidence of candidiasis. Do not swallow. 0900 (Canceled Entry - Provider: Automatic Discharge Provider - Comment: Automatically canceled at discontinue of medication order)1933 (Given - Provider: Jessie Otto, BELINDA) 0855 (Given - Provider: Janee Roland, BELINDA)2100 (Not Given - Provider: Petty Bee LPN - Reason: Medication not available) 0947 (Given - Provider: Amanda Steel, BELINDA) hydroCHLOROthiazide (HYDRODiuril) tablet 25 mg 25 mg, Oral, Every morning, First dose on 12/31/22 at 0900 1006 (Given - Provider: Cleopatra Garber) 0851 (Given - Provider: Janee Roland, BELINDA) 0945 (Given - Provider: Amanda Steel RN) Influenza Vac A&B SA Adj quadrivalent (Fluad) vaccine 0.5 mL 0.5 mL, IntraMUSCular, Once, On Debbi 01/04/23 at 0930, For 1 dose 0930 (Canceled Entry - Provider: Automatic Discharge Provider - Comment: Automatically canceled at discontinue of medication order) ipratropium-albuterol (Duo-Neb) 0.5-2.5 mg/3 mL nebulizer solution 3 mL 3 mL (1 ampule), Nebulization, 3 times daily, First dose (after last modification) on 12/31/22 at 1900 0800 (Not Given - Provider: Cady Saldivar RCP - Reason: Patient not available - Comment: with )1138 (Given - Provider: Cady Saldivar RCP)2143 (Given - Provider: Monique Dickerson RCP) 0836 (Given - Provider: Raffaele Zheng RCP)1347 (Given - Provider: Raffaele Zheng RCP)2215 (Given - Provider: Diane Garcia RCP) 0918 (Given - Provider: Raffaele Zheng RCP)1400 (Canceled Entry - Provider: Automatic Discharge Provider - Comment: Automatically canceled at discontinue of medication order) levothyroxine (Synthroid, Levoxyl) tablet 50 mcg 50 mcg, Oral, Daily, First dose on 12/31/22 at 0600, Tube feeding (TF) interaction, obtain physician order to manage, recommend holding TF for 30 minutes before and after dose. 0505 (Given - Provider: Jessie Otto RN) 0549 (Given - Provider: Jessie Otto RN) 0600 (Given - Provider: Petty Bee LPN) methylPREDNISolone sod suc (PF) (SOLU-Medrol) 40 MG injection 20 mg (CANCELED) 20 mg, IntraVENous, Every 8 hours, First dose on 12/31/22 at 1530 0505 (Given - Provider: Jessie Otto RN) Mucinex DM 30-600 MG tablet 1 tablet 1 tablet, Oral, Every 12 hours, First dose on 12/31/22 at 0900, Do not crush, chew, or split. 1007 (Given - Provider: Cleopatra Garber)1933 (Given - Provider: Jessie Otto RN) 0851 (Given - Provider: Janee Roland RN)211 (Given - Provider: Petty Bee LPN) 0945 (Given - Provider: Amanda Steel RN) pantoprazole (ProtoNix) EC tablet 40 mg 40 mg, Oral, Daily before breakfast, First dose on 12/31/22 at 0700, 30 minutes prior to breakfast Do not crush, chew, or split. 0505 (Given - Provider: Jessie Otto RN) 0549 (Given - Provider: Jessie Otto RN) 0600 (Given - Provider: Petty Bee LPN) pneumococcal polysaccharide (Pneumovax 23) 25 MCG/0.5ML vaccine 0.5 mL 0.5 mL, IntraMUSCular, Prior to discharge, Starting on Debbi 01/04/23 at 0915, For 1 dose polyethylene glycol (PEG) 3350 (Miralax) packet 17 g 17 g, Oral, Daily, First dose on Sun01/03/23 at 0900 0852 (Given - Provider: Janee Roland RN) 0945 (Given - Provider: Amanda Steel, BELINDA) predniSONE (Deltasone) tablet 40 mg 40 mg, Oral, Daily, First dose on Sun01/03/23 at 0900, For 5 doses 0851 (Given - Provider: Janee Roland RN) 0945 (Given - Provider: Amanda Steel RN) senna-docusate sodium (Senokot-S) 8.6-50 MG tablet 2 tablet 2 tablet, Oral, 2 times daily, First dose on Sun01/03/23 at 0900 0851 (Given - Provider: Janee Roland RN)2113 (Given - Provider: Petty Bee LPN) 0945 (Given - Provider: Amanda Steel RN) sodium chloride 0.9% (NS) flush 10 mL 10 mL, IntraVENous, Every 12 hours scheduled (2 times per day), First dose on Sun12/31/22 at 0900 1007 (Given - Provider: Cleopatra Garber)1933 (Given - Provider: Jessie Otto RN) 0854 (Given - Provider: Janee Roland RN)2120 (Given - Provider: Petty Bee LPN) 0949 (Given - Provider: Amanda Steel RN) tamsulosin (Flomax) 24 hr capsule 0.4 mg 0.4 mg, Oral, Daily, First dose on Sun01/03/23 at 0900, Do not crush, chew, or split. 0902 (Given - Provider: Janee Roland RN) 0945 (Given - Provider: Amanda Steel RN) PRN Medication Order 01/02/2023 01/03/2023 01/04/2023 acetaminophen (Tylenol) tablet 650 mg 650 mg, Oral, Every 6 hours PRN, mild pain (1-3), Starting on Sun01/03/23 at 0843, Maximum dose of acetaminophen is 4000 mg from all sources in 24 hours. 0902 (Given - Provider: Janee Roland RN) HYDROcodone-acetaminophen (Floyd) 5-325 MG per tablet 1 tablet 1 tablet, Oral, Every 6 hours PRN, severe pain (7-10), Starting on Sun12/31/22 at 1659, Maximum dose of acetaminophen is 4000 mg from all sources in 24 hours. 0058 (Given - Provider: Sean Jones RN) 1307 (Given - Provider: Amanda Steel RN) loperamide (Imodium) capsule 2 mg 2 mg, Oral, 4 times daily PRN, diarrhea, Starting on 12/31/23 at 1545, After each loose stool ondansetron (Zofran) injection 4 mg(Linked Group 1) 4 mg, IntraVENous, Every 6 hours PRN, nausea, vomiting, Starting on 12/31/22 at 0204, 1st Line. Give IV if patient is unable to take orally. If inadequate response within 60 minutes, proceed to next-line agent or contact provider if no further options ordered. ondansetron ODT (Zofran-ODT) disintegrating tablet 4 mg(Linked Group 1) 4 mg, Oral, Every 8 hours PRN, nausea, vomiting, Starting on 12/31/22 at 0204, 1st Line. If inadequate response within 60 minutes, proceed to next-line agent or contact provider if no further options ordered. Patient should allow tablet to dissolve on tongue. Do not remove from blister pack until just before administering. polyethylene glycol (PEG) 3350 (Miralax) packet 17 g 17 g, Oral, Daily PRN, constipation, Starting on 12/31/22 at 0204, 1st line for treatment of constipation - give scheduled if no bowel movement in past 24 hours. 2113 (Given - Provider: Petty Bee LPN) sodium chloride 0.9 % infusion 5-250 mL/hr, IntraVENous, PRN, if patient receiving piggyback infusions and maintenance fluids are not ordered OR KVO fluids to protect IV site / prevent frequent line interruptions/ long duration, Starting on 12/31/22 at 0204, For piggyback infusion, administer at same rate as piggyback for a total of 25 mL. Enter 25 mL into dose field and piggyback rate into rate field of order. If piggyback is infusing at a rate less than 100 mL/hr, enter 25 mL into dose field and 100 mL/hr into rate field of order. For KVO fluids, enter rate of 20 mL/hr or less into rate field of order. sodium chloride 0.9% (NS) flush 10 mL 10 mL, IntraVENous, PRN, line care, Starting on 12/31/22 at 0204, After every IV line use Linked Groups Order Group 1: ondansetron ODT (Zofran-ODT) disintegrating tablet 4 mgJump to med 4 mg, Oral, Every 8 hours PRN, nausea, vomiting, Starting on Sun /17/23 at 0204
1st Line. If inadequate response within 60 minutes, proceed to next-line agent or contact provider if no further options ordered. Patient should allow tablet to dissolve on tongue. Do not remove from blister pack until just before administering.
Or ondansetron (Zofran) injection 4 mgJump to med 4 mg, IntraVENous, Every 6 hours PRN, nausea, vomiting, Starting on Sun12/31/22 at 0204
1st Line. Give IV if patient is unable to take orally. If inadequate response within 60 minutes, proceed to next-line agent or contact provider if no further options ordered.
Scheduled Medication Order 02/17/2023 02/18/2023 02/19/2023 acetaminophen (Tylenol) tablet 1,000 mg(Linked Group 1) 1,000 mg, Oral, 3 times daily, First dose (after last modification) on Sun02/13/23 at 2100, Maximum dose of acetaminophen is 4000 mg from all sources in 24 hours. 0825 (Given - Provider: Yvonne Hebert)1626 (Given - Provider: Jigna Michel RN)2007 (Given - Provider: Minda Rodney RN) 0917 (Given - Provider: Petty Hernandez LPN)1333 (Given - Provider: Petty Hernandez LPN)2024 (Given - Provider: Minda Rodney RN) 0817 (Given - Provider: Augusta Boudreaux, BELINDA)1400 (Canceled Entry - Provider: Automatic Discharge Provider - Comment: Automatically canceled at discontinue of medication order) atorvastatin (Lipitor) tablet 10 mg 10 mg, Oral, Daily, First dose on Sun02/13/23 at 1630, Substituted for simvastatin (Zocor). 0826 (Given - Provider: Yvonne Hebert) 0917 (Given - Provider: Petty Hernandez LPN) 0816 (Given - Provider: Augusta Boudreaux, BELINDA) cefTRIAXone (Rocephin) 1,000 mg in sodium chloride 0.9 % 50 mL IVPB Mini-Bag Plus (COMPLETED) 1,000 mg, IntraVENous, at 100 mL/hr, Administer over 30 Minutes, Every 24 hours, First dose on Sun02/14/23 at 1630, For 5 doses, Mini-Bag Plus bag, Suspected Indication (Select all that apply): Urinary Tract Infection 1626 (New Bag - Provider: Jigna Michel RN)1656 (Stopped - Provider: Minda Rodney RN) 1606 (New Bag - Provider: Petty Hernandez LPN)1636 (Stopped - Provider: Petty Hernandez LPN) enoxaparin (Lovenox) syringe 40 mg 40 mg, SubCUTAneous, Every 24 hours scheduled (Daily), First dose on Sun02/13/23 at 1700, Indication of Use: Prophylaxis-DVT/PE, Indications: Prophylaxis of Venous Thromboembolism 1626 (Given - Provider: Jigna Michel RN) 1606 (Given - Provider: Petty Hernandez LPN) ergocalciferol (Vitamin D2) capsule 1.25 mg 1.25 mg, Oral, Weekly, First dose on Sun02/17/23 at 0900, For 8 doses 0900 (Not Given - Provider: Jigna Michel RN - Reason: Medication not available) escitalopram (Lexapro) tablet 10 mg 10 mg, Oral, Daily, First dose on Sun02/13/23 at 1630 0828 (Given - Provider: Yvonne Hebert) 0917 (Given - Provider: Petty Hernandez LPN) 0816 (Given - Provider: Augusta Boudreaux, BELINDA) finasteride (Proscar) tablet 5 mg 5 mg, Oral, Daily, First dose on Sun02/13/23 at 1630, Women should not handle crushed or broken finasteride tablets when they are or may potentially be , due to potential risk to the fetus. Do not crush, chew, or split. 0830 (Given - Provider: Yvonne Hebert) 0917 (Given - Provider: Petty Hernandez LPN) 0817 (Given - Provider: Augusta Boudreaux, BELINDA) guaiFENesin (Mucinex) 12 hr tablet 600 mg 600 mg, Oral, 2 times daily, First dose on Sun02/14/23 at 0000, Administer with plenty of fluids to ensure proper action. Do not crush, chew, or split. 0830 (Given - Provider: Yvonne Hebert)2008 (Given - Provider: Minda Rodney RN) 916 (Given - Provider: Petty Hernandez LPN)2024 (Given - Provider: Minda Rodney RN) 815 (Given - Provider: Augusta Boudreaux RN) hydroCHLOROthiazide (HYDRODiuril) tablet 25 mg 25 mg, Oral, Every morning, First dose on Sun02/14/23 at 0900 0831 (Given - Provider: Yvonne Hebert) 0918 (Given - Provider: Petty Hernandez LPN) 08 (Given - Provider: Augusta Boudreaux RN) levothyroxine (Synthroid, Levoxyl) tablet 50 mcg 50 mcg, Oral, Daily, First dose on Sun02/13/23 at 1630, Tube feeding (TF) interaction, obtain physician order to manage, recommend holding TF for 30 minutes before and after dose. 0831 (Given - Provider: Yvonne Hebert) 916 (Given - Provider: Petty Hernandez LPN) 815 (Given - Provider: Augusta Boudreaux RN) melatonin tablet 5 mg 5 mg, Oral, Nightly, First dose on Sun02/14/23 at 2100 2008 (Given - Provider: Minda Rodney RN) 2024 (Given - Provider: Minda Rodney RN) pantoprazole (ProtoNix) EC tablet 40 mg 40 mg, Oral, Daily before breakfast, First dose on Sun02/14/23 at 0700, Substituted for omeprazole (Prilosec). Do not crush, chew, or split. 0530 (Given - Provider: Taisha Merino RN) 916 (Given - Provider: Petty Hernandez LPN) 08 (Given - Provider: Augusta Boudreaux RN) sodium chloride 0.9% (NS) flush 10 mL 10 mL, IntraVENous, Every 12 hours scheduled (2 times per day), First dose on Sun02/13/23 at 2100 0841 (Given - Provider: Yvonne Hebert)2099 (Given - Provider: Minda Rodney RN) 916 (Given - Provider: Petty Hernandez LPN)2099 (Given - Provider: Minda Rodney RN) 816 (Given - Provider: Jeannee L Boudreaux, RN) tamsulosin (Flomax) 24 hr capsule 0.4 mg 0.4 mg, Oral, Daily, First dose on Sun02/13/23 at 1630, Do not crush, chew, or split. 0832 (Given - Provider: Yvonne Hebert) 0917 (Given - Provider: Petty Hernandez LPN) 0816 (Given - Provider: Augusta Boudreaux RN) PRN Medication Order 02/17/2023 02/18/2023 02/19/2023 albuterol 108 (90 Base) MCG/ACT inhaler 2 puff 2 puff, Inhalation, Every 6 hours PRN, wheezing, shortness of breath, Starting on Sun02/13/23 at 1615 carboxymethylcellulose PF (Refresh Plus) 0.5 % ophthalmic solution 1 drop 1 drop, Both Eyes, 3 times daily PRN, dry eyes, Starting on Sun02/14/23 at 0608 Diclofenac Sodium (Voltaren) 1 % gel 2 g 2 g, Topical, PRN, Pain, Starting on Sun02/18/23 at 2230, For 3 doses, Apply to. ondansetron (Zofran) injection 4 mg(Linked Group 2) 4 mg, IntraVENous, Every 6 hours PRN, nausea, vomiting, Starting on Sun02/13/23 at 1616, 1st Line. Give IV if patient is unable to take orally. If inadequate response within 60 minutes, proceed to next-line agent or contact provider if no further options ordered. ondansetron ODT (Zofran-ODT) disintegrating tablet 4 mg(Linked Group 2) 4 mg, Oral, Every 8 hours PRN, nausea, vomiting, Starting on Sun02/13/23 at 1616, 1st Line. If inadequate response within 60 minutes, proceed to next-line agent or contact provider if no further options ordered. Patient should allow tablet to dissolve on tongue. Do not remove from blister pack until just before administering. polyethylene glycol (PEG) 3350 (Miralax) packet 17 g 17 g, Oral, Daily PRN, constipation, Starting on Sun02/13/23 at 1616, 1st line for treatment of constipation - give scheduled if no bowel movement in past 24 hours. sodium chloride 0.9 % infusion 5-250 mL/hr, IntraVENous, PRN, if patient receiving piggyback infusions and maintenance fluids are not ordered OR KVO fluids to protect IV site / prevent frequent line interruptions/ long duration, Starting on Sun02/13/23 at 1616, For piggyback infusion, administer at same rate as piggyback for a total of 25 mL. Enter 25 mL into dose field and piggyback rate into rate field of order. If piggyback is infusing at a rate less than 100 mL/hr, enter 25 mL into dose field and 100 mL/hr into rate field of order. For KVO fluids, enter rate of 20 mL/hr or less into rate field of order. sodium chloride 0.9% (NS) flush 10 mL 10 mL, IntraVENous, PRN, line care, Starting on Sun02/13/23 at 1616, After every IV line use traMADol (Ultram) tablet 50 mg 50 mg, Oral, Every 8 hours PRN, moderate pain (4-6), Starting on Sun02/13/23 at 1820, Max of 300 mg daily for patients > 75 years of age. 2102 (Given - Provider: Minda Rodney RN) 2154 (Given - Provider: Minda Rodney RN) Linked Groups Order Group 1: acetaminophen (Tylenol) tablet 1,000 mgJump to med 1,000 mg, Oral, 3 times daily, First dose (after last modification) on Sun02/13/23 at 2100, Maximum dose of acetaminophen is 4000 mg from all sources in 24 hours. Group 2: ondansetron ODT (Zofran-ODT) disintegrating tablet 4 mgJump to med 4 mg, Oral, Every 8 hours PRN, nausea, vomiting, Starting on Sun02/13/23 at 1616, 1st Line. If inadequate response within 60 minutes, proceed to next-line agent or contact provider if no further options ordered. Patient should allow tablet to dissolve on tongue. Do not remove from blister pack until just before administering. Or ondansetron (Zofran) injection 4 mgJump to med 4 mg, IntraVENous, Every 6 hours PRN, nausea, vomiting, Starting on Sun02/13/23 at 1616, 1st Line. Give IV if patient is unable to take orally. If inadequate response within 60 minutes, proceed to next-line agent or contact provider if no further options ordered. Scheduled Medication Order 04/09/2024 04/10/2024 04/11/2024 atorvastatin (Lipitor) tablet 10 mg 10 mg, Oral, Nightly, First dose (after last modification) on Sun04/07/24 at 2100 2121 (Given - Provider: Rachel Noble RN) 2019 (Given - Provider: Mark Wahl, BELINDA) cefTRIAXone (Rocephin) 1,000 mg in sodium chloride 0.9 % 50 mL IVPB Mini-Bag Plus 1,000 mg, IntraVENous, at 100 mL/hr, Administer over 30 Minutes, Every 24 hours, First dose (after last reorder) on Sun04/08/24 at 0630, Mini-Bag Plus bag, Suspected Indication (Select all that apply): Urinary Tract Infection 0535 (New Bag - Provider: Arianna Holley RN)0605 (Stopped - Provider: Arianna Holley RN) 0557 (New Bag - Provider: Jessie Otto RN)0627 (Stopped - Provider: Janee Roland RN) 0546 (New Bag - Provider: Mark Wahl RN)0616 (Stopped - Provider: Mark Wahl RN) cetirizine (ZyrTEC) tablet 5 mg 5 mg, Oral, Daily, First dose on Sun04/07/24 at 1430, Substituted for Loratadine (CLARITIN). 0827 (Given - Provider: Leonardo Pena RN) 0931 (Given - Provider: Janee Roland RN) 0859 (Given - Provider: Janee Roland RN) cyanocobalamin (Vitamin B-12) tablet 1,000 mcg 1,000 mcg, Oral, Daily, First dose on Sun04/07/24 at 1200 0828 (Given - Provider: Leonardo Pena RN) 0936 (Given - Provider: Janee Roland RN) 0902 (Given - Provider: Janee Roland RN) enoxaparin (Lovenox) syringe 40 mg 40 mg, SubCUTAneous, Every 24 hours scheduled (Daily), First dose on Sun04/07/24 at 1215, Indication of Use: Prophylaxis-DVT/PE, Indications: Prophylaxis of Venous Thromboembolism 0827 (Given - Provider: Leonardo Pena RN) 0930 (Given - Provider: Janee Roland RN) 0900 (Given - Provider: Janee Roland RN) finasteride (Proscar) tablet 5 mg 5 mg, Oral, Daily, First dose on Sun04/07/24 at 1200, Women should not handle crushed or broken finasteride tablets when they are or may potentially be , due to potential risk to the fetus. Do not crush, chew, or split. 0827 (Given - Provider: Leonardo Pena RN) 0931 (Given - Provider: Janee Roland RN) 0859 (Given - Provider: Janee Roland RN) fluticasone (Flovent) 110 MCG/ACT inhaler 2 puff 2 puff, Inhalation, 2 times daily, First dose on Sun04/07/24 at 2000, Rinse mouth with water after use to reduce aftertaste and incidence of candidiasis. Do not swallow. 0828 (Given - Provider: Leonardo Pena RN)212 (Given - Provider: Rachel Noble RN) 0948 (Given - Provider: Janee Roland RN)2019 (Given - Provider: Mark Wahl RN) 0911 (Given - Provider: Janee Roland RN) hydroCHLOROthiazide (HYDRODiuril) tablet 25 mg 25 mg, Oral, Every morning, First dose on Sun04/07/24 at 1200, On hold since Sun04/07/2024 at 1158 until manually unheld 0900 (Dose Auto Held) 0900 (Dose Auto Held) 0900 (Dose Auto Held)1535 (Unheld by provider - Provider: Automatic Discharge Provider) influenza vaccine A&B surf ant adjuvanted (Fluad) HIGH-DOSE injection 0.5 mL 0.5 mL, IntraMUSCular, Prior to discharge, Starting on Sun04/08/24 at 0900, For 1 dose ipratropium (Atrovent) 0.06 % nasal spray 2 spray 2 spray, Each Nostril, 4 times daily, First dose on Sun04/07/24 at 1300 0828 (Given - Provider: Leonardo Pena RN)1205 (Given - Provider: Leonardo Pena RN)1816 (Given - Provider: Leonardo Pena RN)212 (Given - Provider: Rachel Noble RN) 0948 (Given - Provider: Janee Roland RN)1300 (Not Given - Provider: Janee Roland RN - Reason: Other)1747 (Given - Provider: Janee Roland RN)2020 (Given - Provider: Mark Wahl RN) 09 (Given - Provider: Janee Roland RN)1300 (Canceled Entry - Provider: Automatic Discharge Provider - Comment: Automatically canceled at discontinue of medication order) levothyroxine (Synthroid, Levoxyl) tablet 50 mcg 50 mcg, Oral, Daily, First dose on Sun04/07/24 at 1430, Tube feeding (TF) interaction, obtain physician order to manage, recommend holding TF for 30 minutes before and after dose. 0827 (Given - Provider: Leonardo Pena RN) 0931 (Given - Provider: Janee Roland RN) 0859 (Given - Provider: Janee Roland RN) Lidocaine 4 % patch 1 patch 1 patch, Topical, Administer over 12 Hours, Daily, First dose on Sun04/07/24 at 1430, Apply patch to back. Patch may remain in place for up to 12 hours in any 24 hour period. 0826 (Medication Applied - Provider: Leonardo Pena RN)2025 (Medication Removed - Provider: Rachel Noble RN) 0936 (Medication Applied - Provider: Janee Roland RN)213 (Medication Removed - Provider: Mark Wahl RN) 0900 (Medication Applied - Provider: Janee Roland RN)1335 (Due: Medication Removed - Provider: Automatic Discharge Provider - Comment: Time automatically adjusted from order being discontinued) melatonin tablet 3 mg 3 mg, Oral, Nightly, First dose on Sun04/07/24 at 2100 2121 (Given - Provider: Rachel Noble RN) 2019 (Given - Provider: Mark Wahl RN) pantoprazole (ProtoNix) EC tablet 40 mg 40 mg, Oral, Daily before breakfast, First dose on Sun04/08/24 at 0600, Substituted for omeprazole (Prilosec). Do not crush, chew, or split. 0535 (Given - Provider: Arianna Holley RN) 0557 (Given - Provider: Jessie Otto RN) 0546 (Given - Provider: Mark Wahl RN) phenazopyridine (Pyridium) tablet 100 mg 100 mg, Oral, 3 times daily with meals, First dose on Sun04/07/24 at 1700 0831 (Given - Provider: Leonardo Pena RN)1205 (Given - Provider: Leonardo Pena RN)1602 (Given - Provider: Leonardo Pena RN) 0931 (Given - Provider: Janee Roland RN)1159 (Given - Provider: Janee Roland RN)1747 (Given - Provider: Janee Rloand RN) 0859 (Given - Provider: Janee Roland RN)1200 (Canceled Entry - Provider: Automatic Discharge Provider - Comment: Automatically canceled at discontinue of medication order) polyethylene glycol (PEG) 3350 (Miralax) packet 17 g 17 g, Oral, Daily, First dose (after last reorder) on Sun04/07/24 at 1215 0831 (Given - Provider: Leonardo Pena RN) 0931 (Given - Provider: Janee Roland RN) 0859 (Given - Provider: Janee Roland RN) potassium chloride IVPB 10 mEq (COMPLETED) 10 mEq, IntraVENous, at 100 mL/hr, Administer over 1 Hours, Every 1 hour, First dose on Sun04/09/24 at 1800, For 2 doses, Total dose is 20 mEq of potassium chloride 1816 (New Bag - Provider: Leonardo Pena RN)1859 (Stopped - Provider: Rachel Noble RN)1939 (New Bag - Provider: Rachel Noble RN)2039 (Stopped - Provider: Rachel Noble RN) potassium chloride IVPB 10 mEq (COMPLETED) 10 mEq, IntraVENous, at 100 mL/hr, Administer over 1 Hours, Every 1 hour, First dose on Sun04/11/24 at 0815, For 2 doses, Total dose: 20 mEq 0857 (New Bag - Provider: Janee Roland RN)0914 (Stopped - Provider: Janee Roland RN)1109 (New Bag - Provider: Janee Roland RN)1209 (Stopped - Provider: Janee Roland RN) psyllium (Metamucil) 51.7 % packet 3.4 g of fiber 3.4 g of fiber, Oral, Daily, First dose on Sun04/07/24 at 1430 0900 (Not Given - Provider: Leonardo Pena RN - Reason: Patient/family refused) 1200 (Given - Provider: Janee Roland RN) 1200 (Canceled Entry - Provider: Automatic Discharge Provider - Comment: Automatically canceled at discontinue of medication order) sertraline (Zoloft) tablet 25 mg 25 mg, Oral, Every morning, First dose on Sun04/08/24 at 0900 0827 (Given - Provider: Leonardo Pena RN) 0931 (Given - Provider: Janee Roland, BELINDA) 0859 (Given - Provider: Janee Roland RN) stomahesive in petrolatum (ET Mix) Topical, 3 times daily, First dose on Sun04/08/24 at 1400, Bilateral buttocks: MASD due to bodily fluids -Cleanse with soap and water, pat dry, apply ET mix and leave BUSINESS INTELLIGENCE ENGINEER TID and PRN 0828 (Given - Provider: Leonardo Pena RN)1356 (Given - Provider: Leonardo Pena RN)2122 (Given - Provider: Rachel Noble RN) 1140 (Given - Provider: Janee Roland RN)1741 (Given - Provider: Janee Roland RN)202 (Given - Provider: Mark Wahl RN) 0912 (Given - Provider: Janee Roland, BELINDA)1400 (Canceled Entry - Provider: Automatic Discharge Provider - Comment: Automatically canceled at discontinue of medication order) tamsulosin (Flomax) 24 hr capsule 0.4 mg 0.4 mg, Oral, Daily, First dose on Sun04/07/24 at 1200, Do not crush, chew, or split. 0827 (Given - Provider: Leonardo Pena RN) 0931 (Given - Provider: Janee Roland RN) 0859 (Given - Provider: Janee Roland RN) Continuous Medication Order 04/09/2024 04/10/2024 04/11/2024 sodium chloride 0.9 % infusion 100 mL/hr, IntraVENous, Continuous, Starting on Sun04/07/24 at 1215 0537 (New Bag - Provider: Arianna Holley, RN)2302 (Rate/Dose Verify - Provider: Rachel Noble, RN) 0559 (New Bag - Provider: Jessie Otto, BELINDA)1816 (New Bag - Provider: Janee Roland, BELINDA) 0405 (New Bag - Provider: Mark Wahl, RN) PRN Medication Order 04/09/2024 04/10/2024 04/11/2024 acetaminophen (Tylenol) suppository 650 mg(Linked Group 1) 650 mg, Rectal, Every 6 hours PRN, mild pain (1-3), fever, For temp greater than 100.4 F (38 C), Starting on Sun04/07/24 at 1159, Administer if oral route cannot be used. Maximum dose of acetaminophen is 4000 mg from all sources in 24 hours. 1602 (See Alternative - Provider: Leonardo Pena RN) acetaminophen (Tylenol) tablet 650 mg(Linked Group 1) 650 mg, Oral, Every 6 hours PRN, mild pain (1-3), fever, For temp greater than 100.4 F (38 C), Starting on Sun04/07/24 at 1159, Maximum dose of acetaminophen is 4000 mg from all sources in 24 hours. 1602 (Given - Provider: Leonardo Pena RN) albuterol 108 (90 Base) MCG/ACT inhaler 2 puff 2 puff, Inhalation, Every 6 hours PRN, shortness of breath, Starting on Sun04/07/24 at 1156 artificial tears (Stye) ophthalmic ointment Both Eyes, As needed, dry eyes, Starting on Sun04/07/24 at 1158 methocarbamol (Robaxin) tablet 500 mg 500 mg, Oral, Every 8 hours PRN, muscle spasms, Pain, Starting on Sun04/09/24 at 1732 2020 (Given - Provider: Mark Wahl, BELINDA) naloxone (Narcan) injection 0.4 mg 0.4 mg, IntraVENous, Every 5 min PRN, opioid reversal, respiratory depression, Starting on Sun04/07/24 at 1423, +++ For RR <10, pinpoint pupils, over sedation for opioid reversal - MUST notify mental health professional provider immediately after first dose, may give IM or SQ if no IV access +++ ondansetron (Zofran) injection 4 mg(Linked Group 2) 4 mg, IntraVENous, Every 6 hours PRN, nausea, vomiting, Starting on Sun04/07/24 at 1159, 1st Line. Give IV if patient is unable to take orally. If inadequate response within 60 minutes, proceed to next-line agent or contact provider if no further options ordered. ondansetron ODT (Zofran-ODT) disintegrating tablet 4 mg(Linked Group 2) 4 mg, Oral, Every 8 hours PRN, nausea, vomiting, Starting on Sun04/07/24 at 1159, 1st Line. If inadequate response within 60 minutes, proceed to next-line agent or contact provider if no further options ordered. Patient should allow tablet to dissolve on tongue. Do not remove from blister pack until just before administering. polyethylene glycol (PEG) 3350 (Miralax) packet 17 g 17 g, Oral, Daily PRN, constipation, Starting on Sun04/07/24 at 1159, 1st line for treatment of constipation - give scheduled if no bowel movement in past 24 hours. simethicone (Mylicon) chewable tablet 80 mg 80 mg, Oral, 4 times daily PRN, flatulence, Starting on Sun04/09/24 at 1733 stomahesive in petrolatum (ET Mix) Topical, PRN, buttocks, Starting on Sun04/08/24 at 1231, Bilateral buttocks: MASD due to bodily fluids -Cleanse with soap and water, pat dry, apply ET mix and leave MADDISON TID and PRN traMADol (Ultram) tablet 50 mg 50 mg, Oral, Every 8 hours PRN, severe pain (7-10), Starting on Sun04/07/24 at 1420, Max of 300 mg daily for patients > 75 years of age. 1356 (Given - Provider: Leonardo Pena RN) 1159 (Given - Provider: Janee Roland RN)2019 (Given - Provider: Mark Wahl RN) 0546 (Given - Provider: Mark Wahl RN) Linked Groups Order Group 1: acetaminophen (Tylenol) tablet 650 mgJump to med 650 mg, Oral, Every 6 hours PRN, mild pain (1-3), fever, For temp greater than 100.4 F (38 C), Starting on Sun04/07/24 at 1159, Maximum dose of acetaminophen is 4000 mg from all sources in 24 hours. Or acetaminophen (Tylenol) suppository 650 mgJump to med 650 mg, Rectal, Every 6 hours PRN, mild pain (1-3), fever, For temp greater than 100.4 F (38 C), Starting on Sun04/07/24 at 1159, Administer if oral route cannot be used. Maximum dose of acetaminophen is 4000 mg from all sources in 24 hours. Group 2: ondansetron ODT (Zofran-ODT) disintegrating tablet 4 mgJump to med 4 mg, Oral, Every 8 hours PRN, nausea, vomiting, Starting on Sun04/07/24 at 1159, 1st Line. If inadequate response within 60 minutes, proceed to next-line agent or contact provider if no further options ordered. Patient should allow tablet to dissolve on tongue. Do not remove from blister pack until just before administering. Or ondansetron (Zofran) injection 4 mgJump to med 4 mg, IntraVENous, Every 6 hours PRN, nausea, vomiting, Starting on Sun04/07/24 at 1159, 1st Line. Give IV if patient is unable to take orally. If inadequate response within 60 minutes, proceed to next-line agent or contact provider if no further options ordered. Care Teams (unrecognized sec tion and content) Dross Puller Relationship Specialty Start Date End Date Roopa Madera MD [address] [place] [address] [place] [address] PCP - General 09/15/14 Dross Puller Relationship Specialty Start Date End Date Roopa Madera MD [address] [place] [address] [place] [address] PCP - General 09/15/14 Dross Puller Relationship Specialty Start Date End Date Roopa Madera MD [address] [place], [place] [address] [address] PCP - General 09/15/14 Dross Puller Relationship Specialty Start Date End Date Roopa Madera MD [address] [place] [address] [place] [address] PCP - General Family Practice 10/15/18 Dross Puller Relationship Specialty Start Date End Date Roopa Madera MD [address] [place] [phone] PCP - General Family Practice 10/15/18 Dross Puller Relationship Specialty Start Date End Date Roopa Madera MD [address] [place], [phone] PCP - General Family Practice 10/15/18 Dross Puller Relationship Specialty Start Date End Date Roopa Madera MD [address] [place] [phone] PCP - General Family Practice 10/15/18 Dross Puller Relationship Specialty Start Date End Date Roopa Madera MD [address] [place], [phone] PCP - General Family Practice 10/15/18 Dross Puller Relationship Specialty Start Date End Date Roopa Madera MD [address] [place] [phone] PCP - General Family Practice 10/15/18 Dross Puller Relationship Specialty Start Date End Date Roopa Madera MD [address] [place], [phone] PCP - General Family Medicine 10/15/18 Dross Puller Relationship Specialty Start Date End Date Roopa Madera MD [address] [place] [address] PCP - General Family Medicine 10/15/18 Dross Puller Relationship Specialty Start Date End Date Roopa Madera MD [address] [place], [place] [phone] PCP - General 09/15/14 Kathy Ordonez MD [address] [place], [place] [id number] Surgeon Urology 07/19/22 Dross Puller Relationship Specialty Start Date End Date Roopa Madera MD [address] [place] [phone] PCP - General Family Medicine 10/15/18 Dross Puller Relationship Specialty Start Date End Date Roopa Madera MD [address] [place] [phone] PCP - General Family Medicine 10/15/18 Dross Puller Relationship Specialty Start Date End Date Roopa Madera MD [address] [place] [phone] PCP - General Family Medicine 10/15/18 Dross Puller Relationship Specialty Start Date End Date Roopa Madera MD [address] [place], [place] [phone] PCP - General 09/15/14 Kathy Ordonez MD [address] [place] [address] Surgeon Urology 07/19/22 Dross Puller Relationship Specialty Start Date End Date Roopa Madera MD [address] [place] [phone] PCP - General Family Medicine 10/15/18 Dross Puller Relationship Specialty Start Date End Date Roopa Madera MD [facility] [place], [place] [phone] PCP - General 09/15/14 Kathy Ordonez MD [address] [place] [address] Surgeon Urology 07/19/22 Dross Puller Relationship Specialty Start Date End Date Roopa Madera MD [address] [place] [address] PCP - General 09/15/14 Kathy Ordonez MD [address] [place] [address] Surgeon Urology 07/19/22 Dross Puller Relationship Specialty Start Date End Date Roopa Madera MD [address] [place] [phone] PCP - General Family Medicine 10/15/18 Dross Puller Relationship Specialty Start Date End Date Roopa Madera MD [facility] [place] [phone] PCP - General Family Medicine 10/15/18 Dross Puller Relationship Specialty Start Date End Date Roopa Maedra MD [address] [place] [phone] PCP - General Family Medicine 10/15/18 Dross Puller Relationship Specialty Start Date End Date Roopa Madera MD [address] [place] [address] PCP - General 09/15/14 Kathy Ordonez MD [address] [place] [address] Surgeon Urology 07/19/22 Dross Puller Relationship Specialty Start Date End Date Roopa Madera MD [address] [place] [address] PCP - General 09/15/14 Kathy Ordonez MD [address] [place] [address] Surgeon Urology 07/19/22 Dross Puller Relationship Specialty Start Date End Date Roopa Madera MD [address] [place] [address] PCP - General 09/15/14 Kathy Ordonez MD [address] [place] [address] Surgeon Urology 07/19/22 Dross Puller Relationship Specialty Start Date End Date Roopa Madera MD [address] [place] [address] PCP - General 09/15/14 Kathy Ordonez MD [address] [place] [address] Surgeon Urology 07/19/22 Dross Puller Relationship Specialty Start Date End Date Roopa Madera MD [address] [place] [address] PCP - General Family Medicine 10/15/18 Dross Puller Relationship Specialty Start Date End Date Roopa Madera MD [address] [place] [address] PCP - General 09/15/14 Kathy Ordonez MD [address] [place] [address] Surgeon Urology 07/19/22 Dross Puller Relationship Specialty Start Date End Date Roopa Madera MD [address] [place] [address] PCP - General 09/15/14 Kathy Ordonez MD [address] [place] [address] Surgeon Urology 07/19/22 Dross Puller Relationship Specialty Start Date End Date Roopa Madera MD [address] [place] [address] PCP - General 09/15/14 Kathy Ordonez MD [address] [place] [address] Surgeon Urology 07/19/22 Dross Puller Relationship Specialty Start Date End Date Roopa Madera MD [address] [place] [address] PCP - General 09/15/14 Kathy Ordonez MD [address] [place] [address] Surgeon Urology 07/19/22 Dross Puller Relationship Specialty Start Date End Date Roopa Madera MD [address] [place] [address] PCP - General Family Medicine 10/15/18 Dross Puller Relationship Specialty Start Date End Date Roopa Madera MD [address] [place] [address] PCP - General 09/15/14 Kathy Ordonez MD [address] [place] [address] Surgeon Urology 07/19/22 Dross Puller Relationship Specialty Start Date End Date Roopa Madera MD [address] [place] [address] PCP - General 09/15/14 Kathy Ordonez MD [address] [facility] [address] [place] [address] Surgeon Urology 07/19/22 Dross Puller Relationship Specialty Start Date End Date Roopa Madera MD [address] [place] [address] PCP - General 09/15/14 Kathy Ordonez MD [address] [facility] [place] [address] Surgeon Urology 07/19/22 Team Status: Active Member Role Status Daylin MADERA Primary Care Provider Active Team Status: Active Member Role Status Daylin Post MD Emergency Provider Active TRENT MORALES Primary Care Provider Active Dr. Channing Bridges , DO Admit Provider, Other Pro vider Active Dr. Radha Schofield , DO Attending Provider, Other Provide r Active Team Status: Active Member Role Status Daylin Post MD Emergency Provider Active TRENT MORALES Primary Care Provider Active Dr. Channing Bridges , DO Admit Provider, Other Pro vider Active Dr. Yusuf Nelson MD Attending Provider, Other Provi marlo Active Dr. Radha Schofield , DO Other Provider Active Dr. Will Roque MD Other Provider Active Team Status: Inactive Member Role Status Daylin Post MD Emergency Provider Active TRENT MORALES Primary Care Provider Active Dr. Channing Bridges , DO Admit Provider, Other Pro vider Active Dr. Yusuf Nelson MD Attending Provider Active Dr. Radha Schofield , DO Other Provider Active Dr. Will Roque MD Other Provider Active Dross Puller Relationship Specialty Start Date End Date Roopa Madera MD [address] [place] [address] PCP - General 09/15/14 Kathy Ordonez MD [address] [place] [address] Surgeon Urology 07/19/22 Dross Puller Relationship Specialty Start Date End Date Roopa Madera MD [address] [place] [address] PCP - General 09/15/14 Kathy Ordonez MD [address] [place] [address] Surgeon Urology 07/19/22 Dross Puller Relationship Specialty Start Date End Date Roopa Madera MD [address] [place] [address] PCP - General 09/15/14 Kathy Ordonez MD [address] [place] [address] Surgeon Urology 07/19/22 Dross Puller Relationship Specialty Start Date End Date Roopa Madera MD [address] [place] [address] PCP - General 09/15/14 Kathy Ordonez MD [address] [place] [address] Surgeon Urology 07/19/22 Dross Puller Relationship Specialty Start Date End Date Roopa Madera MD [address] [place] [address] PCP - General 09/15/14 Kathy Ordonez MD [address] [place] [address] Surgeon Urology 07/19/22 Dross Puller Relationship Specialty Start Date End Date Roopa Madera MD [address] [place] [address] PCP - General 09/15/14 Kathy Ordonez MD [address] [place] [address] Surgeon Urology 07/19/22 Dross Puller Relationship Specialty Start Date End Date Roopa Madera MD [facility] [place] [address] PCP - General 09/15/14 Kathy Ordonez MD [address] [place] [address] Surgeon Urology 07/19/22 Dross Puller Relationship Specialty Start Date End Date Roopa Madera MD [address] [place] [phone] PCP - General Family Medicine 10/15/18 Dross Puller Relationship Specialty Start Date End Date Roopa Madera MD [address] [place] [phone] PCP - General 09/15/14 Kathy Ordonez MD [address] [place] [address] Surgeon Urology 07/19/22 Dross Puller Relationship Specialty Start Date End Date Roopa Madera MD [address] [place] [phone] PCP - General 09/15/14 Kathy Ordonez MD [address] [place] [address] Surgeon Urology 07/19/22 Dross Puller Relationship Specialty Start Date End Date Roopa Madera MD [address] [place] [phone] PCP - General 09/15/14 Kathy Ordonez MD [address] [place] [address] Surgeon Urology 07/19/22 Dross Puller Relationship Specialty Start Date End Date Roopa Madera MD [address] [place] [phone] PCP - General 09/15/14 Kathy Ordonez MD [address] [place] [address] Surgeon Urology 07/19/22 Yenifer Dc DO [address] [place] [address] Surgeon Urology 04/08/24 Dross Puller Relationship Specialty Start Date End Date Roopa Madera MD [address] [place] [phone] PCP - General 09/15/14 Kathy Ordonez MD [address] [place] [address] Surgeon Urology 07/19/22 Yenifer Dc DO [address] [place] [address] Surgeon Urology 04/08/24 Dross Puller Relationship Specialty Start Date End Date Roopa Madera MD [facility] [place] [phone] PCP - General 09/15/14 Kathy Ordonez MD [address] [place] [address] Surgeon Urology 07/19/22 Yenifer Dc DO [address] [place] [address] Surgeon Urology 04/08/24 Dross Puller Relationship Specialty Start Date End Date Roopa Madera MD [facility] [place] [phone] PCP - General 09/15/14 Kathy Ordonez MD [address] [place] [address] Surgeon Urology 07/19/22 Yenifer Dc DO [address] [place] [address] Surgeon Urology 04/08/24 Team Status: Active Member Role Status Dates Out of Town Doctor Primary Care Provider Active Team Status: Active Member Role Status Dates Out of Town Doctor Primary Care Provider Active Start: April 18, 2024 Castillo HURLEY MD Attending Provider Active S tart: April 18, 2024 Castillo HURLEY MD Referring Provider Active S tart: April 18, 2024 Team Status: Inactive Member Role Status Dates Out of Town Doctor Primary Care Provider Active Start: July 15, 2024 End: July 15, 2024 Castillo HURLEY MD Attending Provider Active S tart: July 15, 2024 End: July 15, 2024 Castillo HURLEY MD Referring Provider Active S tart: July 15, 2024 End: July 15, 2024 Source Comments (unrecognize d section and content) In the event this informatio n is protected by the Federal Confidentiality of Alcohol and Drug Abuse Patient Records regulations: The Federal rules restrict any use of the information to criminally investigate or prosecute any alcohol or drug abuse patient.[facility] Center[facility] the event this information is protected by the Federal Confidentiality of Alcohol and Drug Abuse Patient Records regulations: The Federal rules restrict any use of the information to criminally investigate or prosecute any alcohol or drug abuse patient.[facility] CenterIn the event this information is protected by the Federal Confidentiality of Alcohol and Drug Abuse Patient Records regulations: The Federal rules restrict any use of the information to criminally investigate or prosecute any alcohol or drug abuse patient.[facility] CenterIn the event this information is protected by the Federal Confidentiality of Alcohol and Drug Abuse Patient Records regulations: The Federal rules restrict any use of the information to criminally investigate or prosecute any alcohol or drug abuse patient.[facility] CenterIn the event this information is protected by the Federal Confidentiality of Alcohol and Drug Abuse Patient Records regulations: The Federal rules restrict any use of the information to criminally investigate or prosecute any alcohol or drug abuse patient.[facility] CenterIn the event this information is protected by the Federal Confidentiality of Alcohol and Drug Abuse Patient Records regulations: The Federal rules restrict any use of the information to criminally investigate or prosecute any alcohol or drug abuse patient.[facility] CenterIn the event this information is protected by the Federal Confidentiality of Alcohol and Drug Abuse Patient Records regulations: The Federal rules restrict any use of the information to criminally investigate or prosecute any alcohol or drug abuse patient.[facility] CenterIn the event this information is protected by the Federal Confidentiality of Alcohol and Drug Abuse Patient Records regulations: The Federal rules restrict any use of the information to criminally investigate or prosecute any alcohol or drug abuse patient.[facility] CenterIn the event this information is protected by the Federal Confidentiality of Alcohol and Drug Abuse Patient Records regulations: The Federal rules restrict any use of the information to criminally investigate or prosecute any alcohol or drug abuse patient.[facility] CenterIn the event this information is protected by the Federal Confidentiality of Alcohol and Drug Abuse Patient Records regulations: The Federal rules restrict any use of the information to criminally investigate or prosecute any alcohol or drug abuse patient.[facility] CenterIn the event this information is protected by the Federal Confidentiality of Alcohol and Drug Abuse Patient Records regulations: The Federal rules restrict any use of the information to criminally investigate or prosecute any alcohol or drug abuse patient.[facility] CenterIn the event this information is protected by the Federal Confidentiality of Alcohol and Drug Abuse Patient Records regulations: The Federal rules restrict any use of the information to criminally investigate or prosecute any alcohol or drug abuse patient.[facility] CenterIn the event this information is protected by the Federal Confidentiality of Alcohol and Drug Abuse Patient Records regulations: The Federal rules restrict any use of the information to criminally investigate or prosecute any alcohol or drug abuse patient.[facility] CenterIn the event this information is protected by the Federal Confidentiality of Alcohol and Drug Abuse Patient Records regulations: The Federal rules restrict any use of the information to criminally investigate or prosecute any alcohol or drug abuse patient.[facility] CenterIn the event this information is protected by the Federal Confidentiality of Alcohol and Drug Abuse Patient Records regulations: The Federal rules restrict any use of the information to criminally investigate or prosecute any alcohol or drug abuse patient.[facility] CenterIn the event this information is protected by the Federal Confidentiality of Alcohol and Drug Abuse Patient Records regulations: The Federal rules restrict any use of the information to criminally investigate or prosecute any alcohol or drug abuse patient.[facility] CenterIn the event this information is protected by the Federal Confidentiality of Alcohol and Drug Abuse Patient Records regulations: The Federal rules restrict any use of the information to criminally investigate or prosecute any alcohol or drug abuse patient.[facility] CenterIn the event this information is protected by the Federal Confidentiality of Alcohol and Drug Abuse Patient Records regulations: The Federal rules restrict any use of the information to criminally investigate or prosecute any alcohol or drug abuse patient.[facility] CenterIn the event this information is protected by the Federal Confidentiality of Alcohol and Drug Abuse Patient Records regulations: The Federal rules restrict any use of the information to criminally investigate or prosecute any alcohol or drug abuse patient.[facility] CenterIn the event this information is protected by the Federal Confidentiality of Alcohol and Drug Abuse Patient Records regulations: The Federal rules restrict any use of the information to criminally investigate or prosecute any alcohol or drug abuse patient.[facility] CenterIn the event this information is protected by the Federal Confidentiality of Alcohol and Drug Abuse Patient Records regulations: The Federal rules restrict any use of the information to criminally investigate or prosecute any alcohol or drug abuse patient.[facility] Goals (unrecognized section and content) Goals may be documented in a n alternate section FOR RECORDS PERTAINING TO PATIENTS WHO ARE OR HAVE BEEN ENROLLED IN A CHEMICAL DEPENDENCY/SUBSTANCEABUSE PROGRAM, SOME INFORMATION MAY BE OMITTED. This clinical summary was aggregated from multiple sources. Caution should be exercised in using it in the provision of clinical care. This summary normalizes information from multiple sources, and as a consequence, information in this document may materially change the coding, format and clinical context of patient data. In addition, data may be omitted in some cases. CLINICAL DECISIONS SHOULD BE BASED ON THE PRIMARY CLINICAL RECORDS. [employer] [facility]. provides no warranty or guarantee of the accuracy or completeness of information in this document.
--- OUTSIDE RECORDS SUMMARY | 2024-10-27 04:11 | XMS RPT_ITS | CCD ---
Author Organization [facility] ion [facility] Care Team Providers Care Derrick Worker Well Service Name Role Phone Roopa Madera Attending Unavailable Trent, Roopa Referring Unavailable Trent, Roopa Primary Care Unavailable Kathy Ordonez Attending Unavailable Trent, Roopa Referring Unavailable Trent, Roopa Primary Care Unavailable Kathy Ordonez Attending Unavailable Trent, Roopa Referring Unavailable Trent, Roopa Primary Care Unavailable Trent, Ropoa Attending Unavailable Trent, Roopa Referring Unavailable Trent, Roopa Primary Care Unavailable Roopa Madera Primary Care Provider Roopa Madera Primary Care Provider Roopa Madera MD Primary Care Provider Roopa Madera MD Primary Care Provider [phone] Roopa Madera MD Primary Care Provider Roopa Madera MD Primary Care Provider [phone] Roopa Madera MD Primary Care Provider Kathy Ordonez MD Unavailable SAIGE RUSHING Attending Unavailable Roopa Madera MD Primary Care Provider Kathy Ordonez MD Unavailable MD Zechariah Post Emergency Provider [phone] ROOPA MADERA Primary Care Provider [phone] Dr. Channing Bridges Admit Provider [phone] Dr. Channing Bridges Other Provider [phone] Dr. Radha Schofield Attending Provider [phone] Radha Schofield Other Provider Dr. Yusuf Nelson Attending Provider Dr. Yusuf Nelson Other Provider [phone] Will Roque Other Provider [phone] Shelly MOODY, Kathy Unavailable [phone] Roopa Madera MD Primary Care Provider [phone] ROOPA MADERA Attending Unavailable ROOPA MADERA Primary [...] (11 sources) Doxycycline Drug Allergy 07-27-19 17 [place], [place] (20 sources) Erythromycin; Translations: [ERYTHROMYCIN] Drug Allergy 11-14-19 13 [place], [place] (11 sources) Minocycline Drug Allergy 07-27-19 17 [place] (13 sources) Penicillins; Translations: [PENICILLINS] Propensity to adverse reactions to drug 11-14-19 13 [place] (11 sources) Sulfonamides (Antibiotic) Propensity to adverse reactions to drug 07-27-19 17 [place] (12 sources) Tetracyclines & Related Propensity to adverse reactions to drug 07-27-19 17 [place] (20 sources) Ciprofloxacin; Translations: [CIPROFLOXACIN] Drug Allergy 05-26-19 20 Unknown [facility] Work Phone: (20 sources) Allopurinol; Translations: [ALLOPURINOL] Drug Allergy 07-09-19 14 Unknown [facility] (20 sources) Doxycycline; Translations: [DOXYCYCLINE] Drug Allergy 11-14-19 13 [facility] (20 sources) levoFLOXacin; Translations: [LEVOFLOXACIN] Drug Allergy 10-01-19 21 Other: See Comments, Other [facility] (20 sources) Minocycline; Translations: [MINOCYCLINE] Drug Allergy 07-09-19 14 [facility] (20 sources) PARoxetine; Translations: [PAROXETINE] Drug Allergy 10-01-19 21 Other: See Comments, [facility] (3 sources) Penicillins Drug Allergy 11-14-19 13 [facility] (20 sources) Simvastatin; Translations: [SIMVASTATIN] Drug Allergy 10-01-19 21 Rash, Itching [facility] (20 sources) Sulfacetamide; Translations: [SULFACETAMIDE] Drug Allergy 09-03-19 15 [facility] (20 sources) Sulfonamides (Antibiotic); Translations: [SULFA (SULFONAMIDE ANTIBIOTICS)] Drug Allergy 09-03-19 15 [facility] (20 sources) Tetracycline; Translations: [TETRACYCLINE] Drug Allergy 11-14-19 13 Unknown [facility] (18 sources) Penicillins Drug Allergy 11-14-19 13 Unknown [facility] (20 sources) Penicillins Drug Allergy 11-14-19 13 Unknown [facility] (20 sources) Tetracycline (class of antibiotic) Drug Intolerance 11-14-19 13 Unknown [facility] (2 sources) Penicillins Allergy to substance 12-03-20 23 PT UNSURE OF REACTION [facility] (2 sources) Sulfonamides (Antibiotic) Allergy to substance 03-18-20 PT UNSURE OF REACTION [facility] (2 sources) Tetracyclines Allergy to substance 03-18-20 PT UNSURE OF REACTION [facility] (9 sources) Omeprazole Drug Allergy 04-07-20 [facility] (1 source) Allopurinol Drug Allergy 03-18-20 [facility] (1 source) Ciprofloxacin Drug Allergy 03-18-20 [facility] (1 source) Erythromycin Drug Allergy 03-18-20 [facility] (1 source) levoFLOXacin Drug Allergy 03-18-20 [facility] (1 source) PARoxetine Drug Allergy 03-18-20 [facility] (1 source) Penicillins Drug allergy (disorder) 03-18-20 [facility] (1 source) Sulfonamides (Antibiotic) Drug allergy (disorder) 03-18-20 [facility] (1 source) Tetracyclines Drug allergy (disorder) 03-18-20 [facility] Medications Current Medications Medication Drug Class(es) [...] every week ergocalciferol (Vitamin D-2) 1.25 MG (10946 UT) capsule Take 1 capsule (1.25 mg) by mouth 1 (one) time per week. 12 capsule 04/10/2024 Active Start: 03-18-2023 Ergocalciferol (Vitamin D2) (Drisdol) 1,250 mcg (50,000 unit) capsule Active 1250 ug PO EVERY WEEK March 18, 2023 1:00am Start: 02-24-2023 End: 04-15-2023 take 1 capsule by mouth every week ergocalciferol (Vitamin D2) 1.25 MG (57580 UT) capsule Take 1 capsule (1.25 mg) by mouth 1 (one) time per week for 8 doses. 0 02/24/2023 04/15/2023 Active Start: 02-17-2023 End: 02-19-2023 ergocalciferol (Vitamin D2) capsule 1.25 mg End: 04-10-2024 take 1 capsule by mouth once daily ergocalciferol (Vitamin D-2) 1.25 MG (26004 UT) capsule Take 1.25 mg by mouth [...] on above: Take 1 capsule by mo [facility] once daily. ondansetron (ZOFRAN-ODT) disintegrating tablet 4 [...] hours as needed for pain HYDROcodone-acet aminophen ([place]) 5-325 MG per tablet 1 tablet Start: [...] FOR PAIN FOR UP TO 3 DAYS. [id number] actuat albuter ol 0.09 mg/actuat metered [...] extended release oral tablet (12 sources) Uncompetitive O-dlypvx-C-aspartat e Receptor Antagonist, Sigma-1 Agonist Start: 12-31-2022 [...] daily. docusate sodium 50 mg / sennosides, senior care 8.6 mg oral tablet (2 sources) Start: [...] tablet GUAIFENESIN TABS as needed GUAIFENESIN TABS [id number] Anny Masterson VARNISH INSPECTOR-MEDICAL BILLING ASSOCIATE 0 02/15/2016 Active End: 06-22-2019 take 10 [...] above: GUAIFENESIN TABS as needed GUAIFENESIN TABS [id number] Anny Masterson VARNISH INSPECTOR-MEDICAL BILLING ASSOCIATE ibuprofen 400 mg oral tablet (2 sources) [...] 2 times daily. Active polyethylene glycol 3350 54063 mg powder for oral solution (20 sources) [...] Start: 12-31-2022 End: 01-04-2023 5-250 mL/hr, IntraVENous, [place] N, if patient receiving piggyback infusions and [...] pat dry, apply ET mix and leave OFFICE SERVICES SPECIALIST TID and PRN Start: 04-08-2024 End: 04-11-2024 [...] aftercare (20 sources) Polypharmacy ; Translations: [Other watcher automat long goods (current) drug therapy] Onset: 02-14-2023 02-14-2023 Episodic [...] width (RBC) [Ratio] 15.2 % High 11.6-14.6 [facility] Comment on above: Order Comment: 306.1 Performed By: #### L 500.4050, L100.0500 #### [facility] [address] [place], [address] Hematocrit (Bld) [Volume fraction] 38.7 % Low 40-54 [facility] Comment on above: Order Comment: 306.1 Performed By: #### L 500.4050, L100.0500 #### [facility] [address] [place], [address] Hemoglobin (Bld) [Mass/Vol] 12.9 g/dL Low 13.0-16.5 [facility] Comment on above: Order Comment: 306.1 Performed By: #### L 500.4050, L100.0500 #### [facility] [address] [place], [address] MCH (RBC) [Entitic mass] 27.4 pg Normal 27.0-32.0 [facility] Comment on above: Order Comment: 306.1 Performed By: #### L 500.4050, L100.0500 #### [facility] [address] [place], [address] MCHC (RBC) [Mass/Vol] 33.3 g/dL Normal 32-36 [facility] Comment on above: Order Comment: 306.1 Performed By: #### L 500.4050, L100.0500 #### [facility] [address] [place], [address] MCV (RBC) [Entitic vol] 82.3 fL Normal 80-94 [facility] Comment on above: Order Comment: 306.1 Performed By: #### L 500.4050, L100.0500 #### [facility] [address] [place], [address] Platelet mean volume (Bld) [Entitic vol] 9.6 fL Normal 6.2-12.0 [facility] Comment on above: Order Comment: 306.1 Performed By: #### L 500.4050, L100.0500 #### [facility] [address] [place], [address] Platelets (Bld) [#/Vol] 532 10*3/uL High 150-450 [facility] Comment on above: Order Comment: 306.1 Performed By: #### L 500.4050, L100.0500 #### [facility] [address] [place], [address] RBC (Bld) [#/Vol] 4.70 10*6/uL Normal 4.6-6.2 [facility] Comment on above: Order Comment: 306.1 Performed By: #### L 500.4050, L100.0500 #### [facility] [address] [place], [address] RDW SD 45.1 fl High 35.1-43.9 [facility] Comment on above: Order Comment: 306.1 Performed By: #### L 500.4050, L100.0500 #### [facility] [address] [place], [address] WBC (Bld) [#/Vol] 18.7 10*3/uL High 4.4-11.0 [facility] Comment on above: Order Comment: 306.1 Performed By: #### L 500.4050, L100.0500 #### [facility] [address] [place], [address] Comprehensive Metabolic Prof nmon 09-11-2024 Albumin [Mass/Vol] 3.4 g/dL Normal 3.4-4.8 [facility] Comment on above: Order Comment: 306.1 Performed By: #### L 500.4050, L100.0500 #### [facility] [address] [place], [address] Albumin/Globulin [Mass ratio] 1.1 {ratio} Normal 0.9-2.4 [facility] Comment on above: Order Comment: 306.1 Performed By: #### L 500.4050, L100.0500 #### [facility] [address] [place], [address] ALK PHOS 95 U/L Normal 40-129 [facility] Comment on above: Order Comment: 306.1 Performed By: #### L 500.4050, L100.0500 #### [facility] [address] [place], [address] ALT [Catalytic activity/Vol] 9 U/L Normal <=46 [facility] Comment on above: Order Comment: 306.1 Performed By: #### L 500.4050, L100.0500 #### [facility] [address] [place], [address] AST [Catalytic activity/Vol] 17 U/L Normal <=37 [facility] Comment on above: Order Comment: 306.1 Performed By: #### L 500.4050, L100.0500 #### [facility] [address] [place], [address] Bilirubin [Mass/Vol] 0.88 mg/dL Normal 0.00-1.30 [facility] Comment on above: Order Comment: 306.1 Performed By: #### L 500.4050, L100.0500 #### [facility] [address] [place], [address] BUN/CRE 22.6 RATIO High 10-20 [facility] Comment on above: Order Comment: 306.1 Performed By: #### L 500.4050, L100.0500 #### [facility] [address] [place], [address] Calcium [Mass/Vol] 9.4 mg/dL Normal 7.6-11.0 [facility] Comment on above: Order Comment: 306.1 Performed By: #### L 500.4050, L100.0500 #### [facility] [address] [place], [address] Chloride [Moles/Vol] 99 mmol/L Normal 98-108 [facility] Comment on above: Order Comment: 306.1 Performed By: #### L 500.4050, L100.0500 #### [facility] [address] [place], [address] CO2 [Moles/Vol] 25.5 mmol/L Normal 21.0-32.0 [facility] Comment on above: Order Comment: 306.1 Performed By: #### L 500.4050, L100.0500 #### [facility] [address] [place], [address] Creatinine [Mass/Vol] 0.60 mg/dL Low 0.70-1.20 [facility] Comment on above: Order Comment: 306.1 Performed By: #### L 500.4050, L100.0500 #### [facility] [address] [place], [address] GAP 10 Normal 5-15 [facility] Comment on above: Order Comment: 306.1 Performed By: #### L 500.4050, L100.0500 #### [facility] [address] [place], [address] GFR/1.73 sq M.predicted among non-blacks MDRD (S/P/Bld) [Vol rate/Area] 95 mL/min/{1.73_m2} Normal >60 [facility] Comment on above: Order Comment: 306.1 Result Comment: mL/m in/1.73m2 CKD-EPI Creatinine Equation (2020) Performed By: #### L 500.4050, L100.0500 #### [facility] [address] [place], [address] Globulin (S) [Mass/Vol] 3.2 g/dL Normal 2.2-4.2 [facility] Comment on above: Order Comment: 306.1 Performed By: #### L 500.4050, L100.0500 #### [facility] [address] [place], [address] Glucose [Mass/Vol] 104 mg/dL High 70-99 [facility] Comment on above: Order Comment: 306.1 Performed By: #### L 500.4050, L100.0500 #### [facility] [address] [place], [address] Potassium [Moles/Vol] 4.2 mmol/L Normal 3.3-5.1 [facility] Comment on above: Order Comment: 306.1 Performed By: #### L 500.4050, L100.0500 #### [facility] [address] [place], [address] Sodium [Moles/Vol] 134 mmol/L Normal 133-145 [facility] Comment on above: Order Comment: 306.1 Performed By: #### L 500.4050, L100.0500 #### [facility] [address] [place], [address] T PROT 6.6 g/dL Normal 5.9-8.4 [facility] Comment on above: Order Comment: 306.1 Performed By: #### L 500.4050, L100.0500 #### [facility] [address] [place], [address] Urea nitrogen [Mass/Vol] 14 mg/dL Normal 4-19 [facility] Comment on above: Order Comment: 306.1 Performed By: #### L 500.4050, L100.0500 #### [facility] [address] [place], [address] CBC-Complete Blood Cnt No Di ffon 08-20-2024 Erythrocyte distribution width (RBC) [Ratio] 14.2 % Normal 11.6-14.6 [facility] Comment on above: Order Comment: 306.1 Performed By: #### L 100.0500, L500.4050 #### [facility] [address] [place], [address] Hematocrit (Bld) [Volume fraction] 38.4 % Low 40-54 [facility] Comment on above: Order Comment: 306.1 Performed By: #### L 100.0500, L500.4050 #### [facility] [address] [place], [address] Hemoglobin (Bld) [Mass/Vol] 12.6 g/dL Low 13.0-16.5 [facility] Comment on above: Order Comment: 306.1 Performed By: #### L 100.0500, L500.4050 #### [facility] [address] [place], [address] MCH (RBC) [Entitic mass] 27.3 pg Normal 27.0-32.0 [facility] Comment on above: Order Comment: 306.1 Performed By: #### L 100.0500, L500.4050 #### [facility] [address] [place], [address] MCHC (RBC) [Mass/Vol] 32.8 g/dL Normal 32-36 [facility] Comment on above: Order Comment: 306.1 Performed By: #### L 100.0500, L500.4050 #### [facility] [address] [place], [address] MCV (RBC) [Entitic vol] 83.1 fL Normal 80-94 [facility] Comment on above: Order Comment: 306.1 Performed By: #### L 100.0500, L500.4050 #### [facility] [address] [place], [address] Platelet mean volume (Bld) [Entitic vol] 9.7 fL Normal 6.2-12.0 [facility] Comment on above: Order Comment: 306.1 Performed By: #### L 100.0500, L500.4050 #### [facility] [address] [place], [address] Platelets (Bld) [#/Vol] 480 10*3/uL High 150-450 [facility] Comment on above: Order Comment: 306.1 Performed By: #### L 100.0500, L500.4050 #### [facility] [address] [place], [address] RBC (Bld) [#/Vol] 4.62 10*6/uL Normal 4.6-6.2 [facility] Comment on above: Order Comment: 306.1 Performed By: #### L 100.0500, L500.4050 #### [facility] [address] [place], [address] RDW SD 42.4 fl Normal 35.1-43.9 [facility] Comment on above: Order Comment: 306.1 Performed By: #### L 100.0500, L500.4050 #### [facility] [address] [place], [address] WBC (Bld) [#/Vol] 10.8 10*3/uL Normal 4.4-11.0 [facility] Comment on above: Order Comment: 306.1 Performed By: #### L 100.0500, L500.4050 #### [facility] [address] [place], [address] Comprehensive Metabolic Prof ilon 08-20-2024 Albumin [Mass/Vol] 3.3 g/dL Low 3.4-4.8 [facility] Comment on above: Order Comment: 306.1 Performed By: #### L 100.0500, L500.4050 #### [facility] [address] [place], [address] Albumin/Globulin [Mass ratio] 1.0 {ratio} Normal 0.9-2.4 [facility] Comment on above: Order Comment: 306.1 Performed By: #### L 100.0500, L500.4050 #### [facility] [address] [place], [address] ALK PHOS 89 U/L Normal 40-129 [facility] Comment on above: Order Comment: 306.1 Performed By: #### L 100.0500, L500.4050 #### [facility] [address] [place], [address] ALT [Catalytic activity/Vol] 11 U/L Normal <=46 [facility] Comment on above: Order Comment: 306.1 Performed By: #### L 100.0500, L500.4050 #### [facility] [address] [place], [address] AST [Catalytic activity/Vol] 22 U/L Normal <=37 [facility] Comment on above: Order Comment: 306.1 Performed By: #### L 100.0500, L500.4050 #### [facility] [address] [place], [address] Bilirubin [Mass/Vol] 0.45 mg/dL Normal 0.00-1.30 [facility] Comment on above: Order Comment: 306.1 Performed By: #### L 100.0500, L500.4050 #### [facility] [address] [place], [address] BUN/CRE 24.7 RATIO High 10-20 [facility] Comment on above: Order Comment: 306.1 Performed By: #### L 100.0500, L500.4050 #### [facility] [address] [place], [address] Calcium [Mass/Vol] 9.2 mg/dL Normal 7.6-11.0 [facility] Comment on above: Order Comment: 306.1 Performed By: #### L 100.0500, L500.4050 #### [facility] [address] [place], [address] Chloride [Moles/Vol] 98 mmol/L Normal 98-108 [facility] Comment on above: Order Comment: 306.1 Performed By: #### L 100.0500, L500.4050 #### [facility] [address] [place], [address] CO2 [Moles/Vol] 25.9 mmol/L Normal 21.0-32.0 [facility] Comment on above: Order Comment: 306.1 Performed By: #### L 100.0500, L500.4050 #### [facility] [address] [place], [address] Creatinine [Mass/Vol] 0.56 mg/dL Low 0.70-1.20 [facility] Comment on above: Order Comment: 306.1 Performed By: #### L 100.0500, L500.4050 #### [facility] [address] [place], [address] GAP 10 Normal 5-15 [facility] Comment on above: Order Comment: 306.1 Performed By: #### L 100.0500, L500.4050 #### [facility] [address] [place], [address] GFR/1.73 sq M.predicted among non-blacks MDRD (S/P/Bld) [Vol rate/Area] 97 mL/min/{1.73_m2} Normal >60 [facility] Comment on above: Order Comment: 306.1 Result Comment: mL/m in/1.73m2 CKD-EPI Creatinine Equation (2020) Performed By: #### L 100.0500, L500.4050 #### [facility] [address] [place], [address] Globulin (S) [Mass/Vol] 3.2 g/dL Normal 2.2-4.2 [facility] Comment on above: Order Comment: 306.1 Performed By: #### L 100.0500, L500.4050 #### [facility] [address] [place], [address] Glucose [Mass/Vol] 89 mg/dL Normal 70-99 [facility] Comment on above: Order Comment: 306.1 Performed By: #### L 100.0500, L500.4050 #### [facility] [address] [place], [address] Potassium [Moles/Vol] 3.8 mmol/L Normal 3.3-5.1 [facility] Comment on above: Order Comment: 306.1 Performed By: #### L 100.0500, L500.4050 #### [facility] [address] [place], [address] Sodium [Moles/Vol] 134 mmol/L Normal 133-145 [facility] Comment on above: Order Comment: 306.1 Performed By: #### L 100.0500, L500.4050 #### [facility] [address] [place], [address] T PROT 6.5 g/dL Normal 5.9-8.4 [facility] Comment on above: Order Comment: 306.1 Performed By: #### L 100.0500, L500.4050 #### [facility] [address] [place], [address] Urea nitrogen [Mass/Vol] 14 mg/dL Normal 4-19 [facility] Comment on above: Order Comment: 306.1 Performed By: #### L 100.0500, L500.4050 #### [facility] [address] [place], [address] Anion gap in Serum or Plasma Ordered By: Castillo Ortiz on 07-15-2024 Anion gap [Moles/Vol] 10 mmol/L 5-15 [facility] BUN/creatinine ratioOrdered By: Castillo Ortiz on 07-15-2024 Urea nitrogen/Creatinine [Mass ratio] 29.2 mg/mg High 10-20 [facility] Basic Metabolic Profile (BMP )on 07-15-2024 BUN/CRE 29.2 RATIO High 10-20 [facility] Comment on above: Order Comment: 306.1 Performed By: #### L 100.0500, L500.2500 #### [facility] [address] [place], [address] Calcium [Mass/Vol] 9.5 mg/dL Normal 7.6-11.0 [facility] Comment on above: Order Comment: 306.1 Performed By: #### L 100.0500, L500.2500 #### [facility] [address] [place], [address] Chloride [Moles/Vol] 101 mmol/L Normal 98-108 [facility] Comment on above: Order Comment: 306.1 Performed By: #### L 100.0500, L500.2500 #### [facility] [address] [place], [address] CO2 [Moles/Vol] 27.1 mmol/L Normal 21.0-32.0 [facility] Comment on above: Order Comment: 306.1 Performed By: #### L 100.0500, L500.2500 #### [facility] [address] [place], [address] Creatinine [Mass/Vol] 0.68 mg/dL Low 0.70-1.20 [facility] Comment on above: Order Comment: 306.1 Performed By: #### L 100.0500, L500.2500 #### [facility] [address] [place], [address] GAP 10 Normal 5-15 [facility] Comment on above: Order Comment: 306.1 Performed By: #### L 100.0500, L500.2500 #### [facility] [address] [place], [address] GFR/1.73 sq M.predicted among non-blacks MDRD (S/P/Bld) [Vol rate/Area] 92 mL/min/{1.73_m2} Normal >60 [facility] Comment on above: Order Comment: 306.1 Result Comment: mL/m in/1.73m2 CKD-EPI Creatinine Equation (2020) Performed By: #### L 100.0500, L500.2500 #### [facility] [address] [place], [address] Glucose [Mass/Vol] 92 mg/dL Normal 70-99 [facility] Comment on above: Order Comment: 306.1 Performed By: #### L 100.0500, L500.2500 #### [facility] [address] [place], [address] Potassium [Moles/Vol] 3.7 mmol/L Normal 3.3-5.1 [facility] Comment on above: Order Comment: 306.1 Performed By: #### L 100.0500, L500.2500 #### [facility] [address] [place], [address] Sodium [Moles/Vol] 138 mmol/L Normal 133-145 [facility] Comment on above: Order Comment: 306.1 Performed By: #### L 100.0500, L500.2500 #### [facility] [address] [place], [address] Urea nitrogen [Mass/Vol] 20 mg/dL High 4-19 [facility] Comment on above: Order Comment: 306.1 Performed By: #### L 100.0500, L500.2500 #### [facility] [address] [place], [address] CBC-Complete Blood Cnt No Di ffon 07-15-2024 Erythrocyte distribution width (RBC) [Ratio] 13.6 % Normal 11.6-14.6 [facility] Comment on above: Order Comment: 306.1 Performed By: #### L 100.0500, L500.2500 #### [facility] [address] [place], [address] Hematocrit (Bld) [Volume fraction] 38.2 % Low 40-54 [facility] Comment on above: Order Comment: 306.1 Performed By: #### L 100.0500, L500.2500 #### [facility] [address] [place], [address] Hemoglobin (Bld) [Mass/Vol] 12.8 g/dL Low 13.0-16.5 [facility] Comment on above: Order Comment: 306.1 Performed By: #### L 100.0500, L500.2500 #### [facility] [address] [place], [address] MCH (RBC) [Entitic mass] 28.3 pg Normal 27.0-32.0 [facility] Comment on above: Order Comment: 306.1 Performed By: #### L 100.0500, L500.2500 #### [facility] [address] [place], [address] MCHC (RBC) [Mass/Vol] 33.5 g/dL Normal 32-36 [facility] Comment on above: Order Comment: 306.1 Performed By: #### L 100.0500, L500.2500 #### [facility] [address] [place], [address] MCV (RBC) [Entitic vol] 84.5 fL Normal 80-94 [facility] Comment on above: Order Comment: 306.1 Performed By: #### L 100.0500, L500.2500 #### [facility] [address] [place], [address] Platelet mean volume (Bld) [Entitic vol] 9.5 fL Normal 6.2-12.0 [facility] Comment on above: Order Comment: 306.1 Performed By: #### L 100.0500, L500.2500 #### [facility] [address] [place], [address] Platelets (Bld) [#/Vol] 530 10*3/uL High 150-450 [facility] Comment on above: Order Comment: 306.1 Performed By: #### L 100.0500, L500.2500 #### [facility] [address] [place], [address] RBC (Bld) [#/Vol] 4.52 10*6/uL Low 4.6-6.2 [facility] Comment on above: Order Comment: 306.1 Performed By: #### L 100.0500, L500.2500 #### [facility] [address] [place], [address] RDW SD 42.1 fl Normal 35.1-43.9 [facility] Comment on above: Order Comment: 306.1 Performed By: #### L 100.0500, L500.2500 #### [facility] [address] [place], [address] WBC (Bld) [#/Vol] 10.7 10*3/uL Normal 4.4-11.0 [facility] Comment on above: Order Comment: 306.1 Performed By: #### L 100.0500, L500.2500 #### [facility] [address] [place], [address] Carbon dioxide, total [Moles /volume] in Central venous bloodOrdered By: Castillo Ortiz on 07-15-2024 CO2 [Moles/Vol] 27.1 mmol/L 21.0-32.0 [facility] Chloride assayOrdered By: Espinoza on 07-15-2024 Chloride [Moles/Vol] 101 mmol/L 98-108 [facility] Erythrocyte distribution wid th (RBC) [Ratio]Ordered By: Castillo Ortiz on 07-15-2024 Erythrocyte distribution width (RBC) [Entitic vol] 42.1 fL 35.1-43.9 [facility] Erythrocyte distribution wid th ratioOrdered By: Castillo Ortiz on 07-15-2024 Erythrocyte distribution width (RBC) [Ratio] 13.6 % 11.6-14.6 [facility] GFR/1.73 sq M.predicted kat g non-blacks MDRD (S/P/Bld) [Vol rate/Area]Ordered By: Castillo Otriz on 07-15-2024 Estimated GFR (MDRD) Non-Af Amer 92 >60 [facility] Comment on above: mL/min/1.73m2 CKD-EP I Creatinine Equation (2020) Hematocrit Auto (Bld) [Volum e fraction]Ordered By: Castillo Ortiz on 07-15-2024 Hematocrit (Bld) [Volume fraction] 38.2 % Low 40-54 [facility] Hemoglobin measurementOrdere d By: Castillo Ortiz on 07-15-2024 Hemoglobin (Bld) [Mass/Vol] 12.8 g/dL Low 13.0-16.5 [facility] MCV (mean corpuscular volume ) determinationOrdered By: Castillo Ortiz on 07-15-2024 MCV (RBC) [Entitic vol] 84.5 fL 80-94 [facility] Mean corpuscular hemoglobin (MCH) determinationOrdered By: Castillo Ortiz on 07-15-2024 MCH (RBC) [Entitic mass] 28.3 pg 27.0-32.0 [facility] Mean corpuscular hemoglobin concentration (MCHC) determinationOrdered By: Castillo Ortiz on 07-15-2024 MCHC (RBC) [Mass/Vol] 33.5 g/dL 32-36 [facility] Mean platelet volume determi nationOrdered By: Castillo Ortiz on 07-15-2024 Platelet mean volume (Bld) [Entitic vol] 9.5 fL 6.2-12.0 [facility] Platelet countOrdered By: Espinoza on 07-15-2024 Platelets (Bld) [#/Vol] 530 10*3/uL High 150-450 [facility] Potassium (Unsp spec) [Mass/ Vol]Ordered By: Castillo Ortiz on 07-15-2024 Potassium [Moles/Vol] 3.7 mmol/L 3.3-5.1 [facility] RBC Auto (Bld) [#/Vol]Ordere d By: Castillo Ortiz on 07-15-2024 RBC (Bld) [#/Vol] 4.52 10*6/uL Low 4.6-6.2 [facility] Serum creatinine measurement (mass/volume)Ordered By: Castillo Ortiz on 07-15-2024 Creatinine [Mass/Vol] 0.68 mg/dL Low 0.70-1.20 [facility] Serum glucose measurement (m ass/volume)Ordered By: Castillo Ortiz on 07-15-2024 Glucose [Mass/Vol] 92 mg/dL 70-99 [facility] Serum or plasma calcium vinicio urement (mass/volume)Ordered By: Castillo Ortiz on 07-15-2024 Calcium [Mass/Vol] 9.5 mg/dL 7.6-11.0 [facility] Serum or plasma urea nitroge n measurement (mass/volume)Ordered By: Castillo Ortiz on 07-15-2024 Urea nitrogen [Mass/Vol] 20 mg/dL High 4-19 [facility] Sodium levelOrdered By: Castillo Ortiz on 07-15-2024 Sodium [Moles/Vol] 138 mmol/L 133-145 [facility] White blood cell (WBC) count Ordered By: Castillo Ortiz on 07-15-2024 WBC (Bld) [#/Vol] 10.7 10*3/uL 4.4-11.0 [facility] 29on 04-28-2024 29 Addended by: KATHY JACOME on: 04/28/2024 01:57 PM Modules accepted: Orders Normal [facility] Office Visiton 04-28-2024 Follow-up visit [id number] Crystal Gong 1940 M Date Provider Department Center 04/28/2024 9537-KATHY JACOME [facility] URO None Family History Problem Relation Age of Onset Heart failure Mother Diabetes Mother Family Status - Relation Status Age at Mother Level of Service:77989 [place] OFFICE/OUTPATIENT ESTABLISHED MOD MDM 30 MIN Reason for Visit and Comments: Follow-up [849541] - Hospital follow up for retention. Has schwartz in place, denies any issues since catheter placement Normal [facility] Progress Noteon 04-28-2024 Progress Note Kathy Jacome, MSN, VARNISH INSPECTOR, AGNP-C 04/28/2024 Urology Office Visit [facility] [address] [place] [address], [address] [facility] [id number] PATIENT NAME: Doroteo Gong DATE OF : [...] is wheelchair bound. Patient resides at the [facility]. 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 Had schwartz removed since and was voiding. Catheter replaced earlier in 2023 for retention. In a wheelchair for mobility. Cystoscopy next appointment. At [facility]. Catheter/voiding trial this appointment. 01/30/2023: Pau OV [...] and measures (more content not included)... Normal [facility] 36on 04-18-2024 36 Okay Normal [facility] PSA,Total - Annual Screenon 04-18-2024 PSA,TOT SCREEN 1.14 ng/mL Normal 0.00-4.00 [facility] Comment on above: Result Comment: This test was performed using the TPSA assay method for the [employer] chemistry system. Values obtained with different assay methods cannot be used interchangably. When changing PSA assays in the course of monitoring a patient, additional sequential testing should be carried out to confirm baseline values. Performed By: #### L 501.9910 #### [facility] [address] [place], [address] Screening prostate specific antigen (PSA) measurementOrdered By: Castillo Ortiz on 04-18-2024 Prostate Specific Antigen Screen 1.14 ng/mL 0.00-4.00 [facility] Comment on above: This test was perfor med using the TPSA assay method for the[employer] system. Values obtained with differentassay methods cannot be used interchangably.When changing PSA assays in the course of monitoring apatient, additional sequential testing should be carriedout to confirm baseline values. 36on 04-17-2024 36 Called Micheline back at [facility] ([phone]), this facility has assumed care over the patient after his dc from [facility]. Schwartz placed 04/04 for retention. Given address and apt date/time. Facility doc declined the void trail until pt has his follow up apt with our office. [facility] 36 Name of Caller: Nadya leach- [facility] Contact Reason for Appointment: Micheline is asking if the office wants her staff to do a voiding trial prior to pt's appt Office Name: Uro Medication Refills need, if any: NA Medication Name: NA [facility] [id number] 04-14-2024 [id number] Patient Choice Patient Name: DOROTEO GONG Date of : 1940 [facility] 30on 04-11-2024 30 Problem: Knowledge Deficit Goal: [...] Goal: Promote nutritional intake Outcome: Progressing Normal [facility] [id number] 04-11-2024 [id number] Next Site of Care Admission Date: 04/07/2024 04:42 AM Patient Name: DOROTEO GONG Location: [address] Date of : 1940 - Placement Information - Referral Type:Senior Living/SNF - Return Referral ID:[id number] Provider Name: Address 1: Phone Number: Address 2: Fax Number: City: Selection Factors: State: Referral Type:Senior Living/SNF - New Referral ID:[id number] Provider Name:[facility] [employer]. Address 1:[address] [facility] Address 2: City:[place] Selection Factors:Patient/Family Choice State:[facility] [phone] Discharge med list transmitted to [facility] via Careport per TCC request. 7000 was entered into [employer] for the SNF- Facility is aware [facility] [phone] Asked by [facility] to set transport to [facility]. The [employer] Vehicle you requested for Doroteo Mora in unit/room [facility] [id number] on 04/11/2024 is scheduled to arrive at 1:30pm EST! [employer] is handling this ride and you can contact them at . Pt, Friend Solange, nurse, unit sec, TCC, and facility informed of time. [facility] CBC W Auto Differential pane l (Bld)on 04-11-2024 Basophils (Bld) [#/Vol] 0 10*3/uL 0.0 - 0.2 10*3/uL [facility] Bas[facility]/100 WBC (Bld) 0.6 % 0.0 - 2.0 % [facility] Eosinophils (Bld) [#/Vol] 0.2 10*3/uL 0.0 - 0.5 10*3/uL [facility] Eosinophils/100 WBC (Bld) 2.7 % 0.0 - 6.0 % [facility] Erythrocyte distribution width (RBC) [Ratio] 14.9 % 11.5 - 15.0 % [facility] Hematocrit (Bld) [Volume fraction] 30.4 % Low 40.0 - 52.0 % [facility] Hemoglobin (Bld) [Mass/Vol] 9.9 g/dL Low 13.0 - 18.0 g/dL [facility] Immature granulocytes (Bld) [#/Vol] 0.1 10*3/uL High NINF - 0.1 10*3/uL [facility] Immature granulocytes/100 WBC (Bld) 1.4 % 0.0 - 2.0 % [facility] Interpretation and review of laboratory results Abnormal [facility] Lymphocytes (Bld) [#/Vol] 1.9 10*3/uL 1.0 - 4.3 10*3/uL [facility] Lymphocytes/100 WBC (Bld) 26.3 % 15.0 - 45.0 % [facility] MCH (RBC) [Entitic mass] 28.3 pg 26. 0 - 34.0 pg [facility] MCHC (RBC) [Mass/Vol] 32.6 % 30.5 - 36.0 % [facility] MCV (RBC) [Entitic vol] 86.9 fL 77.0 - 99.0 fL [facility] Monocytes (Bld) [#/Vol] 0.8 10*3/uL 0.0 - 0.9 10*3/uL [facility] Monocytes/100 WBC (Bld) 10.5 % 5.0 - 13.0 % [facility] Neutrophils (Bld) [#/Vol] 4.2 10*3/uL 1.8 - 7.5 10*3/uL [facility] Neutrophils/100 WBC (Bld) 58.5 % 38.0 - 82.0 % [facility] Nucleated RBC/100 WBC (Bld) [Ratio] 0 % [facility] [place] Platelet mean volume (Bld) [Entitic vol] 8.9 fL Low 9.0 - 12.7 fL [facility] Platelets (Bld) [#/Vol] 388 10*3/uL 140 - 440 10*3/uL [facility] RBC (Bld) [#/Vol] 3.5 10*6/uL Low 4.40 - 5.9 0 10*6/uL [facility] WBC (Bld) [#/Vol] 7.1 10*3/uL 3.6 - 10.7 10*3/uL [facility] CBC WITH AUTO DIFFERENTIALon 04-11-2024 Basophils (Bld) [#/Vol] 0.0 10*3/uL Normal 0.0-0.2 [facility] Comment on above: Performed By: #### L [id number] ####[employer] Operator: MAMTA BILLY ([id number])[facility] [place] (SBHLAB)[address] Basophils/100 WBC (Bld) 0.6 % Normal 0.0-2.0 [facility] Comment on above: Performed By: #### L [id number] ####[employer] Operator: MAMTA BILLY ([phone])[facility] [place] (SBHL[facility])[address] Eosinophils (Bld) [#/Vol] 0.2 10*3/uL Normal 0.0-0.5 [facility] Comment on above: Performed By: #### L [id number] ####[employer] Operator: MAMTA BILLY ([phone])[facility] [place] (SB[facility])[address] Eosinophils/100 WBC (Bld) 2.7 % Normal 0.0-6.0 [facility] Comment on above: Performed By: #### L [id number] ####[employer] Operator: MAMTA BILLY ([phone])[facility] [place] (SB[facility])[address] Erythrocyte distribution width (RBC) [Ratio] 14.9 % Normal 11.5-15.0 [facility] Comment on above: Performed By: #### L [id number] ####[employer] Operator: MAMTA BILLY ([id number])[facility] [place] ([facility])[address] Hematocrit (Bld) [Volume fraction] 30.4 % Low 40.0-52.0 [facility] Comment on above: Performed By: #### L [id number] ####[employer] Operator: MAMTA BILLY ([id number])[facility] [place] (SB[facility])[address] Hemoglobin (Bld) [Mass/Vol] 9.9 g/dL Low 13.0-18.0 [facility] Comment on above: Performed By: #### L [id number] ####[employer] Operator: MAMTA BILLY ([id number])[facility] ([facility])[address] IMMATURE GRANS % 1.4 % Normal 0.0-2.0 [facility] Comment on above: Performed By: #### L [id number] ####[employer] Operator: MAMTA BILLY ([id number])[facility] IMMATURE GRANS ABSOLUTE 0.1 10*3/uL High <0.1 [facility] Comment on above: Performed By: #### L [id number] ####[employer] Operator: MAMTA BILLY ([id number])[facility] (SBAB)[address] [place] [address] [place] Lymphocytes (Bld) [#/Vol] 1.9 10*3/uL Normal 1.0-4.3 [facility] Comment on above: Performed By: #### L [id number] ####[employer] Operator: MAMTA BILLY ([phone])[facility] (SBAB)[address] [place] [address] [place] Lymphocytes/100 WBC (Bld) 26.3 % Normal 15.0-45.0 [facility] Comment on above: Performed By: #### L [id number] ####[employer] Operator: MAMTA BILLY ([id number])[facility] (SBAB)[address] MCH (RBC) [Entitic mass] 28.3 pg Normal 26.0-34.0 [facility] Comment on above: Performed By: #### L [id number] ####[employer] Operator: MAMTA BILLY ([phone])[facility] [place] ([facility])[address] MCHC 32.6 % Normal 30.5-36.0 [facility] Comment on above: Performed By: #### L [id number] ####[employer] Operator: MAMTA BILLY ([id number])[facility] [place] ([facility])[address] MCV (RBC) [Entitic vol] 86.9 fL Normal 77.0-99.0 [facility] Comment on above: Performed By: #### L [id number] ####[employer] Operator: MAMTA BILLY ([id number])[facility] [place] ([facility])[address] Monocytes (Bld) [#/Vol] 0.8 10*3/uL Normal 0.0-0.9 [facility] Comment on above: Performed By: #### L [id number] ####[employer] Operator: MAMTA BILLY ([phone])[facility] [place] ([facility])[address] [place] [address] Monocytes/100 WBC (Bld) 10.5 % Normal 5.0-13.0 [facility] Comment on above: Performed By: #### L [id number] ####[employer] Operator: MAMTA BILLY ([phone])[facility] [place] ([facility])[address] [place] [address] NEUTROPHILS ABSOLUTE 4.2 10*3/uL Normal 1.8-7.5 [facility] Comment on above: Performed By: #### L [id number] ####[employer] Operator: MAMTA BILLY ([id number])[facility] [place] ([facility])[address] Neutrophils/100 WBC (Bld) 58.5 % Normal 38.0-82.0 [facility] Comment on above: Performed By: #### L [id number] ####[employer] Operator: MAMTA BILLY ([id number])[facility] [place] ([facility])[address] NRBC 0.0 /100 WBCs Normal 0.0-2.0 [facility] Comment on above: Performed By: #### L [id number] ####[employer] Operator: MAMTA BILLY ([id number])[facility] [place] ([facility])[address] Platelet mean volume (Bld) [Entitic vol] 8.9 fL Low 9.0-12.7 [facility] Comment on above: Performed By: #### L [id number] ####[employer] Operator: MAMTA BILLY ([id number])[facility] [place] ([facility])[address] Platelets (Bld) [#/Vol] 388 10*3/uL Normal 140-440 [facility] Comment on above: Performed By: #### L [id number] ####[employer] Operator: MAMTA BILLY ([id number])[facility] [place] ([facility])[address] RBC (Bld) [#/Vol] 3.50 10*6/uL Low 4.40-5.90 [facility] Comment on above: Performed By: #### L [id number] ####[employer] Operator: MAMTA BILLY ([id number])[facility] [place] ([facility])[address] [place] [address] WBC (Bld) [#/Vol] 7.1 10*3/uL Normal 3.6-10.7 [facility] Comment on above: Performed By: #### L [id number] ####[employer] Operator: MAMTA BILLY ([phone])[facility] [place] ([facility])[address] COMPREHENSIVE METABOLIC PANE Khris 04-11-2024 Albumin [Mass/Vol] 1.5 g/dL Low 3.4-4.8 [facility] Comment on above: Performed By: #### L AB17 ####[employer] Operator: MAMTA BILLY ([phone])[facility] [place] ([facility])[address] ALP [Catalytic activity/Vol] 53 U/L Normal 40-150 [facility] Comment on above: Performed By: #### L AB17 ####[employer] Operator: MAMTA ALBARRANDEBRA ([id number])[facility] [place] ([facility])[address] ALT [Catalytic activity/Vol] 6 U/L Normal <40 [facility] Comment on above: Performed By: #### L AB17 ####[employer] Operator: MAMTA RAECER ([id number])[facility] [place] ([facility])[address] Anion gap [Moles/Vol] 10 mmol/L Normal 3-13 [facility] Comment on above: Performed By: #### L AB17 ####[employer] Operator: MAMTA BILLY ([id number])[facility] [place] ([facility])[address] AST [Catalytic activity/Vol] 25 U/L Normal <34 [facility] Comment on above: Performed By: #### L AB17 ####[employer] Operator: MAMTA ALBARRANDEBRA ([id number])[facility] [place] ([facility])[address] Bilirubin [Mass/Vol] 0.3 mg/dL Normal <1.2 [facility] Comment on above: Performed By: #### L AB17 ####[employer] Operator: MAMTA BILLY ([id number])[facility] [place] ([facility])[address] Calcium [Mass/Vol] 6.5 mg/dL Low 8.8-10.0 [facility] Comment on above: Performed By: #### L AB17 ####[employer] Operator: MAMTA BILLY ([id number])[facility] [place] ([facility])[address] [place] [address] [place] Chloride [Moles/Vol] 114 mmol/L High 98-107 [facility] Comment on above: Performed By: #### L AB17 ####[employer] Operator: MAMTA BILLY ([id number])[facility] ([facility])[address] CO2 [Moles/Vol] 20 mmol/L Low 23-31 [facility] Comment on above: Performed By: #### L AB17 ####[employer] Operator: MAMTA BILLY ([id number])[facility] (HLAB)[address] Creatinine [Mass/Vol] 0.52 mg/dL Low 0.72-1.25 [facility] Comment on above: Performed By: #### L AB17 ####[employer] Operator: MAMTA BILLY ([id number])[facility] ([facility])[address] GLOMERULAR FILTRATION RATE ML/MIN/1.73 SQ M.PREDICTED >90.0 Normal >60.0 [facility] Comment on above: Result Comment: Calc ulation based on the Chronic Kidney Disease Epidemiology Collaboration (CKD-EPI) equation refit without adjustment for race Performed By: #### L AB17 ####[employer] Operator: MAMTA BILLY ([id number])[facility] (HL[facility])[address] Glucose [Mass/Vol] 77 mg/dL Low 82-115 [facility] Comment on above: Performed By: #### L AB17 ####[employer] Operator: MAMTA BILLY ([phone])[facility] [place] [address] [place] Potassium [Moles/Vol] 2.8 mmol/L Low 3.5-5.1 [facility] Comment on above: Result Comment: [facility] potassium values may be up to 0.5 mmol/L lower than serum values. Performed By: #### L AB17 ####[employer] Operator: MAMTA BILLY ([id number])[facility] [place] (SB[facility])[address] Protein [Mass/Vol] 4.2 g/dL Low 6.4-8.3 [facility] Comment on above: Performed By: #### L [id number] ####Box Press Operator: MAMTA BILLY ([phone])[facility] [place] (SBHLAB)[address] Sodium [Moles/Vol] 144 mmol/L Normal 136-145 [facility] Comment on above: Performed By: #### L [id number] ####Box Press Operator: MAMTA MARIAJOSE ([phone])[facility] [place] (SBHLAB)[address] Urea nitrogen [Mass/Vol] 7 mg/dL Low 9-23 [facility] Comment on above: Performed By: #### L [id number] ####Box Press Operator: MAMTA MARIAJOSE ([phone])[facility]ITALJak ATKINSCARRIE TINGLEY HOSPITALN (SBHLAB)[address] Comprehensive metabolic 1998 panelon 04-11-2024 Albumin [Mass/Vol] 1.5 g/dL Low 3.4 - 4.8 g/dL [facility] ALP [Catalytic activity/Vol] 53 U/L 40 - 150 U/L [facility] ALT [Catalytic activity/Vol] 6 U/L NINF - 40 U/L [facility] Anion gap [Moles/Vol] 10 mmol/L 3 - 13 mmol/L [facility] AST [Catalytic activity/Vol] 25 U/L NINF - 34 U/L [facility] Bilirubin [Mass/Vol] 0.3 mg/dL NINF - 1.2 mg/dL [facility] Calcium [Mass/Vol] 6.5 mg/dL Low 8.8 - 10. 0 mg/dL [facility] Chloride [Moles/Vol] 114 mmol/L High 98 - 10 7 mmol/L [facility] CO2 [Moles/Vol] 20 mmol/L Low 23 - 31 mmol/L [facility] Creatinine [Mass/Vol] 0.52 mg/dL Low 0.72 - 1.25 mg/dL [facility] GFR/1.73 sq M.predicted (S/P/Bld) [Vol rate/Area] - PINF [facility] Comment on above: Calculation based on the Chronic Kidney Disease Epidemiology Collaboration (CKD-EPI) equation refit without adjustment for race Glucose [Mass/Vol] 77 mg/dL Low 82 - 115 mg/dL [facility] Interpretation and review of laboratory results Abnormal [facility] Potassium [Moles/Vol] 2.8 mmol/L Low 3.5 - 5.1 mmol/L [facility] Comment on above: Plasma potassium mera ues may be up to 0.5 mmol/L lower than serum values. Protein [Mass/Vol] 4.2 g/dL Low 6.4 - 8.3 g/dL [facility] Sodium [Moles/Vol] 144 mmol/L 136 - 145 mmol/L [facility] Urea nitrogen [Mass/Vol] 7 mg/dL Low 9 - 23 mg/dL [facility] Nursing Noteon 04-11-2024 Nursing Note Report given to Bishop sultana at [facility]. Normal [facility] Progress Noteon 04-11-2024 Progress Note OCCUPATIONAL THERAPY [facility] Treatment Note Name/MRN: Doroteo Gong ([id number]) Date of : 1940 Age: 83 y.o. Room/Bed: B4461/B4461 A Visit #: 1 out of 7 visits Discharge Recommendation: [facility]dc Facility Equipment Needed: No Prior Level of [...] 13 Minutes (1 THER ACT) EMY Huerta/Louisa [facility] Progress Note Speech-Language Pathology SPEECH LANGUAGE PATHOLOGY [facility] Patient Name: Doroteo Gong Evaluation Date: 04/11/2024 Date of : 1940 Admission Date: 04/07/2024 4:42 AM Age: 83 y.o. [facility] A Subjective Patient alert and cooperative. Seen [...] Ensure Plus 04/09/24 1226 04/09/24 1227 Supplement:Dinner; [facility] Until discontinued Question Answer Comment Frequency Dinner Select supplement: [facility] Ensure Plus 04/09/24 1226 04/09/24 1150 Adult [...] Start: 04/09/24 Expected End: 04/23/24 Therapy Time AZURE DEVELOPER Individual Minutes Time In: 0735 Time Out: 0755 Minutes: 20 JUICE Fowler Normal [facility] 30on 04-10-2024 30 Problem: Knowledge Deficit [...] Goal: Promote nutritional intake Outcome: Progressing Normal [facility] CBC W Auto Differential pane l (Bld)on 04-10-2024 Basophils (Bld) [#/Vol] 0 10*3/uL 0.0 - 0.2 10*3/uL [facility] Basophils/100 WBC (Bld) 0.4 % 0.0 - 2.0 % [facility] Eosinophils (Bld) [#/Vol] 0.2 10*3/uL 0.0 - 0.5 10*3/uL [facility] Eosinophils/100 WBC (Bld) 2.5 % 0.0 - 6.0 % [facility] Erythrocyte distribution width (RBC) [Ratio] 14.6 % 11.5 - 15.0 % [facility] Hematocrit (Bld) [Volume fraction] 32 % Low 40.0 - 52.0 % [facility] Hemoglobin (Bld) [Mass/Vol] 10.5 g/dL Low 13.0 - 18.0 g/dL [facility] Immature granulocytes (Bld) [#/Vol] 0.1 10*3/uL High NINF - 0.1 10*3/uL [facility] [place] Immature granulocytes/100 WBC (Bld) 1.1 % 0.0 - 2.0 % [facility] Interpretation and review of laboratory results Abnormal [facility] Lymphocytes (Bld) [#/Vol] 1.4 10*3/uL 1.0 - 4.3 10*3/uL [facility] Lymphocytes/100 WBC (Bld) 16.1 % 15.0 - 45.0 % [facility] MCH (RBC) [Entitic mass] 28.5 pg 26. 0 - 34.0 pg [facility] MCHC (RBC) [Mass/Vol] 32.8 % 30.5 - 36.0 % [facility] MCV (RBC) [Entitic vol] 87 fL 77.0 - 99.0 fL [facility] Monocytes (Bld) [#/Vol] 0.9 10*3/uL 0.0 - 0.9 10*3/uL [facility] Monocytes/100 WBC (Bld) 10.4 % 5.0 - 13.0 % [facility] Neutrophils (Bld) [#/Vol] 6.2 10*3/uL 1.8 - 7.5 10*3/uL [facility] Neutrophils/100 WBC (Bld) 69.5 % 38.0 - 82.0 % [facility] Nucleated RBC/100 WBC (Bld) [Ratio] 0 % [facility] Platelet mean volume (Bld) [Entitic vol] 9 fL 9.0 - 12.7 fL [facility] Platelets (Bld) [#/Vol] 429 10*3/uL 140 - 440 10*3/uL [facility] RBC (Bld) [#/Vol] 3.68 10*6/uL Low 4.40 - 5.9 0 10*6/uL [facility] WBC (Bld) [#/Vol] 8.9 10*3/uL 3.6 - 10.7 10*3/uL [facility] CBC WITH AUTO DIFFERENTIALon 04-10-2024 Basophils (Bld) [#/Vol] 0.0 10*3/uL Normal 0.0-0.2 [facility] Comment on above: Performed By: #### L [id number] ####Box Press Operator: MAMTA BILLY ([phone])[facility] ([facility])[address] [place] [address] Basophils/100 WBC (Bld) 0.4 % Normal 0.0-2.0 [facility] Comment on above: Performed By: #### L [id number] ####Box Press Operator: MAMTA BILLY ([phone])[facility] [place] (SBHLAB)[address] Eosinophils (Bld) [#/Vol] 0.2 10*3/uL Normal 0.0-0.5 [facility] Comment on above: Performed By: #### L [id number] ####Box Press Operator: MAMTA ALBARRANDEBRA ([phone])[facility]A BARBCARRIE [facility]N (SBAB)[address] Eosinophils/100 WBC (Bld) 2.5 % Normal 0.0-6.0 [facility] Comment on above: Performed By: #### L [id number] ####Box Press Operator: MAMTA ALBARRANDEBRA ([id number])[facility] [place] ([facility])[address] Erythrocyte distribution width (RBC) [Ratio] 14.6 % Normal 11.5-15.0 [facility] Comment on above: Performed By: #### L [id number] ####Box Press Operator: MAMTA ALBARRANDEBRA ([phone])[facility] ([facility])[address] Hematocrit (Bld) [Volume fraction] 32.0 % Low 40.0-52.0 [facility] Comment on above: Performed By: #### L [id number] ####Box Press Operator: MAMTA BILLY ([phone])[facility]A [facility]BCARRI[facility]ITALN ([facility])[address] Hemoglobin (Bld) [Mass/Vol] 10.5 g/dL Low 13.0-18.0 [facility] Comment on above: Performed By: #### L [id number] ####Box Press Operator: MAMTA BILLY ([phone])[facility]BCARRI[facility]N ([facility])[address] IMMATURE GRANS % 1.1 % Normal 0.0-2.0 [facility] Comment on above: Performed By: #### L [id number] ####Box Press Operator: MAMTA BILLY ([phone])MIGUELINA ATKINSEDWARDO (SBHLAB)[address] IMMATURE GRANS ABSOLUTE 0.1 10*3/uL High <0.1 [facility] Comment on above: Performed By: #### L [id number] ####Box Press Operator: MAMTA BILLY ([phone])[facility]ITALJak ATKINSEDWARDO (SBHLAB)[address] Lymphocytes (Bld) [#/Vol] 1.4 10*3/uL Normal 1.0-4.3 [facility] Comment on above: Performed By: #### L [id number] ####Box Press Operator: MAMTA BILLY ([phone])[facility]ITALJak ALDANAKarl (SBHLAB)[address] Lymphocytes/100 WBC (Bld) 16.1 % Normal 15.0-45.0 [facility] Comment on above: Performed By: #### L [id number] ####Box Press Operator: MAMTA BILLY ([phone])[facility]ITALJak ALDANAKarl (SBHLAB)[address] MCH (RBC) [Entitic mass] 28.5 pg Normal 26.0-34.0 [facility] Comment on above: Performed By: #### L [id number] ####Box Press Operator: MAMTA BILLY ([phone])[facility]ITALJak ATKINSEDWARDO (SBHLAB)[address] MCHC 32.8 % Normal 30.5-36.0 [facility] Comment on above: Performed By: #### L [id number] ####Box Press Operator: MAMTA BILLY ([phone])[facility]ITALJak ATKINSEDWARDO (SBHLAB)[address] MCV (RBC) [Entitic vol] 87.0 fL Normal 77.0-99.0 [facility] Comment on above: Performed By: #### L [id number] ####Box Press Operator: MAMTA BILLY ([phone])[facility] [place] (SBHLAB)[address] Monocytes (Bld) [#/Vol] 0.9 10*3/uL Normal 0.0-0.9 [facility] Comment on above: Performed By: #### L [id number] ####Box Press Operator: MAMTA BILLY ([phone])[facility] [place] (SBHLAB)[address] Monocytes/100 WBC (Bld) 10.4 % Normal 5.0-13.0 [facility] Comment on above: Performed By: #### L [id number] ####Box Press Operator: MAMTA BILLY ([phone])[facility] [place] (SBHLAB)[address] NEUTROPHILS ABSOLUTE 6.2 10*3/uL Normal 1.8-7.5 [facility] Comment on above: Performed By: #### L [id number] ####Box Press Operator: MAMTA BILLY ([phone])[facility] [place] (SBHLAB)[address] Neutrophils/100 WBC (Bld) 69.5 % Normal 38.0-82.0 [facility] Comment on above: Performed By: #### L [id number] ####Box Press Operator: MAMTA BILLY ([phone])[facility] [place] (SBHLAB)[address] NRBC 0.0 /100 WBCs Normal 0.0-2.0 [facility] Comment on above: Performed By: #### L [id number] ####Box Press Operator: MAMTA BILLY ([phone])[facility] [place] (SBHLAB)[address] Platelet mean volume (Bld) [Entitic vol] 9.0 fL Normal 9.0-12.7 [facility] Comment on above: Performed By: #### L [id number] ####Box Press Operator: MAMTA BILLY ([phone])[facility] [place] (SBHLAB)[address] Platelets (Bld) [#/Vol] 429 10*3/uL Normal 140-440 [facility] Comment on above: Performed By: #### L [id number] ####Box Press Operator: MAMTA BILLY ([phone])[facility] [place] (SBHLAB)[address] RBC (Bld) [#/Vol] 3.68 10*6/uL Low 4.40-5.90 [facility] Comment on above: Performed By: #### L [id number] ####Box Press Operator: MAMTA BILLY ([phone])[facility] [place] (SBHLAB)[address] WBC (Bld) [#/Vol] 8.9 10*3/uL Normal 3.6-10.7 [facility] Comment on above: Performed By: #### L [id number] ####Box Press Operator: MAMTA BILLY ([phone])[facility]A MILLYCARRIE TINGLEY HOSPITALN (SBHLAB)[address] COMPREHENSIVE METABOLIC PANE Khris 04-10-2024 Albumin [Mass/Vol] 1.8 g/dL Low 3.4-4.8 [facility] Comment on above: Performed By: #### L [id number] ####Box Press Operator: MAMTA BILLY ([phone])[facility] [place] (SBHLAB)[address] ALP [Catalytic activity/Vol] 65 U/L Normal 40-150 [facility] Comment on above: Performed By: #### L [id number] ####Box Press Operator: MAMTA BILLY ([phone])[facility] [place] (SBHLAB)[address] ALT [Catalytic activity/Vol] 10 U/L Normal <40 [facility] Comment on above: Performed By: #### L [id number] ####Box Press Operator: MAMTA BILLY ([phone])[facility] [place] (SBHLAB)[address] Anion gap [Moles/Vol] 4 mmol/L Normal 3-13 [facility] Comment on above: Performed By: #### L [id number] ####Box Press Operator: MAMTA BILLY ([phone])[facility] [place] (SBHLAB)[address] AST [Catalytic activity/Vol] 31 U/L Normal <34 [facility] Comment on above: Performed By: #### L [id number] ####Box Press Operator: MAMTA BILLY ([phone])[facility] [place] (SBHLAB)[address] Bilirubin [Mass/Vol] 0.2 mg/dL Normal <1.2 [facility] Comment on above: Performed By: #### L [id number] ####Box Press Operator: MAMTA BILLY ([phone])[facility] [place] (SBHLAB)[address] Calcium [Mass/Vol] 7.9 mg/dL Low 8.8-10.0 [facility] Comment on above: Performed By: #### L [id number] ####Box Press Operator: MAMTA BILLY ([phone])[facility] [place] (SBHLAB)[address] Chloride [Moles/Vol] 111 mmol/L High 98-107 [facility] Comment on above: Performed By: #### L [id number] ####Box Press Operator: MAMTA BILLY ([phone])[facility] [place] (SBHLAB)[address] [place] [address] [place] CO2 [Moles/Vol] 23 mmol/L Normal 23-31 [facility] Comment on above: Performed By: #### L [id number] ####Box Press Operator: MAMTA BILLY ([phone])[facility] [place] (SBHLAB)[address] Creatinine [Mass/Vol] 0.62 mg/dL Low 0.72-1.25 [facility] Comment on above: Performed By: #### L [id number] ####Box Press Operator: MAMTA BILLY ([phone])[facility] ([facility])[address] [place] [address] GLOMERULAR FILTRATION RATE ML/MIN/1.73 SQ M.PREDICTED >90.0 Normal >60.0 [facility] Comment on above: Result Comment: Calc ulation based on the Chronic Kidney Disease Epidemiology Collaboration (CKD-EPI) equation refit without adjustment for race Performed By: #### L [id number] ####Box Press Operator: MAMTA BILLY ([phone])[facility] ([facility])[address] [place] [address] Glucose [Mass/Vol] 96 mg/dL Normal 82-115 [facility] Comment on above: Performed By: #### L [id number] ####Box Press Operator: MAMTA BILLY ([phone])[facility] ([facility])[address] [place] [address] Potassium [Moles/Vol] 3.7 mmol/L Normal 3.5-5.1 [facility] Comment on above: Result Comment: [facility] potassium values may be up to 0.5 mmol/L lower than serum values. Performed By: #### L [id number] ####Box Press Operator: MAMTA BILLY ([phone])[facility])[address] [place] [address] Protein [Mass/Vol] 4.5 g/dL Low 6.4-8.3 [facility] Comment on above: Performed By: #### L [id number] ####Box Press Operator: MAMTA BILLY ([phone])[facility])[address] [place] [address] Sodium [Moles/Vol] 138 mmol/L Normal 136-145 [facility] Comment on above: Performed By: #### L [id number] ####Box Press Operator: MAMTA BILLY ([phone])[facility] (SBHLAB)[address] Urea nitrogen [Mass/Vol] 8 mg/dL Low 9-23 [facility] Comment on above: Performed By: #### L [id number] ####Box Press Operator: MAMTA BILLY ([phone])[facility] [place] (SBHLAB)[address] Comprehensive metabolic 1998 panelon 04-10-2024 Albumin [Mass/Vol] 1.8 g/dL Low 3.4 - 4.8 g/dL [facility] ALP [Catalytic activity/Vol] 65 U/L 40 - 150 U/L [facility] ALT [Catalytic activity/Vol] 10 U/L NINF - 40 U/L [facility] Anion gap [Moles/Vol] 4 mmol/L 3 - 13 mmol/L [facility] AST [Catalytic activity/Vol] 31 U/L NINF - 34 U/L [facility] Bilirubin [Mass/Vol] 0.2 mg/dL NINF - 1.2 mg/dL [facility] Calcium [Mass/Vol] 7.9 mg/dL Low 8.8 - 10. 0 mg/dL [facility] Chloride [Moles/Vol] 111 mmol/L High 98 - 10 7 mmol/L [facility] CO2 [Moles/Vol] 23 mmol/L 23 - 31 mmol/L [facility] Creatinine [Mass/Vol] 0.62 mg/dL Low 0.72 - 1.25 mg/dL [facility] GFR/1.73 sq M.predicted (S/P/Bld) [Vol rate/Area] - PINF [facility] Comment on above: Calculation based on the Chronic Kidney Disease Epidemiology Collaboration (CKD-EPI) equation refit without adjustment for race Glucose [Mass/Vol] 96 mg/dL 82 - 115 mg/dL [facility] Interpretation and review of laboratory results Abnormal [facility] Potassium [Moles/Vol] 3.7 mmol/L 3.5 - 5.1 mmol/L [facility] Comment on above: Plasma potassium mera ues may be up to 0.5 mmol/L lower than serum values. Protein [Mass/Vol] 4.5 g/dL Low 6.4 - 8.3 g/dL [facility] Sodium [Moles/Vol] 138 mmol/L 136 - 145 mmol/L [facility] Urea nitrogen [Mass/Vol] 8 mg/dL Low 9 - 23 mg/dL [facility] Nursing Noteon 04-10-2024 Nursing Note Via secure chat, rep eat urine culture is not needed. Normal [facility] Progress Noteon 04-10-2024 Progress Note Speech-Language Pathology SPEECH LANGUAGE PATHOLOGY [facility] Patient Name: Doroteo Gong Evaluation Date: 04/10/2024 Date of : 1940 Admission Date: 04/07/2024 4:42 AM Age: 83 y.o. [facility] A Subjective Patient alert and not cooperative. [...] Ensure Plus 04/09/24 1226 04/09/24 1227 Supplement:Dinner; [facility] Plus Until discontinued Question Answer Comment Frequency Dinner Select supplement: [facility] Ensure Plus 04/09/24 1226 04/09/24 1150 Adult [...] trials if dentures are available. Continue acute AZURE DEVELOPER therapy per initial plan of care and [...] Start: 04/09/24 Expected End: 04/23/24 Therapy Time AZURE DEVELOPER Individual Minutes Time In: 1410 Time Out: 1419 Minutes: 9 Izzy Chavez, AZURE DEVELOPER Normal [facility] Bacteria identified Cx Nom ( U)Ordered By: Jaclyn Swanson on 04-09-2024 Interpretation and review of laboratory results Normal [facility] CBC W Auto Differential pane l (Bld)on 04-09-2024 Basophils (Bld) [#/Vol] 0 10*3/uL 0.0 - 0.2 10*3/uL [facility] Basophils/100 WBC (Bld) 0.2 % 0.0 - 2.0 % [facility] Eosinophils (Bld) [#/Vol] 0.1 10*3/uL 0.0 - 0.5 10*3/uL [facility] Eosinophils/100 WBC (Bld) 1.3 % 0.0 - 6.0 % [facility] Erythrocyte distribution width (RBC) [Ratio] 14.4 % 11.5 - 15.0 % [facility] Hematocrit (Bld) [Volume fraction] 32.4 % Low 40.0 - 52.0 % [facility] Hemoglobin (Bld) [Mass/Vol] 10.6 g/dL Low 13.0 - 18.0 g/dL [facility] [place] Immature granulocytes (Bld) [#/Vol] 0.1 10*3/uL High NINF - 0.1 10*3/uL [facility] Immature granulocytes/100 WBC (Bld) 0.8 % 0.0 - 2.0 % [facility] Interpretation and review of laboratory results Abnormal [facility] Lymphocytes (Bld) [#/Vol] 1.4 10*3/uL 1.0 - 4.3 10*3/uL [facility] Lymphocytes/100 WBC (Bld) 14.6 % Low 15.0 - 45.0 % [facility] MCH (RBC) [Entitic mass] 28.5 pg 26. 0 - 34.0 pg [facility] MCHC (RBC) [Mass/Vol] 32.7 % 30.5 - 36.0 % [facility] MCV (RBC) [Entitic vol] 87.1 fL 77.0 - 99.0 fL [facility] Monocytes (Bld) [#/Vol] 0.9 10*3/uL 0.0 - 0.9 10*3/uL [facility] Monocytes/100 WBC (Bld) 9.2 % 5.0 - 13.0 % [facility] Neutrophils (Bld) [#/Vol] 7.2 10*3/uL 1.8 - 7.5 10*3/uL [facility] Neutrophils/100 WBC (Bld) 73.9 % 38.0 - 82.0 % [facility] Nucleated RBC/100 WBC (Bld) [Ratio] 0 % [facility] Platelet mean volume (Bld) [Entitic vol] 9 fL 9.0 - 12.7 fL [facility] Platelets (Bld) [#/Vol] 447 10*3/uL High 140 - 440 10*3/uL [facility] RBC (Bld) [#/Vol] 3.72 10*6/uL Low 4.40 - 5.9 0 10*6/uL [facility] WBC (Bld) [#/Vol] 9.7 10*3/uL 3.6 - 10.7 10*3/uL [facility] CBC WITH AUTO DIFFERENTIALon 04-09-2024 Basophils (Bld) [#/Vol] 0.0 10*3/uL Normal 0.0-0.2 [facility] [facility] Comment on above: Performed By: #### L [id number] ####Box Press Operator: MAMTA BILLY ([phone])[facility] [place] (SBHLAB)[address] Basophils/100 WBC (Bld) 0.2 % Normal 0.0-2.0 [facility] Comment on above: Performed By: #### L [id number] ####Box Press Operator: MAMTA BILLY ([id number])[facility] [place] (SBHLAB)[address] Eosinophils (Bld) [#/Vol] 0.1 10*3/uL Normal 0.0-0.5 [facility] Comment on above: Performed By: #### L [id number] ####Box Press Operator: MAMTA ALBARRANDEBRA ([id number])[facility] [place] (SBHLAB)[address] Eosinophils/100 WBC (Bld) 1.3 % Normal 0.0-6.0 [facility] Comment on above: Performed By: #### L [id number] ####Box Press Operator: MAMTA BILLY ([id number])[facility] [place] (SBHLAB)[address] [place] [address] Erythrocyte distribution width (RBC) [Ratio] 14.4 % Normal 11.5-15.0 [facility] Comment on above: Performed By: #### L [id number] ####Box Press Operator: MAMTA BILLY ([id number])[facility] [place] (SBHLAB)[address] [place] [address] Hematocrit (Bld) [Volume fraction] 32.4 % Low 40.0-52.0 [facility] Comment on above: Performed By: #### L [id number] ####Box Press Operator: MAMTA BILLY ([id number])[facility] [place] (SBHLAB)[address] [place] [address] Hemoglobin (Bld) [Mass/Vol] 10.6 g/dL Low 13.0-18.0 [facility] Comment on above: Performed By: #### L [id number] ####Box Press Operator: MAMTA BILLY ([phone])[facility] [place] (SBHLAB)[address] IMMATURE GRANS % 0.8 % Normal 0.0-2.0 [facility] Comment on above: Performed By: #### L [id number] ####Box Press Operator: MAMTA BILLY ([phone])[facility] [place] (SBHLAB)[address] IMMATURE GRANS ABSOLUTE 0.1 10*3/uL High <0.1 [facility] Comment on above: Performed By: #### L [id number] ####Box Press Operator: MAMTA BILLY ([phone])[facility] [place] (SBHLAB)[address] Lymphocytes (Bld) [#/Vol] 1.4 10*3/uL Normal 1.0-4.3 [facility] Comment on above: Performed By: #### L [id number] ####Box Press Operator: MAMTA BILLY ([id number])[facility] [place] (SBHLAB)[address] Lymphocytes/100 WBC (Bld) 14.6 % Low 15.0-45.0 [facility] Comment on above: Performed By: #### L [id number] ####Box Press Operator: MAMTA BILLY ([phone])[facility] [place] (SBHLAB)[address] MCH (RBC) [Entitic mass] 28.5 pg Normal 26.0-34.0 [facility] Comment on above: Performed By: #### L [id number] ####Box Press Operator: MAMTA BILLY ([phone])[facility] [place] (SBHLAB)[address] MCHC 32.7 % Normal 30.5-36.0 [facility] Comment on above: Performed By: #### L [id number] ####Box Press Operator: MAMTA BILLY ([phone])[facility] [place] (SBHLAB)[address] MCV (RBC) [Entitic vol] 87.1 fL Normal 77.0-99.0 [facility] Comment on above: Performed By: #### L [id number] ####Box Press Operator: MAMTA BILLY ([phone])[facility] [place] (SBHLAB)[address] Monocytes (Bld) [#/Vol] 0.9 10*3/uL Normal 0.0-0.9 [facility] Comment on above: Performed By: #### L [id number] ####Box Press Operator: MAMTA BILLY ([id number])[facility] [place] (SBHLAB)[address] Monocytes/100 WBC (Bld) 9.2 % Normal 5.0-13.0 [facility] Comment on above: Performed By: #### L [id number] ####Box Press Operator: MAMTA BILLY ([phone])[facility] [place] (SBHLAB)[address] NEUTROPHILS ABSOLUTE 7.2 10*3/uL Normal 1.8-7.5 [facility] Comment on above: Performed By: #### L [id number] ####Box Press Operator: MAMTA BILLY ([id number])[facility] [place] (SBHLAB)[address] Neutrophils/100 WBC (Bld) 73.9 % Normal 38.0-82.0 [facility] Comment on above: Performed By: #### L [id number] ####Box Press Operator: MAMTA BILLY ([phone])[facility] [place] (SBHLAB)[address] NRBC 0.0 /100 WBCs Normal 0.0-2.0 [facility] Comment on above: Performed By: #### L [id number] ####Box Press Operator: MAMTA BILLY ([phone])[facility] [place] (SBHLAB)[address] Platelet mean volume (Bld) [Entitic vol] 9.0 fL Normal 9.0-12.7 [facility] Comment on above: Performed By: #### L [id number] ####Box Press Operator: MAMTA BILLY ([id number])[facility] [place] (SBHLAB)[address] Platelets (Bld) [#/Vol] 447 10*3/uL High 140-440 [facility] Comment on above: Performed By: #### L [id number] ####Box Press Operator: MAMTA BILLY ([phone])[facility] [place] (SBHLAB)[address] RBC (Bld) [#/Vol] 3.72 10*6/uL Low 4.40-5.90 [facility] Comment on above: Performed By: #### L [id number] ####Box Press Operator: MAMTA BILLY ([phone])[facility] [place] (SBHLAB)[address] WBC (Bld) [#/Vol] 9.7 10*3/uL Normal 3.6-10.7 [facility] Comment on above: Performed By: #### L [id number] ####Box Press Operator: MAMTA BILLY ([phone])[facility] [place] (SBHLAB)[address] COMPREHENSIVE METABOLIC PANE Khris 04-09-2024 Albumin [Mass/Vol] 2.0 g/dL Low 3.4-4.8 [facility] Comment on above: Performed By: #### L [id number] ####Box Press Operator: MAMTA BILLY ([phone])[facility] [place] (SBHLAB)[address] ALP [Catalytic activity/Vol] 76 U/L Normal 40-150 [facility] Comment on above: Performed By: #### L AB17 ####Box Press Operator: MAMTA BILLY ([id number])[facility] [place] (SBHLAB)[address] ALT [Catalytic activity/Vol] 10 U/L Normal <40 [facility] Comment on above: Performed By: #### L AB17 ####Box Press Operator: MAMTA BILLY ([id number])[facility] [place] (SBHLAB)[address] Anion gap [Moles/Vol] 6 mmol/L Normal 3-13 [facility] Comment on above: Performed By: #### L AB17 ####Box Press Operator: MAMTA BILLY ([id number])[facility] (SBHLAB)[address] AST [Catalytic activity/Vol] 31 U/L Normal <34 [facility] Comment on above: Performed By: #### L AB17 ####Box Press Operator: MAMTA BILLY ([id number])[facility] [place] (SBHLAB)[address] Bilirubin [Mass/Vol] 0.2 mg/dL Normal <1.2 [facility] Comment on above: Performed By: #### L AB17 ####Box Press Operator: MAMTA BILLY ([phone])[facility] (SBHLAB)[address] Calcium [Mass/Vol] 8.0 mg/dL Low 8.8-10.0 [facility] Comment on above: Performed By: #### L AB17 ####Box Press Operator: MAMTA BILLY ([id number])[facility] ([facility] Chloride [Moles/Vol] 107 mmol/L Normal 98-107 [facility] Comment on above: Performed By: #### L AB17 ####Box Press Operator: MAMTA BILLY ([id number])[facility] [place] (SBHLAB)[address] CO2 [Moles/Vol] 22 mmol/L Low 23-31 [facility] Comment on above: Performed By: #### L [id number] ####Box Press Operator: MAMTA BILLY ([id number])[facility] [place] (SBHLAB)[address] Creatinine [Mass/Vol] 0.67 mg/dL Low 0.72-1.25 [facility] Comment on above: Performed By: #### L AB17 ####Box Press Operator: MAMTA BILLY ([phone])[facility] (SBHLAB)[address] GLOMERULAR FILTRATION RATE ML/MIN/1.73 SQ M.PREDICTED >90.0 Normal >60.0 [facility] Comment on above: Result Comment: Calc ulation based on the Chronic Kidney Disease Epidemiology Collaboration (CKD-EPI) equation refit without adjustment for race Performed By: #### L [id number] ####Box Press Operator: MAMTA BILLY ([id number])[facility] (SBHLAB)[address] Glucose [Mass/Vol] 108 mg/dL Normal 82-115 [facility] Comment on above: Performed By: #### L AB17 ####Box Press Operator: MAMTA BILLY ([id number])[facility]BC[facility] (SBHLAB)[address] Potassium [Moles/Vol] 3.2 mmol/L Low 3.5-5.1 [facility] Comment on above: Result Comment: [facility] potassium values may be up to 0.5 mmol/L lower than serum values. Performed By: #### L AB17 ####Box Press Operator: MAMTA BILLY ([id number])[facility]ITALJak ATKINSCARRIE TINGLEY HOSPITALN (SBHLAB)[address] Protein [Mass/Vol] 4.9 g/dL Low 6.4-8.3 [facility] Comment on above: Performed By: #### L AB17 ####Box Press Operator: MMATA BILLY ([phone])[facility]ITALJak ALDANA (SBHLAB)[address] Sodium [Moles/Vol] 135 mmol/L Low 136-145 [facility] Comment on above: Performed By: #### L AB17 ####Box Press Operator: MAMTA BILLY ([phone])[facility] (SBHLAB)[address] Urea nitrogen [Mass/Vol] 12 mg/dL Normal 9- [facility] Comment on above: Performed By: #### L AB17 ####Box Press Operator: MAMTA ALBARRANDEBRA ([id number])[facility] ([facility])[address] [place] [address] Comprehensive metabolic 1998 panelon 04-09-2024 Albumin [Mass/Vol] 2 g/dL Low 3.4 - 4.8 g/dL [facility] ALP [Catalytic activity/Vol] 76 U/L 40 - 150 U/L [facility] ALT [Catalytic activity/Vol] 10 U/L [facility] IN[facility] - 40 U/L [facility] Anion gap [Moles/Vol] 6 mmol/L 3 - 13 mmol/L [facility] AST [Catalytic activity/Vol] 31 U/L [facility]UROLOG[facility] INSTITUTEF - 34 U/L [facility] Bilirubin [Mass/Vol] 0.2 mg/dL NINF - 1.2 mg/dL [facility] Calcium [Mass/Vol] 8 mg/dL Low 8.8 - 10. 0 mg/dL [facility] Chloride [Moles/Vol] 107 mmol/L 98 - 10 7 mmol/L [facility] CO2 [Moles/Vol] 22 mmol/L Low 23 - 31 mmol/L [facility] Creatinine [Mass/Vol] 0.67 mg/dL Low 0.72 - 1.25 mg/dL [facility] GFR/1.73 sq M.predicted (S/P/Bld) [Vol rate/Area] - PINF [facility] Comment on above: Calculation based on the Chronic Kidney Disease Epidemiology Collaboration (CKD-EPI) equation refit without adjustment for race Glucose [Mass/Vol] 108 mg/dL 82 - 115 mg/dL [facility] Interpretation and review of laboratory results Abnormal [facility] Potassium [Moles/Vol] 3.2 mmol/L Low 3.5 - 5.1 mmol/L [facility] Comment on above: Plasma potassium mera ues may be up to 0.5 mmol/L lower than serum values. Protein [Mass/Vol] 4.9 g/dL Low 6.4 - 8.3 g/dL [facility] Sodium [Moles/Vol] 135 mmol/L Low 136 - 145 mmol/L [facility] Urea nitrogen [Mass/Vol] 12 mg/dL 9 - 23 mg/dL [facility] Laboratory - Microbiology an d Antimicrobial susceptibilityOrdered By: Jaclyn Swanson on 04-09-2024 Bacteria identified Cx Nom (U) Multiple species present; probable contamination; repeat suggested [facility] Progress Noteon 04-09-2024 Progress Note Nutrition Assessment Type and Reason for Visit: Initial, Wound Nutrition Recommendations/Plan: Continue Soft and Bite Sized diet with meds crushed in Puree as recommended by AZURE DEVELOPER- Assist in room service participation, and encourage [...] & deltoids) Fluid Accumulation: Unable to assess Stock Clerk Strength: Not Performed Nutrition Assessment: 83 year old man with PMHx: UTIs, nephrolithiasis, GERD, chronic pain, HTN, interstitial lung disease, RICKY, COPD with asthma. Presented to [facility] ED via EMS from SNF with [...] scale weight obtained: 138.2#, unsure of UBW. AZURE DEVELOPER recommending Soft and Bite sized diet. Estimated Daily Nutrient Needs: Energy Requirements Based On: Kcal/kg Weight Used for Energy Requirements: [place] Weight for Energy Calculation (kg): 48 kg Total Energy Requirements (kcals/day): 1493-4773 (25-30 kcal/kg IBW) Weight Used for Protein Requirements: [place] Weight in Kg Used for Protein Requirements: [...] EMR 03/18/23) % Weight Change (Calculated): -13.1 [place] Body Weight (lbs) (Calculated): 106 lbs [place] Body Weight (Kg) (Calculated): 48 kg % [place] Body Weight (Calculated): 130.4 % BMI (kg/m2) [...] Nutrition Supplement Teri Mar RDN, LDN, Contact: *[phone] [facility] Progress Note Speech-Language Pathology SPEECH LANGUAGE PATHOLOGY [facility] Bedside Swallow Evaluation Patient Name: Doroteo Gong Evaluation Date: 04/09/2024 Date of : 1940 Admission Date: 04/07/2024 4:42 AM Age: 83 y.o. [facility]: [facility] IMPRESSION: S/s oropharyngeal dysphagia. No overt [...] mouth. Pt would benefit from skilled acute AZURE DEVELOPER services to address diet tolerance and to [...] be evaluated. Dysphagia History: No history of AZURE DEVELOPER services in EMR with retrospective chart review [...] altered mental status. He arrived here from [facility], because he was pressing the call [...] service and (more content not included)... Normal [facility] 30on 04-08-2024 30 Problem: Knowledge Deficit Goal: Patient/family/caregive r demonstrates understanding of disease process, treatment plan, medications, and discharge instructions Outcome: Progressing Problem: Potential for Compromised Skin Integrity Goal: Skin Integrity is Maintained or Improved Outcome: Progressing Normal [facility] [id number] 04-08-2024 [id number] Received a message kenroy VACA that pt's family would like for him to go to [facility] rather than return to [facility]. Referral sent, [facility] is able to accept. Does not need auth, does need 3MN inpatient stay. TCC will continue to follow. [facility] [id number] IA completed with pt at BS. From [facility]. Has cane, WW, and handicapped accessible bathroom. Facility assists with ADLs and IADLs. INFORMATION TECHNOLOGY DIRECTOR tasked in [employer] to send return referral. Awaiting answer from SNF. TCC will continue to follow. The time of this note does not reflect the actual time patient was seen and assessed but instead the time of this documentation. [facility] 36on 04-08-2024 36 PT phone # doesn't work. [phone] Pt admitted to [place] [facility] currently. Called pt at hospital in his room. Got new phone # [phone] Scheduled for follow up 04/28/24 @ 130pm with Emory Jacome Sending letter with appt information to patient [facility] BASIC METABOLIC PANELon 03-17 Anion gap [Moles/Vol] 7 mmol/L Normal 3-13 [facility] Comment on above: Performed By: #### L AB15 ####Box Press Operator: MAMTA BILLY ([phone])[facility] ([facility])[address] [place] [address] Calcium [Mass/Vol] 8.9 mg/dL Normal 8.8-10.0 [facility] Comment on above: Performed By: #### L AB15 ####Box Press Operator: MAMTA BILLY ([phone])[facility] ([facility])[address] [place] [address] [place] Chloride [Moles/Vol] 100 mmol/L Normal 98-107 [facility] Comment on above: Performed By: #### L AB15 ####Box Press Operator: MAMTA BILLY ([phone])[facility] ([facility])[address] [place] [address] [place] CO2 [Moles/Vol] 26 mmol/L Normal 23-31 [facility] Comment on above: Performed By: #### L AB15 ####Box Press Operator: MAMTA BILLY ([phone])[facility] (SBHLAB)[address] Creatinine [Mass/Vol] 0.88 mg/dL Normal 0.72-1.25 [facility] Comment on above: Performed By: #### L AB15 ####Box Press Operator: MAMTA BILLY ([phone])[facility] (SBHLAB)[address] GLOMERULAR FILTRATION RATE ML/MIN/1.73 SQ M.PREDICTED 84.8 mL/min/1.73m*2 Normal >60.0 [facility] Comment on above: Result Comment: Calc ulation based on the Chronic Kidney Disease Epidemiology Collaboration (CKD-EPI) equation refit without adjustment for race Performed By: #### L AB15 ####Box Press Operator: MAMTA BILLY ([phone])[facility] (SBHLAB)[address] Glucose [Mass/Vol] 91 mg/dL Normal 82-115 [facility] Comment on above: Performed By: #### L AB15 ####Box Press Operator: MAMTA BILLY ([id number])[facility] (HLAB)[address] Potassium [Moles/Vol] 3.8 mmol/L Normal 3.5-5.1 [facility] Comment on above: Result Comment: [facility] potassium values may be up to 0.5 mmol/L lower than serum values. Performed By: #### L AB15 ####Box Press Operator: MAMTA BILLY ([phone])[facility] (SBHLAB)[address] [place] [address] [place] Sodium [Moles/Vol] 133 mmol/L Low 136-145 [facility] Comment on above: Performed By: #### L AB15 ####Box Press Operator: MAMTA BILLY ([phone])[facility] (SBHLAB)[address] [place] [address] [place] Urea nitrogen [Mass/Vol] 28 mg/dL High 9-23 [facility] Comment on above: Performed By: #### L AB15 ####Box Press Operator: MAMTA BILLY ([phone])[facility] (SBHLAB)[address] [place] [address] Basic metabolic 1998 panelon 04-08-2024 Anion gap [Moles/Vol] 7 mmol/L 3 - 13 mmol/L [facility] Calcium [Mass/Vol] 8.9 mg/dL 8.8 - 10. 0 mg/dL [facility] Chloride [Moles/Vol] 100 mmol/L 98 - 10 7 mmol/L [facility] CO2 [Moles/Vol] 26 mmol/L 23 - 31 mmol/L [facility] Creatinine [Mass/Vol] 0.88 mg/dL 0.72 - 1.25 mg/dL [facility] GFR/1.73 sq M.predicted (S/P/Bld) [Vol rate/Area] 84.8 mL/min - PINF [facility] Comment on above: Calculation based on the Chronic Kidney Disease Epidemiology Collaboration (CKD-EPI) equation refit without adjustment for race Glucose [Mass/Vol] 91 mg/dL 82 - 115 mg/dL [facility] Interpretation and review of laboratory results Abnormal [facility] Potassium [Moles/Vol] 3.8 mmol/L 3.5 - 5.1 mmol/L [facility] Comment on above: Plasma potassium mera ues may be up to 0.5 mmol/L lower than serum values. Sodium [Moles/Vol] 133 mmol/L Low 136 - 145 mmol/L [facility] Urea nitrogen [Mass/Vol] 28 mg/dL High 9 - 23 mg/dL [facility] CBC W Auto Differential pane l (Bld)Ordered By: Valery Claros on 04-08-2024 Erythrocyte distribution width (RBC) [Ratio] 14.1 % 11.5 - 15.0 % [facility] Hematocrit (Bld) [Volume fraction] 36.3 % Low 40.0 - 52.0 % [facility] Hemoglobin (Bld) [Mass/Vol] 12 g/dL Low 13.0 - 18.0 g/dL [facility] MCH (RBC) [Entitic mass] 28.5 pg 26. 0 - 34.0 pg [facility] MCHC (RBC) [Mass/Vol] 33.1 % 30.5 - 36.0 % [facility] MCV (RBC) [Entitic vol] 86.2 fL 77.0 - 99.0 fL [facility] Platelet mean volume (Bld) [Entitic vol] 9.3 fL 9.0 - 12.7 fL [facility] Platelets (Bld) [#/Vol] 524 10*3/uL High 140 - 440 10*3/uL [facility] RBC (Bld) [#/Vol] 4.21 10*6/uL Low 4.40 - 5.9 0 10*6/uL [facility] WBC (Bld) [#/Vol] 20 10*3/uL High 3.6 - 10.7 10*3/uL [facility] CBC WITH AUTO DIFFERENTIALon 04-08-2024 Erythrocyte distribution width (RBC) [Ratio] 14.1 % Normal 11.5-15.0 [facility] Comment on above: Performed By: #### Louisa [id number], [id number] ####Box Press Operator: MAMTA BILLY ([phone])[facility] ([facility])[address] [place] [address] Hematocrit (Bld) [Volume fraction] 36.3 % Low 40.0-52.0 [facility] Comment on above: Performed By: #### Louisa [id number], [id number] ####Box Press Operator: MAMTA BILLY ([phone])[facility] ([facility])[address] [place] [address] Hemoglobin (Bld) [Mass/Vol] 12.0 g/dL Low 13.0-18.0 [facility] Comment on above: Performed By: #### L [id number], [id number] ####Box Press Operator: MAMTA BILLY ([phone])[facility] ([facility])[address] [place] [address] MCH (RBC) [Entitic mass] 28.5 pg Normal 26.0-34.0 [facility] Comment on above: Performed By: #### L [id number], [id number] ####Box Press Operator: MAMTA BILLY ([id number])[facility] [place] (SBHLAB)[address] MCHC 33.1 % Normal 30.5-36.0 [facility] Comment on above: Performed By: #### L [id number], [id number] ####Box Press Operator: MAMTA BILLY ([phone])[facility] [place] (SBHLAB)[address] MCV (RBC) [Entitic vol] 86.2 fL Normal 77.0-99.0 S [facility] Comment on above: Performed By: #### L [id number], [id number] ####Box Press Operator: MAMTA ALBARRANDEBRA ([id number])[facility] [place] (SBHLAB)[address] [place] [address] Platelet mean volume (Bld) [Entitic vol] 9.3 fL Normal 9.0-12.7 [facility] Comment on above: Performed By: #### L [id number], [id number] ####Box Press Operator: MAMTA BILLY ([id number])[facility] [place] (SBHLAB)[address] Platelets (Bld) [#/Vol] 524 10*3/uL High 140-440 [facility] Comment on above: Performed By: #### L [id number], [id number] ####Box Press Operator: MAMTA BILLY ([phone])[facility] [place] (SBHLAB)[address] RBC (Bld) [#/Vol] 4.21 10*6/uL Low 4.40-5.90 [facility] Comment on above: Performed By: #### L [id number], [id number] ####Box Press Operator: MAMTA BILLY ([phone])[facility] [place] (SBHLAB)[address] [place] [address] [place] WBC (Bld) [#/Vol] 20.0 10*3/uL High 3.6-10.7 [facility] Comment on above: Performed By: #### L [id number], [id number] ####Box Press Operator: MAMTA BILLY ([phone])[facility] [place] (SBHLAB)[address] Consulton 04-08-2024 Consult Palliative Care Init ial Consult Chief Complaint: Doroteo Gong is a 83 y.o. male with chief complaint of altered mentation. Palliative Care will follow peripherally, please contact on-call provider for urgent needs Assessment/Plan UTI/obstructive uropathy - scwhartz placed, seen by Urology today, note appreciated - per primary: ceftriaxone, tamsulosin HX COPD - O2 2L - mgmt per primary: ipratropium nebs Risk for constipation/hx diarrhea - CT A/P with evidence of constipation - had 2 BM overnight - per primary: polyethylene glycol, psyllium Debility - has resided at [facility] since March 2023 Chronic back pain - prn tramadol with relief, would not adjust this medication as helpful Reduced appetite - tells me better since he is not at the [facility] - albumin marginally low at 2.6 - [...] DNRCCA-DNI, okay for ICU means here at [facility], agrees with this. Will place order in epic. Asked if he and Harshil talked about that, tells me Harshil doesn't want to talk about that aware I will call him today, thankful - only family is nephew Harshil and cousin Solange - no family at bedside, call to Harshil Murguia at [phone], did not answer times 2, voice mail box is full and cannot accept any more messages - will continue to follow for ongoing monitoring of progression of Anorexia - will continue to evaluate test results related to uti , medication effectiveness for Anorexia, response to treatment of uti -follow peripherally until get in touch with nephew, known to our service at [facility], upon dc if returns there our team can follow there as well, no true need to follow here once I talk with family Total of 60 minutes spent on this encounter including Chart review, Patient visit and exam, Documentation in EHR, Care coordination, Communicating with primary attending or other consultants, Electronic order checker of medications, tests or procedures, and Counseling [...] is a 83 y.o. male living at [facility] for 24 hour care [...] consult. Since seen by palliative care at [facility] we are consulted for pain and goals of care. Patient awake in bed in NAD, did have back pain and L shoulder pain that is improved post tra (more content not included)... Normal [facility] Consult Yenifer Dc DO 04/08/2024 at 9:22 AM [facility]rology Inpatient Consultation PATIENT NAME: Doroteo Gong [...] tablet 5 mg, 5 mg, Oral, Daily, [facility] (more content not included)... Normal [facility] Note Doroteo Gong [...] topically daily. ergocalciferol (Vitamin D-2) 1.25 MG (21579 UT) capsule Take 1.25 mg by mouth [...] (Macrobid) 1 (more content not included)... Normal [facility] Laboratory - Hematology and Cell countson 04-08-2024 Lymphocytes (Bld) [#/Vol] 2 10*3/uL 1.0 - 4.3 10*3/uL [facility] Lymphocytes/100 WBC (Bld) 10 % Low 15 - 45 % [facility] Monocytes (Bld) [#/Vol] 0.8 10*3/uL 0.0 - 0.9 10*3/uL [facility] Monocytes/100 WBC (Bld) 4 % Low 5 - 13 % [facility] Neutrophils (Bld) [#/Vol] 16.8 10*3/uL High 1.8 - 7.5 10*3/uL [facility] Ovalocytes LM Ql (Bld) Slight Abnormal (none) [facility] Poikilocytosis LM Ql (Bld) Slight Abnormal (none) [facility] RBC morphology finding Nom (Bld) abnormal [facility] Segmented neutrophils/100 WBC (Bld) 84 % High 38 - 82 % [facility] Variant lymphocytes (Bld) [#/Vol] 0.4 10*3/uL High NINF - 0.0 10*3/uL [facility] Variant lymphocytes/100 WBC (Bld) 2 % High NINF - 0 % [facility] MANUAL DIFFERENTIAL (CELLAVI LATOSHA)on 04-08-2024 BAND NEUTROPHILS TOTAL PER COUNTED LEUKOCYTES BY MANUAL COUNT Normal [facility] Comment on above: Performed By: #### L [id number], [id number] ####Box Press Operator: MAMTA BILLY ([phone])[facility] [place] (SBHLAB)[address] [place] [address] [place] BASOPHILS TOTAL PER COUNTED LEUKOCYTES BY MANUAL COUNT Normal [facility] Comment on above: Performed By: #### L [id number], [id number] ####Box Press Operator: MAMTA BILLY ([phone])[facility] [place] (SBHLAB)[address] [place] [address] [place] BLASTS TOTAL PER COUNTED LEUKOCYTES BY MANUAL COUNT Normal [facility] Comment on above: Performed By: #### L [id number], [id number] ####Box Press Operator: MAMTA BILLY ([phone])[facility] [place] (SBHLAB)[address] [place] [address] [place] EOSINOPHILS TOTAL PER COUNTED LEUKOCYTES BY MANUAL COUNT Normal [facility] Comment on above: Performed By: #### L [id number], [id number] ####Box Press Operator: MAMTA BILLY ([phone])[facility] [place] (SBHLAB)[address] [place] [address] [place] LYMPHOCYTE VARIANT/100 LEUKOCYTES IN BLOOD- CELLAVISION 2 % High <=0 [facility] Comment on above: Performed By: #### L [id number], [id number] ####Box Press Operator: MAMTA BILLY ([phone])[facility] [place] (SBHLAB)[address] [place] [address] [place] LYMPHOCYTES (10*3/UL) IN BLOOD-CELLAVISION 2.0 10*3/uL Normal 1.0-4.3 [facility] Comment on above: Performed By: #### L [id number], [id number] ####Box Press Operator: MAMTA BILLY ([phone])[facility] [place] (SBHLAB)[address] LYMPHOCYTES TOTAL PER COUNTED LEUKOCYTES BY MANUAL COUNT 10 Normal [facility] Comment on above: Performed By: #### L [id number], [id number] ####Box Press Operator: MAMTA ALBARRANDEBRA ([phone])[facility] [place] (SBHLAB)[address] [place] [address] [place] LYMPHOCYTES/100 LEUKOCYTES IN BLOOD-CELLAVISION 10 % Low 15-45 [facility] Comment on above: Performed By: #### L [id number], [id number] ####Box Press Operator: MAMTA BILLY ([phone])[facility] [place] (SBHLAB)[address] METAMYELOCYTES TOTAL PER COUNTED LEUKOCYTES BY MANUAL COUNT [facility] Comment on above: Performed By: #### L [id number], [id number] ####Box Press Operator: MAMTA BILLY ([phone])[facility] [place] (SBHLAB)[address] [place] [address] [place] MONOCYTES (10*3/UL) IN BLOOD-CELLAVISION 0.8 10*3/uL Normal 0.0-0.9 [facility] Comment on above: Performed By: #### L [id number], [id number] ####Box Press Operator: MAMTA BILLY ([phone])[facility] [place] (SBHLAB)[address] [place] [address] [place] MONOCYTES TOTAL PER COUNTED LEUKOCYTES BY MANUAL COUNT 4 [facility] Comment on above: Performed By: #### L [id number], [id number] ####Box Press Operator: MAMTA BILLY ([phone])[facility] [place] (SBHLAB)[address] [place] [address] [place] MONOCYTES/100 LEUKOCYTES IN BLOOD-MELODY 4 % Low 5-13 [facility] Comment on above: Performed By: #### L [id number], [id number] ####Box Press Operator: MAMTA BILLY ([phone])[facility] [place] (SBHLAB)[address] [place] [address] [place] MYELOCYTES COUNTED BY MANUAL COUNT Normal [facility] Comment on above: Performed By: #### L [id number], [id number] ####Box Press Operator: MAMTA BILLY ([phone])[facility] [place] (SBHLAB)[address] [place] [address] [place] NEUTROPHILS TOTAL PER COUNTED LEUKOCYTES BY MANUAL COUNT 85 Normal [facility] Comment on above: Performed By: #### L [id number], [id number] ####Box Press Operator: MAMTA BILLY ([phone])[facility] [place] (SBHLAB)[address] [place] [address] [place] OVALOCYTES PRESENCE IN BLOOD BY LIGHT MICROSCOPY Slight Abnormal (none) [facility] Comment on above: Performed By: #### L [id number], [id number] ####Box Press Operator: MAMTA BILLY ([phone])[facility] [place] (SBHLAB)[address] [place] [address] [place] POIKILOCYTOSIS (PRESENCE) IN BLOOD BY LIGHT MICROSCOPY Slight Abnormal (none) [facility] Comment on above: Performed By: #### L [id number], [id number] ####Box Press Operator: MAMTA BILLY ([phone])[facility] [place] (SBHLAB)[address] [place] [address] [place] PROMYELOCYTES TOTAL PER COUNTED LEUKOCYTES BY MANUAL COUNT [facility] Comment on above: Performed By: #### L [id number], [id number] ####Box Press Operator: MAMTA BILLY ([phone])[facility] [place] (SBHLAB)[address] [place] [address] [place] RBC MORPHOLOGY IN BLOOD abnormal Normal [facility] Comment on above: Performed By: #### L [id number], [id number] ####Box Press Operator: MAMTA BILLY ([phone])[facility] [place] (SBHLAB)[address] [place] [address] [place] SEGMENTED NEUTROPHILS (10*3/UL) IN BLOOD-CELLAVISION 16.8 10*3/uL High 1.8-7.5 [facility] Comment on above: Performed By: #### L [id number], [id number] ####Box Press Operator: MAMTA BILLY ([phone])[facility] [place] (SBHLAB)[address] [place] [address] [place] SEGMENTED NEUTROPHILS/100 LEUKOCYTES-CE 84 % High 38-82 [facility] Comment on above: Performed By: #### L [id number], [id number] ####Box Press Operator: MAMTA BILLY ([phone])[facility] [place] (SBHLAB)[address] UNCLASSIFIED CELLS TOTAL PER COUNTED LEUKOCYTES BY MANUAL COUNT Normal [facility] Comment on above: Performed By: #### L [id number], [id number] ####Box Press Operator: MAMTA BILLY ([phone])[facility] [place] (SBHLAB)[address] VARIANT LYMPHOCYTES (10*3/UL) IN BLOOD-CELLAVISION 0.4 10*3/uL High <=0.0 [facility] Comment on above: Performed By: #### L [id number], [id number] ####Box Press Operator: MAMTA BILLY ([phone])[facility] [place] (SBHLAB)[address] [place] [address] [place] VARIANT LYMPHOCYTES TOTAL PER COUNTED LEUKOCYTES BY MANUAL COUNT 2 Normal [facility] Comment on above: Performed By: #### L [id number], [id number] ####Box Press Operator: MAMTA BILLY ([phone])[facility] [place] (SBHLAB)[address] No Panel Informationon 04-08 Atypical Lymphocytes Manual 2 [facility] Health Bands Manual [facility] Basophils Manual [facility] Blasts Manual [facility] Eosinophils Manual [facility] Health Lymphocytes Manual 10 [facility] Health Metamyelocytes Manual [facility] Monocytes Manual 4 [facility] Myelocytes Manual [facility] H ealth Neutrophils Manual 85 [facility] Promyelocytes Manual [facility] Unclassified Cells, Manual [facility] No Panel InformationOrdered By: Valery Claros on 04-08-2024 Interpretation and review of laboratory results Abnormal [facility] XR Chest 2 Viewson Limited examination. No consolidation. No large pleural effusion. Report Dictated on Electronically Signed By: Roger Cervantes MD Electronically Signed Date/Time: 04/08/2024 8:04 PM EST [facility] EMERGENCY [facility]PARTMENT RADIOLOGY SYSTEM Patient Name: DOROTEO GONG : [...] change of the thoracic spine is noted. [facility] Roger Cervantes MD - 04/08/2024 Patient [...] Electronically Signed Date/Time: 04/08/2024 8:04 PM EST [facility] Radiology Study observation (narrative) [facility] Chest 2 ViewsOrdered By: oRger Cervantes on 04-08-2024 [facility] [employer] Work Phone: 30on 04-07-2024 30 Problem: Pain [...] noted to have fall risk factors Normal [facility] BLOOD CULTUREon 04-07-2024 Bacteria identified Cx Nom (Bld) BLOOD CULTURE Reference No growth at 5 days ORDER COMMENTS: Blood Collection Site: Right Forearm [ S = SUSCEPTIBLE R = RESISTANT I = INTERMEDIATE S-DD = Susceptible-dose dependent NS = Non-susceptible NO = No Interpretation ] Normal [facility] Comment on above: Performed By: #### L [id number] ####Box Press Operator: IZZY LIZ ([phone])[address] Bacteria identified Cx Nom (Bld) BLOOD CULTURE Reference No growth at 5 days ORDER COMMENTS: Blood Collection Site: Left Forearm [ S = SUSCEPTIBLE R = RESISTANT I = INTERMEDIATE S-DD = Susceptible-dose dependent NS = Non-susceptible NO = No Interpretation ] Normal [facility] Comment on above: Performed By: #### L [id number] ####Box Press Operator: IZZY LIZ ([phone])[facility] (SACLAB)[address] [place] [address] CBC W Auto Differential pane l (Bld)on [...] Interpretation and review of laboratory results Abnormal [facility] Lymphocytes (Bld) [#/Vol] 2 10*3/uL [...] (Bld) 76 % 38.0 - 82.0 % [facility] Nucleated RBC/100 WBC (Bld) [Ratio] 0 % [facility] Platelet mean volume (Bld) [Entitic vol] 9.6 fL 9.0 - 12.7 fL [facility] Comment on above: MPV is a calculated measurement using platelet volume ratio Platelets (Bld) [#/Vol] 552 10*3/uL High 140 - 440 10*3/uL [facility] RBC (Bld) [#/Vol] 4.45 10*6/uL 4.40 - 5.9 0 10*6/uL [facility] WBC (Bld) [#/Vol] 15.4 10*3/uL High 3.6 - 10.7 10*3/uL [facility] CBC WITH AUTO DIFFERENTIALon 04-07-2024 Basophils (Bld) [#/Vol] 0.0 10*3/uL Normal 0.0-0.2 [facility] Comment on above: Performed By: #### L [id number] ####Box Press Operator: IZZY LIZ ([phone])[facility] ILYA [place] (SWRLAB)[address] [place] [address] [place] Basophils/100 WBC (Bld) 0.3 % Normal 0.0-2.0 [facility] Comment on above: Performed By: #### L [id number] ####Box Press Operator: IZZY LIZ ([phone])[facility]ak CALLESILYA [place] (SWRLAB)[address] [place] [address] [place] Eosinophils (Bld) [#/Vol] 0.2 10*3/uL Normal 0.0-0.5 [facility] Comment on above: Performed By: #### L [id number] ####Box Press Operator: IZZY LIZ ([phone])[facility] ZAVALAILYA [place] (SWRLAB)[address] [place] [address] [place] Eosinophils/100 WBC (Bld) 1.0 % Normal 0.0-6.0 [facility] Comment on above: Performed By: #### L [id number] ####Box Press Operator: IZZY LIZ ([phone])MIGUELINA CARABALLO [place] (SWRLAB)[address] [place] [address] Erythrocyte distribution width (RBC) [Ratio] 13.6 % Normal 11.5-15.0 [facility] Comment on above: Performed By: #### L [id number] ####Box Press Operator: IZZY LIZ ([phone])[facility] CARABALLO [place] (SWRLAB)[address] [place] [address] Hematocrit (Bld) [Volume fraction] 37.5 % Low 40.0-52.0 [facility] Comment on above: Performed By: #### L [id number] ####Box Press Operator: IZZY LIZ ([phone])[facility] CARABALLO [place] (SWRLAB)[address] [place] [address] Hemoglobin (Bld) [Mass/Vol] 12.9 g/dL Low 13.0-18.0 [facility] Comment on above: Performed By: #### L [id number] ####Box Press Operator: IZZY LIZ ([phone])MIGUELINA CARABALLO [place] (SWRLAB)[address] [place] [address] IMMATURE GRANS % 0.5 % Normal 0.0-2.0 [facility] Comment on above: Performed By: #### L [id number] ####Box Press Operator: IZZY LIZ ([phone])[facility] CARABALLO [place] (SWRLAB)[address] [place] [address] IMMATURE GRANS ABSOLUTE 0.1 10*3/uL High <0.1 [facility] Comment on above: Performed By: #### L [id number] ####Box Press Operator: IZZY LIZ ([phone])[facility] CARABALLO [place] (SWRLAB)[address] [place] [address] Lymphocytes (Bld) [#/Vol] 2.0 10*3/uL Normal 1.0-4.3 [facility] Comment on above: Performed By: #### L [id number] ####Box Press Operator: IZZY LIZ ([phone])MIGUELINA CARABALLO [place] (SWRLAB)[address] [place] [address] [place] Lymphocytes/100 WBC (Bld) 13.1 % Low 15.0-45.0 [facility] Comment on above: Performed By: #### L [id number] ####Box Press Operator: IZZY LIZ ([phone])[facility] CARABALLO [place] (SWRLAB)[address] [place] [address] MCH (RBC) [Entitic mass] 29.0 pg Normal 26.0-34.0 [facility] Comment on above: Performed By: #### L [id number] ####Box Press Operator: IZZY LIZ ([phone])[facility] CARABALLO [place] (SWRLAB)[address] [place] [address] MCHC 34.4 % Normal 30.5-36.0 [facility] Comment on above: Performed By: #### L [id number] ####Box Press Operator: IZZY LIZ ([phone])[facility] CARABALLO [place] (SWRLAB)[address] [place] [address] MCV (RBC) [Entitic vol] 84.3 fL Normal 77.0-99.0 [facility] Comment on above: Performed By: #### L [id number] ####Box Press Operator: IZZY LIZ ([phone])[facility] CARABALLO [place] (SWRLAB)[address] [place] [address] [place] Monocytes (Bld) [#/Vol] 1.4 10*3/uL High 0.0-0.9 [facility] Comment on above: Performed By: #### L [id number] ####Box Press Operator: IZZY LIZ ([phone])[facility] CARABALLO [place] (SWRLAB)[address] [place] [address] [place] Monocytes/100 WBC (Bld) 9.1 % Normal 5.0-13.0 [facility] Comment on above: Performed By: #### L [id number] ####Box Press Operator: IZZY LIZ ([phone])MIGUELINA CARABALLO [place] (SWRLAB)[address] [place] [address] NEUTROPHILS ABSOLUTE 11.7 10*3/uL High 1.8-7.5 [facility] Comment on above: Performed By: #### L [id number] ####Box Press Operator: IZZY LIZ ([phone])[facility] CARABALLO [place] (SWRLAB)[address] [place] [address] Neutrophils/100 WBC (Bld) 76.0 % Normal 38.0-82.0 [facility] Comment on above: Performed By: #### L [id number] ####Box Press Operator: IZZY LZI ([phone])[facility] CARABALLO [place] (SWRLAB)[address] [place] [address] NRBC 0.0 /100 WBCs Normal 0.0-2.0 [facility] Comment on above: Performed By: #### L [id number] ####Box Press Operator: IZZY LIZ ([phone])[facility] CARABALLO [place] (SWRLAB)[address] [place] [address] Platelet mean volume (Bld) [Entitic vol] 9.6 fL Normal 9.0-12.7 [facility] Comment on above: Result Comment: MPV is a calculated measurement using platelet volume ratio Performed By: #### L [id number] ####Box Press Operator: IZZY LIZ ([phone])[facility]ITALJ[facility] CARABALLO [place] (SWRLAB)[address] [place] [address] [place] Platelets (Bld) [#/Vol] 552 10*3/uL High 140-440 [facility] Comment on above: Performed By: #### L [id number] ####Box Press Operator: IZZY LIZ ([phone])[facility]ITALJak CARABALLO [place] (SWRLAB)[address] RBC (Bld) [#/Vol] 4.45 10*6/uL Normal 4.40-5.90 [facility] Comment on above: Performed By: #### L [id number] ####Box Press Operator: IZZY LIZ ([phone])[facility] CARABALLO [place] (SWRLAB)[address] [place] [address] WBC (Bld) [#/Vol] 15.4 10*3/uL High 3.6-10.7 [facility] Comment on above: Performed By: #### L [id number] ####Box Press Operator: IZZY LIZ ([phone])[facility] CARABALLO [place] (SWRLAB)[address] [place] [address] COMPLETE URINALYSISon 2023 BACTERIA (#/HPF) IN URINE Many Abnormal Negative [facility] Comment on above: Performed By: #### L [id number] ####Box Press Operator: IZZY LIZ ([phone])[facility] (SACLAB)[address] [place] [address] [place]#### [id number] ####Box Press Operator: IZZY LIZ ([phone])[facility] ILYA [facility] (SWRLAB)[address] [place] [address] BILIRUBIN, TOTAL PRESENCE IN URINE Negative Normal Negative [facility] Comment on above: Performed By: #### L [id number] ####Box Press Operator: IZZY LIZ ([phone])[facility] (SAC[facility])[address] [place] [address] [place]#### [id number] ####Box Press Operator: IZZY LIZ ([phone])[facility]ITALJak PATETMAN (SWRLAB)[address] [place] [address] Clarity (U) Extra Turbid Abnormal Clear [facility] Comment on above: Performed By: #### L [id number] ####Box Press Operator: IZZY LIZ ([id number])[facility] (SAC[facility])[address] [place] [address] [place]#### [id number] ####Box Press Operator: IZZY LIZ ([phone])[facility]ITALJ[facility] PATETMAN (SWRLAB)[address] [place] [address] Color (U) Dark Yellow Abnormal Lt. Yellow [facility] Comment on above: Performed By: #### L [id number] ####Box Press Operator: IZZY LIZ ([phone])[facility] (SACLAB)[address] [place] [address]#### [id number] ####Box Press Operator: IZZY LIZ ([phone])[facility] ILYA PATETMAN (SWRLAB)[address] [place] [address] GLUCOSE (MG/DL) IN URINE Normal Normal Nor mal (<70) [facility] Comment on above: Performed By: #### L [id number] ####Box Press Operator: IZZY LIZ ([phone])[facility] (SACLAB)[address] [place] [address]#### [id number] ####Box Press Operator: IZZY LIZ ([phone])[facility] ILYA PATETMAN (SWRLAB)[address] [place] [address] HEMOGLOBIN PRESENCE IN URINE 0.03 mg/dL Abnormal Negative [facility] Comment on above: Performed By: #### L [id number] ####Box Press Operator: IZZY LIZ ([phone])[facility] ([facility])[address] [place] [address] [place]#### [id number] ####Box Press Operator: IZZY LIZ ([phone])[facility] ILYA PATETMAN (SWRLAB)[address] [place] [address] Ketones Ql (U) Trace Abnormal Negative [facility] [facility] Comment on above: Performed By: #### L [id number] ####Box Press Operator: IZZY LIZ ([phone])[facility] (SACLAB)[address] [place] [address] [place]#### [id number] ####Box Press Operator: IZZY LIZ ([phone])[facility] ILYA RITTMAN (SWRLAB)[address] [place] [address] LEUKOCYTE ESTERASE PRESENCE IN URINE BY TEST STRIP 500 Pennie/uL Abnormal Negative [facility] Comment on above: Performed By: #### L [id number] ####Box Press Operator: IZZY LIZ ([phone])[facility] (SACLAB)[address] [place] [address]#### [id number] ####Box Press Operator: IZZY LIZ ([phone])[facility]ILYA [facility] (SWRLAB)[address] [place] [address] MUCUS (#/LPF) IN URINE SEDIMENT Moderate Abnormal Negative [facility] Comment on above: Performed By: #### L [id number] ####Box Press Operator: IZZY LIZ ([phone])[facility] (SACLAB)[address] [place] [address]#### [id number] ####Box Press Operator: IZZY LIZ ([phone])[facility]ILYA RIT[facility]AN (SWRLAB)[address] [place] [address] NITRITE PRESENCE IN URINE Negative Normal Negative [facility] Comment on above: Performed By: #### L [id number] ####Box Press Operator: IZZY LIZ ([phone])[facility] (SACLAB)[address] [place] [address]#### [id number] ####Box Press Operator: IZZY LIZ ([phone])[facility] ILYA RITTMAN (SWRLAB)[address] [place] [address] pH (U) 7.5 [pH] Normal 5.0-8.0 [facility] Comment on above: Performed By: #### L [id number] ####Box Press Operator: IZZY LIZ ([phone])[facility] (SAC[facility])[address] [place] [address]#### [id number] ####Box Press Operator: IZZY LIZ ([phone])[facility]ITALJak PATETMAN (SWRLAB)[address] Protein (U) [Mass/Vol] 200 mg/dL Abnormal Negative [facility]S Comment on above: Performed By: #### L [id number] ####Box Press Operator: IZZY LIZ ([phone])[facility] (SAC[facility])[address] [place] [address]#### [id number] ####Box Press Operator: IZZY LIZ ([phone])[facility]ITALJka ILYA RIOTMAN (SWRLAB)[address] [place] [address] RBC (#/HPF) IN URINE SEDIMENT 0-2 Normal 0-2 [facility] Comment on above: Performed By: #### L [id number] ####Box Press Operator: IZZY LIZ ([phone])[facility] ([facility]AC[facility])[address] [place] [address]#### [id number] ####Box Press Operator: IZZY LIZ ([id number])[facility]ITALJak ILYA RIOTMAN (SWRLAB)[address] [place] [address] Specific gravity (U) [Rel density] 1.017 Normal 1.005-1.030 [facility] Comment on above: Performed By: #### L [id number] ####Box Press Operator: IZZY LIZ ([id number])[facility] (SAC[facility])[address] [place] [address]#### [id number] ####Box Press Operator: IZZY LIZ ([phone])[facility]ILYA RIOTMAN (SWRLAB)[address] [place] [address] Specimen volume (U) 12 mL Normal [facility] Comment on above: Performed By: #### L AB239 ####Box Press Operator: IZZY LIZ ([phone])[facility] (SACLAB)[address] [place] [address] [place]#### [id number] ####Box Press Operator: IZZY LIZ ([phone])[facility]ITALJak ZAVALAILYA RITTMAN (SWRLAB)[address] SQUAMOUS EPITHELIAL CELLS (#/HPF) IN URINE SEDIMENT 0-2 Normal 3-5 [facility] Comment on above: Performed By: #### L [id number] ####Box Press Operator: IZZY LIZ ([phone])[facility] ([facility])[address] [place] [address]#### [id number] ####Box Press Operator: IZZY LIZ ([phone])[facility] ILYA RITTMAN (SWRLAB)[address] [place] [address] UROBILINOGEN (MG/DL) IN URINE 3 mg/dL Abnormal Normal (0-1) [facility] Comment on above: Performed By: #### L [id number] ####Box Press Operator: IZZY LIZ ([id number])[facility] ([facility]AC[facility])[address] [place] [address]#### [id number] ####Box Press Operator: IZZY LIZ ([phone])[facility] ILYA RITTMAN (SWRLAB)[address] [place] [address] WBC (LEUKOCYTE) (#/HPF) IN URINE SEDIMENT >100 Abnormal 0-5 [facility] Comment on above: Performed By: #### L AB239 ####Box Press Operator: IZZY LIZ ([phone])[facility] ([facility])[address] [place] [address]#### [id number] ####Box Press Operator: IZZY LIZ ([phone])[facility] ILYA RITTMAN (SWRLAB)[address] [place] [address] COMPREHENSIVE METABOLIC PANE Khris 04-07-2024 Albumin [Mass/Vol] 2.6 g/dL Low 3.4-4.8 [facility] Comment on above: Performed By: #### L AB99, LAB17 ####Box Press Operator: IZZY LIZ ([phone])[facility] ILYA RITTMAN (SWRLAB)[address] [place] [address] [place] ALP [Catalytic activity/Vol] 103 U/L Normal 40-150 [facility] Comment on above: Performed By: #### L AB99, LAB17 ####Box Press Operator: IZZY LIZ ([id number])[facility]ITALJak CARABALLO RITTMAN (SWRLAB)[address] [place] [address] [place] ALT [Catalytic activity/Vol] 6 U/L Normal <40 [facility] Comment on above: Performed By: #### L AB99, LAB17 ####Box Press Operator: IZZY LIZ ([phone])[facility]ITALJak CARABALLO RITTMAN (SWRLAB)[address] Anion gap [Moles/Vol] 11 mmol/L Normal 3-13 [facility] Comment on above: Performed By: #### L 99, LAB17 ####Box Press Operator: IZZY LIZ ([phone])[facility]ITALJak CARABALLO RITTMAN (SWRLAB)[address] [place] [address] [place] AST [Catalytic activity/Vol] 28 U/L Normal <34 [facility] Comment on above: Performed By: #### L AB99, LAB17 ####Box Press Operator: IZZY LIZ ([phone])[facility]ITALJak CARABALLO RITTMAN (SWRLAB)[address] [place] [address] [place] Bilirubin [Mass/Vol] 0.6 mg/dL Normal <1.2 [facility] Comment on above: Performed By: #### L AB99, LAB17 ####Box Press Operator: IZZY LIZ ([phone])[facility]ITALJak CARABALLO RITTMAN (SWRLAB)[address] [place] [address] [place] Calcium [Mass/Vol] 9.6 mg/dL Normal 8.8-10.0 [facility] Comment on above: Performed By: #### L AB99, LAB17 ####Box Press Operator: IZZY LIZ ([phone])[facility]ITALJak ZAVALAILYA RITTMAN (SWRLAB)[address] [place] [address] [place] Chloride [Moles/Vol] 96 mmol/L Low 98-107 [facility] Comment on above: Performed By: #### L 99, LAB17 ####Box Press Operator: IZZY LIZ ([id number])[facility]ITALJak CARABALLO RITTMAN (SWRLAB)[address] [place] [address] [place] CO2 [Moles/Vol] 23 mmol/L Normal 23-31 [facility] Comment on above: Performed By: #### L DEBI, LAB17 ####Box Press Operator: IZZY LIZ ([phone])[facility]ITALJak CARABALLO RITTMAN (SWRLAB)[address] [place] [address] [place] Creatinine [Mass/Vol] 0.78 mg/dL Normal 0.72-1.25 [facility] Comment on above: Performed By: #### Louisa CARRERA, LAB17 ####Box Press Operator: IZZY LIZ ([id number])[facility]ITALJak CARABALLO RITTMAN (SWRLAB)[address] [place] [address] [place] GLOMERULAR FILTRATION RATE ML/MIN/1.73 SQ M.PREDICTED 87.9 mL/min/1.73m*2 Normal >60.0 [facility] Comment on above: Result Comment: Calc ulation based on the Chronic Kidney Disease Epidemiology Collaboration (CKD-EPI) equation refit without adjustment for race Performed By: #### L DEBI, LAB17 ####Box Press Operator: IZZY ILZ ([phone])[facility]ITALJak CARABALLO RITTMAN (SWRLAB)[address] [place] [address] [place] Glucose [Mass/Vol] 93 mg/dL Normal 82-115 [facility] Comment on above: Performed By: #### L AB99, LAB17 ####Box Press Operator: IZZY LIZ ([phone])[facility]ITALJak CARABALLO RITTMAN (SWRLAB)[address] [place] [address] [place] Potassium [Moles/Vol] 3.4 mmol/L Low 3.5-5.1 [facility] Comment on above: Result Comment: [facility] potassium values may be up to 0.5 mmol/L lower than serum values. Performed By: #### L AB99, LAB17 ####Box Press Operator: IZZY LIZ ([phone])[facility]A ILYA RITTMAN (SWRLAB)[address] [place] [address] Protein [Mass/Vol] 6.6 g/dL Normal 6.4-8.3 [facility] Comment on above: Performed By: #### L AB99, LAB17 ####Box Press Operator: IZZY LIZ ([id number])[facility]A ILYA RITTMAN (SWRLAB)[address] Sodium [Moles/Vol] 130 mmol/L Low 136-145 [facility] Comment on above: Performed By: #### L AB99, LAB17 ####Box Press Operator: IZZY LIZ ([phone])[facility]A ILYA RITTMAN (SWRLAB)[address] [place] [address] Urea nitrogen [Mass/Vol] 25 mg/dL High - [facility] Comment on above: Performed By: #### L AB99, LAB17 ####Box Press Operator: IZZY LIZ ([id number])[facility]A ILYA RITTMAN (SWRLAB)[address] [place] [address] CT ABDOMEN PELVIS W CONTRAST on 04-07-2024 [...] osteoarthropathy of the left hip. There is bdle-jr-zyyjhvmu aortic and iliac atherosclerotic calcification extending into [...] DISEASE, APPY, BACK SURGERY, DREA, LITHOTRIPSY Normal [facility] CT Abdomen and Pelvis W cont [...] MD Electronically Signed Date/Time: 04/07/2024 7:23 AM [facility] [email or web address] Patient Name: DOROTEO GONG : 1940 [...] osteoarthropathy of the left hip. There is gcpf-ca-ndelcmnc aortic and iliac atherosclerotic calcification extending into the femoral vessels. [facility] EMERGENCY DEPARTMENT RADIOLOGY SYSTEM Storm Yepez MD [...] osteoarthropathy of the left hip. There is xrvd-cx-vnwnvfvv aortic and iliac atherosclerotic calcification extending into [...] Electronically Signed Date/Time: 04/07/2024 7:23 AM EST [facility] Radiology Study observation (narrative) [facility] CT Abdomen and Pelvis W cont rast IVOrdered By: Storm Yepez on 04-07-2024 [facility] Work Phone: Comprehensive metabolic 1998 panelon 04-07-2024 Albumin [Mass/Vol] 2.6 g/dL Low 3.4 - 4.8 g/dL [facility] ALP [Catalytic activity/Vol] 103 U/L 40 - 150 U/L [facility] ALT [Catalytic activity/Vol] 6 U/L [facility] - 40 U/L [facility] Anion gap [Moles/Vol] 11 mmol/L 3 - 13 mmol/L [facility] AST [Catalytic activity/Vol] 28 U/L [facility] - 34 U/L [facility] Bilirubin [Mass/Vol] 0.6 mg/dL [facility] - 1.2 mg/dL [facility] Calcium [Mass/Vol] 9.6 mg/dL 8.8 - 10. 0 mg/dL [facility] Chloride [Moles/Vol] 96 mmol/L Low 98 - 10 7 mmol/L [facility] CO2 [Moles/Vol] 23 mmol/L 23 - 31 mmol/L [facility] Creatinine [Mass/Vol] 0.78 mg/dL 0.72 - 1.25 mg/dL [facility] GFR/1.73 sq M.predicted (S/P/Bld) [Vol rate/Area] 87.9 mL/min - PINF [facility] Comment on above: Calculation based on the Chronic Kidney Disease Epidemiology Collaboration (CKD-EPI) equation refit without adjustment for race Glucose [Mass/Vol] 93 mg/dL 82 - 115 mg/dL [facility] Interpretation and review of laboratory results Abnormal [facility] Potassium [Moles/Vol] 3.4 mmol/L Low 3.5 - 5.1 mmol/L [facility] Comment on above: Plasma potassium mera ues may be up to 0.5 mmol/L lower than serum values. Protein [Mass/Vol] 6.6 g/dL 6.4 - 8.3 g/dL [facility] Sodium [Moles/Vol] 130 mmol/L Low 136 - 145 mmol/L [facility] Urea nitrogen [Mass/Vol] 25 mg/dL High 9 - 23 mg/dL [facility] ED Nursing Noteon 04-07-2024 ED Nursing Note For this RN pt was a ble to provide name, date, knows he is at [facility], and states date is Apr 08. Normal [facility] ED Nursing Note Pt with scant amount liquid emesis, physician notified and will order Zofran IV. Normal [facility] ED Nursing Note Second attempt to ca ll report to [facility], no answer. Normal [facility] ED Nursing Note Francia RN received call from [facility] stating they had entered an incorrect ETA of 0915 into [employer] and will not be here until 1015. [facility] ED Nursing Note Attempted to call report to [facility], was requested to call back in 5 min as the RN is speaking with the puttying and calking supervisor. Normal [facility] ED Nursing Note When I was drawing p t blood I noticed that patient needed to be changed. When I removed blanket prior to cleaning patient, I noticed pt left leg was shortened and rotated. Pt denies falling. Pt was not moving leg and was unable to give explanation. was advised of findings. Normal [facility] ED Nursing Note Pt. Arrived to ED vi a EMS from [facility]. The facility reported that patient has had a mental status change and showing increased agitation with staff. Pt. A&O x 4 upon assessment. Pt. Currently compliant, cooperative and calm upon arrival. Normal [facility] ED Provider Noteon ED Provider Note Patient endorsed to me pending results of CT abdomen pelvis, that were concerning for obstructive uropathy, likely secondary to prostate enlargement, unable to exclude malignancy. Mild distal left hydroureter. Discussion had with the patient, and he has requested to be admitted at [place]. Patient care discussed with Dr. Enrique, hospitalist at [facility], who has agreed to accept the patient for admission. Donald Benitez MD 04/07/24 0753 [facility] ED Provider Note EMERGENCY DEPARTMENT ENCOUNTER Pt [...] Stability: Unknown (more content not included)... Normal [facility] LACTIC ACID WITH REFLEXon Lactate [Moles/Vol] 1.3 mmol/L Normal 0.5-2.2 [facility] Comment on above: Performed By: #### L [id number] ####Box Press Operator: IZZY LIZ ([phone])[facility] NORTHILYAROCKEFELLER WAR DEMONSTRATION HOSPITALLEANNA ([facility] NORWALKLAB)[address] [place] [address] LIPASEon 04-07-2024 Lipase [Catalytic activity/Vol] 25 U/L Normal <55 [facility] Comment on above: Performed By: #### L AB99, LAB17 ####Box Press Operator: IZZY LIZ ([id number])[facility] [employer]LEANNA ([employer])[address] [place] [address] Laboratory - Chemistry and C hemistry - challengeon 04-07-2024 Lactate [Moles/Vol] 1.3 mmol/L 0.5 - 2. 2 mmol/L [facility] Lipase [Catalytic activity/Vol] 25 U/L NINF - 55 U/L [facility] Lipase [Catalytic activity/V ol]on 04-07-2024 Interpretation and review of laboratory results Normal [facility] No Panel Informationon 04-07 Interpretation and review of laboratory results Normal [facility] URINE CULTUREon 04-07-2024 Bacteria identified Cx Nom (U) URINE CULTURE Reference Multiple species present; probable contamination; repeat suggested [ S = SUSCEPTIBLE R = RESISTANT I = INTERMEDIATE S-DD = Susceptible-dose dependent NS = Non-susceptible NO = No Interpretation ] Normal [facility]S Comment on above: Performed By: #### L [id number] ####Box Press Operator: IZZY LIZ ([id number])[facility] (SACLAB)[address]#### [id number] ####Box Press Operator: IZZY LIZ ([phone])[facility] (SWRLAB)[address] [place] [address] Urinalysis complete panel (U )Ordered By: Tono Daily on 04-07-2024 Bacteria LM.HPF (Urine sed) [#/Area] Many Abnormal Negative /HPF [facility] Bilirubin Ql (U) Negative Negative mg/dL [facility] Clarity (U) Extra Turbid Abnormal Clear [facility] Healt h Color (U) Dark Yellow Abnormal Lt. Yellow [facility] Epithelial cells.squamous LM.HPF (Urine sed) [#/Area] 0-2 [facility] Glucose Ql (U) Normal Normal (<70) mg/dL [facility] Hemoglobin Ql (U) 0.03 mg/dL Abnormal Negative [facility] Interpretation and review of laboratory results Abnormal [facility] Ketones (U) [Mass/Vol] Trace Abnormal Negat stephen mg/dL [facility] Leukocyte esterase Test strip Ql (U) 500 Abnormal Negative Pennie/uL [facility] Mucus LM.HPF (Urine sed) [#/Area] Moderate Abnormal Negative /LPF [facility] Nitrite Ql (U) Negative Negative [facility] th pH (U) 7.5 [pH] 5.0 - 8.0 pH [facility] Protein (U) [Mass/Vol] 200 mg/dL Abnormal Negative [facility] RBC LM.HPF (Urine sed) [#/Area] 0-2 [facility] Specific gravity (U) [Rel density] 1.017 1.005 - 1.030 [facility] Urobilinogen (U) [Mass/Vol] 3 mg/dL Abnormal Normal (0-1) [facility] Volume, Urine 12 mL [facility] WBC LM.HPF (Urine sed) [#/Area] /[HPF] Abnormal [facility] XR Hip - left 3 Viewson 03-17 Severe degenerative narrowing of the left hip joint with uyfx-yv-otib contact and flattening of the left femoral head. Overall changes have worsened compared to 02/22/2022. Osteopenia. Report Dictated on Electronically Signed By: Cristobal Al MD Electronically Signed Date/Time: 04/07/2024 3:43 PM EST [facility] Patient Name: DOROTEO GONG : 1940 Exam Date/Time: 04/07/2024 13:11 Procedure: XR HIP 2 OR 3 VW LEFT Ordering Provider: RODRIGUZE PADMAJA Reason For Exam: Leg pain, chronic (Ped 0-17y) Clinical indication: Leg pain. COMPARISON: 02/22/2022. TECHNIQUE: AP and frog-leg lateral views were obtained of the left hip. Additionally, an AP view was obtained of the pelvis. FINDINGS: Three views of the left hip shows no acute fracture or dislocation. There are severe degenerative narrowing involving the left hip joint with xdrk-lx-ubtf contact and flattening of the left femoral head. Overall changes appear worsened compared to 2021. Alignment is unchanged. The patient is status post a right total hip arthroplasty. Status post instrumented arthrodesis of the lower lumbar spine. Bones are osteopenic. Vascular calcifications are noted. [facility] Mary Anne Al MD - 04/07/2024 Patient [...] narrowing involving the left hip joint with rrib-hn-tlzj contact and flattening of the left femoral head. Overall changes appear worsened compared to 2021. Alignment is unchanged. The patient is status post a right total hip arthroplasty. Status post instrumented arthrodesis of the lower lumbar spine. Bones are osteopenic. Vascular calcifications are noted. IMPRESSION: Severe degenerative narrowing of the left hip joint with sbld-ub-eidk contact and flattening of the left femoral head. Overall changes have worsened compared to 02/22/2022. Osteopenia. Report Dictated on Electronically Signed By: Cristobal Al MD Electronically Signed Date/Time: 04/07/2024 3:43 PM EST [facility] Radiology Study observation (narrative) [facility] - left 3 ViewsOrdered By: Mary Anne Al on 04-07-2024 [employer] Work Phone: Office Visiton 02-27-2024 Follow-up visit [id number] Crystal Gong 1940 M Date Provider Department Center 02/27/2024 [facility] UR None Family History Problem Relation Age of Onset Heart failure Mother Diabetes Mother Family Status - Relation Status Age at Mother Level of Service:26892 [place] OFFICE/OUTPATIENT ESTABLISHED MOD [facility] 30 MIN Reason for Visit and Comments: Benign Prostatic Hypertrophy [[id number]] - Chronic indwelling catheter Changes performed by [facility] Progress Noteon 02-27-2024 Progress Note Kathy Ordonez MD 02/27/2024 at 11:23 AM Office follow up PATIENT NAME: Doroteo Gong DATE OF : 1940 TODAY'S DATE: 02/27/2024 CHIEF COMPLAINT: Chief Complaint Patient presents with Benign Prostatic Hypertrophy Chronic indwelling catheter Changes performed by [facility] Subjective: Mr. Gong is a 83 y.o. [...] morning. 11 (more content not included)... Normal [facility] 36on 02-14-[address] [place] [address] Palliative Care Site of Care: [facility] Chief Complaint: Doroteo Gong is a 83 y.o. male with chief complaint of debility,diarrhea Assessment/Plan Goals of care Pt is alert and oriented x 2 today. 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 Pemberton Symptom Assessment Score Pemberton Score Pain Score 0 Tiredness Score 3 Nausea Score 0 Depression Score 0 Anxiety Score 0 Drowsiness Score 0 Anorexia Score (0= eating well,10= not eating) 2 Wellbeing Score (10= worst sense of well-being) 2 Constipation 0 Dyspnea Score (0= no shortness of breath) 2 Assessed By: patient Goals of care Goals of care: Improve or Maintain Function/Quality of Life, Preserve Milligan/Autonomy/C ontrol, and Continue Current Management Code status: full code Advance directives: Health Care Proxy, Living Will Surrogate: Extended Family Prognosis: unknown Spiritual assessment: No spiritual distress identified Bereavement and grief: Grief Issues Identified Social history: Marital status: single Children: none Living status: group home Advance Care Planning: The patient has capacity to make healthcare and advanced care planning decisions with the help of nephew The patient's identified surrogate decision maker is Extended Family. Discussion participants: pt and provider Advance Care Planning Documents: Healthcare Power of Hot Plate Press Operator: Yes Financial Power of Hot Plate Press Operator: Yes Living Will: To Be Determined [...] Prescribing (If (more content not included)... 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 Pemberton Symptom Assessment Score Pemberton Score Pain Score 0 Tiredness Score 3 Nausea Score 0 Depression Score 0 Anxiety Score 0 Drowsiness Score 0 Anorexia Score (0= eating well,10= not eating) 2 Wellbeing Score (10= worst sense of well-being) 2 Constipation 0 Dyspnea Score (0= no shortness of breath) 2 Assessed By: patient Goals of care Goals of care: Improve or Maintain Function/Quality of Life, Preserve Milligan/Autonomy/C ontrol, and Continue Current Management Code status: full code Advance directives: Health Care Proxy, Living Will Surrogate: Extended Family Prognosis: unknown Spiritual assessment: No spiritual distress identified Bereavement and grief: Grief Issues Identified Social history: Marital status: single Children: none Living status: group home Advance Care Planning: The patient has capacity to make healthcare and advanced care planning decisions with the help of nephew The patient's identified surrogate decision maker is Extended Family. Discussion participants: pt and provider Advance Care Planning Documents: Healthcare Power of Hot Plate Press Operator: Yes Financial Power of Hot Plate Press Operator: Yes Living Will: To Be Determined [...] schwartz Musculoskeletal: (more content not included)... Normal [facility] Progress Noteon 08-30-2023 Progress Note [facility] Palliative Care Site of Care: [facility] Chief Complaint: Doroteo [...] bedside regarding see above. Follow-up: none [facility] [place] [place] DOROTEO GONG ([id number]) 1940 M Date Time Provider Department 08/10/23 ROOPA MADERA [facility] [place] During your visit today, we recorded the following information about you: Nguyen Senior MA 08/10/2023 11:11 AM Signed Pt called asking if he could talk to you regard hip and knee surgery. Wants to know if you could refer him to someone else. Nguyen Senior [facility] Roopa Madera MD 08/10/2023 11:18 AM Signed Called patient back at 11:15 AM. Got answering machine. Voicemail full. Will attempt to call back later Roopa Madera MD 08/10/2023 1:46 PM Signed If patient calls back let him know I tried to call 3 times. Each time got the answering machine but the answer machine is full. Nguyen Senior MA 08/13/2023 4:39 PM Signed Tried calling pt, no answer and no machine. Also tried Solange (alternate person) phone disconnected. Nguyen Ghosh-Rocco, INFORMATION TECHNOLOGY DIRECTOR Allergies As of Date: 08/10/2023 Noted Allergy [...] tablet GUAIFENESIN TABS as needed GUAIFENESIN TABS [id number] Anny Masterson VARNISH INSPECTOR-MEDICAL BILLING ASSOCIATE - acetaminophen 650 mg CR tablet Take [...] Encounter Status:Closed by ROOPA MADERA on 08/10/23 [facility] 08-06-2023 36 Facility called to r /s appt for 08/06/23 due to not setting up transportation. He is now scheduled for 09/20/23 in [place] with [facility]ER[facility] 07-18-2023 36 No sooner at [facility] Phone call to patient Memory full Deloris Valiente [facility] 07-12-2023 36 Name of Caller: Crystal is Contact Reason for Appointment: pt is asking if he can be seen sooner at the same office. Please assist. Thank you Office Name: urology [facility] Progress Noteon 07-12-2023 Progress Note [facility] Site of Care: [facility] Chief Complaint: Doroteo [...] his only relative - he lives in [facility] At risk for constipation Debility and use [...] to move to another facility called [facility]. He would prefer to move back to [...] other ROS are negative except as noted. Pemberton Symptom Assessment Score Pemberton Score Pain Score 0 Tiredness Score 0 Nausea Score 0 Depression Score 0 Anxiety Score 0 Drowsiness Score 0 Anorexia Score (0= eating well,10= not eating) 0 Wellbeing Score (10= worst sense of well-being) 0 Constipation 0 Dyspnea Score (0= no shortness of breath) 0 Assessed By: patient Goals of care Goals of care: move to [facility] facility Code status: full code Advance directives: Health Care Proxy Surrogate: Extended Family Prognosis: unknown Spiritual assessment: No spiritual distress identified Bereavement and grief: Grief Issues Not Identified Social history: Marital status: single, never Children: 0 Living status: alone 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 Discussion participants: pt and provider Interventions reviewed: CPR and life supports Advance Care Planning Documents: Healthcare Power of Hot Plate Press Operator: Yes Financial Power of Hot Plate Press Operator: No Living Will: Yes Code Status: [...] Outpatient Med (more content not included)... Normal [facility] 36on 07-03-2023 36 Pt lvm wanting d/t/l of appt. I called the pt and the voice mail box was full, so unable to lvm Normal [facility] Progress Noteon 05-31-2023 Progress Note [facility] Site of Care: [facility] Chief Complaint: Doroteo [...] his only relative - he lives in [facility] At risk for constipation Debility and use [...] Subjective: HPI: 82 year old male in [facility] for therapy seen today in his room. [...] have 1 nephew but he lives in [facility] and not able to live up here [...] other ROS are negative except as noted. 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 Discussion participants (more content not included)... Normal [facility] Office Visiton 05-21-2023 Follow-up visit [id number] Crystal Gong is Nurys 1940 M Date Provider Department Center 05/21/2023 [id number]-VJOILANA GRANT MGMIT [facility] None Family History Problem Relation Age of Onset Heart failure Mother Diabetes Mother Family Status - Relation Status Age at Mother Level of Service:67420 [place] OFFICE/OUTPATIENT ESTABLISHED MOD MDM 30 MIN Reason for Visit and Comments: Follow-up [233977] Sleep Apnea [348] Asthma [148] - RICKY Sx -Clearance For Knee Replacement [facility] PATINSon 05-21-2023 PATINS YOUR APPOINTMENT TOJey CASTRO WAS WITH THE [facility] LUNG NODULE [facility], COPD CLINIC, PULMONARY AND SLEEP MEDICINE OFFICE. PLEASE CALL OUR OFFICE AT [phone] for our [place] office location or [phone] for our [place] location, IF YOU HAVE NOT RECEIVED YOUR [...] to make improvements. COVID-19 VACCINATION INFORMATION: PH. [phone] HEALTH.ORG/CORONAVIRUS/ VACCINE [facility] Central Scheduling [phone] [facility] Sleep Scheduling [phone] Normal [facility] Progress Noteon 05-21-2023 Progress Note [facility] Pulmonary Medicine [address] [facility] [address] Dept: [phone] Dept Loc: [phone] Date of Service: 05/21/2023 Visit type: An [...] Negative fo (more content not included)... Normal [facility] 36on 05-11-2023 36 Yasemin with [facility] facility states the patient received a letter from us asking for him to call and schedule an appointment to be seen. Pt is scheduled for 08/06/23 for 6 mos follow up appt. Reconfirmed the appt d/t/l. Yasemin indicated the pt is doing well and didn't need to be seen any time sooner. Normal [facility] [place] [place] DOROTEO GONG ([id number]) 1940 M Date Time Provider Department 04/03/23 ROOPA MADERA [facility] [place] During your visit today, we recorded the following information about you: Kalyani Silveira 04/03/2023 3:47 PM Signed Harshil carr nephew called today. [phone] Reason for call: patient is in [facility] and feels he is getting pneum. The nephew told him he would call and see if you can call anything in or if you could call him [phone]. They dont have a doctor on staff [...] Unknown Last Office Visit Date: 10/23/2022 Last [facility] Health Visit: Visit date not found Future [...] tablet GUAIFENESIN TABS as needed GUAIFENESIN TABS [id number] Anny Masterson VARNISH INSPECTOR-MEDICAL BILLING ASSOCIATE - acetaminophen 650 mg CR tablet Take [...] Encounter Status:Closed by KALYANI SILVEIRA on 04/03/23 [facility] Absolute lymphocyte countOrd ered By: Radha Schofield on 03-21-2023 Lymphocytes Auto (Unsp spec) [#/Vol] 2.57 10*3/uL 0.83-4.51 [facility] Basophil percentageOrdered B y: Radha Schofield on 03-21-2023 Basophils/100 WBC (Bld) 0.8 % 0-1 [facility] Chloride [Moles/Vol] 103 mmol/L 98-107 [facility] Eosinophils/100 WBC (Bld) 3.4 % 0-5 [facility] Glucose [Mass/Vol] 95 mg/dL 74-106 [facility] Neutrophils (Bld) [#/Vol] 5.3 10*3/uL 2.0-7.7 [facility] Neutrophils/100 WBC (Bld) 55.4 % 47-70 [facility] Potassium [Moles/Vol] 3.9 mmol/L 3.5-5.1 [facility] Sodium [Moles/Vol] 135 mmol/L 136-145 [facility] WBC (Bld) [#/Vol] 9.5 10*3/uL 4.4-11.0 [facility] Blood erythrocytes count (nu mber/volume)Ordered By: Radha Schofield on 03-21-2023 RBC (Bld) [#/Vol] 4.28 10*6/uL 4.6-6.2 [facility] Blood hemoglobin measurement (mass/volume)Ordered By: Radha Schofield on 03-21-2023 Hemoglobin (Bld) [Mass/Vol] 12.5 g/dL 13.0-16.5 [facility] Blood lymphocytes/100 leukoc ytesOrdered By: Radha Schofield on 12-06-2023 Lymphocytes/100 WBC (Bld) 27.0 % 19-41 [facility] Blood monocytes/100 leukocyt esOrdered By: Radha Schofield on 03-21-2023 Monocytes/100 WBC (Bld) 11.6 % 0-10 [facility] Blood platelet mean volumeOr dered By: Radha Schofield on 03-21-2023 Platelet mean volume (Bld) [Entitic vol] 9.3 fL 6.2-12.0 [facility] Determination of erythrocyte mean corpuscular volume (MCV)Ordered By: Radha Schofield on 03-21-2023 MCV (RBC) [Entitic vol] 91.4 fL 80-94 [facility] Hematocrit Auto (Bld) [Volum e fraction]Ordered By: Radha Schofield on 03-21-2023 Hematocrit (Bld) [Volume fraction] 39.1 % 40-54 [facility] Laboratory - Chemistry and C hemistry - challengeOrdered By: Radha Schofield on 03-21-2023 CO2 [Moles/Vol] 26.0 mmol/L 21.0-32.0 [facility] Urea nitrogen/Creatinine [Mass ratio] 19.0 mg/mg 10-20 [facility] Laboratory - Hematology and Cell countsOrdered By: Radha Schofield on 03-21-2023 Erythrocyte distribution width (RBC) [Entitic vol] 45.1 fL 35.1-43.9 [facility] Erythrocyte distribution width (RBC) [Ratio] 13.4 % 11.6-14.6 [facility] Immature granulocytes/100 WBC (Bld) 1.800 % 0.0-0.9 [facility] Comment on above: IG% - Immature Granu locytes (promyelocytes, myelocytes and metamyelocytes) > 1% indicates that a LEFT SHIFT is Present. MCH (RBC) [Entitic mass] 29.2 pg 27.0-32.0 [facility] Nucleated RBC/100 WBC (Bld) [Ratio] 0 % 0-5 [facility] MCHC Auto (RBC) [Mass/Vol]Or dered By: Radha Schofield on 03-21-2023 MCHC (RBC) [Mass/Vol] 32.0 g/dL 32-36 [facility] No Panel InformationOrdered By: Radha Schofield on 03-21-2023 Estimated Creatinine Clearance Calc 39.58 ml/min [facility] Estimated GFR (MDRD) Amer 156 mL/min >60 [facility] Comment on above: GFR Calc Estimated GFR (MDRD) Non-Af Amer 129 mL/min >60 [facility] Comment on above: Non- GFR Calc Platelets bldOrdered By: Whit Schofield on 03-21-2023 Platelets (Bld) [#/Vol] 497 10*3/uL 150-450 [facility] Serum or plasma calcium vinicio urement (mass/volume)Ordered By: Radha Schofield on 03-21-2023 Calcium [Mass/Vol] 9.1 mg/dL 8.5-10.1 [facility] Serum or plasma creatinine m easurement (mass/volume)Ordered By: Radha Schofield on 03-21-2023 Creatinine [Mass/Vol] 0.63 mg/dL 0.70-1.30 [facility] Comment on above: The validity of the calculated GFR & GFRAA in patients over 70 years has not been determined. Clinical correlation is essential. Serum or plasma urea nitroge n measurement (mass/volume)Ordered By: Radha Schofield on 03-21-2023 Urea nitrogen [Mass/Vol] 12 mg/dL 7-18 [facility] Thin prep Papanicolaou smear with manual screeningOrdered By: Radha Schofield on 03-21-2023 Thin prep Papanicolaou smear with manual screening 6 5-15 [facility] Basophil percentageOrdered B y: Zechariah Post on 03-18-2023 Basophil percentage 25-50 SEEN /hpf 0-5 [facility] Bilirubin Test strip Ql (U)O rdered By: Zechariah Post on 03-18-2023 Bilirubin Ql (U) Negative Negative [facility] Culture, urineOrdered By: Pedro Post on 03-18-2023 Bacteria identified Cx Nom (U) ESBL Klebsiella pneumoniae pne [facility] Ketones Test strip Ql (U)Ord ered By: Zechariah Post on 03-18-2023 Ketones Ql (U) Negative Negative [facility] Mucus LM Ql (Urine sed)Order ed By: Zechariah Post on 03-18-2023 Mucus Ql (Urine sed) 0 SEEN /hpf [facility] Nitrite Test strip Ql (U)Ord ered By: Zechariah Post on 03-18-2023 Nitrite Ql (U) Positive Negative [facility] Protein Test strip Ql (U)Ord ered By: Zechariah Post on 03-18-2023 Protein Ql (U) 100 mg/dl Negative [facility] Squamous epithelial cells de tection in urine sediment by light microscopyOrdered By: Zechariah Post on 03-18-2023 Epithelial cells.squamous LM Ql (Urine sed) 0 SEEN /hpf 0-5 [facility] Urine blood detectionOrdered By: Zechariah Post on 03-18-2023 RBC Ql (U) 50 /ul Negative [facility] RBC Ql (U) 0-5 SEEN /hpf 0-5 [facility] Urine clarityOrdered By: Brina Post on 03-18-2023 Clarity (U) Cloudy Clear [facility] Urine color determinationOrd ered By: Zechariah Post on 03-18-2023 Color (U) Yellow Yellow [facility] Urine glucose detectionOrder ed By: Zechariah Post on 03-18-2023 Glucose Ql (U) Normal mg/dl Normal [facility] Urine leukocyte esterase det ection by dipstickOrdered By: Zechariah Post on 03-18-2023 Leukocyte esterase Test strip Ql (U) 500 /ul Negative [facility] Urine pHOrdered By: Zechariah ibarra on 03-18-2023 pH (U) 6.0 [pH] 5.0 - 8.0 [facility] Urine sediment bacteria coun t by microscopy (number/high power field)Ordered By: Zechariah Post on 03-18-2023 Bacteria LM.HPF (Urine sed) [#/Area] 1 /[HPF] None Seen [facility] Urine specific gravity measu rementOrdered By: Zechariah Post on 03-18-2023 Specific gravity (U) [Rel density] 1.015 1.002-1.030 [facility] Urobilinogen Auto test strip Ql (U)Ordered By: Zechariah Post on 03-18-2023 Urobilinogen Ql (U) Normal mg/dl Normal [facility] Bacteria identified Cx Nom ( U)Ordered By: Jennifer August on 02-17-2023 Interpretation and review of laboratory results Abnormal [facility] Basic metabolic 1998 panelon 02-17-2023 Anion gap [Moles/Vol] 9 mmol/L 3 - 13 mmol/L [facility] Calcium [Mass/Vol] 9.4 mg/dL 8.4 - 10. 4 mg/dL [facility] Chloride [Moles/Vol] 98 mmol/L 98 - 10 7 mmol/L [facility] CO2 [Moles/Vol] 27 mmol/L 22 - 30 mmol/L [facility] Creatinine [Mass/Vol] 0.70 mg/dL 0.66 - 1.25 mg/dL [facility] GFR/1.73 sq M.predicted MDRD (S/P/Bld) [Vol rate/Area] - [facility] Comment on above: Calculation based on the Chronic Kidney Disease Epidemiology Collaboration (CKD-EPI) equation refit without adjustment for race Glucose [Mass/Vol] 99 mg/dL 70 - 100 mg/dL [facility] Interpretation and review of laboratory results Abnormal [facility] Potassium [Moles/Vol] 4.5 mmol/L 3.5 - 5.1 mmol/L [facility] Sodium [Moles/Vol] 135 mmol/L 135 - 145 mmol/L [facility] Urea nitrogen [Mass/Vol] 24 mg/dL High 9 - 20 mg/dL [facility] Laboratory - Microbiology an d Antimicrobial susceptibilityOrdered By: Jennifer August on 02-17-2023 Bacteria identified Cx Nom (U) >100,000 CFU/mL Proteus mirabilis Abnormal [facility] metabolic 1998 panelon 02-16-2023 Anion gap [Moles/Vol] 9 mmol/L 3 - 13 mmol/L [facility] Calcium [Mass/Vol] 9.4 mg/dL 8.4 - 10. 4 mg/dL [facility] Chloride [Moles/Vol] 100 mmol/L 98 - 10 7 mmol/L [facility] CO2 [Moles/Vol] 25 mmol/L 22 - 30 mmol/L [facility] Creatinine [Mass/Vol] 0.66 mg/dL 0.66 - 1.25 mg/dL [facility] GFR/1.73 sq M.predicted MDRD (S/P/Bld) [Vol rate/Area] - PINF [facility] Comment on above: Calculation based on the Chronic Kidney Disease Epidemiology Collaboration (CKD-EPI) equation refit without adjustment for race Glucose [Mass/Vol] 120 mg/dL High 70 - 100 mg/dL [facility] Interpretation and review of laboratory results Abnormal [facility] Potassium [Moles/Vol] 4.4 mmol/L 3.5 - 5.1 mmol/L [facility] Sodium [Moles/Vol] 134 mmol/L Low 135 - 145 mmol/L [facility] Urea nitrogen [Mass/Vol] 21 mg/dL High 9 - 20 mg/dL [facility] CNPNon 02-16-2023 CNPN [place] [place] DOROTEO GONG ([id number]) 1940 M Date Time Provider Department 02/16/23 ROOPA MADERA [facility] [place] During your visit today, we recorded the following information about you: Maximiliano Draper MA 02/16/2023 9:50 AM Signed Kenia ARROYO from [facility] called. They were calling patient to come out to the home. Patient said his left leg was going out and he was going to hospital, so he better not have therapy and hung up phone. Patient went to [facility]. Records are in Care Everywhere. Maximiliano Draper [...] tablet GUAIFENESIN TABS as needed GUAIFENESIN TABS [id number] Anny Masterson VARNISH INSPECTOR-MEDICAL BILLING ASSOCIATE - acetaminophen 650 mg CR tablet Take [...] Status:Closed by MAXIMILIANO DRAPER on 02/19/23 Normal [facility] Basic metabolic 1998 panelon 02-15-2023 Anion gap [Moles/Vol] 9 mmol/L 3 - 13 mmol/L [facility] Calcium [Mass/Vol] 9.5 mg/dL 8.4 - 10. 4 mg/dL [facility] Chloride [Moles/Vol] 102 mmol/L 98 - 10 7 mmol/L [facility] CO2 [Moles/Vol] 25 mmol/L 22 - 30 mmol/L [facility] Creatinine [Mass/Vol] 0.64 mg/dL Low 0.66 - 1.25 mg/dL [facility] GFR/1.73 sq M.predicted MDRD (S/P/Bld) [Vol rate/Area] - PIN[facility] Comment on above: Calculation based on the Chronic Kidney Disease Epidemiology Collaboration (CKD-EPI) equation refit without adjustment for race Glucose [Mass/Vol] 120 mg/dL High 70 - 100 mg/dL [facility] Interpretation and review of laboratory results Abnormal [facility] Potassium [Moles/Vol] 4.4 mmol/L 3.5 - 5.1 mmol/L [facility] Sodium [Moles/Vol] 135 mmol/L 135 - 145 mmol/L [facility] Urea nitrogen [Mass/Vol] 22 mg/dL High 9 - 20 mg/dL [facility] 25-hydroxyvitamin D3 [Mass/V ol]on 02-14-2023 Interpretation and review of laboratory results Abnormal [facility] Therapy is based on measurement of Total 25-OHD with the following classification levels: Less than 20 ng/mL: Indicative of Vit D deficiency 20-30 ng/mL: Suggests Vit D insufficiency Optimal: Greater than or equal to 30 ng/mL Test performed by [employer] Competitive Immunoassay, measuring Total Vitamin D, not individual fractions. [facility] Basic metabolic 1998 panelon 02-14-2023 Anion gap [Moles/Vol] 10 mmol/L 3 - 13 mmol/L [facility] Calcium [Mass/Vol] 9.2 mg/dL 8.4 - 10. 4 mg/dL [facility] Chloride [Moles/Vol] 104 mmol/L 98 - 10 7 mmol/L [facility] CO2 [Moles/Vol] 22 mmol/L 22 - 30 mmol/L [facility] Creatinine [Mass/Vol] 0.71 mg/dL 0.66 - 1.25 mg/dL [facility] GFR/1.73 sq M.predicted MDRD (S/P/Bld) [Vol rate/Area] - [facility] Comment on above: Calculation based on the Chronic Kidney Disease Epidemiology Collaboration (CKD-EPI) equation refit without adjustment for race Glucose [Mass/Vol] 126 mg/dL High 70 - 100 mg/dL [facility] Interpretation and review of laboratory results Abnormal [facility] Potassium [Moles/Vol] 4.6 mmol/L 3.5 - 5.1 mmol/L [facility] Sodium [Moles/Vol] 136 mmol/L 135 - 145 mmol/L [facility] Urea nitrogen [Mass/Vol] 17 mg/dL 9 - 20 mg/dL [facility] CBC W Auto Differential pane l (Bld)Ordered By: Roopa Randall on 02-14-2023 Basophils (Bld) [#/Vol] 0.0 10*3/uL 0.0 - 0.2 10*3/uL [facility] Basophils/100 WBC (Bld) 0.3 % 0.0 - 2.0 % [facility] Eosinophils (Bld) [#/Vol] 0.0 10*3/uL 0.0 - 0.5 10*3/uL [facility] Eosinophils/100 WBC (Bld) 0.1 % Low 1.0 - 6.0 % [facility] Erythrocyte distribution width (RBC) [Ratio] 13.9 % 11.5 - 14.5 % [facility] Hematocrit (Bld) [Volume fraction] 39.0 % Low 40.0 - 52.0 % [facility] Hemoglobin (Bld) [Mass/Vol] 12.7 g/dL Low 13.0 - 18.0 g/dL [facility] Interpretation and review of laboratory results Abnormal [facility] Lymphocytes (Bld) [#/Vol] 1.8 10*3/uL 1.0 - 4.3 10*3/uL [facility] Lymphocytes/100 WBC (Bld) 18.7 % Low 20.0 - 40.0 % [facility] MCH (RBC) [Entitic mass] 30.0 pg 26. 0 - 34.0 pg [facility] MCHC (RBC) [Mass/Vol] 32.5 % 32.0 - 36.0 % [facility] MCV (RBC) [Entitic vol] 92.2 fL 80.0 - 98.0 fL [facility] Monocytes (Bld) [#/Vol] 0.7 10*3/uL 0.0 - 0.8 10*3/uL [facility] Monocytes/100 WBC (Bld) 7.3 % 2.0 - 10.0 % [facility] Neutrophils (Bld) [#/Vol] 7.2 10*3/uL High 1.8 - 7.0 10*3/uL [facility] Neutrophils/100 WBC (Bld) 73.6 % 40.0 - 80.0 % [facility] Nucleated RBC/100 WBC (Bld) [Ratio] 0.0 % [facility] Platelet mean volume (Bld) [Entitic vol] 7.7 fL 7.4 - 12.4 fL [facility] Platelets (Bld) [#/Vol] 406 10*3/uL 140 - 440 10*3/uL [facility] RBC (Bld) [#/Vol] 4.23 10*6/uL Low 4.40 - 5.9 0 10*6/uL [facility] WBC (Bld) [#/Vol] 9.8 10*3/uL 3.6 - 10.7 10*3/uL [facility] Cobalamin (Vitamin B12) [Mas s/Vol]on 02-14-2023 Interpretation and review of laboratory results Abnormal [facility] Folate [Mass/Vol]on 02-15-20 23 Interpretation and review of laboratory results Normal [facility] Free T4 [Mass/Vol]on 023 Free T4 Dialysis [Mass/Vol] 1.01 ng/dL 0.78 - 2.19 ng/dL [facility] Interpretation and review of laboratory results Normal [facility] Laboratory - Chemistry and C hemistry - challengeon 02-14-2023 25-hydroxyvitamin D3 [Mass/Vol] ng/mL Low 30 - 100 ng/mL [facility] Cobalamin (Vitamin B12) [Mass/Vol] 974 pg/mL High 239 - 931 pg/mL [facility] Folate [Mass/Vol] 5.0 ng/mL 2.9 - PINF ng/mL [facility] TSH Qn 0.616 m[IU]/L [facility] No Panel Informationon 02-14 No evidence of [...] filling and normal phasic and spontaneous flow. [employer] Details A boyd scale, color Doppler imaging [...] fabiana in left leg. . CV CPACS [facility] TSH Qnon 02-14-2023 Interpretation and review of laboratory results Normal [facility] Urinalysis complete panel (U )Ordered By: Candi Zamorano on 02-14-2023 Bacteria LM.HPF (Urine sed) [#/Area] Moderate Abnormal Negative /HPF [facility] Bilirubin Ql (U) Negative Negative mg/dL [facility] Clarity (U) Extra Turbid Abnormal Clear [facility] h Color (U) Light Yellow Lt. Yellow [facility] Epithelial cells.squamous LM.HPF (Urine sed) [#/Area] 0-2 [facility] Glucose Ql (U) Normal Normal (<70) mg/dL [facility] Hemoglobin Ql (U) 1.0 mg/dL Abnormal Negative [facility] Hyaline casts Auto (Urine sed) [#/Area] Negative Negative /LPF [facility] Interpretation and review of laboratory results Abnormal [facility] Ketones (U) [Mass/Vol] Negative Negat stephen mg/dL [facility] Leukocyte esterase Test strip Ql (U) 500 Abnormal Negative Pennie/uL [facility] Mucus LM.HPF (Urine sed) [#/Area] Few Negative /LPF [facility] Nitrite Ql (U) Positive Abnormal Negative [facility] pH (U) 7.5 [pH] 5.0 - 8.0 pH [facility] Protein (U) [Mass/Vol] 100 mg/dL Abnormal Negative [facility] RBC LM.HPF (Urine sed) [#/Area] 6-10 Abnormal [facility] Specific gravity (U) [Rel density] 1.013 1.005 - 1.030 [facility] Urobilinogen (U) [Mass/Vol] Normal Normal (0-1) mg/dL [facility] WBC LM.HPF (Urine sed) [#/Area] /[HPF] Abnormal [facility] Basic metabolic 1998 panelon 02-13-2023 Anion gap [Moles/Vol] 10 mmol/L 3 - 13 mmol/L [facility] Calcium [Mass/Vol] 8.9 mg/dL 8.4 - 10. 4 mg/dL [facility] Chloride [Moles/Vol] 106 mmol/L 98 - 10 7 mmol/L [facility] CO2 [Moles/Vol] 22 mmol/L 22 - 30 mmol/L [facility] Creatinine [Mass/Vol] 0.89 mg/dL 0.66 - 1.25 mg/dL [facility] GFR/1.73 sq M.predicted MDRD (S/P/Bld) [Vol rate/Area] 85.0 mL/min/{1.73_m2} - PINF [facility] Comment on above: Calculation based on the Chronic Kidney Disease Epidemiology Collaboration (CKD-EPI) equation refit without adjustment for race Glucose [Mass/Vol] 114 mg/dL High 70 - 100 mg/dL [facility] Interpretation and review of laboratory results Abnormal [facility] Potassium [Moles/Vol] 4.3 mmol/L 3.5 - 5.1 mmol/L [facility] Sodium [Moles/Vol] 138 mmol/L 135 - 145 mmol/L [facility] Urea nitrogen [Mass/Vol] 17 mg/dL 9 - 20 mg/dL [facility] CBC W Auto Differential pane l (Bld)Ordered By: Erica Marrero on 02-13-2023 Basophils (Bld) [#/Vol] 0.1 10*3/uL 0.0 - 0.2 10*3/uL [facility] Basophils/100 WBC (Bld) 0.8 % 0.0 - 2.0 % [facility] Eosinophils (Bld) [#/Vol] 0.4 10*3/uL 0.0 - 0.5 10*3/uL [facility] Eosinophils/100 WBC (Bld) 4.0 % 1.0 - 6.0 % [facility] Erythrocyte distribution width (RBC) [Ratio] 13.8 % 11.5 - 14.5 % [facility] Hematocrit (Bld) [Volume fraction] 38.8 % Low 40.0 - 52.0 % [facility] Hemoglobin (Bld) [Mass/Vol] 13.1 g/dL 13.0 - 18.0 g/dL [facility] Immature granulocytes (Bld) [#/Vol] 0.0 10*3/uL NINF - 0.0 10*3/uL [facility] Immature granulocytes/100 WBC (Bld) 0.3 % High NINF - 0.0 % [facility] Interpretation and review of laboratory results Abnormal [facility] Lymphocytes (Bld) [#/Vol] 2.1 10*3/uL 1.0 - 4.3 10*3/uL [facility] Lymphocytes/100 WBC (Bld) 21.6 % 20.0 - 40.0 % [facility] MCH (RBC) [Entitic mass] 30.4 pg 26. 0 - 34.0 pg [facility] MCHC (RBC) [Mass/Vol] 33.8 % 32.0 - 36.0 % [facility] MCV (RBC) [Entitic vol] 90.0 fL 80.0 - 98.0 fL [facility] Monocytes (Bld) [#/Vol] 1.2 10*3/uL High 0.0 - 0.8 10*3/uL [facility] Monocytes/100 WBC (Bld) 12.8 % High 2.0 - 10.0 % [facility] Neutrophils (Bld) [#/Vol] 5.8 10*3/uL 1.8 - 7.0 10*3/uL [facility] Neutrophils/100 WBC (Bld) 60.5 % 40.0 - 80.0 % [facility] Platelet mean volume (Bld) [Entitic vol] 9.9 fL 7.4 - 12.4 fL [facility] Comment on above: MPV is a calculated measurement using platelet volume ratio Platelets (Bld) [#/Vol] 455 10*3/uL High 140 - 440 10*3/uL [facility] RBC (Bld) [#/Vol] 4.31 10*6/uL Low 4.40 - 5.9 0 10*6/uL [facility] WBC (Bld) [#/Vol] 9.6 10*3/uL 3.6 - 10.7 10*3/uL [facility] Laboratory - Chemistry and C hemistry - challengeon 02-13-2023 CK [Catalytic activity/Vol] 43 U/L 30 - 170 U/L [facility] Magnesium [Mass/Vol] 2.0 mg/dL 1.6 - 2 .3 mg/dL [facility] Troponin I.cardiac [Mass/Vol] ng/mL NINF - 0.034 ng/mL [facility] Natriuretic peptide B [Mass/ Vol]on 02-13-2023 Natriuretic peptide B (Bld) [Mass/Vol] 223 pg/mL <20 - 300 [facility] No Panel Informationon 02-13 P Ranier degrees [facility] [place] Interval ms [facility] QRS Ranier -82 degrees [facility] QRSD Interval 140 ms [facility] QT Interval 408 ms [facility] QTC Interval 453 ms [facility] T Wave Ranier 42 degrees [facility] EKG shows rate controlled atrial flutter with sawtooth wave appearance between QRS complexes. Left axis deviation. Cannot calculate [place] interval. QRS prolonged, QTc within normal limits. No STEMI, no LVH, no SVT. Previous EKG showed sinus rhythm. Electronically Signed On 02-13-2023 2:31:22 EDT by Ramiro Rodríguez MD - 02/13/2023 IMPRESSION: EKG shows rate controlled atrial flutter with sawtooth wave appearance between QRS complexes. Left axis deviation. Cannot calculate [place] interval. QRS prolonged, QTc within normal limits. No STEMI, no LVH, no SVT. Previous EKG showed sinus rhythm. Electronically Signed On 02-13-2023 2:31:22 EDT by Ramiro Baird [facility] Interpretation and review of laboratory results Normal [facility] Slight Hemolysis [facility] He alth [facility] Troponin I.cardiac [Mass/Vol ]on 02-13-2023 Patients with high levels of Biotin oral intake (ie >5 mg/day) may have falsely decreased Troponin levels. [facility] Vital signson 02-13-2023 Heart rate 74 /min bpm [facility] XR Chest Single viewon 02-13 See findings. Report Dictated on Electronically Signed By: Kranthi Uribe MD Electronically Signed Date/Time: 02/13/2023 1:42 AM EDT [facility] [email or web address] Patient Name: DOROTEO GONG : 1940 [...] pneumothorax. Osseous structures: No acute osseous abnormality. 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 Diffuse osteopenia. Report Dictated on Electronically Signed By: Kranthi Uribe MD Electronically Signed Date/Time: 02/13/2023 1:44 AM EDT [employer] Patient Name: DOROTEO GONG : 1940 [...] vascular calcifications. No significant suprapatellar joint effusion. [facility] RADIOLOGY SYSTEM Kranthi Uribe MD [...] Electronically Signed Date/Time: 02/13/2023 1:44 AM EDT [facility] Radiology Study observation (narrative) [facility] XR Knee - left 1 or 2 ViewsO rdered By: Kranthi Uribe on 02-13-2023 [facility] Work Phone: Bacteria identified Cx Nom ( U)Ordered By: Jennifer August on 01-04-2023 Interpretation and review of laboratory results Normal [facility] CBC W Auto Differential pane l (Bld)on 01-04-2023 Basophils (Bld) [#/Vol] 0.1 10*3/uL 0.0 - 0.2 10*3/uL [facility] Basophils/100 WBC (Bld) 0.5 % 0.0 - 2.0 % [facility] Eosinophils (Bld) [#/Vol] 0.0 10*3/uL 0.0 - 0.5 10*3/uL [facility] Eosinophils/100 WBC (Bld) 0.2 % Low 1.0 - 6.0 % [facility] Erythrocyte distribution width (RBC) [Ratio] 13.4 % 11.5 - 14.5 % [facility] Hematocrit (Bld) [Volume fraction] 40.7 % 40.0 - 52.0 % [facility] Hemoglobin (Bld) [Mass/Vol] 13.7 g/dL 13.0 - 18.0 g/dL [facility] Interpretation and review of laboratory results Abnormal [facility] Lymphocytes (Bld) [#/Vol] 1.8 10*3/uL 1.0 - [...] High 3.6 - 10.7 10*3/uL [facility] CNPNon 01-04-2023 [facility] [place] [place] DOROTEO GONG ([id number]) 1940 M Date Time Provider Department 01/04/23 RO[place]A MADERA [facility] [place] your visit today, we recorded the following information about you: Tasha Ottoa 01/04/2023 12:59 PM Signed FYI: Pt called to say he was admitted to [facility] Roopa Bingham MD 01/04/2023 3:27 PM Signed [...] tablet GUAIFENESIN TABS as needed GUAIFENESIN TABS [id number] Anny Masterson [employer]ILLING ASSOCIATE - acetaminophen 650 mg CR tablet Take [...] Status:Closed by RIRI OTTO on 01/15/23 Normal [facility] Comprehensive metabolic 1998 panelon 01-04-2023 Albumin [Mass/Vol] 3.8 g/dL 3.5 - 5.0 g/dL [facility] ALP [Catalytic activity/Vol] 48 U/L 38 - 126 U/L [facility] ALT [Catalytic activity/Vol] 19 U/L 0 - 49 U/L [facility] Anion gap [Moles/Vol] 8 mmol/L 3 - 13 mmol/L [facility] AST [Catalytic activity/Vol] 28 U/L 15 - 46 U/L [facility] Bilirubin [Mass/Vol] 0.4 mg/dL 0.2 - 1 .3 mg/dL [facility] Calcium [Mass/Vol] 9.3 mg/dL 8.4 - 10. 4 mg/dL [facility] Chloride [Moles/Vol] 100 mmol/L 98 - 10 7 mmol/L [facility] CO2 [Moles/Vol] 27 mmol/L 22 - 30 mmol/L [facility] Creatinine [Mass/Vol] 0.67 mg/dL 0.66 - 1.25 mg/dL [facility] GFR/1.73 sq M.predicted MDRD (S/P/Bld) [Vol rate/Area] - PINF [facility] Comment on above: Calculation based on the Chronic Kidney Disease Epidemiology Collaboration (CKD-EPI) equation refit without adjustment for race Glucose [Mass/Vol] 114 mg/dL High 70 - 100 mg/dL [facility] Interpretation and review of laboratory results Abnormal [facility] Potassium [Moles/Vol] 4.2 mmol/L 3.5 - 5.1 mmol/L [facility] Protein [Mass/Vol] 6.4 g/dL 6.3 - 8.2 g/dL [facility] Sodium [Moles/Vol] 135 mmol/L 135 - 145 mmol/L [facility] Urea nitrogen [Mass/Vol] 27 mg/dL High 9 - 20 mg/dL [facility] Laboratory - Microbiology an d Antimicrobial susceptibilityOrdered By: Jennifer August on 01-04-2023 Bacteria identified Cx Nom (U) Insignificant growth based on current clinical guidelines [facility] CBC W Auto Differential pane l (Bld)on 01-03-2023 Erythrocyte distribution width (RBC) [Ratio] 13.4 % 11.5 - 14.5 % [facility] Hematocrit (Bld) [Volume fraction] 42.4 % 40.0 - 52.0 % [facility] Hemoglobin (Bld) [Mass/Vol] 14.0 g/dL 13.0 - 18.0 g/dL [facility] MCH (RBC) [Entitic mass] 30.5 pg 26. 0 - 34.0 pg [facility] MCHC (RBC) [Mass/Vol] 33.0 % 32.0 - 36.0 % [facility] MCV (RBC) [Entitic vol] 92.3 fL 80.0 - 98.0 fL [facility] Nucleated RBC/100 WBC (Bld) [Ratio] 0.1 % [facility] Platelet mean volume (Bld) [Entitic vol] 8.0 fL 7.4 - 12.4 fL [facility] Platelets (Bld) [#/Vol] 429 10*3/uL 140 - 440 10*3/uL [facility] RBC (Bld) [#/Vol] 4.59 10*6/uL 4.40 - 5.9 0 10*6/uL [facility] WBC (Bld) [#/Vol] 17.0 10*3/uL High 3.6 - 10.7 10*3/uL [facility] Comprehensive metabolic 1998 panelon 01-03-2023 Albumin [Mass/Vol] 3.9 g/dL 3.5 - 5.0 g/dL [facility] ALP [Catalytic activity/Vol] 49 U/L 38 - 126 U/L [facility] ALT [Catalytic activity/Vol] 14 U/L 0 - 49 U/L [facility] Anion gap [Moles/Vol] 5 mmol/L 3 - 13 mmol/L [facility] AST [Catalytic activity/Vol] 28 U/L 15 - 46 U/L [facility] Bilirubin [Mass/Vol] 0.6 mg/dL 0.2 - 1 .3 mg/dL [facility] Calcium [Mass/Vol] 9.8 mg/dL 8.4 - 10. 4 mg/dL [facility] Chloride [Moles/Vol] 103 mmol/L 98 - 10 7 mmol/L [facility] CO2 [Moles/Vol] 26 mmol/L 22 - 30 mmol/L [facility] Creatinine [Mass/Vol] 0.84 mg/dL 0.66 - 1.25 mg/dL [facility] GFR/1.73 sq M.predicted MDRD (S/P/Bld) [Vol rate/Area] 86.5 mL/min/{1.73_m2} - PINF [facility] Comment on above: Calculation based on the Chronic Kidney Disease Epidemiology Collaboration (CKD-EPI) equation refit without adjustment for race Glucose [Mass/Vol] 100 mg/dL 70 - 100 mg/dL [facility] Interpretation and review of laboratory results Abnormal [facility] Potassium [Moles/Vol] 4.0 mmol/L 3.5 - 5.1 mmol/L [facility] Protein [Mass/Vol] 6.5 g/dL 6.3 - 8.2 g/dL [facility] Sodium [Moles/Vol] 135 mmol/L 135 - 145 mmol/L [facility] Urea nitrogen [Mass/Vol] 29 mg/dL High 9 - 20 mg/dL [facility] Laboratory - Chemistry and C hemistry - challengeon 01-03-2023 Alpha 1 antitrypsin [Mass/Vol] 143 mg/dL 90 - 200 mg/dL [facility] Comment on above: To convert to umol/L , multiply mg/dL by 0.185 Performed By: [employer] [address] [place] [id number] [employer] Installer: Chelle Hewitt MD, PhD [place] Number: [id number] Manual differential performe d Ql (Bld)on 01-03-2023 Basophils (Bld) [#/Vol] 0.0 10*3/uL 0.0 - 0.2 10*3/uL [employer] Basophils Manual 0 [facility] Basophils/100 WBC (Bld) 0 % 0 - 2 % S [facility] Cells Counted Total (Bld) [#] 99 {cells} [facility] [employer] Differential Method Automated differenti al reported after manual slide review [facility] [place] Eosinophils (Bld) [#/Vol] 0.0 10*3/uL 0.0 - 0.5 10*3/uL [employer] [place] Eosinophils Manual 0 0 - 1 [facility] [place] Eosinophils/100 WBC (Bld) 0 % Low 1 - 6 % [facility] [place] Leukocyte morphology finding Nom (Bld) Normal [facility] [place] Lymphocytes (Bld) [#/Vol] 2.6 10*3/uL 1.0 - 4.3 10*3/uL [employer] [place] Lymphocytes Manual 15 [facility] Lymphocytes/100 WBC (Bld) 15 % Low 20 - 40 % [facility] [place] Monocytes (Bld) [#/Vol] 1.9 10*3/uL High 0.0 - 0.8 10*3/uL [employer] [place] Monocytes Manual 11 [facility] Monocytes/100 WBC (Bld) 11 % High 2 - 10 % [facility] Neutrophils (Bld) [#/Vol] 12.5 10*3/uL High 1.8 - 7.0 10*3/uL [employer] [place] Neutrophils Manual 73 [facility] [place] Platelet morphology finding Nom (Bld) Normal [facility] [place] RBC morphology finding Nom (Bld) Normal [facility] Segmented neutrophils/100 WBC (Bld) 74 % 40 - 80 % [facility] [place] WBC corrected for nucl RBC (Bld) [#/Vol] 17.0 10*3/uL High 3.6 - 10.7 10*3/uL [employer] [place] No Panel Informationon 01-03 [facility] [place] Interpretation and review of laboratory results Abnormal [facility] [place] [facility] [place] US Retroperitoneumon 023 No hydronephrosis. Left-sided nephrolithiasis. Enlarged prostate. Report Dictated on Electronically Signed By: Dennise Canchola MD Electronically Signed Date/Time: 01/03/2023 12:33 PM EDT [facility] Patient Name: DOROTEO GONG : 1940 [...] measures 5.3 x 3.8 x 3.9 cm. [facility] Dennise Canchola M D - 01/03/2023 [...] Electronically Signed Date/Time: 01/03/2023 12:33 PM EDT [facility] [facility] Radiology Study observation (narrative) [facility] [place] RetroperitoneumOrdered By : Dennise Canchola on 01-03-2023 [facility] [place] Work Phone: Bacteria identified Aer cx N om (Lower resp)Ordered By: Ricardo Fleming on 01-02-2023 Gram Stain Result Moderate Epithelial cells per low power field Abnormal [facility] Gram Stain Result Few Polymorphonuclea r leukocytes per low power field Abnormal [facility] Gram Stain Result Positive Abnormal [facility] H ealth Gram Stain Result Negative Abnormal [facility] ealt Gram Stain Result Smear contains >= 15 squamous cells per low power field, suggestive of poor quality. Culture not performed. Please re-collect if clinically indicated. Abnormal [facility] Interpretation and review of laboratory results Abnormal [facility] CBC W Auto Differential pane l (Bld)Ordered By: Anni Llanes on 01-02-2023 Basophils (Bld) [#/Vol] 0.1 10*3/uL 0.0 - 0.2 10*3/uL [facility] Basophils/100 WBC (Bld) 0.3 % 0.0 - 2.0 % [facility] Health Eosinophils (Bld) [#/Vol] 0.0 10*3/uL 0.0 - 0.5 10*3/uL [facility] Eosinophils/100 WBC (Bld) 0.0 % Low 1.0 - 6.0 % [facility] Erythrocyte distribution width (RBC) [Ratio] 13.8 % 11.5 - 14.5 % [facility] Hematocrit (Bld) [Volume fraction] 41.1 % 40.0 - 52.0 % [facility] Hemoglobin (Bld) [Mass/Vol] 13.9 g/dL 13.0 - 18.0 g/dL [facility] Interpretation and review of laboratory results Abnormal [facility] Lymphocytes (Bld) [#/Vol] 1.0 10*3/uL 1.0 - 4.3 10*3/uL [facility] Lymphocytes/100 WBC (Bld) 4.9 % Low 20.0 - 40.0 % [facility] MCH (RBC) [Entitic mass] 30.9 pg 26. 0 - 34.0 pg [facility] MCHC (RBC) [Mass/Vol] 33.8 % 32.0 - 36.0 % [facility] MCV (RBC) [Entitic vol] 91.4 fL 80.0 - 98.0 fL [facility] Monocytes (Bld) [#/Vol] 0.4 10*3/uL 0.0 - 0.8 10*3/uL [facility] Monocytes/100 WBC (Bld) 2.2 % 2.0 - 10.0 % [facility] Neutrophils (Bld) [#/Vol] 18.8 10*3/uL High 1.8 - 7.0 10*3/uL [facility] Neutrophils/100 WBC (Bld) 92.6 % High 40.0 - 80.0 % [facility] Nucleated RBC/100 WBC (Bld) [Ratio] 0.0 % [facility] Platelet mean volume (Bld) [Entitic vol] 7.5 fL 7.4 - 12.4 fL [facility] Platelets (Bld) [#/Vol] 437 10*3/uL 140 - 440 10*3/uL [facility] RBC (Bld) [#/Vol] 4.50 10*6/uL 4.40 - 5.9 0 10*6/uL [facility] WBC (Bld) [#/Vol] 20.3 10*3/uL High 3.6 - 10.7 10*3/uL [facility] Comprehensive metabolic 1998 panelon 01-02-2023 Albumin [Mass/Vol] 4.1 g/dL 3.5 - 5.0 g/dL [facility] ALP [Catalytic activity/Vol] 50 U/L 38 - 126 U/L [facility] ALT [Catalytic activity/Vol] 14 U/L 0 - 49 U/L [facility] Anion gap [Moles/Vol] 10 mmol/L 3 - 13 mmol/L [facility] AST [Catalytic activity/Vol] 21 U/L 15 - 46 U/L [facility] Bilirubin [Mass/Vol] 0.2 mg/dL 0.2 - 1 .3 mg/dL [facility] Calcium [Mass/Vol] 10.0 mg/dL 8.4 - 10. 4 mg/dL [facility] Chloride [Moles/Vol] 104 mmol/L 98 - 10 7 mmol/L [facility] CO2 [Moles/Vol] 24 mmol/L 22 - 30 mmol/L [facility] Creatinine [Mass/Vol] 0.82 mg/dL 0.66 - 1.25 mg/dL [facility] GFR/1.73 sq M.predicted MDRD (S/P/Bld) [Vol rate/Area] 87.2 mL/min/{1.73_m2} [facility] Comment on above: Calculation based on the Chronic Kidney Disease Epidemiology Collaboration (CKD-EPI) equation refit without adjustment for race Glucose [Mass/Vol] 161 mg/dL High 70 - 100 mg/dL [facility] Interpretation and review of laboratory results Abnormal [facility] Potassium [Moles/Vol] 4.5 mmol/L 3.5 - 5.1 mmol/L [facility] Protein [Mass/Vol] 6.8 g/dL 6.3 - 8.2 g/dL [facility] Sodium [Moles/Vol] 138 mmol/L 135 - 145 mmol/L [facility] Urea nitrogen [Mass/Vol] 22 mg/dL High 9 - 20 mg/dL [facility] Laboratory - Microbiology an d Antimicrobial susceptibilityOrdered By: Ricardo Fleming on 01-02-2023 Bacteria identified Aer cx Nom (Lower resp) Culture canceled due to poor specimen quality. Recollect if clinically indicated. [facility] Urinalysis complete panel (U )Ordered By: Kathy Shah on 01-02-2023 Bacteria LM.HPF (Urine sed) [#/Area] Negative Negative /HPF [facility] Bilirubin Ql (U) Negative Negative mg/dL [facility] Clarity (U) Clear Clear [facility] Color (U) Light Yellow Lt. Yellow [facility] Epithelial cells.squamous LM.HPF (Urine sed) [#/Area] Negative [facility] h Glucose Ql (U) Normal Normal (<70) mg/dL [facility] Hemoglobin Ql (U) >1.0 Abnormal Negative mg/dL [facility] Hyaline casts Auto (Urine sed) [#/Area] 0-2 Abnormal Negative /LPF [facility] Interpretation and review of laboratory results Abnormal [facility] Ketones (U) [Mass/Vol] Negative Negat stephen mg/dL [facility] Leukocyte esterase Test strip Ql (U) 25 Abnormal Negative Pennie/uL [facility] Mucus LM.HPF (Urine sed) [#/Area] Few Negative /LPF [facility] Nitrite Ql (U) Negative Negative [facility] th pH (U) 6.0 [pH] 5.0 - 8.0 pH [facility] Protein (U) [Mass/Vol] Negative Negat stephen mg/dL [facility] RBC LM.HPF (Urine sed) [#/Area] 26-50 Abnormal [facility] Specific gravity (U) [Rel density] 1.010 1.005 - 1.030 [facility] Urobilinogen (U) [Mass/Vol] Normal Normal (0-1) mg/dL [facility] WBC LM.HPF (Urine sed) [#/Area] 6-10 Abnormal [facility] CBC W Auto Differential pane l (Bld)Ordered By: Zechariah Francis on 01-01-2023 Basophils (Bld) [#/Vol] 0.0 10*3/uL 0.0 - 0.2 10*3/uL [facility] Basophils/100 WBC (Bld) 0.5 % 0.0 - 2.0 % [facility] Eosinophils (Bld) [#/Vol] 0.0 10*3/uL 0.0 - 0.5 10*3/uL [facility] Eosinophils/100 WBC (Bld) 0.0 % Low 1.0 - 6.0 % [facility] Erythrocyte distribution width (RBC) [Ratio] 13.7 % 11.5 - 14.5 % [facility] Hematocrit (Bld) [Volume fraction] 42.6 % 40.0 - 52.0 % [facility] Hemoglobin (Bld) [Mass/Vol] 14.4 g/dL 13.0 - 18.0 g/dL [facility] Interpretation and review of laboratory results Abnormal [facility] Lymphocytes (Bld) [#/Vol] 0.6 10*3/uL Low 1.0 - 4.3 10*3/uL [facility] Lymphocytes/100 WBC (Bld) 9.3 % Low 20.0 - 40.0 % [facility] MCH (RBC) [Entitic mass] 30.9 pg 26. 0 - 34.0 pg [facility] MCHC (RBC) [Mass/Vol] 33.8 % 32.0 - 36.0 % [facility] MCV (RBC) [Entitic vol] 91.5 fL 80.0 - 98.0 fL [facility] Monocytes (Bld) [#/Vol] 0.1 10*3/uL 0.0 - 0.8 10*3/uL [facility] Monocytes/100 WBC (Bld) 1.1 % Low 2.0 - 10.0 % [facility] Neutrophils (Bld) [#/Vol] 6.1 10*3/uL 1.8 - 7.0 10*3/uL [facility] Neutrophils/100 WBC (Bld) 89.1 % High 40.0 - 80.0 % [facility] Nucleated RBC/100 WBC (Bld) [Ratio] 0.0 % [facility] Platelet mean volume (Bld) [Entitic vol] 7.8 fL 7.4 - 12.4 fL [facility] Platelets (Bld) [#/Vol] 423 10*3/uL 140 - 440 10*3/uL [facility] RBC (Bld) [#/Vol] 4.66 10*6/uL 4.40 - 5.9 0 10*6/uL [facility] WBC (Bld) [#/Vol] 6.8 10*3/uL 3.6 - 10.7 10*3/uL [facility] Comprehensive metabolic 1998 panelOrdered By: Valery Claros on 01-01-2023 Albumin [Mass/Vol] 4.4 g/dL 3.5 - 5.0 g/dL [facility] ALP [Catalytic activity/Vol] 48 U/L 38 - 126 U/L [facility] ALT [Catalytic activity/Vol] 17 U/L 0 - 49 U/L [facility] Anion gap [Moles/Vol] 12 mmol/L 3 - 13 mmol/L [facility] AST [Catalytic activity/Vol] 29 U/L 15 - 46 U/L [facility] Bilirubin [Mass/Vol] 0.5 mg/dL 0.2 - 1 .3 mg/dL [facility] Calcium [Mass/Vol] 9.9 mg/dL 8.4 - 10. 4 mg/dL [facility] Chloride [Moles/Vol] 103 mmol/L 98 - 10 7 mmol/L [facility] CO2 [Moles/Vol] 22 mmol/L 22 - 30 mmol/L [facility] Creatinine [Mass/Vol] 0.71 mg/dL 0.66 - 1.25 mg/dL [facility] GFR/1.73 sq M.predicted MDRD (S/P/Bld) [Vol rate/Area] - PINF [facility] Comment on above: Calculation based on the Chronic Kidney Disease Epidemiology Collaboration (CKD-EPI) equation refit without adjustment for race Glucose [Mass/Vol] 149 mg/dL High 70 - 100 mg/dL [facility] Interpretation and review of laboratory results Abnormal [facility] Potassium [Moles/Vol] 4.7 mmol/L 3.5 - 5.1 mmol/L [facility] Protein [Mass/Vol] 7.1 g/dL 6.3 - 8.2 g/dL [facility] Sodium [Moles/Vol] 137 mmol/L 135 - 145 mmol/L [facility] Urea nitrogen [Mass/Vol] 12 mg/dL 9 - 20 mg/dL [facility] No Panel Informationon 01-01 No evidence of [...] filling and normal phasic and spontaneous flow. [employer] Details A boyd scale, color Doppler imaging and spectral Doppler analysis ultrasound was performed. During the study longitudinal and transverse views were obtained. Pulsed wave doppler was performed. The exam was performed with the patient in the supine position. Overall the study quality was good. [facility] Comprehensive metabolic 1998 panelon 12-31-2022 Albumin [Mass/Vol] 3.6 g/dL 3.5 - 5.0 g/dL [facility] ALP [Catalytic activity/Vol] 37 U/L Low 38 - 126 U/L [facility] ALT [Catalytic activity/Vol] 12 U/L 0 - 49 U/L [facility] Anion gap [Moles/Vol] 6 mmol/L 3 - 13 mmol/L [facility] AST [Catalytic activity/Vol] 23 U/L 15 - 46 U/L [facility] Bilirubin [Mass/Vol] 0.4 mg/dL 0.2 - 1 .3 mg/dL [facility] Calcium [Mass/Vol] 8.9 mg/dL 8.4 - 10. 4 mg/dL [facility] Chloride [Moles/Vol] 108 mmol/L High 98 - 10 7 mmol/L [facility] CO2 [Moles/Vol] 26 mmol/L 22 - 30 mmol/L [facility] Creatinine [Mass/Vol] 0.56 mg/dL Low 0.66 - 1.25 mg/dL [facility] GFR/1.73 sq M.predicted MDRD (S/P/Bld) [Vol rate/Area] - PINF [facility] Comment on above: Calculation based on the Chronic Kidney Disease Epidemiology Collaboration (CKD-EPI) equation refit without adjustment for race Glucose [Mass/Vol] 86 mg/dL 70 - 100 mg/dL [facility] Interpretation and review of laboratory results Abnormal [facility] Potassium [Moles/Vol] 3.4 mmol/L Low 3.5 - 5.1 mmol/L [facility] Protein [Mass/Vol] 6.0 g/dL Low 6.3 - 8.2 g/dL [facility] Sodium [Moles/Vol] 140 mmol/L 135 - 145 mmol/L [facility] Urea nitrogen [Mass/Vol] 14 mg/dL 9 - 20 mg/dL [facility] Fibrin D-dimer FEU (PPP) [Ma ss/Vol]on 12-31-2022 Interpretation and review of laboratory results Normal [facility] D-Dimer values of <0.50 mg/L FEU can be used in combination with a pre-test probability model (e.g. Well's) to exclude pulmonary embolism (PE) disease, as well as an aid in the diagnosis of deep vein thrombosis (DVT). [facility] Laboratory - Chemistry and C hemistry - challengeon 12-31-2022 Magnesium [Mass/Vol] 1.9 mg/dL 1.6 - 2 .3 mg/dL [facility] Troponin I.cardiac [Mass/Vol] ng/mL 0.000 - 0.034 ng/mL [facility] Troponin I.cardiac [Mass/Vol] ng/mL 0.000 - 0.034 ng/mL [facility] Laboratory - Coagulationon 0 12-31-2022 Fibrin D-dimer FEU (PPP) [Mass/Vol] 0.47 mg/L NINF - 0.50 mg/L [facility] Laboratory - Microbiology an d Antimicrobial susceptibilityon 12-31-2022 FLUAV RNA JANIE+probe Ql (Resp) Not detected Not Detected [facility] FLUBV RNA JANIE+probe Ql (Resp) Not detected Not Detected [facility] RSV RNA JANIE+probe Ql (Resp) Not detected Not Detected [facility] SARS-CoV-2 (COVID-19) RNA JANIE+probe Ql (Resp) Not detected Not Detected [facility] SARS-CoV-2 (COVID-19) RNA JANIE+probe Ql (Unsp spec) Methodology: real-time, RT-PCR The SARS-CoV-2, Flu A/B, and RSV Combo assay is intended for in vitro diagnostic use under the FDA Emergency Use Authorization (EUA). This test has not been FDA cleared or approved. In compliance with this authorization, please visit www.fda.gov/media/34813 5/download or www.fda.gov/media/45655 6/download to access the applicable information sheets. [employer] Magnesium [Mass/Vol]on 12-31 Interpretation and review of laboratory results Normal [facility] [place] No Panel InformationOrdered By: Darlene Valiente on 12-31-2022 Interpretation and review of laboratory results Normal [facility] [place] Legionella pneumophila Ag Not detected Not Detected [facility] [place] Streptococcus pneumoniae Ag Not detected Not Detected [facility] [place] Methodology: Lateral flow enzyme immunoassay This assay is approved for detection of antigens to Streptococcus pneumoniae and Legionella pneumophila serogroup 1; however, other L. pneumophila serogroups may also be detected. [facility] [place] No Panel Informationon 12-31 Extra Tube Hold for add-ons. [facility] ealt Comment on above: Auto resulted. [employer] [place] P [place] 2 degrees [facility] [place] Interval 209 ms [facility] [place] QRS [place] -77 degrees [facility] [place] QRSD Interval 144 ms [facility], Inct QT Interval 432 ms [facility] [place] QTC Interval 441 ms [facility] [place] T Wave [place] -5 degrees [facility] Sinus rhythm RBBB and LAFB Compared to ECG 12/12/2022 23:46:27 No significant changes compared to 12/12/2022 Electronically Signed On 12-31-2022 0:48:46 EDT by Tara Ames MD - 12/31/2022 IMPRESSION: Sinus rhythm RBBB and LAFB Compared to ECG 12/12/2022 23:46:27 No significant changes compared to 12/12/2022 Electronically Signed On 12-31-2022 0:48:46 EDT by Tara Burns [facility] Respiratory pathogens DNA an d RNA panel JANIE+non-probe (Nph)on 12-31-2022 Adenovirus Not detected Not Detected [facility] B. pertussis DNA JANIE+probe Ql (Unsp spec) Not detected Not Detected [facility] Bordetella parapertussis Not detected Not Detected [facility] Chlamydia pneumoniae Not detected Not Detected [facility] Coronavirus 229E Not detected Not Detected [facility] Coronavirus HKU1 Not detected Not Detected [facility] Coronavirus NL63 Not detected Not Detected [facility] Coronavirus OC43 Not detected Not Detected [facility] FLUAV RNA JANIE+non-probe Ql (Nph) Not detected Not Detected [facility] FLUBV RNA JANIE+non-probe Ql (Nph) Not detected Not Detected [facility] Human Metapneumovirus Not detected Not Detected [facility] Human Rhinovirus/Enterovirus Not detected Not Detected [facility] Interpretation and review of laboratory results Normal [facility] Mycoplasma pneumoniae Not detected Not Detected [facility] Parainfluenza 1 Not detected Not Detected [facility] Parainfluenza 2 Not detected Not Detected [facility] Parainfluenza 3 Not detected Not Detected [facility] Parainfluenza 4 Not detected Not Detected [facility] Respiratory Syncytial Virus Not detected Not Detected [facility] SARS-CoV-2 (COVID-19) RNA JANIE+non-probe Ql (Nph) Not detected Not Detected [facility] Methodology: Multipl ex PCR [facility] SARS-CoV-2, Flu A/B, and RSV Comboon 12-31-2022 Interpretation and review of laboratory results Normal [facility] Troponin I.cardiac [Mass/Vol ]on 12-31-2022 Interpretation and review of laboratory results Normal [facility] Patients with high levels of Biotin oral intake (ie >5 mg/day) may have falsely decreased Troponin levels. [facility] Interpretation and review of laboratory results Normal [facility] Patients with high levels of Biotin oral intake (ie >5 mg/day) may have falsely decreased Troponin levels. [facility] Vital signson 12-31-2022 Heart rate 63 /min bpm [facility] XR Foot - left 2 Viewson Patient [...] soft tissue edema. Peripheral vascular calcifications noted. [facility] Michele Briseno MD - 12/31/2022 [facility] 1940 [id number] Exam Date/Time: 12/31/2022 18:04 Procedure: XR FOOT [...] Electronically Signed Date/Time: 12/31/2022 6:48 PM EDT [facility] Radiology Study observation (narrative) [facility] Basic metabolic 1998 panelon 12-30-2022 Anion gap [Moles/Vol] 7 mmol/L 3 - 13 mmol/L [facility] Calcium [Mass/Vol] 9.7 mg/dL 8.4 - 10. 4 mg/dL [facility] Chloride [Moles/Vol] 105 mmol/L 98 - 10 7 mmol/L [facility] [place] CO2 [Moles/Vol] 27 mmol/L 22 - 30 mmol/L [facility] [place] Creatinine [Mass/Vol] 0.62 mg/dL Low 0.66 - 1.25 mg/dL [facility] GFR/1.73 sq M.predicted MDRD (S/P/Bld) [Vol rate/Area] - PINF [facility] Comment on above: Calculation based on the Chronic Kidney Disease Epidemiology Collaboration (CKD-EPI) equation refit without adjustment for race Glucose [Mass/Vol] 90 mg/dL 70 - 100 mg/dL [facility] Interpretation and review of laboratory results Abnormal [facility] Potassium [Moles/Vol] 4.1 mmol/L 3.5 - 5.1 mmol/L [facility] Sodium [Moles/Vol] 139 mmol/L 135 - 145 mmol/L [facility] Urea nitrogen [Mass/Vol] 18 mg/dL 9 - 20 mg/dL [facility] CBC W Auto Differential pane l (Bld)Ordered By: Natalya Lucas on 12-30-2022 Basophils (Bld) [#/Vol] 0.1 10*3/uL 0.0 - 0.2 10*3/uL [facility] Basophils/100 WBC (Bld) 1.2 % 0.0 - 2.0 % [facility] Eosinophils (Bld) [#/Vol] 0.5 10*3/uL 0.0 - 0.5 10*3/uL [facility] Eosinophils/100 WBC (Bld) 6.5 % High 1.0 - 6.0 % [facility] Erythrocyte distribution width (RBC) [Ratio] 13.7 % 11.5 - 14.5 % [facility] Hematocrit (Bld) [Volume fraction] 42.5 % 40.0 - 52.0 % [facility] Hemoglobin (Bld) [Mass/Vol] 14.7 g/dL 13.0 - 18.0 g/dL [facility] Interpretation and review of laboratory results Abnormal [facility] Lymphocytes (Bld) [#/Vol] 2.6 10*3/uL 1.0 - 4.3 10*3/uL [facility] Lymphocytes/100 WBC (Bld) 31.0 % 20.0 - 40.0 % [facility] MCH (RBC) [Entitic mass] 31.6 pg 26. 0 - 34.0 pg [facility] MCHC (RBC) [Mass/Vol] 34.6 % 32.0 - 36.0 % [facility] MCV (RBC) [Entitic vol] 91.4 fL 80.0 - 98.0 fL [facility] Monocytes (Bld) [#/Vol] 0.9 10*3/uL High 0.0 - 0.8 10*3/uL [facility] Monocytes/100 WBC (Bld) 10.6 % High 2.0 - 10.0 % [facility] Neutrophils (Bld) [#/Vol] 4.2 10*3/uL 1.8 - 7.0 10*3/uL [facility] Neutrophils/100 WBC (Bld) 50.7 % 40.0 - 80.0 % [facility] Nucleated RBC/100 WBC (Bld) [Ratio] 0.1 % [facility] Platelet mean volume (Bld) [Entitic vol] 7.7 fL 7.4 - 12.4 fL [facility] Platelets (Bld) [#/Vol] 427 10*3/uL 140 - 440 10*3/uL [facility] RBC (Bld) [#/Vol] 4.65 10*6/uL 4.40 - 5.9 0 10*6/uL [facility] WBC (Bld) [#/Vol] 8.3 10*3/uL 3.6 - 10.7 10*3/uL [facility] Laboratory - Chemistry and C hemistry - challengeon 12-30-2022 Troponin I.cardiac [Mass/Vol] ng/mL 0.000 - 0.034 ng/mL [facility] Magnesium [Mass/Vol] 2.1 mg/dL 1.6 - 2 .3 mg/dL [facility] Magnesium [Mass/Vol]on 12-30 Interpretation and review of laboratory results Normal [facility] Natriuretic peptide B [Mass/ Vol]on 12-30-2022 Natriuretic peptide B (Bld) [Mass/Vol] 260 pg/mL <20 - 300 [facility] No Panel Informationon 12-30 Interpretation and review of laboratory results Normal [facility] Troponin I.cardiac [Mass/Vol ]on 12-30-2022 Patients with high levels of Biotin oral intake (ie >5 mg/day) may have falsely decreased Troponin levels. [facility] XR Chest Single viewon 12-30 1. No acute findings. Report Dictated on Electronically Signed By: Michele Briseno MD Electronically Signed Date/Time: 12/30/2022 10:45 PM EDT [facility] Patient Name: DOROTEO GONG : 1940 [...] change again noted in the thoracic spine. [facility] Michele Briseno MD - 12/30/2022 Patient [...] Electronically Signed Date/Time: 12/30/2022 10:45 PM EDT [facility] Radiology Study observation (narrative) [facility] XR Chest Single viewOrdered By: Michele Briseno on 12-30-2022 [facility] [place] Work Phone: Idris 12-25-2022 [facility] Tele[place] DOROTEO GONG ([id number]) 1940 M Date Time Provider Department 12/25/22 ROOPA MADERA [facility] [place] During your visit today, we recorded the following information about you: Riri Otto 12/25/2022 10:24 AM Signed Pt called requesting a return call. He has three issues/concerns. 1) Medicine discussion 2) At home physical therapy 3) And what vaccines is he due for Pt's phone number is: [phone] Roopa Bingham MD 12/25/2022 11:08 AM Signed [...] 2) Pt has an appt with a [facility] surgeon in two weeks to discuss [...] orders/office notes It was all sent to [facility] (P) [phone] (F) [phone] He didn't have anything to write info [...] Fully Assessed Reason for Visit: Patient Question [0447] Primary Visit Diagnosis:Osteoarthriti s of both knees, unspecified osteoarthritis type [M17.0] Other Visit Diagnosis:Osteoarthriti s of both hips, unspecified osteoarthritis type [M16.0] Order(s):CONSULT TO HOME HEALTH CARE [[id number]] Order #: [id number]: 1 Prescriptions as of 12/26/2022 - simvastatin [...] tablet GUAIFENESIN TABS as needed GUAIFENESIN TABS [id number] Anny Lloydloni VARNISH INSPECTOR-MEDICAL BILLING ASSOCIATE - acetaminophen 650 mg CR tablet Take [...] Status:Closed by ROOPA MADERA on 12/25/22 Normal [facility] Basic metabolic 1998 panelon 12-13-2022 Anion gap [Moles/Vol] 4 mmol/L 3 - 13 mmol/L [facility] [place] Calcium [Mass/Vol] 9.4 mg/dL 8.4 - 10. 4 mg/dL [facility] [place] Chloride [Moles/Vol] 105 mmol/L 98 - 10 7 mmol/L [facility] CO2 [Moles/Vol] 28 mmol/L 22 - 30 mmol/L [facility] Creatinine [Mass/Vol] 0.64 mg/dL Low 0.66 - 1.25 mg/dL [facility] GFR/1.73 sq M.predicted MDRD (S/P/Bld) [Vol rate/Area] - PINF [facility] Comment on above: Calculation based on the Chronic Kidney Disease Epidemiology Collaboration (CKD-EPI) equation refit without adjustment for race Glucose [Mass/Vol] 87 mg/dL 70 - 100 mg/dL [facility] Interpretation and review of laboratory results Abnormal [facility] Potassium [Moles/Vol] 3.7 mmol/L 3.5 - 5.1 mmol/L [facility] Sodium [Moles/Vol] 138 mmol/L 135 - 145 mmol/L [facility] Urea nitrogen [Mass/Vol] 21 mg/dL High 9 - 20 mg/dL [facility] CBC W Auto Differential pane l (Bld)Ordered By: Anni Llanes on 12-13-2022 Basophils (Bld) [#/Vol] 0.1 10*3/uL 0.0 - 0.2 10*3/uL [facility] Basophils/100 WBC (Bld) 1.2 % 0.0 - 2.0 % [facility] Eosinophils (Bld) [#/Vol] 0.4 10*3/uL 0.0 - 0.5 10*3/uL [facility] Eosinophils/100 WBC (Bld) 6.6 % High 1.0 - 6.0 % [facility] Erythrocyte distribution width (RBC) [Ratio] 13.5 % 11.5 - 14.5 % [facility] Hematocrit (Bld) [Volume fraction] 39.7 % Low 40.0 - 52.0 % [facility] Hemoglobin (Bld) [Mass/Vol] 13.5 g/dL 13.0 - 18.0 g/dL [facility] Interpretation and review of laboratory results Abnormal [facility] Lymphocytes (Bld) [#/Vol] 1.9 10*3/uL 1.0 - 4.3 10*3/uL [facility] Lymphocytes/100 WBC (Bld) 29.8 % 20.0 - 40.0 % [facility] MCH (RBC) [Entitic mass] 31.1 pg 26. 0 - 34.0 pg [facility] MCHC (RBC) [Mass/Vol] 33.9 % 32.0 - 36.0 % [facility] MCV (RBC) [Entitic vol] 91.7 fL 80.0 - 98.0 fL [facility] Monocytes (Bld) [#/Vol] 0.8 10*3/uL 0.0 - 0.8 10*3/uL [facility] Monocytes/100 WBC (Bld) 12.6 % High 2.0 - 10.0 % [facility] Neutrophils (Bld) [#/Vol] 3.2 10*3/uL 1.8 - 7.0 10*3/uL [facility] Neutrophils/100 WBC (Bld) 49.8 % 40.0 - 80.0 % [facility] Nucleated RBC/100 WBC (Bld) [Ratio] 0.1 % [facility] Platelet mean volume (Bld) [Entitic vol] 7.8 fL 7.4 - 12.4 fL [facility] Platelets (Bld) [#/Vol] 352 10*3/uL 140 - 440 10*3/uL [facility] RBC (Bld) [#/Vol] 4.33 10*6/uL Low 4.40 - 5.9 0 10*6/uL [facility] WBC (Bld) [#/Vol] 6.4 10*3/uL 3.6 - 10.7 10*3/uL [facility] ECG 12 leadOrdered By: Pierre Walden on 12-13-2022 Heart rate 67 /min bpm [facility] Work Phone: P [place] 9 degrees [facility] Work Phone: [place] Interval 205 ms [facility] Work Phone: QRS [place] -69 degrees [facility] Work Phone: QRSD Interval 152 ms [facility] Work Phone: QT Interval 444 ms [facility] Work Phone: QTC Interval 469 ms [facility] Work Phone: T Wave [place] 9 degrees [facility] Work Phone: [facility] Work Phone: ECG 12 leadon 12-13-2022 Sinus rhythm RBBB Electronically Signed On 12-13-2022 7:54:53 EDT by Jaya Tanner, - 12/13/2022 IMPRESSION: Sinus rhythm RBBB Electronically Signed On 12-13-2022 7:54:53 EDT by Jaya Walden [facility] Troponin Ion 12-13-2022 Troponin I.cardiac [Mass/Vol] ng/mL 0.000 - 0.034 ng/mL [facility] Troponin I.cardiac [Mass/Vol ]on 12-13-2022 Interpretation and review of laboratory results Normal [facility] Patients with high levels of Biotin oral intake (ie >5 mg/day) may have falsely decreased Troponin levels. [facility] XR Chest Single viewon 12-13 No acute cardiopulmonary abnormality. Report Dictated on Electronically Signed By: Dennise Canchola MD Electronically Signed Date/Time: 12/13/2022 2:17 AM EDT [facility] Patient Name: DOROTEO GONG DOB: 1940 [...] of the spine. Bilateral acromioclavicular joint DJD.. [facility] Dennise Canchola M D - 12/13/2022 [...] Electronically Signed Date/Time: 12/13/2022 2:17 AM EDT [facility] Radiology Study [facility] (narrative) [facility] Single viewOrdered By: Dennise Canchola on 12-13-2022 [facility] [facility] Work Phone: CNPNon 11-20-2022 [facility] [place] [place] DOROTEO GONG ([id number]) 1940 M Date Time Provider Department 11/20/22 ROOPA MADERA [facility] [place] During your visit today, we recorded the following information about you: Riri Otto 11/20/2022 10:46 AM Signed Pt called requesting a return call. He wants to discuss medication. Pt's phone number is: [phone] Roopa Bingham MD 11/20/2022 11:51 AM Signed [...] Fully Assessed Reason for Visit: Patient Question [0797] Prescriptions as of 11/20/2022 - simvastatin (ZOCOR) [...] tablet GUAIFENESIN TABS as needed GUAIFENESIN TABS [id number] Anny Masterson VARNISH INSPECTOR-MEDICAL BILLING ASSOCIATE - ipratropium bromide (ATROVENT) 42 mcg (0.06 [...] Encounter Status:Closed by RIRI OTTO on 11/20/22 [facility] [place] 11-08-2022 [facility] Telephone [place] [place] DOROTEO GONG ([id number]) 1940 M Date Time Provider Department 11/08/22 ROOPA MADERA [facility] [place] During your visit today, we recorded the [...] tablet GUAIFENESIN TABS as needed GUAIFENESIN TABS [id number] Anny Masterson VARNISH INSPECTOR-MEDICAL BILLING ASSOCIATE - ipratropium bromide (ATROVENT) 42 mcg (0.06 [...] Encounter Status:Closed by MAXIMILIANO DRAPER on 11/08/22 [facility] CNOVon 10-23-2022 [facility] DOROTEO GONG ([id number]) 1940 M Date Time Provider Department 10/23/22 2:45 PM ROOPA MADERA [facility] [place] [place] During your visit today, we recorded the following information about you: Temperature Pulse Blood pressure Height 98.4 degrees 71/minute 130/70 1.575 m Roopa Mdaera MD 10/23/2022 7:57 PM Signed HPI: Mr. Gong is a 81 year old male who presents for chief complaint of some left hip left knee and right foot pain. The hip and knee pain is intermittent and previously diagnosed as osteoarthritis. The right toe pain is more recent and is on the medial aspect of the great toe. 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 Review of Systems noncontributory [...] tablet GUAIFENESIN TABS as needed GUAIFENESIN TABS [id number] Anny Masterson VARNISH INSPECTOR-MEDICAL BILLING ASSOCIATE ipratropium bromide (ATROVENT) 42 mcg (0.06 %) [...] 95 74 - 99 mg/dL Final The [place] [employer] (ADA) provides guidance for cutoff [...] diabetes. Re (more content not included)... Normal [facility] 09-08-2022 [facility] Telephone [place] [place] DOROTEO GONG ([id number]) 1940 M Date Time Provider Department 09/08/22 ROOPA MADERA [facility] [place] [place] During your visit today, we recorded the following information about you: Riri Otto 09/08/2022 1:16 PM Signed Pt knows [...] tablet GUAIFENESIN TABS as needed GUAIFENESIN TABS [id number] Anny Masterson VARNISH INSPECTOR-MEDICAL BILLING ASSOCIATE - ipratropium bromide (ATROVENT) 42 mcg (0.06 [...] Encounter Status:Closed by RIRI OTTO on 09/18/22 [facility] 09-01-2022 [facility] Telephone [place] [place] DOROTEO GONG ([id number]) 1940 M Date Time Provider Department 09/01/22 ROOPA MADERA [facility] [place] [place] During your visit today, we recorded the [...] Unknown Last Office Visit Date: 07/31/2022 Last [facility] Health Visit: Visit date not found Future [...] Fully Assessed Reason for Visit: Patient Question [9327] Prescriptions as of 09/05/2022 - simvastatin (ZOCOR) [...] tablet GUAIFENESIN TABS as needed GUAIFENESIN TABS [id number] Anny Masterson VARNISH INSPECTOR-MEDICAL BILLING ASSOCIATE - ipratropium bromide (ATROVENT) 42 mcg (0.06 [...] Encounter Status:Closed by KALYANI SILVEIRA on 09/05/22 [facility] CT Chest WO contraston 07-11 Addendum by [...] Electronically Signed Date/Time: 07/11/2022 4:08 PM T [facility] [place] 1. COPD is evidence of chronic pulmonary hypertension. 2. 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 3. No pathologic pulmonary nodules. Report Dictated on Electronically Signed By: Roger Villalta Electronically Signed Date/Time: 07/11/2022 4:08 PM [facility] Patient Name: DOROTEO GONG : [...] otherwise grossly normal on this unenhanced scan. [facility] Roger Villalta MD - 07/11/2022 Patient [...] Electronically Signed Date/Time: 07/11/2022 4:08 PM EDT [facility] CT Chest WO contrastOrdered By: Roger Villalta on 07-11-2022 [facility] Work Phone: CT Chest WO contraston 07-07 Radiology Study observation (narrative) [facility] CR Abdomen APon 09-02-2021 CR Abdomen AP Patient Name: DOROTEO GONG Diagnostic Radiology ACCESSION EXAM DATE/TIME PROCEDURE ORDERING PROVIDER [id number] 09/02/2021 14:45 EDT CR Abdomen AP WENDY LEGGETT, NERY L CPT code 86711 Reason For Exam (CR Abdomen AP) renal [...] Transcribed Date and Time: 09/04/2021 7:40 Normal [facility] US RETROPERITONEAL COMPLETEo n 06-30-2021 Patient Name: DOROTEO GONG Ultrasound ACCESSION EXAM DATE/TIME PROCEDURE ORDERING PROVIDER [id number] 06/30/2021 14:08 EDT US Retroperitoneal WENDY LEGGETT, Complete NERY L CPT code 46806 Reason For Exam (US Retroperitoneal Complete) Calculus [...] LAURA Transcribed Date and Time: 06/30/2021 4:12 [facility] RAD Mamta Roberts MD - 06/30/2021 Patient Name: DOROTEO GONG Ultrasound ACCESSION EXAM DATE/TIME PROCEDURE ORDERING PROVIDER [id number] 06/30/2021 14:08 EDT US Retroperitoneal WENDY LEGGETT, Complete NERY L CPT code 96148 Reason For Exam (US Retroperitoneal Complete) Calculus [...] LAURA Transcribed Date and Time: 06/30/2021 4:12 [facility] Work Phone: Radiology Study observation (narrative) [facility] Work Phone: US RETROPERITONEAL COMPLETEO rdered By: Mamta Roberts on 06-30-2021 [facility] Work Phone: US Retroperitoneal Completeo n 06-30-2021 US Retroperitoneal Complete Patient Name: DOROTEO GONG Ultrasound ACCESSION EXAM DATE/TIME PROCEDURE ORDERING PROVIDER [id number] 06/30/2021 14:08 EDT US Retroperitoneal WENDY LEGGETT, Complete NERY L CPT code 17504 Reason For Exam (US Retroperitoneal Complete) Calculus [...] Transcribed Date and Time: 06/30/2021 4:12 Normal [facility] CULTURE URINEon 06-07-2021 CULTURE URINE CULTURE URINE --> Status: F Normal urogenital alex present. Normal [facility] Comment on above: Performed By: #### C /UR #### [facility] System [address] [place] [address] NM Myocardial Perf Imaging M ulti Specton 06-07-2021 NM Myocardial Perf Imaging Multi Spect Patient Name: DOROTEO GONG Nuclear Medicine ACCESSION EXAM DATE/TIME PROCEDURE ORDERING PROVIDER [id number] 06/07/2021 10:50 EST NM Myocardial Perf LAWSON LAW Imaging Multi Spect CPT code 65600 52413 A9500 Reason For Exam (NM Myocardial Perf [...] study was interpreted and reported by the pin cleaner and the perfusion imaging portion of the [...] Exercise for 4 minutes completed by hand plasma processing technician. The infusion was terminated due to end [...] peak heart rate and blood pressure was 67092 mm Hg/min. Stress testing did not produce [...] +------- ---------+-------- (more content not included)... Normal [facility] [place] [facility] Rad Signatureon 2 AL Rad Signature Patient Name: DOROTEO GONG Nuclear Medicine ACCESSION EXAM DATE/TIME PROCEDURE ORDERING PROVIDER [id number] 06/07/2021 12:35 EST NM Rad Signature SIGNATURE, RAD AL Reason For Exam (AL Rad Signature) rad signature Report _ Indications: Sob. -- Summary: 1. Stress ECG conclusions: The sensitivity of this test is limited by baseline right bundle branch block. No stress induced ECG changes suggestive of ischemia. 2. Myocardial Perfusion Imaging: No inducible ischemic changes. Radiologist Confirmation: This is a combined report. The ECG portion of the study was interpreted and reported by the pin cleaner and the perfusion imaging portion of the [...] Exercise for 4 minutes completed by hand plasma processing technician. The infusion was terminated due to end [...] peak heart rate and blood pressure was 19385 mm Hg/min. Stress testing did not produce [...] +------- ---------+ + +Injected by +B Maco GLASS CLEANING MACHINE TENDER +Divine Nieto GLASS CLEANING MACHINE TENDER + + +------- ---------+ + Image properties: Imaging information: The study was gated and motion correction used. The patient was (more content not included)... Normal [facility] RF Swallowing Function w/ Vi andrew 06-07-2021 RF Swallowing Function w/ Video Patient Name: DOROTEO GONG Fluoroscopy ACCESSION EXAM DATE/TIME PROCEDURE ORDERING PROVIDER [id number] 06/07/2021 11:20 EST RF Swallowing Function LAWSON LAW w/ Video CPT code 50195 Reason For Exam (RF Swallowing Function w/ [...] Transcribed Date and Time: 06/07/2021 2:04 Normal [facility] AZURE DEVELOPER Modified Barium Swallow Studyon 06-07-2021 AZURE DEVELOPER Modified Barium Swallow Study [facility]: [id number] ACCESSION EXAM DATE/TIME PROCEDURE ORDERING PROVIDER [id number] 06/07/2021 11:20 EST AZURE DEVELOPER Modified Barium LAWSON LAW Swallow Study Reason For Exam (AZURE DEVELOPER Modified Barium Swallow Study) Shortness of breath [...] yelena cracker coated with Varibar pudding Varibar Henrietta presented via cup. Varibar Thin Liquid presented [...] applicable Radiologist: Dr. Radha Johnson MD Radiologist Family Nurse: ILSA Yost Report Dictated on Final Dictating Physician: BREA CHAVEZ, GERBER/IZZY BOSE Signed Date and Time: 06/07/2021 2:44 pm Signed by: BREA CHAVEZ, GERBER/IZZY BOSE Transcribed Date and Time: 06/07/2021 2:45 Normal [facility] CBC with Auto Differentialon 06-05-2021 Absolute [...] (Stl) 14.8 g/dL 13.0 - 18.0 g/dL [facility] Interpretation and review of laboratory results Abnormal [...] - 10.7 10*3/uL [facility] Test Performed by [facility], [address] [place], [place] [id number] [place] [address] [facility] [address] Abdomen Pelvis Wo Contras ton 06-05-2021 Patient Name: DOROTEO GONG Computed Tomography ACCESSION EXAM DATE/TIME PROCEDURE ORDERING PROVIDER [id number] 06/05/2021 19:[address] Abdomen/Pelvis (No LITO, MEDICAL BILLING ASSOCIATE, TONO M PO, No IV) CPT code 79399 Reason For Exam (CT Abdomen/Pelvis (No PO, [...] WENDELL Transcribed Date and Time: 06/05/2021 7:32 [facility] Michele Briseno MD - 06/05/2021 Patient Name: DOROTEO GONG Computed Tomography ACCESSION EXAM DATE/TIME PROCEDURE ORDERING PROVIDER [id number] 06/05/2021 19:[address] Abdomen/Pelvis (No LITO, KENDRICK, TONO M PO, No IV) CPT code 17066 Reason For Exam (CT Abdomen/Pelvis (No PO, [...] Tomography ACCESSION EXAM DATE/TIME PROCEDURE ORDERING PROVIDER [id number] 06/05/2021 19:[address] Abdomen/Pelvis (No LITO, MEDICAL BILLING ASSOCIATE, TONO M PO, No IV) CPT code 83810 Reason For Exam (CT Abdomen/Pelvis (No PO, [...] Transcribed Date and Time: 06/05/2021 7:32 Normal [facility] Comp Metabolic Panelon 06-05 Calcium [Mass/Vol] 9.8 mg/dL Normal 8.4-10.4 [facility] Comment on above: Performed By: #### H EMOG #### [facility] [address] [place] [address] ALP [Catalytic activity/Vol] 53 U/L Normal 38-126 [facility] Comment on above: Performed By: #### H EMOG #### [facility] [address] [place] [address] ALT [Catalytic activity/Vol] 20 U/L Normal 0-49 [facility] Comment on above: Result Comment: The ALT test is performed by an updated assay method. Please note that the reference intervals have been changed and are now sex specific. Performed By: #### H EMOG #### [facility] [address] [place] [address] Anion gap [Moles/Vol] 9 mmol/L Normal 3-13 [facility] Comment on above: Performed By: #### H EMOG #### [facility] [address] [place] [address] AST [Catalytic activity/Vol] 35 U/L Normal 15-46 [facility] Comment on above: Performed By: #### H EMOG #### [facility] [address] [place] [address] Bilirubin [Mass/Vol] 0.9 mg/dL Normal 0.2-1.3 [facility] Comment on above: Performed By: #### H EMOG #### [facility] [address] [place] [address] CO2 [Moles/Vol] 24 mmol/L Normal 22-30 [facility] Comment on above: Performed By: #### H EMOG #### [facility] [address] [place] [address] Creatinine [Mass/Vol] 0.92 mg/dL Normal 0.52-1.25 [facility] Comment on above: Performed By: #### H EMOG #### [place] [address] [place] [address] GFR/1.73 sq M.predicted among blacks MDRD (S/P/Bld) [Vol rate/Area] 89.7 mL/min/{1.73_m2} Normal >60 [facility] Comment on above: Performed By: #### H EMOG #### [facility] [address] [place] [address] GFR/1.73 sq M.predicted among non-blacks MDRD (S/P/Bld) [Vol rate/Area] 77.4 mL/min/{1.73_m2} Normal >60 [facility] Comment on above: Result Comment: [facility] [...] secretion. Performed By: #### H EMOG #### [facility] [address] [place] [address] Glucose [Mass/Vol] 98 mg/dL Normal 70-100 [facility] Comment on above: Performed By: #### H EMOG #### [facility] [address] [place] [address] Protein [Mass/Vol] 7.1 g/dL Normal 6.3-8.2 [facility] Comment on above: Performed By: #### H EMOG #### [facility] [address] [place] [address] Urea nitrogen [Mass/Vol] 9 mg/dL Normal 7-17 [facility] Comment on above: Performed By: #### H EMOG #### [facility] [address] [place] [address] Potassium [Moles/Vol] 4.0 mmol/L Normal 3.5-5.1 [facility] Comment on above: Performed By: #### H EMOG #### [facility] [address] [place] [address] Albumin [Mass/Vol] 4.2 g/dL Normal 3.5-5.0 [facility] Comment on above: Performed By: #### H EMOG #### [facility] [address] [place] [address] Chloride [Moles/Vol] 101 mmol/L Normal 98-107 [facility] Comment on above: Performed By: #### H EMOG #### [facility] [address] [place] [address] Sodium [Moles/Vol] 134 mmol/L Low 135-145 [facility] Comment on above: Performed By: #### H EMOG #### [facility] [address] [place] [address] Complete Urinalysison 2021 Appearance (U) Clear Normal Clear [facility] Comment on above: Result Comment: . Performed By: #### C UA2 #### [facility] [address] [place] [address] Bacteria LM.HPF (Urine sed) [#/Area] Negative Normal Negative [facility] Comment on above: Result Comment: . Performed By: #### C UA2 #### [facility] [address] [place] [address] Bilirubin,Urine Negative Normal Negative [facility] Comment on above: Result Comment: . Performed By: #### C UA2 #### [facility] [address] [place] [address] Cast, Hyaline 11 - 25 Abnormal Negative [facility] Comment on above: Result Comment: . Performed By: #### C UA2 #### [facility] [address] [place] [address] Color (U) Light-Yellow Normal Lt. Yellow [facility] Comment on above: Result Comment: . Performed By: #### C UA2 #### [facility] [address] [place] [address] Glucose Ql (U) Normal Normal Normal (<70) [facility] Comment on above: Result Comment: . Performed By: #### C UA2 #### [facility] [address] [place] [address] Ketone,Urine Negative Normal Negative [facility] Comment on above: Result Comment: . Performed By: #### C UA2 #### [facility] [address] [place] [address] Leukocytes,Urine 75 Pennie/uL Abnormal Negative [facility] Comment on above: Result Comment: . Performed By: #### C UA2 #### [facility] [address] [place] [address] Mucous Threads Few Normal Negative [facility] Comment on above: Result Comment: . Performed By: #### C UA2 #### [place] [address] [place] [address] Nitrites,Urine Negative Normal Negative [facility] Comment on above: Result Comment: . Performed By: #### C UA2 #### [facility] [address] [place] [address] Occult Blood,Urine Negative Normal Negative [facility] Comment on above: Result Comment: . Performed By: #### C UA2 #### [facility] [address] [place] [address] pH,Urine 6.5 Normal 5.0-8.0 [facility] Comment on above: Result Comment: . Performed By: #### C UA2 #### [place] [address] [place] [address] Protein (U) [Mass/Vol] 20 mg/dL Abnormal Negative [facility] Comment on above: Result Comment: . Performed By: #### C UA2 #### [place] [address] [place] [address] RBC, Urine 0 - 2 Normal 0-2 [facility] Comment on above: Result Comment: . Performed By: #### C UA2 #### [place] [address] [place] [address] Specific Laurel,Urine 1.014 Normal 1.005 - 1.030 [facility] Comment on above: Result Comment: . Performed By: #### C UA2 #### [facility] [address] [place] [address] Squamous Epithelial 0 - 2 Normal 3-5 [facility] Comment on above: Result Comment: . Performed By: #### C UA2 #### [facility] [address] [place] [address] Urobilinogen,Urine Normal Normal Normal (0-1) [facility] Comment on above: Result Comment: . Performed By: #### C UA2 #### [facility] [address] [place] [address] WBC, Urine 3 - 5 Normal 0-5 [facility] Comment on above: Result Comment: . Performed By: #### C UA2 #### [facility] [address] [place] [address] Comprehensive Metabolic Pane khris 06-05-2021 Albumin [Mass/Vol] [...] - 1.25 mg/dL [facility] EGFR IF NonAfrican [place] 77.4 mL/min >60 [facility] Comment on above: [...] [Mass/Vol] 9 mg/dL 7 - 17 mg/dL [facility] Provider [facility]on ED Provider Note Emergency Department Encounter [facility] ED Patient: Doroteo Gong : 1940 Date of Evaluation: 06/05/2021 ED Supervising Physician: DAIANA CSHREIBER MD I independently examined and evaluated Doroteo [...] are mis-transcribed.) DAIANA SCHREIBER MD Acute Care [facility] Daiana Schreiber MD 06/05/212005 [facility] ED Provider Note [facility] ED eMERGENCY dEPARTMENT eNCOUnter Pt Name: Doroteo [...] Social History (more content not included)... Normal [facility] Hemogram w/ Autodiffon 06-05 Abs Baso Cnt 0.1 10*3/uL Normal 0.0-0.2 [facility] Comment on above: Performed By: #### H EMOG #### [facility] [address] [place] [address] Abs Neutrophile Cnt 6.1 10*3/uL Normal 1.8-7.0 [facility] Comment on above: Performed By: #### H EMOG #### [facility] [address] [place] [address] Basophils/100 WBC (Bld) 1.0 % Normal 0.0-2.0 [facility] Comment on above: Performed By: #### H EMOG #### [facility] [address] [place] [address] Eosinophils (Bld) [#/Vol] 0.3 10*3/uL Normal 0.0-0.5 [facility] Comment on above: Performed By: #### H EMOG #### [facility] [address] [place] [address] Eosinophils/100 WBC (Bld) 2.6 % Normal 1.0-6.0 [facility] Comment on above: Performed By: #### H EMOG #### [facility] [address] [place] [address] Erythrocyte distribution width (RBC) [Ratio] 13.8 % Normal 11.5-14.5 [facility] Comment on above: Performed By: #### H EMOG #### [facility] [address] [place] [address] Granulocytes/100 WBC (Bld) 62.6 % Normal 40.0-80.0 [facility] Comment on above: Performed By: #### H EMOG #### [facility] [address] [place] [address] Hematocrit (Bld) [Volume fraction] 43.4 % Normal 40.0-52.0 [facility] Comment on above: Performed By: #### H EMOG #### [facility] [address] [place] [address] Hemoglobin (Bld) [Mass/Vol] 14.8 g/dL Normal 13.0-18.0 [facility] Comment on above: Performed By: #### H EMOG #### [facility] [address] [place] [address] Lymphocytes (Bld) [#/Vol] 2.1 10*3/uL Normal 1.0-4.3 [facility] Comment on above: Performed By: #### H EMOG #### [facility] [address] [place] [address] Lymphocytes/100 WBC (Bld) 22.0 % Normal 20.0-40.0 [facility] Comment on above: Performed By: #### H EMOG #### [facility] [address] [place] [address] MCH (RBC) [Entitic mass] 30.2 pg Normal 26.0-34.0 [facility] Comment on above: Performed By: #### H EMOG #### [facility] [address] [place] [address] MCHC 34.0 % Normal 32.0-36.0 [facility] Comment on above: Performed By: #### H EMOG #### [facility] [address] [place] [address] MCV (RBC) [Entitic vol] 88.8 fL Normal 80.0-98.0 [facility] Comment on above: Performed By: #### H EMOG #### [facility] [address] [place] [address] Monocytes (Bld) [#/Vol] 1.1 10*3/uL High 0.0-0.8 [facility] Comment on above: Performed By: #### H EMOG #### [facility] [address] [place] [address] Monocytes/100 WBC (Bld) 11.8 % High 2.0-10.0 [facility] Comment on above: Performed By: #### H EMOG #### [facility] [address] [place] [address] Platelet mean volume (Bld) [Entitic vol] 7.6 fL Normal 7.4-10.4 [facility] Comment on above: Performed By: #### H EMOG #### [facility] [address] [place] [address] Platelets (Bld) [#/Vol] 417 10*3/uL Normal 140-440 [facility] Comment on above: Performed By: #### H EMOG #### [facility] [address] [place] [address] RBC (Bld) [#/Vol] 4.88 10*6/uL Normal 4.40-5.90 [facility] Comment on above: Performed By: #### H EMOG #### [facility] [address] [place] [address] WBC (Bld) [#/Vol] 9.7 10*3/uL Normal 3.6-10.7 [facility] Comment on above: Performed By: #### [facility] #### [facility] [address] [place] [address] Lipaseon 06-05-2021 Lipase [Catalytic activity/Vol] 40 U/L Normal 23-300 [facility] Comment on above: Performed By: #### H EMO #### [facility] [address] [place] [address] Lipase [Catalytic activity/Vol] 40 U/L 23 - 300 U/L [facility] No Panel Informationon 06-05 Test Performed by [facility], [address] [place] [address] [facility] Urinalysison 06-05-2021 Appearance (U) Clear [...] Protein (U) [Mass/Vol] 20 mg/dL Abnormal Negative [facility] Comment on above: . RBC, UA 0-2 0 - 2 /[HPF] [facility] Comment on above: . Specific Laurel, Urine 1.014 [facility] Comment on above: . Squam Epithel, UA 0-2 3 - 5 /[HPF] [facility] Comment on above: . Urobilinogen, Urine Normal Normal (0-1) mg/dL [facility] Comment on above: . WBC, UA 3-5 0 - 5 /[HPF] [facility] Comment on above: . Test Performed by [facility], [address], [place], [place] [address] [place] [address] LAB [facility] CR Chest PA/LATon 02-25-2021 CR Chest PA/LAT Patient Name: DOROTEO GONG Diagnostic Radiology ACCESSION EXAM DATE/TIME PROCEDURE ORDERING PROVIDER [id number] 02/25/2021 11:47 EST CR Chest PA and LAT [id number] -SUSANNE THRASHER CPT code 19427 Reason For Exam (CR Chest PA and [...] Transcribed Date and Time: 02/25/2021 12:22 Normal [facility] ED Provider Noteon ED Provider Note [facility] ED eMERGENCY dEPARTMENT eNCOUnter Pt Name: Doroteo [...] Living Expen (more content not included)... Normal [facility] XR CHEST (2 VW)on 02-25-2021 Patient Name: DOROTEO BELTRÁN Diagnostic Radiology ACCESSION EXAM DATE/TIME PROCEDURE ORDERING PROVIDER [id number] 02/25/2021 11:47 EST CR Chest PA & LAT [id number] -SUSANNE THRASHER CPT code 16151 Reason For Exam (CR Chest PA & [...] NELSON Transcribed Date and Time: 02/25/2021 12:22 [facility] Teddy Barrett M D - 02/25/2021 Patient Name: DOROTEO GONG Diagnostic Radiology ACCESSION EXAM DATE/TIME PROCEDURE ORDERING PROVIDER [id number] 02/25/2021 11:47 EST CR Chest PA & LAT [id number] -SUSANNE THRASHER CPT code 74993 Reason For Exam (CR Chest PA & [...] NELSON Transcribed Date and Time: 02/25/2021 12:22 [facility] Work Phone: Radiology Study observation (narrative) [facility] Work Phone: XR CHEST (2 VW)Ordered By: Pia Barrett on 02-25-2021 [facility] Work Phone: CR Chest PA/LATon 02-11-2021 CR Chest PA/LAT [facility]: [id number] Diagnostic Radiology ACCESSION EXAM DATE/TIME PROCEDURE ORDERING PROVIDER [id number] 02/11/2021 16:29 EDT CR Chest PA and LAT JOANN KLINE CPT code 87379 Reason For Exam (CR Chest PA and [...] Transcribed Date and Time: 02/11/2021 5:14 Normal [facility] Complete PFT Study Pre and P ost BronchodilatorOrdered By: Joann Kline on 01-31-2021 Name: DOROTEO GONG PatientID: [id number] Gender: Male Birthdate: 1940 Study Date: 01/31/2021 1:07:45 Age: 80 Race: White or Height: 60.0 in, 152.4 cm Weight: 189.0 lbs, 85.9 kg Smoke Status: Never Pack Years: Tbco Prod: Cigarettes Ordering Physician: [id number] Interpreting Physician: [id number] Consumer Advocate: GABI Han Location: [facility] Diagnosis: SOB Spirometry Units Pred PreDrug Pre%Pred Post Post%Pred %Change FVC L,btps 2.42 1.75 72. 1.92 79. 10. FEV1 L,btps 1.64 1.31 80. 1.45 88. 10. FEV1/FVC (%) % 71. 75. 105. 75. 106. 0. CSW56-06% L/s 1.06 0.98 93. 1.20 114. 23. [...] /MIP cmH2O -58.57 PEmax /MEP cmH2O 106.29 [employer] NOT[employer] Good Patient effort. Consistent results. Best [...] a spacer that was instructed and dispensed. 6[address]- PRE/[place] [address]- DLCO 58207- FRC GAS Tests to perform: [id number] - FULL PFT STUDY WITH BRONCHODILATOR PHYSICIAN INTERPRETATION Mild restrictive ventilatory impairment with moderately decrease in gas Exchange may be compatible with the Dx of restrictive lung disease Total lung Capacity is normal Border line response to BD therapy [facility] Work Phone: [place], [facility] Incoming Cardiology Results From [employer] - 01/31/2021 10:34 PM EDT Name: DOROTEO GONG PatientID: [id number] Gender: Male Birthdate: 1940 Study Date: 01/31/2021 1:07:45 Age: 80 Race: White or Height: 60.0 in, 152.4 cm Weight: 189.0 lbs, 85.9 kg Smoke Status: Never Pack Years: Tbco Prod: Cigarettes Ordering Physician: [id number] Interpreting Physician: [id number] Consumer Advocate: GABI Testing Location: [facility] Diagnosis: SOB Spirometry Units Pred PreDrug Pre%Pred Post Post%Pred %Change FVC L,btps 2.42 1.75 72. 1.92 79. 10. FEV1 L,btps 1.64 1.31 80. 1.45 88. 10. FEV1/FVC (%) % 71. 75. 105. 75. 106. 0. SAY95-25% L/s 1.06 0.98 93. 1.20 114. 23. [...] /MIP cmH2O -58.57 PEmax /MEP cmH2O 106.29 [employer] Good Patient effort. Consistent results. Best [...] a spacer that was instructed and dispensed. 95[address]- PRE/[place] [address]- DLCO 20896- FRC GAS Tests to perform: 8212178 - FULL PFT STUDY WITH BRONCHODILATOR PHYSICIAN INTERPRETATION Mild restrictive ventilatory impairment with moderately decrease in gas Exchange may be compatible with the Dx of restrictive lung disease Total lung Capacity is normal Border line response to BD therapy [facility] Work Phone: [facility] Work Phone: CT CHEST W CONTRASTOrdered B y: Jesse Sobia on 10-08-2020 Patient [facility]: [id number] Computed Tomography ACCESSION EXAM DATE/TIME PROCEDURE ORDERING PROVIDER [id number] 10/08/2020 10:[address] Thorax w/ Contrast MD RAMSAY ARIFA CPT code 69388 Q9967 Reason For Exam (CT Thorax w/ [...] Phone: [place], [facility] Incoming Radiology Results From [facility] - 10/08/2020 11:00 AM EDT Patient [facility]: [id number] Computed Tomography ACCESSION EXAM DATE/TIME PROCEDURE ORDERING PROVIDER [id number] 10/08/2020 10:[address] Thorax w/ Contrast MD SOBIA, [facility] CPT code 06868 Q9967 Reason For Exam (CT Thorax w/ [...] and Time: 10/08/2020 11:00 [facility] Work Phone: [facility] Work Phone: CT Chest w/ Contraston 10-08 CT Chest w/ Contrast Patient Name: DOROTEO BELTRÁN [facility]#: [id number] Computed Tomography ACCESSION EXAM DATE/TIME PROCEDURE ORDERING PROVIDER [id number] 10/08/2020 10:[address] Thorax w/ Contrast MD SOBIA, JESSE CPT code 22541 Q9967 Reason For Exam (CT Thorax w/ [...] Transcribed Date and Time: 10/08/2020 11:00 Normal [facility] CBCOrdered By: Tono figueroa 10-07-2020 Hematocrit (Bld) [Volume fraction] 43.5 % 40.0 - 52.0 % [facility] Work Phone: Hemoglobin.gastrointesti nal spec 1 Ql (Stl) 15.2 g/dL 13.0 - 18.0 g/dL [facility] Work Phone: MCH (RBC) [Entitic mass] 30.7 [...] 10*3/uL [facility] Work Phone: Test Performed by [address] [address] [facility] Work Phone: [facility] Work Phone: CBC Auto DifferentialOrdered By: Tono Strong on 10-07-2020 Absolute Baso # 0.1 10*3/uL 0.0 - 0.2 10*3/uL [facility] Work Phone: Absolute Neut # 3.3 10*3/uL 1.8 - 7.0 10*3/uL [facility] Work Phone: Basophils/100 WBC (Bld) 1.2 % 0.0 - 2.0 % [facility] Work Phone: Eosinophils (Bld) [#/Vol] 0.4 10*3/uL 0.0 - 0.5 10*3/uL [employer] Work Phone: 1 Eosinophils/100 WBC (Bld) 5.5 % 1.0 - 6.0 % [employer] Work Phone: 1 Granulocytes/100 WBC (Bld) 44.4 % 40.0 - 80.0 % [employer] Work Phone: Hematocrit (Bld) [Volume fraction] 43.2 % 40.0 - 52.0 % [employer] Work Phone: Hemoglobin.gastrointesti nal spec 1 Ql (Stl) 15.1 g/dL 13.0 - 18.0 g/dL [employer] Work Phone: 1 Interpretation and review of laboratory results Abnormal [employer] Work Phone: Lymphocytes (Bld) [#/Vol] 2.6 10*3/uL 1.0 - 4.3 10*3/uL [employer] Work Phone: Lymphocytes/100 WBC (Bld) 34.3 % 20.0 - 40.0 % [employer] Work Phone: 1 MCH (RBC) [Entitic mass] 30.5 pg 26. 0 - 34.0 pg [employer] Work Phone: MCHC (RBC) [Mass/Vol] 34.8 % 32.0 - 36.0 % [employer] Work Phone: MCV (RBC) [Entitic vol] 87.5 fL 80.0 - 98.0 fL [employer] Work Phone: Monocytes (Bld) [#/Vol] 1.1 10*3/uL High 0.0 - 0.8 10*3/uL [employer] Work Phone: 1 Monocytes/100 WBC (Bld) 14.6 % High 2.0 - 10.0 % [employer] Work Phone: Platelet distribution width (Bld) [Ratio] 14.3 % 11.5 - 14.5 % [employer] Work Phone: Platelet mean volume (Bld) [Entitic vol] 7.6 fL 7.4 - 10.4 fL [employer] Work Phone: [phone] Platelets (Bld) [#/Vol] 410 10*3/uL 140 - 440 10*3/uL [employer] Work Phone: [phone] RBC (Bld) [#/Vol] 4.94 10*6/uL 4.40 - 5.9 0 10*6/uL [employer] Work Phone: [phone] WBC (Bld) [#/Vol] 7.5 10*3/uL 3.6 - 10.7 10*3/uL [employer] Work Phone: [phone] Test Performed by [facility], [address] [place] [address] [employer] Work Phone: [phone] [facility] Work Phone: [phone] Comp Metabolic Panelon 10-07 ALP [Catalytic activity/Vol] 45 U/L Normal 38-126 [facility] Comment on above: Performed By: #### H EMOG #### [facility] [address] [place] [address] ALT [Catalytic activity/Vol] 21 U/L Normal 0-49 [facility] Comment on above: Result Comment: The ALT test is performed by an updated assay method. Please note that the reference intervals have been changed and are now sex specific. Performed By: #### H EMOG #### [facility] [address] [place] [address] Anion gap [Moles/Vol] 6 mmol/L Normal 3-13 [facility] Comment on above: Performed By: #### H EMOG #### [facility] [address] [place] [address] AST [Catalytic activity/Vol] 38 U/L Normal 15-46 [facility] Comment on above: Performed By: #### H EMOG #### [facility] [address] [place] [address] Calcium [Mass/Vol] 9.4 mg/dL Normal 8.4-10.4 [facility] Comment on above: Performed By: #### H EMOG #### [facility] [address] [place] [address] CO2 [Moles/Vol] 24 mmol/L Normal 22-30 [facility] Comment on above: Performed By: #### H EMOG #### [facility] [address] [place] [address] Glucose [Mass/Vol] 91 mg/dL Normal 70-100 [facility] Comment on above: Performed By: #### H EMOG #### [facility] [address] [place] [address] Protein [Mass/Vol] 6.5 g/dL Normal 6.3-8.2 [facility] Comment on above: Performed By: #### H EMOG #### [facility] [address] [place] [address] Urea nitrogen [Mass/Vol] 9 mg/dL Normal 7-20 [facility] Comment on above: Performed By: #### H EMOG #### [facility] [address] [place] [address] Bilirubin [Mass/Vol] 1.0 mg/dL Normal 0.2-1.3 [facility] Comment on above: Performed By: #### H EMOG #### [facility] [address] [place] [address] Creatinine [Mass/Vol] 0.69 mg/dL Normal 0.52-1.25 [facility] Comment on above: Performed By: #### H EMOG #### [facility] [address] [place] [address] GFR/1.73 sq M.predicted among blacks MDRD (S/P/Bld) [Vol rate/Area] mL/min/{1.73_m2} Normal >60 [facility] Comment on above: Performed By: #### H EMOG #### [facility] [address] [place] [address] GFR/1.73 sq M.predicted among non-blacks MDRD (S/P/Bld) [Vol rate/Area] 89.1 mL/min/{1.73_m2} Normal >60 [facility] Comment on above: Result Comment: KDIG O [...] secretion. Performed By: #### H EMOG #### [facility] [address] [place] [address] Albumin [Mass/Vol] 4.0 g/dL Normal 3.5-5.0 [facility] Comment on above: Performed By: #### H EMOG #### [facility] [address] [place] [address] Chloride [Moles/Vol] 98 mmol/L Normal 98-107 [facility] Comment on above: Performed By: #### H EMOG #### [facility] [address] [place] [address] Potassium [Moles/Vol] 3.9 mmol/L Normal 3.5-5.1 [facility] Comment on above: Performed By: #### H EMOG #### [facility] [address] [place] [address] Sodium [Moles/Vol] 129 mmol/L Low 135-145 [facility] Comment on above: Performed By: #### H EMOG #### [facility] [address] [place] [address] Comprehensive Metabolic Pane lOrdered By: Tono Strong on 10-07-2020 Albumin [Mass/Vol] 4.0 g/dL 3.5 - 5.0 g/dL [facility] Work Phone: ALP (Bld) [Catalytic activity/Vol] 45 U/L 38 - 126 U/L [facility] Work Phone: ALT [Catalytic activity/Vol] 21 U/L 0 - 49 U/L [facility] Work Phone: Comment on above: The ALT test is perf ormed by an updated assay method. Please note that the reference intervals have been changed and are now sex specific. Anion gap [Moles/Vol] 6 mmol/L 3 - 13 mmol/L [employer] Work Phone: AST [Catalytic activity/Vol] 38 U/L 15 - 46 U/L [facility] Work Phone: Bilirubin [Mass/Vol] 1.0 mg/dL 0.2 - 1 .3 mg/dL [facility] Work Phone: Calcium [Mass/Vol] 9.4 mg/dL 8.4 - 10. 4 mg/dL [employer] Work Phone: Chloride [Moles/Vol] 98 mmol/L 98 - 10 7 mmol/L [facility] Work Phone: CO2 [Moles/Vol] 24 mmol/L 22 - 30 mmol/L [employer] Work Phone: Creatinine [Mass/Vol] 0.69 mg/dL 0.52 - 1.25 mg/dL [employer] Work Phone: EGFR IF NonAfrican [place] 89.1 mL/min >60 [employer] Work Phone: Comment on above: KDIGO guidelines [...] MDRD (S/P/Bld) [Vol rate/Area] mL/min/{1.73_m2} >60 mL/min [employer] Work Phone: Glucose [Mass/Vol] 91 mg/dL 70 - 100 mg/dL [facility] Work Phone: Interpretation and review of laboratory results Abnormal [facility] Work Phone: Potassium [Moles/Vol] 3.9 mmol/L 3.5 - 5.1 mmol/L [facility] Work Phone: Sodium [Moles/Vol] 129 mmol/L Low 135 - 145 mmol/L [facility] Work Phone: Urea nitrogen (BldV) [Mass/Vol] 9 mg/dL 7 - 20 mg/dL [facility] Work Phone: ECHO Complete 2D W Doppler W ColorOrdered By: Tono Strong on 10-07-2020 TRANSTHORACIC ECHOCARDIOGRAM PATIENT: Doroteo Gong STUDY DATE: 10/07/2020 : 1940 AGE: 79 HT/WT: 152.4 cm (60 81.7 kg in) (179.6 lb) GENDER: M BP: 133 / 78 LOCATION: [facility] PATIENT [facility] STATUS: *ORDERING PHYSICIAN: * Tono Strong *READING PHYSICIAN: * Lawson Guy, *FRONT SIGHT ATTACHER: * Jenni Mo MD -- INDICATIONS: Suspected [...] LV E/e', medial (more content not included)... [employer] Work Phone: [place], [facility] Incoming Cardiology Results From Kadeem/Andrew - 10/07/2020 1:27 PM EDT TRANSTHORACIC ECHOCARDIOGRAM PATIENT: Doroteo Gong STUDY DATE: 10/07/2020 : 1940 AGE: 79 HT/WT: 152.4 cm (60 81.7 kg in) (179.6 lb) GENDER: M BP: 133 / 78 LOCATION: [facility] PATIENT Inpatient [facility] STATUS: *ORDERING PHYSICIAN: * Tono Strong *READING PHYSICIAN: * Lawson Guy, *FRONT SIGHT ATTACHER: * Jenni Mo MD -- INDICATIONS: Suspected [...] valve peak v (more content not included)... [employer] Work Phone: [employer] Work Phone: Echo Complete w/wo Contrasto n 10-07-2020 Echo Complete w/wo Contrast Patient Name: DOROTEO GONG Ultrasound ACCESSION EXAM DATE/TIME PROCEDURE ORDERING PROVIDER [id number] 10/07/2020 11:25 EDT Echo Complete w/wo 5640 -TONO STRONG Reason For Exam (Echo Complete w/wo Contrast) suspected chf Report TRANSTHORACIC ECHOCARDIOGRAM PATIENT: Doroteo Gong STUDY DATE: 10/07/2020 : 1940 AGE: 79 HT/WT: 152.4 cm (60 81.7 kg in) (179.6 lb) GENDER: M BP: 133 / 78 LOCATION: [facility] PATIENT [facility] STATUS: *ORDERING PHYSICIAN: * Tono Strong *READING PHYSICIAN: * Lawson Guy, *FRONT SIGHT ATTACHER: * Jenni Mo MD -- INDICATIONS: Suspected [...] LVOT peak (more content not included)... Normal [facility] Glucose,Bedsideon 10-07-2020 Glucose [Mass/Vol] 98 mg/dL Normal 70-100 [facility] Comment on above: Result Comment: Test performed by glucose meter. Results may be 10%-15% lower than serum/plasma values. (CLIA ID [id number]) Performed By: #### H EMOG #### [facility] [address] [place] [address] Hemogramon 10-07-2020 Erythrocyte distribution width (RBC) [Ratio] 14.3 % Normal 11.5-14.5 [facility] Comment on above: Performed By: #### H EMOG #### [facility] [address] [place] [address] Hematocrit (Bld) [Volume fraction] 43.5 % Normal 40.0-52.0 [facility] Comment on above: Performed By: #### H EMOG #### [facility] [address] [place] [address] Hemoglobin (Bld) [Mass/Vol] 15.2 g/dL Normal 13.0-18.0 [facility] Comment on above: Performed By: #### H EMOG #### [facility] [address] [place] [address] MCH (RBC) [Entitic mass] 30.7 pg Normal 26.0-34.0 [facility] Comment on above: Performed By: #### H EMOG #### [facility] [address] [place] [address] MCHC 35.0 % Normal 32.0-36.0 [facility] Comment on above: Performed By: #### H EMOG #### [facility] [address] [place] [address] MCV (RBC) [Entitic vol] 87.7 fL Normal 80.0-98.0 [facility] Comment on above: Performed By: #### H EMOG #### [facility] [address] [place] [address] Platelet mean volume (Bld) [Entitic vol] 7.8 fL Normal 7.4-10.4 [facility] Comment on above: Performed By: #### H EMOTriston #### [facility] [address] [place] [address] Platelets (Bld) [#/Vol] 390 10*3/uL Normal 140-440 [facility] Comment on above: Performed By: #### H EMOTriston #### [facility] [address] [place] [address] RBC (Bld) [#/Vol] 4.96 10*6/uL Normal 4.40-5.90 [facility] Comment on above: Performed By: #### H EMOTriston #### [place] [address] [place] [address] WBC (Bld) [#/Vol] 7.6 10*3/uL Normal 3.6-10.7 [facility] Comment on above: Performed By: #### H EMOTriston #### [facility] [address] [place] [address] Hemogram w/ Autodiffon 10-07 Abs Baso Cnt 0.1 10*3/uL Normal 0.0-0.2 [facility] Comment on above: Performed By: #### C MP3, HEMDF, TROPN #### [facility] [address] [place] [address] Abs Neutrophile Cnt 3.3 10*3/uL Normal 1.8-7.0 [facility] Comment on above: Performed By: #### C MP3, HEMDF, TROPN #### [facility] [address] [place] [address] Basophils/100 WBC (Bld) 1.2 % Normal 0.0-2.0 [facility] Comment on above: Performed By: #### C MP3, HEMDF, TROPN #### [facility] [address] [place] [address] Eosinophils (Bld) [#/Vol] 0.4 10*3/uL Normal 0.0-0.5 [facility] Comment on above: Performed By: #### C MP3, HEMDF, TROPN #### [facility] [address] [place] [address] Eosinophils/100 WBC (Bld) 5.5 % Normal 1.0-6.0 [facility] Comment on above: Performed By: #### C MP3, HEMDF, TROPN #### [facility] [address] [place] [address] Erythrocyte distribution width (RBC) [Ratio] 14.3 % Normal 11.5-14.5 [facility] Comment on above: Performed By: #### C MP3, HEMDF, TROPN #### [facility] [address] [place] [address] Granulocytes/100 WBC (Bld) 44.4 % Normal 40.0-80.0 [facility] Comment on above: Performed By: #### C MP3, HEMDF, TROPN #### [facility] [address] [place] [address] Hematocrit (Bld) [Volume fraction] 43.2 % Normal 40.0-52.0 [facility] Comment on above: Performed By: #### C MP3, HEMDF, TROPN #### [facility] [address] [place] [address] Hemoglobin (Bld) [Mass/Vol] 15.1 g/dL Normal 13.0-18.0 [facility] Comment on above: Performed By: #### C MP3, HEMDF, TROPN #### [facility] [address] [place] [address] Lymphocytes (Bld) [#/Vol] 2.6 10*3/uL Normal 1.0-4.3 [facility] Comment on above: Performed By: #### C MP3, HEMDF, TROPN #### [facility] [address] [place] [address] Lymphocytes/100 WBC (Bld) 34.3 % Normal 20.0-40.0 [facility] Comment on above: Performed By: #### C MP3, HEMDF, TROPN #### [facility] [address] [place] [address] MCH (RBC) [Entitic mass] 30.5 pg Normal 26.0-34.0 [facility] Comment on above: Performed By: #### C MP3, HEMDF, TROPN #### [facility] [address] [place] [address] MCHC 34.8 % Normal 32.0-36.0 [facility] Comment on above: Performed By: #### C MP3, HEMDF, TROPN #### [facility] [address] [place] [address] MCV (RBC) [Entitic vol] 87.5 fL Normal 80.0-98.0 [facility] Comment on above: Performed By: #### C MP3, HEMDF, TROPN #### [facility] [address] [place] [address] Monocytes (Bld) [#/Vol] 1.1 10*3/uL High 0.0-0.8 [facility] Comment on above: Performed By: #### C MP3, HEMDF, TROPN #### [facility] [address] [place] [address] Monocytes/100 WBC (Bld) 14.6 % High 2.0-10.0 [facility] Comment on above: Performed By: #### C MP3, HEMDF, TROPN #### [facility] [address] [place] [address] Platelet mean volume (Bld) [Entitic vol] 7.6 fL Normal 7.4-10.4 [facility] Comment on above: Performed By: #### C MP3, HEMDF, TROPN #### [facility] [address] [place] [address] Platelets (Bld) [#/Vol] 410 10*3/uL Normal 140-440 [facility] Comment on above: Performed By: #### C MP3, HEMDF, TROPN #### [facility] [address] [place] [address] RBC (Bld) [#/Vol] 4.94 10*6/uL Normal 4.40-5.90 [facility] Comment on above: Performed By: #### C MP3, HEMDF, TROPN #### [facility] [address] [place] [address] WBC (Bld) [#/Vol] 7.5 10*3/uL Normal 3.6-10.7 [facility] Comment on above: Performed By: #### C MP3, HEMDF, TROPN #### [facility] [address] [place] [address] MAGNESIUMOrdered By: Tono Strong on 10-07-2020 Magnesium [Mass/Vol] 1.7 mg/dL 1.6 - 2 .3 mg/dL [facility] Work Phone: Magnesiumon 10-07-2020 Magnesium [Mass/Vol] 1.7 mg/dL Normal 1.6-2.3 [facility] Comment on above: Performed By: #### H EMOG #### [facility] [address] [place] [address] No Panel InformationOrdered By: Tono Strong on 10-07-2020 Test Performed by [facility], [facility] [address] [place] [address] [facility] Work Phone: [facility] Work Phone: POCT GlucoseOrdered By: Emory Daly on 10-07-2020 Glucose [Mass/Vol] 98 mg/dL 70 - 100 mg/dL [facility] Work Phone: Comment on above: Test performed by ucose meter. Results may be 10%-15% lower than serum/plasma values. (CLIA ID [id number]) Test Performed by [facility], [address] [place] [address] [facility] Work Phone: [facility] Work Phone: Brain Natriuretic PeptideOrd ered By: Tono Strong on 10-06-2020 Natriuretic peptide B (Bld) [Mass/Vol] 79 pg/mL 0 - 450 pg/mL [facility] Work Phone: COVID and Resp PCR Panelon 0 10-06-2020 SARS-CoV-2 (COVID-19) RNA JANIE+probe Ql (Unsp spec) COVID and Resp PCR Panel --> Status: F NEGATIVE: No targets were detected by the [employer] Upper Respiratory Pathogens PCR Panel. _ Expected Result: Not Detected The [employer] Upper Respiratory Pathogens PCR Panel can detect [...] management decisions. This assay was developed by [employer] and distributed under an Emergency Use Authorization (EUA) granted by the FDA for the qualitative detection of SARS-CoV-2 nucleic acid. Provider and patient fact sheets can be found at https://www.fda.gov/med ia/866213/download and https://www.fda.gov/med ia/735480/download. Respiratory Pathogens PCR Panel. _ Expected Result: Not Detected The [employer] Upper Respiratory Pathogens PCR Panel can detect [...] management decisions. This assay was developed by [employer] and distributed under an Emergency Use Authorization (EUA) granted by the FDA for the qualitative detection of SARS-CoV-2 nucleic acid. Provider and patient fact sheets can be found at https://www.fda.gov/med ia/363214/download and https://www.fda.gov/med ia/616495/download. Normal [facility] Comment on above: Performed By: #### B FRP2 #### [address] [address] CR Abdomen APon 10-06-2020 CR Abdomen AP Patient Name: DOROTEO GONG Diagnostic Radiology ACCESSION EXAM DATE/TIME PROCEDURE ORDERING PROVIDER [id number] 10/06/2020 05:04 EDT CR Abdomen AP Alonso QUEZADAANDAROOPA CPT code 65051 Reason For Exam (CR Abdomen AP) constipation Report Indication: Constipation. Findings and impression: Frontal abdomen. There is increased gas within bowel, nonspecific. No free air. Lung bases clear. The findings may reflect constipation in the appropriate setting. Consider follow-up. Report Dictated on Workstation: [email or web address] Final Dictating Physician: MD MAURO JOHN Signed Date and Time: 10/06/2020 5:46 am Signed by: MD MAURO JOHN Transcribed Date and Time: 10/06/2020 5:47 Normal [facility] EKG 12 Lead - Chest PainOrde red By: Garima Rivero on 10-06-2020 [facility] Test Date: 2020-10-05 Pat Name: DOROTEO GONG Department: 01 Room: 254 Gender: M Consumer Advocate: TODD : 1940 Requested By: GARIMA RIVERO Order Number: [id number] Reading MD: Mark Marrero Measurements Intervals [place] Rate: 88 P: 20 WY: 208 QRS: -87 QRSD: 138 T: 1 QT: 388 QTc: 470 Interpretive Statements SINUS RHYTHM RIGHT BUNDLE BRANCH BLOCK LAFB Electronically Signed On 10-06-2020 13:42:23 EDT by Mark MCINTYRE Work Phone: [place], [facility] Incoming Cardiology Results From [facility] - 10/06/2020 1:43 PM EDT [facility] Test Date: 2020-10-05 Pat Name: DOROTEO GONG Department: 01 Room: 254 Gender: M Consumer Advocate: TODD : 1940 Requested By: GARIMA RIVERO Order Number: [id number] Reading MD: Mark Marrero Measurements Intervals [place] Rate: 88 P: 20 WY: 208 QRS: -87 QRSD: 138 T: 1 QT: 388 QTc: 470 Interpretive Statements SINUS RHYTHM RIGHT BUNDLE BRANCH BLOCK LAFB Electronically Signed On 10-06-2020 13:42:23 EDT by Mark Marrero [facility] Work Phone: [phone] [facility] Work Phone: [phone] NT pro BNPon 10-06-2020 Natriuretic peptide B (Bld) [Mass/Vol] 79 pg/mL Normal 0-450 [facility] Comment on above: Order Comment: SLIGH T HEMOLYSIS Performed By: #### C MP3, HEMDF, TROPN #### [facility] [address] [place] [address] No Panel InformationOrdered By: Tono Strong on 10-06-2020 Test Performed by [facility], [address] [place], [place] [address] SLIGHT HEMOLYSIS [facility] Work Phone: [phone] [facility] Work Phone: [phone] Respiratory Panel, Molecular , with COVID-19 (Restricted: peds pts or suitable admitted adults)Ordered By: Garima Rivero on 10-06-2020 Respiratory Panel Molecular, with COVID NEGATIVE: No targets were detected by the [employer]come Upper Respiratory Pathogens PCR Panel. _ Expected [...] management decisions. This assay was developed by [employer] and distributed under an Emergency Use Authorization (EUA) granted by the FDA for the qualitative detection of SARS-CoV-2 nucleic acid. Provider and patient fact sheets can be found at https://www.fda.gov/med ia/722011/download and https://www.fda.gov/med ia/568296/download. [employer] Work Phone: Test Performed by [address] [address] [employer] Work Phone: [employer] Work Phone: TroponinOrdered By: Tono oliver on 10-06-2020 Troponin I.cardiac [Mass/Vol] ng/mL 0.000 - 0.034 ng/mL [employer] Work Phone: Comment on above: . Troponin Ion 10-06-2020 Troponin I.cardiac [Mass/Vol] ng/mL Normal 0.000-0.034 [facility] [facility] Comment on above: Order Comment: SLIGH T HEMOLYSIS Result Comment: . Performed By: #### C MP3, HEMDF, TROPN #### [employer] [address] [place] [address] XR ABDOMEN (KUB) (SINGLE AP VIEW)Ordered By: Roopa Alegria on 10-06-2020 Patient Name: DOROTEO GONG Diagnostic Radiology ACCESSION EXAM DATE/TIME PROCEDURE ORDERING PROVIDER [id number] 10/06/2020 05:04 EDT CR Abdomen AP 5816 -ROOPA ALEGRIA CPT code 65689 Reason For Exam (CR Abdomen AP) constipation Report Indication: Constipation. Findings and impression: Frontal abdomen. There is increased gas within bowel, nonspecific. No free air. Lung bases clear. The findings may reflect constipation in the appropriate setting. Consider follow-up. Report Dictated on Workstation: [id number] --- Final --- Dictating Physician: MD MAURO JOHN Signed Date and Time: 10/06/2020 5:46 am Signed by: MD MAURO JOHN Transcribed Date and Time: 10/06/2020 5:47 [facility] Work Phone: [place], [facility] Incoming Radiology Results From [facility] - 10/06/2020 5:47 AM EDT Patient Name: DOROTEO GONG Diagnostic Radiology ACCESSION EXAM DATE/TIME PROCEDURE ORDERING PROVIDER [id number] 10/06/2020 05:04 EDT CR Abdomen AP ROOPA BACON CPT code 64231 Reason For Exam (CR Abdomen AP) constipation [...] JOHN Transcribed Date and Time: 10/06/2020 5:47 [facility] Work Phone: [facility] Work Phone: COVID-19, RapidOrdered By: Donald Rivero on 10-05-2020 SARS-CoV-2 (COVID-19) RNA JANIE+probe Ql (Unsp spec) see below [facility] Work Phone: Comment on above: Not Detected Expected Result: Not Detected _ Isothermal nucleic acid amplification performed on the [employer] 100e Now System by the [facility] Laboratory Negative results do not preclude SARS-CoV-2 infection and should not be used as the sole basis for treatment or other patient management decisions. This assay was developed by [employer] and distributed under an Emergency Use Authorization (EUA) granted by the FDA for the qualitative detection of SARS-CoV-2 nucleic acid. Provider and patient fact sheets can be found at https://www.fda.gov/media/943012/download and https://www.[employer].gov/media/523587/download. Test Performed by [facility], [address] [place], [place] [address] ORDER WAS CANCELLED 10/05/20 19:51, lab will order. [facility] Work Phone: [phone] [facility] Work Phone: CR Chest Portableon 10-06-19 21 CR Chest Portable Patient [facility]: [id number] Diagnostic Radiology ACCESSION EXAM DATE/TIME PROCEDURE ORDERING PROVIDER [id number] 10/05/2020 17:46 EDT CR Chest Portable [id number] GARIMA LEÓN CPT code 27114 Reason For Exam (CR Chest Portable) Shortness [...] Transcribed Date and Time: 10/05/2020 6:06 Normal [facility] Comp Metabolic Panelon 10-05 ALP [Catalytic activity/Vol] 45 U/L Normal 38-126 [facility] Comment on above: Performed By: #### C MP3, HEMDF, TROPN #### [facility] [address] [place] [address] ALT [Catalytic activity/Vol] 22 U/L Normal 0-49 [facility] Comment on above: Result Comment: The ALT test is performed by an updated assay method. Please note that the reference intervals have been changed and are now sex specific. Performed By: #### C MP3, HEMDF, TROPN #### [facility] [address] [place] [address] Calcium [Mass/Vol] 9.8 mg/dL Normal 8.4-10.4 [facility] Comment on above: Performed By: #### C MP3, HEMDF, TROPN #### [facility] [address] [place] [address] Glucose [Mass/Vol] 82 mg/dL Normal 70-100 [facility] Comment on above: Performed By: #### C MP3, HEMDF, TROPN #### [facility] [address] [place] [address] Urea nitrogen [Mass/Vol] 9 mg/dL Normal 7-20 [facility] Comment on above: Performed By: #### C MP3, HEMDF, TROPN #### [facility] [address] [place] [address] Anion gap [Moles/Vol] 8 mmol/L Normal 3-13 [facility] Comment on above: Performed By: #### C MP3, HEMDF, TROPN #### [facility] [address] [place] [address] AST [Catalytic activity/Vol] 36 U/L Normal 15-46 [facility] Comment on above: Performed By: #### C MP3, HEMDF, TROPN #### [facility] [address] [place] [address] Bilirubin [Mass/Vol] 1.1 mg/dL Normal 0.2-1.3 [facility] Comment on above: Performed By: #### C MP3, HEMDF, TROPN #### [facility] [address] [place] [address] CO2 [Moles/Vol] 22 mmol/L Normal 22-30 [facility] Comment on above: Performed By: #### C MP3, HEMDF, TROPN #### [facility] [address] [place] [address] Creatinine [Mass/Vol] 0.81 mg/dL Normal 0.52-1.25 [facility] Comment on above: Performed By: #### C MP3, HEMDF, TROPN #### [facility] [address] [place] [address] GFR/1.73 sq M.predicted among blacks MDRD (S/P/Bld) [Vol rate/Area] mL/min/{1.73_m2} Normal >60 [facility] Comment on above: Performed By: #### C MP3, HEMDF, TROPN #### [facility] [address] [place] [address] GFR/1.73 sq M.predicted among non-blacks MDRD (S/P/Bld) [Vol rate/Area] 83.4 mL/min/{1.73_m2} Normal >60 [facility] Comment on above: Result Comment: KDIG O [...] By: #### C MP3, HEMDF, TROPN #### [facility] [address] [place] [address] Protein [Mass/Vol] 7.2 g/dL Normal 6.3-8.2 [facility] Comment on above: Performed By: #### C MP3, HEMDF, TROPN #### [facility] [address] [place] [address] Chloride [Moles/Vol] 100 mmol/L Normal 98-107 [facility] Comment on above: Performed By: #### C MP3, HEMDF, TROPN #### [facility] [address] [place] [address] Potassium [Moles/Vol] 4.2 mmol/L Normal 3.5-5.1 [facility] Comment on above: Performed By: #### C MP3, HEMDF, TROPN #### [facility] [address] [place] [address] Sodium [Moles/Vol] 130 mmol/L Low 135-145 [facility] Comment on above: Performed By: #### C MP3, HEMDF, TROPN #### [facility] [address] [place] [address] Albumin [Mass/Vol] 4.5 g/dL Normal 3.5-5.0 [facility] Comment on above: Performed By: #### C MP3, HEMDF, TROPN #### [facility] [address] [place] [address] Comprehensive Metabolic Pane lOrdered By: Garima Rivero on 10-05-2020 Albumin [Mass/Vol] 4.5 g/dL 3.5 - 5.0 g/dL [facility] Work Phone: [phone] ALP (Bld) [Catalytic activity/Vol] 45 U/L 38 - 126 U/L [facility] Work Phone: [phone] ALT [Catalytic activity/Vol] 22 U/L 0 - 49 U/L [facility] Work Phone: [phone] Comment on above: The ALT test is perf ormed by an updated assay method. Please note that the reference intervals have been changed and are now sex specific. Anion gap [Moles/Vol] 8 mmol/L 3 - 13 mmol/L [facility] Work Phone: [phone] AST [Catalytic activity/Vol] 36 U/L 15 - 46 U/L [facility] Work Phone: [phone] Bilirubin [Mass/Vol] 1.1 mg/dL 0.2 - 1 .3 mg/dL [facility] Work Phone: [phone] Calcium [Mass/Vol] 9.8 mg/dL 8.4 - 10. 4 mg/dL [facility] Work Phone: [phone] Chloride [Moles/Vol] 100 mmol/L 98 - 10 7 mmol/L [facility] Work Phone: [phone] CO2 [Moles/Vol] 22 mmol/L 22 - 30 mmol/L [facility] Work Phone: [phone] Creatinine [Mass/Vol] 0.81 mg/dL 0.52 - 1.25 mg/dL [facility] Work Phone: [phone] EGFR IF NonAfrican [place] 83.4 mL/min >60 [facility] Work Phone: [phone] Comment on above: KDIGO guidelines pro vide [...] fraction] 7.2 g/dL 6.3 - 8.2 g/dL [facility] Work Phone: [phone] GFR/1.73 sq M.predicted among blacks MDRD (S/P/Bld) [Vol rate/Area] mL/min/{1.73_m2} >60 mL/min [facility] [facility] Work Phone: [phone] Glucose [Mass/Vol] 82 mg/dL 70 - 100 mg/dL [facility] Work Phone: [phone] Interpretation and review of laboratory results Abnormal [facility] Work Phone: [phone] Potassium [Moles/Vol] 4.2 mmol/L 3.5 - 5.1 mmol/L [facility] Work Phone: [phone] Sodium [Moles/Vol] 130 mmol/L Low 135 - 145 mmol/L [facility] Work Phone: Urea nitrogen (BldV) [Mass/Vol] 9 mg/dL 7 - 20 mg/dL [facility] Work Phone: [phone] Test Performed by [facility], [address], [place], [place] [address] [facility] Work Phone: [facility] Work Phone: ED Provider Noteon 1 ED Provider Note Emergency DepartmentEncounter [facility] ED Patient: Doroteo Gong : 1940 Date of Evaluation: 10/05/2020 ED KEREN Provider: ABEBA Michel EDcare was supervised by Dr. Kathy Daly MD who independently examined and evaluated the patient. Please see their attestation note for further details. Chief Complaint Chief Complaint Patient presents with ? Shortness of Breath [place] I was wearing a N95 mask, gloves, surgical mask for the entirety of this encounter. Does this patient come from an ECF, SNF, Rehab, Longterm or other Congregate setting: no (If yes [...] otherwise acutely negative except as in the [place]. Past History Past Medical History: Diagnosis Date [...] Gatherings with Friends and Family: ? Attends Protestant Services: ? Active Member of Clubs or [...] by alejandro (more content not included)... Normal [facility] ED Provider Note Emergency Department Encounter [facility] ED Patient: Doroteo Gong : 1940 Date [...] words are mis-transcribed.) Kathy Daly MD [facility] Kathy Daly MD 10/05/20 2351 Normal [facility] Hemogram (CBC) w/Auto DiffOr dered By: Garima Rivero on 10-05-2020 Absolute Baso # 0.1 10*3/uL 0.0 - 0.2 10*3/uL [employer] Work Phone: [phone] Absolute Neut # 3.8 10*3/uL 1.8 - 7.0 10*3/uL [employer] Work Phone: 1 Basophils/100 WBC (Bld) 1.2 % 0.0 - 2.0 % [employer] Work Phone: Eosinophils (Bld) [#/Vol] 0.2 10*3/uL 0.0 - 0.5 10*3/uL [employer] Work Phone: 1 22 Eosinophils/100 WBC (Bld) 3.1 % 1.0 - 6.0 % [employer] Work Phone: 1 22 Granulocytes/100 WBC (Bld) 54.3 % 40.0 - 80.0 % [employer] Work Phone: Hematocrit (Bld) [Volume fraction] 46.7 % 40.0 - 52.0 % [employer] Work Phone: 22 Hemoglobin.gastrointesti nal spec 1 Ql (Stl) 16.3 g/dL 13.0 - 18.0 g/dL [employer] Work Phone: 22 Interpretation and review of laboratory results Abnormal [facility] Work Phone: 22 Lymphocytes (Bld) [#/Vol] 2.0 10*3/uL 1.0 - 4.3 10*3/uL [employer] Work Phone: 1 22 Lymphocytes/100 WBC (Bld) 28.1 % 20.0 - 40.0 % [employer] Work Phone: 1( MCH (RBC) [Entitic mass] 30.9 pg 26. 0 - 34.0 pg [employer] Work Phone: MCHC (RBC) [Mass/Vol] 34.9 % 32.0 - 36.0 % [employer] Work Phone: MCV (RBC) [Entitic vol] 88.4 fL 80.0 - 98.0 fL [employer] Work Phone: Monocytes (Bld) [#/Vol] 0.9 10*3/uL High 0.0 - 0.8 10*3/uL [employer] Work Phone: Monocytes/100 WBC (Bld) 13.3 % High 2.0 - 10.0 % [employer] Work Phone: Platelet distribution width (Bld) [Ratio] 14.2 % 11.5 - 14.5 % [employer] Work Phone: Platelet mean volume (Bld) [Entitic vol] 7.5 fL 7.4 - 10.4 fL [employer] Work Phone: Platelets (Bld) [#/Vol] 416 10*3/uL 140 - 440 10*3/uL [employer] Work Phone: RBC (Bld) [#/Vol] 5.28 10*6/uL 4.40 - 5.9 0 10*6/uL [employer] Work Phone: WBC (Bld) [#/Vol] 7.1 10*3/uL 3.6 - 10.7 10*3/uL [employer] Work Phone: Test Performed by [facility] [employer], [address], [place], [place] [address] [employer] Work Phone: [employer] Work Phone: Hemogram w/ Autodiffon 10-05 Abs Baso Cnt 0.1 10*3/uL Normal 0.0-0.2 [facility] Comment on above: Performed By: #### C MP3, HEMDF, TROPN #### [facility] [address] [place] [address] Abs Neutrophile Cnt 3.8 10*3/uL Normal 1.8-7.0 [facility] Comment on above: Performed By: #### C MP3, HEMDF, TROPN #### [facility] [address] [place] [address] Basophils/100 WBC (Bld) 1.2 % Normal 0.0-2.0 [facility] Comment on above: Performed By: #### C MP3, HEMDF, TROPN #### [facility] [address] [place] [address] Eosinophils (Bld) [#/Vol] 0.2 10*3/uL Normal 0.0-0.5 [facility] Comment on above: Performed By: #### C MP3, HEMDF, TROPN #### [facility] [address] [place] [address] Eosinophils/100 WBC (Bld) 3.1 % Normal 1.0-6.0 [facility] Comment on above: Performed By: #### C MP3, HEMDF, TROPN #### [facility] [address] [place] [address] Erythrocyte distribution width (RBC) [Ratio] 14.2 % Normal 11.5-14.5 [facility] Comment on above: Performed By: #### C MP3, HEMDF, TROPN #### [facility] [address] [place] [address] Granulocytes/100 WBC (Bld) 54.3 % Normal 40.0-80.0 [facility] Comment on above: Performed By: #### C MP3, HEMDF, TROPN #### [facility] [address] [place] [address] Hematocrit (Bld) [Volume fraction] 46.7 % Normal 40.0-52.0 [facility] Comment on above: Performed By: #### C MP3, HEMDF, TROPN #### [facility] [address] [place] [address] Hemoglobin (Bld) [Mass/Vol] 16.3 g/dL Normal 13.0-18.0 [facility] Comment on above: Performed By: #### C MP3, HEMDF, TROPN #### [facility] [address] [place] [address] Lymphocytes (Bld) [#/Vol] 2.0 10*3/uL Normal 1.0-4.3 [facility] Comment on above: Performed By: #### C MP3, HEMDF, TROPN #### [facility] [address] [place] [address] Lymphocytes/100 WBC (Bld) 28.1 % Normal 20.0-40.0 [facility] Comment on above: Performed By: #### C MP3, HEMDF, TROPN #### [facility] [address] [place] [address] MCH (RBC) [Entitic mass] 30.9 pg Normal 26.0-34.0 [facility] Comment on above: Performed By: #### C MP3, HEMDF, TROPN #### [facility] [address] [place] [address] MCHC 34.9 % Normal 32.0-36.0 [facility] Comment on above: Performed By: #### C MP3, HEMDF, TROPN #### [facility] [address] [place] [address] MCV (RBC) [Entitic vol] 88.4 fL Normal 80.0-98.0 [facility] Comment on above: Performed By: #### C MP3, HEMDF, TROPN #### [facility] [address] [place] [address] Monocytes (Bld) [#/Vol] 0.9 10*3/uL High 0.0-0.8 [facility] Comment on above: Performed By: #### C MP3, HEMDF, TROPN #### [facility] [address] [place] [address] Monocytes/100 WBC (Bld) 13.3 % High 2.0-10.0 [facility] Comment on above: Performed By: #### C MP3, HEMDF, TROPN #### [facility] [address] [place] [address] Platelet mean volume (Bld) [Entitic vol] 7.5 fL Normal 7.4-10.4 [facility] Comment on above: Performed By: #### C MP3, HEMDF, TROPN #### [facility] [address] [place] [address] Platelets (Bld) [#/Vol] 416 10*3/uL Normal 140-440 [facility] Comment on above: Performed By: #### C MP3, HEMDF, TROPN #### [facility] [address] [place] [address] RBC (Bld) [#/Vol] 5.28 10*6/uL Normal 4.40-5.90 [facility] Comment on above: Performed By: #### C MP3, HEMDF, TROPN #### [facility] [address] [place] [address] WBC (Bld) [#/Vol] 7.1 10*3/uL Normal 3.6-10.7 [facility] Comment on above: Performed By: #### C MP3, HEMDF, TROPN #### [facility] [address] [place] [address] SARS-CoV-2 (LAB DEPT)on 09-15 SARS-CoV-2 (COVID-19) RNA JANIE+probe Ql (Unsp spec) see below Normal [facility] Comment on above: Order Comment: ORDER WAS CANCELLED 10/05/20 19:51, lab will order. Result Comment: Not Detected Expected Result: Not Detected _ Isothermal nucleic acid amplification performed on the [employer] 100e Now System by the [facility] Laboratory Negative results do not preclude SARS-CoV-2 infection and should not be used as the sole basis for treatment or other patient management decisions. This assay was developed by [employer] and distributed under an Emergency Use Authorization (EUA) granted by the FDA for the qualitative detection of SARS-CoV-2 nucleic acid. Provider and patient fact sheets can be found at https://www.fda.gov/media/127297/download and https://www.fda.gov/media/804770/download. Performed By: #### C VCCL #### [facility] [address] [place] [address] Troponin Ion 10-05-2020 Troponin I.cardiac [Mass/Vol] ng/mL Normal 0.000-0.034 [facility] Comment on above: Result Comment: . Performed By: #### C MP3, HEMDF, TROPN #### [facility] [address] [place] [place] [address] Troponin [id number] By: Jose Rivero on 10-05-2020 Troponin I.cardiac [Mass/Vol] ng/mL 0.000 - 0.034 ng/mL [facility] Work Phone: [phone] Comment on above: . Test Performed by [facility], [address] [place], [place] [address] [facility] Work Phone: [phone] [facility] Work Phone: XR CHEST PORTABLEOrdered By: Garima Rivero on 10-05-2020 [id number]iology ACCESSION EXAM DATE/TIME PROCEDURE ORDERING PROVIDER [id number] 10/05/2020 17:46 EDT CR Chest Portable [id number] GARIMA LEÓN CPT code 93036 Reason For Exam (CR Chest Portable) Shortness [...] Phone: [place], [facility] Incoming Radiology Results From [facility] - 10/05/2020 6:07 PM EDT Patient [facility]: [id number] Radiology ACCESSION EXAM DATE/TIME PROCEDURE ORDERING PROVIDER [id number] 10/05/2020 17:46 EDT CR Chest Portable [id number] CristianJOSE RIVEROEN CPT code 84468 Reason For Exam (CR Chest Portable) Shortness [...] Physician KENDRICK AUGUSTINE BRANDY M Accession Number [id number] CPT4 Codes 52523 () Reason For Exam lumbar stenosis Report [...] WILLIAM Transcribed Date and Time: 10/10/2019 8:52 [facility], [place], [facility] Incoming Radiology Results From [facility] - 10/10/2019 8:52 PM EDT Patient Name: DOROTEO GONG ---CT--- Exam Date/Time 10/10/2019 15:27:[address] Spine Lumbar w/o Contrast Ordering Physician KENDRICK AUGUSTINE BRANDY M Accession Number [id number] CPT4 Codes 95892 () Reason For Exam lumbar stenosis Report [...] WILLIAM Transcribed Date and Time: 10/10/2019 8:52 [place], [place] XR HIP LEFT (2-3 VIEWS)on Patient Name: DOROTEO GONG ---Diagnostic Radiology--- Exam Date/Time 09/24/2019 13:25:00 EDT Exam CR Hip w/ Pelvis 2 or 3 Views Left n Ordering Physician MD TRENT, ROOPA EISENBERG Accession Number [id number] CPT4 Codes 56117 () Reason For Exam djd left hip [...] Spondylosis. Postsurgical changes. Report Dictated on Workstation: [facility] --- Final --- Dictating Physician: MD JOHNSON AHMAD Signed Date and Time: 09/24/2019 3:55 pm Signed by: MD JOHNSON AHMAD Transcribed Date and Time: 09/24/2019 3:56 [place], [place] Incoming Radiology Results From [facility] - 09/24/2019 3:56 PM EDT Patient Name: DOROTEO GONG ---Diagnostic Radiology--- Exam Date/Time 09/24/2019 13:25:00 EDT Exam CR Hip w/ Pelvis 2 or 3 Views Left n Ordering Physician MD TRENT, ROOPA EISENBERG Accession Number [id number] CPT4 Codes 06206 () Reason For Exam djd left hip [...] AHMAD Transcribed Date and Time: 09/24/2019 3:56 [place] XR Spine Thoracic 3 VWon Patient Name: DOROTEO GONG ---Diagnostic Radiology--- Exam Date/Time 06/27/2019 14:54:06 EDT Exam CR Spine Thoracic 3 Views Ordering Physician MD MADERA DAVID LANCE Accession Number [id number] CPT4 Codes 35855 () Reason For Exam thoracic spine pain [...] R Transcribed Date and Time: 06/27/2019 7:41 [facility] [place] Incoming Radiology Results From [facility] - 06/27/2019 7:41 PM EDT Patient Name: DOROTEO GONG ---Diagnostic Radiology--- Exam Date/Time 06/27/2019 14:54:06 EDT Exam CR Spine Thoracic 3 Views Ordering Physician MD MADERA DAVID LANCE Accession Number [id number] CPT4 Codes 19501 () Reason For Exam thoracic spine pain [...] R Transcribed Date and Time: 06/27/2019 7:41 [place], [place] Basic Metabolic Panel w/ Ref castro to MGon 06-22-2019 Anion gap [Moles/Vol] 13 mmol/L [place] Calcium [Mass/Vol] 9.6 mg/dL 8.4 - 10. 4 mg/dL [place] Chloride [Moles/Vol] 99 mmol/L 98 - 10 7 mmol/L [place] CO2 [Moles/Vol] 23 mmol/L 22 - 30 mmol/L [place] Creatinine [Mass/Vol] 0.81 mg/dL 0.52 - 1.25 mg/dL [place] EGFR IF NonAfrican [place] >60.0 >60 mL/min [place] Comment on above: Source- MDRD equatio n with creatinine calibration to IDMS(NKDEP) eGFR not recommended for drug dose adjustment GFR/1.73 sq M predicted among blacks MDRD (S/P/Bld) [Vol rate/Area] mL/min/{1.73_m2} >60 mL/min [place] Glucose [Mass/Vol] 151 mg/dL High 70 - 100 mg/dL [place] Interpretation and review of laboratory results Abnormal [place] Potassium [Moles/Vol] 4.2 mmol/L 3.5 - 5.1 mmol/L [place] Sodium [Moles/Vol] 135 mmol/L 135 - 145 mmol/L [place] Urea nitrogen [Mass/Vol] 17 mg/dL 7 - 20 mg/dL [place] Test Performed by [facility], [address] [place], [place] [address] [place], [place] CBCon 06-22-2019 Erythrocyte distribution width (RBC) [Ratio] 14.5 % 11.5 - 14.5 % [place] Hematocrit (Bld) [Volume fraction] 44.7 % 40 - 52 % [place] Hemoglobin (Bld) [Mass/Vol] 14.9 g/dL 13 - 18 g/dL [place] Interpretation and review of laboratory results Abnormal [place] MCH (RBC) [Entitic mass] 28.5 pg 26 - 34 pg [place] MCHC (RBC) [Mass/Vol] 33.3 % 32 - 36 % [place] MCV (RBC) [Entitic vol] 85.6 fL 80 - 98 fL [place], [place] Platelet mean volume (Bld) [Entitic vol] 8.1 fL 7.4 - 10.4 fL [place] Platelets (Bld) [#/Vol] 418 10*3/uL 140 - 440 10*3/uL [place] RBC (Bld) [#/Vol] 5.21 10*6/uL 4.4 - 5.9 10*6/uL [place] WBC (Bld) [#/Vol] 20.2 10*3/uL High 3.6 - 10.7 10*3/uL [place] Test Performed by [facility], [address] [place], [place] [id number] [place] [address] Basic Metabolic Panel w/ Ref castro to MGon 06-21-2019 Anion gap [Moles/Vol] 13 mmol/L [place] Calcium [Mass/Vol] 9.9 mg/dL 8.4 - 10. 4 mg/dL [place] Chloride [Moles/Vol] 95 mmol/L Low 98 - 10 7 mmol/L [place] CO2 [Moles/Vol] 26 mmol/L 22 - 30 mmol/L [place] Creatinine [Mass/Vol] 0.69 mg/dL 0.52 - 1.25 mg/dL [place] EGFR IF NonAfrican [place] >60.0 >60 mL/min [place] Comment on above: Source- MDRD equatio n with creatinine calibration to IDMS(NKDEP) eGFR not recommended for drug dose adjustment GFR/1.73 sq M predicted among blacks MDRD (S/P/Bld) [Vol rate/Area] mL/min/{1.73_m2} >60 mL/min [place] Glucose [Mass/Vol] 167 mg/dL High 70 - 100 mg/dL [place] Interpretation and review of laboratory results Abnormal [place] Potassium [Moles/Vol] 5.1 mmol/L 3.5 - 5.1 mmol/L [place] Sodium [Moles/Vol] 134 mmol/L Low 135 - 145 mmol/L [place] Urea nitrogen [Mass/Vol] 9 mg/dL 7 - 20 mg/dL [place] Test Performed by [facility], [address] [place], [place], [place] [address] [place] [address] [facility] 06-21-2019 Erythrocyte distribution width (RBC) [Ratio] 14.5 % 11.5 - 14.5 % [place] Hematocrit (Bld) [Volume fraction] 47.0 % 40 - 52 % [place] Hemoglobin (Bld) [Mass/Vol] 15.9 g/dL 13 - 18 g/dL [place] MCH (RBC) [Entitic mass] 28.7 pg 26 - 34 pg [place] MCHC (RBC) [Mass/Vol] 33.8 % 32 - 36 % [place] MCV (RBC) [Entitic vol] 85.1 fL 80 - 98 fL [place], [place] Platelet mean volume (Bld) [Entitic vol] 7.7 fL 7.4 - 10.4 fL [place] Platelets (Bld) [#/Vol] 409 10*3/uL 140 - 440 10*3/uL [place] RBC (Bld) [#/Vol] 5.52 10*6/uL 4.4 - 5.9 10*6/uL [place] WBC (Bld) [#/Vol] 10.5 10*3/uL 3.6 - 10.7 10*3/uL [place] Test Performed by [facility], [address] [place], [place], [place] [address] [place], [place] Basic Metabolic Panelon Anion gap [Moles/Vol] 13 mmol/L [place] Calcium [Mass/Vol] 9.0 mg/dL 8.4 - 10. 4 mg/dL [place] Chloride [Moles/Vol] 99 mmol/L 98 - 10 7 mmol/L [place] CO2 [Moles/Vol] 23 mmol/L 22 - 30 mmol/L [place] Creatinine [Mass/Vol] 0.67 mg/dL 0.52 - 1.25 mg/dL [place] EGFR IF NonAfrican [place] >60.0 >60 mL/min [place] Comment on above: Source- MDRD equatio n with creatinine calibration to IDMS(NKDEP) eGFR not recommended for drug dose adjustment GFR/1.73 sq M predicted among blacks MDRD (S/P/Bld) [Vol rate/Area] mL/min/{1.73_m2} >60 mL/min [place] Glucose [Mass/Vol] 107 mg/dL High 70 - 100 mg/dL [place] Interpretation and review of laboratory results Abnormal [place] Potassium [Moles/Vol] 4.1 mmol/L 3.5 - 5.1 mmol/L [place] Sodium [Moles/Vol] 134 mmol/L Low 135 - 145 mmol/L [place] Urea nitrogen [Mass/Vol] 7 mg/dL 7 - 20 mg/dL [place] Test Performed by [facility], [address] [place] [address] [place] CBC Auto Differentialon 03-0 Absolute Baso # 0.0 10*3/uL 0 - 0.2 10*3/uL [place] Absolute Neut # 1.9 10*3/uL 1.8 - 7 10*3/uL [place] Basophils/100 WBC (Bld) 0.6 % 0 - 2 % [place] Eosinophils (Bld) [#/Vol] 0.3 10*3/uL 0 - 0.5 10*3/uL [place] Eosinophils/100 WBC (Bld) 5.2 % 1 - 6 % [place] Erythrocyte distribution width (RBC) [Ratio] 14.6 % High 11.5 - 14.5 % [place] Granulocytes/100 WBC (Bld) 35.4 % Low 40 - 80 % [place] Hematocrit (Bld) [Volume fraction] 46.0 % 40 - 52 % [place] Hemoglobin (Bld) [Mass/Vol] 15.5 g/dL 13 - 18 g/dL [place] Interpretation and review of laboratory results Abnormal [place] Lymphocytes (Bld) [#/Vol] 2.5 10*3/uL 1 - 4.3 10*3/uL [place] Lymphocytes/100 WBC (Bld) 47.1 % High 20 - 40 % [place] MCH (RBC) [Entitic mass] 28.7 pg 26 - 34 pg [place] MCHC (RBC) [Mass/Vol] 33.6 % 32 - 36 % [place] MCV (RBC) [Entitic vol] 85.5 fL 80 - 98 fL [place], [place] Monocytes (Bld) [#/Vol] 0.6 10*3/uL 0 - 0.8 10*3/uL [place] Monocytes/100 WBC (Bld) 11.7 % High 2 - 10 % [place] Platelet mean volume (Bld) [Entitic vol] 8.0 fL 7.4 - 10.4 fL [place] Platelets (Bld) [#/Vol] 345 10*3/uL 140 - 440 10*3/uL [place] RBC (Bld) [#/Vol] 5.39 10*6/uL 4.4 - 5.9 10*6/uL [place] WBC (Bld) [#/Vol] 5.3 10*3/uL 3.6 - 10.7 10*3/uL [place] EKG 12 Leadon 06-20-2019 [facility], [facility] Incoming Cardiology Results From [facility] - 06/20/2019 2:12 PM [facility] Test Date: 2019-06-20 Pat Name: Doroteo Gong Department: Room: 257 Gender: M 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 Advocate: HC : 1940 Requested By: MICHAEL GILES Order Number: [id number] Reading : Jaya Montoya Measurements Intervals [place] Rate: 87 P: 47 WY: 236 QRS: -78 QRSD: 144 T: 34 QT: 404 QTc: 486 Interpretive Statements SINUS 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 Electronically Signed On 06-20-2019 14:11:49 EST by [facility] Test Date: 2019-06-20 Pat Name: Doroteo Gong Department: 01 Room: 257 Gender: M 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, [place], [place] [address] [place] RBC MORPHOLOGYon 06-20-2019 Anisocytosis Ql (Bld) Slight [place] RBC morphology finding Nom (Bld) ABNORMAL [place] Rapid influenza A/B antigens on 06-20-2019 INFLUENZA A Detected Abnormal Not Detected NA [place] INFLUENZA B Not Detected Not Detected NA [place] Comment on above: Method: Isothermal n ucleic acid amplification technology. Interpretation and review of laboratory results Abnormal [place] Test Performed by [facility], [address], [place] [address] [place] Respiratory Virus PCR Panelo n 06-20-2019 Respiratory Panel PCR NEGATIVE: No targe ts were detected by the [employer] Upper Respiratory Pathogens PCR Panel. PLEASE NOTE: [...] pertussis, Bordetella parapertussis, Chlamydia pneumoniae, Mycoplasma pneumoniae [place] Test Performed by [facility], [address] [place] [id number] Specimen Source Comment:Nasopharyngeal [place] Interpretation and review of laboratory results Abnormal [place] Respiratory Panel PCR POSITIVE: Influenz a A DETECTED. PLEASE NOTE: This assay DOES NOT detect SARS-CoV-2/COVID-19. _ The [employer] Upper Respiratory Pathogens PCR Panel can detect the following targets: Adenovirus, Coronavirus 229E, Coronavirus HKU1, Coronavirus NL63, Coronavirus OC43, Human Metapneumovirus, Human Rhinovirus/Enterovirus, Influenza A, Influenza B, Parainfluenza Virus 1, Parainfluenza Virus 2, Parainfluenza Virus 3, Parainfluenza Virus 4, Respiratory Syncytial Virus, Bordetella pertussis, Bordetella parapertussis, Chlamydia pneumoniae, Mycoplasma pneumoniae Abnormal [place] Test Performed by [facility], [address] [place] [id number] Specimen Source Comment:Nasopharyngeal [place] Troponinon 06-20-2019 Troponin I.cardiac [Mass/Vol] ng/mL 0 - 0.034 ng/mL [place] Comment on above: . Test Performed by [facility], [address], [place] [id number] [place] [address] XR CHEST PORTABLEon 06-20-19 20 [place] Incoming Radiology Results From [facility] - 06/20/2019 6:25 AM EST Patient Name: DOROTEO GONG ---Diagnostic Radiology--- Exam Date/Time 06/20/2019 05:47:11 EST Exam CR Chest Portable Ordering Physician MICHAEL PABON Accession Number [id number] CPT4 Codes 57187 () Reason For Exam SOB, h/o asthma, [...] KEVIN Transcribed Date and Time: 06/20/2019 6:25 [place] Patient Name: DOROTEO GONG ---Diagnostic Radiology--- Exam Date/Time 06/20/2019 05:47:11 EST Exam CR Chest Portable Ordering Physician MICHAEL PABON Accession Number [id number] CPT4 Codes 14639 () Reason For Exam SOB, h/o asthma, [...] KEVIN Transcribed Date and Time: 06/20/2019 6:25 [place] XR ABDOMEN (KUB) (SINGLE AP VIEW)on 06-09-2019 Patient Name: DOROTEO GONG ---Diagnostic Radiology--- Exam Date/Time 06/09/2019 14:49:24 EST Exam CR Abdomen AP Ordering Physician MD ORDONEZ JOSHUA B Accession Number [id number] CPT4 Codes 95296 () Reason For Exam Calculus of kidney [...] R Transcribed Date and Time: 06/09/2019 8:14 [facility] [place] Incoming Radiology Results From [facility] - 06/09/2019 8:14 PM EST Patient Name: DOROTEO GONG ---Diagnostic Radiology--- Exam Date/Time 06/09/2019 14:49:24 EST Exam CR Abdomen AP Ordering Physician MD ORDONEZ JOSHUA B Accession Number [id number] CPT4 Codes 53197 () Reason For Exam Calculus of kidney [...] R Transcribed Date and Time: 06/09/2019 8:14 [facility], [place] CBC Auto Differentialon 05-17 Absolute Baso # [...] [Ratio] 14.3 % 11.5 - 14.5 % [employer] Work Phone: [phone] Granulocytes/100 WBC (Bld) 64.6 % 40 - 80 % [facility] Work Phone: Hematocrit (Bld) [Volume fraction] 46.0 % 40 - 52 % [facility] Work Phone: [phone] Hemoglobin (Bld) [Mass/Vol] 15.8 g/dL 13 - 18 g/dL [facility] Work Phone: [phone] Interpretation and review of laboratory results Abnormal [employer] Work Phone: [phone] Lymphocytes (Bld) [#/Vol] 1.4 10*3/uL 1 - 4.3 10*3/uL [facility] Work Phone: [phone] Lymphocytes/100 WBC (Bld) 17.1 % Low 20 - 40 % [facility] Work Phone: [phone] MCH (RBC) [Entitic mass] 29.1 pg 26 - 34 pg [facility] Work Phone: [phone] MCHC (RBC) [Mass/Vol] 34.4 % 32 - 36 % [facility] Work Phone: [phone] MCV (RBC) [Entitic vol] 84.8 fL 80 - 98 fL [facility] Work Phone: [phone] Monocytes (Bld) [#/Vol] 1.2 10*3/uL High 0 - 0.8 10*3/uL [facility] Work Phone: [phone] Monocytes/100 WBC (Bld) 14.5 % High 2 - 10 % [facility] Work Phone: [phone] Platelet mean volume (Bld) [Entitic vol] 7.7 fL 7.4 - 10.4 fL [facility] Work Phone: [phone] Platelets (Bld) [#/Vol] 450 10*3/uL High 140 - 440 10*3/uL [facility] Work Phone: [phone] RBC (Bld) [#/Vol] 5.43 10*6/uL 4.4 - 5.9 10*6/uL [facility] Work Phone: [phone] WBC (Bld) [#/Vol] 8.5 10*3/uL 3.6 - 10.7 10*3/uL [facility] Work Phone: [phone] Test Performed by [facility], [address] [place] [id number] [place] [address] Work Phone: [phone] CT Abdomen Pelvis Wo Contras ton 05-26-2019 [facility] Incoming Radiology Results From [facility] - 05/26/2019 9:18 AM EST Patient Name: DOROTEO GONG ---CT--- Exam Date/Time 05/26/2019 09:02:[address] Abdomen/Pelvis (No PO, No IV) Ordering Physician MD ELIDA, KEE Silva Accession Number [id number] CPT4 Codes 40292 (CT Abdomen/Pelvis (No PO, No IV)) Reason [...] Physician MD MARRERO GREGORY M Accession Number [id number] CPT4 Codes 22293 (CT Abdomen/Pelvis (No PO, No IV)) Reason [...] R Transcribed Date and Time: 05/26/2019 9:18 [facility] Work Phone: [phone] Comprehensive Metabolic Pane khris 05-26-2019 Albumin [Mass/Vol] 4.3 g/dL 3.5 - 5 g/dL [facility] Work Phone: [phone] [Catalytic activity/Vol] 55 U/L 38 - 126 U/L [facility] Work Phone: [phone] [Catalytic activity/Vol] 34 U/L 13 - 69 U/L [facility] Work Phone: [phone] Anion gap [Moles/Vol] 13 mmol/L [facility] Work Phone: [phone] AST [Catalytic activity/Vol] 32 U/L 15 - 46 U/L [facility] Work Phone: [phone] Bilirubin Ql (U) 0.9 mg/dL 0.2 - 1.3 mg/dL [facility] Work Phone: [phone] Calcium [Mass/Vol] 9.7 mg/dL 8.4 - 10. 4 mg/dL [facility] Work Phone: [phone] Chloride [Moles/Vol] 92 mmol/L Low 98 - 10 7 mmol/L [facility] Work Phone: [phone] [Moles/Vol] 22 mmol/L 22 - 30 mmol/L [facility] Work Phone: [phone] Creatinine [Mass/Vol] 0.75 mg/dL 0.52 - 1.25 mg/dL [facility] Work Phone: EGFR IF NonAfrican [place] >60.0 >60 mL/min [facility] Work Phone: [phone] [...] [facility] Work Phone: [phone] Test Performed by [facility] [place] [facility], [address] [place], [place] [address] [employer] Work Phone: [phone] Lipaseon 05-26-2019 Lipase [Catalytic activity/Vol] 73 U/L 23 - 300 U/L [facility] Work Phone: [phone] Performed by [facility] [place] [facility], [address] [place], [place] [address] [employer] Work Phone: [phone] Influenza A/B Antigens on 05-26-2019 INFLUENZA A Not Detected Not Detected NA [employer] Work Phone: [phone] INFLUENZA B Not Detected Not Detected NA [facility] Work Phone: [phone] Comment on above: Method: Isothermal n ucleic acid amplification technology. Test Performed by [facility] [place] [facility], [address] [place], [place] [address] [employer] Work Phone: [phone] Urinalysison 05-26-2019 Appearance (U) Clear Clear NA [employer] Work Phone: [phone] Bilirubin Urine Negative Negative mg/dL [facility] Work Phone: [phone] Color (U) Light-Yellow Lt. Yellow NA [employer] Work Phone: [phone] Glucose, Ur Normal Normal (<70) mg/dL [facility] Work Phone: [phone] Ketones Ql (U) Negative Negative mg/dL [facility] Work Phone: [phone] LEUKOCYTES, UA Negative Negative Pennie/uL [facility] Work Phone: [phone] Nitrite, Urine Negative Negative NA [employer] Work Phone: [phone] Occult Blood,Urine Negative Negative mg/dL [facility] Work Phone: [phone] pH (U) 7.0 [pH] [facility] Work Phone: [phone] Protein (U) [Mass/Vol] Negative Negat stephen mg/dL [facility] Work Phone: [phone] Specific [place], Urine 1.007 S [facility] Work Phone: [phone] Urobilinogen, Urine Normal Normal (0-1) mg/dL [facility] Work Phone: [phone] Test Performed by [facility], [address] [place] [id number] [place], [place] [address] Work Phone: CT SINUS LIMITED WO CONTRAST on 12-26-2018 Patient Name: DOROTEO GONG ---CT--- Exam Date/Time 12/26/2018 13:48:[address] Sinus Study Limited Ordering Physician DO HARRY CASSIE N Accession Number [id number] CPT4 Codes 40022 () Reason For Exam chronic sinusitis Report [...] RISA Transcribed Date and Time: 12/26/2018 1:51 [facility] [place] Incoming Radiology Results From [facility] - 12/26/2018 1:54 PM EDT Patient Name: DOROTEO GONG ---CT--- Exam Date/Time 12/26/2018 13:48:[address] Sinus Study Limited Ordering Physician DO HARRY CASSIE N Accession Number [id number] CPT4 Codes 89020 () Reason For Exam chronic sinusitis Report [...] RISA Transcribed Date and Time: 12/26/2018 1:51 [facility], [place] CT Sinus Study Limitedon CT Sinus Study Limited Patient Name: DOROTEO GRAY CT Exam Date/Time 12/26/2018 13:48:[address] Sinus Study Limited Ordering Physician DO HARRY CASSIE N Accession Number [id number] CPT4 Codes 43238 () Reason For Exam chronic sinusitis Report [...] Transcribed Date and Time: 12/26/2018 1:51 Normal [facility] CR Spine Lumbosacral Complet e w/ Bending min 6 vwson 11-05-2018 CR Spine Lumbosacral Complete w/ Bending min 6 vws Patient Name: DOROTEO GONG Diagnostic Radiology Exam Date/Time 11/04/2018 16:17:06 EDT Exam CR Spine Lumbosacral Complete w/ Bending Ordering Physician MD ARSALAN, ANALY Accession Number [id number] CPT4 Codes 46277 () Reason For Exam intervetebral degeneration Report [...] Dictated: 11/05/2018 9:11 am Dictating Physician: MD ROBERTS LAURA Signed Date and Time: 11/05/2018 9:16 am Signed by: MD ROBERTS LAURA Transcribed Date and Time: 11/05/2018 9:11 Normal [facility] CR Sacroiliac Joints 3+ View son 11-04-2018 CR Sacroiliac Joints 3+ Views Patient Name: DOROTEO GONG Diagnostic Radiology Exam Date/Time 11/04/2018 16:16:56 EDT Exam CR Sacroiliac Joints 3+ Views Ordering Physician MD ARSALAN, ANALY Accession Number [id number] CPT4 Codes 35536 () Reason For Exam intervetebral degeneration Report [...] Transcribed Date and Time: 11/04/2018 4:44 Normal [facility] CR Spine Thoracic 2 Viewson 05-02-2018 CR Spine Thoracic 2 Views Patient Name: DOROTEO GONG Diagnostic Radiology Exam Date/Time 05/02/2018 14:56:21 EST Exam CR Spine Thoracic 2 Views Ordering Physician MD TRENT, ROOPA EISENBERG Accession Number [id number] CPT4 Codes 23434 () Reason For Exam mid thoracic pain [...] Transcribed Date and Time: 05/02/2018 3:06 Normal [facility] Vital Signs Date Time Vital Sign Value Performing Clinician Facility 04-28-2024 13:25-0500 Body height 152.4 cm Kathy Jacome VARNISH INSPECTOR - MEDICAL BILLING ASSOCIATE Work Phone: [facility] [place] 04-28-2024 13:25-0500 Body mass index (BMI) [Ratio] 30.47 kg/m2 Kathy Jacome VARNISH INSPECTOR - MEDICAL BILLING ASSOCIATE Work Phone: [facility] [place] 04-28-2024 13:25-0500 Body weight 70.76 kg Kathy Jacome VARNISH INSPECTOR - MEDICAL BILLING ASSOCIATE Work Phone: [facility] 04-28-2024 13:25-0500 Diastolic blood pressure 44 mm[Hg] Kathy Jacome VARNISH INSPECTOR - MEDICAL BILLING ASSOCIATE Work Phone: [facility] [place] 04-28-2024 13:25-0500 Heart rate 82 /min Kathy Jacome VARNISH INSPECTOR - MEDICAL BILLING ASSOCIATE Work Phone: [facility] [place] 04-28-2024 13:25-0500 Systolic blood pressure 107 mm[Hg] Kathy Jacome VARNISH INSPECTOR - MEDICAL BILLING ASSOCIATE Work Phone: [facility] [place] 04-11-2024 07:56-0500 Body temperature 97.59 [degF] Marybeth Glaesr DO Work Phone: [facility] [place] 04-11-2024 07:56-0500 Diastolic blood pressure 66 mm[Hg] Marybeth Glaser DO Work Phone: [facility] [place] 04-11-2024 07:56-0500 Heart rate 71 /min Marybeth Glaser DO Work Phone: [facility] [place] 04-11-2024 07:56-0500 Respiratory rate 18 /min Marybeth Glaser DO Work Phone: [facility] [place] 04-11-2024 07:56-0500 SaO2% (BldA) [Mass fraction] 94 % Marybeth Glaser DO Work Phone: [facility] [place] 04-11-2024 07:56-0500 Systolic blood pressure 122 mm[Hg] Marybeth Glaser DO Work Phone: [facility] [place] 04-09-2024 12:11-0500 Body height 152.4 cm Marybeth Glaser DO Work Phone: [facility] [place] 05-21-2023 10:25-0500 Body height 152.4 cm Ana Blake APRN Work Phone: [facility] [place] 05-21-2023 10:25-0500 Body temperature 97.81 [degF] Ana Blake APRN Work Phone: [employer] [place] 05-21-2023 10:25-0500 Diastolic blood pressure 63 mm[Hg] Ana Blake APRN Work Phone: [employer] [place] 05-21-2023 10:25-0500 Heart rate 78 /min Ana Blake APRN Work Phone: [employer] [place] 05-21-2023 10:25-0500 SaO2% (BldA) [Mass fraction] 93 % Ana Blake APRN Work Phone: [employer] [place] 05-21-2023 10:25-0500 Systolic blood pressure 106 mm[Hg] Ana Hayden VARNISH INSPECTOR Work Phone: [facility] 03-22-2023 02:13-0500 Body temperature 98.8 [degF] MD Zechariah Post Work Phone: [facility] 03-22-2023 02:13-0500 Diastolic blood pressure 84 mm[Hg] MD Zechariah Post Work Phone: [facility] 03-22-2023 02:13-0500 Heart rate 70 /min MD Zechariah Post Work Phone: [facility] 03-22-2023 02:13-0500 Respiratory rate 18 /min MD Zechariah Post Work Phone: [facility] 03-22-2023 02:13-0500 SaO2% (BldA) [Mass fraction] 97 % MD Zechariah Post Work Phone: [facility] 03-22-2023 02:13-0500 Systolic blood pressure 132 mm[Hg] MD Zechariah Post Work Phone: [facility] 03-21-2023 07:30-0500 Inhaled oxygen flow rate 2 L/min MD Zechariah Post Work Phone: [facility] 03-18-2023 17:52-0500 Body height 152.4 cm MD Zechariah Post Work Phone: [facility] 03-18-2023 17:52-0500 Body mass index (BMI) [Ratio] 31 kg/m2 MD Zechariah Post Work Phone: [facility] 03-18-2023 17:52-0500 Body weight 72.12 kg MD Zechariah Post Work Phone: [facility] 03-05-2023 13:22-0500 Body height 152.4 cm Jaylyn Ortiz VARNISH INSPECTOR - MEDICAL BILLING ASSOCIATE Work Phone: [facility] 03-05-2023 13:22-0500 Body mass index (BMI) [Ratio] 30.58 kg/m2 Jaylyn Ortiz VARNISH INSPECTOR - MEDICAL BILLING ASSOCIATE Work Phone: [facility] 03-05-2023 13:22-0500 Body temperature 96.8 [degF] Jaylyn Ortiz VARNISH INSPECTOR - MEDICAL BILLING ASSOCIATE Work Phone: [facility] [place] 03-05-2023 13:22-0500 Body weight 71.03 kg Jaylyn Salazarat VARNISH INSPECTOR - MEDICAL BILLING ASSOCIATE Work Phone: [facility] [place] 03-05-2023 13:22-0500 Diastolic blood pressure 80 mm[Hg] Jaylyn Salazarat VARNISH INSPECTOR - MEDICAL BILLING ASSOCIATE Work Phone: [facility] [place] 03-05-2023 13:22-0500 Heart rate 76 /min Jaylyn Salazarat VARNISH INSPECTOR - MEDICAL BILLING ASSOCIATE Work Phone: [facility] [place] 03-05-2023 13:22-0500 SaO2% (BldA) [Mass fraction] 94 % Jaylyn Salazarat VARNISH INSPECTOR - MEDICAL BILLING ASSOCIATE Work Phone: [facility] [place] 03-05-2023 13:22-0500 Systolic blood pressure 129 mm[Hg] Jaylyn Ortiz VARNISH INSPECTOR - MEDICAL BILLING ASSOCIATE Work Phone: [facility] [place] 02-27-2023 11:45-0500 Body height 152.4 cm Bipin Pierson DO Work Phone: [facility] [place] 02-27-2023 11:45-0500 Body mass index (BMI) [Ratio] 32.22 kg/m2 Bipin Pierson DO Work Phone: [facility] [place] 02-27-2023 11:45-0500 Body weight 74.84 kg Bipin Pierson DO Work Phone: [facility] [place] 02-19-2023 08:05-0500 Body temperature 97.39 [degF] Ramiro Baird MD Work Phone: [facility] [place] 02-19-2023 08:05-0500 Diastolic blood pressure 70 mm[Hg] Ramiro Baird MD Work Phone: [facility] [place] 02-19-2023 08:05-0500 Heart rate 63 /min Ramiro Baird MD Work Phone: [facility] [place] 02-19-2023 08:05-0500 Respiratory rate 18 /min Ramiro Baird MD Work Phone: [facility] [place] 02-19-2023 08:05-0500 SaO2% (BldA) [Mass fraction] 96 % Ramiro Baird MD Work Phone: [facility] [place] 02-19-2023 08:05-0500 Systolic blood pressure 145 mm[Hg] Ramiro Baird MD Work Phone: [facility] [place] 01-30-2023 11:32-0400 Body height 152.4 cm Kimberley Rorar VARNISH INSPECTOR - MEDICAL BILLING ASSOCIATE Work Phone: [facility] [place] 01-30-2023 11:32-0400 Body mass index (BMI) [Ratio] 32.22 kg/m2 Kimberley Guzmánar VARNISH INSPECTOR - MEDICAL BILLING ASSOCIATE Work Phone: [facility] [place] 01-30-2023 11:32-0400 Body weight 74.84 kg Kimberleymonika Guzmánar VARNISH INSPECTOR - MEDICAL BILLING ASSOCIATE Work Phone: [facility] [place] 01-30-2023 11:32-0400 Diastolic blood pressure 53 mm[Hg] Kimberley Guzmánar VARNISH INSPECTOR - MEDICAL BILLING ASSOCIATE Work Phone: [facility] [place] 01-30-2023 11:32-0400 Heart rate 79 /min Kimberley Guzmánar VARNISH INSPECTOR - MEDICAL BILLING ASSOCIATE Work Phone: [facility] [place] 01-30-2023 11:32-0400 Systolic blood pressure 98 mm[Hg] Kimberley Rorar VARNISH INSPECTOR - MEDICAL BILLING ASSOCIATE Work Phone: [facility] [place] 01-18-2023 08:49-0400 Body height 152.4 cm Jaylyn Falat VARNISH INSPECTOR - MEDICAL BILLING ASSOCIATE Work Phone: [facility] [place] 01-18-2023 08:49-0400 Body temperature 97.7 [degF] Jaylyn Falat VARNISH INSPECTOR - MEDICAL BILLING ASSOCIATE Work Phone: [facility] [place] 01-18-2023 08:49-0400 Diastolic blood pressure 71 mm[Hg] Jaylyn Falat VARNISH INSPECTOR - MEDICAL BILLING ASSOCIATE Work Phone: [facility] [place] 01-18-2023 08:49-0400 Heart rate 71 /min Jaylyn Ortiz VARNISH INSPECTOR - MEDICAL BILLING ASSOCIATE Work Phone: [facility] [place] 01-18-2023 08:49-0400 SaO2% (BldA) [Mass fraction] 93 % Jaylyn Ortiz VARNISH INSPECTOR - MEDICAL BILLING ASSOCIATE Work Phone: [facility] [place] 01-18-2023 08:49-0400 Systolic blood pressure 114 mm[Hg] Jaylyn Ortiz VARNISH INSPECTOR - MEDICAL BILLING ASSOCIATE Work Phone: [facility] [place] 01-04-2023 09:18-0400 Heart rate 78 /min Tara Frazier MD Work Phone: [facility] [place] 01-04-2023 09:18-0400 Respiratory rate 18 /min Tara Frazier MD Work Phone: [facility] [place] 01-04-2023 09:18-0400 SaO2% (BldA) [Mass fraction] 97 % Tara Frazier MD Work Phone: [facility] [place] 01-04-2023 08:47-0400 Body temperature 97.59 [degF] Tara Frazier MD Work Phone: [facility] [place] 01-04-2023 08:47-0400 Diastolic blood pressure 74 mm[Hg] Tara Frazier MD Work Phone: [facility] [place] 01-04-2023 08:47-0400 Systolic blood pressure 131 mm[Hg] Tara Frazier MD Work Phone: [facility] [place] 12-31-2022 03:11-0400 Body height 152.4 cm Tara Frazier MD Work Phone: [facility] [place] 12-31-2022 03:11-0400 Body mass index (BMI) [Ratio] 32.33 kg/m2 Tara Frazier MD Work Phone: [facility] [place] 12-31-2022 03:11-0400 Body weight 75.1 kg Tara Frazier MD Work Phone: [facility] [place] 12-13-2022 10:30-0400 Diastolic blood pressure 56 mm[Hg] Kathy Daly MD Work Phone: [facility] [place] 12-13-2022 10:30-0400 Heart rate 84 /min Kathy Daly MD Work Phone: [facility] [place] 12-13-2022 10:30-0400 Respiratory rate 18 /min Kathy Daly MD Work Phone: [facility] [place] 12-13-2022 10:30-0400 SaO2% (BldA) [Mass fraction] 96 % Kathy Daly MD Work Phone: [facility] [place] 12-13-2022 10:30-0400 Systolic blood pressure 146 mm[Hg] Kathy Daly MD Work Phone: [facility] [place] 12-13-2022 06:43-0400 Body temperature 97.5 [degF] Kathy Daly MD Work Phone: [facility] [place] 12-12-2022 23:26-0400 Body height 152.4 cm Kathy Daly MD Work Phone: [facility] [place] 12-12-2022 23:26-0400 Body mass index (BMI) [Ratio] 32.61 kg/m2 Kathy Daly MD Work Phone: [facility] [place] 12-12-2022 23:26-0400 Body weight 75.75 kg Kathy Daly MD Work Phone: [facility] 10-23-2022 14:38-0400 Body height 157.5 cm Roopa Madera MD Work Phone: [facility] 10-23-2022 14:38-0400 Body temperature 98.4 [degF] Roopa Madera MD Work Phone: [facility] 10-23-2022 14:38-0400 Diastolic blood pressure 70 mm[Hg] Roopa Madera MD Work Phone: [facility] 10-23-2022 14:38-0400 Heart rate 71 /min Roopa Madera MD Work Phone: [facility] 10-23-2022 14:38-0400 SaO2% (BldA) [Mass fraction] 96 % Roopa Madera MD Work Phone: [facility] 10-23-2022 14:38-0400 Systolic blood pressure 130 mm[Hg] Roopa Madera MD Work Phone: [facility] 07-31-2022 15:37-0400 Body height 157.5 cm Roopa Madera MD Work Phone: [facility] 07-31-2022 15:37-0400 Body temperature 97.9 [degF] Roopa Madera MD Work Phone: [facility] 07-31-2022 15:37-0400 Body weight 78.02 kg Roopa Madera MD Work Phone: [facility] 07-31-2022 15:37-0400 Diastolic blood pressure 60 mm[Hg] Roopa Madera MD Work Phone: [facility] 07-31-2022 15:37-0400 Systolic blood pressure 120 mm[Hg] Roopa Madera MD Work Phone: [facility] 06-12-2022 13:37-0500 Body height 157.5 cm Roopa Madera MD Work Phone: [facility] 06-12-2022 13:37-0500 Body temperature 96.8 [degF] Roopa Madera MD Work Phone: [facility] 06-12-2022 13:37-0500 Body weight 72.58 kg Roopa Madera MD Work Phone: [facility] 06-12-2022 13:37-0500 Diastolic blood pressure 68 mm[Hg] Roopa Madera MD Work Phone: [facility] 06-12-2022 13:37-0500 Systolic blood pressure 130 mm[Hg] Roopa Madera MD Work Phone: [facility] 10-10-2021 13:59-0400 Body height 157.5 cm Roopa Madera MD Work Phone: [facility] 10-10-2021 13:59-0400 Body temperature 97.59 [degF] Roopa Madera MD Work Phone: [facility] 10-10-2021 13:59-0400 Body weight 79.83 kg Roopa Madera MD Work Phone: [facility] 10-10-2021 13:59-0400 Diastolic blood pressure 70 mm[Hg] Roopa Madera MD Work Phone: [facility] 10-10-2021 13:59-0400 Systolic blood pressure 114 mm[Hg] Roopa Madera MD Work Phone: [facility] 06-05-2021 20:45-0500 Diastolic blood pressure 65 mm[Hg] Daiana Schreiber MD Work Phone: [facility] 06-05-2021 20:45-0500 Heart rate 94 /min Daiana Schreiber MD Work Phone: [facility] 06-05-2021 20:45-0500 Respiratory rate 18 /min Daiana Schreiber MD Work Phone: [facility] 06-05-2021 20:45-0500 SaO2% (BldA) [Mass fraction] 95 % Daiana Schreiber MD Work Phone: [facility] 06-05-2021 20:45-0500 Systolic blood pressure 126 mm[Hg] Daiana Schreiber MD Work Phone: [facility] 06-05-2021 17:51-0500 Body temperature 98.29 [degF] Daiana Schreiber MD Work Phone: [facility] 02-25-2021 13:42-0500 Diastolic blood pressure 78 mm[Hg] Susanne Thrasher MD Work Phone: [facility] 02-25-2021 13:42-0500 Heart rate 87 /min Susanne Thrasher MD Work Phone: [facility] 02-25-2021 13:42-0500 Respiratory rate 18 /min Susanne Thrasher MD Work Phone: [facility] 02-25-2021 13:42-0500 SaO2% (BldA) [Mass fraction] 98 % Susanne Thrasher MD Work Phone: [facility] 02-25-2021 13:42-0500 Systolic blood pressure 127 mm[Hg] Susanne Thrasher MD Work Phone: [facility] 02-25-2021 11:36-0500 Body temperature 98.1 [degF] Susanne Thrasher MD Work Phone: [facility] 01-31-2021 13:07-0400 Heart rate 86 /min Joann Kline MD Work Phone: [facility] Work Phone: 01-31-2021 13:07-0400 Respiratory rate 20 /min Joann Kline MD Work Phone: [facility] Work Phone: 01-31-2021 13:07-0400 SaO2% (BldA) [Mass fraction] 96 % Joann Kline MD Work Phone: [facility] Work Phone: 10-09-2020 08:20-0400 Body temperature 96.4 [degF] Kathy Daly MD Work Phone: [facility] Work Phone: 10-09-2020 08:20-0400 Diastolic blood pressure 76 mm[Hg] Kathy Daly MD Work Phone: [facility] Work Phone: 10-09-2020 08:20-0400 Heart rate 64 /min Kathy Daly MD Work Phone: [facility] Work Phone: 10-09-2020 08:20-0400 Respiratory rate 22 /min Kathy Daly MD Work Phone: [facility] Work Phone: 10-09-2020 08:20-0400 SaO2% (BldA) [Mass fraction] 94 % Kathy Daly MD Work Phone: [employer] Work Phone: 10-09-2020 08:20-0400 Systolic blood pressure 144 mm[Hg] Kathy Daly MD Work Phone: [facility] Work Phone: 10-06-2020 08:00-0400 Body height 152.4 cm Kathy Daly MD Work Phone: [facility] Work Phone: 10-06-2020 07:59-0400 Body mass index (BMI) [Ratio] 35.15 kg/m2 Kathy Daly MD Work Phone: [facility] Work Phone: 10-06-2020 07:59-0400 Body weight 81.65 kg Kathy Daly MD Work Phone: [employer] Work Phone: 06-22-2019 09:00-0400 Pulse Oximetry 93 % [facility] , [place] 06-22-2019 09:00-0400 Respiratory Rate 20 /min [facility], [place] 06-22-2019 07:57-0400 BP Diastolic 74 mm[Hg] [facility] , [place] 06-22-2019 07:57-0400 BP Systolic 132 mm[Hg] [facility] , [place] 06-22-2019 07:57-0400 Pulse (Heart Rate) 74 /min [facility], [place] 06-21-2019 23:19-0500 Body Temperature 97.9 [degF] [facility] [place] 06-20-2019 08:32-0500 BMI (Body Mass Index) 35.51 kg/m2 [facility], [place] 06-20-2019 08:32-0500 Body weight 82.46 kg [facility] , [place] 06-20-2019 05:45-0500 Height 152.4 cm Michael [facility] , [place] 05-26-2019 10:53-0500 BP Diastolic [...] Provider Facility Start: 09-11-2024 ambulatory Castillo Palacios ty:[facility] Start: 08-20-2024 ambulatory Castillo Palacios ty:[facility] Start: 07-15-2024 End: 07-15-2024 ambulatory Out of Town Doctor [facility] Work Phone: Start: 07-15-2024 End: 07-15-2024 Departed Referred Castillo Ortiz MD [facility] Start: 07-15-2024 End: 07-15-2024 ambulatory Castillo HURLEY Facility:[facility] Start: 04-28-2024 End: 04-28-2024 Office outpatient visit 25 minutes [facility] DARION KENDRICK Work Phone: [facility] - [place] Comment on above: 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); Incomplete bladder emptying; Nephrolithiasis Start: 04-28-2024 End: 04-28-2024 ambulatory [facility] Start: 04-18-2024 ambulatory Castillo Palacios ty:[facility] Start: 04-18-2024 Registered Referred Castillo Angel MOODY -[facility] Start: 04-17-2024 End: 04-17-2024 Telephone encounter Kathy Foster CNP [facility] [place] Comment on above: Other (Patient updat e, apt confirmation) Start: 04-08-2024 End: 04-08-2024 Telephone encounter Yenifer A Dao DO Work Phone: [facility] [place] Comment on above: Hospital Follow-up Start: 04-07-2024 End: 04-07-2024 Subsequent hospital visit by physician [facility] Exam Room [address] [facility] [address] Comment on above: Arrived Start: 04-07-2024 End: 04-07-2024 Emergency department patient visit MARYBETHGERMAN GLASER [facility] Start: 04-07-2024 End: 04-11-2024 Evaluation and management of inpatient Marybeth Glaser DO Work Phone: [facility] Medical Surgical Unit MSU 4S Comment on above: Urinary tract infect ion without hematuria, site unspecified (Primary Dx) Start: 02-27-2024 End: 02-27-2024 ambulatory KATHYCRISTINA AGUILARNJCAR [facility] Start: 02-27-2024 End: 02-27-2024 Office outpatient visit 25 minutes Kathy Ordonez MD Work Phone: [facility] I[facility]a Comment on above: 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); Incomplete bladder emptying Start: 12-27-2023 End: 12-27-2023 Office outpatient visit 25 minutes Lashawn Figueroa VARNISH INSPECTOR - MEDICAL BILLING ASSOCIATE Work Phone: [facility] [place] Start: 08-30-2023 Office outpatient vi sit 10 minutes Lashawnninfa Figueroa VARNISH INSPECTOR - MEDICAL BILLING ASSOCIATE Work Phone: [facility] Start: 08-10-2023 Telephone encounter Roopa Espinoza MD Work Phone: [facility] Comment on above: Referral Request Start: 07-12-2023 Office outpatient vi sit 40 minutes Lashawnninfa Skinneryre VARNISH INSPECTOR - MEDICAL BILLING ASSOCIATE Work Phone: [facility] Start: 07-03-2023 Telephone encounter Kimberley Mai VARNISH INSPECTOR - MEDICAL BILLING ASSOCIATE Work Phone: [facility] Comment on above: Appointment Request Start: 05-31-2023 Office outpatient vi sit 40 minutes Lashawn Figueroa VARNISH INSPECTOR - MEDICAL BILLING ASSOCIATE Work Phone: [facility] Comment on above: Goals of care, couns eling/discussion (Primary Dx); Anxiety; Debility; At risk for constipation; Palliative care encounter Start: 05-21-2023 End: 05-21-2023 Office outpatient visit 25 minutes Ana Hayden ORLANDO Work Phone: [facility] Comment on above: Encounter for preope rative pulmonary examination (Primary Dx); Pulmonary emphysema, unspecified emphysema type (HCC); Restrictive lung disease; RICKY (obstructive sleep apnea); Chronic hypoxic respiratory failure, on home oxygen therapy (HCC); Pulmonary HTN (HCC); History of atrial flutter; History of COVID-19 Start: 05-21-2023 End: 05-21-2023 Patient encounter status Ana Blake DARION Work Phone: [facility] [place] Work Phone: Start: 05-21-2023 End: 05-21-[address] [facility] Start: 05-21-2023 End: 05-21-2023 Encounter for preprocedural respiratory examination ANA BLAKE [facility] Start: 05-11-2023 Telephone encounter Kimberley Mai VARNISH INSPECTOR - MEDICAL BILLING ASSOCIATE Work Phone: [facility] Start: 03-21-2023 Non-patient / Non-visit MD Brina Post Work Phone: [facility] Work Phone: Start: 03-20-2023 Non-patient / Non-visit MD Brina Post Work Phone: [facility] Work Phone: Start: 03-19-2023 Non-patient / Non-visit MD Brina Post Work Phone: [facility] Work Phone: Start: 03-18-2023 End: 03-22-2023 Evaluation and management of inpatient MD Zechariah Post [facility] Work Phone: Start: 03-05-2023 End: 03-05-2023 Office outpatient visit 25 minutes Jaylyn Ortiz VARNISH INSPECTOR - MEDICAL BILLING ASSOCIATE Work Phone: [facility] Comment on above: History of atrial fl utter (Primary Dx); 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) ; RICKY (obstructive sleep apnea); Dependence on nocturnal oxygen therapy Start: 02-27-2023 End: 02-27-2023 Office outpatient new 30 minutes Bipin Pierson DO Work Phone: [facility] Comment on above: Chronic cough (Prima ry Dx); Chronic rhinitis Start: 02-19-2023 Telephone encounter Tk ulloa MD Work Phone: [facility] Start: 02-16-2023 Telephone encounter Roopa Espinoza MD Work Phone: [facility] Comment on above: Patient Update (Ther apy) Start: 02-13-2023 End: 02-13-2023 Subsequent hospital visit by physician [facility] Xr Portable [facility] Radiology Comment on above: Arrived Start: 02-12-2023 End: 02-19-2023 Evaluation and management of inpatient Ramiro Baird MD Work Phone: [facility] Medical Unit 4N Comment on above: Inability to walk (P rimary Dx); Chronic pain of left knee; Bilateral leg edema; Chronic obstructive pulmonary disease, unspecified COPD type (HCC); Osteoarthritis of left knee, unspecified osteoarthritis type Start: 02-09-2023 End: 02-09-2023 Subsequent hospital visit by physician Kimberley Mai VARNISH INSPECTOR - MEDICAL BILLING ASSOCIATE Work Phone: [facility] Comment on above: 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 Start: 02-03-2023 Refill Roopa reynoso MD Work Phone: [facility] Comment on above: Refill Request Start: 01-30-2023 End: 01-30-2023 Office outpatient visit 15 minutes Kimberley Mai VARNISH INSPECTOR - MEDICAL BILLING ASSOCIATE Work Phone: [facility] Comment on above: 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 Start: 01-18-2023 End: 01-18-2023 Office outpatient visit 40 minutes Jaylyn Ortiz VARNISH INSPECTOR - MEDICAL BILLING ASSOCIATE Work Phone: [facility] Comment on above: Moderate persistent asthma without complication (Primary Dx); Hospital discharge follow-up; RICKY (obstructive sleep apnea) Start: 12-30-2022 End: 01-04-2023 Evaluation and management of inpatient Tara Frazier MD Work Phone: [facility] 4S TELEMETRY Comment on above: Shortness of breath (Primary Dx); Edema leg Start: 12-12-2022 End: 12-13-2022 Emergency department patient visit Kathy Daly MD Work Phone: [facility] ED Comment on above: Difficulty in walkin g (Primary Dx); Generalized weakness Start: 11-23-2022 Refill Roopa reynoso MD Work Phone: [facility] Comment on above: Refill Request Start: 11-08-2022 Telephone encounter Roopa Espinoza MD Work Phone: [facility] Comment on above: Patient Question Start: 10-23-2022 End: 10-23-2022 ambulatory ROOPA MADERA Facility:[facility] Start: 10-23-2022 End: 10-23-2022 Patient encounter procedure Roopa Madera MD Work Phone: [facility] Comment on above: Primary osteoarthrit is of both knees (Primary Dx); Callus of foot Start: 09-30-2022 Refill Roopa reynoso MD Work Phone: [facility] Comment on above: Med Change Request Start: 09-28-2022 End: 09-28-2022 Office outpatient visit 15 minutes Denise Holley VARNISH INSPECTOR - MEDICAL BILLING ASSOCIATE Work Phone: [facility] Comment on above: 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) Start: 09-15-2022 End: 09-15-2022 Subsequent hospital visit by physician Kathy Ordonez MD Work Phone: [facility] Radiology Comment on above: Kidney stone Start: 09-08-2022 Telephone encounter Roopa Espinoza MD Work Phone: [facility] Comment on above: Patient Update Start: 07-31-2022 End: 07-31-2022 Patient encounter procedure Roopa Madera MD Work Phone: [facility] Comment on above: Pulmonary emphysema, unspecified emphysema type (HCC) (Primary Dx); Osteoarthritis, unspecified osteoarthritis type, unspecified site; Pain of right great toe Start: 07-24-2022 Refill Roopa reynoso MD Work Phone: [facility] Comment on above: Refill Request Start: 07-21-2022 Telephone encounter Roopa Espinoza MD Work Phone: [facility] Comment on above: Results (CT) Start: 07-17-2022 Telephone encounter Denise Holley VARNISH INSPECTOR - MEDICAL BILLING ASSOCIATE Work Phone: [facility] Start: 07-14-2022 Refill Roopa reynoso MD Work Phone: [facility] Comment on above: Refill Request Start: 02-28-2023 Transcribe Orders Roopa salazar MD Work Phone: [facility] Comment on above: Interstitial lung di sease (HCC) (Primary Dx) Start: 06-12-2022 End: 06-12-2022 Patient encounter procedure Roopa Madera MD Work Phone: [facility] Comment on above: Pulmonary fibrosis ( HCC) (Primary Dx); Interstitial pulmonary disease (HCC); Primary osteoarthritis of left knee Start: 12-16-2021 Telephone encounter Roopa Espinoza MD Work Phone: [facility] Comment on above: Patient Question Start: 11-24-2021 Telephone encounter Roopa Espinoza MD Work Phone: [facility] Comment on above: Patient Update Start: 11-21-2021 Refill Roopa reynoso MD Work Phone: [facility] Comment on above: Refill Request Start: 10-21-2021 Telephone encounter Roopa Espinoza MD Work Phone: [facility] Comment on above: Patient Update Start: 10-10-2021 End: 10-10-2021 Patient encounter procedure Roopa Madera MD Work Phone: [facility] Comment on above: Primary osteoarthrit is of left knee (Primary Dx); Primary osteoarthritis of right knee Start: 09-12-2021 Refill Roopa reynoso MD Work Phone: [facility] Comment on above: Refill Request Start: 08-30-2021 Telephone encounter Roopa Espinoza MD Work Phone: [facility] Comment on above: Constipation Start: 07-19-2021 Refill Roopa reynoso MD Work Phone: [facility] Comment on above: Refill Request Start: 06-30-2021 End: 06-30-2021 Subsequent hospital visit by physician Nery Leggett PA-C Work Phone: [facility] Comment on above: Renal calculi; Incomplete bladder emptying Start: 06-05-2021 End: 06-05-2021 Emergency department patient visit Daiana Schreiber MD Work Phone: [facility] ED Comment on above: Left flank pain (Veronique ian Dx); Acute left-sided low back pain without sciatica; Retention of urine; Benign prostatic hyperplasia with urinary hesitancy Start: 02-25-2021 End: 02-25-2021 Emergency department patient visit Susanne Thrasher MD Work Phone: [facility] ED Comment on above: Aspiration of foreig n body, initial encounter (Primary Dx) Start: 01-31-2021 End: 01-31-2021 Subsequent hospital visit by physician Joann Kline MD Work Phone: [facility] Pulm Function Test Comment on above: Shortness of breath Start: 10-05-2020 End: 10-09-2020 Evaluation and management of inpatient Kathy Daly MD Work Phone: [facility] 2E TELEMETRY Comment on above: Shortness of breath (Primary Dx) Start: 10-10-2019 End: 10-10-2019 Subsequent hospital visit by physician Linda Augustine Work Phone: [facility] Comment on above: Arrived Start: 09-24-2019 End: 09-24-2019 Subsequent hospital visit by physician Roopa Madera Work Phone: [facility] Start: 06-27-2019 End: 06-27-2019 Subsequent hospital visit by physician Roopa Madera Work Phone: [facility] Start: 06-20-2019 End: 06-22-2019 Evaluation and management of inpatient Michael Giles Work Phone: [facility] 2E TELEMETRY Comment on above: Influenza with respi ratory manifestation other than pneumonia (Primary Dx); Exacerbation of asthma, unspecified asthma severity, unspecified whether persistent; Hypoxia Start: 06-09-2019 End: 06-09-2019 Subsequent hospital visit by physician Kathy Ordonez Work Phone: [facility] Comment on above: Renal calculi Start: 05-26-2019 End: 05-26-2019 Emergency department patient visit Kee Marrero Work Phone: [facility] ED Comment on above: Generalized abdomina l pain (Primary Dx); Acute low back pain without sciatica, unspecified back pain laterality Start: 01-20-2019 End: 01-21-2019 ambulatory [facility] Start: 12-26-2018 End: 12-26-2018 Subsequent hospital visit by physician Elissa Harry Work Phone: [facility] Comment on above: Arrived Start: 05-02-2018 Patient encounter procedure [facility] Start: 12-19-2017 Patient encounter procedure [facility] Start: 12-12-2017 Encounter for other preprocedural examination [facility] Start: 12-12-2017 Patient encounter procedure [facility] Start: 11-22-2017 Patient encounter procedure [facility] Encounter for other preprocedural examination [facility] Procedures Date Procedure Procedure Detail Performing [...] Thyrotropin [Units/v olume] in Serum or Plasma [facility] 1 Start: 03-19-2023 US urinary tract MD [...] metabolic pane l calcium total Channing Diana Jjaila Work Phone: Start: 02-14-2023 Culture bacterial quanttative colony count urine Channing Bridges Work Phone: Start: 02-14-2023 Urinalysis complete panel - Urine Channing Bridges Work Phone: Start: 02-14-2023 Dup-scan xtr veins c omplete bilateral study Jose Alfredo Chambers DO Work Phone: Start: 02-14-2023 Thyrotropin [Units/v olume] in Serum or Plasma [facility] Portable Start: 02-14-2023 Basic metabolic pane l calcium total Jose Alfredo Chambers DO Work Phone: Start: 02-13-2023 OXYGEN THERAPY Ramiro aBird MD Work Phone: Start: 02-13-2023 OXYGEN THERAPY [...] r eal time w/image complete Anni Vernon VARNISH INSPECTOR - MEDICAL BILLING ASSOCIATE Work Phone: Start: 01-03-2023 Comprehensive metabo lic [...] 12-31-2022 Radiologic examinati on foot 2 views Uinque Encinas MD Work Phone: Start: 12-31-2022 Comprehensive [...] olume] in Serum or Plasma Denise Holley VARNISH INSPECTOR - MEDICAL BILLING ASSOCIATE Work Phone: Start: 06-30-2021 Us retroperitoneal r eal time w/image complete Nery Leggett PA-C Work Phone: Start: 06-05-2021 Urnls dip stick/tabl et rgnt auto w/o microscopy Tono Lassiter APRN - [facility] Work Phone: Start: 06-05-2021 Comprehensive metabo lic panel Tono Lassiter APRN - MEDICAL BILLING ASSOCIATE Work Phone: Start: 06-05-2021 Ct abdomen & pelvis w/o contrast material Tono Lassiter APRN - [facility] Work Phone: Start: 02-25-2021 Radiologic exam ches [...] Author Start: 02-17-2026 Diabetes Screening Diabetes Screening [facility] Start: 04-11-2025 [facility]inine [facility] Start: 04-11-2025 Potassium measurement Potassium Level [facility] Start: 04-08-2025 Creatinine measurement Creatinine Level [facility] Start: 04-08-2025 Potassium measurement Potassium Level [facility] Start: 10-26-2024 End: 04-28-2025 XR Abdomen Single view XR abdomen 1 view Imaging Routine Nephrolithiasis Expected: 10/26/2024, Expires: 04/28/2025 [facility] Work Phone: Comment on above: Expected: 10/26/2024, Expires: Start: 06-14-2024 Thyroid stimulating hormone measurement TSH Level [facility] Start: 04-28-2024 End: 04-28-2024 Patient encounter procedure 04/28/2024 1:30 PM EST Office Visit [facility] [place] [facility] [place] [address] [place] [id number] Ktahy Jacome APRN - MEDICAL BILLING ASSOCIATE [address] [place] [address] [facility] [place] Start: 03-18-2024 DIABETES SCREEN DIABETES SCREEN [facility] Start: 03-18-2024 Diabetes Screening Diabetes Screening [facility] Start: 02-18-2024 Creatinine measurement Creatinine Level [facility] Start: 02-18-2024 Potassium measurement Potassium Level [facility] Start: 02-15-2024 Creatinine measurement Creatinine Level [facility] Start: 02-15-2024 Potassium measurement Potassium Level [facility] Start: 02-15-2024 Thyroid stimulating hormone measurement TSH Level [facility] Start: 01-05-2024 Creatinine measurement Creatinine Level [facility] Start: 01-05-2024 Potassium measurement Potassium Level [facility] Start: 12-16-2023 COVID-19 Vaccine ( season) COVID-19 Vaccine () [facility] Start: 12-16-2023 COVID-19 Vaccine () COVID-19 Vaccine () [facility] Start: 12-16-2023 COVID-19 Vaccine () COVID-19 Vaccine () [facility] Start: 12-16-2023 Influenza vaccination Influenza Vaccine (#1) [facility] Start: 12-13-2023 Creatinine measurement Creatinine Level [facility] Start: 12-13-2023 Potassium measurement Potassium Level [facility] Start: 10-09-2023 End: 10-09-2023 Patient encounter procedure 10/09/2023 1:00 PM EDT Office Visit [facility] [address] [place] [address] Denise Holley, VARNISH INSPECTOR - MEDICAL BILLING ASSOCIATE [address] [place] [address] [facility] Start: 10-09-2023 End: 10-09-2023 Telemedicine consultation with patient 10/09/2023 1:00 PM EDT Telemedicine [facility] [address] [place] [address] Denise Holley, VARNISH INSPECTOR - MEDICAL BILLING ASSOCIATE [address] [place] [address] [facility] Start: 09-20-2023 End: 09-20-2023 Patient encounter procedure 09/20/2023 1:40 PM EDT Office Visit [facility] [address] [place] [phone] Brenda Andrade VARNISH INSPECTOR - MEDICAL BILLING ASSOCIATE [address] [place] [address] [facility] Start: 08-06-2023 End: 08-06-2023 Patient encounter procedure 08/06/2023 1:40 PM EDT Office Visit [facility] [address] [place] [id number] Kimberley Mai, VARNISH INSPECTOR - MEDICAL BILLING ASSOCIATE [address] [place] [address] [facility] Start: 06-25-2023 End: 06-25-2023 Patient encounter procedure 06/25/2023 10:30 AM EDT Office Visit [facility] [address] [facility] [place] [address] [place] [address] Joann Kline MD [address] [place] [address] [facility] Start: 05-21-2023 End: 05-21-2024 XR Chest 2 Views XR chest 2 views Imaging Routine History of COVID-19 Expected: 05/21/2023, Expires: 05/21/2024 [facility] Work Phone: Comment on above: Expected: 05/21/2023, Expires: Start: 05-10-2023 End: 05-10-2023 Patient encounter procedure 05/10/2023 11:45 AM EST Office Visit [facility] [address] [place], [place] [id number] Joann Kline MD [address] [place], [place] [id number] [facility] Start: 04-16-2023 Advance Directive Discussion Advance Directive Discussion [facility] Start: 04-16-2023 Behavioral Health Screening Behavioral Health Screening [facility] Start: 03-27-2023 Creatinine measurement Creatinine Level [facility] Start: 03-27-2023 Potassium measurement Potassium Level [facility] Start: 03-21-2023 Consultation [facility] Start: 03-21-2023 Patient discharge [facility] Start: 03-19-2023 Introduction of urinary catheter [facility] Start: 03-18-2023 Following clinical pathway protocol [facility] Start: 03-18-2023 Ambulation without limitation [facility] Start: 03-18-2023 Assessment of risk of venous thromboembolism [facility] Start: 03-18-2023 Insertion of catheter into peripheral vein [facility] Start: 03-18-2023 Oxygen therapy [facility] Start: 03-18-2023 Providing care according to standard [facility] Start: 03-18-2023 Referral to occupational therapist [facility] Start: 03-18-2023 Referral to service [facility] Start: 03-18-2023 [facility] Start: 03-18-2023 Admission procedure [facility] Start: 03-18-2023 Inhalation therapy procedure [facility] Start: 03-05-2023 End: 03-05-2023 Patient encounter procedure 03/05/2023 1:20 PM EST Office Visit [facility] [address] [place] [address] Jaylyn Ortiz, VARNISH INSPECTOR - [facility] [address] [place] [address] [facility] Start: 02-27-2023 End: 02-27-2023 Patient encounter procedure 02/27/2023 11:15 AM EST Office Visit [facility] [address] [place] [id number] Bipin Pierson DO [address] [place] [address] [facility] Start: 02-24-2023 Thyroid stimulating hormone measurement TSH Level [facility] Start: 02-09-2023 End: 02-09-2023 Patient encounter procedure 02/09/2023 2:30 PM EDT Appointment [facility] [address] [place] [id number] Kimberley Mai, VARNISH INSPECTOR - MEDICAL BILLING ASSOCIATE [address] [place] [address] [facility] Start: 01-30-2023 End: 01-31-2024 Creatinine [Mass/volume] in Serum or Plasma Creatinine, Serum Lab Routine Hypertrophy of prostate with urinary obstruction Expected: 01/30/2023 (Approximate), Expires: 01/31/2024 [facility] Work Phone: Comment on above: Expected: 01/30/2023 (Approximate), Expi res: 01/31/2024 Start: 01-30-2023 End: 01-31-2024 US Retroperitoneum US retroperitoneum Imaging Routine Hypertrophy of prostate with urinary obstruction Expected: 01/30/2023, Expires: 01/31/2024 [facility] Comment on above: Expected: 01/30/2023, Expires: Start: 01-30-2023 End: 01-30-2023 Patient encounter procedure 01/30/2023 11:30 AM EDT Office Visit [facility] [address] [place] [phone] Kimberley Mai, VARNISH INSPECTOR - MEDICAL BILLING ASSOCIATE [address] [place] [address] [facility] Start: 01-09-2023 End: 01-09-2023 Patient encounter procedure 01/09/2023 10:45 AM EDT Office Visit [facility] [address] [place] [address] Joann Kline MD [address] [place] [address] [facility] Start: 12-15-2022 Covid-19 Vaccine ( season) Covid-19 Vaccine () [facility] Start: 12-15-2022 Influenza vaccination [facility] Start: 09-28-2022 End: 09-28-2022 Patient encounter procedure 09/28/2022 Office Visit Urology KishanHugobruno Robertson, VARNISH INSPECTOR - MEDICAL BILLING ASSOCIATE [address] [place] [address] [facility] Start: 06-13-2022 COVID-19 VACCINE (6 - Moderna series) COVID-19 VACCINE (6 - Moderna series) [facility] Start: 04-16-2022 ADVANCE DIRECTIVE DISCUSSION ADVANCE DIRECTIVE DISCUSSION [facility] Start: 04-16-2022 DEPRESSION ASSESSMENT DEPRESSION ASSESSMENT [facility] Start: 03-08-2022 Depression Screen Depression Screen [facility] Start: 12-15-2021 Influenza vaccination INFLUENZA (#1) [facility] Start: 10-07-2021 Creatinine measurement Creatinine monitoring [facility] Start: 10-07-2021 Potassium monitoring Potassium monitoring [facility] Start: 09-13-2021 End: 09-13-2021 [facility] Start: 08-11-2021 COVID-19 VACCINE (4 - Booster for Moderna series) COVID-19 VACCINE (4 - Booster for Moderna series) [facility] Start: 07-07-2021 End: 07-07-2021 Patient encounter procedure [facility] [address] Start: 06-30-2021 End: 06-30-2021 Patient encounter procedure [facility] [address] Start: 06-07-2021 End: 06-07-2021 Patient encounter procedure 06/07/2021 Appointment Radiology [facility] Start: 06-07-2021 Subsequent hospital visit by physician 06/07/2021 Hospital Encounter Radiology Lawson Law MD [address] [place] [address] [facility] Start: 04-16-2021 ADVANCE DIRECTIVE DISCUSSION ADVANCE DIRECTIVE DISCUSSION [facility] Start: 03-08-2021 End: 03-08-2021 Patient encounter procedure 03/08/2021 Office Visit Pulmonology Joann Kline MD [address] [place] [address] [facility] Start: 02-03-2021 End: 02-03-2021 Patient encounter procedure 02/03/2021 Office Visit Pulmonology Joann Kline MD [address] [place] [address] [phone] [facility] Start: 12-15-2020 Influenza vaccination Flu vaccine (Season Ended) [facility] Work Phone: Start: 12-08-2020 COVID-19 Vaccine (3 - Booster for Moderna series) COVID-19 Vaccine (3 - Booster for Moderna series) [facility] Start: 11-07-2020 COVID-19 Vaccine (3 - Booster for Moderna series) COVID-19 Vaccine (3 - Booster for Moderna series) [facility] Start: 01-30-2020 Pneumococcal 65+ years Vaccine (2 of 2 - PPSV23) Pneumococcal 65+ years Vaccine (2 of 2 - PPSV23) [facility] Start: 01-30-2020 Pneumococcal Vaccine: 65+ (2 - PPSV23 or PCV20) Pneumococcal Vaccine: 65+ (2 - PPSV23 or PCV20) [facility] Start: 01-30-2020 Pneumococcal Vaccine: 65+ (2 of 2 - PPSV23 or PCV20) Pneumococcal Vaccine: 65+ (2 of 2 - PPSV23 or PCV20) [facility] Start: 01-30-2020 Pneumococcal Vaccine: 65+ Years (2 - PPSV23 if available, else PCV20) Pneumococcal Vaccine: 65+ Years (2 - PPSV23 if available, else PCV20) [facility] Start: 01-30-2020 PNEUMOCOCCAL: 65+ (2 - PPSV23 if available, else PCV20) PNEUMOCOCCAL: 65+ (2 - PPSV23 if available, else PCV20) [facility] Start: 01-30-2020 PNEUMOCOCCAL: 65+ (2 - PPSV23 or PCV20) PNEUMOCOCCAL: 65+ (2 - PPSV23 or PCV20) [facility] Start: 12-18-2019 End: 12-18-2019 Office Visit 12/18/2019 Office Visit Deborah Oviedo PA-C [address] [place] [address] [phone] [facility] Start: 12-16-2019 Influenza vaccination Flu vaccine (Season Ended) [facility] Start: 07-17-2019 End: 07-17-2019 Office Visit 07/17/2019 Office Visit Deborah Oviedo PA-C [address] [place] [address] [phone] [facility] Start: 06-12-2019 End: 06-12-2019 Office Visit 06/12/2019 Office Visit Deborah Oviedo PA-C [address] [place] [address] [phone] [facility] Start: 03-26-2019 Pneumococcal Vaccine: 50+ Years (2 of 2 - PPSV23) Pneumococcal Vaccine: 50+ Years (2 of 2 - PPSV23) [facility] Start: 03-26-2019 Pneumococcal Vaccine: 65+ Years (2 - PPSV23 if available, else PCV20) Pneumococcal Vaccine: 65+ Years (2 - PPSV23 if available, else PCV20) [facility] Start: 03-26-2019 Pneumococcal Vaccine: 65+ Years (2 - PPSV23 or PCV20) Pneumococcal Vaccine: 65+ Years (2 - PPSV23 or PCV20) [facility] Start: 03-26-2019 Pneumococcal Vaccine: 65+ Years (2 of 2 - PPSV23 or PCV20) Pneumococcal Vaccine: 65+ Years (2 of 2 - PPSV23 or PCV20) [facility] Start: 12-15-2018 Influenza vaccination Flu vaccine (#1) [facility] Start: 10-06-2018 Annual Wellness Visit (AWV) Annual Wellness Visit (AWV) [facility] Start: 11-09-2014 RSV Immunization for Adults (1 - 1-dose 75+ series) RSV Immunization for Adults (1 - 1-dose 75+ series) [facility] Start: 11-09-2004 Pneumococcal 65+ years Vaccine (1 of 1 - PPSV23) Pneumococcal 65+ years Vaccine (1 of 1 - PPSV23) [facility] Work Phone: Start: 11-09-2004 Pneumococcal 65+ years Vaccine (1 of 2 - PCV13) Pneumococcal 65+ years Vaccine (1 of 2 - PCV13) [place] Start: 11-09-2004 Pneumococcal 65+ years Vaccine (2 of 2 - PPSV23) Pneumococcal 65+ years Vaccine (2 of 2 - PPSV23) [facility] Work Phone: Start: 11-09-2004 PNEUMOVAX AGE 65 AND OVER WITH 5YR LOOKBACK (#1) PNEUMOVAX AGE 65 AND OVER WITH 5YR LOOKBACK (#1) [facility] Start: 1999 RSV Immunization aged 60 or older (1 - 1-dose 60+ series) RSV Immunization aged 60 or older (1 - 1-dose 60+ series) [facility] Start: 1999 RSV Vaccine (1 - 1-dose 60+ series) RSV Vaccine (1 - 1-dose 60+ series) [facility] Start: 11-09-1989 Shingles Vaccine (1 of 2) Shingles Vaccine (1 of 2) [facility] Start: 11-09-1989 SHINGRIX VACCINE (1 of 2) SHINGRIX VACCINE (1 of 2) [facility] Start: 11-09-1989 Zoster Vaccines (1 of 2) Zoster Vaccines (1 of 2) [facility] Start: 11-09-1958 DTaP/Tdap/Td vaccine (1 - Tdap) DTaP/Tdap/Td vaccine (1 - Tdap) [facility] Start: 11-09-1958 DTaP/Tdap/Td Vaccines (1 - Tdap) DTaP/Tdap/Td Vaccines (1 - Tdap) [facility] Start: 11-09-1958 Urine microalbumin profile [facility] Start: 11-09-1957 Diabetes mellitus screening Diabetes Screening [facility] Start: 1951 Depression Monitoring Depression Monitoring [facility] Start: 1951 Depression Screening Depression Screening [facility] Start: 11-09-1950 DTaP/Tdap/Td vaccine (1 - Tdap) DTaP/Tdap/Td vaccine (1 - Tdap) [facility] Work Phone: Start: 11-09-1949 Lipid panel Lipid screen [facility] Start: 11-09-1949 Lipid screen Lipid screen [facility] Work Phone: Start: 1940 Echocardiography Echocardiogram [facility] Start: 1939 Hepatitis B Vaccines (1 of 3 - 3-dose series) Hepatitis B Vaccines (1 of 3 - 3-dose series) [facility] Start: 1940 Lipid panel Lipid Panel [facility] Start: 1940 Medicare Annual Wellness (AWV) Medicare Annual Wellness (AWV) [facility] [employer] Bacteria identified in Blood by Culture [facility] [employer] Work Phone: End: 04-10-2024 Bacteria identified in Urine by Culture [facility] Work Phone: Comment on above: Once (Lab) for 1 Occurrences starting until 04/10/2024 Once for 1 Occurrenc es starting 04/10/2024 until 04/10/2024 End: 06-25-2019 Basic Metabolic Panel w/ Reflex to MG Basic Metabolic Panel w/ Reflex to MG Lab Routine Daily for 5 Occurrences starting 06/21/2019 until 06/25/2019, 2 completed [facility] [employer] Comment on above: Daily for 5 Occurrences starting 020 until 06/25/2019, 2 completed End: 06-25-2019 CBC CBC Lab Routine Daily for 5 Occurrences starting 06/21/2019 until 06/25/2019, 2 completed [facility] [employer] Comment on above: Daily for 5 Occurrences starting 020 until 06/25/2019, 2 completed End: 02-25-2021 Comprehensive metabolic 2000 panel - Serum or Plasma Comprehensive Metabolic Panel Lab STAT One Time for 1 Occurrences starting 02/25/2021 until 02/25/2021 [employer] Work Phone: Comment on above: One Time for 1 Occurrences starting 02/14 until 02/25/2021 End: 07-12-2023 Ct thorax w/o contrast material CT CHEST WO IVCON Radiology Routine Interstitial pulmonary disease (HCC) 1 Occurrences starting 06/12/2022 until 07/12/2023 [facility] Work Phone: Comment on above: 1 Occurrences starting 06/12/2022 until 07/12/2023 End: 06-21-2019 Culture, Respiratory Culture, Respiratory Microbiology Routine One Time for 1 Occurrences starting 06/21/2019 until 06/21/2019 [facility] Comment on above: One Time for 1 Occurrences starting 10/2019 until 06/21/2019 End: 06-05-2021 Culture, Urine [facility] Work Phone: Comment on above: One Time for 1 Occurrences starting 05/18 until 06/05/2021 EKG 12 Lead - Chest Pain EKG 12 Lead - Chest Pain ECG STAT 02/25/2021 11:29 AM EST [facility] Work Phone: End: 02-25-2021 Hemogram (CBC) w/Auto Diff Hemogram (CBC) w/Auto Diff Lab STAT One Time for 1 Occurrences starting 02/25/2021 until 02/25/2021 [employer] Work Phone: Comment on above: One Time for 1 Occurrences starting 02/14 until 02/25/2021 HHN Treatment HHN Treatment Respiratory Care Routine BID until discontinued starting 06/22/2019 [facility] Comment on above: BID until discontinued starting 06/22/19 20 Initiate Oxygen Ther apy Protocol Initiate Oxygen Therapy Protocol Respiratory Care Routine Daily until discontinued starting 06/20/2019 [facility] Comment on above: Daily until discontinued starting 2019 End: 06-21-2019 Microscopic observation Gram stain Nom (Unsp spec) Gram Stain Microbiology Routine One Time for 1 Occurrences starting 06/21/2019 until 06/21/2019 [facility] Comment on above: One Time for 1 Occurrences starting 10/2019 until 06/21/2019 OUTSIDE PROCEDURE SCAN OUTSIDE P ROCEDURE SCAN Procedures Ordered: 09/15/2022 [facility] Comment on above: Ordered: 09/15/2022 OUTSIDE PROCEDURE SCAN OUTSIDE P ROCEDURE SCAN Procedures Ordered: 02/08/2023 [facility] Comment on above: Ordered: 02/08/2023 Oxygen therapy [[facility] Data Set] Initiate Oxygen Therapy Protocol Respiratory Care Routine Daily until discontinued starting 10/06/2020 [employer] Work Phone: Comment on above: Daily until discontinued starting 2020 Patient referral [facility] Work Phone: End: 12-31-2022 Respiratory pathogens DNA and RNA panel - Nasopharynx by JANIE with non-probe detection SARS-CoV-2 and Respiratory PCR Panel Microbiology STAT Once (Lab) for 1 Occurrences starting 12/31/2022 until 12/31/2022 [facility] [employer] Work Phone: Comment on above: Once (Lab) for 1 Occurrences starting until 12/31/2022 End: 04-10-2024 Urine Hold Cup Urine Hold Cup Lab Routine Once for 1 Occurrences starting 04/10/2024 until 04/10/2024 [facility] [employer] Comment on above: Once for 1 Occurrences starting 04/10/20 until 04/10/2024 End: 02-09-2023 US Retroperitoneum [facility] [employer] [facility] Work Phone: Comment on above: Once for 1 Occurrences starting 02/10/20 until 02/09/2023 End: 09-15-2022 XR Abdomen Single [facility] Work Phone: Comment on above: Once for 1 Occurrences starting 09/16/19 until 09/15/2022 End: 11-09-2022 XR KNEE GENERAL 4V AP BOTH/PA BOTH/LAT/MERC LEFT XR KNEE GENERAL 4V AP BOTH/PA BOTH/LAT/MERC LEFT Radiology Routine Primary osteoarthritis of left knee 1 Occurrences starting 10/10/2021 until 11/09/2022 [facility] Work Phone: Comment on above: 1 Occurrences starting 10/10/2021 until 11/09/2022 [facility] Immunizations Immunization Date Immunization Notes Care Provider Joann patricio 04-08-2024 influenza vaccine A& B surf ant adjuvanted (Fluad) HIGH-DOSE injection 0.5 mL Marybeth Glaser DO Work Phone: [facility] 02-23-2023 Influenza, high dose seasonal [facility] Doctor [facility] 02-23-2023 influenza, high dose seasonal, preservative-free MD Zechariah Post Work Phone: [facility] 02-23-2023 influenza virus vaccine, unspecified formulation Lashawn Figueroa VARNISH INSPECTOR - MEDICAL BILLING ASSOCIATE Work Phone: [facility] 01-04-2023 pneumococcal vaccine , unspecified formulation Tara Frazier MD Work Phone: [facility] 04-12-2021 COVID-19 vaccine, booster dose (MODERNA) Roopa Madera MD Work Phone: [facility] 12-27-2020 influenza, high-dose , quadrivalent vaccine (FLUZONE HIGH DOSE QUADRIVALENT) Roopa Madera MD Work Phone: [facility] 12-27-2020 influenza virus vaccine, unspecified formulation Hugobruno Kishan VARNISH INSPECTOR - MEDICAL BILLING ASSOCIATE Work Phone: [facility] 06-10-2020 COVID-19, Moderna, P F, 100mcg/0.5mL Kathy Daly MD Work Phone: [facility] 05-13-2020 COVID-19, Moderna, P F, 100mcg/0.5mL Kathy Daly MD Work Phone: [facility] 01-29-2019 pneumococcal conjuga te vaccine, 13 valent Roopa Madera MD Work Phone: [facility] NEGATED: Highlighted row has not occurred!02-17-2023 Influenza, Seasonal, Quadrivalent, Adjuvanted Tk Wynne MD Work Phone: [facility] Comment on above: Deferred: Patient Re fused NEGATED: Highlighted row has not occurred!01-04-2023 Influenza, Seasonal, Quadrivalent, Adjuvanted Tara Frazier MD Work Phone: [facility] Comment on above: Deferred: Other - Dc d, modified Payers Date Payer Category Payer Self-pay 2021 Medicare supplementa l policy (as second payer) MMO MEDICARE SUPPLEMENT [id number] 2019 Unknown 2019 Unknown MMO MMO MEDICARE SUPPLEMENT [id number] 2019-Present [phone] [address] [place] [address] Indemnity [id number] 2014 Medicare MEDICARE MEDICAR E PART A AND B xxxxxxxxxxx 2014-Present [phone] [place] [address] xxxxxxxxxxx [id number] 2014 Unknown [employer] M [employer] - EXCHANGE xxxxxxxxxxxx 2014-Present [phone] [address] [place] [address] xxxxxxxxxxxx [id number] 2014 Unknown [id number] 2004 Medicare 2004 Medicare MEDICARE MEDICAR E A AND B [id number] 2004-Present [phone] [place] [address] Medicare [id number] 2004 Medicare [id number] 1939 Unknown [id number] 1939 Unknown [id number] 1939 Unknown [id number] 1939 Unknown [id number] Unknown [id number] Unknown [id number] Unknown [id number] Social History Date Type Detail Facility Start: 08-25-2018 End: 03-18-2023 Tobacco smoking status NHIS Never smoker [place], [place] Start: 08-25-2018 End: 12-31-2022 Alcohol intake No [facility] Start: 1940 Sex Assigned At Not on file M [place], [place] Start: 05-26-2019 End: 04-28-2024 Alcohol intake Current non-drinker of alcohol (finding) [facility] Work Phone: Start: 10-08-2020 End: 10-23-2022 Tobacco use and exposure Never used [facility] Start: 09-30-2021 End: 12-31-2022 Exposure to SARS-CoV-2 (event) Not sure [facility] Start: 04-25-2021 History SDOH Alcohol Comment gave up 1995 [facility] Work Phone: Start: 06-16-2021 End: 10-23-2022 Alcohol intake Lifetime non-drinker (finding) [facility] Start: 01-20-2019 End: 03-23-2022 History SDOH Alcohol Frequency 1 [facility] Start: 03-23-2022 History SDOH Alcohol Std Drinks 0 [facility] Start: 03-23-2022 History SDOH IPV Fear 2 S [facility] Start: 03-23-2022 End: 12-31-2022 History of Social function [facility] Within the last year , have you been afraid of your partner or ex-partner? No [facility] How often to you hav e a drink containing alcohol? Never [facility] How many standard drinks containing alcohol do you have on a typical day? Patient does not drink [facility] Within the last year , have you been afraid of your partner or ex-partner? Yes [facility] Start: 03-18-2023 Tobacco smoking stat us PAIS Unknown if ever smoked [facility] Start: 1940 Sex Assigned At Male [facility] Start: 11-14-2021 End: 08-05-2024 Sex Male (finding) [facility] NEGATED: Highlighted rowStart: NINF History of tobacco use Passive smoker [facility] Goals Date Patient Goal Desired Activity /State Functional Status Date Assessment Result Facility 03-22-2023 Functional status Chair [facility] Work Phone: 02-24-2022 Are you deaf, or do you have serious difficulty hearing No 02/24/2022 3:56 PM Dinah Agustin RN No [facility] 02-24-2022 Are you blind, or do you have serious difficulty seeing, even when wearing glasses No 02/24/2022 3:56 PM Dinah Agustin RN No [facility] 02-24-2022 Do you have serious difficulty walking or climbing stairs No 02/24/2022 3:56 PM Dinah Agustin RN No [facility] 02-24-2022 Do you have difficul ty dressing or bathing No 02/24/2022 3:56 PM Dinah Agustin RN No [facility] 02-24-2022 Because of a physica l, mental, or emotional condition, do you have difficulty doing errands alone such as visiting a physician's office or shopping No 02/24/2022 3:56 PM Dinah Agustin RN No [facility] Mental Status Date Assessment Result Facility 03-22-2023 Cognitive function Level Of Cons ciousness Drowsy [facility] Work Phone: 03-21-2023 Cognitive function Appropriate;Cooperativ e [facility] Work Phone: 03-21-2023 Cognitive function Arousable To Voice/Nam e [facility] Work Phone: 02-24-2022 Because of a physica l, mental, or emotional condition, do you have serious difficulty concentrating, remembering, or making decisions No 02/24/2022 3:56 PM JORGE Becerril DinahBELINDA No [facility] Clinical Notes 10-09-2020 to 04-28-2024 Kathy Jacome [...] note were not included. Kathy Jacome, MSN, VARNISH INSPECTOR, AGNP-C 04/28/2024 Urology Office Visit [facility] [address] [facility] [address] [address] PATIENT NAME: Doroteo Gong DATE OF : 1940 REFERRING PROVIDER: No ref. provider found PCP: Roopa Madera MD TODAY'S DATE: 04/28/2024 Visit type: Established patient HPI: Dortoeo is a 83 y.o. male who presents [...] is wheelchair bound. Patient resides at the [facility]. 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 Had schwartz removed since and was voiding. Catheter replaced earlier in 2023 for retention. In a wheelchair for mobility. Cystoscopy next appointment. At [facility]. Catheter/voiding trial this appointment. 01/30/2023: Pau OV [...] or fail to improve. Kathy Jacome, MSN, VARNISH INSPECTOR, AGNP-C [facility] Please note that portions of this chart were dictated using [employer] voice recognition software. It is possible that typos and/or omissions and/or substitutions of words and/or phrases may exist, which may alter the intended meaning of the dictating provider. documented in this encounter [facility] [employer] 04-28-2024 Miscellaneous Notes Addended by: KATHY JACOME on: 04/28/2024 01:57 PM [employer] accepted: Orders documented in this encounter [facility] [place] 04-28-2024 Note Addended by: KATHY JACOME on: 04/28/2024 01:57 PM Modules accepted: Orders [facility] [place] 04-28-2024 Note Addended by: KATHY JACOME on: 04/28/2024 01:57 PM Modules accepted: Orders [facility] [place] 04-18-2024 Telephone encounter Note Dana [facility] [place] Work Phone: 04-18-2024 Miscellaneous Notes Okay Called Micheline back at [facility] ([phone]), this facility has assumed care over the patient after his dc from [place] admission. Schwartz placed 04/04 for retention. Given address and apt date/time. Facility doc declined the void trail until pt has his follow up apt with our office. Name of Caller: [facility] Contact Reason for Appointment: Micheline is asking if the office wants her staff to do a voiding trial prior to pt's appt Office Name: Uro Medication Refills need, if any: NA Medication Name: NA documented in this encounter [facility] 04-17-2024 Telephone encounter Note Called Micheline back at [facility] ([phone]), this facility has assumed care over the patient after his dc from [place] admission. Schwartz placed 04/04 for retention. Given address and apt date/time. Facility doc declined the void trail until pt has his follow up apt with our office. [facility] 04-17-2024 Telephone encounter Note Name of Caller: [facility] Contact Reason for Appointment: Micheline is asking if the office wants her staff to do a voiding trial prior to pt's appt Office Name: Uro Medication Refills need, if any: NA Medication Name: NA [facility] 04-11-2024 Nurse Note Report given to Katty at [facility]. [facility] 04-11-2024 Nurse Note Report given to Katty at [facility]. Via secure chat, repeat urine culture is not needed. documented in this encounter [facility] 04-11-2024 Miscellaneous Notes Patient Choice Patient Name: DOROTEO GONG Date of : 1940 All Providers Sent [facility] Phone: [phone] Address: [address] [place] [address] Discharge med list transmitted to [facility] via Careport per TCC request. 7000 was entered into [facility] for the SNF- Facility is aware Asked by [facility] to set transport to [facility]. The [employer] Vehicle you requested for Doroteo Mora in unit/room [facility] [id number] on 04/11/2024 is scheduled to [...] would like for him to go to [facility] rather than return to [facility]. Referral sent, [facility] is able to accept. Does not need auth, does need 3MN inpatient stay. TCC will continue to follow. Referral placed to [facility] via Careport per TCC request. Await review and response regarding ability to accept. TCC notified. Family Communication Number Called: [phone] Name of Designated Family Complaint Operator: Harshil Murguia nephstevenson I spoke with the individual listed above Family Complaint Operator Updated on the Following: medical updates, confirms Solange is HCPOA, they do not want him to return to , but at me go to [facility] for care. Agrees with DNRCCA-DNI. At facility he had CP, was treated for covid/pna 6 weeks ago, continues with congestion, worried if needs treated for this as well, aware I will update primary team. Asked me to call Solange and provided her number will add to contacts Family Communication Number Called: [phone] Name of Designated Family Complaint Operator: Solange Cousin/HCPOA I spoke with the individual listed above Family Complaint Operator Updated on the Following: medical updates, confirms Solange is HCPOA she will email me this and I told her I would print and place on chart, they do not want him to return to , but at dc go to [facility] for care. Agrees with DNRCCA-DNI. At facility [...] IA completed with pt at BS. From [facility]. Has cane, WW, and handicapped accessible bathroom. Facility assists with ADLs and IADLs. INFORMATION TECHNOLOGY DIRECTOR tasked in Careport to send return referral. Awaiting answer from SNF. TCC will continue to follow. The time of this note does not reflect the actual time patient was seen and assessed but instead the time of this documentation. Referral placed to return back to [facility] via Careport per TCC request. [...] fall risk factors documented in this encounter [facility] 04-11-2024 Note Formatting of this n ote might be different from the original. Patient Choice Patient Name: DOROTEO GONG Date of : 1940 All Providers Sent Referral Name: [facility]. Phone: [phone] Address: [address] [place] [address] [facility] 04-11-2024 Note Formatting of this n ote might be different from the original. Patient Choice Patient Name: DOROTEO GONG Date of : 1940 All Providers Sent Referral Name: [facility]. Phone: [phone] Address: [address] [place] [address] [facility] 04-11-2024 Note Formatting of this n ote might be different from the original. Discharge med list transmitted to [facility] via Careport per TCC request. 7000 was entered into [email or web address] for the [facility]- Facility is aware [facility] 04-11-2024 Note Formatting of this n ote might be different from the original. Discharge med list transmitted to [facility] via Careport per TCC request. 7000 was entered into [facility] for the [facility]- Facility is aware [facility] 04-11-2024 Note Discharge Summary Doroteo Gong : 1940 ADMIT DATE: 04/07/2024 DISCHARGE DATE: 04/12/2024 PRIMARY CARE PHYSICIAN: Roopa Madera VISIT STATUS: Admission CODE STATUS: Prior DISCHARGE DIAGNOSES: Principal Problem: Urinary tract infection without hematuria, site unspecified Active Problems: Moderate malnutrition (CMS/HCC) ([facility]) HOSPITAL COURSE: Doroteo Gong is a 83 y.o. male with past medical history significant for UTIs, nephrolithiasis, GERD, chronic pain, pulmonary hypertension, interstitial lung disease, RICKY, COPD with asthma who presents to the emergency department per EMS with reported history of altered mental status. Pt arrived from [facility], because he was pressing the call [...] go home with Schwartz catheter upon discharge AZURE DEVELOPER cleared the pt for Soft and bite-sized solids and Thin liquids and meds crushed in puree with precautions. On 04/11, the pt completed the Ceftriaxone course and was deemed ready for DC. SIGNIFICANT DIAGNOSTIC STUDIES: CT A\P CONSULTANTS: Urology Pal Med ([facility]) RECOMMENDED NEXT STEPS: Follow up with [...] when to take this ergocalciferol 1.25 MG (59892 UT) capsule Commonly known as: Vitamin D-2 [...] 0.5 % ophthalmic solution ergocalciferol 1.25 MG (72773 UT) capsule DIET: No diet orders on file ACTIVITY: Up with assist COMPLEXITY OF FOLLOW UP: [] Moderate Complexity: follow up within 7-14 calendar days (59387) [] Severe Complexity: follow up within 7 calendar days (67228) FOLLOW UP TESTING, PENDING RESULTS OR REFERRALS AT TRANSITIONAL CARE VISIT: [] Yes [] No PENDING STUDIES: None DISPOSITION: Skilled Facility FACILITY/HOME CARE AGENCY NAME: [facility] Follow up with Roopa Madera MD [id number] [place] [phone] INS (more content not included)... [facility] 04-11-2024 History of Present illness Narrative Images from the original note were not included. OCCUPATIONAL THERAPY [facility] Treatment Note Name/MRN: Doroteo Gong ([id number]) Date of : 1940 Age: 83 y.o. Room/Bed: B4461/B4461 A Visit #: 1 out of 7 visits Discharge Recommendation: Fdc Facility Equipment Needed: No Prior Level of [...] not included. Speech-Language Pathology SPEECH LANGUAGE PATHOLOGY [facility] Patient Name: Doroteo Gong Evaluation Date: 04/11/2024 Date of : 1940 Admission Date: 04/07/2024 4:42 AM Age: 83 y.o. Room[facility]Bed: [facility] A Subjective Patient alert and cooperative. Seen [...] Ensure Plus 04/09/24 1226 04/09/24 1227 Supplement:Dinner; [facility] Ensure Plus Until discontinued Question Answer Comment Frequency Dinner Select supplement: [facility] Ensure Plus 04/09/24 1226 04/09/24 1150 Adult [...] Start: 04/09/24 Expected End: 04/23/24 Therapy Time AZURE DEVELOPER Individual Minutes Time In: 734 Time Out: 0755 Minutes: 20 JUICE Fowler Images from the original note were not included. Speech-Language Pathology SPEECH LANGUAGE PATHOLOGY [facility] Note Patient Name: Doroteo Gong Evaluation Date: 04/10/2024 Date of : 1940 Admission Date: 04/07/2024 4:42 AM Age: 83 y.o. Room/Bed: [facility] A Subjective Patient alert and not cooperative. [...] Ensure Plus 04/09/24 1226 04/09/24 1227 Supplement:Dinner; [facility] Ensure Plus Until discontinued Question Answer Comment Frequency Dinner Select supplement: [facility] Ensure Plus 04/09/24 1226 04/09/24 1150 Adult [...] trials if dentures are available. Continue acute AZURE DEVELOPER therapy per initial plan of care and [...] Start: 04/09/24 Expected End: 04/23/24 Therapy Time AZURE DEVELOPER Individual Minutes Time In: 1410 Time Out: 1419 Minutes: 9 JUICE Mckeon Hospitalist Progress Note 04/10/2024 [phone]: Please page me ([phone]) for patient care issues. [phone]: Please page [facility] Hospitalist for any issues. Subjective: Admit Date: 04/07/2024 PCP: Roopa Madera MD Room#: B4-038/B4-016 Jak Gong is a 83 y.o. 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 OT skilled the pt for SNF AZURE DEVELOPER cleared the pt for Soft and bite-sized [...] not want him to go back to [facility]. Instead they would like him to go to [facility], for which he needs 3 midnight stay [...] MD Division of Hospitalist Medicine Inpatient Medical Services/[facility] \ Images from the original note were not included. [facility] Progress Note Doroteo Gong [...] topically daily. ergocalciferol (Vitamin D-2) 1.25 MG (41918 UT) capsule Take 1.25 mg by mouth [...] pat dry, apply ET mix and leave OFFICE SERVICES SPECIALIST TID and PRN -Turn and reposition [id number] -Incontinence checks [id number] Nutritional support Wound care to follow Recommend to follow up at [facility] wound care center after hospital discharge. [...] glycol, psyllium Debility - has resided at [facility] since March 2023--[facility] Chronic back pain - prn tramadol with relief, would not adjust this medication as helpful Reduced appetite - tells me better since he is not at the [facility] - albumin marginally low at 2.6 - per documentation eating half of meals Palliative Care Encounter -DNRCCA-DNI - filled out [place] DNR form and placed on chart, also emailed copy to SIMBA Rodriguez, she had emailed me SIMBA paperwork, printed and placed on paper chart today - consulted for pain and goals of care - goals clear, without symptoms will sign off at this time - call to Solange at [phone], provided updates, she received and printed the dnr form and has it with all her paperwork, aware upon dc will go to [facility], thankful for call and care Doroteo Gong has been seen in consultation by [facility] during their admission to [facility]. They currently have no uncontrolled symptoms and [...] is a 83 y.o. male living at [facility] for 24 hour care and supervision, PMHx includes: chronic pain, GERD, COPD, HLD, kidney stones, BPH, RICKY, interstitial lung disease, HTN, frequent UTI, prior chronic schwartz removed in February, had been recommended for cystoscopy but refused. Brought to [facility] with abdominal pain. CT A/P [...] consult. Since seen by palliative care at [facility] we are consulted for pain and goals of care. Goals of care:Continue Current Management Functional Assessment: PPS: 40% Advance Directives: DNR-CCA Surrogate: SIMBA Prognosis: uncertain at this time Spiritual assessment: No spiritual distress identified Bereavement and grief: Grief Issues Not Identified Review of Systems ROS: See palliative care ROS/ESAS below; All other systems were reviewed and are negative. Pemberton Symptom Assessment Score Pemberton Score Pain Score 2 Tiredness Score 0 [...] by: patient and provider. 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 No Hospitalist Progress Note 04/09/2024 [phone]: Please page mt ([phone]) for patient care issues. [phone]: Please page [facility] Hospitalist for any issues. Subjective: Admit Date: 04/07/2024 PCP: Roopa Madera MD Room#: H7-181/P8-461 Jak Gong is a 83 y.o. 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 OT skilled the pt for SNF AZURE DEVELOPER cleared the pt for Soft and bite-sized [...] not want him to go back to [facility]. Instead they would like him to go to [facility], for which he needs 3 midnight stay [...] MD Division of Hospitalist Medicine Inpatient Medical Services/[facility] \ Nutrition Assessment Type and Reason for Visit: Initial, Wound Nutrition Recommendations/Plan: Continue Soft and Bite Sized diet with meds crushed in Puree as recommended by AZURE DEVELOPER- Assist in room service participation, and encourage [...] & deltoids) Fluid Accumulation: Unable to assess Stock Clerk Strength: Not Performed Nutrition Assessment: 83 year old man with PMHx: UTIs, nephrolithiasis, GERD, chronic pain, HTN, interstitial lung disease, RICKY, COPD with asthma. Presented to [facility] ED via EMS from SNF with [...] scale weight obtained: 138.2#, unsure of UBW. AZURE DEVELOPER recommending Soft and Bite sized diet. Estimated Daily Nutrient Needs: Energy Requirements Based On: Kcal/kg Weight Used for Energy Requirements: [place] Weight for Energy Calculation (kg): 48 kg Total Energy Requirements (kcals/day): 1502-7375 (25-30 kcal/kg IBW) Weight Used for Protein Requirements: [place] Weight in Kg Used for Protein Requirements: [...] EMR 03/18/23) % Weight Change (Calculated): -13.1 [place] Body Weight (lbs) (Calculated): 106 lbs [place] Body Weight (Kg) (Calculated): 48 kg % [place] Body Weight (Calculated): 130.4 % BMI (kg/m2) [...] Nutrition Supplement Teri Mar RDN, LDN, Contact: *[phone] Images from the original note were not included. Speech-Language Pathology SPEECH LANGUAGE PATHOLOGY [facility] Bedside Swallow Evaluation Patient Name: Doroteo Gong Evaluation Date: 04/09/2024 Date of : 1940 Admission Date: 04/07/2024 4:42 AM Age: 83 y.o. Room[facility]Bed: [facility] IMPRESSION: S/s oropharyngeal dysphagia. No overt [...] mouth. Pt would benefit from skilled acute AZURE DEVELOPER services to address diet tolerance and to [...] be evaluated. Dysphagia History: No history of AZURE DEVELOPER services in EMR with retrospective chart review [...] altered mental status. He arrived here from [facility], because he was pressing the call [...] Start: 04/09/24 Expected End: 04/23/24 Therapy Time AZURE DEVELOPER Individual Minutes Time In: 1104 Time Out: 1116 Minutes: 12 Aleisha Zurita CCC-AZURE DEVELOPER Images from the original note were not included. OCCUPATIONAL THERAPY [facility] Initial Evaluation Name/MRN: Doroteo Gong ([id number]) Evaluation Date: 04/09/2024 Date of : 1940 Admission Date: 04/07/2024 4:42 AM Age: 83 y.o. Room/Bed: [facility] A Discharge Recommendation: Fdc Facility Equipment Needed: No Assessment IMPRESSION: Pt [...] to Person Social/Functional History Patient admitted from [facility] . Assistive Equipment: front wheeled walker Prior [...] LUE 3+/5 within observed range. 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 Goals and/or treatment plan was established in collaboration with patient/family/other representatives. Hospitalist Progress Note 04/08/[id number]: Please page me ([phone]) for patient care issues. [phone]: Please page [facility] Hospitalist for any issues. Subjective: Admit Date: [...] not want him to go back to [facility]. Instead they would like him to go to [facility], for which he needs 3 midnight stay [...] MD Division of Hospitalist Medicine Inpatient Medical Services/[facility] \ Images from the original note were not included. PHYSICAL THERAPY [facility] Initial Evaluation Name/MRN: Doroteo Gong ([id number]) Evaluation Date: 04/08/2024 Date of : 1940 [...] Hearing: normal Social/Functional History Patient admitted from [facility] . Assistive Equipment: front wheeled walker Prior [...] of Care supervision is transferred to a [facility] Physical Therapist. Goals and/or treatment plan was established in collaboration with patient/family/other representatives. documented in this encounter [facility] 04-11-2024 Note Formatting of this n ote might be different from the original. Asked by [facility] to set transport to [facility]. The BLS Vehicle you requested for Doroteo Mora in unit/room [place] [id number] on 04/11/2024 is scheduled to arrive at 1:30pm EST! Jeff Kahn is handling this ride and you can contact them at . Pt, Alisha Narvaez, nurse, unit sec, TCC, and facility informed of time. [facility] 04-11-2024 Note Formatting of this n ote might be different from the original. Asked by [facility] to set transport to [facility]. The BLS Vehicle you requested for Doroteo Mora in unit/room [place] [id number] on 04/11/2024 is scheduled to arrive at 1:30pm EST! Jeff Kahn is handling this ride and you can contact them at . Pt, Alisha Narvaez, nurse, unit sec, TCC, and facility informed of time. [facility] 04-11-2024 Plan of care note Problem: Knowledge [...] Progressing Goal: Promote nutritional intake Outcome: Progressing [facility] 04-10-2024 Plan of care note Problem: [...] Progressing Goal: Promote nutritional intake Outcome: Progressing [facility] 04-10-2024 Nurse Note Via secure chat, repeat urine culture is not needed. [facility] 04-10-2024 Hospital Discharge instructions Janee Roland [...] Unit/Room#: B4-461/B4-461 A Discharging Unit Phone Number: [phone] Emergency Contact: Extended Emergency Contact Information Primary [...] assistance Toileting Total assistance Feeding Minimal assistance Wood Engraver Minimal assistance Med Delivery yes Wound Care Documentation and Therapy: Wound/Incision 04/07/24 Pressure Injury Buttock Medial (Active) Site Assessment Ewa Gentry;Red 04/09/24 0800 Orly-Wound Assessment Intact 04/09/24 0800 [...] Status Date: Discharging to Facility/ Agency Name: [facility] Address: [address] Fax: Dialysis Facility (if applicable) Name: Address: Dialysis Schedule: Phone: Fax: Head Sulfide Operator/Puff Iron Operator signature: ICIAN SECTION Name: Doroteo Gong Prognosis: good Condition at Discharge: stable Rehab Potential (if transferring to Rehab): good Recommended Labs or Other Treatments After Discharge: CMP CBC The individual is being admitted to a nursing facility directly from an [facility] or a unit of a [facility] that is not operated by or licensed by [facility] under section 5119.14 or 5160-3-15.1 5 The individual requires the level of services provided by a nursing facility for the condition for which he or she was treated in the hospital and, Physician Certification: I certify the above information and transfer of Doroteo Gong is necessary for the continuing treatment of the diagnosis listed and that he requires long-term facility for less than 30 days. Update Admission H&P: No change in H&P PHYSICIAN SIGNATURE: documented in this encounter [facility] 04-10-2024 Note Hospitalist Progress Note 04/10/2024 [phone]: Please page me ([phone]) for patient care issues. [phone]: Please page [facility] night Hospitalist for any issues. Subjective: Admit Date: 04/07/2024 PCP: Roopa Madera MD Room#: L4-461/M8-460 Jak Gong is a 83 y.o. 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 OT skilled the pt for SNF AZURE DEVELOPER cleared the pt for Soft and bite-sized [...] not want him to go back to [facility]. Instead they would like him to go to [facility], for which he needs 3 midnight stay -am labs, replace lytes prn -increase activity Diet Adult diet Dysphagia - Soft and Bite Sized DVT Prophylaxis [x] Lovenox, [] Heparin, [] SCDs, [] Ambulation [] Already on Anticoagulation GI Prophylaxis [x] PPI, [] H2 Nick, [] Carafate, [] Diet/Tube Feeds Code Status DNR-CCA Disposition Patient require (more content not included)... [facility] 04-10-2024 Note [facility] Note Doroteo Gong [...] topically daily. ergocalciferol (Vitamin D-2) 1.25 MG (07253 UT) capsule Take 1.25 mg by mouth [...] hours. omeprazole (Veronique (more content not included)... [facility] 04-10-2024 Note Palliative Care Prog ress [...] glycol, psyllium Debility - has resided at [facility] since March 2023--[facility] Chronic back pain - prn tramadol with relief, would not adjust this medication as helpful Reduced appetite - tells me better since he is not at the [facility] - albumin marginally low at 2.6 - per documentation eating half of meals Palliative Care Encounter -DNRCCA-DNI - filled out [place] DNR form and placed on chart, also emailed copy to SIMBA Rodriguez, she had emailed me SIMBA paperwork, printed and placed on paper chart today - consulted for pain and goals of care - goals clear, without symptoms will sign off at this time - call to Solange at [phone], provided updates, she received and printed the dnr form and has it with all her paperwork, aware upon dc will go [facility], thankful for call and care Doroteo K Beltran has been seen in consultation by [facility] during their admission to [facility]. They currently have no uncontrolled symptoms and [...] is a 83 y.o. male living at [facility] for 24 hour care [...] consult. Since seen by palliative care at [facility] we are consulted for pain and goals of care. Goals of care:Continue Current Management Functional Assessment: PPS: 40% Advance Directives: DNR-CCA Surrogate: HCPOA Prognosis: uncertain at this time Spiritual assessment: No spiritual distress identified Bereavement and grief: Grief Issues Not Identified Review of Systems ROS: See palliative care ROS/ESAS below; All other systems were reviewed and are negative. Pemberton Symptom Assessment Score Pemberton Score Pain Score 2 Tiredness Score 0 [...] Assessed by: patient and provider. Social history: [place] status: yes- (more content not included)... [facility] 04-09-2024 Note Hospitalist Progress Note 04/09/2024 [phone]: Please page me ([phone]) for patient care issues. [phone]: Please page [facility] Hospitalist for any issues. Subjective: Admit Date: 04/07/2024 PCP: Roopa Madera MD Room#: H3-429/G5-727 Jak Gong is a 83 y.o. 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 OT skilled the pt for SNF AZURE DEVELOPER cleared the pt for Soft and bite-sized [...] not want him to go back to [facility]. Instead they would like him to go to [facility], for which he needs 3 midnight stay [...] face to fa (more content not included)... [facility] 04-09-2024 Note OCCUPATIONAL THERAPY [facility] Initial Evaluation Name/MRN: Doroteo Gong ([id number]) Evaluation Date: 04/09/2024 Date of : 1940 Admission Date: 04/07/2024 4:42 AM Age: 83 y.o. Room/Bed: B4461/B4461 A Discharge Recommendation: Fdc Facility Equipment Needed: No Assessment IMPRESSION: Pt [...] to Person Social/Functional History Patient admitted from [facility] . Assistive Equipment: front wheeled walker Prior [...] sided lean during (more content not included)... [facility] 04-08-2024 Note Formatting of this n ote might be different from the original. Received a message from Rene VACA that pt's family would like for him to go to [facility] rather than return to [facility]. Referral sent, [facility] is able to accept. Does not need auth, does need 3MN inpatient stay. TCC will continue to follow. [facility] 04-08-2024 Note Formatting of this n ote might be different from the original. Received a message from Rene VACA that pt's family would like for him to go to [facility] rather than return to [facility]. Referral sent, [facility] is able to accept. Does not need auth, does need 3MN inpatient stay. TCC will continue to follow. [facility] 04-08-2024 Note Hospitalist Progress Note 04/08/2024 [phone]: Please page mt ([phone]) for patient care issues. [phone]: Please page [facility] Hospitalist for any issues. Subjective: Admit Date: 04/07/2024 PCP: Roopa Madera MD [facility] Jak Gong is a 83 y.o. male [...] not want him to go back to [facility]. Instead they would like him to go to [facility], for which he needs 3 midnight stay [...] Directive: DNR-CCA Discha (more content not included)... [facility] 04-08-2024 Note Formatting of this n ote might be different from the original. Referral placed to [facility] via [facility] per [facility] request. Await review and response regarding ability to accept. TCC notified. [facility] 04-08-2024 Note Formatting of this n ote might be different from the original. Referral placed to [facility] via [facility]port per TCC request. Await review and response regarding ability to accept. TCC notified. [facility] 04-08-2024 Note Referral placed to [facility] via Careport per TCC request. Await review and response regarding ability to accept. TCC notified. [facility] 04-08-2024 Note PHYSICAL THERAPY [facility] Initial Evaluation Name/MRN: Doroteo Gong ([id number]) Evaluation Date: 04/08/2024 Date of : 1940 Admission Date: 04/07/2024 4:42 AM Age: 83 y.o. Room/Bed: [facility] A Discharge Recommendation: ECF with [...] Hearing: normal Social/Functional History Patient admitted from [facility] . Assistive Equipment: front wheeled walker Prior [...] sitting tolerance Ambulation (more content not included)... [facility] 04-08-2024 Note Formatting of this n ote might be different from the original. Family Communication Number Called: [phone] Name of Designated Family Complaint Operator: Harshil Murguia nephew I spoke with the individual listed above Family Complaint Operator Updated on the Following: medical updates, confirms Solange is HCPOA, they do not want him to return to , but at dc go to [facility] for care. Agrees with DNRCCA-DNI. At facility he had CP, was treated for covid/pna 6 weeks ago, continues with congestion, worried if needs treated for this as well, aware I will update primary team. Asked me to call Solange and provided her number will add to contacts Family Communication Number Called: [phone] Name of Designated Family Complaint Operator: Solange Cousin/HCPOA I spoke with the individual listed above Family Complaint Operator Updated on the Following: medical updates, confirms Solange is HCPOA she will email me this and I told her I would print and place on chart, they do not want him to return to [facility], but at dc go to [facility] for care. Agrees with DNRCCA-DNI. At facility he had CP, was treated for covid/pna 6 weeks ago, continues with congestion, worried if needs treated for this as well, aware I will update primary team. He has had diarrhea for weeks, had only been taking in ensure at facility it sounds like per Doroteo. Thankful for call and care [facility] 04-08-2024 Note Formatting of this n ote might be different from the original. Family Communication Number Called: [phone] Name of Designated Family Complaint Operator: Harshil Murguia nephew I spoke with the individual listed above Family Complaint Operator Updated on the Following: medical updates, confirms Solange is HCPOA, they do not want him to return to , but at me go to [facility] for care. Agrees with DNRCCA-DNI. At facility he had CP, was treated for covid/pna 6 weeks ago, continues with congestion, worried if needs treated for this as well, aware I will update primary team. Asked me to call Solange and provided her number will add to contacts Family Communication Number Called: [phone] Name of Designated Family Complaint Operator: Solange Cousin/HCPOA I spoke with the individual listed above Family Complaint Operator Updated on the Following: medical updates, confirms Solange is HCPOA she will email me this and I told her I would print and place on chart, they do not want him to return to [facility], but at dc go to [facility] for care. Agrees with DNRCCA-DNI. At facility he had CP, was treated for covid/pna 6 weeks ago, continues with congestion, worried if needs treated for this as well, aware I will update primary team. He has had diarrhea for weeks, had only been taking in ensure at facility it sounds like per Doroteo. Thankful for call and care [facility] 04-08-2024 Note Family Communication Number Called: [phone] Name of Designated Family Complaint Operator: Harshil Murguia nephew I spoke with the individual listed above Family Complaint Operator Updated on the Following: medical updates, confirms Solange is HCPOA, they do not want him to return to , but at me go to [facility] for care. Agrees with DNRCCA-DNI. At facility he had CP, was treated for covid/pna 6 weeks ago, continues with congestion, worried if needs treated for this as well, aware I will update primary team. Asked me to call Solange and provided her number will add to contacts Family Communication Number Called: [phone] Name of Designated Family Complaint Operator: Solange Cousin/HCPOA I spoke with the individual listed above Family Complaint Operator Updated on the Following: medical updates, confirms Solange is HCPOA she will email me this and I told her I would print and place on chart, they do not want him to return to , [facility]. Agrees with DNRCCA-DNI. At facility he had CP, was treated for covid/pna 6 weeks ago, continues with congestion, worried if needs treated for this as well, aware I will update primary team. He has had diarrhea for weeks, had only been taking in ensure at facility it sounds like per Doroteo. Thankful for call and care [facility] 04-08-2024 Note Formatting of this n ote might be different from the original. IA completed with pt at BS. From [facility]/ECF. Has cane, WW, and handicapped accessible bathroom. Facility assists with ADLs and IADLs. INFORMATION TECHNOLOGY DIRECTOR tasked in Careport to send return referral. Awaiting answer from SNF. TCC will continue to follow. The time of this note does not reflect the actual time patient was seen and assessed but instead the time of this documentation. [facility] 04-08-2024 Note Formatting of this n ote might be different from the original. IA completed with pt at . From [facility]. Has cane, WW, and handicapped accessible bathroom. Facility assists with ADLs and IADLs. INFORMATION TECHNOLOGY DIRECTOR tasked in Careport to send return referral. Awaiting answer from SNF. TCC will continue to follow. The time of this note does not reflect the actual time patient was seen and assessed but instead the time of this documentation. [facility] 04-08-2024 Note Formatting of this n ote might be different from the original. Referral placed to return back to [facility] via Careport per TCC request. Await review and response regarding ability to accept. TCC notified. [facility] 04-08-2024 Note Formatting of this n ote might be different from the original. Referral placed to return back to [facility] via [facility]port per TCC request. Await review and response regarding ability to accept. TCC notified. [facility] 04-08-2024 Note Referral placed to r eturn back to [facility] via Careport per TCC request. Await review and response regarding ability to accept. TCC notified. [facility] 04-08-2024 Telephone encounter Note PT phone # doesn't work. [phone] Pt admitted to [facility] currently. Called pt at hospital in his room. Got new phone # [phone] Scheduled for follow up 04/28/24 @ 130pm with Emory Jacome Sending letter with appt information to patient [facility] 04-08-2024 Miscellaneous Notes PT phone # doesn't work. [phone] Pt admitted to [facility] currently. Called pt at hospital in his room. Got new phone # [phone] Scheduled for follow up 04/28/24 @ 130pm with Emory Jacome Sending letter with appt information to patient Patient was seen on consultation at [facility] on 04/08/2024 He is known to the practice, last seen by Dr. Ordonez approximately 1 month ago At that time catheter had been removed He presented with incomplete emptying, acute cystitis, hydronephrosis He will be discharged home with a catheter Please schedule follow-up visit with KEREN or Dr. Ordonez, routine follow-up can be in several weeks documented in this encounter [facility] 04-08-2024 Consult note Associated Order (s): IP [...] glycol, psyllium Debility - has resided at [facility] since March 2023 Chronic back pain - [...] DNRCCA-DNI, okay for ICU means here at [facility], agrees with this. Will place order in epic. Asked if he and Harshil talked about that, tells me Harshil doesn't want to talk about that aware I will call him today, thankful - only family is nephew Harshil and cousin Solange - no family at bedside, call to Harshil Murguia at [phone], did not answer times 2, voice mail box is full and cannot accept any more messages - will continue to follow for ongoing monitoring of progression of Anorexia - will continue to evaluate test results related to uti , medication effectiveness for Anorexia, response to treatment of uti -follow peripherally until get in touch with nephew, known to our service at [facility], upon dc if returns there our team can follow there as well, no true need to follow here once I talk with family Total of 60 minutes spent on this encounter including Chart review, Patient visit and exam, Documentation in EHR, Care coordination, Communicating with primary attending or other consultants, Electronic order checker of medications, tests or procedures, and Counseling [...] is a 83 y.o. male living at [facility] for 24 hour care [...] consult. Since seen by palliative care at [facility] we are consulted for [...] other systems were reviewed and are negative. Pemberton Symptom Assessment Score Pemberton Score Pain Score 2 Tiredness Score 0 [...] by: patient and provider. 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 Will place order in [employer]. Asked if he and Harshil talked about that, tells me Harshil doesn't want to talk about that aware I will call him today, thankful - only family is nephew Harshil and cousin Solange - no family at bedside, call to Harshil Murguia at [phone], did not answer times 2, voice mail box is full and cannot accept any more messages - will continue to follow for ongoing monitoring of progression of Anorexia - will continue to evaluate test results related to uti , medication effectiveness for Anorexia, response to treatment of uti -follow peripherally until get in touch with nephew, known to our service at [facility], upon dc if returns there our team can follow there as well, no true need to follow here once I talk with family Total of 60 minutes spent on this encounter including Chart review, Patient visit and exam, Documentation in EHR, Care coordination, Communicating with primary attending or other consultants, Electronic order checker of medications, tests or procedures, and Counseling and educating patient/family/caregiver. Discharge planning: Ready for discharge from Palliative Care perspective, outpatient/home/ECF follow-up arranged Patient meets criteria for general inpatient hospice care including the following: N/A - Palliative Care Patient Referrals to: known to [facility] palliative care Discussed patient and the plan [...] is a 83 y.o. male living at [facility] for 24 hour care [...] consult. Since seen by palliative care at [facility] we are consulted for [...] other systems were reviewed and are negative. Pemberton Symptom Assessment Score Pemberton Score Pain Score 2 Tiredness Score 0 [...] by: patient and provider. 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 documented in this encounter [facility] 04-08-2024 Note Patient was seen on consultation at [facility] on 04/08/2024 He is known to the practice, last seen by Dr. Ordonez approximately 1 month ago At that time catheter had been removed He presented with incomplete emptying, acute cystitis, hydronephrosis He will be discharged home with a catheter Please schedule follow-up visit with KEREN or Dr. Ordonez, routine follow-up can be in several weeks [facility] 04-08-2024 Telephone encounter Note Patient was seen on consultation at [facility] on 04/08/2024 He is known to the practice, last seen by Dr. Ordonez approximately 1 month ago At that time catheter had been removed He presented with incomplete emptying, acute cystitis, hydronephrosis He will be discharged home with a catheter Please schedule follow-up visit with KEREN or Dr. Ordonez, routine follow-up can be in several weeks [facility] 04-08-2024 Consult note Associated Order (s): IP CONSULT TO UROLOGY Images from the original note were not included. Yenifer Dc DO 04/08/2024 at 9:22 AM [facility] Urology Inpatient Consultation PATIENT NAME: [...] 0.4 mg, IntraVENous, q5 min PRN, Ann-Marie Rodriguze MD ondansetron ODT (Zofran-ODT) disintegrating tablet 4 [...] pelvis. The right ureter is not dilated. [employer] Work Phone: 04-08-2024 Plan of care note Problem: Knowledge Deficit Goal: Patient/family/caregiver demonstrates understanding of disease process, treatment plan, medications, and discharge instructions Outcome: Progressing Problem: Potential for Compromised Skin Integrity Goal: Skin Integrity is Maintained or Improved Outcome: Progressing [facility] 04-07-2024 Plan of care note Problem: Pain [...] caregiver noted to have fall risk factors [facility] [place] 04-07-2024 History and physical note Attending History and Physical Admit Date: 04/07/2024 PCP: Roopa Madera MD CHIEF COMPLAINT: Abdominal pain Reason for Admission: Hydronephrosis History Obtained From: patient HISTORY OF PRESENT ILLNESS: Doorteo is a 83 y.o. male with past medical history below who presents with chief complaint listed above. Doroteo Gong is a 83 y.o. male with past medical history significant for UTIs, nephrolithiasis, GERD, chronic pain, pulmonary hypertension, interstitial lung disease, RICKY, COPD with asthma who presents to the emergency department per EMS with reported history of altered mental status. He arrived here from [facility], because he was pressing the call [...] Decision Making: -83-year-old male admitted from a group home with history of altered mental state but [...] does follow-up with palliative care in the group home so would get a palliative consult Discussed [...] - DO NOT do CPR, intubation] [_] [DNR-LAND SURVEYOR - Comfort care only] [_] DNR form [...] and/or family/surrogate. Ann-Marie Rodriguez MD Acute care [facility] 04/07/2024, 5:45 PM [facility] 04-07-2024 History and physical note Attending [...] altered mental status. He arrived here from [facility], because he was pressing the call [...] Decision Making: -83-year-old male admitted from a group home with history of altered mental state but [...] does follow-up with palliative care in the group home so would get a palliative consult Discussed [...] - DO NOT do CPR, intubation] [_] [DNR-LAND SURVEYOR - Comfort care only] [_] DNR form [...] and/or family/surrogate. Ann-Marie Rodriguez MD Acute care [facility] 04/07/2024, 5:45 PM documented in this encounter [facility] 04-07-2024 Note Attending History an d Physical [...] altered mental status. He arrived here from [facility], because he was pressing the call [...] 50 MCG ta (more content not included)... [facility] 04-07-2024 Emergency department Note For this RN pt was able to provide name, date, knows he is at [facility], and states date is Apr 08. [facility] 04-07-2024 Emergency department Note For this RN pt was able to provide name, date, knows he is at [facility], and states date is Apr 08. Pt with scant amount liquid emesis, physician notified and will order Zofran IV. Second attempt to call report to [facility] 1E, no answer. Francia TREVINO received call from [facility] stating they had entered an incorrect ETA of 0915 into [facility] and will not be here until 1015. Attempted to call report to [facility] 1E, was requested to call back in 5 min as the RN is speaking with the puttying and calking supervisor. When I was drawing pt blood [...] Culture. Procedure Abnormality Status --------- ------ Complete Urinalysis[[id number]] Abnormal Final result Please view results for [...] with IV contrast. Discussed pelvic XR with resident in diagnostic radiology given shortened left leg- will scan through the pelvis completely on CT. Per review of records from group home, patient has been on Macrobid for the [...] Emergency Medicine Provider Marybeth Glaser DO 04/07/24 [id number] Patient endorsed to me pending results of CT abdomen pelvis, that were concerning for obstructive uropathy, likely secondary to prostate enlargement, unable to exclude malignancy. Mild distal left hydroureter. Discussion had with the patient, and he has requested to be admitted at [facility]. Patient care discussed with Dr. Enrique, hospitalist at [facility], who has agreed to accept the patient for admission. Donald Benitez MD 04/07/24 0753 Pt. Arrived to ED via EMS from [facility]. The facility reported that patient has had a mental status change and showing increased agitation with staff. Pt. A&O x 4 upon assessment. Pt. Currently compliant, cooperative and calm upon arrival. documented in this encounter [facility] 04-07-2024 Emergency department Note Pt with scant amount liquid emesis, physician notified and will order Zofran IV. [facility] 04-07-2024 Emergency department Note Second attempt to call report to [facility] 1E, no answer. [facility] 04-07-2024 Emergency department Note Francia TREVINO received call from [facility] stating they had entered an incorrect ETA of 0915 into [facility] and will not be here until 1015. [facility] 04-07-2024 Emergency department Note Attempted to call report to [facility] [facility], was requested to call back in 5 min as the RN is speaking with the puttying and calking supervisor. [facility] 04-07-2024 Emergency department Note When I was drawing pt blood I noticed that patient needed to be changed. When I removed blanket prior to cleaning patient, I noticed pt left leg was shortened and rotated. Pt denies falling. Pt was not moving leg and was unable to give explanation. was advised of findings. [facility] 04-07-2024 Emergency department Triage note Pt. Arrived to ED via EMS from [facility]. The facility reported that patient has had a mental status change and showing increased agitation with staff. Pt. A&O x 4 upon assessment. Pt. Currently compliant, cooperative and calm upon arrival. [facility] 04-07-2024 Physician Emergency department Note EMERGENCY [...] Response: Oriented Best Motor Response: Follows commands [place] Coma Scale Score: 15 PHYSICAL EXAM ED [...] Culture. Procedure Abnormality Status --------- ------ Complete Urinalysis[[id number]] Abnormal Final result Please view results for [...] with IV contrast. Discussed pelvic XR with resident in diagnostic radiology given shortened left leg- will scan through the pelvis completely on CT. Per review of records from group home, patient has been on Macrobid for the [...] Emergency Medicine Provider Marybeth Glaser DO 04/07/24 1795 [facility] 04-07-2024 Physician Emergency department Note Patient endorsed to me pending results of CT abdomen pelvis, that were concerning for obstructive uropathy, likely secondary to prostate enlargement, unable to exclude malignancy. Mild distal left hydroureter. Discussion had with the patient, and he has requested to be admitted at [place]. Patient care discussed with Dr. Enrique, hospitalist at [facility], who has agreed to accept the patient for admission. Donald Benitez MD 04/07/24 0753 [facility] 02-27-2024 History of Present illness Narrative Images from the original note were not included. Kathy Ordonez MD 02/27/2024 at 11:23 AM Office follow up PATIENT NAME: Doroteo Gong DATE OF : 1940 TODAY'S DATE: 02/27/2024 CHIEF COMPLAINT: Chief Complaint Patient presents with Benign Prostatic Hypertrophy Chronic indwelling catheter Changes performed by [facility] Subjective: Mr. Gong is a 83 y.o. [...] mg) by mouth daily. 01/30/23 Kimberley Mai, VARNISH INSPECTOR - MEDICAL BILLING ASSOCIATE atorvastatin (Lipitor) 10 MG tablet Take 10 [...] mg) by mouth daily. 01/30/23 Kimberley Mai, VARNISH INSPECTOR - MEDICAL BILLING ASSOCIATE fluticasone (Flovent) 110 MCG/ACT inhaler Inhale 2 [...] irregularity [facility], I am uncertain [...] then [facility] We discussed the bladder wall thickening on renal US last year. Given his age and mobility limits, he declines cystoscopy for surveillance Alfuzosin and proscar for bph No follow-ups on file. Kathy Ordonez MD 02/27/24 11:23 AM documented in this encounter [facility] 12-27-2023 History of Present illness Narrative Images from the original note were not included. [facility] Site of Care: [place] [place] [...] reports less anxiety since he is now [employer]cher [employer] living UTI Remains on anbx therapy Schwartz [...] other ROS are negative except as noted. Pemberton Symptom Assessment Score Pemberton Score Pain Score 0 Tiredness Score 3 Nausea Score 0 Depression Score 0 Anxiety Score 0 Drowsiness Score 0 Anorexia Score (0= eating well,10= not eating) 2 Wellbeing Score (10= worst sense of well-being) 2 Constipation 0 Dyspnea Score (0= no shortness of breath) 2 Assessed By: patient Goals of care Goals of care: Improve or Maintain Function/Quality of Life, Preserve Milligan/Autonomy/Control, and Continue Current Management Code status: full code Advance directives: Health Care Proxy, Living Will Surrogate: Extended Family Prognosis: unknown Spiritual assessment: No spiritual distress identified Bereavement and grief: Grief Issues Identified Social history: Marital status: single Children: none Living status: group home Advance Care Planning: The patient has capacity to make healthcare and advanced care planning decisions with the help of nephew The patient's identified surrogate decision maker is Extended Family. Discussion participants: pt and provider Advance Care Planning Documents: Healthcare Power of Hot Plate Press Operator: Yes Financial Power of Hot Plate Press Operator: Yes Living Will: To Be Determined [...] hospice appropriate? No documented in this encounter [facility] 08-30-2023 History of Present illness Narrative Images from the original note were not included. [facility] Site of Care: [facility] Chief Complaint: Doroteo [...] above. Follow-up: none documented in this encounter [facility] 08-10-2023 Telephone encounter Note If patient calls back let him know I tried to call 3 times. Each time got the answering machine but the answer machine is full. [facility] 08-10-2023 Miscellaneous Notes If patient calls back [...] Nguyen Senior CMA documented in this encounter [facility] 08-10-2023 Telephone encounter Note Called patient back at 11:15 AM. Got answering machine. Voicemail full. Will attempt to call back later [facility] 08-10-2023 Telephone encounter Note Pt called asking if he could talk to you regard hip and knee surgery. Wants to know if you could refer him to someone else. Nguyen Senior CMA [facility] 08-06-2023 Telephone encounter Note Facility called to r/s appt for 08/06/23 due to not setting up transportation. He is now scheduled for 09/20/23 in [place] with KEREN [facility] 08-06-2023 Miscellaneous Notes Facility called to r/s appt for 08/06/23 due to not setting up transportation. He is now scheduled for 09/20/23 in [place] with KER[facility] No sooner at [facility] Phone call to patient Memory full Deloris Valiente Name of Caller: Doroteo Contact Reason for Appointment: pt is asking if he can be seen sooner at the same office. Please assist. Thank you Office Name: urology Pt lvm wanting d/t/l of appt. I called the pt and the voice mail box was full, so unable to lvm documented in this encounter [facility] 07-18-2023 Telephone encounter Note No sooner at [facility] Phone call to patient Memory full Deloris Silvio Valiente [facility] 07-18-2023 Miscellaneous Notes No sooner at [facility] Phone call to patient Memory full Deloris Silvio Valiente Name of Caller: Doroteo Contact Reason for Appointment: pt is asking if he can be seen sooner at the same office. Please assist. Thank you Office Name: urology Pt lvm wanting d/t/l of appt. I called the pt and the voice mail box was full, so unable to lvm documented in this encounter [facility] 07-12-2023 History of Present illness Narrative Images from the original note were not included. [facility] Site of Care: [facility] Chief Complaint: Doroteo [...] Reports is trying to move to [facility] [place] nephew as his only relative - he lives in [facility] At risk for constipation Debility and use [...] to move to another facility called [facility]. He would prefer to move back to [...] other ROS are negative except as noted. Pemberton Symptom Assessment Score Pemberton Score Pain Score 0 Tiredness Score 0 Nausea Score 0 Depression Score 0 Anxiety Score 0 Drowsiness Score 0 Anorexia Score (0= eating well,10= not eating) 0 Wellbeing Score (10= worst sense of well-being) 0 Constipation 0 Dyspnea Score (0= no shortness of breath) 0 Assessed By: patient Goals of care Goals of care: move to [facility] facility Code status: full code Advance directives: Health Care Proxy Surrogate: Extended Family Prognosis: unknown Spiritual assessment: No spiritual distress identified Bereavement and grief: Grief Issues Not Identified Social history: Marital status: single, never Children: 0 Living status: alone Work history: worked in a [employer] [place] status: yes Jewish: advent Advance Care Planning: The patient has capacity to make healthcare and advanced care planning decisions Yes The patient's identified surrogate decision maker is Extended Family. Discussion participants: pt and provider Interventions reviewed: CPR and life supports Advance Care Planning Documents: Healthcare Power of Hot Plate Press Operator: Yes Financial Power of Hot Plate Press Operator: No Living Will: Yes Code Status: [...] hospice appropriate? no documented in this encounter [facility] 07-12-2023 Telephone encounter Note Name of Caller: Doroteo Contact Reason for Appointment: pt is asking if he can be seen sooner at the same office. Please assist. Thank you Office Name: urology [facility] 07-12-2023 Miscellaneous Notes Name of Caller: Doroteo Contact Reason for Appointment: pt is asking if he can be seen sooner at the same office. Please assist. Thank you Office Name: urology Pt lvm wanting d/t/l of appt. I called the pt and the voice mail box was full, so unable to lvm documented in this encounter [facility] 07-03-2023 Telephone encounter Note Pt lvm wanting d/t/l of appt. I called the pt and the voice mail box was full, so unable to lvm [facility] 07-03-2023 Miscellaneous Notes Pt lvm wanting d/t/l of appt. I called the pt and the voice mail box was full, so unable to lvm documented in this encounter [facility] 05-31-2023 History of Present illness Narrative Images from the original note were not included. [facility] Site of Care: [facility] Chief Complaint: Doroteo [...] his only relative - he lives in [facility] At risk for constipation Debility and use [...] Subjective: HPI: 82 year old male in [facility] for therapy seen today in his room. [...] have 1 nephew but he lives in [facility] and not able to live up here [...] other ROS are negative except as noted. 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 Discussion participants: pt and provider Interventions reviewed: CPR and life supports Advance Care Planning Documents: Healthcare Power of Hot Plate Press Operator: Yes Financial Power of Hot Plate Press Operator: No Living Will: Yes Code Status: [...] hospice appropriate? no documented in this encounter [facility] 05-21-2023 History of Present illness Narrative Images from the original note were not included. [facility] Pulmonary Medicine [address] [facility] [address] Dept: [phone] Dept Loc: [phone] Date of Service: 05/21/2023 Visit type: An [...] % 71. 75. 105. 75. 106. 0. NVM73-17% L/s 1.06 0.98 93. 1.20 114. 23. [...] & Sleep Medicine documented in this encounter [facility] 05-21-2023 Instructions Shazia Aguilar - 05/21/2023 10:40 AM EST YOUR APPOINTMENT TODAY WAS WITH THE [facility] LUNG NODULE [facility]IN[facility], COPD CLINIC, PULMONARY AND SLEEP MEDICINE OFFICE. PLEASE CALL OUR OFFICE AT [phone] for our [place] office location or [phone] for our [place] location, IF YOU HAVE NOT RECEIVED YOUR [...] to make improvements. COVID-19 VACCINATION INFORMATION: . [phone] HEALTH.[email or web address]/CORONAVIRUS/VACCINE [facility] Central Scheduling [phone] [facility] Sleep Scheduling [phone] documented in this encounter [facility] 05-11-2023 Telephone encounter Note Yasemin with [facility] facility states the patient received a letter from us asking for him to call and schedule an appointment to be seen. Pt is scheduled for 08/06/23 for 6 mos follow up appt. Reconfirmed the appt d/t/calvin Hazel indicated the pt is doing well and didn't need to be seen any time sooner. [facility] 05-11-2023 Miscellaneous Notes Yasemin with [facility] facility states the patient received a letter from us asking for him to call and schedule an appointment to be seen. Pt is scheduled for 08/06/23 for 6 mos follow up appt. Reconfirmed the appt d/t/calvin Hazel indicated the pt is doing well and didn't need to be seen any time sooner. documented in this encounter [facility] 03-30-2023 Telephone encounter Note Called pt. No answer. Mailing appt letter with office info. Closing this TE. [facility] 03-30-2023 Miscellaneous Notes Called pt. No answer. [...] of chronic retention. documented in this encounter [facility] 03-29-2023 Telephone encounter Note Called pt and LM informing pt we have been trying to reach him to sched an appt for a VT. Informed on vmail to please call the office either way and let us know if he has a cath or not still. Informed on vmail that we are sending pt a letter as well. [facility] 03-29-2023 Miscellaneous Notes Called pt and LM [...] of chronic retention. documented in this encounter [facility] 03-28-2023 Telephone encounter Note Called pt and LM to call back to sched VT appointment. Also informed pt to please call back either way if he doesn't have the catheter so we are aware. [facility] 03-28-2023 Miscellaneous Notes Called pt and LM [...] of chronic retention. documented in this encounter [facility] 03-27-2023 Telephone encounter Note Called pt and LVM to return office call to schedule VT if still needed [facility] 03-27-2023 Miscellaneous Notes Called pt and LVM [...] of chronic retention. documented in this encounter [facility] 03-21-2023 Discharge summary Note Date/Time March 21, 2023 4:38pm [facility] Medical Records Department [address] [place] [address] Discharge Summary 03/21/23 1632 MR#: [id number] Acct: [id number] Name: DOROTEO GONG Rep #:[id number] : 1940 82 From: Yusuf Khanna PCP: ROOPA MADERA Status:ADM IN Location: [facility] [place] [place] [id number] Providers Date of Admission: 03/18/23 Date of [...] % (Auto) 55.4, Lymph % (Auto) 27.0, Amite % (Auto) 11.6 H, Eos % (Auto) [...] outpatient urologist Dr. Ordonez for BPH at [facility] for spontaneous voiding trial. Discharge Orders/Prescriptions [...] in before D/C Order can be placed): [facility] Facility Charges/Coding Visit Charges Inpatient E&M: 40140 Disch Hosp >30min 03/21/23 1638 <Electronically signed by Yusuf Nelson MD> Cosigner Signature (if applicable): CC: ROOPA MADERA; Dr. Yusuf Nelson MD~ Signed [facility] Work Phone: 1(228) 276-784912-06-2023 Discharge summary Author Yusuf Nelson [facility] March 21, 2023 4:31pm Note Date/Time March 21, 2023 4 :26pm [facility] Medical Records Department [address] [place] [address] Transfer to [facility] MR#: [id number] Acct: [id number] Name: BELTRANDOROTEO METZITH Rep #:[id number] : 1940 82 From: Yusuf Khanna PCP: ROOPA MADERA Status:ADM IN Certification of patient admission REQUIRED AT TIME OF ADMISSION. I CERTIFY THAT POST-HOSPITAL ECF SERVICES ARE REQUIRED TO BE GIVEN ON AN IN-PATIENT BASIS BECAUSE OF THE ABOVE NAMED PATIENT'S NEED FOR HALFWAY CARE ON A CONTINUING BASIS FOR THE [...] outpatient urologist Dr. Ordonez for BPH at [facility] for spontaneous voiding trial. Discharge Orders/Prescriptions [...] in before D/C Order can be placed): [facility] Facility 03/21/23 1631 <Electronically signed by Yusuf Nelson MD> Cosigner Signature (if applicable): CC: ROOPA MADERA; Dr. Channing Bridges DO; Dr. Radha Schofield DO; Dr. Will Roque MD ~ [facility] Work Phone: 1(595) 771-955412-06-2023 Consult note Author Will Roque [facility] March 21, 2023 1:24pm Note Date/Time March 21, 2023 1 :25pm [facility] Medical Records Department [address] [place] [address] Consultation - Infectious Dx 03/21/23 1322 MR#: [id number] Acct: [id number] Name: DOROTEO GONG Rep #:[id number] : 1940 82 From: Will Roque MD PCP: ROOPA MADERA Status:ADM IN Location: [place] [address] Assessment & Plan Assessment/Plan (1) UTI (urinary [...] recent past and sees a urologist in [place]. Denies any fevers or chills. No urinary symptoms such as dysuria prior to come to the hospital. Patient is relatively asymptomatic from a standpoint other than his urinary retention. He currently has a Schwartz catheter still in place since admission. Currently on ceftriaxone. Microbiology data reviewed [facility] Medical History Asthma Benign prostate [...] % (Auto) 55.4, Lymph % (Auto) 27.0, Am[place] % (Auto) 11.6 H, Eos % (Auto) [...] Schofield DO; Dr. Will Roque MD~ Signed [facility] Work Phone: 1(980) 922-794312-05-2023 Progress note Author Radha Schofield [facility] March 20, 2023 11:39am Note Date/Time March 20, 2023 1 1:33am [facility] Medical Records Department [address] [place] [address] Progress Note - Hospitalist 03/20/23 1129 MR#: [id number] Acct: [id number] Name: DOROTEO GONG Rep #:[id number] : 1940 82 From: Radha Schofield DO PCP: ROOPA MADERA Status[facility]M [id number] Reason for Visit Reason for Visit: Debility Subjective Subjective No issues overnight. We did require Schwartz placement yesterday afternoon secondary to urinary retention. I suspect this is chronic and based on his history he has frequent issues with urinary retention and follows with Dr. Shelly rivas at [facility] for urological issues. Objective Data Objective Data [...] % (Auto) 59.5, Lymph % (Auto) 25.2, Amite % (Auto) 10.1 H, Eos % (Auto) 3.1, Baso % (Auto) 0.9, Absolute Neuts (auto)5.5, Absolute Lymphs (auto) 2.34, Nucleated RBC % 0 Micro: Microbiology 03/18/23 15:23 Urine, Clean Catch Urine Culture - Preliminary GNR lactose finance admin Physical Exam Const alert, oriented x3, no [...] -Cultures thus far growing gram-negative madison lactose finance admin with sensitivities and identification is pending -Continue [...] Full code Charges/Coding Visit Charges Inpatient E&M: 40690 Subs Hosp L2 03/20/23 4895 <Electronically signed by Radha Schofield DO> Cosigner Signature (if applicable): CC: ~ Signed [facility] Work Phone: 1(630) 102-848912-04-2023 Progress note Author Radha Schofield [facility] March 19, 2023 4:23pm Note Date/Time March 19, 2023 4 :23pm [facility] Medical Records Department [address] [place] [address] Progress Note - Hospitalist 03/19/23 1615 MR#: [id number] Acct: [id number] Name: DOROTEO GONG Rep #:[id number] : 1940 82 From: Radha Schofield DO PCP: ROOPA MADERA Status:ADM IN Location: [facility] [place] [place] [id number] Reason for Visit Reason for Visit: Knee pain/falls Subjective Subjective Mr. Gong is an 82 old white male who presents emergency department at [facility] on 03/18/2023 from home with worsening left knee pain and debility. Patient had a recent hospitalization over at [facility] and was sent to a nursing facility over in [facility]. The patient reports he was released yesterdayor [...] however [facility]. He saw [...] Catch Urine Culture - Preliminary GNR lactose finance admin Radiography Diagnostic Testing: Radiology Impression Renal Ultrasound [...] 10:00 EST Reading Location ID and State: [address] [place] [address] , Service support , Physical Exam Const [...] Full code Charges/Coding Visit Charges Inpatient E&M: 21575 Subs Hosp L2 03/19/23 1623 <Electronically signed by Radha Schofield DO> Cosigner Signature (if applicable): CC: ~ Signed [facility] Work Phone: 1(380) 387-737512-03-2023 History and physical note Author Channing Bridges [facility] March 18, 2023 9:00pm Note Date/Time March 18, 2023 4 :50pm [facility] Medical Records Department [address] [place] [address] H&P Exam - Hospitalist 03/18/23 1637 MR#: [id number] Acct: [id number] Name: DOROTEO GONG Rep #:[id number] : 1940 82 From: Channing gonzales DO PCP: ROOPA MADERA Status:ADM IN Location: [facility] [place] [place] [id number] HPI - General General Date of Admission: 03/18/23 Date of Service: 03/18/23 Chief Complaint: Weakness, left knee pain HPI Narrative DOROTEO GONG, is a 82 M who presented to [facility] ED on 03/18/2023 from home with worsening left knee pain and debility. Patient seen atbedside in ED. Sitting comfortably in bed, conversing normally, no acute distress. Patient states that he lives at home by himself. Has had a few recent admissions over at [facility] for his chronic knee pain, was seen by orthopedics there at the end of January and current plan is for left knee replacement in May. States he did need to go to a long-term facilityon his most recent discharge from [facility], was released home from there about 1 [...] other acute concerns this time. [facility] Medical History Asthma Benign prostate [...] % (Auto) 65.7, Lymph % (Auto) 20.7, Amite % (Auto) 9.5, Eos % (Auto) 1.6, [...] Clarity Cloudy, Urine pH 6.0, Ur Specific Laurel 1.015, Urine Protein 100 H, Urine Glucose [...] is an 82-year-old male who presented to [facility] ED on03/18/2023 from home with worsening left knee pain and debility. 1. Debility, severe left knee osteoarthritis with chronic pain Patient lives at home by himself in [place]. On review of [facility] records, has had 2 admissions in the past 3 to 4 months, both at [facility] for worsening kneepain and functional decline. Required SNF placement after each admission. Nephew brought him to the ED today because he could not get out of bed. Left knee XR at [facility] in January showed tricompartmental OA worst in the medial compartment and moderate in degree, with diffuse osteopenia. Orthopedics followed there, recommendation was for knee replacement; patient states that is currently scheduled for early May. Pain control for the knee has been adequate but he generally feels weak at baseline. ? Admit under inpatient status to [facility]. PT/OT/case management consulted. Anticipate patient will need SNF placement on discharge. Continue tramadol 50 mg every 8 hours as needed, Tylenol as needed, Voltaren gel daily for pain control for knee. 2. Suspected UTI, history of urinary retention, BPH Patient follows with urology at [facility]. Has required Schwartz catheter on both recent [...] fibrosis Information obtained from documentation from recent [facility] admission. Satting inmid 90s on room air [...] 55 minutes. Charges/Coding Visit Charges Inpatient E&M: 08621 Init Hosp L2 03/18/23 2100 <Electronically signed by Channing Bridges DO> Cosigner Signature (if applicable): CC: ROOPA MADERA; Dr. Channing Bridges DO~ Signed [facility] Work Phone: [phone] 595-382612-03-2023 Discharge summary Author Zechariah Post [facility] March 18, 2023 5:24pm Note Date/Time March 18, 2023 2 :31pm [facility] Medical Records Department [address] [place] [address] Emergency Department Summary 03/18/23 MR#: [id number] Acct: [id number] Name: DOROTEO GONG Rep #:[id number] : 1940 82 From: Zechariah Post MD PCP: ROOPA MADERA Status:ADM IN Location: [facility] [place] [place] LZ013-9 HPI History of Present Illness Chief Complaint: Lower Extremity Injury Narrative Narrative: 82-year-old male past medical history of chronic left knee pain, states he is supposed to have surgery by Dr. Marroquin that keeps getting put off, was discharged from rehab in [place] yesterday afternoon. He had been there for [...] secondary to his chronic left knee pain. [facility] Medical History (Updated 03/18/23 @ 16:43 [...] % (Auto) 65.7 Lymph % (Auto) 20.7 Amite % (Auto) 9.5 Eos % (Auto) 1.6 [...] Clarity Cloudy Urine pH 6.0 Ur Specific Laurel 1.015 Urine Protein 100 H Urine Glucose [...] for falls Disposition Disposition: Acute Care [facility] What to do if you have Problems For any increased pain, shortness of breath, bleeding, nausea or vomiting, chestpain, or any unexpected problems, contact your Primary Care Provider. Call [facility] ([phone]) or report to the closest Emergency Room. [...] (if applicable): cc: ROOPA MADERA ~* Signed [facility] Work Phone: [phone]) 589-757811-20-2023 History of Present illness Narrative* Jaylyn Ortiz, VARNISH INSPECTOR - MEDICAL BILLING ASSOCIATE - 03/05/2023 1:20 PM EST Images from the original note were not included. [employer] Pulmonary Medicine [address] [facility] [address] Dept: [phone] Dept Loc: [phone] Date of Service: 03/05/2023 Visit type: An [...] in a wheelchair, currently in rehab at [facility]. His onlycomplaint is nasal congestion. He [...] , Rfl: ergocalciferol (Vitamin D2) 1.25 MG (60001 UT) capsule, Take 1 capsule (1.25 mg) [...] % 71. 75. 105. 75. 106. 0. SNE10-76% L/s 1.06 0.98 93. 1.20 114. 23. [...] clearance - Planning for knee replacement at [facility] at the end of April. He is high risk for surgery and will need to optimize volume status. -We will need to see back with pulmonary prior to clearance but would advise against this at this time due tohis co-morbid conditions. He is currently at [facility] for rehab which is in [place]. Referral placed for cardiology for repeat EKG for possible a flutter and volume optimization. Need to call rehab facility to schedule appointment with coordinator. Has nephew that is POA (?). FOLLOW UP: 8 weeks with DARION Orosco CNP Pulmonary & Sleep Medicine documented in this [facility]11-20-2023 Instructions* Patient Instructions* Shazia Aguilar - 03/05/2023 1:20 PM EST YOUR APPOINTMENT TODAY WAS WITH THE [facility] LUNG NODULE [facility], COPD CLINIC, PULMONARY AND SLEEP MEDICINE OFFICE. PLEASE CALL OUR OFFICE AT [phone] for our [place] office location or [phone] for our [place] location, IF YOU HAVE NOT RECEIVED YOUR [...] to make improvements. COVID-19 VACCINATION INFORMATION: . [phone] HEALTH.ORG/CORONAVIRUS/VACCINE [facility] Central Scheduling [phone] [facility] Sleep Scheduling [phone] documented in this [facility]11-15-2023 Telephone encounter Note* Telephone Encounter - Ayanna Romeo - 02/28/2023 8:49 AM EST Called pt and LM to call back for [place] [facility] [id number] Miscellaneous Notes* Telephone Encounter - Ayanna Romeo [...] management of chronic retention. documented in this [facility]11-14-2023 History of Present illness Narrative* Bipin Pierson, - 02/27/2023 11:15 AM EST [facility] ENT [address] [facility] [address] Dept: [phone] Dept Loc: [phone] Assessment and Recommendations Doroteo was seen today [...] that it is worsening. PMH of asthma/COPD, RICKY on 2L O2 (reportedly does not tolerate [...] by mouth. ergocalciferol (Vitamin D2) 1.25 MG (03663 UT) capsule Take 1 capsule (1.25 mg) [...] Cognition and memory normal. documented in this [facility]11-06-2023 Nurse Note* Augusta Boudreaux RN - 02/19/2023 12:37 PM EST IV taken out. Gathered pts belongings. Called report to [facility]. Jeff vera transported pt [facility]. Schwartz went with pt per MD [facility] [id number] Nurse Note* Augusta Boudreaux RN - 02/19/2023 12:37 PM EST IV taken out. Gathered pts belongings. Called report to [facility]. Jeff vera transported pt to facility [facility]. Schwartz went with pt per MD * Augusta Boudreaux RN - 02/19/2023 9:59 AM EST Spoke with MD urology, and counseling case manager, per MD per urology note the recommendation [...] residual in 6 hours. documented in this [facility]11-06-2023 Miscellaneous Notes* Care Coordination - Unknown Case Management - 02/19/2023 11:51 AM EST Patient Choice Patient Name: DOROTEO GONG Date of : 1940 All Providers Sent Referral Name: [facility], [facility]. Phone: [phone] Address: [address] [place], [place] [id number] Name: [facility] Transitional Care Unit [facility] Address: [address] [place] [address] Name: [facility] Member Phone: [phone] Address: [address] [place] [address] * Care Coordination - Jaylyn Patel - 02/19/2023 11:49 AM EST Discharge med list transmitted to [facility] via [employer] per TCC request. 7000 was entered into [employer]Tier for the [facility]. * Care Coordination - YURI Davis - 02/19/2023 11:17 AM EST Social work coverage today. Requested to arrange transport for discharge to [facility] . Reviewed chart, met with patient. He feels can go by ambulette. Discussed cost to be billed. Arranged ambulette with Jeff Milan for 1 pm. Notified TCC, RN, patient, [facility], and Hvac Manager. Patient notified his relative-Harshil Murguia. * Care [...] Solis RN - 02/19/2023 9:36 AM EST [facility] DOES have a bed avail and able [...] determined. Spoke with pt this am- if [facility] has a bed that would still be his first choice but agreeable to Ilya morton if no bed avail at first choice. Message to [facility] this am about bed avail- awaiting response. Will need voiding trial prior to discharge per urology notes last week. Will NOT need auth. Discharge Milestones and Delays Expected Date/Time: 02/19/[address] discharge order Complete med reconciliation Case mgmt discharge readiness Clinical Stability Diagnsotic Workup Expected Discharge History Expected Date/Time Set By Reviewed At 02/19/2023 Cheli oSlis RN 02/19/2023 8:15 AM placement 02/19/2023 Cheli [...] 02/16/2023 1:29 PM EDT Referral placed to [facility] via Careport per TCC request. Await review and response regarding ability to accept. TCC notified. * Care Coordination - Cheli Solis RN - 02/16/2023 12:15 PM EDT Images from the original note were not included. Care Management Progress Note Met with pt for alternate SNF choices- requesting [facility]. Admin assist to send referrals. Also [...] Ramiro Baird MD 02/13/2023 3:37 PM 02/15/2023 aRmiro Baird MD 02/13/2023 2:38 AM Length of Stay (Days): 3 GMLOS: 2.8 * Care Coordination - Cheli Solis RN - 02/15/2023 2:57 PM EDT [facility] does not have a bed avail. Attempted to meet with pt for alternate choice fromlist provide this am however pt sleeping soundly. Will follow in am. * Care Coordination - Jaylyn Patel - 02/15/2023 10:47 AM EDT Referral placed to [facility]- [facility] TCC request. Await review and response regarding ability to accept. TCC notified. * Care Coordination - Cheli Solis RN - 02/15/2023 10:43 AM EDT Care Managment Initial Assessment Date: 02/15/2023 Patient Name: Doroteo Gong : 1940 Patient Information Source of Information: Patient Cognition/Language: WFL - Within Functional Limits Permission given to speak with patient medical collections representative/caregiver as indicated: Confirmation of Payer with [...] SNF Discharge Planning Actions: Continue to follow, Fdc Facility referral indicated [place] of choice: [place] of choice discussed, Choice list provided Patient's [...] SNF and asking to go back to [facility] if able- admin assist to send referral. Provided SNF list for review for alternate choices should bednot be avail. Pt will not need auth and has had 3 midnights under medicare for adm. Cheli Solis RN documented in this [place] [address]-06-2023 Note* Care Coordination - Unknown Case Management - 02/19/2023 11:51 AM EST Patient Choice Patient Name: DOROTEO GONG Date of : 1940 All Providers Sent Referral Name: [facility] Phone: [phone] Address: [address] [place], [place] [phone] Name: [facility] Address: [address] [place], [place] [id number] Name: Ilya Foster [employer] Member Phone: [phone] Address: [address] [place] [address] [place] [address]-06-2023 Note* Care Coordination - Unknown Case Management - 02/19/2023 11:51 AM EST Patient Choice Patient Name: DOROTEO GONG Date of : 1940 All Providers Sent Referral Name: [facility] Phone: [phone] Address: [address] [place], [place] [phone] Name: [facility] Care Unit [facility] Address: [address] [place] [address] Name: Ilya Foster [employer] Member Phone: [phone] Address: [address] [place] [address] [place] [address]-06-2023 Note* Care Coordination - Jaylyn Patel - 02/19/2023 11:49 AM EST Discharge med list transmitted to [facility] via [employer] per TCC request. 7000 was entered into [employer]ier for the [facility]. [employer][id number] Note* Care Coordination - Jaylyn Patel - 02/19/2023 11:49 AM EST Discharge med list transmitted to [facility] via [employer] per TCC request. 7000 was entered into OpTier for the [facility]. [employer][id number] Hospital course Narrative* Ez Velázquez MD - [...] He had been discharged to home from [facility] two weeks prior, but due toliving alone [...] 7 days. Left knee. ergocalciferol 1.25 MG (18906 UT) capsule Commonly known as: Vitamin D2 [...] Sodium 1 % gel ergocalciferol 1.25 MG (85163 UT) capsule DIET: Adult diet Regular ACTIVITY: Up with assist DISPOSITION: Skilled Facility FACILITY/HOME CARE AGENCY NAME: [facility] Keshav Leigh [facility] [address] [facility] [address] [facility] [address] Follow up Follow up with Dr. [...] NT/ND. Schwartz in place. documented in this [facility]11-06-2023 Note* Care Coordination - YURI Davis - 02/19/2023 11:17 AM EST Social work coverage today. Requested to arrange transport for discharge to [facility] . Reviewed chart, met with patient. He feels can go by ambulette. Discussed cost to be billed. Arranged ambulette with Jeffehsan Mattsonens for 1 pm. Notified JIHAN RN, patient, [facility], and Hvac Manager. Patient notified his relative-Harshil Murguia. [facility] [id number] Note* Care Coordination - YURI Davis - 02/19/2023 11:17 AM EST Social work coverage today. Requested to arrange transport for discharge to [facility] . Reviewed chart, met with patient. He feels can go by ambulette. Discussed cost to be billed. Arranged ambulette with Jeff Milan for 1 pm. Notified JIHAN RN, patient, [facility], and Hvac Manager. Patient notified his relative-Harshil Murguia. [facility] [id number] Plan of care note* Care Plan - [...] risk of patient condition declining or worsening [facility] [id number] Telephone encounter Note* Telephone Encounter - Tk [...] discussions of future management of chronic retention. [facility] [id number] Miscellaneous Notes* Telephone Encounter - Tk Wynne [...] management of chronic retention. documented in this [facility]11-06-2023 Plan of care note* Care Plan [...] clinical goals for the shift include safety [facility] [id number] Nurse Note* Augusta Boudreaux RN - 02/19/2023 9:59 AM EST Spoke with MD urology, and counseling case manager, per MD per urology note the recommendation [...] leave with schwartz in place. at10:00 AM [facility] [id number] Note* Care Coordination - Cheli Solis RN - 02/19/2023 9:36 AM EST [facility] DOES have a bed avail and able to accept pt today. Phys updated for discharge orders. Per urology 02/15, pt needs voiding trial-bedside RN aware for completion. HARDEEP complete. [facility] [id number] Note* Care Coordination - Cheli Solis RN - 02/19/2023 9:36 AM EST [facility] DOES have a bed avail and able to accept pt today. Phys updated for discharge orders. Per urology 02/15, pt needs voiding trial-bedside RN aware for completion. HARDEEP complete. [facility] [id number] History of Present illness Narrative* Estela Bazzi, PT - 02/19/2023 9:10 AM EST Images from the original note were not included. PHYSICAL THERAPY [facility] Treatment Note Name/MRN: Doroteo Gong ([id number]) Date of : 1940 Age: 82 y.o. [...] were not included. Hospitalist Progress Note 02/18/2023 [phone]: Please page [facility] night Hospitalist for any issues. [...] found for: DDIMER, PROCAL, COVID19, HGBA1C, TSH, GIPAGORV58, FOLATE, VITD25, CHOL, TRIG, HDL, LDLCALC Urine [...] MD Division of Hospitalist Medicine Inpatient Medical Services/[facility] Data: Straightforward Complexity: Chronic illness with mild to moderate exacerbation, progression, or side effect of tx (MOD). Risk: Low risk diagnostic testing or treatment (LOW). Estimated MDM: Low (48225/76594) or higher Note: the above MDM determinations [...] were not included. Hospitalist Progress Note 02/17/[phone]: Please page [facility] night Hospitalist for any [...] found for: DDIMER, PROCAL, COVID19, HGBA1C, TSH, JPNQFTPY41, FOLATE, VITD25, CHOL, TRIG, HDL, LDLCALC Urine [...] MD Division of Hospitalist Medicine Inpatient Medical Services/[facility] Data: Straightforward Complexity: Chronic illness with mild to moderate exacerbation, progression, or side effect of tx (MOD). Risk: Prescription drug/IVF/colloid was initiated, discontinued, adjusted; or reviewed with decision to maintain current orders (MOD). Estimated MDM: Medium (84072/97146) or higher Note: the above MDM determinations [...] were not included. Hospitalist Progress Note 02/16/2023 [phone]: Please page [facility] night Hospitalist for any issues. [...] Results Component Value Date TSH 0.616 02/14/2023 [id number] 974 (H) 02/14/2023 FOLATE 5.0 02/14/2023 VITD25 [...] MD Division of Hospitalist Medicine Inpatient Medical Services/[facility] Data: Moderate (3x CAT1 -OR- 1x CAT2 -OR- 1x CAT3) Complexity: Chronic illness with mild to moderate exacerbation, progression, or side effect of tx (MOD). Risk: Prescription drug/IVF/colloid was initiated, discontinued, adjusted; or reviewed with decision to maintain current orders (MOD). Estimated MDM: Medium (65007/16061) or higher Note: the above MDM determinations are made by me for my own use to estimate my end-of-day billing codes. However, documentation is reviewed by professional coders; following their review of documentation, and in accordance with current AMA CPT, CMS, and ACDIS guidelines, the actual billing code(s)may differ from my estimate. * Saúl Pagan RCP - 02/15/2023 9:15 PM EDT [facility] Respiratory Care Department Progress Note Comment [...] 02/15/2023 11:40 AM EDT Hospitalist Progress Note 02/15/20236990946-0790: Please secure chat me for patient care issues. [phone]: Please secure chat [facility] Hospitalist for any issues. Subjective: Admit Date: [...] acute concerns this time. Adult diet Regular @YGGJ5RSKTRU@ 24HR INTAKE/OUTPUT: Intake/Output Summary (Last 24 hours) [...] Bridges Division of Hospitalist Medicine Acute care [facility] PAGER: Epic chat * Deborah Myers RRT - 02/15/2023 2:23 AM EDT [facility] Respiratory Care Department Progress Note Comment [...] note were not included. Hospitalist Progress Note 02/14/20236999758-3864: Please secure chat me for patient care issues. [phone]: Please secure chat [facility] Hospitalist for any issues. Subjective: Admit Date: [...] concerns at this time. Adult diet Regular @[id number]@ 24HR INTAKE/OUTPUT: Intake/Output Summary (Last 24 hours) [...] Relative Channing Bridges Division of Hospitalist Medicine [employer] PAGER: Epic chat * Mine Costa, PT - 02/14/2023 3:42 PM EDT Images from the original note were not included. PHYSICAL THERAPY [facility] Initial Evaluation Name/MRN: Doroteo Gong ([id number]) Evaluation Date: 02/14/2023 Date of : 1940 [...] herapies at discharge. Patient states he prefers [facility]. Diagnosis: BLE edema, OA L knee and [...] Responsibilities: Independent Receives Help From: None Active Water Rights Specialist: Yes Prior Level of Function ADL Assistance: [...] of Care supervision is transferred to a [facility] Therapy Services Physical Therapist. Goals and/or treatment plan was established in collaboration with patient/family/other representatives. This provider wore appropriate PPE throughout session per facility guidelines. * Kayla Peña - 02/14/2023 8:38 AM EDT Nutrition rescreen completed. Chart reviewed. Patient to be monitored and followed by the diet cardiac catheterization technician. LENNY Cabrales documented in this [facility]11-06-2023 Note* Care Coordination - Cheli Solis RN - 02/19/2023 8:50 AM EST Images from the original note were not included. Care Management Progress Note Medically stable for discharge once facility determined. Spoke with pt this am- if [facility] has a bed that would still be [...] Length of Stay (Days): 6 GMLOS: 2.8 [facility]11-06-2023 Note* Care Coordination - Cheli Solis RN - 02/19/2023 8:50 AM EST Images from the original note were not included. Care Management Progress Note Medically stable for discharge once facility determined. Spoke with pt this am- if [facility] [place] [facility] has a bed that would still be [...] Length of Stay (Days): 6 GMLOS: 2.8 [facility] [id number] Plan of care note* Care Plan - [...] integrity is maintained or improved Outcome: Progressing [facility] [id number] Nurse Note* Taisha Merino RN - 02/17/2023 12:12 AM EDT Pt resting in bed with eyes closed sleeping. Schwartz is draining and below abdomin. Pt appears comfortable at this time. Will continue to monitor. 0530- No acute issues over night pt resting in bed with cont pulse ox, schwartz draining below abdominand denies any pain at this time. [facility] [id number] Plan of care note* Care Plan - [...] integrity is maintained or improved Outcome: Progressing [place] [id number] Plan of care note* Care Plan - [...] clinical goals for the shift include safety [facility] [id number] Note* Care Coordination - Jaylyn Patel - 02/16/2023 1:29 PM EDT Referral placed to [facility] via [facility] per TCC request. Await review and response regarding ability to accept. TCC notified. [facility] [id number] Note* Care Coordination - Jaylyn Patel - 02/16/2023 1:29 PM EDT Referral placed to [facility] via Careport per TCC request. Await review and response regarding ability to accept. TCC notified. [facility] [id number] Note* Care Coordination - Cheli Solis RN - 02/16/2023 12:15 PM EDT Images from the original note were not included. Care Management Progress Note Met with pt for alternate [facility] choices- requesting [facility]. Admin assist to send referrals. Also [...] RN 02/15/2023 8:12 AM poss placement 02/16/2023 Cehli Solis RN 02/14/2023 8:29 AM PT/OT vasc US 02/16/2023 Ramiro Baird MD 02/13/2023 3:37 PM 02/15/2023 Ramiro Baird MD 02/13/2023 2:38 AM Length of Stay (Days): 3 GMLOS: 2.8 [facility] [id number] Note* Care Coordination - Cheli Solis RN - 02/16/2023 12:15 PM EDT Images from the original note were not included. Care Management Progress Note Met with pt for alternate SNF choices- requesting [facility]. Admin assist to send referrals. Also [...] Length of Stay (Days): 3 GMLOS: 2.8 [facility] [id number] Miscellaneous Notes* Telephone Encounter - Maximiliano Draper MA - 02/16/2023 9:46 AM EDT Kenia ARROYO from [facility] called. They were calling patient to come out to the home. Patient said his left leg was going out and he was going to hospital, so he better not have therapy and hung up phone. Patient went to [facility]. Records are in Care Everywhere. Maximiliano Draper MA [facility] Consult note* Jonathan Bryan MD - 02/15/2023 [...] has been in place >48h - Page immersion metalcleaner resident corporate human resources manager of anticipated discharge for void trial instructions [...] urology resident. Agree with assessment and plan [place] Phone: 1(471) 245-456311-02-2023 Consult note* Jonathan Bryan MD - 02/15/2023 [...] has been in place >48h - Page immersion metalcleaner resident corporate human resources manager of anticipated discharge for void trial instructions [...] AM EDTAssociated Order(s): IP CONSULT TO [facility] [facility] In[facility] Consult Service Admission Date: [...] then called 911 and was brought to [facility] ED. While at the ED, his left leg started hurting. Prior to this incident, he had been leaning on guajardo to walk. He was also using a walker while leaning on the wall, prior to arrival. He has not had anything like this before. Patient just got out of PT 2 weeksago at [facility]. He was also supposed to have PT [...] with a basement and an attic in [place]. He has not been to the basement [...] Power ofAttorney: Yes, Harshil Financial Power of Hot Plate Press Operator: Yes, Harshil Living Will:Yes Code Status: [...] % infusion, 5-250 mL/hr, IntraVENous, PRN, Jose Alferdo Chambers DO sodium chloride 0.9% (NS) flush [...] included, Numbers are drawn inside the clock upper mattaponi, Numbers are equally spaced from each other, hour hand points to correct number, minute hand points to correct number, and there are only 2 clock hands Total Score 6/7 Time Instructions: Twothirty-five Scores < 5 out of 7 correlate with significantly more driving errors J Gen Information Technology Specialist Med 2005; 20:240-244 Labs and Imaging: Recent [...] Sensation intact. Nonfocal neuro exam - hand apprentice architect, arm strength symmetric bl, finger to nose [...] Doroteo Gong Date of : 1940 Acct: [id number] PCP: ROOPA MADERA MD Date of Admission: 02/12/2023 Date of Service: Pt seen/examined on 02/13/2023 Chief Complaint: Left knee pain History Of Present Illness: This is a 82 y.o. male with past medical history of left knee osteoarthritis presenting to [facility] with acute on chronic left knee [...] -Orthopaedic surgery will sign off. Please page immersion metalcleaner orthopaedic resident for questions or concerns. Aye Giraldo MD Orthopedic Surgery PGY-2 02/13/2023 at 8:05 PM Layo Staples MD PGY-4 Orthopedic Surgery Pager [phone] documented in this [facility]11-02-2023 Note* Care Coordination - Cheli Solis RN - 02/15/2023 2:57 PM EDT [facility] not have a bed avail. Attempted to meet with pt for alternate choice [facility] provide this am however pt sleeping soundly. Will follow in am. [facility] [id number] Note* Care Coordination - Cheli Solis RN - 02/15/2023 2:57 PM EDT [facility] does not have a bed avail. Attempted to meet with pt for alternate choice [facility] provide this am however pt sleeping soundly. Will follow in am. [place] [id number] Note* Care Coordination - Jaylyn Patel - 02/15/2023 10:47 AM EDT Referral placed to [facility] via Careport per TCC request. Await review and response regarding ability to accept. TCC notified. [place] [id number] Note* Care Coordination - Jaylyn Patel - 02/15/2023 10:47 AM EDT Referral placed to [facility] via Careport per TCC request. Await review and response regarding ability to accept. TCC notified. [place] [id number] Note* Care Coordination - Cheli Solis RN - 02/15/2023 10:43 AM EDT Care Managment Initial Assessment Date: 02/15/2023 Patient Name: Doroteo Gong : 1940 Patient Information Source of Information: Patient Cognition/Language: WFL - Within Functional Limits Permission given to speak with patient medical collections representative/caregiver as indicated: Confirmation of Payer with [...] pt does not know name- checking with [facility] Dialysis Type: NA Durable Medical Equipment: Cane, Walker, Shower Seat, Nebulizer, Oxygen (Continuous or prn) Oxygen Flow Rate: wears 2L at HS and prn Patient's Goal/Discharge Plan Patient expects to be discharged to: SNF Discharge Planning Actions: Continue to follow, Fdc Facility referral indicated [place] of choice: [place] of choice discussed, Choice list provided Patient's [...] prn. Pt has active HC- checking with [facility] for company name/coverage. Pt uses walker and cane at baseline. Wears oxygen at HS and prn. Discussed discharge plan and therapy recommendation- pt is agreeable to SNF and asking to go back to [facility] if able- admin assist to send referral. Provided SNF list for review for alternate choices should bednot be avail. Pt will not need auth and has had 3 midnights under medicare for adm. Cheli Solis RN T [facility] [id number] Note* Care Coordination - Cheli Solis RN - 02/15/2023 10:43 AM EDT Care Managment Initial Assessment Date: 02/15/2023 Patient Name: Doroteo Gong : 1940 Patient Information Source of Information: Patient Cognition/Language: WFL - Within Functional Limits Permission given to speak with patient medical collections representative/caregiver as indicated: Confirmation of Payer with [...] SNF Discharge Planning Actions: Continue to follow, Fdc Facility referral indicated [place] of choice: [place] of [place] discussed, Choice list provided Patient's [...] prn. Pt has active HC- checking with [facility] for company name/coverage. Pt uses walker and cane at baseline. Wears oxygen at HS and prn. Discussed discharge plan and therapy recommendation- pt is agreeable to SNF and asking to go back to [facility] if able- admin assist to send referral. Provided SNF list for review for alternate choices should bednot be avail. Pt will not need auth and has had 3 midnights under medicare for adm. Cheli Solis RN [place] [id number] Nurse Note* PURNIMA YOUNG - 02/14/2023 6:52 PM EDT RN notified Dr. Bridges of bladder scan results of 650 ml. [place] [id number] Nurse Note* PURNIMA YOUNG - 02/14/2023 4:20 PM EDT Patient sat up in chair for approximately 15 minutes, then requested to go back to bed for dinner. RN encouraged patient to stay in chair for dinner, but patient was not interested. Two Rns for transfer back to bed. [place] [id number] Nurse Note* PURNIMA YOUNG - 02/14/2023 12:27 PM EDT RN bladder scanned patient post void, 824ml noted. Dr. Bridges aware and spoke with patient. Orders for straight cath x1, recheck post void residual in 6 hours. [place] [id number] Consult note* Keny Willis MD - 02/14/2023 8:56 AM EDT Associated Order(s): IP CONSULT TO GERIATRICS [facility] In[facility] Consult Service Admission Date: [...] then called 911 and was brought to [facility] ED. While at the ED, his left leg started hurting. Prior to this incident, he had been leaning on guajardo to walk. He was also using a walker while leaning on the wall, prior to arrival. He has not had anything like this before. Patient just got out of PT 2 weeksago at [facility]. He was also supposed to have PT [...] with a basement and an attic in [place]. He has not been to the basement [...] Power ofAttorney: Yes, Harshil Financial Power of Hot Plate Press Operator: Yes, Harshil Living Will:Yes Code Status: [...] included, Numbers are drawn inside the clock upper mattaponi, Numbers are equally spaced from each other, hour hand points to correct number, minute hand points to correct number, and there are only 2 clock hands Total Score 6/7 Time Instructions: Twothirty-five Scores < 5 out of 7 correlate with significantly more driving errors J Gen Information Technology Specialist Med 2005; 20:240-244 Labs and Imaging: Recent [...] Sensation intact. Nonfocal neuro exam - hand apprentice architect, arm strength symmetric bl, finger to nose wnl, rapid alternating movements symmetric and normal. + L>R hand tremor at rest and with activity. Sensation intact throughout A/P Fall 02/12/23, functional decline, oa Tremor B12 - levels elevated Signed electronically by Cady Aquino DO on 02/14/2023 at 2:22 PM [facility] [id number] Hospital Discharge instructions* Discharge Instructions* Layo Staples [...] PCP: ROOPA MADERA MD Discharging Nurse: Augusta Hazard [facility] Hospital Unit/Room#: N4-462/N4-462 [...] assistance Toileting Total assistance Feeding Minimal assistance Wood Engraver Minimal assistance Med Delivery no Wound Care [...] Score: @READMISSIONRISKDETAILS@ Discharging to Facility/ Agency Name: [address], [place] [address] Head Sulfide Operator/Puff Iron Operator signature: ICIAN SECTION Prognosis: good Condition at [...] the diagnosis listed and that he requires long-term facility for less than 30 days. Update Admission H&P: No change in H&P PHYSICIAN SIGNATURE: * Attachments The following attachments cannot be sent through Care Everywhere. * Schwartz Catheter (New Zealander) documented in this [facility]10-31-2023 Consult note* Layo Staples MD - 02/13/2023 8:04 PM EDTAssociated Order(s): IP CONSULT TO ORTHOPAEDIC SURGERY Images from the original note were not included. Ortho Consult Patient: Doroteo Gong Date of : 1940 Acct: [id number] PCP: ROOPA MADERA MD Date of Admission: 02/12/2023 Date of Service: Pt seen/examined on 02/13/2023 Chief Complaint: Left knee pain History Of Present Illness: This is a 82 y.o. male with past medical history of left knee osteoarthritis presenting to [facility] with acute on chronic left knee [...] mg) by mouth daily. 01/30/23 Kimberley Mai, VARNISH INSPECTOR - MEDICAL BILLING ASSOCIATE bisacodyl (Fleet Bisacodyl) 10 MG/30ML enema Insert [...] mg) by mouth daily. 01/30/23 Kimberley Mai, VARNISH INSPECTOR - MEDICAL BILLING ASSOCIATE fluticasone (Flovent) 110 MCG/ACT inhaler Inhale 2 [...] 17 g, Oral, Daily PRN, Jose Alfredo Almonteodi, DO sodium chloride 0.9 % infusion, 5-250 [...] -Orthopaedic surgery will sign off. Please page immersion metalcleaner orthopaedic resident for questions or concerns. Aye Giraldo MD Orthopedic Surgery PGY-2 02/13/2023 at 8:05 PM Layo Staples MD PGY-4 Orthopedic Surgery Pager [phone] [place] Phone: [phone]) 323-427010-31-2023 History and physical note* Jose Alfredo Chambers [...] Relative Jose Alfredo Chambers DO [facility] [place] Phone: 1(722) 198-535910-31-2023 History and physical note* Jose Alfredo Chambers [...] Relative Jose Alfredo Chambers DO [facility] Inpatient Medical Services/[facility] documented in this [facility]10-31-2023 Emergency department Note* Ainsley Marrero RN - 02/13/2023 1:29 PM EDT Phoned [facility]. Hand off report given to BELINDA Kaufman. Ainsley Marrero RN 02/13/23 1321 [facility] DublinKhhfkt71-35-2373 Emergency department Note* Ainsley Marrero RN - 02/13/2023 1:29 PM EDT Phoned [facility]. Hand off report given to BELINDA Kaufman. Ainsley Marrero RN 02/13/23 1321 * Ainsley Marrero RN - 02/13/2023 12:53 [...] My interpretation can be found in the ClarityAd EKG system. EKG shows rate controlled atrial flutter with sawtooth wave appearance between QRS complexes. Left axis deviation. Cannot calculate [place] interval. QRS prolonged, QTc within normal limits. [...] me that [facility] and with [facility] orth[facility]ics as they are considering a knee [...] 02/12/2023 11:46 PM EDT Pt arrives via [facility] for leg weakness. Pt has a hx of leg weakness and was dc'd home from [facility] 2 weeks ago. Pt has issues w left hip and knee giving out. Pts left leg gave out this eveing.Pt called 911 for assist getting up. Pt was unable to amb indep w walker for ems pror to coming here. Pt denies pain or discomfort upon arrival. Pt took tylenol and tramadol 3 hours user acceptance tester. Pt denies diz ziness or pain in general. Pt a&ox4 * Cady Rodriguez RN - 02/12/2023 11:46 PM EDT Pt placed on 2L nc per home O2 documented in this [facility]10-31-2023 Emergency department Note* Ainsley Marrero RN - 02/13/2023 12:53 PM EDT Assisted patient with urinal to void. 250 ml clear, anson urine noted. No further needs at this time. Ainsley Marrero RN 02/13/23 1254 [address]Flckuk78-89-2015 Emergency department Note* Ainsley Marrero RN - 02/13/2023 12:40 PM EDT [facility]. ETA 60-90 min Ainsley Marrero RN 02/13/23 1241 [address]gsvhf49-24-9913 Emergency department Note* Ainsley Marrero RN - 02/13/2023 10:11 AM EDT Patient provided with breakfast meal and orange juice. Ainsley Marrero RN 02/13/23 [address]Mohilp82-41-2918 Emergency department Note* Tk Jasso RN - 02/13/2023 8:42 AM EDT Patient incontinent of urine. Cleaned, cleans linens and gown provided. HOB up and phone provided to patient so he can speak to nephew. Tk Jasso RN 02/13/23 [address]qothy33-01-2692 Emergency department Triage note* Cady Rodriguez RN - 02/12/2023 11:46 PM EDT Pt arrives via [facility] for leg weakness. Pt has a hx of leg weakness and was dc'd home from [facility] 2 weeks ago. Pt has issues w left hip and knee giving out. Pts left leg gave out this eveing.Pt called 911 for assist getting up. Pt was unable to amb indep w walker for ems pror to coming here. Pt denies pain or discomfort upon arrival. Pt took tylenol and tramadol 3 hours user acceptance tester. Pt denies diz ziness or pain in general. Pt a&ox4 [facility] [id number] Emergency department Triage note* Cady Rodriguez RN - 02/12/2023 11:46 PM EDT Pt placed on 2L nc per home O2 [facility] DublinAsokzq70-23-0818 Physician Emergency department Note* Ramiro Baird MD - 02/12/2023 11:46 PM [...] My interpretation can be found in the ClarityAd EKG system. EKG shows rate controlled atrial flutter with sawtooth wave appearance between QRS complexes. Left axis deviation. Cannot calculate [place] interval. QRS prolonged, QTc within normal limits. [...] me that he has been [facility] Mad[facility] and with [facility] orthopedics as they are considering a knee [...] Medicine Provider Ramiro Baird MD 02/13/23 0239 [facility] DublinIbjwhy48-11-0720 Miscellaneous Notes* Telephone Encounter - Nguyen Senior [...] (home) Last Office Visit Date: 10/23/2022 Last [facility] Visit: Visit date not found Future Appointment: Visit date not found The patients preferred pharmacy has been captured for this encounter? yes Request is for script(s) to be escript to pharmacy. Nguyen Senior MA [facility] History of Present illness Narrative* DARION Breen [...] regarding urinary retention. He recently presented to [facility] 12/30/2022 for shortness of breath however during his hospital admission, he was noted to be in urinary retention. A indwelling schwartz catheter was placed with return of 850 ml of urine. He is currently on Alfuzosin 10 mg daily and finasteride 5 mg daily Today he reports that his catheter was removed about 2-3 weeks ago at [facility]. He only reports to having pain in [...] mouth daily. 10/16/22 Anson Arceo APRN - KENDIRCK fluticasone (Flovent) 110 MCG/ACT inhaler Inhale 2 [...] to authenticate this note. documented in this [facility]10-05-2023 History of Present illness Narrative* Shazia Aguilar - 01/18/2023 8:50 AM EDT AGNESIUM hYDROXIDE * Jaylyn Ortiz, VARNISH INSPECTOR - MEDICAL BILLING ASSOCIATE - 01/18/2023 8:50 AM EDT Images from the original note were not included. [facility] PULMONARY INTERNAL [facility] PULMONARY CARE [address] [facility] [address] Dept: [phone] Dept Loc: [phone] Date of Service: 01/18/2023 Visit type: An [...] today with no accompanying him, coming from [facility] where he is in rehab. He [...] % 71. 75. 105. 75. 106. 0. QUY89-71% L/s 1.06 0.98 93. 1.20 114. 23. [...] Pulmonary & Sleep Medicine documented in this [facility]10-05-2023 Instructions* Patient Instructions* Shazia Aguilar - 01/18/2023 8:50 AM EDT YOUR APPOINTMENT TODAY WAS WITH THE [facility], COPD CLINIC, PULMONARY AND SLEEP MEDICINE OFFICE. PLEASE CALL OUR OFFICE AT [phone] for our [place] office location or [phone] for our [place] location, IF YOU HAVE NOT RECEIVED YOUR [...] to make improvements. COVID-19 VACCINATION INFORMATION: PH. [phone] HEALTH.ORG/CORONAVIRUS/VACCINE [facility] Central Scheduling [phone] [facility] Sleep Scheduling [phone] documented in this [facility]09-21-2023 Miscellaneous Notes* Care Coordination - Unknown Case Management - 01/04/2023 11:37 AM EDT Patient Choice Patient Name: DOROTEO GONG Date of : 1940 All Providers Sent [facility] Phone: [phone] Address: [address] [place] [address] * Care Coordination - Tho Echevarria - 01/04/2023 11:36 AM EDT Discharge med list transmitted to [facility] via EcoScraps per TCC request. 7000 was entered into OpTier for the SNF- Facility is aware. * Care Coordination - YURI Mccarthy - 01/04/2023 9:54 AM EDT Transportation arranged through [facility] by wheelchair van set for 1 pm. Notified RN and TCC of this via [employer] SARL secure chat. Will update patient at bedside. SW remains available if any other needs or concerns arise. * Care Coordination - Tho Echevarria - 01/03/2023 11:47 AM EDT [facility]. Await review and [...] Consult Discharge plan: SNF vs Home with [facility] Discharge obstacles: Awaiting Urology recommendations, awaiting family [...] call and speak with his nephew Harshil [phone] and he is in agreement of facility [...] agree to go to snf, Will need social secretary added to home care ser vices.. * [...] andupdate [facility] of discharge plans in [facility]. Art Specialist to continue to follow. * Care Coordination - Ian Boyer RN - 12/31/2022 1:42 PM EDT Care Managment Initial Assessment Date: 12/31/2022 Patient Name: Doroteo Gong : 1940 Patient Information Source of Information: Patient Name/Contact Information: HARSHIL MURGUIA NEPHSTEVENSON [phone] Cognition/Language: WFL - Within Functional Limits Permission given to speak with patient medical collections representative/caregiver as indicated: Yes Confirmation of Payer with patient/family: Yes Payer Name: MEDICARE AND MMO [place]: Yes Confirmation of Primary Care Physician: Confirmed [...] Living Prescription Coverage: Yes Pharmacy Used: [facility] Medication Management: Prescription pick-up Who assists with medication securing and setup?: HAS LADY FRIEND OR NEPHEW UNDERCOLLAR BASTER Transportation/Shopping: Assistance Provider Transportation/Shopping Assistance Provider Name: [...] expects to be discharged to: HOME WITH [facility] Discharge Planning Actions: Continue to follow Patient's [...] referral was made to [facility] [phone]. Updated home health attendant of this in [facility]. Did request that aide services and social secretary be added if not already active . [...] Barriers to progression include documented in this encounterSProMedica Memorial HospitalEvytus40-14-5367 Note* Care Coordination - Unknown Case Management - 01/04/2023 11:37 AM EDT Patient Choice Patient Name: DOROTEO GONG Date of : 1940 All Providers Sent Referral Name: [facility] Phone: [phone] Address: [address] [place], [place] [id number] [facility] [id number] Note* Care Coordination - Unknown Case Management - 01/04/2023 11:37 AM EDT Patient Choice Patient Name: DOROTEO GONG Date of : 1940 All Providers Sent Referral Name: [facility] Phone: [phone] Address: [address] [place], [place] [id number] [facility] DublinFxxvkh44-71-3203 Note* Care Coordination - Tho Echevarria - 01/04/2023 11:36 AM EDT Discharge med list transmitted to [facility] via [employer]Sc[employer]ps per TCC request. 7000 was entered into [facility]ier for the [facility]- Facility is aware. [facility] DublinZpkado87-05-1839 Note* Care Coordination - Tho Echevarria - 01/04/2023 11:36 AM EDT Discharge med list transmitted to [facility] via Careport per TCC request. [address] was [address] [facility] is aware. [facility] [id number] History of Present illness Narrative* Anni Vernon, VARNISH INSPECTOR - MEDICAL BILLING ASSOCIATE - 01/04/2023 11:26 AM EDT Images from the original note were not included. [facility] Inpatient Progress Note 01/04/2023 at 11:26 [...] Palpations: Abdomen is soft. Genitourinary: Comments: 16 Lao Schwartz catheter patent draining clear yellow urine. [...] MD, 25 mg at 01/04/23 0945 HYDROcodone-acetaminophen ([place]ake) 5-325 MG per tablet 1 tablet, 1 [...] Imaging: [facility]OR[facility]ONG [facility] 1940 [id number] Exam Date/Time: 01/03/2023 12:25 Procedure: US RETROPERITONEAL [...] in patient's urologic status. Anni Vernon APRN [facility] U[facility] Office: [phone] An electronic signature was used to authenticate this note. Please note that portions of this chart were dictated using Voicendo electronic voice recognition software. It is possible that typos and/or omissions and/or substitutions of words and/or phrases may exist, which may alter the intended meaning of the dictating provider. On this date 01/04/2023 I have spent 35 minutes kmqo-ne-euoy time, reviewing previous notes, test results and discussing the diagnosis and importance of compliance with the treatment plan as well as documenting on the day of the visit. * Jonathan Nickerson MD - 01/03/2023 2:26 PM EDT Hospitalist Progress Note 01/03/[id number]: Please secure chat me for patient care issues. [phone]: Please secure chat [facility] Hospitalist for any issues. Subjective: Admit Date: 12/30/2022 PCP: ROOPA MADERA MD Room#: U8-194/G7-820 A Interval History: Seen and examined. Schwartz placed overnight . Leucocytosis improved. UA normal Was not getting proscar- start flomax while in house Has placement ready, DC in am Adult diet Regular @[id number]@ 24HR INTAKE/OUTPUT: Intake/Output Summary (Last 24 hours) [...] Jonathan Nickerson MD Division of Hospitalist Medicine [facility] PAGER: Epic chat * Adele Mathew, PT - 01/02/2023 11:56 AM EDT Physical Therapy Facility/Department: [address] Physical Therapy Initial Evaluation NAME: Doroteo Gong : 1940 Date of Service: 01/02/2023 Discharge Recommendations: [facility] Facility PT Equipment Recommendations Other: TBD at [...] cane, rolling walker Transfer Assistance: Independent Active Water Rights Specialist: No Mode of Transportation: Friends Objective Observation/Palpation [...] note were not included. Hospitalist Progress Note 01/02/[id number]: Please secure chat me for patient care issues. [phone]: Please secure chat [facility] Hospitalist for any issues. Subjective: Admit Date: 12/30/2022 PCP: ROOPA MADERA MD Room#: B4-87/[facility] A Interval History: Seen and examined. Feeling better. Wants to go home tomorrow. Adult diet Regular @[id number]@ 24HR INTAKE/OUTPUT: Intake/Output Summary (Last 24 hours) [...] - tomorrow - Location - home with [facility] - Pending the following - clinical improvement Total time spent (which include face to face and non face to face encounters) : 35 minutes Toxic drug monitoring/narrow therapeutic index drug monitoring : # Drug name : # Route administered : # Method of monitoring : Extended Emergency Contact Information Primary Emergency Contact: DestinHarshil Mobile Relation: Relative Jonathan Nickerson MD Division of Hospitalist Medicine [facility] [employer] PAGER: [employer] SARL chat * Cady Saldivar RCP - 01/02/2023 11:44 AM EDT Pt wears 2 liters of oxygen at home * Mike Lemon OT - 01/02/2023 11:42 AM EDT Images from the original note were not included. Occupational Therapy OCC[facility] Initial Evaluation Name/MRN: Doroteo Gong ([id number]) Evaluation Date: 01/02/2023 Date of : 1940 Admission Date: 12/30/2022 10:19 PM Age: 82 y.o. Room/Bed: [facility] A Discharge Recommendation: SNF Equipment Needed: TBD [...] of Care supervision is transferred to a [facility] Therapy Services Occupational Therapist. Goals and/or treatment plan was established in collaboration with patient/family/other representatives. * Ana Blake APRN - 01/02/2023 11:10 AM EDT Images from the original note were not included. [facility] [place] [address] [place] [address] Patient - Doroteo Gong, Age - 82 y.o. - 1940 Room Number - B4-467/B4-467 A Consulting - Jonathan Nickerson MD Primary Care Physician - ROOPA MADERA MD [facility] # - [id number] Date of Admission - 12/30/2022 10:19 PM [...] were not included. Occupational Therapy OCCUPATIONAL THERAPY [facility] Evaluation Name/MRN: Doroteo Gong ([id number]) Evaluation Date: 01/01/2023 Date of : 1940 Admission Date: 12/30/2022 10:19 PM Age: 82 y.o. Room/Bed: [facility] A OT evaluation orders received. Pt with LE venous duplex completed and results pending. Will continue to follow and attempt once results are complete. Sera Bae OT Patient's Occupational Therapy Plan of Care supervision is transferred to a [facility] Therapy Services Occupational Therapist. Goals and/or treatment plan was established in collaboration with patient/family/other representatives. * Lolita Paulino PT - 01/01/2023 1:42 PM EDT Physical Therapy Facility/Department: [facility] Physical Therapy Initial Evaluation NAME: Doroteo Gong : 1940 Date of Service: 01/01/2023 PT evaluation orders received. Pt with LE venous duplex completed and results pending. Will continue to follow and attempt once results are complete. Lolita Paulino PT * Unique Encinas MD - 01/01/2023 12:11 PM EDT Images from the original note were not included. Hospitalist Progress Note 01/01/20236993950-4809: Please secure chat me for patient care issues. [phone]: Please secure chat [facility] Hospitalist for any issues. Subjective: Admit Date: 12/30/2022 PCP: ROOPA MADERA MD Room#: B4-857/B4-796 A Chief Complaint : Dyspnea-not worsening, feels weak denies any severe cough Interval History: No overnight issues. Denies chest pain, abdominal pain, nausea, vomiting, diarrhea, constipation, fevers, or chills. Adult diet Regular @UMYO4LLVAQE@ 24HR INTAKE/OUTPUT: Intake/Output Summary (Last 24 hours) [...] MD, MD Division of Hospitalist Medicine Acute [facility] PAGER: Epic chat * Brisa Amezcua MD - 01/01/2023 10:26 AM EDT Images from the original note were not included. [facility] [place] [address] [place], [place] [id number] Patient - Doroteo Gong, Age - 82 [...] & Critical Care Medicine Obesity Medicine Specialist [facility] * Angelika Valiente - 01/01/2023 7:56 AM EDT Nutrition rescreen complete. Pt assigned a level one for nutrition care. * aIn Frost RCP - 12/31/2022 3:35 PM EDT [facility] Respiratory Care Department Progress Note As [...] and examined, admitted early a.m. by the resource management planner, see H&P for details. Orders reviewed and updated. 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 * Lolis Carballo PT - 12/31/2022 8:56 AM EDT Physical Therapy Facility/Department: [address] Physical Therapy Initial Evaluation NAME: Doroteo Gong : 1940 Date of Service: 12/31/2022 PT orders received. Chart reviewed. Per chart review, pt has BLE duplex pending. Will await resultsand anticoagulation as needed prior to initiating mobility. Will continue to follow and re-attempt as pt appropriate and schedule permits. Lolis Carballo PT documented in this [facility]09-21-2023 Hospital course Narrative* Jonathan Nickerson MD - 01/04/2023 10:45 AM EDT [...] Your Medications These medications were sent to [facility] [address] [place] [address] Hours: Sunday to Sunday 10 am to 6 pm predniSONE 20 MG tablet DIET: Adult diet Regular ACTIVITY: No restriction. COMPLEXITY OF FOLLOW UP: [x] Moderate Complexity: follow up within 7-14 calendar days (36588) [] Severe Complexity: follow up within 7 calendar days (10168) FOLLOW UP TESTING, PENDING RESULTS OR REFERRALS AT TRANSITIONAL CARE VISIT: [x] Yes [] No PENDING STUDIES: DISPOSITION: Skilled Facility FACILITY/HOME CARE AGENCY NAME: Follow up with Joann Kline MD [address] [facility] [address] Follow up A hospital follow up appt has been arranged on 01/[address] Kline at 10:45 am Please call [phone] to reschedule if needed [facility] ENT [address] [facility] 2[address] [facility] [phone] Call Recommend ENT evaluation outpatient. Please call to arrange an appt after discharge. Roopa Madera MD [address] [facility] [address] Follow up in 1 week(s) Kathy Ordonez MD [address] [facility] 3 [facility] [address] Follow up 2-3 weeks for voiding trial. [...] MD 01/04/2023, 10:45 AM documented in this [facility]09-21-2023 Hospital Discharge instructions* Discharge Instr - HARDEEP* Amanda Steel RN - 01/04/2023 10:37 AM EDT Continuity of Care Form Patient Name: Doroteo Gong : 1940 Admit date: 12/30/2022 Discharge date: 01/04/2023 Code Status Order: Full Code Advance Directives: N Admitting Physician: Jonathan Nickerson MD PCP: ROOPA MADERA MD Discharging Nurse: Amanda Steel RN Discharging Hospital Unit/Room#: D2-797/M9-530 A Discharging Unit Emergency Contact: Extended Emergency [...] Dressing Independent Toileting Minimal assistance Feeding Independent Wood Engraver Minimal assistance Med Delivery no Wound Care [...] applicable) Name: Address: Dialysis Schedule: Phone: Fax: Head Sulfide Operator/Puff Iron Operator signature: {E-signature:19409} PHYSICIAN SECTION Prognosis: fair Condition at Discharge: [...] the diagnosis listed and that he requires long-term facility for less than 30 days. Update Admission H&P: No change in H&P PHYSICIAN SIGNATURE: documented in this [facility]09-21-2023 Note* Care Coordination - YURI Mccarthy - 01/04/2023 9:54 AM EDT Transportation arranged through [facility] by wheelchair van set for 1 pm. Notified RN and TCC of this via [employer] SARL secure chat. Will update patient at bedside. SW remains available if any other needs or concerns arise. [facility] [id number] Note* Care Coordination - YURI Mccarthy - 01/04/2023 9:54 AM EDT Transportation arranged through [facility] by wheelchair van set for 1 pm. Notified RN and TCC of this via Epic secure chat. Will update patient at bedside. SW remains available if any other needs or concerns arise. [facility] [id number] Note* Care Coordination - Tho Echevarria - 01/03/2023 11:47 AM EDT Referral placed to [facility] via Careport per TCC request. Await review and response regarding ability to accept. TCC notified. [facility] [id number] Note* Care Coordination - Tho Echevarria - 01/03/2023 11:47 AM EDT Referral placed to [facility] via Careport per TCC request. Await review and response regarding ability to accept. TCC notified. [facility] [id number] Consult note* Jonathan Bryan MD - 01/03/2023 9:35 AM EDT Associated Order(s): IP CONSULT TO UROLOGY Images from the original note were not included. Anni Vernon APRN - KENDRICK 01/03/2023 at 9:35 AM [facility] Urology Inpatient Consultation PATIENT NAME: Doroteo Gong [...] in patient's urologic status. Anni Vernon APRN [facility] [place] Office: [phone] 01/03/23 at 9:35 AM An electronic signature [...] portions of this chart were dictated using Voicendo electronic voice recognition software. It is possible [...] Anni Vernon Agree with assessment and plan [facility] [place] Work Phone: 1(846) 744-102509-20-2023 Consult note* Jonathan Bryan MD - 01/03/2023 9:35 AM EDTAssociated Order(s): IP CONSULT TO UROLOGY Images from the original note were not included. Anni Vernon APRN - MEDICAL BILLING ASSOCIATE 01/03/2023 at 9:35 AM [facility] Urology Inpatient Consultation PATIENT NAME: Doroteo [...] in patient's urologic status. Anni Vernon APRN [facility] [place] Office: [phone] 01/03/23 at 9:35 AM An electronic signature [...] portions of this chart were dictated using [employer] voice recognition software. It is possible that [...] from the original note were not included. [facility] [place] Pul[place] [address] [place] [address] Patient - Doroteo Gong - 1940 Date of Admission - 12/30/2022 10:19 PM Date of evaluation - 12/31/2022 Room - [facility] A Hospital Day - 0 Consulting - [...] 250 ml Output -- Net 250 ml @[id number]@ Physical Exam General appearance: Awake, alert, On [...] from the original note were not included. [facility] [place] Pulmonary Medicine [address] [place] [phone] Patient - Doroteo Gong - 1940 Date of Admission - 12/30/2022 10:19 PM Date of evaluation - 12/31/2022 Room - [facility] A Hospital Day - 0 Consulting - [...] in the 24 hours ending 12/31/22 1003 @[id number]@ Physical Exam General appearance: Awake, alert, On [...] the signing provider directly. documented in this [facility]09-20-2023 Note* Care Coordination - Kaitlin Ibarra RN - 01/03/2023 9:13 AM EDT Images from the original note were not included. Care Management Progress Note Patient remains on 4S s/p SOB. Clinical updates: Has now developed urinary retention resulting in Schwartz catheter placement and Urology Consult Discharge plan: SNF vs Home with [facility] Discharge obstacles: Awaiting Urology recommendations, awaiting family [...] Length of Stay (Days): 3 GMLOS: 2.8 [facility] [id number] Note* Care Coordination - Kaitlin Ibarra RN - 01/03/2023 9:13 AM EDT Images from the original note were not included. Care Management Progress Note Patient remains on 4S s/p SOB. Clinical updates: Has now developed urinary retention resulting in Schwartz catheter placement and Urology Consult Discharge plan: SNF vs Home with [facility] Discharge obstacles: Awaiting Urology recommendations, awaiting family [...] Length of Stay (Days): 3 GMLOS: 2.8 [facility] [id number] Note* Significant Event - Jeanie Doyle MD - 01/03/2023 6:04 AM EDT Recurrent urinary retention overnight requiring multiple straight cath. Schwartz placed given recurrent retention. He is already on finasteride and uroxatral. UA only mild WBC, no bacteria, will obtain culture. Will also place on bowel regimen. Urology consulted for further recommendations. [employer] Phone: 1(400) 724-734109-20-2023 Note* Significant Event - Jeanie Doyle MD - 01/03/2023 6:04 AM EDT Recurrent urinary retention overnight requiring multiple straight cath. Schwartz placed given recurrent retention. He is already on finasteride and uroxatral. UA only mild WBC, no bacteria, will obtain culture. Will also place on bowel regimen. Urology consulted for further recommendations. [employer] [place] Phone: [phone]) 947-838809-19-2023 Note* Care Coordination - Ian Boyer RN - 01/02/2023 2:36 PM EDT Spoke with patient at bedside about therapy recommendations of snf . Did provide with snf list. Patient stated did they tell you I recommended go to [facility]. States he will discuss with his nephew Harshil. Did call and speak with his nephew Harshil [phone] and he is in agreement of facility [...] agree to go to snf, Will need social secretary added to home care ser vices.. [employer]09-19-2023 Note* Care Coordination - Ian Boyer RN - 01/02/2023 2:36 PM EDT Spoke with patient at bedside about therapy recommendations of snf . Did provide with snf list. Patient stated did [facility]. States he will discuss with his nephew Harshil. Did call and speak with his nephew Harshil [phone] and he is in agreement of facility [...] agree to go to snf, Will need social secretary added to home care ser vices.. [facility] [id number] Note* Care Coordination - Ian Boyer RN [...] Stay (Days): 2 GMLOS: 2.8 .. T [facility] [id number] Note* Care Coordination - Ian Boyer RN [...] Stay (Days): 2 GMLOS: 2.8 .. T [facility] [id number] Note* Care Coordination - Kaitlin Ibarra RN [...] Stay (Days): 1 GMLOS: No GMLOS Documented [facility] [id number] Note* Care Coordination - Kaitlin Ibarra RN [...] Stay (Days): 1 GMLOS: No GMLOS Documented [facility] [id number] Note* Home Care - Oumou Willmas RN - 01/01/2023 11:33 AM EDT Patient is currently active with [facility]. The patients current certification period will on unknown. . The patient is currently receiving PT. services through the agency. Will follow andupdate [facility] of discharge plans in Careport. Art Specialist to continue to follow. [facility] DublinOdtpif46-97-3881 Note* Home Care - Oumou Willams RN - 01/01/2023 11:33 AM EDT Patient is currently active with [facility]. The patients current certification period will on unknown. . The patient is currently receiving PT. services through the agency. Will follow andupdate [facility] Art Specialist to continue to follow. [facility] DublinYngvch62-11-4625 Note 1. Limited visualization or evaluation of great toe distal phalanx, as reported. Follow-up as indicated. 2. No other, acute osseous abnormality. 3. Degenerative change and soft tissue edema. Report Dictated on Electronically Signed By: Michele Briseno MD Electronically Signed Date/Time: 12/31/2022 6:48 PM EDT [facility] EMERGENCY DEPARTMENT RADIOLOGY [id number] Consult note* Ria Tatum MD - 12/31/2022 3:20 PM EDT Images from the original note were not included. [facility] [place] [address] [place] [address] [id number] 1940 Date of Admission - 12/30/2022 10:19 PM Date of evaluation - 12/31/2022 Room - [facility] A Hospital Day - 0 Consulting - [...] 250 ml Output -- Net 250 ml @[id number]@ Physical Exam General appearance: Awake, alert, On [...] note please contact the signing provider directly. [place] Phone: [phone]) 777-118309-17-2023 Note* Care Coordination - Ian Boyer RN - 12/31/2022 1:42 PM EDT Care Managment Initial Assessment Date: 12/31/2022 Patient Name: Doroteo Gong : 1940 Patient Information Source of Information: Patient Name/Contact Information: HARSHIL MURGUIA NEPHEW [phone] Cognition/Language: WFL - Within Functional Limits Permission given to speak with patient medical collections representative/caregiver as indicated: Yes Confirmation of Payer [...] Daily Living Prescription Coverage: Yes Pharmacy Used: [facility] [place] Medication Management: Prescription pick-up Who assists with medication securing and setup?: HAS LADY FRIEND OR NEPHEW UNDERCOLLAR BASTER Transportation/Shopping: Assistance Provider Transportation/Shopping Assistance Provider Name: [...] expects to be discharged to: HOME WITH [facility] Discharge Planning Actions: Continue to follow Patient's [...] referral was made to [facility] [phone]. Updated home health attendant of this in [facility]. Did request that aide services and social secretary be added if not already active . [...] when medically stable. . Ian Boyer RN [facility] [id number] Note* Care Coordination - Ian Boyer RN - 12/31/2022 1:42 PM EDT Care Managment Initial Assessment Date: 12/31/2022 Patient Name: Doroteo Gong : 1940 Patient Information Source of Information: Patient Name/Contact Information: HARSHIL RAI [phone] Cognition/Language: WFL - Within Functional Limits Permission given to speak with patient medical collections representative/caregiver as indicated: Yes Confirmation of Payer [...] Daily Living Prescription Coverage: Yes Pharmacy Used: [facility] [place] Medication Management: Prescription pick-up Who assists with medication securing and setup?: HAS LADY FRIEND OR NEPHEW UNDERCOLLAR BASTER Transportation/Shopping: Assistance Provider Transportation/Shopping Assistance Provider Name: [...] expects to be discharged to: HOME WITH [facility] Discharge Planning Actions: Continue to follow Patient's [...] referral was made to [facility] [phone]. Updated home health attendant of this in [facility]. Did request that aide services and social secretary be added if not already active . [...] when medically stable. . Ian Boyer RN [facility] DublinSelbla85-75-4434 Consult note* Ria Tatum MD - 12/31/2022 10:03 AM EDT Images from the original note were not included. [facility] [place] [address] [place], [place] [phone] [id number] 1940 Date of Admission - 12/30/2022 10:19 PM Date of evaluation - 12/31/2022 [facility] A Hospital Day - 0 Consulting - [...] in the 24 hours ending 12/31/22 1003 @[id number]@ Physical Exam General appearance: Awake, alert, On [...] note please contact the signing provider directly. [facility] [id number] Plan of care note* Care Plan - [...] the following goals. Barriers to progression include [facility] [id number] History and physical note* Jonathan Nickerson MD [...] H&P to the patient's PCP. Thank you. [facility] DublinAeottv76-17-0922 History and physical note* Jonathan Nickerson MD [...] patient's PCP. Thank you. documented in this [facility]09-16-2023 Emergency department Note* Estela Rodriguez RN - 12/30/2022 10:19 PM EDT Bed: 12 Expected date: 12/30/22 Expected time: Means of arrival: Comments: Aaron Rodriguez RN 12/30/22 0733 [facility] DublinLyikdf77-68-5241 Emergency department Note* Tara Frazier MD - [...] findings. Report Dictated on Electronically Signed By: iMchele Briseno MD Electronically Signed Date/Time: 12/30/2022 10:45 [...] In compliance with this authorization, please visit www.fda.gov/media/144199/download or www.fda.gov/media/985681/download to access the applicable information sheets. MAGNESIUM [...] of arrival: Comments: Aaron Rodriguez RN 12/30/22 7651 documented in this [facility]09-16-2023 Emergency department Triage note* Logan Aranda RN - 12/30/2022 10:19 PM EDT From home by EMS for c/o difficulty breathing. Hx asthma, did not use inhaler. States cool air outside when put in ambulance helped. No distress upon arrival. VSS [facility] [id number] Physician Emergency department Note* Tara Frazier MD [...] In compliance with this authorization, please visit www.fda.gov/media/455442/download or www.fda.gov/media/383590/download to access the applicable information sheets. MAGNESIUM [...] 12/31/22 0044) ED Course as of 12/31/22124 [place] Dec 31, 2022 004 EKG sinus rhythm [...] Medicine Provider Tara Frazier MD 12/31/22 0125 [facility] [id number] Emergency department Note* Omayra Hidalgo RN - 12/13/2022 7:45 AM EDT Pt was not able to leave in wheelchair due to not able to go up his home stairs. Physicians called to change wheelchair into a cot. Omayra Hidalgo RN 12/13/22 0746 [facility] DublinSveldd43-38-4374 Emergency department Note* Omayra Hidalgo RN - 12/13/2022 7:45 AM EDT Pt was not able to leave in wheelchair due to not able to go up his home stairs. Physicians called to change wheelchair into a cot. Omayra Hidalgo RN 12/13/22 0746 * Cady Marshall RN - 12/13/2022 2:43 AM EDT Pt does not have transport home at this time. Batch Or Continuous Still Operator called physicians for ambulette/WC transport home with 0700 ETA to ED for hot die picker. Cady Marshall RN 12/13/22 0244 * [...] Physically Abused: No Sexually Abused: No SCREENINGS [place] Coma Scale Best Eye Response: Spontaneous Best [...] Ilya Marshall RN 12/12/222320 documented in this [facility]08-30-2023 Emergency department Note* Cady Marshall RN - 12/13/2022 2:43 AM EDT Pt does not have transport home at this time. Batch Or Continuous Still Operator called physicians for ambulette/WC transport home with 0700 ETA to ED for hot die picker. Cady Marshall RN 12/13/22 0244 [facility] [id number] Emergency department Note* Cady Marshall RN - 12/13/2022 12:22 AM EDT Portable XR at bedside Cady Marshall RN 12/13/22 0022 [address]ptnnn35-97-7938 Emergency department Note* Cady Marshall RN - 12/12/2022 11:20 PM EDT Bed: 13 Expected date: Expected time: Means of arrival: Comments: Ilya Marshall RN 12/12/22 232 [facility] [id number] Emergency department Triage note* Sasha Bahena RN [...] to left hip and knee, chronic pain. [facility] DublinLtblwr05-43-6924 Physician Emergency department Note* Kathy Daly MD [...] Physically Abused: No Sexually Abused: No SCREENINGS [place] Coma Scale Best Eye Response: Spontaneous Best [...] Physician [facility] (Per Emergency Physician): Interpretation per the [...] Emergency Medicine Provider Kathy Daly MD 12/13/22202 [facility] [id number] Miscellaneous Notes* Telephone Encounter - Shyann Bazzi [...] pharmacy. Shyann Bazzi MA documented in this encounterMarietta [facility]07-26-2023 Miscellaneous Notes* Telephone Encounter - Maximiliano Draper [...] do? Maximiliano Draper MA documented in this encounterMarietta Memorial Hospital07-10-2023 NoteHNO ID: [id number] Author: Roopa Madera MD Service: ? Author [...] the great toe. 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 Review of Systems noncontributory [...] tablet GUAIFENESIN TABS as needed GUAIFENESIN TABS [id number] Anny Masterson VARNISH INSPECTOR-MEDICAL BILLING ASSOCIATE ipratropium bromide (ATROVENT) 42 mcg (0.06 %) [...] 95 74 - 99 mg/dL Final The [place] Diabetes Association (ADA) provides guidance for cutoff [...] Standards of Medical Care in Diabetes 2016, [place] Diabetes Association. Diabetes Care. 2016.39(Suppl 1). BUN 03/18/2021 11 9 - 24 mg/dL Final Creatinine 03/18/2021 0.76 0.73 - 1.22 mg/dL Final Sodium 03/18/2021 132 (L) 136 - 144 mmol/L Final P (more content not included)...[facility]07-10-2023 History of Present illness Narrative* Roopa [...] the great toe. 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 Review of Systems noncontributory [...] tablet GUAIFENESIN TABS as needed GUAIFENESIN TABS [id number] Masterson VARNISH INSPECTOR-MEDICAL BILLING ASSOCIATE ipratropium bromide (ATROVENT) 42 mcg (0.06 %) [...] 95 74 - 99 mg/dL Final The [place] Diabetes Association (ADA) provides guidance for cutoff [...] Standards of Medical Care in Diabetes 2016, [place] [employer] Association. Diabetes Care. 2016.39(Suppl 1). BUN [...] Desk Reference: National Heart, Lung, and Blood [place]. National Institutes of Health. 2001: NIH Publication [...] Monocytes % 03/18/2021 11.5 % Final Abs Amite 03/18/2021 1.07 (H) <0.87 k/uL Final Eosinophils [...] which included preparing to see the patient, ovhh-ah-imhl patient care, completing clinical documentation, obtaining and/or reviewing separately obtained history, performing a medically appropriate examination, counseling and educating the pat ient/family/caregiver, and ordering medications, tests, or procedures Roopa Madera MD. documented in this encounterMarietta [facility] Hospital06-19-2023 Miscellaneous Notes* Telephone Encounter - Adele Landa MA - 10/02/2022 8:17 AM EDT Patient asking for Omeprazole a lower paying cost for him. Please send if ok Adele Landa CMA documented in this encounterMarietta Memorial Hospital06-15-2023 History of Present illness Narrative* DARION [...] EDT Mailed to pt documented in this [facility]06-15-2023 History of Present illness Narrative* DARION [...] 10-09-23, mailed to pt documented in this [facility]05-29-2023 Miscellaneous Notes* Telephone Encounter - Roopa [...] much better. Riri Otto documented in this encounterMarietta Memorial Hospital04-17-2023 History of Present illness Narrative* Roopa Madera [...] tablet GUAIFENESIN TABS as needed GUAIFENESIN TABS [id number] Anny Gabinoloni VARNISH INSPECTOR-MEDICAL BILLING ASSOCIATE ipratropium bromide (ATROVENT) 42 mcg (0.06 %) [...] 95 74 - 99 mg/dL Final The [place] Diabetes Association (ADA) provides guidance for cutoff [...] Standards of Medical Care in Diabetes 2016, [place] Diabetes Association. Diabetes Care. 2016.39(Suppl 1). BUN [...] Desk Reference: National Heart, Lung, and Blood [place]. National Institutes of Health. 2001: NIH Publication [...] Monocytes % 03/18/2021 11.5 % Final Abs Amite 03/18/2021 1.07 (A) <0.87 k/uL Final Eosinophils [...] which included preparing to see the patient, pfxp-fv-kfoz patient care, completing clinical documentation, obtaining and/or reviewing separately obtained history, performing a medically appropriate examination, counseling and educating the pat ient/family/caregiver, and ordering medications, tests, or procedures Roopa Madera MD. documented in this encounterMarietta Memorial Hospital04-11-2023 Miscellaneous Notes* Telephone Encounter - Adele Landa [...] pharmacy. Adele Landa MA documented in this encounterMarietta Memorial Hospital04-07-2023 Miscellaneous Notes* Telephone Encounter - Roopa Madera [...] CT. Maximiliano Draper MA documented in this encounterMarietta Memorial Hospital04-07-2023 Telephone encounter Note * Telephone Encounter - Ro Amaya - 07/21/2022 12:16 PM EDT error [facility] [id number] Miscellaneous Notes* Telephone Encounter - Ro Amaya - 07/21/2022 12:16 PM EDT error * Telephone Encounter - Eunice Walker - 07/17/2022 12:33 PM EDT Name of caller: Doroteo Contact phone number: [phone] Relationship to Patient: Patient Provider: Denise Holley Practice: Urology Chief Complaint/Reason for Call: Doroteo called in stating that the appt he has in September needs to be r/s. Please advise and follow up with Doroteo Best time of day caller can be reached: Any Patient advised that office/PCP has 24-48 business hours to return their call: No documented in this encounterSProMedica Memorial [id number] Telephone encounter Note* Telephone Encounter - Eunice Walker - 07/17/2022 12:33 PM EDT Name of caller: Doroteo Contact phone number: [phone] Relationship to Patient: Patient Provider: Denise Holley Practice: Urology Chief Complaint/Reason for Call: Doroteo called in stating that the appt he has in September needs to be r/s. Please advise and follow up with Doroteo Best time of day caller can be reached: Any Patient advised that office/PCP has 24-48 business hours to return their call: No [facility] [id number] Miscellaneous Notes* Telephone Encounter - Adele Landa [...] (home) Last Office Visit Date: 06/12/2022 Last [facility] Visit: Visit date not found Future Appointment: Visit date not found The patients preferred pharmacy has been captured for this encounter? yes Request is for script(s) to be escript to pharmacy. Adele Landa MA documented in this encounterMarietta Memorial Hospital02-27-2023 History of Present illness Narrative* Roopa Madera MD - 06/12/2022 5:13 PM EST HPI: Mr. Gong is a 81 year old male who presents for essentially chief complaint of left knee. He has mwiv-zq-zhgr arthritis. He has visited with his orthopedic [...] tablet GUAIFENESIN TABS as needed GUAIFENESIN TABS [id number] Anny Masterson VARNISH INSPECTOR-MEDICAL BILLING ASSOCIATE HYDROcodone-acetaminophen (NORCO) 5-325 mg per tablet TAKE [...] or warmth. RADIOLOGY FINDINGS: X-rays reviewed from [facility] at the end of last year [...] 95 74 - 99 mg/dL Final The [place] Diabetes Association (ADA) provides guidance for cutoff [...] Standards of Medical Care in Diabetes 2016, [place] Diabetes Association. Diabetes Care. 2016.39(Suppl 1). BUN [...] Desk Reference: National Heart, Lung, and Blood [place]. National Institutes of Health. 2001: NIH Publication [...] 03/18/2021 2.23 1.00 - 4.00 k/uL Final Amite% 03/18/2021 11.5 % Final Abs Amite 03/18/2021 1.07 (A) <0.87 k/uL Final Eosin% [...] better delineate the process andprobably reconsult his mechanic/welder. 2. Interstitial pulmonary disease on previous x-rays. [...] which included preparing to see the patient, ejwa-vj-mslr patient care, completing clinical documentation, obtaining and/or reviewing separately obtained history, performing a medically appropriate examination, counseling and educating the pat ient/family/caregiver, and ordering medications, tests, or procedures Roopa Madera MD. documented in this encounterMarietta Memorial Hospital09-02-2022 Miscellaneous Notes* Telephone Encounter - Roopa Madera [...] asked Kalyani Silveira MA documented in this encounterMarietta Memorial Hospital08-11-2022 Miscellaneous Notes* Telephone Encounter - Roopa Madera [...] patient. Shyann Bazzi CMA documented in this encounterMarietta Memorial Hospital08-09-2022 Miscellaneous Notes* Telephone Encounter - Adele Landa [...] pharmacy. Adele Landa MA documented in this encounterMarietta Memorial Hospital07-08-2022 Miscellaneous Notes* Telephone Encounter - Kalyani Silveira [...] Itching Last Office Visit Date: 10/10/2021 Last [facility] [place] [facility] Visit: Visit date not found Future Appointment: 11/02/2021 The patients preferred pharmacy has been captured for this encounter? not asked Kalyani Silveira MA documented in this encounterMarietta Memorial Hospital06-27-2022 History of Present illness Narrative* Roopa Madera [...] knee. Roopa Madera MD documented in this encounterMarietta Memorial Hospital05-31-2022 Miscellaneous Notes* Telephone Encounter - Cathy Cee [...] pharmacy. Cathy Cee MA documented in this encounterMarietta Memorial Hospital05-17-2022 Miscellaneous Notes* Telephone Encounter - Adele Landa MA - 08/30/2021 11:24 AM EDT Patient was advised on instructions Adele Landa CMA * Telephone Encounter - Roopa Madera MD - 08/30/2021 11:17 AM EDT I have 2 things that we usually try in this situation. 1 is an oral dose of magnesium citrate whichis available itnn-wrs-hxjgams at the drugstore. 2 is fleets enemas from below before the magnesium citrate. Have him try this today. DJ * Telephone Encounter - Nguyen Senior MA - 08/30/2021 10:04 AM EDT Pt called said he has had constipation since Sunday. Has tried Murelax and prune juice with no help. What to do now? Nguyen Senior CMA documented in this encounterMarietta Memorial Hospital04-05-2022 Miscellaneous Notes* Telephone Encounter - Shyann Bazzi [...] pharmacy. Shyann Bazzi MA documented in this encounterMarietta Memorial Hospital06-26-2021 History of Present illness Narrative* Ian Frost RCP - 10/09/2020 1:16 PM EDT [facility] Respiratory Care Department Progress Note SpO2 [...] NC. Report placed in pt chart. * Manis Mckeon RD, LD - 10/08/2020 3:35 PM EDT Nutrition rescreen completed. Pt assigned a level one for nutrition care. Will refer to DT for continued nutrition monitoring. RD available upon consult. * Lolita Paulino, PT - 10/08/2020 3:11 PM EDT Physical Therapy Facility/Department: [facility] 2E TELEMETRY Daily Treatment Note NAME: Doroteo [...] strength and independence for home going. Recommend [facility] PT and assist PRN upon acute care discharge. Patient is agreeable to this plan and states that his nephew would be able to assist at home. Exam: [facility] PT Education: Goals;PT Role;Plan of Care;Gait Training;General [...] with SOB. PMH is listed below. Exam: [facility] OT Education: OT Role;Plan of Care REQUIRES [...] Cane, Rolling walker, Long-handled shoehorn, Sock aid, Personal Chef Receives Help From: (no one. States his nephew comes rarely and neighbors are old and likehe is) ADL Assistance: Independent Homemaking Assistance: Independent Homemaking Responsibilities: Yes Ambulation Assistance: Independent (uses cane) Transfer Assistance: Independent Active Water Rights Specialist: Yes Mode of Transportation: Car Education: [employer] Occupation: Retired Type of occupation: [place] Leisure & Hobbies: NA IADL Comments: Pt reports at baseline he uses AE (sock aid/shoe horn/auditing specialist) to assist with dressing. Additional Comments: Pt [...] schedule permits. Lizbeth Urias OT * Jesse Ramsay MD - 10/07/2020 10:37 AM EDT Images [...] 10/06/2020 2:05 PM EDT Physical Therapy Facility/Department: [facility] 2E TELEMETRY Initial Assessment NAME: Doroteo Gong [...] and chest pain. PMH listed below. Exam: [facility] Clinical Presentation: At baseline, pt lives alone [...] Independent (uses cane) Transfer Assistance: Independent Active Water Rights Specialist: Yes Mode of Transportation: Car Occupation: Retired Type of occupation: [place] Additional Comments: Pt states he gets his [...] 0-100% Score: 54.16 (10/06/20 1406) Mobility Inpatient [facility] G-Code Modifier : CK (10/06/20 140) Goals [...] Services 10/06/2020, 12:51 PM documented in this [facility] Work Phone: 1(965) 870-652006-26-2021 NoteHospitalist Discharge Summary Doroteo Gong : 1940 [...] GENDER: M BP: 133 / 78 LOCATION: [facility] PATIENT Inpatient [facility] STATUS: *ORDERING PHYSICIAN: * Tono Strong *READING PHYSICIAN: * Lawson Guy, *FRONT SIGHT ATTACHER: * Jenni Mo MD INDICATIONS: Suspected CHF. [...] There is no significant (more content not included)...[facility]06-26-2021 Hospital Discharge instructions* Discharge Instr - [...] most local grocery stores, pharmacies, and chain whistleBox-stores. If you have any questions about your diet or nutrition, call the hospital and ask for the dietitian. * Discharge Instr - Lab* Oumou Willams RN - 10/08/2020 5:49 PM EDT Your physician has ordered skilled home care services for you. Your home care will be provided by: [facility] [phone] * Discharge Instr - HARDEEP* Guerda Jo [...] directive for healthcare treatment Durable power of lemon grower for health care;Living will No, copy requested from family Next of kin Harshil Murguia [phone] Admitting Physician: Tono Strong MD PCP: ROOPA MADERA MD Discharging Nurse: Discharging Hospital Unit/Room#: 254/2541 Discharging Unit Phone Number: Emergency Contact: Extended Emergency Contact Information Primary Emergency Contact: Harshil Murguia [facility] Relation: Niece/Nephew Past Surgical History: Past Surgical [...] Status: {IP PT MENTAL STATUS:} IV Access: {[facility] IV ACCESS:875345472} Nursing Mobility/ADLs: Walking {CHP DME ADLs:147914218} Transfer {CHP DME ADLs:034613576} Bathing {CHP DME ADLs:566953429} Dressing {CHP DME ADLs:259794923} Toileting {CHP DME ADLs:033306465} Feeding {CHP DME ADLs:769358408} Wood Engraver {P DME ADLs:998117411} Med Delivery { HARDEEP MED Delivery:825968012} Wound Care Documentation and Therapy: Elimination: Continence: Bowel: {YES / NO:} Bladder: {YES / NO:} Urinary Catheter: {Urinary Catheter:514119411} Colostomy/Ileostomy/Ileal Conduit: {YES / NO:} Date of Last BM: Intake/Output Summary (Last 24 hours) at 10/09/2020 1206 Last data filed at 10/09/2020 0820 Gross per 24 hour Intake 360 ml Output Net 360 ml I/O last 3 completed shifts: In: 360 [P.O.:360] Out: - Safety Concerns: { HARDEEP Safety Concerns:796342783} Impairments/Disabilities: { HARDEEP Impairments/Disabilities:656279354} Nutrition Therapy: Current Nutrition Therapy: { HARDEEP Diet List:706593142} Routes of Feeding: {[facility] DME Other Feedings:908891331} Liquids: {[facility] liquid thickness:91805} Daily Fluid Restriction: {P DME Yes amt example:907436678} Last Modified Barium Swallow with Video (Video Swallowing Test): {Done Not Done Date:} Treatments at the Time of Hospital Discharge: Respiratory Treatments: Oxygen Therapy: {Therapy; copd oxygen:40983} Ventilator: { CC Vent List:331064537} Rehab Therapies: {THERAPEUTIC INTERVENTION:6656139689} Weight Bearing Status/Restrictions: {[facility] Weight Bearin} Other Medical Equipment (for information only, NOT a DME order): {EQUIPMENT:483817495} Other Treatments: Patient's personal belongings (please select all that are sent with patient): {[facility] DME Belongings:585451152} RN SIGNATURE: {Esignature:130456458} CASE MANAGEMENT/SOCIAL WORK SECTION Inpatient Status Date: Readmission Risk Assessment Score: Readmission Risk Risk of Unplanned Readmission: 8 Discharging to Facility/ Agency Name: Address: Phone: Fax: Dialysis Facility (if applicable) Name: Address: Dialysis Schedule: Phone: Fax: Head Sulfide Operator/Puff Iron Operator signature: {Esignature:172773309} PHYSICIAN SECTION Prognosis: {Prognosis:0219811619} Condition at Discharge: {MH Patient Condition:648696223} Rehab Potential (if transferring to Rehab): {Prognosis:5788963284} Recommended Labs or Other Treatments After Discharge: Physician Certification: I certify the above information and transfer of Doroteo Gong is necessary for the continuing treatment of the diagnosis listed and that he requires {Admit to Appropriate Level of Care:15765} for {GREATER/LESS:430020829} 30 days. Update Admission H&P: {CHP DME Changes in HandP:921463377} PHYSICIAN SIGNATURE: {Esignature:315491366} * Additional Instructions* Guerda Jo RN - 10/09/2020 [facility] phone number [phone] documented in this encounterSBETH[facility]DA [facility] Work Phone: Evaluation note* Diagnosis Shortness of breath- Primary documented in this encounter [facility] Work Phone: Evaluation note* Diagnosis Shortness of breath documented in this encounter [employer] Work Phone: Evaluation note* Diagnosis Aspiration of foreign body, initial encounter- Primary documented [facility] Phone: Evaluation note* Diagnosis Left flank pain- Primary Abdominal pain, unspecified site Acute left-sided low back pain without sciatica Retention of urine Retention of urine, unspecified Benign prostatic hyperplasia with urinary hesitancy documented in this encounter [employer] Work Phone: Evaluation note* Diagnosis Renal calculi Calculus of kidney Incomplete bladder emptying documented in this encounter [facility] Work Phone: Evaluation note* Diagnosis Primary osteoarthritis of left knee- Primary Primary localized osteoarthrosis, lower leg Primary osteoarthritis of right knee Primary localized osteoarthrosis, lower leg documented in this encounter [facility] note* Diagnosis 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 of left knee Primary localized osteoarthrosis, lower leg documented in this encounter [facility] note* Diagnosis Pulmonary emphysema, unspecified emphysema type (HCC)- Primary Osteoarthritis, unspecified osteoarthritis type, unspecified site Pain of right great toe documented in this encounter [facility] note* Diagnosis Interstitial lung disease (HCC)- Primary Postinflammatory pulmonary fibrosis Interstitial lung disease (HCC) Postinflammatory pulmonary fibrosis documented in this encounter [facility]* Diagnosis Kidney stone Calculus of kidney [facility]* Diagnosis Hypertrophy of prostate with urinary obstruction- Primary Hypertrophy of prostate with urinary obstruction and other lower urinary tract symptoms (LUTS) documented in this encounter [facility]* Diagnosis Hypertrophy of prostate with urinary obstruction- Primary Hypertrophy of prostate with urinary obstruction and other lower urinary tract symptoms (LUTS) documented in this encounter [facility]* Diagnosis Primary osteoarthritis of both knees- Primary Primary localized osteoarthrosis, lower leg Callus of foot Corns and callosities documented in this encounter [facility]* Diagnosis Difficulty in walking- Primary Generalized weakness documented [facility] this encounter [facility]* Diagnosis Shortness of breath- Primary Shortness of breath Edema leg Edema documented in this encounter [facility]* Diagnosis Moderate persistent asthma without complication- Primary Hospital discharge follow-up Other follow-up examination RICKY (obstructive sleep apnea) Obstructive sleep apnea (adult) (pediatric) documented in this encounter [facility] note* Diagnosis 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 and other lower urinary tract symptoms (LUTS) documented in this encounter [facility]* Diagnosis 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 and other lower urinary tract symptoms (LUTS) [facility]* Diagnosis Inability to walk- Primary Difficulty in walking Inability to walk Difficulty in walking Chronic pain of left knee Bilateral leg edema Edema Chronic obstructive pulmonary disease, unspecified COPD type (HCC) Osteoarthritis of left knee, unspecified osteoarthritis type Debility Unspecified debility Declining functional status History of urinary retention At risk for delirium Polypharmacy Issue of repeat prescriptions documented in this encounter [facility]* Diagnosis Chronic cough- Primary Cough Chronic rhinitis documented in this encounter [facility]* Diagnosis History of atrial flutter- Primary Personal history of other diseases of circulatory system 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) RICKY (obstructive sleep apnea) Obstructive sleep apnea (adult) (pediatric) Dependence on nocturnal oxygen therapy documented in this encounter [facility]* Diagnosis Onset Date Resolution Status Asymptomatic bacteriuria acu te At risk for falls acute Inability to perform activities of daily living acute Weakness acute Chronic pain of left knee [facility] Work Phone: Evaluation note* Diagnosis Encounter [...] History of COVID-19 documented in this encounter [facility]* Diagnosis Goals of care, counseling/discussion- Primary Anxiety Anxiety state, unspecified Debility Unspecified debility At risk for constipation Palliative care encounter documented in this encounter [facility]* Diagnosis Hypertrophy of prostate with urinary obstruction- Primary Hypertrophy of prostate with urinary obstruction and other lower urinary tract symptoms (LUTS) Incomplete bladder emptying [facility]* Diagnosis Urinary tract infection without hematuria, site unspecified- Primary Urinary tract infection without hematuria, site unspecified Moderate malnutrition (CMS/HCC) (HCC) documented in this encounter [facility]* Diagnosis Hypertrophy of prostate with urinary obstruction- Primary Hypertrophy of prostate with urinary obstruction and other lower urinary tract symptoms (LUTS) Incomplete bladder emptying Nephrolithiasis Calculus of kidney documented in this encounter [facility] HealthEvaluation noteNo assessment information availableWCorey Hospital Work Phone: Hospital Discharge instructions* Instructions* Susanne Thrasher MD - 02/25/2021 Follow-up with your doctor on Sunday for reevaluation. Return to the emergency department for new or worsening symptoms or seeing a doctor. documented in this encounterSBETH[facility]DA [facility] Work Phone: Hospital Discharge instructions* Attachments The following attachments cannot be sent through Care Everywhere. * Low Back Pain: Exercises ([place] Ze[place]ander) * Low Back Pain: General Info ([place]) * Urinary Retention ([place] Zealander) documented in this encounterSBETH[facility]DA [facility] Work Phone: Hospital Discharge instructions* Attachments The following attachments cannot be sent through Care Everywhere. * Generalized Weakness ([place]ander) * Preventing Falls in Older Adults ([place]ander) * Getting Up From a Fall ([place]ander) documented in this encounterSKindred [facility] for referral (narrative)* Diagnostic Procedure Only (Routine) - Pending Review Specialty Diagnoses / Procedures Referred By Contac t Referred To Contact XR IMAGING Diagnoses Primary osteoarthritis of left knee Procedures XR KNEE GENERAL 4V AP BOTH/PA BOTH/LAT/MERC LEFT RADIOLOGIC EXAM KNEE COMPLETE 4/MORE VIEWS Roopa Madera MD [facility] [place] [address] Xr Imaging Referral ID Status Reason Start Date Expiration Date Visits Requested Visits Authorized [id number] Pending Review Auto-Generat ed Referral 10/10/2021 11/09/2022 1 1 [facility] for referral (narrative)* Consultation (Routine) - Pending Review Specialty Diagnoses / Procedures Referred By Gloria payan Referred To Contact Cardiology Diagnoses History of atrial flutter Procedures [place] OFFICE/OUTPATIENT NEW HIGH MDM 60-74 MINUTES Jaylyn Ortiz APRN - MEDICAL BILLING ASSOCIATE [facility] [address] [place] [address] Aguilar Ordaz MD [address] [facility] [address] [place] [address] Referral ID Status Reason Start Date Expiration Date Visits Requested Visits Authorized [id number] Pending Review Specialty Services Required 3 03/04/2024 1 1 [facility] Consultation (Routine) - Authorized Specialty Diagnoses / Procedures Referred By Contac t Referred To Contact Cardiology Diagnoses Chronic hypoxic respiratory failure, on home oxygen therapy (HCC) Pulmonary HTN (HCC) History of atrial flutter Procedures [place] OFFICE/OUTPATIENT NEW HIGH MDM 60 MINUTES Ana Blake APRN [address], [place] [address] [address] [place] [address] Referral ID Status Reason Start Date Expiration Date Visits Requested Visits Authorized [id number] Authorized Specialty Services Required 05/21/2023 05/20/2024 1 1 [facility]No reason for referral information [facility]WCorey [facility] Work Phone: Reason for visit Narrative* Auth/Cert (Routine) Specialty Diagnoses / Procedures Referred By Contac t Referred To Contact Diagnoses Urinary tract infection without hematuria, site unspecified Procedures n39.0 Chelle Enrique DO [address] [place] [address] Phone: tel: fax: [facility] Medical Surgical Unit [address] [place] [address] Phone: tel: Referral ID Status Reason Start Date Expiration Date Visits Re quested Visits Authorized [id number] 1 1 [facility] Health Summary Purpose Family History No Family [...] Agents on File Name Relationship Healthcare Agent Marcellasd daphne Communication Solange Rodriguez Other Health Care Agent Harshil Liang Alternate Health Care Agent Documents on File Type Date Recorded Patient Complaint Operator Expl anation Advance Directives and Living Will Power of Hot Plate Press Operator Latest Code Status on File Code [...] Documents on File Type Date Recorded Patient Complaint Operator Expl anation ACP-Advance Directive ACP-Power of Hot Plate Press Operator Latest Code Status on File Code Status Date Activated Date Inactivated Comments Full Code 10/06/2020 9:21 AM Full Code 06/20/2019 9:26 AM 06/22/2019 4:47 PM Latest Code Status on File Code Status Date Activated Date Inactivated Comments Full Code 10/06/2020 9:21 AM 10/09/2020 7:02 PM Documents on File Type Date Recorded Patient Complaint Operator Expl anation ACP-Advance Directive ACP-Power of Hot Plate Press Operator Latest Code Status on File Code [...] Date/ Time Name of Medical Power of Hot Plate Press Operator NASIR MURGUIA March 18, 2023 6:08pm Living Will Yes March 18 6:08pm Power of Hot Plate Press Operator Yes March 18, 2023 6:08pm Date [...] Healthcare Agent Relationshi p Communication Harshil Rai [facility] Care Agent Date Activated Date Inactivated Comments 04/08/2024 11:32 AM Healthcare Agents on File Name Relationship Healthcare Agent Relationshi p Communication Solange Rodriguez Other Health Care Agent Harshil Liang [facility] Health Care Agent Documents on File Type Date Recorded Patient Complaint Operator Expl anation DNR (Do Not Resuscitate) 04/14/2024 11:50 AM Power of Hot Plate Press Operator 04/14/2024 11:00 AM Healthcare Agents on File Name Relationship Healthcare Agent Relationshi p Communication Solange Rodriguez Other Health Care Agent Harshil Liang [facility] Health Care Agent Healthcare Agents on File Name Relationship Healthcare Agent Relationshi p Communication Solange Rodriguez Other Health Care Agent Harshil Liang [facility] Health Care Agent Discharge Instructions * Instructions* Kee Marrero MD - 05/26/2019 Continue all current medications. Do not stop any medications and to discuss this with her primary care physician. * Attachments The following attachments cannot be sent through Care Everywhere. * Back Pain ([place] Zealander) * Abdominal Pain ([place] Ze[place]ander) documented in this encounter Assessments Diagnosis Generalized [...] Smith RCP - 06/22/2019 1:03 PM EDT [facility] Respiratory Care Department Progress Note SpO2 [...] EST Hospitalist Progress Note 06/21/2019 12:58 PM [phone]: Please page mt @ [phone] for patient care issues. [phone]: Please page [facility] night Hospitalist for any issues. [...] Services This report was created using the [employer] ([employer]) Speaking voice- activated system. 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 Will contact [facility] to discuss medications. Will continue to monitor patient. Patient is sitting quietly at the side of the bed, no complaints of pain. 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, DARION - MEDICAL BILLING ASSOCIATE [address] [place] [address] [facility] [address] [place] [phone] Referral ID Status Reason Start Date Expiration Date V isits Requested Visits Authorized [id number] Open Specialty Services Required 06/05/2021 06/05/2022 1 1 Scheduling Instructions [facility] [facility] [place] [address] [place] [address] 3 [place] [address] Specialty Diagnoses / Procedures Referred By Contac t Referred To Contact Radiology Diagnoses Renal calculi Incomplete bladder emptying Procedures US RETROPERITONEAL COMPLETE Nery Leggett PA-C [address] [address] Referral ID Status Reason Start Date Expiration Date V isits Requested Visits Authorized [id number] Pending Review 06/14/2021 06/14/2022 1 1 Specialty Diagnoses / Procedures Referred By Contac t Referred To Contact CT IMAGING Diagnoses Interstitial pulmonary disease (HCC) Procedures CT CHEST WO IVCON DIAGNOSTIC COMPUTED TOMOGRAPHY THORAX W/O CNTRST Roopa Madera MD [address] [place] [address] [place] [address] Ct Imaging Referral ID Status Reason Start Date Expiration Date Visits Requested Visits Authorized [id number] Pending Review Auto-Generat ed Referral 06/12/2022 07/12/2023 1 1 Specialty Diagnoses / Procedures Referred By Contac t Referred To Contact Radiology Diagnoses Interstitial lung disease (HCC) Procedures CT chest wo IV contrast Roopa Madera MD [address] [place] [address] Referral ID Status Reason Start Date Expiration Date Visits Re quested Visits Authorized [id number] Closed 06/13/2022 12/10/2022 1 1 Specialty Diagnoses / Procedures Referred By Contac t Referred To Contact Diagnoses Chronic pain of left knee Ez Velázquez MD [address] [place] [address] Referral ID Status Reason Start Date Expiration Date Visits Re quested Visits Authorized [id number] Closed 1 1 Medications Administered Section Inactive [...] dose, On Sun06/12/22 at 1430 Given by [facility] 06/12/2022 2:20 PM EST 80 mg Kn ee, Right Inactive Administered Medications - up to 3 most recent administrations Medication Order MAR Action Action Date Dose Rate Site triamcinolone acetonide 40 mg injection (KeNALog 40) 40 mg, INTRA-ARTICULAR, ONCE, 1 dose, On Sun10/23/22 at 1530 Given by [facility] 10/23/2022 3:18 PM EDT 40 mg Kn ee, Left Chief Complaint and Reason for Visit Chief Complaint DEBILITY, UTI DEBILITY, UTI DEBILITY, UTI DEBILITY, UTI Reason for Visit Asymptomatic bacteri uria At risk for falls Inability to perform activities of daily living Weakness Chronic pain of left knee Chief Complaint Admit Date LAB WORK April 18, 2024 6: 25am HALFWAY LAB WORK July 15, 2024 4: 00am Additional Source Comments (unrecognized sect ion and content) No Status Records FoundNo Status Records FoundNo Status Records FoundNo Status Records FoundNo Status Records FoundNo Status Records FoundNo Status Records Found INFORMATION SOURCE (unrecogn ized section and content) DATE CREATED AUTHOR 05/19/2018 [facility] DATE CREATED AUTHOR AUTHOR'S ORGANIZ ATION 12/26/2018 [facility] DATE CREATED AUTHOR AUTHOR'S ORGANIZ ATION 09/08/2021 [facility] DATE CREATED AUTHOR AUTHOR'S ORGANIZ ATION 09/24/2022 [facility] DATE CREATED AUTHOR AUTHOR'S ORGANIZ ATION 08/14/2023 [facility] DATE CREATED AUTHOR AUTHOR'S ORGANIZ ATION 05/01/2024 [facility] DATE CREATED AUTHOR AUTHOR'S ORGANIZ ATION 10/06/[address] [facility] Reason for Visit (unrecogniz ed section and content) Reason Comments Extremity Weakness Specialty Diagnoses / Procedures Referred By Contgela t Referred To Contact Diagnoses Inability to walk Procedures .. Kishan Carl MD [address] [address] [facility] Emergency Dept [address] [place] [address] Referral ID Status Reason Start Date Expiration Date Visits Re quested Visits Authorized [id number] 1 1 Reason Comments Shortness of Breath Specialty Diagnoses / Procedures Referred By Gloria t Referred To Contact Diagnoses Shortness of breath Edema leg Procedures . Jonathan Nickerson MD [address] [facility] [place] [address] [facility] 4s Telemetry [address] [place] [address] Referral ID Status Reason Start Date Expiration Date Visits Re quested Visits Authorized [id number] 1 1 Reason Comments Abdominal Pain Reason [...] Reason Comments Other Patient here for keke yesenia trial. Patient schwartz removed 2 weeks ago [...] n39.0 Chelle Enrique DO [address] [place] [address] Phone: tel: fax: [facility] Medical Surgical Unit [address] [place] [address] Phone: tel: Referral ID Status Reason Start Date Expiration Date Visits Re quested Visits Authorized [id number] 1 1 Reason Onset Date Comments Other [...] 5-40 mL, Intravenous, PRN, Line Care, Per Hook Loader Request, Starting on Sun10/06/20 at 0551, For 72 hours, May use order for Line Care after every IV line use and Agitated Saline Bubble Study. Administration for Bubble Study per hand stripper request for only. Remove 1 mL 0.9% [...] 12/31/22 at 0900, Patient own med unless [place] allergy rxn clarified to substitute with Flomax [...] (Given - Provider: Janee Roland RN) HYDROcodone-acetaminophen (Lake) 5-325 MG per tablet 1 tablet 1 [...] Holley RN) 0557 (New Bag - Provider: Jessei Otto RN)0627 (Stopped - Provider: Janee Roland [...] Janee Roland RN)1747 (Given - Provider: Janee Roland RN) 0859 [...] pat dry, apply ET mix and leave OFFICE SERVICES SPECIALIST TID and PRN 0828 (Given - Provider: [...] sedation for opioid reversal - MUST notify immersion metalcleaner provider immediately after first dose, may give [...] Care Teams (unrecognized sec tion and content) Derrick Worker Well Service Relationship Specialty Start Date End Date Roopa Madera MD [address] [place] [address] [place] [address] PCP - General 09/15/14 Derrick Worker Well Service Relationship Specialty Start Date End Date Roopa Madera MD [address] [place] [address] [place] [address] PCP - General 09/15/14 Derrick Worker Well Service Relationship Specialty Start Date End Date Roopa Madera MD [address] [place], [place] [address] [address] PCP - General 09/15/14 Derrick Worker Well Service Relationship Specialty Start Date End Date Roopa Madera MD [address] [place] [address] [place] [address] PCP - General Family Practice 10/15/18 Derrick Worker Well Service Relationship Specialty Start Date End Date Roopa Madera MD [address] [place] [address] PCP - General Family Practice 10/15/18 Derrick Worker Well Service Relationship Specialty Start Date End Date Roopa Madera MD [address] [place], [phone] PCP - General Family Practice 10/15/18 Derrick Worker Well Service Relationship Specialty Start Date End Date Roopa Madera MD [address] [place] [phone] PCP - General Family Practice 10/15/18 Derrick Worker Well Service Relationship Specialty Start Date End Date Roopa Madera MD [address] [place], [phone] PCP - General Family Practice 10/15/18 Derrick Worker Well Service Relationship Specialty Start Date End Date Roopa Madera MD [address] [place] [address] PCP - General Family Practice 10/15/18 Derrick Worker Well Service Relationship Specialty Start Date End Date Roopa Madera MD [address] [place], [phone] PCP - General Family Medicine 10/15/18 Derrick Worker Well Service Relationship Specialty Start Date End Date Roopa Madera MD [address] [place] [address] PCP - General Family Medicine 10/15/18 Derrick Worker Well Service Relationship Specialty Start Date End Date Roopa Madera MD [address] [place] [phone] PCP - General 09/15/14 Kathy Ordonez MD [address] [place], [place] [address] Surgeon Urology 07/19/22 Derrick Worker Well Service Relationship Specialty Start Date End Date Roopa Madera MD [address] [place] [phone] PCP - General Family Medicine 10/15/18 Derrick Worker Well Service Relationship Specialty Start Date End Date Roopa Madera MD [address] [place] [phone] PCP - General Family Medicine 10/15/18 Derrick Worker Well Service Relationship Specialty Start Date End Date Roopa Madera MD [address] [place] [phone] PCP - General Family Medicine 10/15/18 Derrick Worker Well Service Relationship Specialty Start Date End Date Roopa Madera MD [address] [place] [address] [phone] PCP - General 09/15/14 Kathy Ordonez MD [address] [place] [address] Surgeon Urology 07/19/22 Derrick Worker Well Service Relationship Specialty Start Date End Date Roopa Madera MD [address] [place] [phone] PCP - General Family Medicine 10/15/18 Derrick Worker Well Service Relationship Specialty Start Date End Date Roopa Madera MD [facility] [place], [place] [phone] PCP - General 09/15/14 Kathy Ordonez MD [address] [place] [address] Surgeon Urology 07/19/22 Derrick Worker Well Service Relationship Specialty Start Date End Date Roopa Madera MD [address] [place] [address] PCP - General 09/15/14 Kathy Ordonez MD [address] [place] [address] Surgeon Urology 07/19/22 Derrick Worker Well Service Relationship Specialty Start Date End Date Roopa Madera MD [address] [place] [phone] PCP - General Family Medicine 10/15/18 Derrick Worker Well Service Relationship Specialty Start Date End Date Roopa Madera MD [facility] [place] [phone] PCP - General Family Medicine 10/15/18 Derrick Worker Well Service Relationship Specialty Start Date End Date Roopa Madera MD [address] [place] [phone] PCP - General Family Medicine 10/15/18 Derrick Worker Well Service Relationship Specialty Start Date End Date Roopa Madera MD [address] [place] [address] PCP - General 09/15/14 Kathy Ordonez MD [address] [place] [address] Surgeon Urology 07/19/22 Derrick Worker Well Service Relationship Specialty Start Date End Date Roopa Madera MD [address] [place] [address] PCP - General 09/15/14 Kathy Ordonez MD [address] [place] [address] Surgeon Urology 07/19/22 Derrick Worker Well Service Relationship Specialty Start Date End Date Roopa Madera MD [address] [place] [address] PCP - General 09/15/14 Kathy Ordonez MD [address] [place] [address] Surgeon Urology 07/19/22 Derrick Worker Well Service Relationship Specialty Start Date End Date Roopa Madera MD [address] [place] [address] PCP - General 09/15/14 Kathy Ordonez MD [address] [place] [address] Surgeon Urology 07/19/22 Derrick Worker Well Service Relationship Specialty Start Date End Date Roopa Madera MD [address] [place] [address] PCP - General Family Medicine 10/15/18 Derrick Worker Well Service Relationship Specialty Start Date End Date Roopa Madera MD [address] [place] [address] PCP - General 09/15/14 Kathy Ordonez MD [address] [place] [address] Surgeon Urology 07/19/22 Derrick Worker Well Service Relationship Specialty Start Date End Date Roopa Madera MD [address] [place] [address] PCP - General 09/15/14 Kathy Ordonez MD [address] [place] [address] Surgeon Urology 07/19/22 Derrick Worker Well Service Relationship Specialty Start Date End Date Roopa Madera MD [address] [place] [address] PCP - General 09/15/14 Kathy Ordonez MD [address] [place] [address] Surgeon Urology 07/19/22 Derrick Worker Well Service Relationship Specialty Start Date End Date Roopa Madera MD [address] [place] [address] PCP - General 09/15/14 Kathy Ordonez MD [address] [place] [address] Surgeon Urology 07/19/22 Derrick Worker Well Service Relationship Specialty Start Date End Date Roopa Madera MD [address] [place] [address] PCP - General Family Medicine 10/15/18 Derrick Worker Well Service Relationship Specialty Start Date End Date Roopa Madera MD [address] [place] [address] PCP - General 09/15/14 Kathy Ordonez MD [address] [place] [address] Surgeon Urology 07/19/22 Derrick Worker Well Service Relationship Specialty Start Date End Date Roopa Madera MD [address] [place] [address] PCP - General 09/15/14 Kathy Ordonez MD [address] [facility] [address] [place] [address] Surgeon Urology 07/19/22 Derrick Worker Well Service Relationship Specialty Start Date End Date Roopa Madera MD [address] [place] [address] PCP - General 09/15/14 Kathy Ordonez MD [address] [facility] [place] [address] Surgeon Urology 07/19/22 Team Status: Active Member [...] Dr. Will Roque MD Other Provider Active Derrick Worker Well Service Relationship Specialty Start Date End Date Roopa Madera MD [address] [place] [address] PCP - General 09/15/14 Kathy Ordonez MD [address] [place] [address] Surgeon Urology 07/19/22 Derrick Worker Well Service Relationship Specialty Start Date End Date Roopa Madera MD [address] [place] [address] PCP - General 09/15/14 Kathy Ordonez MD [address] [place] [address] Surgeon Urology 07/19/22 Derrick Worker Well Service Relationship Specialty Start Date End Date Roopa Madera MD [address] [place] [address] PCP - General 09/15/14 Kathy Ordonez MD [address] [place] [address] Surgeon Urology 07/19/22 Derrick Worker Well Service Relationship Specialty Start Date End Date Roopa Madera MD [address] [place] [address] PCP - General 09/15/14 Kathy Ordonez MD [address] [place] [address] Surgeon Urology 07/19/22 Derrick Worker Well Service Relationship Specialty Start Date End Date Roopa Madera MD [address] [place] [address] PCP - General 09/15/14 Kathy Ordonez MD [address] [place] [address] Surgeon Urology 07/19/22 Derrick Worker Well Service Relationship Specialty Start Date End Date Roopa Madera MD [address] [place] [address] PCP - General 09/15/14 Kathy Ordonez MD [address] [place] [address] Surgeon Urology 07/19/22 Derrick Worker Well Service Relationship Specialty Start Date End Date Roopa Madera MD [facility] [place] [address] PCP - General 09/15/14 Kathy Ordonez MD [address] [place] [address] Surgeon Urology 07/19/22 Derrick Worker Well Service Relationship Specialty Start Date End Date Roopa Madera MD [address] [place] [phone] PCP - General Family Medicine 10/15/18 Derrick Worker Well Service Relationship Specialty Start Date End Date Roopa Madera MD [address] [place] [phone] PCP - General 09/15/14 Katyh Ordonez MD [address] [place] [address] Surgeon Urology 07/19/22 Derrick Worker Well Service Relationship Specialty Start Date End Date Roopa Madera MD [address] [place] [address] PCP - General 09/15/14 Kathy Ordonez MD [address] [place] [address] Surgeon Urology 07/19/22 Derrick Worker Well Service Relationship Specialty Start Date End Date Roopa Madera MD [address] [place] [phone] PCP - General 09/15/14 Kahty Ordonez MD [address] [place] [address] Surgeon Urology 07/19/22 Derrick Worker Well Service Relationship Specialty Start Date End Date Roopa Madera MD [address] [place] [phone] PCP - General 09/15/14 Kathy Ordonez MD [address] [place] [address] Surgeon Urology 07/19/22 Yenifer Dc DO [address] [place] [address] Surgeon Urology 04/08/24 Derrick Worker Well Service Relationship Specialty Start Date End Date Roopa Madera MD [address] [place] [phone] PCP - General 09/15/14 Kathy Ordonez MD [address] [place] [address] Surgeon Urology 07/19/22 Yenifer Dc DO [address] [place] [address] Surgeon Urology 04/08/24 Derrick Worker Well Service Relationship Specialty Start Date End Date Roopa Madera MD [facility] [place] [address] PCP - General 09/15/14 Kathy Ordonez MD [address] [place] [address] Surgeon Urology 07/19/22 Yenifer Dc DO [address] [place] [address] Surgeon Urology 04/08/24 Derrick Worker Well Service Relationship Specialty Start Date End Date Roopa Madera MD [facility] [place] [phone] PCP - General 09/15/14 Kathy Ordonez MD [address] [place] [address] Surgeon Urology 07/19/22 Yenifer Dc DO [address] [place] [address] Surgeon Urology 04/08/24 Team Status: Active Member [...] or prosecute any alcohol or drug abuse patient.[facility] HospitalIn the event this information is protected by the Federal Confidentiality of Alcohol and Drug Abuse Patient Records regulations: The Federal rules restrict any use of the information to criminally investigate or prosecute any alcohol or drug abuse patient.[facility] HospitalIn the event this information is protected by the Federal Confidentiality of Alcohol and Drug Abuse Patient Records regulations: The Federal rules restrict any use of the information to criminally investigate or prosecute any alcohol or drug abuse patient.[facility] HospitalIn the event this information is protected by the Federal Confidentiality of Alcohol and Drug Abuse Patient Records regulations: The Federal rules restrict any use of the information to criminally investigate or prosecute any alcohol or drug abuse patient.[facility] HospitalIn the event this information is protected by the Federal Confidentiality of Alcohol and Drug Abuse Patient Records regulations: The Federal rules restrict any use of the information to criminally investigate or prosecute any alcohol or drug abuse patient.[facility] HospitalIn the event this information is protected by the Federal Confidentiality of Alcohol and Drug Abuse Patient Records regulations: The Federal rules restrict any use of the information to criminally investigate or prosecute any alcohol or drug abuse patient.[facility] HospitalIn the event this information is protected by the Federal Confidentiality of Alcohol and Drug Abuse Patient Records regulations: The Federal rules restrict any use of the information to criminally investigate or prosecute any alcohol or drug abuse patient.[facility] HospitalIn the event this information is protected by the Federal Confidentiality of Alcohol and Drug Abuse Patient Records regulations: The Federal rules restrict any use of the information to criminally investigate or prosecute any alcohol or drug abuse patient.[facility] HospitalIn the event this information is protected by the Federal Confidentiality of Alcohol and Drug Abuse Patient Records regulations: The Federal rules restrict any use of the information to criminally investigate or prosecute any alcohol or drug abuse patient.[facility] HospitalIn the event this information is protected by the Federal Confidentiality of Alcohol and Drug Abuse Patient Records regulations: The Federal rules restrict any use of the information to criminally investigate or prosecute any alcohol or drug abuse patient.[facility] HospitalIn the event this information is protected by the Federal Confidentiality of Alcohol and Drug Abuse Patient Records regulations: The Federal rules restrict any use of the information to criminally investigate or prosecute any alcohol or drug abuse patient.[facility] HospitalIn the event this information is protected by the Federal Confidentiality of Alcohol and Drug Abuse Patient Records regulations: The Federal rules restrict any use of the information to criminally investigate or prosecute any alcohol or drug abuse patient.[facility] HospitalIn the event this information is protected by the Federal Confidentiality of Alcohol and Drug Abuse Patient Records regulations: The Federal rules restrict any use of the information to criminally investigate or prosecute any alcohol or drug abuse patient.[facility] HospitalIn the event this information is protected by the Federal Confidentiality of Alcohol and Drug Abuse Patient Records regulations: The Federal rules restrict any use of the information to criminally investigate or prosecute any alcohol or drug abuse patient.[facility] HospitalIn the event this information is protected by the Federal Confidentiality of Alcohol and Drug Abuse Patient Records regulations: The Federal rules restrict any use of the information to criminally investigate or prosecute any alcohol or drug abuse patient.[facility] HospitalIn the event this information is protected by the Federal Confidentiality of Alcohol and Drug Abuse Patient Records regulations: The Federal rules restrict any use of the information to criminally investigate or prosecute any alcohol or drug abuse patient.[facility] HospitalIn the event this information is protected by the Federal Confidentiality of Alcohol and Drug Abuse Patient Records regulations: The Federal rules restrict any use of the information to criminally investigate or prosecute any alcohol or drug abuse patient.[facility] HospitalIn the event this information is protected by the Federal Confidentiality of Alcohol and Drug Abuse Patient Records regulations: The Federal rules restrict any use of the information to criminally investigate or prosecute any alcohol or drug abuse patient.[facility] HospitalIn the event this information is protected by the Federal Confidentiality of Alcohol and Drug Abuse Patient Records regulations: The Federal rules restrict any use of the information to criminally investigate or prosecute any alcohol or drug abuse patient.[facility] HospitalIn the event this information is protected by the Federal Confidentiality of Alcohol and Drug Abuse Patient Records regulations: The Federal rules restrict any use of the information to criminally investigate or prosecute any alcohol or drug abuse patient.[facility] HospitalIn the event this information is protected by the Federal Confidentiality of Alcohol and Drug Abuse Patient Records regulations: The Federal rules restrict any use of the information to criminally investigate or prosecute any alcohol or drug abuse patient.[facility] Goals (unrecognized section and content) Goals may [...] BE BASED ON THE PRIMARY CLINICAL RECORDS. [facility]. provides no warranty or guarantee of the accuracy or completeness of information in this document.
[2024-10-27 09:09] LABS: Anion Gap 10 (5-15); BUN 14 mg/dL (4-19); BUN/Creat Ratio 23.6 RATIO (10-20); Calcium,Total 9.6 mg/dL (7.6-11.0); Carbon Dioxide 26.6 mmol/L (21.0-32.0); Chloride 98 mmol/L (98-108); Glucose 81 mg/dL (70-99); Potassium 4.0 mmol/L (3.3-5.1)
[2024-10-27 11:55] LABS: Hematocrit 38.1 % (40-54); Hemoglobin 12.4 g/dL (13.0-16.5); Mean Corp Hgb Conc 32.5 g/dL (32-36); Mean Corpuscular Volume 85.0 fL (80-94); Mean Platelet Vol. 9.4 fl (6.2-12.0); Platelet Count 544 K/mm3 (150-450); RBC Distribution Width CV 15.7 % (11.6-14.6); RBC Distribution Width SD 48.6 fl (35.1-43.9); Red Blood Count 4.48 M/mm3 (4.6-6.2); White Blood Count 10.2 K/mm3 (4.4-11.0)
== END ==
LOC: OLS.ACH 04:00
PROVIDERS: Referring Provider Internal Medicine; Visit Provider Internal Medicine
DX: R19.5 Other fecal abnormalities (principal)
CPT/HCPCS: 36415; 80048; 85027; 87493

== ENCOUNTER → 2024-11-03 | Outpatient (REF) | payer MEDICARE, OTHER, SELFPAY ==
[2024-11-03 08:54] LABS: Hematocrit 35.6 % (40-54); Hemoglobin 11.9 g/dL (13.0-16.5); Immature Granulocytes Count 0.050 X10^3/uL (0.0-0.0); Mean Corp Hgb Conc 33.4 g/dL (32-36); Mean Corpuscular Volume 83.2 fL (80-94); Mean Platelet Vol. 9.3 fl (6.2-12.0); NRBC Flagged by Analyzer 0 % (0-5); Platelet Count 572 K/mm3 (150-450); RBC Distribution Width CV 15.3 % (11.6-14.6); RBC Distribution Width SD 46.7 fl (35.1-43.9); Red Blood Count 4.28 M/mm3 (4.6-6.2); White Blood Count 10.0 K/mm3 (4.4-11.0)
[2024-11-03 09:15] LABS: Anion Gap 9 (5-15); BUN 17 mg/dL (4-19); BUN/Creat Ratio 32.6 RATIO (10-20); Calcium,Total 9.6 mg/dL (7.6-11.0); Carbon Dioxide 27.2 mmol/L (21.0-32.0); Chloride 98 mmol/L (98-108); Glucose 88 mg/dL (70-99); Potassium 4.1 mmol/L (3.3-5.1)
== END ==
LOC: OLS.ACH 04:00
PROVIDERS: Referring Provider Internal Medicine; Visit Provider Internal Medicine
DX: R50.9 Fever, unspecified (principal); R05.9 Cough, unspecified; J44.9 Chronic obstructive pulmonary disease, unspecified
CPT/HCPCS: 36415; 80048; 85025; 87633

== ENCOUNTER → 2024-12-08 04:00 | Outpatient (REF) | payer MEDICARE, OTHER, SELFPAY ==
[2024-12-08 08:23] LABS: Hematocrit 37.9 % (40-54); Hemoglobin 12.4 g/dL (13.0-16.5); Mean Corp Hgb Conc 32.7 g/dL (32-36); Mean Corpuscular Volume 84.0 fL (80-94); Mean Platelet Vol. 9.0 fl (6.2-12.0); POSITIVE COUNT YES; Platelet Count 788 K/mm3 (150-450); RBC Distribution Width CV 14.4 % (11.6-14.6); RBC Distribution Width SD 44.1 fl (35.1-43.9); Red Blood Count 4.51 M/mm3 (4.6-6.2); White Blood Count 11.9 K/mm3 (4.4-11.0)
[2024-12-08 08:26] LABS: Scan Indicated on CBC? Y/N YES- FLAGS NOTED
[2024-12-08 08:45] LABS: Anion Gap 11 (5-15); BUN 11 mg/dL (4-19); BUN/Creat Ratio 18.6 RATIO (10-20); Calcium,Total 9.7 mg/dL (7.6-11.0); Carbon Dioxide 26.6 mmol/L (21.0-32.0); Chloride 100 mmol/L (98-108); Glucose 84 mg/dL (70-99); Potassium 3.9 mmol/L (3.3-5.1)
[2024-12-08 08:49] LABS: Differential Comment SCANNED
== END ==
LOC: OLS.ACH 04:00
PROVIDERS: Referring Provider Internal Medicine; Visit Provider Internal Medicine
DX: D51.9 Vitamin B12 deficiency anemia, unspecified (principal); E03.9 Hypothyroidism, unspecified; I13.0 Hypertensive heart and chronic kidney disease with heart failure and stage 1 through stage 4 chronic kidney disease, or unspecified chronic kidney disease; I50.9 Heart failure, unspecified; N18.9 Chronic kidney disease, unspecified
CPT/HCPCS: 36415; 80048; 85027

== ENCOUNTER 2024-12-23 09:21 | Outpatient (CLI) | payer MEDICARE, OTHER, SELFPAY ==
--- NOTE | 2024-12-23 09:33 | SP.MBSS_ITS ---
Modified Barium Swallow Patient Information Study Date: 12/23/24 Study Time: 09:30 Direct Billable Minutes: 132 Total Minutes procedure & reportin Diagnosis: Dysphagia R13.10 Referring Physician: Castillo Ortiz Reason for Referral: Objectively assess swallow function, assess risk for aspiration, and determine recommendations for least restrictive diet textures and compensatory strategies to improve safety of swallow. Medical History: PMH: COPD, oropharyngeal dysphagia, asthma, pulmonary fibrosis, GERD, chronic pain, bronchitis, HLD, hypokalemia, RICKY, cognitive communication deficit,low back pain, age related debility, muscle weakness, depression - See EMR for full PMH. Per pt, he was referred for MBSS due to coughing w/ food and drink and PNA 4-5X in the past year (most recently ~1 month ago per pt). He is currently on mechanical soft textures w/ ground meats / mildly thick liquids (no straws). He reports needing the Heimlich w/ a sweet potato johnson. He reports MBSS years ago at another facility, but can't recall results or recommendations. He follows w/ GI w/ Dr. Axel Marinelli for management of GERD per pt. He does not recall hx of EGD. Current Diet Ordered: Mechanical soft textures / Mildly thick liquids Dentition: Upper Dentures and Lower Dentures Mental Status: Impaired (Hx of cognitive communication deficits, difficulty following directions 1X during the evaluation) Respiratory Status: Oxygenating on Room Air Penetration-Aspiration Scale Penetration-Aspiration Scale: OBJECTIVE ASSESSMENT OF SWALLOW FUNCTION (QUANTITATIVE ? PER TRIAL): PENETRATION / ASPIRATION SCALE (VAN): 1 = does not enter airway 2 = enters airway/above vocal folds/ejected 3 = enters airway/above vocal folds/not ejected 4 = enters airway/contacts vocal folds/ejected 5 = enters airway/contacts vocal folds/not ejected 6 = enters airway/below vocal folds/ejected 7 = enters airway/below vocal folds/not ejected despite effort 8 = enters airway/below vocal folds/no effort VIDEOFLOROSCOPIC SCALE SCORE (VAN): Grade I = aspiration of material that has penetrated into the laryngeal vestibule, intact cough reflex Grade II = aspiration < 10 % of the bolus, intact cough reflex Grade III = aspiration of < 10 % of the bolus, reduced cough reflex or aspiration of > 10 % of the bolus, intact cough reflex Grade IV = aspiration of > 10 % of the bolus, reduced cough reflex Penetration-Aspiration Scale Score Thin Liquid via teaspoon: Result: 7= enters airways/below vocal folds/not ejected despite effort Thin Liquid via teaspoon Effortful swallow: Result: 7= enters airways/below vocal folds/not ejected despite effort [place] Thick Liquid via teaspoon: Result: 7= enters airways/below vocal folds/not ejected despite effort Honey Thick Liquid via teaspoon: Result: 3= enters airways/above vocal folds/not ejected Pudding via teaspoon: Result: 2= enter airway/above vocal folds/ejected Comment: Cued chin tuck = somewhat effective in clearing vallecula. Silent post prandial aspiration of residues of previous trials. Honey Thick Liquid via teaspoon Trial 2: Result: 2= enter airway/above vocal folds/ejected Honey Thick Liquid via small single sip: cup: Result: 2= enter airway/above vocal folds/ejected Comment: Silent post prandial aspiration of residues of previous trials. Honey Thick Liquid via small single sip: cup Trial 2: Result: 7= enters airways/below vocal folds/not ejected despite effort Comment: Delayed reflexive cough 1/4 Cookie: Result: 1= does not enter airway Comment: Cued pt to chew cookie and inform NETWORK SERVICES PROJECT MANAGER prior to swallowing so that NETWORK SERVICES PROJECT MANAGER could determine under fluoroscopy if cookie was fully chewed and safe to be swallowed, but pt swallowed after a short amount of chewing. Fluoroscopy not on for the initial swallow. Honey Thick Liquid via teaspoon Trial 3: Result: 2= enter airway/above vocal folds/ejected Thin Liquid via teaspoon Chin tuck: Result: 1= does not enter airway Thin Liquid via teaspoon Chin tuck Trial 2: Result: 3= enters airways/above vocal folds/not ejected Thin Liquid via small single sip: cup Chin tuck: Result: 5= enters airways/contacts vocal folds/not ejected Oral Phase Labial Seal: No Labial Escape Tongue Control During Bolus Hold: Posterior escape of greater than half of bolus Bolus Preparation/Mastication: Disorganized chewing/mashing with solid pieces of bolus unchewed (very small pieces of cookie un-chewed) Bolus Transport/Lingual Motion: Repetitive/disorganized tongue motion Oral Residue: Residue collection on oral structures Pharyngeal Phase Initiation of Pharyngeal Swallow: Bolus head at posterior laryngeal surgace of epiglottis (~50% OF MILDLY THICK LIQUID BY TSP IN THE LARYNGEAL VESTIBULE PRIOR TO INITIATION OF THE PHARYNGEAL SWALLOW.) Soft Palate Elevation: Trace column of contrast/air between soft palate and pharyngeal wall Laryngeal Elevation: Partial superior movement thyroid cart/partial apprx aryt- epig petiole Anterior Hyoid Excursion: Partial anterior movement Epiglottic Movement: Partial inversion Laryngeal Vestibule Closure at Height of Swallow: Incomplete; narrow column of air/contrast in laryngeal vestibule Pharyngeal Stripping Wave: Present - diminished (minimal) Pharyngoesophageal Segment Opening: Minimal distension and minimal duration; marked obstruction of flow Tongue Base Retraction: Wide column of contrast between tongue base & post. pharyngeal wall Pharyngeal Residue: Majority of contrast within or on pharyngeal structures Esophageal Phase Esophageal Clearance: Esophageal retention Diagnosis/Impression Diagnosis: Mod-sev oropharyngeal dysphagia R13.12; Pharyngoesophageal dysphagia R13.14 MBS Impressions: The oral phase is marked by... -Decreased bolus control w/ posterior loss of ~1/2 of mildly thick liquids by tsp to the laryngeal vestibule prior to swallow onset resulting in aspiration during the swallow. -Lingual pumping for A-P transport. -Mild oral residue, which cleared w/ multiple swallows as needed. -Small pieces of cookie appeared un-chewed. The pharyngeal phase is marked by... -Delayed onset of the pharyngeal swallow most notable w/ mildly thick liquids via tsp. -Decreased pharyngeal motility w/ minimal pharyngeal stripping wave, poor TB retraction, and poor UES opening/duration of opening resulting in moderate- severe pharyngeal residues, which somewhat cleared w/ multiple swallows and liquid washes. -Decreased airway closure due to decreased laryngeal elevation, anterior hyoid excursion, and partial epiglottic inversion. Overt aspiration of thin liquids by tsp, mildly thick liquids by tsp, moderately thick liquids by cup. Silent post prandial aspiration of residues 2X during the study, possibly of moderately thickened liquid residues. The esophageal phase is marked by... -Poor UES opening/duration of opening. -Retention of barium in the middle and lower esophagus. Recommendations Diet: Puree Textures and Moderately Thick Liquids Comment: Intermittent cough and re-swallow Compensatory Strategies: Small Bites, Small Sips, Liquid by Teaspoon Only, Slow Rate, Multiple Swallows, Alternate bites/solids and sips/liquids and Sitting upright (during and 60min after m eal) Supervision: 1:1 Direct Supervision (Supervision at meals) Recommend Repeat Modified Barium Swallow: Yes (Repeat MBSS in 4-8 weeks after intensive oropharyngeal strengthening exercise program. Repeat MBSS sooner if pt undergoes GI intervention to improve UES opening/duration.) Need for Skilled Speech Therapy Services: Yes Comment: -Train the patient in strategies to decrease risk for aspiration. -Ongoing assessment of diet tolerance w/ close monitoring of respiratory status. If deemed appropriate by treating NETWORK SERVICES PROJECT MANAGER, consider implementation of a modified Kendrick Free Water Protocol w/ use of chin tuck w/ tsp sips of water. Additionally, if good adherence w/ use of chin tuck w/ thin liquids, would consider diet advancement to thin liquids via tsp (or bolus control cup) w/ chin tuck. -Train the patient in oropharyngeal exercise program: Lingual resistance, Lingual coordination, Effortful, Jinny, Fred, Shaker (if tolerated), Yawn stretch. Recommended Referrals: GI Consult (Pt would like this report faxed to Dr. Axel Marinelli. NETWORK SERVICES PROJECT MANAGER concerned w/ esophageal retention of barium, as well as poor UES opening/duration.) Education Completed: 1. Described result of evaluation., 2. Pt understands evaluation & agrees with goals and treatment plan. and 7. Pt requires further education on strategies & risks. Comment: NETWORK SERVICES PROJECT MANAGER called treating NETWORK SERVICES PROJECT MANAGER and RN at [facility] to educate in results and recommendations of MBSS. Status Active ST Patient: Active Contact Information [facility] Speech Therapy:: Soco Forbes M.A. [facility]-NETWORK SERVICES PROJECT MANAGER Speech-Language Pathologist [facility] [address] [place] [address] [email or web address] [phone]
== END 2024-12-23 23:59 | disposition home or self-care (01) ==
PROVIDERS: PCP Internal Medicine; Referring Provider Nurse Practitioner Adult Health; Visit Provider Nurse Practitioner Adult Health
DX: R13.12 Dysphagia, oropharyngeal phase (principal)
CPT/HCPCS: 74230; 92611

== ENCOUNTER → 2025-01-21 05:00 | Outpatient (REF) | payer MEDICARE, OTHER, SELFPAY ==
[2025-01-21 07:39] LABS: Mucous, Urine 0 SEEN /hpf (<or=2+); Squamous Epithelial Cells - UA 0 SEEN /hpf (0-5)
[2025-01-21 08:21] LABS: Hematocrit 41.6 % (40-54); Hemoglobin 13.5 g/dL (13.0-16.5); Mean Corp Hgb Conc 32.5 g/dL (32-36); Mean Corpuscular Volume 86.0 fL (80-94); Mean Platelet Vol. 10.5 fl (6.2-12.0); POSITIVE COUNT YES; Platelet Count 491 K/mm3 (150-450); RBC Distribution Width CV 15.2 % (11.6-14.6); RBC Distribution Width SD 47.8 fl (35.1-43.9); Red Blood Count 4.84 M/mm3 (4.6-6.2); White Blood Count 12.2 K/mm3 (4.4-11.0)
[2025-01-21 08:24] LABS: Anion Gap 11 (5-15); BUN 18 mg/dL (4-19); BUN/Creat Ratio 30.4 RATIO (10-20); Calcium,Total 9.6 mg/dL (7.6-11.0); Carbon Dioxide 27.7 mmol/L (21.0-32.0); Chloride 101 mmol/L (98-108); Glucose 94 mg/dL (70-99); Potassium 4.0 mmol/L (3.3-5.1)
[2025-01-21 08:27] LABS: Color, Urine Yellow (Yellow); Glucose, Dipstick Normal (Normal); Ketone-Dipstick Negative (Negative); Leukocyte Esterase-Dipstick 500 /ul (Negative); Nitrite-Dipstick Positive (Negative); Occult Blood-Urine 250 /ul (Negative); Protein-Dipstick 100 mg/dl (Negative); Specific Gravity, Urine 1.015 (1.002-1.030); Urine Bilirubin Dipstick Negative (Negative)
[2025-01-21 08:40] LABS: Red Blood Cells-Urine > 100 SEEN /hpf (0-5)
[2025-01-21 08:55] LABS: Scan Indicated on CBC? Y/N YES- FLAGS NOTED
== END ==
LOC: OLS.ACH 05:00
PROVIDERS: PCP Internal Medicine; Visit Provider Internal Medicine
DX: Z87.440 Personal history of urinary (tract) infections (principal)
CPT/HCPCS: 36415; 80048; 81001; 85027; 87077; 87086; 87088; 87186

== ENCOUNTER → 2025-02-22 | Outpatient (REF) | payer MEDICARE, OTHER, SELFPAY ==
[2025-02-23 08:02] LABS: Mucous, Urine 0 SEEN /hpf (<or=2+); Squamous Epithelial Cells - UA 0 SEEN /hpf (0-5)
[2025-02-23 08:13] LABS: Color, Urine Yellow (Yellow); Glucose, Dipstick Normal (Normal); Ketone-Dipstick Negative (Negative); Leukocyte Esterase-Dipstick 500 /ul (Negative); Nitrite-Dipstick Negative (Negative); Occult Blood-Urine 250 /ul (Negative); Protein-Dipstick 100 mg/dl (Negative); Specific Gravity, Urine 1.010 (1.002-1.030); Urine Bilirubin Dipstick Negative (Negative)
[2025-02-23 08:20] LABS: Triple Phosphate Crystals Ur 2+ /hpf (<or=1+)
[2025-02-23 08:22] LABS: Red Blood Cells-Urine 5-10 SEEN /hpf (0-5)
== END ==
LOC: OLS.ACH 16:05
PROVIDERS: PCP Internal Medicine; Visit Provider Internal Medicine
DX: R31.9 Hematuria, unspecified (principal)
CPT/HCPCS: 81001; 87077; 87086; 87088; 87186

== ENCOUNTER 2025-03-27 12:22 | Day surgery (SDC) | payer MEDICARE, OTHER, SELFPAY ==
--- NOTE | 2025-03-27 12:51 | PCM.HP.STD ---
HPI - General General Date of Admission: 03/27/25 Date of Service: 03/27/25 HPI Narrative VIRAJ CROOKS, is a 84 M who presents [ Chief Complaint: Dysphagia Patient referred from speech therapist for dysphagia. Patient had a modified barium swallow that showed retention in the middle and lower esophagus. Patient has had difficulty with swallowing progressively for at least a year. He endorses difficulty swallowing foods like meat and his pills. He does not have issues with swallowing liquids. Patient does endorse regurgitation of foods and pills sometimes a day later. He is currently on omeprazole 20 mg daily and denies heartburn. Patient was started on a thickened and pur?ed diet per speech therapy's recommendation. He is having speech therapy at least once per week but is unsure if this has been helpful to him or not. Patient has had many colonoscopies in the past but no history of EGD. [facility] Medical History Wears partial dentures Osteoarthritis Difficulty chewing Former smoker ESBL (extended spectrum beta-lactamase) producing bacteria infection Muscle weakness Obstructive sleep apnea Benign prostate hyperplasia Pulmonary fibrosis COPD (chronic obstructive pulmonary disease) Obesity Asthma Pulmonary HTN HTN (hypertension) GERD (gastroesophageal reflux disease) Major depression Chronic kidney disease Pulmonary disease Emphysema lung Hypothyroid Home Medications ?Medication ?Instructions ?Recorded ?Last Taken ?Type albuterol sulfate 90 mcg/actuation 2 puff inhalation Q6H PRN ASTHMA 03/18/23 Unknown History aerosol inhaler atorvastatin 10 mg tablet 10 mg PO QHS cholesterol 03/18/23 03/17/23 History carboxymethylcellulose sodium 0.5 1 drp EACH EYE DAILY PRN dry eye(s) 03/18/23 Unknown History % eye drops in a dropperette cyanocobalamin (vitamin B-12) 2,000 mcg PO DAILY suppliment 03/18/23 03/18/23 History 1,000 mcg capsule diclofenac sodium 1 % topical gel 2 g topical DAILY 03/18/23 03/18/23 History (Voltaren Arthritis Pain) ergocalciferol (vitamin D2) 1,250 1,250 mcg PO QWEEK supplement 03/18/23 Unknown History mcg (50,000 unit) capsule (Drisdol) finasteride 5 mg tablet 5 mg PO DAILY prostate 03/18/23 03/18/23 History fluticasone propionate 110 2 inh inhalation BID asthma 03/18/23 03/18/23 History mcg/actuation HFA aerosol inhaler (Flovent HFA) hydrochlorothiazide 25 mg tablet 25 mg PO DAILY water pill 03/18/23 03/17/23 History ipratropium bromide 42 mcg (0.06 2 spray intranasal DAILY 03/18/23 03/18/23 History %) nasal spray levothyroxine 50 mcg tablet 50 mcg PO DAILY thyroid 03/18/23 03/18/23 History loratadine 10 mg tablet 10 mg PO DAILY allergies 03/18/23 03/18/23 History (Allerclear) ondansetron 4 mg disintegrating 4 mg PO Q8H PRN nausea and vomiting 03/18/23 Unknown History tablet polyethylene glycol 3350 17 17 g PO DAILY laxative 03/18/23 03/18/23 History gram/dose oral powder (ClearLax) tramadol 50 mg tablet 50 mg PO Q8H PRN pain 03/18/23 Unknown History acetaminophen 325 mg tablet 650 mg (2 x 325 mg) PO Q6H PRN PRN 03/21/23 Unknown Rx Pain 1-10 Or Fever>100.7 #0 tabs tamsulosin 0.4 mg capsule 0.4 mg PO DAILY@0830 #0 caps 03/21/23 Unknown Rx azelastine 137 mcg (0.1 %) nasal 1 spray intranasal TID 01/21/25 Unknown History spray cholecalciferol (vitamin D3) 50 50 mcg PO QDAY 01/21/25 Unknown History mcg (2,000 unit) capsule pantoprazole 40 mg tablet,delayed 40 mg PO QDAY 01/22/25 Unknown History release sertraline 50 mg tablet 50 mg PO DAILY 03/25/25 Unknown History Allergy/AdvReac Type Severity Reaction Status Date / Time omeprazole Allergy Unknown PT UNSURE Verified 03/25/25 15:55 OF REACTION allopurinol Allergy PT UNSURE Verified 03/25/25 15:55 OF REACTION ciprofloxacin Allergy PT UNSURE Verified 03/25/25 15:55 OF REACTION erythromycin base Allergy PT UNSURE Verified 03/25/25 15:55 OF REACTION levofloxacin Allergy PT UNSURE Verified 03/25/25 15:55 OF REACTION paroxetine Allergy PT UNSURE Verified 03/25/25 15:55 OF REACTION Penicillins Allergy PT UNSURE Verified 03/25/25 15:55 OF REACTION Sulfa (Sulfonamide Allergy PT UNSURE Verified 03/25/25 15:55 Antibiotics) OF REACTION Tetracyclines Allergy PT UNSURE Verified 03/25/25 15:55 OF REACTION Social History history of recent travel: No sexually active: No Smoking Status: Former smoker substance use type: does not use ROS Constitutional Constitutional: Denies fatigue, fever(s), poor appetite, weight gain or weight loss Gastrointestinal Gastrointestinal: Denies belching, bloating, change in bowel habits, change in stool character, chewing difficulty, coffee ground emesis, constipation, cramping, diarrhea, dyspepsia, dysphagia, early satiety, excessive flatus, fecal incontinence, heartburn, hematemesis, hematochezia, hemorrhoids, loose stools, melena, nausea, odynophagia, rectal bleeding, tenesmus, vomiting or weight changes Physical Exam Const alert, oriented x3, no apparent distress and healthy appearing General Appearance: cooperative GI normal to inspection, nondistended, normoactive bowel sounds, soft to palpation, non-tender and non-distended Percussion: normal to percussion Rectal Exam: deferred Assessment & Plan Assessment/Plan (1) Dysphagia: PLAN: Assessment and Plan Assessment and Plan (1) Dysphagia: Status: Acute Plan: Viraj is an 84-year-old male patient here today for evaluation of dysphagia after referral from his speech-language pathologist. Patient with a progressive history of dysphagia to solids. He underwent modified barium swallow which showed retention in the lower and middle esophagus and poor upper esophageal sphincter opening/duration of opening. Patient also with oropharyngeal dysphagia and recommendation for thickened liquids and pur?ed diet. Patient has been eating this diet with no difficulties. I recommended continuing RESEARCH AIDE recommendations and therapy. I increased his omeprazole to 40 mg daily. If symptoms persist will consider upper endoscopy however patient prefers to avoid procedures at this time. - Continue speech therapy and RESEARCH AIDE recommendations - Increase omeprazole to 40 mg daily - Consider EGD with dilation - Follow-up as needed Medications: New omeprazole 40 mg PO QDAY 30 caps 2RF ]
[2025-03-27 13:05] VITALS: BP 150/70; PULSE 78; RESP 20; TEMP 37.3; O2SAT 98; BMI 25.0
[2025-03-27] MEDS: Lactated Ringers 1,000 ML 15 ML IV (13:19)
[2025-03-27 13:21] VITALS: BP 150/70; PULSE 78; RESP 20; TEMP 37.3; O2SAT 98
--- NOTE | 2025-03-27 13:21 | PCM.PRE.AN2 ---
ASA Classification* ASA Classification ASA Classification: 2 Assessment & Plan Anesthesia* Anesthesia Assessment Anesthesia Assessment: Discussed sedation and/or anesthesia options, risks, benefits, and alternatives with patient/parents/legal guardian/POA. Questions invited. The patient/parents/legal guardian/POA seems to understand and agrees to proceed with anesthesia plan. Reviewed the physical assessment, medical history, allergy history and patient home medications list prior to surgery/procedure/anesthetic and documented any changes. Performed airway and anesthesia risk assessments. Anesthesia Type Anesthesia Type: MAC Anesthesia Focused Assessment* Temperature: 99.1 F Pulse Rate: 78 Blood Pressure: 150/70 Respiratory Rate: 20 Pulse Ox: 98 Airway Assessment Mouth opens: >3 cm Mallampati Score: II Labs Anesthesia Preop lab: CBC WBC, (4.4-11.0) 12.2 K/mm3 H 01/21/25, 05:15 RBC, (4.6-6.2) 4.84 M/mm3 01/21/25, 05:15 Hgb, (13.0-16.5) 13.5 g/dL 01/21/25, 05:15 Hct, (40-54) 41.6 % 01/21/25, 05:15 Plt Count, (150-450) 491 K/mm3 H 01/21/25, 05:15 CHEMISTRY Potassium, (3.3-5.1) 4.0 mmol/L 01/21/25, 05:15 Sodium, (133-145) 139 mmol/L 01/21/25, 05:15 Magnesium, (1.6-2.6) 1.6 mg/dL 04/14/24, 05:30 BUN, (4-19) 18 mg/dL 01/21/25, 05:15 Creatinine, (0.70-1.20) 0.60 mg/dL L 01/21/25, 05:15 Glucose, (70-99) 94 mg/dL 01/21/25, 05:15 TSH, (0.358-3.740) 2.230 uIU/mL 04/14/24, 05:30 COAG Pre-Assessment Diagnosis/Proposed Procedure Planned Operative Procedure(s): egd Anesthesia History 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 When Was Last Pacemaker Check QUESTION #4 FULL TEXT: You/Your Family Experience fever (hyperthermia) with Anesthesia Last Oral Intake Last Oral intake: Last Oral Intake NPO since 00:00 03/27/25 13:05 Meds taken in AM with sips of water? Meds patient instructed to take am of surgery PONV PONV - sinter machine operator: PONV - sinter machine operator Female No 03/25/25 16:02 HX of Motion Sickness No 03/25/25 16:02 HX of N/V After Surgery No 03/25/25 16:02 Non-Smoker Yes 03/25/25 16:02 Duration of Surgery greater No 03/25/25 16:02 than 60 minutes Number of Risk Factors 1 03/25/25 16:02 PONV Score Low Risk 03/25/25 16:02 Height & Weight Height & Weight: Anesthesia: Height & Weight Height 5 ft 03/27/25 13:05 Weight: 58.06 kg 03/27/25 13:05 Body Mass Index (BMI) 25.0 03/27/25 13:05 Respiratory Assessment Respiratory Assessment - sinter machine operator: Respiratory Tract Infection Hx - sinter machine operator Hx Respiratory Tract Infection STOP Sleep Apnea STOP Sleep Apnea - sinter machine operator: STOP Sleep Apnea - sinter machine operator Hx Hypertension No 03/25/25 16:02 Hx Sleep Apnea Yes 03/25/25 16:02 CPAP No 03/25/25 16:02 BIPAP No 03/25/25 16:02 Do you snore loudly (louder than talking or can be heard Do you often feel tired/ fatigued/ sleepy during daytime? Has anyone observed you stop breathing during sleep? STOP Results Positive 03/25/25 16:02 QUESTION #5 FULL TEXT : Do you snore loudly (louder than talking or can be heard through closed doors)? Tobacco Use History Tobacco Use History - sinter machine operator: Tobacco Use History - sinter machine operator Tobacco Use Smoking Status Former smoker 03/25/25 16:02 Hx Tobacco Use No 03/25/25 16:02 Years Smoking Packs Smoked per Day Smoking Cessation Date was No - quit smoking greater 03/25/25 16:02 within the last 15 years than 15 years ago Hx Smoking Cessation Date Hx Smoking Cessation Counseling Hematologic Medial History Hematologic Hx - sinter machine operator: Hematologic Medical Hx - certified ophthalmic assistant Hx of Blood Transfusion Hx of Transfusion in last 3 Months Date of Last Transfusion (if within last 3 months) Ever experience any problems with transfusion(s)? Specify any problems Hx of Preganancy in last 3 Months Nurse Filling Out Transfusion & Questions: Date: Time: Patient unable to answer at Yes 03/25/25 16:02 this time (ie. confused, unrespo /Reproduction History /Reproductive History - sinter machine operator: /Reproductive Hx- sinter machine operator Hx Now No 03/25/25 16:02 Gestational Age (in weeks): EDC: Hx Hx Para Hx Section SAB No 03/25/25 16:02 Does the father of the baby or his family experience fever w Father of the baby Malignant Hypertension history comment Active Medications Active Medications: Current Medications Generic Name Dose Route Start Last Admin Trade Name Freq PRN Reason Stop Dose Admin Lactated Ringer's 1,000 mls @ 15 mls/hr 03/27/25 12:30 03/27/25 13:19 IV 15 mls/hr .Q48H LUIS Administration PFSH Medical History Wears partial dentures Osteoarthritis Difficulty chewing Former smoker ESBL (extended spectrum beta-lactamase) producing bacteria infection Muscle weakness Obstructive sleep apnea Benign prostate hyperplasia Pulmonary fibrosis COPD (chronic obstructive pulmonary disease) Obesity Asthma Pulmonary HTN HTN (hypertension) GERD (gastroesophageal reflux disease) Major depression Chronic kidney disease Pulmonary disease Emphysema lung Hypothyroid Home Medications ?Medication ?Instructions ?Recorded ?Last Taken ?Type albuterol sulfate 90 mcg/actuation 2 puff inhalation Q6H PRN ASTHMA 03/18/23 Unknown History aerosol inhaler atorvastatin 10 mg tablet 10 mg PO QHS cholesterol 03/18/23 03/26/25 History carboxymethylcellulose sodium 0.5 1 drp EACH EYE DAILY PRN dry eye(s) 03/18/23 03/26/25 History % eye drops in a dropperette cyanocobalamin (vitamin B-12) 2,000 mcg PO DAILY suppliment 03/18/23 03/26/25 History 1,000 mcg capsule diclofenac sodium 1 % topical gel 2 g topical DAILY 03/18/23 03/26/25 History (Voltaren Arthritis Pain) ergocalciferol (vitamin D2) 1,250 1,250 mcg PO QWEEK supplement 03/18/23 03/26/25 History mcg (50,000 unit) capsule (Drisdol) finasteride 5 mg tablet 5 mg PO DAILY prostate 03/18/23 03/26/25 History fluticasone propionate 110 2 inh inhalation BID asthma 03/18/23 03/26/25 History mcg/actuation HFA aerosol inhaler (Flovent HFA) hydrochlorothiazide 25 mg tablet 25 mg PO DAILY water pill 03/18/23 03/26/25 History ipratropium bromide 42 mcg (0.06 2 spray intranasal DAILY 03/18/23 03/26/25 History %) nasal spray levothyroxine 50 mcg tablet 50 mcg PO DAILY thyroid 03/18/23 03/26/25 History loratadine 10 mg tablet 10 mg PO DAILY allergies 03/18/23 03/26/25 History (Allerclear) ondansetron 4 mg disintegrating 4 mg PO Q8H PRN nausea and vomiting 03/18/23 Unknown History tablet polyethylene glycol 3350 17 17 g PO DAILY laxative 03/18/23 03/26/25 History gram/dose oral powder (ClearLax) tramadol 50 mg tablet 50 mg PO Q8H PRN pain 03/18/23 03/26/25 History acetaminophen 325 mg tablet 650 mg (2 x 325 mg) PO Q6H PRN PRN 03/21/23 Unknown Rx Pain 1-10 Or Fever>100.7 #0 tabs tamsulosin 0.4 mg capsule 0.4 mg PO DAILY@0830 #0 caps 03/21/23 03/26/25 Rx azelastine 137 mcg (0.1 %) nasal 1 spray intranasal TID 01/21/25 03/26/25 History spray cholecalciferol (vitamin D3) 50 50 mcg PO QDAY 01/21/25 03/26/25 History mcg (2,000 unit) capsule pantoprazole 40 mg tablet,delayed 40 mg PO QDAY 01/22/25 03/26/25 History release sertraline 50 mg tablet 50 mg PO DAILY 03/25/25 03/26/25 History Allergy/AdvReac Type Severity Reaction Status Date / Time omeprazole Allergy Unknown PT UNSURE Verified 03/25/25 15:55 OF REACTION allopurinol Allergy PT UNSURE Verified 03/25/25 15:55 OF REACTION ciprofloxacin Allergy PT UNSURE Verified 03/25/25 15:55 OF REACTION erythromycin base Allergy PT UNSURE Verified 03/25/25 15:55 OF REACTION levofloxacin Allergy PT UNSURE Verified 03/25/25 15:55 OF REACTION paroxetine Allergy PT UNSURE Verified 03/25/25 15:55 OF REACTION Penicillins Allergy PT UNSURE Verified 03/25/25 15:55 OF REACTION Sulfa (Sulfonamide Allergy PT UNSURE Verified 03/25/25 15:55 Antibiotics) OF REACTION Tetracyclines Allergy PT UNSURE Verified 03/25/25 15:55 OF REACTION Social History history of recent travel: No sexually active: No Smoking Status: Former smoker substance use type: does not use Review of Systems (Anesthesia) ROS Narrative System reviewed and no additional complaints, except as documented.
--- NOTE | 2025-03-27 13:30 | EGD_PTH ---
PATIENT: VIRAJ CROOKS LOC: EN U#:[id number] AGE/SX: 84/M ROOM: RE03/27/[address]: Dr. Joo Brito DO : 1940 BED: DIS: 03/27/2025 SPEC #: [id number] RECD: 03/27/25 15:33 STATUS: HAILEY REQ #: [id number] ANJEL: 03/27/25 13:[address]: Joo Brito DEPT: SURGICAL PATHOLOGY RECD BY: Hanny Foley ENTERED: 03/30/25 09:25 SP TYPE: EGD BIOPSY MARLI DR: Dr. Castillo Ortiz Sr., DO Tissues: Gastric mucous membrane Procedures: Immunohistochemical Stains Surgery Specimen Level IV HEADER OPERATION: EGD with biopsies PRE-OP DIAGNOSIS: Dysphagia ADDENDUM TISSUE SUBMITTED: A- Gastric body biopsy ADDENDUM ADDENDUM ADDENDUM 04/01/2025 08:47 ADDENDUM 04/01/2025 08:47 ADDENDUM 04/01/2025 08:47 ADDENDUM 04/01/2025 08:47 ADDENDUM 04/01/2025 08:47 This addendum is to report the IHC for H pylori: A) IHC MICROSCOPIC DIAGNOSIS A. Stomach, body, biopsy: - Oxyntic mucosa with chronic gastritis. - IHC for H pylori is pending and will be reported in an addendum. MICROSCOPIC DESCRIPTION Slides are reviewed. GROSS DESCRIPTION A. Received in fixative is one container labeled with the patient's name and designated Gastric body biopsy. The specimen consists of multiple irregular fragments of kumar tissue that in aggregate measure 1.4 x 0.3 x 0.1 cm. The specimen is totally submitted in one cassette. IN 03/30/2025 CPT:[id number] ADDENDUM ADDENDUM ADDENDUM ADDENDUM 04/01/2025 08:47 ADDENDUM 04/01/2025 08:47 ADDENDUM 04/01/2025 08:47 ADDENDUM 04/01/2025 08:47 ADDENDUM 04/01/2025 08:47 This addendum is to report the IHC for H pylori: A) IHC
[2025-03-27 14:05] VITALS: BP 100/62; BP 150/70; PULSE 74; RESP 16; TEMP 36.9; O2SAT 93
--- NOTE | 2025-03-27 14:09 | PCM.POST.ANE ---
Anesthesia: Postop Eval I Current Vital Signs Temperature: 98.4 F Pulse Rate: 74 Blood Pressure: 100/62 Respiratory Rate: 16 Pulse Ox: 94 Oxygen Delivery Method: Room Air Assessment Airway patent: Yes Spontaneous unlabored respirations: Yes Mental status: Awake and Calm nausea: No Vomiting: No Anesthesia Complication: No Fluid Hydration Crystalloid volume administer (ml): 300 Total IV fluid infused: 300 Progress Note Anesthesia document: Postop Eval 1 completed: Yes
[2025-03-27 14:10] VITALS: BP 100/62; BP 150/70; BP 93/58; PULSE 72; PULSE 74; RESP 16; TEMP 36.9; O2SAT 93; O2SAT 94
--- NOTE | 2025-03-27 14:12 | OP.EGD_ITS ---
Patient Name: Doroteo Gong Procedure Date: 03/27/2025 1:45 PM Date of : 1940 Age: 84 Procedure: Upper GI endoscopy Indications: Epigastric abdominal pain, Indigestion, Dysphagia Providers: Joo Brito DO Referring MD: Castillo rOtiz Sr., Do Medicines: Monitored Anesthesia Care Patient Profile: This is an 84 year old male. Refer to note in patient chart for documentation of history and physical. Patient has symptoms of dysphagia with both liquids and solids. Complications: No immediate complications. Procedure: Pre-Anesthesia Assessment: - Prior to the procedure, a History and Physical was performed, and patient medications and allergies were reviewed. The patient is competent. The risks and benefits of the procedure and the sedation options and risks were discussed with the patient. All questions were answered and informed consent was obtained. Patient identification and proposed procedure were verified by the physician in the pre-procedure area. Mental Status Examination: alert and oriented. Airway Examination: normal oropharyngeal airway and neck mobility. Respiratory Examination: clear to auscultation. CV Examination: normal. Prophylactic Antibiotics: The patient does not require prophylactic antibiotics. Prior Anticoagulants: The patient has taken no anticoagulant or antiplatelet agents. ASA Grade Assessment: II - A patient with mild systemic disease. After reviewing the risks and benefits, the patient was deemed in satisfactory condition to undergo the procedure. The anesthesia plan was to use monitored anesthesia care (MAC). Immediately prior to administration of medications, the patient was re-assessed for adequacy to receive sedatives. The heart rate, respiratory rate, oxygen saturations, blood pressure, adequacy of pulmonary ventilation, and response to care were monitored throughout the procedure. The physical status of the patient was re-assessed after the procedure. After obtaining informed consent, the endoscope was passed under direct vision. Throughout the procedure, the patient's blood pressure, pulse, and oxygen saturations were monitored continuously. The Endoscope was introduced through the mouth, and advanced to the fourth part of the duodenum. Small bowel enteroscopy was deemed necessary. The upper GI endoscopy was accomplished without difficulty. The patient tolerated the procedure well. Scope In: 1:56:30 PM Scope Out: 2:00:31 PM Total Procedure Duration Time 0 hours 4 minutes 1 second Findings: A lot of bile and bile and mucus was seen in his oropharynx. Moderately severe esophagitis with no bleeding was found in the entire esophagus. Diffuse severe inflammation characterized by congestion (edema), erosions, erythema, friability and granularity was found in the entire examined stomach. Biopsies were taken with a cold forceps for histology. Biopsies were taken with a cold forceps for Helicobacter pylori testing. Verification of patient identification for the specimen was done. Estimated blood loss was minimal. Diffuse moderate inflammation characterized by erythema was found in the entire duodenum. Impression: - A lot of bile and bile and mucus was seen in his oropharynx. - Moderately severe reflux esophagitis with no bleeding. - Bile gastritis. Biopsied. - Bile duodenitis. Recommendation: - Discharge patient to home. - Resume previous diet. - Continue present medications. - Await pathology results. -Omeprazole 40 mg p.o. twice daily - Consider metoclopramide 5 mg p.o. 3 times daily - Consider Carafate 1 g p.o. twice daily Procedure Code(s): --- Professional --- 22312, Small intestinal endoscopy, enteroscopy beyond second portion of duodenum, not including ileum; with biopsy, single or multiple CPT copyright 2021 [employer]. All rights reserved. The codes documented in this report are preliminary and upon skein spooler review may be revised to meet current compliance requirements. Joo Brito DO 03/27/2025 2:12:00 PM This report has been signed electronically. Number of Addenda: 0 Note Initiated On: 03/27/2025 1:45 PM
--- NOTE | 2025-03-27 14:12 | OP.PROVAT_ITS ---
03/27/2025 Castillo Angel Cosby, Re : Upper GI endoscopy procedure for Doroteo Gong Dear Dr. Angel Simon. This procedure was performed on Thursday, March 27, 2025. My impressions and recommendations are as follows: Impressions : - A lot of bile and bile and mucus was seen in his oropharynx. - Moderately severe reflux esophagitis with no bleeding. - Bile gastritis. Biopsied. - Bile duodenitis. Recommendations : - Discharge patient to home. - Resume previous diet. - Continue present medications. - Await pathology results. -Omeprazole 40 mg p.o. twice daily - Consider metoclopramide 5 mg p.o. 3 times daily - Consider Carafate 1 g p.o. twice daily My findings are described in the full procedure note, which is enclosed. If I can be of further assistance, please feel free to contact me at . Sincerely, Joo Brito, 03/27/2025 2:12:00 PM This report has been signed electronically.
[2025-03-27 14:20] VITALS: BP 107/63; BP 150/70; PULSE 73; RESP 16; TEMP 36.6; O2SAT 93
--- NOTE | 2025-03-27 14:37 | PCM.POSTANE2 ---
Anesthesia Postop Eval I Sum Postop Eval Completion status Anesthesia document: Postop Eval 1 completed: Yes Anesthesia Postop Eval I Summary Anesthesia Postop Eval I Summary: Anesthesia Postop Eval I: Assessment Summary Airway patent Yes 03/27/25 14:10 [email or web address] Spontaneous unlabored Yes 03/27/25 14:10 [email or web address] respirations Mental status Awake,Calm 03/27/25 14:10 [email or web address] nausea No 03/27/25 14:10 [email or web address] Vomiting No 03/27/25 14:10 [email or web address] Anesthesia Postop Eval I: Fluid Summary Crystalloid volume administer 300 03/27/25 14:10 [email or web address] (ml) Colloids volume administered ( ml) Blood Product volume administered (ml) Total IV fluid infused 300 03/27/25 14:10 [email or web address] Anesthesia Postop Eval I: Summary Notes Anesthesia Complication No 03/27/25 14:10 [email or web address] Anesthesia Complication Comment: Post-operative progress note Anesthesia: Postop Eval II Evaluation Mental status: Awake Pain Level: 0 nausea: No Vomiting: No
[2025-03-27 15:20] VITALS: BP 150/70
--- NOTE | 2025-03-27 15:48 | SUR.PHASEII ---
verbal report called to [facility].
== END 2025-03-27 15:30 | disposition home or self-care (01) ==
LOC: EN 12:23 → AC 12:26
PROVIDERS: PCP Internal Medicine; Referring Provider Internal Medicine; Visit Provider Internal Medicine Gastroenterology
PROC: 0DJ08ZZ Inspection of Upper Intestinal Tract, Via Natural or Artificial Opening Endoscopic (ICD-10-PCS; CPT 43235; principal; 2025-03-27 13:25)
DX: R13.10 Dysphagia, unspecified (principal); J44.9 Chronic obstructive pulmonary disease, unspecified; N18.9 Chronic kidney disease, unspecified; Z79.51 Long term (current) use of inhaled steroids; Z87.891 Personal history of nicotine dependence; K29.80 Duodenitis without bleeding; K21.00 Gastro-esophageal reflux disease with esophagitis, without bleeding; I12.9 Hypertensive chronic kidney disease with stage 1 through stage 4 chronic kidney disease, or unspecified chronic kidney disease; Z79.899 Other long term (current) drug therapy; N40.0 Benign prostatic hyperplasia without lower urinary tract symptoms; E03.9 Hypothyroidism, unspecified; Z79.890 Hormone replacement therapy; K29.50 Unspecified chronic gastritis without bleeding
CPT/HCPCS: 44361; 88305; 88342; J2405